=== PATIENT | female | born 1960 | race Caucasian/White ===

== ENCOUNTER 2017-10-24 16:21 | Emergency (ER) | payer OTHER, SELFPAY ==
[2017-10-24 16:35] VITALS: BP 136/74; PULSE 64; RESP 20; TEMP 36.8; O2SAT 98; BMI 40.3
--- NOTE | 2017-10-24 16:42 | HMH.EDUTC ---
[facility] [place] Disposition Clinical Impression: Low back ache Qualifiers: Chronicity: unspecified Back pain laterality: midline Sciatica presence: without sciatica Qualified Code(s): M54.5 - Low back pain Disposition: Home, Self-Care Condition on Discharge: Good Additional Instructions: Follow up with family doctor if symptoms persist Go to ER if any bowel or bladder issues or trouble having bowel movement Go to ER if worsening of pain or any life threatening complaints REturn if needed Take medication as prescribed Heating pad as adivsed in clinic today Prescriptions: Cyclobenzaprine HCl [Flexeril 10mg tablet] 5 mg PO TID #15 tab Etodolac [Etodolac 200mg Cap] 200 mg PO Q6H PRN #20 cap PRN Reason: Moderate Pain Referrals: Terrell Ayala MD [Primary Care Provider] - Time of Disposition: 17:14 Medical Decision Making - Medical Records Medical records reviewed: Yes: I reviewed the patient's medical records. Vital Signs: 10/24/17 16:35 Temperature 98.2 F Temperature Source Temporal Artery Scan Pulse Rate [Right] 64 Respiratory Rate 20 Blood Pressure [Right Arm] 136/74 Blood Pressure Mean [Right Arm] 94 Blood Pressure Source [Right Arm] Automatic Cuff Blood Pressure Position [Right Arm] Sitting 02 Sat by Pulse Oximetry 98 Oxygen Delivery Method Room Air - Lab Data Lab Results 10/24/17 16:37: Influenza Type A Ag Negative, Influenza Type B Ag Negative 10/24/17 16:42: Urine Color Dark yellow, Urine Appearance Clear, Urine pH 5.5, Ur Specific [place] 1.025, Urine Protein Trace, Urine Glucose (UA) Negative, Urine Ketones Trace, Urine Blood Negative, Urine Nitrate Negative, Urine Bilirubin 1+ A, Urine Urobilinogen 0.2, Ur Leukocyte Esterase Negative - Timmy Inquiry Pt receiving controlled substance: No Timmy was queried for this patient: No - Reevaluation(s) Time: 17:03 Reevaluation #1: Recommended xray for lower back and patient refusing at this time state that she does not feel she needs a xray that it just feels like spasms States that if pain continues she will come back and get an xray if warranted. States that pain is better now and only hurts certain ways she moved [facility] [place] HPI - General Stated complaint: Feeling bad, back & leg pain Mode of Arrival: Ambulatory Source of Information: Patient Limitations: No Limitations Description of Symptoms (Recalled from Triage Doc. by RN): LOW BACK PAIN, LEGS ACHE HEENT Symptoms (Recalled from RN notes): Yes Resp Symptoms (Recalled from RN notes): No Skin Symptoms (Recalled from RN notes): No MS Symptoms (Recalled from RN notes): No Functional Status (Recalled from RN notes): N - History of Present Illness Provider Complaint: Patient state that she began having pain in her lower back earlier today States that she don't remember doing anything to hurt it. States that it is an achy like feeling in her back and legs States that she also feels achy all over. States that pain feels katerine like a muscle spasm. - Related Data Home Medications Medication Instructions Recorded Confirmed Aspirin 81 mg PO DAILY 10/24/17 10/24/17 Lisinopril [Lisinopril 10mg Tab] 10 mg PO DAILY 10/24/17 10/24/17 hydroCHLOROthiazide [HCTZ 25mg 25 mg PO DAILY 10/24/17 10/24/17 tab] Previous Rx's Medication Instructions Recorded Cyclobenzaprine HCl [Flexeril 10mg 5 mg PO TID #15 tab 10/24/17 tablet] Etodolac [Etodolac 200mg Cap] 200 mg PO Q6H PRN #20 cap 10/24/17 Allergies Allergy/AdvReac Type Severity Reaction Status Date / Time codeine [CODEINE] Allergy Mild Verified 10/24/17 16:44 - Worker's Comp Is this a Worker's Comp case?: No [facility] History I have reviewed the patient's past medical history: Yes - *Social History Alcohol Intake: never - Psychiatric History Expresses thoughts of harming self/others: None Suicide Plan Description: No Plan ROS Obtained: Yes All systems reviewed & no additional complaints - Musculoskeletal
--- NOTE | 2017-10-24 16:45 | ED_ITS ---
[facility] Disposition Clinical Impression: Low back ache Qualifiers: Chronicity: unspecified Back pain laterality: midline Sciatica presence: without sciatica Qualified Code(s): M54.5 - Low back pain Disposition: Home, Self-Care Condition on Discharge: Good Additional Instructions: Follow up with family doctor if symptoms persist Go to ER if any bowel or bladder issues or trouble having bowel movement Go to ER if worsening of pain or any life threatening complaints REturn if needed Take medication as prescribed Heating pad as adivsed in clinic today Prescriptions: Cyclobenzaprine HCl [Flexeril 10mg tablet] 5 mg PO TID #15 tab Etodolac [Etodolac 200mg Cap] 200 mg PO Q6H PRN #20 cap PRN Reason: Moderate Pain Referrals: Terrell Ayala MD [Primary Care Provider] - Time of Disposition: 17:14 Medical Decision Making - Medical Records Medical records reviewed: Yes: I reviewed the patient's medical records. Vital Signs: 10/24/17 16:35 Temperature 98.2 F Temperature Source Temporal Artery Scan Pulse Rate [Right] 64 Respiratory Rate 20 Blood Pressure [Right Arm] 136/74 Blood Pressure Mean [Right Arm] 94 Blood Pressure Source [Right Arm] Automatic Cuff Blood Pressure Position [Right Arm] Sitting 02 Sat by Pulse Oximetry 98 Oxygen Delivery Method Room Air - Lab Data Lab Results 10/24/17 16:37: Influenza Type A Ag Negative, Influenza Type B Ag Negative 10/24/17 16:42: Urine Color Dark yellow, Urine Appearance Clear, Urine pH 5.5, Ur Specific [place] 1.025, Urine Protein Trace, Urine Glucose (UA) Negative, Urine Ketones Trace, Urine Blood Negative, Urine Nitrate Negative, Urine Bilirubin 1+ A, Urine Urobilinogen 0.2, Ur Leukocyte Esterase Negative - Timmy Inquiry Pt receiving controlled substance: No Timmy was queried for this patient: No - Reevaluation(s) Time: 17:03 Reevaluation #1: Recommended xray for lower back and patient refusing at this time state that she does not feel she needs a xray that it just feels like spasms States that if pain continues she will come back and get an xray if warranted. States that pain is better now and only hurts certain ways she moved [facility] HPI - General Stated complaint: Feeling bad, back & leg pain Mode of Arrival: Ambulatory Source of Information: Patient Limitations: No Limitations Description of Symptoms (Recalled from Triage Doc. by RN): LOW BACK PAIN, LEGS ACHE HEENT Symptoms (Recalled from RN notes): Yes Resp Symptoms (Recalled from RN notes): No Skin Symptoms (Recalled from RN notes): No MS Symptoms (Recalled from RN notes): No Functional Status (Recalled from RN notes): N - History of Present Illness Provider Complaint: Patient state that she began having pain in her lower back earlier today States that she don't remember doing anything to hurt it. States that it is an achy like feeling in her back and legs States that she also feels achy all over. States that pain feels katerine like a muscle spasm. - Related Data Home Medications Medication Instructions Recorded Confirmed Aspirin 81 mg PO DAILY 10/24/17 10/24/17 Lisinopril [Lisinopril 10mg Tab] 10 mg PO DAILY 10/24/17 10/24/17 hydroCHLOROthiazide [HCTZ 25mg 25 mg PO DAILY 10/24/17 10/24/17 tab] Previous Rx's Medication Instructions Recorded Cyclobenzaprine HCl [Flexeril 10mg 5 mg PO TID #15 tab 10/24/17 tablet
[2017-10-24 16:49] LABS: Apearance,Urine Clear (Clear); Color,Urine Dark Yellow (Yellow)
[2017-10-24 16:50] LABS: Bilirubin,Urine 1+ (Negative); Blood, Urine Negative (Negative); Glucose,Urine (UA) Negative (Negative); Ketones,Urine TRACE (Negative); PH,Urine 5.5 (5.0-8.5); Protein,Urine Trace (Negative); Specific Gravity, Urine 1.025 (1.005-1.030)
[2017-10-24 16:51] LABS: UTC Leukocyte Esterase,Urine Negative (Negative); UTC Nitrate,Urine Negative (Negative); Urobilinogen,Urine 0.2 EU/dl (0.2)
[2017-10-24 16:51] LABS: UTC Influenza A Antigen Negative (Negative); UTC Influenza B Antigen Negative (Negative)
[2017-10-24 17:21] VITALS: BP 132/87; PULSE 88; RESP 18; TEMP 36.8
== END 2017-10-24 17:22 | disposition home or self-care (01) ==
PROVIDERS: Emergency Provider Nurse Practitioner; PCP Family Medicine
DX: M54.5 Low back pain (principal); R69 Illness, unspecified
CPT/HCPCS: 81003; 87804; 99202

== ENCOUNTER 2017-11-13 18:29 | Emergency (ER) | payer OTHER, SELFPAY ==
[2017-11-13 18:41] VITALS: BP 152/91; PULSE 88; RESP 18; TEMP 36.7; O2SAT 100; BMI 37.1
--- NOTE | 2017-11-13 18:46 | HMH.EDUTC ---
[facility] [place] Clinical Impression: URI (upper respiratory infection) Qualifiers: URI type: unspecified URI Qualified Code(s): J06.9 - Acute upper respiratory infection, unspecified Disposition: Home, Self-Care Condition on Discharge: Good Instructions: Sore Throat, DI for Nasal Congestion Additional Instructions: * Monitor Temp. Tylenol and/or Ibuprofen as needed. ER if fever is no less than 101 despite alternating Tylenol and Ibuprofen * Encourage fluids, water, Gatorade, powerade, pedialyte if infant/toddler/or child * Warm salt water gargles for throat irritation *Warm fluids *Sore throat lozenges *Sleep elevated *humidifier or vaporizer Lots of rest Increase fluids, water, Gatorade, powerade *Your throat swab was sent to lab for culture. Those results area typically sent to your primary care physician. Be sure to follow up in 2-3 days if no improvement so they can review those results and treat if necessary If you dont have primary care I recommend you get one, but in the mean time you will have to return to a walk in clinic Follow up IMMEDIATELY for new or worsening of symptoms OR no noticeable improvement over the next 48-72 hours. 911 immediately for any life threatening symptoms such as chest pain or difficulty breathing Referrals: Terrell Ayala MD [Primary Care Provider] - Time of Disposition: 18:59 Medical Decision Making - Medical Records Medical records reviewed: Yes: I reviewed the patient's medical records. Vital Signs: 11/13/17 18:41 Temperature 98.1 F Temperature Source Temporal Artery Scan Pulse Rate [Right] 88 Respiratory Rate 18 Blood Pressure [Right Arm] 152/91 Blood Pressure Mean [Right Arm] 111 02 Sat by Pulse Oximetry 100 Oxygen Delivery Method Room Air - Lab Data Lab results reviewed: Yes: I reviewed the patient's lab results. Lab Results 11/13/17 18:51: Strep Scn Rapid Clinic Negative Orders (Tests/Meds): ED MEDICATIONS Discontinued Medications Generic Name Dose Route Start Last Admin Trade Name Freq PRN Reason Stop Dose Admin Ceftriaxone Sodium 1 gm 11/13/17 18:52 11/13/17 18:59 Rocephin 1gm Vial IM 11/13/17 18:53 1 gm ONCE ONE Administration Lidocaine HCl 0 ml 11/13/17 18:52 11/13/17 18:59 Lidocaine 1% 10ml Mdv IM 11/13/17 18:53 2 ml ONCE ONE Administration Methylprednisolone Sodium Succinate 125 mg 11/13/17 18:52 11/13/17 18:59 Solu-Medrol 125mg/2ml Vial IM 11/13/17 18:53 125 mg ONCE ONE Administration ORDERS Category Date Time Status Strep Screen Confirmation Stat Micro 11/13/17 18:51 Received - Timmy Inquiry Pt receiving controlled substance: No Timmy was queried for this patient: No - Reevaluation(s) Time: 19:00 Reevaluation #1: Patient was given Rocephin injection, no signs of reaction patient ready for dc home [facility] [place]PI - General Stated complaint: sore throat Mode of Arrival: Ambulatory Source of Information: Patient Limitations: No Limitations Description of Symptoms (Recalled from Triage Doc. by RN): SORE THROAT HEENT Symptoms (Recalled from RN notes): Yes Resp Symptoms (Recalled from RN notes): No Skin Symptoms (Recalled from RN notes): No MS Symptoms (Recalled from RN notes): No Functional Status (Recalled from RN notes): N - History of Present Illness Provider Complaint: Patient state that she has been having sore throat on and off now for 2 weeks States that for the last 2 days it has continued to get worse State that her mother recently had surgery and she was worried that she may have strep throat so she wanted to come and get checked out. State that she has been having sinus drainage also - Related Data Home Medications Medication Instructions Recorded Confirmed Aspirin 81 mg PO DAILY 10/24/17 10/24/17 Lisinopril [Lisinopril 10mg Tab] 10 mg PO DAILY 10/24/17 10/24/17 hydroCHLOROthiazide [HCTZ 25mg 25 mg PO DAILY 10/24/17 10/24/17 tab] Previous Rx
--- NOTE | 2017-11-13 18:49 | ED_ITS ---
[facility] [place] Disposition Clinical Impression: URI (upper respiratory infection) Qualifiers: URI type: unspecified URI Qualified Code(s): J06.9 - Acute upper respiratory infection, unspecified Disposition: Home, Self-Care Condition on Discharge: Good Instructions: Sore Throat, DI for Nasal Congestion Additional Instructions: * Monitor Temp. Tylenol and/or Ibuprofen as needed. ER if fever is no less than 101 despite alternating Tylenol and Ibuprofen * Encourage fluids, water, Gatorade, powerade, pedialyte if infant/toddler/or child * Warm salt water gargles for throat irritation *Warm fluids *Sore throat lozenges *Sleep elevated *humidifier or vaporizer Lots of rest Increase fluids, water, Gatorade, powerade *Your throat swab was sent to lab for culture. Those results area typically sent to your primary care physician. Be sure to follow up in 2-3 days if no improvement so they can review those results and treat if necessary If you don? t have primary care I recommend you get one, but in the mean time you will have to return to a walk in clinic Follow up IMMEDIATELY for new or worsening of symptoms OR no noticeable improvement over the next 48-72 hours. 911 immediately for any life threatening symptoms such as chest pain or difficulty breathing Referrals: Terrell Ayala MD [Primary Care Provider] - Time of Disposition: 18:59 Medical Decision Making - Medical Records Medical records reviewed: Yes: I reviewed the patient's medical records. Vital Signs: 11/13/17 18:41 Temperature 98.1 F Temperature Source Temporal Artery Scan Pulse Rate [Right] 88 Respiratory Rate 18 Blood Pressure [Right Arm] 152/91 Blood Pressure Mean [Right Arm] 111 02 Sat by Pulse Oximetry 100 Oxygen Delivery Method Room Air - Lab Data Lab results reviewed: Yes: I reviewed the patient's lab results. Lab Results 11/13/17 18:51: Strep Scn Rapid Clinic Negative Orders (Tests/Meds): ED MEDICATIONS Discontinued Medications Generic Name Dose Route Start Last Admin Trade Name Freq PRN Reason Stop Dose Admin Ceftriaxone Sodium 1 gm 11/13/17 18:52 11/13/17 18:59 Rocephin 1gm Vial IM 11/13/17 18:53 1 gm ONCE ONE Administration Lidocaine HCl 0 ml 11/13/17 18:52 03/06/18 18:59 Lidocaine 1% 10ml Mdv IM 11/13/17 18:53 2 ml ONCE ONE Administration Methylprednisolone Sodium Succinate 125 mg 11/13/17 18:52 11/13/17 18:59 Solu-Medrol 125mg/2ml Vial IM 11/13/17 18:53 125 mg ONCE ONE Administration ORDERS Category Date Time Status Strep Screen Confirmation Stat Micro 11/13/17 18:51 Received - Timmy Inquiry Pt receiving controlled substance: No Timmy was queried for this patient: No - Reevaluation(s) Time: 19:00 Reevaluation #1: Patient was given Rocephin injection, no signs of reaction patient ready for dc home [facility] [place] HPI - General Stated complaint: sore throat Mode of Arrival: Ambulatory Source of Information: Patient Limitations: No Limitations Description of Symptoms (Recalled from Triage Doc. by RN): SORE THROAT HEENT Symptoms (Recalled from RN notes): Yes Resp Symptoms (Recalled from RN notes): No Skin Symptoms (Recalled from RN notes): No MS Symptoms (Recalled from RN notes): No Functional Status (Recalled from RN notes): N - History of Pr
[2017-11-13 18:56] LABS: UTC Strep Screen (Rapid) Negative (Negative)
[2017-11-13 19:00] VITALS: BP 152/91; PULSE 88; RESP 18; TEMP 36.7
== END 2017-11-13 19:06 | disposition home or self-care (01) ==
PROVIDERS: Emergency Provider Nurse Practitioner; PCP Family Medicine
DX: J06.9 Acute upper respiratory infection, unspecified (principal); I10 Essential (primary) hypertension; Z79.82 Long term (current) use of aspirin; Z88.6 Allergy status to analgesic agent
CPT/HCPCS: 87880; 96372; 99202

== ENCOUNTER 2017-11-21 09:51 | Emergency (ER) | payer OTHER, SELFPAY ==
[2017-11-21 10:02] VITALS: BP 111/68; PULSE 66; RESP 18; TEMP 36.7; O2SAT 96; BMI 37.1
--- NOTE | 2017-11-21 10:08 | HMH.EDUTC ---
[facility] [place] Clinical Impression: URI (upper respiratory infection) Qualifiers: URI type: unspecified URI Qualified Code(s): J06.9 - Acute upper respiratory infection, unspecified Disposition: Home, Self-Care Condition on Discharge: Good Instructions: DI for Cough -- Adult, Sore Throat, DI for Nasal Congestion Additional Instructions: * Monitor Temp. Tylenol and/or Ibuprofen as needed. ER if fever is no less than 101 despite alternating Tylenol and Ibuprofen * Encourage fluids, water, Gatorade, powerade, pedialyte if infant/toddler/or child * Warm salt water gargles for throat irritation *Warm fluids *Sore throat lozenges *Sleep elevated *humidifier or vaporizer Lots of rest Increase fluids, water, Gatorade, powerade *Flonase 2 sprays each nostril daily but may take 2-3 days to notice improvement with it Follow up IMMEDIATELY for new or worsening of symptoms OR no noticeable improvement over the next 48-72 hours. 911 immediately for any life threatening symptoms such as chest pain or difficulty breathing Prescriptions: Azithromycin [Z-Victor M 250mg Tab] 250 mg PO UD DOSE PK #6 tab Fluticasone Propionate [Flonase 50mcg nasal spray 16gm] 2 spr NS DAILY #1 bottle predniSONE [Prednisone 20mg Tab] 20 mg PO BID #10 tab Referrals: Terrell Ayala MD [Primary Care Provider] - Time of Disposition: 10:12 Medical Decision Making - Medical Records Medical records reviewed: Yes: I reviewed the patient's medical records. - Timmy Inquiry Pt receiving controlled substance: No Timmy was queried for this patient: No Vital Signs: 11/21/17 10:02 Temperature 98.1 F Temperature Source Temporal Artery Scan Pulse Rate [Right] 66 Respiratory Rate 18 Blood Pressure [Right Arm] 111/68 Blood Pressure Mean [Right Arm] 82 Blood Pressure Source [Right Arm] Automatic Cuff Blood Pressure Position [Right Arm] Sitting 02 Sat by Pulse Oximetry 96 Oxygen Delivery Method Room Air [facility] [place] HPI - General Stated complaint: sore throat swollen Mode of Arrival: Ambulatory Source of Information: Patient Limitations: No Limitations Description of Symptoms (Recalled from Triage Doc. by RN): sore throat x2 weeks HEENT Symptoms (Recalled from RN notes): Yes Resp Symptoms (Recalled from RN notes): No Skin Symptoms (Recalled from RN notes): No MS Symptoms (Recalled from RN notes): No Functional Status (Recalled from RN notes): N - History of Present Illness Provider Complaint: Patient states that she has been having sore throat, sinus drainage and cough States that she was seen a treated about 2 weeks ago and it got better then it returned and appears worse than it was State that she is having drainage in the back of her throat from sinuses that is worse at night State that it makes her cough. - Related Data Home Medications Medication Instructions Recorded Confirmed Aspirin 81 mg PO DAILY 10/24/17 11/21/17 Lisinopril [Lisinopril 10mg Tab] 10 mg PO DAILY 10/24/17 11/21/17 hydroCHLOROthiazide [HCTZ 25mg 25 mg PO DAILY 10/24/17 11/21/17 tab] Cyclobenzaprine HCl [Flexeril 10mg 5 mg PO TID 11/21/17 11/21/17 tablet] Previous Rx's Medication Instructions Recorded Etodolac [Etodolac 200mg Cap] 200 mg PO Q6H PRN #20 cap 10/24/17 Azithromycin [Z-Victor M 250mg Tab] 250 mg PO UD DOSE PK #6 tab 11/21/17 Fluticasone Propionate [Flonase 2 spr NS DAILY #1 bottle 11/21/17 50mcg nasal spray 16gm] predniSONE [Prednisone 20mg 20 mg PO BID #10 tab 11/21/17 Tab] Allergies Allergy/AdvReac Type Severity Reaction Status Date / Time codeine [CODEINE] Allergy Mild Verified 10/24/17 16:44 - Worker's Comp Is this a Worker's Comp case?: No [facility] History I have reviewed the patient's past medical history: Yes Medical History: Reports:: Hypertension - Social History Alcohol Intake: never - Psychiatric History Expresses thoughts of harming self/others: None Suicide Plan Description: No Plan JONAH Obtai
--- NOTE | 2017-11-21 10:11 | ED_ITS ---
[facility] [place] Disposition Clinical Impression: URI (upper respiratory infection) Qualifiers: URI type: unspecified URI Qualified Code(s): J06.9 - Acute upper respiratory infection, unspecified Disposition: Home, Self-Care Condition on Discharge: Good Instructions: DI for Cough -- Adult, Sore Throat, DI for Nasal Congestion Additional Instructions: * Monitor Temp. Tylenol and/or Ibuprofen as needed. ER if fever is no less than 101 despite alternating Tylenol and Ibuprofen * Encourage fluids, water, Gatorade, powerade, pedialyte if infant/toddler/or child * Warm salt water gargles for throat irritation *Warm fluids *Sore throat lozenges *Sleep elevated *humidifier or vaporizer Lots of rest Increase fluids, water, Gatorade, powerade *Flonase 2 sprays each nostril daily but may take 2-3 days to notice improvement with it Follow up IMMEDIATELY for new or worsening of symptoms OR no noticeable improvement over the next 48-72 hours. 911 immediately for any life threatening symptoms such as chest pain or difficulty breathing Prescriptions: Azithromycin [Z-Victor M 250mg Tab] 250 mg PO UD DOSE PK #6 tab Fluticasone Propionate [Flonase 50mcg nasal spray 16gm] 2 spr NS DAILY #1 bottle predniSONE [Prednisone 20mg Tab] 20 mg PO BID #10 tab Referrals: Terrell Ayala MD [Primary Care Provider] - Time of Disposition: 10:12 Medical Decision Making - Medical Records Medical records reviewed: Yes: I reviewed the patient's medical records. - Timmy Inquiry Pt receiving controlled substance: No Timmy was queried for this patient: No Vital Signs: 11/21/17 10:02 Temperature 98.1 F Temperature Source Temporal Artery Scan Pulse Rate [Right] 66 Respiratory Rate 18 Blood Pressure [Right Arm] 111/68 Blood Pressure Mean [Right Arm] 82 Blood Pressure Source [Right Arm] Automatic Cuff Blood Pressure Position [Right Arm] Sitting 02 Sat by Pulse Oximetry 96 Oxygen Delivery Method Room Air [facility] [place] HPI - General Stated complaint: sore throat swollen Mode of Arrival: Ambulatory Source of Information: Patient Limitations: No Limitations Description of Symptoms (Recalled from Triage Doc. by RN): sore throat x2 weeks HEENT Symptoms (Recalled from RN notes): Yes Resp Symptoms (Recalled from RN notes): No Skin Symptoms (Recalled from RN notes): No MS Symptoms (Recalled from RN notes): No Functional Status (Recalled from RN notes): N - History of Present Illness Provider Complaint: Patient states that she has been having sore throat, sinus drainage and cough States that she was seen a treated about 2 weeks ago and it got better then it returned and appears worse than it was State that she is having drainage in the back of her throat from sinuses that is worse at night State that it makes her cough. - Related Data Home Medications Medication Instructions Recorded Confirmed Aspirin 81 mg PO DAILY 10/24/17 11/21/17 Lisinopril [Lisinopril 10mg Tab] 10 mg PO DAILY 10/24/17 11/21/17 hydroCHLOROthiazide [HCTZ 25mg 25 mg PO DAILY 10/24/17 11/21/17 tab] Cyclobenzaprine HCl [Flexeril 10mg 5 mg PO TID 11/21/17 11/21/17 tablet] Previous Rx's Medication Instructions Recorded Etodolac [Etodolac 200mg Cap] 200 mg PO Q6H PRN #20 cap 10/24/17 Azithromycin [Z-Victor M 250mg Tab] 250 mg PO UD DOSE PK #6 tab 11/21/17 Fluticasone Propionate [Flonase 2 spr NS
[2017-11-21 10:27] VITALS: BP 111/68; PULSE 66; RESP 18; TEMP 36.7
== END 2017-11-21 10:29 | disposition home or self-care (01) ==
PROVIDERS: Emergency Provider Nurse Practitioner; PCP Family Medicine
DX: J06.9 Acute upper respiratory infection, unspecified (principal); I10 Essential (primary) hypertension; Z79.82 Long term (current) use of aspirin
CPT/HCPCS: 99201

== ENCOUNTER → 2018-01-22 09:35 | Outpatient (CLI) | payer OTHER, SELFPAY ==
--- NOTE | 2018-01-22 09:39 | XR_ITS ---
XR ankle wt bearing LT min 3V HISTORY: ITS.REASON: ankle pain ORDERING PHYSICIAN: Luci Cnuningham DPM PATIENT AGE: 57 years COMPARISON: 07/25/2017 FINDINGS: No fracture or dislocation. No lytic or blastic change. There is normal mineralization.. The joint spaces are well-preserved. No significant degenerative/arthritic changes. No erosive changes evident. There are hypertrophic changes of the mid to dorsally as seen on the previous foot exam of 02/21/2017 IMPRESSION: Negative ankle, no acute finding Hypertrophic changes of the midfoot
--- NOTE | 2018-01-22 09:39 | XR_ITS ---
XR ankle wt bearing RT min 3V HISTORY: ITS.REASON: ankle pain ORDERING PHYSICIAN: Luci Cunningham DPM PATIENT AGE: 57 years COMPARISON: 07/25/2017 FINDINGS: No fracture or dislocation. No lytic or blastic change. There is normal mineralization.. The joint spaces are well-preserved. No significant degenerative/arthritic changes. No erosive changes evident. Faint calcification is present at the tip of the lateral malleolus and may be due to old fracture IMPRESSION: No change with no acute finding. Old avulsion fracture of the tip of the lateral malleolus
== END ==
PROVIDERS: PCP Family Medicine; Visit Provider Podiatrist
DX: M25.572 Pain in left ankle and joints of left foot (principal); M25.571 Pain in right ankle and joints of right foot
CPT/HCPCS: 73610

== ENCOUNTER → 2018-02-14 14:50 | Outpatient (CLI) | payer OTHER, SELFPAY ==
[2018-02-14 15:26] LABS: Blood Urea Nitrogen 20 mg/dL (7-18); Creatinine,Serum 0.83 mg/dL (0.55-1.02); Estimated Glomerular Filt Rate 70 ml/min (>60); GFR (African American) 85 ML/MIN (>60)
== END ==
PROVIDERS: Visit Provider Podiatrist
DX: M25.571 Pain in right ankle and joints of right foot (principal); G89.29 Other chronic pain
CPT/HCPCS: 36415; 82565; 84520

== ENCOUNTER → 2018-02-15 07:49 | Outpatient (CLI) | payer OTHER, SELFPAY ==
--- NOTE | 2018-02-15 07:50 | MR_ITS ---
MR ankle RT wo/w con Ordering Physician: Luci Cunningham DPM Patient Age: 57 years: Female HISTORY: ITS.REASON: pain, talus OCD Chronic right ankle pain. Previous avulsion fracture to the lateral malleolus. Grinding pain where fracture. Pain and swelling inferior to the lateral malleolus. Symptoms 6 months. TECHNIQUE: Multiplanar multisequence imaging pre and postcontrast . Prohance contrast 17 mL used for the postcontrast fat suppression T1 sagittal coronal and axial image set COMPARISON :Plain films right ankle 01/22/2018 FINDINGS . Ankle mortise intact with normal relationships. Cartilage appears well maintained. The dome of the talus appears intact with no osteochondral defect or notable irregularity... The medial and lateral malleolus appear intact. At the lateral ankle the anterior talofibular ligament appears slightly thickened intact but with slight willard appearance. There may been old injury reflecting such.. This structure best seen on standard T1 and STIR images. Minimal edema inflammation just inferior to the tip of the lateral malleolus. Anterior tibiofibular ligament minimal believe intact.. Corresponding posterior talofibular & tibiofibular ligaments intact. . Peroneus brevisand longus remain intact,. Note scant fluid or edema of the lateral margin of the distal calcaneus and adjacent to the peroneus longus tendon returns beneath the foot. Nonspecific but can reflect some mild inflammation here. Otherwise note minimal focal fluid collection is seen along the posterior margin the ankle overlying the posterior process of the talus . This likely reflects extension of a small joint effusion. Fluid also tracking to the posterior subtalar joint. There is also a small fluid collection of the anterior lateral aspect of the joint, along the lateral neck of the talus axial image 12... This requires correlation... Also seen on sagittal image 18 where fluid collection measures 17 mm height x 11 mm wide nonspecific is patient focally tender here. The subtalar joint appears intact with only some scant fluid at its lateral aspect, angle ofgissane region.. Sagittal slice 18 Other joints appear fairly well-maintained as well with tarsals appearing satisfactory and no remarkable arthritic features. Postcontrast images show no prominent findings. There may be some very subtle enhancement about the tip of the lateral malleolus site of old sprain or impossible avulsion tip lateral malleolus. .. IMPRESSION The ankle mortise and dome of talus appear satisfactory and intact. No osteochondral defect. Cartilage & joint space maintained Only very subtle edema and and perhaps very subtle enhancement about tip lateral malleolus may reflect site of old injury The anterior talofibular ligament appears mildly thickened and slightly grainy in appearance which may reflect old injury/sprain . minor observations discussed above, require correlation: ... Small fluid collection is seen at the posterior margin the joint about the posterior process the talus. ... Also focal fluid collection along the lateral neck of the talus....Scant fluid lateral subtalar joint
== END ==
PROVIDERS: PCP Family Medicine; Visit Provider Podiatrist
DX: M89.8X7 Other specified disorders of bone, ankle and foot (principal)
CPT/HCPCS: 73723; A9576

== ENCOUNTER → 2018-04-12 11:18 | Outpatient (CLI) | payer OTHER, SELFPAY ==
[2018-04-18 06:55] LABS: Antinuclear Antibodies, IFA Negative (.)
== END ==
PROVIDERS: Visit Provider Pediatrics
DX: L56.4 Polymorphous light eruption (principal)
CPT/HCPCS: 36415; 86038

== ENCOUNTER → 2019-05-29 12:08 | Outpatient (CLI) | payer OTHER, SELFPAY ==
[2019-05-29 13:48] LABS: Hemoglobin A1C 6.1 % (0.0-7.0)
[2019-05-29 14:32] LABS: Alanine Aminotransferase 27 U/L (12-78); Albumin Level 3.9 gm/dL (3.4-5.0); Alkaline Phosphatase 71 U/L (46-116); Anion Gap 12.5 mEq/L (5-15); Aspartate Amino Transferase 18 U/L (15-37); Bilirubin,Total 0.3 mg/dL (0.2-1.0); Blood Urea Nitrogen 25 mg/dL (7-18); Calcium 9.4 mg/dL (8.5-10.1); Carbon Dioxide 30 mmol/L (21.0-32.0); Chloride 96 mmol/L (98-107); Creatinine,Serum 1.08 mg/dL (0.55-1.02); Estimated Glomerular Filt Rate 52 ml/min (>60); GFR (African American) 62 ML/MIN (>60); Globulin 3.9 gm/dl (1.3-3.2); Glucose 104 mg/dL (74-106); Potassium 4.5 mmoL/L (3.5-5.1); Sodium 134 mmol/L (136-145); Thyroid Stimulating Hormone 1.53 uIU/ml (0.358-3.740); Total Protein,Serum 7.8 gm/dL (6.4-8.2)
[2019-05-29 15:22] LABS: Basophils # 0.1 K/mm3 (0-0.2); Eosinophils # 0.1 K/mm3 (0.0-0.4); Eosinophils % 1.6 % (0.1-12.0); Hematocrit 40.8 % (37.0-47.0); Hemoglobin 13.1 g/dL (12.2-16.2); Lymphocytes # 2.4 K/mm3 (0.7-4.5); Lymphocytes % 35.3 % (10-50); Mean Corpuscular HGB Conc 32.1 g/dL (31.8-35.4); Mean Corpuscular Hemoglobin 27.9 pg (27.0-31.2); Mean Corpuscular Volume 87.1 fl (81-99); Mean Platelet Volume 7.6 fl (7.4-10.4); Monocytes # 0.4 K/mm3 (0.1-1.0); Monocytes % 5.5 % (1.7-9.3); Neutrophils # 3.9 K/mm3 (1.8-7.8); Neutrophils % 56.6 % (37.0-80.0); Platelet Count 356 K/mm3 (142-424); Red Blood Count 4.68 M/mm3 (4.20-5.40); Red Cell Distribution Width 13.3 % (11.5-17.5); White Blood Count 6.9 K/mm3 (4.8-10.8)
== END ==
PROVIDERS: Visit Provider Nurse Practitioner Family
DX: R19.7 Diarrhea, unspecified (principal); R19.4 Change in bowel habit; R14.0 Abdominal distension (gaseous); R12 Heartburn
CPT/HCPCS: 36415; 80053; 83036; 84443; 85025

== ENCOUNTER → 2019-06-04 12:05 | Outpatient (CLI) | payer OTHER, SELFPAY ==
[2019-06-04 12:10] LABS: Adenovirus F 40/41, stool Not Detected (NotDetected); Astrovirus Not Detected (NotDetected); Campylobacter Not Detected (NotDetected); Cryptosporidium Not Detected (NotDetected); Cyclospora Cayetanesis Not Detected (NotDetected); Entamoeba histolytica Not Detected (NotDetected); Enteroaggregative E coli Not Detected (NotDetected); Enteropathogenic E coli Not Detected (NotDetected); Enterotoxigenic E coli Not Detected (NotDetected); Giardia lamblia Not Detected (NotDetected); Norovirus Not Detected (NotDetected); Plesimonas Shigalloides, PCR Not Detected (NotDetected); Rotavirus A Not Detected (NotDetected); Salmonella, PCR Not Detected (NotDetected); Sapovirus Not Detected (NotDetected); Shiga-like toxin E coli Not Detected (NotDetected); Shigella Enterovasive E coli Not Detected (NotDetected); Vibrio Cholerae Not Detected (NotDetected); Vibrio, PCR Not Detected (NotDetected); Yersinia Entercolitica, PCR Not Detected (NotDetected)
[2019-06-04 16:01] LABS: Clostridium Difficile A/B, PCR Detected (NotDetected)
== END ==
PROVIDERS: Visit Provider Nurse Practitioner Family
DX: R14.0 Abdominal distension (gaseous) (principal); R19.4 Change in bowel habit; R12 Heartburn; R19.7 Diarrhea, unspecified; A04.72 Enterocolitis due to Clostridium difficile, not specified as recurrent
CPT/HCPCS: 87507

== ENCOUNTER → 2019-07-12 12:26 | Outpatient (CLI) | payer OTHER, SELFPAY | PROVIDERS: Visit Provider Nurse Practitioner Family | DX: R19.4 Change in bowel habit (principal); R19.7 Diarrhea, unspecified ==

== ENCOUNTER → 2019-07-18 12:15 | Outpatient (CLI) | payer OTHER, SELFPAY | PROVIDERS: Visit Provider Nurse Practitioner Family | DX: R19.7 Diarrhea, unspecified (principal); R19.4 Change in bowel habit | CPT/HCPCS: 87493 ==

== ENCOUNTER → 2019-07-21 14:18 | Outpatient (CLI) | payer SELFPAY ==
--- NOTE | 2019-07-21 14:20 | CT_ITS ---
PROCEDURE: CT HEART W CALCIUM SCORE CLINICAL HISTORY: suspected cad COMPARISON: No exams were available for comparison TECHNIQUE: Axial images obtained with sagittal and coronal reformats. All CT scans at the facility use one or more dose reduction, viz: automated exposure control, ma/kV adjustment per patient size (including targeted exams where dose is matched to indication, i.e. head), or iterative reconstruction technique. FINDINGS: The coronary artery calcium score is 2 indicating minimal plaque burden and low cardiovascular disease risk. Incidental findings include small hiatal hernia. IMPRESSION: Minimal plaque burden with low cardiovascular disease risk Dictated by: Walt Shaw MD 07/21/2019 15:01 Electronically signed by Walt Shaw MD in [place] 07/21/2019 15:01
== END ==
PROVIDERS: PCP Family Medicine; Visit Provider Internal Medicine Cardiovascular Disease
DX: Z13.6 Encounter for screening for cardiovascular disorders (principal)
CPT/HCPCS: 75571

== ENCOUNTER → 2019-07-25 11:07 | Outpatient (CLI) | payer OTHER, SELFPAY ==
--- NOTE | 2019-07-25 11:10 | MM_ITS ---
PROCEDURE: MM DIG SCREENING MAMM BI W/CAD CLINICAL INDICATION: SCREENING There is no personal or family history of breast cancer. There has been a previous cyst aspiration right breast and previous biopsy left breast both for benign findings. COMPARISON: DMSB DIG MAMM-SCREEN GRACIELA from 05/05/2015 DMSB DIG MAMM-SCREEN GRACIELA W/CAD from 04/05/2017 DMDXUAVL DIG MAMM-DX UNI A/VWS-LT W/CAD from 04/16/2017 TECHNIQUE: Standard CC and MLO images were obtained. R2 CAD reviewed. FINDINGS: Scattered fibroglandular densities are seen throughout both breasts. There are 2 biopsy clips right breast. There are few benign-appearing microcalcifications in each breast. There is a stable tiny nodular benign-appearing density outer quadrant right breast. There is no suspicious lesion and no suspicious microcalcifications. IMPRESSION: Fibrofatty parenchyma with no suspicious lesions seen BI-RAD Category: 2 Benign Finding(s) FOLLOW-UP: 1YR 1 Year Follow-up (A letter has been sent to the patient regarding results of the study.) Dictated by: Dr. Fantasma Sepulveda MD 07/28/2019 10:[address] Fantasma Sepulveda MD in [place] 07/28/2019 10:08
== END ==
PROVIDERS: PCP Family Medicine; Visit Provider Family Medicine
DX: Z12.31 Encounter for screening mammogram for malignant neoplasm of breast (principal)
CPT/HCPCS: 77067

== ENCOUNTER → 2019-09-18 08:22 | Outpatient (CLI) | payer OTHER, SELFPAY ==
--- NOTE | 2019-09-18 08:24 | XR_ITS ---
PROCEDURE: XR ANKLE WT BEARING RT MIN 3V CLINICAL INDICATION: foot pain COMPARISON: ANKL3 ANKLE-LT-3 VIEWS from 07/25/2017 ANKR3 ANKLE-RT-3 VIEWS from 07/25/2017 ANKWBR3 XR ankle wt bearing RT min 3V from 01/22/2018 FINDINGS: There are minimal osteoarthritic changes of the ankle joint with suggestion of an old small avulsion at the tip of the distal fibula. IMPRESSION: Chronic changes, no acute finding Dictated by: Walt Shaw MD 09/18/2019 14:39 Electronically signed by Walt Shaw MD in [facility] 09/18/2019 14:39
--- NOTE | 2019-09-18 08:24 | XR_ITS ---
PROCEDURE: XR FOOT WT BEARING RT 3V CLINICAL INDICATION: foot pain COMPARISON: FTL3 FOOT-LT-3 VIEWS from 03/23/2016 FTR3 FOOT-RT-3 VIEWS from 03/23/2016 FTL3 FOOT-LT-3 VIEWS from 02/21/2017 FTR3 FOOT-RT-3 VIEWS from 02/21/2017 FINDINGS: No fracture or dislocation. No lytic or blastic change. There is normal mineralization. There are osteoarthritic changes at the metatarsal tarsal joint space and at the talonavicular joint and navicular cuneiform joint as well as the calcaneocuboid joint. There is good alignment. Other findings:None. IMPRESSION: Mild osteoarthritic changes. Overall no significant change from 02/21/2017 Dictated by: Walt Shaw MD 09/18/2019 14:40 Electronically signed by Walt Shaw MD in [facility] 09/18/2019 14:40
--- NOTE | 2019-09-18 08:24 | XR_ITS ---
PROCEDURE: XR ANKLE WT BEARING LT MIN 3V CLINICAL INDICATION: foot pain COMPARISON: ANKL3 ANKLE-LT-3 VIEWS from 07/25/2017 ANKR3 ANKLE-RT-3 VIEWS from 07/25/2017 ANKWBR3 XR ankle wt bearing RT min 3V from 01/22/2018 FINDINGS: No fracture or dislocation. There is a small calcaneal spur. Nonspecific calcification noted involving the anterior distal leg soft tissues IMPRESSION: Small calcaneal spur otherwise negative left ankle Dictated by: Walt Shaw MD 09/18/2019 14:38 Electronically signed by Walt Shaw MD in [place] 09/18/2019 14:38
--- NOTE | 2019-09-18 08:24 | XR_ITS ---
PROCEDURE: XR FOOT WT BEARING LT 3V CLINICAL INDICATION: foot pain COMPARISON: FTL3 FOOT-LT-3 VIEWS from 03/23/2016 FTR3 FOOT-RT-3 VIEWS from 03/23/2016 FTL3 FOOT-LT-3 VIEWS from 02/21/2017 FTR3 FOOT-RT-3 VIEWS from 02/21/2017 FINDINGS: No fracture or dislocation. Mild osteoarthritic change at the 1st metatarsophalangeal joint. Osteoarthritis also noted at the tarsal metatarsal junction worse at the 2nd and 3rd MTT joint. There is pes planus with osteoarthritis of the navicular cuneiform joint with minimal superior translation of the cuneiforms. IMPRESSION: Osteoarthritis with pes planus Dictated by: Walt Shaw MD 09/18/2019 14:42 Electronically signed by Walt Shaw MD in [place] 09/18/2019 14:42
== END ==
PROVIDERS: PCP Family Medicine; Visit Provider Podiatrist
DX: M79.672 Pain in left foot (principal); M79.671 Pain in right foot; M25.572 Pain in left ankle and joints of left foot; M25.571 Pain in right ankle and joints of right foot
CPT/HCPCS: 73610; 73630

== ENCOUNTER 2019-12-23 19:15 | Emergency (ER) | payer OTHER, SELFPAY ==
[2019-12-23 19:30] VITALS: BP 159/72; PULSE 66; RESP 16; TEMP 36.6; O2SAT 99; BMI 37.1
--- NOTE | 2019-12-23 19:37 | CT_ITS ---
PROCEDURE: CT ABDOMEN PELVIS W CON CLINICAL INDICATION: abdominal pain Abdominal pain with severe nausea and vomiting COMPARISON: No exams were available for comparison TECHNIQUE: IV Contrast: 75ML OPTIRAY 350 Oral Contrast none Axial images obtained with sagittal and coronal reformats. All CT scans at the facility use one or more dose reduction, viz: automated exposure control, ma/kV adjustment per patient size (including targeted exams where dose is matched to indication, i.e. head), or iterative reconstruction technique. FINDINGS: LOWER THORAX: Atelectatic changes are present in the lung bases. There is mild cardiomegaly ABDOMEN & PELVIS: The liver, gallbladder, spleen, adrenal glands, pancreas, and kidneys have an unremarkable appearance. No evidence of appendicitis or diverticulitis.. There are scattered colonic diverticula. There are mildly distended fluid-filled small bowel loops. There are decompressed loops in the mid to distal ileum. The small bowel loops measure up to 2.7 cm. No significant amount air is evident in the small bowel. No pelvic mass or abnormal fluid collection. There is a small umbilical hernia which contains fat. There are degenerative changes in the lumbar spine IMPRESSION: There are mildly prominent fluid-filled small bowel loops in the mid and lower abdominal region with decompressed loops distally. The findings could be related to enteritis or mild ileus. Cannot exclude the possibility of partial small bowel obstruction. Follow-up is suggested. Dictated by: Walt Shaw MD 12/24/2019 06:29 Electronically signed by Walt Shaw MD in [place] 12/24/2019 06:29
[2019-12-23 19:41] LABS: Microscopic, Urine URINE MICROSCOPIC (MICROSCOPIC)
[2019-12-23 19:44] LABS: Basophils % 0.4 % (0.1-2.0); Eosinophils # 0.2 K/mm3 (0.0-0.4); Eosinophils % 1.4 % (0.1-12.0); Hematocrit 42.8 % (37.0-47.0); Hemoglobin 13.6 g/dL (12.2-16.2); Lymphocytes # 2.6 K/mm3 (0.7-4.5); Lymphocytes % 21.1 % (10-50); Mean Corpuscular HGB Conc 31.8 g/dL (31.8-35.4); Mean Corpuscular Hemoglobin 27.6 pg (27.0-31.2); Mean Corpuscular Volume 86.9 fl (81-99); Mean Platelet Volume 7.4 fl (7.4-10.4); Monocytes # 0.5 K/mm3 (0.1-1.0); Monocytes % 4.2 % (1.7-9.3); Neutrophils # 8.9 K/mm3 (1.8-7.8); Neutrophils % 72.9 % (37.0-80.0); Platelet Count 330 K/mm3 (142-424); Red Blood Count 4.92 M/mm3 (4.20-5.40); Red Cell Distribution Width 13.8 % (11.5-17.5); White Blood Count 12.2 K/mm3 (4.8-10.8)
[2019-12-23 19:47] LABS: Appearance,Urine CLEAR (Clear); Bilirubin,Urine Negative (Negative); Blood, Urine Negative (Negative); Color,Urine YELLOW (Yellow); Glucose,Urine (UA) Negative (Negative); Ketones,Urine Negative (Negative); Leukocyte Esterase,Urine Negative (Negative); Nitrate,Urine Negative (Negative); PH,Urine 6.5 (5.0-8.5); Protein,Urine Negative (Negative); Specific Gravity, Urine 1.025 (1.005-1.030); Urobilinogen,Urine 0.2 EU/dl (0.2)
[2019-12-23 19:51] LABS: Chloride 96 mmol/L (98-107); Sodium 136 mmol/L (136-145)
[2019-12-23 19:52] LABS: Potassium 4.1 mmoL/L (3.5-5.1)
[2019-12-23 19:53] LABS: Amylase 59 U/L (30-110)
[2019-12-23 19:54] LABS: Alanine Aminotransferase 27 U/L (12-78); Alkaline Phosphatase 67 U/L (38-126); Anion Gap 16.1 mEq/L (5-15); Aspartate Amino Transferase 26 U/L (14-36); Bilirubin,Total 0.3 mg/dl (0.2-1.3); Blood Urea Nitrogen 27 mg/dl (7-17); Carbon Dioxide 28 mmol/L (22.0-30.0); Creatinine Clearance Estimated 88 mL/min (50-200); Estimated Glomerular Filt Rate 50 ml/min (>60); GFR (African American) 61 ML/MIN (>60); Lipase 81 U/L (23-300)
[2019-12-23 19:55] LABS: Albumin Level 4.7 g/dl (3.5-5.0); Albumin/Globulin Ratio 1.5 (1.1-1.8); Calcium 9.8 mg/dl (8.4-10.2); Globulin 3.2 g/dL (1.3-3.2); Glucose 138 mg/dl (74-100); Total Protein,Serum 7.9 g/dl (6.3-8.2)
[2019-12-23 20:04] LABS: Bacteria,Urine Trace /lpf; Squamous Epithelial Cell,Urine Occasional #/hpf (0-5); WBC,Urine Occasional #/hpf (0-3)
[2019-12-23 20:17] VITALS: BP 150/68; PULSE 64; RESP 16; O2SAT 99
--- NOTE | 2019-12-23 20:41 | HMH.EDNVD ---
ED Disposition Clinical Impression: Abdominal pain Qualifiers: Abdominal location: right upper quadrant Qualified Code(s): R10.11 - Right upper quadrant pain Disposition: Home, Self-Care Condition on Discharge: Good Instructions: DI for Nausea -- Adult Additional Instructions: fluids and see pcp for more testing Referrals: Terrell Ayala MD [Primary Care Provider] - - Critical Care Critical Care Time: No Attestation: On 12/23/19, the high probability of a clinically significant, sudden or life threatening deterioration of the following system(s) required my full and direct attention, intervention and personal management. The time I documented below is in addition to time spent performing reported procedures but includes the following listed in this critical care notation. Medical Decision Making - Medical Records Medical records reviewed: Yes: I reviewed the patient's medical records. - Timmy Inquiry Pt receiving controlled substance: No Vital Signs: 12/23/19 19:30 Temperature 97.8 F Temperature Source Oral Pulse Rate [Right Brachial] 66 Respiratory Rate 16 Blood Pressure [Right Arm] 159/72 H Blood Pressure Mean [Right Arm] 101 Blood Pressure Source [Right Arm] Automatic Cuff Blood Pressure Position [Right Arm] Sitting 02 Sat by Pulse Oximetry 99 Oxygen Delivery Method Room Air - Lab Data Lab results reviewed: Yes: I reviewed the patient's lab results. Lab Results 12/23/19 19:25: Urine Color Yellow, Urine Appearance Clear, Urine pH 6.5, Ur Specific Olla 1.025, Urine Protein Negative, Urine Glucose (UA) Negative, Urine Ketones Negative, Urine Blood Negative, Urine Nitrate Negative, Urine Bilirubin Negative, Urine Urobilinogen 0.2, Ur Leukocyte Esterase Negative, Urine WBC Occasional, Ur Squamous Epith Cells Occasional, Urine Bacteria Trace 12/23/19 19:35: Amylase 59, Lipase 81 12/23/19 19:35: WBC 12.2 H, RBC 4.92, Hgb 13.6, Hct 42.8, MCV 86.9, MCH 27.6, MCHC 31.8, RDW 13.8, Plt Count 330, MPV 7.4, Neut % (Auto) 72.9, Lymph % (Auto) 21.1, Jackson % (Auto) 4.2, Eos % (Auto) 1.4, Baso % (Auto) 0.4, Neut # (Auto) 8.9 H, Lymph # (Auto) 2.6, Jackson # (Auto) 0.5, Eos # (Auto) 0.2, Baso # (Auto) 0.0 12/23/19 19:35: Sodium 136, Potassium 4.1, Chloride 96 L, Carbon Dioxide 28, Anion Gap 16.1 H, BUN 27 H, Creatinine 1.10 H, Estimated Creat Clear 88, Estimated GFR 50 L, Est GFR ( Amer) 61, Glucose 138 H, Calcium 9.8, Total Bilirubin 0.3, AST 26, ALT 27, Alkaline Phosphatase 67, Total Protein 7.9, Albumin 4.7, Globulin 3.2, Albumin/Globulin Ratio 1.5 Result diagrams: 12/23/19 19:35 12/23/19 19:35 Orders (Tests/Meds): ED MEDICATIONS Generic Name Dose Route Start Last Admin Trade Name Freq PRN Reason Stop Dose Admin Sodium Chloride 1,000 mls @ 999 mls/hr 12/23/19 19:45 12/23/19 19:41 Sod Chlor 0.9% 1000ml Bag IV 12/23/19 20:45 999 mls/hr .Q1H1M RAJ Administration Sodium Chloride 8 ml 12/23/19 20:21 Sodium Chloride 0.9% 10ml Vial IV 01/22/20 20:20 NEEDED PRN dilute pepcid Discontinued Medications Generic Name Dose Route Start Last Admin Trade Name Freq PRN Reason Stop Dose Admin Famotidine 20 mg 12/23/19 20:21 12/23/19 20:22 Pepcid 20mg/2ml Vial IV 12/23/19 20:22 20 mg ONCE ONE Administration Iohexol 75 ml 12/23/19 21:11 12/23/19 21:12 Rad-Omnipaque 350 100ml Bottle IV 12/23/19 21:12 75 ml ONCE ONE Administration Metoclopramide HCl 10 mg 12/23/19 20:21 12/23/19 20:22 Reglan 10mg/2ml Vial IVP 12/23/19 20:22 10 mg ONCE ONE Administration Ondansetron HCl 4 mg 12/23/19 19:35 12/23/19 19:41 Zofran 4mg/2ml Vial IV 12/23/19 19:36 4 mg ONCE ONE Administration Promethazine HCl 12.5 mg 12/23/19 20:20 12/23/19 20:22 Phenergan 25mg/Ml 1ml Vial IV 12/23/19 20:21 12.5 mg ONCE ONE Administration Sodium Chloride 25 ml 12/23/19 20:20 12/23/19 20:21 Sod Chlor 0.9% 25ml Bag IV 12/23/19 20:21 25 ml ONCE ON
--- NOTE | 2019-12-23 21:20 | US_ITS ---
PROCEDURE: US GALLBLADDER CLINICAL INDICATION: abdominal pain Abdominal pain and vomiting COMPARISON: No exams were available for comparison FINDINGS: Pancreas: Unremarkable/Not well seen Liver: Unremarkable. There is appropriate direction of blood flow within a non dilated portal vein. Right kidney: Unremarkable appearing. No hydronephrosis. Gallbladder: No stones are evident. There is no gallbladder wall thickening. Common duct is normal in diameter. IMPRESSION: Negative gallbladder ultrasound. No stones evident. Dictated by: Walt Shaw MD 12/24/2019 07:48 Electronically signed by Walt Shaw MD in [place] 12/24/2019 07:48
--- NOTE | 2019-12-23 21:20 | PC.NURSE ---
with patients permission, pt's sister was contacted for patient update.
[2019-12-23 21:30] VITALS: BP 150/68; PULSE 60; RESP 16; O2SAT 98
--- NOTE | 2019-12-23 21:50 | PC.NURSE ---
U/s at the bedside for gallbladder u/s
--- NOTE | 2019-12-23 22:35 | PC.NURSE ---
with patients permission, pt's sister was contacted to come pick up attendant patient
[2019-12-23 23:13] VITALS: BP 148/60; PULSE 62; RESP 16; TEMP 36.6; O2SAT 99
== END 2019-12-23 23:16 | disposition home or self-care (01) ==
PROVIDERS: Emergency Medicine; Emergency Provider Emergency Medicine; PCP Family Medicine
DX: R10.11 Right upper quadrant pain (principal); E11.65 Type 2 diabetes mellitus with hyperglycemia; Z79.84 Long term (current) use of oral hypoglycemic drugs; I10 Essential (primary) hypertension; F33.1 Major depressive disorder, recurrent, moderate; Z88.6 Allergy status to analgesic agent; Z79.899 Other long term (current) drug therapy
CPT/HCPCS: 74177; 76705; 80053; 81001; 82150; 83690; 85025; 96365; 96375; 99283; 99284; J2405; Q9967

== ENCOUNTER → 2020-01-21 13:00 | Outpatient (CLI) | payer OTHER, SELFPAY ==
[2020-01-22 14:16] LABS: Covid-19 Nasal PCR Sendout Lex NOT DETECTED
== END ==
PROVIDERS: Visit Provider Internal Medicine Gastroenterology
DX: Z03.818 Encounter for observation for suspected exposure to other biological agents ruled out (principal)
CPT/HCPCS: U0004

== ENCOUNTER → 2020-04-28 17:31 | Outpatient (CLI) | payer OTHER, SELFPAY | PROVIDERS: PCP Nurse Practitioner Family; Visit Provider Nurse Practitioner Family | DX: Z03.818 Encounter for observation for suspected exposure to other biological agents ruled out (principal) | CPT/HCPCS: U0003 ==

== ENCOUNTER → 2020-07-08 17:28 | Outpatient (CLI) | payer OTHER, SELFPAY | PROVIDERS: PCP Family Medicine; Visit Provider Family Medicine | DX: Z03.818 Encounter for observation for suspected exposure to other biological agents ruled out (principal) | CPT/HCPCS: U0003 ==

== ENCOUNTER → 2021-01-11 12:04 | Outpatient (CLI) | payer OTHER, SELFPAY ==
[2021-01-11 12:26] LABS: Basophils % 0.6 % (0.1-2.0); Eosinophils # 0.2 K/mm3 (0.0-0.4); Eosinophils % 3.1 % (0.1-12.0); Hematocrit 39.4 % (37.0-47.0); Hemoglobin 13.1 g/dL (12.2-16.2); Lymphocytes # 2.2 K/mm3 (0.7-4.5); Lymphocytes % 33.3 % (10-50); Mean Corpuscular HGB Conc 33.3 g/dL (31.8-35.4); Mean Corpuscular Hemoglobin 28.4 pg (27.0-31.2); Mean Corpuscular Volume 85.1 fl (81-99); Mean Platelet Volume 7.7 fl (7.4-10.4); Monocytes # 0.5 K/mm3 (0.1-1.0); Monocytes % 7.2 % (1.7-9.3); Neutrophils # 3.7 K/mm3 (1.8-7.8); Neutrophils % 55.8 % (37.0-80.0); Platelet Count 334 K/mm3 (142-424); Red Blood Count 4.63 M/mm3 (4.20-5.40); Red Cell Distribution Width 13.8 % (11.5-17.5); White Blood Count 6.7 K/mm3 (4.8-10.8)
--- NOTE | 2021-01-11 12:30 | ECG_ITS ---
APPROVED REPORT Exam: Resting ECG HR:54 bpm ECG Measurements Heart Rate 54 AXES ME 188 P 46 QRSd 84 QRS 79 QT 420 T 49 QTc 398 Conclusion Sinus bradycardia Otherwise normal ECG Electronically signed by : Santiago Marquez, 01/12/2021 16:58:57
[2021-01-11 12:59] LABS: Coronavirus 19 IgG Antibody Positive (Negative); Coronavirus 19 IgM Antibody Negative (Negative)
== END ==
PROVIDERS: Visit Provider Otolaryngology
DX: Z01.818 Encounter for other preprocedural examination (principal); Z20.822 Contact with and (suspected) exposure to COVID-19; L98.9 Disorder of the skin and subcutaneous tissue, unspecified
CPT/HCPCS: 36415; 85025; 86328; 93005

== ENCOUNTER 2021-01-13 07:06 | Day surgery (SDC) | payer OTHER, SELFPAY ==
[2021-01-13 07:19] VITALS: BP 133/76; PULSE 69; RESP 16; TEMP 36.9; O2SAT 93; BMI 40.3
[2021-01-13 08:17] VITALS: BP 147/62; PULSE 68; RESP 16; TEMP 36.5; O2SAT 95
--- NOTE | 2021-01-13 08:20 | P.OP_ITS ---
Date of procedure: 01/13/21 Pre-op Diagnosis:: 1. 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 Neoplasm right cheek 1.8 cm inferior Post-op Diagnosis:: same Procedure performed:: 1. Excision of neoplasm right cheek superior 2.5 cm with tissue rearrangement geometric plastic repair 2. Excision of neoplasm right cheek inferior 1.8 cm with simple repair Surgeon:: Alexandre Castellanos MD [employer]IAN:: Other (Bhupinder Roberson) Anesthesia: MAC Estimated blood loss (mL): 5 Operative findings:: same Operative note:: With the patient under MAC anesthesia the right side of the face was prepped and draped the eyes were protected with Steri-Strips the perilesional areas were infiltrated with a total of 5 cc of 2% lidocaine containing epinephrine.. The right superior cheek lesion was marked out it measured 2.5 cm, the dillon out was incised and the lesion was excised and submitted. Anterior and posterior incisions were made bleeding was stopped with bipolar cautery. Flaps were elevated and a tissue rearrangement geometric plastic repair was done with interrupted 5-0 nylon sutures. A Dermabond dressing was applied. The inferior right cheek lesion measured 1.8 cm. The dillon out was incised and the lesion was excised and submitted. Bleeding was stopped with bipolar cautery. A simple repair was done with interrupted 5-0 nylon sutures. A Dermabond dressing was applied and the dot dressings were applied. Patient was sent to recovery in good general condition. Condition: stable Disposition: PACU Complications:: none
[2021-01-13 08:27] VITALS: BP 154/69; PULSE 64; RESP 18; O2SAT 91
[2021-01-13 08:37] VITALS: BP 144/86; PULSE 64; RESP 16; O2SAT 92
[2021-01-13 08:47] VITALS: BP 151/80; PULSE 67; RESP 18; O2SAT 93
[2021-01-13 09:10] VITALS: BP 153/71; PULSE 65; RESP 18; TEMP 36.5; O2SAT 95
--- NOTE | 2021-01-13 13:19 | P.PN_ITS ---
[facility] Anesthesia Checklist - Patient Identification Patient Identification: Arm Band - Structural Data Admitted From: Home Planned Operative Procedure/s: Excision right cheek lesions x 2 Consent for Planned Operative Procedure(s) Verified: Yes Verified Documents: Surgical Consent, History and Physical - NPO Status Verified Time NPO: 00:00 - Additional verifications Anesthesia Reactions: No Hx Blood Transfusions: No Blood Transfusion Reaction: No - Airway Assessment C-Spine Mobility Assessed: Yes TMJ Mobility Assessed: Yes Dentition: Good Dentition - Neurological Assessment Level of Consciousness: Awake, Alert - Anesthesia Plan Anesthesia Risk discussed: Yes Anesthesia Plan: Verified ASA Class: II Anesthesia Type: MAC [facility] History Medical History: Reports:: Cancer (SKIN CANCER), Depression, Hypertension Denies:: Diabetes Mellitus Type 1, Diabetes Mellitus Type 2, Internal Pacemaker, MRSA, Seizures *Have you ever received a pneumonia vaccine?: No *Have you received a flu vaccine this season?: Yes Other Medical History: Reports: Arthritis. Denies: Blood Transfusion Reaction Anesthesia experience/problems:: None Laterality Cases: Left: Lumpectomy Other Surgeries: Yes: No Previous Surgery. No: Pacemaker Amputation: No Fractures: Yes (Nose,4 fingers) - *Social History Last grade of school completed: Advanced degree Smoking Status: Never smoker Alcohol Intake: current Alcohol Intake Frequency:: 0-2 drinks per day Substance Use Type: denies use *Occupational Status:: employed Housing: house Household Members: none *Travel in the last 8 weeks: None - Psychiatric History Pschychiatric History:: Reports:: Depression Family Hx:: Cancer, Hyperlipidemia, Hypertension, Stroke
[2021-01-13 13:23] LABS: POC Glucose,Bedside 102 (70-110)
== END 2021-01-13 09:10 | disposition home or self-care (01) ==
LOC: OR 07:07
PROVIDERS: PCP Family Medicine; Visit Provider Otolaryngology
PROC: (CPT 14040; principal; 2021-01-13 07:30)
DX: C44.329 Squamous cell carcinoma of skin of other parts of face (principal); R23.8 Other skin changes; F32.9 Major depressive disorder, single episode, unspecified; I10 Essential (primary) hypertension; M19.90 Unspecified osteoarthritis, unspecified site; Z87.39 Personal history of other diseases of the musculoskeletal system and connective tissue; Z80.9 Family history of malignant neoplasm, unspecified; Z82.49 Family history of ischemic heart disease and other diseases of the circulatory system; Z83.438 Family history of other disorder of lipoprotein metabolism and other lipidemia; Z82.3 Family history of stroke; Z79.82 Long term (current) use of aspirin; Z79.899 Other long term (current) drug therapy
CPT/HCPCS: 14040; 11442; 82962; 96374; 96375

== ENCOUNTER → 2021-02-16 16:50 | Outpatient (CLI) | payer OTHER, SELFPAY ==
--- NOTE | 2021-02-16 16:52 | MM_ITS ---
PROCEDURE INFORMATION: Exam: MG Screening 3D Mammography Exam date and time: 02/16/2021 4:52 PM Age: 60 years old Clinical indication: screening mammogram TECHNIQUE: Imaging protocol: Screening tomosynthesis and 2D mammography including computer-aided detection (CAD) when performed. COMPARISON: 1. MG MM DIG SCREENING MAMM BI W/CAD 07/25/2019 11:15 AM 2. MG DMDXUAVL DIG MAMM-DX UNI A/VWS-LT W/CAD 04/16/2017 2:08 PM 3. MG DMSB DIG MAMM-SCREEN GRACIELA W/CAD 04/05/2017 8:28 AM 4. MG DMSB DIG MAMM-SCREEN GRACIELA 05/05/2015 2:02 PM FINDINGS: MAMMOGRAPHY: Breast composition: There are scattered areas of fibroglandular density. Mass: None. Architectural distortion: There are several right-sided metallic biopsy clips. Calcifications: No new or suspicious calcifications are present Asymmetric density: No new or suspicious asymmetric density is present Skin thickening: None. Axillary adenopathy: None. IMPRESSION: No mammographic evidence of malignancy. Recommend annual screening mammography unless otherwise clinically indicated. ASSESSMENT: BI-RADS category 2: Benign
== END ==
PROVIDERS: PCP Family Medicine; Visit Provider Family Medicine
DX: Z12.31 Encounter for screening mammogram for malignant neoplasm of breast (principal)
CPT/HCPCS: 77063; 77067

== ENCOUNTER 2021-08-07 12:24 | Emergency (ER) | payer OTHER, SELFPAY ==
[2021-08-07 12:55] VITALS: BP 113/69; PULSE 69; RESP 19; TEMP 37.1; O2SAT 96; BMI 38.7
[2021-08-07 13:15] LABS: UTC Influenza A Antigen Negative (Negative)
[2021-08-07 13:16] LABS: UTC Influenza B Antigen Negative (Negative)
--- NOTE | 2021-08-07 13:22 | HMH.EDUTC ---
[facility] [place] Clinical Impression: Sinusitis Qualifiers: Sinusitis location: unspecified location Chronicity: unspecified Qualified Code(s): J32.9 - Chronic sinusitis, unspecified Disposition: Home, Self-Care Condition on Discharge: Good Instructions: Sinusitis, DI for Sinusitis, Amoxicillin and Clavulanic Acid Additional Instructions: *Monitor Temp, Over the counter Motrin or Tylenol as directed/as needed Tylenol every 4 hours and Motrin every 6 hours (as long as your family doctor has told you that you can take it) for fever or pain. and straight to ER if unable to lower temp less than 101.0 after medication given *Warm salt water gargles may help to soothe the throat *Throat Lozenges *Warm fluids like tea with honey may help to soothe the throat *Sleep elevated *Humidifier/Vaporizer *Flonase 2 sprays in each nostril daily but be aware that it may take 2-3 days before you notice improvement Take medication as prescribed Follow up IMMEDIATELY for new or worsening symptoms or no Noticeable improvement over the next 48-72 hours. 911 for difficulty breathing or swallowing Prescriptions: Amoxicillin/Potassium Clav [Augmentin 875-125 Tablet] 1 tab PO Q12H 7 Days #14 tab Transmission Status[id number] methylPREDNISolone [Medrol 4mg tab] 4 mg PO DIRECTED #21 tab Transmission Status: Pending to [id number] Referrals: Terrell Ayala MD [Primary Care Provider] - As needed Time of Disposition: 13:37 Medical Decision Making - Timmy Inquiry Pt receiving controlled substance: No Timmy was queried for this patient: No Vital Signs: 08/07/21 12:55 Temperature 98.7 F Temperature Source Oral Pulse Rate [Left Brachial] 69 Respiratory Rate 19 Blood Pressure [Left Arm] 113/69 Blood Pressure Mean [Left Arm] 83 Blood Pressure Source [Left Arm] Automatic Cuff Blood Pressure Position [Left Arm] Sitting 02 Sat by Pulse Oximetry 96 Oxygen Delivery Method Room Air - Lab Data Lab results reviewed: Yes: I reviewed the patient's lab results. Lab Results 08/07/21 13:00: Influenza Type A Ag Negative, Influenza Type B Ag Negative Medical Decision Narrative: Patient states that she has taken Augmentin and Medrol in the past without complications or reactions [facility] [place] - General Stated complaint: right ear ache, stiff neck, body aches Time Seen by Provider: 08/07/21 13:22 Mode of Arrival: Ambulatory Source of Information: Patient Limitations: No Limitations Description of Symptoms (Recalled from Triage Doc. by RN): PATIENT C/O RIGHT EAR ACHE, NASAL CONGESTION, AND BODY ACHES X 2 WEEKS. REPORTS SHE DID HAVE SOME NAUSEA AND VOMITING YESTERDAY. SHE TOOK AN AT HOME COVID TEST TODAY AND IT WAS NEGATIVE HEENT Symptoms (Recalled from RN notes): Yes Resp Symptoms (Recalled from RN notes): Yes Skin Symptoms (Recalled from RN notes): No MS Symptoms (Recalled from RN notes): No Functional Status (Recalled from RN notes): WNL - History of Present Illness Provider Complaint: Patient states that she has not felt well for about 2 weeks States that she has been having sinus pain and pressure along with pain in her right ear, sore scratchy throat, body aches, headache and chills States that she took an at home COVID test and it was negative States that she had vomiting and diarrhea on Sunday but not had any since States that she came in to get it checked - Related Data Home Medications Medication Instructions Recorded Confirmed Aspirin 81 mg PO DAILY 10/24/17 08/07/21 Nebivolol HCl [Bystolic] 5 mg PO DAILY 08/07/21 08/07/21 Sertraline HCl [Zoloft 50mg tablet] 50 mg PO DAILY 08/07/21 08/07/21 hydroCHLOROthiazide [HCTZ 25mg 25 mg PO DAILY 08/07/21 08/07/21 tab] lisinopriL [Lisinopril] 10 mg PO DAILY 08/07/21 08/07/21 Previous Rx's Medication Instructions Recorded Amoxicillin/Potassium Clav 1 tab PO Q12H 7 Days #14 tab 08/07/21 [Augmentin 875-125 Tablet] methylPRED
[2021-08-07 13:40] VITALS: BP 113/69; PULSE 69; RESP 19; TEMP 37.1; O2SAT 96
== END 2021-08-07 13:46 | disposition home or self-care (01) ==
PROVIDERS: Emergency Provider Nurse Practitioner; PCP Family Medicine
DX: J32.9 Chronic sinusitis, unspecified (principal); F33.1 Major depressive disorder, recurrent, moderate; I10 Essential (primary) hypertension; E11.9 Type 2 diabetes mellitus without complications; Z88.5 Allergy status to narcotic agent
CPT/HCPCS: 87804; 99202; G0463

== ENCOUNTER 2022-01-09 14:10 | Emergency (ER) | payer OTHER, SELFPAY ==
[2022-01-09 15:59] VITALS: BP 137/49; PULSE 65; RESP 18; TEMP 36.9; O2SAT 96; BMI 40.3
[2022-01-09 16:05] LABS: UTC Influenza A Antigen Negative (Negative); UTC Influenza B Antigen Negative (Negative)
--- NOTE | 2022-01-09 16:28 | HMH.EDUTC ---
[facility] [place] Disposition Clinical Impression: Viral syndrome Pharyngitis Qualifiers: Pharyngitis/tonsillitis etiology: unspecified etiology Qualified Code(s): J02.9 - Acute pharyngitis, unspecified Disposition: Home, Self-Care Condition on Discharge: Good Instructions: Influenza, DI for Influenza -- Adult Additional Instructions: Drink plenty of fluids. Take tylenol or ibuprofen for pain or fever. Take the medications as directed. Follow up with your regular doctor. GO TO THE ER FOR ANY WORSENING SYMPTOMS Prescriptions: Ondansetron [Zofran 4mg ODT] 4 mg PO Q8HP PRN #12 tab PRN Reason: Nausea Transmission Status: Received by [facility] Benzonatate [Benzonatate 100mg cap] 100 mg PO TIDP PRN #30 cap PRN Reason: Cough Transmission Status: Received by [facility] Oseltamivir Phosphate [Tamiflu 75mg Capsule] 75 mg PO BID #10 cap Transmission Status: Received by [facility] Referrals: Kely Booth PA [Primary Care Provider] - Forms: Work/School Release Time of Disposition: 17:19 Medical Decision Making - Medical Records Medical records reviewed: No: I reviewed the patient's medical records. - Timmy Inquiry Pt receiving controlled substance: No Vital Signs: 01/09/22 15:59 01/09/22 17:31 Temperature 98.4 F 98.4 F Temperature Source Oral Pulse Rate 65 Pulse Rate [Left] 65 Respiratory Rate 18 18 Blood Pressure 137/49 L Blood Pressure [Right Arm] 137/49 L Blood Pressure Mean [Right Arm] 78 02 Sat by Pulse Oximetry 96 - Lab Data Lab results reviewed: Yes: I reviewed the patient's lab results. Lab Results 01/09/22 15:46: Influenza Type A Ag Negative, Influenza Type B Ag Negative Orders (Tests/Meds): ED MEDICATIONS Discontinued Medications Generic Name Dose Route Start Last Admin Trade Name Freq PRN Reason Stop Dose Admin Methylprednisolone Sodium Succinate 125 mg 01/09/22 17:13 01/09/22 17:19 Methylprednisolone Sod Succ 125mg Vial IM 01/09/22 17:14 125 mg ONCE ONE Administration [facility] [place] HPI - General Stated complaint: flu exposure Time Seen by Provider: 01/09/22 16:28 Mode of Arrival: Ambulatory Source of Information: Patient Limitations: No Limitations Description of Symptoms (Recalled from Triage Doc. by RN): flu like symptoms - sore throat, ear ache,chills,body ache. started yesterday HEENT Symptoms (Recalled from RN notes): Yes Resp Symptoms (Recalled from RN notes): Yes Skin Symptoms (Recalled from RN notes): No MS Symptoms (Recalled from RN notes): No Functional Status (Recalled from RN notes): wnl - History of Present Illness Provider Complaint: She states that she has been exposed to influenza about 2 to 3 days ago. Today she started having body aches, chills, a scratchy sore throat. - Related Data Home Medications Medication Instructions Recorded Confirmed Aspirin 81 mg PO DAILY 10/24/17 08/07/21 Previous Rx's Medication Instructions Recorded Amoxicillin/Potassium Clav 1 tab PO Q12H 7 Days #14 tab 08/07/21 [Augmentin 875-125 Tablet] methylPREDNISolone [Medrol 4mg 4 mg PO DIRECTED #21 tab 08/07/21 tab] nebivolol 5 mg tablet 5 mg PO DAILY #90 tab 09/22/21 hydrochlorothiazide 25 mg tablet See Rx Instructions .ROUTE 01/02/22 .COMPLEX #90 tablet lisinopril 10 mg tablet See Rx Instructions .ROUTE 01/02/22 .COMPLEX #90 tablet sertraline 50 mg tablet See Rx Instructions .ROUTE 01/02/22 .COMPLEX #90 tab Benzonatate [Benzonatate 100mg 100 mg PO TIDP PRN #30 cap 01/09/22 cap] Ondansetron [Zofran 4mg ODT] 4 mg PO Q8HP PRN #12 tab 01/09/22 Oseltamivir Phosphate [Tamiflu 75 mg PO BID #10 cap 01/09/22 75mg Capsule] Allergies Allergy/AdvReac Type Severity Reaction Status Date / Time codeine [CODEINE] Allergy Mild Verified 01/09/22 16:04 - Worker's Comp Is this a Worker's Comp case?: No [facility] History - Hepatitis A Screen Attestation state
[2022-01-09 17:31] VITALS: BP 137/49; PULSE 65; RESP 18; TEMP 36.9
== END 2022-01-09 17:31 | disposition home or self-care (01) ==
PROVIDERS: Emergency Provider Nurse Practitioner Family; PCP Physician Assistant
DX: J02.9 Acute pharyngitis, unspecified (principal); B34.9 Viral infection, unspecified; E11.9 Type 2 diabetes mellitus without complications; I10 Essential (primary) hypertension; Z88.5 Allergy status to narcotic agent
CPT/HCPCS: 87804; 96372; 99213; G0463

== ENCOUNTER 2022-05-06 10:37 | Emergency (ER) | payer OTHER, SELFPAY ==
[2022-05-06 11:18] VITALS: BP 168/66; PULSE 68; RESP 16; TEMP 37.1; O2SAT 97; BMI 40.3
--- NOTE | 2022-05-06 12:00 | EXP.UTC ---
Discharge Plan Disposition Patient Disposition: Home, Self-Care Condition: Good Chief Complaint: Abdominal Pain Prescriptions Prescriptions: New omeprazole 40 mg capsule,delayed release(DR/EC) 40 mg PO DAILY Qty: 90 3RF promethazine 25 mg tablet 25 mg PO TID PRN (Reason: nausea and vomiting) Qty: 30 1RF No Action nebivolol 5 mg tablet 5 mg PO DAILY Qty: 90 3RF lisinopril 10 mg tablet See Rx Instructions .ROUTE .COMPLEX Qty: 90 4RF Dose Instruction: TAKE ONE TABLET BY MOUTH EVERY DAY Rx Instructions: TAKE ONE TABLET BY MOUTH EVERY DAY hydrochlorothiazide 25 mg tablet See Rx Instructions .ROUTE .COMPLEX Qty: 90 4RF Dose Instruction: TAKE ONE TABLET BY MOUTH EVERY DAY FOR FLUID Rx Instructions: TAKE ONE TABLET BY MOUTH EVERY DAY FOR FLUID sertraline 50 mg tablet See Rx Instructions .ROUTE .COMPLEX Qty: 90 4RF Dose Instruction: TAKE ONE TABLET BY MOUTH EVERY DAY FOR ANXIETY/DEPRESSION Rx Instructions: TAKE ONE TABLET BY MOUTH EVERY DAY FOR ANXIETY/DEPRESSION aspirin 81 MG tablet,chewable 81 mg PO DAILY methylprednisolone 4 MG tablet 4 mg PO DIRECTED Qty: 21 0RF Rx Instructions: Take as directed on package instructions amoxicillin-pot clavulanate 1 EACH tablet 1 tab PO Q12H 7 Days Qty: 14 0RF oseltamivir 75 MG capsule 75 mg PO BID Qty: 10 0RF ondansetron 4 MG tablet,disintegrating 4 mg PO Q8HP PRN (Reason: Nausea) Qty: 12 0RF benzonatate 100 MG capsule 100 mg PO TIDP PRN (Reason: Cough) Qty: 30 0RF Referrals Follow up/Referrals: Ede Phillips MD [Primary Care Provider] - See instructions Activity Restrictions/Add. Instructions Additional Instructions/Restrictions: We will try to get RUQ US Sunday morning Clinical Impressions Clinical Impression: Epigastric abdominal pain, Vomiting Discharge ED Provider: Kely Booth [facility] General Chief complaint: Abdominal Pain Stated complaint: gallbladder pain Mode of Arrival: Ambulatory Source of Information: Patient Limitations: No Limitations Time Seen by Provider: 05/06/22 11:55 Description of Symptoms (Recalled from Triage Doc. by RN): patient comes in with coplaints of heartburn, gas in her upper abdomen. patient thought it may be her gallbladder. pt states these episodes have been going on for a while, but have recently become more frequent. HEENT Symptoms (Recalled from RN notes): No Resp Symptoms (Recalled from RN notes): No Skin Symptoms (Recalled from RN notes): No MS Symptoms (Recalled from RN notes): No Functional Status (Recalled from RN notes): n/a History of Present Illness Provider Complaint: Patient presents with right upper quadrant pain, epigastric pain, heartburn, vomiting. Has had off and on for a year or two. Has had 5 or 6 episodes where she gets RUQ pain and vomits profusely. It does not seem to matter what she eats or if she doesn't eat. No fever. No diarrhea. Takes Tums almost daily Onset (ago): year(s) (2) Location: abdomen Radiation: flank (right) Severity: moderate Quality: stabbing and sharp Consistency: intermittent Relieving factors: none Exacerbating factors: none Associated symptoms: denies other symptoms Treatments prior to arrival: other (TUMS) Related Data Home Medications Medication Instructions Recorded Confirmed aspirin 81 mg chewable tablet 81 mg PO DAILY Heart disease 10/24/17 08/07/21 Previous Rx's Medication Instructions Recorded amoxicillin 875 mg-potassium 1 tab PO Q12H 7 days #14 tabs 08/07/21 clavulanate 125 mg tablet methylprednisolone 4 mg tablet 4 mg PO DIRECTED #21 tabs 08/07/21 nebivolol 5 mg tablet 5 mg PO DAILY Hypertension #90 tabs 09/22/21 hydrochlorothiazide 25 mg tablet See Rx Instructions .Route 01/02/22 .COMPLEX #90 tabs lisinopril 10 mg tablet See Rx Instructions .Route 01/02/22 .COMPLEX #90 tabs sertraline 50 mg tablet See Rx Instructions .Route
[2022-05-06 12:06] LABS: Basophils # 0.1 K/mm3 (0-0.2); Basophils % 1.7 % (0.1-2.0); Eosinophils # 0.1 K/mm3 (0.0-0.4); Eosinophils % 2.3 % (0.1-12.0); Hematocrit 42.4 % (37.0-47.0); Hemoglobin 13.6 g/dL (12.2-16.2); Lymphocytes # 1.8 K/mm3 (0.7-4.5); Lymphocytes % 27.6 % (10-50); Mean Corpuscular Hemoglobin 28.2 pg (27.0-31.2); Mean Corpuscular Volume 88.3 fl (81-99); Monocytes # 0.4 K/mm3 (0.1-1.0); Monocytes % 6.9 % (1.7-9.3); Neutrophils # 3.9 K/mm3 (1.8-7.8); Neutrophils % 61.6 % (37.0-80.0); Platelet Count 330 K/mm3 (142-424); Red Blood Count 4.81 M/mm3 (4.20-5.40); Red Cell Distribution Width 13.5 % (11.5-17.5); White Blood Count 6.4 K/mm3 (4.8-10.8)
[2022-05-06 12:17] LABS: Alanine Aminotransferase 24 U/L (12-78); Albumin Level 4.1 g/dl (3.5-5.0); Albumin/Globulin Ratio 1.3 (1.1-1.8); Alkaline Phosphatase 91 U/L (38-126); Amylase 65 U/L (30-110); Anion Gap 8.3 mEq/L (5-15); Aspartate Amino Transferase 28 U/L (14-36); Bilirubin,Total 0.2 mg/dl (0.2-1.3); Blood Urea Nitrogen 12 mg/dl (7-17); Calcium 9.5 mg/dl (8.4-10.2); Carbon Dioxide 32 mmol/L (22.0-30.0); Chloride 102 mmol/L (98-107); Creatinine Clearance Estimated 102 mL/min (50-200); Estimated Glomerular Filt Rate 84 ml/min (>60); GFR (African American) 102 ML/MIN (>60); Globulin 3.2 g/dL (1.3-3.2); Glucose 122 mg/dl (74-100); Lipase 62 U/L (23-300); Potassium 4.3 mmoL/L (3.5-5.1); Sodium 138 mmol/L (136-145); Total Protein,Serum 7.3 g/dl (6.3-8.2)
[2022-05-06 12:37] VITALS: BP 168/66; PULSE 68; RESP 16; TEMP 37.1
== END 2022-05-06 12:39 | disposition home or self-care (01) ==
PROVIDERS: Emergency Provider Physician Assistant; PCP Emergency Medicine
DX: R10.13 Epigastric pain (principal); R11.10 Vomiting, unspecified; Z79.899 Other long term (current) drug therapy; Z88.6 Allergy status to analgesic agent
CPT/HCPCS: 36415; 80053; 82150; 83690; 85025; 99212; G0463

== ENCOUNTER → 2022-05-22 09:35 | Outpatient (CLI) | payer OTHER, SELFPAY ==
--- NOTE | 2022-05-22 09:40 | US_ITS ---
FINAL REPORT CLINICAL HISTORY: RUQ pain COMPARISON: December 23, 2019 FINDINGS: Sonographic images of the right upper quadrant were obtained. The pancreas is partially obscured.The liver has an unremarkable appearance.There is sludge within the gallbladder without evidence of gallstones.There is no evidence of biliary ductal dilatation.The common duct measures 3 mm. Limited images of the right kidney are unremarkable. IMPRESSION: Sludge within the gallbladder. Otherwise unremarkable right upper quadrant ultrasound. Reviewed, Interpreted and Dictated by Kye Ochoa III, MD Transcribed by Vanessa Wiggins Authenticated and [facility]
== END ==
PROVIDERS: PCP Physician Assistant; Visit Provider Physician Assistant
DX: R10.11 Right upper quadrant pain (principal); R11.2 Nausea with vomiting, unspecified
CPT/HCPCS: 76705

== ENCOUNTER → 2023-02-07 23:12 | Outpatient (CLI) | payer OTHER, SELFPAY ==
[2023-02-07 13:36] LABS: Basophils % 0.6 % (0.1-2.0); Eosinophils # 0.1 K/mm3 (0.0-0.4); Eosinophils % 1.7 % (0.1-12.0); Hematocrit 41.5 % (37.0-47.0); Hemoglobin 13.5 g/dL (12.2-16.2); Lymphocytes # 2.1 K/mm3 (0.7-4.5); Lymphocytes % 32.6 % (10-50); Mean Corpuscular HGB Conc 32.6 g/dL (31.8-35.4); Mean Corpuscular Hemoglobin 28.2 pg (27.0-31.2); Mean Corpuscular Volume 86.4 fl (81-99); Mean Platelet Volume 7.8 fl (7.4-10.4); Monocytes # 0.5 K/mm3 (0.1-1.0); Monocytes % 6.8 % (1.7-9.3); Neutrophils # 3.8 K/mm3 (1.8-7.8); Neutrophils % 58.3 % (37.0-80.0); Platelet Count 344 K/mm3 (142-424); Red Cell Distribution Width 13.1 % (11.5-17.5); White Blood Count 6.5 K/mm3 (4.8-10.8)
[2023-02-07 14:12] LABS: Alanine Aminotransferase 28 U/L (12-78); Albumin Level 4.3 g/dl (3.5-5.0); Albumin/Globulin Ratio 1.7 (1.1-1.8); Alkaline Phosphatase 82 U/L (38-126); Anion Gap 14.5 mEq/L (5-15); Aspartate Amino Transferase 33 U/L (14-36); Bilirubin,Total 0.6 mg/dl (0.2-1.3); Blood Urea Nitrogen 13 mg/dl (7-17); Calcium 9.3 mg/dl (8.4-10.2); Carbon Dioxide 28 mmol/L (22.0-30.0); Chloride 94 mmol/L (98-107); Chol/HDL Ratio 2.7 (1-3.5); Cholesterol 168 mg/dl (140-200); Estimated Glomerular Filt Rate 84 ml/min (>60); GFR (African American) 102 ML/MIN (>60); Globulin 2.6 g/dL (1.3-3.2); Glucose 98 mg/dl (74-100); HDL Cholesterol 63 mg/dl (40-60); Potassium 4.5 mmoL/L (3.5-5.1); Sodium 132 mmol/L (136-145); Total Protein,Serum 6.9 g/dl (6.3-8.2); Triglycerides 127 mg/dl (30-150); VLDL Cholesterol 25 mg/dL (0-40)
[2023-02-07 14:23] LABS: Direct LDL Cholesterol 72.87 mg/dL (100-129)
[2023-02-07 14:31] LABS: 25-OH Vitamin D, Total 13.4 ng/mL (30-100)
[2023-02-07 14:43] LABS: Thyroid Stimulating Hormone 1.14 uIU/mL (0.465-4.68)
== END ==
PROVIDERS: PCP Physician Assistant; Visit Provider Physician Assistant
DX: I10 Essential (primary) hypertension (principal); E55.9 Vitamin D deficiency, unspecified; E88.81 Metabolic syndrome and other insulin resistance; E66.9 Obesity, unspecified; Z68.41 Body mass index [BMI] 40.0-44.9, adult
CPT/HCPCS: 80053; 80061; 82306; 84443; 85025

== ENCOUNTER → 2023-02-13 17:02 | Outpatient (CLI) | payer OTHER, SELFPAY ==
--- NOTE | 2023-02-13 17:04 | MM_ITS ---
PROCEDURE INFORMATION: Exam: MG Bilateral Screening 3D Mammography Exam date and time: 02/13/2023 4:54 PM Age: 62 years old Clinical indication: Screening. No family history of breast cancer. TECHNIQUE: Imaging protocol: Bilateral Screening tomosynthesis and 2D mammography including computer-aided detection (CAD) when performed. COMPARISON: 1. MG MM DIG SCREENING MAMM BI W/CAD 02/16/2021 4:52 PM 2. MG MM DIG SCREENING MAMM BI W/CAD 07/25/2019 11:15 AM 3. MG DMDXUAVL DIG MAMM-DX UNI A/VWS-LT W/CAD 04/16/2017 2:08 PM 4. MG DMSB DIG MAMM-SCREEN GRACIELA W/CAD 04/05/2017 8:28 AM FINDINGS: MAMMOGRAPHY: Breast composition: There are scattered areas of fibroglandular density. Mass: None. Architectural distortion: None. Calcifications: No suspicious calcifications. Asymmetric density: None. Skin thickening: None. Axillary adenopathy: None. Other: Right biopsy clips. IMPRESSION: No mammographic evidence of malignancy. Annual screening is recommended unless otherwise clinically indicated. ASSESSMENT: BI-RADS Category 2: Benign
== END ==
PROVIDERS: PCP Physician Assistant; Visit Provider Physician Assistant
DX: Z12.31 Encounter for screening mammogram for malignant neoplasm of breast (principal)
CPT/HCPCS: 77063; 77067

== ENCOUNTER 2023-03-30 10:40 | Emergency (ER) | payer OTHER, SELFPAY ==
[2023-03-30 10:45] VITALS: BP 163/81; PULSE 64; RESP 18; TEMP 36.7; O2SAT 98; BMI 42.3
--- NOTE | 2023-03-30 10:59 | EXP.UTC ---
Discharge Plan Disposition Patient Disposition: Home, Self-Care Condition: Good Prescriptions Prescriptions: New amoxicillin-pot clavulanate 875-125 mg Tablet 1 tab PO Q12H Qty: 14 0RF guaifenesin [Mucinex] 600 mg tablet extended release 12hr 1,200 mg PO BID PRN (Reason: cough) Qty: 20 0RF benzonatate 100 mg capsule 100 mg PO TID PRN (Reason: cough) Qty: 30 0RF methylprednisolone [Medrol (Victor M)] 4 mg tablets,dose pack See Rx Instructions .Route .COMPLEX 6 Days Qty: 21 0RF Rx Instructions: taper pack; No Action Ozempic 0.25 mg or 0.5 mg (2 mg/3 mL) pen injector 0.25 mg SQ Ozempic 0.25 mg or 0.5 mg (2 mg/3 mL) pen injector 0.5 mg SQ WEEKLY Qty: 3 2RF nebivolol 5 mg tablet See Rx Instructions .ROUTE .COMPLEX Qty: 90 3RF Dose Instruction: TAKE ONE TABLET BY MOUTH EVERY DAY Rx Instructions: TAKE ONE TABLET BY MOUTH EVERY DAY hydrochlorothiazide 25 mg tablet See Rx Instructions .ROUTE .COMPLEX Qty: 90 4RF Dose Instruction: TAKE ONE TABLET BY MOUTH EVERY DAY FOR FLUID Rx Instructions: TAKE ONE TABLET BY MOUTH EVERY DAY FOR FLUID lisinopril 10 mg tablet See Rx Instructions .ROUTE .COMPLEX Qty: 90 4RF Dose Instruction: TAKE ONE TABLET BY MOUTH EVERY DAY Rx Instructions: TAKE ONE TABLET BY MOUTH EVERY DAY sertraline 50 mg tablet See Rx Instructions .ROUTE .COMPLEX Qty: 90 4RF Dose Instruction: TAKE ONE TABLET BY MOUTH EVERY DAY FOR anxiety/depression Rx Instructions: TAKE ONE TABLET BY MOUTH EVERY DAY FOR anxiety/depression cholecalciferol (vitamin D3) 50 mcg (2,000 unit) capsule 50 mcg PO DAILY Qty: 90 3RF ergocalciferol (vitamin D2) 1,250 mcg (50,000 unit) capsule 1,250 mcg PO WEEKLY Qty: 14 3RF methylprednisolone [Medrol (Victor M)] 4 mg tablets,dose pack 4 mg PO PER PKG DIR 6 Days Qty: 21 0RF aspirin 81 MG tablet,chewable 81 mg PO DAILY omeprazole 40 mg capsule,delayed release(DR/EC) 40 mg PO DAILY Qty: 90 3RF Referrals Follow up/Referrals: Ede Phillips MD [Primary Care Provider] - See instructions Activity Restrictions/Add. Instructions Additional Instructions/Restrictions: *Monitor Temp, Over the counter Motrin or Tylenol as directed/as needed Tylenol every 4 hours and Motrin every 6 hours (as long as your family doctor has told you that you can take it) for fever or pain. and straight to ER if unable to lower temp less than 101.0 after medication given *Warm salt water gargles may help to soothe the throat *Throat Lozenges? *Warm fluids like tea with honey may help to soothe the throat? *Sleep elevated *Humidifier/Vaporizer Take medication as prescribed Follow up IMMEDIATELY for new or worsening symptoms or no Noticeable improvement over the next 48-72 hours. 911 for difficulty breathing or swallowing Clinical Impressions Clinical Impression: Sinusitis Qualifiers: Sinusitis location: unspecified location Chronicity: unspecified Qualified Code(s): J32.9 - Chronic sinusitis, unspecified Instructions Patient Instructions: DI for Sinusitis, Sinusitis Discharge ED Provider: Ketty Holman [facility] [place] HPI General Stated complaint: Head congestion cough Mode of Arrival: Ambulatory Source of Information: Patient Limitations: No Limitations Time Seen by Provider: 03/30/23 10:59 Description of Symptoms (Recalled from Triage Doc. by RN): PATIENT C/O PRODUCTIVE COUGH, CONGESTION, AND BODY ACHES X 3 DAYS HEENT Symptoms (Recalled from RN notes): Yes Resp Symptoms (Recalled from RN notes): Yes Skin Symptoms (Recalled from RN notes): No MS Symptoms (Recalled from RN notes): No Functional Status (Recalled from RN notes): WNL History of Present Illness Provider Complaint: Patient states that she has been having sinus pain and pressure for over a week States that it is draining in the back of her throat and making her cough States that a
[2023-03-30 11:05] VITALS: BP 163/81; PULSE 64; RESP 18; TEMP 36.7; O2SAT 98
== END 2023-03-30 11:08 | disposition home or self-care (01) ==
PROVIDERS: Emergency Provider Nurse Practitioner; PCP Emergency Medicine
DX: J32.9 Chronic sinusitis, unspecified (principal); R05.9 Cough, unspecified; M19.071 Primary osteoarthritis, right ankle and foot; M19.072 Primary osteoarthritis, left ankle and foot
CPT/HCPCS: 99212; 99214; G0463

== ENCOUNTER → 2023-08-07 12:35 | Outpatient (CLI) | payer MEDICARE, OTHER, SELFPAY ==
[2023-08-07 12:25] LABS: Basophils % 0.6 % (0.1-2.0); Eosinophils # 0.1 K/mm3 (0.0-0.4); Eosinophils % 1.6 % (0.1-12.0); Hematocrit 43.7 % (37.0-47.0); Hemoglobin 14.2 g/dL (12.2-16.2); Lymphocytes # 2.2 K/mm3 (0.7-4.5); Lymphocytes % 36.5 % (10-50); Mean Corpuscular HGB Conc 32.4 g/dL (31.8-35.4); Mean Corpuscular Hemoglobin 29.1 pg (27.0-31.2); Mean Corpuscular Volume 89.7 fl (81-99); Mean Platelet Volume 8.2 fl (7.4-10.4); Monocytes # 0.4 K/mm3 (0.1-1.0); Monocytes % 6.6 % (1.7-9.3); Neutrophils # 3.3 K/mm3 (1.8-7.8); Neutrophils % 54.6 % (37.0-80.0); Platelet Count 313 K/mm3 (142-424); Red Blood Count 4.87 M/mm3 (4.20-5.40); Red Cell Distribution Width 13.9 % (11.5-17.5)
[2023-08-07 12:38] LABS: Alanine Aminotransferase 25 U/L (12-78); Albumin Level 4.2 g/dl (3.5-5.0); Albumin/Globulin Ratio 1.4 (1.1-1.8); Alkaline Phosphatase 73 U/L (38-126); Anion Gap 9.4 mEq/L (5-15); Aspartate Amino Transferase 30 U/L (14-36); Bilirubin,Total 0.4 mg/dl (0.2-1.3); Blood Urea Nitrogen 13 mg/dl (7-17); Calcium 9.1 mg/dl (8.4-10.2); Carbon Dioxide 32 mmol/L (22.0-30.0); Chloride 97 mmol/L (98-107); Cholesterol 192 mg/dl (140-200); Estimated Glomerular Filt Rate 84 ml/min (>60); GFR (African American) 102 ML/MIN (>60); Globulin 3.1 g/dL (1.3-3.2); Glucose 101 mg/dl (74-100); HDL Cholesterol 63 mg/dl (40-60); Potassium 4.4 mmoL/L (3.5-5.1); Sodium 134 mmol/L (136-145); Total Protein,Serum 7.3 g/dl (6.3-8.2); Triglycerides 136 mg/dl (30-150); VLDL Cholesterol 27 mg/dL (0-40)
[2023-08-07 12:58] LABS: Direct LDL Cholesterol 90.28 mg/dL (100-129)
[2023-08-07 13:51] LABS: Hemoglobin A1C 5.6 % (4.0-6.0)
[2023-08-07 14:17] LABS: 25-OH Vitamin D, Total 24.2 ng/mL (30-100)
[2023-08-07 14:30] LABS: Thyroid Stimulating Hormone 1.52 uIU/mL (0.465-4.68)
[2023-08-07 14:49] LABS: Vitamin B12 766 pg/mL (239-931)
== END ==
LOC: LAB.DROPOF 12:36
PROVIDERS: PCP Physician Assistant; Visit Provider Physician Assistant
DX: I10 Essential (primary) hypertension; E88.818 Other insulin resistance; F32.9 Major depressive disorder, single episode, unspecified; J32.9 Chronic sinusitis, unspecified; E55.9 Vitamin D deficiency, unspecified; Z79.899 Other long term (current) drug therapy
CPT/HCPCS: 80053; 80061; 82306; 82607; 83036; 84443; 85025

== ENCOUNTER 2023-12-11 07:29 | Outpatient (CLI) | payer SELFPAY ==
--- NOTE | 2023-12-11 07:30 | CT_ITS ---
APPROVED REPORT Emergency Room Physician Assistant: CLINICAL INDICATION Risk stratification TECHNIQUE Image Acquisition: A 128 slice MDCT scanner ([employer] View) was used for data acquisition. A noncontrast coronary calcium scan was performed. A CT attenuation threshold of 130 Hounsfield units (HU) was used for the detection of calcium in contiguous voxels of 1 sq mm in area to be counted as individual lesions. A tube voltage of 120 KVp was used. The patient received no medications prior to the coronary calcium CT. Image Reconstruction Transaxial images were reconstructed at 0.67 mm slide thickness. Data was reviewed interactively on an advanced workstation capable of 2 and 3-dimensional displays in all conventional reconstruction formats, including multiplanar reformations, maximum intensity projections, curved multiplanar reformations, and volume rendered reconstructions. When applicable, selected routine images describing the relevant coronary anatomy and pathology were saved and sent to PACS. Complications None Technical Quality Overall image quality was good. Total DLP (Dose-Length Product) is 161.9 mGy-cm. The reported value represents the total of one or more individual components during the CT acquisition of this date and at this time, and as such, the same value may appear in more than one CT report depending on the interpreting/reporting physicians. COMPARISON None FINDINGS CT Coronary Calcium Scoring LMA (Left Main Artery) = 0 LAD (Left Anterior Descending) = 0 LCX (Left Coronary Circumflex) = 0 RCA (Right Coronary Artery) = 0 Total Calcium Score = 0 using the AJ-130 method. There is mild calcification incidentally noted in the aortic valve and the ascending aorta. IMPRESSION -Coronary artery calcification is absent -Total Calcium Score (Agatston Score) = 0 using the AJ-130 method. -Mild calcification incidentally noted in the aortic valve and the ascending aorta. The interpretation of the calcium heart score is based on the following continuum*: 0 = no calcified plaque detected (risk of coronary artery disease is very low ??? less than 5%) 1-10 = calcium detected in extremely minimal levels (risk of coronary diseases is still low ??? less than 10%) 11-100 = mild levels of plaque detected with certainty (mild or minimal narrowing of heart arteries is likely) 101-400 = definite,at least moderate levels of plaque detected (relatively high risk of a heart attack within 3-5 years) >401-999 = extensive levels of plaque detected (high risk of heart attack, high levels of vascular disease are present, high likelihood of at least one significant coronary narrowing) *The calcium heart score quantifies the burden of coronary calcification/plaque in the coronary arteries. The calcium heart score does not evaluate the presence or the burden of non-calcified (i.e. soft) plaque. The coronary and cardiac findings of this Coronary Calcium CT were reviewed, reported, and signed by Juanjose Banks MD (Web Site Designer). Conclusion Electronically signed by : Socorro Banks MD 12/11/2023 10:46:54
== END 2023-12-11 23:59 ==
LOC: RAD 07:30
PROVIDERS: PCP Physician Assistant; Visit Provider Physician Assistant
DX: I10 Essential (primary) hypertension (principal)
CPT/HCPCS: 75571

== ENCOUNTER 2024-05-14 18:50 | Outpatient (CLI) | payer OTHER, SELFPAY ==
[2024-05-14 19:06] LABS: Basophils # 0.1 K/mm3 (0-0.2); Eosinophils # 0.2 K/mm3 (0.0-0.4); Eosinophils % 3.5 % (0.1-12.0); Hematocrit 44.2 % (37.0-47.0); Hemoglobin 14.2 g/dL (12.2-16.2); Lymphocytes # 2.4 K/mm3 (0.7-4.5); Lymphocytes % 33.8 % (10-50); Mean Corpuscular HGB Conc 32.1 g/dL (31.8-35.4); Mean Corpuscular Hemoglobin 28.9 pg (27.0-31.2); Mean Platelet Volume 8.8 fl (7.4-10.4); Monocytes # 0.4 K/mm3 (0.1-1.0); Monocytes % 5.8 % (1.7-9.3); Neutrophils # 3.9 K/mm3 (1.8-7.8); Neutrophils % 55.9 % (37.0-80.0); Platelet Count 342 K/mm3 (142-424); Red Blood Count 4.91 M/mm3 (4.20-5.40); Red Cell Distribution Width 13.9 % (11.5-17.5)
[2024-05-14 19:30] LABS: Alanine Aminotransferase 24 U/L (12-78); Albumin Level 4.1 g/dl (3.5-5.0); Albumin/Globulin Ratio 1.3 (1.1-1.8); Alkaline Phosphatase 61 U/L (38-126); Anion Gap 10.1 mEq/L (5-15); Aspartate Amino Transferase 29 U/L (14-36); Bilirubin,Total 0.5 mg/dl (0.2-1.3); Blood Urea Nitrogen 20 mg/dl (7-17); Calcium 9.8 mg/dl (8.4-10.2); Carbon Dioxide 30 mmol/L (22.0-30.0); Chloride 101 mmol/L (98-107); Cholesterol 211 mg/dl (140-200); Estimated Glomerular Filt Rate 72 ml/min (>60); GFR (African American) 87 ML/MIN (>60); Globulin 3.2 g/dL (1.3-3.2); Glucose 92 mg/dl (74-100); HDL Cholesterol 70 mg/dl (40-60); Potassium 4.1 mmoL/L (3.5-5.1); Sodium 137 mmol/L (136-145); Total Protein,Serum 7.3 g/dl (6.3-8.2); Triglycerides 113 mg/dl (30-150); VLDL Cholesterol 23 mg/dL (0-40)
[2024-05-14 19:41] LABS: Direct LDL Cholesterol 98.65 mg/dL (100-129)
[2024-05-14 19:46] LABS: 25-OH Vitamin D, Total 27.5 ng/mL (30-100)
== END 2024-05-14 23:59 | disposition home or self-care (01) ==
LOC: LAB.DROPOF 18:51
PROVIDERS: PCP Nurse Practitioner Family; Visit Provider Nurse Practitioner Family
DX: I10 Essential (primary) hypertension (principal); E66.09 Other obesity due to excess calories; Z68.37 Body mass index [BMI] 37.0-37.9, adult
CPT/HCPCS: 80050; 80053; 80061; 82306; 84443; 85025

== ENCOUNTER 2024-05-21 09:16 | Outpatient (CLI) | payer OTHER, SELFPAY ==
--- NOTE | 2024-05-21 09:22 | XR_ITS ---
FINAL REPORT TECHNIQUE: Bone densitometry calculations of the lumbar spine and left hip were obtained. CLINICAL HISTORY: Postmenopausal female COMPARISON: None FINDINGS: Using L1-4, the bone mineral density of the spine is 1.186 g/cm2, corresponding to T-score of 1.3. Using the left hip, the bone mineral density of the left femoral neck is 0.923 g/cm2, corresponding to a T-score of -0.2. NOTE: T-score: Standard deviation compared with peak bone mass of young adult mean. *Following the recommendations of the International Society of Bone densitometry, classification of hip BMD is based on the lower of two T-scores; total hip or femoral neck. IMPRESSION: Normal bone mineral density of the lumbar spine and hip. Reviewed, Interpreted and Dictated by Kye Ochoa III, MD Transcribed by Donna Fox Authenticated and [facility]
== END 2024-05-21 23:59 | disposition home or self-care (01) ==
LOC: RAD 09:18
PROVIDERS: PCP Nurse Practitioner Family; Visit Provider Nurse Practitioner Family
DX: M81.0 Age-related osteoporosis without current pathological fracture (principal)
CPT/HCPCS: 77080

== ENCOUNTER 2024-07-15 17:16 | Emergency (ER) | payer OTHER, SELFPAY ==
[2024-07-15 17:30] VITALS: BP 140/71; PULSE 75; RESP 19; TEMP 36.7; O2SAT 98; BMI 44.2
--- NOTE | 2024-07-15 17:54 | ED_ITS ---
Discharge Plan Disposition Patient Disposition: Home, Self-Care Condition: Good Prescriptions Prescriptions: New amoxicillin-pot clavulanate 875-125 mg Tablet 1 tab PO Q12H Qty: 20 0RF clotrimazole [Antifungal (clotrimazole)] 1 % cream 1 applic topical BID Qty: 30 0RF Rx Instructions: apply to rash as directed prednisone 20 mg tablet 20 mg PO BID 5 Days Qty: 10 0RF benzonatate 100 mg capsule 100 mg PO TID PRN (Reason: cough) Qty: 30 0RF No Action vitamin B complex Tablet 1 tab PO DAILY omeprazole 40 mg capsule,delayed release(DR/EC) See Rx Instructions .ROUTE .COMPLEX Qty: 90 3RF Dose Instruction: TAKE ONE CAPSULE BY MOUTH EVERY DAY Rx Instructions: TAKE ONE CAPSULE BY MOUTH EVERY DAY aspirin 81 MG tablet,chewable 81 mg PO DAILY lisinopril 10 mg tablet 10 mg PO DAILY Rx Instructions: TAKE ONE TABLET BY MOUTH EVERY DAY hydrochlorothiazide 25 mg tablet 25 mg PO DAILY Rx Instructions: TAKE ONE TABLET BY MOUTH EVERY DAY FOR FLUID sertraline 50 mg tablet 50 mg PO DAILY Rx Instructions: TAKE ONE TABLET BY MOUTH EVERY DAY FOR anxiety/depression nebivolol 5 mg tablet 5 mg PO DAILY Rx Instructions: TAKE ONE TABLET BY MOUTH EVERY DAY Referrals Follow up/Referrals: Raúl George APRN [Primary Care Provider] - See instructions Activity Restrictions/Add. Instructions Additional Instructions/Restrictions: * Start antibiotic today. Be sure to complete entire prescription even if feeling better * Monitor temp. Tylenol every 4 hours as needed and / or ibuprofen every 6 hours as needed ( As long as your primary care physician has told you that it ok to take both. For fever/aches/pains ER if no less than 101 despite Tylenol or Motrin * Humidifier/vaporizer or hot steamy shower * Mucinex during the day for your cough and cough suppressant only at night. Be sure to drink lots of water. Insurance may not cover a prescriptions for mucinex. Might be cheaper to get 400mg tablets and take 2 tablet in the morning, mid-day and evening with lots of water. Tessalon Perles will not cause drowsiness but use at bedtime to help stop cough so that you may get some rest. *Start steroid today. Helps with inflammation therefore, cough and wheezing. Follow directions on the package. Reviewed side effects. Patient reports taking them before. Follow up with Dermatology if no improvement on rash Follow up IMMEDIATELY for new or worsening of symptoms OR no noticeable improvement over the next 48-72 hours. 911 immediately for any life threatening symptoms such as chest pain or difficulty breathing Clinical Impressions Clinical Impression: Sinusitis, Bronchitis Instructions Patient Instructions: DI for Sinusitis, Clotrimazole Topical Print Language Print Language: Prydeinig Discharge ED Provider: Ketty Holman [facility] General Stated complaint: cough,rash around neck Mode of Arrival: Ambulatory Source of Information: Patient Limitations: No Limitations Time Seen by Provider: 07/15/24 17:54 Description of Symptoms (Recalled from Triage Doc. by RN): PATIENT C/O COUGH AND CONGESTION X 1 WEEK, AND A RASH THAT STARTED SEVERAL MONTHS AGO HEENT Symptoms (Recalled from RN notes): Yes Resp Symptoms (Recalled from RN notes): Yes Skin Symptoms (Recalled from RN notes): Yes MS Symptoms (Recalled from RN notes): No Functional Status (Recalled from RN notes): WNL History of Present Illness Provider Complaint: Patient states that she has been having rash around her neck that is dry like and at time feels itchy and prickly States also for the last week she has been having sinus pain and pressure and cough so today when she wasnt any better she came in to get checked Related Data Home Medications ?Medication ?Instructions ?Recorded ?Confirmed aspirin 81 mg chewable tablet 81 mg PO DAILY Heart disease 10/24/17 07/15/24 vitamin B complex 1 tab PO DAILY 08/07/23 07/15/24 hydrochlorothiazide 25 mg tablet 25 mg PO DAILY 07/15/24 07/15/24 lisinopril 10 mg tablet 10 mg PO DAILY 07/15/24 07/15/24 nebivolol 5 mg tablet 5 mg PO DAILY 07/15/24 07/15/24 sertraline 50 mg tablet 50 mg PO DAILY 07/15/24 07/15/24 Previous Rx's ?Medication ?Instructions ?Recorded omeprazole 40 mg capsule,delayed See Rx Instructions .Route 05/08/24 release .COMPLEX #90 caps amoxicillin 875 mg-potassium 1 tab PO Q12H #20 tabs 07/15/24 clavulanate 125 mg tablet benzonatate 100 mg capsule 100 mg PO TID PRN cough #30 caps 07/15/24 clotrimazole 1 % topical cream 1 applic topical BID #30 grams 07/15/24 (Antifungal (clotrimazole)) prednisone 20 mg tablet 20 mg PO BID 5 days #10 tabs 07/15/24 Allergies Allergy/AdvReac Type Severity Reaction Status Date / Time codeine [CODEINE] Allergy Mild Verified 05/14/24 08:42 Worker's Comp Is this a Worker's Comp case?: No [facility] Disclaimer: The information contained in this section may have been updated after the patient was seen, as this information can be updated by other users. Medical History Tinnitus of both ears Tinnitus Calcaneal spur of both feet History of fracture of right ankle Acquired pes planus of both feet Primary osteoarthritis of both feet Foot pain Surgical History H/O breast biopsy Social History Smoking Status: Never smoker second hand exposure: No alcohol intake: current alcohol intake frequency: 0-2 drinks per day substance use type: denies use current occupational status: other Travel in the last 8 weeks: None household members: none housing: house current occupation: [employer] current occupational exposures/hazards: No caffeine: Yes ROS Obtained: Yes All systems reviewed & no additional complaints except as documented and Yes Systems reviewed as appropriate & no additional complaints except as documented Constitutional Constitutional: Reports system reviewed and no additional complaints, except as documented and Reports as per HPI ENT Ears, Nose, Mouth, and Throat: Reports system reviewed and no additional complaints, except as documented, Reports as per HPI, Reports sinus pain and Reports sinus pressure Cardiovascular Cardiovascular: Reports system reviewed and no additional complaints, except as documented and Reports as per HPI Respiratory Respiratory: Reports system reviewed and no additional complaints, except as documented, Reports as per HPI, Reports chest congestion and Reports cough Gastrointestinal Gastrointestingal: Reports system reviewed and no additional complaints, except as documented and as per HPI Genitourinary Female Genitourinary: Reports system reviewed and no additional complaints, except as documented and Reports as per HPI Integumentary/Breasts Skin/Breast: Reports system reviewed and no additional complaints, except as documented, Reports as per HPI, Reports pruritus and Reports rash Physical Exam General General appearance: alert and in no apparent distress ENT ENT exam: Present mucous membranes moist Expanded ENT Exam Nose exam: Present sinus tenderness Throat exam: Present other (PND noted) Respiratory Respiratory exam: Present normal lung sounds bilaterally; Absent respiratory distress or wheezes Cardiovascular Cardiovascular exam: Present regular rate, normal rhythm and normal heart sounds Abdominal Exam Abdominal exam: Present soft and normal bowel sounds; Absent distention or tenderness Neurological Exam Neurological exam: Present alert, oriented X3 and normal gait Skin Skin exam: Present rash (red dry rash with dry borders noted rough to the touch) Medical Decision Making Medical Records Screening: Per USPSTF and CDC recommendations, given the prevalence of disease in our region, it is our hospital?s policy to screen for HIV and viral Hepatitis for all patients aged 18 and over and those with ongoing risk factors. Timmy Inquiry Pt receiving controlled substance: No Timmy was queried for this patient: No Vital Signs: 07/15/24 17:30 Temperature 98.0 F Temperature Source Oral Pulse Rate [Left Brachial] 75 Respiratory Rate 19 Blood Pressure [Left Arm] 140/71 Blood Pressure Mean [Left Arm] 94 Blood Pressure Source [Left Arm] Automatic Cuff Blood Pressure Position [Left Arm] Sitting 02 Sat by Pulse Oximetry 98 Oxygen Delivery Method Room Air Medical Decision Narrative: Patient states that she has taken Prednisone in the past with yher current medications
[2024-07-15 18:16] VITALS: BP 140/79; PULSE 90; RESP 19; TEMP 36.8; O2SAT 99
== END 2024-07-15 18:16 | disposition home or self-care (01) ==
PROVIDERS: Emergency Provider Nurse Practitioner; PCP Nurse Practitioner Family
DX: J01.80 Other acute sinusitis (principal); J20.9 Acute bronchitis, unspecified
CPT/HCPCS: 99212; G0381

== ENCOUNTER 2024-09-05 11:35 | Emergency (ER) | payer OTHER, SELFPAY ==
[2024-09-05] VITALS (9 sets, daily range): BP systolic 134–213; BP diastolic 65–91; PULSE 60–74; RESP 14–18; TEMP 36.3–36.6; O2SAT 94–97; BMI 40.3
--- NOTE | 2024-09-05 11:36 | ECG_ITS ---
APPROVED REPORT Exam: Resting ECG HR:63 bpm ECG Measurements Heart Rate 63 AXES WI 188 P 36 QRSd 84 QRS 24 QT 378 T 24 QTc 386 Conclusion Sinus rhythm Electronically signed by : COBY DIAZ, 09/06/2024 15:17:06
--- NOTE | 2024-09-05 12:20 | CT_ITS ---
FINAL REPORT TECHNIQUE: Axial CT images were performed through the head. Coronal reformatted images were submitted. This study was performed with techniques to keep radiation doses as low as reasonably achievable (ALARA). Individualized dose reduction techniques using automated exposure control or adjustment of mA and/or kV according to the patient's size were employed. CLINICAL HISTORY: R sided complete numbness x few days FINDINGS: The ventricles are normal in size. There is no evidence of hemorrhage. There is no mass or edema identified. There is no abnormal extra-axial fluid seen. The sinuses are well aerated. IMPRESSION: No acute intracranial process. Reviewed, Interpreted and Dictated by Horace Jose MD Transcribed by Aleyda Herrera Authenticated and [facility][1]
--- NOTE | 2024-09-05 12:20 | CT_ITS ---
FINAL REPORT TECHNIQUE: NASCET technique utilized for stenosis evaluation. This study was performed with techniques to keep radiation doses as low as reasonably achievable, (ALARA). Individualized dose reduction techniques using automated exposure control or adjustment of mA and/or kV according to the patient's size were employed. CLINICAL HISTORY: R sided complete numbness FINDINGS: RIGHT CAROTID: There is moderate plaque at the carotid bifurcation without significant stenosis. LEFT CAROTID: There is moderate plaque at the carotid bifurcation without significant stenosis. VERTEBRALS: The vertebrals are patent. The left vertebral artery is dominant. No significant stenosis is present. IMPRESSION: No significant arterial abnormality. Reviewed, Interpreted and Dictated by Horace Jose MD Transcribed by Aleyda Herrera Authenticated and . [facility]
--- NOTE | 2024-09-05 12:20 | CT_ITS ---
FINAL REPORT TECHNIQUE: thin section axial CT with and without IV contrast supplemented with multiplanar 3-D reconstruction of the head. This study was performed with techniques to keep radiation doses as low as reasonably achievable, (ALARA)individualized dose reduction techniques using automated exposure control or adjustment of mA and/or kV according to the patient's size were employed. CLINICAL HISTORY: R sided complete numbness FINDINGS: The cranial circulation is unremarkable. There is no significant stenosis, aneurysm or occlusion. IMPRESSION: No evidence of aneurysm or major branch occlusion. Reviewed, Interpreted and Dictated by Horace Jose MD Transcribed by Aleyda Herrera Authenticated and [facility]
--- NOTE | 2024-09-05 12:21 | XR_ITS ---
FINAL REPORT CLINICAL HISTORY: R sided complete numbness COMPARISON: None FINDINGS: A single view of the chest was obtained with the patient in lordotic positioning. The heart is mildly enlarged. The mediastinum is normal. There is no focal infiltrate or edema. There are no pleural effusions. There is no pneumothorax. There is no osseous abnormality. IMPRESSION: No acute cardiopulmonary process. Mild cardiomegaly. Reviewed, Interpreted and Dictated by Horace Jose MD Transcribed by Yen Montes Authenticated and [facility]
[2024-09-05] MEDS: ASPIRIN 81MG CHEWABLE TABLET 324 MG PO (12:23)
[2024-09-05 12:31] LABS: Albumin Level 4.2 g/dl (3.5-5.0); Chloride 100 mmol/L (98-107); Sodium 134 mmol/L (136-145)
[2024-09-05 12:33] LABS: Alanine Aminotransferase 23 U/L (12-78); Alkaline Phosphatase 70 U/L (38-126); Aspartate Amino Transferase 33 U/L (14-36); Bilirubin,Total 0.6 mg/dl (0.2-1.3); Blood Urea Nitrogen 18 mg/dl (7-17); Carbon Dioxide 29 mmol/L (22.0-30.0); Creatinine Clearance Estimated 99 mL/min (50-200); Estimated Glomerular Filt Rate 84 ml/min (>60); GFR (African American) 101 ML/MIN (>60)
[2024-09-05 12:34] LABS: Albumin/Globulin Ratio 1.4 (1.1-1.8); Calcium 9.4 mg/dl (8.4-10.2); Chol/HDL Ratio 2.8 (1-3.5); Cholesterol 188 mg/dl (140-200); Globulin 2.9 g/dL (1.3-3.2); Glucose 111 mg/dl (74-100); HDL Cholesterol 68 mg/dl (40-60); Magnesium 1.9 mg/dl (1.6-2.3); Total Protein,Serum 7.1 g/dl (6.3-8.2); Triglycerides 131 mg/dl (30-150); VLDL Cholesterol 26 mg/dL (0-40)
[2024-09-05 12:38] LABS: Basophils # 0.1 K/mm3 (0-0.2); Basophils % 0.9 % (0.1-2.0); Eosinophils # 0.2 K/mm3 (0.0-0.4); Hematocrit 41.7 % (37.0-47.0); Hemoglobin 13.6 g/dL (12.2-16.2); Lymphocytes # 2.6 K/mm3 (0.7-4.5); Lymphocytes % 34.5 % (10-50); Mean Corpuscular HGB Conc 32.6 g/dL (31.8-35.4); Mean Corpuscular Hemoglobin 28.5 pg (27.0-31.2); Mean Corpuscular Volume 87.2 fl (81-99); Mean Platelet Volume 9.7 fl (7.4-10.4); Monocytes # 0.7 K/mm3 (0.1-1.0); Monocytes % 9.4 % (1.7-9.3); Neutrophils # 3.9 K/mm3 (1.8-7.8); Neutrophils % 52.8 % (37.0-80.0); Platelet Count 316 K/mm3 (142-424); Red Blood Count 4.78 M/mm3 (4.20-5.40); Red Cell Distribution Width 13.6 % (11.5-17.5); White Blood Count 7.5 K/mm3 (4.8-10.8)
[2024-09-05 12:45] LABS: Direct LDL Cholesterol 82.02 mg/dL (100-129)
[2024-09-05 12:48] LABS: Activated Partial Thrombo Time 31.8 seconds (22.8-30.6)
[2024-09-05 12:49] LABS: NT Pro Brain Natriuretic Pep. 190 pg/mL (0-125)
[2024-09-05 12:52] LABS: Troponin I < 0.01 ng/ml (0.00-0.034)
[2024-09-05 12:55] LABS: T4 (Thyroxine) 7.3 ug/dl (5.53-11.0)
--- NOTE | 2024-09-05 12:55 | ED_ITS ---
Discharge Plan Disposition Patient Disposition: Home, Self-Care Condition: Good Prescriptions Prescriptions: New clopidogrel [Plavix] 75 mg tablet 75 mg PO DAILY 90 Days Qty: 90 1RF No Action vitamin B complex Tablet 1 tab PO DAILY aspirin 81 MG tablet,chewable 81 mg PO DAILY lisinopril 10 mg tablet 10 mg PO DAILY Rx Instructions: TAKE ONE TABLET BY MOUTH EVERY DAY hydrochlorothiazide 25 mg tablet 25 mg PO DAILY Rx Instructions: TAKE ONE TABLET BY MOUTH EVERY DAY FOR FLUID sertraline 50 mg tablet 50 mg PO DAILY Rx Instructions: TAKE ONE TABLET BY MOUTH EVERY DAY FOR anxiety/depression Referrals Follow up/Referrals: Santiago Marquez MD [Primary Care Provider] - See instructions Activity Restrictions/Add. Instructions Additional Instructions/Restrictions: You were evaluated in the emergency department today. Please follow-up very closely outpatient with neurology as well as with your primary care provider. We have given you a Plavix load here in the emergency department. Please draft roller picker your prescription of Plavix and start tomorrow. Continue taking your aspirin daily as well for dual antiplatelet therapy. Return to an emergency department right away for new or worsening symptoms. Otherwise, neurology at [facility] (Dr. Dr. Temple) recommended close outpatient follow-up for MRI with and without contrast. Clinical Impressions Clinical Impression: Transient neurological symptoms, Abnormal MRI of head Stand Alone Forms Stand Alone Forms: Work/School Release Instructions Patient Instructions: DI for Transient Ischemic Attack Print Language Print Language: Spanish Discharge ED Provider: Jaclyn Holloway General Adult HPI <Tico Rowan MD - Last Filed: 09/05/24 16:24> General Chief complaint: Neuro Symptoms/Deficit Stated complaint: numbness,tingiling Time Seen by Provider: 09/05/24 11:39 Mode of Arrival: Ambulatory Source of Information: Patient Limitations: No Limitations Description of Symptoms (Recalled from ER Triage Doc. by RN): pt presents to the er for numbness and tingling to the R arm and leg, states this started occurring on maria isabel alec and has occurred 3-4 times each day since, denies weakness or confusion, states she gets a warm feeling on the R side of her body then numnbess an tingling occurs for 1-2 minutes then goes away, hx of dad having a stroke, takes aspirin daily, NIH scale 0. last episode occurred at 11am today History of Present Illness HPI narrative: Please note that above description of symptoms, in this electronic medical record under categorization of recalled from ER triage doctor by RN are reflective of an initial nursing assessment, however, is not reflective of my full history and physical exam that was personally taken and clarified. Consequentially, this preceding description of symptoms, which may include the patient's categorized chief complaint in the EMR, do not reflect my personal clinical impression, and the ultimate description of history of present illness and patient stated complaints should be deferred to this section of the note. Unless stated otherwise or congruent with this section of the note, additional signs, symptoms, or incongruence should be interpreted as inaccurate with my clinical impression. Related Data Home Medications ?Medication ?Instructions ?Recorded ?Confirmed aspirin 81 mg chewable tablet 81 mg PO DAILY Heart disease 10/24/17 09/05/24 vitamin B complex 1 tab PO DAILY 08/07/23 09/05/24 hydrochlorothiazide 25 mg tablet 25 mg PO DAILY 07/15/24 09/05/24 lisinopril 10 mg tablet 10 mg PO DAILY 07/15/24 09/05/24 sertraline 50 mg tablet 50 mg PO DAILY 07/15/24 09/05/24 Previous Rx's ?Medication ?Instructions ?Recorded clopidogrel 75 mg tablet (Plavix) 75 mg PO DAILY 90 days #90 tabs 09/05/24 Allergies Allergy/AdvReac Type Severity Reaction Status Date / Time codeine (CODEINE) Allergy Mild Other Verified 09/05/24 11:51 [facility] <Tico Rowan MD - Last Filed: 09/05/24 16:24> [facility] Disclaimer: The information contained in this section may have been updated after the patient was seen, as this information can be updated by other users. Medical History Tinnitus of both ears Tinnitus Calcaneal spur of both feet History of fracture of right ankle Acquired pes planus of both feet Primary osteoarthritis of both feet Foot pain Surgical History H/O breast biopsy Social History Smoking Status: Never smoker second hand exposure: No alcohol intake: current alcohol intake frequency: 0-2 drinks per day substance use type: denies use current occupational status: other Travel in the last 8 weeks: None household members: none housing: house current occupation: [employer] current occupational exposures/hazards: No caffeine: Yes Have you lived/traveled outside US in past 30 days?: No Contact w/someone who lives/traveled outside US past 30 days?: No Exposure to someone with infectious disease in past 14 days?: No Do you have a fever (greater than 100.4 F or 38 C)?: No Have you tested positive for COVID-19: No Exposed to someone with COVID-19 in past 14 days?: No Do you have a sore throat?: No Do you have a cough?: No Do you have any weakness?: No Do you have any diarrhea?: No Are you experiencing any unusual bleeding?: No Do you have any muscle aches/pain?: No Do you have any abdominal pain?: No Are you experiencing loss of taste or smell?: No Other Medical History Have you received the Flu Vaccine for this season: Yes Have you received the Pneumonia Vaccine: No <Tico Rowan MD - Last Filed: 09/05/24 16:24> ROS Obtained: Yes All systems reviewed & no additional complaints except as documented Physical Exam <Tico Rowan MD - Last Filed: 09/05/24 16:24> General General appearance: alert Head Head exam: atraumatic and normocephalic Eye Eye exam: Present normal appearance, PERRL and EOMI Neck Neck exam: Present normal inspection, full ROM and trachea midline Respiratory Respiratory exam: Absent respiratory distress, wheezes, stridor, accessory muscle use or prolonged expiratory phase Cardiovascular Cardiovascular exam: Present other (Pulses equal symmetric in upper and lower extremities) Abdominal Exam Abdominal exam: Present soft; Absent distention, tenderness or pulsatile mass Extremities Exam Extremities exam: Absent edema Neurological Exam Neurological exam: Present alert, oriented X3, CN II-XII intact and normal gait; Absent motor sensory deficit Skin Skin exam: Present warm and dry; Absent diaphoresis or erythema Medical Decision Making <Tico Rowan MD - Last Filed: 09/05/24 16:24> Medical Records Medical records reviewed: Yes I reviewed the patient's medical records. Screening: Per USPSTF and CDC recommendations, given the prevalence of disease in our region, it is our hospital?s policy to screen for HIV and viral Hepatitis for all patients aged 18 and over and those with ongoing risk factors. Timmy Inquiry Pt receiving controlled substance: No Timmy was queried for this patient: No Vital Signs: 09/05/24 11:36 09/05/24 12:31 09/05/24 13:40 Temperature 97.4 F L Temperature Source Oral Pulse Rate 61 64 Pulse Rate [Right Radial] 74 Respiratory Rate 18 14 18 Blood Pressure 210/87 H 134/91 H Blood Pressure [Right Arm] 213/88 H Blood Pressure Mean 128 110 Blood Pressure Mean [Right Arm] 129 Blood Pressure Source Blood Pressure Source [Right Arm] Automatic Cuff Blood Pressure Position Blood Pressure Position [Right Arm] Sitting 02 Sat by Pulse Oximetry 96 96 95 Oxygen Delivery Method Room Air 09/05/24 14:00 09/05/24 14:31 09/05/24 16:22 Temperature Temperature Source Pulse Rate 70 65 66 Pulse Rate [Right Radial] Respiratory Rate 16 14 18 Blood Pressure 155/67 H 165/68 H 148/70 H Blood Pressure [Right Arm] Blood Pressure Mean 96 92 96 Blood Pressure Mean [Right Arm] Blood Pressure Source Blood Pressure Source [Right Arm] Blood Pressure Position Blood Pressure Position [Right Arm] 02 Sat by Pulse Oximetry 94 L 95 97 Oxygen Delivery Method 09/05/24 16:31 09/05/24 17:01 09/05/24 17:35 Temperature 97.9 F 97.9 F Temperature Source Oral Oral Pulse Rate 60 67 73 Pulse Rate [Right Radial] Respiratory Rate 17 18 18 Blood Pressure 165/80 H 163/75 H 152/65 H Blood Pressure [Right Arm] Blood Pressure Mean 91 104 Blood Pressure Mean [Right Arm] Blood Pressure Source Automatic Cuff Blood Pressure Source [Right Arm] Blood Pressure Position Sitting Blood Pressure Position [Right Arm] 02 Sat by Pulse Oximetry 94 L 95 Oxygen Delivery Method Room Air Room Air Lab Data Lab Results 09/05/24 11:40: WBC 7.5, RBC 4.78, Hgb 13.6, Hct 41.7, MCV 87.2, MCH 28.5, MCHC 32.6, RDW 13.6, Plt Count 316, MPV 9.7, Neut % (Auto) 52.8, Lymph % (Auto) 34.5, [place] % (Auto) 9.4 H, Eos % (Auto) 2.0, Baso % (Auto) 0.9, Neut # (Auto) 3.9, Lymph # (Auto) 2.6, [place] # (Auto) 0.7, Eos # (Auto) 0.2, Baso # (Auto) 0.1, APTT 31.8 H, Sodium 134 L, Potassium 4.0, Chloride 100, Carbon Dioxide 29, Anion Gap 9.0, BUN 18 H, Creatinine 0.70, Estimated Creat Clear 99, Estimated GFR 84, Est GFR ( Amer) 101, Glucose 111 H, Hemoglobin A1c 5.5, Calcium 9.4, Magnesium 1.9, Total Bilirubin 0.6, AST 33, ALT 23, Alkaline Phosphatase 70, Troponin I < 0.01, NT-Pro-B Natriuret Pep 190 H, Total Protein 7.1, Albumin 4.2, Globulin 2.9, Albumin/Globulin Ratio 1.4, Triglycerides 131, Cholesterol 188, L DL Cholesterol Direct 82.02 L, VLDL Cholesterol 26, HDL Cholesterol 68 H, Cholesterol/HDL Ratio 2.8, TSH 1.23, Thyroxine (T4) 7.3, HIV Ag/Ab Combo Qual Negative 09/05/24 16:35: Troponin I < 0.01 09/05/24 11:40 09/05/24 11:40 Orders (Tests/Meds): ED MEDICATIONS Discontinued Medications Generic Name Dose Route Start Last Admin Trade Name Bryce PRN Reason Stop Dose Admin Aspirin 324 mg 09/05/24 12:20 09/05/24 12:23 Aspirin 81mg Chewable Tablet PO 09/05/24 12:21 324 mg ONCE ONE Administration Clopidogrel Bisulfate 300 mg 09/05/24 17:24 09/05/24 17:33 Clopidogrel 300mg Tablet PO 09/05/24 17:25 300 mg ONCE ONE Administration Iopamidol 80 ml 09/05/24 13:12 09/05/24 13:13 Iopamidol-370 (76%);100ml Bottle IV 09/05/24 13:13 80 ml ONCE ONE Administration Irbesartan 150 mg 09/05/24 16:21 09/05/24 16:33 Irbesartan 150mg Tab PO 09/05/24 16:22 150 mg ONCE ONE Administration Sodium Chloride 10 ml 09/05/24 13:12 09/05/24 13:13 Sodium Chloride 0.9% 10ml Syr (Rad Only) IV 09/05/24 13:13 10 ml ONCE ONE Administration Sodium Chloride 50 ml 09/05/24 13:12 09/05/24 13:13 0.9 % Sodium Chloride 50 Ml Vial IV 09/05/24 13:13 50 ml ONCE ONE Administration ORDERS Category Date Time Status CT angio head Stat Cat Scan 09/05/24 12:[address] angio neck Stat Cat Scan 09/05/24 12:[address] head/brain wo con Stat Cat Scan 09/05/24 12:20 Completed XR chest portable Stat Exams 09/05/24 12:21 Completed Complete Blood Count Auto Diff Stat Lab 09/05/24 11:40 Completed Comprehensive Metabolic Panel Stat Lab 09/05/24 11:40 Completed HIV Combo Stat Lab 09/05/24 11:40 Completed Hemoglobin A1C Stat Lab 09/05/24 11:40 Completed Hep C Ab with Reflex to RNA Stat Lab 09/05/24 11:40 Received Lipid Panel Stat Lab 09/05/24 11:40 Completed Magnesium Stat Lab 09/05/24 11:40 Completed NT Pro Brain Natriuretic Pep. Stat Lab 09/05/24 11:40 Completed PTT [Activated Partial Thrombo Time] Stat Lab 09/05/24 11:40 Completed T4 (Thyroxine) Stat Lab 09/05/24 11:40 Completed TSH [Thyroid Stimulating Hormone] Stat Lab 09/05/24 11:40 Completed Troponin I Q3H Lab 09/05/24 16:35 Completed Troponin I Stat Lab 09/05/24 11:40 Completed Medical Decision Narrative: 64-year-old female presenting with right-sided numbness. Patient states that a couple days prior to this she had a first episode of numbness on the right side. She states that you could cut my body in half left and right and the entire right side was numb including my face. Denies vision changes, speech deficits, aphasia, weakness, or any other concerns. She has had 3 since episodes. Last 1 happened today about 30 minutes prior to this visit while she was working. No chest pain, shortness of breath, or any other symptoms associated with this episode either. Has never had anything like this in the past, but came in for further evaluation. It should be noted that she has a history of hypertension, but is currently controlling this. Likely associated with current clinical picture. History was obtained via conversation with patient. On arrival, patient hemodynamically stable, alert, oriented x4, appropriate, GCS 15, moving all extremities spontaneously, pupils equal and reactive to light. Full physical exam performed and significant for NIHSS 0. Currently at baseline, cardiac exam without murmurs gallops or rubs. Lungs are clear. Patient overall clinically well-appearing. She is hypertensive, nontachycardic. Differential includes hemorrhagic stroke, embolic stroke, TIA, metabolic abnormality, endocrinologic abnormality, hypertensive emergency, lung others. Patient placed on continuous cardiac monitoring and continuous pulse ox with initial blood pressure 213/88, heart rate 74, saturation 96% on room air. Independent interpretation of EKG shows sinus rhythm [address] or T wave changes concern for acute ischemia. MO 188, QRS 84, QTc 386. Normal axis. Patient was given irbesartan for symptomatic management and correction of underlying abnormalities. Workup independently interpreted and significant for no acute hematologic abnormalities. Cardiovascular risk factors negative. On independent interpretation of imaging, no acute intracranial hemorrhage, no vascular abnormality of the head or neck on CTA. See radiology read for full review of final results. On reevaluation, patient still resting at baseline, had a brief episode that recurred, but self abated as usual. Patient states that she is unhappy with her lisinopril, has not had any med changes in a long time, would like to know if she could change from this. Irbesartan ordered. MRI ordered. This was performed. On independent interpretation, no evidence of intracranial abnormality acutely, but prior to final read, care handed off to oncoming physician. I also had a conversation with patient regarding starting on statin and echocardiogram here in the emergency department. Patient states that she must follow-up with her family doctor regarding the statin and outpatient echo, I feel both of these are appropriate. Calendering Machine Operator disclaimer Much of this encounter note is an electronic rim turning machine operator spoken language to printed text. Electronic rim turning machine operator of the spoken language may permit errors. Although I have reviewed the note, some errors may still exist. <Jaclyn Holloway, DO - Last Filed: 09/05/24 23:21> Vital Signs: 09/05/24 11:36 09/05/24 12:31 09/05/24 13:40 Temperature 97.4 F L Temperature Source Oral Pulse Rate 61 64 Pulse Rate [Right Radial] 74 Respiratory Rate 18 14 18 Blood Pressure 210/87 H 134/91 H Blood Pressure [Right Arm] 213/88 H Blood Pressure Mean 128 110 Blood Pressure Mean [Right Arm] 129 Blood Pressure Source Blood Pressure Source [Right Arm] Automatic Cuff Blood Pressure Position Blood Pressure Position [Right Arm] Sitting 02 Sat by Pulse Oximetry 96 96 95 Oxygen Delivery Method Room Air 09/05/24 14:00 09/05/24 14:31 09/05/24 16:22 Temperature Temperature Source Pulse Rate 70 65 66 Pulse Rate [Right Radial] Respiratory Rate 16 14 18 Blood Pressure 155/67 H 165/68 H 148/70 H Blood Pressure [Right Arm] Blood Pressure Mean 96 92 96 Blood Pressure Mean [Right Arm] Blood Pressure Source Blood Pressure Source [Right Arm] Blood Pressure Position Blood Pressure Position [Right Arm] 02 Sat by Pulse Oximetry 94 L 95 97 Oxygen Delivery Method 09/05/24 16:31 09/05/24 17:01 09/05/24 17:35 Temperature 97.9 F 97.9 F Temperature Source Oral Oral Pulse Rate 60 67 73 Pulse Rate [Right Radial] Respiratory Rate 17 18 18 Blood Pressure 165/80 H 163/75 H 152/65 H Blood Pressure [Right Arm] Blood Pressure Mean 91 104 Blood Pressure Mean [Right Arm] Blood Pressure Source Automatic Cuff Blood Pressure Source [Right Arm] Blood Pressure Position Sitting Blood Pressure Position [Right Arm] 02 Sat by Pulse Oximetry 94 L 95 Oxygen Delivery Method Room Air Room Air Lab Data Lab Results 09/05/24 11:40: WBC 7.5, RBC 4.78, Hgb 13.6, Hct 41.7, MCV 87.2, MCH 28.5, MCHC 32.6, RDW 13.6, Plt Count 316, MPV 9.7, Neut % (Auto) 52.8, Lymph % (Auto) 34.5, [place] % (Auto) 9.4 H, Eos % (Auto) 2.0, Baso % (Auto) 0.9, Neut # (Auto) 3.9, Lymph # (Auto) 2.6, [place] # (Auto) 0.7, Eos # (Auto) 0.2, Baso # (Auto) 0.1, APTT 31.8 H, Sodium 134 L, Potassium 4.0, Chloride 100, Carbon Dioxide 29, Anion Gap 9.0, BUN 18 H, Creatinine 0.70, Estimated Creat Clear 99, Estimated GFR 84, Est GFR ( Amer) 101, Glucose 111 H, Hemoglobin A1c 5.5, Calcium 9.4, Magnesium 1.9, Total Bilirubin 0.6, AST 33, ALT 23, Alkaline Phosphatase 70, Troponin I < 0.01, NT-Pro-B Natriuret Pep 190 H, Total Protein 7.1, Albumin 4.2, Globulin 2.9, Albumin/Globulin Ratio 1.4, Triglycerides 131, Cholesterol 188, L DL Cholesterol Direct 82.02 L, VLDL Cholesterol 26, HDL Cholesterol 68 H, Cholesterol/HDL Ratio 2.8, TSH 1.23, Thyroxine (T4) 7.3, HIV Ag/Ab Combo Qual Negative 09/05/24 16:35: Troponin I < 0.01 Orders (Tests/Meds): ED MEDICATIONS Discontinued Medications Generic Name Dose Route Start Last Admin Trade Name Freq PRN Reason Stop Dose Admin Aspirin 324 mg 09/05/24 12:20 09/05/24 12:23 Aspirin 81mg Chewable Tablet PO 09/05/24 12:21 324 mg ONCE ONE Administration Clopidogrel Bisulfate 300 mg 09/05/24 17:24 09/05/24 17:33 Clopidogrel 300mg Tablet PO 09/05/24 17:25 300 mg ONCE ONE Administration Iopamidol 80 ml 09/05/24 13:12 09/05/24 13:13 Iopamidol-370 (76%);100ml Bottle IV 09/05/24 13:13 80 ml ONCE ONE Administration Irbesartan 150 mg 09/05/24 16:21 09/05/24 16:33 Irbesartan 150mg Tab PO 09/05/24 16:22 150 mg ONCE ONE Administration Sodium Chloride 10 ml 09/05/24 13:12 09/05/24 13:13 Sodium Chloride 0.9% 10ml Syr (Rad Only) IV 09/05/24 13:13 10 ml ONCE ONE Administration Sodium Chloride 50 ml 09/05/24 13:12 09/05/24 13:13 0.9 % Sodium Chloride 50 Ml Vial IV 09/05/24 13:13 50 ml ONCE ONE Administration ORDERS Category Date Time Status CT angio head Stat Cat Scan 09/05/24 12:[address] angio neck Stat Cat Scan 09/05/24 12:[address] head/brain wo con Stat Cat Scan 09/05/24 12:20 Completed XR chest portable Stat Exams 09/05/24 12:21 Completed Complete Blood Count Auto Diff Stat Lab 09/05/24 11:40 Completed Comprehensive Metabolic Panel Stat Lab 09/05/24 11:40 Completed HIV Combo Stat Lab 09/05/24 11:40 Completed Hemoglobin A1C Stat Lab 09/05/24 11:40 Completed Hep C Ab with Reflex to RNA Stat Lab 09/05/24 11:40 Received Lipid Panel Stat Lab 09/05/24 11:40 Completed Magnesium Stat Lab 09/05/24 11:40 Completed NT Pro Brain Natriuretic Pep. Stat Lab 09/05/24 11:40 Completed PTT [Activated Partial Thrombo Time] Stat Lab 09/05/24 11:40 Completed T4 (Thyroxine) Stat Lab 09/05/24 11:40 Completed TSH [Thyroid Stimulating Hormone] Stat Lab 09/05/24 11:40 Completed Troponin I Q3H Lab 09/05/24 16:35 Completed Troponin I Stat Lab 09/05/24 11:40 Completed Medical Decision Narrative: 64-year-old female presenting with right-sided numbness. Patient states that a couple days prior to this she had a first episode of numbness on the right side. She states that you could cut my body in half left and right and the entire right side was numb including my face. Denies vision changes, speech deficits, aphasia, weakness, or any other concerns. She has had 3 since episodes. Last 1 happened today about 30 minutes prior to this visit while she was working. No chest pain, shortness of breath, or any other symptoms associated with this episode either. Has never had anything like this in the past, but came in for further evaluation. It should be noted that she has a history of hypertension, but is currently controlling this. Likely associated with current clinical picture. History was obtained via conversation with patient. On arrival, patient hemodynamically stable, alert, oriented x4, appropriate, GCS 15, moving all extremities spontaneously, pupils equal and reactive to light. Full physical exam performed and significant for NIHSS 0. Currently at baseline, cardiac exam without murmurs gallops or rubs. Lungs are clear. Patient overall clinically well-appearing. She is hypertensive, nontachycardic. Differential includes hemorrhagic stroke, embolic stroke, TIA, metabolic abnormality, endocrinologic abnormality, hypertensive emergency, lung others. Patient placed on continuous cardiac monitoring and continuous pulse ox with initial blood pressure 213/88, heart rate 74, saturation 96% on room air. Independent interpretation of EKG shows sinus rhythm [address] or T wave changes concern for acute ischemia. MO 188, QRS 84, QTc 386. Normal axis. Patient was given irbesartan for symptomatic management and correction of underlying abnormalities. Workup independently interpreted and significant for no acute hematologic abnormalities. Cardiovascular risk factors negative. On independent interpretation of imaging, no acute intracranial hemorrhage, no vascular abnormality of the head or neck on CTA. See radiology read for full review of final results. On reevaluation, patient still resting at baseline, had a brief episode that recurred, but self abated as usual. Patient states that she is unhappy with her lisinopril, has not had any med changes in a long time, would like to know if she could change from this. Irbesartan ordered. MRI ordered. This was performed. On independent interpretation, no evidence of intracranial abnormality acutely, but prior to final read, care handed off to oncoming physician. I also had a conversation with patient regarding starting on statin and echocardiogram here in the emergency department. Patient states that she must follow-up with her family doctor regarding the statin and outpatient echo, I feel both of these are appropriate. Calendering Machine Operator disclaimer Much of this encounter note is an electronic rim turning machine operator spoken language to printed text. Electronic rim turning machine operator of the spoken language may permit errors. Although I have reviewed the note, some errors may still exist. DO Jewel: I assumed care of the patient at 1500. MRI concerning for abnormal left insular cortex and temporal cortex signal bilaterally. I discussed findings with the patient and she is agreeable for neurology consultation from [facility], [place]. I called and spoke with Dr. Temple with neurology at [facility] who recommended transfer to [facility] for MRI with and without contrast and further neurologic evaluation. Patient was agreeable to this, but then [facility] transfer center notified us that the patient will be placed on a wait list of 14-16 people. Given this, neurology they are stated that if she did not want to wait here at our hospital for an extended period of time, he felt that she could go home with a Plavix load and starting Plavix at home. He recommended close outpatient follow-up and stated they would help arrange this. He stated that should she develop any new or worsening symptoms, she should go directly to [facility] ED. I presented patient with options including waiting for transfer to [facility] while in observation here, trying to be transferred to another facility, or proceeding with load with Plavix and outpatient follow-up with neurology. She prefers outpatient follow-up with neurology and will return to the emergency department right away if her symptoms recur. Strict return precautions were given and she was discharged with prescription for Plavix after all questions were answered. She is completely neurologically intact and asymptomatic at time of discharge. Critical Care <Tico Rowan MD - Last Filed: 09/05/24 16:24> Critical Care Time Critical Care Time: Yes (neuro) Attestation: On 09/05/24, the high probability of a clinically significant, sudden or life threatening deterioration of the following system(s) required my full and direct attention, intervention and personal management. The time I documented below is in addition to time spent performing reported procedures but includes the following listed in this critical care notation. Total Time Total Critical Care Time: 45
[2024-09-05 13:09] LABS: Thyroid Stimulating Hormone 1.23 uIU/mL (0.465-4.68)
[2024-09-05] MEDS: IOPAMIDOL-370 (76%);100ML BOTTLE 80 ML IV (13:13)
[2024-09-05] MEDS: SODIUM CHLORIDE 0.9% 10ML SYR (RAD ONLY) 10 ML IV (13:13)
[2024-09-05] MEDS: 0.9 % SODIUM CHLORIDE 50 ML VIAL IV (13:13)
[2024-09-05 13:14] LABS: Hemoglobin A1C 5.5 % (4.0-6.0)
--- NOTE | 2024-09-05 13:15 | PC.NURSE ---
FATUMA WITH CARE MANAGEMENT APPROVES MRI.
--- NOTE | 2024-09-05 13:35 | MR_ITS ---
FINAL REPORT CLINICAL HISTORY: Right side numbnessx few days COMPARISON: None FINDINGS: Multi planar MR imaging was obtained through the brain without contrast. There is asymmetric abnormal signal most evident in the left insular cortex best seen on the axial images 16 and 17 of series 5. There may be cortical thinning. There may be subtle abnormal signal in the mesial temporal cortex bilaterally well seen on image 14 of series 5. The brain is otherwise homogeneous. On diffusion-weighted images there is no evidence of restricted diffusion. There is no evidence of hemorrhage. The visualized paranasal sinuses demonstrate normal signal voids. IMPRESSION: Abnormal signal left insular cortex and subtle abnormal signal in the mesial temporal cortex bilaterally. 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 Correlation with any known underlying malignancy recommended. Reviewed, Interpreted and Dictated by Horace Jose MD Transcribed by Kathleen Cortez Authenticated and [facility]
[2024-09-05 14:08] LABS: HIV Combo NEGATIVE (Negative)
--- NOTE | 2024-09-05 15:29 | PC.NURSE ---
lab called asking for 2 hour troponin, pt not in room at this time for lab drawer.
--- NOTE | 2024-09-05 15:58 | PC.NURSE ---
RETURNED FROM MRI
--- NOTE | 2024-09-05 16:03 | PC.NURSE ---
DR DIAZ AT BEDSIDE
[2024-09-05] MEDS: IRBESARTAN 150MG TAB 150 MG PO (16:33)
--- NOTE | 2024-09-05 17:08 | PC.NURSE ---
DR CARTER SPEAKING WITH [facility]
--- NOTE | 2024-09-05 17:08 | PC.NURSE ---
Called [facility] for a consult with Dr. Holloway.
--- NOTE | 2024-09-05 17:15 | PC.NURSE ---
DR CARTER SPEAKING WITH NEUROLOGY AT [facility]
--- NOTE | 2024-09-05 17:29 | PC.NURSE ---
Called Ignacio Graham and asked that the patient be changed to an Outpatient at the request of Dr. Holloway.
[2024-09-05] MEDS: CLOPIDOGREL 300MG TABLET 300 MG PO (17:33)
[2024-09-05 17:52] LABS: Troponin I < 0.01 ng/ml (0.00-0.034)
[2024-09-06 08:10] LABS: HCV Ab Non Reactive (Non Reactive)
== END 2024-09-05 17:42 | disposition home or self-care (01) ==
PROVIDERS: Emergency Medicine; Emergency Provider Emergency Medicine; PCP Internal Medicine Adolescent Medicine
DX: R93.0 Abnormal findings on diagnostic imaging of skull and head, not elsewhere classified (principal); R29.818 Other symptoms and signs involving the nervous system; R20.2 Paresthesia of skin
CPT/HCPCS: 70450; 70496; 70498; 70551; 71045; 80050; 80053; 80061; 83036; 83735; 83880; 84436; 84443; 84484; 85025; 85730; 86803; 87389; 93005; 99291; Q9967

== ENCOUNTER 2024-09-09 07:49 | Outpatient (CLI) | payer OTHER, SELFPAY ==
--- NOTE | 2024-09-09 07:55 | MR_ITS ---
FINAL REPORT TECHNIQUE: Multiplanar and multisequence imaging of the brain was obtained before and after contrast administration. CLINICAL HISTORY: Abnormal MRI of head 24 ml prohance COMPARISON: 09/05/2024 FINDINGS: The gyri and sulci are within normal limits for age. There is abnormal signal in the medial left temporal lobe and insular cortex. The current examination does not demonstrate right insular cortex involvement. No hydrocephalus. The cerebellum and brainstem have an unremarkable appearance. There are no areas of restricted diffusion on diffusion weighted images to suggest acute infarct. Soft tissues are without acute abnormality. There is subtle enhancement postcontrast administration involving the posterior aspect of the left insular cortex. This may be secondary to a viral encephalitis, autoimmune encephalitis, or limbic inflammatory change. IMPRESSION: Abnormal signal and enhancement in the medial left temporal lobe and insular cortex as described. This may be secondary to a viral encephalitis, autoimmune encephalitis, or limbic inflammatory change. 6-month follow-up MRI with and without contrast is suggested. No abnormal signal is identified in the right insular cortex on the current exam. Reviewed, Interpreted and Dictated by Arlene Blackburn MD Transcribed by Donna Fox Authenticated and [facility]
[2024-09-09] MEDS: GADOTERIDOL INJ 20ML SYRINGE 20 ML IV (08:35)
[2024-09-09] MEDS: GADOTERIDOL INJ 10ML SYRINGE 4 ML IV (08:35)
[2024-09-09] MEDS: SODIUM CHLORIDE 0.9% 10ML SYR (RAD ONLY) 10 ML IV (08:35)
[2024-09-09 10:56] LABS: Magnesium 1.8 mg/dl (1.6-2.3)
[2024-09-11 15:08] LABS: Antinuclear Antibodies (ANA) Negative (Negative)
== END 2024-09-09 23:59 | disposition home or self-care (01) ==
PROVIDERS: PCP Nurse Practitioner Family; Visit Provider Nurse Practitioner Family
DX: R93.0 Abnormal findings on diagnostic imaging of skull and head, not elsewhere classified (principal); R20.0 Anesthesia of skin; R20.2 Paresthesia of skin; R29.818 Other symptoms and signs involving the nervous system; I10 Essential (primary) hypertension
CPT/HCPCS: 36415; 70553; 83735; 86038; A9576

== ENCOUNTER 2024-11-06 11:04 | Outpatient (CLI) | payer OTHER, SELFPAY | END 2024-11-06 23:59 | disposition home or self-care (01) | LOC: RT 11:06 | PROVIDERS: PCP Nurse Practitioner Family; Visit Provider Physician Assistant Medical | DX: G45.9 Transient cerebral ischemic attack, unspecified (principal); I63.9 Cerebral infarction, unspecified | CPT/HCPCS: 93270; 93272 ==

== ENCOUNTER 2024-11-20 14:52 | Outpatient (CLI) | payer OTHER, SELFPAY ==
--- NOTE | 2024-11-20 14:52 | MM_ITS ---
PROCEDURE INFORMATION: Exam: MG Bilateral Diagnostic Breast Tomosynthesis Exam date and time: 11/20/2024 2:58 PM Age: 64 years old Clinical indication: Bilateral breast skin lesions TECHNIQUE: Imaging protocol: Bilateral Diagnostic tomosynthesis and 2D mammography including computer-aided detection (CAD) when performed. Unilateral or bilateral exam. COMPARISON: 1. MG MM DIG SCREENING MAMM BI W/CAD 02/13/2023 4:54 PM 2. MG MM DIG SCREENING MAMM BI W/CAD 02/16/2021 4:52 PM FINDINGS: MAMMOGRAPHY: Breast composition: There are scattered areas of fibroglandular density. Breast mammogram findings: There is no stellate mass, architectural distortion or suspicious microcalcifications in either breast to suggest malignancy. No skin thickening or axillary adenopathy. IMPRESSION: No mammographic evidence of malignancy. Annual bilateral mammographic screening is recommended unless otherwise clinically indicated. Dermatologic consultation is recommended for reported skin lesions on both breasts ASSESSMENT: BI-RADS Category 1: Negative.
== END 2024-11-20 23:59 | disposition home or self-care (01) ==
LOC: RAD 14:52
PROVIDERS: PCP Nurse Practitioner Family; Visit Provider Nurse Practitioner Family
DX: N64.9 Disorder of breast, unspecified (principal); L98.9 Disorder of the skin and subcutaneous tissue, unspecified
CPT/HCPCS: 77062; 77066; G0279

== ENCOUNTER 2025-03-11 12:01 | Outpatient (CLI) | payer OTHER, SELFPAY ==
--- OUTSIDE RECORDS SUMMARY | 2025-01-21 08:40 | XMS_ITS | Encounter Summary ---
Author Organization [facility] Address [address] [place] [address] Care Team Providers Care Research Spec Name Role Phone Caroline Shultz APRN Primary Care Provider [phone]- [phone] Reason for Visit * Consultation (Routine) - Closed Specialty Diagnoses / Procedures Referred By Contac t Referred To Contact Neurology Diagnoses Sensory deficit, right Acute ischemic left middle cerebral artery (MCA) stroke (CMS/HCC) Adam Pandey MD [address] [address] Phone: tel: fax: Referral ID Status Reason Start Date Expiration Date V isits Requested Visits Authorized [id number] Closed Specialty Services Required 09/25/2024 03/27/2026 1 1 Encounter Details Date Type Department Care Team (Late st Contact Info) Description 01/21/2025 8:40 AM EDT Office Visit [place] [facility] [address] [place] [address] Bridget Lion PA [id number] [place] [address] Acute ischemic left middle cerebral [...] any time in the past 12 m [facility], were you homeless or living in a alf (including now)? No 09/23/2024 Utilities Answer Date [...] Lion PA - 01/21/2025 8:40 AM EDT [facility] Subjective Herminia Murrell is [...] the interim. She completed cardiac monitoring with [facility], no atrial fibrillation captured in 30 days. She has an upcoming appointment with cardiology at [facility]. The patient has had no recent sudden [...] ischemic left middle cerebral artery (MCA) stroke ([facility]) Discharge Ambulatory referral to Neurology 2. Sensory [...] keppra. She will continue to follow with [facility] Cardiology. Patient to continue to follow regularly [...] 1 (one) time each day. fish oil ([place]-3) 500 MG capsule Take 2,400 mg by [...] Care Team (Late st Contact Info) Description 03/17/2025 1:00 PM EDT Appointment [facility] [address] [id number] [place] [id number] Miguel Perez MD [address] [facility] [id number] [place] [phone] 03/23/2025 1:45 PM EDT Clinical Support [facility] [address] [facility]nd [place] [address] 03/23/2025 2:00 PM EDT Office Visit [facility] [address] [facility], [address]nd [place] [address] Chente Sebastian MD [address] [facility] [address] [facility] [address] [place] [id number] documented as of this encounter Visit Diagnoses Diagnosis Acute ischemic left middle cerebral artery (MCA) stroke ([facility])- Primary Sensory deficit, right documented in this encounter Additional Health Concerns Assessment Noted Time PHQ-9 Depression Total Score: 6 10/08/19 2:13 PM EST A fall risk assessment has been complete d for the patient 01/21/2025 8:52 AM EDT A Body Mass Index follow-up plan has been documented for the patient 01/21/2025 9:19 AM EDT documented as of this encounter Care Teams Research Spec Relationship Specialty Start Date End Date Caroline Shultz APRN [facility] [place] [address] PCP - General 09/22/24 documented as of this encounter
--- OUTSIDE RECORDS SUMMARY | 2025-02-16 10:00 | XMS_ITS | Encounter Summary ---
Author Organization Healthcare Address [address] [place] [address] Care Team Providers Care Accreditation Manager Name Role Phone Caroline Shultz APRN Primary Care Provider [phone]- [phone] Encounter Details Date Type Department Care Team (Late st Contact Info) Description 02/16/2025 10:00 AM EDT Office Visit [place] [facility] [address], [address] [place] [address] Bridget Lion, PA [address] [place] [address] Aphasia (Primary Dx); Acute ischemic [...] any time in the past 12 m [facility], were you homeless or living in a intermediate (including now)? No 09/23/2024 Utilities Answer Date [...] Lion PA - 02/16/2025 10:00 AM EDT [facility] Neurology Stroke Clinic Subjective Herminia Murrell [...] anotherstroke. Her cardiology follow up is in [place] later this week. The patient has had [...] 1 (one) time each day. fish oil ([place]-3) 500 MG capsule Take 2,400 mg by [...] PM EDT Appointment [facility] Rad[facility] [address] [id number] [place] [address] Miguel Perez MD [id number] [place] [id number] 03/23/2025 1:45 PM EDT Clinical Support [facility] [address] [facility]nd [place] [address] 03/23/2025 2:00 PM EDT Office Visit [facility] [address] [facility] [place] [address] Chente Sebastian MD [address] [facility] Liyah Conde [facility] [address] [place] [address] documented as of this encounter Visit Diagnoses [...] documented as of this encounter Care Teams Accreditation Manager Relationship Specialty Start Date End Date Caroline Shultz APRN [address] [place] [address] PCP - General 09/22/24 documented as of this encounter
--- OUTSIDE RECORDS SUMMARY | 2025-02-16 15:08 | XMS_ITS | Encounter Summary ---
Author Organization [facility] Address [address] [place] [address] Care Team Providers Care Lead Recreation Assistant Name Role Phone Carrington Caroline Adrian MURPHY Primary Care Provider [phone] Reason for Referral * Consultation (Routine) - Authorized Specialty Diagnoses / Procedures Referred By Génesis salgado Referred To Contact Diagnoses Hyponatremia Hypertension, unspecified type Anaya Felton APRN [address] [address] Phone: tel: fax: Referral ID Status Reason Start Date Expiration Date Visits Requested Visits Authorized [id number] Authorized Specialty Services Required 02/26/2025 08/28/2026 1 1 * Consultation (Routine) - Authorized Specialty Diagnoses / Procedures Referred By Génesis salagdo Referred To Contact Physical Therapy Diagnoses Brain mass Sensory deficit, right Anaay Felton APRN [address] [address] Phone: tel: fax: Referral ID Status Reason Start Date Expiration Date Visits Requested Visits Authorized [id number] Authorized Consult and Treat 02/27/2025 08/29/2026 1 1 * Consultation (Routine) - Closed Specialty Diagnoses / Procedures Referred By Contact Referred To Contact Medical Oncology / Hematology and Oncology Diagnoses Brain mass Anaya Felton APRN [address] [address] Phone: tel:[phone] fax:[phone] [facility] [address] [place] [address] Phone: tel: fax: Referral ID Status Reason Start Date Expiration Date V isits Requested Visits Authorized [id number] Closed Specialty Services Required 02/26/2025 08/28/2026 1 1 * Consultation (Routine) - Authorized Specialty Diagnoses / Procedures Referred By Génesis salgado Referred To Contact Neurology Diagnoses Brain mass Focal seizure (CMS/HCC) Facial droop Expressive aphasia Acute right-sided weakness Anaya Felton ANALYSIS ENGINEER [address] [address] Phone: tel: fax: [facility] [address] [place] [address] Phone: tel: fax: Referral ID Status Reason Start Date Expiration Date Visits Requested Visits Authorized [id number] Authorized Specialty Services Required 02/26/2025 08/28/2026 1 1 * Consultation (Routine) - Closed Specialty Diagnoses / Procedures Referred By Génesis salgado Referred To Contact Radiation Oncology Diagnoses Brain mass Anaya Felton APRN [address] [address] Phone: tel: fax: [facility] [address] [place] [address] [id number] [place] [address] Phone: tel: fax: Referral ID Status Reason Start Date Expiration Date V isits Requested Visits Authorized [id number] Closed Specialty Services Required 02/25/2025 08/27/2026 1 1 Reason for Visit * Reason Comments difficulty speaking * Auth/Cert (Routine) Specialty Diagnoses / Procedures Referred By Génesis salgado Referred To Contact Diagnoses Brain tumor (benign) (CMS/HCC) Brain mass Ned Menendez MD [address] [address] Phone: tel: fax: [facility]patient [address] [place] [address] Phone: tel: Referral ID Status Reason Start Date Expiration Date Visits Re quested Visits Authorized [id number] 1 1 Encounter Details Date Type Department Care Team (Latest Contact Info) Description 02/16/2025 3:08 PM EDT - 02/27/2025 2:24 PM EDT Hospital Encounter [facility] [address] [place] [address] Maximus Ambrocio, DO [address] [place] [address] Ned Menendez MD [address] [address] Sanchez Zaldivar MD [address] [address] Brain mass (Primary Dx); Hyponatremia; [...] any time in the past 12 m [facility], were you homeless or living in a chcf (including now)? No 09/23/2024 Humiliation, Afraid, Rape, [...] any time in the past 12 m [facility], were you homeless or living in a chcf (including now)? No 02/19/2025 Utilities Answer Date [...] 2 days. 18 tablet 02/27/2025 fish oil (Oglesby-3) 500 MG capsule Take 2,400 mg by [...] discharge patient today. Foreign Marshall DO PGY-2 [facility] - Internal Medicine Epic Chat preferred; Pager [phone] Cosigned by Ede Ruiz MD at 03/07/2025 [...] ordered and to be delviered bedside from [facility]. Pt d/c to home address. No other CM needs identified. Guy Virk LCSW * Samuel Rodriguez - Sherin Bynum RN - 02/27/2025 9:46 AM EDT Images from the original note were not included. 49189 Depression: Tips to Help Yourself As your [...] when you can. Go to a movie, [employer], mandaeism service, or social event. Talk openly with [...] problems. Last Reviewed Date: 2023 00:00:00 ?? 3752-8199 The [employer]. All rights reserved. This information is not intended as a substitute for professional medical care. Always follow your healthcare professional's instructions. * Samuel Rodriguez - Sherin Bynum RN - 02/27/2025 9:45 AM EDT Images from the original note were not included. 83434 What is a Focal Seizure (Partial Seizure)? [...] Last Reviewed Date: 2023 00:00:00 ?? [employer]. All rights reserved. This information is not intended as a substitute for professional medical care. Always follow your healthcare professional's instructions. * Sherin Wolfe RN - 02/27/2025 9:45 AM EDT Images from the original note were not included. 06991 What Is Aphasia? Aphasia is a loss [...] Last Reviewed Date: 2024 00:00:00 ?? [employer]. All rights reserved. This information is not intended as a substitute for professional medical care. Always follow your healthcare professional's instructions. * Sherin Wolfe RN - 02/27/2025 9:45 AM EDT Images from the original note were not included. 89989 Aphasia: Improving Communication Aphasia is a condition [...] don?t. Last Reviewed Date: 2024 00:00:00 ?? 4120-0620 [employer]. All rights reserved. This information is not intended as a substitute for professional medical care. Always follow your healthcare professional's instructions. * Samuel Rodriguez - Sherin Bynum RN - 02/27/2025 9:45 AM EDT Images from the original note were not included. [id number] Brain Tumor Your body makes new cells [...] holidays. Last Reviewed Date: 2024 00:00:00 ?? [id number] [employer]. All rights reserved. This information is not [...] and Address: Caroline Shultz APRN [address] [facility], [place] [address] Referring provider name and address: No referring provider defined for this encounter. Chief Concern, Brief History of Present Illness, and Hospital Course Wali Murrell is a 64 y.o. female with history of HTN, T2DM, depression, GERD, and reported focal seizure who presented to the [facility] emergency department on 02/16/2025 with expressive [...] 81 mg daily when appropriate, follow-up with [facility] Neurology Clinic in 8-12 weeks. Patient provided [...] oil 500 MG capsule Commonly known as: Oglesby-3 Take 2,400 mg by mouth daily. levETIRAcetam [...] Your Medications These medications were sent to [facility] - [place], [place] - [address] [place] [id number] acetaminophen 500 MG tablet cyclobenzaprine 5 MG [...] 03/10/2025 10:00 AM Sheba Fisher APRN [facility] 03[facility]16/2025 9:30 AM Sanchez Zaldivar MD [facility] Test Results Pending At Discharge Pending Labs [...] would like to follow here at the [facility]. - final treatment planning pending final pathology [...] would like to follow here at the [facility]. - final treatment planning pending final pathology [...] would like to follow here at the [facility]. - final treatment planning pending final pathology [...] would like to follow here at the [facility]. - final treatment planning pending final pathology [...] Normotensive - Sodium Goals: Normonatremia - recommend PT/OT/PSYCHIATRIC SECURITY NURSE evaluation - No indication to obtain echo with most recently obtained on 09/2024 - follow-up w/[facility] Neurology Clinic in 8-12 weeks following discharge [...] Normotensive - Sodium Goals: Normonatremia - recommend PT/OT/PSYCHIATRIC SECURITY NURSE evaluation - No indication to obtain echo with most recently obtained on 09/2024 - follow-up w/[facility] Neu[facility] in 8-12 weeks following discharge [...] Normotensive - Sodium Goals: Normonatremia - recommend PT/OT/PSYCHIATRIC SECURITY NURSE evaluation - No indication to obtain echo [...] mg 20 mg Oral BID Anaya Felton ANALYSIS ENGINEER 20 mg at 02/26/25 0947 nebivolol (Bystolic) tablet 5 mg 5 mg Oral Daily Ranjana Yu MD 5 mg at 02/26/25917 NIFEdipine XL (Procardia XL) 24 hr tablet 30 mg 30 mg Oral Daily Anaya Felton ANALYSIS ENGINEER 30 mg at 02/26/25 0947 ondansetron ODT [...] would like to follow here at the [facility]. - final treatment planning pending final pathology [...] Normotensive - Sodium Goals: Normonatremia - recommend PT/OT/PSYCHIATRIC SECURITY NURSE evaluation - No indication to obtain echo with most recently obtained on 09/2024 - follow-up w/[facility] Neu[facility] in 8-12 weeks following discharge [...] any questions or concerns. Anaya Felton, CARIDAD, ANALYSIS ENGINEER Advanced Practice Provider Department of Neurosurgery [facility] * Progress Notes - Jules Wagner, [...] file Social Connections: Unknown (06/18/2023) Received from [facility] Family and Community Support Help with Day-to-Day [...] or ankle clonus Coordination: no ataxia with [id number]-[id number] and jlqx-zt-[id number] testing Gait/Station: Not observed Cortical: No Extinction [...] Normotensive - Sodium Goals: Normonatremia - recommend PT/OT/PSYCHIATRIC SECURITY NURSE evaluation - No indication to obtain echo with most recently obtained on 09/2024 - follow-up /[facility] in 8-12 weeks following discharge [...] Past Medical History: Diagnosis Date Brain bleed ([facility]) 09/02/2024 Small, went to ER Headache Hypertension [...] list: Left insular brain mass, 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 Review of Systems Review of Systems All other systems reviewed and are negative. --Oncology History-- [Associated problem not found] Oncology History No history exists. Past Medical, Surgical, Family, and Social History: Reviewed by me; any relevant updates made in [employer]. Social History Lives in [facility], [place] Allergies Reviewed by me; any relevant updates made in [employer]. Medications Current Medications[1] Physical Exam Vitals: 02/25/25 [...] Labs, Imaging, and Microbiology Reviewed personally in [facility]. Notable as discussed in Assessment and Plan. Pathology: Pending or [1] Current Facility-Administered Medications: acetaminophen (Tylenol) tablet 1,000 mg, 1,000 mg, Oral, q6h [facility], John Bhat MD, 1,000 mg at 02/25/25 1211 acetaminophen (Tylenol) tablet 650 mg, 650 mg, Oral, q6h PRN, Nipper, Anaya M, ANALYSIS ENGINEER bisacodyl (Dulcolax) suppository 10 mg, 10 mg, Rectal, Daily PRN, Nipper, Anaya M, ANALYSIS ENGINEER cyclobenzaprine (Flexeril) tablet 5 mg, 5 mg, Oral, TID, John Bhat MD, 5 mg at 02/25/25 1506 cyclobenzaprine (Flexeril) tablet 5 mg, 5 mg, Oral, TID PRN, Nipper, Anaya M, ANALYSIS ENGINEER dexamethasone (Decadron) injection 4 mg, 4 mg, Intravenous, q6h, Nipper, Anaya M, ANALYSIS ENGINEER, 4 mg at 02/25/25 1211 heparin (porcine) injection 7,500 Units, 7,500 Units, Subcutaneous, q8h, Nipper, Anaya M, ANALYSIS ENGINEER, 7,500 Units at 02/25/25 1506 hydrALAZINE (Apresoline) [...] 1,000 mg, 1,000 mg, Oral, BID, Anaya Felton, ANALYSIS ENGINEER, 1,000 mg at 02/25/25837 lisinopril tablet 20 mg, 20 mg, Oral, BID, Anaya Felton ANALYSIS ENGINEER, 20 mg at 02/25/25837 nebivolol (Bystolic) tablet 5 mg, 5 mg, Oral, Daily, Ranjana Yu MD, 5 mg at 02/25/25838 NIFEdipine XL (Procardia XL) 24 hr tablet 30 mg, 30 mg, Oral, Daily, Anaya Felton, ANALYSIS ENGINEER, 30 mg at 02/25/25838 ondansetron ODT (Zofran-ODT) disintegrating tablet 4 mg, 4 mg, Oral, q6h PRN OR ondansetron (Zofran) injection 4 mg, 4 mg, Intravenous, q6h PRN, Katharine Oreilly MD pantoprazole (Protonix) EC tablet 40 mg, 40 mg, Oral, Daily, Hakan Jainus A, 40 mg at polyethylene glycol (Miralax) packet 17 g, 17 g, Oral, BID, Anaya Felton, ANALYSIS ENGINEER, 17 g at senna-docusate (Maggy-Colace) 8.6-50 MG per tablet 2 tablet, 2 tablet, Oral, BID, Anaya Felton, ANALYSIS ENGINEER, 2 tablet at 02/25/25837 sertraline (Zoloft) tablet [...] tumor resection - consult radiation oncology and [facility] oncology - IV dex 4mg q6hrs - [...] and recovery * Progress Notes - Anaya Feltno APRN - 02/25/2025 12:25 PM EDT Neurosurgery [...] mg 4 mg Intravenous q6h Anaya Felton ANALYSIS ENGINEER 4 mg at 211 heparin (porcine) injection [...] mg 20 mg Oral BID Anaya Felton ANALYSIS ENGINEER 20 mg at 02/25/25 0838 nebivolol (Bystolic) [...] any questions or concerns. Anaya Felton, CARIDAD, ANALYSIS ENGINEER Advanced Practice Provider Department of Neurosurgery [facility] * Progress Notes - Jose Elias [...] trend Risk: - Foreign Marshall DO PGY-2 [facility] - Internal Medicine Epic Chat preferred; Pager [phone] Cosigned by Ede Ruiz MD at 03/04/2025 [...] 02/25/2025 10:08 AM EDT Pastoral Care Note Balance And Hairspring Assembler consulted with care team, and provided emotional and spiritual support the patient and mistyaughters, they asked city planner to pray for them. Referral From: Nurse Pastoral Care Provided For: Patient, Child(stefania) Patient Profile: Consult Reasons: Emotional support, Prayer, Non-urgent referral Spiritual Assessment: Support Systems/ Spiritual Resources: Prayer, Nettie Spiritual Needs: Emotional support, Prayer, Spiritual support Interventions: Interventions Provided: Emotional support, Spiritual support, Prayer, Consulted with care team, Introduced Patient/Family to [employer] Hairspring Assembl[employer] Services, Affirm acceptance and gratitude Pastoral Care Outcomes: Patient Outcomes: Expresses acceptance, Is knowledgeable about Geographic Analyst Services, Appreciative ofChaplain Support, Gratitude Cosigned by Niki Crow at 02/25/2025 11:27 AM EDT Associated attestation - Niki Crow - 02/25/2025 11:27 AM EDT This is to attest city planner ad operations intern chart note has been reviewed and okayed. 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 Use of Brainlab neuronavigation Use of ultrasonic Sonopet aspirator Microsurgical technique Modifier 22: Posterior insular tumor - location and vascularity added significant time and complexity to the operation Attending Surgeon(s): * Sanchez Zaldivar - Primary Farmer Cash Grain(s): * John Bhat MD - Resident - [...] procedure, the patient was taken out of [place] head pins, awakened, extubated, and moved to [...] 650 mg 650 mg Oral q6h PRN [facility], [facility], ANALYSIS ENGINEER bisacodyl (Dulcolax) suppository 10 mg 10 mg Rectal Daily PRN [facility], [facility], ANALYSIS ENGINEER dexamethasone (Decadron) injection 4 mg 4 mg Intravenous q6h [facility], ANALYSIS ENGINEER 4 mg at 612 [Held by provider] heparin (porcine) injection 7,500 Units 7,500 Units Subcutaneous q8h [facility], [facility], ANALYSIS ENGINEER 7,500 Units at 02/23/25 1611 hydrALAZINE (Apresoline) [...] tablet 1,000 mg 1,000 mg Oral BID [facility] Anaya M, ANALYSIS ENGINEER 1,000 mg at 840 lisinopril tablet 20 mg 20 mg Oral BID [facility], ANALYSIS ENGINEER 20 mg at 02/24/25 0840 nebivolol (Bystolic) tablet 5 mg 5 mg Oral Daily Ranjana Yu MD 5 mg at 02/24/25 0840 NIFEdipine XL (Procardia XL) 24 hr tablet 30 mg 30 mg Oral Daily [facility] Anaya M, ANALYSIS ENGINEER 30 mg at 02/24/25 0840 ondansetron ODT [...] any questions or concerns. Anaya Felton, CARIDAD, ANALYSIS ENGINEER Advanced Practice Provider Department of Neurosurgery [facility] * Progress Notes - Guy Virk - 02/23/2025 9:49 AM EDT SW met with NS Team to discuss pt POC. Per team, pt to OR tomorrow. No CM needs identified at this time, SW remains available to follow/assist. Guy Virk LCSW * Consults - Ember iWnchester RD - 02/23/2025 9:44 AM EDT Adult Nutrition Evaluation Note Wali Murrell 64 y.o. female CSN: [id number] Room/Bed 125/125A Nutrition evaluation type: assessment Reason for evaluation: [facility] Hospital course: 64 yo F presenting with [...] (97.4 ??F) Oxygen Therapy: None (Room air) Tracy Coma Scale Score: 15 [place]onte Scale Score: [...] Weight Evaluation: Extreme Obesity (BMI > 40) [place] Body Weight (kg): 59.1 Percent [place] Body Weight: 199 Adjusted Body Weight (kg): 73.75 Estimated Needs: Metabolic Cart Study Results: Current Nutrition Intake: Diet Supplements: None Diet Order: Adult Diet Diet Texture: Regular Adult Fluid Restriction / 24 hr: 1000 ml fluid Percent Meals Eaten (%): 75-100% Diet Experience and Nutrition History: Diet Education Provided: Will monitor Pertinent home medications: Baptism needs: Nutrition Focused Physical Exam: Physical exam [...] up perdepartment acuity. Acuity Level: [address] [1] Past Medical History: Diagnosis Date Brain bleed (CMS/HCC) 09/02/2024 Small, went to ER Headache Hypertension [2] No past surgical history on file. [3] Current Facility-Administered Medications: acetaminophen (Tylenol) tablet 650 mg, 650 mg, Oral, q6h PRN, Nipper, Anaya M, ANALYSIS ENGINEER bisacodyl (Dulcolax) suppository 10 mg, 10 mg, Rectal, Daily PRN, Nipper, Anaya M, ANALYSIS ENGINEER dexamethasone (Decadron) injection 4 mg, 4 mg, Intravenous, q6h, Nipper, Anaya M, ANALYSIS ENGINEER, 4 mg at 02/23/25 0514 heparin (porcine) injection 7,500 Units, 7,500 Units, Subcutaneous, q8h, Anaya Felton, ANALYSIS ENGINEER, 7,500 Units at 02/23/25 0032 hydrALAZINE (Apresoline) [...] mg, 1,000 mg, Oral, BID, Anaya Felton ANALYSIS ENGINEER, 1,000 mg at 02/23/25 08 lisinopril tablet 20 mg, 20 mg, Oral, BID, Anaya Felton ANALYSIS ENGINEER, 20 mg at 02/23/25 08 nebivolol (Bystolic) [...] g, 17 g, Oral, BID, Anaya Felton ANALYSIS ENGINEER, 17 g at senna-docusate (Maggy-Colace) 8.6-50 MG [...] & fluid restriction: 1000 mL; NPO at MD. Code status: Full Code Thank you for [...] mg 1,000 mg Oral BID Anaya Felton ANALYSIS ENGINEER 1,000 mg at lisinopril tablet 20 mg 20 mg Oral BID Anaya Felton, ANALYSIS ENGINEER 20 mg at 02/22/252055 nebivolol (Bystolic) tablet [...] g 17 g Oral BID Anaya Felton, ANALYSIS ENGINEER 17 g at 02/22/25 09 senna-docusate (Maggy-Colace) [...] any questions or concerns. Anaya Felton DNP, ANALYSIS ENGINEER Advanced Practice Provider Department of Neurosurgery [facility] * Significant Event - Dov Mccurdy [...] 1,000 mg 1,000 mg Oral BID [facility] ANALYSIS ENGINE[facility] 1,000 mg at 900 lisinopril tablet 20 mg 20 mg Oral BID Ko Feltonah Ever, ANALYSIS ENGINEER 20 mg at 02/22/25 0901 nebivolol (Bystolic) [...] g 17 g Oral BID Anaya Felton, ANALYSIS ENGINEER 17 g at 02/22/25 0900 senna-docusate (Maggy-Colace) 8.6-50 MG per tablet 2 tablet 2 tablet Oral BID Anaya Felton , ANALYSIS ENGINEER 2 tablet at 02/21/252054 sertraline (Zoloft) tablet [...] MD Resident Physician, PGY-2 Department of Neurosurgery [facility] Cosigned by Israel Guillen MD at [...] mg 4 mg Intravenous q6h NipAnaya aguilar ANALYSIS ENGINEER 4 mg at 147 glucose (Glutose) 40 [...] mg 20 mg Oral BID Anaya Felton ANALYSIS ENGINEER 20 mg at 02/20/252108 nebivolol (Bystolic) tablet 5 mg 5 mg Oral Daily Ranjana Yu MD 5 mg at 02/20/25 0818 ondansetron ODT (Zofran-ODT) disintegrating tablet 4 mg 4 mg Oral q6h PRN Katharine Orielly MD Or ondansetron (Zofran) injection 4 mg [...] MD Resident Physician, PGY-2 Department of Neurosurgery [facility] Cosigned by Israel Guillen MD at [...] mg 4 mg Intravenous q6h NipAnaya aguilar, ANALYSIS ENGINEER 4 mg at 816 glucose (Glutose) 40 [...] mg 20 mg Oral BID Anaya Felton ANALYSIS ENGINEER 20 mg at 02/20/25815 nebivolol (Bystolic) tablet 5 mg 5 mg Oral Daily Ranjana Yu MD 5 mg at 02/20/25817 ondansetron ODT (Zofran-ODT) disintegrating tablet 4 mg 4 mg Oral q6h PRN Katharine Oreilly MD Or ondansetron (Zofran) injection 4 mg 4 mg Intravenous q6h PRN Kathraine Oreilly MD pantoprazole (Protonix) EC tablet 40 mg 40 mg Oral Daily Hakan Jainus A 40 mg at 02/20/25815 polyethylene glycol (Miralax) packet 17 g 17 g Oral BID Anaya Felton ANALYSIS ENGINEER 17 g at 02/19/252039 senna-docusate (Maggy-Colace) 8.6-50 [...] any questions or concerns. Anaya Nipper, DNP, ANALYSIS ENGINEER Advanced Practice Provider Department of Neurosurgery [facility] * Progress Notes - Saige Alvarez [...] Center 03/02/2025 9:00 AM Bridget Lion PA [facility] Electronically Signed by: Saige Alvarez - 02/20/2025 - 7:46 AM Cosigned by Anaya Hdez MD at 02/20/2025 6:10 PM EDT Associated attestation - Anaya Hdez MD - 02/20/2025 6:10 PM EDT I saw and evaluated the patient with the medical/MUSIC PRODUCER/PA student. I discussed the case with the medical/MUSIC PRODUCER/PA student and agree with the findings and [...] Note Wali Murrell 64 y.o. female CSN: [id number] Admission: 02/16/2025 3:08 PM Primary Problem: Brain tumor (benign) (CMS/HCC) Wheel Alignment Technician reviewed chart and spoke with patient and daughter at bedside to complete this InitialCase Management Assessment. PCP: Caroline Shultz APRN Emergency Contact: No emergency contact information on file. Insurance: Primary Visit Coverage Payer Plan Sponsor Code Group Number Group Name MEDICARE MEDICARE PART A ONLY Primary Visit Coverage Subscriber Subscriber ID Subscriber Name Subscriber SSN Subscriber Address [id number] WALI MURRELL [id number] [place] [address] Secondary Visit Coverage Payer Plan Sponsor Code Group Number Group Name [facility] [id number] Secondary Visit Coverage Subscriber Subscriber ID Subscriber Name Subscriber SSN Subscriber Address [id number] WALI MURRELL [id number] [place] [address] Patient information: Primary Caregiver: Self Support System: Immediate family Daily Living Activities: Functional Status: Independent Living Arrangements: Alone Type of Residence: Private residence [address] [place] [address] Current DME: Equipment Currently Used at Home: [...] Dialysis Services: None Living Will/Advance Directive/Power of Light Adjuster /Guardian: Have you reviewed your Advance Directive and is it valid for this stay?: Yes Advance Directive: Patient would not like information Information Provided on Healthcare Directives: Yes Pre-existing DNR/DNI Order: No Patient Requests Assistance: Yes, referral made to catalytic case operator Additional Comments: Provided introduction and information on [...] Intramuscular q15 min PRN Nipper, Anaya M, ANALYSIS ENGINEER heparin (porcine) injection 7,500 Units 7,500 Units [...] APRN Advanced Practice Provider Department of Neurosurgery [facility] * Assessment & Plan Note - [...] any questions or concerns. Anaya Felton DNP, ANALYSIS ENGINEER Advanced Practice Provider Department of Neurosurgery [facility] * Care Plan - Sharmila Biggs [...] Please call with any questions or concerns. [phone] Ranjana Yu MD Resident Physician, PGY-2 Department of Neurosurgery [facility] Cosigned by Ned Menendez MD at [...] Resident Physician, PGY-2 Department of neurosurgery Pager: [phone] [1] Current Facility-Administered Medications Medication Dose Route [...] 1 (one) time each day. fish oil (Oglesby-3) 500 MG capsule Take 2,400 mg by [...] Jackie Marin MD Director of Pediatric Neurosurgery Circuit Recorder of Neurosurgery Circuit Recorder of Pediatrics * ED Provider Notes - [...] normal. Affect is tearful. Behavior: Behavior normal. Tracy Coma Scale Score: 15 ED Course & [...] Past Medical History: Diagnosis Date Brain bleed ([facility]) 09/02/2024 Small, went to ER Headache Hypertension [...] PM EDT Appointment P[facility] Radiation [address] [id number] [place] [address] Miguel Perez MD [address] [facility] [id number] [place] [address] 03/23/2025 1:45 PM EDT Clinical Support Pav [facility] Head, Neck & Respiratory [address] [facility]nd [place] [address] 03/23/2025 2:00 PM EDT Office Visit Pav [facility] Head, Neck & Respiratory [address] [facility] [place] [address] Chente Sebastian MD [address] [facility] Liyah Conde [facility] [address] [place] [address] Scheduled Referrals Name Type Priority Associated Diagnoses [...] 650 mg Oral q6h PRN Anaya Felton, ANALYSIS ENGINEER bacitracin (1g packet) ointment 1 packet 1 packet Topical BID Anaya Felton APRN 1 packet at 02/27/25 0839 bisacodyl (Dulcolax) suppository 10 mg 10 mg Rectal Daily PRN Anaya Felton, ANALYSIS ENGINEER cyclobenzaprine (Flexeril) tablet 5 mg 5 mg [...] tablet 4 mg 4 mg Oral BID Hakan Jainus A Followed by [START ON 03/05/2025] dexamethasone [...] Anaya Felton APRN 30 mg at 02/27/25 0839 ondansetron ODT (Zofran-ODT) disintegrating tablet 4 [...] Daily Markmeltito Michael A 50 mg at 02/27/25 0839 sodium chloride 0.9 % flush 10 mL 10 mL Intravenous q12h Katharine Oreilly MD 10 mL at 02/26/252036 And sodium chloride 0.9 % flush 10 mL 10 mL Intravenous PRN Katharine Oreilly MD Anaya Felton APRN NEUROLOGY ORDERABLES Final R esult * (ABNORMAL) Basic metabolic panel (02/27/2025 8:59 AM EDT) [facility] Glucose, Plasma 95 74 - 99 mg/dL 02/27/2025 9:40 AM EDT [facility] BUN, Plasma 21 8 - 23 mg/dL 02/27/2025 9:40 AM EDT [facility] Creatinine, Plasma 0.64 0.60 - 1.10 mg/dL 02/27/2025 9:40 AM EDT [facility] BUN/Creatinine Ratio 33 02/27/2025 9:40 AM EDT [facility] Sodium, Plasma 132(L) 136 - 145 mmol/L 02/27/2025 9:40 AM EDT [facility] Potassium, Plasma 4.2 3.6 - 4.9 mmol/L 02/27/2025 9:40 AM EDT [facility] Chloride, Plasma 97 97 - 107 mmol/L 02/27/2025 9:40 AM EDT [facility] CO2, Plasma 23 22 - 29 mmol/L 02/27/2025 9:40 AM EDT [facility] Anion Gap 12 6 - 16 mmol/L 02/27/2025 9:40 AM EDT [facility] Total Calcium, Plasma 9.2 8.9 - 10.2 mg/dL 02/27/2025 9:40 AM EDT [facility] eGFRcr 97.6 mL/min/1.7 3m*2 02/27/2025 9:40 AM EDT [facility] Comment:Reported eGFRcr in m L/min/1.73m2 is based the CKD-EPI 2020 equation that does not use a race coefficient. Blood Venous blood specimen / Unknown Venipuncture / Unknown 02/27/2025 8:59 AM EDT 02/27/2025 9:08 AM EDT us Ede Ruiz MD LAB BLOOD ORDERABLES Final R esult [facility] [address] [place] [address] * Troponin T, High Sensitivity, 2 Hour, Plasma (02/26/2025 11:08 AM EDT) Troponin T, High Sensitivity, 2 Hour 8 <14 ng/L 02/26/2025 11:43 AM EDT [facility] Blood Venous blood specimen / Unknown Venipuncture / Unknown 02/26/2025 11:08 AM EDT 02/26/2025 11:15 AM EDT Result [facility] Ned Menendez MD LAB BLOOD ORDERABLES Final Res ult Performing Organization Address [facility] Co de Phone Number [facility] [address] [place] [address] * ECG Adult (02/26/2025 9:51 AM EDT) EKG DIAGNOSIS CLASS Normal MUSE ECG Ventricular Rate 73 BPM MUSE ECG Atrial Rate 73 BPM MUSE ECG UT Interval 176 ms MUSE ECG QRSD Interval 80 ms MUSE ECG QT Interval 380 ms MUSE ECG QTC Interval 418 ms MUSE ECG P [place] 9 degrees MUSE ECG R [place] 0 degrees MUSE ECG T Wave [place] 27 degrees MUSE ECG Diagnosis Normal sinus rhythm MUSE ECG Diagnosis MUSE ECG Diagnosis MUSE ECG Diagnosis Confirmed by Tasneem Ludwig ([id number]) on 02/27/2025 10:30:15 AM MUSE ECG 02/26/2025 9:51 AM EDT 02/27/2025 10:30 AM EDT Ned Menendez MD ECG ORDERABLES Final Result Performing Organization Address [facility] Co de Phone Number MUSE ECG * Troponin T, High Sensitivity, 0 Hour Plasma, Reflex to 2 Hour (02/26/2025 8:26 AM EDT) Troponin T, High Sensitivity, 0 Hour 11 <14 ng/L 02/26/2025 9:08 AM EDT [facility] Blood Venous blood specimen / Unknown Venipuncture / Unknown 02/26/2025 8:26 AM EDT 02/26/2025 8:38 AM EDT Result [facility] Ned Menendez MD LAB BLOOD ORDERABLES Final Res ult Performing Organization Address City/[facility] Co de Phone Number [facility] [address] [place] [address] * Protime-INR (02/26/2025 8:26 AM EDT) Prothrombin Time 13.4 12.0 - 14.3 sec LAB COAGULATION METHOD 02/26/2025 9:01 AM EDT [facility] INR 1.0 0.9 - 1.1 LAB COAGULATION METHOD 02/26/2025 9:01 AM EDT [facility] Blood Venous blood specimen / Unknown Venipuncture / Unknown 02/26/2025 8:26 AM EDT 02/26/2025 8:38 AM EDT Narrative [facility] - 02/26/2025 9:01 AM EDT OPTIMAL INR RANGES FOR PATIENT ON ORAL ANTICOAGULANT THERAPY Prevention of venous thromboembolism INR 2.0 to 3.0 In patients with heart disease: Atrial fibrillation INR 2.0 to 3.0 Valvular heart disease INR 2.0 to 3.0 Tissue heart valves INR 2.0 to 3.0 Mechanical prosthetic valves INR 2.5 to 3.5 Prevention of recurrent NE INR 2.5 to 3.5 Ned Menendez MD LAB BLOOD ORDERABLES Final Res ult Performing Organization Address City/[facility]/ZIP Co de Phone Number [facility] [address] [place] [address] * APTT (02/26/2025 8:26 AM EDT) aPTT 28 25 - 35 sec LAB COAGULATION METHOD 02/26/2025 9:01 AM EDT [facility] Blood Venous blood specimen / Unknown Venipuncture / Unknown 02/26/2025 8:26 AM EDT 02/26/2025 8:38 AM EDT Ned Menendez MD LAB BLOOD ORDERABLES Final Res ult [facility] [address] [place] [address] * (ABNORMAL) CBC and differential (02/26/2025 8:26 AM EDT) WBC Count 14.93(H) 3.70 - 10.30 10*3/uL LAB HEMATOLOGY METHOD 02/26/2025 8:45 AM EDT [facility] RBC Count 4.36 3.90 - 5.20 10*6/uL LAB HEMATOLOGY METHOD 02/26/2025 8:45 AM EDT [facility] HGB 12.3 11.2 - 15.7 g/dL LAB HEMATOLOGY METHOD 02/26/2025 8:45 AM EDT [facility] HCT 36.1 34.0 - 45.0 % LAB HEMATOLOGY METHOD 02/26/2025 8:45 AM EDT [facility] Platelet Count 349 155 - 369 10*3/uL LAB HEMATOLOGY METHOD 02/26/2025 8:45 AM EDT [facility] MCV 83 79 - 98 fL LAB HEMATOLOGY METHOD 02/26/2025 8:45 AM EDT [facility] MCH 28.2 26.0 - 32.0 pg LAB HEMATOLOGY METHOD 02/26/2025 8:45 AM EDT [facility] MCHC 34.1 30.7 - 35.5 g/dL LAB HEMATOLOGY METHOD 02/26/2025 8:45 AM EDT [facility] RDW 13.1 11.5 - 14.5 % LAB HEMATOLOGY METHOD 02/26/2025 8:45 AM EDT [facility] MPV 9.2 8.8 - 12.5 fL LAB HEMATOLOGY METHOD 02/26/2025 8:45 AM EDT [facility] nRBC 0.0 <=0.0 per 100 WBCs LAB HEMATOLOGY METHOD 02/26/2025 8:45 AM EDT [facility] Differential Type Automated LAB HEMATOLOGY METHOD 02/26/2025 8:45 AM EDT [facility] Neutrophils % 80 % LAB HEMATOLOGY METHOD 02/26/2025 8:45 AM EDT [facility] Lymphocytes % 9 % LAB HEMATOLOGY METHOD 02/26/2025 8:45 AM EDT [facility] Monocytes % 10 % LAB HEMATOLOGY METHOD 02/26/2025 8:45 AM EDT [facility] Eosinophils % 0 % LAB HEMATOLOGY METHOD 02/26/2025 8:45 AM EDT [facility] Basophils % 0 % LAB HEMATOLOGY METHOD 02/26/2025 8:45 AM EDT [facility] Immature Granulocytes % 1 % LAB HEMATOLOGY METHOD 02/26/2025 8:45 AM EDT [facility] Neutrophils Absolute 11.91(H) 1.60 - 6.10 10*3/uL LAB HEMATOLOGY METHOD 02/26/2025 8:45 AM EDT [facility] Lymphocytes Absolute 1.41 1.20 - 3.90 10*3/uL LAB HEMATOLOGY METHOD 02/26/2025 8:45 AM EDT [facility] Monocytes Absolute 1.43(H) 0.30 - 0.90 10*3/uL LAB HEMATOLOGY METHOD 02/26/2025 8:45 AM EDT [facility] Eosinophils Absolute 0.00 0.00 - 0.50 10*3/uL LAB HEMATOLOGY METHOD 02/26/2025 8:45 AM EDT [facility] Basophils Absolute 0.02 0.00 - 0.10 10*3/uL LAB HEMATOLOGY METHOD 02/26/2025 8:45 AM EDT [facility] Immature Granulocytes Absolute 0.16(H) 0.00 - 0.06 10*3/uL LAB HEMATOLOGY METHOD 02/26/2025 8:45 AM EDT [facility] Blood Venous blood specimen / Unknown Venipuncture / Unknown 02/26/2025 8:26 AM EDT 02/26/2025 8:38 AM EDT Narrative [facility] - 02/26/2025 8:45 AM EDT Therapeutic decision making should be based on absolute values, rather than percentages. us Ned Menendez MD LAB BLOOD ORDERABLES Final Res ult [facility] [address] [place] [address] * (ABNORMAL) Basic metabolic panel (02/26/2025 8:26 AM EDT) Glucose, Plasma 128(H) 74 - 99 mg/dL 02/26/2025 9:08 AM EDT [facility] BUN, Plasma 16 8 - 23 mg/dL 02/26/2025 9:08 AM EDT [facility] Creatinine, Plasma 0.61 0.60 - 1.10 mg/dL 02/26/2025 9:08 AM EDT [facility] BUN/Creatinine Ratio 26 02/26/2025 9:08 AM EDT [facility] Sodium, Plasma 128(L) 136 - 145 mmol/L 02/26/2025 9:08 AM EDT [facility] Potassium, Plasma 4.5 3.6 - 4.9 mmol/L 02/26/2025 9:08 AM EDT [facility] Chloride, Plasma 94(L) 97 - 107 mmol/L 02/26/2025 9:08 AM EDT [facility] CO2, Plasma 22 22 - 29 mmol/L 02/26/2025 9:08 AM EDT [facility] Anion Gap 12 6 - 16 mmol/L 02/26/2025 9:08 AM EDT [facility] Total Calcium, Plasma 9.1 8.9 - 10.2 mg/dL 02/26/2025 9:08 AM EDT [facility] eGFRcr 98.7 mL/min/1.7 3m*2 02/26/2025 9:08 AM EDT [facility] Comment:Reported eGFRcr in m L/min/1.73m2 is based the CKD-EPI 2020 equation that does not use a race coefficient. Blood Venous blood specimen / Unknown Venipuncture / Unknown 02/26/2025 8:26 AM EDT 02/26/2025 8:38 AM EDT us Ned Menendez MD LAB BLOOD ORDERABLES Final Res ult [facility] [address] [place] [address] * (ABNORMAL) POCT glucose meter (02/26/2025 8:18 AM EDT) POCT Glucose 143(H) 74 - 99 mg/dL 02/26/2025 8:21 AM EDT [facility] Comment:Accuracy of a glucos e result [...] Comment 02/26/2025 8:21 AM EDT [facility] Life Sciences Instructor ID Sherin Bynum 02/26/2025 8:21 AM EDT HEALTH[facility]ARE LAB Device ID [id number] 02/26/2025 8:21 AM EDT [facility]ALTH[facility]ARE LAB Specimen Type POC Capillary 02/26/2025 8:21 AM EDT [facility] Blood Capillary blood specimen / Unknown 02/26/2025 8:18 AM EDT 02/26/2025 8:21 AM EDT Ned Menendez MD LAB POINT OF CARE TE ST DOCKED DEVICE UNSOLICITED RESULTS Final Result [facility] [address] [place] [address] * CT Angio Neck (02/26/2025 8:10 AM [...] Total DLP (Dose-Length Product): 953.08 mGy.cm (accession [id number]), 953.08 mGy.cm (accession [id number]). Please note: The reported value represents the [...] no aneurysm of either internal carotid artery. [place] and Major Peripheral Branches: There [...] Total DLP (Dose-Length Product): 953.08 mGy.cm (accession [id number]),953.08 mGy.cm (accession [id number]). Please note: The reported valuerepresents the total [...] segment and mild stenoses in the left [id number]. There is no definite evidence of a [...] no aneurysm of either internal carotid artery. [place] and Major Peripheral Branches: There [...] systems. Redemonstration of moderate stenoses in right [id number]. Redemonstration of mild irregularity/undulating contour of the cervicalinternal carotid arteries which could be due to fibromuscular dysplasia,although component of atherosclerosis/tortuosity cannot be excluded. Head CTA: No definite significant intracranial arterial stenosis or aneurysm ispresent. CRITICAL RESULT: No. COMMUNICATION: Per this written report. Drafted by Jeremias Yanez MD on 02/26/2025 8:35 AM Final report signed by Jeremias Yanez MD on 02/26/2025 8:59 AM us Anaya Felton ANALYSIS ENGINEER IMG CT PROCEDURES Final Resu lt * CT Angio Head (02/26/2025 8:10 AM EDT) Anatomical Region Laterality Modality [place] Computed Tomogr aphy Impressions 02/26/2025 [...] Total DLP (Dose-Length Product): 953.08 mGy.cm (accession [id number]), 953.08 mGy.cm (accession [id number]). Please note: The reported value represents the [...] no aneurysm of either internal carotid artery. [place] and Major Peripheral Branches: There [...] Total DLP (Dose-Length Product): 953.08 mGy.cm (accession [id number]),953.08 mGy.cm (accession [id number]). Please note: The reported valuerepresents the total [...] segment and mild stenoses in the left [id number]. There is no definite evidence of a [...] no aneurysm of either internal carotid artery. [place] and Major Peripheral Branches: There [...] systems. Redemonstration of moderate stenoses in right [id number]. Redemonstration of mild irregularity/undulating contour of the [...] MD on 02/26/2025 8:59 AM Anaya Felton ANALYSIS ENGINEER IMG CT PROCEDURES Final Resu lt * [...] Jeremias Yanez MD on 02/26/2025 8:34 AM Ned Menendez MD IMG CT PROCEDURES Final Result * Phosphorus, Plasma (02/26/2025 4:23 AM EDT) Phosphorus, Plasma 3.5 2.5 - 4.5 mg/dL 02/26/2025 4:57 AM EDT [facility] Blood Venous blood specimen / Unknown Venipuncture / Unknown 02/26/2025 4:23 AM EDT 02/26/2025 4:29 AM EDT Anaya M Jose Francisco ANALYSIS ENGINEER LAB BLOOD ORDERABLES Final R esult Performing Organization Address City/[facility]/ZIP Co de Phone Number [facility] [address] [place] [address] * Magnesium, Plasma (02/26/2025 4:23 AM EDT) Pathologist [facility] Magnesium, Plasma 2.0 1.9 - 2.4 mg/dL 02/26/2025 4:57 AM EDT [facility] Blood Venous blood specimen / Unknown Venipuncture / Unknown 02/26/2025 4:23 AM EDT 02/26/2025 4:29 AM EDT Anaya M Jose Francisco [facility] BLOOD ORDERABLES Final R esult Performing Organization Address City/[facility]/ZIP Co de Phone Number [facility] [address] [place] [address] * (ABNORMAL) Basic Metabolic Panel, Plasma (02/26/2025 4:23 AM EDT) Glucose, Plasma 133(H) 74 - 99 mg/dL 02/26/2025 4:57 AM EDT [facility] BUN, Plasma 17 8 - 23 mg/dL 02/26/2025 4:57 AM EDT [facility] Creatinine, Plasma 0.64 0.60 - 1.10 mg/dL 02/26/2025 4:57 AM EDT [facility] BUN/Creatinine Ratio 27 02/26/2025 4:57 AM EDT [facility] Sodium, Plasma 129(L) 136 - 145 mmol/L 02/26/2025 4:57 AM EDT [facility] Potassium, Plasma 4.5 3.6 - 4.9 mmol/L 02/26/2025 4:57 AM EDT [facility] Chloride, Plasma 97 97 - 107 mmol/L 02/26/2025 4:57 AM EDT [facility] CO2, Plasma 24 22 - 29 mmol/L 02/26/2025 4:57 AM EDT [facility] Anion Gap 8 6 - 16 mmol/L 02/26/2025 4:57 AM EDT [facility] Total Calcium, Plasma 9.2 8.9 - 10.2 mg/dL 02/26/2025 4:57 AM EDT [facility] eGFRcr 97.6 mL/min/1.7 3m*2 02/26/2025 4:57 AM EDT [facility] Comment:Reported eGFRcr in m L/min/1.73m2 is based the CKD-EPI 2020 equation that does not use a race coefficient. Blood Venous blood specimen / Unknown Venipuncture / Unknown 02/26/2025 4:23 AM EDT 02/26/2025 4:29 AM EDT us Anaya Felton ANALYSIS ENGINEER LAB BLOOD ORDERABLES Final R esult [facility] [address] [place] [address] * (ABNORMAL) CBC W/O Differential (02/26/2025 4:23 AM EDT) WBC Count 15.84(H) 3.70 - 10.30 10*3/uL LAB HEMATOLOGY METHOD 02/26/2025 4:44 AM EDT [facility] RBC Count 4.27 3.90 - 5.20 10*6/uL LAB HEMATOLOGY METHOD 02/26/2025 4:44 AM EDT [facility] HGB 12.1 11.2 - 15.7 g/dL LAB HEMATOLOGY METHOD 02/26/2025 4:44 AM EDT [facility] HCT 35.8 34.0 - 45.0 % LAB HEMATOLOGY METHOD 02/26/2025 4:44 AM EDT [facility] Platelet Count 332 155 - 369 10*3/uL LAB HEMATOLOGY METHOD 02/26/2025 4:44 AM EDT [facility] MCV 84 79 - 98 fL LAB HEMATOLOGY METHOD 02/26/2025 4:44 AM EDT [facility] MCH 28.3 26.0 - 32.0 pg LAB HEMATOLOGY METHOD 02/26/2025 4:44 AM EDT [facility] MCHC 33.8 30.7 - 35.5 g/dL LAB HEMATOLOGY METHOD 02/26/2025 4:44 AM EDT [facility] RDW 13.2 11.5 - 14.5 % LAB HEMATOLOGY METHOD 02/26/2025 4:44 AM EDT [facility] MPV 9.1 8.8 - 12.5 fL LAB HEMATOLOGY METHOD 02/26/2025 4:44 AM EDT [facility] nRBC 0.0 <=0.0 per 100 WBCs LAB HEMATOLOGY METHOD 02/26/2025 4:44 AM EDT [facility] Blood Venous blood specimen / Unknown Venipuncture / Unknown 02/26/2025 4:23 AM EDT 02/26/2025 4:29 AM EDT us Anaya Felton ANALYSIS ENGINEER LAB BLOOD ORDERABLES Final R esult [facility] [address] [place] [address] * (ABNORMAL) Basic metabolic panel (02/25/2025 12:14 PM EDT) Glucose, Plasma 137(H) 74 - 99 mg/dL 02/25/2025 12:50 PM EDT [facility] BUN, Plasma 21 8 - 23 mg/dL 02/25/2025 12:50 PM EDT [facility] Creatinine, Plasma 0.62 0.60 - 1.10 mg/dL 02/25/2025 12:50 PM EDT [facility] BUN/Creatinine Ratio 34 02/25/2025 12:50 PM EDT [facility] Sodium, Plasma 129(L) 136 - 145 mmol/L 02/25/2025 12:50 PM EDT [facility] Potassium, Plasma 4.5 3.6 - 4.9 mmol/L 02/25/2025 12:50 PM EDT [facility] Chloride, Plasma 97 97 - 107 mmol/L 02/25/2025 12:50 PM EDT [facility] CO2, Plasma 22 22 - 29 mmol/L 02/25/2025 12:50 PM EDT [facility] Anion Gap 10 6 - 16 mmol/L 02/25/2025 12:50 PM EDT [facility] Total Calcium, Plasma 9.3 8.9 - 10.2 mg/dL 02/25/2025 12:50 PM EDT [facility] eGFRcr 98.4 mL/min/1.7 3m*2 02/25/2025 12:50 PM EDT [facility] Comment:Reported eGFRcr in m L/min/1.73m2 is based the CKD-EPI 2020 equation that does not use a race coefficient. 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 Postoperative fromcraniectomy for [...] for testing. Comment 02/25/2025 12:10 AM EDT [facility]ALTH[facility]ARE LAB Life Sciences Instructor ID Edwige Valdez 02/26/20 12:10 AM EDT [facility]ALTH[facility]ARE LAB Device ID [id number] 02/25/2025 12:10 AM EDT [facility]ALTH[facility]ARE LAB Specimen Type POC Capillary 02/25/2025 12:10 AM EDT [facility] Blood Capillary blood specimen / Unknown 02/25/2025 12:08 AM EDT 02/25/2025 12:10 AM EDT Ned Menendez MD LAB POINT OF CARE TE ST DOCKED DEVICE UNSOLICITED RESULTS Final Result [facility] [address] [place] [address] * FISH, Paraffin 1p/19Q (02/24/2025 9:04 PM EDT) Pathologist [facility] Specimen Adequacy Adequate 03/11/2025 1:32 PM EDT [facility] Clinical Indication 03/11/2025 1:32 PM EDT [facility] Comment: Pre-op diagnosis: Brain mass [G93.89] Interpretation Tissue type: Brain Pathology Case #: [id number] Block A3 FISH studies are NEGATIVE for [...] potential prognostic factors which confer unfavorable outcomes (Holt H et al. J Neuroncol 2014;120(1):131.). Polysomy exceeding 30% has been shown to correlate with reduced progression-free survival compared to co-deleted oligodendrogliomas without polysomy (Aleksandra CL Neurosurg Focus 2005;19(5):E2;Demetris villalta C et al. Brain Pathol 2008;18:360-9; Krishna CE et al. JNEN 2003;62(1):1118.). 03/11/2025 1:32 PM EDT [facility] ISCN nuc yesenia(MEGF6,TP73)x1~4, (ABL2,ANGPTL1)x1~4[6 0]/(MAN2B1,ZNF44)x1~ 5,(CRX,GLTSCR1)x1~5[ 60] Methodology: Fluorescence in situ hybridization (FISH) was performed on a paraffin-embedded 4~5 m cut unstained tissue slide using 4 Vysis/Ztoryot fluorescent labeled probes which hybridize to the [...] At least 60 cells were analyzed, and customer relations representative images were captured and stored using [employer] software ([employer] Cutoff ratios are <0.75 for both probe pairs, with relative deletion seen in at least 20% of tumor cells. Results are reported as the ratio of total 1p to 1q signals and 19q to 19p signals. A ratio between 0.75 and 1.2 is considered normal and <0.75 is considered deletion for 1p or 19q. 03/11/2025 1:32 PM EDT [facility] REFERENCES Adrienne JAMISON et al. Clin Oncol 2015;17(8):445. Van den Bent MJ et al., Neuro-Oncology 2017;19(5):614. 03/11/2025 1:32 PM EDT [facility] Disclaimer This test was developed and its performance characteristics determined by the [facility]. It has not been cleared [...] specimen and probe. 03/11/2025 1:32 PM EDT [facility] Pathologist Signature Reviewed by: Paulo Peraza 03/11/2025 1:32 PM EDT [facility] Tissue 02/24/2025 9:04 PM EDT 03/05/2025 10:58 AM EDT Sanchez Zaldivar MD LAB CYTOGENETICS ORDERABLES Fi nal Result [facility] [address] [place] [address] * Surgical Pathology Exam (02/24/2025 9:04 PM EDT) Case Report Surgical Pathology Case: [id number] Authorizing Provider: Sanchez Zaldivar MD Collected: 02/24/20252103 Ordering Location: [facility] A OPERATING ROOM Received: 02/25/2025 0824 Pathologist: Kayla Costello MD Specimens: A) - Brain, brain tumor sonopet contents B) - Other (specify site), tumor in saline 03/02/2025 3:45 PM EDT [facility] Final Diagnosis A; B Brain, Sonopet contents amd resection: - Oligodendroglioma NOS, 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 appearance is most consistent with primary brain neoplasm such as glioblastoma or other high-grade glioma. 03/02/2025 3:45 PM EDT [facility] Microscopic Description IHC: A2-2 IDH-1 negatve (wild type) A3-5 ATRX positive (wild type) All controls show appropriate reactivity. All immunohistochemistr y, in situ hybridization, and histochemical tests were developed by and are performed at the [facility], [address] [place] [address]. All tests reported here, except those addressing [...] likelihood of false negativity on decalcified specimens. 03/02/2025 3:45 PM EDT [facility] Gross Description A. BRAIN TUMOR SONOPET CONTENTS Received fresh and placed in formalin labeled brain tumor Sonopet contents are multiple pieces of pink-garcia soft tissue measuring 4.0 x 3.0 x 0.4 cm in aggregate. Entirely submitted in cassettes A1-A3. Cold Time: 11h 20m Rosibel Joya. TUMOR IN SALINE Received fresh and placed in formalin labeled tumor are multiple pieces of pink-garcia soft tissue measuring 2.4 x 2.2 x 0.4 cm in aggregate. Entirely submitted in cassette A1. Cold Time: 9h 02m Rosibel Stevens 03/02/2025 3:45 PM EDT [facility] Note: A resident was involved in the service. I attest I examined the relevant preparations for the specimens and confirmed the diagnosis or interpretation. 03/02/2025 3:45 PM EDT [facility] Tissue Brain structure / Unknown 02/24/2025 9:04 PM EDT 02/25/2025 8:24 AM EDT Comment:Pre-op diagnosis: Brain mass [G93.89] Tissue specimen (specimen) Topography unknown / Unknown 02/24/2025 11:22 PM EDT 02/25/2025 8:24 AM EDT Comment:Pre-op diagnosis: Brain mass [G93.89] us Sanchez Zaldivar MD LAB PATHOLOGY ORDERABLES Final Result [facility] [address] [place] [address] * (ABNORMAL) Blood gas, arterial (02/24/2025 7:23 PM EDT) pH, Arterial 7.39 7.31 - 7.42 LAB HEMATOLOGY METHOD 02/24/2025 7:34 PM EDT [facility] pCO2, Arterial 33(L) 35 - 48 mmHg LAB HEMATOLOGY METHOD 02/24/2025 7:34 PM EDT [facility] pO2, Arterial 119 >80 mmHg LAB HEMATOLOGY METHOD 02/24/2025 7:34 PM EDT [facility] SO2, Measured, Arterial 100(H) 94 - 98 % LAB HEMATOLOGY METHOD 02/24/2025 7:34 PM EDT [facility] Base Excess, Arterial -4.3(L) -2.0 - 3.0 mmol/L LAB HEMATOLOGY METHOD 02/24/2025 7:34 PM EDT [facility] Bicarbonate, Calculated, Arterial 20(L) 22 - 26 mmol/L LAB HEMATOLOGY METHOD 02/24/2025 7:34 PM EDT [facility] Hematocrit, Whole Blood 37.4 34.0 - 45.0 % LAB HEMATOLOGY METHOD 02/24/2025 7:34 PM EDT [facility] Sodium, Whole Blood 129(L) 136 - 145 mmol/L LAB HEMATOLOGY METHOD 02/24/2025 7:34 PM EDT [facility] Potassium, Whole Blood 3.6 3.6 - 4.9 mmol/L LAB HEMATOLOGY METHOD 02/24/2025 7:34 PM EDT [facility] Chloride, Whole Blood 99 97 - 107 mmol/L LAB HEMATOLOGY METHOD 02/24/2025 7:34 PM EDT [facility] Glucose, Whole Blood 126(H) 74 - 99 mg/dL LAB HEMATOLOGY METHOD 02/24/2025 7:34 PM EDT [facility] Ionized Calcium, Whole Blood 4.6 4.6 - 5.1 mg/dL LAB HEMATOLOGY METHOD 02/24/2025 7:34 PM EDT [facility] Lactate, Arterial, Whole Blood 1.4 0.5 - 1.6 mmol/L LAB HEMATOLOGY METHOD 02/24/2025 7:34 PM EDT [facility] Blood Arterial blood specimen / Unknown Arterial Line / Unknown 02/24/2025 7:23 PM EDT 02/24/2025 7:33 PM EDT Alessandro Medina DO LAB BLOOD ORDERABLES Final Res ult [facility] [address] [place] [address] * (ABNORMAL) Basic metabolic panel (02/24/2025 6:42 AM EDT) Glucose, Plasma 126(H) 74 - 99 mg/dL 02/24/2025 7:17 AM EDT [facility] BUN, Plasma 26(H) 8 - 23 mg/dL 02/24/2025 7:17 AM EDT [facility] Creatinine, Plasma 0.63 0.60 - 1.10 mg/dL 02/24/2025 7:17 AM EDT [facility] BUN/Creatinine Ratio 41 02/24/2025 7:17 AM EDT [facility] Sodium, Plasma 131(L) 136 - 145 mmol/L 02/24/2025 7:17 AM EDT [facility] Potassium, Plasma 4.7 3.6 - 4.9 mmol/L 02/24/2025 7:17 AM EDT [facility] Chloride, Plasma 98 97 - 107 mmol/L 02/24/2025 7:17 AM EDT [facility] CO2, Plasma 23 22 - 29 mmol/L 02/24/2025 7:17 AM EDT [facility] Anion Gap 10 6 - 16 mmol/L 02/24/2025 7:17 AM EDT [facility] Total Calcium, Plasma 9.4 8.9 - 10.2 mg/dL 02/24/2025 7:17 AM EDT [facility] eGFRcr 98.0 mL/min/1.7 3m*2 02/24/2025 7:17 AM EDT [facility] Comment:Reported eGFRcr in m L/min/1.73m2 is based the CKD-EPI 2020 equation that does not use a race coefficient. Blood Venous blood specimen / Unknown Venipuncture / Unknown 02/24/2025 6:42 AM EDT 02/24/2025 6:49 AM EDT us Anaya Felton ANALYSIS ENGINEER LAB BLOOD ORDERABLES Final R esult [facility] [address] [place] [address] * (ABNORMAL) Basic metabolic panel (02/24/2025 4:13 AM EDT) Glucose, Plasma 128(H) 74 - 99 mg/dL 02/24/2025 4:51 AM EDT [facility] BUN, Plasma 26(H) 8 - 23 mg/dL 02/24/2025 4:51 AM EDT [facility] Creatinine, Plasma 0.63 0.60 - 1.10 mg/dL 02/24/2025 4:51 AM EDT [facility] BUN/Creatinine Ratio 41 02/24/2025 4:51 AM EDT [facility] Sodium, Plasma 127(L) 136 - 145 mmol/L 02/24/2025 4:51 AM EDT [facility] Potassium, Plasma 4.7 3.6 - 4.9 mmol/L 02/24/2025 4:51 AM EDT [facility] Chloride, Plasma 97 97 - 107 mmol/L 02/24/2025 4:51 AM EDT [facility] CO2, Plasma 21(L) 22 - 29 mmol/L 02/24/2025 4:51 AM EDT [facility] Anion Gap 9 6 - 16 mmol/L 02/24/2025 4:51 AM EDT [facility] Total Calcium, Plasma 9.7 8.9 - 10.2 mg/dL 02/24/2025 4:51 AM EDT [facility] eGFRcr 98.0 mL/min/1.7 3m*2 02/24/2025 4:51 AM EDT [facility] Comment:Reported eGFRcr in m L/min/1.73m2 is based the CKD-EPI 2020 equation that does not use a race coefficient. Blood Venous blood specimen / Unknown Venipuncture / Unknown 02/24/2025 4:13 AM EDT 02/24/2025 4:20 AM EDT us Ned Menendez MD LAB BLOOD ORDERABLES Final Res ult [facility] [address] [place] [address] * (ABNORMAL) CBC and Differential (02/23/2025 5:11 PM EDT) WBC Count 11.24(H) 3.70 - 10.30 10*3/uL LAB HEMATOLOGY METHOD 02/23/2025 5:30 PM EDT [facility] RBC Count 4.59 3.90 - 5.20 10*6/uL LAB HEMATOLOGY METHOD 02/23/2025 5:30 PM EDT [facility] HGB 12.8 11.2 - 15.7 g/dL LAB HEMATOLOGY METHOD 02/23/2025 5:30 PM EDT [facility] HCT 38.5 34.0 - 45.0 % LAB HEMATOLOGY METHOD 02/23/2025 5:30 PM EDT [facility] Platelet Count 400(H) 155 - 369 10*3/uL LAB HEMATOLOGY METHOD 02/23/2025 5:30 PM EDT [facility] MCV 84 79 - 98 fL LAB HEMATOLOGY METHOD 02/23/2025 5:30 PM EDT [facility] MCH 27.9 26.0 - 32.0 pg LAB HEMATOLOGY METHOD 02/23/2025 5:30 PM EDT [facility] MCHC 33.2 30.7 - 35.5 g/dL LAB HEMATOLOGY METHOD 02/23/2025 5:30 PM EDT [facility] RDW 13.2 11.5 - 14.5 % LAB HEMATOLOGY METHOD 02/23/2025 5:30 PM EDT [facility] MPV 9.0 8.8 - 12.5 fL LAB HEMATOLOGY METHOD 02/23/2025 5:30 PM EDT [facility] nRBC 0.0 <=0.0 per 100 WBCs LAB HEMATOLOGY METHOD 02/23/2025 5:30 PM EDT [facility] Differential Type Automated LAB HEMATOLOGY METHOD 02/23/2025 5:30 PM EDT [facility] Neutrophils % 77 % LAB HEMATOLOGY METHOD 02/23/2025 5:30 PM EDT [facility] Lymphocytes % 15 % LAB HEMATOLOGY METHOD 02/23/2025 5:30 PM EDT [facility] Monocytes % 7 % LAB HEMATOLOGY METHOD 02/23/2025 5:30 PM EDT [facility] Eosinophils % 0 % LAB HEMATOLOGY METHOD 02/23/2025 5:30 PM EDT [facility] Basophils % 0 % LAB HEMATOLOGY METHOD 02/23/2025 5:30 PM EDT [facility] Immature Granulocytes % 1 % LAB HEMATOLOGY METHOD 02/23/2025 5:30 PM EDT [facility] Neutrophils Absolute 8.58(H) 1.60 - 6.10 10*3/uL LAB HEMATOLOGY METHOD 02/23/2025 5:30 PM EDT [facility] Lymphocytes Absolute 1.73 1.20 - 3.90 10*3/uL LAB HEMATOLOGY METHOD 02/23/2025 5:30 PM EDT [facility] Monocytes Absolute 0.74 0.30 - 0.90 10*3/uL LAB HEMATOLOGY METHOD 02/23/2025 5:30 PM EDT [facility] Eosinophils Absolute 0.04 0.00 - 0.50 10*3/uL LAB HEMATOLOGY METHOD 02/23/2025 5:30 PM EDT [facility] Basophils Absolute 0.02 0.00 - 0.10 10*3/uL LAB HEMATOLOGY METHOD 02/23/2025 5:30 PM EDT [facility] Immature Granulocytes Absolute 0.13(H) 0.00 - 0.06 10*3/uL LAB HEMATOLOGY METHOD 02/23/2025 5:30 PM EDT [facility] Blood Venous blood specimen / Unknown Venipuncture / Unknown 02/23/2025 5:11 PM EDT 02/23/2025 5:24 PM EDT Narrative [facility] - 02/23/2025 5:30 PM EDT Therapeutic decision making should be based on absolute values, rather than percentages. us Ned Menendez MD LAB BLOOD ORDERABLES Final Res ult [facility] [address] [place] [address] * (ABNORMAL) Comprehensive Metabolic Panel, Plasma (02/23/2025 5:11 PM EDT) Glucose, Plasma 119(H) 74 - 99 mg/dL 02/23/2025 5:54 PM EDT [facility] BUN, Plasma 20 8 - 23 mg/dL 02/23/2025 5:54 PM EDT [facility] Creatinine, Plasma 0.73 0.60 - 1.10 mg/dL 02/23/2025 5:54 PM EDT [facility] BUN/Creatinine Ratio 27 02/23/2025 5:54 PM EDT [facility] Sodium, Plasma 130(L) 136 - 145 mmol/L 02/23/2025 5:54 PM EDT [facility] Potassium, Plasma 4.4 3.6 - 4.9 mmol/L 02/23/2025 5:54 PM EDT [facility] Chloride, Plasma 96(L) 97 - 107 mmol/L 02/23/2025 5:54 PM EDT [facility] CO2, Plasma 22 22 - 29 mmol/L 02/23/2025 5:54 PM EDT [facility] Anion Gap 12 6 - 16 mmol/L 02/23/2025 5:54 PM EDT [facility] Total Calcium, Plasma 9.6 8.9 - 10.2 mg/dL 02/23/2025 5:54 PM EDT [facility] Total Protein 6.8 6.3 - 7.9 g/dL 02/23/2025 5:54 PM EDT [facility] Albumin, Plasma 4.1 3.5 - 5.2 g/dL 02/23/2025 5:54 PM EDT [facility] AST, Plasma 23 10 - 35 U/L 02/23/2025 5:54 PM EDT [facility] Comment:Hemolyzed, result ma y be falsely increased. ALT, Plasma 25 10 - 35 U/L 02/23/2025 5:54 PM EDT [facility] Alkaline Phosphatase, Plasma 52 46 - 142 U/L 02/23/2025 5:54 PM EDT [facility] Total Bilirubin, Plasma 0.3 0.2 - 1.1 mg/dL 02/23/2025 5:54 PM EDT [facility] eGFRcr 90.8 mL/min/1.7 3m*2 02/23/2025 5:54 PM EDT [facility] Comment:Reported eGFRcr in m L/min/1.73m2 is based the CKD-EPI 2020 equation that does not use a race coefficient. Blood Venous blood specimen / Unknown Venipuncture / Unknown 02/23/2025 5:11 PM EDT 02/23/2025 5:24 PM EDT us Ned Menendez MD LAB BLOOD ORDERABLES Final Res ult [facility] [address] [place] [address] * (ABNORMAL) APTT (02/23/2025 5:11 PM EDT) aPTT 24(L) 25 - 35 sec LAB COAGULATION METHOD 02/23/2025 5:42 PM EDT [facility] Blood Venous blood specimen / Unknown Venipuncture / Unknown 02/23/2025 5:11 PM EDT 02/23/2025 5:24 PM EDT us Ned Menendez MD LAB BLOOD ORDERABLES Final Res ult [facility] [address] [place] [address] * Prothrombin Time/INR (02/23/2025 5:11 PM EDT) Prothrombin Time 13.1 12.0 - 14.3 sec LAB COAGULATION METHOD 02/23/2025 5:42 PM EDT [facility] INR 1.0 0.9 - 1.1 LAB COAGULATION METHOD 02/23/2025 5:42 PM EDT [facility] Blood Venous blood specimen / Unknown Venipuncture / Unknown 02/23/2025 5:11 PM EDT 02/23/2025 5:24 PM EDT Narrative [facility] - 02/23/2025 5:42 PM EDT OPTIMAL INR RANGES FOR PATIENT ON ORAL ANTICOAGULANT THERAPY Prevention of venous thromboembolism INR 2.0 to 3.0 In patients with heart disease: Atrial fibrillation INR 2.0 to 3.0 Valvular heart disease INR 2.0 to 3.0 Tissue heart valves INR 2.0 to 3.0 Mechanical prosthetic valves INR 2.5 to 3.5 Prevention of recurrent NE INR 2.5 to 3.5 Result [facility] Ned Menendez MD LAB BLOOD ORDERABLES Final Res ult Performing Organization Address City/[facility] Co de Phone Number [facility] [address] [place] [address] * Type and Screen (02/23/2025 5:11 PM EDT) ABO/Rh A Positive 02/23/2025 4:20 PM EDT [facility] Antibody Screen Negative 02/23/2025 4:20 PM EDT [facility] Specimen Expiration 02/26/2025 23:59 02/23/2025 4:20 PM EDT BLOOD BANK Blood Venous blood specimen / Unknown Venipuncture / Unknown 02/23/2025 5:11 PM EDT 02/23/2025 5:24 PM EDT Ned Menendez MD LAB BLOOD BANK TEST ORDERABLES Final Result Performing Organization Address City/[facility] Co de Phone Number BLOOD BANK [address] [place] [address], * (ABNORMAL) POCT glucose meter (02/23/2025 12:01 PM EDT) [facility] POCT Glucose 115(H) 74 - 99 mg/dL [...] for testing. Comment 02/23/2025 12:09 PM EDT [facility] Life Sciences Instructor ID Mehreen Kumari 02/24/20 12:09 PM EDT HEALTHCARE LAB Device ID [id number] 02/23/2025 12:09 PM EDT HEALTH[facility]ARE LAB Specimen Type POC Capillary 02/23/2025 12:09 PM EDT [facility] Blood Capillary blood specimen / Unknown 02/23/2025 12:01 PM EDT 02/23/2025 12:09 PM EDT Ned Menendez MD LAB POINT OF CARE TE ST DOCKED DEVICE UNSOLICITED RESULTS Final Result Performing Organization Address [facility] de Phone Number [facility] [address] [place] [address] * (ABNORMAL) POCT glucose meter (02/23/2025 8:20 AM EDT) [facility] POCT Glucose 142(H) 74 - 99 mg/dL 02/23/2025 11:54 AM EDT [facility] Comment:Accuracy of [...] for testing. Comment 02/23/2025 11:54 AM EDT [facility] Life Sciences Instructor ID Mehreen Kumari 02/24/20 11:54 AM EDT HEALTHCARE LAB Device ID [id number] 02/23/2025 11:54 AM EDT [facility] Specimen Type POC Capillary 02/23/2025 11:54 AM EDT [facility] Blood Capillary blood specimen / Unknown 02/23/2025 8:20 AM EDT 02/23/2025 11:54 AM EDT Ned Menendez MD LAB POINT OF CARE TE ST DOCKED DEVICE UNSOLICITED RESULTS Final Result Performing Organization Address City/[facility]/ZIP Co de Phone Number [facility] [address] [place] [address] * (ABNORMAL) Sodium (02/23/2025 12:40 AM EDT) [facility] Sodium, Plasma 134(L) 136 - 145 mmol/L 02/23/2025 1:32 AM EDT [facility] Blood Venous blood specimen / Unknown Venipuncture / Unknown 02/23/2025 12:40 AM EDT 02/23/2025 1:10 AM EDT Anaya Felton APRN LAB BLOOD ORDERABLES Final R esult Performing Organization Address City/[facility]/ZIP Co de Phone Number [facility] [address] [place] [address] * (ABNORMAL) POCT glucose meter (02/22/2025 7:51 PM EDT) [facility] POCT Glucose 118(H) 74 - 99 mg/dL [...] for testing. Comment 02/22/2025 8:17 PM EDT [facility] Life Sciences Instructor ID Matt Calle 02/22/2025 8:17 PM EDT HEALTHCARE LAB Device ID [id number] 02/22/2025 8:17 PM EDT [facility] Specimen Type POC Capillary 02/22/2025 8:17 PM EDT [facility] Blood Capillary blood specimen / Unknown 02/22/2025 7:51 PM EDT 02/22/2025 8:17 PM EDT Ned Menendez MD LAB POINT OF CARE TE ST DOCKED DEVICE UNSOLICITED RESULTS Final Result Performing Organization Address City/[facility] Co de Phone Number [facility] [address] [place] [address] * (ABNORMAL) POCT Glucose - Before Meals and Bedtime (02/22/2025 7:45 PM EDT) POCT Glucose 128(A) 74 - 99 mg/dL [facility] Blood Venous blood specimen / Unknown 02/22/2025 7:45 PM EDT Anaya Curtis Jose Francisco GOODWINN POINT OF CARE TEST ENTER/FABIO T ORDERABLES Final Result Performing Organization Address City/[facility] de Phone Number HEALTHCARE LAB [address] [place] [address] * MR Head w IV Contrast (02/22/2025 [...] Tanmay Alex MD on 02/23/2025 12:08 AM Ned Menendez MD IM MRI PROCEDURES Final Resul t * (ABNORMAL) POCT glucose meter (02/22/2025 3:40 PM EDT) POCT Glucose 129(H) 74 - 99 mg/dL 02/22/2025 3:44 PM EDT [facility] Comment:Accuracy of a glucos e result [...] for testing. Comment 02/22/2025 3:44 PM EDT [facility] Life Sciences Instructor ID Edmar Елена 3:44 PM EDT [facility] Device ID [id number] 02/22/2025 3:44 PM EDT [facility] Specimen Type POC Capillary 02/22/2025 3:44 PM EDT [facility] Blood Capillary blood specimen / Unknown 02/22/2025 3:40 PM EDT 02/22/2025 3:44 PM EDT Ned Menendez MD LAB POINT OF CARE TE ST DOCKED DEVICE UNSOLICITED RESULTS Final Result [facility] [address] [place] [address] * (ABNORMAL) CBC W/O Differential (02/22/2025 12:45 PM EDT) WBC Count 12.31(H) 3.70 - 10.30 10*3/uL LAB HEMATOLOGY METHOD 02/22/2025 1:04 PM EDT [facility] RBC Count 4.86 3.90 - 5.20 10*6/uL LAB HEMATOLOGY METHOD 02/22/2025 1:04 PM EDT [facility] HGB 13.5 11.2 - 15.7 g/dL LAB HEMATOLOGY METHOD 02/22/2025 1:04 PM EDT [facility] HCT 40.9 34.0 - 45.0 % LAB HEMATOLOGY METHOD 02/22/2025 1:04 PM EDT [facility] Platelet Count 429(H) 155 - 369 10*3/uL LAB HEMATOLOGY METHOD 02/22/2025 1:04 PM EDT [facility] MCV 84 79 - 98 fL LAB HEMATOLOGY METHOD 02/22/2025 1:04 PM EDT [facility] MCH 27.8 26.0 - 32.0 pg LAB HEMATOLOGY METHOD 02/22/2025 1:04 PM EDT [facility] MCHC 33.0 30.7 - 35.5 g/dL LAB HEMATOLOGY METHOD 02/22/2025 1:04 PM EDT [facility] RDW 12.9 11.5 - 14.5 % LAB HEMATOLOGY METHOD 02/22/2025 1:04 PM EDT [facility] MPV 9.1 8.8 - 12.5 fL LAB HEMATOLOGY METHOD 02/22/2025 1:04 PM EDT [facility] nRBC 0.0 <=0.0 per 100 WBCs LAB HEMATOLOGY METHOD 02/22/2025 1:04 PM EDT [facility] Blood Venous blood specimen / Unknown Venipuncture / Unknown 02/22/2025 12:45 PM EDT 02/22/2025 12:56 PM EDT us Ned Menendez MD LAB BLOOD ORDERABLES Final Res ult [facility] [address] [place] [address] * (ABNORMAL) Basic Metabolic Panel, Plasma (02/22/2025 12:45 PM EDT) Glucose, Plasma 133(H) 74 - 99 mg/dL 02/22/2025 1:26 PM EDT [facility] BUN, Plasma 22 8 - 23 mg/dL 02/22/2025 1:26 PM EDT [facility] Creatinine, Plasma 0.67 0.60 - 1.10 mg/dL 02/22/2025 1:26 PM EDT [facility] BUN/Creatinine Ratio 33 02/22/2025 1:26 PM EDT [facility] Sodium, Plasma 130(L) 136 - 145 mmol/L 02/22/2025 1:26 PM EDT [facility] Potassium, Plasma 4.5 3.6 - 4.9 mmol/L 02/22/2025 1:26 PM EDT [facility] Chloride, Plasma 97 97 - 107 mmol/L 02/22/2025 1:26 PM EDT [facility] CO2, Plasma 21(L) 22 - 29 mmol/L 02/22/2025 1:26 PM EDT [facility] Anion Gap 12 6 - 16 mmol/L 02/22/2025 1:26 PM EDT [facility] Total Calcium, Plasma 9.7 8.9 - 10.2 mg/dL 02/22/2025 1:26 PM EDT [facility] eGFRcr 96.5 mL/min/1.7 3m*2 02/22/2025 1:26 PM EDT [facility] Comment:Reported eGFRcr in m L/min/1.73m2 is based the CKD-EPI 2020 equation that does not use a race coefficient. Blood Venous blood specimen / Unknown Venipuncture / Unknown 02/22/2025 12:45 PM EDT 02/22/2025 12:56 PM EDT us Ned Menendez MD LAB BLOOD ORDERABLES Final Res ult Performing Organization Address [facility] Co de Phone Number [facility] [address] [place] [address] * Magnesium, Plasma (02/22/2025 12:45 PM EDT) Magnesium, Plasma 2.0 1.9 - 2.4 mg/dL 02/22/2025 1:26 PM EDT [facility] Blood Venous blood specimen / Unknown Venipuncture / Unknown 02/22/2025 12:45 PM EDT 02/22/2025 12:56 PM EDT us Ned Menendez MD LAB BLOOD ORDERABLES Final Res ult Performing Organization Address [facility] [place] [address] * Phosphorus, Plasma (02/22/2025 12:45 PM EDT) Phosphorus, Plasma 3.5 2.5 - 4.5 mg/dL 02/22/2025 1:26 PM EDT [facility] Blood Venous blood specimen / Unknown Venipuncture / Unknown 02/22/2025 12:45 PM EDT 02/22/2025 12:56 PM EDT us Ned Menendez MD LAB BLOOD ORDERABLES Final Res ult Performing Organization Address City/[facility] Co de Phone Number [facility] [address] [place] [address] * Prothrombin Time/INR (02/22/2025 12:45 PM EDT) Prothrombin Time 12.9 12.0 - 14.3 sec LAB COAGULATION METHOD 02/22/2025 1:21 PM EDT [facility] INR 1.0 0.9 - 1.1 LAB COAGULATION METHOD 02/22/2025 1:21 PM EDT [facility] Blood Venous blood specimen / Unknown Venipuncture / Unknown 02/22/2025 12:45 PM EDT 02/22/2025 12:56 PM EDT Narrative [facility] - 02/22/2025 1:21 PM EDT OPTIMAL INR RANGES FOR PATIENT ON ORAL ANTICOAGULANT THERAPY Prevention of venous thromboembolism INR 2.0 to 3.0 In patients with heart disease: Atrial fibrillation INR 2.0 to 3.0 Valvular heart disease INR 2.0 to 3.0 Tissue heart valves INR 2.0 to 3.0 Mechanical prosthetic valves INR 2.5 to 3.5 Prevention of recurrent NE INR 2.5 to 3.5 us Ned Menendez MD LAB BLOOD ORDERABLES Final Res ult Performing Organization Address [facility]/ZIP Co de Phone Number [facility] [address] [place] [address] * APTT (02/22/2025 12:45 PM EDT) aPTT 29 25 - 35 sec LAB COAGULATION METHOD 02/22/2025 1:21 PM EDT [facility] Blood Venous blood specimen / Unknown Venipuncture / Unknown 02/22/2025 12:45 PM EDT 02/22/2025 12:56 PM EDT us Ned Menendez MD LAB BLOOD ORDERABLES Final Res ult [facility] [address] [place] [address] * (ABNORMAL) Sodium (02/22/2025 12:45 PM EDT) Sodium, Plasma 130(L) 136 - 145 mmol/L 02/22/2025 1:26 PM EDT [facility] Blood Venous blood specimen / Unknown Venipuncture / Unknown 02/22/2025 12:45 PM EDT 02/22/2025 12:56 PM EDT us Anaya Curtis Jose Francisco ANALYSIS ENGINEER LAB BLOOD ORDERABLES Final R esult Performing Organization Address City/[facility]/ZIP Co de Phone Number [facility] [address] [place] [address] * (ABNORMAL) POCT glucose meter (02/22/2025 11:57 AM EDT) POCT Glucose 114(H) 74 - 99 mg/dL [...] for testing. Comment 02/22/2025 12:02 PM EDT [facility] [employer] Instructor ID Елена Hyatt 12:02 PM EDT [facility] Device ID [id number] 02/22/2025 12:02 PM EDT [facility] Specimen Type POC Capillary 02/22/2025 12:02 PM EDT [facility] Blood Capillary blood specimen / Unknown 02/22/2025 11:57 AM EDT 02/22/2025 12:02 PM EDT Ned Menendez MD LAB POINT OF CARE TE ST DOCKED DEVICE UNSOLICITED RESULTS Final Result Performing Organization Address City/[facility] Co de Phone Number [facility] [address] [place], [place] [id number] * (ABNORMAL) POCT glucose meter (02/22/2025 8:07 AM EDT) POCT Glucose 139(H) 74 - 99 mg/dL 02/22/2025 11:57 AM EDT [facility] Comment:Accuracy of [...] for testing. Comment 02/22/2025 11:57 AM EDT [facility] Life Sciences Instructor ID Елена Hyatt 11:57 AM EDT [facility] Device ID [id number] 02/22/2025 11:57 AM EDT [facility] Specimen Type POC Capillary 02/22/2025 11:57 AM EDT [facility] Blood Capillary blood specimen / Unknown 02/22/2025 8:07 AM EDT 02/22/2025 11:57 AM EDT Ned Menendez MD LAB POINT OF CARE TE ST DOCKED DEVICE UNSOLICITED RESULTS Final Result Performing Organization Address City/[facility]/ZIP Co de Phone Number [facility] [address] [place] [address] * (ABNORMAL) Sodium (02/22/2025 3:57 AM EDT) Sodium, Plasma 132(L) 136 - 145 mmol/L 02/22/2025 5:45 AM EDT [facility] Blood Venous blood specimen / Unknown Venipuncture / Unknown 02/22/2025 3:57 AM EDT 02/22/2025 4:28 AM EDT Anaya Felton APRN LAB BLOOD ORDERABLES Final R esult Performing Organization Address City/[facility]/ZIP Co de Phone Number [facility] [address] [place] [address] * (ABNORMAL) POCT glucose meter (02/21/2025 7:32 PM EDT) POCT Glucose 155(H) 74 - 99 mg/dL 02/21/2025 7:35 PM EDT [facility] Comment:Accuracy of a [...] Comment 02/21/2025 7:35 PM EDT [facility] Life Sciences Instructor ID Jorje Rivas 7:35 PM EDT [facility] Device ID [id number] 02/21/2025 7:35 PM EDT [facility] Specimen Type POC Capillary 02/21/2025 7:35 PM EDT [facility] Blood Capillary blood specimen / Unknown 02/21/2025 7:32 PM EDT 02/21/2025 7:35 PM EDT Ned Menendez MD LAB POINT OF CARE TE ST DOCKED DEVICE UNSOLICITED RESULTS Final Result Performing Organization Address City/[facility]/ZIP Co de Phone Number [facility] [address] [place] [address] * (ABNORMAL) POCT glucose meter (02/21/2025 4:01 PM EDT) [facility] POCT Glucose 131(H) 74 - 99 mg/dL [...] Comment 02/21/2025 5:25 PM EDT [facility] Life Sciences Instructor ID Елена Hyatt 5:25 PM EDT [facility] Device ID [id number] 02/21/2025 5:25 PM EDT [facility] Specimen Type POC Capillary 02/21/2025 5:25 PM EDT [facility] Blood Capillary blood specimen / Unknown 02/21/2025 4:01 PM EDT 02/21/2025 5:25 PM EDT Ned Menendez MD LAB POINT OF CARE TE ST DOCKED DEVICE UNSOLICITED RESULTS Final Result Performing Organization Address City/[facility]/ZIP Co de Phone Number [facility] [address] [place] [address] * (ABNORMAL) Sodium (02/21/2025 4:01 PM EDT) [facility] Sodium, Plasma 131(L) 136 - 145 mmol/L 02/21/2025 4:31 PM EDT [facility] Blood Venous blood specimen / Unknown Venipuncture / Unknown 02/21/2025 4:01 PM EDT 02/21/2025 4:09 PM EDT Anaya Curtis Jose Francisco GOODWINN LAB BLOOD ORDERABLES Final R esult [facility] [address] [place] [address] * (ABNORMAL) POCT glucose meter (02/21/2025 12:08 PM EDT) [facility] POCT Glucose 152(H) 74 - 99 mg/dL 02/21/2025 12:43 PM EDT [facility] Comment:Accuracy of a [...] Comment 02/21/2025 12:43 PM EDT [facility] Life Sciences Instructor ID Елена Hyatt 12:43 PM EDT [facility] Device ID [id number] 02/21/2025 12:43 PM EDT [facility] Specimen Type POC Capillary 02/21/2025 12:43 PM EDT [facility] Blood Capillary blood specimen / Unknown 02/21/2025 12:08 PM EDT 02/21/2025 12:43 PM EDT Ned Menendez MD LAB POINT OF CARE TE ST DOCKED DEVICE UNSOLICITED RESULTS Final Result Performing Organization Address City/[facility]/ZIP Co de Phone Number [facility] [address] [place] [address] * (ABNORMAL) POCT glucose meter (02/21/2025 8:29 AM EDT) [facility] POCT Glucose 129(H) 74 - 99 mg/dL [...] Comment 02/21/2025 8:43 AM EDT [facility] Life Sciences Instructor ID Елена Hyatt 8:43 AM EDT [facility] Device ID [id number] 02/21/2025 8:43 AM EDT [facility] Specimen Type POC Capillary 02/21/2025 8:43 AM EDT [facility] Blood Capillary blood specimen / Unknown 02/21/2025 8:29 AM EDT 02/21/2025 8:43 AM EDT Ned Menendez MD LAB POINT OF CARE TE ST DOCKED DEVICE UNSOLICITED RESULTS Final Result Performing Organization Address City/[facility]/ZIP Co de Phone Number [facility] [address] [place] [address] * (ABNORMAL) Sodium (02/21/2025 4:31 AM EDT) [facility] Sodium, Plasma 132(L) 136 - 145 mmol/L 02/21/2025 6:28 AM EDT [facility] Blood Venous blood specimen / Unknown Venipuncture / Unknown 02/21/2025 4:31 AM EDT 02/21/2025 6:04 AM EDT us Anaya Felton APRN LAB BLOOD ORDERABLES Final R esult [facility] [address] [place] [address] * (ABNORMAL) POCT glucose meter (02/20/2025 7:45 PM EDT) [facility] POCT Glucose 128(H) 74 - 99 mg/dL 02/20/2025 7:46 PM EDT [facility] Comment:Accuracy of a glucos e [...] Comment 02/20/2025 7:46 PM EDT [facility] Life Sciences Instructor ID Jorje Rivas 7:46 PM EDT [facility] Device ID [id number] 02/20/2025 7:46 PM EDT [facility] Specimen Type POC Capillary 02/20/2025 7:46 PM EDT [facility] Blood Capillary blood specimen / Unknown 02/20/2025 7:45 PM EDT 02/20/2025 7:46 PM EDT us Ned Menendez MD LAB POINT OF CARE TE ST DOCKED DEVICE UNSOLICITED RESULTS Final Result Performing Organization Address City/State[facility] Co de Phone Number [facility] [address] [place] [address] * (ABNORMAL) POCT glucose meter (02/20/2025 3:36 PM EDT) POCT Glucose 132(H) 74 - 99 mg/dL 02/20/2025 3:37 PM EDT [facility] Comment:Accuracy of a [...] Comment 02/20/2025 3:37 PM EDT [facility] Life Sciences Instructor ID Edwige Vasquez 025 3:37 PM EDT [facility] Device ID [id number] 02/20/2025 3:37 PM EDT [facility] Specimen Type POC Capillary 02/20/2025 3:37 PM EDT [facility] Blood Capillary blood specimen / Unknown 02/20/2025 3:36 PM EDT 02/20/2025 3:37 PM EDT us Ned Menendez MD LAB POINT OF CARE TE ST DOCKED DEVICE UNSOLICITED RESULTS Final Result Performing Organization Address City/[facility]/ZIP Co de Phone Number [facility] [address] [place] [address] * (ABNORMAL) Sodium (02/20/2025 3:09 PM EDT) [facility] Sodium, Plasma 132(L) 136 - 145 mmol/L 02/20/2025 3:44 PM EDT [facility] Blood Venous blood specimen / Unknown Venipuncture / Unknown 02/20/2025 3:09 PM EDT 02/20/2025 3:21 PM EDT Anaya Felton APRN LAB BLOOD ORDERABLES Final R esult Performing Organization Address [facility] Co de Phone Number [facility] [address] [place] [address] * (ABNORMAL) POCT glucose meter (02/20/2025 11:45 AM EDT) [facility] POCT Glucose 152(H) 74 - 99 mg/dL 02/20/2025 11:46 AM EDT [facility] Comment:Accuracy of a glucos e [...] Comment 02/20/2025 11:46 AM EDT [facility]ALTH[facility] Life Sciences Instructor ID Edwige Vasquez 025 11:46 AM EDT [facility] Device ID [id number] 02/20/2025 11:46 AM EDT [facility] Specimen Type POC Capillary 02/20/2025 11:46 AM EDT [facility] Blood Capillary blood specimen / Unknown 02/20/2025 11:45 AM EDT 02/20/2025 11:46 AM EDT Ned Menendez MD LAB POINT OF CARE TE ST DOCKED DEVICE UNSOLICITED RESULTS Final Result Performing Organization Address City/[facility]/ZIP Co de Phone Number [facility] [address] [place] [address] * (ABNORMAL) POCT glucose meter (02/20/2025 7:45 AM EDT) [facility] POCT Glucose 140(H) 74 - 99 mg/dL 02/20/2025 7:48 AM EDT [facility] Comment:Accuracy of a glucos e [...] Comment 02/20/2025 7:48 AM EDT [facility] Life Sciences Instructor ID Edwige Vasquez 025 7:48 AM EDT [facility]ALTH[facility] LAB Device ID [id number] 02/20/2025 7:48 AM EDT [facility] Specimen Type POC Capillary 02/20/2025 7:48 AM EDT [facility] Blood Capillary blood specimen / Unknown 02/20/2025 7:45 AM EDT 02/20/2025 7:48 AM EDT us Ned Menendez MD LAB POINT OF CARE TE ST DOCKED DEVICE UNSOLICITED RESULTS Final Result Performing Organization Address [facility] Co de Phone Number [facility] [address] [place] [address] * Lavender Top (02/20/2025 4:27 AM EDT) [facility] Extra Hold for add-ons 02/20/2025 8:02 AM EDT [facility] Comment:Auto resulted. Blood Venous blood specimen / Unknown 02/20/2025 4:27 AM EDT 02/20/2025 5:06 AM EDT us Ned Menendez MD LAB BLOOD ORDERABLES Final Res ult Performing Organization Address [facility]/ZIP Co de Phone Number [facility] [address] [place] [address] * (ABNORMAL) Sodium (02/20/2025 4:27 AM EDT) [facility] Sodium, Plasma 132(L) 136 - 145 mmol/L 02/20/2025 5:24 AM EDT [facility] Blood Venous blood specimen / Unknown Venipuncture / Unknown 02/20/2025 4:27 AM EDT 02/20/2025 5:03 AM EDT Anaya Curtis Jose Francisco GOODWINN LAB BLOOD ORDERABLES Final R esult [facility] [address] [place] [address] * (ABNORMAL) POCT glucose meter (02/19/2025 7:59 PM EDT) [facility] POCT Glucose 132(H) 74 - 99 mg/dL 02/19/2025 8:02 PM EDT [facility]ALTH[facility] Comment:Accuracy of a [...] Comment 02/19/2025 8:02 PM EDT [facility] Life Sciences Instructor ID Dm Reaves 8:02 PM EDT [facility] Device ID [id number] 02/19/2025 8:02 PM EDT [facility] Specimen Type POC Capillary 02/19/2025 8:02 PM EDT [facility] Blood Capillary blood specimen / Unknown 02/19/2025 7:59 PM EDT 02/19/2025 8:02 PM EDT Ned Menendez MD LAB POINT OF CARE TE ST DOCKED DEVICE UNSOLICITED RESULTS Final Result [facility] [address] [place] [address] * (ABNORMAL) Hemoglobin A1c (02/19/2025 4:17 PM EDT) [facility] Hemoglobin A1c 5.7(H) <5.7 % 02/19/2025 5:20 PM EDT [facility] Blood Venous blood specimen / Unknown Venipuncture / Unknown 02/19/2025 4:17 PM EDT 02/19/2025 4:49 PM EDT Narrative [facility] - 02/19/2025 5:20 PM EDT HA1C Interpretive Data: Diagnosis of Diabetes: Diabetic > or = 6.5% Pre-diabetic 5.7 to 6.4% Non-diabetic < or = 5.6% Glycemic Targets for Type I and Type II Diabetics: Non- Adults <7.0% Adults <6.0% Children and Adolescents <7.5% Source: [place] [employer]. Standards of medical care in diabetes,2017. Diabetes Care.2017:40 (suppl 1):S1-S135. Anaya Felton ANALYSIS ENGINEER LAB BLOOD ORDERABLES Final R esult Performing Organization Address City/[facility]/ZIP Co de Phone Number [facility] [address] [place] [address] * (ABNORMAL) Sodium (02/19/2025 4:17 PM EDT) Sodium, Plasma 129(L) 136 - 145 mmol/L 02/19/2025 5:06 PM EDT [facility] Blood Venous blood specimen / Unknown Venipuncture / Unknown 02/19/2025 4:17 PM EDT 02/19/2025 4:44 PM EDT Anaya M Jose Francisco ANALYSIS ENGINEER LAB BLOOD ORDERABLES Final R esult [facility] [address] [place] [address] * (ABNORMAL) POCT glucose meter (02/19/2025 3:42 PM EDT) POCT Glucose 143(H) 74 - 99 mg/dL 02/19/2025 3:45 PM EDT [facility] Comment:Accuracy of a glucos e [...] Comment 02/19/2025 3:45 PM EDT [facility] Life Sciences Instructor ID Елена Hyatt 3:45 PM EDT [facility] Device ID [id number] 02/19/2025 3:45 PM EDT [facility] Specimen Type POC Capillary 02/19/2025 3:45 PM EDT [facility] Blood Capillary blood specimen / Unknown 02/19/2025 3:42 PM EDT 02/19/2025 3:45 PM EDT us Ned Menendez MD LAB POINT OF CARE TE ST DOCKED DEVICE UNSOLICITED RESULTS Final Result Performing Organization Address City/[facility]/ZIP Co de Phone Number [facility] [address] [place] [address] * (ABNORMAL) POCT glucose meter (02/19/2025 12:00 PM EDT) POCT Glucose 147(H) 74 - 99 mg/dL [...] Comment 02/19/2025 12:10 PM EDT [facility] Life Sciences Instructor ID Елена Hyatt 12:10 PM EDT [facility] Device ID [id number] 02/19/2025 12:10 PM EDT [facility] Specimen Type POC Capillary 02/19/2025 12:10 PM EDT [facility] Blood Capillary blood specimen / Unknown 02/19/2025 12:00 PM EDT 02/19/2025 12:10 PM EDT us Ned Menendez MD LAB POINT OF CARE TE ST DOCKED DEVICE UNSOLICITED RESULTS Final Result [facility] [address] [place] [address] * Creatinine, urine, random (02/19/2025 11:50 AM EDT) Creatinine, Urine 77 mg/dL 02/19/2025 12:53 PM EDT [facility] Urine Urine specimen obtained by clean catch procedure / Unknown Non-blood Collection / Unknown 02/19/2025 11:50 AM EDT 02/19/2025 12:09 PM EDT us Anaya Hdez MD LAB URINE ORDERABLES Final Resul t Performing Organization Address [facility] de Phone Number [facility] [address] [place] [address] * Osmolality, urine (02/19/2025 11:50 AM EDT) Osmolality, Urine 441 50 - 1,200 mOsm/kg 02/19/2025 12:55 PM EDT [facility] Urine Urine specimen obtained by clean catch procedure / Unknown Non-blood Collection / Unknown 02/19/2025 11:50 AM EDT 02/19/2025 12:09 PM EDT us Anaya Hdez MD LAB URINE ORDERABLES Final Resul t Performing Organization Address [facility] de Phone Number [facility] [address] [place] [address] * Sodium, urine, random (02/19/2025 11:50 AM EDT) Sodium, Urine 57 mmol/L 02/19/2025 12:53 PM EDT [facility] Urine Urine specimen obtained by clean catch procedure / Unknown Non-blood Collection / Unknown 02/19/2025 11:50 AM EDT 02/19/2025 12:09 PM EDT us Anaya Hdez MD LAB URINE ORDERABLES Final Resul t Performing Organization Address [facility] de Phone Number [facility] [address] [place] [address] * ECG Adult (02/19/2025 11:42 AM EDT) EKG DIAGNOSIS CLASS Borderline Normal MUSE ECG Ventricular Rate 66 BPM MUSE ECG Atrial Rate 66 BPM MUSE ECG UT Interval 194 ms MUSE ECG QRSD Interval 88 ms MUSE ECG QT Interval 404 ms MUSE ECG QTC Interval 423 ms MUSE ECG P [place] 51 degrees MUSE ECG R [place] 23 degrees MUSE ECG T Wave [place] 26 degrees MUSE ECG Diagnosis Sinus rhythm with occasional premature ventricular complexes MUSE ECG Diagnosis MUSE ECG Diagnosis MUSE ECG Diagnosis Confirmed by Tasneem Ludwig ([id number]) on 02/20/2025 11:51:00 AM MUSE ECG 02/19/2025 11:4 2 AM EDT 02/20/2025 11:51 AM EDT Anaya Hdez MD ECG ORDERABLES Final Result Performing Organization Address City/[facility]/ZIP Co de Phone Number MUSE ECG * (ABNORMAL) Osmolality (02/19/2025 4:03 AM EDT) Osmolality, Serum 275(L) 280 - 301 mOsm/Kg 02/19/2025 11:41 AM EDT [facility] Blood Venous blood specimen / Unknown Venipuncture / Unknown 02/19/2025 4:03 AM EDT 02/19/2025 4:23 AM EDT Anaya Hdez MD LAB BLOOD ORDERABLES Final Resul t [facility] [address] [place] [address] * (ABNORMAL) Sodium (02/19/2025 4:03 AM EDT) Sodium, Plasma 129(L) 136 - 145 mmol/L 02/19/2025 4:51 AM EDT [facility] Blood Venous blood specimen / Unknown Venipuncture / Unknown 02/19/2025 4:03 AM EDT 02/19/2025 4:23 AM EDT Anaya Felton ANALYSIS ENGINEER LAB BLOOD ORDERABLES Final R esult [facility] [address] [place] [address] * Phosphorus, Plasma (02/19/2025 4:03 AM EDT) Phosphorus, Plasma 3.2 2.5 - 4.5 mg/dL 02/19/2025 4:51 AM EDT [facility] Blood Venous blood specimen / Unknown Venipuncture / Unknown 02/19/2025 4:03 AM EDT 02/19/2025 4:23 AM EDT Anaya Felton ANALYSIS ENGINEER LAB BLOOD ORDERABLES Final R esult [facility] [address] [place] [address] * Magnesium, Plasma (02/19/2025 4:03 AM EDT) Magnesium, Plasma 2.0 1.9 - 2.4 mg/dL 02/19/2025 4:51 AM EDT [facility] Blood Venous blood specimen / Unknown Venipuncture / Unknown 02/19/2025 4:03 AM EDT 02/19/2025 4:23 AM EDT Anaya Felton ANALYSIS ENGINEER LAB BLOOD ORDERABLES Final R [facility] [address] [place] [address] * (ABNORMAL) Basic Metabolic Panel, Plasma (02/19/2025 4:03 AM EDT) Glucose, Plasma 153(H) 74 - 99 mg/dL 02/19/2025 4:51 AM EDT [facility] BUN, Plasma 14 8 - 23 mg/dL 02/19/2025 4:51 AM EDT [facility] Creatinine, Plasma 0.56(L) 0.60 - 1.10 mg/dL 02/19/2025 4:51 AM EDT [facility] BUN/Creatinine Ratio 25 02/19/2025 4:51 AM EDT [facility] Sodium, Plasma 129(L) 136 - 145 mmol/L 02/19/2025 4:51 AM EDT [facility] Potassium, Plasma 4.1 3.6 - 4.9 mmol/L 02/19/2025 4:51 AM EDT [facility] Chloride, Plasma 96(L) 97 - 107 mmol/L 02/19/2025 4:51 AM EDT [facility] CO2, Plasma 22 22 - 29 mmol/L 02/19/2025 4:51 AM EDT [facility] Anion Gap 11 6 - 16 mmol/L 02/19/2025 4:51 AM EDT [facility] Total Calcium, Plasma 9.6 8.9 - 10.2 mg/dL 02/19/2025 4:51 AM EDT [facility] eGFRcr 100.8 mL/min/1.7 3m*2 02/19/2025 4:51 AM EDT [facility] Comment:Reported eGFRcr in m L/min/1.73m2 is based the CKD-EPI 2020 equation that does not use a race coefficient. Blood Venous blood specimen / Unknown Venipuncture / Unknown 02/19/2025 4:03 AM EDT 02/19/2025 4:23 AM EDT Anaya Felton ANALYSIS ENGINEER LAB BLOOD ORDERABLES Final R esult [facility] [address] [place] [address] * (ABNORMAL) Sodium (02/18/2025 3:27 PM EDT) Sodium, Plasma 128(L) 136 - 145 mmol/L 02/18/2025 4:35 PM EDT [facility] Blood Venous blood specimen / Unknown Venipuncture / Unknown 02/18/2025 3:27 PM EDT 02/18/2025 4:00 PM EDT Anaya Felton ANALYSIS ENGINEER LAB BLOOD ORDERABLES Final R esult [facility] [address] [place] [id number] * MR Brain Neurofunctional Test w Physician [...] margins. 3. Components of the corticospinal tract ([employer]) have immediate proximity to the medial tumor margin. CRITICAL RESULT: No. COMMUNICATION: Per this written report. Drafted by Aurelio Brown MD on 02/18/2025 1:16 PM Final report signed by Aurelio Brown MD on 02/18/2025 6:45 PM Narrative 02/18/2025 6:45 PM EDT CLINICAL INDICATION: Presurgical planning, fMRI speech and motor. 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 TECHNIQUE: Anatomical MRI: 1 mm isotropic 3-D T1W MPRAGE was performed through the whole brain at 3 Annie magnet strength both before and after administration [...] margins. DTI Motor: The left corticospinal tract ([employer]) is displaced medially. The [employer] has proximity to the medial tumor margin at the level of ordaz radiata and the posterior limb of the internal capsule. The relatively more posterior portion of the [employer]ACH has immediate proximity, while the more anterior portion of the [employer] has close proximity with 3 mm ziwrae-[id number] distance. DTI Language: The left superior longitudinal [...] completion language DTI fiber tracking: blue = [employer] red = SLF Images were created in [facility] and then exported to PACS as burned in images. Saved Plan of fibertracking results will be found on the [facility] artillery or naval gunfire observer under the name fMRI_DTI Final. Procedure Note Aurelio Brown MD - 02/18/2025 CLINICAL INDICATION: Presurgical planning, fMRI speech and motor. 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 TECHNIQUE: Anatomical MRI: 1 mm isotropic [...] margins. DTI Motor: The left corticospinal tract ([employer]) is displaced medially. TheCST has proximity to the medial tumor margin at the level of coronaradiata and the posterior limb of the internal capsule. The relativelymore posterior portion of the [employer]ACH has immediate proximity, while the moreanterior portion of the [employer]ACH has close proximity with 3 mm iasnwy-jk-nfaolyejbbmnp. DTI Language: The left superior longitudinal fasciculus [...] completion language DTI fiber tracking: blue = [employer] red = SLF Images were created in [facility] and then exported to PACS as burned in images. Saved Plan of fibertracking results will be found on the [facility] serverunder the name fMRI_DTI Final. IMPRESSION: 1. Enhancing tumor involving the left posterior insula, retrolenticularregion, and temporal stem. 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 2. Left hemisphere dominance for language. No critical language corticalactivation areas in proximity to tumor margins. Components of the superiorlongitudinal fasciculus (SLF) have immediate proximity along the superiorand posterior tumor margins. 3. Components of the corticospinal tract ([employer]) have immediate proximity tothe medial tumor margin. CRITICAL RESULT: No. COMMUNICATION: Per this written report. Drafted by Aurelio Brown MD on 02/18/2025 1:16 PM Final report signed by Aurelio Brown MD on 02/18/2025 6:45 PM Ned Menendez MD [facility] MRI PROCEDURES Final Resul t * (ABNORMAL) Comprehensive Metabolic Panel, Plasma (02/18/2025 8:54 AM EDT) Glucose, Plasma 106(H) 74 - 99 mg/dL 02/18/2025 9:38 AM EDT [facility] BUN, Plasma 11 8 - 23 mg/dL 02/18/2025 9:38 AM EDT [facility] Creatinine, Plasma 0.54(L) 0.60 - 1.10 mg/dL 02/18/2025 9:38 AM EDT [facility] BUN/Creatinine Ratio 20 02/18/2025 9:38 AM EDT [facility] Sodium, Plasma 132(L) 136 - 145 mmol/L 02/18/2025 9:38 AM EDT [facility] Potassium, Plasma 3.9 3.6 - 4.9 mmol/L 02/18/2025 9:38 AM EDT [facility] Chloride, Plasma 96(L) 97 - 107 mmol/L 02/18/2025 9:38 AM EDT [facility] CO2, Plasma 24 22 - 29 mmol/L 02/18/2025 9:38 AM EDT [facility] Anion Gap 12 6 - 16 mmol/L 02/18/2025 9:38 AM EDT [facility] Total Calcium, Plasma 8.9 8.9 - 10.2 mg/dL 02/18/2025 9:38 AM EDT [facility] Total Protein 6.8 6.3 - 7.9 g/dL 02/18/2025 9:38 AM EDT [facility] Albumin, Plasma 4.0 3.5 - 5.2 g/dL 02/18/2025 9:38 AM EDT [facility] AST, Plasma 27 10 - 35 U/L 02/18/2025 9:38 AM EDT [facility] Comment:Hemolyzed, result ma y be falsely increased. ALT, Plasma 19 10 - 35 U/L 02/18/2025 9:38 AM EDT [facility] Alkaline Phosphatase, Plasma 63 46 - 142 U/L 02/18/2025 9:38 AM EDT [facility] Total Bilirubin, Plasma 0.4 0.2 - 1.1 mg/dL 02/18/2025 9:38 AM EDT [facility] eGFRcr 101.7 mL/min/1.7 3m*2 02/18/2025 9:38 AM EDT [facility] Comment:Reported eGFRcr in m L/min/1.73m2 is based the CKD-EPI 2020 equation that does not use a race coefficient. Blood Venous blood specimen / Unknown Venipuncture / Unknown 02/18/2025 8:54 AM EDT 02/18/2025 9:07 AM EDT Anaya Blackjeff ANALYSIS ENGINEER LAB BLOOD ORDERABLES Final R esult Performing Organization Address City/[facility]/ZIP Co de Phone Number [facility] [address] [place] [address] * Phosphorus, Plasma (02/18/2025 8:54 AM EDT) Phosphorus, Plasma 3.3 2.5 - 4.5 mg/dL 02/18/2025 9:38 AM EDT [facility] Blood Venous blood specimen / Unknown Venipuncture / Unknown 02/18/2025 8:54 AM EDT 02/18/2025 9:07 AM EDT Anaya [employer] ANALYSIS ENGINEER LAB BLOOD ORDERABLES Final R esult Performing Organization Address [facility] Co de Phone Number [facility] [address] [place] [address] * (ABNORMAL) Magnesium, Plasma (02/18/2025 8:54 AM EDT) Magnesium, Plasma 1.8(L) 1.9 - 2.4 mg/dL 02/18/2025 9:38 AM EDT [facility] Blood Venous blood specimen / Unknown Venipuncture / Unknown 02/18/2025 8:54 AM EDT 02/18/2025 9:07 AM EDT Anaya Blackjeff ANALYSIS ENGINEER LAB BLOOD ORDERABLES Final R esult Performing Organization Address City/[facility]/ZIP Co de Phone Number [facility] [address] [place] [address] * CBC W/O Differential (02/16/2025 9:51 PM EDT) WBC Count 10.03 3.70 - 10.30 10*3/uL LAB HEMATOLOGY METHOD 02/16/2025 10:10 PM EDT [facility] RBC Count 4.58 3.90 - 5.20 10*6/uL LAB HEMATOLOGY METHOD 02/16/2025 10:10 PM EDT [facility] HGB 13.0 11.2 - 15.7 g/dL LAB HEMATOLOGY METHOD 02/16/2025 10:10 PM EDT [facility] HCT 37.4 34.0 - 45.0 % LAB HEMATOLOGY METHOD 02/16/2025 10:10 PM EDT [facility] Platelet Count 365 155 - 369 10*3/uL LAB HEMATOLOGY METHOD 02/16/2025 10:10 PM EDT [facility] MCV 82 79 - 98 fL LAB HEMATOLOGY METHOD 02/16/2025 10:10 PM EDT [facility] MCH 28.4 26.0 - 32.0 pg LAB HEMATOLOGY METHOD 02/16/2025 10:10 PM EDT [facility] MCHC 34.8 30.7 - 35.5 g/dL LAB HEMATOLOGY METHOD 02/16/2025 10:10 PM EDT [facility] RDW 12.6 11.5 - 14.5 % LAB HEMATOLOGY METHOD 02/16/2025 10:10 PM EDT [facility] MPV 9.0 8.8 - 12.5 fL LAB HEMATOLOGY METHOD 02/16/2025 10:10 PM EDT [facility] nRBC 0.0 <=0.0 per 100 WBCs LAB HEMATOLOGY METHOD 02/16/2025 10:10 PM EDT [facility] Blood Venous blood specimen / Unknown Venipuncture / Unknown 02/16/2025 9:51 PM EDT 02/16/2025 10:08 PM EDT Ned Menendez MD LAB BLOOD ORDERABLES Final Res ult [facility] [address] [place] [address] * (ABNORMAL) Basic Metabolic Panel, Plasma (02/16/2025 9:51 PM EDT) Glucose, Plasma 135(H) 74 - 99 mg/dL 02/16/2025 10:31 PM EDT [facility] BUN, Plasma 9 8 - 23 mg/dL 02/16/2025 10:31 PM EDT [facility] Creatinine, Plasma 0.52(L) 0.60 - 1.10 mg/dL 02/16/2025 10:31 PM EDT [facility] BUN/Creatinine Ratio 17 02/16/2025 10:31 PM EDT [facility] Sodium, Plasma 125(L) 136 - 145 mmol/L 02/16/2025 10:31 PM EDT [facility] Potassium, Plasma 4.0 3.6 - 4.9 mmol/L 02/16/2025 10:31 PM EDT [facility] Chloride, Plasma 91(L) 97 - 107 mmol/L 02/16/2025 10:31 PM EDT [facility] CO2, Plasma 22 22 - 29 mmol/L 02/16/2025 10:31 PM EDT [facility] Anion Gap 12 6 - 16 mmol/L 02/16/2025 10:31 PM EDT [facility] Total Calcium, Plasma 9.7 8.9 - 10.2 mg/dL 02/16/2025 10:31 PM EDT [facility] eGFRcr 102.6 mL/min/1.7 3m*2 02/16/2025 10:31 PM EDT [facility] Comment:Reported eGFRcr in m L/min/1.73m2 is based the CKD-EPI 2020 equation that does not use a race coefficient. Blood Venous blood specimen / Unknown Venipuncture / Unknown 02/16/2025 9:51 PM EDT 02/16/2025 10:08 PM EDT Ned Menendez MD LAB BLOOD ORDERABLES Final Res ult [facility] [address] [place] [address] * (ABNORMAL) Magnesium, Plasma (02/16/2025 9:51 PM EDT) Magnesium, Plasma 1.7(L) 1.9 - 2.4 mg/dL 02/16/2025 10:31 PM EDT [facility] Blood Venous blood specimen / Unknown Venipuncture / Unknown 02/16/2025 9:51 PM EDT 02/16/2025 10:08 PM EDT us Ned Menendez MD LAB BLOOD [place]AB[place] [address] * (ABNORMAL) Phosphorus, Plasma (02/16/2025 9:51 PM EDT) Phosphorus, Plasma 2.3(L) 2.5 - 4.5 mg/dL 02/16/2025 10:31 PM EDT [facility] Blood Venous blood specimen / Unknown Venipuncture / Unknown 02/16/2025 9:51 PM EDT 02/16/2025 10:08 PM EDT Ned Menendez MD LAB BLOOD ORDERABLES Final Res ult Performing Organization Address [facility]/[place] [address] * Prothrombin Time/INR (02/16/2025 9:51 PM EDT) Prothrombin Time 13.3 12.0 - 14.3 sec 02/16/2025 10:28 PM EDT [facility] INR 1.0 0.9 - 1.1 02/16/2025 10:28 PM EDT [facility] Blood Venous blood specimen / Unknown Venipuncture / Unknown 02/16/2025 9:51 PM EDT 02/16/2025 10:08 PM EDT Narrative [facility] - 02/16/2025 10:28 PM EDT OPTIMAL INR RANGES FOR PATIENT ON ORAL ANTICOAGULANT THERAPY Prevention of venous thromboembolism INR 2.0 to 3.0 In patients with heart disease: Atrial fibrillation INR 2.0 to 3.0 Valvular heart disease INR 2.0 to 3.0 Tissue heart valves INR 2.0 to 3.0 Mechanical prosthetic valves INR 2.5 to 3.5 Prevention of recurrent NE INR 2.5 to 3.5 us Ned Menendez MD LAB BLOOD ORDERABLES Final Res ult Performing Organization Address City/[facility]/[place] [address] * APTT (02/16/2025 9:51 PM EDT) aPTT 25 25 - 35 sec 02/16/2025 10:28 PM EDT [facility] Blood Venous blood specimen / Unknown Venipuncture / Unknown 02/16/2025 9:51 PM EDT 02/16/2025 10:08 PM EDT Ned Menendez MD LAB BLOOD ORDERABLES Final Res ult Performing Organization Address [facility] [place] [address] * Anti Xa Level Unfractionated Heparin (02/16/2025 9:51 PM EDT) Anti Xa Level Unfractionated Heparin <0.11 <1.00 IU/mL 02/16/2025 10:30 PM EDT [facility] Blood Venous blood specimen / Unknown Venipuncture / Unknown 02/16/2025 9:51 PM EDT 02/16/2025 10:08 PM EDT Narrative [facility] - 02/16/2025 10:30 PM EDT Therapeutic Range: UFH Full Dose and ACS/NE protocols*: 0.30 - 0.70 IU/mL UFH Low Dose protocol*: 0.25 - 0.50 IU/mL UFH prophylaxis: Not established Maximus Ambrocio DO LAB BLOOD ORDERABLES Final Res ult Performing Organization Address [facility] [place] [address] * MR Head w and wo IV [...] 02/16/2025 11:25 PM us Maximus Ambrocio DO IM MRI PROCEDURES Final Resul t * CT [...] 02/16/2025 8:43 PM Final report signed by oJhny Win MD on 02/16/2025 9:12 PM Narrative [...] Total DLP (Dose-Length Product): 1500.35 mGy.cm (accession [id number]), 1500.35 mGy.cm (accession [id number]). Please note: The reported value represents the [...] Total DLP (Dose-Length Product): 1500.35 mGy.cm (accession [id number]),1500.35 mGy.cm (accession [id number]). Please note: The reported valuerepresents the total [...] Total DLP (Dose-Length Product): 1500.35 mGy.cm (accession [id number]), 1500.35 mGy.cm (accession [id number]). Please note: The reported value represents the [...] Total DLP (Dose-Length Product): 1500.35 mGy.cm (accession [id number]),1500.35 mGy.cm (accession [id number]). Please note: The reported valuerepresents the total [...] - 418 PRU 02/16/2025 7:43 PM EDT [facility] Blood Venous blood specimen / Unknown Venipuncture / Unknown 02/16/2025 7:25 PM EDT 02/16/2025 7:31 PM EDT Narrative [facility] - 02/16/2025 7:43 PM EDT [id number] [...] to the clinician. Testing performed in the [facility] for Special Coagulation. us Maximus Ambrocio DO LAB BLOOD ORDERABLES Final Res ult [facility] [address] [place] [address] * (ABNORMAL) CBC and Differential (02/16/2025 6:10 PM EDT) WBC Count 10.56(H) 3.70 - 10.30 10*3/uL LAB HEMATOLOGY METHOD 02/16/2025 6:18 PM EDT [facility] RBC Count 4.68 3.90 - 5.20 10*6/uL LAB HEMATOLOGY METHOD 02/16/2025 6:18 PM EDT [facility] HGB 13.2 11.2 - 15.7 g/dL LAB HEMATOLOGY METHOD 02/16/2025 6:18 PM EDT [facility] HCT 39.0 34.0 - 45.0 % LAB HEMATOLOGY METHOD 02/16/2025 6:18 PM EDT [facility] Platelet Count 348 155 - 369 10*3/uL LAB HEMATOLOGY METHOD 02/16/2025 6:18 PM EDT [facility] MCV 83 79 - 98 fL LAB HEMATOLOGY METHOD 02/16/2025 6:18 PM EDT [facility] MCH 28.2 26.0 - 32.0 pg LAB HEMATOLOGY METHOD 02/16/2025 6:18 PM EDT [facility] MCHC 33.8 30.7 - 35.5 g/dL LAB HEMATOLOGY METHOD 02/16/2025 6:18 PM EDT [facility] RDW 12.6 11.5 - 14.5 % LAB HEMATOLOGY METHOD 02/16/2025 6:18 PM EDT [facility] MPV 8.9 8.8 - 12.5 fL LAB HEMATOLOGY METHOD 02/16/2025 6:18 PM EDT [facility] nRBC 0.0 <=0.0 per 100 WBCs LAB HEMATOLOGY METHOD 02/16/2025 6:18 PM EDT [facility] Differential Type Automated LAB HEMATOLOGY METHOD 02/16/2025 6:18 PM EDT [facility] Neutrophils % 69 % LAB HEMATOLOGY METHOD 02/16/2025 6:18 PM EDT [facility] Lymphocytes % 23 % LAB HEMATOLOGY METHOD 02/16/2025 6:18 PM EDT [facility] Monocytes % 7 % LAB HEMATOLOGY METHOD 02/16/2025 6:18 PM EDT [facility] Eosinophils % 0 % LAB HEMATOLOGY METHOD 02/16/2025 6:18 PM EDT [facility] Basophils % 1 % LAB HEMATOLOGY METHOD 02/16/2025 6:18 PM EDT [facility] Immature Granulocytes % 0 % LAB HEMATOLOGY METHOD 02/16/2025 6:18 PM EDT [facility] Neutrophils Absolute 7.33(H) 1.60 - 6.10 10*3/uL LAB HEMATOLOGY METHOD 02/16/2025 6:18 PM EDT [facility] Lymphocytes Absolute 2.38 1.20 - 3.90 10*3/uL LAB HEMATOLOGY METHOD 02/16/2025 6:18 PM EDT [facility] Monocytes Absolute 0.73 0.30 - 0.90 10*3/uL LAB HEMATOLOGY METHOD 02/16/2025 6:18 PM EDT [facility] Eosinophils Absolute 0.03 0.00 - 0.50 10*3/uL LAB HEMATOLOGY METHOD 02/16/2025 6:18 PM EDT [facility] Basophils Absolute 0.05 0.00 - 0.10 10*3/uL LAB HEMATOLOGY METHOD 02/16/2025 6:18 PM EDT [facility] Immature Granulocytes Absolute 0.04 0.00 - 0.06 10*3/uL LAB HEMATOLOGY METHOD 02/16/2025 6:18 PM EDT [facility] Blood Venous blood specimen / Unknown Venipuncture / Unknown 02/16/2025 6:10 PM EDT 02/16/2025 6:14 PM EDT Narrative [facility] - 02/16/2025 6:18 PM EDT Therapeutic decision making should be based on absolute values, rather than percentages. us Maximus Ambrocio DO LAB BLOOD ORDERABLES Final Res ult [facility] [address] [place] [address] * (ABNORMAL) Comprehensive Metabolic Panel, Plasma (02/16/2025 6:10 PM EDT) Glucose, Plasma 102(H) 74 - 99 mg/dL 02/16/2025 6:35 PM EDT [facility] BUN, Plasma 11 8 - 23 mg/dL 02/16/2025 6:35 PM EDT [facility] Creatinine, Plasma 0.57(L) 0.60 - 1.10 mg/dL 02/16/2025 6:35 PM EDT [facility] BUN/Creatinine Ratio 19 02/16/2025 6:35 PM EDT [facility] Sodium, Plasma 126(L) 136 - 145 mmol/L 02/16/2025 6:35 PM EDT [facility] Potassium, Plasma 4.2 3.6 - 4.9 mmol/L 02/16/2025 6:35 PM EDT [facility] Comment:Hemolyzed, result ma y be falsely increased. Chloride, Plasma 91(L) 97 - 107 mmol/L 02/16/2025 6:35 PM EDT [facility] CO2, Plasma 22 22 - 29 mmol/L 02/16/2025 6:35 PM EDT [facility] Anion Gap 13 6 - 16 mmol/L 02/16/2025 6:35 PM EDT [facility] Total Calcium, Plasma 9.7 8.9 - 10.2 mg/dL 02/16/2025 6:35 PM EDT [facility] Total Protein 7.7 6.3 - 7.9 g/dL 02/16/2025 6:35 PM EDT [facility] Albumin, Plasma 4.6 3.5 - 5.2 g/dL 02/16/2025 6:35 PM EDT [facility] AST, Plasma 30 10 - 35 U/L 02/16/2025 6:35 PM EDT [facility] Comment:Hemolyzed, result ma y be falsely increased. ALT, Plasma 22 10 - 35 U/L 02/16/2025 6:35 PM EDT [facility] Alkaline Phosphatase, Plasma 70 46 - 142 U/L 02/16/2025 6:35 PM EDT [facility] Total Bilirubin, Plasma 0.3 0.2 - 1.1 mg/dL 02/16/2025 6:35 PM EDT [facility] eGFRcr 100.4 mL/min/1.7 3m*2 02/16/2025 6:35 PM EDT [facility] Comment:Reported eGFRcr in m L/min/1.73m2 is based the CKD-EPI 2020 equation that does not use a race coefficient. Blood Venous blood specimen / Unknown Venipuncture / Unknown 02/16/2025 6:10 PM EDT 02/16/2025 6:14 PM EDT us Maximus Ambrocio DO LAB BLOOD ORDERABLES Final Res ult [facility] [address] [place] [address] * (ABNORMAL) APTT (02/16/2025 6:10 PM EDT) aPTT 23(L) 25 - 35 sec 02/16/2025 6:32 PM EDT [facility] Blood Venous blood specimen / Unknown Venipuncture / Unknown 02/16/2025 6:10 PM EDT 02/16/2025 6:14 PM EDT Maximus T Cristóbal DO LAB BLOOD ORDERABLES Final Res ult Performing Organization Address [facility] Co de Phone Number [facility] [address] [place] [address] * Prothrombin Time/INR (02/16/2025 6:10 PM EDT) Prothrombin Time 12.7 12.0 - 14.3 sec 02/16/2025 6:32 PM EDT [facility] INR 1.0 0.9 - 1.1 02/16/2025 6:32 PM EDT [facility] Blood Venous blood specimen / Unknown Venipuncture / Unknown 02/16/2025 6:10 PM EDT 02/16/2025 6:14 PM EDT Narrative [facility] - 02/16/2025 6:32 PM EDT OPTIMAL INR RANGES FOR PATIENT ON ORAL ANTICOAGULANT THERAPY Prevention of venous thromboembolism INR 2.0 to 3.0 In patients with heart disease: Atrial fibrillation INR 2.0 to 3.0 Valvular heart disease INR 2.0 to 3.0 Tissue heart valves INR 2.0 to 3.0 Mechanical prosthetic valves INR 2.5 to 3.5 Prevention of recurrent NE INR 2.5 to 3.5 Maximus Cristóbal DO LAB BLOOD ORDERABLES Final Res ult Performing Organization Address [facility] Co de Phone Number [facility] [address] [place] [address] * Type and Screen (02/16/2025 6:10 PM EDT) ABO/Rh A Positive 02/16/2025 5:59 PM EDT BLOOD BANK Antibody Screen Negative 02/16/2025 5:59 PM EDT BLOOD BANK Specimen Expiration 02/19/2025 23:59 02/16/2025 5:59 PM EDT BLOOD BANK Blood Venous blood specimen / Unknown Venipuncture / Unknown 02/16/2025 6:10 PM EDT 02/16/2025 6:13 PM EDT us Maixmus Ambrocio DO LAB BLOOD BANK TEST ORDERABLES Final Result BLOOD [place] [address], [place] * CT Head w and wo IV [...] 5:54 PM by Tanmay Alex MD via [employer]. Drafted by Tanmay Alex MD [...] TOTAL DLP (Dose-Length Product): 743.50 mGy.cm (accession [id number]), 743.50 mGy.cm (accession [id number]), 743.50 mGy.cm (accession [id number]). Please note: The reported value represents the [...] No aneurysm of either internal carotid artery. [place] and Major Peripheral Branches: There [...] TOTAL DLP (Dose-Length Product): 743.50 mGy.cm (accession [id number]),743.50 mGy.cm (accession [id number]), 743.50 mGy.cm (accession [id number]).Please note: The reported value represents the total [...] arteries: Multifocal moderate stenosis at the proximal [id number] of the right vertebral artery. Mild stenosis [...] No aneurysm of either internal carotid artery. [place] and Major Peripheral Branches: There [...] 02/16/2025 5:54 PMby Tanmay Alex MD via [employer]. Drafted by Tanmay Alex MD [...] 5:54 PM by Tanmay Alex MD via [employer]. Drafted by Tanmay Alex MD [...] TOTAL DLP (Dose-Length Product): 743.50 mGy.cm (accession [id number]), 743.50 mGy.cm (accession [id number]), 743.50 mGy.cm (accession [id number]). Please note: The reported value represents the [...] No aneurysm of either internal carotid artery. [place] and Major Peripheral Branches: There [...] TOTAL DLP (Dose-Length Product): 743.50 mGy.cm (accession [id number]),743.50 mGy.cm (accession [id number]), 743.50 mGy.cm (accession [id number]).Please note: The reported value represents the total [...] arteries: Multifocal moderate stenosis at the proximal [id number] of the right vertebral artery. Mild stenosis [...] No aneurysm of either internal carotid artery. [place] and Major Peripheral Branches: There [...] 02/16/2025 5:54 PMby Tanmay Alex MD via [employer]. Drafted by Tanmay Alex MD on 02/16/2025 5:51 PM Final report signed by Tanmay Alex MD on 02/16/2025 6:18 PM us Kami Amin DO IMG CT PROCEDURES Final Resul t * CT Angio Head (02/16/2025 3:41 PM EDT) Anatomical Region Laterality Modality [place] Computed Tomogr aphy Impressions 02/16/2025 [...] 5:54 PM by Tanmay Alex MD via [employer]. Drafted by Tanmay Alex MD [...] TOTAL DLP (Dose-Length Product): 743.50 mGy.cm (accession [id number]), 743.50 mGy.cm (accession [id number]), 743.50 mGy.cm (accession [id number]). Please note: The reported value represents the [...] No aneurysm of either internal carotid artery. [place] and Major Peripheral Branches: There [...] TOTAL DLP (Dose-Length Product): 743.50 mGy.cm (accession [id number]),743.50 mGy.cm (accession [id number]), 743.50 mGy.cm (accession [id number]).Please note: The reported value represents the total [...] arteries: Multifocal moderate stenosis at the proximal [id number] of the right vertebral artery. Mild stenosis [...] No aneurysm of either internal carotid artery. [place] and Major Peripheral Branches: There [...] 02/16/2025 5:54 PMby Tanmay Alex MD via [employer]. Drafted by Tanmay Alex MD on 02/16/2025 5:51 PM Final report signed by Tanmay Alex MD on 02/16/2025 6:18 PM Kami Amin DO IMG CT PROCEDURES Final Resul t * CBC (02/16/2025 3:07 PM EDT) WBC Count 8.72 3.70 - 10.30 10*3/uL LAB HEMATOLOGY METHOD 02/16/2025 3:14 PM EDT [facility] RBC Count 4.57 3.90 - 5.20 10*6/uL LAB HEMATOLOGY METHOD 02/16/2025 3:14 PM EDT [facility] HGB 13.0 11.2 - 15.7 g/dL LAB HEMATOLOGY METHOD 02/16/2025 3:14 PM EDT [facility] HCT 37.9 34.0 - 45.0 % LAB HEMATOLOGY METHOD 02/16/2025 3:14 PM EDT [facility] Platelet Count 363 155 - 369 10*3/uL LAB HEMATOLOGY METHOD 02/16/2025 3:14 PM EDT [facility] MCV 83 79 - 98 fL LAB HEMATOLOGY METHOD 02/16/2025 3:14 PM EDT [facility] MCH 28.4 26.0 - 32.0 pg LAB HEMATOLOGY METHOD 02/16/2025 3:14 PM EDT [facility] MCHC 34.3 30.7 - 35.5 g/dL LAB HEMATOLOGY METHOD 02/16/2025 3:14 PM EDT [facility] RDW 12.6 11.5 - 14.5 % LAB HEMATOLOGY METHOD 02/16/2025 3:14 PM EDT [facility] MPV 8.8 8.8 - 12.5 fL LAB HEMATOLOGY METHOD 02/16/2025 3:14 PM EDT [facility] nRBC 0.0 <=0.0 per 100 WBCs LAB HEMATOLOGY METHOD 02/16/2025 3:14 PM EDT [facility] Blood Venous blood specimen / Unknown Venipuncture / Unknown 02/16/2025 3:07 PM EDT 02/16/2025 3:11 PM EDT us Kami Amin DO LAB BLOOD ORDERABLES Final Re sult [facility] [address] [place] [address] * (ABNORMAL) CMP (02/16/2025 3:07 PM EDT) Glucose, Plasma 119(H) 74 - 99 mg/dL 02/16/2025 3:48 PM EDT [facility] BUN, Plasma 12 8 - 23 mg/dL 02/16/2025 3:48 PM EDT [facility] Creatinine, Plasma 0.57(L) 0.60 - 1.10 mg/dL 02/16/2025 3:48 PM EDT [facility] BUN/Creatinine Ratio 21 02/16/2025 3:48 PM EDT [facility] Sodium, Plasma 132(L) 136 - 145 mmol/L 02/16/2025 3:48 PM EDT [facility] Potassium, Plasma 4.3 3.6 - 4.9 mmol/L 02/16/2025 3:48 PM EDT [facility] Chloride, Plasma 90(L) 97 - 107 mmol/L 02/16/2025 3:48 PM EDT [facility] CO2, Plasma 22 22 - 29 mmol/L 02/16/2025 3:48 PM EDT [facility] Anion Gap 20(H) 6 - 16 mmol/L 02/16/2025 3:48 PM EDT [facility] Total Calcium, Plasma 9.7 8.9 - 10.2 mg/dL 02/16/2025 3:48 PM EDT [facility] Total Protein 7.7 6.3 - 7.9 g/dL 02/16/2025 3:48 PM EDT [facility] Albumin, Plasma 4.6 3.5 - 5.2 g/dL 02/16/2025 3:48 PM EDT [facility] AST, Plasma 22 10 - 35 U/L 02/16/2025 3:48 PM EDT [facility] Comment:Hemolyzed, result ma y be falsely increased. ALT, Plasma 21 10 - 35 U/L 02/16/2025 3:48 PM EDT [facility] Alkaline Phosphatase, Plasma 70 46 - 142 U/L 02/16/2025 3:48 PM EDT [facility] Total Bilirubin, Plasma 0.3 0.2 - 1.1 mg/dL 02/16/2025 3:48 PM EDT [facility] eGFRcr 100.4 mL/min/1.7 3m*2 02/16/2025 3:48 PM EDT [facility] Comment:Reported eGFRcr in m L/min/1.73m2 is based the CKD-EPI 2020 equation that does not use a race coefficient. Blood Venous blood specimen / Unknown Venipuncture / Unknown 02/16/2025 3:07 PM EDT 02/16/2025 3:11 PM EDT us Kami Amin DO LAB BLOOD ORDERABLES Final Re sult [facility] [address] [place] [address] * (ABNORMAL) POCT glucose meter (02/16/2025 2:42 PM EDT) Pathologist [facility] POCT Glucose 145(H) 74 - 99 mg/dL [...] Comment 02/16/2025 2:43 PM EDT [facility] Life Sciences Instructor ID Naomi Moy 02/16/2025 2:43 PM EDT [facility] Device ID [id number] 02/16/2025 2:43 PM EDT [facility] Specimen Type POC Capillary 02/16/2025 2:43 PM EDT [facility] Blood Capillary blood specimen / Unknown 02/16/2025 2:42 PM EDT 02/16/2025 2:43 PM EDT us Generic Provider Poct LAB POINT OF CARE TEST DOCKED DEVICE UNSOLICITED RESULTS Final Result Performing Organization Address City/State/[facility] Co de Phone Number [facility] [address] [place] [address] documented in this encounter Visit Diagnoses Diagnosis [...] on Sun02/16/25 at 2017, Until Sun02/16/25 at 205, Routine, Imaging Protocol Orders Given 02/16/2025 8:51 [...] Once in imaging, 1 dose, Starting on Sharron 02/26/25 at 0811, Until Sharron 02/26/25 at 0811, Routine, Imaging Protocol Orders Given [...] II-Outpatient)/On Unit(Inpatient) 0606 (Given - Provider: Gian Taylor RN)1211 (Given - Provider: Sherin Bynum RN)1751 [...] Routine 1125 (Given - Provider: Sherin Bynum RN)2037 (Given [...] Auto Held - Provider: Automatic Transfer Provider)0335 (MAR Unhold - Provider: Milla Peck RN)0606 (Given - Provider: Gian Taylor, SKY)1211 (Given [...] Sherin Bynum RN)2037 (Given - Provider: Kathleen Linn, SKY) 0839 (Given - Provider: Sherin Bynum RN)1355 [...] Bynum RN) 0042 (Given - Provider: Gian Taylor RN)0948 (Given - Provider: Sherin Bynum, SKY)1646 (Given - Provider: Sherin Bynum RN)2349 (Given - Provider: Kathleen Linn RN) 0839 [...] RN)221 (Given - Provider: Gian Taylor, SKY) levETIRAcetam (Keppra) tablet 1,500 mg 1,500 mg, Oral, 2 times daily, First dose (after last modification) on Sun02/26/25 at 0900, Until Discontinued, Routine 0948 (Given - Provider: Sherin Bynum RN)2036 (Given - Provider: Kathleen Linn RN) 0839 (Given - Provider: Sherin Bynum RN) lisinopril tablet 20 mg 20 mg, Oral, 2 times daily, First dose on Sun02/19/25 at 0900, Until Discontinued 0504 (MAR Unhold - Provider: Automatic Transfer Provider)0838 (Given - Provider: Sherin Bynum RN)221 (Given - Provider: Gian Taylor, SKY) 0947 (Given - Provider: Sherin Bynum RN)2036 (Given - Provider: Kathleen Linn RN) 0839 (Given - Provider: Sherin Bynum RN) nebivolol (Bystolic) tablet 5 mg 5 mg, Oral, Daily, First dose on Sun02/19/25 at 0900, Until Discontinued, Routine 0504 ([facility] Unhold - Provider: Automatic Transfer Provider)0839 (Given - Provider: Sherin Bynum RN) 0918 (Given - Provider: Sherin Bynum RN) 0839 (Given - Provider: Sherin Bynum RN) NIFEdipine XL (Procardia XL) 24 hr tablet 30 mg 30 mg, Oral, Daily, First dose on Sun02/23/25 at 1345, Until Discontinued, Routine 0504 ([facility] Unhold - [...] (MAR Unhold - Provider: Automatic Transfer Provider)0921 (Not Given - Provider: Sherin Bynum RN - Reason: Patient/family refused)221 (Given - Provider: Gian Taylor RN) 1018 (Not Given - Provider: Sherin Bynum RN - Reason: Hold for condition: must add comment - Comment: try stool softener first)2036 (Given - Provider: Kathleen Linn RN) 0839 (Given - Provider: Sherin Bynum RN) senna-docusate (Maggy-Colace) 8.6-50 MG per tablet 2 [...] Sherin Bynum RN)2222 (Given - Provider: Gian Taylor RN) 1019 (Canceled Entry - Provider: Sherin Bynum RN)2037 (Given - Provider: Kathleen Linn RN) 0910 [...] at 1624, Routine, mild pain, headaches 0504 ([facility] Unhold - Provider: Automatic Transfer Provider) bisacodyl (Dulcolax) suppository 10 mg 10 mg, Rectal, Daily PRN, Starting on Sun02/20/25 at 1045, Until Sun02/27/25 at 1624, Routine, constipation 0504 ([facility] Unhold - Provider: Automatic Transfer Provider) cyclobenzaprine (Flexeril) tablet 5 mg 5 mg, Oral, 3 times daily PRN, Starting on Sun02/25/25 at 1226, Until Sun02/27/25 at 1624, Routine, muscle spasms 1325 (Given - Provider: Sherin Bynum, SKY) fentaNYL (Sublimaze) injection 25 mcg (COMPLETED) 25 [...] high blood pressure, SBP > 140 0504 ([facility] Unhold - Provider: Automatic Transfer Provider) [...] high blood pressure, SBP > 140 0504 ([facility] Unhold - Provider: Automatic Transfer Provider) labetalol (Normodyne,Trandate) injection 10 mg(Linked Group 4) 10 mg, Intravenous, Every 1 hour PRN, Starting on Sun02/16/25 at 2136, Until Sun02/27/25 at 1624, Routine, high blood pressure, SBP > 140 0504 ([facility] Unhold - Provider: Automatic Transfer Provider) labetalol (Normodyne,Trandate) injection 20 mg(Linked Group 4) 20 mg, Intravenous, Every 1 hour PRN, Starting on Sun02/16/25 at 2136, Until Sun02/27/25 at 1624, Routine, high blood pressure, SBP > 140 0504 ([facility] Unhold - Provider: Automatic Transfer Provider) ondansetron (Zofran) injection 4 mg(Linked Group 5) 4 mg, Intravenous, Every 6 hours PRN, Starting on Sun02/16/25 at 2136, Until Sun02/27/25 at 1624, Routine, nausea, vomiting 0504 ([facility] Unhold - Provider: Automatic Transfer Provider) ondansetron ODT (Zofran-ODT) disintegrating tablet 4 mg(Linked Group 5) 4 mg, Oral, Every 6 hours PRN, Starting on Sun02/16/25 at 2136, Until Sun02/27/25 at 1624, Routine, nausea, vomiting 0504 ([facility] Unhold - Provider: Automatic Transfer Provider) sodium chloride 0.9 % flush 10 mL(Linked Group 2) 10 mL, Intravenous, As needed, Starting on Sun02/16/25 at 2136, Until Sun02/27/25 at 1624, Routine, line care 0504 ([facility] Unhold - Provider: Automatic Transfer Provider) [...] documented as of this encounter Care Teams Lead Recreation Assistant Relationship Specialty Start Date End Date Caroline Shultz APRN [address] [place] [address] PCP - General 09/22/24 documented as of this encounter
--- OUTSIDE RECORDS SUMMARY | 2025-02-24 17:34 | XMS_ITS | Encounter Summary ---
Author Organization [facility] [place] Address [address] [place] [address] Care Team Providers Care Puttying And Calking Supervisor Name Role Phone Caroline Shultz APRN Primary Care Provider [phone] Reason for Visit * Auth/Cert (Routine) Specialty Diagnoses / Procedures Referred By Contac t Referred To Contact Diagnoses Brain tumor (benign) (CMS/HCC) Brain mass Ned Menendez MD [address] [place] [address] Phone: tel: fax: [facility] Inpatient [address] [place] [address] Phone: tel: Referral ID Status Reason Start Date Expiration Date Visits Re quested Visits Authorized [id number] 1 1 Encounter Details Date Type Department Care Team (Late st Contact Info) Description 02/24/2025 5:34 PM EDT Anesthesia Event [facility] OPERATING ROOM [address] [place] [id number] Alessandro Medina DO [address] [place] [id number] Paulette Mata PA [address] [place] [address] Anesthesia Record Procedure Summary Procedure [...] any time in the past 12 m [facility], were you homeless or living in a long term (including now)? No 09/23/2024 Humiliation, Afraid, Rape, [...] any time in the past 12 m [facility], were you homeless or living in a long term (including now)? No 02/19/2025 Utilities Answer Date Recorded In the past 12 months has th e [employer], gas, oil, or water company threatened to [...] Behavior (Lifetime) No 5 4:16 PM EDT iLsa James RN documented as of this encounter [...] portions of the procedure(s) and immediately available [facility] the entire duration. See resident note [...] Normal Ventricular Rate 66 Atrial Rate 66 OR Interval 194 QRSD Interval 88 QT Interval 404 QTC Interval 423 P [place] 51 R [place] 23 T Wave [place] 26 Diagnosis Sinus rhythm with occasional premature [...] is no recent study available for direct [id number]-eh-[id number] comparison. CT chest/abd/pelvis Impression 1. No acute findings in the chest, abdomen and pelvis. 2. No evidence of metastatic disease or underlying neoplasm in the chest, abdomen and pelvis. PFTs Pulmonary Functions Testing Results: No results found for: FAZ8RAW , [id number] , [id number] , FVCPRED Body mass index is 40.92 [...] fibrillation, CHF, hyperlipidemia, murmur, pacemaker or past MA. hypertension:Does not have chest pain. Respiratory: no [...] PM EDT Appointment [facility] [id number] [place] [address] Miguel Perez MD [address] [place] [address] 03/23/2025 1:45 PM EDT Clinical Support [facility] [address] [place] [address] 03/23/2025 2:00 PM EDT Office Visit [facility] [address] [place] [address] Chente Sebastian MD [address] Liyah Conde [facility] [address] [place] [address] documented as of this encounter Procedures Procedure Name Priority Date/Time Associated Diagnosis Comments PB ANESTHESIA NON-TIMED PROCEDURE PLACEHOLDER Routine 02/24/2025 6:09 PM EDT ANESTHESIA PERIPHERAL IV PLACEMENT Routine 02/24/2025 6:09 PM EDT PB ANESTHESIA PLACEHOLDER Routine 02/24/2025 5:38 PM EDT OR AN ELECTIVE ENDOTRACHEAL AIRWAY Routine 02/24/2025 5:38 [...] MD ANESTHESIA ORDERABLES F inal Result * OR AN ELECTIVE ENDOTRACHEAL AIRWAY, PB ANESTHESIA PLACEHOLDER [...] Sun02/24/25 at 1754, Until Sun02/25/25 at 001, Routine Rate/Dose Change 02/24/2025 11:48 PM EDT [...] documented as of this encounter Care Teams Puttying And Calking Supervisor Relationship Specialty Start Date End Date Caroline Shultz APRN [address] [place] [address] PCP - General 09/22/24 documented as of this encounter
--- OUTSIDE RECORDS SUMMARY | 2025-02-24 17:55 | XMS_ITS | Encounter Summary ---
Author Organization Healthcare Address [address] [place] [address] Care Team Providers Care Attache Name Role Phone Caroline Shultz APRN Primary Care Provider [phone] Reason for Visit * Reason Comments difficulty speaking * Auth/Cert (Routine) Specialty Diagnoses / Procedures Referred By Contac t Referred To Contact Diagnoses Brain tumor (benign) (CMS/HCC) Brain mass Ned Menendez MD [address] [address] Phone: tel: fax: PAV A Inpatient [address] [place] [address] Phone: tel: Referral ID Status Reason Start Date Expiration Date Visits Re quested Visits Authorized [id number] 1 1 Encounter Details Date Type Department Care Team (Late st Contact Info) Description 02/24/2025 5:55 PM EDT - 02/24/2025 10:45 PM EDT Surgery P[facility] A OPERATING ROOM [address] [place] [address] Sanchez Zaldivar MD [address] [address] LEFT CRANIOTOMY, FOR INTRACRANIAL NEOPLASM [...] time in the past 12 m [facility], were you homeless or living in a [...] time in the past 12 m [facility], were you homeless or living in a [...] Indicated 02/24/2025 4:16 PM EDT Lisa James, SKY * Question Answer Date of Assessment Author [...] 2 days. 18 tablet 02/27/2025 fish oil ([place]-3) 500 MG capsule Take 2,400 mg by [...] discharge patient today. Foreign Marshall DO PGY-2 [facility] - Internal Medicine Epic Chat preferred; Pager [phone] Cosigned by Ede Ruiz MD at 03/07/2025 [...] ordered and to be delviered bedside from [facility]. Pt d/c to home address. No other CM needs identified. Guy Virk LCSW * Samuel Rodriguez - Sherin Bynum RN - 02/27/2025 9:46 AM EDT Images from the original note were not included. 65122 Depression: Tips to Help Yourself As your [...] you can. Go to a movie, ballgame, lutheran service, or social event. Talk openly with [...] problems. Last Reviewed Date: 2023 00:00:00 ?? 9366-2800 [employer]. All rights reserved. This information is not intended as a substitute for professional medical care. Always follow your healthcare professional's instructions. * Samuel Rodriguez - Sherin Bynum RN - 02/27/2025 9:45 AM EDT Images from the original note were not included. 67059 What is a Focal Seizure (Partial Seizure)? [...] lives. Last Reviewed Date: 2023 00:00:00 ?? 4868-9266 [employer]. All rights reserved. This information is not intended as a substitute for professional medical care. Always follow your healthcare professional's instructions. * Pedrodiana Jennifer - Sherin Bynum RN - 02/27/2025 9:45 AM EDT Images from the original note were not included. 08128 What Is Aphasia? Aphasia is a loss [...] must. Last Reviewed Date: 2024 00:00:00 ?? [id number] [employer]. All rights reserved. This information is not intended as a substitute for professional medical care. Always follow your healthcare professional's instructions. * Samuel Rodriguez - Sherin Bynum RN - 02/27/2025 9:45 AM EDT Images from the original note were not included. [address]70[address] Aphasia: Improving Communication Aphasia is a condition [...] don?t. Last Reviewed Date: 2024 00:00:00 ?? 6002-9244 [employer]. All rights reserved. This information is not intended as a substitute for professional medical care. Always follow your healthcare professional's instructions. * Samuel FaithCINTHYA - Sherin Bynum RN - 02/27/2025 9:45 AM EDT Images from the original note were not included. [id number] Brain Tumor Your body makes new cells [...] holidays. Last Reviewed Date: 2024 00:00:00 ?? 9976-5127 [employer]. All rights reserved. This information is not [...] MD PCP name and Address: Caroline Shultz, GEODESY TEACHER [address] [facility] / [place] [address] Referring provider name and address: No referring provider defined for this encounter. Chief Concern, Brief History of Present Illness, and Hospital Course Wali Murrell is a 64 y.o. female with history of HTN, T2DM, depression, GERD, and reported focal seizure who presented to the [facility] emergency department on 02/16/2025 with expressive aphasia [...] 81 mg daily when appropriate, follow-up with [facility] Neu[facility] in 8-12 weeks. Patient provided [...] oil 500 MG capsule Commonly known as: [place]-3 Take 2,400 mg by mouth daily. levETIRAcetam [...] Your Medications These medications were sent to [facility] [place], [place] - [address] [facility] [address] acetaminophen 500 MG tablet cyclobenzaprine 5 MG [...] 03/10/2025 10:00 AM Sheba Fisher APRN [facility] 03/16/2025 9:30 AM Sanchez Zaldivar MD [facility] Test Results Pending At Discharge Pending Labs [...] would like to follow here at the [facility]. - final treatment planning pending final [...] would like to follow here at the [facility]. - final treatment planning pending final [...] would like to follow here at the [facility]. - final treatment planning pending final [...] Normotensive - Sodium Goals: Normonatremia - recommend PT/OT/STEAM TUNNEL FEEDER evaluation - No indication to obtain echo with most recently obtained on 09/2024 - follow-up w/[facility] Neurology [facility] in 8-12 weeks following discharge [...] Normotensive - Sodium Goals: Normonatremia - recommend PT/OT/STEAM TUNNEL FEEDER evaluation - No indication to obtain echo with most recently obtained on 09/2024 - follow-up w/[facility] Neu[facility] in 8-12 weeks following discharge [...] Normotensive - Sodium Goals: Normonatremia - recommend PT/OT/STEAM TUNNEL FEEDER evaluation - No indication to obtain echo with most recently obtained on 09/2024 - follow-up w/[facility] Neu[facility] in 8-12 weeks following discharge [...] tablet 1,000 mg 1,000 mg Oral q6h [facility] John Bhat MD 1,000 mg at02/26/25 1118 [...] mg 20 mg Oral BID Anaya Felton GEODESY TEACHER 20 mg at 02/26/25 0947 nebivolol (Bystolic) tablet 5 mg 5 mg Oral Daily Ranjana Yu MD 5 mg at 02/26/25 0918 NIFEdipine XL (Procardia XL) 24 hr tablet 30 mg 30 mg Oral Daily Anaya Felton GEODESY TEACHER 30 mg at 02/26/25 0947 ondansetron ODT [...] would like to follow here at the [facility]. - final treatment planning pending final [...] Normotensive - Sodium Goals: Normonatremia - recommend PT/OT/STEAM TUNNEL FEEDER evaluation - No indication to obtain echo [...] any questions or concerns. Anaya Felton, CARIDAD, GEODESY TEACHER Advanced Practice Provider Department of Neurosurgery [facility] * Progress Notes - Jules Wagner, PharmD [...] Connections: Unknown (06/18/2023) Received from [facility] Family and Community Support Help with [...] or ankle clonus Coordination: no ataxia with [id number] and [id number] testing Gait/Station: Not observed Cortical: No Extinction [...] Normotensive - Sodium Goals: Normonatremia - recommend PT/OT/STEAM TUNNEL FEEDER evaluation - No indication to obtain echo with most recently obtained on 09/2024 - follow-up w/[facility] Neu[facility] in 8-12 weeks following discharge [...] list: Left insular brain mass, 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 Review of Systems Review of Systems All other systems reviewed and are negative. --Oncology History-- [Associated problem not found] Oncology History No history exists. Past Medical, Surgical, Family, and Social History: Reviewed by me; any relevant updates made in [facility]. Social History Lives in [facility] Allergies Reviewed by me; any relevant updates made in [facility]. Medications Current Medications[1] Physical Exam Vitals: [...] Labs, Imaging, and Microbiology Reviewed personally in [facility]. Notable as discussed in Assessment and Plan. Pathology: Pending or [1] Current Facility-Administered Medications: acetaminophen (Tylenol) tablet 1,000 mg, 1,000 mg, Oral, q6h [facility], John Bhat MD, 1,000 mg at 02/25/25 1211 acetaminophen (Tylenol) tablet 650 mg, 650 mg, Oral, q6h PRN, NipAnaya aguilar M, GEODESY TEACHER bisacodyl (Dulcolax) suppository 10 mg, 10 mg, Rectal, Daily PRN, NipAnaya aguilar, GEODESY TEACHER cyclobenzaprine (Flexeril) tablet 5 mg, 5 mg, Oral, TID, John Bhat MD, 5 mg at 02/25/25 1506 cyclobenzaprine (Flexeril) tablet 5 mg, 5 mg, Oral, TID PRN, Nipper, Anaya M, GEODESY TEACHER dexamethasone (Decadron) injection 4 mg, 4 mg, Intravenous, q6h, [facility], GEODESY TEACHER, 4 mg at 02/25/25 1211 heparin (porcine) injection 7,500 Units, 7,500 Units, Subcutaneous, q8h, [facility], GEODESY TEACHER, 7,500 Units at 02/25/25 1506 hydrALAZINE (Apresoline) [...] tablet 1,000 mg, 1,000 mg, Oral, BID, [facility], GEODESY TEACHER, 1,000 mg at 02/25/25 0838 lisinopril tablet 20 mg, 20 mg, Oral, BID, [facility], GEODESY TEACHER, 20 mg at 02/25/25 0838 nebivolol (Bystolic) tablet 5 mg, 5 mg, Oral, Daily, Ranjana Yu MD, 5 mg at 02/25/25 0839 NIFEdipine XL (Procardia XL) 24 hr tablet 30 mg, 30 mg, Oral, Daily, [facility], GEODESY TEACHER, 30 mg at 02/25/25 0839 ondansetron ODT (Zofran-ODT) disintegrating tablet 4 mg, 4 mg, Oral, q6h PRN OR ondansetron (Zofran) injection 4 mg, 4 mg, Intravenous, q6h PRN, Katharine Oreilly MD pantoprazole (Protonix) EC tablet 40 mg, 40 mg, Oral, Daily, Michael Jain, 40 mg at 839 polyethylene glycol (Miralax) packet 17 g, 17 g, Oral, BID, Nipper, Anaya M, GEODESY TEACHER, 17 g at 900 senna-docusate (Maggy-Colace) 8.6-50 MG per tablet 2 tablet, 2 tablet, Oral, BID, Nipper, Anaya M, GEODESY TEACHER, 2 tablet at 02/25/25 0838 sertraline (Zoloft) [...] 10 mg Rectal Daily PRN NipAnaya aguilar, GEODESY TEACHER cyclobenzaprine (Flexeril) tablet 5 mg 5 mg Oral TID John Bhat MD 5 mg at 02/25/25 0839 cyclobenzaprine (Flexeril) tablet 5 mg 5 mg Oral TID PRN NipAnaya aguilar, JEFFREY dexamethasone (Decadron) injection 4 mg 4 mg Intravenous q6h NipAnaya aguilar, GEODESY TEACHER 4 mg at 211 heparin (porcine) injection 7,500 Units 7,500 Units Subcutaneous q8h Nipjeff, Anaya Curtis, GEODESY TEACHER 7,500 Units at 02/25/25 0839 hydrALAZINE (Apresoline) [...] any questions or concerns. Anaya Felton DNP, GEODESY TEACHER Advanced Practice Provider Department of Neurosurgery [facility] * Progress Notes - Jose Elias Marshall, [...] sodium trend Risk: - Foreign Marshall, PGY-2 [facility] - Internal Medicine Epic Chat preferred; Pager [phone] Cosigned by Ede Ruiz MD at 03/04/2025 [...] Outcome: Ongoing, Progressing 02/25/2025 1045 by Sherin Bnyum RN Outcome: Ongoing, Progressing 02/25/2025 1036 by [...] 02/25/2025 10:08 AM EDT Pastoral Care Note Base Filler consulted with care team, and provided emotional and spiritual support the patient and trghters, they asked media senior recruiter to pray for them. Referral From: Nurse Pastoral Care Provided For: Patient, Child(stefania) Patient Profile: Consult Reasons: Emotional support, Prayer, Non-urgent referral Spiritual Assessment: Support Systems/ Spiritual Resources: Prayer, Nettie Spiritual Needs: Emotional support, Prayer, Spiritual support Interventions: Interventions Provided: Emotional support, Spiritual support, Prayer, Consulted with care team, Introduced Patient/Family to Base Filler Services, Affirm acceptance and gratitude Pastoral Care Outcomes: Patient Outcomes: Expresses acceptance, Is knowledgeable about Generation Technician Services, Appreciative ofChaplain Support, Gratitude Cosigned by Niki Crow at 02/25/2025 11:27 AM EDT Associated attestation - Niki Crow - 02/25/2025 11:27 AM EDT This is to attest media senior recruiter product management internship chart note has been reviewed and okayed. [...] Attending Surgeon(s): * Sanchez Zaldivar - Primary Set Up Mechanic Coil Winding Machines(s): * John Bhat MD - Resident - [...] procedure, the patient was taken out of [place] head pins, awakened, extubated, and moved to [...] care and recovery * Progress Notes - Ccua Campoverde MD - 02/24/2025 10:36 AM EDT [...] 650 mg Oral q6h PRN Anaya Felton, GEODESY TEACHER bisacodyl (Dulcolax) suppository 10 mg 10 mg Rectal Daily PRN NipAnaya aguilar, GEODESY TEACHER dexamethasone (Decadron) injection 4 mg 4 mg Intravenous q6h Nipper, Anaya Curtis, GEODESY TEACHER 4 mg at [Held by provider] heparin (porcine) injection 7,500 Units 7,500 Units Subcutaneous q8h Nipjeff, Anaya Curtis, GEODESY TEACHER 7,500 Units at 02/23/25 1611 hydrALAZINE (Apresoline) [...] mg 1,000 mg Oral BID NipAnaya aguilar, GEODESY TEACHER 1,000 mg at 840 lisinopril tablet 20 mg 20 mg Oral BID NipAnaya aguilar, GEODESY TEACHER 20 mg at 02/24/25 0840 nebivolol (Bystolic) [...] any questions or concerns. Anaya Felton DNP, GEODESY TEACHER Advanced Practice Provider Department of Neurosurgery [facility] * Progress Notes - Guy Virk - 02/23/2025 9:49 AM EDT SW met with NS Team to discuss pt POC. Per team, pt to OR tomorrow. No CM needs identified at this time, SW remains available to follow/assist. Guy Virk LCSW * Consults - Ember Winchester RD - 02/23/2025 9:44 AM EDT Adult Nutrition Evaluation Note Wali Murrell 64 y.o. female CSN: [id number] Room/Bed 125/125A Nutrition evaluation type: assessment Reason for evaluation: [facility] Hospital course: 64 yo F presenting [...] (97.4 ??F) Oxygen Therapy: None (Room air) [place] Coma Scale Score: 15 [place] Scale Score: [...] Weight Evaluation: Extreme Obesity (BMI > 40) [place] Body Weight (kg): 59.1 Percent [place] Body Weight: 199 Adjusted Body Weight (kg): 73.75 Estimated Needs: Metabolic Cart Study Results: Current Nutrition Intake: Diet Supplements: None Diet Order: Adult Diet Diet Texture: Regular Adult Fluid Restriction / 24 hr: 1000 ml fluid Percent Meals Eaten (%): 75-100% Diet Experience and Nutrition History: Diet Education Provided: Will monitor Pertinent home medications: Yarsanism needs: Nutrition Focused Physical Exam: Physical exam [...] mg, Oral, q6h PRN, Nipper, Anaya M, GEODESY TEACHER bisacodyl (Dulcolax) suppository 10 mg, 10 mg, Rectal, Daily PRN, Nipper, Anaya M, GEODESY TEACHER dexamethasone (Decadron) injection 4 mg, 4 mg, Intravenous, q6h, Nipper, Anaya M, GEODESY TEACHER, 4 mg at 02/23/25 0514 heparin (porcine) injection 7,500 Units, 7,500 Units, Subcutaneous, q8h, Nipper, Anaya M, GEODESY TEACHER, 7,500 Units at 02/23/25 0032 hydrALAZINE (Apresoline) [...] tablet 1,000 mg, 1,000 mg, Oral, BID, [facility], Anaya M, GEODESY TEACHER, 1,000 mg at 02/23/25 0833 lisinopril tablet 20 mg, 20 mg, Oral, BID, [facility], Anaya M, GEODESY TEACHER, 20 mg at 02/23/25 0833 nebivolol (Bystolic) [...] g, 17 g, Oral, BID, Anaya Felton, GEODESY TEACHER, 17 g at 900 senna-docusate (Maggy-Colace) 8.6-50 MG per tablet 2 tablet, 2 tablet, Oral, BID, Anaya Felton, GEODESY TEACHER, 2 tablet at 02/21/252054 sertraline (Zoloft) tablet [...] & fluid restriction: 1000 mL; NPO at [place]. Code status: Full Code Thank you for [...] any questions or concerns. Anaya Felton DNP, GEODESY TEACHER Advanced Practice Provider Department of Neurosurgery [facility] * Significant Event - Dov Mccurdy MD [...] VSS * Assessment & Plan Note - Kathraine Oreilly MD - 02/22/2025 11:46 AM EDT [...] 0-3 Units Subcutaneous Twice at night Anaya Felotn APRN labetalol (Normodyne,Trandate) injection 10 mg 10 [...] MD Resident Physician, PGY-2 Department of Neurosurgery [facility] Cosigned by Israel Guillen MD at 02/23/2025 [...] inpatient * Assessment & Plan Note - Ranjaan Yu MD - 02/21/2025 7:59 AM EDT [...] mg 4 mg Intravenous q6h Anaya Felton GEODESY TEACHER 4 mg at 147 glucose (Glutose) 40 [...] MD Resident Physician, PGY-2 Department of Neurosurgery [facility] Cosigned by Israel Guillen MD at 02/23/2025 [...] mg 4 mg Intravenous q6h NipAnaya aguilar GEODESY TEACHER 4 mg at glucose (Glutose) 40 % [...] mg 20 mg Oral BID Anaya Felton GEODESY TEACHER 20 mg at 02/20/25815 nebivolol (Bystolic) tablet [...] g 17 g Oral BID Anaya Felton GEODESY TEACHER 17 g at 02/19/252039 senna-docusate (Maggy-Colace) 8.6-50 MG per tablet 2 tablet 2 tablet Oral BID Anaya Felton GEODESY TEACHER 2 tablet at 02/19/252039 sertraline (Zoloft) tablet [...] any questions or concerns. Anaya Felton DNP, GEODESY TEACHER Advanced Practice Provider Department of Neurosurgery [facility] * Progress Notes - Saige Alvarez - [...] and evaluated the patient with the medical/MUSIC INTERN/PA student. I discussed the case with the medical/MUSIC INTERN/PA student and agree with the findings and [...] Note Wali Godfreyaac 64 y.o. female CSN: [id number] Admission: 02/16/2025 3:08 PM Primary Problem: Brain tumor (benign) (CMS/HCC) Electric Shovel Operator reviewed chart and spoke with patient and daughter at bedside to complete this InitialCase Management Assessment. PCP: Caroline Shultz APRN Emergency Contact: No emergency contact information on file. Insurance: Primary Visit Coverage Payer Plan Sponsor Code Group Number Group Name MEDICARE MEDICARE PART A ONLY Primary Visit Coverage Subscriber Subscriber ID Subscriber Name Subscriber N Subscriber Address [id number] WALI MURRELL [id number] [place] [address] Secondary Visit Coverage Payer Plan Sponsor Code Group Number Group Name [facility] [id number] Secondary Visit Coverage Subscriber Subscriber ID Subscriber Name Subscriber SSN Subscriber Address [id number] WALI MURRELL [id number] [place] [address] Patient information: Primary Caregiver: Self Support System: Immediate family Daily Living Activities: Functional Status: Independent Living Arrangements: Alone Type of Residence: Private residence [address] [place], [place] [id number] Current DME: Equipment Currently Used at Home: [...] Dialysis Services: None Living Will/Advance Directive/Power of Java Swing Developer /Guardian: Have you reviewed your Advance Directive and is it valid for this stay?: Yes Advance Directive: Patient would not like information Information Provided on Healthcare Directives: Yes Pre-existing DNR/DNI Order: No Patient Requests Assistance: Yes, referral made to case mgr Additional Comments: Provided introduction and information on [...] Nabeel Beckett RN * Consults - Anaya Hdze MD - 02/19/2025 10:53 AM EDTAssociated Order(s): [...] mg 4 mg Intravenous q6h Anaya Felton GEODESY TEACHER 4 mg at heparin (porcine) injection 7,500 Units 7,500 Units Subcutaneous q8h Anaya Felton GEODESY TEACHER 7,500 Units at 02/19/25 0813 hydrALAZINE (Apresoline) [...] g 12.5-25 g Intravenous q15 min PRN BannerAnaya APRN Or glucagon (human recombinant) injection 1 mg 1 mg Intramuscular q15 min PRN Anaya Felton APRN heparin (porcine) injection 7,500 Units 7,500 Units Subcutaneous q8h Banner[facility]ah JEFFREY Curtis 7,500 Units at 02/19/25 08 [...] tablet 20 mg 20 mg Oral BID BannerAnaya APRN 20 mg at 02/19/25811 nebivolol (Bystolic) [...] any questions or concerns. Anaya Felton DNP, GEODESY TEACHER Advanced Practice Provider Department of Neurosurgery [facility] * Assessment & Plan Note - Anaya [...] BID Anaya Felton APRN 1,000 mg at [id number] magnesium oxide (Mag-Ox) tablet 400 mg 400 [...] JEFFREY Advanced Practice Provider Department of Neurosurgery [facility] * Care Plan - Sharmila Biggs RN [...] Please call with any questions or concerns. [phone] Ranjana Yu MD Resident Physician, PGY-2 Department of Neurosurgery [facility] Cosigned by Ned Menendez MD at 02/18/2025 10:45 AM EDT Associated attestation - Ned Menendez MD - 02/18/2025 10:45 AM EDT I saw and evaluated the patient with the resident/fellow. I discussed the case with the resident/fellow and agree with the findings and plan as documented. * Consults - Michael aJin - 02/16/2025 6:32 PM EDTAssociated Order(s): IP [...] Resident Physician, PGY-2 Department of neurosurgery Pager: [phone] [1] Current Facility-Administered Medications Medication Dose Route [...] 1 (one) time each day. fish oil ([place]-3) 500 MG capsule Take 2,400 mg by [...] Jackie Marin MD Director of Pediatric Neurosurgery Sales Support Technician of Neurosurgery Sales Support Technician of Pediatrics * ED Provider Notes - [...] normal. Affect is tearful. Behavior: Behavior normal. [place] Coma Scale Score: 15 ED Course & [...] PM EDT Appointment [facility] Radiation [address] [facility] [place] [address] Miguel Perez MD [address] [place] [id number] 03/23/2025 1:45 PM EDT Clinical Support [facility] [address] [place] [address] 03/23/2025 2:00 PM EDT Office Visit Pav [facility] [address] [facility] [place] [address] Chente Sebastian MD [address] [facility] [address] [place] [address] Scheduled Referrals Name Type Priority Associated Diagnoses [...] was not included. Electroencephalogram Report Patient: Wali Murerll : 1960 SEX: female Referring Provider: Anaya [...] 650 mg Oral q6h PRN Anaya Felton M, GEODESY TEACHER bacitracin (1g packet) ointment 1 packet 1 packet Topical BID Anaya Felton, GEODESY TEACHER 1 packet at 02/27/25 0839 bisacodyl (Dulcolax) suppository 10 mg 10 mg Rectal Daily PRN NipAnaya aguilar M, GEODESY TEACHER cyclobenzaprine (Flexeril) tablet 5 mg 5 mg Oral TID John Bhat MD 5 mg at 02/27/25 0839 cyclobenzaprine (Flexeril) tablet 5 mg 5 mg Oral TID PRN Anaya Felton, GEODESY TEACHER 5 mg at 02/26/25 1325 dexamethasone (Decadron) tablet 4 mg 4 mg Oral 4x daily Hakan Jainus A 4 mg at 02/27/25 0839 Followed [...] injection 7,500 Units 7,500 Units Subcutaneous q8h NipAnaya aguilar, GEODESY TEACHER 7,500 Units at 02/27/25 0839 hydrALAZINE (Apresoline) [...] mL Intravenous PRN Katharine Oreilly MD us Anaay Felton GEODESY TEACHER NEUROLOGY ORDERABLES Final R esult * (ABNORMAL) Basic metabolic panel (02/27/2025 8:59 AM EDT) Glucose, Plasma 95 74 - 99 mg/dL 02/27/2025 9:40 AM EDT [facility] BUN, Plasma 21 8 - 23 mg/dL 02/27/2025 9:40 AM EDT [facility] Creatinine, Plasma 0.64 0.60 - 1.10 mg/dL 02/27/2025 9:40 AM EDT [facility] BUN/Creatinine Ratio 33 02/27/2025 9:40 AM EDT [facility] Sodium, Plasma 132(L) 136 - 145 mmol/L 02/27/2025 9:40 AM EDT [facility] Potassium, Plasma 4.2 3.6 - 4.9 mmol/L 02/27/2025 9:40 AM EDT [facility] Chloride, Plasma 97 97 - 107 mmol/L 02/27/2025 9:40 AM EDT [facility] CO2, Plasma 23 22 - 29 mmol/L 02/27/2025 9:40 AM EDT [facility] Anion Gap 12 6 - 16 mmol/L 02/27/2025 9:40 AM EDT [facility] Total Calcium, Plasma 9.2 8.9 - 10.2 mg/dL 02/27/2025 9:40 AM EDT [facility] eGFRcr 97.6 mL/min/1.7 3m*2 02/27/2025 9:40 AM EDT [facility] Comment:Reported eGFRcr in m L/min/1.73m2 is based the CKD-EPI 2020 equation that does not use a race coefficient. Blood Venous blood specimen / Unknown Venipuncture / Unknown 02/27/2025 8:59 AM EDT 02/27/2025 9:08 AM EDT Ede Ruiz MD LAB BLOOD ORDERABLES Final R esult Performing Organization Address City/[facility]/ZIP Co de Phone Number [facility] [address] [place] [address] * Troponin T, High Sensitivity, 2 Hour, Plasma (02/26/2025 11:08 AM EDT) Troponin T, High Sensitivity, 2 Hour 8 <14 ng/L 02/26/2025 11:43 AM EDT [facility] Blood Venous blood specimen / Unknown Venipuncture / Unknown 02/26/2025 11:08 AM EDT 02/26/2025 11:15 AM EDT Ned Menendez MD LAB BLOOD ORDERABLES Final Res ult Performing Organization Address [facility] Co de Phone Number [facility] [address] [place] [address] * ECG Adult (02/26/2025 9:51 AM EDT) EKG DIAGNOSIS CLASS Normal MUSE ECG Ventricular Rate 73 BPM MUSE ECG Atrial Rate 73 BPM MUSE ECG MO Interval 176 ms MUSE ECG QRSD Interval 80 ms MUSE ECG QT Interval 380 ms MUSE ECG QTC Interval 418 ms MUSE ECG P [place] 9 degrees MUSE ECG R [place] 0 degrees MUSE ECG T Wave [place] 27 degrees MUSE ECG Diagnosis Normal sinus rhythm MUSE ECG Diagnosis MUSE ECG Diagnosis MUSE ECG Diagnosis Confirmed by Tasneem Ludwig ([id number]) on 02/27/2025 10:30:15 AM MUSE ECG 02/26/2025 9:51 AM EDT 02/27/2025 10:30 AM EDT Ned Menendez MD ECG ORDERABLES Final Result Performing Organization Address [facility] Co de Phone Number MUSE ECG * Troponin T, High Sensitivity, 0 Hour Plasma, Reflex to 2 Hour (02/26/2025 8:26 AM EDT) Troponin T, High Sensitivity, 0 Hour 11 <14 ng/L 02/26/2025 9:08 AM EDT [facility] Blood Venous blood specimen / Unknown Venipuncture / Unknown 02/26/2025 8:26 AM EDT 02/26/2025 8:38 AM EDT Result [facility] Ned Menendez MD LAB BLOOD ORDERABLES Final Res ult Performing Organization Address City/[facility]/ZIP Co de Phone Number [facility] [address] [place] [address] * Protime-INR (02/26/2025 8:26 AM EDT) Prothrombin Time 13.4 12.0 - 14.3 sec LAB COAGULATION METHOD 02/26/2025 9:01 AM EDT [facility] INR 1.0 0.9 - 1.1 LAB COAGULATION METHOD 02/26/2025 9:01 AM EDT [facility] Blood Venous blood specimen / Unknown Venipuncture / Unknown 02/26/2025 8:26 AM EDT 02/26/2025 8:38 AM EDT Narrative [facility] - 02/26/2025 9:01 AM EDT OPTIMAL INR RANGES FOR PATIENT ON ORAL ANTICOAGULANT THERAPY Prevention of venous thromboembolism INR 2.0 to 3.0 In patients with heart disease: Atrial fibrillation INR 2.0 to 3.0 Valvular heart disease INR 2.0 to 3.0 Tissue heart valves INR 2.0 to 3.0 Mechanical prosthetic valves INR 2.5 to 3.5 Prevention of recurrent MN INR 2.5 to 3.5 Ned Menendez MD LAB BLOOD ORDERABLES Final Res ult [facility] [address] [place] [address] * APTT (02/26/2025 8:26 AM EDT) aPTT 28 25 - 35 sec LAB COAGULATION METHOD 02/26/2025 9:01 AM EDT [facility] Blood Venous blood specimen / Unknown Venipuncture / Unknown 02/26/2025 8:26 AM EDT 02/26/2025 8:38 AM EDT us Ned Menendez MD LAB BLOOD ORDERABLES Final Res ult [facility] [address] [place] [address] * (ABNORMAL) CBC and differential (02/26/2025 8:26 AM EDT) WBC Count 14.93(H) 3.70 - 10.30 10*3/uL LAB HEMATOLOGY METHOD 02/26/2025 8:45 AM EDT [facility] RBC Count 4.36 3.90 - 5.20 10*6/uL LAB HEMATOLOGY METHOD 02/26/2025 8:45 AM EDT [facility] HGB 12.3 11.2 - 15.7 g/dL LAB HEMATOLOGY METHOD 02/26/2025 8:45 AM EDT [facility] HCT 36.1 34.0 - 45.0 % LAB HEMATOLOGY METHOD 02/26/2025 8:45 AM EDT [facility] Platelet Count 349 155 - 369 10*3/uL LAB HEMATOLOGY METHOD 02/26/2025 8:45 AM EDT [facility] MCV 83 79 - 98 fL LAB HEMATOLOGY METHOD 02/26/2025 8:45 AM EDT [facility] MCH 28.2 26.0 - 32.0 pg LAB HEMATOLOGY METHOD 02/26/2025 8:45 AM EDT [facility] MCHC 34.1 30.7 - 35.5 g/dL LAB HEMATOLOGY METHOD 02/26/2025 8:45 AM EDT [facility] RDW 13.1 11.5 - 14.5 % LAB HEMATOLOGY METHOD 02/26/2025 8:45 AM EDT [facility] MPV 9.2 8.8 - 12.5 fL LAB HEMATOLOGY METHOD 02/26/2025 8:45 AM EDT [facility] nRBC 0.0 <=0.0 per 100 WBCs LAB HEMATOLOGY METHOD 02/26/2025 8:45 AM EDT [facility] Differential Type Automated LAB HEMATOLOGY METHOD 02/26/2025 8:45 AM EDT [facility] Neutrophils % 80 % LAB HEMATOLOGY METHOD 02/26/2025 8:45 AM EDT [facility] Lymphocytes % 9 % LAB HEMATOLOGY METHOD 02/26/2025 8:45 AM EDT [facility] Monocytes % 10 % LAB HEMATOLOGY METHOD 02/26/2025 8:45 AM EDT [facility] Eosinophils % 0 % LAB HEMATOLOGY METHOD 02/26/2025 8:45 AM EDT [facility] Basophils % 0 % LAB HEMATOLOGY METHOD 02/26/2025 8:45 AM EDT [facility] Immature Granulocytes % 1 % LAB HEMATOLOGY METHOD 02/26/2025 8:45 AM EDT [facility] Neutrophils Absolute 11.91(H) 1.60 - 6.10 10*3/uL LAB HEMATOLOGY METHOD 02/26/2025 8:45 AM EDT [facility] Lymphocytes Absolute 1.41 1.20 - 3.90 10*3/uL LAB HEMATOLOGY METHOD 02/26/2025 8:45 AM EDT [facility] Monocytes Absolute 1.43(H) 0.30 - 0.90 10*3/uL LAB HEMATOLOGY METHOD 02/26/2025 8:45 AM EDT [facility] Eosinophils Absolute 0.00 0.00 - 0.50 10*3/uL LAB HEMATOLOGY METHOD 02/26/2025 8:45 AM EDT [facility] Basophils Absolute 0.02 0.00 - 0.10 10*3/uL LAB HEMATOLOGY METHOD 02/26/2025 8:45 AM EDT [facility] Immature Granulocytes Absolute 0.16(H) 0.00 - 0.06 10*3/uL LAB HEMATOLOGY METHOD 02/26/2025 8:45 AM EDT [facility] Blood Venous blood specimen / Unknown Venipuncture / Unknown 02/26/2025 8:26 AM EDT 02/26/2025 8:38 AM EDT [facility] - 02/26/2025 8:45 AM EDT Therapeutic decision making should be based on absolute values, rather than percentages. us Ned Menendez MD LAB BLOOD ORDERABLES Final Res ult [facility] [address] [place] [address] * (ABNORMAL) Basic metabolic panel (02/26/2025 8:26 AM EDT) Glucose, Plasma 128(H) 74 - 99 mg/dL 02/26/2025 9:08 AM EDT [facility] BUN, Plasma 16 8 - 23 mg/dL 02/26/2025 9:08 AM EDT [facility] Creatinine, Plasma 0.61 0.60 - 1.10 mg/dL 02/26/2025 9:08 AM EDT [facility] BUN/Creatinine Ratio 02/26/2025 9:08 AM EDT [facility] Sodium, Plasma 128(L) 136 - 145 mmol/L 02/26/2025 9:08 AM EDT [facility] Potassium, Plasma 4.5 3.6 - 4.9 mmol/L 02/26/2025 9:08 AM EDT [facility] Chloride, Plasma 94(L) 97 - 107 mmol/L 02/26/2025 9:08 AM EDT [facility] CO2, Plasma 22 22 - 29 mmol/L 02/26/2025 9:08 AM EDT [facility] Anion Gap 12 6 - 16 mmol/L 02/26/2025 9:08 AM EDT [facility] Total Calcium, Plasma 9.1 8.9 - 10.2 mg/dL 02/26/2025 9:08 AM EDT [facility] eGFRcr 98.7 mL/min/1.7 3m*2 02/26/2025 9:08 AM EDT [facility] Comment:Reported eGFRcr in m L/min/1.73m2 is based the CKD-EPI 2020 equation that does not use a race coefficient. Blood Venous blood specimen / Unknown Venipuncture / Unknown 02/26/2025 8:26 AM EDT 02/26/2025 8:38 AM EDT us Ned Menendez MD LAB BLOOD ORDERABLES Final Res ult [facility] [address] [place] [address] * (ABNORMAL) POCT glucose meter (02/26/2025 8:18 [...] Comment 02/26/2025 8:21 AM EDT [facility] Special Events Driver ID Sherin Bynum 02/26/2025 8:21 AM EDT [facility] Device ID [id number] 02/26/2025 8:21 AM EDT [facility] Specimen Type POC Capillary 02/26/2025 8:21 AM EDT [facility] Blood Capillary blood specimen / Unknown 02/26/2025 8:18 AM EDT 02/26/2025 8:21 AM EDT Ned Menendez MD LAB POINT OF CARE TE ST DOCKED DEVICE UNSOLICITED RESULTS Final Result Performing Organization Address City/State/[facility] Co de Phone Number [facility] [address] [place] [address] * CT Angio Neck (02/26/2025 8:10 AM [...] 02/26/2025 8:35 AM Final report signed by Jreemias Yanez MD on 02/26/2025 8:59 AM Narrative [...] Total DLP (Dose-Length Product): 953.08 mGy.cm (accession [id number]), 953.08 mGy.cm (accession [id number]). Please note: The reported value represents the [...] no aneurysm of either internal carotid artery. [place] and Major Peripheral Branches: There [...] Total DLP (Dose-Length Product): 953.08 mGy.cm (accession [id number]),953.08 mGy.cm (accession [id number]). Please note: The reported valuerepresents the total [...] segment and mild stenoses in the left [id number]. There is no definite evidence of a [...] no aneurysm of either internal carotid artery. [place] and Major Peripheral Branches: There [...] systems. Redemonstration of moderate stenoses in right [id number]. Redemonstration of mild irregularity/undulating contour of the [...] MD on 02/26/2025 8:59 AM Anaya Felton [employer]OD[employer] TE[employer] IMG CT PROCEDURES Final Resu lt * CT Angio Head (02/26/2025 8:10 AM EDT) Anatomical Region Laterality Modality [place] Computed Tomogr aphy Impressions 02/26/2025 [...] Total DLP (Dose-Length Product): 953.08 mGy.cm (accession [id number]), 953.08 mGy.cm (accession [id number]). Please note: The reported value represents the [...] no aneurysm of either internal carotid artery. [place] and Major Peripheral Branches: There [...] Total DLP (Dose-Length Product): 953.08 mGy.cm (accession [id number]),953.08 mGy.cm (accession [id number]). Please note: The reported valuerepresents the total [...] segment and mild stenoses in the left [id number]. There is no definite evidence of a [...] no aneurysm of either internal carotid artery. [place] and Major Peripheral Branches: There [...] systems. Redemonstration of moderate stenoses in right [id number]. Redemonstration of mild irregularity/undulating contour of the [...] on 02/26/2025 8:59 AM us Anaya Felton [employer] IMG CT PROCEDURES Final Resu lt * [...] - 4.5 mg/dL 02/26/2025 4:57 AM EDT [facility] Blood Venous blood specimen / Unknown Venipuncture / Unknown 02/26/2025 4:23 AM EDT 02/26/2025 4:29 AM EDT Anayanatalie Felton [employer] LAB BLOOD ORDERABLES Final R esult Performing Organization Address City/[facility]/ZIP [place] [address] * Magnesium, Plasma (02/26/2025 4:23 AM EDT) Magnesium, Plasma 2.0 1.9 - 2.4 mg/dL 02/26/2025 4:57 AM EDT [facility] Blood Venous blood specimen / Unknown Venipuncture / Unknown 02/26/2025 4:23 AM EDT 02/26/2025 4:29 AM EDT Anaya Ever Felton [employer] LAB BLOOD ORDERABLES Final R esult Performing Organization Address City/[facility]/ZIP Co de Phone Number [facility] [address] [place] [address] * (ABNORMAL) Basic Metabolic Panel, Plasma (02/26/2025 4:23 AM EDT) Glucose, Plasma 133(H) 74 - 99 mg/dL 02/26/2025 4:57 AM EDT [facility] BUN, Plasma 17 8 - 23 mg/dL 02/26/2025 4:57 AM EDT [facility] Creatinine, Plasma 0.64 0.60 - 1.10 mg/dL 02/26/2025 4:57 AM EDT [facility] BUN/Creatinine Ratio 27 02/26/2025 4:57 AM EDT [facility] Sodium, Plasma 129(L) 136 - 145 mmol/L 02/26/2025 4:57 AM EDT [facility] Potassium, Plasma 4.5 3.6 - 4.9 mmol/L 02/26/2025 4:57 AM EDT [facility] Chloride, Plasma 97 97 - 107 mmol/L 02/26/2025 4:57 AM EDT [facility] CO2, Plasma 24 22 - 29 mmol/L 02/26/2025 4:57 AM EDT [facility] Anion Gap 8 6 - 16 mmol/L 02/26/2025 4:57 AM EDT [facility] Total Calcium, Plasma 9.2 8.9 - 10.2 mg/dL 02/26/2025 4:57 AM EDT [facility] eGFRcr 97.6 mL/min/1.7 3m*2 02/26/2025 4:57 AM EDT [facility] Comment:Reported eGFRcr in m L/min/1.73m2 is based the CKD-EPI 2020 equation that does not use a race coefficient. Blood Venous blood specimen / Unknown Venipuncture / Unknown 02/26/2025 4:23 AM EDT 02/26/2025 4:29 AM EDT us Anaya Felton [employer] LAB BLOOD ORDERABLES Final R esult [facility] [address] [place] [address] * (ABNORMAL) CBC W/O Differential (02/26/2025 4:23 AM EDT) WBC Count 15.84(H) 3.70 - 10.30 10*3/uL LAB HEMATOLOGY METHOD 02/26/2025 4:44 AM EDT [facility] RBC Count 4.27 3.90 - 5.20 10*6/uL LAB HEMATOLOGY METHOD 02/26/2025 4:44 AM EDT [facility] HGB 12.1 11.2 - 15.7 g/dL LAB HEMATOLOGY METHOD 02/26/2025 4:44 AM EDT [facility] HCT 35.8 34.0 - 45.0 % LAB HEMATOLOGY METHOD 02/26/2025 4:44 AM EDT [facility] Platelet Count 332 155 - 369 10*3/uL LAB HEMATOLOGY METHOD 02/26/2025 4:44 AM EDT [facility] MCV 84 79 - 98 fL LAB HEMATOLOGY METHOD 02/26/2025 4:44 AM EDT [facility] MCH 28.3 26.0 - 32.0 pg LAB HEMATOLOGY METHOD 02/26/2025 4:44 AM EDT [facility] MCHC 33.8 30.7 - 35.5 g/dL LAB HEMATOLOGY METHOD 02/26/2025 4:44 AM EDT [facility] RDW 13.2 11.5 - 14.5 % LAB HEMATOLOGY METHOD 02/26/2025 4:44 AM EDT [facility] MPV 9.1 8.8 - 12.5 fL LAB HEMATOLOGY METHOD 02/26/2025 4:44 AM EDT [facility] nRBC 0.0 <=0.0 per 100 WBCs LAB HEMATOLOGY METHOD 02/26/2025 4:44 AM EDT [facility] Blood Venous blood specimen / Unknown Venipuncture / Unknown 02/26/2025 4:23 AM EDT 02/26/2025 4:29 AM EDT us Anaya Felton [employer] LAB BLOOD ORDERABLES Final R esult [facility] [address] [place] [address] * (ABNORMAL) Basic metabolic panel (02/25/2025 12:14 PM EDT) [facility] Glucose, Plasma 137(H) 74 - 99 mg/dL 02/25/2025 12:50 PM EDT [facility] BUN, Plasma 21 8 - 23 mg/dL 02/25/2025 12:50 PM EDT [facility] Creatinine, Plasma 0.62 0.60 - 1.10 mg/dL 02/25/2025 12:50 PM EDT [facility] BUN/Creatinine Ratio 34 02/25/2025 12:50 PM EDT [facility] Sodium, Plasma 129(L) 136 - 145 mmol/L 02/25/2025 12:50 PM EDT [facility] Potassium, Plasma 4.5 3.6 - 4.9 mmol/L 02/25/2025 12:50 PM EDT [facility] Chloride, Plasma 97 97 - 107 mmol/L 02/25/2025 12:50 PM EDT [facility] CO2, Plasma 22 22 - 29 mmol/L 02/25/2025 12:50 PM EDT [facility] Anion Gap 10 6 - 16 mmol/L 02/25/2025 12:50 PM EDT [facility] Total Calcium, Plasma 9.3 8.9 - 10.2 mg/dL 02/25/2025 12:50 PM EDT [facility] eGFRcr 98.4 mL/min/1.7 3m*2 02/25/2025 12:50 PM EDT [facility] Comment:Reported eGFRcr in m L/min/1.73m2 is based the CKD-EPI 2020 equation that does not use a race coefficient. Blood Venous blood specimen / Unknown Venipuncture / Unknown 02/25/2025 12:14 PM EDT 02/25/2025 12:19 PM EDT us Ede Ruiz MD LAB BLOOD ORDERABLES Final R esult [facility] [address] [place] [address] * MR Head w and wo IV [...] Narrative 02/25/2025 10:08 AM EDT CLINICAL INDICATION: Brain/INTEGRITY DIRECTOR neoplasm, assess treatment response. Postoperative from craniectomy [...] Marcus Elias MD - 02/25/2025 CLINICAL INDICATION: Brain/INTEGRITY DIRECTOR neoplasm, assess treatment response. Postoperative fromcraniectomy for [...] - 99 mg/dL 02/25/2025 12:10 AM EDT [facility] Comment:Accuracy of a glucos e result [...] for testing. Comment 02/25/2025 12:10 AM EDT [facility] Special Events Driver ID Edwige Valdez 02/26/20 25 12:10 AM EDT [facility] Device ID [id number] 02/25/2025 12:10 AM EDT [facility] Specimen Type POC Capillary 02/25/2025 12:10 AM EDT [facility] Blood Capillary blood specimen / Unknown 02/25/2025 12:08 AM EDT 02/25/2025 12:10 AM EDT Ned Menendez MD LAB POINT OF CARE TE ST DOCKED DEVICE UNSOLICITED RESULTS Final Result [facility] [address] [place] [address] * FISH, Paraffin 1p/19Q (02/24/2025 9:04 PM EDT) Specimen Adequacy Adequate 03/11/2025 1:32 PM EDT [facility] Clinical Indication 03/11/2025 1:32 PM EDT [facility] Comment: Pre-op diagnosis: Brain mass [G93.89] Interpretation Tissue type: Brain Pathology Case #: [id number] Block A3 FISH studies are NEGATIVE for [...] without polysomy (Aleksandra CL Neurosurg Focus 2005;19(5):E2;Demetris ni C et al. Brain Pathol 2008;18:360-9; Krishna ANDRES et al. JNEN 2003;62(1):1118.). 03/11/2025 1:32 PM EDT [facility] ISCN nuc yesenia(MEGF6,TP73)x1~4, (ABL2,ANGPTL1)x1~4[6 0]/(MAN2B1,ZNF44)x1~ [...] At least 60 cells were analyzed, and loan servicing representative images were captured and stored using eyesFinder software (Grid2020.). Cutoff ratios are <0.75 for both probe pairs, with relative deletion seen in at least 20% of tumor cells. Results are reported as the ratio of total 1p to 1q signals and 19q to 19p signals. A ratio between 0.75 and 1.2 is considered normal and <0.75 is considered deletion for 1p or 19q. 03/11/2025 1:32 PM EDT [facility] REFERENCES Adrienne JAMISON et al. Clin Oncol 2015;17(8):445. Van den Sana MJ et al., Neuro-Oncology 2017;19(5):614. 03/11/2025 1:32 PM EDT [facility] Disclaimer This test was developed and its performance characteristics determined by the [facility]. It has not been [...] specimen and probe. 03/11/2025 1:32 PM EDT [facility] Pathologist Signature Reviewed by: Paulo Peraza 03/11/2025 1:32 PM EDT [facility] Tissue 02/24/2025 9:04 PM EDT 03/05/2025 10:58 AM EDT us Sanchez Zaldivar MD LAB CYTOGENETICS ORDERABLES [place] [address] * Surgical Pathology Exam (02/24/2025 9:04 PM EDT) Case Report Surgical Pathology Case: [id number] Authorizing Provider: Sanchez Zaldivar MD Collected: 02/24/20252103 Ordering Location: [facility] A OPERATING ROOM Received: 02/25/2025 0889 Pathologist: Kayla Costello MD Specimens: A) - Brain, brain tumor sonopet contents B) - Other (specify site), tumor in saline 03/02/2025 3:45 PM EDT [facility] Final Diagnosis A; B Brain, Sonopet contents amd resection: - Oligodendroglioma NOS, 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 appearance is most consistent with primary brain neoplasm such as glioblastoma or other high-grade glioma. 03/02/2025 3:45 PM EDT [facility] Microscopic Description IHC: A2-2 IDH-1 negatve (wild type) A3-5 ATRX positive (wild type) All controls show appropriate reactivity. All immunohistochemistr y, in situ hybridization, and histochemical tests were developed by and are performed at the [facility], [address] [place] [address]. All tests reported here, except those addressing [...] on decalcified specimens. 03/02/2025 3:45 PM EDT [facility] Gross Description A. BRAIN TUMOR SONOPET CONTENTS Received fresh and placed in formalin labeled brain tumor Sonopet contents are multiple pieces of pink-garcia soft tissue measuring 4.0 x 3.0 x 0.4 cm in aggregate. Entirely submitted in cassettes A1-A3. Cold Time: 11h 20m Rosibel T Stevens B. TUMOR IN SALINE Received fresh and placed in formalin labeled tumor are multiple pieces of pink-garcia soft tissue measuring 2.4 x 2.2 x 0.4 cm in aggregate. Entirely submitted in cassette A1. Cold Time: 9h 02m Rosibel Stevens 03/02/2025 3:45 PM EDT [facility] Note: A resident was involved in the service. I attest I examined the relevant preparations for the specimens and confirmed the diagnosis or interpretation. 03/02/2025 3:45 PM EDT [facility] Tissue Brain structure / Unknown 02/24/2025 9:04 PM EDT 02/25/2025 8:24 AM EDT Comment:Pre-op diagnosis: Brain mass [G93.89] Tissue specimen (specimen) Topography unknown / Unknown 02/24/2025 11:22 PM EDT 02/25/2025 8:24 AM EDT Comment:Pre-op diagnosis: Brain mass [G93.89] Sanchez Zaldivar MD LAB PATHOLOGY ORDERABLES Final Result [facility] [address] [place] [address] * (ABNORMAL) Blood gas, arterial (02/24/2025 7:23 PM EDT) pH, Arterial 7.39 7.31 - 7.42 LAB HEMATOLOGY METHOD 02/24/2025 7:34 PM EDT [facility] pCO2, Arterial 33(L) 35 - 48 mmHg LAB HEMATOLOGY METHOD 02/24/2025 7:34 PM EDT [facility] pO2, Arterial 119 >80 mmHg LAB HEMATOLOGY METHOD 02/24/2025 7:34 PM EDT [facility] SO2, Measured, Arterial 100(H) 94 - 98 % LAB HEMATOLOGY METHOD 02/24/2025 7:34 PM EDT [facility] Base Excess, Arterial -4.3(L) -2.0 - 3.0 mmol/L LAB HEMATOLOGY METHOD 02/24/2025 7:34 PM EDT [facility] Bicarbonate, Calculated, Arterial 20(L) 22 - 26 mmol/L LAB HEMATOLOGY METHOD 02/24/2025 7:34 PM EDT [facility] Hematocrit, Whole Blood 37.4 34.0 - 45.0 % LAB HEMATOLOGY METHOD 02/24/2025 7:34 PM EDT [facility] Sodium, Whole Blood 129(L) 136 - 145 mmol/L LAB HEMATOLOGY METHOD 02/24/2025 7:34 PM EDT [facility] Potassium, Whole Blood 3.6 3.6 - 4.9 mmol/L LAB HEMATOLOGY METHOD 02/24/2025 7:34 PM EDT [facility] Chloride, Whole Blood 99 97 - 107 mmol/L LAB HEMATOLOGY METHOD 02/24/2025 7:34 PM EDT [facility] Glucose, Whole Blood 126(H) 74 - 99 mg/dL LAB HEMATOLOGY METHOD 02/24/2025 7:34 PM EDT [facility] Ionized Calcium, Whole Blood 4.6 4.6 - 5.1 mg/dL LAB HEMATOLOGY METHOD 02/24/2025 7:34 PM EDT [facility] Lactate, Arterial, Whole Blood 1.4 0.5 - 1.6 mmol/L LAB HEMATOLOGY METHOD 02/24/2025 7:34 PM EDT [facility] Blood Arterial blood specimen / Unknown Arterial Line / Unknown 02/24/2025 7:23 PM EDT 02/24/2025 7:33 PM EDT us Alessandro Medina DO LAB BLOOD ORDERABLES Final Res ult [facility] [address] [place] [address] * (ABNORMAL) Basic metabolic panel (02/24/2025 6:42 AM EDT) Glucose, Plasma 126(H) 74 - 99 mg/dL 02/24/2025 7:17 AM EDT [facility] BUN, Plasma 26(H) 8 - 23 mg/dL 02/24/2025 7:17 AM EDT [facility] Creatinine, Plasma 0.63 0.60 - 1.10 mg/dL 02/24/2025 7:17 AM EDT [facility] BUN/Creatinine Ratio 41 02/24/2025 7:17 AM EDT [facility] Sodium, Plasma 131(L) 136 - 145 mmol/L 02/24/2025 7:17 AM EDT [facility] Potassium, Plasma 4.7 3.6 - 4.9 mmol/L 02/24/2025 7:17 AM EDT [facility] Chloride, Plasma 98 97 - 107 mmol/L 02/24/2025 7:17 AM EDT [facility] CO2, Plasma 23 22 - 29 mmol/L 02/24/2025 7:17 AM EDT [facility] Anion Gap 10 6 - 16 mmol/L 02/24/2025 7:17 AM EDT [facility] Total Calcium, Plasma 9.4 8.9 - 10.2 mg/dL 02/24/2025 7:17 AM EDT [facility] eGFRcr 98.0 mL/min/1.7 3m*2 02/24/2025 7:17 AM EDT [facility] Comment:Reported eGFRcr in m L/min/1.73m2 is based the CKD-EPI 2020 equation that does not use a race coefficient. Blood Venous blood specimen / Unknown Venipuncture / Unknown 02/24/2025 6:42 AM EDT 02/24/2025 6:49 AM EDT [facility] [employer] [facility] BLOOD ORDERABLES Final R esult [facility] [address] [place] [address] * (ABNORMAL) Basic metabolic panel (02/24/2025 4:13 AM EDT) Glucose, Plasma 128(H) 74 - 99 mg/dL 02/24/2025 4:51 AM EDT [facility] BUN, Plasma 26(H) 8 - 23 mg/dL 02/24/2025 4:51 AM EDT [facility] Creatinine, Plasma 0.63 0.60 - 1.10 mg/dL 02/24/2025 4:51 AM EDT [facility] BUN/Creatinine Ratio 41 02/24/2025 4:51 AM EDT [facility] Sodium, Plasma 127(L) 136 - 145 mmol/L 02/24/2025 4:51 AM EDT [facility] Potassium, Plasma 4.7 3.6 - 4.9 mmol/L 02/24/2025 4:51 AM EDT [facility] Chloride, Plasma 97 97 - 107 mmol/L 02/24/2025 4:51 AM EDT [facility] CO2, Plasma 21(L) 22 - 29 mmol/L 02/24/2025 4:51 AM EDT [facility] Anion Gap 9 6 - 16 mmol/L 02/24/2025 4:51 AM EDT [facility] Total Calcium, Plasma 9.7 8.9 - 10.2 mg/dL 02/24/2025 4:51 AM EDT [facility] eGFRcr 98.0 mL/min/1.7 3m*2 02/24/2025 4:51 AM EDT [facility] Comment:Reported eGFRcr in m L/min/1.73m2 is based the CKD-EPI 2020 equation that does not use a race coefficient. Blood Venous blood specimen / Unknown Venipuncture / Unknown 02/24/2025 4:13 AM EDT 02/24/2025 4:20 AM EDT Ned Menendez MD LAB BLOOD ORDERABLES Final Res ult [facility] [address] [place] [address] * (ABNORMAL) CBC and Differential (02/23/2025 5:11 PM EDT) WBC Count 11.24(H) 3.70 - 10.30 10*3/uL LAB HEMATOLOGY METHOD 02/23/2025 5:30 PM EDT [facility] RBC Count 4.59 3.90 - 5.20 10*6/uL LAB HEMATOLOGY METHOD 02/23/2025 5:30 PM EDT [facility] HGB 12.8 11.2 - 15.7 g/dL LAB HEMATOLOGY METHOD 02/23/2025 5:30 PM EDT [facility] HCT 38.5 34.0 - 45.0 % LAB HEMATOLOGY METHOD 02/23/2025 5:30 PM EDT [facility] Platelet Count 400(H) 155 - 369 10*3/uL LAB HEMATOLOGY METHOD 02/23/2025 5:30 PM EDT [facility] MCV 84 79 - 98 fL LAB HEMATOLOGY METHOD 02/23/2025 5:30 PM EDT [facility] MCH 27.9 26.0 - 32.0 pg LAB HEMATOLOGY METHOD 02/23/2025 5:30 PM EDT [facility] MCHC 33.2 30.7 - 35.5 g/dL LAB HEMATOLOGY METHOD 02/23/2025 5:30 PM EDT [facility] RDW 13.2 11.5 - 14.5 % LAB HEMATOLOGY METHOD 02/23/2025 5:30 PM EDT [facility] MPV 9.0 8.8 - 12.5 fL LAB HEMATOLOGY METHOD 02/23/2025 5:30 PM EDT [facility] nRBC 0.0 <=0.0 per 100 WBCs LAB HEMATOLOGY METHOD 02/23/2025 5:30 PM EDT [facility] Differential Type Automated LAB HEMATOLOGY METHOD 02/23/2025 5:30 PM EDT [facility] Neutrophils % 77 % LAB HEMATOLOGY METHOD 02/23/2025 5:30 PM EDT [facility] Lymphocytes % 15 % LAB HEMATOLOGY METHOD 02/23/2025 5:30 PM EDT [facility] Monocytes % 7 % LAB HEMATOLOGY METHOD 02/23/2025 5:30 PM EDT [facility] Eosinophils % 0 % LAB HEMATOLOGY METHOD 02/23/2025 5:30 PM EDT [facility] Basophils % 0 % LAB HEMATOLOGY METHOD 02/23/2025 5:30 PM EDT [facility] Immature Granulocytes % 1 % LAB HEMATOLOGY METHOD 02/23/2025 5:30 PM EDT [facility] Neutrophils Absolute 8.58(H) 1.60 - 6.10 10*3/uL LAB HEMATOLOGY METHOD 02/23/2025 5:30 PM EDT [facility] Lymphocytes Absolute 1.73 1.20 - 3.90 10*3/uL LAB HEMATOLOGY METHOD 02/23/2025 5:30 PM EDT [facility] Monocytes Absolute 0.74 0.30 - 0.90 10*3/uL LAB HEMATOLOGY METHOD 02/23/2025 5:30 PM EDT [facility] Eosinophils Absolute 0.04 0.00 - 0.50 10*3/uL LAB HEMATOLOGY METHOD 02/23/2025 5:30 PM EDT [facility] Basophils Absolute 0.02 0.00 - 0.10 10*3/uL LAB HEMATOLOGY METHOD 02/23/2025 5:30 PM EDT [facility] Immature Granulocytes Absolute 0.13(H) 0.00 - 0.06 10*3/uL LAB HEMATOLOGY METHOD 02/23/2025 5:30 PM EDT [facility] Blood Venous blood specimen / Unknown Venipuncture / Unknown 02/23/2025 5:11 PM EDT 02/23/2025 5:24 PM EDT Narrative [facility] - 02/23/2025 5:30 PM EDT Therapeutic decision making should be based on absolute values, rather than percentages. Ned Menendez MD LAB BLOOD ORDERABLES Final Res ult [facility] [address] [place] [address] * (ABNORMAL) Comprehensive Metabolic Panel, Plasma (02/23/2025 5:11 PM EDT) Glucose, Plasma 119(H) 74 - 99 mg/dL 02/23/2025 5:54 PM EDT [facility] BUN, Plasma 20 8 - 23 mg/dL 02/23/2025 5:54 PM EDT [facility] Creatinine, Plasma 0.73 0.60 - 1.10 mg/dL 02/23/2025 5:54 PM EDT [facility] BUN/Creatinine Ratio 27 02/23/2025 5:54 PM EDT [facility] Sodium, Plasma 130(L) 136 - 145 mmol/L 02/23/2025 5:54 PM EDT [facility] Potassium, Plasma 4.4 3.6 - 4.9 mmol/L 02/23/2025 5:54 PM EDT [facility] Chloride, Plasma 96(L) 97 - 107 mmol/L 02/23/2025 5:54 PM EDT [facility] CO2, Plasma 22 22 - 29 mmol/L 02/23/2025 5:54 PM EDT [facility] Anion Gap 12 6 - 16 mmol/L 02/23/2025 5:54 PM EDT [facility] Total Calcium, Plasma 9.6 8.9 - 10.2 mg/dL 02/23/2025 5:54 PM EDT [facility] Total Protein 6.8 6.3 - 7.9 g/dL 02/23/2025 5:54 PM EDT [facility] Albumin, Plasma 4.1 3.5 - 5.2 g/dL 02/23/2025 5:54 PM EDT [facility] AST, Plasma 23 10 - 35 U/L 02/23/2025 5:54 PM EDT [facility] Comment:Hemolyzed, result ma y be falsely increased. ALT, Plasma 25 10 - 35 U/L 02/23/2025 5:54 PM EDT [facility] Alkaline Phosphatase, Plasma 52 46 - 142 U/L 02/23/2025 5:54 PM EDT [facility] Total Bilirubin, Plasma 0.3 0.2 - 1.1 mg/dL 02/23/2025 5:54 PM EDT [facility] eGFRcr 90.8 mL/min/1.7 3m*2 02/23/2025 5:54 PM EDT [facility] Comment:Reported eGFRcr in m L/min/1.73m2 is based the CKD-EPI 2020 equation that does not use a race coefficient. Blood Venous blood specimen / Unknown Venipuncture / Unknown 02/23/2025 5:11 PM EDT 02/23/2025 5:24 PM EDT us Ned Menendez MD LAB BLOOD ORDERABLES Final Res ult [facility] [address] [place] [address] * (ABNORMAL) APTT (02/23/2025 5:11 PM EDT) aPTT 24(L) 25 - 35 sec LAB COAGULATION METHOD 02/23/2025 5:42 PM EDT [facility] Blood Venous blood specimen / Unknown Venipuncture / Unknown 02/23/2025 5:11 PM EDT 02/23/2025 5:24 PM EDT us Ned Menendez MD LAB BLOOD ORDERABLES Final Res ult [facility] [address] [place] [address] * Prothrombin Time/INR (02/23/2025 5:11 PM EDT) Prothrombin Time 13.1 12.0 - 14.3 sec LAB COAGULATION METHOD 02/23/2025 5:42 PM EDT [facility] INR 1.0 0.9 - 1.1 LAB COAGULATION METHOD 02/23/2025 5:42 PM EDT [facility] Blood Venous blood specimen / Unknown Venipuncture / Unknown 02/23/2025 5:11 PM EDT 02/23/2025 5:24 PM EDT Narrative [facility] - 02/23/2025 5:42 PM EDT OPTIMAL INR RANGES FOR PATIENT ON ORAL ANTICOAGULANT THERAPY Prevention of venous thromboembolism INR 2.0 to 3.0 In patients with heart disease: Atrial fibrillation INR 2.0 to 3.0 Valvular heart disease INR 2.0 to 3.0 Tissue heart valves INR 2.0 to 3.0 Mechanical prosthetic valves INR 2.5 to 3.5 Prevention of recurrent MN INR 2.5 to 3.5 us Ned Menendez MD LAB BLOOD ORDERABLES Final Res ult [facility] [address] [place] [address] * Type and Screen (02/23/2025 5:11 PM EDT) ABO/Rh A Positive 02/23/2025 4:20 PM EDT BLOOD BANK Antibody Screen Negative 02/23/2025 4:20 PM EDT BLOOD BANK Specimen Expiration 02/26/2025 23:59 02/23/2025 4:20 PM EDT BLOOD BANK Blood Venous blood specimen / Unknown Venipuncture / Unknown 02/23/2025 5:11 PM EDT 02/23/2025 5:24 PM EDT us Ned Menendez MD LAB BLOOD BANK TEST ORDERABLES Final Result Performing Organization Address City/[facility] Co de Phone Number BLOOD BANK [address] * (ABNORMAL) POCT glucose meter (02/23/2025 12:01 PM EDT) POCT Glucose 115(H) 74 - 99 mg/dL [...] 02/23/2025 12:09 PM EDT [facility] Special Events Driver ID Mehreen Kumari 02/24/20 12:09 PM EDT [facility] Device ID [id number] 02/23/2025 12:09 PM EDT [facility] Specimen Type POC Capillary 02/23/2025 12:09 PM EDT [facility] Blood Capillary blood specimen / Unknown 02/23/2025 12:01 PM EDT 02/23/2025 12:09 PM EDT us Ned Menendez MD LAB POINT OF CARE TE ST DOCKED DEVICE UNSOLICITED RESULTS Final Result Performing Organization Address City/[facility]/ZIP Co de Phone Number [facility] [address] [place] [address] * (ABNORMAL) POCT glucose meter (02/23/2025 8:20 [...] Comment 02/23/2025 11:54 AM EDT [facility] Special Events Driver ID Mehreen Kumari 02/24/20 11:54 AM EDT [facility]ALTH[facility]ARE [facility] Device ID [id number] 02/23/2025 11:54 AM EDT [facility] Specimen Type POC Capillary 02/23/2025 11:54 AM EDT [facility] Blood Capillary blood specimen / Unknown 02/23/2025 8:20 AM EDT 02/23/2025 11:54 AM EDT Ned Menendez MD LAB POINT OF CARE TE ST DOCKED DEVICE UNSOLICITED RESULTS Final Result Performing Organization Address City/[facility]/ZIP Co de Phone Number HEALTHCARE LAB [address] [place] [address] * (ABNORMAL) Sodium (02/23/2025 12:40 AM EDT) [facility] Sodium, Plasma 134(L) 136 - 145 mmol/L 02/23/2025 1:32 AM EDT [facility] Blood Venous blood specimen / Unknown Venipuncture / Unknown 02/23/2025 12:40 AM EDT 02/23/2025 1:10 AM EDT Anaya Felton APRN LAB BLOOD ORDERABLES Final R esult [facility] [address] [place] [address] * (ABNORMAL) POCT glucose meter (02/22/2025 7:51 PM EDT) [facility] POCT Glucose 118(H) 74 - 99 mg/dL [...] 02/22/2025 8:17 PM EDT [facility] Special Events Driver ID Matt Calle 02/22/2025 8:17 PM EDT HEALTHCARE LAB Device ID [id number] 02/22/2025 8:17 PM EDT [facility]ARE [facility] Specimen Type POC Capillary 02/22/2025 8:17 PM EDT [facility] Blood Capillary blood specimen / Unknown 02/22/2025 7:51 PM EDT 02/22/2025 8:17 PM EDT Ned Menendez MD LAB POINT OF CARE TE ST DOCKED DEVICE UNSOLICITED RESULTS Final Result Performing Organization Address City/[facility] Co de Phone Number [facility] [address] [place] [address] * (ABNORMAL) POCT Glucose - Before Meals and Bedtime (02/22/2025 7:45 PM EDT) [facility] POCT Glucose 128(A) 74 - 99 mg/dL [facility] Blood Venous blood specimen / Unknown 02/22/2025 7:45 PM EDT Anaya Felton [employer]OD[employer] TEACHER POINT OF CARE TEST ENTER/FABIO T ORDERABLES Final Result Performing Organization Address [facility] Co de Phone Number [facility]ARE [facility] [address] [place] [address] * MR Head w IV Contrast (02/22/2025 [...] Comment 02/22/2025 3:44 PM EDT [facility] Special Events Driver ID Елена Hyatt 3:44 PM EDT [facility] Device ID [id number] 02/22/2025 3:44 PM EDT [facility] Specimen Type POC Capillary 02/22/2025 3:44 PM EDT [facility] Blood Capillary blood specimen / Unknown 02/22/2025 3:40 PM EDT 02/22/2025 3:44 PM EDT Ned Menendez MD LAB POINT OF CARE TE ST DOCKED DEVICE UNSOLICITED RESULTS Final Result [facility] [address] [place] [address] * (ABNORMAL) CBC W/O Differential (02/22/2025 12:45 PM EDT) WBC Count 12.31(H) 3.70 - 10.30 10*3/uL LAB HEMATOLOGY METHOD 02/22/2025 1:04 PM EDT [facility] RBC Count 4.86 3.90 - 5.20 10*6/uL LAB HEMATOLOGY METHOD 02/22/2025 1:04 PM EDT [facility] HGB 13.5 11.2 - 15.7 g/dL LAB HEMATOLOGY METHOD 02/22/2025 1:04 PM EDT [facility] HCT 40.9 34.0 - 45.0 % LAB HEMATOLOGY METHOD 02/22/2025 1:04 PM EDT [facility] Platelet Count 429(H) 155 - 369 10*3/uL LAB HEMATOLOGY METHOD 02/22/2025 1:04 PM EDT [facility] MCV 84 79 - 98 fL LAB HEMATOLOGY METHOD 02/22/2025 1:04 PM EDT [facility] MCH 27.8 26.0 - 32.0 pg LAB HEMATOLOGY METHOD 02/22/2025 1:04 PM EDT [facility] MCHC 33.0 30.7 - 35.5 g/dL LAB HEMATOLOGY METHOD 02/22/2025 1:04 PM EDT [facility] RDW 12.9 11.5 - 14.5 % LAB HEMATOLOGY METHOD 02/22/2025 1:04 PM EDT [facility] MPV 9.1 8.8 - 12.5 fL LAB HEMATOLOGY METHOD 02/22/2025 1:04 PM EDT [facility] nRBC 0.0 <=0.0 per 100 WBCs LAB HEMATOLOGY METHOD 02/22/2025 1:04 PM EDT [facility] Blood Venous blood specimen / Unknown Venipuncture / Unknown 02/22/2025 12:45 PM EDT 02/22/2025 12:56 PM EDT Ned Menendez MD LAB BLOOD ORDERABLES Final Res ult [facility] [address] [place] [address] * (ABNORMAL) Basic Metabolic Panel, Plasma (02/22/2025 12:45 PM EDT) Glucose, Plasma 133(H) 74 - 99 mg/dL 02/22/2025 1:26 PM EDT [facility] BUN, Plasma 22 8 - 23 mg/dL 02/22/2025 1:26 PM EDT [facility] Creatinine, Plasma 0.67 0.60 - 1.10 mg/dL 02/22/2025 1:26 PM EDT [facility] BUN/Creatinine Ratio 33 02/22/2025 1:26 PM EDT [facility] Sodium, Plasma 130(L) 136 - 145 mmol/L 02/22/2025 1:26 PM EDT [facility] Potassium, Plasma 4.5 3.6 - 4.9 mmol/L 02/22/2025 1:26 PM EDT [facility] Chloride, Plasma 97 97 - 107 mmol/L 02/22/2025 1:26 PM EDT [facility] CO2, Plasma 21(L) 22 - 29 mmol/L 02/22/2025 1:26 PM EDT [facility] Anion Gap 12 6 - 16 mmol/L 02/22/2025 1:26 PM EDT [facility] Total Calcium, Plasma 9.7 8.9 - 10.2 mg/dL 02/22/2025 1:26 PM EDT [facility] eGFRcr 96.5 mL/min/1.7 3m*2 02/22/2025 1:26 PM EDT [facility] Comment:Reported eGFRcr in m L/min/1.73m2 is based the CKD-EPI 2020 equation that does not use a race coefficient. Blood Venous blood specimen / Unknown Venipuncture / Unknown 02/22/2025 12:45 PM EDT 02/22/2025 12:56 PM EDT us Ned Menendez MD LAB BLOOD ORDERABLES Final Res ult [facility] [address] [place] [address] * Magnesium, Plasma (02/22/2025 12:45 PM EDT) Magnesium, Plasma 2.0 1.9 - 2.4 mg/dL 02/22/2025 1:26 PM EDT [facility] Blood Venous blood specimen / Unknown Venipuncture / Unknown 02/22/2025 12:45 PM EDT 02/22/2025 12:56 PM EDT us Ned Menendez MD LAB BLOOD ORDERABLES Final Res ult [facility] [address] [place] [address] * Phosphorus, Plasma (02/22/2025 12:45 PM EDT) Phosphorus, Plasma 3.5 2.5 - 4.5 mg/dL 02/22/2025 1:26 PM EDT [facility] Blood Venous blood specimen / Unknown Venipuncture / Unknown 02/22/2025 12:45 PM EDT 02/22/2025 12:56 PM EDT Result Chase Menendez MD LAB BLOOD ORDERABLES Final Res ult Performing Organization Address [facility]/ZIP Co de Phone Number [facility] [address] [place] [address] * Prothrombin Time/INR (02/22/2025 12:45 PM EDT) Prothrombin Time 12.9 12.0 - 14.3 sec LAB COAGULATION METHOD 02/22/2025 1:21 PM EDT [facility] INR 1.0 0.9 - 1.1 LAB COAGULATION METHOD 02/22/2025 1:21 PM EDT [facility] Blood Venous blood specimen / Unknown Venipuncture / Unknown 02/22/2025 12:45 PM EDT 02/22/2025 12:56 PM EDT Narrative [facility] - 02/22/2025 1:21 PM EDT OPTIMAL INR RANGES FOR PATIENT ON ORAL ANTICOAGULANT THERAPY Prevention of venous thromboembolism INR 2.0 to 3.0 In patients with heart disease: Atrial fibrillation INR 2.0 to 3.0 Valvular heart disease INR 2.0 to 3.0 Tissue heart valves INR 2.0 to 3.0 Mechanical prosthetic valves INR 2.5 to 3.5 Prevention of recurrent MN INR 2.5 to 3.5 Result Chase Menendez MD LAB BLOOD ORDERABLES Final Res ult Performing Organization Address City/[facility]/ZIP Co de Phone Number [facility] [address] [place] [address] * APTT (02/22/2025 12:45 PM EDT) aPTT 29 25 - 35 sec LAB COAGULATION METHOD 02/22/2025 1:21 PM EDT [facility] Blood Venous blood specimen / Unknown Venipuncture / Unknown 02/22/2025 12:45 PM EDT 02/22/2025 12:56 PM EDT us Ned Menendez MD LAB BLOOD ORDERABLES Final Res ult Performing Organization Address City/[facility]/ZIP Co de Phone Number [facility] [address] [place] [address] * (ABNORMAL) Sodium (02/22/2025 12:45 PM EDT) [facility] Sodium, Plasma 130(L) 136 - 145 mmol/L 02/22/2025 1:26 PM EDT [facility] Blood Venous blood specimen / Unknown Venipuncture / Unknown 02/22/2025 12:45 PM EDT 02/22/2025 12:56 PM EDT Anaya Felton APRN LAB BLOOD ORDERABLES Final R esult Performing Organization Address [facility] Co de Phone Number [facility] [address] [place] [address] * (ABNORMAL) POCT glucose meter (02/22/2025 11:57 AM EDT) [facility] POCT Glucose 114(H) 74 - 99 mg/dL [...] 02/22/2025 12:02 PM EDT [facility] Special Events Driver ID Елена Hyatt 12:02 PM EDT [facility]ALTH[facility]ARE [facility] Device ID [id number] 02/22/2025 12:02 PM EDT [facility]ALTH[facility]ARE [facility] Specimen Type POC Capillary 02/22/2025 12:02 PM EDT [facility] Blood Capillary blood specimen / Unknown 02/22/2025 11:57 AM EDT 02/22/2025 12:02 PM EDT us Ned Menendez MD LAB POINT OF CARE TE ST DOCKED DEVICE UNSOLICITED RESULTS Final Result Performing Organization Address City/[facility]/ZIP Co de Phone Number [facility] [address] [place] [address] * (ABNORMAL) POCT glucose meter (02/22/2025 8:07 AM EDT) Pathologist [facility] POCT Glucose 139(H) 74 - 99 mg/dL [...] Comment 02/22/2025 11:57 AM EDT [facility]ALTH[facility]ARE [facility] Special Events Driver ID Елена Hyatt 11:57 AM EDT [facility] Device ID [id number] 02/22/2025 11:57 AM EDT [facility] Specimen Type POC Capillary 02/22/2025 11:57 AM EDT [facility] Blood Capillary blood specimen / Unknown 02/22/2025 8:07 AM EDT 02/22/2025 11:57 AM EDT us Ned Menendez MD LAB POINT OF CARE TE ST DOCKED DEVICE UNSOLICITED RESULTS Final Result Performing Organization Address City/[facility]/ZIP Co de Phone Number [facility] [address] [place] [address] * (ABNORMAL) Sodium (02/22/2025 3:57 AM EDT) [facility] Sodium, Plasma 132(L) 136 - 145 mmol/L 02/22/2025 5:45 AM EDT [facility] Blood Venous blood specimen / Unknown Venipuncture / Unknown 02/22/2025 3:57 AM EDT 02/22/2025 4:28 AM EDT us Anaya Felton APRN LAB BLOOD ORDERABLES Final R esult [facility] [address] [place] [address] * (ABNORMAL) POCT glucose meter (02/21/2025 7:32 PM EDT) [facility] POCT Glucose 155(H) 74 - 99 mg/dL [...] Comment 02/21/2025 7:35 PM EDT [facility]ALTH[facility]ARE [facility] Special Events Driver ID Jorje Rivas 7:35 PM EDT HEALTH[facility]ARE LAB Device ID [id number] 02/21/2025 7:35 PM EDT [facility]ARE [facility] Specimen Type POC Capillary 02/21/2025 7:35 PM EDT [facility] Blood Capillary blood specimen / Unknown 02/21/2025 7:32 PM EDT 02/21/2025 7:35 PM EDT Ned Menendez MD LAB POINT OF CARE TE ST DOCKED DEVICE UNSOLICITED RESULTS Final Result Performing Organization Address City/State/[facility] Co de Phone Number [facility]ALTH[facility]ARE [facility] [address] [place] [address] * (ABNORMAL) POCT glucose meter (02/21/2025 4:01 PM EDT) [facility] POCT Glucose 131(H) 74 - 99 mg/dL [...] for testing. Comment 02/21/2025 5:25 PM EDT [facility] Special Events Driver ID Елена Hyatt 5:25 PM EDT [facility] Device ID [id number] 02/21/2025 5:25 PM EDT [facility]ALTH[facility]ARE [facility] Specimen Type POC Capillary 02/21/2025 5:25 PM EDT [facility] Blood Capillary blood specimen / Unknown 02/21/2025 4:01 PM EDT 02/21/2025 5:25 PM EDT Ned Menendez MD LAB POINT OF CARE TE ST DOCKED DEVICE UNSOLICITED RESULTS Final Result Performing Organization Address City/[facility]/ZIP Co de Phone Number [facility] [address] [place] [address] * (ABNORMAL) Sodium (02/21/2025 4:01 PM EDT) [facility] Sodium, Plasma 131(L) 136 - 145 mmol/L 02/21/2025 4:31 PM EDT [facility] Blood Venous blood specimen / Unknown Venipuncture / Unknown 02/21/2025 4:01 PM EDT 02/21/2025 4:09 PM EDT Anaya Felton APRN LAB BLOOD ORDERABLES Final R esult Performing Organization Address City/[facility] Co de Phone Number [facility] [address] [place] [address] * (ABNORMAL) POCT glucose meter (02/21/2025 12:08 PM EDT) [facility] POCT Glucose 152(H) 74 - 99 mg/dL [...] for testing. Comment 02/21/2025 12:43 PM EDT [facility] Special Events Driver ID Елена Hyatt 12:43 PM EDT HEALTHCARE LAB Device ID [id number] 02/21/2025 12:43 PM EDT [facility]ARE [facility] Specimen Type POC Capillary 02/21/2025 12:43 PM EDT [facility] Blood Capillary blood specimen / Unknown 02/21/2025 12:08 PM EDT 02/21/2025 12:43 PM EDT us Ned Menendez MD LAB POINT OF CARE TE ST DOCKED DEVICE UNSOLICITED RESULTS Final Result Performing Organization Address [facility] de Phone Number [facility]ARE [facility] [address] [place] [address] * (ABNORMAL) POCT glucose meter (02/21/2025 8:29 AM EDT) POCT Glucose 129(H) 74 - 99 mg/dL 02/21/2025 8:43 AM EDT [facility] Comment:Accuracy of a glucos e [...] for testing. Comment 02/21/2025 8:43 AM EDT [facility] Special Events Driver ID Елена Hyatt 8:43 AM EDT [facility] Device ID [id number] 02/21/2025 8:43 AM EDT [facility] Specimen Type POC Capillary 02/21/2025 8:43 AM EDT [facility] Blood Capillary blood specimen / Unknown 02/21/2025 8:29 AM EDT 02/21/2025 8:43 AM EDT us Ned Menendez MD LAB POINT OF CARE TE ST DOCKED DEVICE UNSOLICITED RESULTS Final Result Performing Organization Address City/[facility] Co de Phone Number [facility]ARE [facility] [address] [place] [address] * (ABNORMAL) Sodium (02/21/2025 4:31 AM EDT) Pathologist [facility] Sodium, Plasma 132(L) 136 - 145 mmol/L 02/21/2025 6:28 AM EDT [facility] Blood Venous blood specimen / Unknown Venipuncture / Unknown 02/21/2025 4:31 AM EDT 02/21/2025 6:04 AM EDT us Anaya Ever Felton [employer] LAB BLOOD ORDERABLES Final R esult [facility] [address] [place] [address] * (ABNORMAL) POCT glucose meter (02/20/2025 7:45 PM EDT) POCT Glucose 128(H) 74 - 99 mg/dL [...] for testing. Comment 02/20/2025 7:46 PM EDT [facility] Special Events Driver ID Jorje Rivas 7:46 PM EDT [facility] Device ID [id number] 02/20/2025 7:46 PM EDT [facility] Specimen Type POC Capillary 02/20/2025 7:46 PM EDT [facility] Blood Capillary blood specimen / Unknown 02/20/2025 7:45 PM EDT 02/20/2025 7:46 PM EDT us Ned Menendez MD LAB POINT OF CARE TE ST DOCKED DEVICE UNSOLICITED RESULTS Final Result Performing Organization Address City/[facility]/ZIP Co de Phone Number [facility] [address] [place] [address] * (ABNORMAL) POCT glucose meter (02/20/2025 3:36 PM EDT) POCT Glucose 132(H) 74 - 99 mg/dL 02/20/2025 3:37 PM EDT [facility] Comment:Accuracy of [...] Comment 02/20/2025 3:37 PM EDT [facility] Special Events Driver ID Edwige Vasquez 025 3:37 PM EDT [facility] Device ID [id number] 02/20/2025 3:37 PM EDT [facility] Specimen Type POC Capillary 02/20/2025 3:37 PM EDT [facility] Blood Capillary blood specimen / Unknown 02/20/2025 3:36 PM EDT 02/20/2025 3:37 PM EDT Ned Menendez MD LAB POINT OF CARE TE ST DOCKED DEVICE UNSOLICITED RESULTS Final Result Performing Organization Address City/[facility]/ZIP Co de Phone Number [facility] [address] [place] [address] * (ABNORMAL) Sodium (02/20/2025 3:09 PM EDT) [facility] Sodium, Plasma 132(L) 136 - 145 mmol/L 02/20/2025 3:44 PM EDT [facility] Blood Venous blood specimen / Unknown Venipuncture / Unknown 02/20/2025 3:09 PM EDT 02/20/2025 3:21 PM EDT Anaya Felton APRN LAB BLOOD ORDERABLES Final R esult Performing Organization Address City/[facility]/ZIP Co de Phone Number [facility] [address] [place] [address] * (ABNORMAL) POCT glucose meter (02/20/2025 11:45 AM EDT) [facility] POCT Glucose 152(H) 74 - 99 mg/dL [...] for testing. Comment 02/20/2025 11:46 AM EDT [facility] Special Events Driver ID Edwige Vasquez 06/13/2 025 11:46 AM EDT [facility] Device ID [id number] 02/20/2025 11:46 AM EDT [facility]ALTHCARE LAB Specimen Type POC Capillary 02/20/2025 11:46 AM EDT [facility]ALTH[facility] LAB Blood Capillary blood specimen / Unknown 02/20/2025 11:45 AM EDT 02/20/2025 11:46 AM EDT Ned Menendez MD LAB POINT OF CARE TE ST DOCKED DEVICE UNSOLICITED RESULTS Final Result Performing Organization Address City/[facility] Co de Phone Number [facility] [address] [place] [address] * (ABNORMAL) POCT glucose meter (02/20/2025 7:45 AM EDT) [facility] POCT Glucose 140(H) 74 - 99 mg/dL [...] Comment 02/20/2025 7:48 AM EDT [facility]ALTHCARE LAB Special Events Driver ID Edwige Vasquez 025 7:48 AM EDT HEALTHCARE LAB Device ID [id number] 02/20/2025 7:48 AM EDT HEALTHCARE LAB Specimen Type POC Capillary 02/20/2025 7:48 AM EDT [facility]ALTH[facility] LAB Blood Capillary blood specimen / Unknown 02/20/2025 7:45 AM EDT 02/20/2025 7:48 AM EDT us Ned Menendez MD LAB POINT OF CARE TE ST DOCKED DEVICE UNSOLICITED RESULTS Final Result Performing Organization Address City/[facility] Co de Phone Number HEALTHCARE LAB [address] [place] [address] * Lavender Top (02/20/2025 4:27 AM EDT) [facility] Extra Hold for add-ons 02/20/2025 8:02 AM EDT [facility] Comment:Auto resulted. Blood Venous blood specimen / Unknown 02/20/2025 4:27 AM EDT 02/20/2025 5:06 AM EDT us Ned Menendez MD LAB BLOOD ORDERABLES Final Res ult Performing Organization Address [facility]/ZIP Co de Phone Number [facility] [address] [place] [address] * (ABNORMAL) Sodium (02/20/2025 4:27 AM EDT) Pathologist [facility] Sodium, Plasma 132(L) 136 - 145 mmol/L 02/20/2025 5:24 AM EDT [facility] Blood Venous blood specimen / Unknown Venipuncture / Unknown 02/20/2025 4:27 AM EDT 02/20/2025 5:03 AM EDT us Anaya Felton APRN LAB BLOOD ORDERABLES Final R esult Performing Organization Address City/[facility]/ZIP Co de Phone Number [facility] [address] [place] [address] * (ABNORMAL) POCT glucose meter (02/19/2025 7:59 PM EDT) [facility] POCT Glucose 132(H) 74 - 99 mg/dL 02/19/2025 8:02 PM EDT [facility] Comment:Accuracy of [...] for testing. Comment 02/19/2025 8:02 PM EDT [facility] Special Events Driver ID Dm Reaves 8:02 PM EDT [facility] Device ID [id number] 02/19/2025 8:02 PM EDT HEALTHCARE LAB Specimen Type POC Capillary 02/19/2025 8:02 PM EDT HEALTHCARE LAB Blood Capillary blood specimen / Unknown 02/19/2025 7:59 PM EDT 02/19/2025 8:02 PM EDT Ned Menendez MD LAB POINT OF CARE TE ST DOCKED DEVICE UNSOLICITED RESULTS Final Result Performing Organization Address City/[facility]/ZIP Co de Phone Number [facility] [address] [place] [address] * (ABNORMAL) Hemoglobin A1c (02/19/2025 4:17 PM EDT) Hemoglobin A1c 5.7(H) <5.7 % 02/19/2025 5:20 PM EDT [facility] Blood Venous blood specimen / Unknown Venipuncture / Unknown 02/19/2025 4:17 PM EDT 02/19/2025 4:49 PM EDT Narrative [facility] - 02/19/2025 5:20 PM EDT HA1C Interpretive Data: Diagnosis of Diabetes: Diabetic > or = 6.5% Pre-diabetic 5.7 to 6.4% Non-diabetic < or = 5.6% Glycemic Targets for Type I and Type II Diabetics: Non- Adults <7.0% Adults <6.0% Children and Adolescents <7.5% Source: [place] [employer]. Standards of medical care in diabetes,2017. Diabetes Care.2017:40 (suppl 1):S1-S135. Result [facility] Anaya Felton APRN LAB BLOOD ORDERABLES Final R esult Performing Organization Address City/[facility]/ZIP Co de Phone Number [facility] [address] [place] [address] * (ABNORMAL) Sodium (02/19/2025 4:17 PM EDT) Sodium, Plasma 129(L) 136 - 145 mmol/L 02/19/2025 5:06 PM EDT [facility] Blood Venous blood specimen / Unknown Venipuncture / Unknown 02/19/2025 4:17 PM EDT 02/19/2025 4:44 PM EDT Result [facility] Anaya Felton GEODESY TEACHER LAB BLOOD ORDERABLES Final R esult Performing Organization Address City/[facility]/ZIP Co de Phone Number [facility] [address] [place] [address] * (ABNORMAL) POCT glucose meter (02/19/2025 3:42 PM EDT) [facility] POCT Glucose 143(H) 74 - 99 mg/dL [...] Comment 02/19/2025 3:45 PM EDT HEALTHCARE LAB Special Events Driver ID Елена Hyatt 3:45 PM EDT HEALTHCARE LAB Device ID [id number] 02/19/2025 3:45 PM EDT [facility] Specimen Type POC Capillary 02/19/2025 3:45 PM EDT [facility] Blood Capillary blood specimen / Unknown 02/19/2025 3:42 PM EDT 02/19/2025 3:45 PM EDT Ned Menendez MD LAB POINT OF CARE TE ST DOCKED DEVICE UNSOLICITED RESULTS Final Result Performing Organization Address [facility] de Phone Number HEALTHCARE LAB [address] [place] [address] * (ABNORMAL) POCT glucose meter (02/19/2025 12:00 PM EDT) [facility] POCT Glucose 147(H) 74 - 99 mg/dL 02/19/2025 12:10 PM EDT [facility] Comment:Accuracy of [...] Comment 02/19/2025 12:10 PM EDT HEALTHCARE LAB Special Events Driver ID Елена Hyatt 12:10 PM EDT HEALTHCARE LAB Device ID [id number] 02/19/2025 12:10 PM EDT HEALTHCARE LAB Specimen Type POC Capillary 02/19/2025 12:10 PM EDT [facility]ALTH[facility]ARE LAB Blood Capillary blood specimen / Unknown 02/19/2025 12:00 PM EDT 02/19/2025 12:10 PM EDT Ned Menendez MD LAB POINT OF CARE TE ST DOCKED DEVICE UNSOLICITED RESULTS Final Result [facility] [address] [place] [address] * Creatinine, urine, random (02/19/2025 11:50 AM EDT) Creatinine, Urine 77 mg/dL 02/19/2025 12:53 PM EDT [facility] Urine Urine specimen obtained by clean catch procedure / Unknown Non-blood Collection / Unknown 02/19/2025 11:50 AM EDT 02/19/2025 12:09 PM EDT us Anaya Hdez MD LAB URINE ORDERABLES Final Resul t Performing Organization Address City/[facility]/ZIP [place] [address] * Osmolality, urine (02/19/2025 11:50 AM EDT) Osmolality, Urine 441 50 - 1,200 mOsm/kg 02/19/2025 12:55 PM EDT [facility] Urine Urine specimen obtained by clean catch procedure / Unknown Non-blood Collection / Unknown 02/19/2025 11:50 AM EDT 02/19/2025 12:09 PM EDT us Anaya Hdez MD LAB URINE ORDERABLES Final Resul t Performing Organization Address City/[facility]/ZIP Co de Phone Number [facility] [address] [place] [address] * Sodium, urine, random (02/19/2025 11:50 AM EDT) Sodium, Urine 57 mmol/L 02/19/2025 12:53 PM EDT [facility] Urine Urine specimen obtained by clean catch procedure / Unknown Non-blood Collection / Unknown 02/19/2025 11:50 AM EDT 02/19/2025 12:09 PM EDT Anaya Hdez MD LAB URINE ORDERABLES Final Resul t Performing Organization Address City/[facility]/ZIP Co de Phone Number [facility] [address] [place] [address] * ECG Adult (02/19/2025 11:42 AM EDT) EKG DIAGNOSIS CLASS Borderline Normal MUSE ECG Ventricular Rate 66 BPM MUSE ECG Atrial Rate 66 BPM MUSE ECG MO Interval 194 ms MUSE ECG QRSD Interval 88 ms MUSE ECG QT Interval 404 ms MUSE ECG QTC Interval 423 ms MUSE ECG P [place] 51 degrees MUSE ECG R [place] 23 degrees MUSE ECG T Wave [place] 26 degrees MUSE ECG Diagnosis Sinus rhythm with occasional premature ventricular complexes MUSE ECG Diagnosis MUSE ECG Diagnosis MUSE ECG Diagnosis Confirmed by Tasneem Ludwig ([id number]) on 02/20/2025 11:51:00 AM MUSE ECG 02/19/2025 11:4 2 AM EDT 02/20/2025 11:51 AM EDT us Anaya Hdez MD ECG ORDERABLES Final Result Performing Organization Address [facility] Co de Phone Number MUSE ECG * (ABNORMAL) Osmolality (02/19/2025 4:03 AM EDT) Osmolality, Serum 275(L) 280 - 301 mOsm/Kg 02/19/2025 11:41 AM EDT [facility] Blood Venous blood specimen / Unknown Venipuncture / Unknown 02/19/2025 4:03 AM EDT 02/19/2025 4:23 AM EDT Anaya Hdez MD LAB BLOOD ORDERABLES Final Resul t Performing Organization Address City/State/[facility] Co de Phone Number [facility] [address] [place] [address] * (ABNORMAL) Sodium (02/19/2025 4:03 AM EDT) Sodium, Plasma 129(L) 136 - 145 mmol/L 02/19/2025 4:51 AM EDT [facility] Blood Venous blood specimen / Unknown Venipuncture / Unknown 02/19/2025 4:03 AM EDT 02/19/2025 4:23 AM EDT Anaya Blackper GEODESY TEACHER LAB BLOOD ORDERABLES Final R esult Performing Organization Address City/[facility]/ZIP Co de Phone Number [facility] [address] [place] [address] * Phosphorus, Plasma (02/19/2025 4:03 AM EDT) Phosphorus, Plasma 3.2 2.5 - 4.5 mg/dL 02/19/2025 4:51 AM EDT [facility] Blood Venous blood specimen / Unknown Venipuncture / Unknown 02/19/2025 4:03 AM EDT 02/19/2025 4:23 AM EDT Anaya Curtis Jose Francisco GEODESY TEACHER LAB BLOOD ORDERABLES Final R esult [facility] [address] [place] [address] * Magnesium, Plasma (02/19/2025 4:03 AM EDT) Magnesium, Plasma 2.0 1.9 - 2.4 mg/dL 02/19/2025 4:51 AM EDT [facility] Blood Venous blood specimen / Unknown Venipuncture / Unknown 02/19/2025 4:03 AM EDT 02/19/2025 4:23 AM EDT Anaya Blackper GEODESY TEACHER LAB BLOOD ORDERABLES Final R esult [facility] [address] [place] [id number] * (ABNORMAL) Basic Metabolic Panel, Plasma (02/19/2025 4:03 AM EDT) Glucose, Plasma 153(H) 74 - 99 mg/dL 02/19/2025 4:51 AM EDT [facility] BUN, Plasma 14 8 - 23 mg/dL 02/19/2025 4:51 AM EDT [facility] Creatinine, Plasma 0.56(L) 0.60 - 1.10 mg/dL 02/19/2025 4:51 AM EDT [facility] BUN/Creatinine Ratio 25 02/19/2025 4:51 AM EDT [facility] Sodium, Plasma 129(L) 136 - 145 mmol/L 02/19/2025 4:51 AM EDT [facility] Potassium, Plasma 4.1 3.6 - 4.9 mmol/L 02/19/2025 4:51 AM EDT [facility] Chloride, Plasma 96(L) 97 - 107 mmol/L 02/19/2025 4:51 AM EDT [facility] CO2, Plasma 22 22 - 29 mmol/L 02/19/2025 4:51 AM EDT [facility] Anion Gap 11 6 - 16 mmol/L 02/19/2025 4:51 AM EDT [facility] Total Calcium, Plasma 9.6 8.9 - 10.2 mg/dL 02/19/2025 4:51 AM EDT [facility] eGFRcr 100.8 mL/min/1.7 3m*2 02/19/2025 4:51 AM EDT [facility] Comment:Reported eGFRcr in m L/min/1.73m2 is based the CKD-EPI 2020 equation that does not use a race coefficient. Blood Venous blood specimen / Unknown Venipuncture / Unknown 02/19/2025 4:03 AM EDT 02/19/2025 4:23 AM EDT us Anaya Felton GEODESY TEACHER LAB BLOOD ORDERABLES Final R esult [facility] [address] [place] [address] * (ABNORMAL) Sodium (02/18/2025 3:27 PM EDT) Sodium, Plasma 128(L) 136 - 145 mmol/L 02/18/2025 4:35 PM EDT [facility] Blood Venous blood specimen / Unknown Venipuncture / Unknown 02/18/2025 3:27 PM EDT 02/18/2025 4:00 PM EDT us Anaya Felton GEODESY TEACHER LAB BLOOD ORDERABLES Final R esult [facility] [address] [place] [address] * MR Brain Neurofunctional Test w Physician [...] margins. 3. Components of the corticospinal tract (GRIT BLASTER) have immediate proximity to the medial tumor margin. CRITICAL RESULT: No. COMMUNICATION: Per this written report. 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 TECHNIQUE: Anatomical MRI: 1 mm isotropic [...] margins. DTI Motor: The left corticospinal tract (GRIT BLASTER) is displaced medially. The GRIT BLASTER has proximity to the medial tumor margin at the level of ordaz radiata and the posterior limb of the internal capsule. The relatively more posterior portion of the GRIT BLASTER has immediate proximity, while the more anterior portion of the GRIT BLASTER has close proximity with 3 mm [id number] distance. DTI Language: The left superior longitudinal [...] completion language DTI fiber tracking: blue = GRIT BLASTER red = SLF Images were created in [facility] and then exported to PACS as burned in images. Saved Plan of fibertracking results will be found on the [facility] corporate counselor under the name fMRI_DTI Final. Procedure Note Aurelio Brown MD - 02/18/2025 CLINICAL INDICATION: Presurgical planning, fMRI speech and motor. INTEGRITY DIRECTOR neoplasm. TECHNIQUE: Anatomical MRI: 1 mm isotropic [...] margins. DTI Motor: The left corticospinal tract (GRIT BLASTER) is displaced medially. TheCST has proximity to the medial tumor margin at the level of coronaradiata and the posterior limb of the internal capsule. The relativelymore posterior portion of the GRIT BLASTER has immediate proximity, while the moreanterior portion of the GRIT BLASTER has close proximity with 3 mm [id number]. DTI Language: The left superior longitudinal fasciculus [...] completion language DTI fiber tracking: blue = GRIT BLASTER red = SLF Images were created in [...] margins. 3. Components of the corticospinal tract (GRIT BLASTER) have immediate proximity tothe medial tumor margin. CRITICAL RESULT: No. COMMUNICATION: Per this written report. Drafted by Aurelio Brown MD on 02/18/2025 1:16 PM Final report signed by Aurelio Brown MD on 02/18/2025 6:45 PM Ned Menendez MD [facility] MRI PROCEDURES Final Resul t * (ABNORMAL) Comprehensive Metabolic Panel, Plasma (02/18/2025 8:54 AM EDT) Glucose, Plasma 106(H) 74 - 99 mg/dL 02/18/2025 9:38 AM EDT [facility] BUN, Plasma 11 8 - 23 mg/dL 02/18/2025 9:38 AM EDT [facility] Creatinine, Plasma 0.54(L) 0.60 - 1.10 mg/dL 02/18/2025 9:38 AM EDT [facility] BUN/Creatinine Ratio 20 02/18/2025 9:38 AM EDT [facility] Sodium, Plasma 132(L) 136 - 145 mmol/L 02/18/2025 9:38 AM EDT [facility] Potassium, Plasma 3.9 3.6 - 4.9 mmol/L 02/18/2025 9:38 AM EDT [facility] Chloride, Plasma 96(L) 97 - 107 mmol/L 02/18/2025 9:38 AM EDT [facility] CO2, Plasma 24 22 - 29 mmol/L 02/18/2025 9:38 AM EDT [facility] Anion Gap 12 6 - 16 mmol/L 02/18/2025 9:38 AM EDT [facility] Total Calcium, Plasma 8.9 8.9 - 10.2 mg/dL 02/18/2025 9:38 AM EDT [facility] Total Protein 6.8 6.3 - 7.9 g/dL 02/18/2025 9:38 AM EDT [facility] Albumin, Plasma 4.0 3.5 - 5.2 g/dL 02/18/2025 9:38 AM EDT [facility] AST, Plasma 27 10 - 35 U/L 02/18/2025 9:38 AM EDT [facility] Comment:Hemolyzed, result ma y be falsely increased. ALT, Plasma 19 10 - 35 U/L 02/18/2025 9:38 AM EDT [facility] Alkaline Phosphatase, Plasma 63 46 - 142 U/L 02/18/2025 9:38 AM EDT [facility] Total Bilirubin, Plasma 0.4 0.2 - 1.1 mg/dL 02/18/2025 9:38 AM EDT [facility] eGFRcr 101.7 mL/min/1.7 3m*2 02/18/2025 9:38 AM EDT [facility] Comment:Reported eGFRcr in m L/min/1.73m2 is based the CKD-EPI 2020 equation that does not use a race coefficient. Blood Venous blood specimen / Unknown Venipuncture / Unknown 02/18/2025 8:54 AM EDT 02/18/2025 9:07 AM EDT Anaya Blackjeff GEODESY TEACHER LAB BLOOD ORDERABLES Final R esult Performing Organization Address City/[facility]/ZIP Co de Phone Number [facility] [address] [place] [address] * Phosphorus, Plasma (02/18/2025 8:54 AM EDT) Phosphorus, Plasma 3.3 2.5 - 4.5 mg/dL 02/18/2025 9:38 AM EDT [facility] Blood Venous blood specimen / Unknown Venipuncture / Unknown 02/18/2025 8:54 AM EDT 02/18/2025 9:07 AM EDT Result [facility] Anaya Blackjeff GEODESY TEACHER LAB BLOOD ORDERABLES Final R esult Performing Organization Address City/[facility]/ZIP Co de Phone Number [facility] [address] [place] [address] * (ABNORMAL) Magnesium, Plasma (02/18/2025 8:54 AM EDT) Magnesium, Plasma 1.8(L) 1.9 - 2.4 mg/dL 02/18/2025 9:38 AM EDT [facility] Blood Venous blood specimen / Unknown Venipuncture / Unknown 02/18/2025 8:54 AM EDT 02/18/2025 9:07 AM EDT Anaya Blackper GEODESY TEACHER LAB BLOOD ORDERABLES Final R esult [facility] [address] [place] [address] * CBC W/O Differential (02/16/2025 9:51 PM EDT) WBC Count 10.03 3.70 - 10.30 10*3/uL LAB HEMATOLOGY METHOD 02/16/2025 10:10 PM EDT [facility] RBC Count 4.58 3.90 - 5.20 10*6/uL LAB HEMATOLOGY METHOD 02/16/2025 10:10 PM EDT [facility] HGB 13.0 11.2 - 15.7 g/dL LAB HEMATOLOGY METHOD 02/16/2025 10:10 PM EDT [facility] HCT 37.4 34.0 - 45.0 % LAB HEMATOLOGY METHOD 02/16/2025 10:10 PM EDT [facility] Platelet Count 365 155 - 369 10*3/uL LAB HEMATOLOGY METHOD 02/16/2025 10:10 PM EDT [facility] MCV 82 79 - 98 fL LAB HEMATOLOGY METHOD 02/16/2025 10:10 PM EDT [facility] MCH 28.4 26.0 - 32.0 pg LAB HEMATOLOGY METHOD 02/16/2025 10:10 PM EDT [facility] MCHC 34.8 30.7 - 35.5 g/dL LAB HEMATOLOGY METHOD 02/16/2025 10:10 PM EDT [facility] RDW 12.6 11.5 - 14.5 % LAB HEMATOLOGY METHOD 02/16/2025 10:10 PM EDT [facility] MPV 9.0 8.8 - 12.5 fL LAB HEMATOLOGY METHOD 02/16/2025 10:10 PM EDT [facility] nRBC 0.0 <=0.0 per 100 WBCs LAB HEMATOLOGY METHOD 02/16/2025 10:10 PM EDT [facility] Blood Venous blood specimen / Unknown Venipuncture / Unknown 02/16/2025 9:51 PM EDT 02/16/2025 10:08 PM EDT us Ned Menendez MD LAB BLOOD ORDERABLES Final Res ult [facility] [address] [place] [address] * (ABNORMAL) Basic Metabolic Panel, Plasma (02/16/2025 9:51 PM EDT) Glucose, Plasma 135(H) 74 - 99 mg/dL 02/16/2025 10:31 PM EDT [facility] BUN, Plasma 9 8 - 23 mg/dL 02/16/2025 10:31 PM EDT [facility] Creatinine, Plasma 0.52(L) 0.60 - 1.10 mg/dL 02/16/2025 10:31 PM EDT [facility] BUN/Creatinine Ratio 17 02/16/2025 10:31 PM EDT [facility] Sodium, Plasma 125(L) 136 - 145 mmol/L 02/16/2025 10:31 PM EDT [facility] Potassium, Plasma 4.0 3.6 - 4.9 mmol/L 02/16/2025 10:31 PM EDT [facility] Chloride, Plasma 91(L) 97 - 107 mmol/L 02/16/2025 10:31 PM EDT [facility] CO2, Plasma 22 22 - 29 mmol/L 02/16/2025 10:31 PM EDT [facility] Anion Gap 12 6 - 16 mmol/L 02/16/2025 10:31 PM EDT [facility] Total Calcium, Plasma 9.7 8.9 - 10.2 mg/dL 02/16/2025 10:31 PM EDT [facility] eGFRcr 102.6 mL/min/1.7 3m*2 02/16/2025 10:31 PM EDT [facility] Comment:Reported eGFRcr in m L/min/1.73m2 is based the CKD-EPI 2020 equation that does not use a race coefficient. Blood Venous blood specimen / Unknown Venipuncture / Unknown 02/16/2025 9:51 PM EDT 02/16/2025 10:08 PM EDT us Ned Menendez MD LAB BLOOD ORDERABLES Final Res ult [facility] [address] [place] [address] * (ABNORMAL) Magnesium, Plasma (02/16/2025 9:51 PM EDT) Magnesium, Plasma 1.7(L) 1.9 - 2.4 mg/dL 02/16/2025 10:31 PM EDT [facility] Blood Venous blood specimen / Unknown Venipuncture / Unknown 02/16/2025 9:51 PM EDT 02/16/2025 10:08 PM EDT us Ned Menendez MD LAB BLOOD ORDERABLES Final Res ult [facility] [address] [place] [address] * (ABNORMAL) Phosphorus, Plasma (02/16/2025 9:51 PM EDT) Phosphorus, Plasma 2.3(L) 2.5 - 4.5 mg/dL 02/16/2025 10:31 PM EDT [facility] Blood Venous blood specimen / Unknown Venipuncture / Unknown 02/16/2025 9:51 PM EDT 02/16/2025 10:08 PM EDT us Ned Menendez MD LAB BLOOD ORDERABLES Final Res ult [facility] [address] [place] [address] * Prothrombin Time/INR (02/16/2025 9:51 PM EDT) Prothrombin Time 13.3 12.0 - 14.3 sec 02/16/2025 10:28 PM EDT [facility] INR 1.0 0.9 - 1.1 02/16/2025 10:28 PM EDT [facility] Blood Venous blood specimen / Unknown Venipuncture / Unknown 02/16/2025 9:51 PM EDT 02/16/2025 10:08 PM EDT Narrative [facility] - 02/16/2025 10:28 PM EDT OPTIMAL INR RANGES FOR PATIENT ON ORAL ANTICOAGULANT THERAPY Prevention of venous thromboembolism INR 2.0 to 3.0 In patients with heart disease: Atrial fibrillation INR 2.0 to 3.0 Valvular heart disease INR 2.0 to 3.0 Tissue heart valves INR 2.0 to 3.0 Mechanical prosthetic valves INR 2.5 to 3.5 Prevention of recurrent [place] INR 2.5 to 3.5 Ned Menendez MD LAB BLOOD ORDERABLES Final Res ult Performing Organization Address City/[facility]/ZIP Co [place] [address] * APTT (02/16/2025 9:51 PM EDT) aPTT 25 25 - 35 sec 02/16/2025 10:28 PM EDT [facility] Blood Venous blood specimen / Unknown Venipuncture / Unknown 02/16/2025 9:51 PM EDT 02/16/2025 10:08 PM EDT Ned Menendez MD LAB BLOOD ORDERABLES Final Res ult Performing Organization Address [facility] Co [place] [address] * Anti Xa Level Unfractionated Heparin (02/16/2025 9:51 PM EDT) Anti Xa Level Unfractionated Heparin <0.11 <1.00 IU/mL 02/16/2025 10:30 PM EDT [facility] Blood Venous blood specimen / Unknown Venipuncture / Unknown 02/16/2025 9:51 PM EDT 02/16/2025 10:08 PM EDT Narrative [facility] - 02/16/2025 10:30 PM EDT Therapeutic Range: UFH Full Dose and ACS/MN protocols*: 0.30 - 0.70 IU/mL UFH Low Dose protocol*: 0.25 - 0.50 IU/mL UFH prophylaxis: Not established Maximus Ambrocio DO LAB BLOOD ORDERABLES Final Res ult Performing Organization Address City/[facility]/ZIP Co de Phone Number [facility] [address] [place] [address] * MR Head w and wo IV [...] Total DLP (Dose-Length Product): 1500.35 mGy.cm (accession [id number]), 1500.35 mGy.cm (accession [id number]). Please note: The reported value represents the [...] Total DLP (Dose-Length Product): 1500.35 mGy.cm (accession [id number]),1500.35 mGy.cm (accession [id number]). Please note: The reported valuerepresents the total [...] Total DLP (Dose-Length Product): 1500.35 mGy.cm (accession [id number]), 1500.35 mGy.cm (accession [id number]). Please note: The reported value represents the [...] Total DLP (Dose-Length Product): 1500.35 mGy.cm (accession [id number]),1500.35 mGy.cm (accession [id number]). Please note: The reported valuerepresents the total [...] - 418 PRU 02/16/2025 7:43 PM EDT [facility] Blood Venous blood specimen / Unknown Venipuncture / Unknown 02/16/2025 7:25 PM EDT 02/16/2025 7:31 PM EDT Narrative [facility] - 02/16/2025 7:43 PM EDT [...] to the clinician. Testing performed in the [facility] for Special Coagulation. us Maximus Ambrocio DO LAB BLOOD ORDERABLES Final Res ult [facility] [address] [place] [address] * (ABNORMAL) CBC and Differential (02/16/2025 6:10 PM EDT) WBC Count 10.56(H) 3.70 - 10.30 10*3/uL LAB HEMATOLOGY METHOD 02/16/2025 6:18 PM EDT [facility] RBC Count 4.68 3.90 - 5.20 10*6/uL LAB HEMATOLOGY METHOD 02/16/2025 6:18 PM EDT [facility] HGB 13.2 11.2 - 15.7 g/dL LAB HEMATOLOGY METHOD 02/16/2025 6:18 PM EDT [facility] HCT 39.0 34.0 - 45.0 % LAB HEMATOLOGY METHOD 02/16/2025 6:18 PM EDT [facility] Platelet Count 348 155 - 369 10*3/uL LAB HEMATOLOGY METHOD 02/16/2025 6:18 PM EDT [facility] MCV 83 79 - 98 fL LAB HEMATOLOGY METHOD 02/16/2025 6:18 PM EDT [facility] MCH 28.2 26.0 - 32.0 pg LAB HEMATOLOGY METHOD 02/16/2025 6:18 PM EDT [facility] MCHC 33.8 30.7 - 35.5 g/dL LAB HEMATOLOGY METHOD 02/16/2025 6:18 PM EDT [facility] RDW 12.6 11.5 - 14.5 % LAB HEMATOLOGY METHOD 02/16/2025 6:18 PM EDT [facility] MPV 8.9 8.8 - 12.5 fL LAB HEMATOLOGY METHOD 02/16/2025 6:18 PM EDT [facility] nRBC 0.0 <=0.0 per 100 WBCs LAB HEMATOLOGY METHOD 02/16/2025 6:18 PM EDT [facility] Differential Type Automated LAB HEMATOLOGY METHOD 02/16/2025 6:18 PM EDT [facility] Neutrophils % 69 % LAB HEMATOLOGY METHOD 02/16/2025 6:18 PM EDT [facility] Lymphocytes % 23 % LAB HEMATOLOGY METHOD 02/16/2025 6:18 PM EDT [facility] Monocytes % 7 % LAB HEMATOLOGY METHOD 02/16/2025 6:18 PM EDT [facility] Eosinophils % 0 % LAB HEMATOLOGY METHOD 02/16/2025 6:18 PM EDT [facility] Basophils % 1 % LAB HEMATOLOGY METHOD 02/16/2025 6:18 PM EDT [facility] Immature Granulocytes % 0 % LAB HEMATOLOGY METHOD 02/16/2025 6:18 PM EDT [facility] Neutrophils Absolute 7.33(H) 1.60 - 6.10 10*3/uL LAB HEMATOLOGY METHOD 02/16/2025 6:18 PM EDT [facility] Lymphocytes Absolute 2.38 1.20 - 3.90 10*3/uL LAB HEMATOLOGY METHOD 02/16/2025 6:18 PM EDT [facility] Monocytes Absolute 0.73 0.30 - 0.90 10*3/uL LAB HEMATOLOGY METHOD 02/16/2025 6:18 PM EDT [facility] Eosinophils Absolute 0.03 0.00 - 0.50 10*3/uL LAB HEMATOLOGY METHOD 02/16/2025 6:18 PM EDT [facility] Basophils Absolute 0.05 0.00 - 0.10 10*3/uL LAB HEMATOLOGY METHOD 02/16/2025 6:18 PM EDT [facility] Immature Granulocytes Absolute 0.04 0.00 - 0.06 10*3/uL LAB HEMATOLOGY METHOD 02/16/2025 6:18 PM EDT [facility] Blood Venous blood specimen / Unknown Venipuncture / Unknown 02/16/2025 6:10 PM EDT 02/16/2025 6:14 PM EDT Narrative [facility] - 02/16/2025 6:18 PM EDT Therapeutic decision making should be based on absolute values, rather than percentages. us Maximus Ambrocio DO LAB BLOOD ORDERABLES Final Res ult [facility] [address] [place] [address] * (ABNORMAL) Comprehensive Metabolic Panel, Plasma (02/16/2025 6:10 PM EDT) Glucose, Plasma 102(H) 74 - 99 mg/dL 02/16/2025 6:35 PM EDT [facility] BUN, Plasma 11 8 - 23 mg/dL 02/16/2025 6:35 PM EDT [facility] Creatinine, Plasma 0.57(L) 0.60 - 1.10 mg/dL 02/16/2025 6:35 PM EDT [facility] BUN/Creatinine Ratio 19 02/16/2025 6:35 PM EDT [facility] Sodium, Plasma 126(L) 136 - 145 mmol/L 02/16/2025 6:35 PM EDT [facility] Potassium, Plasma 4.2 3.6 - 4.9 mmol/L 02/16/2025 6:35 PM EDT [facility] Comment:Hemolyzed, result ma y be falsely increased. Chloride, Plasma 91(L) 97 - 107 mmol/L 02/16/2025 6:35 PM EDT [facility] CO2, Plasma 22 22 - 29 mmol/L 02/16/2025 6:35 PM EDT [facility] Anion Gap 13 6 - 16 mmol/L 02/16/2025 6:35 PM EDT [facility] Total Calcium, Plasma 9.7 8.9 - 10.2 mg/dL 02/16/2025 6:35 PM EDT [facility] Total Protein 7.7 6.3 - 7.9 g/dL 02/16/2025 6:35 PM EDT [facility] Albumin, Plasma 4.6 3.5 - 5.2 g/dL 02/16/2025 6:35 PM EDT [facility] AST, Plasma 30 10 - 35 U/L 02/16/2025 6:35 PM EDT [facility] Comment:Hemolyzed, result ma y be falsely increased. ALT, Plasma 22 10 - 35 U/L 02/16/2025 6:35 PM EDT [facility] Alkaline Phosphatase, Plasma 70 46 - 142 U/L 02/16/2025 6:35 PM EDT [facility] Total Bilirubin, Plasma 0.3 0.2 - 1.1 mg/dL 02/16/2025 6:35 PM EDT [facility] eGFRcr 100.4 mL/min/1.7 3m*2 02/16/2025 6:35 PM EDT [facility] Comment:Reported eGFRcr in m L/min/1.73m2 is based the CKD-EPI 2020 equation that does not use a race coefficient. Blood Venous blood specimen / Unknown Venipuncture / Unknown 02/16/2025 6:10 PM EDT 02/16/2025 6:14 PM EDT us MaximusDigital Bloomer [employer] LAB BLOOD ORDERABLES Final Res ult Performing Organization Address City/[facility]/ZIP Co de Phone Number [facility] [address] [place] [address] * (ABNORMAL) APTT (02/16/2025 6:10 PM EDT) aPTT 23(L) 25 - 35 sec 02/16/2025 6:32 PM EDT [facility] Blood Venous blood specimen / Unknown Venipuncture / Unknown 02/16/2025 6:10 PM EDT 02/16/2025 6:14 PM EDT [employer] LAB BLOOD ORDERABLES Final Res ult Performing Organization Address [facility] Co de Phone Number [facility] [address] [place] [address] * Prothrombin Time/INR (02/16/2025 6:10 PM EDT) Prothrombin Time 12.7 12.0 - 14.3 sec 02/16/2025 6:32 PM EDT [facility] INR 1.0 0.9 - 1.1 02/16/2025 6:32 PM EDT [facility] Blood Venous blood specimen / Unknown Venipuncture / Unknown 02/16/2025 6:10 PM EDT 02/16/2025 6:14 PM EDT Narrative [facility] - 02/16/2025 6:32 PM EDT OPTIMAL INR RANGES FOR PATIENT ON ORAL ANTICOAGULANT THERAPY Prevention of venous thromboembolism INR 2.0 to 3.0 In patients with heart disease: Atrial fibrillation INR 2.0 to 3.0 Valvular heart disease INR 2.0 to 3.0 Tissue heart valves INR 2.0 to 3.0 Mechanical prosthetic valves INR 2.5 to 3.5 Prevention of recurrent MN INR 2.5 to 3.5 Emergent [employer] LAB BLOOD ORDERABLES Final Res ult [facility] [address] [place] [address] * Type and Screen (02/16/2025 6:10 PM EDT) ABO/Rh A Positive 02/16/2025 5:59 PM EDT BLOOD BANK Antibody Screen Negative 02/16/2025 5:59 PM EDT BLOOD BANK Specimen Expiration 02/19/2025 23:59 02/16/2025 5:59 PM EDT BLOOD BANK Blood Venous blood specimen / Unknown Venipuncture / Unknown 02/16/2025 6:10 PM EDT 02/16/2025 6:13 PM EDT us Maximus Ambrocio DO LAB BLOOD BANK TEST ORDERABLES Final Result Performing Organization Address [facility] Co de Phone Number BLOOD BANK [address] [place] [address], [place] * CT Head w and wo [...] 5:54 PM by Tanmay Alex MD via [employer] Secure Chat. Drafted by Tanmay Alex MD [...] TOTAL DLP (Dose-Length Product): 743.50 mGy.cm (accession [id number]), 743.50 mGy.cm (accession [id number]), 743.50 mGy.cm (accession [id number]). Please note: The reported value represents the [...] No aneurysm of either internal carotid artery. [place] and Major Peripheral Branches: There [...] TOTAL DLP (Dose-Length Product): 743.50 mGy.cm (accession [id number]),743.50 mGy.cm (accession [id number]), 743.50 mGy.cm (accession [id number]).Please note: The reported value represents the total [...] arteries: Multifocal moderate stenosis at the proximal [id number] of the right vertebral artery. Mild stenosis [...] No aneurysm of either internal carotid artery. [place] and Major Peripheral Branches: There [...] 02/16/2025 5:54 PMby Tanmay Alex MD via [employer] Chat. Drafted by Tanmay Alex MD on [...] 5:54 PM by Tanmay Alex MD via [employer] Chat. Drafted by Tanmay Alex MD on [...] TOTAL DLP (Dose-Length Product): 743.50 mGy.cm (accession [id number]), 743.50 mGy.cm (accession [id number]), 743.50 mGy.cm (accession [id number]). Please note: The reported value represents the [...] No aneurysm of either internal carotid artery. [place] and Major Peripheral Branches: There [...] TOTAL DLP (Dose-Length Product): 743.50 mGy.cm (accession [id number]),743.50 mGy.cm (accession [id number]), 743.50 mGy.cm (accession [id number]).Please note: The reported value represents the total [...] arteries: Multifocal moderate stenosis at the proximal [id number] of the right vertebral artery. Mild stenosis [...] No aneurysm of either internal carotid artery. [place] and Major Peripheral Branches: There [...] 02/16/2025 5:54 PMby Tanmay Alex MD via [employer] Secure Chat. Drafted by Tanmay Alex MD on 02/16/2025 5:51 PM Final report signed by Tanmay Alex MD on 02/16/2025 6:18 PM us Kami Amin DO IMG CT PROCEDURES Final Resul t * CT Angio Head (02/16/2025 3:41 PM EDT) Anatomical Region Laterality Modality [place] Computed Tomogr aphy Impressions 02/16/2025 [...] 5:54 PM by Tanmay Alex MD via [employer] Secure Chat. Drafted by Tanmay Alex MD [...] TOTAL DLP (Dose-Length Product): 743.50 mGy.cm (accession [id number]), 743.50 mGy.cm (accession [id number]), 743.50 mGy.cm (accession [id number]). Please note: The reported value represents the [...] No aneurysm of either internal carotid artery. [place] and Major Peripheral Branches: There [...] TOTAL DLP (Dose-Length Product): 743.50 mGy.cm (accession [id number]),743.50 mGy.cm (accession [id number]), 743.50 mGy.cm (accession [id number]).Please note: The reported value represents the total [...] arteries: Multifocal moderate stenosis at the proximal [id number] of the right vertebral artery. Mild stenosis [...] No aneurysm of either internal carotid artery. [place] and Major Peripheral Branches: There [...] 02/16/2025 5:54 PMby Tanmay Alex MD via [employer] Secure Chat. Drafted by Tanmay Alex MD on 02/16/2025 5:51 PM Final report signed by Tanmay Alex MD on 02/16/2025 6:18 PM us Kami Amin DO IMG CT PROCEDURES Final Resul t * CBC (02/16/2025 3:07 PM EDT) WBC Count 8.72 3.70 - 10.30 10*3/uL LAB HEMATOLOGY METHOD 02/16/2025 3:14 PM EDT [facility] RBC Count 4.57 3.90 - 5.20 10*6/uL LAB HEMATOLOGY METHOD 02/16/2025 3:14 PM EDT [facility] HGB 13.0 11.2 - 15.7 g/dL LAB HEMATOLOGY METHOD 02/16/2025 3:14 PM EDT [facility] HCT 37.9 34.0 - 45.0 % LAB HEMATOLOGY METHOD 02/16/2025 3:14 PM EDT [facility] Platelet Count 363 155 - 369 10*3/uL LAB HEMATOLOGY METHOD 02/16/2025 3:14 PM EDT [facility] MCV 83 79 - 98 fL LAB HEMATOLOGY METHOD 02/16/2025 3:14 PM EDT [facility] MCH 28.4 26.0 - 32.0 pg LAB HEMATOLOGY METHOD 02/16/2025 3:14 PM EDT [facility] MCHC 34.3 30.7 - 35.5 g/dL LAB HEMATOLOGY METHOD 02/16/2025 3:14 PM EDT [facility] RDW 12.6 11.5 - 14.5 % LAB HEMATOLOGY METHOD 02/16/2025 3:14 PM EDT [facility] MPV 8.8 8.8 - 12.5 fL LAB HEMATOLOGY METHOD 02/16/2025 3:14 PM EDT [facility] nRBC 0.0 <=0.0 per 100 WBCs LAB HEMATOLOGY METHOD 02/16/2025 3:14 PM EDT [facility] Blood Venous blood specimen / Unknown Venipuncture / Unknown 02/16/2025 3:07 PM EDT 02/16/2025 3:11 PM EDT us Kami Amin DO LAB BLOOD ORDERABLES Final Re sult [facility] [address] [place] [address] * (ABNORMAL) CMP (02/16/2025 3:07 PM EDT) Glucose, Plasma 119(H) 74 - 99 mg/dL 02/16/2025 3:48 PM EDT [facility] BUN, Plasma 12 8 - 23 mg/dL 02/16/2025 3:48 PM EDT [facility] Creatinine, Plasma 0.57(L) 0.60 - 1.10 mg/dL 02/16/2025 3:48 PM EDT [facility] BUN/Creatinine Ratio 21 02/16/2025 3:48 PM EDT [facility] Sodium, Plasma 132(L) 136 - 145 mmol/L 02/16/2025 3:48 PM EDT [facility] Potassium, Plasma 4.3 3.6 - 4.9 mmol/L 02/16/2025 3:48 PM EDT [facility] Chloride, Plasma 90(L) 97 - 107 mmol/L 02/16/2025 3:48 PM EDT [facility] CO2, Plasma 22 22 - 29 mmol/L 02/16/2025 3:48 PM EDT [facility] Anion Gap 20(H) 6 - 16 mmol/L 02/16/2025 3:48 PM EDT [facility] Total Calcium, Plasma 9.7 8.9 - 10.2 mg/dL 02/16/2025 3:48 PM EDT [facility] Total Protein 7.7 6.3 - 7.9 g/dL 02/16/2025 3:48 PM EDT [facility] Albumin, Plasma 4.6 3.5 - 5.2 g/dL 02/16/2025 3:48 PM EDT [facility] AST, Plasma 22 10 - 35 U/L 02/16/2025 3:48 PM EDT [facility] Comment:Hemolyzed, result ma y be falsely increased. ALT, Plasma 21 10 - 35 U/L 02/16/2025 3:48 PM EDT [facility] Alkaline Phosphatase, Plasma 70 46 - 142 U/L 02/16/2025 3:48 PM EDT [facility] Total Bilirubin, Plasma 0.3 0.2 - 1.1 mg/dL 02/16/2025 3:48 PM EDT [facility] eGFRcr 100.4 mL/min/1.7 3m*2 02/16/2025 3:48 PM EDT [facility] Comment:Reported eGFRcr in m L/min/1.73m2 is based the CKD-EPI 2020 equation that does not use a race coefficient. Blood Venous blood specimen / Unknown Venipuncture / Unknown 02/16/2025 3:07 PM EDT 02/16/2025 3:11 PM EDT us Kami Amin DO LAB BLOOD ORDERABLES Final Re sult [facility] [address] [place] [address] * (ABNORMAL) POCT glucose meter (02/16/2025 2:42 [...] Comment 02/16/2025 2:43 PM EDT [facility] Special Events Driver ID Farzaneh Naomi 02/16/2025 2:43 PM EDT [facility] Device ID [id number] 02/16/2025 2:43 PM EDT [facility] Specimen Type POC Capillary 02/16/2025 2:43 PM EDT [facility] Blood Capillary blood specimen / Unknown 02/16/2025 2:42 PM EDT 02/16/2025 2:43 PM EDT us Generic Provider Poct LAB POINT OF CARE TEST DOCKED DEVICE UNSOLICITED RESULTS Final Result [facility] [address] [place] [address] documented in this encounter Visit Diagnoses Diagnosis [...] 1,500 mg lidocaine-EPINEPHrine (PF) (Xylocaine W/EPI) 1 %-1:[id number] injection As needed, Starting on Sun02/24/25 at [...] Unit(Inpatient) 0606 (Given - Provider: Gian Taylor, SKY)1211 (Given [...] Routine 0000 (Dose Auto Held - Provider: Madhuridarlyn Mooney MD)0708 (Unheld by provider - Provider: [...] RN)2218 (Given - Provider: Gian Taylor RN) levETIRAcetam [...] Sun02/18/25 at 0900, Until Discontinued, Routine 0504 ([facility] Unhold - Provider: Automatic Transfer Provider)0921 (Not Given - Provider: Sherin Bynum RN - Reason: Patient/family refused)2218 (Given - Provider: Gian Taylor RN) 1019 (Not Given - Provider: Sherin Bynum RN [...] RN)2218 (Given - Provider: Gian Taylor, SKY) 0947 (Given - Provider: Sherin Bynum RN)203 (Not Given - Provider: Kathleen Linn RN [...] 1019 (Canceled Entry - Provider: Sherin Bynum RN)203 [...] lock IV (CANCELED) Once, On Sun02/16/25 at 2136, For 1 occurrence And sodium chloride 0.9 [...] Intravenous, Every 6 hours PRN, Starting on 02/16/25 at 2136, Until Sun02/27/25 [...] documented as of this encounter Care Teams Attache Relationship Specialty Start Date End Date Caroline Shultz APRN [facility] [place] [address] PCP - General 09/22/24 documented as of this encounter
--- OUTSIDE RECORDS SUMMARY | 2025-03-09 13:42 | XMS_ITS | Encounter Summary ---
Author Organization [facility] Address [address] [place] [address] Care Team Providers Care Auditor Name Role Phone Caroline Shultz APRN Primary Care Provider +1- [phone] Reason for Referral * Radiation Therapy (Routine) - Pending Review Specialty Diagnoses / Procedures Referred By Contac t Referred To Contact Radiation Oncology Diagnoses Oligodendroglioma (CMS/HCC) Procedures Rad Onc Intent to Treat Miguel Perez MD [address] [address] Phone: tel: fax: [facility] [address] [place] [phone] Phone: tel: fax: Referral ID Status Reason Start Date Expiration Date Visits Requested Visits Authorized [id number] Pending Review Perform Procedure 03/09/2025 09/08/2026 1 1 * Consultation (Routine) - Closed Specialty Diagnoses / Procedures Referred By Contac t Referred To Contact Radiation Oncology Diagnoses Brain mass Anaya Felton APRN [address] [address] Phone: tel: fax: [facility] [address] [place] [phone] Phone: tel: fax: Referral ID Status Reason Start Date Expiration Date V isits Requested Visits Authorized [id number] Closed Specialty Services Required 02/25/2025 08/27/2026 1 1 Reason for Visit * Reason Comments Consult * Consultation (Routine) - Closed Specialty Diagnoses / Procedures Referred By Contac t Referred To Contact Radiation Oncology Diagnoses Brain mass Anaya Felton APRN [address] [address] Phone: tel: fax: [facility] [address] [address] Phone: tel: fax: Referral ID Status Reason Start Date Expiration Date V isits Requested Visits Authorized [id number] Closed Specialty Services Required 02/25/2025 08/27/2026 1 1 Encounter Details Date Type Department Care Team (Latest Contact Info) Description 03/09/2025 1:42 PM EDT Hospital Encounter [facility] [address] [address] Miguel Perez MD [address] [address] Oligodendroglioma (CMS/HCC) (Primary Dx) Social History Tobacco Use Types Packs/Day Years Used Date Smoking Tobacco: Never Smokeless Tobacco: Never Tobacco Cessation:Counseling Given: Not Answered Alcohol Use Standard Drinks/Week Comments Never 0 [...] any time in the past 12 m onths, were you homeless or living in a nursing home (including now)? No 09/23/2024 Humiliation, Afraid, Rape, [...] any time in the past [address] [facility], were you homeless or living in a nursing home (including now)? No 02/19/2025 Utilities Answer Date [...] Sign Reading Time Taken Comments Blood Pressure 125/80 03/09/2025 3:14 PM EDT Pulse 63 03/09/2025 3:14 PM EDT Temperature - - Respiratory Rate 16 03/09/2025 3:14 PM EDT Oxygen Saturation 98% 03/09/2025 3:14 PM EDT Inhaled Oxygen Concentration - - Weight 113 kg (248 lb 14.4 oz) 03/09/2025 3:14 P M EDT Height - - Body Mass Index 40.17 02/16/2025 2:45 PM EDT documented in this encounter Miscellaneous Notes * Progress Notes - Kemal Panda MD - 03/09/2025 2:20 PM EDT Images from the original note were not included. Disclaimer to patients: The Century Cares Act makes medical notes like these available to patients in the interest of transparency. However, please be advised that this is still a medical document. It is intended as ynkv-kb-vuxa communication. Many sections may include medical language or jargon, abbreviations, and additional verbiage that are unfamiliar or confusing. In some ways it may come across as blunt, direct, or may be summarized in order to clearly and concisely communicate the most crucial information to emergency medical service manager. Medical documents are intended to carry relevant information, facts as evident, and the personal clinical opinion of the physician. 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 right handed female with history of HTN, T2DM, depression, GERD with history of expressive aphasia and was found to have a newly discovered left temporal insular mass. Patient proceeded to the operating room on 02/24/25 and underwent left temporal craniotomy for tumor resection. Patient was started on dexamethasone taper and 2 weeks of Keppra for seizure prophylaxis. Surgical pathology is pending at the time of discharge. Patient presents to clinic today in regards to adjuvant radiotherapy. Patient vocalizes that she was incorrectly diagnosed with a stroke earlier this year and such delayed work up and care of her brain tumors. Patient reports history of new onset right sided weakness, word finding difficulties and memory fog. Patient is recovering well from surgery and reports improvement in word finding and ability to complete ADLs. Radiation History: History of prior radiation: No History of auto-immune disease: No History of connective tissue disorder: No Pacemaker: No Able to lay flat:Yes Transportation available: Yes PAST MEDICAL HISTORY: Past Medical History[1] PAST SURGICAL HISTORY: Surgical History[2] MEDICATIONS: Current Medications[3] ALLERGIES: Allergies[4] SOCIAL HISTORY: Social History[5] FAMILY HISTORY: Family History[6] KPS: 70 ROS: Review of Systems Constitutional: Positive for fatigue. Negative for diaphoresis and fever. Respiratory: Negative for shortness of breath. Cardiovascular: Negative for chest pain and palpitations. Gastrointestinal: Negative for abdominal pain, nausea and vomiting. Genitourinary: Negative for bladder incontinence. Musculoskeletal: Negative for back pain and neck pain. Neurological: Negative for dizziness, headaches and light-headedness. Psychiatric/Behavioral: Negative for confusion. PHYSICAL EXAM: Vital Signs: Visit Vitals BP 125/80 Pulse 63 Resp 16 Wt 113 kg (248 lb 14.4 oz) SpO2 98% BMI 40.17 kg/m?? OB Status Postmenopausal Smoking Status Never BSA 2.29 m?? Physical Exam Constitutional: Appearance: She is normal weight. Comments: Patient is ambulating with wheelchair HENT: Head: Comments: Right sided post-operative scar healing Cardiovascular: Rate and Rhythm: Normal rate. Pulmonary: Effort: Pulmonary effort is normal. Abdominal: General: Abdomen is flat. Palpations: Abdomen is soft. Skin: General: Skin is warm and dry. Neurological: Mental Status: She is alert. Coordination: Coordination normal. Gait: Gait normal. Comments: Word difficulty is apparent with speech Psychiatric: Mood and Affect: Mood normal. Behavior: Behavior normal. 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 appearance is mostconsistent with primary brain neoplasm such as glioblastoma or other high-grade glioma. Microscopic Description IHC: [id number] (wild type) A3-5 ATRX positive (wild type) All controls show appropriate reactivity. All immunohistochemistry, in situ hybridization, and histochemical tests were developed by and are performed at the [facility], [address] [place] [address]. All tests reported here, except those addressing [...] likelihood of false negativity on decalcified specimens. Gross Description A. BRAIN TUMOR SONOPET CONTENTS Received fresh and placed in formalin labeled brain tumor Sonopet contents?? are multiple pieces of pink-garcia soft tissue [...] cassette A1. Cold Time: 9h 02m Rosibel Stevnes IMAGING: Heterogeneously enhancing mass again noted in the left posterior insula and extending to the posterior aspect of left temporal lobe and left temporal stem. The mass measures 4.9 x 2.9 cm in the axialplane (image 14 series 15) and 4.1 cm in the craniocaudal dimension (image 17 series 16). There is central nonenhancement noted within the mass and some corresponding susceptibility artifact compatible with internal hemorrhage. The solid components of the mass demonstrate restricted diffusion consistent with hypercellularity. The mass is hypointense on T1-weighted imaging and slightly hyperintense on T2-weighted imaging. There is mass effect with mild effacement of the left lateral ventricle and about 2 mm rightward midline shift. The basal cisterns are preserved. No evidence of hydrocephalus. Mild T2 hyperintensity adjacent to the mass which may be related to edema and/or infiltrating nonenhancing tumor. Assessment and Plan: Herminia Murrell is a 64 y.o. female with brain mass s/p craniotomy and resection. Post-operative MRI demonstrates residual tumor around the operative bed. 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 Patient is 64 yo with subtotal resection from surgery with pending results from the [facility] which may demonstrate a distinct mutation. One exam patient continues to demonstrate word finding difficulty and gaetano are still in place with removal expected on March 16. We planto offer patient adjuvant chemoradiation especially in the setting of no targetable mutations per [facility]. Patient will be scheduled for CT simulation scheduled for March 17 after clearance from neurosurgery. Herminia Murrell has a life threatening diagnosis which warrants urgent treatment The benefits, risks, and possible side effects of external beam radiation therapy were discussed with patient who voiced understanding, all questions were answered, and consent will be obtained. We discussed the rationale for including radiation as part of the treatment approach. No guarantees as to the outcome of the treatments discussed were made. I reviewed the practicalities of radiation and the typical radiation treatment course. Based on these anticipated targets, we reviewed the typical radiation course, including potential early and late side toxicities. No guarantees about the likelypresence or absence of any treatment toxicity were made. I spent approximately 80 minutes in consultation, of which 45 were spent counseling the patient. Thank you for allowing us to participate in the care of this very pleasant patient. Please do not hesitate to contact me should any questions arise. Thank you for allowing us to participate in the care of Herminia Murrell. The patient has been counseled on tobacco cessation: Not Applicable Future Appointments Date Time Provider Department Center 03/16/2025 9:30 AM Sanchez Zaldivar [facility] 03/17/2025 1:00 PM Miguel Perez MD [facility] 03/23/2025 1:45 PM [facility] RN [facility] 03/23/2025 2:00 PM Chente Sebastian MD [facility] Orders Placed This Encounter Procedures Ambulatory referral to Radiation Oncology Kemal Panda MD, PGY-2 Resident Physician, Radiation Oncology [facility] Pager: [phone] [1] Past Medical History: Diagnosis Date Brain bleed (CMS/HCC) 09/02/2024 Small, went to ER Headache Hypertension [2] Past Surgical History: Procedure Laterality Date BREAST LUMPECTOMY Bilateral 2002 CRANIOTOMY Left 02/24/2025 [3] Current Outpatient Medications: lisinopril 40 MG tablet, Take 0.5 tablets by mouth 2 times a day., Disp: , Rfl: nebivolol (Bystolic) 5 MG tablet, Take 1 tablet by mouth daily., Disp: , Rfl: NIFEdipine CC (Adalat CC) 30 MG 24 hr tablet, Take 1 tablet by mouth daily. Do not crush, chew, or split., Disp: 30 tablet, Rfl: 1 omeprazole (PriLOSEC) [address] capsule, Take 1 capsule by mouth every morning. Do not crush or chew., Disp: , Rfl: sertraline (Zoloft) 50 MG tablet, Take 1 tablet by mouth daily., Disp: , Rfl: acetaminophen (Tylenol) 500 MG tablet, Take 2 tablets by mouth every 6 hours., Disp: 100 tablet, Rfl: 0 [Paused] aspirin 81 MG EC tablet, Take 1 tablet by mouth every morning., Disp: , Rfl: coenzyme Q-10 200 MG tablet, Take 2 tablets by mouth daily., Disp: , Rfl: cyclobenzaprine (Flexeril) 5 MG tablet, Take 1 tablet by mouth 3 times a day as needed for muscle spasms., Disp: 30 tablet, Rfl: 0 dexamethasone (Decadron) 4 MG tablet, Take 1 tablet by mouth 4 times a day for 1 day, THEN 1 tablet3 times a day for 2 days, THEN 1 tablet 2 times a day for 3 days, THEN 0.5 tablets 2 times a day for 2 days., Disp: 18 tablet, Rfl: 0 fish oil ([place]-3) 500 MG capsule, Take 2,400 mg by mouth daily. (Patient not taking: Reported on 03/09/2025), Disp: , Rfl: levETIRAcetam (Keppra) 500 MG tablet, Take 3 tablets by mouth 2 times a day., Disp: 180 tablet, Rfl: 11 Magnesium Bisglycinate (MAG GLYCINATE PO), Take 800 mg by mouth every night., Disp: , Rfl: Probiotic Product (PROBIOTIC PO), Take 1 capsule by mouth 1 (one) time each day. Provitalize's synergistic probiotic-herb blend, Disp: , Rfl: rosuvastatin (Crestor) 10 MG tablet, Take 1 tablet by mouth daily for 14 days., Disp: 14 tablet, Rfl: 0 selenium 200 MCG tablet, Take 1 tablet by mouth daily., Disp: , Rfl: UNABLE TO FIND, Med Name: Cod liver oil, 1000mg once daily, Disp: , Rfl: UNABLE TO FIND, Med Name: Cyruta Plus, twice a day, Disp: , Rfl: [4] Allergies Allergen Reactions Codeine Nausea [5] Social History Tobacco Use Smoking status: Never Smokeless tobacco: Never Substance Use Topics Alcohol use: Never Comment: No alcohol at all Drug use: Never [6] No family history on file. Cosigned by Miguel Perez MD at 03/12/2025 11:44 AM EDT Associated attestation - Miguel Perez MD - 03/12/2025 11:44 AM EDT I saw and evaluated the patient with the resident/fellow. I discussed the case with the resident/fellow and agree with the findings and plan as documented. documented in this encounter Plan of Treatment Upcoming Encounters Date Type Department Care Team (Late st Contact Info) Description 03/17/2025 1:00 PM EDT Appointment [facility] [address] [place] [address] Miguel Perez MD [address] [place] [address] 03/23/2025 1:45 PM EDT Clinical Support [facility] 800 [facility], [address] [place] [phone] 03/23/2025 2:00 PM EDT Office Visit [facility] 800 [facility], [address] [place] [phone] Chente Sebastian MD 800 [facility] [address] [place] [address] Scheduled Orders Name Type Priority Associated Diagnoses Orde r Schedule Rad Onc Intent to Treat Radiation Oncology Routine Oligodendroglioma (CMS/HCC) Expected: 03/09/2025, Expires: 09/10/2026 Scheduled Referrals Name Type Priority Associated Diagnoses Order Schedule Ambulatory referral to Radiation Oncology Outpatient Referral Routine Once for 1 Occurrences starting 03/09/2025 until 03/09/2025 documented as of this encounter Visit Diagnoses Diagnosis Oligodendroglioma (CMS/HCC)- Primary Malignant neoplasm of brain, unspecified site documented in this encounter Additional Health Concerns Assessment Noted Time PHQ-9 Depression Total Score: 6 10/08/19 2:13 PM EST A fall risk assessment has been complete d for the patient 03/09/2025 3:55 PM EDT A Body Mass Index follow-up plan has been documented for the patient 02/27/2025 10:32 AM EDT documented as of this encounter Care Teams Auditor Relationship Specialty Start Date End Date Caroline Shultz APRN [address] [place] [address] PCP - General 09/22/24 documented as of this encounter
--- OUTSIDE RECORDS SUMMARY | 2025-03-09 15:20 | XMS_ITS | Encounter Summary ---
Author Organization [facility] Address [address] [place] [address] Care Team Providers Care Hydrogen Power Plant Manager Name Role Phone Caroline Shultz APRN Primary Care Provider +1- [phone] Reason for Visit * Reason Comments New Patient * Consultation (Routine) - Closed Specialty Diagnoses / Procedures Referred By Contact Referred To Contact Medical Oncology / Hematology and Oncology Diagnoses Brain mass Anaya Felton APRN [address] [facility] [address] [place] [address] Phone: tel:[phone] fax:[phone] [facility] [address] [place] [address] Phone: tel: fax: Referral ID Status Reason Start Date Expiration Date V isits Requested Visits Authorized [id number] Closed Specialty Services Required 02/26/2025 08/28/2026 1 1 Encounter Details Date Type Department Care Team ([facility] Contact Info) Description 03/09/2025 3:20 PM EDT Office Visit Pav CC Head, Neck & Respiratory [address] [facility], 2nd [place] [address] Chente Sebastian MD [address] [facility] [address] [place] [address] Social History Tobacco Use Types Packs/Day Years [...] any time in the past 12 m [facility], were you homeless or living in a residential (including now)? No 09/23/2024 Humiliation, Afraid, Rape, [...] any time in the past 12 m [facility], were you homeless or living in a residential (including now)? No 02/19/2025 Utilities Answer Date Recorded In the past 12 months has e electric, gas, oil, or water company [...] Sign Reading Time Taken Comments Blood Pressure 104/68 03/09/2025 3:55 PM EDT Pulse 60 03/09/2025 3:55 PM EDT Temperature 36.6 C (97.8 F) 03/09/2025 3:55 PM EDT Respiratory Rate 16 03/09/2025 3:55 PM EDT Oxygen Saturation 98% 03/09/2025 3:55 PM EDT Inhaled Oxygen Concentration - - Weight 112 kg (246 lb 14.6 oz) 03/09/2025 3:55 P M EDT Height 167.6 cm (5' 6 ) 03/09/2025 3:55 PM EDT Body Mass Index 39.85 03/09/2025 3:55 PM EDT documented in this encounter Plan of Treatment Upcoming Encounters Date Type Department Care Team ([facility] st Contact Info) Description 03/17/2025 1:00 PM EDT Appointment PAV CC Radiation [address] [facility]. [id number] [place] [address] Miguel Perez MD [address] [facility] [address] [place] [address] 03/23/2025 1:45 PM EDT Clinical Support Pav CC Head, Neck & Respiratory [address] [facility], 2nd [place] [address] 03/23/2025 2:00 PM EDT Office Visit Pav CC Head, Neck & Respiratory [address] [facility], 2nd [place] [address] Chente Sebastian MD [address] [facility] [address] [place] [address] documented as of this encounter Visit Diagnoses Not on filedocumented in this encounter Additional Health Concerns Assessment Noted Time PHQ-9 Depression Total Score: 6 10/08/19 2:13 PM EST A fall risk assessment has been complete d for the patient 03/09/2025 3:55 PM EDT A Body Mass Index follow-up plan has been documented for the patient 02/27/2025 10:32 AM EDT documented as of this encounter Care Teams Hydrogen Power Plant Manager Relationship Specialty Start Date End Date Caroline Shultz APRN [address] [place] [address] PCP - General 09/22/24 documented as of this encounter
[2025-03-11 15:30] LABS: Anion Gap 11.4 mEq/L (5-15); Blood Urea Nitrogen 21 mg/dl (7-17); Calcium 9.6 mg/dl (8.4-10.2); Carbon Dioxide 27 mmol/L (22.0-30.0); Chloride 97 mmol/L (98-107); Creatinine,Serum 0.60 mg/dl (0.52-1.04); Estimated Glomerular Filt Rate 100 ml/min (>60); GFR (African American) 121 ML/MIN (>60); Glucose 106 mg/dl (74-100); Potassium 4.4 mmoL/L (3.5-5.1); Sodium 131 mmol/L (136-145)
--- OUTSIDE RECORDS SUMMARY | 2025-03-16 09:30 | XMS_ITS | Encounter Summary ---
Author Organization Healthcare Address [address] [place] [address] Care Team Providers Care Mail Room Clerk Name Role Phone Caroline Shultz APRN Primary Care Provider +1- [phone] Encounter Details Date Type Department Care Team (Late st Contact Info) Description 03/16/2025 9:30 AM EDT Office Visit [place] [facility] [address], 1st [place] [address] Sanchez Zaldivar MD [address] [place] [address] Arrived Social History Tobacco Use Types Packs/Day Years [...] any time in the past 12 m [facility], were you homeless or living in a custodial (including now)? No 09/23/2024 Humiliation, Afraid, Rape, [...] any time in the past 12 m [facility], were you homeless or living in a custodial (including now)? No 02/19/2025 Utilities Answer Date [...] 9:46 AM EDT documented in this encounter Plan of Treatment Upcoming Encounters Date Type Department Care Team (Late st Contact Info) Description 03/17/2025 1:00 PM EDT Appointment PAV CC Radiation [address] [facility]. [id number] [place] [address] Miguel Perez MD [address] [facility] [address] [place] [address] 03/23/2025 1:45 PM EDT Clinical Support Pav CC Head, Neck & Respiratory [address] [facility], 2nd [place] [address] 03/23/2025 2:00 PM EDT Office Visit Pav CC Head, Neck & Respiratory [address] [facility], [address]nd [place] [address] Chente Sebastian MD [address] [facility] [address] [place] [address] documented as of this encounter Visit Diagnoses [...] documented as of this encounter Care Teams Mail Room Clerk Relationship Specialty Start Date End Date Caroline Suhltz APRN [address] [place] [address] (work) PCP - General 09/22/24 documented as of this encounter
--- OUTSIDE RECORDS SUMMARY | 2025-03-16 12:04 | XMS_ITS | Encounter Summary ---
Author Organization Healthcare Address [address] [place] [address] Care Team Providers Care Balloon Artist Name Role Phone Carrington Caroline Campbell APRN Primary Care Provider +1- [phone] Encounter Details Date Type Department Care Team (Latest Contact Info) Description 02/25/2025 Travel Social History Tobacco Use Types Packs/Day Years [...] any time in the past 12 m [facility], were you homeless or living in a retirement (including now)? No 09/23/2024 Humiliation, Afraid, Rape, [...] any time in the past 12 m [facility], were you homeless or living in a retirement (including now)? No 02/19/2025 Utilities Answer Date [...] on file documented as of this encounter Plan of Treatment Upcoming Encounters Date Type Department Care Team (Late st Contact Info) Description 03/17/2025 1:00 PM EDT Appointment PAV CC Radiation [id number] [place] [address] Miguel Perez MD [address] [place] [address] 03/23/2025 1:45 PM EDT Clinical Support Pav CC Head, Neck & Respiratory 800 [facility], 2nd [place] [address] 03/23/2025 2:00 PM EDT Office Visit Pav CC Head, Neck & Respiratory [address] [facility], 2nd [place] [address] Chente Sebastian MD [address] [facility] [address] [place] [address] documented as of this encounter Visit Diagnoses [...] documented as of this encounter Care Teams Balloon Artist Relationship Specialty Start Date End Date Caroline Shultz APRN [address] [place] [address] PCP - General 09/22/24 documented as of this encounter
--- OUTSIDE RECORDS SUMMARY | 2025-03-16 12:04 | XMS_ITS | Encounter Summary ---
Author Organization Healthcare Address [address] [place] [address] Care Team Providers Care Print Journalist Name Role Phone Carrington Caroline Campbell APRN Primary Care Provider +1- [phone] Encounter Details Date Type Department Care Team (Latest Contact Info) Description 02/26/2025 Travel Social History Tobacco Use Types Packs/Day [...] any time in the past 12 m [facility], were you homeless or living in a senior living (including now)? No 09/23/2024 Humiliation, Afraid, Rape, [...] any time in the past 12 m [facility], were you homeless or living in a senior living (including now)? No 02/19/2025 Utilities Answer Date [...] Appointment PAV CC Radiation [id number] [place] [address] Miguel Perez MD [address] [place] [address] 03/23/2025 1:45 PM EDT Clinical Support Pav CC Head, Neck & Respiratory [address] [facility], 2nd [place] [address] 03/23/2025 2:00 PM EDT Office Visit Pav CC Head, Neck & Respiratory [address] [facility], [address]nd [place] [address] Chente Sebastian MD [address] [facility] [address] [place] [address] documented as of this encounter Visit Diagnoses [...] documented as of this encounter Care Teams Print Journalist Relationship Specialty Start Date End Date Caroline Shultz APRN [address] [place] [address] PCP - General 09/22/24 documented as of this encounter
--- OUTSIDE RECORDS SUMMARY | 2025-03-16 12:04 | XMS_ITS | Encounter Summary ---
Author Organization Healthcare Address [address] [place] [address] Care Team Providers Care Glass Cutter Name Role Phone Carrington Caroline Campbell APRN Primary Care Provider +1- [phone] Encounter Details Date Type Department Care Team (Latest Contact Info) Description 03/16/2025 Travel Social History Tobacco Use Types Packs/Day [...] were you homeless or living in a skilled nursing (including now)? No 09/23/2024 Humiliation, Afraid, Rape, [...] were you homeless or living in a skilled nursing (including now)? No 02/19/2025 Utilities Answer Date [...] Appointment PAV CC Radiation [id number] [place] [address] Miguel Perez MD [address] [place] [address] 03/23/2025 1:45 PM EDT Clinical Support Pav CC Head, Neck & Respiratory [address] [facility], 2nd [place] [address] 03/23/2025 2:00 PM EDT Office Visit Pav CC Head, Neck & Respiratory [address] [facility], 2nd [place] [address] Chente Sebastian MD [address] [facility] [address] [place] [address] documented as of this encounter Visit Diagnoses [...] documented as of this encounter Care Teams Glass Cutter Relationship Specialty Start Date End Date Caroline Shultz APRN [address] [place] [address] PCP - General 09/22/24 documented as of this encounter
--- OUTSIDE RECORDS SUMMARY | 2025-03-16 12:04 | XMS_ITS | Encounter Summary ---
Author Organization Healthcare Address [address] [place] [address] Care Team Providers Care Pickling Drum Operator Name Role Phone Carrington Caroline Campbell APRN Primary Care Provider +1- [phone] Encounter Details Date Type Department Care Team (Latest Contact Info) Description 03/12/2025 Travel Social History Tobacco Use Types Packs/Day [...] time in the past 12 m [facility], were you homeless or living in a care home (including now)? No 09/23/2024 Humiliation, Afraid, [...] time in the past 12 m [facility], were you homeless or living in a care home (including now)? No 02/19/2025 Utilities Answer [...] Appointment [facility] [id number] [place] [address] Miguel Perez MD [address] [place] [phone] 03/23/2025 1:45 PM EDT Clinical Support [facility] [address] [facility], 2nd [place] [address] 03/23/2025 2:00 PM EDT Office Visit [facility] [address] [facility], 2nd [place] [address] Chente Sebastian MD [address] [facility] [address] [place] [address] documented as of this encounter Visit Diagnoses [...] documented as of this encounter Care Teams Pickling Drum Operator Relationship Specialty Start Date End Date Caroline Shultz APRN [address] [place] [address] PCP - General 09/22/24 documented as of this encounter
--- OUTSIDE RECORDS SUMMARY | 2025-03-16 12:05 | XMS_ITS | Encounter Summary ---
Author Organization Healthcare Address [address] [place] [address] Care Team Providers Care Chief Operator Hydroformer Name Role Phone Carrington Caroline Campbell APRN Primary Care Provider +1- [phone] Encounter Details Date Type Department Care Team (Latest Contact Info) Description 02/27/2025 Travel Social History Tobacco Use Types Packs/Day [...] Appointment [facility] [id number] [place] [address] Miguel Perez MD [address] [place] [address] 03/23/2025 1:45 PM EDT Clinical Support [facility] [address] [facility], [address]nd [place] [address] 03/23/2025 2:00 PM EDT Office Visit [facility] [address] [facility], [address]nd [place] [address] Chente Sebastian MD [address] [facility] [address] [place] [address] documented as of this encounter Visit Diagnoses [...] documented as of this encounter Care Teams Chief Operator Hydroformer Relationship Specialty Start Date End Date Caroline Shultz APRN [address] [place] [address] PCP - General 09/22/24 documented as of this encounter
--- OUTSIDE RECORDS SUMMARY | 2025-03-16 12:06 | XMS_ITS ---
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 Facial droop 02/26/2025 Assessment & Plan (02/26/2025 11:15 AM EDT): - Keppra started outpatient by Neurology but [...] Normotensive - Sodium Goals: Normonatremia - recommend PT/OT/MARINE SUPERINTENDENT evaluation - No indication to obtain echo with most recently obtained on 09/2024 - follow-up w/[facility] in 8-12 weeks following discharge Focal seizure 02/26/2025 Assessment & Plan (02/26/2025 11:15 AM EDT): - Keppra started outpatient by Neurology but [...] Normotensive - Sodium Goals: Normonatremia - recommend PT/OT/MARINE SUPERINTENDENT evaluation - No indication to obtain echo with most recently obtained on 09/2024 - follow-up w/[facility] in 8-12 weeks following discharge Acute right-sided weakness 02/26/2025 Assessment & Plan (02/26/2025 11:15 AM EDT): - Keppra started outpatient by Neurology but [...] Normotensive - Sodium Goals: Normonatremia - recommend PT/OT/MARINE SUPERINTENDENT evaluation - No indication to obtain echo with most recently obtained on 09/2024 - follow-up w/[facility] Neurology Clinic in 8-12 weeks following discharge Hyperglycemia 02/19/2025 Assessment & Plan (02/26/2025 7:32 AM EDT): - likely steroid related - A1c 5.7 - Insulin SQ sliding scale - Continue to monitor - consider Diabetic diet as needed Assessment & Plan (02/25/2025 7:19 AM EDT): - likely steroid related - A1c 5.7 - Insulin SQ sliding scale - Continue to monitor - consider Diabetic diet as needed Assessment & Plan (02/24/2025 6:14 AM EDT): - likely steroid related - A1c pending - Insulin SQ sliding scale - Continue to monitor - consider Diabetic diet as needed Assessment & Plan (02/23/2025 7:10 AM EDT): - likely steroid related - A1c pending - Insulin SQ sliding scale - Continue to monitor - consider Diabetic diet as needed Assessment & Plan (02/22/2025 11:46 AM EDT): - likely steroid related - A1c pending - Insulin SQ sliding scale - Continue to monitor - consider Diabetic diet as needed Assessment & Plan (02/21/2025 7:59 AM EDT): - likely steroid related - A1c pending - Insulin SQ sliding scale - Continue to monitor - consider Diabetic diet as needed Assessment & Plan (02/20/2025 7:38 AM EDT): - likely steroid related - A1c pending - Insulin SQ sliding scale - Continue to monitor - consider Diabetic diet as needed Assessment & Plan (02/19/2025 12:52 PM EDT): - likely steroid related - A1c pending - Insulin SQ sliding scale - Continue to monitor - consider Diabetic diet as needed Obesity, Class III, BMI 40-49.9 (morbid obesity) 02/18/2025 Assessment & Plan (02/26/2025 11:34 AM EDT): - Body mass index is 40.46 kg/m . - Complicates all aspects of care and recovery Assessment & Plan (02/25/2025 12:29 PM EDT): - Body mass index is 40.21 kg/m . - Complicates all aspects of care and recovery Assessment & Plan (02/24/2025 11:08 AM EDT): - Body mass index is 40.92 kg/m . - Complicates all aspects of care and recovery Assessment & Plan (02/23/2025 7:32 AM EDT): - Body mass index is 41.88 kg/m . - Complicates all aspects of care and recovery Assessment & Plan (02/22/2025 11:46 AM EDT): - Body mass index is 41.38 kg/m . - Complicates all aspects of care and recovery Assessment & Plan (02/21/2025 7:59 AM EDT): - Body mass index is 42.02 kg/m . - Complicates all aspects of care and recovery Assessment & Plan (02/20/2025 11:48 AM EDT): - Body mass index is 42.02 kg/m . - Complicates all aspects of care and recovery Assessment & Plan (02/19/2025 12:55 PM EDT): - Body mass index is 41.97 kg/m . - Complicates all aspects of care and recovery Assessment & Plan (02/18/2025 12:56 PM EDT): - Body mass index is 41.97 kg/m . - Complicates all aspects of care and recovery Expressive aphasia 02/18/2025 Assessment & Plan (02/26/2025 11:32 AM EDT): - MRI head w/w/o - 02/24/25 s/p [...] would like to follow here at the [facility]. - final treatment planning pending final [...] in the hallway 3 times a day Assessment & Plan (02/25/2025 12:29 PM EDT): - MRI head w/w/o - 02/24/25 s/p [...] in the hallway 3 times a day Assessment & Plan (02/24/2025 6:14 AM EDT): - MRI head w/w/o - IV dex [...] for tumor resection - npo at midnight Assessment & Plan (02/23/2025 7:10 AM EDT): - MRI head w/w/o - IV dex [...] for tumor resection - npo at midnight Assessment & Plan (02/22/2025 11:46 AM EDT): - MRI head w/w/o - IV dex [...] tumor resection 02/23 - npo at midnight Assessment & Plan (02/21/2025 7:59 AM EDT): - MRI head w/w/o - IV dex [...] able - plan for operative intervention 02/23 Assessment & Plan (02/20/2025 7:38 AM EDT): - MRI head w/w/o - IV dex [...] able - plan for operative intervention 02/23 Assessment & Plan (02/19/2025 7:57 AM EDT): - MRI head w/w/o - IV dex [...] able - plan for operative intervention 02/23 Assessment & Plan (02/18/2025 12:13 PM EDT): - MRI head w/w/o - IV dex [...] intervention 02/23 History of CVA (cerebrovascular accident) 2024 Assessment & Plan (02/26/2025 7:32 AM EDT): - holding ASA and plavix for surgical intervention - continue statin Assessment & Plan (02/25/2025 7:10 AM EDT): - holding ASA and plavix for surgical intervention - continue statin Assessment & Plan (02/24/2025 6:14 AM EDT): - holding ASA and plavix for surgical intervention - continue statin Assessment & Plan (02/23/2025 7:10 AM EDT): - holding ASA and plavix for surgical intervention - continue statin Assessment & Plan (02/22/2025 11:46 AM EDT): - holding ASA and plavix for surgical intervention - continue statin Assessment & Plan (02/21/2025 7:59 AM EDT): - holding ASA and plavix for surgical intervention - continue statin Assessment & Plan (02/20/2025 7:38 AM EDT): - holding ASA and plavix for surgical intervention - continue statin Assessment & Plan (02/19/2025 7:57 AM EDT): - holding ASA and plavix for surgical intervention - continue statin Assessment & Plan (02/18/2025 8:27 AM EDT): - holding ASA and plavix for surgical intervention - continue statin GERD (gastroesophageal reflux disease) Assessment & Plan (02/26/2025 7:32 AM EDT): - takes omeprazole at home - pantoprazole while inpatient Assessment & Plan (02/25/2025 7:10 AM EDT): - takes omeprazole at home - pantoprazole while inpatient Assessment & Plan (02/24/2025 6:14 AM EDT): - takes omeprazole at home - pantoprazole while inpatient Assessment & Plan (02/23/2025 7:10 AM EDT): - takes omeprazole at home - pantoprazole while inpatient Assessment & Plan (02/22/2025 11:46 AM EDT): - takes omeprazole at home - pantoprazole while inpatient Assessment & Plan (02/21/2025 7:59 AM EDT): - takes omeprazole at home - pantoprazole while inpatient Assessment & Plan (02/20/2025 7:38 AM EDT): - takes omeprazole at home - pantoprazole while inpatient Assessment & Plan (02/19/2025 7:57 AM EDT): - takes omeprazole at home - pantoprazole while inpatient Assessment & Plan (02/18/2025 6:53 AM EDT): - takes omeprazole at home - pantoprazole while inpatient Depression 02/18/2025 Assessment & Plan (02/26/2025 7:32 AM EDT): - resume sertraline Assessment & Plan (02/25/2025 7:10 AM EDT): - resume sertraline Assessment & Plan (02/24/2025 6:14 AM EDT): - resume sertraline Assessment & Plan (02/23/2025 7:10 AM EDT): - resume sertraline Assessment & Plan (02/22/2025 11:46 AM EDT): - resume sertraline Assessment & Plan (02/21/2025 7:59 AM EDT): - resume sertraline Assessment & Plan (02/20/2025 7:38 AM EDT): - resume sertraline Assessment & Plan (02/19/2025 7:57 AM EDT): - resume sertraline Assessment & Plan (02/18/2025 6:53 AM EDT): - resume sertraline Hyponatremia 02/18/2025 Assessment & Plan (02/26/2025 11:15 AM EDT): - Na 132 on admission. As low as 125 - holding hydrochlorothiazide - continue to monitor - continue fluid restriction - will recommend follow up with PCP - Hospital Medicine consulted, recommendations from 02/25 - Since September 2024 sodium has ranged [...] complicates the interpretation of urine studies. Given that we have been holding this, and Na has remained largely stable despite an attempt at a fluid restriction. 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 As low as 125 - holding hydrochlorothiazide - continue to monitor - started fluid restriction - Hospital Medicine consulted, recommendations from 02/25 - Since September 2024 sodium has ranged [...] complicates the interpretation of urine studies. Given that we have been holding this, and Na has remained largely stable despite an attempt at a fluid restriction. 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 As low as 125 - holding hydrochlorothiazide - continue to monitor - started fluid restriction - Hospital Medicine consulted, recommendations from 02/22 - Since midSeptember 2024 sodium has ranged from 127-134 - [...] pending OR to avoid further sodium wasting. Assessment & Plan (02/23/2025 7:12 AM EDT): - Na 132 on admission. As low as 125 - holding hydrochlorothiazide - continue to monitor - started fluid restriction - Hospital Medicine consulted, recommendations from 02/22 - Since September 2024 sodium has ranged [...] pending OR to avoid further sodium wasting. Assessment & Plan (02/22/2025 11:46 AM EDT): - Na 132 on admission. As low [...] less likely to need correction before OR Assessment & Plan (02/21/2025 7:59 AM EDT): - Na 132 on admission. As low [...] less likely to need correction before OR Assessment & Plan (02/20/2025 7:38 AM EDT): - Na 132 on admission. As low [...] less likely to need correction before OR Assessment & Plan (02/19/2025 12:52 PM EDT): - Na 132 on admission. As low as 125 - holding hydrochlorothiazide - continue to monitor - started fluid restriction - Hospital Medicine consulted, recommendations appreciated Assessment & Plan (02/18/2025 12:13 PM EDT): - Na 132 on admission. As low as 125 - continue to monitor - started fluid restriction Electrolyte disturbance 02/18/2025 Assessment & Plan (02/26/2025 7:32 AM EDT): - Hypophosphatemia - Hypomagnesemia - will replace per sliding scale protocol - continue to monitor - follow up labs Assessment & Plan (02/25/2025 7:10 AM EDT): - Hypophosphatemia - Hypomagnesemia - will replace per sliding scale protocol - continue to monitor - follow up labs Assessment & Plan (02/24/2025 6:14 AM EDT): - Hypophosphatemia - Hypomagnesemia - will replace per sliding scale protocol - continue to monitor - follow up labs Assessment & Plan (02/23/2025 7:10 AM EDT): - Hypophosphatemia - Hypomagnesemia - will replace per sliding scale protocol - continue to monitor - follow up labs Assessment & Plan (02/22/2025 11:46 AM EDT): - Hypophosphatemia - Hypomagnesemia - will replace per sliding scale protocol - continue to monitor - follow up labs Assessment & Plan (02/21/2025 7:59 AM EDT): - Hypophosphatemia - Hypomagnesemia - will replace per sliding scale protocol - continue to monitor - follow up labs Assessment & Plan (02/20/2025 7:38 AM EDT): - Hypophosphatemia - Hypomagnesemia - will replace per sliding scale protocol - continue to monitor - follow up labs Assessment & Plan (02/19/2025 7:57 AM EDT): - Hypophosphatemia - Hypomagnesemia - will replace per sliding scale protocol - continue to monitor - follow up labs Assessment & Plan (02/18/2025 8:27 AM EDT): - Hypophosphatemia - Hypomagnesemia - will replace per sliding scale protocol - continue to monitor - follow up labs Brain tumor (benign) 02/16/2025 Assessment & Plan (02/26/2025 11:32 AM EDT): - MRI head w/w/o - 02/24/25 s/p [...] would like to follow here at the [facility]. - final treatment planning pending final [...] in the hallway 3 times a day Assessment & Plan (02/25/2025 12:29 PM EDT): - MRI head w/w/o - 02/24/25 s/p [...] in the hallway 3 times a day Assessment & Plan (02/24/2025 6:14 AM EDT): - MRI head w/w/o - IV dex [...] for tumor resection - npo at midnight Assessment & Plan (02/23/2025 7:10 AM EDT): - MRI head w/w/o - IV dex [...] for tumor resection - npo at midnight Assessment & Plan (02/22/2025 11:46 AM EDT): - MRI head w/w/o - IV dex [...] tumor resection 02/23 - npo at midnight Assessment & Plan (02/21/2025 7:59 AM EDT): - MRI head w/w/o - IV dex [...] able - plan for operative intervention 02/23 Assessment & Plan (02/20/2025 7:38 AM EDT): - MRI head w/w/o - IV dex [...] able - plan for operative intervention 02/23 Assessment & Plan (02/19/2025 7:57 AM EDT): - MRI head w/w/o - IV dex [...] able - plan for operative intervention 02/23 Assessment & Plan (02/18/2025 12:13 PM EDT): - MRI head w/w/o - IV dex [...] able - plan for operative intervention 02/23 Brain mass 02/16/2025 Assessment & Plan (02/26/2025 11:32 AM EDT): - MRI head w/w/o - 02/24/25 s/p [...] would like to follow here at the [facility]. - final treatment planning pending final [...] in the hallway 3 times a day Assessment & Plan (02/25/2025 12:29 PM EDT): - MRI head w/w/o - 02/24/25 s/p [...] in the hallway 3 times a day Assessment & Plan (02/24/2025 6:14 AM EDT): - MRI head w/w/o - IV dex [...] for tumor resection - npo at midnight Assessment & Plan (02/23/2025 7:10 AM EDT): - MRI head w/w/o - IV dex [...] for tumor resection - npo at midnight Assessment & Plan (02/22/2025 11:46 AM EDT): - MRI head w/w/o - IV dex [...] tumor resection 02/23 - npo at midnight Assessment & Plan (02/21/2025 7:59 AM EDT): - MRI head w/w/o - IV dex 4mg q6hrs - PPI while on steroids - Keppra started outpatient by Neurology but discontinued due to significant drowsiness and no changes in RLE symptoms - functional MRI for speech and motor function - fiducial MRI Ward - C/A/P CT scans negative for metastatic work-up - Hold all anticoagulation and antiplatelet medication - daily bowel regimen - Incentive spirometer q1h while awake - resume home medications as able - Avoid sedating medications as able - plan for operative intervention 02/23 Assessment & Plan (02/20/2025 7:38 AM EDT): - MRI head w/w/o - IV dex [...] able - plan for operative intervention 02/23 Assessment & Plan (02/19/2025 7:57 AM EDT): - MRI head w/w/o - IV dex [...] able - plan for operative intervention 02/23 Assessment & Plan (02/18/2025 12:13 PM EDT): - MRI head w/w/o - IV dex [...] able - plan for operative intervention 02/23 Sensory deficit, right 09/22/2024 Assessment & Plan (02/26/2025 11:32 AM EDT): - MRI head w/w/o - 02/24/25 s/p [...] would like to follow here at the [facility]. - final treatment planning pending final [...] in the hallway 3 times a day Assessment & Plan (02/25/2025 12:29 PM EDT): - MRI head w/w/o - 02/24/25 s/p [...] in the hallway 3 times a day Assessment & Plan (02/24/2025 6:14 AM EDT): - MRI head w/w/o - IV dex [...] for tumor resection - npo at midnight Assessment & Plan (02/23/2025 7:10 AM EDT): - MRI head w/w/o - IV dex [...] for tumor resection - npo at midnight Assessment & Plan (02/22/2025 11:46 AM EDT): - MRI head w/w/o - IV dex [...] resection Sunday, 02/23 - npo at midnight Assessment & Plan (02/21/2025 7:59 AM EDT): - MRI head w/w/o - IV dex [...] able - plan for operative intervention 02/23 Assessment & Plan (02/20/2025 7:38 AM EDT): - MRI head w/w/o - IV dex [...] able - plan for operative intervention 02/23 Assessment & Plan (02/19/2025 7:57 AM EDT): - MRI head w/w/o - IV dex [...] able - plan for operative intervention 02/23 Assessment & Plan (02/18/2025 12:13 PM EDT): - MRI head w/w/o - IV dex [...] - plan for operative intervention Sunday, 02/23 Hypertension Assessment & Plan (02/26/2025 7:32 AM EDT): - resume home medications as appropriate - [...] BP s/p craniotomy - Continue Nifedipine 30 Assessment & Plan (02/25/2025 12:29 PM EDT): - resume home medications as appropriate - [...] BP s/p craniotomy - Continue Nifedipine 30 Assessment & Plan (02/24/2025 11:08 AM EDT): - resume home medications as appropriate - [...] hydrochlorothiazide. Continue nebivolol on day of OR. Assessment & Plan (02/23/2025 7:12 AM EDT): - resume home medications as appropriate - [...] hydrochlorothiazide. Continue nebivolol on day of OR. Assessment & Plan (02/22/2025 11:46 AM EDT): - resume home medications as appropriate - SPB < 140 - prn labetalol and hydralazine - continue to monitor Assessment & Plan (02/21/2025 7:59 AM EDT): - resume home medications as appropriate - SPB < 140 - prn labetalol and hydralazine - continue to monitor Assessment & Plan (02/20/2025 7:38 AM EDT): - resume home medications as appropriate - SPB < 140 - prn labetalol and hydralazine - continue to monitor Assessment & Plan (02/19/2025 7:57 AM EDT): - resume home medications as appropriate - SPB < 140 - prn labetalol and hydralazine - continue to monitor Assessment & Plan (02/18/2025 8:27 AM EDT): - resume home medications as appropriate - SPB < 140 - prn labetalol and hydralazine - continue to monitor Current Treatment and Therapy Plans No current plan information found. Past Treatment and Therapy Plans No past plan information found. Lifetime Dose Tracking * Chemical Lifetime Dose Automatic Entry Manual Entr y Fluoro Time 1.1 minutes 1.1 minutes 0 minutes Air Kerma 98 mGy 98 mGy 0 mGy Air Kerma Area Product 545.22 Gym 545.22 Gym 0 Gym
--- OUTSIDE RECORDS SUMMARY | 2025-03-16 12:06 | XMS_ITS | Encounter Summary ---
Author Organization Healthcare Address [address] [place] [address] Care Team Providers Care Certified Recreational Therapist Name Role Phone Carrington Caroline Campbell APRN Primary Care Provider +1- [phone] Encounter Details Date Type Department Care Team (Latest Contact Info) Description 02/22/2025 Travel Social History Tobacco Use Types Packs/Day [...] in the past 12 m [facility], were you homeless or living in [...] in the past 12 m [facility], were you homeless or living in [...] Appointment [facility] [id number] [place] [address] Miguel Perez MD [address] [place] [id number] 03/23/2025 1:45 PM EDT Clinical Support [facility] [address] [facility], [address]nd [place] [address] 03/23/2025 2:00 PM EDT Office Visit [facility] [address] [facility], [address]nd [place] [address] Chente Sebastian MD [address] [facility] [address] [place] [address] documented as of this encounter Visit Diagnoses [...] documented as of this encounter Care Teams Certified Recreational Therapist Relationship Specialty Start Date End Date Caroline Shultz APRN [address] [place] [address] PCP - General 09/22/24 documented as of this encounter
--- OUTSIDE RECORDS SUMMARY | 2025-03-16 12:06 | XMS_ITS | Encounter Summary ---
Author Organization Healthcare Address [address] [place] [address] Care Team Providers Care Shoe Stamper Name Role Phone Caroline Shultz APRN Primary Care Provider +1- [phone] Encounter Details Date Type Department Care Team (Late st Contact Info) Description 01/27/2025 Orders Only [facility] [address] [place] [address] Bridget Lion, PA [address] [place] [address] Social History Tobacco Use Types Packs/Day Years [...] any time in the past 12 m [facility], were you homeless or living in a longterm (including now)? No 09/23/2024 Utilities Answer Date [...] Upcoming Encounters Date Type Department Care Team ([facility] Contact Info) Description 03/17/2025 1:00 PM EDT Appointment [facility] Radiation [address] [id number] [place] [address] Miguel Perez MD [address] [facility] [address] [place] [address] 03/23/2025 1:45 PM EDT Clinical Support [facility] [address] [facility]nd [place] [address] 03/23/2025 2:00 PM EDT Office Visit Pav [facility] [address] [facility], [address]nd [place] [address] Chente Sebastian MD [address] [facility] [address] [place] [address] documented as of this encounter Visit Diagnoses [...] documented as of this encounter Care Teams Shoe Stamper Relationship Specialty Start Date End Date Caroline Shultz APRN [address] [place] [address] PCP - General 09/22/24 documented as of this encounter
--- OUTSIDE RECORDS SUMMARY | 2025-03-16 12:06 | XMS_ITS | Clinical Summary ---
Author Organization [facility] Address [address] [place] [address] Care Team Providers Care Aeronautical Design Engineer Name Role Phone Caroline Shultz APRN Primary Care Provider [phone] Allergies Active Allergy Reactions Criticality Noted Date Comments Codeine Nausea 09/23/2024 Medications lisinopril 40 MG tablet Take 0.5 tablets by mouth 2 times a day. Active nebivolol (Bystolic) 5 MG tablet Take 1 tablet by mouth daily. Active omeprazole (PriLOSEC) [address] capsule Take 1 capsule by mouth every morning. Do not crush or chew. Active sertraline (Zoloft) 50 MG tablet Take 1 tablet by mouth daily. Active Magnesium Bisglycinate (MAG GLYCINATE PO) Take 800 mg by mouth every night. Active Probiotic Product (PROBIOTIC PO) Take 1 capsule by mouth 1 (one) time each day. Provitalize's synergistic probiotic-herb blend Active aspirin 81 MG EC tablet Take 1 tablet by mouth every morning. Active fish oil (Newton-3) 500 MG capsule Take 2,400 mg by mouth daily. Active coenzyme Q-10 200 MG tablet Take 2 tablets by mouth daily. Active selenium 200 MCG tablet Take 1 tablet by mouth daily. Active UNABLE TO FIND Med Name: Cod liver oil, 1000mg once daily Active UNABLE TO FIND Med Name: Cyruta Plus, twice a day Active rosuvastatin (Crestor) 10 MG tabletIndicatio ns:Acute ischemic left middle cerebral artery (MCA) stroke (CMS/HCC) Take 1 tablet by mouth daily for 14 days. 14 tablet 02/17/20 25 Active levETIRAcetam (Keppra) 500 MG tablet Take 3 tablets by mouth 2 times a day. 180 tablet 11 02/28/20 25 2025 Active cyclobenzaprine (Flexeril) 5 MG tablet Take 1 tablet by mouth 3 times a day as needed for muscle spasms. 30 tablet 02/28/20 25 Active acetaminophen (Tylenol) 500 MG tablet Take 2 tablets by mouth every 6 hours. 100 tablet 02/28/20 25 Active NIFEdipine CC (Adalat CC) 30 MG 24 hr tablet Take 1 tablet by mouth daily. Do not crush, chew, or split. 30 tablet 1 02/28/20 25 2024 Active dexamethasone (Decadron) 4 MG tablet Take 1 tablet by mouth 4 times a day for 1 day, THEN 1 tablet 3 times a day for 2 days, THEN 1 tablet 2 times a day for 3 days, THEN 0.5 tablets 2 times a day for 2 days. 18 tablet 02/28/20 25 Active UNABLE TO FIND Take 1 each by mouth 1 (one) time each day. Med Name: Jihan Cullen 1000mg 2024 Discontinued(E ntered in Error) hydroCHLOROthia zide (HYDRODiuril) 25 MG tablet Take 1 tablet by mouth 2 times a day. 2024 Discontinued(S top Taking at Discharge) fluticasone (Flonase) 50 MCG/ACT nasal spray Administer 1 spray into each nostril 1 (one) time each day if needed for rhinitis. Shake gently. Before first use, prime pump. After use, clean tip and replace cap. 2024 Discontinued(E ntered in Error) levETIRAcetam (Keppra) 500 MG tablet Take 3 tablets (1,500 mg) by mouth 2 (two) times a day. 180 tablet 09/25/19 25 2024 Discontinued atorvastatin (Lipitor) 40 MG tablet Take 1 tablet (40 mg) by mouth every night. 30 tablet 09/25/19 25 2024 Discontinued b complex vitamins capsule Take 1 capsule by mouth 1 (one) time each day. 2024 Discontinued(E ntered in Error) ascorbic acid (vitamin C) 1000 MG tablet Take 1 tablet (1,000 mg) by mouth 1 (one) time each day. 2024 Discontinued(E ntered in Error) clopidogrel (Plavix) 75 MG tablet Take 1 tablet by mouth every morning. 90 tablet 01/28/20 25 2024 Discontinued(S top Taking at Discharge) atorvastatin (Lipitor) 40 MG tablet Take 1 tablet by mouth daily. 2024 Discontinued(E ntered in Error) atorvastatin (Lipitor) 40 MG tablet Take 1 tablet by mouth daily. 2024 Discontinued(E ntered in Error) NIFEdipine XL (Adalat CC) 30 MG 24 hr tablet Take 1 tablet by mouth daily. Do not crush, chew, or split. 30 tablet 1 02/28/20 25 2024 Discontinued NIFEdipine CC (Adalat CC) 30 MG 24 hr tablet Take 1 tablet by mouth daily. Do not crush, chew, or split. 30 tablet 1 02/28/20 25 2024 Discontinued Active Problems Problem Noted Date Diagnosed Date [...] Normotensive - Sodium Goals: Normonatremia - recommend PT/OT/LEGAL SUPPORT SPECIALIST evaluation - No indication to obtain echo [...] Normotensive - Sodium Goals: Normonatremia - recommend PT/OT/LEGAL SUPPORT SPECIALIST evaluation - No indication to obtain echo [...] Normotensive - Sodium Goals: Normonatremia - recommend PT/OT/LEGAL SUPPORT SPECIALIST evaluation - No indication to obtain echo [...] would like to follow here at the [facility]. - final treatment planning pending final [...] would like to follow here at the [facility]. - final treatment planning pending final [...] would like to follow here at the [facility]. - final treatment planning pending final [...] - plan for operative intervention Sunday, 02/23 Sensory deficit, right 09/22/2024 Assessment & [...] would like to follow here at the [facility]. - final treatment planning pending final [...] labetalol and hydralazine - continue to monitor Encounters Date Type Department Care Team Description 03/16/2025 9:30 AM EDT Office Visit [place] [facility] [address] [place] [address] Sanchez Zaldivar MD Arrived 03/16/2025 Travel 03/12/2025 Travel 03/09/2025 3:20 PM EDT Office Visit [facility] [address] [place] [address] Chente Sebastian MD 03/09/2025 1:42 PM EDT Hospital Encounter [facility] [address] [facility] [place] [address] Miguel Perez MD Oligodendroglioma (CMS/HCC) (Primary Dx) 03/09/2025 Travel 03/07/2025 Travel 03/05/2025 Telephone [facility] [address] [place] [address] Sheba Fisher R, TREE FRUIT AND NUT FARMING SUPERVISOR 03/03/2025 Telephone [facility] [address] [facility] [place] [address] Chente Sebastian MD 03/03/2025 Orders Only [facility] [address] [facility] [place] [address] Chente Sebastian MD Glioma of brain (CMS/HCC) (Primary Dx) 03/02/2025 Telephone [place] [facility] [address], [address] [place] [id number] Sanchez Zaldivar MD 02/27/2025 Travel 02/26/2025 Travel 02/25/2025 Travel 02/24/2025 5:55 PM EDT - 02/24/2025 10:45 PM EDT Surgery [facility] A OPERATING ROOM [address] [place] [address] Sanchez Zaldivar MD LEFT CRANIOTOMY, FOR INTRACRANIAL NEOPLASM EXCISION 02/24/2025 5:34 PM EDT Anesthesia Event [facility] OPERATING RO[facility] [address] [place] [id number] Alessandro Medina DO Rock, Holly R, PA 02/22/2025 Travel 02/18/2025 Travel 02/16/2025 3:08 PM EDT - 02/27/2025 2:24 PM EDT Hospital Encounter [facility] A Inpatient [address] [place] [address] Maximus Ambrocio, Ned Wong MD Mirza, Farhan A, MD Brain mass (Primary Dx); Hyponatremia; Hypertension, unspecified type; Focal seizure (CMS/HCC); Facial droop; Expressive aphasia; Acute right-sided weakness; Sensory deficit, right Discharge Disposition: Home or Self Care 02/16/2025 10:00 AM EDT Office Visit [facility] [address] [place] [address] Bridget Lion PA Aphasia (Primary Dx); Acute ischemic left middle cerebral artery (MCA) stroke (CMS/HCC) 02/16/2025 Travel 02/15/2025 Travel 01/27/2025 Orders Only [facility] [address] [place] [address] Bridget Lion PA 01/21/2025 8:40 AM EDT Office Visit [facility] [address], [address] [place] [address] Bridget Lion PA Acute ischemic left middle cerebral artery (MCA) stroke (CMS/HCC) (Primary Dx); Sensory deficit, right 01/21/2025 Travel 01/14/2025 Travel 12/16/2024 Telephone [facility] [address] [place] [address] Hien Francisco MD from Last 3 Months Immunizations Immunization Administration Dates Next Due MMR 10/19/1995 Tdap 05/31/2019 Zoster, Recombinant 06/05/2018 Social History Tobacco Use Types Packs/Day Years [...] any time in the past 12 [facility], were you homeless or living in [...] any time in the past 12 m [facility], were you homeless or living in [...] on file Sexual Orientation Not on file Last Filed Vital Signs Vital Sign Reading Time Taken Comments Blood Pressure 106/71 03/16/2025 9:46 AM EDT Pulse 82 03/16/2025 9:46 AM EDT Temperature 36.6 C (97.8 F) 03/09/2025 3:55 PM EDT Respiratory Rate 16 03/09/2025 3:55 PM EDT Oxygen Saturation 92% 03/16/2025 9:46 AM EDT Inhaled Oxygen Concentration - - Weight 114 kg (251 lb 12.3 oz) 03/16/2025 9:46 A M EDT Height 167.6 cm (5' 6 ) 03/16/2025 9:46 AM EDT Body Mass Index 40.64 03/16/2025 9:46 AM EDT Plan of Treatment Upcoming Encounters Date Type Department Care Team (Late st Contact Info) Description 03/17/2025 1:00 PM EDT Appointment [facility] [address] [facility] [place] [address] Miguel Perez MD [address] [facility] [address] [place] [address] 03/23/2025 1:45 PM EDT Clinical Support [facility] [address] [place] [address] 03/23/2025 2:00 PM EDT Office Visit [facility] [address] [facility] [place] [address] Chente Sebastian MD [address] [facility] [address] [place] [address] Health Maintenance Due Date Last Done Comments [facility]-Bone Density Scan 1960 [facility]-/Child/Adol SDOH Screenings 1960 Diabetes: Dental Exam 1968 [facility]-Pneumococcal Vaccine: 50+ Years (1 of 2 - PCV) 1977 CT Colonography 2003 Colonoscopy 2003 FIT-DNA 2003 FIT 2003 FOBT 2003 Sigmoidoscopy 2003 [facility]-Colorectal Cancer Screening 2003 [facility]-Breast Cancer Screening 2008 [facility]-RSV Vaccine: 60+ Years or (1 - Risk 60-74 years 1-dose series) 2018 [facility]-Zoster Vaccines (2 of 2) 07/31/2018 06/05/2018 [id number] Vaccine (4 - season) 2024 07/14/2021, 10/08/2020, 09/08/2020 [facility]-Influenza Vaccine (#1) 2025 [facility]-Diabetes: Hemoglobin A1C 08/19/2025 02/19/2025, 09/25/2024 [facility]- SDOH Screenings 08/21/2025 [facility]-Adult SDOH Screenings 08/21/2025 02/19/2025 [facility]-Depression Screening 10/08/2025 10/08/2024, 09/11 [facility]-DTaP,Tdap,and Td Vaccines (2 - Td or Tdap) 05/31/2029 05/31/2019 [facility]-Hepatitis C Screening Completed 09/22/2024 [facility]-Obesity Intervention Completed 025, 02/16/2025, 01/21/2025, Additional history exists HPV Vaccines Aged Out No longer eligi ble based on patient's age to complete this topic [facility]-HIB Vaccines Aged Out No longer e ligible based on patient's age to complete this topic [facility]-Hepatitis A Vaccines Aged Out No longer eligible based on patient's age to complete this topic [facility]-IPV Vaccines Aged Out No longer e ligible based on patient's age to complete this topic [facility]-Rotavirus Vaccines Aged Out No lo nger eligible based on patient's age to complete this topic Medical Devices Implanted Type Area Coil Maker Device Identifier Shelf Expiration Date Model / Serial / Lot Graft Dura Repair 2x2 Synthecel - [id number] Implanted:Qty: 1 on 02/24/2025 by Sanchez Zaldivar MD at [facility]-[id number] 09/09/2026 [id number] / / [id number] Cover, Neuro Maryann Lp 17mm - [id number] Implanted:Qty: 3 on 02/24/2025 by Sanchez Zaldivar MD at [id number] / / Plate, 2 Hole Low Profile - [id number] Implanted:Qty: 1 on 02/24/2025 by Sanchez Zaldivar MD at [facility]-[id number] / / Screw Ti Matrixneuro Selfdrill 4mm - [id number] Implanted:Qty: 15 on 02/24/2025 by Sanchez Zaldivar MD at [id number] / / Procedures Procedure Name Priority Date/Time Associated Diagnosis [...] 2 HOUR STAT 02/26/2025 8:26 AM EDT PROTHROMBIN TIME(PT) / INR STAT 02/26/2025 8:26 AM EDT APTT STAT 02/26/2025 8:26 AM EDT CBC WITH [...] WO IV CONTRAST STAT 7:59 AM EDT PHOSPHORUS, PLASMA Routine 02/26/2025 4: 23 AM EDT MAGNESIUM, PLASMA Routine 02/26/2025 4:2 3 AM EDT BASIC METABOLIC PANEL, PLASMA Routine 02/26/2025 4:23 AM EDT CBC W/O DIFFERENTIAL Routine 02/26/2025 4:23 AM EDT BASIC METABOLIC PANEL, PLASMA Routine 02/25/2025 12:14 PM EDT MR HEAD W AND WO IV CONTRAST Routine 02/25/2025 4:40 AM EDT POCT GLUCOSE METER UNSOLICITED RESULTS Routine 02/25/2025 12:08 AM EDT SURGICAL PATHOLOGY EXAM Routine 02/24/2025 9:04 PM EDT Brain mass CARIS MT TUMOR SEEK HYBRID + IHCS AND OTHER TESTS BY TUMOR TYPE Routine 02/24/2025 9:04 PM EDT Glioma of brain (CMS/HCC) FISH, PARAFFIN 1P/19Q Pending Discharge 02/24/2025 9:04 PM EDT Brain mass BLOOD GAS PANEL, ARTERIAL STAT 02/24/2025 7:23 PM EDT PB ANESTHESIA NON-TIMED PROCEDURE PLACEHOLDER Routine 02/24/2025 6:09 PM EDT ANESTHESIA PERIPHERAL IV PLACEMENT Routine 02/24/2025 6:09 PM EDT PB ANESTHESIA PLACEHOLDER Routine 02/24/2025 5:38 PM EDT CA AN ELECTIVE ENDOTRACHEAL AIRWAY Routine 02/24/2025 5:38 PM EDT CRANIOTOMY, FOR INTRACRANIAL NEOPLASM EXCISION 02/24/2025 5:19 PM EDT Brain mass BASIC METABOLIC PANEL, PLASMA STAT 02/24/2025 6:42 AM EDT BASIC METABOLIC PANEL, PLASMA Routine 02/24/2025 4:13 AM EDT CBC WITH AUTO DIFFERENTIAL Routine 02/23/2025 5:11 PM EDT COMPREHENSIVE METABOLIC PANEL, PLASMA Routine 02/23/2025 5:11 PM EDT APTT Routine 02/23/2025 5:11 PM EDT PROTHROMBIN TIME(PT) / INR Routine 02/23/2025 5:11 PM EDT TYPE AND SCREEN Routine 02/23/2025 5:11 PM EDT POCT GLUCOSE [...] UNSOLICITED RESULTS Routine 02/22/2025 3:40 PM EDT CBC W/O DIFFERENTIAL Routine 02/22/2025 12:45 PM EDT BASIC METABOLIC PANEL, PLASMA STAT 02/22/2025 12:45 PM EDT MAGNESIUM, PLASMA Routine 02/22/2025 12:45 PM EDT PHOSPHORUS, PLASMA Routine 02/22/2025 12:45 PM EDT PROTHROMBIN TIME(PT) / INR Routine 02/22/2025 12:45 PM EDT APTT Routine 02/22/2025 12:45 PM EDT SODIUM, PLASMA Timed 02/22/2025 12:45 PM EDT POCT GLUCOSE METER [...] UNSOLICITED RESULTS Routine 02/19/2025 7:59 PM EDT HEMOGLOBIN A1C Routine 02/19/2025 4:17 PM EDT SODIUM, PLASMA Timed 02/19/2025 4:17 PM EDT POCT GLUCOSE METER UNSOLICITED RESULTS Routine 02/19/2025 3:42 PM EDT POCT GLUCOSE METER UNSOLICITED RESULTS Routine 02/19/2025 12:00 PM EDT CREATININE, RANDOM URINE Routine 02/19/2025 11:50 AM EDT OSMOLALITY, URINE Routine 02/19/2025 11:50 AM EDT SODIUM, URINE, RANDOM Routine 02/19/2025 11:50 AM EDT ECG ADULT Routine 02/19/2025 11:42 AM EDT OSMOLALITY, SERUM Add-On 02/19/2025 4:0 3 AM EDT PHOSPHORUS, PLASMA Routine 02/19/2025 4: 03 AM EDT MAGNESIUM, PLASMA Routine 02/19/2025 4:0 3 AM EDT BASIC METABOLIC PANEL, PLASMA Routine 02/19/2025 4:03 AM EDT SODIUM, PLASMA Timed 02/19/2025 4:03 AM EDT SODIUM, PLASMA Timed 02/18/2025 3:27 PM EDT MR BRAIN NEUROFUNCTIONAL TEST W PHYSICIAN ADMINISTRATION Routine 02/18/2025 12:29 PM EDT COMPREHENSIVE METABOLIC PANEL, PLASMA STAT 02/18/2025 8:54 AM EDT PHOSPHORUS, PLASMA STAT 02/18/2025 8: 54 AM EDT MAGNESIUM, PLASMA STAT 02/18/2025 8:5 4 AM EDT CBC W/O DIFFERENTIAL Routine 02/16/2025 9:51 PM EDT BASIC METABOLIC PANEL, PLASMA Routine 02/16/2025 9:51 PM EDT MAGNESIUM, PLASMA Routine 02/16/2025 9:5 1 PM EDT PHOSPHORUS, PLASMA Routine 02/16/2025 9: 51 PM EDT PROTHROMBIN TIME(PT) / INR Routine 02/16/2025 9:51 PM EDT APTT Routine 02/16/2025 9:51 PM EDT ANTI XA LEVEL UNFRACTIONATED HEPARIN Routine 02/16/2025 9:51 PM EDT MR HEAD W AND WO IV CONTRAST Routine 02/16/2025 9:[address] ABDOMEN PELVIS W IV CONTRAST STAT 02/16/2025 7:[address] CHEST W IV CONTRAST STAT 7:49 PM EDT PLATELET P2Y12 RECEPTOR BLOCKADE, VERIFY NOW PRU Routine 02/16/2025 7:25 PM EDT CBC WITH AUTO DIFFERENTIAL Routine 02/16/2025 6:10 PM EDT COMPREHENSIVE METABOLIC PANEL, PLASMA Routine 02/16/2025 6:10 PM EDT APTT Routine 02/16/2025 6:10 PM EDT PROTHROMBIN TIME(PT) / INR Routine 02/16/2025 6:10 PM EDT TYPE AND SCREEN Routine 02/16/2025 6:[address] HEAD W AND WO IV CONTRAST STAT 02/16/2025 3:[address] ANGIO NECK STAT 02/16/2025 3:[address] ANGIO HEAD STAT 02/16/2025 3:41 PM EDT CBC W/O DIFFERENTIAL STAT 02/16/2025 3:07 PM EDT COMPREHENSIVE METABOLIC PANEL, PLASMA STAT 02/16/2025 3:07 PM EDT POCT GLUCOSE METER UNSOLICITED RESULTS Routine 02/16/2025 2:42 PM EDT HEPATITIS C ANTIBODY - ED W/REFLEX TO HCV QUANT PCR STAT 09/22/2024 10:51 AM EST from Last 3 Months or Most Recently Relevant to Health Maintenance Results * EEG (02/27/2025 9:21 AM EDT) Anatomical Region Laterality Modality EEG Narrative 02/27/2025 12:11 PM EDT Table formatting from the original result was not included. Electroencephalogram Report Patient: Herminia Murrell : 1960 SEX: female Referring Provider: [...] tablet 1,000 mg 1,000 mg Oral q6h [facility] John Bhat MD 1,000 mg at 02/27/25 [...] daily Michael Jain A 4 mg at 02/27/25 0839 Followed [...] mg 1,500 mg Oral BID Anaya Felton T[employer] FR[employer]UT FARMING SUPERVISOR 1,500 mg at 02/27/25 0839 lisinopril tablet 20 mg 20 mg Oral BID Anaya Felton [employer] FARMING SUPERVISOR 20 mg at 02/27/25 0839 nebivolol (Bystolic) tablet 5 mg 5 mg Oral Daily Ranjana Yu MD 5 mg at 02/27/25 0839 NIFEdipine XL (Procardia XL) 24 hr tablet 30 mg 30 mg Oral Daily Anaya Felton [employer] FARM[employer] SUPERVISOR 30 mg at 02/27/25 0839 ondansetron ODT [...] PRN Katharine Oreilly MD us Anaya Felton APRN NEUROLOGY ORDERABLES Final R esult * (ABNORMAL) Basic metabolic panel (02/27/2025 8:59 AM EDT) Only the most recent of9 resultswithin the time period is included. Glucose, Plasma 95 74 - 99 mg/dL 02/27/2025 9:40 AM EDT [facility] BUN, Plasma 21 8 - 23 mg/dL 02/27/2025 9:40 AM EDT [facility] Creatinine, Plasma 0.64 0.60 - 1.10 mg/dL 02/27/2025 9:40 AM EDT [facility] BUN/Creatinine Ratio 33 02/27/2025 9:40 AM EDT [facility] Sodium, Plasma 132(L) 136 - 145 mmol/L 02/27/2025 9:40 AM EDT [facility] Potassium, Plasma 4.2 3.6 - 4.9 mmol/L 02/27/2025 9:40 AM EDT [facility] Chloride, Plasma 97 97 - 107 mmol/L 02/27/2025 9:40 AM EDT [facility] CO2, Plasma 23 22 - 29 mmol/L 02/27/2025 9:40 AM EDT [facility] Anion Gap 12 6 - 16 mmol/L 02/27/2025 9:40 AM EDT [facility] Total Calcium, Plasma 9.2 8.9 - 10.2 mg/dL 02/27/2025 9:40 AM EDT [facility] eGFRcr 97.6 mL/min/1.7 3m*2 02/27/2025 9:40 AM EDT [facility] Comment:Reported eGFRcr in m L/min/1.73m2 is based the CKD-EPI 2020 equation that does not use a race coefficient. Blood Venous blood specimen / Unknown Venipuncture / Unknown 02/27/2025 8:59 AM EDT 02/27/2025 9:08 AM EDT us Ede Ruiz MD LAB BLOOD ORDERABLES Final R esult Performing Organization Address [facility]/ZIP Co de Phone Number [facility] [address] [place] [address] * Troponin T, High Sensitivity, 2 Hour, Plasma (02/26/2025 11:08 AM EDT) Troponin T, High Sensitivity, 2 Hour 8 <14 ng/L 02/26/2025 11:43 AM EDT [facility] Blood Venous blood specimen / Unknown Venipuncture / Unknown 02/26/2025 11:08 AM EDT 02/26/2025 11:15 AM EDT us Ned Menendez MD LAB BLOOD ORDERABLES Final Res ult Performing Organization Address [facility]/[place] Co de Phone Number [facility] [address] [place] [address] * ECG Adult (02/26/2025 9:51 AM EDT) Only the most recent of2 resultswithin the time period is included. EKG DIAGNOSIS CLASS Normal MUSE ECG Ventricular Rate 73 BPM MUSE ECG Atrial Rate 73 BPM MUSE ECG CA Interval 176 ms MUSE ECG QRSD Interval 80 ms MUSE ECG QT Interval 380 ms MUSE ECG QTC Interval 418 ms MUSE ECG P Duncan 9 degrees MUSE ECG R Duncan 0 degrees MUSE ECG T Wave Duncan 27 degrees MUSE ECG Diagnosis Normal sinus rhythm MUSE ECG Diagnosis MUSE ECG Diagnosis MUSE ECG Diagnosis Confirmed by Tasneem Ludwig ([id number]) on 02/27/2025 10:30:15 AM MUSE ECG 02/26/2025 9:51 AM EDT 02/27/2025 10:30 AM EDT us Ned Menendez MD ECG ORDERABLES Final Result Performing Organization Address [facility] de Phone Number MUSE ECG * Troponin T, High Sensitivity, 0 Hour Plasma, Reflex to 2 Hour (02/26/2025 8:26 AM EDT) Troponin T, High Sensitivity, 0 Hour 11 <14 ng/L 02/26/2025 9:08 AM EDT [facility] Blood Venous blood specimen / Unknown Venipuncture / Unknown 02/26/2025 8:26 AM EDT 02/26/2025 8:38 AM EDT us Ned Menendez MD LAB BLOOD ORDERABLES Final Res ult Performing Organization Address [facility] de Phone Number [facility] [address] [place] [address] * APTT (02/26/2025 8:26 AM EDT) Only the most recent of5 resultswithin the time period is included. aPTT 28 25 - 35 sec LAB COAGULATION METHOD 02/26/2025 9:01 AM EDT [facility] Blood Venous blood specimen / Unknown Venipuncture / Unknown 02/26/2025 8:26 AM EDT 02/26/2025 8:38 AM EDT [facility] Ned Menendez MD LAB BLOOD ORDERABLES Final Res ult Performing Organization Address [facility] de Phone Number [facility] [address] [place] [address] * Protime-INR (02/26/2025 8:26 AM EDT) Only the most recent of5 resultswithin the time period is included. Prothrombin Time 13.4 12.0 - 14.3 sec LAB COAGULATION METHOD 02/26/2025 9:01 AM EDT [facility] INR 1.0 0.9 - 1.1 LAB COAGULATION METHOD 02/26/2025 9:01 AM EDT [facility] Blood Venous blood specimen / Unknown Venipuncture / Unknown 02/26/2025 8:26 AM EDT 02/26/2025 8:38 AM EDT Narrative [facility] - 02/26/2025 9:01 AM EDT OPTIMAL [...] MD LAB BLOOD ORDERABLES Final Res ult [facility] [address] [place] [address] * (ABNORMAL) CBC and differential (02/26/2025 8:26 AM EDT) Only the most recent of3 resultswithin the time period is included. WBC Count 14.93(H) 3.70 - 10.30 10*3/uL LAB HEMATOLOGY METHOD 02/26/2025 8:45 AM EDT [facility] RBC Count 4.36 3.90 - 5.20 10*6/uL LAB HEMATOLOGY METHOD 02/26/2025 8:45 AM EDT [facility] HGB 12.3 11.2 - 15.7 g/dL LAB HEMATOLOGY METHOD 02/26/2025 8:45 AM EDT [facility] HCT 36.1 34.0 - 45.0 % LAB HEMATOLOGY METHOD 02/26/2025 8:45 AM EDT [facility] Platelet Count 349 155 - 369 10*3/uL LAB HEMATOLOGY METHOD 02/26/2025 8:45 AM EDT [facility] MCV 83 79 - 98 fL LAB HEMATOLOGY METHOD 02/26/2025 8:45 AM EDT [facility] MCH 28.2 26.0 - 32.0 pg LAB HEMATOLOGY METHOD 02/26/2025 8:45 AM EDT [facility] MCHC 34.1 30.7 - 35.5 g/dL LAB HEMATOLOGY METHOD 02/26/2025 8:45 AM EDT [facility] RDW 13.1 11.5 - 14.5 % LAB HEMATOLOGY METHOD 02/26/2025 8:45 AM EDT [facility] MPV 9.2 8.8 - 12.5 fL LAB HEMATOLOGY METHOD 02/26/2025 8:45 AM EDT [facility] nRBC 0.0 <=0.0 per 100 WBCs LAB HEMATOLOGY METHOD 02/26/2025 8:45 AM EDT [facility] Differential Type Automated LAB HEMATOLOGY METHOD 02/26/2025 8:45 AM EDT [facility] Neutrophils % 80 % LAB HEMATOLOGY METHOD 02/26/2025 8:45 AM EDT [facility] Lymphocytes % 9 % LAB HEMATOLOGY METHOD 02/26/2025 8:45 AM EDT [facility] Monocytes % 10 % LAB HEMATOLOGY METHOD 02/26/2025 8:45 AM EDT [facility] Eosinophils % 0 % LAB HEMATOLOGY METHOD 02/26/2025 8:45 AM EDT [facility] Basophils % 0 % LAB HEMATOLOGY METHOD 02/26/2025 8:45 AM EDT [facility] Immature Granulocytes % 1 % LAB HEMATOLOGY METHOD 02/26/2025 8:45 AM EDT [facility] Neutrophils Absolute 11.91(H) 1.60 - 6.10 10*3/uL LAB HEMATOLOGY METHOD 02/26/2025 8:45 AM EDT [facility] Lymphocytes Absolute 1.41 1.20 - 3.90 10*3/uL LAB HEMATOLOGY METHOD 02/26/2025 8:45 AM EDT [facility] Monocytes Absolute 1.43(H) 0.30 - 0.90 10*3/uL LAB HEMATOLOGY METHOD 02/26/2025 8:45 AM EDT [facility] Eosinophils Absolute 0.00 0.00 - 0.50 10*3/uL LAB HEMATOLOGY METHOD 02/26/2025 8:45 AM EDT [facility] Basophils Absolute 0.02 0.00 - 0.10 10*3/uL LAB HEMATOLOGY METHOD 02/26/2025 8:45 AM EDT [facility] Immature Granulocytes Absolute 0.16(H) 0.00 - 0.06 10*3/uL LAB HEMATOLOGY METHOD 02/26/2025 8:45 AM EDT [facility] Blood Venous blood specimen / Unknown Venipuncture / Unknown 02/26/2025 8:26 AM EDT 02/26/2025 8:38 AM EDT Narrative [facility] - 02/26/2025 8:45 AM EDT Therapeutic decision making should be based on absolute values, rather than percentages. Ned Menendez MD LAB BLOOD ORDERABLES Final Res ult Performing Organization Address City/[facility]/ZIP Co de Phone Number [facility] [address] [place] [address] * (ABNORMAL) POCT glucose meter (02/26/2025 8:18 AM EDT) Only the most recent of20 resultswithin the time period is included. POCT Glucose 143(H) 74 - 99 mg/dL 02/26/2025 8:21 AM EDT [facility] Comment:Accuracy of a glucos e result [...] Comment 02/26/2025 8:21 AM EDT [facility] Quality Assurance Lead ID Sherin Bynum 02/26/2025 8:21 AM EDT [facility] Device ID [id number] 02/26/2025 8:21 AM EDT [facility] Specimen Type POC Capillary 02/26/2025 8:21 AM EDT [facility] Blood Capillary blood specimen / Unknown 02/26/2025 8:18 AM EDT 02/26/2025 8:21 AM EDT Ned Menendez MD LAB POINT OF CARE TE ST DOCKED DEVICE UNSOLICITED RESULTS Final Result Performing Organization Address City/[facility]/ZIP Co de Phone Number [facility] [address] [place] [address] * CT Angio Neck (02/26/2025 8:10 AM EDT) Only the most recent of2 resultswithin the time period is included. Anatomical Region Laterality Modality Carotid Artery Computed [...] Total DLP (Dose-Length Product): 953.08 mGy.cm (accession [id number]), 953.08 mGy.cm (accession [id number]). Please note: The reported value represents the [...] no aneurysm of either internal carotid artery. [place] of [place] and Major Peripheral Branches: There [...] Total DLP (Dose-Length Product): 953.08 mGy.cm (accession [id number]),953.08 mGy.cm (accession [id number]). Please note: The reported valuerepresents the total [...] segment and mild stenoses in the left [id number]. There is no definite evidence of a [...] no aneurysm of either internal carotid artery. [place] of [place] and Major Peripheral Branches: There [...] systems. Redemonstration of moderate stenoses in right [id number]. Redemonstration of mild irregularity/undulating contour of the [...] on 02/26/2025 8:59 AM us Anaya Felton [employer] SUPERVISOR IMG CT PROCEDURES Final Resu lt * CT Angio Head (02/26/2025 8:10 AM EDT) Only the most recent of2 resultswithin the time period is included. Anatomical Region Laterality Modality [place] of [place] Computed Tomogr aphy Impressions 02/26/2025 [...] Total DLP (Dose-Length Product): 953.08 mGy.cm (accession [id number]), 953.08 mGy.cm (accession [id number]). Please note: The reported value represents the [...] no aneurysm of either internal carotid artery. [place]ena of [place] and Major Peripheral Branches: There [...] Total DLP (Dose-Length Product): 953.08 mGy.cm (accession [id number]),953.08 mGy.cm (accession [id number]). Please note: The reported valuerepresents the total [...] segment and mild stenoses in the left [id number]. There is no definite evidence of a [...] no aneurysm of either internal carotid artery. [place]ena of [place] and Major Peripheral Branches: There [...] systems. Redemonstration of moderate stenoses in right [id number]. Redemonstration of mild irregularity/undulating contour of the [...] MD on 02/26/2025 8:59 AM Anaya Felton [employer] SUPERVISOR IMG CT PROCEDURES Final Resu lt * [...] on 02/26/2025 8:34 AM Ned Menendez MD IM CT PROCEDURES Final Result * (ABNORMAL) CBC W/O Differential (02/26/2025 4:23 AM EDT) Only the most recent of4 resultswithin the time period is included. WBC Count 15.84(H) 3.70 - 10.30 10*3/uL LAB HEMATOLOGY METHOD 02/26/2025 4:44 AM EDT [facility] RBC Count 4.27 3.90 - 5.20 10*6/uL LAB HEMATOLOGY METHOD 02/26/2025 4:44 AM EDT [facility] HGB 12.1 11.2 - 15.7 g/dL LAB HEMATOLOGY METHOD 02/26/2025 4:44 AM EDT [facility] HCT 35.8 34.0 - 45.0 % LAB HEMATOLOGY METHOD 02/26/2025 4:44 AM EDT [facility] Platelet Count 332 155 - 369 10*3/uL LAB HEMATOLOGY METHOD 02/26/2025 4:44 AM EDT [facility] MCV 84 79 - 98 fL LAB HEMATOLOGY METHOD 02/26/2025 4:44 AM EDT [facility] MCH 28.3 26.0 - 32.0 pg LAB HEMATOLOGY METHOD 02/26/2025 4:44 AM EDT [facility] MCHC 33.8 30.7 - 35.5 g/dL LAB HEMATOLOGY METHOD 02/26/2025 4:44 AM EDT [facility] RDW 13.2 11.5 - 14.5 % LAB HEMATOLOGY METHOD 02/26/2025 4:44 AM EDT [facility] MPV 9.1 8.8 - 12.5 fL LAB HEMATOLOGY METHOD 02/26/2025 4:44 AM EDT [facility] nRBC 0.0 <=0.0 per 100 WBCs LAB HEMATOLOGY METHOD 02/26/2025 4:44 AM EDT [facility] Blood Venous blood specimen / Unknown Venipuncture / Unknown 02/26/2025 4:23 AM EDT 02/26/2025 4:29 AM EDT Anaya Felton APRN LAB BLOOD ORDERABLES Final R esult [facility] [address] [place] [address] * Phosphorus, Plasma (02/26/2025 4:23 AM EDT) Only the most recent of5 resultswithin the time period is included. Phosphorus, Plasma 3.5 2.5 - 4.5 mg/dL 02/26/2025 4:57 AM EDT [facility] Blood Venous blood specimen / Unknown Venipuncture / Unknown 02/26/2025 4:23 AM EDT 02/26/2025 4:29 AM EDT us Anaya Felton [employer] SUPERVISOR LAB BLOOD ORDERABLES Final R esult Performing Organization Address City/[facility]/ZIP Co de Phone Number [facility] [address] [place] [address] * Magnesium, Plasma (02/26/2025 4:23 AM EDT) Only the most recent of5 resultswithin the time period is included. Magnesium, Plasma 2.0 1.9 - 2.4 mg/dL 02/26/2025 4:57 AM EDT [facility] Blood Venous blood specimen / Unknown Venipuncture / Unknown 02/26/2025 4:23 AM EDT 02/26/2025 4:29 AM EDT [facility] BLOOD ORDERABLES Final R esult Performing Organization Address [facility]/RUST Co de Phone Number [facility] [address] [place] [address] * MR Head w and wo IV Contrast (02/25/2025 4:40 AM EDT) Only the most recent of2 resultswithin the time period is included. Anatomical Region Laterality Modality Head Magnetic Resonan [...] Narrative 02/25/2025 10:08 AM EDT CLINICAL INDICATION: Brain/MASS SPECTROMETRY SPECIALIST neoplasm, assess treatment response. Postoperative from craniectomy [...] Marcus Elias MD - 02/25/2025 CLINICAL INDICATION: Brain/MASS SPECTROMETRY SPECIALIST neoplasm, assess treatment response. Postoperative fromcraniectomy for [...] MRI PROCEDURES Final Resul t * (ABNORMAL) Caris [place] Cancer Seek Hybrid??? + IHCs and Other Tests by Tumor Type (02/24/2025 9:04 PM EDT) ARTHUR Genomic Loss of Heterozygosity - [place] Low 3% 03/13/2025 1:58 PM EDT [facility] SILVERIO Microsatellite Instability - [place] Stable 03/13/2025 1:58 PM EDT [facility] SILVERIO Tumor Mutational [place] - [place] Low 3 per Mb 03/13/2025 1:58 PM EDT [facility] ARTHURIS Her2/Davian Negative 03/13/2025 1:58 PM EDT [facility] SILVERIO HLA-A - [place] A*01:01,A*02: 01 03/13/2025 1:58 PM EDT [facility] SILVERIO HLA-B - [place] B*07:02,B*57: 01 03/13/2025 1:58 PM EDT [facility] SILVERIO HLA-C - [place] C*06:02,C*07: 02 03/13/2025 1:58 PM EDT [facility] SILVERIO MGMT-Me - Pyro SEQ Methylated 03/13/2025 1:58 PM EDT [facility] Tissue Non-blood Collection / Unknown 02/24/2025 9:04 PM EDT 03/03/2025 12:59 PM EDT Narrative This result has genomic variants that were not included in this document. us Chente Sebastian MD LAB MOL DX NO SOURCE Final Res ult [facility] [address] [place] [id number], * FISH, Paraffin 1p/19Q (02/24/2025 9:04 PM EDT) Pathologist [facility] Specimen Adequacy Adequate 03/11/2025 1:32 PM EDT [facility] Clinical Indication 03/11/2025 1:32 PM EDT [facility] Comment: Pre-op diagnosis: Brain mass [G93.89] Interpretation Tissue type: Brain Pathology Case #: [id number] Block A3 FISH studies are NEGATIVE for [...] al. JNEN 2003;62(1):1118.). 03/11/2025 1:[address] [facility] n[facility] yesenia(MEGF6,TP73)x1~4, (ABL2,ANGPTL1)x1~4[6 0]/(MAN2B1,ZNF44)x1~ 5,(CRX,GLTSCR1)x1~5[ 60] Methodology: [...] representative images were captured and stored using [employer] software ([employer] Cutoff ratios are <0.75 for both probe pairs, with relative deletion seen in at least 20% of tumor cells. Results are reported as the ratio of total 1p to 1q signals and 19q to 19p signals. A ratio between 0.75 and 1.2 is considered normal and <0.75 is considered deletion for 1p or 19q. 03/11/2025 1:32 PM EDT [facility] REFERENCES Adrienne JAMISON et al. Clin Oncol 2015;17(8):445. Van den Bent TIMOTEO et al., Neuro-Oncology 2017;19(5):614. 03/11/2025 1:32 PM EDT [facility] Disclaimer This test was developed and its performance characteristics determined by the [facility]. It has not been [...] specimen and probe. 03/11/2025 1:32 PM EDT [facility] Pathologist Signature Reviewed by: Paulo Peraza 03/11/2025 1:32 PM EDT [facility] Tissue 02/24/2025 9:04 PM EDT 03/05/2025 10:58 AM EDT us Sanchez Zaldivar MD LAB CYTOGENETICS ORDERABLES Fi nal Result [facility] [address] [place] [address] * Surgical Pathology Exam (02/24/2025 9:04 PM EDT) Case Report Surgical Pathology Case: [id number] Authorizing Provider: Sanchez Zaldivar MD Collected: 02/24/20259 Ordering Location: [facility] A OPERATING ROOM Received: 02/25/2025 0824 Pathologist: Kayla Costello MD Specimens: A) - Brain, brain tumor sonopet contents B) - Other (specify site), tumor in saline 03/02/2025 3:45 PM EDT [facility] Final Diagnosis A; B Brain, Sonopet contents amd resection: - Oligodendroglioma NOS, 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 appearance is most consistent with primary brain neoplasm such as glioblastoma or other high-grade glioma. 03/02/2025 3:45 PM EDT [facility] Microscopic Description IHC: A2-2 IDH-1 negatve (wild type) A3-5 ATRX positive (wild type) All controls show appropriate reactivity. All immunohistochemistr y, in situ hybridization, and histochemical tests were developed by and are performed at the [facility], [address] [place] [address]. All tests reported here, except those addressing [...] on decalcified specimens. 03/02/2025 3:45 PM EDT [facility] Gross Description A. BRAIN TUMOR SONOPET [...] cassette A1. Cold Time: 9h 02m Rosibel T Stevens 03/02/2025 3:45 PM EDT [facility] Note: A resident was involved in the service. I attest I examined the relevant preparations for the specimens and confirmed the diagnosis or interpretation. 03/02/2025 3:45 PM EDT [facility] Tissue Brain structure / Unknown 02/24/2025 9:04 PM EDT 02/25/2025 8:24 AM EDT Comment:Pre-op diagnosis: Brain mass [G93.89] Tissue specimen (specimen) Topography unknown / Unknown 02/24/2025 11:22 PM EDT 02/25/2025 8:24 AM EDT Comment:Pre-op diagnosis: Brain mass [G93.89] us Sanchez Zaldivar MD LAB PATHOLOGY ORDERABLES Final Result [facility] [address] [place] [address] * (ABNORMAL) Blood gas, arterial (02/24/2025 7:23 PM EDT) pH, Arterial 7.39 7.31 - 7.42 LAB HEMATOLOGY METHOD 02/24/2025 7:34 PM EDT [facility] pCO2, Arterial 33(L) 35 - 48 mmHg LAB HEMATOLOGY METHOD 02/24/2025 7:34 PM EDT [facility] pO2, Arterial 119 >80 mmHg LAB HEMATOLOGY METHOD 02/24/2025 7:34 PM EDT [facility] SO2, Measured, Arterial 100(H) 94 - 98 % LAB HEMATOLOGY METHOD 02/24/2025 7:34 PM EDT [facility] Base Excess, Arterial -4.3(L) -2.0 - 3.0 mmol/L LAB HEMATOLOGY METHOD 02/24/2025 7:34 PM EDT [facility] Bicarbonate, Calculated, Arterial 20(L) 22 - 26 mmol/L LAB HEMATOLOGY METHOD 02/24/2025 7:34 PM EDT [facility] Hematocrit, Whole Blood 37.4 34.0 - 45.0 % LAB HEMATOLOGY METHOD 02/24/2025 7:34 PM EDT [facility] Sodium, Whole Blood 129(L) 136 - 145 mmol/L LAB HEMATOLOGY METHOD 02/24/2025 7:34 PM EDT [facility] Potassium, Whole Blood 3.6 3.6 - 4.9 mmol/L LAB HEMATOLOGY METHOD 02/24/2025 7:34 PM EDT [facility] Chloride, Whole Blood 99 97 - 107 mmol/L LAB HEMATOLOGY METHOD 02/24/2025 7:34 PM EDT [facility] Glucose, Whole Blood 126(H) 74 - 99 mg/dL LAB HEMATOLOGY METHOD 02/24/2025 7:34 PM EDT [facility] Ionized Calcium, Whole Blood 4.6 4.6 - 5.1 mg/dL LAB HEMATOLOGY METHOD 02/24/2025 7:34 PM EDT [facility] Lactate, Arterial, Whole Blood 1.4 0.5 - 1.6 mmol/L LAB HEMATOLOGY METHOD 02/24/2025 7:34 PM EDT [facility] Blood Arterial blood specimen / Unknown Arterial Line / Unknown 02/24/2025 7:23 PM EDT 02/24/2025 7:33 PM EDT us Alessandro Cordovakrovskidelmis DO LAB BLOOD ORDERABLES Final Res ult [facility] [address] [place] [address] * PB ANESTHESIA NON-TIMED PROCEDURE PLACEHOLDER (02/24/2025 6:09 PM EDT) Narrative Jose Luis Weems MD - 02/24/2025 6:09 PM EDT Jose [...] * Peripheral IV (02/24/2025 6:09 PM EDT) Narrative Jose Luis Weems MD - 02/24/2025 6:09 PM EDT Jose Luis Weems MD 02/24/2025 7:06 PM Peripheral IV Inserted by: Jose Luis Weems MD Placement Needle size: 20 G Location: antecubital Site prep: alcohol Technique: anatomical landmarks Attempts: 1 Jose Luis Weems MD ANESTHESIA ORDERABLES F inal Result * CA AN ELECTIVE ENDOTRACHEAL AIRWAY, PB ANESTHESIA PLACEHOLDER [...] MD ANESTHESIA ORDERABLES F inal Result * Type and Screen (02/23/2025 5:11 PM EDT) Only the most recent of2 resultswithin the time period is included. ABO/Rh A Positive 02/23/2025 4:20 PM EDT [facility] Antibody Screen Negative 02/23/2025 4:20 PM EDT [facility]LO[facility]ANK Specimen Expiration 02/26/2025 23:59 02/23/2025 4:20 PM EDT BLOOD [facility]ANK Blood Venous blood specimen / Unknown Venipuncture / Unknown 02/23/2025 5:11 PM EDT 02/23/2025 5:24 PM EDT us Ned Menendez MD LAB BLOOD BANK TEST ORDERABLES Final Result BLOOD BANK [address] [place] [address], * (ABNORMAL) Comprehensive Metabolic Panel, Plasma (02/23/2025 5:11 PM EDT) Only the most recent of4 resultswithin the time period is included. Glucose, Plasma 119(H) 74 - 99 mg/dL 02/23/2025 5:54 PM EDT [facility] BUN, Plasma 20 8 - 23 mg/dL 02/23/2025 5:54 PM EDT [facility] Creatinine, Plasma 0.73 0.60 - 1.10 mg/dL 02/23/2025 5:54 PM EDT [facility] BUN/Creatinine Ratio 27 02/23/2025 5:54 PM EDT [facility] Sodium, Plasma 130(L) 136 - 145 mmol/L 02/23/2025 5:54 PM EDT [facility] Potassium, Plasma 4.4 3.6 - 4.9 mmol/L 02/23/2025 5:54 PM EDT [facility] Chloride, Plasma 96(L) 97 - 107 mmol/L 02/23/2025 5:54 PM EDT [facility] CO2, Plasma 22 22 - 29 mmol/L 02/23/2025 5:54 PM EDT [facility] Anion Gap 12 6 - 16 mmol/L 02/23/2025 5:54 PM EDT [facility] Total Calcium, Plasma 9.6 8.9 - 10.2 mg/dL 02/23/2025 5:54 PM EDT [facility] Total Protein 6.8 6.3 - 7.9 g/dL 02/23/2025 5:54 PM EDT [facility] Albumin, Plasma 4.1 3.5 - 5.2 g/dL 02/23/2025 5:54 PM EDT [facility] AST, Plasma 23 10 - 35 U/L 02/23/2025 5:54 PM EDT [facility] Comment:Hemolyzed, result ma y be falsely increased. ALT, Plasma 25 10 - 35 U/L 02/23/2025 5:54 PM EDT [facility] Alkaline Phosphatase, Plasma 52 46 - 142 U/L 02/23/2025 5:54 PM EDT [facility] Total Bilirubin, Plasma 0.3 0.2 - 1.1 mg/dL 02/23/2025 5:54 PM EDT [facility] eGFRcr 90.8 mL/min/1.7 3m*2 02/23/2025 5:54 PM EDT [facility] Comment:Reported eGFRcr in m L/min/1.73m2 is based the CKD-EPI 2020 equation that does not use a race coefficient. Blood Venous blood specimen / Unknown Venipuncture / Unknown 02/23/2025 5:11 PM EDT 02/23/2025 5:24 PM EDT us Ned Menendez MD LAB BLOOD ORDERABLES Final Res ult [facility] [address] [place] [address] * (ABNORMAL) Sodium (02/23/2025 12:40 AM EDT) Only the most recent of10 resultswithin the time period is included. Sodium, Plasma 134(L) 136 - 145 mmol/L 02/23/2025 1:32 AM EDT [facility] Blood Venous blood specimen / Unknown Venipuncture / Unknown 02/23/2025 12:40 AM EDT 02/23/2025 1:10 AM EDT us Anaya M Nipper [employer] SUPERVISOR LAB BLOOD ORDERABLES Final R esult Performing Organization Address City/[facility]/ZIP Co de Phone Number [facility] [address] [place] [address] * (ABNORMAL) POCT Glucose - Before Meals and Bedtime (02/22/2025 7:45 PM EDT) POCT Glucose 128(A) 74 - 99 mg/dL [facility] Blood Venous blood specimen / Unknown 02/22/2025 7:45 PM EDT us Anaya Curtis Jose Francisco [employer] SUPERVISOR POINT OF CARE TEST ENTER/FABIO T ORDERABLES Final Result Performing Organization Address [facility]/RUST Co de Phone Number [facility] [address] [place] [address] * MR Head w IV Contrast (02/22/2025 [...] IMG MRI PROCEDURES Final Resul t * Lavender Top (02/20/2025 4:27 AM EDT) Extra Hold for add-ons 02/20/2025 8:02 AM EDT [facility] Comment:Auto resulted. Blood Venous blood specimen / Unknown 02/20/2025 4:27 AM EDT 02/20/2025 5:06 AM EDT Ned Menendez MD LAB BLOOD ORDERABLES Final Res ult [facility] [address] [place] [address] * (ABNORMAL) Hemoglobin A1c (02/19/2025 4:17 PM EDT) Hemoglobin A1c 5.7(H) <5.7 % 02/19/2025 5:20 PM EDT [facility] Blood Venous blood specimen / Unknown Venipuncture / Unknown 02/19/2025 4:17 PM EDT 02/19/2025 4:49 PM EDT Narrative [facility] - 02/19/2025 5:20 PM EDT HA1C Interpretive Data: Diagnosis of Diabetes: Diabetic > or = 6.5% Pre-diabetic 5.7 to 6.4% Non-diabetic < or = 5.6% Glycemic Targets for Type I and Type II Diabetics: Non- Adults <7.0% Adults <6.0% Children and Adolescents <7.5% Source: [place] [employer]. Standards of medical care in diabetes,2017. Diabetes Care.2017:40 (suppl 1):S1-S135. Anaya Felton APRN LAB BLOOD ORDERABLES Final R esult Performing Organization Address City/[facility]/ZIP Co de Phone Number [facility] [address] [place] [address] * Sodium, urine, random (02/19/2025 11:50 AM EDT) Sodium, Urine 57 mmol/L 02/19/2025 12:53 PM EDT [facility] Urine Urine specimen obtained by clean catch procedure / Unknown Non-blood Collection / Unknown 02/19/2025 11:50 AM EDT 02/19/2025 12:09 PM EDT Anaya Hdez MD LAB URINE ORDERABLES Final Resul t Performing Organization Address [facility] Co de Phone Number [facility] [address] [place] [address] * Osmolality, urine (02/19/2025 11:50 AM EDT) Osmolality, Urine 441 50 - 1,200 mOsm/kg 02/19/2025 12:55 PM EDT [facility] Urine Urine specimen obtained by clean catch procedure / Unknown Non-blood Collection / Unknown 02/19/2025 11:50 AM EDT 02/19/2025 12:09 PM EDT us Anaya Hdez MD LAB URINE ORDERABLES Final Resul t Performing Organization Address [facility]/ZIP Co de Phone Number [facility] [address] [place] [address] * Creatinine, urine, random (02/19/2025 11:50 AM EDT) Creatinine, Urine 77 mg/dL 02/19/2025 12:53 PM EDT [facility] Urine Urine specimen obtained by clean catch procedure / Unknown Non-blood Collection / Unknown 02/19/2025 11:50 AM EDT 02/19/2025 12:09 PM EDT us Anaya Hdez MD LAB URINE ORDERABLES Final Resul t [facility] [address] [place] [address] * (ABNORMAL) Osmolality (02/19/2025 4:03 AM EDT) Osmolality, Serum 275(L) 280 - 301 mOsm/Kg 02/19/2025 11:41 AM EDT [facility] Blood Venous blood specimen / Unknown Venipuncture / Unknown 02/19/2025 4:03 AM EDT 02/19/2025 4:23 AM EDT us Anaya Hdez MD LAB BLOOD ORDERABLES Final Resul t Performing Organization Address [facility]/[place] [address] * MR Brain Neurofunctional Test w Physician [...] margins. 3. Components of the corticospinal tract ([employer]) have immediate proximity to the medial tumor margin. CRITICAL RESULT: No. COMMUNICATION: Per this written report. Drafted by Aurelio Brown MD on 02/18/2025 1:16 PM Final report signed by Aurelio Brown MD on 02/18/2025 6:45 PM Narrative 02/18/2025 6:45 PM EDT CLINICAL INDICATION: Presurgical planning, fMRI speech and motor. MASS SPECTROMETRY SPECIALIST neoplasm. TECHNIQUE: Anatomical MRI: 1 mm isotropic [...] margins. DTI Motor: The left corticospinal tract ([employer]ELOP[employer]) is displaced medially. The [employer]OP[employer] has proximity to the medial tumor margin at the level of ordaz radiata and the posterior limb of the internal capsule. The relatively more posterior portion of the [employer]ELOP[employer] has immediate proximity, while the more anterior portion of the [employer]ELOP[employer] has close proximity with 3 mm [id number] distance. DTI Language: The left superior longitudinal [...] completion language DTI fiber tracking: blue = [employer]EL[employer] red = SLF Images were created in [facility] and then exported to PACS as burned in images. Saved Plan of fibertracking results will be found on the [facility] cafeteria food server under the name fMRI_DTI Final. Procedure Note Aurelio Brown MD - 02/18/2025 CLINICAL INDICATION: Presurgical planning, fMRI speech and motor. MASS SPECTROMETRY SPECIALIST neoplasm. TECHNIQUE: Anatomical MRI: 1 mm isotropic [...] margins. DTI Motor: The left corticospinal tract ([employer]) is displaced medially. TheCST has proximity to the medial tumor margin at the level of coronaradiata and the posterior limb of the internal capsule. The relativelymore posterior portion of the [employer] has immediate proximity, while the moreanterior portion of the [employer] has close proximity with 3 mm [id number]. DTI Language: The left superior longitudinal fasciculus [...] completion language DTI fiber tracking: blue = [employer] red = SLF Images were created in [...] margins. 3. Components of the corticospinal tract ([employer]) have immediate proximity tothe medial tumor margin. CRITICAL RESULT: No. COMMUNICATION: Per this written report. Drafted by Aurelio Brown MD on 02/18/2025 1:16 PM Final report signed by Aurelio Brown MD on 02/18/2025 6:45 PM Ned Menendez MD IMG MRI PROCEDURES Final Resul t * Anti Xa Level Unfractionated Heparin (02/16/2025 9:51 PM EDT) Anti Xa Level Unfractionated Heparin <0.11 <1.00 IU/mL 02/16/2025 10:30 PM EDT [facility] Blood Venous blood specimen / Unknown Venipuncture / Unknown 02/16/2025 9:51 PM EDT 02/16/2025 10:08 PM EDT Narrative [facility] - 02/16/2025 10:30 PM EDT Therapeutic Range: UFH Full Dose and ACS/MT protocols*: 0.30 - 0.70 IU/mL UFH Low Dose protocol*: 0.25 - 0.50 IU/mL UFH prophylaxis: Not established us Maximus Ambrocio DO LAB BLOOD ORDERABLES Final Res ult [facility] [address] [place] [address] * CT Abdomen Pelvis w IV Contrast [...] Total DLP (Dose-Length Product): 1500.35 mGy.cm (accession [id number]), 1500.35 mGy.cm (accession [id number]). Please note: The reported value represents the [...] Total DLP (Dose-Length Product): 1500.35 mGy.cm (accession [id number]),1500.35 mGy.cm (accession [id number]). Please note: The reported valuerepresents the total [...] Total DLP (Dose-Length Product): 1500.35 mGy.cm (accession [id number]), 1500.35 mGy.cm (accession [id number]). Please note: The reported value represents the [...] Total DLP (Dose-Length Product): 1500.35 mGy.cm (accession [id number]),1500.35 mGy.cm (accession [id number]). Please note: The reported valuerepresents the total [...] - 418 PRU 02/16/2025 7:43 PM EDT [facility] Blood Venous blood specimen / Unknown Venipuncture / Unknown 02/16/2025 7:25 PM EDT 02/16/2025 7:31 PM EDT Narrative [facility] - 02/16/2025 7:43 PM EDT [id number] [...] to the clinician. Testing performed in the [facility] Special Coagulation. us Maximus Ambrocio DO LAB BLOOD ORDERABLES Final Res ult [facility] [address] [place] [address] * CT Head w and wo IV [...] 5:54 PM by Tanmay Alex MD via [employer] Secure Chat. Drafted by Tanmay Alex MD [...] TOTAL DLP (Dose-Length Product): 743.50 mGy.cm (accession [id number]), 743.50 mGy.cm (accession [id number]), 743.50 mGy.cm (accession [id number]). Please note: The reported value represents the [...] No aneurysm of either internal carotid artery. [place] of [place] and Major Peripheral Branches: There [...] TOTAL DLP (Dose-Length Product): 743.50 mGy.cm (accession [id number]),743.50 mGy.cm (accession [id number]), 743.50 mGy.cm (accession [id number]).Please note: The reported value represents the total [...] arteries: Multifocal moderate stenosis at the proximal S1vpadpvf of the right vertebral artery. Mild stenosis [...] No aneurysm of either internal carotid artery. [place] of [place] and Major Peripheral Branches: There [...] 02/16/2025 5:54 PMby Tanmay Alex MD via [employer] Secure Chat. Drafted by Tanmay Alex MD on 02/16/2025 5:51 PM Final report signed by Tanmay Alex MD on 02/16/2025 6:18 PM us Maximus Ambrocio DO IMG CT PROCEDURES Final Result * Hepatitis C Antibody - ED (09/22/2024 10:51 AM EST) Hepatitis C Antibody Negative Negative 09/22/2024 11:45 AM EST [facility] Blood Venous blood specimen / Unknown Venipuncture / Unknown 09/22/2024 10:51 AM EST 09/22/2024 11:04 AM EST us Kami Amin DO LAB BLOOD ORDERABLES Final Re sult [facility] [address] [place] [address] from Last 3 Months or Most Recently Relevant to Health Maintenance Insurance MEDICARE Advance Directives * Full Code (Latest Code Status on File) Date Activated Date Inactivated Comments 02/25/2025 12:12 AM 02/27/2025 4:29 PM Question Answer Comments I have reviewed the capacity from the link above and, if needed, have updated to appropriate status: Yes * Full Code Date Activated Date Inactivated Comments 02/16/2025 9:36 PM 02/25/2025 12:12 AM Question Answer Comments I have reviewed the capacity from the link above and, if needed, have updated to appropriate status: Yes * Full Code Date Activated Date Inactivated Comments 09/22/2024 10:54 PM 09/25/2024 6:27 PM Question Answer Comments Patient has decision-making capacity? Yes Care Teams Aeronautical Design Engineer Relationship Specialty Start Date End Date Caroline Shultz, JEFFREY [address] [place] [address] PCP - General 09/22/24
--- OUTSIDE RECORDS SUMMARY | 2025-03-16 12:06 | XMS_ITS | Encounter Summary ---
Author Organization Healthcare Address [address] [place] [address] Care Team Providers Care Gusset Folder Name Role Phone Carrington Caroline Campbell APRN Primary Care Provider +1- [phone] Encounter Details Date Type Department Care Team (Latest Contact Info) Description 02/16/2025 Travel Social History Tobacco Use Types Packs/Day [...] any time in the past 12 m [facility], were you homeless or living in [...] Date of Assessment Author No Risk Indicated 02/16/2025 7:28 PM EDT Tamica Garcia RN * Question Answer Date of Assessment Author 1. Wish to be (Past 1 Month) No 025 7:28 PM EDT Tamica Garcia RN 2. Non-Specific Active Suici tristian Thoughts (Past 1 Month) No 02/16/2025 7:28 PM EDT Conrado Garcia RN 6. Suicidal Behavior (Lifetime) No 7:28 PM EDT Tamica Garcia RN documented as of this encounter Plan of Treatment Upcoming Encounters Date Type Department Care Team (Late st Contact Info) Description 03/17/2025 1:00 PM EDT Appointment [facility] CC Radiation [address] [facility]. [id number] [place] [address] Miguel Perez MD [address] [facility] [address] [place] [address] 03/23/2025 1:45 PM EDT Clinical Support Pav [facility] Head[facility] Ne[facility] Respiratory [address] [facility], [address]nd [place] [address] 03/23/2025 2:00 PM EDT Office Visit Pav [facility] Respiratory [address] [facility], [address]nd [place] [address] Chente Sebastian MD [address] [facility] [address] Conde [facility] [address] [place] [address] documented as of this encounter Visit Diagnoses [...] documented as of this encounter Care Teams Gusset Folder Relationship Specialty Start Date End Date Caroline Shultz APRN [address] [place] [address] PCP - General 09/22/24 documented as of this encounter
--- OUTSIDE RECORDS SUMMARY | 2025-03-16 12:06 | XMS_ITS | Encounter Summary ---
Author Organization Healthcare Address [address] [place] [address] Care Team Providers Care Airplane Dispatcher Name Role Phone Carrington Caroline Campbell APRN Primary Care Provider +1- [phone] Encounter Details Date Type Department Care Team (Latest Contact Info) Description 02/15/2025 Travel Social History Tobacco Use Types Packs/Day [...] the past 12 m [facility], were you homeless or living in [...] Upcoming Encounters Date Type Department Care Team ([facility] st Contact Info) Description 03/17/2025 1:00 PM EDT Appointment P[facility] CC Radiation [address] [facility]. [id number] [place] [address] Miguel Perez MD [address] [facility] [address] [place] [address] 03/23/2025 1:45 PM EDT Clinical Support Pav [facility] Head[facility] Neck & Respiratory [address] [facility], 2nd [place] [address] 03/23/2025 2:00 PM EDT Office Visit Pav [facility] Head[facility] Neck [facility] Respiratory [address] [facility], [address]nd [place] [address] Chente Sebastian MD [address] [facility] Li[address] Conde [facility] [address] [place] [address] documented as of this encounter Visit Diagnoses [...] documented as of this encounter Care Teams Airplane Dispatcher Relationship Specialty Start Date End Date Caroline Shultz APRN [address] [place] [address] PCP - General 09/22/24 documented as of this encounter
--- OUTSIDE RECORDS SUMMARY | 2025-03-16 12:06 | XMS_ITS | Encounter Summary ---
Author Organization Healthcare Address [address] [place] [address] Care Team Providers Care Registered Nurse First Assistant Name Role Phone Carrington Caroline Campbell APRN Primary Care Provider +1- [phone] Encounter Details Date Type Department Care Team (Latest Contact Info) Description 02/18/2025 Travel Social History Tobacco Use Types Packs/Day [...] any time in the past 12 m [facility], were you homeless or living in a [place] (including now)? No 09/23/2024 Humiliation, Afraid, Rape, [...] any time in the past 12 m [facility], were you homeless or living in a [place] (including now)? No 02/19/2025 Utilities Answer Date [...] Appointment [facility] Radiation [id number] [place] [address] Miguel Perez MD [address] [place] [address] 03/23/2025 1:45 PM EDT Clinical Support Pav [facility] Head[facility] Neck & Respiratory [address] [facility], [address]nd [place] [address] 03/23/2025 2:00 PM EDT Office Visit Pav [facility] Head[facility] Neck & Respiratory [address] [facility], [address]nd [place] [address] Chente Sebastian MD [address] [facility] [address] [place] [address] documented as of this encounter Visit Diagnoses [...] documented as of this encounter Care Teams Registered Nurse First Assistant Relationship Specialty Start Date End Date Caroline Shultz APRN [address] [place] [address] PCP - General 09/22/24 documented as of this encounter
--- OUTSIDE RECORDS SUMMARY | 2025-03-16 12:06 | XMS_ITS | Encounter Summary ---
Author Organization Healthcare Address [address] [place] [address] Care Team Providers Care Assistant To The President Name Role Phone Caroline Shultz APRN Primary Care Provider +1- [phone] Encounter Details Date Type Department Care Team ([facility] Contact Info) Description 03/03/2025 Telephone Pav [facility] Head, Neck & Respiratory [address] [facility], [address]nd [place] [address] Chente Sebastian MD 800 [facility] [address] [place] [address] Social History Tobacco Use Types Packs/Day Years [...] any time in the past 12 m [facility], were you homeless or living in a usp (including now)? No 09/23/2024 Humiliation, Afraid, Rape, [...] any time in the past 12 m [facility], were you homeless or living in a usp (including now)? No 02/19/2025 Utilities Answer Date [...] on file documented as of this encounter Miscellaneous Notes * Telephone Encounter - Erna Redding - 03/03/2025 10:46 AM EDT 03/03- Attempted to call pt with upcoming appt with Dr. Sebastian for 03/12 @ 3:20pm, no answer, left VMand mailed out appt reminder with appt details. documented in this encounter Plan of Treatment Upcoming Encounters Date Type Department Care Team (Late st Contact Info) Description 03/17/2025 1:00 PM EDT Appointment [facility] Radiation [id number] [place] [address] Miguel Perez MD [address] [place] [address] 03/23/2025 1:45 PM EDT Clinical Support Pav CC Head, Neck & Respiratory [address] [facility], [address]nd [place] [address] 03/23/2025 2:00 PM EDT Office Visit Pav [facility] Head[facility] Neck & Respiratory [address] [facility], [address]nd [place] [address] Chente Sebastian MD [address] [place] [address] documented as of this encounter [...] documented as of this encounter Care Teams Assistant To The President Relationship Specialty Start Date End Date Caroline Shultz APRN [address] [place] [address] PCP - General 09/22/24 documented as of this encounter
--- OUTSIDE RECORDS SUMMARY | 2025-03-16 12:06 | XMS_ITS | Encounter Summary ---
Author Organization Healthcare Address [address] [place] [address] Care Team Providers Care Language Asst Name Role Phone Carrington Caroline Campbell APRN Primary Care Provider +1- [phone] Encounter Details Date Type Department Care Team (Latest Contact Info) Description 01/21/2025 Travel Social History Tobacco Use Types Packs/Day [...] any time in the past 12 m [facility], were you homeless or living in a retirement (including now)? No 09/23/2024 Utilities Answer Date [...] Upcoming Encounters Date Type Department Care Team ([facility] st Contact Info) Description 03/17/2025 1:00 PM EDT Appointment PAV CC Radiation [address] [facility]. [id number] [place] [address] Miguel Perez MD [address] [facility] [address] [place] [address] 03/23/2025 1:45 PM EDT Clinical Support Pav CC Head, Neck & Respiratory [address] [facility], [address]nd [place] [address] 03/23/2025 2:00 PM EDT Office Visit Pav CC Head, Neck & Respiratory [address] [facility], [address]nd [place] [address] Chente Sebastian MD [address] [facility] Liy[address] Conde [facility] [address] [place] [address] documented as of this encounter Visit Diagnoses [...] documented as of this encounter Care Teams Language Asst Relationship Specialty Start Date End Date Caroline Shultz APRN [address] [place] [address] PCP - General 09/22/24 documented as of this encounter
--- OUTSIDE RECORDS SUMMARY | 2025-03-16 12:06 | XMS_ITS | Encounter Summary ---
Author Organization [facility] Address [address] [place] [address] Care Team Providers Care Quill Collector Name Role Phone Caroline Shultz APRN Primary Care Provider +1- [phone] Reason for Referral * Home Health (Routine) - Authorized Specialty Diagnoses / Procedures Referred By Contac t Referred To Contact Home Health Services / Neurosurgery Diagnoses Benign neoplasm of brain, unspecified brain region (CMS/HCC) Sanchez Zaldivar MD [address] [address] Phone: tel: fax: Referral ID Status Reason Start Date Expiration Date Visits Requested Visits Authorized [id number] Authorized Specialty Services Required 03/02/2025 09/01/2026 [id number] Encounter Details Date Type Department Care Team (Late st Contact Info) Description 03/02/2025 Telephone [facility] [address], [address] [place] [address] Sanchez Zaldivar MD [id number] [place] [address] Social History Tobacco Use Types [...] any time in the past 12 m [facility], were you homeless or living in [...] any time in the past 12 m [facility], were you homeless or living in [...] encounter Miscellaneous Notes * Telephone Encounter - Dulce Maria Erickson APRN, DNP - 03/02/2025 4:25 PM EDT Hi, I have dropped home health PT/OT order, they live in [place]. Can you reach out to [facility] in [place] and see if they will provide service to the patient?Their number is [phone]. I called but got the answering service and she didn't know the answer. * Telephone Encounter - Suki Pal - 03/02/2025 2:27 PM EDT Patient Phone Message Reason for Call: Patient daughter calling requesting PT order be sent to [facility] and also asking about a possible referral to Home Health somewhere local pt has a lot of weakness on right side pt is dragging leg and very unsteady/ major fall risk please call to discuss options for that as well as speech issues and possible ST order to [facility] as well. Best contact number and optimal time of day to reach caller: [phone] Note: Please do not reply to this message. Follow-up communication and further actions as a result of this message need to be communicated with the patient directly, if the patient is not active onMyChart. If the patient is active on MyChart, they will receive notification of the communication/outcome via [employer]. documented in this encounter Plan of Treatment Upcoming Encounters Date Type Department Care Team (Late st Contact Info) Description 03/17/2025 1:00 PM EDT Appointment [facility] CC Radiation [id number] [place] [address] Miguel Perez MD [address] [place] [address] 03/23/2025 1:45 PM EDT Clinical Support Pav CC Head, Neck & Respiratory [address] [facility], [address]nd [place] [address] 03/23/2025 2:00 PM EDT Office Visit Pav CC Head, Neck & Respiratory [address] [facility], [address]nd [place] [address] Chente Sebastian MD [address] [place] [address] Scheduled Referrals Name Type Priority Associated Diagnoses Order Schedule Ambulatory referral to NON [facility] Outpatient Referral Routine Benign neoplasm of brain, unspecified brain region (CMS/HCC) 1 Occurrences starting 03/02/2025 until 09/03/2026 documented as of this encounter Visit Diagnoses Diagnosis Benign neoplasm of brain, unspecified brain region (CMS/HCC)- Primary documented in this encounter Additional Health Concerns Assessment Noted Time PHQ-9 Depression Total Score: 6 10/08/19 2:13 PM EST A fall risk assessment has been complete d for the patient 02/16/2025 9:53 AM EDT A Body Mass Index follow-up plan has been documented for the patient 02/27/2025 10:32 AM EDT documented as of this encounter Care Teams Quill Collector Relationship Specialty Start Date End Date Caroline Shultz APRN [address] [place] [address] PCP - General 09/22/24 documented as of this encounter
--- OUTSIDE RECORDS SUMMARY | 2025-03-16 12:06 | XMS_ITS | Encounter Summary ---
Author Organization Healthcare Address [address] [place] [address] Care Team Providers Care Chauffeur Motorbus Name Role Phone Carrington Caroline Adrian MURPHY Primary Care Provider +1- [phone] Encounter Details Date Type Department Care Team ([facility] st Contact Info) Description 03/03/2025 Orders Only Pav CC Head, Neck & Respiratory [address] [facility], [address]nd [place] [address] Chente Sebastian MD 800 [facility] [address] [place] [address] Glioma of brain (CMS/HCC) (Primary Dx) Social History Tobacco Use [...] any time in the past 12 m [facility], were you homeless or living in a fdc (including now)? No 09/23/2024 Humiliation, Afraid, Rape, [...] any time in the past 12 m [facility], were you homeless or living in a fdc (including now)? No 02/19/2025 Utilities Answer Date [...] Progress Notes - Chente Sebastian MD - 03/03/2025 10:22 AM EDT luis alfredo documented in this encounter Plan of Treatment Upcoming Encounters Date Type Department Care Team (Late st Contact Info) Description 03/17/2025 1:00 PM EDT Appointment P[facility] CC Radiation [id number] [place] [address] Miguel Perez MD [address] [place] [address] 03/23/2025 1:45 PM EDT Clinical Support Pav CC Head, Neck & Respiratory [address] [facility], [address]nd [place] [address] 03/23/2025 2:00 PM EDT Office Visit Pav CC Head, Neck & Respiratory [address] [facility], [address]nd [place] [address] Chente Sebastian MD [address] [facility] [address] [place] [address] documented as of this encounter Procedures Procedure Name Priority Date/Time Associated Diagnosis Comments LUIS ALFREDO GAMBOA TUMOR SEEK HYBRID + IHCS AND OTHER TESTS BY TUMOR TYPE Routine 02/24/2025 9:04 PM EDT Glioma of brain (CMS/HCC) documented in this encounter Results * (ABNORMAL) Luis Alfredo GAMBOA Cancer Seek Hybrid??? + IHCs and Other Tests by Tumor Type (02/24/2025 9:04 PM EDT) LUIS ALFREDO Genomic Loss of Heterozygosity - [place] Low 3% 03/13/2025 1:58 PM EDT CARIS [employer] CARIS Microsatellite Instability - [place] Stable 03/13/2025 1:58 PM EDT CARIS [employer] CARIS Tumor Mutational [place] - [place] Low 3 per Mb 03/13/2025 1:58 PM EDT [facility] CARIS Her2/Davian Negative 03/13/2025 1:58 PM EDT [facility] CARIS HLA-A - [place] A*01:01,A*02: 01 03/13/2025 1:58 PM EDT [facility] LUIS ALFREDO HLA-B - [place] B*07:02,B*57: 01 03/13/2025 1:58 PM EDT [facility] LUIS ALFREDO HLA-C - [place] C*06:02,C*07: 02 03/13/2025 1:58 PM EDT [facility] LUIS ALFREDO MGMT-Me - Pyro SEQ Methylated 03/13/2025 1:58 PM EDT [facility] Tissue Non-blood Collection / Unknown 02/24/2025 9:04 PM EDT 03/03/2025 12:59 PM EDT Narrative This result has genomic variants that were not included in this document. us Chente Sebastian MD LAB MOL DX NO SOURCE Final Res ult [facility] [address] [place] [address], documented in this encounter Visit Diagnoses Diagnosis Glioma of brain (CMS/HCC)- Primary Malignant neoplasm of brain, unspecified [...] documented as of this encounter Care Teams Chauffeur Motorbus Relationship Specialty Start Date End Date Caroline Shultz APRN [address] [place] [address] PCP - General 09/22/24 documented as of this encounter
--- OUTSIDE RECORDS SUMMARY | 2025-03-16 12:06 | XMS_ITS | Encounter Summary ---
Author Organization Healthcare Address [address] [place] [address] Care Team Providers Care Anaesthesiologist Name Role Phone Carrington Caroline Campbell APRN Primary Care Provider +1- [phone] Encounter Details Date Type Department Care Team (Latest Contact Info) Description 03/09/2025 Travel Social History Tobacco Use Types Packs/Day [...] time in the past 12 m [facility], were you homeless or living in a group home (including now)? No 09/23/2024 Humiliation, Afraid, [...] time in the past 12 m [facility], were you homeless or living in a group home (including now)? No 02/19/2025 Utilities Answer [...] Appointment PAV CC Radiation [id number] [place] [address] Miguel Perez MD [address] [place] [address] 03/23/2025 1:45 PM EDT Clinical Support Pav CC Head, Neck & Respiratory [address] [facility], [address]nd [place] [address] 03/23/2025 2:00 PM EDT Office Visit Pav CC Head, Neck & Respiratory [address] [facility], [address]nd [place] [address] Chente Sebastian MD [address] [facility] [address] [place] [address] documented as of this encounter Visit Diagnoses [...] documented as of this encounter Care Teams Anaesthesiologist Relationship Specialty Start Date End Date Caroline Shultz APRN [address] [place] [address] PCP - General 09/22/24 documented as of this encounter
--- OUTSIDE RECORDS SUMMARY | 2025-03-16 12:07 | XMS_ITS | Encounter Summary ---
Author Organization Healthcare Address [address] [place] [address] Care Team Providers Care Water Pump Assembler Name Role Phone Carrington Caroline Campbell APRN Primary Care Provider +1- [phone] Encounter Details Date Type Department Care Team (Latest Contact Info) Description 03/07/2025 Travel Social History Tobacco Use Types Packs/Day [...] any time in the past 12 m [facility], were you homeless or living in a longterm (including now)? No 09/23/2024 Humiliation, Afraid, Rape, [...] any time in the past 12 m [facility], were you homeless or living in a longterm (including now)? No 02/19/2025 Utilities Answer Date [...] Appointment [facility] Radiation [id number] [place] [address] Miguel Perez MD [id number] [place] [address] 03/23/2025 1:45 PM EDT Clinical Support Pav [facility] Respiratory 800 [facility], 2nd [place] [address] 03/23/2025 2:00 PM EDT Office Visit Pav [facility] Head[facility] Respiratory 800 [facility], 2nd [place] [address] Chente Sebastian MD 800 [facility] [address] [place] [address] documented as of this encounter Visit Diagnoses [...] documented as of this encounter Care Teams Water Pump Assembler Relationship Specialty Start Date End Date Caroline Shultz APRN [address] [place] [address] PCP - General 09/22/24 documented as of this encounter
--- OUTSIDE RECORDS SUMMARY | 2025-03-16 12:07 | XMS_ITS | Encounter Summary ---
Author Organization Healthcare Address [address] [place] [address] Care Team Providers Care Project Manager Interior Design Name Role Phone Caroline Shultz APRN Primary Care Provider +1- [phone] Encounter Details Date Type Department Care Team ([facility] st Contact Info) Description 03/05/2025 Telephone [facility] [address] [place] [address] Sheba Fisher APRN 800 [facility] [address] [place] [address] Social History Tobacco Use Types Packs/Day Years [...] any time in the past 12 m [facility], were you homeless or living in a assisted (including now)? No 09/23/2024 Humiliation, Afraid, Rape, [...] any time in the past 12 m [facility], were you homeless or living in a assisted (including now)? No 02/19/2025 Utilities Answer Date Recorded In the past 12 months has th e [employer], gas, oil, or water [employer] threatened to shut off services in your home? No 02/19/2025 Comments No Sex and Gender Information Value Date Recorded Sex Assigned at Female 09/22/2024 11:47 AM EST Legal Sex Female 8:04 PM EDT Gender Identity Not on file Sexual Orientation Not on file documented as of this encounter Miscellaneous Notes * Telephone Encounter - Sheba Fisher APRN - 03/05/2025 4:28 PM EDT Called patient and her daughter, Sarahi to advise her that the appt with me in canceled due to path results available and she is scheduled to see Dr. Steiner on 03/[address] Sebastian on 03/12. She agreed and verbalized understanding of the cancellation and the scheduled appts. I offered to answer questions or concerns about path report and they had no questions at this time. I encouraged her to call if she had any questions or concerns. documented in this encounter Plan of Treatment Upcoming Encounters Date Type Department Care Team (Late st Contact Info) Description 03/17/2025 1:00 PM EDT Appointment [facility] Radiation 800 [facility]. [id number] [place] [address] Miguel Perez MD 800 [facility] [address] [place] [address] 03/23/2025 1:45 PM EDT Clinical Support [facility] Head[facility] Neck [facility] Respiratory 800 [facility], 2nd [place] [address] 03/23/2025 2:00 PM EDT Office Visit Pav [facility] Head[facility] Neck & Respiratory 800 [facility], 2nd [place] [address] Chente Sebastian MD 800 [facility] [address] [place] [address] documented as of this encounter Visit Diagnoses [...] documented as of this encounter Care Teams Project Manager Interior Design Relationship Specialty Start Date End Date Caroline Shultz APRN [address] [place] [address] PCP - General 09/22/24 documented as of this encounter
== END 2025-03-11 23:59 | disposition home or self-care (01) ==
LOC: LAB.DROPOF 03-16 12:02
PROVIDERS: PCP Internal Medicine; Visit Provider Internal Medicine
DX: E87.1 Hypo-osmolality and hyponatremia (principal)
CPT/HCPCS: 80048

== ENCOUNTER 2025-03-19 11:28 | Emergency (ER) | payer OTHER, MEDICARE, SELFPAY ==
--- OUTSIDE RECORDS SUMMARY | 2025-01-21 08:40 | XMS_ITS | Encounter Summary ---
Author Organization [facility] Address [address] [place] [address] Care Team Providers Care Television Production Assistant Name Role Phone Caroline Shultz APRN Primary Care Provider [phone]- [phone] Reason for Visit * Consultation (Routine) - Closed Specialty Diagnoses / Procedures Referred By Contac t Referred To Contact Neurology Diagnoses Sensory deficit, right Acute ischemic left middle cerebral artery (MCA) stroke (CMS/HCC) Adam Pandey MD [address] [address] Phone: tel: fax: Referral ID Status Reason Start Date Expiration Date V isits Requested Visits Authorized [id number] Closed Specialty Services Required 09/25/2024 03/27/2026 1 1 Encounter Details Date Type Department Care Team (Late st Contact Info) Description 01/21/2025 8:40 AM EDT Office Visit [place] [facility] [address] [place] [address] Bridget Lion PA [id number] [place] [address] Acute ischemic left middle cerebral artery (MCA) stroke (CMS/HCC) (Primary Dx); Sensory deficit, right Social History Tobacco Use Types Packs/Day Years Used Date Smoking Tobacco: Never Smokeless Tobacco: Never Alcohol Use Standard Drinks/Week Comments Never 0 (1 standard drink = 0.6 oz pur e alcohol) No alcohol at all Humiliation, Afraid, Rape, and Kick questionnair e Answer Date Recorded Within the last year, have y ou been afraid of your partner or ex-partner? No 09/23/2024 Within the last year, have y ou been humiliated or emotionally abused in other ways by your partner or ex-partner? No Within the last year, have y ou been kicked, hit, slapped, or otherwise physically hurt by your partner or ex-partner? No 09/23/2024 Within the last year, have y ou been raped or forced to have any kind of sexual activity by your partner or ex-partner? No 09/23/2024 PHQ-2 Answer Date Recorded Patient Health Questionnaire-2 Score 0 10/08/2024 Hunger Vital Sign Answer Date Recorded Within the past 12 months, y ou worried that your food would run out before you got the money to buy more. Never true 09/23/19 25 Within the past 12 months, t he food you bought just didn't last and you didn't have money to get more. Never true 09/23/2024 PRAPARE - Transportation Answer Date Re corded In the past 12 months, has l ack of transportation kept you from medical appointments or from getting medications? No 09/10 In the past 12 months, has l ack of transportation kept you from meetings, work, or from getting things needed for daily living? No 09/23/2024 PHQ-9 Answer Date Recorded Patient Health Questionnaire-9 Score 6 10/08/2024 Housing Stability Vital Sign Answer Trip e Recorded In the last 12 months, was t here a time when you were not able to pay the mortgage or rent on time? No 09/23/2024 In the past 12 months, how m any times have you moved where you were living? 1 09/23/2024 At any time in the past 12 m [facility], were you homeless or living in a chcf (including now)? No 09/23/2024 Utilities Answer Date Recorded In the past 12 months has th e electric, gas, oil, or water company threatened to shut off services in your home? No 09/23/2024 Comments No Sex and Gender Information Value Date Recorded Sex Assigned at Female 09/22/2024 11:47 AM EST Legal Sex Female 8:04 PM EDT Gender Identity Not on file Sexual Orientation Not on file documented as of this encounter Last Filed Vital Signs Vital Sign Reading Time Taken Comments Blood Pressure 118/80 01/21/2025 8:52 AM EDT Pulse 57 01/21/2025 8:52 AM EDT Temperature - - Respiratory Rate - - Oxygen Saturation 95% 01/21/2025 8:52 AM EDT Inhaled Oxygen Concentration - - Weight 120 kg (265 lb 6.9 oz) 01/21/2025 8:52 AM EDT Height 167.6 cm (5' 5.98 ) 01/21/2025 8:52 AM ED T Body Mass Index 42.86 01/21/2025 8:52 AM EDT documented in this encounter Miscellaneous Notes * Progress Notes - Bridget Lion PA - 01/21/2025 8:40 AM EDT [facility] Subjective Herminia Murrell is a 64 year-old female with a history of hypertension who was hospitalized with the neurology service from 09/22-09/25/2024 after presenting with episodic right-sided sensory deficitsand was found to have a focus of mild restricted diffusion and enhancement in the left posterior insula indicating some edema, nonspecific finding consistent with possible subacute ischemia. She was also started on keppra 1500mg BID for concern for focal seizure. Patient continued her home aspirin and started atorvastatin 40mg nightly for secondary prevention of stroke. In the interim, the patient reached out to ask if she could further decrease her keppra, and we tapered the dose down to 500mg twice daily. She has since discontinued the keppra altogether. She presents to the clinic today for follow up. She has been doing well in the interim since the last clinic visit. She reports that the burning sensation in her right lower extremity has been improving and is occurring far less frequently. No seizure activity. Blood pressure has been well managed in the interim. She completed cardiac monitoring with [facility], no atrial fibrillation captured in 30 days. She has an upcoming appointment with cardiology at [facility]. The patient has had no recent sudden onset weakness, speech difficulty, vision loss, or sensory changes concerning for new stroke since the last clinic visit. The patient denied any recent injuries, illnesses, hospitalizations, or medication changes. The patient has had no issues with secondary stroke prophylaxis medications: aspirin 81 mg daily and atorvastatin 40 mg daily. Medications Ordered Prior to Encounter[1] Objective Vitals: 01/21/25 0852 BP: 118/80 Pulse: 57 SpO2: 95% Physical Exam Constitutional: Patient in no acute distress. Patient appears stated age. Eyes: Anicteric sclera. No appreciable conjunctival injection. Psychiatric: Appropriate mood and affect. Patient is cooperative. Patient appears to have insight. Neurological Examination: Mental Status: Alert and oriented to person, time, and place. Normal speech and language without dysarthria. Concentration and attention full. Cranial Nerves: No appreciable deficit in cranial nerves II-XII. Motor: Normal tone and bulk throughout. Left upper extremity 5/5. Right upper extremity 5/5. Left lower extremity 5/5. Right lower extremity 5/5. Sensory: Sensation intact and symmetric to light touch in all four extremities. Reflexes: Reflexes 2+ and symmetric throughout. Coordination: No appreciable limb ataxia. Gait: No appreciable gait abnormality. Assessment/Plan: Diagnosis Plan 1. Acute ischemic left middle cerebral artery (MCA) stroke ([facility]) Discharge Ambulatory referral to Neurology 2. Sensory deficit, right Discharge Ambulatory referral to Neurology Herminia Murrell is a 64 year-old female with a history of hypertension who was hospitalized with the neurology service from 09/22-09/25/2024 after presenting with episodic right-sided sensory deficitsand was found to have a focus of mild restricted diffusion and enhancement in the left posterior insula indicating some edema, nonspecific finding consistent with possible subacute ischemia. She was also started on keppra 1500mg BID for concern for focal seizure. Patient continued her home aspirin and started atorvastatin 40mg nightly for secondary prevention of stroke. Her sensory symptoms did not improve with keppra and the dose was tapered and discontinued. Her symptoms have been decreasing in frequency despite stopping the keppra. She will continue to follow with [facility] Cardiology. Patient to continue to follow regularly with primary care for optimization of comorbid conditions. Stroke signs and symptoms reviewed indetail and patient to call 911/seek emergent medical attention if these develop. Follow up in 1 year. - Continue secondary prevention of stroke with aspirin and statin - Recommend BP control with goal < 130/80 - Recommend lipid management with goal LDL <70 and TG <150 - Recommend glycemic control with goal of euglycemia - Stroke signs and symptoms reviewed and to call 911 if these develop Counseling Documentation: The patient was counseled regarding diagnostic results, prognosis, risks and benefit of treatment options, risk factor reductions, instructions for management, patient and family education, impressions, and importance of compliance with treatment. Education provided was verbal counseling. I spent 30 minutes on the day of the encounter providing care including reviewing prior records, personally visualizing available neuroimaging, reviewing prior labs/studies, obtaining history from the patient/family, discussing the management plan with the patient/family, counseling the patient/family, entering orders, and documentation of the encounter. [1] Current Outpatient Medications on File Prior to Visit Medication Sig Dispense Refill ascorbic acid (vitamin C) 1000 MG tablet Take 1 tablet (1,000 mg) by mouth 1 (one) time each day. aspirin 81 MG EC tablet Take 1 tablet (81 mg) by mouth 1 (one) time each day in the morning. atorvastatin (Lipitor) 40 MG tablet Take 1 tablet (40 mg) by mouth every night. 30 tablet 11 b complex vitamins capsule Take 1 capsule by mouth 1 (one) time each day. coenzyme Q-10 200 MG tablet Take 2 tablets (400 mg) by mouth 1 (one) time each day. fish oil ([place]-3) 500 MG capsule Take 2,400 mg by mouth 2 (two) times a day. hydroCHLOROthiazide (HYDRODiuril) 25 MG tablet Take 1 tablet (25 mg) by mouth 2 (two) times a day. lisinopril 40 MG tablet Take 0.5 tablets (20 mg) by mouth 2 (two) times a day. Magnesium Bisglycinate (MAG GLYCINATE PO) Take 800 mg by mouth every night. nebivolol (Bystolic) 5 MG tablet Take 1 tablet (5 mg) by mouth 1 (one) time each day. omeprazole (PriLOSEC) [address] capsule Take 1 capsule (40 mg) by mouth 1 (one) time each day in themorning. Do not crush or chew. Probiotic Product (PROBIOTIC PO) Take 1 capsule by mouth 1 (one) time each day. Provitalize's synergistic probiotic-herb blend selenium 200 MCG tablet Take 1 tablet (200 mcg) by mouth 1 (one) time each day. sertraline (Zoloft) 50 MG tablet Take 1 tablet (50 mg) by mouth 1 (one) time each day. UNABLE TO FIND Med Name: Cod liver oil, 1000mg twice a day UNABLE TO FIND Med Name: Cyruta Plus, twice a day fluticasone (Flonase) 50 MCG/ACT nasal spray Administer 1 spray into each nostril 1 (one) time eachday if needed for rhinitis. Shake gently. Before first use, prime pump. After use, clean tip and replace cap. (Patient not taking: Reported on 09/26/2024) levETIRAcetam (Keppra) 500 MG tablet Take 3 tablets (1,500 mg) by mouth 2 (two) times a day. (Patient not taking: Reported on 01/21/2025) 180 tablet 11 UNABLE TO FIND Take 1 each by mouth 1 (one) time each day. Med Name: Jihan Cullen 1000mg (Patient not taking: Reported on 09/26/2024) [DISCONTINUED] clopidogrel (Plavix) 75 MG tablet Take 1 tablet (75 mg) by mouth 1 (one) time each day in the morning. (Patient not taking: Reported on 01/21/2025) No current facility-administered medications on file prior to visit. documented in this encounter Plan of Treatment Upcoming Encounters Date Type Department Care Team (Late st Contact Info) Description 03/23/2025 1:45 PM EDT Clinical Support [facility] [address] [facility]nd [place] [address] 03/23/2025 2:00 PM EDT Office Visit [facility] [address] [place] [address] Chente Sebastian MD [address] [place] [phone] 07/06/2025 9:30 AM EDT Office Visit [place] [facility] [address], [address] [place] [address] Sanchez Zaldivar MD [address] [place] [address] documented as of this encounter Visit Diagnoses Diagnosis Acute ischemic left middle cerebral artery (MCA) stroke (CMS/HCC)- Primary Sensory deficit, right documented in this encounter Additional Health Concerns Assessment Noted Time PHQ-9 Depression Total Score: 6 10/08/19 25 2:13 PM EST A fall risk assessment has been complete d for the patient 01/21/2025 8:52 AM EDT A Body Mass Index follow-up plan has been documented for the patient 01/21/2025 9:19 AM EDT documented as of this encounter Care Teams Television Production Assistant Relationship Specialty Start Date End Date Caroline Shultz APRN [address] [place] [address] PCP - General 09/22/24 documented as of this encounter
--- OUTSIDE RECORDS SUMMARY | 2025-02-16 10:00 | XMS_ITS | Encounter Summary ---
Author Organization Healthcare Address [address] [place] [address] Care Team Providers Care Flagsetter Name Role Phone Caroline Shultz APRN Primary Care Provider [phone]- [phone] Encounter Details Date Type Department Care Team (Late st Contact Info) Description 02/16/2025 10:00 AM EDT Office Visit [place] [facility] [address], [address] [place] [address] Bridget Lion, PA [address] [place] [address] Aphasia (Primary Dx); Acute ischemic left middle cerebral artery (MCA) stroke (CMS/HCC) Social History Tobacco Use Types Packs/Day Years [...] any time in the past 12 m [facility], were you homeless or living in a care home (including now)? No 09/23/2024 Utilities Answer Date [...] Sign Reading Time Taken Comments Blood Pressure 148/88 02/16/2025 9:53 AM EDT Pulse 60 02/16/2025 9:53 AM EDT Temperature - - Respiratory Rate - - Oxygen Saturation 97% 02/16/2025 9:53 AM EDT Inhaled Oxygen Concentration - - Weight 118 kg (260 lb 9.3 oz) 02/16/2025 9:53 AM EDT Height 167.6 cm (5' 6 ) 02/16/2025 9:53 AM EDT Body Mass Index 42.06 02/16/2025 9:53 AM EDT documented in this encounter Miscellaneous Notes * Progress Notes - Bridget Lion PA - 02/16/2025 10:00 AM EDT [facility] Stroke [facility] Subjective Herminia Murrell is [...] keppra 1500mg BID for concern for focal seizure (burning sensation of the right lower extremity). Patient continued her home aspirin and started atorvastatin 40mg nightly for secondaryprevention of stroke. She has since discontinued her keppra due to no changes in her RLE symptoms with the keppra and because it was causing her significant drowsiness. She has since reported improvement in her symptoms despite not taking any antiseizure medication. She presents to the clinic today to discuss recent concerning symptoms. 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 The following day she went to order at a restaurant and could not find the word 'chicken.' This is only occurring with specific words, she will move onto other words with no issue but statesthat since this started she has had some intermittent specific word finding difficulties. This morning she had trouble programing her GPS to get here despite having been able to do so in the past. She is tearful at time of exam recounting her story. She is incredibly anxious about having anotherstroke. Her cardiology follow up is in [place] later this week. The patient has had no recent sudden onset weakness, speech difficulty, vision loss, or sensory changes concerning for new stroke since the last clinic visit. The patient denied any recent injuries, illnesses, hospitalizations, or medication changes. The patient has had no issues with secondary stroke prophylaxis medications: aspirin 81 mg daily and clopidogrel 75 mg daily. She was having leg weakness and pain with the atorvastatin so she stoppedit about one week ago. Medications Ordered Prior to Encounter[1] Objective Vitals: 02/16/25 0953 BP: (!) 148/88 Pulse: 60 SpO2: 97% Physical Exam Constitutional: Patient in no acute [...] appreciable gait abnormality. Assessment/Plan: Diagnosis Plan 1. Aphasia CT Angio Head CT Angio Neck CT Head wo IV Contrast MR Head wo IV Contrast 2. Acute ischemic left middle cerebral artery (MCA) stroke (CMS/HCC) rosuvastatin (Crestor) 10 MG tablet Herminia Murrell is a 64 year-old female [...] in frequency despite stopping the keppra. She has had a few episodes of word finding difficulties which may be aphasia. They are causing her great distress. She is not symptomatic at the time of the exam however today we will obtain a stat CT head and CTA head/neck for further investigation. I will also order an MRI head without contrast for ongoing evaluation. Due to her intolerance of atorvastatin, will try crestor which will be sent to her pharmacy today. Patient to continue to follow regularly with primary care for optimization of comorbid conditions. Stroke signs and symptoms reviewed in detail and patient to call 911/seek emergent medical attentionif these develop. Follow up in 2 weeks. - Continue secondary prevention of stroke with aspirin, statin, and plavix - Recommend BP control with goal < [...] instructions for management, patient and family education, medication changes, impressions, and importance of compliance with treatment. Education provided was verbal co unseling. I spent 30 minutes on the day [...] (one) time each day in the morning. b complex vitamins capsule Take 1 capsule by mouth 1 (one) time each day. clopidogrel (Plavix) 75 MG tablet Take 1 tablet by mouth every morning. 90 tablet 0 coenzyme Q-10 200 MG tablet Take 2 tablets (400 mg) by mouth 1 (one) time each day. fish oil ([place]-3) 500 MG capsule Take 2,400 mg by [...] 1 (one) time each day. Med Name: Lion's Subhash 1000mg (Patient not taking: Reported on 09/26/2024) [DISCONTINUED] atorvastatin (Lipitor) 40 MG tablet Take 1 tablet (40 mg) by mouth every night. 30 tablet 11 No current facility-administered medications on file prior to visit. documented in this encounter Plan of Treatment Upcoming Encounters Date Type Department Care Team (Late st Contact Info) Description 03/23/2025 1:45 PM EDT Clinical Support [facility] [address] [facility] [facility] [place] [address] 03/23/2025 2:00 PM EDT Office Visit [facility] [address] [facility] [facility] [place] [address] Chente Sebastian MD [address] [facility] [address] [place] [address] 07/06/2025 9:30 AM EDT Office Visit [place] [facility] [address] [place] [address] Sanchez Zaldivar MD [address] [place] [address] documented as of this encounter Visit Diagnoses Diagnosis Aphasia- Primary Acute ischemic left middle cerebral artery (MCA) stroke (CMS/HCC) documented in this encounter Additional Health Concerns Assessment Noted Time PHQ-9 Depression Total Score: 6 10/08/19 25 2:13 PM EST A fall risk assessment has been complete d for the patient 02/16/2025 9:53 AM EDT A Body Mass Index follow-up plan has been documented for the patient 02/27/2025 10:32 AM EDT documented as of this encounter Care Teams Flagsetter Relationship Specialty Start Date End Date Caroline Shultz APRN [address] [place] [address] PCP - General 09/22/24 documented as of this encounter
--- OUTSIDE RECORDS SUMMARY | 2025-02-16 15:08 | XMS_ITS | Encounter Summary ---
Author Organization [facility] Address [address] [place] [address] Care Team Providers Care Waiter/Waitress Dining Car Name Role Phone Carrington Caroline Adrian MURPHY Primary Care Provider [phone] Reason for Referral * Consultation (Routine) - Authorized Specialty Diagnoses / Procedures Referred By Génesis salgado Referred To Contact Diagnoses Hyponatremia Hypertension, unspecified type Anaya Felton APRN [address] [address] Phone: tel: fax: Referral ID Status Reason Start Date Expiration Date Visits Requested Visits Authorized [id number] Authorized Specialty Services Required 02/26/2025 08/28/2026 1 1 * Consultation (Routine) - Authorized Specialty Diagnoses / Procedures Referred By Génesis salgado Referred To Contact Physical Therapy Diagnoses Brain mass Sensory deficit, right Anaya Felton APRN [address] [address] Phone: tel: fax: Referral ID Status Reason Start Date Expiration Date Visits Requested Visits Authorized [id number] Authorized Consult and Treat 02/27/2025 08/29/2026 1 1 * Consultation (Routine) - Closed Specialty Diagnoses / Procedures Referred By Contact Referred To Contact Medical Oncology / Hematology and Oncology Diagnoses Brain mass Anaya Felton APRN [address] [address] Phone: tel:[phone] fax:[phone] [facility] [address] [place] [address] Phone: tel: fax: Referral ID Status Reason Start Date Expiration Date V isits Requested Visits Authorized [id number] Closed Specialty Services Required 02/26/2025 08/28/2026 1 1 * Consultation (Routine) - Authorized Specialty Diagnoses / Procedures Referred By Génesis salgado Referred To Contact Neurology Diagnoses Brain mass Focal seizure (CMS/HCC) Facial droop Expressive aphasia Acute right-sided weakness Anaya Felton AUTOCUTTER [address] [address] Phone: tel: fax: [facility] [address] [place] [address] Phone: tel: fax: Referral ID Status Reason Start Date Expiration Date Visits Requested Visits Authorized [id number] Authorized Specialty Services Required 02/26/2025 08/28/2026 1 1 * Consultation (Routine) - Closed Specialty Diagnoses / Procedures Referred By Génesis salgado Referred To Contact Radiation Oncology Diagnoses Brain mass Anaya Felton APRN [address] [address] Phone: tel: fax: [facility] [address] [place] [address] [id number] [place] [address] Phone: tel: fax: Referral ID Status Reason Start Date Expiration Date V isits Requested Visits Authorized [id number] Closed Specialty Services Required 02/25/2025 08/27/2026 1 1 Reason for Visit * Reason Comments difficulty speaking * Auth/Cert (Routine) Specialty Diagnoses / Procedures Referred By Génesis salgado Referred To Contact Diagnoses Brain tumor (benign) (CMS/HCC) Brain mass Ned Menendez MD [address] [address] Phone: tel: fax: [facility] [address] [place] [address] Phone: tel: Referral ID Status Reason Start Date Expiration Date Visits Re quested Visits Authorized [id number] 1 1 Encounter Details Date Type Department Care Team (Latest Contact Info) Description 02/16/2025 3:08 PM EDT - 02/27/2025 2:24 PM EDT Hospital Encounter [facility] [address] [place] [address] Maximus Ambrocio, DO [address] [place] [address] Ned Menendez MD [address] [address] Sanchez Zaldivar MD [address] [address] Brain mass (Primary Dx); Hyponatremia; Hypertension, unspecified type; Focal seizure (CMS/HCC); Facial droop; Expressive aphasia; Acute right-sided weakness; Sensory deficit, right Discharge Disposition: Home or Self Care Social History Tobacco Use Types Packs/Day Years Used Date Smoking Tobacco: Never Smokeless Tobacco: Never Alcohol Use Standard Drinks/Week Comments Never 0 (1 standard drink = 0.6 oz pur e alcohol) No alcohol at all PHQ-2 Answer Date Recorded Patient Health Questionnaire-2 Score 0 10/08/2024 PHQ-9 Answer Date Recorded Patient Health Questionnaire-9 [...] any time in the past 12 m [facility], were you homeless or living in a fci (including now)? No 09/23/2024 Humiliation, Afraid, Rape, and Kick questionnair e Answer Date Recorded Within the last year, have y ou been afraid of your partner or ex-partner? No 02/19/2025 Within the last year, have y ou been humiliated or emotionally abused in other ways by your partner or ex-partner? No Within the last year, have y ou been kicked, hit, slapped, or otherwise physically hurt by your partner or ex-partner? No 02/19/2025 Within the last year, have y ou been raped or forced to have any kind of sexual activity by your partner or ex-partner? No 02/19/2025 Hunger Vital Sign Answer Date Recorded Within the past 12 months, y ou worried that your food would run out before you got the money to buy more. Never true 02/20/20 25 Within the past 12 months, t he food you bought just didn't last and you didn't have money to get more. Never true 02/19/2025 PRAPARE - Transportation Answer Date Re corded In the past 12 months, has l ack of transportation kept you from medical appointments or from getting medications? No 02/08 In the past 12 months, has l ack of transportation kept you from meetings, work, or from getting things needed for daily living? No 02/19/2025 Housing Stability Vital Sign Answer Trip e Recorded In the last 12 months, was t here a time when you were not able to pay the mortgage or rent on time? No 02/19/2025 In the past 12 months, how m any times have you moved where you were living? 1 02/19/2025 At any time in the past 12 m [facility], were you homeless or living in a fci (including now)? No 02/19/2025 Utilities Answer Date Recorded In the past 12 months has th e electric, gas, oil, or water company threatened to shut off services in your home? No 02/19/2025 Comments No Sex and Gender Information Value Date Recorded Sex Assigned at Female 09/22/2024 11:47 AM EST Legal Sex Female 8:04 PM EDT Gender Identity Not on file Sexual Orientation Not on file documented as of this encounter Last Filed Vital Signs Vital Sign Reading Time Taken Comments Blood Pressure 135/84 02/27/2025 11:22 AM EDT Pulse 59 02/27/2025 11:22 AM EDT Temperature 36.6 C (97.9 F) 02/27/2025 11:22 AM EDT Respiratory Rate 15 02/27/2025 4:00 AM EDT Oxygen Saturation 96% 02/27/2025 11:22 AM EDT Inhaled Oxygen Concentration - - Weight 114 kg (250 lb 7.1 oz) 02/27/2025 5:59 AM EDT Height 167.6 cm (5' 6 ) 02/16/2025 2:45 PM EDT Body Mass Index 40.42 02/16/2025 2:45 PM EDT documented in this encounter Functional Status * Calculated C-SSRS Risk Score (Lifetime/Recent) Answer Date of Assessment Author No Risk Indicated 02/24/2025 4:16 PM EDT Lisa James RN * Question Answer Date of Assessment Author 1. Wish to be (Past 1 Month) No 025 4:16 PM EDT Lisa James RN 2. Non-Specific Active Suici tristian Thoughts (Past 1 Month) No 02/24/2025 4:16 PM EDT Jennifer James RN 6. Suicidal Behavior (Lifetime) No 4:16 PM EDT Lisa James RN documented as of this encounter Medications at Time of Discharge acetaminophen (Tylenol) 500 MG tablet Take 2 tablets by mouth every 6 hours. 100 tablet 02/27/2025 aspirin 81 MG EC tablet Take 1 tablet by mouth every morning. coenzyme Q-10 200 MG tablet Take 2 tablets by mouth daily. cyclobenzaprine (Flexeril) 5 MG tablet Take 1 tablet by mouth 3 times a day as needed for muscle spasms. 30 tablet 02/27/2025 dexamethasone (Decadron) 4 MG tablet Take 1 tablet by mouth 4 times a day for 1 day, THEN 1 tablet 3 times a day for 2 days, THEN 1 tablet 2 times a day for 3 days, THEN 0.5 tablets 2 times a day for 2 days. 18 tablet 02/27/2025 fish oil ([place]-3) 500 MG capsule Take 2,400 mg by mouth daily. levETIRAcetam (Keppra) 500 MG tablet Take 3 tablets by mouth 2 times a day. 180 tablet 11 02/27/2025 6 lisinopril 40 MG tablet Take 0.5 tablets by mouth 2 times a day. Magnesium Bisglycinate (MAG GLYCINATE PO) Take 800 mg by mouth every night. nebivolol (Bystolic) 5 MG tablet Take 1 tablet by mouth daily. NIFEdipine CC (Adalat CC) 30 MG 24 hr tablet Take 1 tablet by mouth daily. Do not crush, chew, or split. 30 tablet 1 02/27/2025 5 omeprazole (PriLOSEC) [address] capsule Take 1 capsule by mouth every morning. Do not crush or chew. Probiotic Product (PROBIOTIC PO) Take 1 capsule by mouth 1 (one) time each day. Provitalize's synergistic probiotic-herb blend rosuvastatin (Crestor) 10 MG tabletIndications: Acute ischemic left middle cerebral artery (MCA) stroke (CMS/HCC) Take 1 tablet by mouth daily for 14 days. 14 tablet 02/16/2025 selenium 200 MCG tablet Take 1 tablet by mouth daily. sertraline (Zoloft) 50 MG tablet Take 1 tablet by mouth daily. UNABLE TO FIND Med Name: Cod liver oil, 1000mg once daily UNABLE TO FIND Med Name: Cyruta Plus, twice a day documented as of this encounter Miscellaneous Notes * Progress Notes - Jose Elias Marshall DO - 02/27/2025 11:10 AM EDT Images from the original note were not included. GME Consult Progress Note Hospital Day: 02/27/25 Subjective: NAEO. Patient seated upright in bedside chair in no acute distress. Hyponatremia is stable. Currently denies any acute complaints. ROS: Constitutional: denies fevers, chills CV: denies chest pain, palpitations Resp: denies cough, SOA GI: denies nausea, vomiting Objective: Vitals: Temp: [36.3 ??C (97.4 ??F)-36.8 ??C (98.2 ??F)] 36.8 ??C (98.2 ??F) Heart Rate: [55-68] 56 Resp: [15-16] 15 BP: (111-148)/(68-79) 143/79 Physical Exam: General: appears stated age, no apparent distress HEENT: anicteric sclera, no conjunctival drainage CV: normal rate with regular rhythm, no appreciable MRG, no LE edema Resp: no appreciable wheezes/crackles, nonlabored breathing on RA GI: soft, no TTP, nondistended Neuro: awake and alert, anomic aphasia Psych: appropriate mood with congruent affect, cooperative during exam Labs and Imaging: WBC ?? Hgb ?? PLT ?? HCT ?? PTT ?? INR ?? antiXa ?? Na 132 (L) Cl 97 BUN 21 Gluc 95 K 4.2 Co2 23 Creat 0.64 Assessment and Plan: Wali Murrell is a 64 y.o. female presenting with PMH HTN who presented with word finding difficulty and newly discovered left insular brain mass. consulted for hyponatremia. 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 Most recent Na 131. - Currently at her baseline and given that has been present for at least 6 months, less likely to need correction before OR. - Continue to hold diuretics - Etiology at this point unclear and possibly mutlifactorial given SSRI usage, brain mass, and hydrochlorothiazide use. Hydrochlorothiazide complicates the interpretation of urine studies. Given thatwe have been holding this, and Na has remained largely stable despite an attempt at a fluid restriction. If this represents SIADH 2/2 brain mass, we could see improvement s/p resection HTN - Home BP meds include lisinopril, nebivolol, and hydrochlorothiazide; lisinopril and nebivolol restarted on 02/19 per primary team. - Received 1x PRN hydralazine yesterday for BP of 146/81; no additional doses since per chart review. - Continue to hold hydrochlorothiazide to avoid worsening hyponatremia. - Will continue to monitor BP s/p craniotomy - Continue Nifedipine 30 #Brain mass with associated cerebral edema with brain compression - Keppra started during this admission; patient tolerating well - Holding anti-platelet agents pending OR - Management per NSGY #Type 2 DM - Continue POCT BG monitoring - On steroids but glucose currently well controlled. #Depression: continue home Zoloft 50 mg daily #GERD: continue home PPI #Hx of CVA: Continue holding ASA, Plavix pending OR today. Continue home statin. Recommendations: - On discharge, would recommend 2L fluid restriction. This is markedly less restrictive than the usual treatment for SIADH, however, given patient relative stability of hyponatremia despite no fluid restriction on admission, hyponatremia was not severe, nor worsening. If the etiology is SIADH 2/2 in tracranial mass, we would expect to see some improvement s/p resection. Given these factors, we feel that the detriment to qaulity of life outweighs the benefits associated with an 800mL fluid restriction. We are also holding hydrochlorothiazide which should further improve her hyponatremia. - Hold hydrochlorothiazide at discharge and replace with nifedipine - Patient will need follow-up with repeat labs in 1-2 weeks with PCP to ensure stability of hyponatremia. DVT Ppx: SQH Diet: CARB2 Code status: Full Code Thank you for allowing us to participate in the care of this patient. Please Secure Chat or page with any questions or concerns. GME will sign off. MEDICAL DECISION MAKING: Data: - Reviewed the following notes: NSGY to discharge today - Reviewed labs which are significant for: stable hyponatremia (improved), stable renal function. - BMP ordered today to assess for sodium trend Risk: - Decision made to discharge patient today. Foreign Marshall DO PGY-2 [facility] - Internal Medicine Epic Chat preferred; Pager [phone] Cosigned by Ede Ruiz MD at 03/07/2025 2:40 PM EDT Associated attestation - Ede Ruiz MD - 03/07/2025 2:40 PM EDT I saw and evaluated the patient. I discussed the case with the resident/fellow and agree with the findings and plan as documented. Agree with resident note as above. Obtained shower chair for patient in anticipation of imminent discharge. * Progress Notes - Guy Virk - 02/27/2025 9:56 AM EDT SW met with NS Team to discuss pt POC. Per team, pt is medically ready for d/c. RW ordered and to be delviered bedside from [facility]. Pt d/c to home address. No other CM needs identified. Guy Virk LCSW * Samuel Rodriguez - Sherin Bynum RN - 02/27/2025 9:46 AM EDT Images from the original note were not included. [id number] Depression: Tips to Help Yourself As your healthcare providers help treat your depression, you can also help yourself. Keep in mind that your illness affects you emotionally, physically, mentally, and socially. So full recovery will take time. Take care of your body and your soul. And be patient with yourself as you get better. Self-care ? Educate yourself. Read about treatment and medicine options. If you have the energy, go to local conferences or support groups. Keep a list of useful websites and helpful books and use them as needed. This illness is not your fault. Don?t blame yourself for your depression. ? Manage early symptoms. If you notice symptoms returning, have triggers, or find other things thatmay lead to a depressive episode, get help as soon as possible. Ask trusted friends and family to watch your behavior. They can let you know if they see anything of concern. ? Work with your provider. Find a provider you can trust. Talk honestly with that person. Share information on your treatment for depression and your reaction to medicines. You may need to try different medicines before finding the right one. ? Be prepared for a crisis. Know what to do if you have a crisis. Keep the phone number of a crisishotline handy, or save it in your cellphone. Know where your community's urgent care centers and the closest emergency department are. ? Hold off on big decisions. Depression can cloud your judgment. So wait until you feel better before making major life decisions. These include changing jobs, moving, making a big purchase, or getting or . ? Be patient. Recovering from depression is a process. Don?t be discouraged if it takes some time to feel better. ? Keep it simple. Depression saps your energy and focus. So you won?t be able to do all the things you used to do. Set small goals and do what you can. ? Be with others. Don?t isolate yourself--you?ll only feel worse. Try to be with other people. And take part in fun activities when you can. Go to a movie, [employer], evangelical service, or social event. Talk openly with people you can trust. And accept help when it?s offered. Take care of your body People with depression often lose the desire to take care of themselves. That only makes their problems worse. During treatment and after, make a point to: ? Exercise. It?s a great way to take care of your body. And studies have shown that exercise helps fight depression. Aim for 30 minutes of moderate activity a day. Walking in small blocks of time (5 to10 minutes) is a good way to start. But anything that gets you moving (gardening, house cleaning) counts. ? Not use drugs or alcohol. These may ease the pain in the short term. But they?ll only make your problems worse in the long run. ? Get relief from stress. Ask your healthcare provider for relaxation exercises and methods to helpease stress. Consider things like meditation, yoga, progressive muscle relaxation, or erin chi. ? Eat right. A balanced and healthy diet helps keep your body healthy. ? Get enough sleep. Aim for 8 hours per night. Too much or too little sleep can cause other physical and emotional problems. Last Reviewed Date: 2023 00:00:00 ?? 1396-5939 [employer]. All rights reserved. This information is not intended as a substitute for professional medical care. Always follow your healthcare professional's instructions. * Samuel Rodriguez - Sherin Bynum RN - 02/27/2025 9:45 AM EDT Images from the original note were not included. [id number] What is a Focal Seizure (Partial Seizure)? Have you or someone else noticed part of your body moving or shaking involuntarily? Do you have short periods when you feel confused, have memory loss, or appear to act unusual? Are you sometimes unaware of your actions, or do you even pass out for a few moments? If so, you may be experiencing focal seizures. These occur when you have a condition called epilepsy. Focal seizures (formally called partial seizures) can be scary and frustrating. But they can usually be controlled. How the brain works Your brain uses short bursts of electricity as signals. These signals allow areas of the brain to communicate with each other. These signals also travel from the brain to the rest of your body. When part of the brain ?overloads? Sometimes the signals become excessive. When this happens in one area of the brain, it's called a focal seizure. The excessive signals cause part of the body to work abnormally. Then you may twitch, feel confused, or pass out for a moment. Focal seizures can present in many ways. ? Focal onset aware seizures (previously simple partial seizures) often have only a few minor symptoms, such as hand twitching, visual changes, smelling an unusual odor, or feeling a sense of d??j??-vu. There is no loss of consciousness. ? Focal impaired awareness seizures (previously complex partial seizures) are often linked with more abnormal behavior. They may also affect your mental functioning to some degree. You may have a lowered level of consciousness, mental confusion, or loss of memory. Focal seizures can be controlled Seizures can be caused by irritation or damage to the brain from injury, scar formation, tumors, stroke, or infection. Usually the cause is unknown. But most partial seizures can be successfully treated. With treatment, most people with seizures lead normal, fulfilling lives. Last Reviewed Date: 2023 00:00:00 ?? [employer]. All rights reserved. This information is not intended as a substitute for professional medical care. Always follow your healthcare professional's instructions. * Sherin Wolfe RN - 02/27/2025 9:45 AM EDT Images from the original note were not included. 85091 What Is Aphasia? Aphasia is a loss of language skills that includes understanding or producing language. Aphasia often happens after a stroke. But it can also happen from brain injury, tumors, or other problems with the nervous system. People with aphasia may not be able to express their thoughts (expressive aphasia). Or they may not be able to understand others (receptive aphasia). A speech therapist may help a person with aphasia regain his or her language skills. Signs of aphasia Signs of aphasia vary with each person. A person with aphasia may show some or all of the signs below. A person with aphasia may not be able to: ? Understand words when others speak. ? Speak in complete sentences. ? Read or write. ? Understand that numbers have meaning. A person with aphasia may: ? Speak using only nouns and verbs. ? Mix up the order of words in a sentence. ? Use the wrong words or made-up words. ? Have trouble working with numbers, such as balancing a checkbook. Practical tips for aphasia A person with aphasia may still think and understand, even if responding is hard. Try to: ? Ask questions that can be answered with a yes or a no. ? Speak slowly and clearly in simple sentences. Use simple words, but don?t ?talk down? to the person. ? Give the person time to understand and to respond. Try not to speak for the person unless you must. Last Reviewed Date: 2024 00:00:00 ?? [employer]. All rights reserved. This information is not intended as a substitute for professional medical care. Always follow your healthcare professional's instructions. * Sherin Wolfe RN - 02/27/2025 9:45 AM EDT Images from the original note were not included. 93401 Aphasia: Improving Communication Aphasia is a condition that affects a person's ability to communicate. It often happens when a partof the brain that processes language is damaged. This is usually from a stroke or brain damage. A speech therapist (also called a speech- language pathologist) is trained in speech and language rehabilitation. They will work closely with the person and their family to help the person improve communication. Take time to read to your loved one or talk about your day. Speech and language therapy During rehabilitation (rehab), the therapist may: ? Use objects and flash cards to help improve naming skills. ? Use other ways of communicating. These may include writing, using their hands (gesturing), or other visual aids when needed. ? Ask the person to follow commands and answer questions about stories or articles. ? Help the person find ways to work around lost language skills. For instance, the person may need to use a thumbs-up or eye blinks in place of yes or no. ? Help the person with conversational skills. These include turn-taking during a discussion and expressing thoughts. This may be done during group therapy. You can help If your loved one has aphasia, these tips may make communicating easier: ? Speak slowly and clearly. Keep your voice at a normal level. Use common words, but don?t ?talk down? to the person. ? Speak in simple sentences. Stick to one idea and one action. ? Give the person time to understand and to respond. Resist the urge to finish their sentences. ? Don't ignore the person. Keep them informed and involved. Involve them in family or group discussions as much as possible. ? Don't pretend to understand if you don?t. Last Reviewed Date: 2024 00:00:00 ?? [id number] [employer]. All rights reserved. This information is not intended as a substitute for professional medical care. Always follow your healthcare professional's instructions. * Samuel Rodriguez - Sherin Bynum RN - 02/27/2025 9:45 AM EDT Images from the original note were not included. [id number] Brain Tumor Your body makes new cells to replace old or damaged ones all the time. A tumor starts when cells change (mutate) and start to grow out of control. The changed (abnormal) cells often grow to form a lump or mass called a tumor. Tumors can be cancer (malignant) or not cancer (benign). You have been seen by your health care provider for a possible brain tumor. But more testing and follow-up may be needed to diagnose the type of tumor and to plan the best treatment. ? A benign tumor will stay where it first started and tends to grow slowly. ? A malignant tumor can grow into nearby tissues and tends to grow faster. Most cancers can spread (metastasize) to other parts of the body. Cancers that start in the brain rarely do this. But they can spread to other parts of the brain. Types of brain tumors A primary brain tumor is one that starts in cells that make up the brain. It may be benign or malignant. At this time, scientists don?t know what causes primary brain tumors. A metastatic brain tumor comes from cancer that starts somewhere else in the body and spreads to the brain. This is the most common kind of brain tumor. Either type of tumor can damage the brain by spreading through it, or by pressing on and squeezing the brain inside the skull. Because of this, any type of brain tumor can be dangerous, because it can grow large enough to affect different parts of the brain. These are the most common primary brain tumors: ? Glioma. This type of tumor is most often cancer (malignant). It tends to grow fast. ? Meningioma. This type of tumor is usually benign. But it can cause problems. This depends on how big it is and where it is in the brain. There are many other types of brain tumors that are less common. How are brain tumors diagnosed? Most brain tumors cause headaches, vision changes, seizures, and balance problems. Behavior and memory may change. Nausea and vomiting may occur. These problems lead a person to seek medical care. If a brain tumor is suspected, the first test done is often imaging with an MRI of the brain. If anMRI can't be done, a CT scan might be done. These tests give a clear picture of the brain and nearby tissue. A contrast medium is usually given before the test to create more detailed pictures. A small piece (sample) of tumor tissue (biopsy) is often needed. The sample is taken during surgery. The sample is tested to find out what kind of brain tumor it is and how fast it's growing. How are brain tumors treated? There are a lot of different ways to treat brain tumors. You will talk with your treatment team to decide on the best treatment plan for you. Your options depend on things like the kind of tumor you have, where the tumor is, how fast it's growing, problems it's causing, and your preferences. Most brain tumors need to be treated right away. Surgery is done to treat most primary brain tumors. Sometimes radiation therapy or chemotherapy will be done after surgery. Other treatments may be used. These depend on the kind of tumor. A brain tumor may cause other problems such as nausea, headaches, seizures, or brain swelling. These problems are also treated. Home care You can do your normal activities as you feel up to it. But if you've had a seizure or fainted, youshould not drive, take baths alone, or swim until your health care provider says it?s safe. Take any seizure medicine as directed to help prevent another episode. If you have headaches or nausea, use the medicines you are given. Follow-up care It's important to follow up with your health care provider or a specialist as directed. If you're having seizures, don't drive or operate dangerous equipment until you're cleared by your provider. When to get medical advice Call your health care provider right away if you have: ? New seizures or seizures that keep happening. ? Repeated vomiting. ? A change in how alert you are or it?s hard to wake you up. ? New changes to your vision, speech, or hearing. ? Weakness on one side of your body or loss of coordination and balance. ? Severe headache. ? Confusion. ? Trouble thinking, speaking, or getting your words out. Ask your health care provider who you should call and what number you should use if you have problems at home. Be sure you know how to get help anytime, including after office hours and on weekends and holidays. Last Reviewed Date: 2024 00:00:00 ?? 0437-7600 [employer]. All rights reserved. This information is not intended as a substitute for professional medical care. Always follow your healthcare professional's instructions. * Significant Event - Anaya Felton APRN - 02/27/2025 9:26 AM EDT DME being ordered discharge home - Rolling walker: The patient will require a rolling walker for ADLs at home upon discharge. The patient trailed and cannot safely walk without a walker * Discharge Summary - Anaya Felton APRN - 02/27/2025 6:32 AM EDT Images from the original note were not included. Hospitalization Admit Date/Time: 02/16/2025 3:08 PM Admitting Attending: Ned Menendez Discharge Date: 02/27/25 Discharge Attending Physician: Sanchez Zaldivar MD PCP name and Address: Caroline Shultz APRN [address] [facility] [id number] Referring provider name and address: No referring provider defined for this encounter. Chief Concern, Brief History of Present Illness, and Hospital Course Wali Murrell is a 64 y.o. 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 The procedure was tolerated well without any intraoperative or postoperative complications. The patient was subsequently taken to the PACU for stabilization and extubation. Following extubation the patient was transferred to a neurosurgical floor unit for monitoring and continuation of care. Patient was started on dexamethasone taper and 2 weeks of Keppra for seizure prophylaxis. Surgical pathology is pending at the time of discharge. Referral placed for patient to follow up with radiation oncology and medial oncology outpatient in 2 weeks. Patient was stroke alerted on 02/26/25 for new onset right sided weakness that resolved shortly after. Neurology was consulted and felt symptoms were likely seizure related. CTH without acute hemorrhage.. CTA Head/neck without large vessel occlusion. Recommended continuing Keppra 1500 mg BID, Continue secondary stroke ppx with Atorvastatin 80 mg nightly and ASA 81 mg daily when appropriate, follow-up with [facility] in 8-12 weeks. Patient provided with printed outpatient physical therapy prescription and rolling walker for discharge. Her course was complicated by hyponatremia and hypertension. Patient was placed on fluid restriction with improvement. Hyponatremia likely chronic, since mid- September 2024. Hydrochlorothiazide was stopped and started nifedipine. Recommend follow up with PCP within 1 week of discharge. The patient was seen by the neurosurgery team and it was felt the patient had reached maximal benefit from hospitalization and deemed the patient ready for discharge. On the day of discharge the patient's pain is well controlled with PO pain medicine pain, walking, voiding, having bowel movements, tolerating oral intake. The patient was discharged in stable condition and will follow up with Dr. Zaldivar On 03/16/25. Surgeries and Procedures Procedures performed in this encounter Procedures Case Request Operating Room: LEFT CRANIOTOMY, FOR INTRACRANIAL NEOPLASM EXCISION LEFT CRANIOTOMY, FOR INTRACRANIAL NEOPLASM EXCISION (N/A) Medication List PAUSE taking these medications aspirin 81 MG EC tablet Wait to take this until: March 10, 2025 Take 1 tablet by mouth every morning. .. acetaminophen 500 MG tablet Commonly known as: Tylenol Take 2 tablets by mouth every 6 hours. coenzyme Q-10 200 MG tablet Take 2 tablets by mouth daily. cyclobenzaprine 5 MG tablet Commonly known as: Flexeril Take 1 tablet by mouth 3 times a day as needed for muscle spasms. dexamethasone 4 MG tablet Commonly known as: Decadron Take 1 tablet by mouth 4 times a day for 1 day, THEN 1 tablet 3 times a day for 2 days, THEN 1 tablet 2 times a day for 3 days, THEN 0.5 tablets 2 times a day for 2 days. Start taking on: February 27, 2025 fish oil 500 MG capsule Commonly known as: [place]-3 Take 2,400 mg by mouth daily. levETIRAcetam 500 MG tablet Commonly known as: Keppra Take 3 tablets by mouth 2 times a day. lisinopril 40 MG tablet Take 0.5 tablets by mouth 2 times a day. MAG GLYCINATE PO Take 800 mg by mouth every night. nebivolol 5 MG tablet Commonly known as: Bystolic Take 1 tablet by mouth daily. NIFEdipine CC 30 MG 24 hr tablet Commonly known as: Adalat CC Take 1 tablet by mouth daily. Do not crush, chew, or split. omeprazole [address] capsule Commonly known as: PriLOSEC Take 1 capsule by mouth every morning. Do not crush or chew. PROBIOTIC PO Take 1 capsule by mouth 1 (one) time each day. Provitalize's synergistic probiotic-herb blend rosuvastatin 10 MG tablet Commonly known as: Crestor Take 1 tablet by mouth daily for 14 days. selenium 200 MCG tablet Take 1 tablet by mouth daily. sertraline 50 MG tablet Commonly known as: Zoloft Take 1 tablet by mouth daily. * UNABLE TO FIND Med Name: Cod liver oil, 1000mg once daily * UNABLE TO FIND Med Name: Cyruta Plus, twice a day * This list has 2 medication(s) that are the same as other medications prescribed for you. Read thedirections carefully, and ask your doctor or other care provider to review them with you. Where to Get Your Medications These medications were sent to [facility] - [place], [place] - [address] [place] [id number] acetaminophen 500 MG tablet cyclobenzaprine 5 MG tablet dexamethasone 4 MG tablet levETIRAcetam 500 MG tablet NIFEdipine CC 30 MG 24 hr tablet Discharge Diagnosis Medical Problems Active and Resolved Hospital Problems Hospital Sensory deficit, right * (Principal) Brain tumor (benign) (CMS/HCC) Brain mass Obesity, Class III, BMI 40-49.9 (morbid obesity) Expressive aphasia Hypertension History of CVA (cerebrovascular accident) GERD (gastroesophageal reflux disease) Depression Hyponatremia Electrolyte disturbance Hyperglycemia Facial droop Focal seizure (CMS/HCC) Acute right-sided weakness Post Discharge Instructions Diet: Resume regular at home diet with 2L fluid restriction Lifting: No lifting more than 5 lbs until cleared by neurosurgery Activity: Move around as you are able Please continue seizure precautions: 1) Avoid sleep deprivation or other known seizure risk factors including alcohol 2) Avoid open bodies of water or open flames 3) Avoid situations where loss of consciousness may predispose to injury 4) Avoid swimming alone 5) Do not ride a bike or climb ladders without supervision. 6) Do not operate heavy machinery or equipment unless supervised and approved to do so. 7) Do not drive for at least 90 days after the date of the last seizure/spell or until cleared by your doctor Wound or Incision Care: Please do not take out your gaetano. They will be taken out during your clinic visit. Apply bacitracin to incision twice a day for 2 days following surgery Please do not apply any creams, lotions, gels, ointments or salves on your incision. Reason to call: if the incision feels warm or hot to the touch, is red or dark pink, is tight or swollen and looks shiny, becomes more tender or sore to the touch, incision smells bad and incision isdraining pus, bleeding or coming open. Bathing: You may shower 48 hours after surgery. Allow the water to wash over the incision. Do not let the shower jet hit the incision directly. Do not soak your incision. Do not scrub or rub your incision. Allow the soapy water to trickle down over your wound. Baby shampoo is recommended. Wash and then pat dry with a towel, do not rub. Keep the incision nice and clean. Take showers, not baths Please do not use a hot tub or swimming pool until cleared by NS. Instructed patient to call if: Temperature is above 101.5. Pain is not relieved by medications. You are throwing up or have diarrhea for more than 24 hours. Medication Instructions: Take Medication exactly as instructed. Do not take any medications that have not been ordered for you. This means do not take other people's medication, illegal drugs or substances, or even more medication than how it has been prescribed for you. Please take the stool softener prescribed as long as you are taking pain medication/narcotics. Please do not take more than 4,000 mg (4 gram) tylenol in 24 hours. Please continue Dexamethasone taper upon discharge. Please take your home omeprazole while using dexamethasone. Regimen as follows: -Dexamethasone 4mg tablet. Take 4 times a day. Stop after 1 days -Dexamethasone 4mg tablet. Take 3 times a day. Stop after 2 days -Dexamethasone 4mg tablet. Take 2 times a day. Stop after 3 days -Dexamethasone 2mg tablet. Take 2 times a day. Stop after 2 days Please do not take any NSAIDs for 2 weeks following surgery. This includes diclofenac, celebrex, meloxicam, ibuprofen, and naproxen. Please do not take aspirin for 2 weeks following surgery. Please stop Plavix. Defer to Neurology for need of resumption at your clinic follow up in 8-12 weeks. Antiepileptic medication (Keppra) should be taken as prescribed. The most common cause of seizures in patients with epilepsy is not taking the antiepileptic medication prescribed to prevent them Follow up with PCP for hyponatremia and hypertension in 1-2 weeks with repeat labs Outpatient Follow-Up Future Appointments Date Time Provider Department Center 03/10/2025 10:00 AM [facility]/16/[facility]25 9:30 AM Sanchez Zaldivar MD [facility] Test Results Pending At Discharge Pending Labs Order Current Status Surgical Pathology Exam In process Pertinent Physical Exam At Time of Discharge GEN: well developed, no acute distress. Obese habitus HEENT: normocephalic, atraumatic, no scleral icterus, oropharynx clear PULM: airways patent, non-labored breathing, normal effort. CV: normal rate and regular rhythm ABD: soft, non-tender, non-distended MSK: no joint swelling, normal range of motion SKIN: warm and dry, capillary refill <2 seconds PSYCHE: Unable to assess due to aphasia Neuro Exam GCS (EMV): 464 Awake, alert Oriented to self. Able to say her name Unable to assess orientation due to aphasia Right facial droop resolving Follows commands appropriately PERRL, EOMI KRAUSE symmetrically, no drift Strength 5/5 throughout Incision clean, dry, intact with gaetano in place. Swelling and ecchymosis noted Discharge Disposition/Condition Disposition: Home Condition: Stable (s/sx potential problems absent or manageable) I spent >30 minutes of patient care and instruction time in preparation for this discharge. Cosigned by Sanchez Zaldivar MD at 02/27/2025 1:15 PM EDT Associated attestation - Sanchez Zaldivar MD - 02/27/2025 1:15 PM EDT I saw and evaluated the patient with the resident/fellow. I discussed the case with the resident/fellow and agree with the findings and plan as documented. * Care Plan - Sherin Bynum RN - 02/26/2025 3:32 PM EDT Problem: Adult Inpatient Plan of Care Goal: Plan of Care Review Outcome: Ongoing, Progressing Flowsheets (Taken 02/26/2025 1531) Progress: improving Plan of Care Reviewed With: patient child Goal: Patient-Specific Goal (Individualized) Outcome: Ongoing, Progressing Goal: Absence of Hospital-Acquired Illness or Injury Outcome: Ongoing, Progressing Goal: Optimal Comfort and Wellbeing Outcome: Ongoing, Progressing Goal: Readiness for Transition of Care Outcome: Ongoing, Progressing Problem: Functional Deficit Goal: Improved Balance and Postural Control Outcome: Ongoing, Progressing Goal: Optimal Cognitive Function Outcome: Ongoing, Progressing Goal: Optimal Coordination Outcome: Ongoing, Progressing Goal: Improved Muscle Strength Outcome: Ongoing, Progressing Goal: Improved Muscle Tone Outcome: Ongoing, Progressing Goal: Optimal Range of Motion Outcome: Ongoing, Progressing Goal: Compensation for Sensory Deficit Outcome: Ongoing, Progressing Problem: Communication Impairment Goal: Effective Communication Skills Outcome: Ongoing, Progressing Problem: Infection Goal: Absence of Infection Signs and Symptoms Outcome: Ongoing, Progressing * Assessment & Plan Note - Anaya Felton APRN - 02/26/2025 11:34 AM EDT Associated Problem(s): Obesity, Class III, BMI 40-49.9 (morbid obesity) - Body mass index is 40.46 kg/m??. - Complicates all aspects of care and recovery * Assessment & Plan Note - Anaya Felton APRN - 02/26/2025 11:32 AM EDT Associated Problem(s): Brain tumor (benign) (CMS/HCC) - MRI head w/w/o - 02/24/25 s/p Left temporal craniotomy for tumor resection - f/u pathology - radiation oncology - will require 2 weeks of healing before radiation can be planned and delivered. We communicated toNeurosurgery that she may be seen as an ambulatory referral and formal consult once pathology has resulted and she has received surgical clearance. - consult medial oncology - We explained that we will ultimately need final pathology to give her a more detailed treatment plan but that it will likely consist of a combination of systemic and radiation therapy along with close surgical follow up. They would like to follow here at the [facility]. - final treatment planning pending final pathology - ambulatory referral to Radiation Oncology - follow up arranged with Medical Oncology 03/10/2025 - dexamethasone taper - PPI while on steroids - C/A/P CT scans negative for metastatic work-up - Hold all anticoagulation and antiplatelet medication - daily bowel regimen - Incentive spirometer q1h while awake - resume home medications as able - Avoid sedating medications as able - Nursing to assist patient out of bed to the chair 4 times a day. Up to the chair at each meal time (whether patient eats or not) and in the evening. - Ambulate in the hallway 3 times a day * Assessment & Plan Note - Anaya Felton APRN - 02/26/2025 11:32 AM EDT Associated Problem(s): Brain mass - MRI head w/w/o - 02/24/25 s/p Left temporal craniotomy for tumor resection - f/u pathology - radiation oncology - will require 2 weeks of healing before radiation can be planned and delivered. We communicated toNeurosurgery that she may be seen as an ambulatory referral and formal consult once pathology has resulted and she has received surgical clearance. - consult medial oncology - We explained that we will ultimately need final pathology to give her a more detailed treatment plan but that it will likely consist of a combination of systemic and radiation therapy along with close surgical follow up. They would like to follow here at the [facility]. - final treatment planning pending final pathology - ambulatory referral to Radiation Oncology - follow up arranged with Medical Oncology 03/10/2025 - dexamethasone taper - PPI while on steroids - C/A/P CT scans negative for metastatic work-up - Hold all anticoagulation and antiplatelet medication - daily bowel regimen - Incentive spirometer q1h while awake - resume home medications as able - Avoid sedating medications as able - Nursing to assist patient out of bed to the chair 4 times a day. Up to the chair at each meal time (whether patient eats or not) and in the evening. - Ambulate in the hallway 3 times a day * Assessment & Plan Note - Anaya Felton APRN - 02/26/2025 11:32 AM EDT Associated Problem(s): Sensory deficit, right - MRI head w/w/o - 02/24/25 s/p Left temporal craniotomy for tumor resection - f/u pathology - radiation oncology - will require 2 weeks of healing before radiation can be planned and delivered. We communicated toNeurosurgery that she may be seen as an ambulatory referral and formal consult once pathology has resulted and she has received surgical clearance. - consult medial oncology - We explained that we will ultimately need final pathology to give her a more detailed treatment plan but that it will likely consist of a combination of systemic and radiation therapy along with close surgical follow up. They would like to follow here at the [facility]. - final treatment planning pending final pathology - ambulatory referral to Radiation Oncology - follow up arranged with Medical Oncology 03/10/2025 - dexamethasone taper - PPI while on steroids - C/A/P CT scans negative for metastatic work-up - Hold all anticoagulation and antiplatelet medication - daily bowel regimen - Incentive spirometer q1h while awake - resume home medications as able - Avoid sedating medications as able - Nursing to assist patient out of bed to the chair 4 times a day. Up to the chair at each meal time (whether patient eats or not) and in the evening. - Ambulate in the hallway 3 times a day * Assessment & Plan Note - Anaya Felton APRN - 02/26/2025 11:32 AM EDT Associated Problem(s): Expressive aphasia - MRI head w/w/o - 02/24/25 s/p Left temporal craniotomy for tumor resection - f/u pathology - radiation oncology - will require 2 weeks of healing before radiation can be planned and delivered. We communicated toNeurosurgery that she may be seen as an ambulatory referral and formal consult once pathology has resulted and she has received surgical clearance. - consult medial oncology - We explained that we will ultimately need final pathology to give her a more detailed treatment plan but that it will likely consist of a combination of systemic and radiation therapy along with close surgical follow up. They would like to follow here at the [facility]. - final treatment planning pending final pathology - ambulatory referral to Radiation Oncology - follow up arranged with Medical Oncology 03/10/2025 - dexamethasone taper - PPI while on steroids - C/A/P CT scans negative for metastatic work-up - Hold all anticoagulation and antiplatelet medication - daily bowel regimen - Incentive spirometer q1h while awake - resume home medications as able - Avoid sedating medications as able - Nursing to assist patient out of bed to the chair 4 times a day. Up to the chair at each meal time (whether patient eats or not) and in the evening. - Ambulate in the hallway 3 times a day * Assessment & Plan Note - Anaya Felton APRN - 02/26/2025 11:15 AM EDT Associated Problem(s): Hyponatremia - Na 132 on admission. 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 Most recent Na 131. - Currently at her baseline and given that has been present for at least 6 months, less likely to need correction before OR. - Continue to hold diuretics - Etiology at this point unclear and possibly mutlifactorial given SSRI usage, brain mass, and hydrochlorothiazide use. Hydrochlorothiazide complicates the interpretation of urine studies. Given thatwe have been holding this, and Na has remained largely stable despite an attempt at a fluid restriction. If this represents SIADH 2/2 brain mass, we could see improvement s/p resection * Assessment & Plan Note - Anaya Felton APRN - 02/26/2025 11:15 AM EDT Associated Problem(s): Acute right-sided weakness - Keppra started outpatient by Neurology but discontinued due to significant drowsiness and no changes in RLE symptoms - 02/26 stroke alerted for worsening aphasia, right facial droop, and right upper and right lower extremity weakness. - later weakness/drift had resolved however right facial droop and worsening aphasia were still present. - CTH without acute hemorrhage - CTA Head/neck without large vessel occlusion. - Episode was likely a seizure. - EEG was ordered - Keppra increased 1500 mg BID - Neurology consulted - Routine EEG to assess for subclinical focal seizure - Continue Keppra 1 g BID; no evidence of clinical seizure at this time & consider titrating based on rEEG result - Continue secondary stroke ppx with Atorvastatin 80 mg nightly and ASA 81 mg daily when deemed appropriate by primary team for possible fibromuscular dysplasia & concern for perioperative stroke - Blood pressure goals: Normotensive - Sodium Goals: Normonatremia - recommend PT/OT/PRESIDENT ERGONOMIC CONSULTING evaluation - No indication to obtain echo with most recently obtained on 09/2024 - follow-up w/[facility] in 8-12 weeks following discharge * Assessment & Plan Note - Anaya Felton APRN - 02/26/2025 11:15 AM EDT Associated Problem(s): Facial droop - Keppra started outpatient by Neurology but discontinued due to significant drowsiness and no changes in RLE symptoms - 02/26 stroke alerted for worsening aphasia, right facial droop, and right upper and right lower extremity weakness. - later weakness/drift had resolved however right facial droop and worsening aphasia were still present. - CTH without acute hemorrhage - CTA Head/neck without large vessel occlusion. - Episode was likely a seizure. - EEG was ordered - Keppra increased 1500 mg BID - Neurology consulted - Routine EEG to assess for subclinical focal seizure - Continue Keppra 1 g BID; no evidence of clinical seizure at this time & consider titrating based on rEEG result - Continue secondary stroke ppx with Atorvastatin 80 mg nightly and ASA 81 mg daily when deemed appropriate by primary team for possible fibromuscular dysplasia & concern for perioperative stroke - Blood pressure goals: Normotensive - Sodium Goals: Normonatremia - recommend PT/OT/PRESIDENT ERGONOMIC CONSULTING evaluation - No indication to obtain echo with most recently obtained on 09/2024 - follow-up w/[facility] in 8-12 weeks following discharge * Assessment & Plan Note - Anaya Felton APRN - 02/26/2025 11:15 AM EDT Associated Problem(s): Focal seizure (CMS/HCC) - Keppra started outpatient by Neurology but discontinued due to significant drowsiness and no changes in RLE symptoms - 02/26 stroke alerted for worsening aphasia, right facial droop, and right upper and right lower extremity weakness. - later weakness/drift had resolved however right facial droop and worsening aphasia were still present. - CTH without acute hemorrhage - CTA Head/neck without large vessel occlusion. - Episode was likely a seizure. - EEG was ordered - Keppra increased 1500 mg BID - Neurology consulted - Routine EEG to assess for subclinical focal seizure - Continue Keppra 1 g BID; no evidence of clinical seizure at this time & consider titrating based on rEEG result - Continue secondary stroke ppx with Atorvastatin 80 mg nightly and ASA 81 mg daily when deemed appropriate by primary team for possible fibromuscular dysplasia & concern for perioperative stroke - Blood pressure goals: Normotensive - Sodium Goals: Normonatremia - recommend PT/OT/PRESIDENT ERGONOMIC CONSULTING evaluation - No indication to obtain echo with most recently obtained on 09/2024 - follow-up w/[facility] in 8-12 weeks following discharge * Progress Notes - Anaya Felton APRN - 02/26/2025 11:06 AM EDT Images from the original note were not included. Neurosurgery Progress Note Today's Date: 02/26/2025 Hospital course: Wali Murrell is a 64 y.o. female with pmhx of HTN, previous stroke on ASA/Plavix presenting with word finding difficulty and newly discovered left insular mass. Now, s/p Left temporal craniotomy for tumor resection on 02/24/25 Subjective Last 24 hours: Patient was stroke alerted this morning for worsening aphasia, right facial droop, and right upper and right lower extremity weakness. Upon assessment, weakness/drift had resolved however right facial droop and worsening aphasia were still present. CTH without acute hemorrhage.. CTA Head/neck without large vessel occlusion. Episode was likely a seizure. EEG was ordered. Maintenance Keppra dose increased 1500 mg BID. Continues to have hyponatremia. Blood pressure better managed with nifedipine. Recommend follow up with PCP Review of Systems HENT: Negative for trouble swallowing. Eyes: Negative for visual disturbance. Respiratory: Negative for shortness of breath. Cardiovascular: Negative for chest pain. Gastrointestinal: Negative for constipation and nausea. Genitourinary: Negative for difficulty urinating. Neurological: Positive for speech difficulty. Negative for dizziness, weakness, numbness and headaches. Objective Medications Current Facility-Administered Medications Medication Dose Route Frequency Provider Last Rate Last Admin acetaminophen (Tylenol) tablet 1,000 mg 1,000 mg Oral q6h RAJ John Bhat MD 1,000 mg at02/26/25 1118 acetaminophen (Tylenol) tablet 650 mg 650 mg Oral q6h PRN Anaya Felton APRN bacitracin (1g packet) ointment 1 packet 1 packet Topical BID Anaya Felton APRN 1 packet at 02/26/25 1125 bisacodyl (Dulcolax) suppository 10 mg 10 mg Rectal Daily PRN Anaya Felton APRN cyclobenzaprine (Flexeril) tablet 5 mg 5 mg Oral TID John Bhat MD 5 mg at 02/26/25 0947 cyclobenzaprine (Flexeril) tablet 5 mg 5 mg Oral TID PRN Anaya Felton APRN dexamethasone (Decadron) tablet 4 mg 4 mg Oral 4x daily Michael Jain 4 mg at 02/26/25 1118 Followed by [START ON 02/28/2025] dexamethasone (Decadron) tablet 4 mg 4 mg Oral TID Michael Jain Followed by [START ON 03/02/2025] dexamethasone (Decadron) tablet 4 mg 4 mg Oral BID Michael Jain Followed by [START ON 03/05/2025] dexamethasone (Decadron) tablet 2 mg 2 mg Oral BID Michael Jain heparin (porcine) injection 7,500 Units 7,500 Units Subcutaneous q8h Anaya Felton APRN 7,500 Units at 02/26/25 0948 hydrALAZINE (Apresoline) injection 10 mg 10 mg Intravenous q1h PRN Katharine Oreilly MD 10 mg at 02/22/25 2141 Or hydrALAZINE (Apresoline) injection 20 mg 20 mg Intravenous q1h PRN Katharine Oreilly MD 20 mg at 02/23/25 0514 labetalol (Normodyne,Trandate) injection 10 mg 10 mg Intravenous q1h PRN Katharine Oreilly MD Or labetalol (Normodyne,Trandate) injection 20 mg 20 mg Intravenous q1h PRN Katharine Oreilly MD levETIRAcetam (Keppra) tablet 1,500 mg 1,500 mg Oral BID Anaya Felton APRN 1,500 mg at 8 lisinopril tablet 20 mg 20 mg Oral BID Anaya Felton AUTOCUTTER 20 mg at 02/26/25 0947 nebivolol (Bystolic) tablet 5 mg 5 mg Oral Daily Ranjana Yu MD 5 mg at 02/26/25917 NIFEdipine XL (Procardia XL) 24 hr tablet 30 mg 30 mg Oral Daily Anaya Felton AUTOCUTTER 30 mg at 02/26/25 0947 ondansetron ODT (Zofran-ODT) disintegrating tablet 4 mg 4 mg Oral q6h PRN Katharine Oreilly MD Or ondansetron (Zofran) injection 4 mg 4 mg Intravenous q6h PRN Katharine Oreilly MD pantoprazole (Protonix) EC tablet 40 mg 40 mg Oral Daily Hakan Jainus A 40 mg at 02/26/25 0947 polyethylene glycol (Miralax) packet 17 g 17 g Oral BID Anaya Felton APRN 17 g at 02/25/25 2218 senna-docusate (Maggy-Colace) 8.6-50 MG per tablet 2 tablet 2 tablet Oral BID Anaya Felton APRN 2 tablet at 02/26/25 0947 sertraline (Zoloft) tablet 50 mg 50 mg Oral Daily Susy Michael A 50 mg at 02/26/25 0948 sodium chloride 0.9 % flush 10 mL 10 mL Intravenous q12h Katharine Oreilly MD 10 mL at 02/25/25 2222 And sodium chloride 0.9 % flush 10 mL 10 mL Intravenous PRN Katharine Oreilly MD Last Recorded Vitals Visit Vitals BP 111/74 Pulse 68 Temp 36.4 ??C (97.6 ??F) Resp 16 Ht 1.676 m (5' 6 ) Wt 114 kg (250 lb 10.6 oz) SpO2 92% BMI 40.46 kg/m?? OB Status Postmenopausal Smoking Status Never BSA 2.3 m?? Labs Labs in last 18 hours CBC WBC 14.93 (H) Hb 12.3 Plt 349 Hct 36.1 BMP Na 128 (L) Cl 94 (L) BUN 16 Glu 128 (H) K 4.5 Co2 22 Cr 0.61 Outputs No intake or output data in the 24 hours ending 02/26/25 1134 Output by Drain (mL) 02/24/25 0700 - 02/24/25 1859 02/24/25 1900 - 02/25/25 0659 02/25/25 0700 - 02/25/25 1859 02/25/25 1900 - 02/26/25 0659 02/26/25 0700 - 02/26/25 1134 Patient has no LDAs of requested type attached. Physical Exam GEN: well developed, no acute distress. Obese habitus HEENT: normocephalic, atraumatic, no scleral icterus, oropharynx clear PULM: airways patent, non-labored breathing, normal effort. CV: normal rate and regular rhythm ABD: soft, non-tender, non-distended MSK: no joint swelling, normal range of motion SKIN: warm and dry, capillary refill <2 seconds PSYCHE: Unable to assess due to aphasia Neuro Exam GCS (EMV): 464 Awake, alert Unable to assess orientation due to aphasia Worsening aphasia Right facial droop Follows commands appropriately PERRL, EOMI KRAUSE symmetrically, no drift Incision clean, dry, intact with gaetano in place. Swelling and ecchymosis noted Imaging 02/22/25 MR HEAD W AND WO IV CONTRAST IMPRESSION: Stable heterogeneously enhancing mass in the left posterior insula and adjacent temporal lobe. 02/17/25 MR HEAD W AND WO IV CONTRAST IMPRESSION: Heterogeneously enhancing mass in the left insula and temporal lobe. The appearance is most consistent with primary brain neoplasm such as glioblastoma or other high-grade glioma. Metastasis is felt to be less likely. 02/16/25 CT Chest/Abdomen/Pelvis w IV contrast IMPRESSION: 1. No acute findings in the chest, abdomen and pelvis. 2. No evidence of metastatic disease or underlying neoplasm in the chest, abdomen and pelvis. 02/16/[address]: IMPRESSION: Mass noted in the left insula and posterior temporal region. This is most concerning for primary brain neoplasm and can be further evaluated with MRI. 02/16/25 Neck CTA: IMPRESSION: 1.Possible fibromuscular dysplasia in the cervical internal carotid arteries bilaterally. 2.Moderate stenosis of the cervical right vertebral artery. 02/16/25 Head CTA: IMPRESSION: No hemodynamically significant intracranial arterial stenosis or aneurysm is present. Imaging was reviewed on am rounds with team and agree with above Assessment and Plan Wali Murrell is a 64 y.o. female with pmhx of HTN, previous stroke on ASA/Plavix presenting with word finding difficulty and newly discovered left insular mass. Now, s/p Left temporal craniotomy fortumor resection on 02/24/25 Length of stay: 10 d Attending: Ned Menendez MD Assessment & Plan Brain tumor (benign) (CMS/HCC) Brain mass Sensory deficit, right Expressive aphasia - MRI head w/w/o - 02/24/25 s/p Left temporal craniotomy for tumor resection - f/u pathology - radiation oncology - will require 2 weeks of healing before radiation can be planned and delivered. We communicated toNeurosurgery that she may be seen as an ambulatory referral and formal consult once pathology has resulted and she has received surgical clearance. - consult medial oncology - We explained that we will ultimately need final pathology to give her a more detailed treatment plan but that it will likely consist of a combination of systemic and radiation therapy along with close surgical follow up. They would like to follow here at the [facility]. - final treatment planning pending final pathology - ambulatory referral to Radiation Oncology - follow up arranged with Medical Oncology 03/10/2025 - dexamethasone taper - PPI while on steroids - C/A/P CT scans negative for metastatic work-up - Hold all anticoagulation and antiplatelet medication - daily bowel regimen - Incentive spirometer q1h while awake - resume home medications as able - Avoid sedating medications as able - Nursing to assist patient out of bed to the chair 4 times a day. Up to the chair at each meal time (whether patient eats or not) and in the evening. - Ambulate in the hallway 3 times a day Acute right-sided weakness Facial droop Focal seizure (CMS/HCC) - Keppra started outpatient by Neurology but discontinued due to significant drowsiness and no changes in RLE symptoms - 02/26 stroke alerted for worsening aphasia, right facial droop, and right upper and right lower extremity weakness. - later weakness/drift had resolved however right facial droop and worsening aphasia were still present. - CTH without acute hemorrhage - CTA Head/neck without large vessel occlusion. - Episode was likely a seizure. - EEG was ordered - Keppra increased 1500 mg BID - Neurology consulted - Routine EEG to assess for subclinical focal seizure - Continue Keppra 1 g BID; no evidence of clinical seizure at this time & consider titrating based on rEEG result - Continue secondary stroke ppx with Atorvastatin 80 mg nightly and ASA 81 mg daily when deemed appropriate by primary team for possible fibromuscular dysplasia & concern for perioperative stroke - Blood pressure goals: Normotensive - Sodium Goals: Normonatremia - recommend PT/OT/PRESIDENT ERGONOMIC CONSULTING evaluation - No indication to obtain echo with most recently obtained on 09/2024 - follow-up w/[facility] in 8-12 weeks following discharge Hyponatremia - Na 132 on admission. 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 Most recent Na 131. - Currently at her baseline and given that has been present for at least 6 months, less likely to need correction before OR. - Continue to hold diuretics - Etiology at this point unclear and possibly mutlifactorial given SSRI usage, brain mass, and hydrochlorothiazide use. Hydrochlorothiazide complicates the interpretation of urine studies. Given thatwe have been holding this, and Na has remained largely stable despite an attempt at a fluid restriction. If this represents SIADH 2/2 brain mass, we could see improvement s/p resection Hypertension - resume home medications as appropriate - 02/23 started nifedipine - will need to follow up with PCP for blood pressure management - continue holding hydrochlorothiazide - SPB < 140 - prn labetalol and hydralazine - continue to monitor - Hospital Medicine recommendations from 02/25 - Continue to hold hydrochlorothiazide to avoid worsening hyponatremia. - Will continue to monitor BP s/p craniotomy - Continue Nifedipine 30 History of CVA (cerebrovascular accident) - holding ASA and plavix for surgical intervention - continue statin GERD (gastroesophageal reflux disease) - takes omeprazole at home - pantoprazole while inpatient Depression - resume sertraline Electrolyte disturbance - Hypophosphatemia - Hypomagnesemia - will replace per sliding scale protocol - continue to monitor - follow up labs Hyperglycemia - likely steroid related - A1c 5.7 - Insulin SQ sliding scale - Continue to monitor - consider Diabetic diet as needed Obesity, Class III, BMI 40-49.9 (morbid obesity) - Body mass index is 40.46 kg/m??. - Complicates all aspects of care and recovery F: saline lock IV / PO intake E: Monitor and replace prn N: Regular diet + 1L fluid restriction PPX: SCDs, SQH Medically Ready for Discharge:Anticipated Today Thank you for allowing us to participate in the care of this patient. Please call with any questions or concerns. Anaya Felton, CARIDAD, AUTOCUTTER Advanced Practice Provider Department of Neurosurgery [facility] * Progress Notes - Jules Wagner, PharmD - 02/26/2025 9:06 AM EDT Pharmacy Stroke Evaluation Note Wali Murrell is a 64 y.o. female with pmhx of HTN, previous stroke on ASA/Plavix presenting with word finding difficulty and newly discovered left insular mass. Now, s/p Left temporal craniotomy fortumor resection on 02/24/25. Alerted as an inpatient stroke alert for new onset aphasia/facial droop. LKN: 02/26 @ 0000 PMH: Past Medical History: Diagnosis Date Brain bleed (CMS/HCC) 09/02/2024 Small, went to ER Headache Hypertension Time of arrival to the ED: 02/16/2025 3:08 PM Pertinent Vitals, Labs, and Medications Baseline CT: Rules out hemorrhage or non-stroke cause of deficit Blood Pressure: BP Readings from Last 1 Encounters: 02/26/25 139/81 Laboratory Values: INR Date Value Ref Range Status 02/26/2025 1.0 0.9 - 1.1 Final Anti Xa Level Unfractionated Heparin Date Value Ref Range Status 02/16/2025 <0.11 <1.00 IU/mL Final Platelet Count Date Value Ref Range Status 02/26/2025 349 155 - 369 10*3/uL Final POCT Glucose Date Value Ref Range Status 02/26/2025 143 (H) 74 - 99 mg/dL Final Comment: Accuracy of a glucose result obtained from a capillary whole blood specimen relies upon adequate, non-compromised capillary blood flow. If the capillary glucose result is not consistent with the patient's clinical signs and symptoms, glucose testing should be repeated with either an arterial or venous sample on the glucometer or sent to the main labortory for testing. NIHSS: 5 NIHSS obtained prior to CT scan?: Yes Time of call to neurology attending for Thrombolytics eligibility: Date: N/A Time: N/A Time of neurology attending approval for Thrombolytics administration: Date: N/A Time: N/A Medications Prior to Arrival: Anticoagulants: SQH prophlyaxis (7500 units TID d/t BMI) Antiplatelets: Patient is not prescribed oral antiplatelet agents. Evaluation for the Use of Thrombolytics: Patient was evaluated for thrombolytics and determined: Patient is not a candidate for thrombolytics. Contraindications: Outside the 3-4.5 hour window and tumor resection on 02/24 Jules Wagner PharmD PGY1 Acute Care Resident Available on secure chat * Consults - Luis Fernando Silva MD - 02/26/2025 8:14 AM EDTAssociated Order(s): Consult to Neurology Images from the original note were not included. Neurology stroke alert note Consult to Neurology Consult performed by: Luis Fernando Silva MD Consult ordered by: Ned Menendez MD Reason for consult: stroke alert Chief Complaint: patient presented as a stroke alert History of present illness: Wali Murrell is a 64 year old female with pmhx significant for HTN, T2DM, depression, GERD, and reported focal seizure who initially presented on 02/16/2025 with expressive aphasia and was found to have a newly discovered left temporal insular mass status post resection on 02/24/2025. On 02/26/2025, the patient was noted to have worsening aphasia, right facial droop, and right upper and right lower extremity weakness prompting an inpatient stroke alert. The patient was seen immediately upon arrival. LKN is 0000 on 02/26. NIHSS on evaluation is 5. Upon chart review: The patient initially presented to the Neurology Service from 09/22 to 09/25/2024 after presenting with a positive right-sided sensory deficits found have a focus of mild restricted diffusion enhancement of the left posterior insula indicating some edema, nonspecific finding consistent with possible subacute ischemia. She was subsequently started on Keppra 1500 mg twice daily for concern for focal seizure. She was started on secondary stroke prophylaxis including aspirin and atorvastatin. Her sensory symptoms did not improve with the Keppra in the dose was tapered and discontinued. The patient then re-presented to the emergency department on 02/16/2025 with episodic ex pressive aphasia for 3 days was admitted to the inpatient service for further evaluation. The patient was ultimately admitted to the medicine team was found to have a left insular mass. Metastatic workup including CT chest abdomen pelvis were negative for metastatic workup. The patient was subsequently started on Keppra inpatient for seizure prophylaxis. The patient is now status post resection on 02/24/2025. Surgical pathology pending at this time. Neuroimaging obtained including CT head demonstrated postsurgical changes from left craniotomy withsurgical cavity in the left posterior sylvian region/in his with major. CTA head and neck demonstrated no large vessel occlusion and mild irregularity and ablated contour of the cervical and acquiredas good could be due to possible fibromuscular dysplasia. Moderate stenosis of the right V2 segment. - Use of prior antiplatelet/anticoagulant agents: No - Candidate for intravenous thrombolysis (tNK) No If no tNK, why not: recent neurosurgical intervention (02/24/2025) & outside the window - LVO No - Candidate for thrombectomy No - If not, why not no eLVO ROS: ROS unable to be obtained d/t pt aphasia PMed/SurgHx: Past Medical History[1] Surgical History[2] Outpatient Medications: Current Outpatient Medications Medication Instructions aspirin 81 mg, Every morning clopidogrel (PLAVIX) 75 mg, Oral, Every morning coenzyme Q-10 400 mg, Daily fish oil (OMEGA-3) 2,400 mg, Daily hydroCHLOROthiazide (HYDRODIURIL) 25 mg, 2 times daily levETIRAcetam (KEPPRA) 1,500 mg, Oral, 2 times daily lisinopril 20 mg, 2 times daily Magnesium Bisglycinate (MAG GLYCINATE PO) 800 mg, Nightly nebivolol (BYSTOLIC) 5 mg, Daily omeprazole (PRILOSEC) 40 mg, Every morning Probiotic Product (PROBIOTIC PO) 1 capsule, Daily rosuvastatin (CRESTOR) 10 mg, Oral, Daily selenium 200 mcg, Daily sertraline (ZOLOFT) 50 mg, Daily UNABLE TO FIND Med Name: Cod liver oil, 1000mg once daily UNABLE TO FIND Med Name: Cyruta Plus, twice a day Allergies: Allergies[3] Family Hx: Family History[4] Social Hx: Social History Socioeconomic History Marital status: Single Spouse name: Not on file Number of children: Not on file Years of education: Not on file Highest education level: Not on file Occupational History Not on file Tobacco Use Smoking status: Never Smokeless tobacco: Never Substance and Sexual Activity Alcohol use: Never Comment: No alcohol at all Drug use: Never Sexual activity: Not Currently Partners: Male control/protection: Post-menopausal Comment: Not sexually active for greater than 30 years Other Topics Concern Not on file Social History Narrative Not on file Social Drivers of Health Financial Resource Strain: Not on file Food Insecurity: No Food Insecurity (02/19/2025) Hunger Vital Sign Worried About Running Out of Food in the Last Year: Never true Ran Out of Food in the Last Year: Never true Transportation Needs: No Transportation Needs (02/19/2025) PRAPARE - Transportation Lack of Transportation (Medical): No Lack of Transportation (Non-Medical): No Physical Activity: Not on file Stress: Not on file Social Connections: Unknown (06/18/2023) Received from [facility] Family and Community Support Help with Day-to-Day Activities: Not on file Lonely or Isolated: Not on file Intimate Partner Violence: Not At Risk (02/19/2025) Humiliation, Afraid, Rape, and Kick questionnaire Fear of Current or Ex-Partner: No Emotionally Abused: No Physically Abused: No Sexually Abused: No Housing Stability: Low Risk (02/19/2025) Housing Stability Vital Sign Unable to Pay for Housing in the Last Year: No Number of Times Moved in the Last Year: 1 Homeless in the Last Year: No Current Outpatient Medications Medication Instructions aspirin 81 mg, Every morning clopidogrel (PLAVIX) 75 mg, Oral, Every morning coenzyme Q-10 400 mg, Daily fish oil (OMEGA-3) 2,400 mg, Daily hydroCHLOROthiazide (HYDRODIURIL) 25 mg, 2 times daily levETIRAcetam (KEPPRA) 1,500 mg, Oral, 2 times daily lisinopril 20 mg, 2 times daily Magnesium Bisglycinate (MAG GLYCINATE PO) 800 mg, Nightly nebivolol (BYSTOLIC) 5 mg, Daily omeprazole (PRILOSEC) 40 mg, Every morning Probiotic Product (PROBIOTIC PO) 1 capsule, Daily rosuvastatin (CRESTOR) 10 mg, Oral, Daily selenium 200 mcg, Daily sertraline (ZOLOFT) 50 mg, Daily UNABLE TO FIND Med Name: Cod liver oil, 1000mg once daily UNABLE TO FIND Med Name: Cyruta Plus, twice a day Vital Signs: Vitals: 02/26/25 0418 BP: (!) 145/76 Pulse: 72 Resp: Temp: 37.1 ??C (98.7 ??F) SpO2: 91% Physical Examination: Constitutional: Appears stated age in no acute distress Ears, Nose, Mouth, Throat: Mucous membranes appear moist. Eyes: Anicteric sclera. No appreciable conjunctival injection. Cardiovascular:. No appreciable edema. Respiratory: Symmetric chest expansion. Non-labored breathing. Gastrointestinal: No abdominal distention. No abdominal tenderness Genitourinary: No appreciable bladder distention. Musculoskeletal: No appreciable joint swelling. Psychiatric: Appropriate mood and affect. NEURO: Mental Status: Alert, oriented to name, but not place or time, interactive, able to mimic commands Speech: Wernicke's Aphasia CN 2-12: II - PERRLA III, IV, - EOMI V - Facial sensation intact VII - Right Facial asymmetry VIII - Auditory acuity grossly intact IX, X - Palate elevation symmetric, uvula midline XI - SCM and Trapezius strength intact XII - Tongue protrudes midline Motor: RUE: 4/5 LUE: 5/5 RLE: 5/5 LLE: 5/5 Sensory: intact light touch and pinprick throughout Reflexes: 2+ throughout; no hoffmans or ankle clonus Coordination: no ataxia with uqyqhn-rb-tyzx and ngnm-nl-ibtz testing Gait/Station: Not observed Cortical: No Extinction Labs: Labs in last 18 hours CBC WBC 15.84 (H) Hb 12.1 Plt 332 Hct 35.8 ANC ?? INR ??, PTT ??, Anti-Xa ?? BMP Na 129 (L) Cl 97 BUN 17 Glu 133 (H) K 4.5 Co2 24 Cr 0.64 Ca 9.2 iCa ?? Mg 2.0, Phos 3.5 Lactate ?? LFT AST ?? AlkPhos ?? T Prot ?? ALK ?? Bili ?? Alb ?? D.Bili ?? Laboratory data: Labs personally reviewed and interpreted, significant for: Leukocytosis, hyponatremia Imaging/Studies: Independently viewed and interpreted imaging and reviewed imaging reports, significant findings recorded below: CT Head: Redemonstrated prior left insular and posterior temporal mass status post resection with moderate amount of extra-axial fluid, blood, and air with compression of the left hemisphere and slight subfalcine herniation. CTA H/N: Possible fibromuscular dysplasia of the cervical internal carotid arteries bilaterally. Moderate stenosis of the cervical right vertebral artery. No large vessel occlusion. MRI w/wo 02/16: Heterogeneous enhancing mass in the left insular and temporal lobe consistent with a primary brain neoplasm such as glioblastoma or other high- grade glioma. MRI w/wo 02/25: post-operative left craniotomy and tumor resection. Moderate amount of blood & air w/ compression of left frontal lobe & mild subfalcine herniation Viz Utilized: Yes ICH Score if applicable: Score/NA: Not Applicable Pre-morbid mRS: 1 No significant disability despite symptoms; able to carry out all usual duties and activities Assessment/Plan: Wali Murrell is a 64 year old female with pmhx significant for HTN, Previous stroke on DAPT who initially presented on 02/16/2025 with expressive aphasia and was found to have a newly discovered left temporal insular mass status post resection on 02/24/2025. On 02/26/2025, the patient was noted to have worsening aphasia, right facial droop, and right upper and right lower extremity weakness prompting an inpatient stroke alert. LKN is 0000 on 02/26. NIHSS on evaluation is 5. #Left Temporal Insular & Temporal Mass (POA) s/p resection 02/24 c/b cerebral edema, brain compression & pneumocephalus #Wernicke's Aphasia (POA) #Right Facial paresis (POA) #Mild Right Upper Extremity Paresis (POA) #Focal Seizure (POA) #Moderate Stenosis of V2 segment of Right Vertebral Artery (POA) #Possible Fibromuscular Dysplasia of b/l Carotid Arteries (POA) - Mechanism: most likely explanation for patients current clinical picture is from the known primary brain malignancy w/ post-op evolutionary mass effect, edema, and blood products. Its possible patient experienced maggy-operative stroke given vasculature structures surrounding the area. Its also possible patient is experiencing focal seizures given structural abnormalities, electrolyte disturbances, edema, and compression. - LKN: 0000 on 02/26 - Risk Factors: age, HTN, HLD, T2DM - NIHSS Score: 5 Neuroimaging: - CT Head: postsurgical left craniotomy w/ tumor resection within left presylvian fissure & insular region. - CTA Head and neck: Possible fibromuscular dysplasia of the cervical internal carotid arteries bilaterally. Moderate stenosis of the cervical right vertebral artery. No large vessel occlusion. - MRI w/wo 02/16: Heterogeneous enhancing mass in the left insular and temporal lobe consistent with a primary brain neoplasm such as glioblastoma or other high-grade glioma. - MRI w/wo 02/25: Interval operative changes left craniotomy and tumor resection. Moderate amount ofextra-axial fluid blood air with compression of the left hemisphere and increase in some falcine herniation so shift of midline structures. - tNK: not given due to recent neurosurgical intervention and outside the window - Thrombectomy: not performed due to no LVO -Echo 09/24/2024: LVEF 55-60%, moderate increase size of LA, no PFO - CT head and CTA were reviewed using Nayeli and discussed with attending Recommendations: - Routine EEG to assess for subclinical focal seizure - Continue Keppra 1 g BID; no evidence of clinical seizure at this time & consider titrating based on rEEG result - Continue secondary stroke ppx with Atorvastatin 80 mg nightly and ASA 81 mg daily when deemed appropriate by primary team for possible fibromuscular dysplasia & concern for perioperative stroke - Blood pressure goals: Normotensive - Sodium Goals: Normonatremia - recommend PT/OT/PRESIDENT ERGONOMIC CONSULTING evaluation - No indication to obtain echo with most recently obtained on 09/2024 - follow-up /[facility] in 8-12 weeks following discharge #Chronic Asymptomatic Hyponatremia (POA) -Na ranging 127-134; today 129 -etiology concerning for SIADH iso brain mass or possible medication induced Plan: -continue to monitor #Leukocytosis (POA) WBC 10--> 14.93 on 02/26 -afebrile, HDS, on RA -no overt signs of infectious process -etiology most likely reactive / recent surgical intervention Plan: -monitor ----- Chronic Medical Conditions managed during admission (POA): ----- #HTN #T2DM #Depression #GERD Rest per Primary Team Case discussed with attending physician Dr Gunderson. Please see attending follow up for additional details/changes. Luis Fernando Silva MD Neurology, PGY-2 NIH Stroke Scale Interval: At time of consult Date: 02/26/2025 Person Administering Scale: Luis Fernando Silva MD Administer stroke scale items in the order listed. Record performance in each category after each subscale exam. Do not go back and change scores. Follow directions provided for each exam technique. Scores should reflect what the patient does, not what the clinician thinks the patient can do. The clinician should record answers while administering the exam and work quickly. Except where indicated, the patient should not be coached (i.e., repeated requests to patient to make a special effort). 1a Level of consciousness: 0=alert; keenly responsive 1b. LOC questions: 2=Performs neither task correctly 1c. LOC commands: 0=Performs both tasks correctly 2. Best Gaze: 0=normal 3. Visual: 0=No visual loss 4. Facial Palsy: 1=Minor paralysis (flattened nasolabial fold, asymmetric on smiling) 5a. Motor left arm: 0=No drift, limb holds 90 (or 45) degrees for full 10 seconds 5b. Motor right arm: 0=No drift, limb holds 90 (or 45) degrees for full 10 seconds 6a. motor left le=No drift, limb holds 90 (or 45) degrees for full 10 seconds 6b Motor right le=No drift, limb holds 90 (or 45) degrees for full 10 seconds 7. Limb Ataxia: 0=Absent 8. Sensory: 0=Normal; no sensory loss 9. Best Language: 2=Severe Aphasia; fragmentary expression, unintelligible response 10. Dysarthria: 0=Normal 11. Extinction and Inattention: 0=No abnormality Total: 5 [1] Past Medical History: Diagnosis Date Brain bleed ([facility]) 09/02/2024 Small, went to ER Headache Hypertension [2] History reviewed. No pertinent surgical history. [3] Allergies Allergen Reactions Codeine Nausea [4] History reviewed. No pertinent family history. Cosigned by Kassandra Gunderson MD at 02/26/2025 6:05 PM EDT Associated attestation - Kassandra Gunderson MD - 02/26/2025 6:05 PM EDT I saw and evaluated the patient with the resident/fellow. I discussed the case with the resident/fellow and agree with the findings and plan as documented. No evidence of acute ischemic stroke causing her clinical worsening. Recommend routine EEG for evaluate for the possibility of localized cortical irritation, for which Keppra may not be adequate treatment. Suspect worsening is simply from postoperative edema/shift and would expect improvement in the days and weeks ahead. * Assessment & Plan Note - Anaya Felton APRN - 02/26/2025 7:32 AM EDT Associated Problem(s): History of CVA (cerebrovascular accident) - holding ASA and plavix for surgical intervention - continue statin * Assessment & Plan Note - Anaya Felton APRN - 02/26/2025 7:32 AM EDT Associated Problem(s): Hypertension - resume home medications as appropriate - 02/23 started nifedipine - will need to follow up with PCP for blood pressure management - continue holding hydrochlorothiazide - SPB < 140 - prn labetalol and hydralazine - continue to monitor - Hospital Medicine recommendations from 02/25 - Continue to hold hydrochlorothiazide to avoid worsening hyponatremia. - Will continue to monitor BP s/p craniotomy - Continue Nifedipine 30 * Assessment & Plan Note - Anaya Felton APRN - 02/26/2025 7:32 AM EDT Associated Problem(s): GERD (gastroesophageal reflux disease) - takes omeprazole at home - pantoprazole while inpatient * Assessment & Plan Note - Anaya Felton APRN - 02/26/2025 7:32 AM EDT Associated Problem(s): Depression - resume sertraline * Assessment & Plan Note - Anaya Felton APRN - 02/26/2025 7:32 AM EDT Associated Problem(s): Electrolyte disturbance - Hypophosphatemia - Hypomagnesemia - will replace per sliding scale protocol - continue to monitor - follow up labs * Assessment & Plan Note - Anaya Felton APRN - 02/26/2025 7:32 AM EDT Associated Problem(s): Hyperglycemia - likely steroid related - A1c 5.7 - Insulin SQ sliding scale - Continue to monitor - consider Diabetic diet as needed * Care Plan - Gian Taylor RN - 02/26/2025 1:33 AM EDT Problem: Adult Inpatient Plan of Care Goal: Plan of Care Review 02/26/2025 0132 by Gian Taylor RN Flowsheets (Taken 02/26/2025 0132) Progress: improving Plan of Care Reviewed With: patient child 02/26/2025 0131 by Gian Taylor RN Outcome: Ongoing, Progressing Flowsheets (Taken 02/25/2025 1045 by Sherin Bynum RN) Progress: improving Plan of Care Reviewed With: patient child * Consults - Darrell Abreu MD - 02/25/2025 5:31 PM EDTAssociated Order(s): Inpatient consult to Oncology Inpatient consult to Oncology Consult performed by: Darrell Abreu MD Consult ordered by: Anaya Felton APRN Medical Oncology Consult Note Date: 02/25/25 Reason for Consult: brain tumor Assessment/Plan Problem list: Left insular brain mass, suspect primary [employer] malignancy Expressive aphasia Wali Murrell is 64 y.o. who presented with new word-finding difficulties found to have a large left tonsillar mass now status post subtotal resection. Oncology is consulted for further recommendations and expedite follow up. Summary of recommendations: - final treatment planning pending final pathology - ambulatory referral to Radiation Oncology - follow up arranged with Medical Oncology 03/10/2025 Oncology will continue to follow. Recommendations were communicated to the primary service. Please call with additional questions or concerns. History of Present Illness Ms. Wali Murrell is a 64-year-old female with a history of hypertension and prior stroke who presented with new word-finding difficulties and was discovered to have a left insular mass. She is status post left temporal craniotomy on 02/24/2025. At the time of our interview this afternoon she was feeling well and recovering well from surgery. Her surgical site looked good and she denies pain or drainage. She has no significant motor or sensory deficits to speak of at present, ongoing modest word-finding difficulties. Family is present at bedside. We explained that we will ultimately need final pathology to give her a more detailed treatment plan but that it will likely consist of a combination of systemic and radiation therapy along with close surgical follow up. They would like to follow here at the [facility]. Review of Systems Review of Systems All other systems reviewed and are negative. --Oncology History-- [Associated problem not found] Oncology History No history exists. Past Medical, Surgical, Family, and Social History: Reviewed by me; any relevant updates made in [facility]. Social History Lives in [facility] Allergies Reviewed by me; any relevant updates made in [employer]. Medications Current Medications[1] Physical Exam Vitals: 02/25/25 1613 BP: 123/78 Pulse: 63 Resp: Temp: 36.7 ??C (98.1 ??F) SpO2: 95% Performance Status 1: Restricted in physically strenuous activity but ambulatory and able to do light work Gen: NAD. Comfortable. Well-appearing HEENT: Sclera non-icteric. No pharyngeal erythema. No oral lesions. Lymph: No cervical lymphadenopathy. CV: RRR. No murmur. Warm and well-perfused. There is no peripheral edema. Pulm: Lungs CTAB. Normal work of breathing on room air Abd: Soft, non-tender, non-distended, no HSM. Musc: No joint swelling or erythema. No contractures or joint deformities. Skin: No petechiae or bruising. Neuro: Alert and appropriately conversant. There are no gross neurologic deficits. Psych: Mood and affect appropriate for setting Labs, Imaging, and Microbiology Reviewed personally in [facility]. Notable as discussed in Assessment and Plan. Pathology: Pending or [1] Current Facility-Administered Medications: acetaminophen (Tylenol) tablet 1,000 mg, 1,000 mg, Oral, q6h [facility], John Bhat MD, 1,000 mg at 02/25/25 1211 acetaminophen (Tylenol) tablet 650 mg, 650 mg, Oral, q6h PRN, Nipper, Anaya M, AUTOCUTTER bisacodyl (Dulcolax) suppository 10 mg, 10 mg, Rectal, Daily PRN, Nipper, Anaya M, AUTOCUTTER cyclobenzaprine (Flexeril) tablet 5 mg, 5 mg, Oral, TID, John Bhat MD, 5 mg at 02/25/25 1506 cyclobenzaprine (Flexeril) tablet 5 mg, 5 mg, Oral, TID PRN, Nipper, Anaya M, AUTOCUTTER dexamethasone (Decadron) injection 4 mg, 4 mg, Intravenous, q6h, Nipper, Anaya M, AUTOCUTTER, 4 mg at 02/25/25 1211 heparin (porcine) injection 7,500 Units, 7,500 Units, Subcutaneous, q8h, Nipper, Anaya M, AUTOCUTTER, 7,500 Units at 02/25/25 1506 hydrALAZINE (Apresoline) injection 10 mg, 10 mg, Intravenous, q1h PRN, 10 mg at 02/22/25 2141 OR hydrALAZINE (Apresoline) injection 20 mg, 20 mg, Intravenous, q1h PRN, Katharine Oreilly MD, 20 mg at 02/23/2514 labetalol (Normodyne,Trandate) injection 10 mg, 10 mg, Intravenous, q1h PRN OR labetalol (Normodyne,Trandate) injection 20 mg, 20 mg, Intravenous, q1h PRN, Katharine Oreilly MD levETIRAcetam (Keppra) tablet 1,000 mg, 1,000 mg, Oral, BID, Anaya Fleton, AUTOCUTTER, 1,000 mg at 02/25/25837 lisinopril tablet 20 mg, 20 mg, Oral, BID, Anaya Felton AUTOCUTTER, 20 mg at 02/25/25837 nebivolol (Bystolic) tablet 5 mg, 5 mg, Oral, Daily, Ranjana Yu MD, 5 mg at 02/25/25838 NIFEdipine XL (Procardia XL) 24 hr tablet 30 mg, 30 mg, Oral, Daily, Anaya Felton, AUTOCUTTER, 30 mg at 02/25/25838 ondansetron ODT (Zofran-ODT) disintegrating tablet 4 mg, 4 mg, Oral, q6h PRN OR ondansetron (Zofran) injection 4 mg, 4 mg, Intravenous, q6h PRN, Katharine Oreilly MD pantoprazole (Protonix) EC tablet 40 mg, 40 mg, Oral, Daily, Hakan Jainus A, 40 mg at polyethylene glycol (Miralax) packet 17 g, 17 g, Oral, BID, Anaya Felton, AUTOCUTTER, 17 g at senna-docusate (Maggy-Colace) 8.6-50 MG per tablet 2 tablet, 2 tablet, Oral, BID, Anaya Felton, AUTOCUTTER, 2 tablet at 02/25/25837 sertraline (Zoloft) tablet 50 mg, 50 mg, Oral, Daily, Susy Michael A, 50 mg at 02/25/25838 Insert peripheral IV, , , Once AND Saline lock IV, , , Once AND sodium chloride 0.9 % flush10 mL, 10 mL, Intravenous, q12h, 10 mL at 02/23/252011 AND sodium chloride 0.9 % flush 10 mL, 10 mL, Intravenous, Afia ELLISON Catherine M, MD Cosigned by Danish Renee MD at 02/25/2025 6:21 PM EDT Associated attestation - Danish Renee MD - 02/25/2025 6:21 PM EDT I saw and evaluated the patient with the resident/fellow. I discussed the case with the resident/fellow and agree with the findings and plan as documented. * Significant Event - Jose Elias Robb MD - 02/25/2025 3:05 PM EDT RADIATION MEDICINE SIGNIFICANT EVENT NOTE Radiation Medicine was contacted regarding radiotherapy recommendations for Ms. Murrell, a 64 y/o woman with an intracranial mass of unknown etiology s/p LEFT temporal craniotomy for tumor resection. Pathology is pending and will be required to make recommendations regarding timing, dose, or durationof radiotherapy, as well as potential need for concurrent chemotherapy. Ms Murrell will also require 2 weeks of healing before radiation can be planned and delivered. We communicated to Neurosurgery that she may be seen as an ambulatory referral and formal consult once pathology has resulted and she has received surgical clearance. * Assessment & Plan Note - Anaya Felton APRN - 02/25/2025 12:29 PM EDT Associated Problem(s): Brain tumor (benign) (CMS/HCC) - MRI head w/w/o - 02/24/25 s/p Left temporal craniotomy for tumor resection - consult radiation oncology and medial oncology - IV dex 4mg q6hrs - PPI while on steroids - Keppra started outpatient by Neurology but discontinued due to significant drowsiness and no changes in RLE symptoms - C/A/P CT scans negative for metastatic work-up - Hold all anticoagulation and antiplatelet medication - daily bowel regimen - Incentive spirometer q1h while awake - resume home medications as able - Avoid sedating medications as able - Nursing to assist patient out of bed to the chair 4 times a day. Up to the chair at each meal time (whether patient eats or not) and in the evening. - Ambulate in the hallway 3 times a day * Assessment & Plan Note - Anaya Felton APRN - 02/25/2025 12:29 PM EDT Associated Problem(s): Brain mass - MRI head w/w/o - 02/24/25 s/p Left temporal craniotomy for tumor resection - consult radiation oncology and [facility] oncology - IV dex 4mg q6hrs - PPI while on steroids - Keppra started outpatient by Neurology but discontinued due to significant drowsiness and no changes in RLE symptoms - C/A/P CT scans negative for metastatic work-up - Hold all anticoagulation and antiplatelet medication - daily bowel regimen - Incentive spirometer q1h while awake - resume home medications as able - Avoid sedating medications as able - Nursing to assist patient out of bed to the chair 4 times a day. Up to the chair at each meal time (whether patient eats or not) and in the evening. - Ambulate in the hallway 3 times a day * Assessment & Plan Note - Anaya Felton APRN - 02/25/2025 12:29 PM EDT Associated Problem(s): Sensory deficit, right - MRI head w/w/o - 02/24/25 s/p Left temporal craniotomy for tumor resection - consult radiation oncology and medial oncology - IV dex 4mg q6hrs - PPI while on steroids - Keppra started outpatient by Neurology but discontinued due to significant drowsiness and no changes in RLE symptoms - C/A/P CT scans negative for metastatic work-up - Hold all anticoagulation and antiplatelet medication - daily bowel regimen - Incentive spirometer q1h while awake - resume home medications as able - Avoid sedating medications as able - Nursing to assist patient out of bed to the chair 4 times a day. Up to the chair at each meal time (whether patient eats or not) and in the evening. - Ambulate in the hallway 3 times a day * Assessment & Plan Note - Anaya Felton APRN - 02/25/2025 12:29 PM EDT Associated Problem(s): Expressive aphasia - MRI head w/w/o - 02/24/25 s/p Left temporal craniotomy for tumor resection - consult radiation oncology and medial oncology - IV dex 4mg q6hrs - PPI while on steroids - Keppra started outpatient by Neurology but discontinued due to significant drowsiness and no changes in RLE symptoms - C/A/P CT scans negative for metastatic work-up - Hold all anticoagulation and antiplatelet medication - daily bowel regimen - Incentive spirometer q1h while awake - resume home medications as able - Avoid sedating medications as able - Nursing to assist patient out of bed to the chair 4 times a day. Up to the chair at each meal time (whether patient eats or not) and in the evening. - Ambulate in the hallway 3 times a day * Assessment & Plan Note - Anaya Felton APRN - 02/25/2025 12:29 PM EDT Associated Problem(s): Hypertension - resume home medications as appropriate - 02/23 started nifedipine - will need to follow up with PCP for blood pressure management - continue holding hydrochlorothiazide - SPB < 140 - prn labetalol and hydralazine - continue to monitor - Hospital Medicine recommendations from 02/25 - Continue to hold hydrochlorothiazide to avoid worsening hyponatremia. - Will continue to monitor BP s/p craniotomy - Continue Nifedipine 30 * Assessment & Plan Note - Anaya Felton APRN - 02/25/2025 12:29 PM EDT Associated Problem(s): Hyponatremia - Na 132 on admission. As low as 125 - holding hydrochlorothiazide - continue to monitor - started fluid restriction - Hospital Medicine consulted, recommendations from 02/25 - Since mid-September 2024 sodium has ranged from 127-134 - Hypotonic hyponatremia based on serum osms, urine Na/Osm/Cr - Potentially SIADH from brain mass or Zoloft usage - Sodium improved with fluid restrictions; will continue. Most recent Na 131. - Currently at her baseline and given that has been present for at least 6 months, less likely to need correction before OR. - Continue to hold diuretics - Etiology at this point unclear and possibly mutlifactorial given SSRI usage, brain mass, and hydrochlorothiazide use. Hydrochlorothiazide complicates the interpretation of urine studies. Given thatwe have been holding this, and Na has remained largely stable despite an attempt at a fluid restriction. If this represents SIADH 2/2 brain mass, we could see improvement s/p resection * Assessment & Plan Note - Anaya Felton APRN - 02/25/2025 12:29 PM EDT Associated Problem(s): Obesity, Class III, BMI 40-49.9 (morbid obesity) - Body mass index is 40.21 kg/m??. - Complicates all aspects of care and recovery * Progress Notes - Anaya Felton APRN - 02/25/2025 12:25 PM EDT Neurosurgery Progress Note Today's Date: 02/25/2025 Hospital course: Wali Murrell is a 64 y.o. female with pmhx of HTN, previous stroke on ASA/Plavix presenting with word finding difficulty and newly discovered left insular mass. Now, s/p Left temporal craniotomy for tumor resection on 02/24/25 Subjective Last 24 hours: No acute events overnight. Patient feels her surgery went well. Speech is slightly worse today. Complaining of left facial swelling and pain with chewing. Flexeril added. She states she has ambulated, voided, had breakfast. Daughters are present at bedside. Patient does not feel she is ready to discharge home at this time. Radiation oncology and medial oncology consulted for assistance with outpatient follow up to begin adjuvant therapy. Review of Systems HENT: Negative for trouble swallowing. Eyes: Negative for visual disturbance. Respiratory: Negative for shortness of breath. Cardiovascular: Negative for chest pain. Gastrointestinal: Negative for constipation and nausea. Genitourinary: Negative for difficulty urinating. Neurological: Positive for speech difficulty. Negative for dizziness, weakness, numbness and headaches. Objective Medications Current Facility-Administered Medications Medication Dose Route Frequency Provider Last Rate Last Admin acetaminophen (Tylenol) tablet 1,000 mg 1,000 mg Oral q6h John Strong MD 1,000 mg at02/25/25 1211 acetaminophen (Tylenol) tablet 650 mg 650 mg Oral q6h PRN Anaya Felton APRN bisacodyl (Dulcolax) suppository 10 mg 10 mg Rectal Daily PRN Anaya Felton APRN cyclobenzaprine (Flexeril) tablet 5 mg 5 mg Oral TID John Bhat MD 5 mg at 02/25/25 0839 cyclobenzaprine (Flexeril) tablet 5 mg 5 mg Oral TID PRN Anaya Felton APRN dexamethasone (Decadron) injection 4 mg 4 mg Intravenous q6h Anaya Felton AUTOCUTTER 4 mg at 211 heparin (porcine) injection 7,500 Units 7,500 Units Subcutaneous q8h Anaya Felton APRN 7,500 Units at 02/25/25 0839 hydrALAZINE (Apresoline) injection 10 mg 10 mg Intravenous q1h PRN Katharine Oreilly MD 10 mg at 02/22/25 2141 Or hydrALAZINE (Apresoline) injection 20 mg 20 mg Intravenous q1h PRN Katharine Oreilly MD 20 mg at 02/23/25 0514 labetalol (Normodyne,Trandate) injection 10 mg 10 mg Intravenous q1h PRN Katharine Oreilly MD Or labetalol (Normodyne,Trandate) injection 20 mg 20 mg Intravenous q1h PRN Katharine Oreilly MD levETIRAcetam (Keppra) tablet 1,000 mg 1,000 mg Oral BID Anaya Felton APRN 1,000 mg at 838 lisinopril tablet 20 mg 20 mg Oral BID Anaya Felton AUTOCUTTER 20 mg at 02/25/25 0838 nebivolol (Bystolic) tablet 5 mg 5 mg Oral Daily Ranjana Yu MD 5 mg at 02/25/25 0839 NIFEdipine XL (Procardia XL) 24 hr tablet 30 mg 30 mg Oral Daily Anaya Felton APRN 30 mg at 02/25/25 0839 ondansetron ODT (Zofran-ODT) disintegrating tablet 4 mg 4 mg Oral q6h PRN Katharine Oreilly MD Or ondansetron (Zofran) injection 4 mg 4 mg Intravenous q6h PRN Katharine Oreilly MD pantoprazole (Protonix) EC tablet 40 mg 40 mg Oral Daily Rommeltito Michael A 40 mg at 02/25/25 0839 polyethylene glycol (Miralax) packet 17 g 17 g Oral BID Anaya Felton APRN 17 g at 02/22/25 0900 senna-docusate (Maggy-Colace) 8.6-50 MG per tablet 2 tablet 2 tablet Oral BID Anaya Felton APRN 2 tablet at 02/25/25 0838 sertraline (Zoloft) tablet 50 mg 50 mg Oral Daily Markmeltito Michael A 50 mg at 02/25/25 0839 sodium chloride 0.9 % flush 10 mL 10 mL Intravenous q12h Katharine Oreilly MD 10 mL at 02/23/252011 And sodium chloride 0.9 % flush 10 mL 10 mL Intravenous PRN Katharine Oreilly MD Last Recorded Vitals Visit Vitals BP 124/72 Pulse 64 Temp 36.6 ??C (97.8 ??F) Resp 16 Ht 1.676 m (5' 6 ) Wt 113 kg (249 lb 1.9 oz) SpO2 94% BMI 40.21 kg/m?? OB Status Postmenopausal Smoking Status Never BSA 2.29 m?? Labs Labs in last 18 hours CBC WBC ?? Hb ?? Plt ?? Hct ?? BMP Na ?? Cl ?? BUN ?? Glu ?? K ?? Co2 ?? Cr ?? Outputs Intake/Output Summary (Last 24 hours) at 02/25/2025 1228 Last data filed at 02/25/2025 0400 Gross per 24 hour Intake 1347.5 ml Output 860 ml Net 487.5 ml Output by Drain (mL) 02/23/25 0700 - 02/23/25 1859 02/23/25 1900 - 02/24/25 0659 02/24/25 0700 - 02/24/25 1859 02/24/25 1900 - 02/25/25 0659 02/25/25 0700 - 02/25/25 1228 Patient has no LDAs of requested type attached. Physical Exam GEN: well developed, no acute distress. Obese habitus HEENT: normocephalic, atraumatic, no scleral icterus, oropharynx clear PULM: airways patent, non-labored breathing, normal effort. CV: normal rate and regular rhythm ABD: soft, non-tender, non-distended MSK: no joint swelling, normal range of motion SKIN: warm and dry, capillary refill <2 seconds PSYCHE: normal mood and affect Neuro Exam GCS (EMV): 465 Awake, alert, oriented Speech: clear, intact. Word finding difficulties Follows commands appropriately PERRL, EOMI KRAUSE symmetrically, no drift Imaging 02/22/25 MR HEAD W AND WO IV CONTRAST IMPRESSION: Stable heterogeneously enhancing mass in the left posterior insula and adjacent temporal lobe. 02/17/25 MR HEAD W AND WO IV CONTRAST IMPRESSION: Heterogeneously enhancing mass in the left insula and temporal lobe. The appearance is most consistent with primary brain neoplasm such as glioblastoma or other high-grade glioma. Metastasis is felt to be less likely. 02/16/25 CT Chest/Abdomen/Pelvis w IV contrast IMPRESSION: 1. No acute findings in the chest, abdomen and pelvis. 2. No evidence of metastatic disease or underlying neoplasm in the chest, abdomen and pelvis. 02/16/[address]: IMPRESSION: Mass noted in the left insula and posterior temporal region. This is most concerning for primary brain neoplasm and can be further evaluated with MRI. 02/16/25 Neck CTA: IMPRESSION: 1.Possible fibromuscular dysplasia in the cervical internal carotid arteries bilaterally. 2.Moderate stenosis of the cervical right vertebral artery. 02/16/25 Head CTA: IMPRESSION: No hemodynamically significant intracranial arterial stenosis or aneurysm is present. Imaging was reviewed on am rounds with team and agree with above Assessment and Plan Wali Murrell is a 64 y.o. female with pmhx of HTN, previous stroke on ASA/Plavix presenting with word finding difficulty and newly discovered left insular mass. Now, s/p Left temporal craniotomy fortumor resection on 02/24/25 Length of stay: 9 d Attending: Ned Menendez MD Assessment & Plan Brain tumor (benign) (CMS/HCC) Brain mass Sensory deficit, right Expressive aphasia - MRI head w/w/o - 02/24/25 s/p Left temporal craniotomy for tumor resection - consult radiation oncology and medial oncology - IV dex 4mg q6hrs - PPI while on steroids - Keppra started outpatient by Neurology but discontinued due to significant drowsiness and no changes in RLE symptoms - C/A/P CT scans negative for metastatic work-up - Hold all anticoagulation and antiplatelet medication - daily bowel regimen - Incentive spirometer q1h while awake - resume home medications as able - Avoid sedating medications as able - Nursing to assist patient out of bed to the chair 4 times a day. Up to the chair at each meal time (whether patient eats or not) and in the evening. - Ambulate in the hallway 3 times a day History of CVA (cerebrovascular accident) - holding ASA and plavix for surgical intervention - continue statin Hypertension - resume home medications as appropriate - 02/23 started nifedipine - will need to follow up with PCP for blood pressure management - continue holding hydrochlorothiazide - SPB < 140 - prn labetalol and hydralazine - continue to monitor - Hospital Medicine recommendations from 02/25 - Continue to hold hydrochlorothiazide to avoid worsening hyponatremia. - Will continue to monitor BP s/p craniotomy - Continue Nifedipine 30 GERD (gastroesophageal reflux disease) - takes omeprazole at home - pantoprazole while inpatient Depression - resume sertraline Hyponatremia - Na 132 on admission. As low as 125 - holding hydrochlorothiazide - continue to monitor - started fluid restriction - Hospital Medicine consulted, recommendations from 02/25 - Since mid-September 2024 sodium has ranged from 127-134 - Hypotonic hyponatremia based on serum osms, urine Na/Osm/Cr - Potentially SIADH from brain mass or Zoloft usage - Sodium improved with fluid restrictions; will continue. Most recent Na 131. - Currently at her baseline and given that has been present for at least 6 months, less likely to need correction before OR. - Continue to hold diuretics - Etiology at this point unclear and possibly mutlifactorial given SSRI usage, brain mass, and hydrochlorothiazide use. Hydrochlorothiazide complicates the interpretation of urine studies. Given thatwe have been holding this, and Na has remained largely stable despite an attempt at a fluid restriction. If this represents SIADH 2/2 brain mass, we could see improvement s/p resection Electrolyte disturbance - Hypophosphatemia - Hypomagnesemia - will replace per sliding scale protocol - continue to monitor - follow up labs Hyperglycemia - likely steroid related - A1c 5.7 - Insulin SQ sliding scale - Continue to monitor - consider Diabetic diet as needed Obesity, Class III, BMI 40-49.9 (morbid obesity) - Body mass index is 40.21 kg/m??. - Complicates all aspects of care and recovery F: saline lock IV / PO intake E: Monitor and replace prn N: Regular diet + 1L fluid restriction PPX: SCDs, SQH Medically Ready for Discharge:Anticipated Today Thank you for allowing us to participate in the care of this patient. Please call with any questions or concerns. Anaya Felton, CARIDAD, AUTOCUTTER Advanced Practice Provider Department of Neurosurgery [facility] * Progress Notes - Jose Elias Marshall DO - 02/25/2025 11:17 AM EDT Images from the original note were not included. GME Consult Progress Note Hospital Day: 9 02/25/25 Subjective: NAEO. Patient s/p tumor resection yesterday. Seen seated upright in bed in no acute distress. Denies any acute complaints at this time. Hyponatremia stable, but BMP not collected this morning. ROS: Constitutional: denies fevers, chills CV: denies chest pain, palpitations Resp: denies cough, SOA GI: denies nausea, vomiting Objective: Vitals: Temp: [36.3 ??C (97.4 ??F)-36.8 ??C (98.2 ??F)] 36.6 ??C (97.9 ??F) Heart Rate: [63-91] 68 Resp: [12-21] 16 BP: (91-174)/(47-124) 117/69 Arterial Line BP: (137-167)/(55-68) 139/55 Physical Exam: General: appears stated age, no apparent distress HEENT: anicteric sclera, no conjunctival drainage CV: normal rate with regular rhythm, no appreciable MRG, no LE edema Resp: no appreciable wheezes/crackles, nonlabored breathing on RA GI: soft, no TTP, nondistended Neuro: awake and alert, anomic aphasia Psych: appropriate mood with congruent affect, cooperative during exam Labs and Imaging: WBC ?? Hgb ?? PLT ?? HCT ?? PTT ?? INR ?? antiXa ?? Na ?? Cl ?? BUN ?? Gluc ?? K ?? Co2 ?? Creat ?? MR Head w and wo IV Contrast Result Date: 02/25/2025 Impression: 1. There are the interval operative changes from the left craniotomy and tumor resection. There is a moderate amount of extra-axial fluid, blood and air with compression of the left hemisphere and an increase in the subfalcine herniation and shift of midline structures towards the rightsince the preoperative study. This can be followed. 2. There are areas which likely represent residual tumor around the operative bed, greatest along the inferior aspect, with additional areas of peripheral enhancement around much of the operative bed, varying in thickness. 3. There is again what is concerning for nonenhancing tumor in the left lentiform nucleus and left thalamus although some ofthis could be due to edema. 4. Apparent enhancement within the right internal auditory canal can befollowed. CRITICAL RESULT: No. COMMUNICATION: Per this written report. Drafted by Marcus Elias MD on 02/25/2025 9:38 AM Final report signed by Marcus Elias MD on 02/25/2025 10:08 AM Assessment and Plan: Wali Murrell is a 64 y.o. female presenting with PMH HTN who presented with word finding difficulty and newly discovered left insular brain mass. consulted for hyponatremia. 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 Most recent Na 131. - Currently at her baseline and given that has been present for at least 6 months, less likely to need correction before OR. - Continue to hold diuretics - Etiology at this point unclear and possibly mutlifactorial given SSRI usage, brain mass, and hydrochlorothiazide use. Hydrochlorothiazide complicates the interpretation of urine studies. Given thatwe have been holding this, and Na has remained largely stable despite an attempt at a fluid restriction. If this represents SIADH 2/2 brain mass, we could see improvement s/p resection HTN - Home BP meds include lisinopril, nebivolol, and hydrochlorothiazide; lisinopril and nebivolol restarted on 02/19 per primary team. - Received 1x PRN hydralazine yesterday for BP of 146/81; no additional doses since per chart review. - Continue to hold hydrochlorothiazide to avoid worsening hyponatremia. - Will continue to monitor BP s/p craniotomy - Continue Nifedipine 30 #Brain mass with associated cerebral edema with brain compression - Keppra started during this admission; patient tolerating well - Holding anti-platelet agents pending OR - Management per NSGY #Type 2 DM - Continue POCT BG monitoring - On steroids but glucose currently well controlled. #Depression: continue home Zoloft 50 mg daily #GERD: continue home PPI #Hx of CVA: Continue holding ASA, Plavix pending OR today. Continue home statin. Recommendations: - Continue ongoing fluid restriction given patient's Na baseline for the last six months and continued improvement in sodium levels. - Continue to hold hydrochlorothiazide to avoid worsening hyponatremia - Plan to hold hydrochlorothiazide at discharge and replace with nifedipine - Daily BMP - Resume antiplatelet at discretion of primary DVT Ppx: SQH Diet: CARB2 Code status: Full Code Thank you for allowing us to participate in the care of this patient. Please Secure Chat or page with any questions or concerns. GME will continue to follow. MEDICAL DECISION MAKING: Data: - Reviewed the following notes: NSGY op note with reports of uncomplicated tumor resection - Reviewed labs which are significant for: stable hyponatremia (improved), mild leukocytosis, stable renal function. - BMP ordered to assess for sodium trend Risk: - Foreign Marshall DO PGY-2 [facility] - Internal Medicine Epic Chat preferred; Pager [phone] Cosigned by Ede Ruiz MD at 03/04/2025 5:39 PM EDT Associated attestation - Ede Ruiz MD - 03/04/2025 5:39 PM EDT I saw and evaluated the patient. I discussed the case with the resident/fellow and agree with the findings and plan as documented. * Care Plan - Sherin Bynum RN - 02/25/2025 10:46 AM EDT Problem: Adult Inpatient Plan of Care Goal: Plan of Care Review 02/25/2025 1045 by Sherin Bynum RN Outcome: Ongoing, Progressing 02/25/2025 1045 by Sherin Bynum RN Outcome: Ongoing, Progressing Flowsheets (Taken 02/25/2025 1045) Progress: improving Plan of Care Reviewed With: patient child 02/25/2025 1036 by Sherin Bynum RN Outcome: Ongoing, Not Progressing Flowsheets (Taken 02/25/2025 1036) Progress: improving Plan of Care Reviewed With: patient child Goal: Patient-Specific Goal (Individualized) 02/25/2025 1045 by Sherin Bynum RN Outcome: Ongoing, Progressing 02/25/2025 1045 by Sherin Bynum RN Outcome: Ongoing, Progressing 02/25/2025 1036 by Sherin Bynum RN Outcome: Ongoing, Not Progressing Goal: Absence of Hospital-Acquired Illness or Injury 02/25/2025 1045 by Sherin Bynum RN Outcome: Ongoing, Progressing 02/25/2025 1045 by Sherin Bynum RN Outcome: Ongoing, Progressing 02/25/2025 1036 by Sherin Bynum RN Outcome: Ongoing, Not Progressing Goal: Optimal Comfort and Wellbeing 02/25/2025 1045 by Sherin Bynum RN Outcome: Ongoing, Progressing 02/25/2025 1045 by Sherin Bynum RN Outcome: Ongoing, Progressing 02/25/2025 1036 by Sherin Bynum RN Outcome: Ongoing, Not Progressing Goal: Readiness for Transition of Care 02/25/2025 1045 by Sherin Bynum RN Outcome: Ongoing, Progressing 02/25/2025 1045 by Sherin Bynum RN Outcome: Ongoing, Progressing 02/25/2025 1036 by Sherin Bynum RN Outcome: Ongoing, Not Progressing Problem: Functional Deficit Goal: Improved Balance and Postural Control 02/25/2025 1045 by Sherin Bynum RN Outcome: Ongoing, Progressing 02/25/2025 1045 by Sherin Bynum, RN Outcome: Ongoing, Progressing 02/25/2025 1036 by Sherin Bynum, RN Outcome: Ongoing, Not Progressing Goal: Optimal Cognitive Function 02/25/2025 1045 by Sherin Bynum, RN Outcome: Ongoing, Progressing 02/25/2025 1045 by Sherin Bynum, RN Outcome: Ongoing, Progressing 02/25/2025 1036 by Sherin Bynum, RN Outcome: Ongoing, Not Progressing Goal: Optimal Coordination 02/25/2025 1045 by Sherin Bynum, RN Outcome: Ongoing, Progressing 02/25/2025 1045 by Sherin Bynum, RN Outcome: Ongoing, Progressing 02/25/2025 1036 by Sherin Bynum, RN Outcome: Ongoing, Not Progressing Goal: Improved Muscle Strength 02/25/2025 1045 by Sherin Bynum, RN Outcome: Ongoing, Progressing 02/25/2025 1045 by Sherin Bynum, RN Outcome: Ongoing, Progressing 02/25/2025 1036 by Sherin Bynum, RN Outcome: Ongoing, Not Progressing Goal: Improved Muscle Tone 02/25/2025 1045 by Sherin Bynum, RN Outcome: Ongoing, Progressing 02/25/2025 1045 by Sherin Bynum, RN Outcome: Ongoing, Progressing 02/25/2025 1036 by Sherin Bynum, RN Outcome: Ongoing, Not Progressing Goal: Optimal Range of Motion 02/25/2025 1045 by Sherin Bynum, RN Outcome: Ongoing, Progressing 02/25/2025 1045 by Sherin Bynum, RN Outcome: Ongoing, Progressing 02/25/2025 1036 by Sherin Bynum, RN Outcome: Ongoing, Not Progressing Goal: Compensation for Sensory Deficit 02/25/2025 1045 by Sherin Bynum, RN Outcome: Ongoing, Progressing 02/25/2025 1045 by Sherin Bynum, RN Outcome: Ongoing, Progressing 02/25/2025 1036 by Sherin Bynum, RN Outcome: Ongoing, Not Progressing Problem: Communication Impairment Goal: Effective Communication Skills 02/25/2025 1045 by Sherin Bynum RN Outcome: Ongoing, Progressing 02/25/2025 1045 by Sherin Bynum RN Outcome: Ongoing, Progressing 02/25/2025 1036 by Sherin Bynum RN Outcome: Ongoing, Not Progressing Problem: Infection Goal: Absence of Infection Signs and Symptoms 02/25/2025 1045 by Sherin Bynum RN Outcome: Ongoing, Progressing 02/25/2025 1045 by Sherin Bynum RN Outcome: Ongoing, Progressing 02/25/2025 1036 by Sherin Bynum RN Outcome: Ongoing, Not Progressing * Consults - Miguel Piña - 02/25/2025 10:08 AM EDT Pastoral Care Note [employer] Capture Power Plant Operator consulted with care team, and provided emotional and spiritual support the patient and mistyaughters, they asked mechanical spreader operator to pray for them. Referral From: Nurse Pastoral Care Provided For: Patient, Child(stefania) Patient Profile: Consult Reasons: Emotional support, Prayer, Non-urgent referral Spiritual Assessment: Support Systems/ Spiritual Resources: Prayer, Nettie Spiritual Needs: Emotional support, Prayer, Spiritual support Interventions: Interventions Provided: Emotional support, Spiritual support, Prayer, Consulted with care team, Introduced Patient/Family to [employer] Power [employer] Operator Services, Affirm acceptance and gratitude Pastoral Care Outcomes: Patient Outcomes: Expresses acceptance, Is knowledgeable about Director Of Sustainability Programs Services, Appreciative ofChaplain Support, Gratitude Cosigned by Niki Crow at 02/25/2025 11:27 AM EDT Associated attestation - Niki Crow - 02/25/2025 11:27 AM EDT This is to attest mechanical spreader operator staff internist office based only chart note has been reviewed and okayed. * Assessment & Plan Note - Anaya Felton APRN - 02/25/2025 7:19 AM EDT Associated Problem(s): Hyperglycemia - likely steroid related - A1c 5.7 - Insulin SQ sliding scale - Continue to monitor - consider Diabetic diet as needed * Assessment & Plan Note - Anaya Felton APRN - 02/25/2025 7:10 AM EDT Associated Problem(s): History of CVA (cerebrovascular accident) - holding ASA and plavix for surgical intervention - continue statin * Assessment & Plan Note - Anaya Felton APRN - 02/25/2025 7:10 AM EDT Associated Problem(s): GERD (gastroesophageal reflux disease) - takes omeprazole at home - pantoprazole while inpatient * Assessment & Plan Note - Anaya Felton APRN - 02/25/2025 7:10 AM EDT Associated Problem(s): Depression - resume sertraline * Assessment & Plan Note - Anaya Felton APRN - 02/25/2025 7:10 AM EDT Associated Problem(s): Electrolyte disturbance - Hypophosphatemia - Hypomagnesemia - will replace per sliding scale protocol - continue to monitor - follow up labs * Anesthesia PACU Signout - Maurice Irvin, BRISEIDA, DNP - 02/25/2025 5:17 AM EDT Patient: Wali Murrell Anesthesia Type: general Vitals Value Taken Time BP 128/70 02/25/25 04:00 Temp 36.6 ??C (97.9 ??F) 02/25/25 04:00 Pulse 75 02/25/25 04:00 Resp 15 02/25/25 04:00 SpO2 94 % 02/25/25 04:05 Vitals shown include unfiled device data. 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 Date: 02/24/25 Location: [facility] OR Name: Wali Murrell, : 1960, Diagnoses: Pre-op Diagnosis Brain mass Post-op Diagnosis Brain mass Procedure(s): Left frontotemporal craniotomy for 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 (Active) Site Assessment Clean;Skin intact 02/25/25 0010 CAUTI: Collection Container Standard drainage bag 02/25/25 0010 CAUTI: Securement Method Securing device (Describe) 02/25/259 CAUTI: Specimen Collection Port Covered with Alcohol Cap Yes 02/25/259 CAUTI: Urinary Catheter Necessity Yes, meets criteria 02/25/259 CAUTI: Urinary Catheter Necessity Reasons Q1-2 hourly urine output of critically ill patient 02/25/259 Output (mL) 75 mL 02/25/259 Specimen: Brain mass sent for pathology Findings: Left insular firm, rubbery, willard mass with surrounding edema and mass effect Indications: Wali Murrell is an 64 y.o. female who is having surgery for a newly discovered Brain mass. She has a history of HTN, previous stroke, and antiplatelet use, held since admission. She presented to ED with word-finding difficulty 02/16/25. Patient reports since 02/06 she has had intermittent fluctuating word-finding difficulty with episodes lasting anywhere from several seconds upwards of 5 minutes. She presented to ED after symptoms failed to improve. Upon presentation CT imaging was obtained which showed a 5 cm mass of the left posterior insula. Mri confirmed findings. Blood thinners were held and after discussion and further preoperative imaging for surgical planning patient elected to proceed with resection for both diagnosis and treatment of the mass. Narrative: After patient was identified in pre-op holding area, she was brought to the OR and handed over to Anesthesiology. Once intubated she was positioned supine with shoulder bump under her left shoulder and Colvin head pin use to affix her head to the head of the bed. All bony prominences were padded and both eyes were taped shut. The Brainlab registration was completed and a question-dillon incision was mapped out over the left temporal scalp. Hair was shaved and skin cleansed with alcohol and Hibiclens. Lidocaine with epinephrine was injected along the proposed incision. Sterile prep and drape was performed in the usual standard fashion. Timeout was called and confirmed as well as confirmationof correct patient, correct procedure, and correct side and that perioperative antibiotics had beengiven. The incision was opened sharply with a 15 blade and carried down through the subcutaneous tissue and temporalis muscle down to the skull with Bovie electrocautery. Retractors were placed for better exposure. Brainlab was again used to confirm the location of the tumor. Three bhavya holes were made and then a craniotomy flap was elevated. The underlying dura was opened in a curvilinear fashion and dural flaps tacked up with 4-0 nurolon. Using microsurgical technique, the sylvian fissure was openedand dissected with combination of 11 blade scalpel and micro scissors for the arachnoid, bipolar, irrigation, and gentle suction. Hemostasis was maintained meticulously with thrombin soaked gel foam,surgicel, and bipolar electrocautery. During dissection opening the sylvian fissure we encountered several branches of the MCA, and during dissection these were noted to undergo vasospasm; she was administered papaverine directly on a soaked gel foam applied to the vessels, and in combination with warm irrigation this visibly resolved the spasm. The anterior insula was exposed along with MCA branches, and the posterior insular region was noted to be clearly infiltrated with tumor. The posteriorinsula was entered and tumor debulked, Brainlab was repeatedly used to confirm direction until encountering markedly pathologic tissue (willard, firm, rubbery, shiny mass containing necrotic material and thrombosed veins) confirmed on navigation to represent the targeted mass. Edges of the tumor were identified and sonopet, bipolar, and suction were used to remove as much ofthe tumor as safely able, taking care to avoid the medial border as this abutted the corticospinal tract and the superior border which was in proximity to the superior longitudinal fasciculus. Extentof the resection was confirmed with navigation. Copious irrigation was performed. Hemostasis was obt ained using Surgicel lining the cavity. Dural leaflets were approximated with 4- 0 nurolon stitches.A piece of Synthecel was cut to size and placed over the dural leaflets. Gelfoam was applied along the edges. The bone flap was then replaced and secured with titanium screws and the edges were covered with Tisseel. Hemostasis was obtained. Vancomycin powder was applied. The galea and subcutaneous tissue was approximated using 2-0 Vicryl suture followed by gaetano for the skin and bacitracin. Allcounts were correct at the end of the case. There were no marked complications during the case. was present and scrubbed for the entire case. At the end of the procedure, the patient was taken out of [place] head pins, awakened, extubated, and moved to her hospital bed and taken back to PACU in no acute distress. There were NO signs of surgical site infection (SSI) present at the time of surgery (PATOS). Complications: None; patient tolerated the procedure well. Submitted by: John Bhat MD - 02/25/2025 * Assessment & Plan Note - Anaya Felton APRN - 02/24/2025 11:08 AM EDT Associated Problem(s): Hypertension - resume home medications as appropriate - 02/23 started nifedipine - will need to follow up with PCP for blood pressure management - continue holding hydrochlorothiazide - SPB < 140 - prn labetalol and hydralazine - continue to monitor - Hospital Medicine recommendations from 02/22 - Continue to hold hydrochlorothiazide to avoid worsening hyponatremia - If SBP persistently >150s and patient requiring frequent doses of PRN hydralazine and PRN labetalol consider starting nifedipine 30mg daily as adjunct for high BP. - On day of OR would hold lisinopril and hydrochlorothiazide. Continue nebivolol on day of OR. * Assessment & Plan Note - Anaya Felton APRN - 02/24/2025 11:08 AM EDT Associated Problem(s): Obesity, Class III, BMI 40-49.9 (morbid obesity) - Body mass index is 40.92 kg/m??. - Complicates all aspects of care and recovery * Progress Notes - Cuca Campoverde MD - 02/24/2025 10:36 AM EDT GME Consult Progress Note Hospital Day: 8 02/24/25 Subjective: NAEO. Scheduled to go to OR today. She states she is nervous but ready. She had no additional concerns or complaints. Daughter at bedside. ROS: Constitutional: denies fevers, chills CV: denies chest pain, palpitations Resp: denies cough, SOA GI: denies nausea, vomiting Objective: Vitals: Temp: [36.3 ??C (97.4 ??F)-36.7 ??C (98.1 ??F)] 36.7 ??C (98.1 ??F) Heart Rate: [58-71] 62 Resp: [16-18] 16 BP: (122-152)/(73-81) 147/79 Physical Exam: General: appears stated age, no apparent distress HEENT: anicteric sclera, no conjunctival drainage CV: normal rate with regular rhythm, no appreciable MRG, no LE edema Resp: no appreciable wheezes/crackles, nonlabored breathing on RA GI: soft, no TTP, nondistended Neuro: awake and alert, anomic aphasia Psych: appropriate mood with congruent affect, cooperative during exam Labs and Imaging: WBC 11.24 (H) Hgb 12.8 PLT 400 (H) HCT 38.5 PTT 24 (L) INR 1.0 antiXa ?? Na 131 (L) Cl 98 BUN 26 (H) Gluc 126 (H) K 4.7 Co2 23 Creat 0.63 Assessment and Plan: Wali Murrell is a 64 y.o. female presenting with PMH HTN who presented with word finding difficulty and newly discovered left insular brain mass. consulted for hyponatremia. 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 Most recent Na 131. - Currently at her baseline and given that has been present for at least 6 months, less likely to need correction before OR. - Continue to hold diuretics; patient with plans to go to OR today per NSGY. Perioperative Risk Stratification - RCRI: 1 (h/o CVA in Sep 2024) - METS: METS >4 - EKG personally reviewed: NSR with PVCs, QTc 423 - Active cardiac condition such as chest pain, accelerating chest pain, dyspnea on exertion, new oruncontrolled arrhythmia are: Not Present - Date of last dose of antiplatelet/anticoagulation: Last dose of aspirin prior to admission on 02/17 - Decompensated organ condition (including acute CHF, acute COPD, acute decompensated cirrhosis) are: Not Present - Patient has NICOLE/home oxygen requirement: None - Echo is: Not required RECOMMENDTIONS: - Medical Optimization: Patient is medically optimized and can proceed to OR HTN - Home BP meds include lisinopril, nebivolol, and hydrochlorothiazide; lisinopril and nebivolol restarted on 02/19 per primary team. - Received 1x PRN hydralazine yesterday for BP of 146/81; no additional doses since per chart review. - Continue to hold hydrochlorothiazide to avoid worsening hyponatremia. - Will continue to monitor BP s/p craniotomy today. - Scheduled for OR today: would hold lisinopril. Continue nebivolol. Brain mass with associated cerebral edema with brain compression - Keppra started during this admission; patient tolerating well - Holding anti-platelet agents pending OR - Management per NSGY Type 2 DM - Continue POCT BG monitoring - On steroids but glucose currently well controlled. Continue SSI. Depression: continue home Zoloft 50 mg daily GERD: continue home PPI Hx of CVA: Continue holding ASA, Plavix pending OR today. Continue home statin. Recommendations: - Continue ongoing fluid restriction given patient's Na baseline for the last six months and continued improvement in sodium levels. - Continue to hold hydrochlorothiazide to avoid worsening hyponatremia - Continue holding ASA, Plavix pending OR today. DVT Ppx: holding for OR Diet: NPO Code status: Full Code Thank you for allowing us to participate in the care of this patient. Please Secure Chat or page with any questions or concerns. GME will continue to follow. MEDICAL DECISION MAKING: Data: - Reviewed the following notes: Anaesthesilogy reporting plans to proceed to OR today for L craniotomy for tumor resection. - Reviewed labs which are significant for: stable hyponatremia (improved), mild leukocytosis, stable renal function. Risk: - High risk decision for OR today Cuca Campoverde MD Internal Medicine, PGY-2 Cosigned by Ede Ruiz MD at 03/04/2025 5:23 PM EDT Associated attestation - Ede Ruiz MD - 03/04/2025 5:23 PM EDT I saw and evaluated the patient. I discussed the case with the resident/fellow and agree with the findings and plan as documented. * Care Plan - Jayna Goldstein RN - 02/24/2025 8:54 AM EDT Problem: Adult Inpatient Plan of Care Goal: Plan of Care Review Outcome: Ongoing, Progressing Goal: Patient-Specific Goal (Individualized) Outcome: Ongoing, Progressing Goal: Absence of Hospital-Acquired Illness or Injury Outcome: Ongoing, Progressing Goal: Optimal Comfort and Wellbeing Outcome: Ongoing, Progressing Goal: Readiness for Transition of Care Outcome: Ongoing, Progressing Problem: Functional Deficit Goal: Improved Balance and Postural Control Outcome: Ongoing, Progressing Goal: Optimal Cognitive Function Outcome: Ongoing, Progressing Goal: Optimal Coordination Outcome: Ongoing, Progressing Goal: Improved Muscle Strength Outcome: Ongoing, Progressing Goal: Improved Muscle Tone Outcome: Ongoing, Progressing Goal: Optimal Range of Motion Outcome: Ongoing, Progressing Goal: Compensation for Sensory Deficit Outcome: Ongoing, Progressing Problem: Communication Impairment Goal: Effective Communication Skills Outcome: Ongoing, Progressing * Assessment & Plan Note - Anaya Felton APRN - 02/24/2025 6:14 AM EDT Associated Problem(s): Brain tumor (benign) (CMS/HCC) - MRI head w/w/o - IV dex 4mg q6hrs - PPI while on steroids - Keppra started outpatient by Neurology but discontinued due to significant drowsiness and no changes in RLE symptoms - functional MRI for speech and motor function completed - fiducial MRI today - C/A/P CT scans negative for metastatic work-up - Hold all anticoagulation and antiplatelet medication - daily bowel regimen - Incentive spirometer q1h while awake - resume home medications as able - Avoid sedating medications as able - to OR today for L craniotomy for tumor resection - npo at midnight * Assessment & Plan Note - Anaya Felton APRN - 02/24/2025 6:14 AM EDT Associated Problem(s): Brain mass - MRI head w/w/o - IV dex 4mg q6hrs - PPI while on steroids - Keppra started outpatient by Neurology but discontinued due to significant drowsiness and no changes in RLE symptoms - functional MRI for speech and motor function completed - fiducial MRI today - C/A/P CT scans negative for metastatic work-up - Hold all anticoagulation and antiplatelet medication - daily bowel regimen - Incentive spirometer q1h while awake - resume home medications as able - Avoid sedating medications as able - to OR today for L craniotomy for tumor resection - npo at midnight * Assessment & Plan Note - Anaya Felton APRN - 02/24/2025 6:14 AM EDT Associated Problem(s): Sensory deficit, right - MRI head w/w/o - IV dex 4mg q6hrs - PPI while on steroids - Keppra started outpatient by Neurology but discontinued due to significant drowsiness and no changes in RLE symptoms - functional MRI for speech and motor function completed - fiducial MRI today - C/A/P CT scans negative for metastatic work-up - Hold all anticoagulation and antiplatelet medication - daily bowel regimen - Incentive spirometer q1h while awake - resume home medications as able - Avoid sedating medications as able - to OR today for L craniotomy for tumor resection - npo at midnight * Assessment & Plan Note - Anaya Felton APRN - 02/24/2025 6:14 AM EDT Associated Problem(s): Expressive aphasia - MRI head w/w/o - IV dex 4mg q6hrs - PPI while on steroids - Keppra started outpatient by Neurology but discontinued due to significant drowsiness and no changes in RLE symptoms - functional MRI for speech and motor function completed - fiducial MRI today - C/A/P CT scans negative for metastatic work-up - Hold all anticoagulation and antiplatelet medication - daily bowel regimen - Incentive spirometer q1h while awake - resume home medications as able - Avoid sedating medications as able - to OR today for L craniotomy for tumor resection - npo at midnight * Assessment & Plan Note - Anaya Felton APRN - 02/24/2025 6:14 AM EDT Associated Problem(s): History of CVA (cerebrovascular accident) - holding ASA and plavix for surgical intervention - continue statin * Assessment & Plan Note - Anaya Felton APRN - 02/24/2025 6:14 AM EDT Associated Problem(s): GERD (gastroesophageal reflux disease) - takes omeprazole at home - pantoprazole while inpatient * Assessment & Plan Note - Anaya Felton APRN - 02/24/2025 6:14 AM EDT Associated Problem(s): Depression - resume sertraline * Assessment & Plan Note - Anaya Felton APRN - 02/24/2025 6:14 AM EDT Associated Problem(s): Hyponatremia - Na 132 on admission. As low as 125 - holding hydrochlorothiazide - continue to monitor - started fluid restriction - Hospital Medicine consulted, recommendations from 02/22 - Since mid-September 2024 sodium has ranged from 127-134 - Hypotonic hyponatremia based on serum osms, urine Na/Osm/Cr - Potentially SIADH from brain mass or Zoloft usage - Sodium improved with fluid restrictions; will continue. Most recent Na 132. - Currently at her baseline and given that has been present for at least 6 months, less likely to need correction before OR - Would continue to hold diuretics while pending OR to avoid further sodium wasting. * Assessment & Plan Note - Anaya Felton APRN - 02/24/2025 6:14 AM EDT Associated Problem(s): Electrolyte disturbance - Hypophosphatemia - Hypomagnesemia - will replace per sliding scale protocol - continue to monitor - follow up labs * Assessment & Plan Note - Anaya Felton APRN - 02/24/2025 6:14 AM EDT Associated Problem(s): Hyperglycemia - likely steroid related - A1c pending - Insulin SQ sliding scale - Continue to monitor - consider Diabetic diet as needed * Progress Notes - Anaya Felton APRN - 02/24/2025 6:13 AM EDT Neurosurgery Progress Note Today's Date: 02/24/2025 Hospital course: Wali Murrell is a 64 y.o. female with pmhx of HTN, previous stroke on ASA/Plavix presenting with word finding difficulty and newly discovered left insular mass. Subjective Last 24 hours: To OR today due to scheduling for L crani for tumor resection. Review of Systems HENT: Negative for trouble swallowing. Eyes: Negative for visual disturbance. Respiratory: Negative for shortness of breath. Cardiovascular: Negative for chest pain. Gastrointestinal: Negative for constipation and nausea. Genitourinary: Negative for difficulty urinating. Neurological: Positive for speech difficulty. Negative for dizziness, weakness, numbness and headaches. Objective Medications Current Facility-Administered Medications Medication Dose Route Frequency Provider Last Rate Last Admin acetaminophen (Tylenol) tablet 650 mg 650 mg Oral q6h PRN [facility], [facility], AUTOCUTTER bisacodyl (Dulcolax) suppository 10 mg 10 mg Rectal Daily PRN [facility], [facility], AUTOCUTTER dexamethasone (Decadron) injection 4 mg 4 mg [facility]venous [facility] [place] 4 mg at 612 [Held by provider] heparin (porcine) injection 7,500 Units 7,500 Units Subcutaneous q8h [facility], [facility], AUTOCUTTER 7,500 Units at 02/23/25 1611 hydrALAZINE (Apresoline) injection 10 mg 10 mg Intravenous q1h PRN Katharine Oreilly MD 10 mg at 02/22/25 2141 Or hydrALAZINE (Apresoline) injection 20 mg 20 mg Intravenous q1h PRN Katharine Oreilly MD 20 mg at 02/23/25 0514 labetalol (Normodyne,Trandate) injection 10 mg 10 mg Intravenous q1h PRN Katharine Oreilly MD Or labetalol (Normodyne,Trandate) injection 20 mg 20 mg Intravenous q1h PRN Katharine Oreilly MD levETIRAcetam (Keppra) tablet 1,000 mg 1,000 mg Oral BID [facility] Anaya M, AUTOCUTTER 1,000 mg at 840 lisinopril tablet 20 mg 20 mg Oral BID [facility], AUTOCUTTER 20 mg at 02/24/25 0840 nebivolol (Bystolic) tablet 5 mg 5 mg Oral Daily Ranjana Yu MD 5 mg at 02/24/25 0840 NIFEdipine XL (Procardia XL) 24 hr tablet 30 mg 30 mg Oral Daily [facility] Anaya M, AUTOCUTTER 30 mg at 02/24/25 0840 ondansetron ODT (Zofran-ODT) disintegrating tablet 4 mg 4 mg Oral q6h PRN Katharine Oreilly MD Or ondansetron (Zofran) injection 4 mg 4 mg Intravenous q6h PRN Katharine Oreilly MD pantoprazole (Protonix) EC tablet 40 mg 40 mg Oral Daily Rommelman, Michael A 40 mg at 02/24/25 0840 polyethylene glycol (Miralax) packet 17 g 17 g Oral BID Anaya Felton APRN 17 g at 02/22/25 0900 senna-docusate (Maggy-Colace) 8.6-50 MG per tablet 2 tablet 2 tablet Oral BID Anaya Felton APRN 2 tablet at 02/24/25 0840 sertraline (Zoloft) tablet 50 mg 50 mg Oral Daily Rommeltito Michael A 50 mg at 02/24/25 0840 sodium chloride 0.9 % flush 10 mL 10 mL Intravenous q12h Katharine Oreilly MD 10 mL at 02/23/252011 And sodium chloride 0.9 % flush 10 mL 10 mL Intravenous PRN Katharine Oreilly MD Last Recorded Vitals Visit Vitals BP (!) 147/79 (BP Location: Right arm, Patient Position: Lying) Pulse 62 Temp 36.7 ??C (98.1 ??F) (Oral) Resp 16 Ht 1.676 m (5' 6 ) Wt 115 kg (253 lb 8.5 oz) SpO2 94% BMI 40.92 kg/m?? OB Status Postmenopausal Smoking Status Never BSA 2.31 m?? Labs Labs in last 18 hours CBC WBC 11.24 (H) Hb 12.8 Plt 400 (H) Hct 38.5 BMP Na 131 (L) Cl 98 BUN 26 (H) Glu 126 (H) K 4.7 Co2 23 Cr 0.63 Outputs Intake/Output Summary (Last 24 hours) at 02/24/2025 1107 Last data filed at 02/23/20251999 Gross per 24 hour Intake 640 ml Output -- Net 640 ml Output by Drain (mL) 02/22/25 07 - 02/22/25185802/22/25 190 - 02/23/2559 02/23/25 07 - 02/23/25 18502/23/25 190 - 02/24/25 0659 02/24/25 07 - 02/24/25 1107 Patient has no LDAs of requested type attached. Physical Exam GEN: well developed, no acute distress. Obese habitus HEENT: normocephalic, atraumatic, no scleral icterus, oropharynx clear PULM: airways patent, non-labored breathing, normal effort. CV: normal rate and regular rhythm ABD: soft, non-tender, non-distended MSK: no joint swelling, normal range of motion SKIN: warm and dry, capillary refill <2 seconds PSYCHE: normal mood and affect Neuro Exam GCS (EMV): 465 Awake, alert, oriented Speech: clear, intact. Word finding difficulties Follows commands appropriately PERRL, EOMI KRAUSE symmetrically, no drift Imaging 02/17/25 MR HEAD W AND WO IV CONTRAST IMPRESSION: Heterogeneously enhancing mass in the left insula and temporal lobe. The appearance is most consistent with primary brain neoplasm such as glioblastoma or other high-grade glioma. Metastasis is felt to be less likely. 02/16/25 CT Chest/Abdomen/Pelvis w IV contrast IMPRESSION: 1. No acute findings in the chest, abdomen and pelvis. 2. No evidence of metastatic disease or underlying neoplasm in the chest, abdomen and pelvis. 02/16/[address]: IMPRESSION: Mass noted in the left insula and posterior temporal region. This is most concerning for primary brain neoplasm and can be further evaluated with MRI. 02/16/25 Neck CTA: IMPRESSION: 1.Possible fibromuscular dysplasia in the cervical internal carotid arteries bilaterally. 2.Moderate stenosis of the cervical right vertebral artery. 02/16/25 Head CTA: IMPRESSION: No hemodynamically significant intracranial arterial stenosis or aneurysm is present. Imaging was reviewed on am rounds with team and agree with above Assessment and Plan Wali Murrell is a 64 y.o. female with pmhx of HTN, previous stroke on ASA/Plavix presenting with word finding difficulty and newly discovered left insular mass. Length of stay: 8 d Attending: Ned Menendez MD Assessment & Plan Brain tumor (benign) (CMS/HCC) Brain mass Sensory deficit, right Expressive aphasia - MRI head w/w/o - IV dex 4mg q6hrs - PPI while on steroids - Keppra started outpatient by Neurology but discontinued due to significant drowsiness and no changes in RLE symptoms - functional MRI for speech and motor function completed - fiducial MRI today - C/A/P CT scans negative for metastatic work-up - Hold all anticoagulation and antiplatelet medication - daily bowel regimen - Incentive spirometer q1h while awake - resume home medications as able - Avoid sedating medications as able - to OR today for L craniotomy for tumor resection - npo at midnight History of CVA (cerebrovascular accident) - holding ASA and plavix for surgical intervention - continue statin Hypertension - resume home medications as appropriate - 02/23 started nifedipine - will need to follow up with PCP for blood pressure management - continue holding hydrochlorothiazide - SPB < 140 - prn labetalol and hydralazine - continue to monitor - Hospital Medicine recommendations from 02/22 - Continue to hold hydrochlorothiazide to avoid worsening hyponatremia - If SBP persistently >150s and patient requiring frequent doses of PRN hydralazine and PRN labetalol consider starting nifedipine 30mg daily as adjunct for high BP. - On day of OR would hold lisinopril and hydrochlorothiazide. Continue nebivolol on day of OR. GERD (gastroesophageal reflux disease) - takes omeprazole at home - pantoprazole while inpatient Depression - resume sertraline Hyponatremia - Na 132 on admission. As low as 125 - holding hydrochlorothiazide - continue to monitor - started fluid restriction - Hospital Medicine consulted, recommendations from 02/22 - Since mid-September 2024 sodium has ranged from 127-134 - Hypotonic hyponatremia based on serum osms, urine Na/Osm/Cr - Potentially SIADH from brain mass or Zoloft usage - Sodium improved with fluid restrictions; will continue. Most recent Na 132. - Currently at her baseline and given that has been present for at least 6 months, less likely to need correction before OR - Would continue to hold diuretics while pending OR to avoid further sodium wasting. Electrolyte disturbance - Hypophosphatemia - Hypomagnesemia - will replace per sliding scale protocol - continue to monitor - follow up labs Hyperglycemia - likely steroid related - A1c pending - Insulin SQ sliding scale - Continue to monitor - consider Diabetic diet as needed Obesity, Class III, BMI 40-49.9 (morbid obesity) - Body mass index is 40.92 kg/m??. - Complicates all aspects of care and recovery F: saline lock IV E: Monitor and replace prn N: NPO PPX: SCDs, SQH (on hold for OR) Medically Ready for Discharge:Anticipated Tomorrow Thank you for allowing us to participate in the care of this patient. Please call with any questions or concerns. Anaya Felton, CARIDAD, AUTOCUTTER Advanced Practice Provider Department of Neurosurgery [facility] * Progress Notes - Guy Virk - 02/23/2025 9:49 AM EDT SW met with NS Team to discuss pt POC. Per team, pt to OR tomorrow. No CM needs identified at this time, SW remains available to follow/assist. Guy Virk LCSW * Consults - Ember Winchester RD - 02/23/2025 9:44 AM EDT Adult Nutrition Evaluation Note Wali Murrell 64 y.o. female CSN: [id number] Room/Bed 125/125A Nutrition evaluation type: assessment Reason for evaluation: [facility] Hospital course: 64 yo F presenting with word finding difficulty and newly discovered left insular mass. Pending OR for L crani for tumor resection. Past medical/ surgical history: Past Medical History[1] Surgical History[2] Social history: Additional comments: 02/23: Fluid restriction for ongoing hyponatremia. Visited pt and family in room. Pt reports a good appetite overall. She is drinking Equate protein shakes and electrolyte replacements brought in by family. She denied any difficulty chewing or swallowing. Vitals and Basic Assessment: BP: (!) 153/80 Temp: 36.3 ??C (97.4 ??F) Oxygen Therapy: None (Room air) Fazal Coma Scale Score: 15 Devonte Scale Score: 21 Most Recent BM Date: 02/22/25 GI Symptoms: None Edema: Generalized Allergies: NKFA Medications: Current Medications[3] Labs: Lab Results Component Value Date GLUCOSE 133 (H) 02/22/2025 CALCIUM 9.7 02/22/2025 NA 134 (L) 02/23/2025 K 4.5 02/22/2025 CO2 21 (L) 02/22/2025 CL 97 02/22/2025 BUN 22 02/22/2025 CREATININE 0.67 02/22/2025 PHOS 3.5 02/22/2025 MG 2.0 02/22/2025 HGBA1C 5.7 (H) 02/19/2025 Anthropometrics: Height: 167.6 cm (5' 6 ) Weight: 118 kg (259 lb 7.7 oz) BMI (Calculated): 41.9 Weight Evaluation: Extreme Obesity (BMI > 40) Parker Body Weight (kg): 59.1 Percent Parker Body Weight: 199 Adjusted Body Weight (kg): 73.75 Estimated Needs: Metabolic Cart Study Results: Current Nutrition Intake: Diet Supplements: None Diet Order: Adult Diet Diet Texture: Regular Adult Fluid Restriction / 24 hr: 1000 ml fluid Percent Meals Eaten (%): 75-100% Diet Experience and Nutrition History: Diet Education Provided: Will monitor Pertinent home medications: Judaism needs: Nutrition Focused Physical Exam: Physical exam performed on (date): 02/23 Temples (muscles): None Clavicle (muscle): None Shoulder (muscle): None Thigh (muscle): None Calf (muscle): None Orbital (fat): None Triceps (fat): None Assessment of Malnutrition: Malnutrition Identified: No Nutrition Problem: Increased nutrient needs kcal, protein related to high metabolic demand for healing as evidenced byplan for OR. Status of Nutrition Diagnosis: New Nutrition Interventions and Recommendations: - Regular diet - Fluid restriction per team (currently 1000 mL/day) - Monitor for steroid induced hyperglycemia - Nutritional supplements from home Nutrition Monitoring and Goals: - Tolerate PO intake >75% - Will monitor weight, skin integrity, PO intake/enteral infusion, labs, I&O, and follow up perdepartment acuity. Acuity Level: [address] [1] Past Medical History: Diagnosis Date Brain bleed (CMS/HCC) 09/02/2024 Small, went to ER Headache Hypertension [2] No past surgical history on file. [3] Current Facility-Administered Medications: acetaminophen (Tylenol) tablet 650 mg, 650 mg, Oral, q6h PRN, Nipper, Anaya M, AUTOCUTTER bisacodyl (Dulcolax) suppository 10 mg, 10 mg, Rectal, Daily PRN, Nipper, Anaya M, AUTOCUTTER dexamethasone (Decadron) injection 4 mg, 4 mg, Intravenous, q6h, Nipper, Anaya M, AUTOCUTTER, 4 mg at 02/23/25 0514 heparin (porcine) injection 7,500 Units, 7,500 Units, Subcutaneous, q8h, Anaya Felton, AUTOCUTTER, 7,500 Units at 02/23/25 0032 hydrALAZINE (Apresoline) injection 10 mg, 10 mg, Intravenous, q1h PRN, 10 mg at 02/22/252140 OR hydrALAZINE (Apresoline) injection 20 mg, 20 mg, Intravenous, q1h PRN, Katharine Oreilly MD, 20 mg at 02/23/25 0514 labetalol (Normodyne,Trandate) injection 10 mg, 10 mg, Intravenous, q1h PRN OR labetalol (Normodyne,Trandate) injection 20 mg, 20 mg, Intravenous, q1h PRN, Katharine Oreilly MD levETIRAcetam (Keppra) tablet 1,000 mg, 1,000 mg, Oral, BID, Anaya Felton AUTOCUTTER, 1,000 mg at 02/23/25 08 lisinopril tablet 20 mg, 20 mg, Oral, BID, Anaya Felton AUTOCUTTER, 20 mg at 02/23/25 08 nebivolol (Bystolic) tablet 5 mg, 5 mg, Oral, Daily, Ranjana Yu MD, 5 mg at 02/23/25 08 ondansetron ODT (Zofran-ODT) disintegrating tablet 4 mg, 4 mg, Oral, q6h PRN OR ondansetron (Zofran) injection 4 mg, 4 mg, Intravenous, q6h PRN, Katharine Oreilly MD pantoprazole (Protonix) EC tablet 40 mg, 40 mg, Oral, Daily, Michael Jain, 40 mg at polyethylene glycol (Miralax) packet 17 g, 17 g, Oral, BID, Anaya Felton AUTOCUTTER, 17 g at senna-docusate (Maggy-Colace) 8.6-50 MG per tablet 2 tablet, 2 tablet, Oral, BID, Anaya Felton APRN, 2 tablet at 02/21/252054 sertraline (Zoloft) tablet 50 mg, 50 mg, Oral, Daily, Michael Jain A, 50 mg at 02/23/25 0833 Insert peripheral IV, , , Once AND Saline lock IV, , , Once AND sodium chloride 0.9 % flush10 mL, 10 mL, Intravenous, q12h, 10 mL at 02/22/25 0903 AND sodium chloride 0.9 % flush 10 mL, 10 mL, Intravenous, PRN, Katharine Oreilly MD * Progress Notes - Cuca Campoverde MD - 02/23/2025 8:36 AM EDT GME Consult Progress Note Hospital Day: 7 02/23/25 Subjective: ON given 1x hydralazine otherwise no acute events. Patient anxious but has a positive attitude for upcoming procedure. States she is ready to get the mass removed. Procedure re-scheduled to 02/24. No additional acute concerns or complaints. ROS: Constitutional: denies fevers, chills CV: denies chest pain, palpitations Resp: denies cough, SOA GI: denies nausea, vomiting Objective: Vitals: Temp: [36.3 ??C (97.4 ??F)-36.8 ??C (98.2 ??F)] 36.3 ??C (97.4 ??F) Heart Rate: [65-77] 70 Resp: [14-16] 15 BP: (121-168)/(59-86) 153/80 Physical Exam: General: appears stated age, no apparent distress HEENT: anicteric sclera, no conjunctival drainage CV: normal rate with regular rhythm, no appreciable MRG, no LE edema Resp: no appreciable wheezes/crackles, nonlabored breathing on RA GI: soft, no TTP, nondistended Neuro: awake and alert, anomic aphasia Psych: appropriate mood with congruent affect, cooperative during exam Labs and Imaging: WBC ?? Hgb ?? PLT ?? HCT ?? PTT ?? INR ?? antiXa ?? Na 134 (L) Cl ?? BUN ?? Gluc ?? K ?? Co2 ?? Creat ?? MR Head w IV Contrast Result Date: 02/23/2025 Impression: Stable heterogeneously enhancing mass in the left posterior insula and adjacent temporal lobe. Note: The study was performed for stereotactic localization. CRITICAL RESULT: No. COMMUNICATION: Per this written report. Drafted by Tanmay Alex MD on 02/22/2025 11:59 PM Final report signed by Tanmay Alex MD on 02/23/2025 12:08 AM Assessment and Plan: Wali Murrell is a 64 y.o. female presenting with PMH HTN who presented with word finding difficulty and newly discovered left insular brain mass. consulted for hyponatremia. 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 Most recent Na 134. - Currently at her baseline and given that has been present for at least 6 months, less likely to need correction before OR - Would continue to hold diuretics; patient with plans to go to OR on 02/24. Perioperative Risk Stratification - RCRI: 1 (h/o CVA in Sep 2024) - METS: METS >4 - EKG personally reviewed: NSR with PVCs, QTc 423 - Active cardiac condition such as chest pain, accelerating chest pain, dyspnea on exertion, new oruncontrolled arrhythmia are: Not Present - Date of last dose of antiplatelet/anticoagulation: Last dose of aspirin prior to admission on 02/17 - Decompensated organ condition (including acute CHF, acute COPD, acute decompensated cirrhosis) are: Not Present - Patient has NICOLE/home oxygen requirement: None - Echo is: Not required RECOMMENDTIONS: - Medical Optimization: Patient is medically optimized and can proceed to OR HTN - Home BP meds include lisinopril, nebivolol, and hydrochlorothiazide; lisinopril and nebivolol restarted on 02/19 per primary team - Received 1x PRN hydralazine overnight for BP of 146/81. - Continue to hold hydrochlorothiazide to avoid worsening hyponatremia - If SBP persistently >150s and patient requiring frequent doses of PRN hydralazine and PRN labetalol consider starting nifedipine 30mg daily as adjunct for high BP. - On day of OR would hold lisinopril. Continue nebivolol on day of OR. Brain mass with associated cerebral edema with brain compression - Keppra started during this admission; patient tolerating well - Holding anti-platelet agents pending OR - Management per NSGY Type 2 DM - Continue POCT BG monitoring - On steroids but glucose currently well controlled. Continue SSI. Depression: continue home Zoloft 50 mg daily GERD: continue home PPI Hx of CVA: Continue holding ASA, Plavix pending OR on 02/23. Continue home statin. Recommendations: - Continue ongoing fluid restriction given patient's Na baseline for the last six months and continued improvement in sodium levels. - Continue to hold hydrochlorothiazide to avoid worsening hyponatremia - Recommend continued BP monitoring and consider nifedipine 30mg daily as adjunct for high BP if requiring multiple correction doses of IV hydralazine to avoid reflex hypertension. - Continue holding ASA, Plavix pending OR today. Fluids: PO DVT Ppx: SQH Diet: Regular diet & fluid restriction: 1000 mL; NPO at DC. Code status: Full Code Thank you for allowing us to participate in the care of this patient. Please Secure Chat or page with any questions or concerns. GME will continue to follow. MEDICAL DECISION MAKING: Data: - Reviewed the following notes: NSGY reporting plans to proceed to OR on 02/24 for L craniotomy for tumor resection. - Reviewed labs which are significant for: stable hyponatremia (improved), mild leukocytosis, stable renal function. Cuca Campoverde MD Internal Medicine, PGY-2 Cosigned by Anaya Hdez MD at 02/23/2025 11:33 AM EDT Associated attestation - Anaya Hdez MD - 02/23/2025 11:33 AM EDT I saw and evaluated the patient. I discussed the case with the resident/fellow and agree with the findings and plan as documented. OR changed to tomorrow. BP a little elevated overnight and got IV hydralazine. Sodium is improved today. Continue to hold hydrochlorothiazide and fluid restrict. We will see tomorrow before OR. Anaya Hdez MD * Assessment & Plan Note - Anaya Felton APRN - 02/23/2025 7:32 AM EDT Associated Problem(s): Obesity, Class III, BMI 40-49.9 (morbid obesity) - Body mass index is 41.88 kg/m??. - Complicates all aspects of care and recovery * Assessment & Plan Note - Anaya Felton APRN - 02/23/2025 7:12 AM EDT Associated Problem(s): Hypertension - resume home medications as appropriate - SPB < 140 - prn labetalol and hydralazine - continue to monitor - Hospital Medicine recommendations from 02/22 - Continue to hold hydrochlorothiazide to avoid worsening hyponatremia - If SBP persistently >150s and patient requiring frequent doses of PRN hydralazine and PRN labetalol consider starting nifedipine 30mg daily as adjunct for high BP. - On day of OR would hold lisinopril and hydrochlorothiazide. Continue nebivolol on day of OR. * Assessment & Plan Note - Anaya Felton APRN - 02/23/2025 7:12 AM EDT Associated Problem(s): Hyponatremia - Na 132 on admission. As low as 125 - holding hydrochlorothiazide - continue to monitor - started fluid restriction - Hospital Medicine consulted, recommendations from 02/22 - Since mid-September 2024 sodium has ranged from 127-134 - Hypotonic hyponatremia based on serum osms, urine Na/Osm/Cr - Potentially SIADH from brain mass or Zoloft usage - Sodium improved with fluid restrictions; will continue. Most recent Na 132. - Currently at her baseline and given that has been present for at least 6 months, less likely to need correction before OR - Would continue to hold diuretics while pending OR to avoid further sodium wasting. * Assessment & Plan Note - Anaya Felton APRN - 02/23/2025 7:10 AM EDT Associated Problem(s): Brain tumor (benign) (CMS/HCC) - MRI head w/w/o - IV dex 4mg q6hrs - PPI while on steroids - Keppra started outpatient by Neurology but discontinued due to significant drowsiness and no changes in RLE symptoms - functional MRI for speech and motor function completed - fiducial MRI today - C/A/P CT scans negative for metastatic work-up - Hold all anticoagulation and antiplatelet medication - daily bowel regimen - Incentive spirometer q1h while awake - resume home medications as able - Avoid sedating medications as able - to OR today for L craniotomy for tumor resection - npo at midnight * Assessment & Plan Note - Anaya Felton APRN - 02/23/2025 7:10 AM EDT Associated Problem(s): Brain mass - MRI head w/w/o - IV dex 4mg q6hrs - PPI while on steroids - Keppra started outpatient by Neurology but discontinued due to significant drowsiness and no changes in RLE symptoms - functional MRI for speech and motor function completed - fiducial MRI today - C/A/P CT scans negative for metastatic work-up - Hold all anticoagulation and antiplatelet medication - daily bowel regimen - Incentive spirometer q1h while awake - resume home medications as able - Avoid sedating medications as able - to OR today for L craniotomy for tumor resection - npo at midnight * Assessment & Plan Note - Anaya Felton APRN - 02/23/2025 7:10 AM EDT Associated Problem(s): Sensory deficit, right - MRI head w/w/o - IV dex 4mg q6hrs - PPI while on steroids - Keppra started outpatient by Neurology but discontinued due to significant drowsiness and no changes in RLE symptoms - functional MRI for speech and motor function completed - fiducial MRI today - C/A/P CT scans negative for metastatic work-up - Hold all anticoagulation and antiplatelet medication - daily bowel regimen - Incentive spirometer q1h while awake - resume home medications as able - Avoid sedating medications as able - to OR today for L craniotomy for tumor resection - npo at midnight * Assessment & Plan Note - Anaya Felton APRN - 02/23/2025 7:10 AM EDT Associated Problem(s): Expressive aphasia - MRI head w/w/o - IV dex 4mg q6hrs - PPI while on steroids - Keppra started outpatient by Neurology but discontinued due to significant drowsiness and no changes in RLE symptoms - functional MRI for speech and motor function completed - fiducial MRI today - C/A/P CT scans negative for metastatic work-up - Hold all anticoagulation and antiplatelet medication - daily bowel regimen - Incentive spirometer q1h while awake - resume home medications as able - Avoid sedating medications as able - to OR today for L craniotomy for tumor resection - npo at midnight * Assessment & Plan Note - Anaya Felton APRN - 02/23/2025 7:10 AM EDT Associated Problem(s): History of CVA (cerebrovascular accident) - holding ASA and plavix for surgical intervention - continue statin * Assessment & Plan Note - Anaya Felton APRN - 02/23/2025 7:10 AM EDT Associated Problem(s): GERD (gastroesophageal reflux disease) - takes omeprazole at home - pantoprazole while inpatient * Assessment & Plan Note - Anaya Felton APRN - 02/23/2025 7:10 AM EDT Associated Problem(s): Depression - resume sertraline * Assessment & Plan Note - Anaya Felton APRN - 02/23/2025 7:10 AM EDT Associated Problem(s): Electrolyte disturbance - Hypophosphatemia - Hypomagnesemia - will replace per sliding scale protocol - continue to monitor - follow up labs * Assessment & Plan Note - Anaya Felton APRN - 02/23/2025 7:10 AM EDT Associated Problem(s): Hyperglycemia - likely steroid related - A1c pending - Insulin SQ sliding scale - Continue to monitor - consider Diabetic diet as needed * Progress Notes - Anaya Felton APRN - 02/23/2025 7:08 AM EDT Neurosurgery Progress Note Today's Date: 02/23/2025 Hospital course: Wali Murrell is a 64 y.o. female with pmhx of HTN, previous stroke on ASA/Plavix presenting with word finding difficulty and newly discovered left insular mass. Subjective Last 24 hours: To OR today for L crani for tumor resection. Review of Systems HENT: Negative for trouble swallowing. Eyes: Negative for visual disturbance. Respiratory: Negative for shortness of breath. Cardiovascular: Negative for chest pain. Gastrointestinal: Negative for constipation and nausea. Genitourinary: Negative for difficulty urinating. Neurological: Positive for speech difficulty. Negative for dizziness, weakness, numbness and headaches. Objective Medications Current Facility-Administered Medications Medication Dose Route Frequency Provider Last Rate Last Admin acetaminophen (Tylenol) tablet 650 mg 650 mg Oral q6h PRN Anaya Felton APRN bisacodyl (Dulcolax) suppository 10 mg 10 mg Rectal Daily PRN Anaya Felton APRN dexamethasone (Decadron) injection 4 mg 4 mg Intravenous q6h NipAnaya aguilar APRN 4 mg at glucose (Glutose) 40 % oral gel 15-30 grams of glucose 15-30 grams of glucose Sublingual q15 min PRN Anaya Felton APRN Or dextrose 50 % solution 12.5-25 g 12.5-25 g Intravenous q15 min PRN Anaya Felton APRN Or glucagon (human recombinant) injection 1 mg 1 mg Intramuscular q15 min PRN Anaya Felton APRN [Held by provider] heparin (porcine) injection 7,500 Units 7,500 Units Subcutaneous q8h Anaya Felton APRN 7,500 Units at 02/23/25 0032 hydrALAZINE (Apresoline) injection 10 mg 10 mg Intravenous q1h PRN Katharine Oreilly MD 10 mg at 02/22/25 2141 Or hydrALAZINE (Apresoline) injection 20 mg 20 mg Intravenous q1h PRN Katharine Oreilly MD 20 mg at 02/23/25 0514 insulin lispro (Admelog) 100 units/mL injection - Correction - Standard Dose 0-5 Units SubcutaneousTID with meals Anaya Felton APRN insulin lispro (Admelog) injection - Correction - Nighttime Dose 0-3 Units Subcutaneous Twice at night Anaya Felton APRN labetalol (Normodyne,Trandate) injection 10 mg 10 mg Intravenous q1h PRKatharine Dowell MD Or labetalol (Normodyne,Trandate) injection 20 mg 20 mg Intravenous q1h PRN Katharine Oreilly MD levETIRAcetam (Keppra) tablet 1,000 mg 1,000 mg Oral BID Anaya Felton AUTOCUTTER 1,000 mg at lisinopril tablet 20 mg 20 mg Oral BID Anaya Felton, AUTOCUTTER 20 mg at 02/22/252055 nebivolol (Bystolic) tablet 5 mg 5 mg Oral Daily Ranjana Yu MD 5 mg at 02/22/25899 ondansetron ODT (Zofran-ODT) disintegrating tablet 4 mg 4 mg Oral q6h PRN Katharine Oreilly MD Or ondansetron (Zofran) injection 4 mg 4 mg Intravenous q6h PRN Katharine Oreilly MD pantoprazole (Protonix) EC tablet 40 mg 40 mg Oral Daily Rommeltito Michael A 40 mg at 02/22/25899 polyethylene glycol (Miralax) packet 17 g 17 g Oral BID Anaya Felton, AUTOCUTTER 17 g at 02/22/25 09 senna-docusate (Maggy-Colace) 8.6-50 MG per tablet 2 tablet 2 tablet Oral BID Anaya Felton, APRN2 tablet at 02/21/252054 sertraline (Zoloft) tablet 50 mg 50 mg Oral Daily Markmeltito Michael A 50 mg at 02/22/25 09 sodium chloride 0.9 % flush 10 mL 10 mL Intravenous q12h Katharine Oreilly MD 10 mL at 02/22/25 09 And sodium chloride 0.9 % flush 10 mL 10 mL Intravenous PRN Katharine Oreilly MD Last Recorded Vitals Visit Vitals BP (!) 145/77 (BP Location: Right arm, Patient Position: Lying) Pulse 71 Temp 36.6 ??C (97.9 ??F) (Oral) Resp 16 Ht 1.676 m (5' 6 ) Wt 118 kg (259 lb 7.7 oz) SpO2 96% BMI 41.88 kg/m?? OB Status Postmenopausal Smoking Status Never BSA 2.34 m?? Labs Labs in last 18 hours CBC WBC ?? Hb ?? Plt ?? Hct ?? BMP Na 134 (L) Cl ?? BUN ?? Glu ?? K ?? Co2 ?? Cr ?? Outputs Intake/Output Summary (Last 24 hours) at 02/23/2025 0732 Last data filed at 02/22/20251999 Gross per 24 hour Intake 1730 ml Output 2400 ml Net -670 ml Output by Drain (mL) 02/21/25 0700 - 02/21/25 1859 02/21/25 1900 - 02/22/25 0659 02/22/25 07 - 02/22/25 1859 02/22/25 1900 - 02/23/25 0659 02/23/25 0700 - 02/23/25 0732 Patient has no LDAs of requested type attached. Physical Exam GEN: well developed, no acute distress. Obese habitus HEENT: normocephalic, atraumatic, no scleral icterus, oropharynx clear PULM: airways patent, non-labored breathing, normal effort. CV: normal rate and regular rhythm ABD: soft, non-tender, non-distended MSK: no joint swelling, normal range of motion SKIN: warm and dry, capillary refill <2 seconds PSYCHE: normal mood and affect Neuro Exam GCS (EMV): 465 Awake, alert, oriented Speech: clear, intact. Word finding difficulties Follows commands appropriately PERRL, EOMI KRAUSE symmetrically, no drift Imaging 02/17/25 MR HEAD W AND WO IV CONTRAST IMPRESSION: Heterogeneously enhancing mass in the left insula and temporal lobe. The appearance is most consistent with primary brain neoplasm such as glioblastoma or other high-grade glioma. Metastasis is felt to be less likely. 02/16/25 CT Chest/Abdomen/Pelvis w IV contrast IMPRESSION: 1. No acute findings in the chest, abdomen and pelvis. 2. No evidence of metastatic disease or underlying neoplasm in the chest, abdomen and pelvis. 02/16/[address]: IMPRESSION: Mass noted in the left insula and posterior temporal region. This is most concerning for primary brain neoplasm and can be further evaluated with MRI. 02/16/25 Neck CTA: IMPRESSION: 1.Possible fibromuscular dysplasia in the cervical internal carotid arteries bilaterally. 2.Moderate stenosis of the cervical right vertebral artery. 02/16/25 Head CTA: IMPRESSION: No hemodynamically significant intracranial arterial stenosis or aneurysm is present. Imaging was reviewed on am rounds with team and agree with above Assessment and Plan Wali Murrell is a 64 y.o. female with pmhx of HTN, previous stroke on ASA/Plavix presenting with word finding difficulty and newly discovered left insular mass. Length of stay: 7 d Attending: Ned Menendez MD Assessment & Plan Brain tumor (benign) (CMS/HCC) Brain mass Sensory deficit, right Expressive aphasia - MRI head w/w/o - IV dex 4mg q6hrs - PPI while on steroids - Keppra started outpatient by Neurology but discontinued due to significant drowsiness and no changes in RLE symptoms - functional MRI for speech and motor function completed - fiducial MRI today - C/A/P CT scans negative for metastatic work-up - Hold all anticoagulation and antiplatelet medication - daily bowel regimen - Incentive spirometer q1h while awake - resume home medications as able - Avoid sedating medications as able - to OR today for L craniotomy for tumor resection - npo at midnight History of CVA (cerebrovascular accident) - holding ASA and plavix for surgical intervention - continue statin Hypertension - resume home medications as appropriate - SPB < 140 - prn labetalol and hydralazine - continue to monitor - Hospital Medicine recommendations from 02/22 - Continue to hold hydrochlorothiazide to avoid worsening hyponatremia - If SBP persistently >150s and patient requiring frequent doses of PRN hydralazine and PRN labetalol consider starting nifedipine 30mg daily as adjunct for high BP. - On day of OR would hold lisinopril and hydrochlorothiazide. Continue nebivolol on day of OR. GERD (gastroesophageal reflux disease) - takes omeprazole at home - pantoprazole while inpatient Depression - resume sertraline Hyponatremia - Na 132 on admission. As low as 125 - holding hydrochlorothiazide - continue to monitor - started fluid restriction - Hospital Medicine consulted, recommendations from 02/22 - Since mid-September 2024 sodium has ranged from 127-134 - Hypotonic hyponatremia based on serum osms, urine Na/Osm/Cr - Potentially SIADH from brain mass or Zoloft usage - Sodium improved with fluid restrictions; will continue. Most recent Na 132. - Currently at her baseline and given that has been present for at least 6 months, less likely to need correction before OR - Would continue to hold diuretics while pending OR to avoid further sodium wasting. Electrolyte disturbance - Hypophosphatemia - Hypomagnesemia - will replace per sliding scale protocol - continue to monitor - follow up labs Hyperglycemia - likely steroid related - A1c pending - Insulin SQ sliding scale - Continue to monitor - consider Diabetic diet as needed Obesity, Class III, BMI 40-49.9 (morbid obesity) - Body mass index is 41.88 kg/m??. - Complicates all aspects of care and recovery F: saline lock IV E: Monitor and replace prn N: NPO PPX: SCDs, SQH (on hold for OR) Medically Ready for Discharge:Anticipated Tomorrow Thank you for allowing us to participate in the care of this patient. Please call with any questions or concerns. Anaya Felton DNP, AUTOCUTTER Advanced Practice Provider Department of Neurosurgery [facility] * Significant Event - Dov Mccurdy MD - 02/23/2025 6:30 AM EDT To OR today Dov Mccurdy MD * Care Plan - Kathleen Carlin RN - 02/23/2025 6:23 AM EDT Pt is in positive upbeat mood preparing for surgery. Pt reports that she is less anxious and more optimistic and looking forward to getting this mass removed. VSS * Assessment & Plan Note - Katharine Oreilly MD - 02/22/2025 11:46 AM EDT Associated Problem(s): Brain tumor (benign) (CMS/HCC) - MRI head w/w/o - IV dex 4mg q6hrs - PPI while on steroids - Keppra started outpatient by Neurology but discontinued due to significant drowsiness and no changes in RLE symptoms - functional MRI for speech and motor function completed - fiducial MRI today - C/A/P CT scans negative for metastatic work-up - Hold all anticoagulation and antiplatelet medication - daily bowel regimen - Incentive spirometer q1h while awake - resume home medications as able - Avoid sedating medications as able - L craniotomy for tumor resection 02/23 - npo at midnight * Assessment & Plan Note - Katharine Oreilly MD - 02/22/2025 11:46 AM EDT Associated Problem(s): Brain mass - MRI head w/w/o - IV dex 4mg q6hrs - PPI while on steroids - Keppra started outpatient by Neurology but discontinued due to significant drowsiness and no changes in RLE symptoms - functional MRI for speech and motor function completed - fiducial MRI today - C/A/P CT scans negative for metastatic work-up - Hold all anticoagulation and antiplatelet medication - daily bowel regimen - Incentive spirometer q1h while awake - resume home medications as able - Avoid sedating medications as able - L craniotomy for tumor resection 02/23 - npo at midnight * Assessment & Plan Note - Katharine Oreilly MD - 02/22/2025 11:46 AM EDT Associated Problem(s): Sensory deficit, right - MRI head w/w/o - IV dex 4mg q6hrs - PPI while on steroids - Keppra started outpatient by Neurology but discontinued due to significant drowsiness and no changes in RLE symptoms - functional MRI for speech and motor function completed - fiducial MRI today - C/A/P CT scans negative for metastatic work-up - Hold all anticoagulation and antiplatelet medication - daily bowel regimen - Incentive spirometer q1h while awake - resume home medications as able - Avoid sedating medications as able - L craniotomy for tumor resection 02/23 - npo at midnight * Assessment & Plan Note - Katharine Oreilly MD - 02/22/2025 11:46 AM EDT Associated Problem(s): Expressive aphasia - MRI head w/w/o - IV dex 4mg q6hrs - PPI while on steroids - Keppra started outpatient by Neurology but discontinued due to significant drowsiness and no changes in RLE symptoms - functional MRI for speech and motor function completed - fiducial MRI today - C/A/P CT scans negative for metastatic work-up - Hold all anticoagulation and antiplatelet medication - daily bowel regimen - Incentive spirometer q1h while awake - resume home medications as able - Avoid sedating medications as able - L craniotomy for tumor resection Sunday, 02/23 - npo at midnight * Assessment & Plan Note - Katharine Oreilly MD - 02/22/2025 11:46 AM EDT Associated Problem(s): History of CVA (cerebrovascular accident) - holding ASA and plavix for surgical intervention - continue statin * Assessment & Plan Note - Katharine Oreilly MD - 02/22/2025 11:46 AM EDT Associated Problem(s): Hypertension - resume home medications as appropriate - SPB < 140 - prn labetalol and hydralazine - continue to monitor * Assessment & Plan Note - Katharine Oreilly MD - 02/22/2025 11:46 AM EDT Associated Problem(s): GERD (gastroesophageal reflux disease) - takes omeprazole at home - pantoprazole while inpatient * Assessment & Plan Note - Katharine Oreilly MD - 02/22/2025 11:46 AM EDT Associated Problem(s): Depression - resume sertraline * Assessment & Plan Note - Katharine Oreilly MD - 02/22/2025 11:46 AM EDT Associated Problem(s): Hyponatremia - Na 132 on admission. 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 - I ordered serum osms, Urine Na/Osm/creatinine - Agree with ongoing fluid restriction by primary team as is likely SIADH - Currently at her baseline and given that has been present for at least 6 months, less likely to need correction before OR * Assessment & Plan Note - Katharine Oreilly MD - 02/22/2025 11:46 AM EDT Associated Problem(s): Electrolyte disturbance - Hypophosphatemia - Hypomagnesemia - will replace per sliding scale protocol - continue to monitor - follow up labs * Assessment & Plan Note - Katharine Oreilly MD - 02/22/2025 11:46 AM EDT Associated Problem(s): Hyperglycemia - likely steroid related - A1c pending - Insulin SQ sliding scale - Continue to monitor - consider Diabetic diet as needed * Assessment & Plan Note - Katharine Oreilly MD - 02/22/2025 11:46 AM EDT Associated Problem(s): Obesity, Class III, BMI 40-49.9 (morbid obesity) - Body mass index is 41.38 kg/m??. - Complicates all aspects of care and recovery * Progress Notes - Katharine Oreilly MD - 02/22/2025 11:45 AM EDT Neurosurgery Progress Note Today's Date: 02/22/2025 Hospital course: Wali Murrell is a 64 y.o. female with pmhx of HTN, previous stroke on ASA/Plavix presenting with word finding difficulty and newly discovered left insular mass. Subjective Last 24 hours: Will obtain Fiducial MRI today and dillon/consent for L crani for tumor tomorrow. Review of Systems HENT: Negative for trouble swallowing. Eyes: Negative for visual disturbance. Respiratory: Negative for shortness of breath. Cardiovascular: Negative for chest pain. Gastrointestinal: Negative for constipation and nausea. Genitourinary: Negative for difficulty urinating. Neurological: Positive for speech difficulty. Negative for dizziness, weakness, numbness and headaches. Objective Medications Current Facility-Administered Medications Medication Dose Route Frequency Provider Last Rate Last Admin acetaminophen (Tylenol) tablet 650 mg 650 mg Oral q6h PRN Anaya Felton APRN bisacodyl (Dulcolax) suppository 10 mg 10 mg Rectal Daily PRN Anaya Felton APRN dexamethasone (Decadron) injection 4 mg 4 mg Intravenous q6h Anaya Felton APRN 4 mg at 655 glucose (Glutose) 40 % oral gel 15-30 grams of glucose 15-30 grams of glucose Sublingual q15 min PRN Anaya Felton APRN Or dextrose 50 % solution 12.5-25 g 12.5-25 g Intravenous q15 min PRN Anaya Felton APRN Or glucagon (human recombinant) injection 1 mg 1 mg Intramuscular q15 min PRN Anaya Felton APRN heparin (porcine) injection 7,500 Units 7,500 Units Subcutaneous q8h Anaya Felton APRN 7,500 Units at 02/22/25 0654 hydrALAZINE (Apresoline) injection 10 mg 10 mg Intravenous q1h PRN Katharine Oreilly MD 10 mg at 02/18/252117 Or hydrALAZINE (Apresoline) injection 20 mg 20 mg Intravenous q1h PRN Katharine Oreilly MD 20 mg at 02/22/25 0400 insulin lispro (Admelog) 100 units/mL injection - Correction - Standard Dose 0-5 Units SubcutaneousTID with meals Anaya Felton APRN insulin lispro (Admelog) injection - Correction - Nighttime Dose 0-3 Units Subcutaneous Twice at night Anaya Felton APRN labetalol (Normodyne,Trandate) injection 10 mg 10 mg Intravenous q1h PRN Katharine Oreilly MD Or labetalol (Normodyne,Trandate) injection 20 mg 20 mg Intravenous q1h PRN Katharine Oreilly MD levETIRAcetam (Keppra) tablet 1,000 mg 1,000 mg [facility],000 mg at 900 lisinopril tablet 20 mg 20 mg Oral BID Ko Feltonah Ever, AUTOCUTTER 20 mg at 02/22/25 0901 nebivolol (Bystolic) tablet 5 mg 5 mg Oral Daily Ranjana Yu MD 5 mg at 02/22/25 0900 ondansetron ODT (Zofran-ODT) disintegrating tablet 4 mg 4 mg Oral q6h PRN Katharine Oreilly MD Or ondansetron (Zofran) injection 4 mg 4 mg Intravenous q6h PRN Katharine Oreilly MD pantoprazole (Protonix) EC tablet 40 mg 40 mg Oral Daily Susy Michael A 40 mg at 02/22/25 0900 polyethylene glycol (Miralax) packet 17 g 17 g Oral BID Anaya Felton, AUTOCUTTER 17 g at 02/22/25 0900 senna-docusate (Maggy-Colace) 8.6-50 MG per tablet 2 tablet 2 tablet Oral BID Anaya Felton , AUTOCUTTER 2 tablet at 02/21/252054 sertraline (Zoloft) tablet 50 mg 50 mg Oral Daily Markmelman, Michael A 50 mg at 02/22/25 0901 sodium chloride 0.9 % flush 10 mL 10 mL Intravenous q12h Katharine Oreilly MD 10 mL at 02/22/25 0903 And sodium chloride 0.9 % flush 10 mL 10 mL Intravenous PRN Katharine Oreilly MD Last Recorded Vitals Visit Vitals BP 131/75 Pulse 78 Temp 36.8 ??C (98.2 ??F) (Oral) Resp 16 Ht 1.676 m (5' 6 ) Wt 116 kg (256 lb 6.3 oz) SpO2 97% BMI 41.38 kg/m?? OB Status Postmenopausal Smoking Status Never BSA 2.32 m?? Labs Labs in last 18 hours CBC WBC ?? Hb ?? Plt ?? Hct ?? BMP Na 132 (L) Cl ?? BUN ?? Glu ?? K ?? Co2 ?? Cr ?? Outputs Intake/Output Summary (Last 24 hours) at 02/22/2025 1145 Last data filed at 02/22/2025 1037 Gross per 24 hour Intake 1700 ml Output 700 ml Net 1000 ml Output by Drain (mL) 02/20/25 0700 - 02/20/25 1859 02/20/25 1900 - 02/21/25 0659 02/21/25 0700 - 02/21/25 1859 02/21/25 1900 - 02/22/25 0659 02/22/25 0700 - 02/22/25 1145 Patient has no LDAs of requested type attached. Physical Exam GEN: well developed, no acute distress. Obese habitus HEENT: normocephalic, atraumatic, no scleral icterus, oropharynx clear PULM: airways patent, non-labored breathing, normal effort. CV: normal rate and regular rhythm ABD: soft, non-tender, non-distended MSK: no joint swelling, normal range of motion SKIN: warm and dry, capillary refill <2 seconds PSYCHE: normal mood and affect Neuro Exam GCS (EMV): 465 Awake, alert, oriented Speech: clear, intact. Word finding difficulties Follows commands appropriately PERRL, EOMI KRAUSE symmetrically, no drift Imaging 02/17/25 MR HEAD W AND WO IV CONTRAST IMPRESSION: Heterogeneously enhancing mass in the left insula and temporal lobe. The appearance is most consistent with primary brain neoplasm such as glioblastoma or other high-grade glioma. Metastasis is felt to be less likely. 02/16/25 CT Chest/Abdomen/Pelvis w IV contrast IMPRESSION: 1. No acute findings in the chest, abdomen and pelvis. 2. No evidence of metastatic disease or underlying neoplasm in the chest, abdomen and pelvis. 02/16/[address]: IMPRESSION: Mass noted in the left insula and posterior temporal region. This is most concerning for primary brain neoplasm and can be further evaluated with MRI. 02/16/25 Neck CTA: IMPRESSION: 1.Possible fibromuscular dysplasia in the cervical internal carotid arteries bilaterally. 2.Moderate stenosis of the cervical right vertebral artery. 02/16/25 Head CTA: IMPRESSION: No hemodynamically significant intracranial arterial stenosis or aneurysm is present. Imaging was reviewed on am rounds with team and agree with above Assessment and Plan Wali Murrell is a 64 y.o. female with pmhx of HTN, previous stroke on ASA/Plavix presenting with word finding difficulty and newly discovered left insular mass. Length of stay: 6 d Attending: Ned Menendez MD Assessment & Plan Brain tumor (benign) (CMS/HCC) Brain mass Sensory deficit, right Expressive aphasia - MRI head w/w/o - IV dex 4mg q6hrs - PPI while on steroids - Keppra started outpatient by Neurology but discontinued due to significant drowsiness and no changes in RLE symptoms - functional MRI for speech and motor function completed - fiducial MRI today - C/A/P CT scans negative for metastatic work-up - Hold all anticoagulation and antiplatelet medication - daily bowel regimen - Incentive spirometer q1h while awake - resume home medications as able - Avoid sedating medications as able - L craniotomy for tumor resection Sunday, 02/23 - npo at midnight History of CVA (cerebrovascular accident) - holding ASA and plavix for surgical intervention - continue statin Hypertension - resume home medications as appropriate - SPB < 140 - prn labetalol and hydralazine - continue to monitor GERD (gastroesophageal reflux disease) - takes omeprazole at home - pantoprazole while inpatient Depression - resume sertraline Hyponatremia - Na 132 on admission. 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 - I ordered serum osms, Urine Na/Osm/creatinine - Agree with ongoing fluid restriction by primary team as is likely SIADH - Currently at her baseline and given that has been present for at least 6 months, less likely to need correction before OR Electrolyte disturbance - Hypophosphatemia - Hypomagnesemia - will replace per sliding scale protocol - continue to monitor - follow up labs Hyperglycemia - likely steroid related - A1c pending - Insulin SQ sliding scale - Continue to monitor - consider Diabetic diet as needed Obesity, Class III, BMI 40-49.9 (morbid obesity) - Body mass index is 41.38 kg/m??. - Complicates all aspects of care and recovery F: saline lock IV / PO intake E: Monitor and replace prn N: Regular diet + 1L fluid restriction PPX: SCDs, SQH Medically Ready for Discharge:Anticipated in 5+ Days Thank you for allowing us to participate in the care of this patient. Please call with any questions or concerns. Katharine Oreilly MD Resident Physician, PGY-2 Department of Neurosurgery [facility] Cosigned by Israel Guillen MD at 02/23/2025 4:39 PM EDT Associated attestation - Israel Guillen MD - 02/23/2025 4:39 PM EDT Signature only. * Progress Notes - Cuca Campoverde MD - 02/22/2025 11:12 AM EDT GME Consult Progress Note Hospital Day: 6 02/22/25 Subjective: ON given 1x hydralazine otherwise no acute events. Doing well this morning, she had not acute concerns or complaints. Tolerating PO intake. Family at bedside. ROS: Constitutional: denies fevers, chills CV: denies chest pain, palpitations Resp: denies cough, SOA GI: denies nausea, vomiting Objective: Vitals: Temp: [36.4 ??C (97.5 ??F)-36.8 ??C (98.2 ??F)] 36.8 ??C (98.2 ??F) Heart Rate: [59-78] 78 Resp: [16] 16 BP: (125-157)/(63-88) 131/75 Physical Exam: General: appears stated age, no apparent distress HEENT: anicteric sclera, no conjunctival drainage CV: normal rate with regular rhythm, no appreciable MRG, no LE edema Resp: no appreciable wheezes/crackles, nonlabored breathing on RA GI: soft, no TTP, nondistended Neuro: awake and alert, anomic aphasia Psych: appropriate mood with congruent affect, cooperative during exam Labs and Imaging: CBC BMP WBC ?? Hb ?? Plt ?? Na 132 (L) Cl ?? BUN ?? Glu ?? Hct ?? K ?? Co2 ?? Cr ?? Assessment and Plan: Wali Murrell is a 64 y.o. female presenting with PMH HTN who presented with word finding difficulty and newly discovered left insular brain mass. HM consulted for hyponatremia. 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 Most recent Na 132. - Currently at her baseline and given that has been present for at least 6 months, less likely to need correction before OR - Would continue to hold diuretics while pending OR to avoid further sodium wasting. Perioperative Risk Stratification - RCRI: 1 (h/o CVA in Sep 2024) - METS: METS >4 - EKG personally reviewed: NSR with PVCs, QTc 423 - Active cardiac condition such as chest pain, accelerating chest pain, dyspnea on exertion, new oruncontrolled arrhythmia are: Not Present - Date of last dose of antiplatelet/anticoagulation: Last dose of aspirin prior to admission on 02/17 - Decompensated organ condition (including acute CHF, acute COPD, acute decompensated cirrhosis) are: Not Present - Patient has NICOLE/home oxygen requirement: None - Echo is: Not required RECOMMENDTIONS: - Medical Optimization: Patient is medically optimized and can proceed to OR HTN - Home BP meds include lisinopril, nebivolol, and hydrochlorothiazide; lisinopril and nebivolol restarted on 02/19 per primary team - Received 1x PRN hydralazine overnight for BP of 146/81. - Continue to hold hydrochlorothiazide to avoid worsening hyponatremia - If SBP persistently >150s and patient requiring frequent doses of PRN hydralazine and PRN labetalol consider starting nifedipine 30mg daily as adjunct for high BP. - On day of OR would hold lisinopril and hydrochlorothiazide. Continue nebivolol on day of OR. Brain mass with associated cerebral edema with brain compression - Keppra started during this admission; patient tolerating well - Holding anti-platelet agents pending OR - Management per NSGY Type 2 DM - Continue POCT BG monitoring - On steroids but glucose currently well controlled. Continue SSI. Depression: continue home Zoloft 50 mg daily GERD: continue home PPI Hx of CVA: Continue holding ASA, Plavix pending OR on 02/23. Continue home statin. Recommendations: - Continue ongoing fluid restriction given patient's Na baseline for the last six months and improvement seen on today's chemistries - Continue to hold hydrochlorothiazide to avoid worsening hyponatremia - Recommend BP monitoring today and consider nifedipine 30mg daily as adjunct for high BP if requiring multiple correction doses of IV hydralazine to avoid reflex hypertension. - Continue holding ASA, Plavix pending OR on 02/23 Fluids: PO DVT Ppx: SQH and SCDs Diet: Regular diet, fluid restriction: 1000 mL Code status: Full Code Thank you for allowing us to participate in the care of this patient. Please Secure Chat or page with any questions or concerns. GME will continue to follow. Cuca Campoverde MD Internal Medicine, PGY-2 Cosigned by Anaya Hdez MD at 02/22/2025 12:24 PM EDT Associated attestation - Anaya Hdez MD - 02/22/2025 12:24 PM EDT I saw and evaluated the patient. I discussed the case with the resident/fellow and agree with the findings and plan as documented. Sodium remains stable. IV hydralazine x1. No concerns this morning. Anxious about surgery tomorrow,but ready. Anaya Hdez MD * Progress Notes - Cuca Campoverde MD - 02/21/2025 12:30 PM EDT GME Consult Progress Note Hospital Day: 02/21/25 Subjective: NAEO. Doing well today/in good spirits. Family at bedside. She had not acute concerns or complaints. Tolerating PO intake. ROS: Constitutional: denies fevers, chills CV: denies chest pain, palpitations Resp: denies cough, SOA GI: denies nausea, vomiting Objective: Vitals: Temp: [36.3 ??C (97.4 ??F)-36.8 ??C (98.3 ??F)] 36.5 ??C (97.7 ??F) Heart Rate: [64-81] 64 Resp: [16-183] 16 BP: (123-164)/(60-115) 125/63 Physical Exam: General: appears stated age, no apparent distress HEENT: anicteric sclera, no conjunctival drainage CV: normal rate with regular rhythm, no appreciable MRG, no LE edema Resp: no appreciable wheezes/crackles, nonlabored breathing on RA GI: soft, no TTP, nondistended Neuro: awake and alert, anomic aphasia Psych: appropriate mood with congruent affect, cooperative during exam Labs and Imaging: CBC BMP WBC ?? Hb ?? Plt ?? Na 132 (L) Cl ?? BUN ?? Glu ?? Hct ?? K ?? Co2 ?? Cr ?? Assessment and Plan: Wali Murrell is a 64 y.o. female presenting with PMH HTN who presented with word finding difficulty and newly discovered left insular brain mass. consulted for hyponatremia. 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 - Currently at her baseline and given that has been present for at least 6 months, less likely to need correction before OR - Would continue to hold diuretics while pending OR to avoid further sodium wasting. Perioperative Risk Stratification - RCRI: 1 (h/o CVA in Sep 2024) - METS: METS >4 - EKG personally reviewed: NSR with PVCs, QTc 423 - Active cardiac condition such as chest pain, accelerating chest pain, dyspnea on exertion, new oruncontrolled arrhythmia are: Not Present - Date of last dose of antiplatelet/anticoagulation: Last dose of aspirin prior to admission on 02/17 - Decompensated organ condition (including acute CHF, acute COPD, acute decompensated cirrhosis) are: Not Present - Patient has NICOLE/home oxygen requirement: None - Echo is: Not required RECOMMENDTIONS: - Medical Optimization: Patient is medically optimized and can proceed to OR HTN - Home BP meds include lisinopril, nebivolol, and hydrochlorothiazide; lisinopril and nebivolol restarted on 02/19 per primary team - Received 1x PRN hydralazine overnight fro BP of 164/115. - Continue to hold hydrochlorothiazide to avoid worsening hyponatremia - If SBP persistently >150s and patient requiring frequent doses of PRN hydralazine and PRN labetalol consider starting nifedipine 30mg daily as adjunct for high BP. - On day of OR would hold lisinopril and hydrochlorothiazide. Continue nebivolol on day of OR. Brain mass with associated cerebral edema with brain compression - Keppra started during this admission; patient tolerating well - Holding anti-platelet agents pending OR - Management per NSGY Type 2 DM - Continue POCT BG monitoring - On steroids but glucose currently well controlled. Continue SSI. Depression: continue home Zoloft 50 mg daily GERD: continue home PPI Hx of CVA: Continue holding ASA, Plavix pending OR on 02/23. Continue home statin. Recommendations: - Continue ongoing fluid restriction given patient's Na baseline for the last six months and improvement seen on today's chemistries - Continue to hold hydrochlorothiazide to avoid worsening hyponatremia - Recommend BP monitoring today and consider nifedipine 30mg daily as adjunct for high BP if requiring multiple correction doses of IV hydralazine to avoid reflex hypertension. - Continue holding ASA, Plavix pending OR on 02/23 Fluids: PO DVT Ppx: SQH and SCDs Diet: Regular diet, fluid restriction: 1000 mL Code status: Full Code Thank you for allowing us to participate in the care of this patient. Please Secure Chat or page with any questions or concerns. GME will continue to follow. Cuca Campoverde MD Internal Medicine, PGY-2 Cosigned by Anaya Hdez MD at 02/21/2025 1:33 PM EDT Associated attestation - Anaya Hdez MD - 02/21/2025 1:33 PM EDT I saw and evaluated the patient. I discussed the case with the resident/fellow and agree with the findings and plan as documented. Doing well today. Sodium stable. Still has word finding difficulties but no other symptoms from hyponatremia. Given IV hydralazine x 1, but overall BP has been controlled. Anaya Hdez MD * Assessment & Plan Note - Ranjana Yu MD - 02/21/2025 7:59 AM EDT Associated Problem(s): Brain tumor (benign) (CMS/HCC) - MRI head w/w/o - IV dex 4mg q6hrs - PPI while on steroids - Keppra started outpatient by Neurology but discontinued due to significant drowsiness and no changes in RLE symptoms - functional MRI for speech and motor function - fiducial MRI Sunday - C/A/P CT scans negative for metastatic work-up - Hold all anticoagulation and antiplatelet medication - daily bowel regimen - Incentive spirometer q1h while awake - resume home medications as able - Avoid sedating medications as able - plan for operative intervention 02/23 * Assessment & Plan Note - Ranjana Yu MD - 02/21/2025 7:59 AM EDT Associated Problem(s): Brain mass - MRI head w/w/o - IV dex 4mg q6hrs - PPI while on steroids - Keppra started outpatient by Neurology but discontinued due to significant drowsiness and no changes in RLE symptoms - functional MRI for speech and motor function - fiducial MRI Sunday - C/A/P CT scans negative for metastatic work-up - Hold all anticoagulation and antiplatelet medication - daily bowel regimen - Incentive spirometer q1h while awake - resume home medications as able - Avoid sedating medications as able - plan for operative intervention 02/23 * Assessment & Plan Note - Ranjana Yu MD - 02/21/2025 7:59 AM EDT Associated Problem(s): Sensory deficit, right - MRI head w/w/o - IV dex 4mg q6hrs - PPI while on steroids - Keppra started outpatient by Neurology but discontinued due to significant drowsiness and no changes in RLE symptoms - functional MRI for speech and motor function - fiducial MRI Sunday - C/A/P CT scans negative for metastatic work-up - Hold all anticoagulation and antiplatelet medication - daily bowel regimen - Incentive spirometer q1h while awake - resume home medications as able - Avoid sedating medications as able - plan for operative intervention 02/23 * Assessment & Plan Note - Ranjana Yu MD - 02/21/2025 7:59 AM EDT Associated Problem(s): Expressive aphasia - MRI head w/w/o - IV dex 4mg q6hrs - PPI while on steroids - Keppra started outpatient by Neurology but discontinued due to significant drowsiness and no changes in RLE symptoms - functional MRI for speech and motor function - fiducial MRI Sunday - C/A/P CT scans negative for metastatic work-up - Hold all anticoagulation and antiplatelet medication - daily bowel regimen - Incentive spirometer q1h while awake - resume home medications as able - Avoid sedating medications as able - plan for operative intervention 02/23 * Assessment & Plan Note - Ranjana Yu MD - 02/21/2025 7:59 AM EDT Associated Problem(s): History of CVA (cerebrovascular accident) - holding ASA and plavix for surgical intervention - continue statin * Assessment & Plan Note - Ranjana Yu MD - 02/21/2025 7:59 AM EDT Associated Problem(s): Hypertension - resume home medications as appropriate - SPB < 140 - prn labetalol and hydralazine - continue to monitor * Assessment & Plan Note - Ranjana Yu MD - 02/21/2025 7:59 AM EDT Associated Problem(s): GERD (gastroesophageal reflux disease) - takes omeprazole at home - pantoprazole while inpatient * Assessment & Plan Note - Ranjana Yu MD - 02/21/2025 7:59 AM EDT Associated Problem(s): Depression - resume sertraline * Assessment & Plan Note - Ranjana Yu MD - 02/21/2025 7:59 AM EDT Associated Problem(s): Hyponatremia - Na 132 on admission. 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 - I ordered serum osms, Urine Na/Osm/creatinine - Agree with ongoing fluid restriction by primary team as is likely SIADH - Currently at her baseline and given that has been present for at least 6 months, less likely to need correction before OR * Assessment & Plan Note - Ranjana Yu MD - 02/21/2025 7:59 AM EDT Associated Problem(s): Electrolyte disturbance - Hypophosphatemia - Hypomagnesemia - will replace per sliding scale protocol - continue to monitor - follow up labs * Assessment & Plan Note - Ranjana Yu MD - 02/21/2025 7:59 AM EDT Associated Problem(s): Hyperglycemia - likely steroid related - A1c pending - Insulin SQ sliding scale - Continue to monitor - consider Diabetic diet as needed * Assessment & Plan Note - Ranjana Yu MD - 02/21/2025 7:59 AM EDT Associated Problem(s): Obesity, Class III, BMI 40-49.9 (morbid obesity) - Body mass index is 42.02 kg/m??. - Complicates all aspects of care and recovery * Progress Notes - Ranjana Yu MD - 02/21/2025 7:58 AM EDT Neurosurgery Progress Note Today's Date: 02/21/2025 Hospital course: Wali Murrell is a 64 y.o. female with pmhx of HTN, previous stroke on ASA/Plavix presenting with word finding difficulty and newly discovered left insular mass. Subjective Last 24 hours: NAEO, sodium improving, plan for OR next week Review of Systems HENT: Negative for trouble swallowing. Eyes: Negative for visual disturbance. Respiratory: Negative for shortness of breath. Cardiovascular: Negative for chest pain. Gastrointestinal: Negative for constipation and nausea. Genitourinary: Negative for difficulty urinating. Neurological: Positive for speech difficulty. Negative for dizziness, weakness, numbness and headaches. Objective Medications Current Facility-Administered Medications Medication Dose Route Frequency Provider Last Rate Last Admin acetaminophen (Tylenol) tablet 650 mg 650 mg Oral q6h PRN Anaya Felton APRN bisacodyl (Dulcolax) suppository 10 mg 10 mg Rectal Daily PRN Anaya Felton APRN dexamethasone (Decadron) injection 4 mg 4 mg Intravenous q6h NipAnaya aguilar AUTOCUTTER 4 mg at 147 glucose (Glutose) 40 % oral gel 15-30 grams of glucose 15-30 grams of glucose Sublingual q15 min PRN Anaya Felton APRN Or dextrose 50 % solution 12.5-25 g 12.5-25 g Intravenous q15 min PRN Anaya Felton APRN Or glucagon (human recombinant) injection 1 mg 1 mg Intramuscular q15 min PRN Anaya Felton APRN heparin (porcine) injection 7,500 Units 7,500 Units Subcutaneous q8h Anaya Felton APRN 7,500 Units at 02/20/25 2338 hydrALAZINE (Apresoline) injection 10 mg 10 mg Intravenous q1h PRN Katharine Oreilly MD 10 mg at 02/18/25 2118 Or hydrALAZINE (Apresoline) injection 20 mg 20 mg Intravenous q1h PRN Katharine Oreilly MD 20 mg at 02/21/25 0425 insulin lispro (Admelog) 100 units/mL injection - Correction - Standard Dose 0-5 Units SubcutaneousTID with meals Anaya Felton APRN insulin lispro (Admelog) injection - Correction - Nighttime Dose 0-3 Units Subcutaneous Twice at night Anaya Felton APRN labetalol (Normodyne,Trandate) injection 10 mg 10 mg Intravenous q1h PRKatharine Dowell MD Or labetalol (Normodyne,Trandate) injection 20 mg 20 mg Intravenous q1h PRN Katharine Oreilly MD levETIRAcetam (Keppra) tablet 1,000 mg 1,000 mg Oral BID Anaya Felton APRN 1,000 mg at lisinopril tablet 20 mg 20 mg Oral BID Anaya Felton AUTOCUTTER 20 mg at 02/20/252108 nebivolol (Bystolic) tablet 5 mg 5 mg Oral Daily Ranjana Yu MD 5 mg at 02/20/25 0818 ondansetron ODT (Zofran-ODT) disintegrating tablet 4 mg 4 mg Oral q6h PRN Katharine Oreilly MD Or ondansetron (Zofran) injection 4 mg 4 mg Intravenous q6h PRN Katharine Oreilly MD pantoprazole (Protonix) EC tablet 40 mg 40 mg Oral Daily Rommeltito Michael A 40 mg at 02/20/25 08 polyethylene glycol (Miralax) packet 17 g 17 g Oral BID Anaya Felton APRN 17 g at 02/20/252108 senna-docusate (Maggy-Colace) 8.6-50 MG per tablet 2 tablet 2 tablet Oral BID Anaya Felton APRN 2 tablet at 02/20/252108 sertraline (Zoloft) tablet 50 mg 50 mg Oral Daily Rommeltito Michael A 50 mg at 02/20/25 0816 sodium chloride 0.9 % flush 10 mL 10 mL Intravenous q12h Katharine Oreilly MD 10 mL at 02/20/252110 And sodium chloride 0.9 % flush 10 mL 10 mL Intravenous PRN Katharine Oreilly MD Last Recorded Vitals Visit Vitals BP 132/64 (BP Location: Left arm, Patient Position: Lying) Pulse 70 Temp 36.7 ??C (98 ??F) (Oral) Resp (!) 183 Ht 1.676 m (5' 6 ) Wt 118 kg (260 lb 5.8 oz) SpO2 96% BMI 42.02 kg/m?? OB Status Postmenopausal Smoking Status Never BSA 2.34 m?? Labs Labs in last 18 hours CBC WBC ?? Hb ?? Plt ?? Hct ?? BMP Na 132 (L) Cl ?? BUN ?? Glu ?? K ?? Co2 ?? Cr ?? Outputs Intake/Output Summary (Last 24 hours) at 02/21/2025757 Last data filed at 02/20/2025 2100 Gross per 24 hour Intake 1151 ml Output 525 ml Net 626 ml Output by Drain (mL) 02/19/25 0700 - 02/19/25 1859 02/19/25 1900 - 02/20/25 0659 02/20/25 07 - 02/20/25 1859 02/20/25 1900 - 02/21/25 0659 02/21/25 0700 - 02/21/25 0758 Patient has no LDAs of requested type attached. Physical Exam GEN: well developed, no acute distress. Obese habitus HEENT: normocephalic, atraumatic, no scleral icterus, oropharynx clear PULM: airways patent, non-labored breathing, normal effort. CV: normal rate and regular rhythm ABD: soft, non-tender, non-distended MSK: no joint swelling, normal range of motion SKIN: warm and dry, capillary refill <2 seconds PSYCHE: normal mood and affect Neuro Exam GCS (EMV): 465 Awake, alert, oriented Speech: clear, intact. Word finding difficulties Follows commands appropriately PERRL, EOMI KRAUSE symmetrically, no drift Imaging 02/17/25 MR HEAD W AND WO IV CONTRAST IMPRESSION: Heterogeneously enhancing mass in the left insula and temporal lobe. The appearance is most consistent with primary brain neoplasm such as glioblastoma or other high-grade glioma. Metastasis is felt to be less likely. 02/16/25 CT Chest/Abdomen/Pelvis w IV contrast IMPRESSION: 1. No acute findings in the chest, abdomen and pelvis. 2. No evidence of metastatic disease or underlying neoplasm in the chest, abdomen and pelvis. 02/16/[address]: IMPRESSION: Mass noted in the left insula and posterior temporal region. This is most concerning for primary brain neoplasm and can be further evaluated with MRI. 02/16/25 Neck CTA: IMPRESSION: 1.Possible fibromuscular dysplasia in the cervical internal carotid arteries bilaterally. 2.Moderate stenosis of the cervical right vertebral artery. 02/16/25 Head CTA: IMPRESSION: No hemodynamically significant intracranial arterial stenosis or aneurysm is present. Imaging was reviewed on am rounds with team and agree with above Assessment and Plan Wali Murrell is a 64 y.o. female with pmhx of HTN, previous stroke on ASA/Plavix presenting with word finding difficulty and newly discovered left insular mass. Length of stay: 5 d Attending: Ned Menendez MD Assessment & Plan Brain tumor (benign) (CMS/HCC) Brain mass Sensory deficit, right Expressive aphasia - MRI head w/w/o - IV dex 4mg q6hrs - PPI while on steroids - Keppra started outpatient by Neurology but discontinued due to significant drowsiness and no changes in RLE symptoms - functional MRI for speech and motor function - fiducial MRI Sunday - C/A/P CT scans negative for metastatic work-up - Hold all anticoagulation and antiplatelet medication - daily bowel regimen - Incentive spirometer q1h while awake - resume home medications as able - Avoid sedating medications as able - plan for operative intervention Sunday, 02/23 History of CVA (cerebrovascular accident) - holding ASA and plavix for surgical intervention - continue statin Hypertension - resume home medications as appropriate - SPB < 140 - prn labetalol and hydralazine - continue to monitor GERD (gastroesophageal reflux disease) - takes omeprazole at home - pantoprazole while inpatient Depression - resume sertraline Hyponatremia - Na 132 on admission. 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 - I ordered serum osms, Urine Na/Osm/creatinine - Agree with ongoing fluid restriction by primary team as is likely SIADH - Currently at her baseline and given that has been present for at least 6 months, less likely to need correction before OR Electrolyte disturbance - Hypophosphatemia - Hypomagnesemia - will replace per sliding scale protocol - continue to monitor - follow up labs Hyperglycemia - likely steroid related - A1c pending - Insulin SQ sliding scale - Continue to monitor - consider Diabetic diet as needed Obesity, Class III, BMI 40-49.9 (morbid obesity) - Body mass index is 42.02 kg/m??. - Complicates all aspects of care and recovery F: saline lock IV / PO intake E: Monitor and replace prn N: Regular diet + 1L fluid restriction PPX: SCDs, SQH Medically Ready for Discharge:Anticipated in 5+ Days Thank you for allowing us to participate in the care of this patient. Please call with any questions or concerns. Ranjana Yu MD Resident Physician, PGY-2 Department of Neurosurgery [facility] Cosigned by Israel Guillen MD at 02/23/2025 4:39 PM EDT Associated attestation - Israel Guillen MD - 02/23/2025 4:39 PM EDT Signature only. * Care Plan - Jayna Goldstein RN - 02/20/2025 12:08 PM EDT Problem: Adult Inpatient Plan of Care Goal: Plan of Care Review 02/20/20251206 by Jayna Goldstein RN Outcome: Ongoing, Progressing 02/20/20251206 by Jayna Goldstein RN Outcome: Ongoing, Progressing Goal: Patient-Specific Goal (Individualized) 02/20/20251206 by Jayna Goldstein RN Outcome: Ongoing, Progressing 02/20/20251206 by Jayna Goldstein RN Outcome: Ongoing, Progressing Goal: Absence of Hospital-Acquired Illness or Injury 02/20/20251206 by Jayna Goldstein RN Outcome: Ongoing, Progressing 02/20/20251206 by Jayna Goldstein RN Outcome: Ongoing, Progressing Goal: Optimal Comfort and Wellbeing 02/20/20251206 by Jayna Goldstein RN Outcome: Ongoing, Progressing 02/20/20251206 by Jayna Goldstein RN Outcome: Ongoing, Progressing Goal: Readiness for Transition of Care 02/20/20251206 by Jayna Goldstein RN Outcome: Ongoing, Progressing 02/20/20251206 by Jayna Goldstein RN Outcome: Ongoing, Progressing Problem: Functional Deficit Goal: Improved Balance and Postural Control Outcome: Ongoing, Progressing Goal: Optimal Cognitive Function Outcome: Ongoing, Progressing Goal: Optimal Coordination Outcome: Ongoing, Progressing Goal: Improved Muscle Strength Outcome: Ongoing, Progressing Goal: Improved Muscle Tone Outcome: Ongoing, Progressing Goal: Optimal Range of Motion Outcome: Ongoing, Progressing Goal: Compensation for Sensory Deficit Outcome: Ongoing, Progressing Problem: Communication Impairment Goal: Effective Communication Skills Outcome: Ongoing, Progressing * Assessment & Plan Note - Anaya Felton APRN - 02/20/2025 11:48 AM EDT Associated Problem(s): Obesity, Class III, BMI 40-49.9 (morbid obesity) - Body mass index is 42.02 kg/m??. - Complicates all aspects of care and recovery * Progress Notes - Anaya Felton APRN - 02/20/2025 10:37 AM EDT Neurosurgery Progress Note Today's Date: 02/20/2025 Hospital course: Wali Murrell is a 64 y.o. female with pmhx of HTN, previous stroke on ASA/Plavix presenting with word finding difficulty and newly discovered left insular mass. Subjective Last 24 hours: Blood pressure improved with resumption of lisinopril. She continues to have intermittent aphasia/word finding issues. Explained she had a pressure sensation in her head this morning resolved with morning mediations. Says it was not a headache. Sodium level slightly improving. Continue fluid restriction. Holding home hydrochlorothiazide. OR Sunday for resection Review of Systems HENT: Negative for trouble swallowing. Eyes: Negative for visual disturbance. Respiratory: Negative for shortness of breath. Cardiovascular: Negative for chest pain. Gastrointestinal: Negative for constipation and nausea. Genitourinary: Negative for difficulty urinating. Neurological: Positive for speech difficulty. Negative for dizziness, weakness, numbness and headaches. Objective Medications Current Facility-Administered Medications Medication Dose Route Frequency Provider Last Rate Last Admin acetaminophen (Tylenol) tablet 650 mg 650 mg Oral q6h PRN Anaya Felton APRN bisacodyl (Dulcolax) suppository 10 mg 10 mg Rectal Daily PRN Anaya Felton APRN dexamethasone (Decadron) injection 4 mg 4 mg Intravenous q6h NipAnaya aguilar, AUTOCUTTER 4 mg at 816 glucose (Glutose) 40 % oral gel 15-30 grams of glucose 15-30 grams of glucose Sublingual q15 min PRN Anaya Felton APRN Or dextrose 50 % solution 12.5-25 g 12.5-25 g Intravenous q15 min PRN Anaya Felton APRN Or glucagon (human recombinant) injection 1 mg 1 mg Intramuscular q15 min PRN Anaya Felton APRN heparin (porcine) injection 7,500 Units 7,500 Units Subcutaneous q8h Anaya Felton APRN 7,500 Units at 02/20/25 0631 hydrALAZINE (Apresoline) injection 10 mg 10 mg Intravenous q1h PRN Katharine Oreilly MD 10 mg at 02/18/25 2118 Or hydrALAZINE (Apresoline) injection 20 mg 20 mg Intravenous q1h PRN Katharine Oreilly MD 20 mg at 02/19/25 2336 insulin lispro (Admelog) 100 units/mL injection - Correction - Standard Dose 0-5 Units SubcutaneousTID with meals Anaya Felton APRN insulin lispro (Admelog) injection - Correction - Nighttime Dose 0-3 Units Subcutaneous Twice at night Anaya Felton APRN labetalol (Normodyne,Trandate) injection 10 mg 10 mg Intravenous q1h PRN Katharine Oreilly MD Or labetalol (Normodyne,Trandate) injection 20 mg 20 mg Intravenous q1h PRN Katharine Oreilly MD levETIRAcetam (Keppra) tablet 1,000 mg 1,000 mg Oral BID Anaya Felton APRN 1,000 mg at lisinopril tablet 20 mg 20 mg Oral BID Anaya Felton AUTOCUTTER 20 mg at 02/20/25815 nebivolol (Bystolic) tablet 5 mg 5 mg Oral Daily Ranjana Yu MD 5 mg at 02/20/25817 ondansetron ODT (Zofran-ODT) disintegrating tablet 4 mg 4 mg Oral q6h PRN Katharine Oreilly MD Or ondansetron (Zofran) injection 4 mg 4 mg Intravenous q6h PRN Katharine Oreilly MD pantoprazole (Protonix) EC tablet 40 mg 40 mg Oral Daily Hakan Jainus A 40 mg at 02/20/25815 polyethylene glycol (Miralax) packet 17 g 17 g Oral BID Anaya Felton AUTOCUTTER 17 g at 02/19/252039 senna-docusate (Maggy-Colace) 8.6-50 MG per tablet 2 tablet 2 tablet Oral BID Anaya Felton APRN 2 tablet at 02/19/252039 sertraline (Zoloft) tablet 50 mg 50 mg Oral Daily Hakan Jainus A 50 mg at 02/20/25815 sodium chloride 0.9 % flush 10 mL 10 mL Intravenous q12h Katharine Oreilly MD 10 mL at 02/19/252042 And sodium chloride 0.9 % flush 10 mL 10 mL Intravenous PRN Katharine Oreilly MD Last Recorded Vitals Visit Vitals BP 101/65 Pulse 70 Temp 36.3 ??C (97.4 ??F) Resp 18 Ht 1.676 m (5' 6 ) Wt 118 kg (260 lb 5.8 oz) SpO2 94% BMI 42.02 kg/m?? OB Status Postmenopausal Smoking Status Never BSA 2.34 m?? Labs Labs in last 18 hours CBC WBC ?? Hb ?? Plt ?? Hct ?? BMP Na 132 (L) Cl ?? BUN ?? Glu ?? K ?? Co2 ?? Cr ?? Outputs Intake/Output Summary (Last 24 hours) at 02/20/2025 1148 Last data filed at 02/20/2025 1100 Gross per 24 hour Intake 500 ml Output 300 ml Net 200 ml Output by Drain (mL) 02/18/25 0700 - 02/18/25 1859 02/18/25 1900 - 02/19/25 0659 02/19/25 0700 - 02/19/25 1859 02/19/25 1900 - 02/20/25 0659 02/20/25 0700 - 02/20/25 1148 Patient has no LDAs of requested type attached. Physical Exam GEN: well developed, no acute distress. Obese habitus HEENT: normocephalic, atraumatic, no scleral icterus, oropharynx clear PULM: airways patent, non-labored breathing, normal effort. CV: normal rate and regular rhythm ABD: soft, non-tender, non-distended MSK: no joint swelling, normal range of motion SKIN: warm and dry, capillary refill <2 seconds PSYCHE: normal mood and affect Neuro Exam GCS (EMV): 465 Awake, alert, oriented Speech: clear, intact. Word finding difficulties Follows commands appropriately PERRL, EOMI KRAUSE symmetrically, no drift Imaging 02/17/25 MR HEAD W AND WO IV CONTRAST IMPRESSION: Heterogeneously enhancing mass in the left insula and temporal lobe. The appearance is most consistent with primary brain neoplasm such as glioblastoma or other high-grade glioma. Metastasis is felt to be less likely. 02/16/25 CT Chest/Abdomen/Pelvis w IV contrast IMPRESSION: 1. No acute findings in the chest, abdomen and pelvis. 2. No evidence of metastatic disease or underlying neoplasm in the chest, abdomen and pelvis. 02/16/[address]: IMPRESSION: Mass noted in the left insula and posterior temporal region. This is most concerning for primary brain neoplasm and can be further evaluated with MRI. 02/16/25 Neck CTA: IMPRESSION: 1.Possible fibromuscular dysplasia in the cervical internal carotid arteries bilaterally. 2.Moderate stenosis of the cervical right vertebral artery. 02/16/25 Head CTA: IMPRESSION: No hemodynamically significant intracranial arterial stenosis or aneurysm is present. Imaging was reviewed on am rounds with team and agree with above Assessment and Plan Wali Murrell is a 64 y.o. female with pmhx of HTN, previous stroke on ASA/Plavix presenting with word finding difficulty and newly discovered left insular mass. Length of stay: 4 d Attending: Ned Menendez MD Assessment & Plan Brain tumor (benign) (CMS/HCC) Brain mass Sensory deficit, right Expressive aphasia - MRI head w/w/o - IV dex 4mg q6hrs - PPI while on steroids - Keppra started outpatient by Neurology but discontinued due to significant drowsiness and no changes in RLE symptoms - functional MRI for speech and motor function - fiducial MRI - C/A/P CT scans negative for metastatic work-up - Hold all anticoagulation and antiplatelet medication - daily bowel regimen - Incentive spirometer q1h while awake - resume home medications as able - Avoid sedating medications as able - plan for operative intervention Sunday, 02/23 History of CVA (cerebrovascular accident) - holding ASA and plavix for surgical intervention - continue statin Hypertension - resume home medications as appropriate - SPB < 140 - prn labetalol and hydralazine - continue to monitor GERD (gastroesophageal reflux disease) - takes omeprazole at home - pantoprazole while inpatient Depression - resume sertraline Hyponatremia - Na 132 on admission. 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 - I ordered serum osms, Urine Na/Osm/creatinine - Agree with ongoing fluid restriction by primary team as is likely SIADH - Currently at her baseline and given that has been present for at least 6 months, less likely to need correction before OR Electrolyte disturbance - Hypophosphatemia - Hypomagnesemia - will replace per sliding scale protocol - continue to monitor - follow up labs Hyperglycemia - likely steroid related - A1c pending - Insulin SQ sliding scale - Continue to monitor - consider Diabetic diet as needed Obesity, Class III, BMI 40-49.9 (morbid obesity) - Body mass index is 42.02 kg/m??. - Complicates all aspects of care and recovery F: saline lock IV / PO intake E: Monitor and replace prn N: Regular diet + 1L fluid restriction PPX: SCDs, SQH Medically Ready for Discharge:Anticipated in 5+ Days Thank you for allowing us to participate in the care of this patient. Please call with any questions or concerns. Anaya Nipper, DNP, AUTOCUTTER Advanced Practice Provider Department of Neurosurgery [facility] * Progress Notes - Saige Alvarez - 02/20/2025 7:46 AM EDT Images from the original note were not included. Hospital Medicine Progress Note Subjective Length of stay: 4 days Brief Patient Summary: Ms. Wali Murrell is a pleasant 64 yr old female with PMHx including HTN and possible CVA (Sep 2024) who presented with word finding difficulty and was subsequently diagnosed with a newly discovered insular brain mass. Brief labs/vitals/imaging in last ~24 hours Vitals over last 24 hours have been reviewed. BP range of (109-168)/(68-89) overnight with one doseof 20 mg hydralazine 6/ evening. Subjective Ms. Murrell was evaluated this morning and was lying comfortable in bed upon examination. Her daughter, Sarahi, was also at bedside. Patient reports that she slept well and believes this is likely due to the Keppra. She is tolerating PO intake well and is maintaining fluid restriction per primary team. She had two bowel movements yesterday evening. She denies headache, vision changes, N/V, dizziness, chest pain, or SOB. She does note a feeling of fullness of the R frontal and parietal parts of the head. She struggles with some word finding during the exam that becomes more frequent as the conversation continues. Review of Systems Review of Systems Respiratory: Negative for shortness of breath. Cardiovascular: Negative for chest pain. Gastrointestinal: Negative for nausea and rectal pain. Neurological: Positive for speech difficulty. Negative for dizziness, weakness and headaches. Word finding difficulty Objective Objective Last Recorded Vitals Blood pressure 125/71, pulse 74, temperature 36.7 ??C (98 ??F), resp. rate 18, height 1.676 m (5' 6 ), weight 118 kg (260 lb 5.8 oz), SpO2 94%. Physical Exam Constitutional: General: She is not in acute distress. Appearance: She is obese. She is not ill-appearing. HENT: Head: Normocephalic and atraumatic. Eyes: Extraocular Movements: Extraocular movements intact. Conjunctiva/sclera: Conjunctivae normal. Cardiovascular: Rate and Rhythm: Normal rate and regular rhythm. Pulses: Normal pulses. Heart sounds: Normal heart sounds. No murmur heard. Pulmonary: Effort: Pulmonary effort is normal. Breath sounds: Normal breath sounds. Abdominal: Palpations: Abdomen is soft. Tenderness: There is no abdominal tenderness. Neurological: Mental Status: She is alert and oriented to person, place, and time. Comments: Anomic aphasia that becomes more frequent as exam progressed Psychiatric: Mood and Affect: Mood normal. Thought Content: Thought content normal. Relevant Results Labs in last 18 hours CBC WBC ?? Hb ?? Plt ?? Hct ?? ANC ?? INR ??, PTT ??, Anti-Xa ?? BMP Na 132 (L) Cl ?? BUN ?? Glu ?? K ?? Co2 ?? Cr ?? Ca ?? iCa ?? Mg ??, Phos ?? Lactate ?? LFT AST ?? AlkPhos ?? T Prot ?? ALK ?? Bili ?? Alb ?? D.Bili ?? IMAGING (past 24h): None Assessment & Plan Wali Murrell is a 64 y.o. female presenting with PMH HTN who presented with word finding difficulty and newly discovered left insular brain mass. Chronic Hyponatremia - Since mid-September 2024 sodium has ranged from 127-134 - Hypotonic hyponatremia based on serum osms, urine Na/Osm/Cr - Potentially SIADH from brain mass or Zoloft usage - Continue ongoing fluid restriction by primary team as sodium seems to be improving - Currently at her baseline and given that has been present for at least 6 months, less likely to need correction before OR - Would continue to hold diuretics while pending OR to avoid further sodium wasting Perioperative Risk Stratification - RCRI: 1 (h/o CVA in Sep 2024) - METS: METS >4 - EKG personally reviewed: NSR with PVCs, QTc 423 - Active cardiac condition such as chest pain, accelerating chest pain, dyspnea on exertion, new oruncontrolled arrhythmia are: Not Present - Date of last dose of antiplatelet/anticoagulation: Last dose of aspirin prior to admission on 02/17 - Decompensated organ condition (including acute CHF, acute COPD, acute decompensated cirrhosis) are: Not Present - Patient has NICOLE/home oxygen requirement: None - Echo is: Not required RECOMMENDTIONS: - Medical Optimization: Patient is medically optimized and can proceed to OR HTN - Home BP meds include lisinopril, nebivolol, and hydrochlorothiazide; lisinopril and nebivolol restarted on 02/19 per primary team - 24 hour BP range (109-168)/(68-89) - One use of PRN hydralazine overnight - Continue to hold hydrochlorothiazide to avoid worsening hyponatremia - Recommend BP monitoring today and consider nifedipine 30mg daily as adjunct for high BP requiringfrequent dosing of IV hydralazine - On day of OR would hold lisinopril and hydrochlorothiazide. Continue nebivolol on day of OR Brain mass with associated cerebral edema with brain compression - Keppra started during this admission; patient tolerating well - Holding anti-platelet agents pending OR Type 2 DM - Continue POCT BG monitoring - SSI Depression - Resume Zoloft 50 mg daily GERD - Resume Protonix 40 mg daily Recommendations: - Continue ongoing fluid restriction given patient's Na baseline for the last six months and improvement seen on today's chemistries - Continue to hold hydrochlorothiazide to avoid worsening hyponatremia - Recommend BP monitoring today and consider nifedipine 30mg daily as adjunct for high BP if requiring multiple correction doses of IV hydralazine to avoid reflex hypertension - Continue holding ASA, Plavix pending OR on 02/23 Fluids: PO DVT Ppx: SQH and SCDs Diet: Regular diet, fluid restriction: 1000 mL Code status: Full Code Future Appointments Date Time Provider Department Center 03/02/2025 9:00 AM Bridget Lion PA [facility] Electronically Signed by: Saige Alvarez - 02/20/2025 - 7:46 AM Cosigned by Anaya Hdez MD at 02/20/2025 6:10 PM EDT Associated attestation - Anaya Hdez MD - 02/20/2025 6:10 PM EDT I saw and evaluated the patient with the medical/APPLICATION CONSULTANT/PA student. I discussed the case with the medical/APPLICATION CONSULTANT/PA student and agree with the findings and plan as documented. I personally performed the Examand Medical Decision Making. Doing well today. Sodium improved with fluid restrictions. Will continue to follow. Anaya Hdez MD * Assessment & Plan Note - Anaya Felton APRN - 02/20/2025 7:38 AM EDT Associated Problem(s): Brain tumor (benign) (CMS/HCC) - MRI head w/w/o - IV dex 4mg q6hrs - PPI while on steroids - Keppra started outpatient by Neurology but discontinued due to significant drowsiness and no changes in RLE symptoms - functional MRI for speech and motor function - fiducial MRI - C/A/P CT scans negative for metastatic work-up - Hold all anticoagulation and antiplatelet medication - daily bowel regimen - Incentive spirometer q1h while awake - resume home medications as able - Avoid sedating medications as able - plan for operative intervention 02/23 * Assessment & Plan Note - Anaya Felton APRN - 02/20/2025 7:38 AM EDT Associated Problem(s): Brain mass - MRI head w/w/o - IV dex 4mg q6hrs - PPI while on steroids - Keppra started outpatient by Neurology but discontinued due to significant drowsiness and no changes in RLE symptoms - functional MRI for speech and motor function - fiducial MRI - C/A/P CT scans negative for metastatic work-up - Hold all anticoagulation and antiplatelet medication - daily bowel regimen - Incentive spirometer q1h while awake - resume home medications as able - Avoid sedating medications as able - plan for operative intervention 02/23 * Assessment & Plan Note - Anaya Felton APRN - 02/20/2025 7:38 AM EDT Associated Problem(s): Sensory deficit, right - MRI head w/w/o - IV dex 4mg q6hrs - PPI while on steroids - Keppra started outpatient by Neurology but discontinued due to significant drowsiness and no changes in RLE symptoms - functional MRI for speech and motor function - fiducial MRI - C/A/P CT scans negative for metastatic work-up - Hold all anticoagulation and antiplatelet medication - daily bowel regimen - Incentive spirometer q1h while awake - resume home medications as able - Avoid sedating medications as able - plan for operative intervention 02/23 * Assessment & Plan Note - Anaya Felton APRN - 02/20/2025 7:38 AM EDT Associated Problem(s): Expressive aphasia - MRI head w/w/o - IV dex 4mg q6hrs - PPI while on steroids - Keppra started outpatient by Neurology but discontinued due to significant drowsiness and no changes in RLE symptoms - functional MRI for speech and motor function - fiducial MRI - C/A/P CT scans negative for metastatic work-up - Hold all anticoagulation and antiplatelet medication - daily bowel regimen - Incentive spirometer q1h while awake - resume home medications as able - Avoid sedating medications as able - plan for operative intervention 02/23 * Assessment & Plan Note - Anaya Felton APRN - 02/20/2025 7:38 AM EDT Associated Problem(s): History of CVA (cerebrovascular accident) - holding ASA and plavix for surgical intervention - continue statin * Assessment & Plan Note - Anaya Felton APRN - 02/20/2025 7:38 AM EDT Associated Problem(s): Hypertension - resume home medications as appropriate - SPB < 140 - prn labetalol and hydralazine - continue to monitor * Assessment & Plan Note - Anaya Felton APRN - 02/20/2025 7:38 AM EDT Associated Problem(s): GERD (gastroesophageal reflux disease) - takes omeprazole at home - pantoprazole while inpatient * Assessment & Plan Note - Anaya Felton APRN - 02/20/2025 7:38 AM EDT Associated Problem(s): Depression - resume sertraline * Assessment & Plan Note - Anaya Felton APRN - 02/20/2025 7:38 AM EDT Associated Problem(s): Hyponatremia - Na 132 on admission. 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 - I ordered serum osms, Urine Na/Osm/creatinine - Agree with ongoing fluid restriction by primary team as is likely SIADH - Currently at her baseline and given that has been present for at least 6 months, less likely to need correction before OR * Assessment & Plan Note - Anaya Felton APRN - 02/20/2025 7:38 AM EDT Associated Problem(s): Electrolyte disturbance - Hypophosphatemia - Hypomagnesemia - will replace per sliding scale protocol - continue to monitor - follow up labs * Assessment & Plan Note - Anaya Felton APRN - 02/20/2025 7:38 AM EDT Associated Problem(s): Hyperglycemia - likely steroid related - A1c pending - Insulin SQ sliding scale - Continue to monitor - consider Diabetic diet as needed * Care Plan - Gian Taylor RN - 02/20/2025 5:03 AM EDT Problem: Adult Inpatient Plan of Care Goal: Plan of Care Review Outcome: Ongoing, Progressing Flowsheets (Taken 02/20/2025 0503) Progress: improving Plan of Care Reviewed With: patient child * Assessment & Plan Note - Anaya Felton APRN - 02/19/2025 12:55 PM EDT Associated Problem(s): Obesity, Class III, BMI 40-49.9 (morbid obesity) - Body mass index is 41.97 kg/m??. - Complicates all aspects of care and recovery * Assessment & Plan Note - Anaya Felton APRN - 02/19/2025 12:52 PM EDT Associated Problem(s): Hyponatremia - Na 132 on admission. As low as 125 - holding hydrochlorothiazide - continue to monitor - started fluid restriction - Hospital Medicine consulted, recommendations appreciated * Assessment & Plan Note - Anaya Felton APRN - 02/19/2025 12:52 PM EDT Associated Problem(s): Hyperglycemia - likely steroid related - A1c pending - Insulin SQ sliding scale - Continue to monitor - consider Diabetic diet as needed * Progress Notes - Nabeel Beckett RN - 02/19/2025 11:28 AM EDT Case Management Adult Initial Progress Note Wali Murrell 64 y.o. female CSN: [id number] Admission: 02/16/2025 3:08 PM Primary Problem: Brain tumor (benign) (CMS/HCC) Senior Software Architect reviewed chart and spoke with patient and daughter at bedside to complete this InitialCase Management Assessment. PCP: Caroline Shultz APRN Emergency Contact: No emergency contact information on file. Insurance: Primary Visit Coverage Payer Plan Sponsor Code Group Number Group Name MEDICARE MEDICARE PART A ONLY Primary Visit Coverage Subscriber Subscriber ID Subscriber Name Subscriber SSN Subscriber Address [id number] WALI MURRELL [id number] [place] [address] Secondary Visit Coverage Payer Plan Sponsor Code Group Number Group Name [facility] [id number] Secondary Visit Coverage Subscriber Subscriber ID Subscriber Name Subscriber SSN Subscriber Address [id number] WALI MURRELL [id number] [place] [address] Patient information: Primary Caregiver: Self Support System: Immediate family Daily Living Activities: Functional Status: Independent Living Arrangements: Alone Type of Residence: Private residence [address] [place] [address] Current DME: Equipment Currently Used at Home: none Income Information: Income Source: Employed Income/Expense Information: Income meets expenses Current Resources Utilized: None Housing Circumstances-Z Codes: Housing Circumstances (select all that apply): None Applicable Patient Referred to: Anticipated Discharge Date: TBD Patient's Discharge Goal: Home Assistance Available at Discharge: Daughter Discharge Transport: Daughter Follow Up Transport: Daughter Home Health / Home Infusion / Outpatient Dialysis Services: None Living Will/Advance Directive/Power of Physician/Internist /Guardian: Have you reviewed your Advance Directive and is it valid for this stay?: Yes Advance Directive: Patient would not like information Information Provided on Healthcare Directives: Yes Pre-existing DNR/DNI Order: No Patient Requests Assistance: Yes, referral made to skilled nursing case manager Additional Comments: Provided introduction and information on CM role. Confirmed demographics in medical record are accurate. Pt previously independent with ADLs and no DME, home O2, dialysis, HH or rehab reported. No current recs. Pt's daughter can transport at time of dc. No CM needs expressed at this time. Will continue to follow and coordinate dc plan as necessary. CMwill make appropriate referrals if needed and continue to offer support to patient/family Nabeel Beckett RN * Consults - Anaya Hdez MD - 02/19/2025 10:53 AM EDTAssociated Order(s): Inpatient consult to Hospitalist Helio Inpatient consult to Michelle Cadet Consult performed by: Anaya Hdez MD Consult ordered by: Anaya Felton APRN Reason for consult: Hyponatremia, perioperative optimization Reason For Consult Hyponatremia, perioperative optimization Requesting Service: Neurosurgery Requested Date/Time: 02/19/2025 History Of Present Illness Wali Murrell is a 64 y.o. female presenting with PMH HTN who presented with word finding difficulty and newly discovered left insular brain mass. Today she is feeling well but still having word finding difficulties, Additional history obtained from her daughter (Sarahi) at bedside who noted that Keppra makes her feel poorly and understood why she needed to take it but is not looking forward to it. She otherwise feels well. She has controlled HTN and takes 3 BP meds at home. She has been on ASA since her stroke, but she feels that it might not have been a stroke but rather the effects of the tumor but that is unclear. She takes Zoloft and omeprazole. Currently she is asymptomatic other than her word finding difficulty. She denies any active cardiac conditions or confusion. Medical/Surgical/Social/Family History PMH: - HTN - Anxiety/Depression - GERD - Newly diagnosed brain mass - H/o CVA PSH: 3 prior breast surgeries Social History: - Denies smoking or illicits. Occasional glass of wine Family history: - Mother with HTN - Father with HTN and CVA Allergies Codeine -- causes nausea Medications Current Medications[1] Home Meds: - ASA - Plavix - Bystolic - Lisinopril - hydrochlorothiazide - Zoloft - Omeprazole Review of Systems Review of Systems Constitutional: Negative for chills and fever. Respiratory: Negative for cough, chest tightness and shortness of breath. Cardiovascular: Negative for chest pain and leg swelling. Gastrointestinal: Negative for abdominal distention, abdominal pain, constipation, diarrhea, nauseaand vomiting. Genitourinary: Negative for difficulty urinating and dysuria. Neurological: Positive for light-headedness (Occasional when lying to sitting). Negative for numbness and headaches. Physical Exam Physical Exam Constitutional: General: She is not in acute distress. Appearance: Normal appearance. She is not ill-appearing or toxic-appearing. HENT: Mouth/Throat: Mouth: Mucous membranes are moist. Eyes: General: No scleral icterus. Cardiovascular: Rate and Rhythm: Normal rate and regular rhythm. Pulses: Normal pulses. Heart sounds: Normal heart sounds. No murmur heard. Pulmonary: Effort: No respiratory distress. Breath sounds: Normal breath sounds. No wheezing. Abdominal: General: Abdomen is flat. There is no distension. Palpations: Abdomen is soft. Tenderness: There is no abdominal tenderness. There is no guarding. Musculoskeletal: General: Normal range of motion. Skin: General: Skin is warm and dry. Capillary Refill: Capillary refill takes less than 2 seconds. Neurological: General: No focal deficit present. Mental Status: She is alert and oriented to person, place, and time. Comments: Word finding difficulties during interview Psychiatric: Mood and Affect: Mood normal. Behavior: Behavior normal. Labs in last 18 hours BMP Na 129 (L); 129 (L) Cl 96 (L) BUN 14 Glu 153 (H) K 4.1 Co2 22 Cr 0.56 (L) Ca 9.6 iCa ?? Mg 2.0, Phos 3.2 Labs reviewed significant for stable hyponatremia (since September 2024 has been 127-134) I personally reviewed prior records and are summarized below: - Saw neurology on 02/16 for follow up after CVA. Noted that patient had stopped her Keppra due to side effects. However, given new word finding difficulties, she was sent to the ED. - Admitted from 09/22 to 09/25 for right sided sensory deficits with mild restricted diffusion thought to be a subacute ischemia. LP done and started on ASA, plavix, statin, keppra - Echo from 09/24/2024 showed LVEF 55-60% with normal diastolic function, LA enlarged Last Recorded Vitals Blood pressure (!) 168/89, pulse 75, temperature 36.4 ??C (97.5 ??F), resp. rate 16, height 1.676 m(5' 6 ), weight 118 kg (260 lb), SpO2 96%. Assessment and Plan: Wali Murrell is a 64 y.o. female presenting with PMH HTN who presented with word finding difficulty and newly discovered left insular brain mass. 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 - I ordered serum osms, Urine Na/Osm/creatinine - Agree with ongoing fluid restriction by primary team as is likely SIADH - Currently at her baseline and given that has been present for at least 6 months, less likely to need correction before OR Perioperative Risk Stratification - RCRI: 1 (h/o CVA) - METS: METS >4 - EKG personally reviewed: NSR with PVCs, QTc 423 - Active cardiac condition such as chest pain, accelerating chest pain, dyspnea on exertion, new oruncontrolled arrhythmia are: Not Present - Date of last dose of antiplatelet/anticoagulation: Last dose of aspirin prior to admission on 02/17 - Decompensated organ condition (including acute CHF, acute COPD, acute decompensated cirrhosis) are: Not Present - Patient has NICOLE/home oxygen requirement: None - Echo is: Not required RECOMMENDTIONS: - Medical Optimization: Patient is medically optimized and can proceed to OR HTN - BP controlled at home on 3 BP meds - Lisinopril and Bystolic restarted today, and agree with that plan - Would rather use PO meds than correct with IV - NS holding hydrochlorothiazide. If needed, can restart this as well - BP elevated yesterday without home meds. Agree with restarting prior to OR - However, on day of OR would hold lisinopril and hydrochlorothiazide. Continue Bystolic on day of OR Brain mass with associated cerebral edema with brain compression - Per my discussion with primary team today, plan for OR on Sunday, 02/23 (Billing: discussion with other provide and high risk decision to take to OR) - Started keppra inpatient - Holding anti-platelet agents pending OR - Presence of cerebral edema and brain compression represent a severe threat to bodily function (Billing: high complexity for problems) Chronic Medical Conditions: - Anxiety/depression - Continue Zoloft - GERD - Continue omeprazole Will follow up work up for hyponatremia sent today. No further perioperative risk assessment/optimization needed at this time. Medicine will continue to follow. Anaya Hdez MD [1] Current Facility-Administered Medications Medication Dose Route Frequency Provider Last Rate Last Admin dexamethasone (Decadron) injection 4 mg 4 mg Intravenous q6h Anaya Felton APRN 4 mg at heparin (porcine) injection 7,500 Units 7,500 Units Subcutaneous q8h Anaya Felton APRN 7,500 Units at 02/19/25812 hydrALAZINE (Apresoline) injection 10 mg 10 mg Intravenous q1h PRN Katharine Oreilly MD 10 mg at 02/18/252117 Or hydrALAZINE (Apresoline) injection 20 mg 20 mg Intravenous q1h PRN Katharine Oreilly MD 20 mg at 02/18/252219 labetalol (Normodyne,Trandate) injection 10 mg 10 mg Intravenous q1h PRN Katharine Oreilly MD Or labetalol (Normodyne,Trandate) injection 20 mg 20 mg Intravenous q1h PRN Katharine Oreilly MD levETIRAcetam (Keppra) tablet 1,000 mg 1,000 mg Oral BID Anaya Felton APRN 1,000 mg at lisinopril tablet 20 mg 20 mg Oral BID Anaya Felton APRN 20 mg at 02/19/25811 nebivolol (Bystolic) tablet 5 mg 5 mg Oral Daily Ranjana Yu MD 5 mg at 02/19/25811 ondansetron ODT (Zofran-ODT) disintegrating tablet 4 mg 4 mg Oral q6h PRN Katharine Oreilly MD Or ondansetron (Zofran) injection 4 mg 4 mg Intravenous q6h PRN Katharine Oreilly MD pantoprazole (Protonix) EC tablet 40 mg 40 mg Oral Daily Rommeltito, Michael A 40 mg at 02/19/25811 polyethylene glycol (Miralax) packet 17 g 17 g Oral BID Anaya Felton APRN senna-docusate (Maggy-Colace) 8.6-50 MG per tablet 2 tablet 2 tablet Oral BID Anaya Felton APRN 2 tablet at 02/19/25811 sertraline (Zoloft) tablet 50 mg 50 mg Oral Daily Rommeltito Michael A 50 mg at 02/19/25811 sodium chloride 0.9 % flush 10 mL 10 mL Intravenous q12h Katharine Oreilly MD 10 mL at 02/18/252021 And sodium chloride 0.9 % flush 10 mL 10 mL Intravenous PRN Katharine Oreilly MD * Query Clarification Note - Anaya Felton APRN - 02/19/2025 9:10 AM EDT Please consider a diagnosis that correlates with findings below: Please consider a diagnosis that correlates with findings below: [x]Cerebral edema with brain compression []Cerebral edema []Brain compression []Other explanation, please specify []Clinically unable to determine This documentation will become part of the patient's medical record. * Assessment & Plan Note - Anaya Felton APRN - 02/19/2025 7:57 AM EDT Associated Problem(s): Sensory deficit, right - MRI head w/w/o - IV dex 4mg q6hrs - PPI while on steroids - Keppra started outpatient by Neurology but discontinued due to significant drowsiness and no changes in RLE symptoms - functional MRI for speech and motor function - fiducial MRI - C/A/P CT scans negative for metastatic work-up - Hold all anticoagulation and antiplatelet medication - daily bowel regimen - Incentive spirometer q1h while awake - resume home medications as able - Avoid sedating medications as able - plan for operative intervention 02/23 * Assessment & Plan Note - Anaya Felton APRN - 02/19/2025 7:57 AM EDT Associated Problem(s): Expressive aphasia - MRI head w/w/o - IV dex 4mg q6hrs - PPI while on steroids - Keppra started outpatient by Neurology but discontinued due to significant drowsiness and no changes in RLE symptoms - functional MRI for speech and motor function - fiducial MRI - C/A/P CT scans negative for metastatic work-up - Hold all anticoagulation and antiplatelet medication - daily bowel regimen - Incentive spirometer q1h while awake - resume home medications as able - Avoid sedating medications as able - plan for operative intervention 02/23 * Assessment & Plan Note - Anaya Felton APRN - 02/19/2025 7:57 AM EDT Associated Problem(s): History of CVA (cerebrovascular accident) - holding ASA and plavix for surgical intervention - continue statin * Assessment & Plan Note - Anaya Felton APRN - 02/19/2025 7:57 AM EDT Associated Problem(s): Hypertension - resume home medications as appropriate - SPB < 140 - prn labetalol and hydralazine - continue to monitor * Assessment & Plan Note - Anaya Felton APRN - 02/19/2025 7:57 AM EDT Associated Problem(s): GERD (gastroesophageal reflux disease) - takes omeprazole at home - pantoprazole while inpatient * Assessment & Plan Note - Anaya Felton APRN - 02/19/2025 7:57 AM EDT Associated Problem(s): Depression - resume sertraline * Assessment & Plan Note - Anaya Felton APRN - 02/19/2025 7:57 AM EDT Associated Problem(s): Electrolyte disturbance - Hypophosphatemia - Hypomagnesemia - will replace per sliding scale protocol - continue to monitor - follow up labs * Assessment & Plan Note - Anaya Felton APRN - 02/19/2025 7:57 AM EDT Associated Problem(s): Brain tumor (benign) (CMS/HCC) - MRI head w/w/o - IV dex 4mg q6hrs - PPI while on steroids - Keppra started outpatient by Neurology but discontinued due to significant drowsiness and no changes in RLE symptoms - functional MRI for speech and motor function - fiducial MRI - C/A/P CT scans negative for metastatic work-up - Hold all anticoagulation and antiplatelet medication - daily bowel regimen - Incentive spirometer q1h while awake - resume home medications as able - Avoid sedating medications as able - plan for operative intervention Sunday, 02/23 * Assessment & Plan Note - Anaya Felton APRN - 02/19/2025 7:57 AM EDT Associated Problem(s): Brain mass - MRI head w/w/o - IV dex 4mg q6hrs - PPI while on steroids - Keppra started outpatient by Neurology but discontinued due to significant drowsiness and no changes in RLE symptoms - functional MRI for speech and motor function - fiducial MRI - C/A/P CT scans negative for metastatic work-up - Hold all anticoagulation and antiplatelet medication - daily bowel regimen - Incentive spirometer q1h while awake - resume home medications as able - Avoid sedating medications as able - plan for operative intervention 02/23 * Progress Notes - Anaya Felton APRN - 02/19/2025 7:56 AM EDT Neurosurgery Progress Note Today's Date: 02/19/2025 Hospital course: Wali Murrell is a 64 y.o. female with pmhx of HTN, previous stroke on ASA/Plavix presenting with word finding difficulty and newly discovered left insular mass. Subjective Last 24 hours: No acute events overnight. Patient noted to have hyponatremia not improved with fluid restriction. Holding hydrochlorothiazide. Hospital medicine consulted for recommendations. Takes Zoloft. Urine studies pending. Discussed hyperglycemia is likely related to steroid use. A1c pending. Sliding scale insulin added. Daughter is present at bedside. All questions answered Review of Systems HENT: Negative for trouble swallowing. Eyes: Negative for visual disturbance. Respiratory: Negative for shortness of breath. Cardiovascular: Negative for chest pain. Gastrointestinal: Negative for constipation and nausea. Genitourinary: Negative for difficulty urinating. Neurological: Positive for speech difficulty. Negative for dizziness, weakness, numbness and headaches. Psychiatric/Behavioral: The patient is nervous/anxious. Objective Medications Current Facility-Administered Medications Medication Dose Route Frequency Provider Last Rate Last Admin dexamethasone (Decadron) injection 4 mg 4 mg Intravenous q6h Anaya Felton APRN 4 mg at 812 glucose (Glutose) 40 % oral gel 15-30 grams of glucose 15-30 grams of glucose Sublingual q15 min PRN Anaya Felton APRN Or dextrose 50 % solution 12.5-25 g 12.5-25 g Intravenous q15 min PRN Anaya Felton APRN Or glucagon (human recombinant) injection 1 mg 1 mg Intramuscular q15 min PRN Nipper, Anaya M, AUTOCUTTER heparin (porcine) injection 7,500 Units 7,500 Units Subcutaneous q8h Anaya Felton APRN 7,500 Units at 02/19/25 0813 hydrALAZINE (Apresoline) injection 10 mg 10 mg Intravenous q1h PRN Katharine Oreilly MD 10 mg at 02/18/25 2118 Or hydrALAZINE (Apresoline) injection 20 mg 20 mg Intravenous q1h PRN Katharine Oreilly MD 20 mg at 02/18/25 2220 insulin lispro (Admelog) 100 units/mL injection - Correction - Standard Dose 0-5 Units SubcutaneousTID with meals Anaya Felton APRN insulin lispro (Admelog) injection - Correction - Nighttime Dose 0-3 Units Subcutaneous Twice at night Anaya Felton APRN labetalol (Normodyne,Trandate) injection 10 mg 10 mg Intravenous q1h PRN Katharine Oreilly MD Or labetalol (Normodyne,Trandate) injection 20 mg 20 mg Intravenous q1h PRN Katharine Oreilly MD levETIRAcetam (Keppra) tablet 1,000 mg 1,000 mg Oral BID Anaya Felton APRN 1,000 mg at 812 lisinopril tablet 20 mg 20 mg Oral BID Anaya Felton APRN 20 mg at 02/19/25 08 nebivolol (Bystolic) tablet 5 mg 5 mg Oral Daily Ranjana Yu MD 5 mg at 02/19/25 08 ondansetron ODT (Zofran-ODT) disintegrating tablet 4 mg 4 mg Oral q6h PRN Katharine Oreilly MD Or ondansetron (Zofran) injection 4 mg 4 mg Intravenous q6h PRN Katharine Oreilly MD pantoprazole (Protonix) EC tablet 40 mg 40 mg Oral Daily Michael Jain A 40 mg at 02/19/25 08 polyethylene glycol (Miralax) packet 17 g 17 g Oral BID Anaya Felton APRN senna-docusate (Maggy-Colace) 8.6-50 MG per tablet 2 tablet 2 tablet Oral BID Anaya FeltonJEFFREY 2 tablet at 02/19/25 08 sertraline (Zoloft) tablet 50 mg 50 mg Oral Daily MarkestherMichael francis Sowmya 50 mg at 02/19/25 0812 sodium chloride 0.9 % flush 10 mL 10 mL Intravenous q12h Katharine Oreilly MD 10 mL at 02/18/252021 And sodium chloride 0.9 % flush 10 mL 10 mL Intravenous PRN Katharine Oreilly MD Last Recorded Vitals Visit Vitals BP 132/76 Pulse 65 Temp 36.3 ??C (97.4 ??F) Resp 18 Ht 1.676 m (5' 6 ) Wt 118 kg (260 lb) SpO2 96% BMI 41.97 kg/m?? OB Status Postmenopausal Smoking Status Never BSA 2.34 m?? Labs Labs in last 18 hours CBC WBC ?? Hb ?? Plt ?? Hct ?? BMP Na 129 (L); 129 (L) Cl 96 (L) BUN 14 Glu 153 (H) K 4.1 Co2 22 Cr 0.56 (L) Outputs Intake/Output Summary (Last 24 hours) at 02/19/2025 1253 Last data filed at 02/19/2025 0800 Gross per 24 hour Intake 100 ml Output -- Net 100 ml Output by Drain (mL) 02/17/25 0700 - 02/17/25 1859 02/17/25 1900 - 02/18/25 0659 02/18/25 07 - 02/18/25 1859 02/18/25 1900 - 02/19/25 0659 02/19/25 0700 - 02/19/25 1253 Patient has no LDAs of requested type attached. Physical Exam GEN: well developed, no acute distress. Obese habitus HEENT: normocephalic, atraumatic, no scleral icterus, oropharynx clear PULM: airways patent, non-labored breathing, normal effort. CV: normal rate and regular rhythm ABD: soft, non-tender, non-distended MSK: no joint swelling, normal range of motion SKIN: warm and dry, capillary refill <2 seconds PSYCHE: normal mood and affect Neuro Exam GCS (EMV): 465 Awake, alert, oriented Speech: clear, intact. Word finding difficulties Follows commands appropriately PERRL, EOMI KRAUSE symmetrically, no drift Imaging 02/17/25 MR HEAD W AND WO IV CONTRAST IMPRESSION: Heterogeneously enhancing mass in the left insula and temporal lobe. The appearance is most consistent with primary brain neoplasm such as glioblastoma or other high-grade glioma. Metastasis is felt to be less likely. 02/16/25 CT Chest/Abdomen/Pelvis w IV contrast IMPRESSION: 1. No acute findings in the chest, abdomen and pelvis. 2. No evidence of metastatic disease or underlying neoplasm in the chest, abdomen and pelvis. 02/16/[address]: IMPRESSION: Mass noted in the left insula and posterior temporal region. This is most concerning for primary brain neoplasm and can be further evaluated with MRI. 02/16/25 Neck CTA: IMPRESSION: 1.Possible fibromuscular dysplasia in the cervical internal carotid arteries bilaterally. 2.Moderate stenosis of the cervical right vertebral artery. 02/16/25 Head CTA: IMPRESSION: No hemodynamically significant intracranial arterial stenosis or aneurysm is present. Imaging was reviewed on am rounds with team and agree with above Assessment and Plan Wali Murrell is a 64 y.o. female with pmhx of HTN, previous stroke on ASA/Plavix presenting with word finding difficulty and newly discovered left insular mass. Length of stay: 3 d Attending: Ned Menendez MD Assessment & Plan Brain tumor (benign) (CMS/HCC) Brain mass Sensory deficit, right Expressive aphasia - MRI head w/w/o - IV dex 4mg q6hrs - PPI while on steroids - Keppra started outpatient by Neurology but discontinued due to significant drowsiness and no changes in RLE symptoms - functional MRI for speech and motor function - fiducial MRI - C/A/P CT scans negative for metastatic work-up - Hold all anticoagulation and antiplatelet medication - daily bowel regimen - Incentive spirometer q1h while awake - resume home medications as able - Avoid sedating medications as able - plan for operative intervention Sunday, 02/23 History of CVA (cerebrovascular accident) - holding ASA and plavix for surgical intervention - continue statin Hypertension - resume home medications as appropriate - SPB < 140 - prn labetalol and hydralazine - continue to monitor GERD (gastroesophageal reflux disease) - takes omeprazole at home - pantoprazole while inpatient Depression - resume sertraline Hyponatremia - Na 132 on admission. As low as 125 - holding hydrochlorothiazide - continue to monitor - started fluid restriction - Hospital Medicine consulted, recommendations appreciated Electrolyte disturbance - Hypophosphatemia - Hypomagnesemia - will replace per sliding scale protocol - continue to monitor - follow up labs Hyperglycemia - likely steroid related - A1c pending - Insulin SQ sliding scale - Continue to monitor - consider Diabetic diet as needed Obesity, Class III, BMI 40-49.9 (morbid obesity) - Body mass index is 41.97 kg/m??. - Complicates all aspects of care and recovery F: saline lock IV / PO intake E: Monitor and replace prn N: Regular diet + 1L fluid restriction PPX: SCDs, SQH Medically Ready for Discharge:Anticipated in 5+ Days Thank you for allowing us to participate in the care of this patient. Please call with any questions or concerns. Anaya Felton DNP, APRN Advanced Practice Provider Department of Neurosurgery [facility] * Assessment & Plan Note - Anaya Felton APRN - 02/18/2025 12:56 PM EDT Associated Problem(s): Obesity, Class III, BMI 40-49.9 (morbid obesity) - Body mass index is 41.97 kg/m??. - Complicates all aspects of care and recovery * Assessment & Plan Note - Anaya Felton APRN - 02/18/2025 12:13 PM EDT Associated Problem(s): Brain tumor (benign) (CMS/HCC) - MRI head w/w/o - IV dex 4mg q6hrs - PPI while on steroids - Keppra started outpatient by Neurology but discontinued due to significant drowsiness and no changes in RLE symptoms - functional MRI for speech and motor function - fiducial MRI pending - C/A/P CT scans negative for metastatic work-up - Hold all anticoagulation and antiplatelet medication - daily bowel regimen - Incentive spirometer q1h while awake - resume home medications as able - Avoid sedating medications as able - plan for operative intervention 02/23 * Assessment & Plan Note - Anaya Felton APRN - 02/18/2025 12:13 PM EDT Associated Problem(s): Brain mass - MRI head w/w/o - IV dex 4mg q6hrs - PPI while on steroids - Keppra started outpatient by Neurology but discontinued due to significant drowsiness and no changes in RLE symptoms - functional MRI for speech and motor function - fiducial MRI pending - C/A/P CT scans negative for metastatic work-up - Hold all anticoagulation and antiplatelet medication - daily bowel regimen - Incentive spirometer q1h while awake - resume home medications as able - Avoid sedating medications as able - plan for operative intervention 02/23 * Assessment & Plan Note - Anaya Felton APRN - 02/18/2025 12:13 PM EDT Associated Problem(s): Sensory deficit, right - MRI head w/w/o - IV dex 4mg q6hrs - PPI while on steroids - Keppra started outpatient by Neurology but discontinued due to significant drowsiness and no changes in RLE symptoms - functional MRI for speech and motor function - fiducial MRI pending - C/A/P CT scans negative for metastatic work-up - Hold all anticoagulation and antiplatelet medication - daily bowel regimen - Incentive spirometer q1h while awake - resume home medications as able - Avoid sedating medications as able - plan for operative intervention 02/23 * Assessment & Plan Note - Anaya Felton APRN - 02/18/2025 12:13 PM EDT Associated Problem(s): Expressive aphasia - MRI head w/w/o - IV dex 4mg q6hrs - PPI while on steroids - Keppra started outpatient by Neurology but discontinued due to significant drowsiness and no changes in RLE symptoms - functional MRI for speech and motor function - fiducial MRI pending - C/A/P CT scans negative for metastatic work-up - Hold all anticoagulation and antiplatelet medication - daily bowel regimen - Incentive spirometer q1h while awake - resume home medications as able - Avoid sedating medications as able - plan for operative intervention 02/23 * Assessment & Plan Note - Anaya Felton APRN - 02/18/2025 12:13 PM EDT Associated Problem(s): Hyponatremia - Na 132 on admission. As low as 125 - continue to monitor - started fluid restriction * Progress Notes - Anaya Felton APRN - 02/18/2025 10:41 AM EDT Neurosurgery Progress Note Today's Date: 02/18/2025 Hospital course: Wali Murrell is a 64 y.o. female with pmhx of HTN, previous stroke on ASA/Plavix presenting with word finding difficulty and newly discovered left insular mass. Subjective Last 24 hours: No acute events overnight. Obtaining functional and fiducial MRI today. Fluid restriction started for hyponatremia. Tentative plan for OR Friday 02/23 Review of Systems Objective Medications Current Facility-Administered Medications Medication Dose Route Frequency Provider Last Rate Last Admin dexamethasone (Decadron) injection 4 mg 4 mg Intravenous q6h Anaya Felton APRN 4 mg at heparin (porcine) injection 7,500 Units 7,500 Units Subcutaneous q8h Anaya Felton APRN 7,500 Units at 02/18/25 0842 hydrALAZINE (Apresoline) injection 10 mg 10 mg Intravenous q1h PRN Katharine Oreilly MD Or hydrALAZINE (Apresoline) injection 20 mg 20 mg Intravenous q1h PRN Katharine Oreilly MD labetalol (Normodyne,Trandate) injection 10 mg 10 mg Intravenous q1h PRN Katharine Oreilly MD Or labetalol (Normodyne,Trandate) injection 20 mg 20 mg Intravenous q1h PRN Katharine Oreilly MD levETIRAcetam (Keppra) tablet 1,000 mg 1,000 mg Oral BID Anaya Felton APRN 1,000 mg at magnesium oxide (Mag-Ox) tablet 400 mg 400 mg Oral Once Anaya Felton APRN ondansetron ODT (Zofran-ODT) disintegrating tablet 4 mg 4 mg Oral q6h PRN Katharine Oreilly MD Or ondansetron (Zofran) injection 4 mg 4 mg Intravenous q6h PRN Katharine Oreilly MD pantoprazole (Protonix) EC tablet 40 mg 40 mg Oral Daily Rommelman, Michael A 40 mg at 02/18/25 0842 polyethylene glycol (Miralax) packet 17 g 17 g Oral BID Anaya Felton APRN senna-docusate (Maggy-Colace) 8.6-50 MG per tablet 2 tablet 2 tablet Oral BID Anaya Felton APRN sertraline (Zoloft) tablet 50 mg 50 mg Oral Daily Rommeltito Michael A 50 mg at 02/18/25 0842 sodium chloride 0.9 % flush 10 mL 10 mL Intravenous q12h Katharine Oreilly MD 10 mL at 02/18/25 0842 And sodium chloride 0.9 % flush 10 mL 10 mL Intravenous PRN Katharine Oreilly MD Last Recorded Vitals Visit Vitals BP 118/73 (BP Location: Right arm, Patient Position: Lying) Pulse 69 Temp 36.7 ??C (98 ??F) (Oral) Resp 18 Ht 1.676 m (5' 6 ) Wt 118 kg (260 lb) SpO2 97% BMI 41.97 kg/m?? OB Status Postmenopausal Smoking Status Never BSA 2.34 m?? Labs Labs in last 18 hours CBC WBC ?? Hb ?? Plt ?? Hct ?? BMP Na 132 (L) Cl 96 (L) BUN 11 Glu 106 (H) K 3.9 Co2 24 Cr 0.54 (L) Outputs No intake or output data in the 24 hours ending 02/18/25 1256 Output by Drain (mL) 02/16/25 07 - 02/16/25 1859 02/16/25 1900 - 02/17/25 0659 02/17/25 0700 - 02/17/25 1859 02/17/25 1900 - 02/18/25 0659 02/18/25 0700 - 02/18/25 1256 Patient has no LDAs of requested type attached. Physical Exam GEN: well developed, no acute distress. Obese habitus HEENT: normocephalic, atraumatic, no scleral icterus, oropharynx clear PULM: airways patent, non-labored breathing, normal effort. CV: normal rate and regular rhythm ABD: soft, non-tender, non-distended MSK: no joint swelling, normal range of motion SKIN: warm and dry, capillary refill <2 seconds PSYCHE: normal mood and affect Neuro Exam GCS (EMV): 465 Awake, alert, oriented Speech: clear, intact Follows commands appropriately PERRL, EOMI KRAUSE symmetrically, no drift Imaging 02/17/25 MR HEAD W AND WO IV CONTRAST IMPRESSION: Heterogeneously enhancing mass in the left insula and temporal lobe. The appearance is most consistent with primary brain neoplasm such as glioblastoma or other high-grade glioma. Metastasis is felt to be less likely. 02/16/25 CT Chest/Abdomen/Pelvis w IV contrast IMPRESSION: 1. No acute findings in the chest, abdomen and pelvis. 2. No evidence of metastatic disease or underlying neoplasm in the chest, abdomen and pelvis. 02/16/[address]: IMPRESSION: Mass noted in the left insula and posterior temporal region. This is most concerning for primary brain neoplasm and can be further evaluated with MRI. 02/16/25 Neck CTA: IMPRESSION: 1.Possible fibromuscular dysplasia in the cervical internal carotid arteries bilaterally. 2.Moderate stenosis of the cervical right vertebral artery. 02/16/25 Head CTA: IMPRESSION: No hemodynamically significant intracranial arterial stenosis or aneurysm is present. Imaging was reviewed on am rounds with team and agree with above Assessment and Plan Wali Murrell is a 64 y.o. female with pmhx of HTN, previous stroke on ASA/Plavix presenting with word finding difficulty and newly discovered left insular mass. Length of stay: 2 d Attending: Ned Menendez MD Assessment & Plan Brain tumor (benign) (CMS/HCC) Brain mass Sensory deficit, right Expressive aphasia - MRI head w/w/o - IV dex 4mg q6hrs - PPI while on steroids - Keppra started outpatient by Neurology but discontinued due to significant drowsiness and no changes in RLE symptoms - functional MRI for speech and motor function - fiducial MRI pending - C/A/P CT scans negative for metastatic work-up - Hold all anticoagulation and antiplatelet medication - daily bowel regimen - Incentive spirometer q1h while awake - resume home medications as able - Avoid sedating medications as able - plan for operative intervention Sunday, 02/23 History of CVA (cerebrovascular accident) - holding ASA and plavix for surgical intervention - continue statin Hypertension - resume home medications as appropriate - SPB < 140 - prn labetalol and hydralazine - continue to monitor GERD (gastroesophageal reflux disease) - takes omeprazole at home - pantoprazole while inpatient Depression - resume sertraline Hyponatremia - Na 132 on admission. As low as 125 - continue to monitor - started fluid restriction Electrolyte disturbance - Hypophosphatemia - Hypomagnesemia - will replace per sliding scale protocol - continue to monitor - follow up labs Obesity, Class III, BMI 40-49.9 (morbid obesity) - Body mass index is 41.97 kg/m??. - Complicates all aspects of care and recovery F: saline lock IV / PO intake E: Monitor and replace prn N: Regular diet + 1L fluid restriction PPX: SCDs, SQH Medically Ready for Discharge:Anticipated in 5+ Days Thank you for allowing us to participate in the care of this patient. Please call with any questions or concerns. Anaya Felton DNP, AUTOCUTTER Advanced Practice Provider Department of Neurosurgery [facility] * Care Plan - Sharmila Biggs RN - 02/18/2025 9:44 AM EDT Problem: Adult Inpatient Plan of Care Goal: Plan of Care Review Outcome: Ongoing, Progressing Flowsheets (Taken 02/18/2025 0943) Progress: improving Plan of Care Reviewed With: patient Problem: Adult Inpatient Plan of Care Goal: Patient-Specific Goal (Individualized) Outcome: Ongoing, Progressing Flowsheets (Taken 02/18/2025 0943) Patient/Family-Specific Goals (Include Timeframe): Pt will remain free from falls this shift Individualized Care Needs: Safety Anxieties, Fears or Concerns: None stated Problem: Adult Inpatient Plan of Care Goal: Absence of Hospital-Acquired Illness or Injury Outcome: Ongoing, Progressing Problem: Adult Inpatient Plan of Care Goal: Optimal Comfort and Wellbeing Outcome: Ongoing, Progressing Problem: Adult Inpatient Plan of Care Goal: Readiness for Transition of Care Outcome: Ongoing, Progressing * Assessment & Plan Note - Anaya Felton APRN - 02/18/2025 8:27 AM EDT Associated Problem(s): Hypertension - resume home medications as appropriate - SPB < 140 - prn labetalol and hydralazine - continue to monitor * Assessment & Plan Note - Anaya Felton APRN - 02/18/2025 8:27 AM EDT Associated Problem(s): History of CVA (cerebrovascular accident) - holding ASA and plavix for surgical intervention - continue statin * Assessment & Plan Note - Anaya Felton APRN - 02/18/2025 8:27 AM EDT Associated Problem(s): Electrolyte disturbance - Hypophosphatemia - Hypomagnesemia - will replace per sliding scale protocol - continue to monitor - follow up labs * Assessment & Plan Note - Anaya Felton APRN - 02/18/2025 6:53 AM EDT Associated Problem(s): GERD (gastroesophageal reflux disease) - takes omeprazole at home - pantoprazole while inpatient * Assessment & Plan Note - Anaya Felton APRN - 02/18/2025 6:53 AM EDT Associated Problem(s): Depression - resume sertraline * Progress Notes - Isai Plaza MD - 02/17/2025 9:36 AM EDT Neurosurgery Consult Follow-up Note History, exam, and imaging review with attending and discussed on rounds this morning. Wali Murrell is a 64 y.o. female with pmhx of HTN, previous stroke on ASA/Plavix presenting with word finding difficulty and newly discovered left insular mass. CT CAP neg. Exam: GCS (EMV): 465 Awake, alert, oriented Follows commands appropriately Speech clear PERRL, EOMI KRAUSE symmetrically, no drift - plan for OR next Sunday, ok for diet today - Follow up functional MRI for speech and motor function - Rest of care per primary team - Neurosurgery will continue to follow - Thank you for allowing us to participate in the care of this patient. Please call with any questions or concerns. [phone] Ranjana Yu MD Resident Physician, PGY-2 Department of Neurosurgery [facility] Cosigned by Ned Menendez MD at 02/18/2025 10:45 AM EDT Associated attestation - Ned Menendez MD - 02/18/2025 10:45 AM EDT I saw and evaluated the patient with the resident/fellow. I discussed the case with the resident/fellow and agree with the findings and plan as documented. * Consults - Michael Jain - 02/16/2025 6:32 PM EDTAssociated Order(s): IP CONSULT TO NEUROSURGERY Reason For Consult: New brain mass Requesting Service: EM Requested Date/Time: 02/16/2025 6:32 PM History Of Present Illness: Wali Murrell is a 64 y.o. female with hx of HTN, previous stroke, presenting to ED with word-finding difficulty. Patient reports since 02/06 she has had intermittent fluctuating word-finding difficulty with episodes lasting anywhere from several seconds upwards of 5 minutes. She presented to ED after symptoms failed to improve. Upon presentation CT imaging was obtained which showed a 5 cm mass of the left posterior insula. Of noteShe was recently hospitalized with the neurology service from 09/22- 09/25/2024 for episodicright-sided warmth CT and MRI imaging revealed a focus of mild restricted diffusion and enhancement in the left posterior insula consistent with possible subacute ischemia. She was started on keppra 1500mg BID as well as ASA/Plavix - last taken this morning. Past Medical, Surgical, and Social History noncontributory except as mentioned in HPI Medications: Current Medications[1] Allergies: Codeine Physical Exam GEN: well developed, no acute distress HEENT: normocephalic, atraumatic, no scleral icterus, PULM: normal work of breathing ABD: soft, non-tender, non-distended SKIN: warm and dry, capillary refill <2 seconds PSYCHE: normal mood and affect Neuro Exam GCS (EMV): 465 Awake, alert, oriented Follows commands appropriately Speech clear PERRL, EOMI KRAUSE symmetrically, no drift Labs I personally reviewed the following pertinent labs Results from last 7 days Lab Units 02/16/25 18102/16/25 1507 WBC 10*3/uL 10.56* 8.72 HEMOGLOBIN g/dL 13.2 13.0 HEMATOCRIT % 39.0 37.9 PLATELETS 10*3/uL 348 363 Results from last 7 days Lab Units 02/16/25 181 APTT sec 23* INR 1.0 Results from last 7 days Lab Units 02/16/25 1507 SODIUM mmol/L 132* POTASSIUM mmol/L 4.3 CHLORIDE mmol/L 90* CO2 mmol/L 22 BUN mg/dL 12 CREATININE mg/dL 0.57* EGFR mL/min/1.73m*2 100.4 GLUCOSE mg/dL 119* CALCIUM mg/dL 9.7 Imaging I personally reviewed CTH which showed interval development of left insular mass Assessment and Plan Wali Murrell is a 64 y.o. female with pmhx of HTN, previous stroke on ASA/Plavix presenting with word finding difficulty and newly discovered left insular mass. Assessment/Plan Active Problems: There are no active Hospital Problems. - Obtain Fiducial MRI head w/w/o - Please make NPO at midnight - Obtain coag studies (PTT, INR, type & screen, platelets) - Dex 10 mg IV once - Dex 4 mg IV q6hrs - GI ppx while on steroids (H2 salazar or PPI) - Keppra load 20mg/kg, then Keppra 750mg BID maintenance 12 hrs after load - Recomend CT chest/abd/pelvis to evaluate for primary cancer - Recommend evaluation by medicine for further metastatic workup - Recommend consult to medical oncology and radiation medicine - Hold all anticoagulation and antiplatelet medication - Will discuss the role for further neurosurgical intervention - Rest of care per primary team Michael Jain MD Resident Physician, PGY-2 Department of neurosurgery Pager: [phone] [1] Current Facility-Administered Medications Medication Dose Route Frequency Provider Last Rate Last Admin dexamethasone (Decadron) injection 10 mg 10 mg Intravenous Once Jewel Mora MD levETIRAcetam (Keppra) injection 2,000 mg 2,000 mg Intravenous Once Jewel Mora MD Current Outpatient Medications Medication Sig Dispense Refill ascorbic acid (vitamin [...] 1 (one) time each day. fish oil ([place]-3) 500 MG capsule Take 2,400 mg by mouth 2 (two) times a day. fluticasone (Flonase) 50 MCG/ACT nasal spray Administer 1 spray into each nostril 1 (one) time eachday if needed for rhinitis. Shake gently. Before first use, prime pump. After use, clean tip and replace cap. (Patient not taking: Reported on 09/26/2024) hydroCHLOROthiazide (HYDRODiuril) 25 MG tablet Take 1 tablet (25 mg) by mouth 2 (two) times a day. levETIRAcetam (Keppra) 500 MG tablet Take 3 tablets (1,500 mg) by mouth 2 (two) times a day. (Patient not taking: Reported on 01/21/2025) 180 tablet 11 lisinopril 40 MG tablet Take 0.5 tablets [...] time each day. Provitalize's synergistic probiotic-herb blend rosuvastatin (Crestor) 10 MG tablet Take 1 tablet by mouth daily for 14 days. 14 tablet 0 selenium 200 MCG tablet Take 1 tablet (200 mcg) by mouth 1 (one) time each day. sertraline (Zoloft) 50 MG tablet Take 1 tablet (50 mg) by mouth 1 (one) time each day. UNABLE TO FIND Take 1 each by mouth 1 (one) time each day. Med Name: Lion's Subhash 1000mg (Patient not taking: Reported on 09/26/2024) UNABLE TO FIND Med Name: Cod liver oil, 1000mg twice a day UNABLE TO FIND Med Name: Cyruta Plus, twice a day Cosigned by Jackie Marin MD at 02/17/2025 9:09 AM EDT Associated attestation - Jackie Marin MD - 02/17/2025 9:09 AM EDT Images from the original note were not included. I discussed the case with the resident/fellow and agree with the findings and plan as documented. Ms. Murrell's care will transition to my adult neurosurgical oncology partner this morning. Jackie Marin MD Director of Pediatric Neurosurgery [facility] * ED Provider Notes - Jewel Mora MD - 02/16/2025 2:38 PM EDT - HPI Chief Complaint Patient presents with difficulty speaking PIT NOTE Wali Murrell is a 64 y.o. female who presents to the ED with difficulty speaking. Pt reports episodic expressive aphasia for x3 days. Pt states she lost the ability to say specific words such as chicken or tea. Pt states she had hoped the aphasia would improve, but states her issue has not improved. Pt reports stating she feels like she is crying for no reason. Pt states she has had L elbow pain that has been strong enough to wake her up at night. Pt endorses h/o stroke, describing her symptoms as warmth to R side. Pt denies SOA or CP. Patient History Past Medical History[1] Surgical History[2] Family History[3] Social History[4] Allergies: Allergies[5] Physical Exam ED Triage Vitals [02/16/25 1445] Temp Heart Rate Resp BP 36.3 ??C (97.4 ??F) 72 18 (!) 159/89 SpO2 Temp Source Heart Rate Source Patient Position 98 % Oral -- -- BP Location FiO2 (%) -- -- Physical Exam Vitals and nursing note reviewed. Constitutional: General: She is not in acute distress. Appearance: Normal appearance. HENT: Head: Normocephalic and atraumatic. Nose: No rhinorrhea. Mouth/Throat: Mouth: Mucous membranes are moist. Pharynx: Oropharynx is clear. Eyes: General: Right eye: No discharge. Left eye: No discharge. Conjunctiva/sclera: Conjunctivae normal. Pupils: Pupils are equal, round, and reactive to light. Pulmonary: Effort: Pulmonary effort is normal. No respiratory distress. Breath sounds: No stridor. Musculoskeletal: General: Normal range of motion. Cervical back: No rigidity. Skin: General: Skin is warm and dry. Neurological: Mental Status: She is alert and oriented to person, place, and time. Cranial Nerves: Cranial nerves 2-12 are intact. Sensory: Sensation is intact. Motor: Motor function is intact. Psychiatric: Mood and Affect: Mood normal. Affect is tearful. Behavior: Behavior normal. Stanton Coma Scale Score: 15 ED Course & MDM - Assessment: 64 y.o. female presents to ED with complaint of word-finding difficulty. It should be noted that the chronic conditions includes prior stroke, which currently is at goal therapy. This complicates theclinical picture because it Comorbidities: may be exacerbating symptoms Differential Diagnosis: stroke, bleed, mass, seizure In order to fully explore the differential diagnosis the following treatments and tests were ordered: All Other Orders Ordered Status Ordering Provider 02/16/25 1442 POCT glucose meter PROCEDURE ONCE Final result POCT, GENERIC PROVIDER Social Determinates of Health Risks (including Economic Stability, Education and level of understanding, Healthcare access and quality and concerning social factors): None identified on this visit Ct with concern for brain mass Remainder of cts negative for primary I had an interactive discussion with nsgy who agreed to evaluate the patient at bedside and ultimately to admit the pt to their service Keppra and dex given Ultimately, this patient was Was admitted (Admission) The encounter diagnosis was Brain mass.. Patient believed to require admission for the listed diagnoses. The Neurosurgery service was consulted for admission and was agreeable to admit toAcute Floor (Med/Surg). Date/Time: 02/16/2025/2:50 PM Entered by Quinton Ambrocio acting as scribe for Dr. Kami Amin. Attending Attestation: The documentation was recorded by Quinton Ambrocio, acting as scribe in my presence at the time of the encounter and accurately reflects the service I personally performed. ED Prescriptions None - [1] Past Medical History: Diagnosis Date Brain bleed ([facility]) 09/02/2024 Small, went to ER Headache Hypertension [2] No past surgical history on file. [3] No family history on file. [4] Tobacco Use Smoking status: Never Smokeless tobacco: Never Substance Use Topics Alcohol use: Never Comment: No alcohol at all Drug use: Never [5] Allergies Allergen Reactions Codeine Nausea Jewel Mora MD Resident 02/17/25 1530 Cosigned by Maximus Ambrocio DO at 02/20/2025 7:31 AM EDT Associated attestation - Maximus Ambrocio DO - 02/20/2025 7:31 AM EDT I saw and evaluated the patient with the resident/fellow. I discussed the case with the resident/fellow and agree with the findings and plan as documented. * ED Triage Notes - Mya Moncada RN - 02/16/2025 2:38 PM EDT Reprots intermittent expressive aphasia that started at 0800. DAMIR RUSS notified and wants to evaluate piror to making stroke alert. documented in this encounter Plan of Treatment Upcoming Encounters Date Type Department Care Team (Late st Contact Info) Description 03/23/2025 1:45 PM EDT Clinical Support Pav [facility] [address] [facility] [place] [address] 03/23/2025 2:00 PM EDT Office Visit Pav [facility] [address] [facility] [place] [address] Chente Sebastian MD [address] [facility] [address] [place] [address] 07/06/2025 9:30 AM EDT Office Visit [place] [facility] [address], [address] [place] [address] Sanchez Zaldivar MD [address] [facility] [address] [place] [address] Scheduled Referrals Name Type Priority Associated Diagnoses Order Schedule Ambulatory referral to Radiation Oncology Outpatient Referral Routine Brain mass Expected: 03/11/2025, Expires: 08/29/2026 Ambulatory referral to Neurology Outpatient Referral Routine Brain mass Focal seizure (CMS/HCC) Facial droop Expressive aphasia Acute right-sided weakness Expected: 05/29/2025, Expires: 08/30/2026 Ambulatory referral to Hematology Oncology/Medical Oncology Outpatient Referral Routine Brain mass Expected: 03/12/2025, Expires: 08/30/2026 Discharge Ambulatory referral to Physical Therapy Outpatient Referral Routine Brain mass Sensory deficit, right 1 Occurrences starting 02/27/2025 until 08/31/2026 Discharge Ambulatory referral - Establish Care with PCP Outpatient Referral Routine Hyponatremia Hypertension, unspecified type Expected: 03/06/2025 (Approximate), Expires: 08/30/2026 documented as of this encounter Procedures Procedure Name Priority Date/Time Associated Diagnosis Comments HC EEG,W/AWAKE & DROWSY RECORD - EEG AWAKE OR DROWSY PORTABLE Routine 02/27/2025 9:21 AM EDT BASIC METABOLIC PANEL, PLASMA Pending Discharge 02/27/2025 8:59 AM EDT TROPONIN T, HIGH SENSITIVITY, 2 HOUR, PLASMA Timed 02/26/2025 11:08 AM EDT ECG ADULT STAT 02/26/2025 9:51 AM EDT TROPONIN T, HIGH SENSITIVITY, 0 HOUR, PLASMA, REFLEX TO 2 HOUR STAT 02/26/2025 8:26 AM EDT APTT STAT 02/26/2025 8:26 AM EDT PROTHROMBIN TIME(PT) / INR STAT 02/26/2025 8:26 AM EDT CBC WITH AUTO DIFFERENTIAL STAT 02/26/2025 8:26 AM EDT BASIC METABOLIC PANEL, PLASMA STAT 02/26/2025 8:26 AM EDT POCT GLUCOSE METER UNSOLICITED RESULTS Routine 02/26/2025 8:18 AM EDT OXYGEN THERAPY Routine 02/26/2025 8:16 AM EDT OXYGEN THERAPY Routine 02/26/2025 8:16 AM EDT OXYGEN THERAPY Routine 02/26/2025 8:[address] ANGIO NECK STAT 02/26/2025 8:[address] ANGIO HEAD STAT 02/26/2025 8:[address] HEAD WO IV CONTRAST STAT 7:59 AM EDT CBC W/O DIFFERENTIAL Routine 02/26/2025 4:23 AM EDT PHOSPHORUS, PLASMA Routine 02/26/2025 4: 23 AM EDT MAGNESIUM, PLASMA Routine 02/26/2025 4:2 3 AM EDT BASIC METABOLIC PANEL, PLASMA Routine 02/26/2025 4:23 AM EDT BASIC METABOLIC PANEL, PLASMA Routine 02/25/2025 12:14 PM EDT MR HEAD W AND WO IV CONTRAST Routine 02/25/2025 4:40 AM EDT POCT GLUCOSE METER UNSOLICITED RESULTS Routine 02/25/2025 12:08 AM EDT FISH, PARAFFIN 1P/19Q Pending Discharge 02/24/2025 9:04 PM EDT Brain mass SURGICAL PATHOLOGY EXAM Routine 02/24/2025 9:04 PM EDT Brain mass BLOOD GAS PANEL, ARTERIAL STAT 02/24/2025 7:23 PM EDT CRANIOTOMY, FOR INTRACRANIAL NEOPLASM EXCISION 02/24/2025 5:19 PM EDT Brain mass BASIC METABOLIC PANEL, PLASMA STAT 02/24/2025 6:42 AM EDT BASIC METABOLIC PANEL, PLASMA Routine 02/24/2025 4:13 AM EDT APTT Routine 02/23/2025 5:11 PM EDT PROTHROMBIN TIME(PT) / INR Routine 02/23/2025 5:11 PM EDT CBC WITH AUTO DIFFERENTIAL Routine 02/23/2025 5:11 PM EDT TYPE AND SCREEN Routine 02/23/2025 5:11 PM EDT COMPREHENSIVE METABOLIC PANEL, PLASMA Routine 02/23/2025 5:11 PM EDT POCT GLUCOSE METER UNSOLICITED RESULTS Routine 02/23/2025 12:01 PM EDT POCT GLUCOSE METER UNSOLICITED RESULTS Routine 02/23/2025 8:20 AM EDT SODIUM, PLASMA Timed 02/23/2025 12:40 AM EDT POCT GLUCOSE METER UNSOLICITED RESULTS Routine 02/22/2025 7:51 PM EDT POCT GLUCOSE Routine 02/22/2025 7:45 PM EDT MR HEAD W IV CONTRAST Routine 02/22/2025 5:53 PM EDT POCT GLUCOSE METER UNSOLICITED RESULTS Routine 02/22/2025 3:40 PM EDT APTT Routine 02/22/2025 12:45 PM EDT PROTHROMBIN TIME(PT) / INR Routine 02/22/2025 12:45 PM EDT CBC W/O DIFFERENTIAL Routine 02/22/2025 12:45 PM EDT SODIUM, PLASMA Timed 02/22/2025 12:45 PM EDT PHOSPHORUS, PLASMA Routine 02/22/2025 12:45 PM EDT MAGNESIUM, PLASMA Routine 02/22/2025 12:45 PM EDT BASIC METABOLIC PANEL, PLASMA STAT 02/22/2025 12:45 PM EDT POCT GLUCOSE METER UNSOLICITED RESULTS Routine 02/22/2025 11:57 AM EDT POCT GLUCOSE METER UNSOLICITED RESULTS Routine 02/22/2025 8:07 AM EDT SODIUM, PLASMA Timed 02/22/2025 3:57 AM EDT POCT GLUCOSE METER UNSOLICITED RESULTS Routine 02/21/2025 7:32 PM EDT POCT GLUCOSE METER UNSOLICITED RESULTS Routine 02/21/2025 4:01 PM EDT SODIUM, PLASMA Timed 02/21/2025 4:01 PM EDT POCT GLUCOSE METER UNSOLICITED RESULTS Routine 02/21/2025 12:08 PM EDT POCT GLUCOSE METER UNSOLICITED RESULTS Routine 02/21/2025 8:29 AM EDT SODIUM, PLASMA Timed 02/21/2025 4:31 AM EDT POCT GLUCOSE METER UNSOLICITED RESULTS Routine 02/20/2025 7:45 PM EDT POCT GLUCOSE METER UNSOLICITED RESULTS Routine 02/20/2025 3:36 PM EDT SODIUM, PLASMA Timed 02/20/2025 3:09 PM EDT POCT GLUCOSE METER UNSOLICITED RESULTS Routine 02/20/2025 11:45 AM EDT POCT GLUCOSE METER UNSOLICITED RESULTS Routine 02/20/2025 7:45 AM EDT EXTRA TUBE LAVENDER TOP Routine 02/20/2025 4:27 AM EDT EXTRA TUBES Routine 02/20/2025 4:27 AM EDT SODIUM, PLASMA Timed 02/20/2025 4:27 AM EDT POCT GLUCOSE METER UNSOLICITED RESULTS Routine 02/19/2025 7:59 PM EDT SODIUM, PLASMA Timed 02/19/2025 4:17 PM EDT HEMOGLOBIN A1C Routine 02/19/2025 4:17 PM EDT POCT GLUCOSE METER UNSOLICITED RESULTS Routine 02/19/2025 3:42 PM EDT POCT GLUCOSE METER UNSOLICITED RESULTS Routine 02/19/2025 12:00 PM EDT SODIUM, URINE, RANDOM Routine 02/19/2025 11:50 AM EDT OSMOLALITY, URINE Routine 02/19/2025 11:50 AM EDT CREATININE, RANDOM URINE Routine 02/19/2025 11:50 AM EDT ECG ADULT Routine 02/19/2025 11:42 AM EDT SODIUM, PLASMA Timed 02/19/2025 4:03 AM EDT PHOSPHORUS, PLASMA Routine 02/19/2025 4: 03 AM EDT OSMOLALITY, SERUM Add-On 02/19/2025 4:0 3 AM EDT MAGNESIUM, PLASMA Routine 02/19/2025 4:0 3 AM EDT BASIC METABOLIC PANEL, PLASMA Routine 02/19/2025 4:03 AM EDT SODIUM, PLASMA Timed 02/18/2025 3:27 PM EDT MR BRAIN NEUROFUNCTIONAL TEST W PHYSICIAN ADMINISTRATION Routine 02/18/2025 12:29 PM EDT PHOSPHORUS, PLASMA STAT 02/18/2025 8: 54 AM EDT MAGNESIUM, PLASMA STAT 02/18/2025 8:5 4 AM EDT COMPREHENSIVE METABOLIC PANEL, PLASMA STAT 02/18/2025 8:54 AM EDT APTT Routine 02/16/2025 9:51 PM EDT PROTHROMBIN TIME(PT) / INR Routine 02/16/2025 9:51 PM EDT ANTI XA LEVEL UNFRACTIONATED HEPARIN Routine 02/16/2025 9:51 PM EDT CBC W/O DIFFERENTIAL Routine 02/16/2025 9:51 PM EDT PHOSPHORUS, PLASMA Routine 02/16/2025 9: 51 PM EDT MAGNESIUM, PLASMA Routine 02/16/2025 9:5 1 PM EDT BASIC METABOLIC PANEL, PLASMA Routine 02/16/2025 9:51 PM EDT MR HEAD W AND WO IV CONTRAST Routine 02/16/2025 9:[address] ABDOMEN PELVIS W IV CONTRAST STAT 02/16/2025 7:[address] CHEST W IV CONTRAST STAT 7:49 PM EDT PLATELET P2Y12 RECEPTOR BLOCKADE, VERIFY NOW PRU Routine 02/16/2025 7:25 PM EDT APTT Routine 02/16/2025 6:10 PM EDT PROTHROMBIN TIME(PT) / INR Routine 02/16/2025 6:10 PM EDT CBC WITH AUTO DIFFERENTIAL Routine 02/16/2025 6:10 PM EDT TYPE AND SCREEN Routine 02/16/2025 6:10 PM EDT COMPREHENSIVE METABOLIC PANEL, PLASMA Routine 02/16/2025 6:[address] ANGIO NECK STAT 02/16/2025 3:[address] HEAD W AND WO IV CONTRAST STAT 02/16/2025 3:[address] ANGIO HEAD STAT 02/16/2025 3:41 PM EDT CBC W/O DIFFERENTIAL STAT 02/16/2025 3:07 PM EDT COMPREHENSIVE METABOLIC PANEL, PLASMA STAT 02/16/2025 3:07 PM EDT POCT GLUCOSE METER UNSOLICITED RESULTS Routine 02/16/2025 2:42 PM EDT documented in this encounter Results * EEG (02/27/2025 9:21 AM EDT) Anatomical Region Laterality Modality EEG Narrative 02/27/2025 12:11 PM EDT Table formatting from the original result was not included. Electroencephalogram Report Patient: Wali Murrell : 1960 SEX: female Referring Provider: Anaya Felton APRN EEG Reading Physician: Geremias Ferreira MD Study Type: IP-Routine Begin Date: 02/27/2025 Begin Time: 8:56 AM End Date: 02/27/2025 End Time: 9:21 AM Total EEG Recording Time: 25 minutes Medications: Current Medications[1] Reason for EE64 year old female with concern for seizures. Video EEG requested to evaluate for epileptiform abnormalities. ? Technical Summary: This EEG was performed with a 21 channel EEG machine with electrodes placed according to the international 10-20 system of placement. A dedicated channel was used for EKG. Video recording during the study was also performed. Longitudinal and coronal bipolar montages and ear reference montages were used with usual gain and filter settings. Record Quality: The record is of good technical quality for purposes of interpretation. Background: During the maximal awake state, a posterior dominant rhythm of 8-9 Hz was seen. It was well regulated, well sustained, symmetric, and reactive to eye opening. Anterior background predominantly consisted of polymorphic medium amplitude activity in the alpha-theta range. Interictal: No interictal epileptiform discharges. There is nearly continuous polymorphic delta slowing of the left frontotemporal head region (F7-T7 maximal) Ictal/Events: No clinical or electrographic ictal events were seen. No clinical events were seen. Hyperventilation: Not performed. Photic Stimulation: Not performed. Sleep: Not recorded. Impression: This EEG is abnormal due to the following: Focal left frontotemporal slowing, suggestive of a structural/functional lesion in this region. Diffuse background slowing, suggestive of a mild nonspecific encephalopathy. There were no clinical/electrographic seizures or interictal epileptiform discharges. Geremias Ferreira MD [1] No current facility-administered medications for this visit. Current Outpatient Medications Medication Sig Dispense Refill acetaminophen (Tylenol) 500 MG tablet Take 2 tablets by mouth every 6 hours. 100 tablet 0 cyclobenzaprine (Flexeril) 5 MG tablet Take 1 tablet by mouth 3 times a day as needed for muscle spasms. 30 tablet 0 dexamethasone (Decadron) 4 MG tablet Take 1 tablet by mouth 4 times a day for 1 day, THEN 1 tablet 3 times a day for 2 days, THEN 1 tablet 2 times a day for 3 days, THEN 0.5 tablets 2 times a day for 2 days. 18 tablet 0 levETIRAcetam (Keppra) 500 MG tablet Take 3 tablets by mouth 2 times a day. 180 tablet 11 NIFEdipine CC (Adalat CC) 30 MG 24 hr tablet Take 1 tablet by mouth daily. Do not crush, chew, or split. 30 tablet 1 Facility-Administered Medications Ordered in Other Visits Medication Dose Route Frequency Provider Last Rate Last Admin acetaminophen (Tylenol) tablet 1,000 mg 1,000 mg Oral q6h RAJ John Bhat MD 1,000 mg at 02/27/25 0558 acetaminophen (Tylenol) tablet 650 mg 650 mg Oral q6h PRN Anaya Felton, AUTOCUTTER bacitracin (1g packet) ointment 1 packet 1 packet Topical BID Anaya Felton APRN 1 packet at 02/27/25 0839 bisacodyl (Dulcolax) suppository 10 mg 10 mg Rectal Daily PRN Anaya Felton, AUTOCUTTER cyclobenzaprine (Flexeril) tablet 5 mg 5 mg Oral TID John Bhat MD 5 mg at 02/27/25 0839 cyclobenzaprine (Flexeril) tablet 5 mg 5 mg Oral TID PRN Anaya Felton APRN 5 mg at 02/26/25 1325 dexamethasone (Decadron) tablet 4 mg 4 mg Oral 4x daily Susy Michael A 4 mg at 02/27/25 0839 Followed by [START ON 02/28/2025] dexamethasone (Decadron) tablet 4 mg 4 mg Oral TID Susy Michael A Followed by [START ON 03/02/2025] dexamethasone (Decadron) tablet 4 mg 4 mg Oral BID Susy Michael A Followed by [START ON 03/05/2025] dexamethasone (Decadron) tablet 2 mg 2 mg Oral BID Susy Michael A heparin (porcine) injection 7,500 Units 7,500 Units Subcutaneous q8h Anaya Felton APRN 7,500 Units at 02/27/25 0839 hydrALAZINE (Apresoline) injection 10 mg 10 mg Intravenous q1h PRN Katharine Oreilly MD 10 mg at 02/22/25 2141 Or hydrALAZINE (Apresoline) injection 20 mg 20 mg Intravenous q1h PRN Katharine Oreilly MD 20 mg at 02/23/25 0514 labetalol (Normodyne,Trandate) injection 10 mg 10 mg Intravenous q1h PRN Katharine Oreilly MD Or labetalol (Normodyne,Trandate) injection 20 mg 20 mg Intravenous q1h PRN Katharine Oreilly MD levETIRAcetam (Keppra) tablet 1,500 mg 1,500 mg Oral BID Anaya Felton APRN 1,500 mg at 02/27/25 0839 lisinopril tablet 20 mg 20 mg Oral BID Anaya Felton APRN 20 mg at 02/27/25 0839 nebivolol (Bystolic) tablet 5 mg 5 mg Oral Daily Ranjana Yu MD 5 mg at 02/27/25 0839 NIFEdipine XL (Procardia XL) 24 hr tablet 30 mg 30 mg Oral Daily Anaya Felton APRN 30 mg at 02/27/25 08 ondansetron ODT (Zofran-ODT) disintegrating tablet 4 mg 4 mg Oral q6h PRN Katharine Oreilly MD Or ondansetron (Zofran) injection 4 mg 4 mg Intravenous q6h PRN Katharine Oreilly MD pantoprazole (Protonix) EC tablet 40 mg 40 mg Oral Daily Susy Michael A 40 mg at 02/27/25 0839 polyethylene glycol (Miralax) packet 17 g 17 g Oral BID Anaya Felton APRN 17 g at 02/27/25 0839 senna-docusate (Maggy-Colace) 8.6-50 MG per tablet 2 tablet 2 tablet Oral BID Anaya Felton APRN 2 tablet at 02/27/25 0839 sertraline (Zoloft) tablet 50 mg 50 mg Oral Daily Susy Michael A 50 mg at 02/27/25 0839 sodium chloride 0.9 % flush 10 mL 10 mL Intravenous q12h Katharine Oreilly MD 10 mL at 02/26/252036 And sodium chloride 0.9 % flush 10 mL 10 mL Intravenous PRN Katharine Oreilly MD Anaya Felton APRN NEUROLOGY ORDERABLES Final R esult * (ABNORMAL) Basic metabolic panel (02/27/2025 8:59 AM EDT) [facility] Glucose, Plasma 95 74 - 99 mg/dL 02/27/2025 9:40 AM EDT [facility] BUN, Plasma 21 8 - 23 mg/dL 02/27/2025 9:40 AM EDT [facility] Creatinine, Plasma 0.64 0.60 - 1.10 mg/dL 02/27/2025 9:40 AM EDT [facility] BUN/Creatinine Ratio 33 02/27/2025 9:40 AM EDT [facility] Sodium, Plasma 132(L) 136 - 145 mmol/L 02/27/2025 9:40 AM EDT [facility] Potassium, Plasma 4.2 3.6 - 4.9 mmol/L 02/27/2025 9:40 AM EDT [facility] Chloride, Plasma 97 97 - 107 mmol/L 02/27/2025 9:40 AM EDT [facility] CO2, Plasma 23 22 - 29 mmol/L 02/27/2025 9:40 AM EDT [facility] Anion Gap 12 6 - 16 mmol/L 02/27/2025 9:40 AM EDT [facility] Total Calcium, Plasma 9.2 8.9 - 10.2 mg/dL 02/27/2025 9:40 AM EDT [facility] eGFRcr 97.6 mL/min/1.7 3m*2 02/27/2025 9:40 AM EDT [facility] Comment:Reported eGFRcr in m L/min/1.73m2 is based the CKD-EPI 2020 equation that does not use a race coefficient. Blood Venous blood specimen / Unknown Venipuncture / Unknown 02/27/2025 8:59 AM EDT 02/27/2025 9:08 AM EDT us Ede Ruiz MD LAB BLOOD ORDERABLES Final R esult [facility] [address] [place] [address] * Troponin T, High Sensitivity, 2 Hour, Plasma (02/26/2025 11:08 AM EDT) Pathologist [facility] Troponin T, High Sensitivity, 2 Hour 8 <14 ng/L 02/26/2025 11:43 AM EDT [facility] Blood Venous blood specimen / Unknown Venipuncture / Unknown 02/26/2025 11:08 AM EDT 02/26/2025 11:15 AM EDT Result [facility] Ned Menendez MD LAB BLOOD ORDERABLES Final Res ult Performing Organization Address [facility] Co de Phone Number [facility] [address] [place] [address] * ECG Adult (02/26/2025 9:51 AM EDT) EKG DIAGNOSIS CLASS Normal MUSE ECG Ventricular Rate 73 BPM MUSE ECG Atrial Rate 73 BPM MUSE ECG NC Interval 176 ms MUSE ECG QRSD Interval 80 ms MUSE ECG QT Interval 380 ms MUSE ECG QTC Interval 418 ms MUSE ECG P [place] 9 degrees MUSE ECG R [place] 0 degrees MUSE ECG T Wave [place] 27 degrees MUSE ECG Diagnosis Normal sinus rhythm MUSE ECG Diagnosis MUSE ECG Diagnosis MUSE ECG Diagnosis Confirmed by Tasneem Ludwig ([id number]) on 02/27/2025 10:30:15 AM MUSE ECG 02/26/2025 9:51 AM EDT 02/27/2025 10:30 AM EDT Ned Menendez MD ECG ORDERABLES Final Result Performing Organization Address [facility] de Phone Number MUSE ECG * Troponin T, High Sensitivity, 0 Hour Plasma, Reflex to 2 Hour (02/26/2025 8:26 AM EDT) Troponin T, High Sensitivity, 0 Hour 11 <14 ng/L 02/26/2025 9:08 AM EDT [facility] Blood Venous blood specimen / Unknown Venipuncture / Unknown 02/26/2025 8:26 AM EDT 02/26/2025 8:38 AM EDT Ned Menendez MD LAB BLOOD ORDERABLES Final Res ult Performing Organization Address City/[facility] Co de Phone Number [facility] [address] [place] [address] * Protime-INR (02/26/2025 8:26 AM EDT) Prothrombin Time 13.4 12.0 - 14.3 sec LAB COAGULATION METHOD 02/26/2025 9:01 AM EDT [facility] INR 1.0 0.9 - 1.1 LAB COAGULATION METHOD 02/26/2025 9:01 AM EDT [facility] Blood Venous blood specimen / Unknown Venipuncture / Unknown 02/26/2025 8:26 AM EDT 02/26/2025 8:38 AM EDT Narrative [facility] - 02/26/2025 9:01 AM EDT OPTIMAL INR RANGES FOR PATIENT ON ORAL ANTICOAGULANT THERAPY Prevention of venous thromboembolism INR 2.0 to 3.0 In patients with heart disease: Atrial fibrillation INR 2.0 to 3.0 Valvular heart disease INR 2.0 to 3.0 Tissue heart valves INR 2.0 to 3.0 Mechanical prosthetic valves INR 2.5 to 3.5 Prevention of recurrent ME INR 2.5 to 3.5 us Ned Menendez MD LAB BLOOD ORDERABLES Final Res ult [facility] [address] [place] [address] * APTT (02/26/2025 8:26 AM EDT) aPTT 28 25 - 35 sec LAB COAGULATION METHOD 02/26/2025 9:01 AM EDT [facility] Blood Venous blood specimen / Unknown Venipuncture / Unknown 02/26/2025 8:26 AM EDT 02/26/2025 8:38 AM EDT Ned Menendez MD LAB BLOOD ORDERABLES Final Res ult [facility] [address] [place] [address] * (ABNORMAL) CBC and differential (02/26/2025 8:26 AM EDT) WBC Count 14.93(H) 3.70 - 10.30 10*3/uL LAB HEMATOLOGY METHOD 02/26/2025 8:45 AM EDT [facility] RBC Count 4.36 3.90 - 5.20 10*6/uL LAB HEMATOLOGY METHOD 02/26/2025 8:45 AM EDT [facility] HGB 12.3 11.2 - 15.7 g/dL LAB HEMATOLOGY METHOD 02/26/2025 8:45 AM EDT [facility] HCT 36.1 34.0 - 45.0 % LAB HEMATOLOGY METHOD 02/26/2025 8:45 AM EDT [facility] Platelet Count 349 155 - 369 10*3/uL LAB HEMATOLOGY METHOD 02/26/2025 8:45 AM EDT [facility] MCV 83 79 - 98 fL LAB HEMATOLOGY METHOD 02/26/2025 8:45 AM EDT [facility] MCH 28.2 26.0 - 32.0 pg LAB HEMATOLOGY METHOD 02/26/2025 8:45 AM EDT [facility] MCHC 34.1 30.7 - 35.5 g/dL LAB HEMATOLOGY METHOD 02/26/2025 8:45 AM EDT [facility] RDW 13.1 11.5 - 14.5 % LAB HEMATOLOGY METHOD 02/26/2025 8:45 AM EDT [facility] MPV 9.2 8.8 - 12.5 fL LAB HEMATOLOGY METHOD 02/26/2025 8:45 AM EDT [facility] nRBC 0.0 <=0.0 per 100 WBCs LAB HEMATOLOGY METHOD 02/26/2025 8:45 AM EDT [facility] Differential Type Automated LAB HEMATOLOGY METHOD 02/26/2025 8:45 AM EDT [facility] Neutrophils % 80 % LAB HEMATOLOGY METHOD 02/26/2025 8:45 AM EDT [facility] Lymphocytes % 9 % LAB HEMATOLOGY METHOD 02/26/2025 8:45 AM EDT [facility] Monocytes % 10 % LAB HEMATOLOGY METHOD 02/26/2025 8:45 AM EDT [facility] Eosinophils % 0 % LAB HEMATOLOGY METHOD 02/26/2025 8:45 AM EDT [facility] Basophils % 0 % LAB HEMATOLOGY METHOD 02/26/2025 8:45 AM EDT [facility] Immature Granulocytes % 1 % LAB HEMATOLOGY METHOD 02/26/2025 8:45 AM EDT [facility] Neutrophils Absolute 11.91(H) 1.60 - 6.10 10*3/uL LAB HEMATOLOGY METHOD 02/26/2025 8:45 AM EDT [facility] Lymphocytes Absolute 1.41 1.20 - 3.90 10*3/uL LAB HEMATOLOGY METHOD 02/26/2025 8:45 AM EDT [facility] Monocytes Absolute 1.43(H) 0.30 - 0.90 10*3/uL LAB HEMATOLOGY METHOD 02/26/2025 8:45 AM EDT [facility] Eosinophils Absolute 0.00 0.00 - 0.50 10*3/uL LAB HEMATOLOGY METHOD 02/26/2025 8:45 AM EDT [facility] Basophils Absolute 0.02 0.00 - 0.10 10*3/uL LAB HEMATOLOGY METHOD 02/26/2025 8:45 AM EDT [facility] Immature Granulocytes Absolute 0.16(H) 0.00 - 0.06 10*3/uL LAB HEMATOLOGY METHOD 02/26/2025 8:45 AM EDT [facility] Blood Venous blood specimen / Unknown Venipuncture / Unknown 02/26/2025 8:26 AM EDT 02/26/2025 8:38 AM EDT Narrative [facility] - 02/26/2025 8:45 AM EDT Therapeutic decision making should be based on absolute values, rather than percentages. us Ned Menendez MD LAB BLOOD ORDERABLES Final Res ult [facility] [address] [place] [address] * (ABNORMAL) Basic metabolic panel (02/26/2025 8:26 AM EDT) Glucose, Plasma 128(H) 74 - 99 mg/dL 02/26/2025 9:08 AM EDT [facility] BUN, Plasma 16 8 - 23 mg/dL 02/26/2025 9:08 AM EDT [facility] Creatinine, Plasma 0.61 0.60 - 1.10 mg/dL 02/26/2025 9:08 AM EDT [facility] BUN/Creatinine Ratio 26 02/26/2025 9:08 AM EDT [facility] Sodium, Plasma 128(L) 136 - 145 mmol/L 02/26/2025 9:08 AM EDT [facility] Potassium, Plasma 4.5 3.6 - 4.9 mmol/L 02/26/2025 9:08 AM EDT [facility] Chloride, Plasma 94(L) 97 - 107 mmol/L 02/26/2025 9:08 AM EDT [facility] CO2, Plasma 22 22 - 29 mmol/L 02/26/2025 9:08 AM EDT [facility] Anion Gap 12 6 - 16 mmol/L 02/26/2025 9:08 AM EDT [facility] Total Calcium, Plasma 9.1 8.9 - 10.2 mg/dL 02/26/2025 9:08 AM EDT [facility] eGFRcr 98.7 mL/min/1.7 3m*2 02/26/2025 9:08 AM EDT [facility] Comment:Reported eGFRcr in m L/min/1.73m2 is based the CKD-EPI 2020 equation that does not use a race coefficient. Blood Venous blood specimen / Unknown Venipuncture / Unknown 02/26/2025 8:26 AM EDT 02/26/2025 8:38 AM EDT us Ned Menendez MD LAB BLOOD ORDERABLES Final Res ult [facility] [address] [place] [address] * (ABNORMAL) POCT glucose meter (02/26/2025 8:18 AM EDT) POCT Glucose 143(H) 74 - 99 mg/dL 02/26/2025 8:21 AM EDT [facility] Comment:Accuracy of a glucos e result obtained from a capillary whole blood specimen relies upon adequate, non-compromised capillary blood flow. If the capillary glucose result is not consistent with the patient's clinical signs and symptoms, glucose testing should be repeated with either an arterial or venous sample on the glucometer or sent to the main labortory for testing. Comment 02/26/2025 8:21 AM EDT [facility] [employer] ID Sherin Bynum 02/26/2025 8:21 AM EDT [facility] Device ID [id number] 02/26/2025 8:21 AM EDT [facility] Specimen Type POC Capillary 02/26/2025 8:21 AM EDT [facility] Blood Capillary blood specimen / Unknown 02/26/2025 8:18 AM EDT 02/26/2025 8:21 AM EDT Ned Menendez MD LAB POINT OF CARE TE ST DOCKED DEVICE UNSOLICITED RESULTS Final Result Performing Organization Address City/State/[facility] Co de Phone Number [facility] [address] [place] [id number] * CT Angio Neck (02/26/2025 8:10 AM EDT) Anatomical Region Laterality Modality Carotid Artery Computed Tomogra phy Impressions 02/26/2025 8:59 AM EDT Neck CTA: No definite high-grade stenosis is present within the cervical carotid and vertebral systems. Redemonstration of moderate stenoses in right V2 segment. Redemonstration of mild irregularity/undulating contour of the cervical internal carotid arteries which could be due to fibromuscular dysplasia, although component of atherosclerosis/tortuosity cannot be excluded. Head CTA: No definite significant intracranial arterial stenosis or aneurysm is present. CRITICAL RESULT: No. COMMUNICATION: Per this written report. Drafted by Jeremias Yanez MD on 02/26/2025 8:35 AM Final report signed by Jeremias Yanez MD on 02/26/2025 8:59 AM Narrative 02/26/2025 8:59 AM EDT CLINICAL INDICATION: Neuro deficit, acute, stroke suspected TECHNIQUE: Head CTA: Axial images were obtained through the head during contrast bolus injection and multiplanar MIP images were created. Neck CTA: Axial images were obtained through the neck during bolus contrast injection and multiplanar reformatted and MIP images were created. 60 mL of Omnipaque 350 were administered intravenously. Total DLP (Dose-Length Product): 953.08 mGy.cm (accession [id number]), 953.08 mGy.cm (accession [id number]). Please note: The reported value represents the total of one or more individual components during the CT acquisition on this date and at this time, and as such, the same value may appear in more than one CT report depending on the interpreting/reporting physicians. COMPARISON: CTA head and neck, 02/16/2025 FINDINGS: Neck CTA: Diagnostic Quality: Degraded due to artifacts from dense venous contrast and dental amalgam/hardware. Aorta and Great Vessel Origins: The aortic arch has a normal branching pattern. There is no definite significant stenosis of the origins of the great arteries of the neck. Right Cervical Carotid System: The right common carotid artery and its origin are patent. There is mild atherosclerotic plaque at the carotid bifurcation. There is a 0% stenosis at the bifurcation by NASCET criteria. The right internal carotid artery demonstrates a tortuous and retropharyngeal course. Redemonstration of mild irregularity/undulating contour of the cervical internal carotid artery which could be due to fibromuscular dysplasia, although component of atherosclerosis/tortuosity cannot be excluded. There is no definite evidence of dissection or pseudoaneurysm of the right common and internal carotid arteries. Left Cervical Carotid System: The left common carotid artery and its origin are patent. There is mild atherosclerotic plaque at the carotid bifurcation. There is a 0% stenosis at the bifurcation by NASCET criteria. The left internal carotid artery demonstrates a retropharyngeal course. Redemonstration of mild irregularity/undulating contour of the cervical internal carotid artery which could be due to fibromuscular dysplasia, although component of atherosclerosis/tortuosity cannot be excluded. There is no definite evidence of dissection or pseudoaneurysm of the left common and internal carotid arteries. Vertebral arteries: The origins appear patent. Redemonstration of moderate stenosis in the proximal right P2 segment and mild stenoses in the left P2 segment. There is no definite evidence of a dissection, pseudoaneurysm, or high-grade stenosis of the vertebral arteries. Other Findings: Multilevel degenerative changes in the cervical spine. Similar wedge deformity of C4 vertebral body. Bilateral tonsilloliths. Head CTA: Diagnostic Quality: Adequate Vertebrobasilar System: No significant stenosis in the intradural vertebral arteries and in the basilar artery. There is no aneurysm. Carotid Arteries: Right ICA: No significant atherosclerotic plaque or stenosis. Left ICA: No significant atherosclerotic plaque or stenosis. Other Findings: There is no aneurysm of either internal carotid artery. [place] and Major Peripheral Branches: There is no significant stenosis or occlusion. Apparent irregularity at the origin of small inferior branch from the left M1 segment is favored to be due to artifactual considering the presence of artifacts noted in the sagittal images (series 10, image 224). appearing origin of right posterior cerebral artery. Prominent left posterior communicating artery also noted. There is no aneurysm. Other Findings: Postsurgical changes from left craniotomy with surgical cavity in the left posterior sylvian region. Please see separate report for concurrent CT head for additional information. Procedure Note Jeremias Yanez MD - 02/26/2025 CLINICAL INDICATION: Neuro deficit, acute, stroke suspected TECHNIQUE: Head CTA: Axial images were obtained through the head during contrastbolus injection and multiplanar MIP images were created. Neck CTA: Axial images were obtained through the neck during boluscontrast injection and multiplanar reformatted and MIP images werecreated. 60 mL of Omnipaque 350 were administered intravenously. Total DLP (Dose-Length Product): 953.08 mGy.cm (accession [id number]),953.08 mGy.cm (accession [id number]). Please note: The reported valuerepresents the total of one or more individual components during the CTacquisition on this date and at this time, and as such, the same value mayappear in more than one CT report depending on the interpreting/reportingphysicians. COMPARISON: CTA head and neck, 02/16/2025 FINDINGS: Neck CTA: Diagnostic Quality: Degraded due to artifacts from dense venous contrastand dental amalgam/hardware. Aorta and Great Vessel Origins: The aortic arch has a normal branchingpattern. There is no definite significant stenosis of the origins of thegreat arteries of the neck. Right Cervical Carotid System: The right common carotid artery and itsorigin are patent. There is mild atherosclerotic plaque at the carotidbifurcation. There is a 0% stenosis at the bifurcation by NASCET criteria.The right internal carotid artery demonstrates a tortuous andretropharyngeal course. Redemonstration of mild irregularity/undulatingcontour of the cervical internal carotid artery which could be due tofibromuscular dysplasia, although component of atherosclerosis/tortuositycannot be excluded. There is no definite evidence of dissection orpseudoaneurysm of the right common and internal carotid arteries. Left Cervical Carotid System: The left common carotid artery and itsorigin are patent. There is mild atherosclerotic plaque at the carotidbifurcation. There is a 0% stenosis at the bifurcation by NASCET criteria.The left internal carotid artery demonstrates a retropharyngeal course.Redemonstration of mild irregularity/undulating contour of the cervicalinternal carotid artery which could be due to fibromuscular dysplasia,although component of atherosclerosis/tortuosity cannot be excluded. Thereis no definite evidence of dissection or pseudoaneurysm of the left commonand internal carotid arteries. Vertebral arteries: The origins appear patent. Redemonstration of moderatestenosis in the proximal right P2 segment and mild stenoses in the left [id number]. There is no definite evidence of a dissection, pseudoaneurysm, orhigh-grade stenosis of the vertebral arteries. Other Findings: Multilevel degenerative changes in the cervical spine.Similar wedge deformity of C4 vertebral body. Bilateral tonsilloliths. Head CTA: Diagnostic Quality: Adequate Vertebrobasilar System: No significant stenosis in the intraduralvertebral arteries and in the basilar artery. There is no aneurysm. Carotid Arteries: Right ICA: No significant atherosclerotic plaque or stenosis. Left ICA: No significant atherosclerotic plaque or stenosis. Other Findings: There is no aneurysm of either internal carotid artery. [place] and Major Peripheral Branches: There is no significantstenosis or occlusion. Apparent irregularity at the origin of smallinferior branch from the left M1 segment is favored to be due toartifactual considering the presence of artifacts noted in the sagittalimages (series 10, image 224). appearing origin of right posteriorcerebral artery. Prominent left posterior communicating artery also noted.There is no aneurysm. Other Findings: Postsurgical changes from left craniotomy with surgicalcavity in the left posterior sylvian region. Please see separate reportfor concurrent CT head for additional information. IMPRESSION: Neck CTA: No definite high-grade stenosis is present within the cervical carotid andvertebral systems. Redemonstration of moderate stenoses in right [id number]. Redemonstration of mild irregularity/undulating contour of the cervicalinternal carotid arteries which could be due to fibromuscular dysplasia,although component of atherosclerosis/tortuosity cannot be excluded. Head CTA: No definite significant intracranial arterial stenosis or aneurysm ispresent. CRITICAL RESULT: No. COMMUNICATION: Per this written report. Drafted by Jeremias Yanez MD on 02/26/2025 8:35 AM Final report signed by Jeremias Yanez MD on 02/26/2025 8:59 AM Anaya Felton [employer] IM[employer] CT PROCEDURES Final Resu lt * CT Angio Head (02/26/2025 8:10 AM EDT) Anatomical Region Laterality Modality [place] Computed Tomogr aphy Impressions 02/26/2025 8:59 AM EDT Neck CTA: No definite high-grade stenosis is present within the cervical carotid and vertebral systems. Redemonstration of moderate stenoses in right V2 segment. Redemonstration of mild irregularity/undulating contour of the cervical internal carotid arteries which could be due to fibromuscular dysplasia, although component of atherosclerosis/tortuosity cannot be excluded. Head CTA: No definite significant intracranial arterial stenosis or aneurysm is present. CRITICAL RESULT: No. COMMUNICATION: Per this written report. Drafted by Jeremias Yanez MD on 02/26/2025 8:35 AM Final report signed by Jeremias Yanez MD on 02/26/2025 8:59 AM Narrative 02/26/2025 8:59 AM EDT CLINICAL INDICATION: Neuro deficit, acute, stroke suspected TECHNIQUE: Head CTA: Axial images were obtained through the head during contrast bolus injection and multiplanar MIP images were created. Neck CTA: Axial images were obtained through the neck during bolus contrast injection and multiplanar reformatted and MIP images were created. 60 mL of Omnipaque 350 were administered intravenously. Total DLP (Dose-Length Product): 953.08 mGy.cm (accession [id number]), 953.08 mGy.cm (accession [id number]). Please note: The reported value represents the total of one or more individual components during the CT acquisition on this date and at this time, and as such, the same value may appear in more than one CT report depending on the interpreting/reporting physicians. COMPARISON: CTA head and neck, 02/16/2025 FINDINGS: Neck CTA: Diagnostic Quality: Degraded due to artifacts from dense venous contrast and dental amalgam/hardware. Aorta and Great Vessel Origins: The aortic arch has a normal branching pattern. There is no definite significant stenosis of the origins of the great arteries of the neck. Right Cervical Carotid System: The right common carotid artery and its origin are patent. There is mild atherosclerotic plaque at the carotid bifurcation. There is a 0% stenosis at the bifurcation by NASCET criteria. The right internal carotid artery demonstrates a tortuous and retropharyngeal course. Redemonstration of mild irregularity/undulating contour of the cervical internal carotid artery which could be due to fibromuscular dysplasia, although component of atherosclerosis/tortuosity cannot be excluded. There is no definite evidence of dissection or pseudoaneurysm of the right common and internal carotid arteries. Left Cervical Carotid System: The left common carotid artery and its origin are patent. There is mild atherosclerotic plaque at the carotid bifurcation. There is a 0% stenosis at the bifurcation by NASCET criteria. The left internal carotid artery demonstrates a retropharyngeal course. Redemonstration of mild irregularity/undulating contour of the cervical internal carotid artery which could be due to fibromuscular dysplasia, although component of atherosclerosis/tortuosity cannot be excluded. There is no definite evidence of dissection or pseudoaneurysm of the left common and internal carotid arteries. Vertebral arteries: The origins appear patent. Redemonstration of moderate stenosis in the proximal right P2 segment and mild stenoses in the left P2 segment. There is no definite evidence of a dissection, pseudoaneurysm, or high-grade stenosis of the vertebral arteries. Other Findings: Multilevel degenerative changes in the cervical spine. Similar wedge deformity of C4 vertebral body. Bilateral tonsilloliths. Head CTA: Diagnostic Quality: Adequate Vertebrobasilar System: No significant stenosis in the intradural vertebral arteries and in the basilar artery. There is no aneurysm. Carotid Arteries: Right ICA: No significant atherosclerotic plaque or stenosis. Left ICA: No significant atherosclerotic plaque or stenosis. Other Findings: There is no aneurysm of either internal carotid artery. [place] and Major Peripheral Branches: There is no significant stenosis or occlusion. Apparent irregularity at the origin of small inferior branch from the left M1 segment is favored to be due to artifactual considering the presence of artifacts noted in the sagittal images (series 10, image 224). appearing origin of right posterior cerebral artery. Prominent left posterior communicating artery also noted. There is no aneurysm. Other Findings: Postsurgical changes from left craniotomy with surgical cavity in the left posterior sylvian region. Please see separate report for concurrent CT head for additional information. Procedure Note Jeremias Yanez MD - 02/26/2025 CLINICAL INDICATION: Neuro deficit, acute, stroke suspected TECHNIQUE: Head CTA: Axial images were obtained through the head during contrastbolus injection and multiplanar MIP images were created. Neck CTA: Axial images were obtained through the neck during boluscontrast injection and multiplanar reformatted and MIP images werecreated. 60 mL of Omnipaque 350 were administered intravenously. Total DLP (Dose-Length Product): 953.08 mGy.cm (accession [id number]),953.08 mGy.cm (accession [id number]). Please note: The reported valuerepresents the total of one or more individual components during the CTacquisition on this date and at this time, and as such, the same value mayappear in more than one CT report depending on the interpreting/reportingphysicians. COMPARISON: CTA head and neck, 02/16/2025 FINDINGS: Neck CTA: Diagnostic Quality: Degraded due to artifacts from dense venous contrastand dental amalgam/hardware. Aorta and Great Vessel Origins: The aortic arch has a normal branchingpattern. There is no definite significant stenosis of the origins of thegreat arteries of the neck. Right Cervical Carotid System: The right common carotid artery and itsorigin are patent. There is mild atherosclerotic plaque at the carotidbifurcation. There is a 0% stenosis at the bifurcation by NASCET criteria.The right internal carotid artery demonstrates a tortuous andretropharyngeal course. Redemonstration of mild irregularity/undulatingcontour of the cervical internal carotid artery which could be due tofibromuscular dysplasia, although component of atherosclerosis/tortuositycannot be excluded. There is no definite evidence of dissection orpseudoaneurysm of the right common and internal carotid arteries. Left Cervical Carotid System: The left common carotid artery and itsorigin are patent. There is mild atherosclerotic plaque at the carotidbifurcation. There is a 0% stenosis at the bifurcation by NASCET criteria.The left internal carotid artery demonstrates a retropharyngeal course.Redemonstration of mild irregularity/undulating contour of the cervicalinternal carotid artery which could be due to fibromuscular dysplasia,although component of atherosclerosis/tortuosity cannot be excluded. Thereis no definite evidence of dissection or pseudoaneurysm of the left commonand internal carotid arteries. Vertebral arteries: The origins appear patent. Redemonstration of moderatestenosis in the proximal right P2 segment and mild stenoses in the left [id number]. There is no definite evidence of a dissection, pseudoaneurysm, orhigh-grade stenosis of the vertebral arteries. Other Findings: Multilevel degenerative changes in the cervical spine.Similar wedge deformity of C4 vertebral body. Bilateral tonsilloliths. Head CTA: Diagnostic Quality: Adequate Vertebrobasilar System: No significant stenosis in the intraduralvertebral arteries and in the basilar artery. There is no aneurysm. Carotid Arteries: Right ICA: No significant atherosclerotic plaque or stenosis. Left ICA: No significant atherosclerotic plaque or stenosis. Other Findings: There is no aneurysm of either internal carotid artery. [place] and Major Peripheral Branches: There is no significantstenosis or occlusion. Apparent irregularity at the origin of smallinferior branch from the left M1 segment is favored to be due toartifactual considering the presence of artifacts noted in the sagittalimages (series 10, image 224). appearing origin of right posteriorcerebral artery. Prominent left posterior communicating artery also noted.There is no aneurysm. Other Findings: Postsurgical changes from left craniotomy with surgicalcavity in the left posterior sylvian region. Please see separate reportfor concurrent CT head for additional information. IMPRESSION: Neck CTA: No definite high-grade stenosis is present within the cervical carotid andvertebral systems. Redemonstration of moderate stenoses in right [id number]. Redemonstration of mild irregularity/undulating contour of the cervicalinternal carotid arteries which could be due to fibromuscular dysplasia,although component of atherosclerosis/tortuosity cannot be excluded. Head CTA: No definite significant intracranial arterial stenosis or aneurysm ispresent. CRITICAL RESULT: No. COMMUNICATION: Per this written report. Drafted by Jeremias Yanez MD on 02/26/2025 8:35 AM Final report signed by Jeremias Yanez MD on 02/26/2025 8:59 AM Anaya Felton [employer] IM[employer] CT PROCEDURES Final Resu lt * CT Head wo IV Contrast (02/26/2025 7:59 AM EDT) Anatomical Region Laterality Modality Head Computed Tomogra phy Impressions 02/26/2025 8:34 AM EDT Postsurgical changes from left craniotomy with surgical cavity in the left posterior sylvian region. Apparent mildly decreased pneumocephalus in left anterior frontal region. Left posterior sylvian surgical cavity with associated findings as mentioned above. However evaluation of the surgical bed is suboptimal on this CT; if necessary follow-up imaging with MRI study may be considered for further assessment. Areas of hypodensity adjacent to surgical cavity in left temporal, frontal and insular/perisylvian regions may represent postsurgical change/edema although possibility of superimposed ischemic foci cannot be excluded. However no definite acute large territorial infarction noted. No large intracranial hematoma noted. Mass effect with slightly decreased rightward midline shift of about 2.5 mm. CRITICAL RESULT: No. COMMUNICATION: Per this written report. Drafted by Jeremias Yanez MD on 02/26/2025 8:17 AM Final report signed by Jeremias Yanez MD on 02/26/2025 8:34 AM Narrative 02/26/2025 8:34 AM EDT CLINICAL INDICATION: new right sided pronator drift TECHNIQUE: Spiral axial CT images of the head were obtained without contrast administration. Total DLP (Dose-Length Product): 769.46 mGy.cm. Please note: The reported value represents the total of one or more individual components during the CT acquisition on this date and at this time, and as such, the same value may appear in more than one CT report depending on the interpreting/reporting physicians. COMPARISON: MRI head 02/25/2025 CT head 02/16/2025 FINDINGS: Diagnostic Quality: Adequate. Redemonstration of postsurgical changes from left craniotomy. Redemonstration of left convexity extra-axial collection containing fluid, blood, surgical material and pneumocephalus. Suggestion of mildly decreased pneumocephalus in the left anterior frontal region, now about 14 mm in thickness, previously about 17 mm. Additional scattered small foci of pneumocephalus noted. There is again surgical cavity in the left posterior sylvian region which appears to contain predominantly surgical material although with probably small amount of pneumocephalus as well as small amount of likely blood products. Redemonstration of mass effect with effacement of left cortical sulci than partial effacement of the left lateral ventricle. Appearance interval decreased rightward midline shift of about 2.5 mm as on image 16 of series 2, previously about 4 mm. No hydrocephalus. Apparent mild hyperdensity adjacent to the inferior aspect of the surgical cavity have appearance somewhat similar to the preoperative CT and hence raising concern for small amount of residual lesion although this is suboptimally evaluated in this CT (series 2, images 12-15). Areas of hypodensity adjacent to the surgical cavity in the left temporal, frontal and insular/perisylvian regions may represent postsurgical change/edema although possibility of superimposed ischemic foci cannot be excluded. However no definite acute large territorial infarction is noted. No large intracranial hematoma noted. Soft Tissues: Postsurgical changes from left craniotomy. Left scalp soft tissue swelling and emphysema. Cutaneous gaetano. Skull: Left craniotomy changes Sinuses and Mastoids: The visualized portions of the paranasal sinuses are clear. The mastoid air cells are clear. Procedure Note Jeremias Yanez MD - 02/26/2025 CLINICAL INDICATION: new right sided pronator drift TECHNIQUE: Spiral axial CT images of the head were obtained without contrastadministration. Total DLP (Dose-Length Product): 769.46 mGy.cm. Please note: The reportedvalue represents the total of one or more individual components during theCT acquisition on this date and at this time, and as such, the same valuemay appear in more than one CT report depending on theinterpreting/reporting physicians. COMPARISON: MRI head 02/25/2025 CT head 02/16/2025 FINDINGS: Diagnostic Quality: Adequate. Redemonstration of postsurgical changes from left craniotomy.Redemonstration of left convexity extra-axial collection containing fluid,blood, surgical material and pneumocephalus. Suggestion of mildlydecreased pneumocephalus in the left anterior frontal region, now about 14mm in thickness, previously about 17 mm. Additional scattered small fociof pneumocephalus noted. There is again surgical cavity in the left posterior sylvian region whichappears to contain predominantly surgical material although with probablysmall amount of pneumocephalus as well as small amount of likely bloodproducts. Redemonstration of mass effect with effacement of left cortical sulci thanpartial effacement of the left lateral ventricle. Appearance intervaldecreased rightward midline shift of about 2.5 mm as on image 16 of series2, previously about 4 mm. No hydrocephalus. Apparent mild hyperdensityadjacent to the inferior aspect of the surgical cavity have appearancesomewhat similar to the preoperative CT and hence raising concern forsmall amount of residual lesion although this is suboptimally evaluated inthis CT (series 2, images 12-15). Areas of hypodensity adjacent to the surgical cavity in the left temporal,frontal and insular/perisylvian regions may represent postsurgicalchange/edema although possibility of superimposed ischemic foci cannot beexcluded. However no definite acute large territorial infarction is noted.No large intracranial hematoma noted. Soft Tissues: Postsurgical changes from left craniotomy. Left scalp softtissue swelling and emphysema. Cutaneous gaetano. Skull: Left craniotomy changes Sinuses and Mastoids: The visualized portions of the paranasal sinuses areclear. The mastoid air cells are clear. IMPRESSION: Postsurgical changes from left craniotomy with surgical cavity in the leftposterior sylvian region. Apparent mildly decreased pneumocephalus in leftanterior frontal region. Left posterior sylvian surgical cavity with associated findings asmentioned above. However evaluation of the surgical bed is suboptimal onthis CT; if necessary follow-up imaging with MRI study may be consideredfor further assessment. Areas of hypodensity adjacent to surgical cavity in left temporal, frontaland insular/perisylvian regions may represent postsurgical change/edemaalthough possibility of superimposed ischemic foci cannot be excluded.However no definite acute large territorial infarction noted. No largeintracranial hematoma noted. Mass effect with slightly decreased rightward midline shift of about 2.5mm. CRITICAL RESULT: No. COMMUNICATION: Per this written report. Drafted by Jeremias Yanez MD on 02/26/2025 8:17 AM Final report signed by Jeremias Yanez MD on 02/26/2025 8:34 AM us Ned Menendez MD IMG CT PROCEDURES Final Result * Phosphorus, Plasma (02/26/2025 4:23 AM EDT) Phosphorus, Plasma 3.5 2.5 - 4.5 mg/dL 02/26/2025 4:57 AM EDT [facility] Blood Venous blood specimen / Unknown Venipuncture / Unknown 02/26/2025 4:23 AM EDT 02/26/2025 4:29 AM EDT Anaya M Jose Francisco AUTOCUT[employer] LAB BLOOD ORDERABLES Final R esult Performing Organization Address [facility]/ZIP Co de Phone Number [facility] [address] [place] [address] * Magnesium, Plasma (02/26/2025 4:23 AM EDT) Magnesium, Plasma 2.0 1.9 - 2.4 mg/dL 02/26/2025 4:57 AM EDT [facility] Blood Venous blood specimen / Unknown Venipuncture / Unknown 02/26/2025 4:23 AM EDT 02/26/2025 4:29 AM EDT [facility] [employer] LAB BLOOD ORDERABLES Final R esult Performing Organization Address City/[facility]/ZIP Co de Phone Number [facility] [address] [place] [address] * (ABNORMAL) Basic Metabolic Panel, Plasma (02/26/2025 4:23 AM EDT) Glucose, Plasma 133(H) 74 - 99 mg/dL 02/26/2025 4:57 AM EDT [facility] BUN, Plasma 17 8 - 23 mg/dL 02/26/2025 4:57 AM EDT [facility] Creatinine, Plasma 0.64 0.60 - 1.10 mg/dL 02/26/2025 4:57 AM EDT [facility] BUN/Creatinine Ratio 27 02/26/2025 4:57 AM EDT [facility] Sodium, Plasma 129(L) 136 - 145 mmol/L 02/26/2025 4:57 AM EDT [facility] Potassium, Plasma 4.5 3.6 - 4.9 mmol/L 02/26/2025 4:57 AM EDT [facility] Chloride, Plasma 97 97 - 107 mmol/L 02/26/2025 4:57 AM EDT [facility] CO2, Plasma 24 22 - 29 mmol/L 02/26/2025 4:57 AM EDT [facility] Anion Gap 8 6 - 16 mmol/L 02/26/2025 4:57 AM EDT [facility] Total Calcium, Plasma 9.2 8.9 - 10.2 mg/dL 02/26/2025 4:57 AM EDT [facility] eGFRcr 97.6 mL/min/1.7 3m*2 02/26/2025 4:57 AM EDT [facility] Comment:Reported eGFRcr in m L/min/1.73m2 is based the CKD-EPI 2020 equation that does not use a race coefficient. Blood Venous blood specimen / Unknown Venipuncture / Unknown 02/26/2025 4:23 AM EDT 02/26/2025 4:29 AM EDT us Anaya Felton APRN LAB BLOOD ORDERABLES Final R esult [facility] [address] [place] [address] * (ABNORMAL) CBC W/O Differential (02/26/2025 4:23 AM EDT) WBC Count 15.84(H) 3.70 - 10.30 10*3/uL LAB HEMATOLOGY METHOD 02/26/2025 4:44 AM EDT [facility] RBC Count 4.27 3.90 - 5.20 10*6/uL LAB HEMATOLOGY METHOD 02/26/2025 4:44 AM EDT [facility] HGB 12.1 11.2 - 15.7 g/dL LAB HEMATOLOGY METHOD 02/26/2025 4:44 AM EDT [facility] HCT 35.8 34.0 - 45.0 % LAB HEMATOLOGY METHOD 02/26/2025 4:44 AM EDT [facility] Platelet Count 332 155 - 369 10*3/uL LAB HEMATOLOGY METHOD 02/26/2025 4:44 AM EDT [facility] MCV 84 79 - 98 fL LAB HEMATOLOGY METHOD 02/26/2025 4:44 AM EDT [facility] MCH 28.3 26.0 - 32.0 pg LAB HEMATOLOGY METHOD 02/26/2025 4:44 AM EDT [facility] MCHC 33.8 30.7 - 35.5 g/dL LAB HEMATOLOGY METHOD 02/26/2025 4:44 AM EDT [facility] RDW 13.2 11.5 - 14.5 % LAB HEMATOLOGY METHOD 02/26/2025 4:44 AM EDT [facility] MPV 9.1 8.8 - 12.5 fL LAB HEMATOLOGY METHOD 02/26/2025 4:44 AM EDT [facility] nRBC 0.0 <=0.0 per 100 WBCs LAB HEMATOLOGY METHOD 02/26/2025 4:44 AM EDT [facility] Blood Venous blood specimen / Unknown Venipuncture / Unknown 02/26/2025 4:23 AM EDT 02/26/2025 4:29 AM EDT us Anaya Felton AUTOCUTTER LAB BLOOD ORDERABLES Final R esult [facility] [address] [place] [address] * (ABNORMAL) Basic metabolic panel (02/25/2025 12:14 PM EDT) Glucose, Plasma 137(H) 74 - 99 mg/dL 02/25/2025 12:50 PM EDT [facility] BUN, Plasma 21 8 - 23 mg/dL 02/25/2025 12:50 PM EDT [facility] Creatinine, Plasma 0.62 0.60 - 1.10 mg/dL 02/25/2025 12:50 PM EDT [facility] BUN/Creatinine Ratio 34 02/25/2025 12:50 PM EDT [facility] Sodium, Plasma 129(L) 136 - 145 mmol/L 02/25/2025 12:50 PM EDT [facility] Potassium, Plasma 4.5 3.6 - 4.9 mmol/L 02/25/2025 12:50 PM EDT [facility] Chloride, Plasma 97 97 - 107 mmol/L 02/25/2025 12:50 PM EDT [facility] CO2, Plasma 22 22 - 29 mmol/L 02/25/2025 12:50 PM EDT [facility] Anion Gap 10 6 - 16 mmol/L 02/25/2025 12:50 PM EDT [facility] Total Calcium, Plasma 9.3 8.9 - 10.2 mg/dL 02/25/2025 12:50 PM EDT [facility] eGFRcr 98.4 mL/min/1.7 3m*2 02/25/2025 12:50 PM EDT [facility] Comment:Reported eGFRcr in m L/min/1.73m2 is based the CKD-EPI 2020 equation that does not use a race coefficient. Blood Venous blood specimen / Unknown Venipuncture / Unknown 02/25/2025 12:14 PM EDT 02/25/2025 12:19 PM EDT us Ede Ruiz MD LAB BLOOD ORDERABLES Final R esult [facility] [address] [place] [address] * MR Head w and wo IV Contrast (02/25/2025 4:40 AM EDT) Anatomical Region Laterality Modality Head Magnetic Resonan ce Impressions 02/25/2025 10:08 AM EDT 1. There are the interval operative changes from the left craniotomy and tumor resection. There is a moderate amount of extra-axial fluid, blood and air with compression of the left hemisphere and an increase in the subfalcine herniation and shift of midline structures towards the right since the preoperative study. This can be followed. 2. There are areas which likely represent residual tumor around the operative bed, greatest along the inferior aspect, with additional areas of peripheral enhancement around much of the operative bed, varying in thickness. 3. There is again what is concerning for nonenhancing tumor in the left lentiform nucleus and left thalamus although some of this could be due to edema. 4. Apparent enhancement within the right internal auditory canal can be followed. CRITICAL RESULT: No. COMMUNICATION: Per this written report. Drafted by Marcus Elias MD on 02/25/2025 9:38 AM Final report signed by Marcus Elias MD on 02/25/2025 10:08 AM Narrative 02/25/2025 10:08 AM EDT CLINICAL INDICATION: Brain/[employer] neoplasm, assess treatment response. Postoperative from craniectomy for tumor resection. TECHNIQUE: Multiplanar multiecho sequences were performed through the brain utilizing T1 and T2 weighting, as well as either axial susceptibility weighted or gradient echo sequences, and axial diffusion weighted images. A coronal post-contrast 1mm thick T1-weighted 3D MP RAGE sequence was performed and multiplanar reformatted images were created. Imaging was performed with and without contrast administration: 11.5 mL of Gadavist. COMPARISON: Localization study from February 22 and diagnostic brain MR from February 16, 2025. Additional older studies. FINDINGS: Diagnostic Quality: Mildly motion degraded. The brain volume is normal for the patient's reported age of 64 years. There've been interval operative changes from the left craniotomy. There is a moderate amount of extra-axial fluid, blood and air, with their thickest nondependently in the left frontal region measuring up to 1.7 cm in maximum thickness. There is compression of the left hemisphere, with the sulci smaller than on the prior study, and the left lateral ventricle remains smaller than the right, being moderately compressed, mildly worsened. Subfalcine herniation and displacement of midline structures towards the right is now approximately 4 mm, slightly increased. The blood component is greatest extra-axially in the left temporal and sylvian regions. A small amount of material with T1 shortening around the peripheral aspect of the left sylvian region is likely related to blood. Hyperintensity on the FLAIR images within the left convexity sulci is probably due to the compression of the brain and vessels. There is the operative bed in the region of the previously seen left posterior sylvian mass. There is air, blood and packing material present within the operative cavity. There has been resection of much of the enhancing component which was previously seen. However there is thin enhancement remaining around much of the operative bed, with enhancement somewhat thicker along the inferior aspect, with it being fairly faint on the thin section postcontrast images, and somewhat more evident on the sagittal postcontrast images such as on images 19 and 20 series 15. There are also somewhat nodular areas of enhancement around the periphery of the operative bed, with one of the thicker area superiorly and medially on image 76 series 1018. These areas are concerning for residual enhancing tumor. Superficial enhancement over the left hemisphere is presumably postoperative. On the FLAIR and T2-weighted images, there is mildly to moderately hyperintense tissue around the operative bed, corresponding to these areas, again greatest inferiorly (image 11 series 6 and 9), with signal intensity similar to the original tumor. There is also again a hyperintensity extending into the left lentiform nucleus, greatest along its posterior lateral aspect and superiorly on images 13 and 14 series 6, mildly more evident than on prior study, as well as into the left thalamus such as on images 13 and 14 series 6 and 9. These are concerning for areas of nonenhancing tumor. There is again some restricted diffusion related to the areas around the operative bed which may be related to a combination of tumor and operative changes. There is greater susceptibility artifact within the left sylvian region and operative bed as well as extra-axially, related to the combination of blood and air. Enhancement within the superior aspect of the right internal auditory canal on the thin section postcontrast images is more evident than on prior, and may be related to vessels although could be enhancement of the facial nerve. Vascular Flow Voids: Normal. Paranasal Sinuses and Mastoid Air Cells: Minimal ethmoid sinus mucosal thickening. Orbits: The optic nerve sheaths are mildly dilated, which are probably related to the operative changes and increased intracranial pressure. Extracranial Findings: There are the scalp operative changes with air, fluid and edema and artifact from skin gaetano. Craniocervical Junction and Skull Base: No tonsillar ectopia or mass is present. There are degenerative changes of the spine with the spinal cord possibly mildly compressed at the C3-4 level. Procedure Note Marcus Elias MD - 02/25/2025 CLINICAL INDICATION: Brain/[employer] neoplasm, assess treatment response. Postoperative fromcraniectomy for tumor resection. TECHNIQUE: Multiplanar multiecho sequences were performed through the brain utilizingT1 and T2 weighting, as well as either axial susceptibility weighted orgradient echo sequences, and axial diffusion weighted images. A coronalpost-contrast 1mm thick T1- weighted 3D MP RAGE sequence was performed andmultiplanar reformatted images were created. Imaging was performed withand without contrast administration: 11.5 mL of Gadavist. COMPARISON: Localization study from February 22 and diagnostic brain MR from February 16, 2025.Additional older studies. FINDINGS: Diagnostic Quality: Mildly motion degraded. The brain volume is normal for the patient's reported age of 64 years. There've been interval operative changes from the left craniotomy. Thereis a moderate amount of extra-axial fluid, blood and air, with theirthickest nondependently in the left frontal region measuring up to 1.7 cmin maximum thickness. There is compression of the left hemisphere, withthe sulci smaller than on the prior study, and the left lateral ventricleremains smaller than the right, being moderately compressed, mildlyworsened. Subfalcine herniation and displacement of midline structurestowards the right is now approximately 4 mm, slightly increased. The bloodcomponent is greatest extra-axially in the left temporal and sylvianregions. A small amount of material with T1 shortening around theperipheral aspect of the left sylvian region is likely related to blood.Hyperintensity on the FLAIR images within the left convexity sulci isprobably due to the compression of the brain and vessels. There is the operative bed in the region of the previously seen leftposterior sylvian mass. There is air, blood and packing material presentwithin the operative cavity. There has been resection of much of theenhancing component which was previously seen. However there is thinenhancement remaining around much of the operative bed, with enhancementsomewhat thicker along the inferior aspect, with it being fairly faint onthe thin section postcontrast images, and somewhat more evident on thesagittal postcontrast images such as on images 19 and 20 series 15. Thereare also somewhat nodular areas of enhancement around the periphery of theoperative bed, with one of the thicker area superiorly and medially onimage 76 series 1018. These areas are concerning for residual enhancingtumor. Superficial enhancement over the left hemisphere is presumablypostoperative. On the FLAIR and T2-weighted images, there is mildly to moderatelyhyperintense tissue around the operative bed, corresponding to theseareas, again greatest inferiorly (image 11 series 6 and 9), with signalintensity similar to the original tumor. There is also again ahyperintensity extending into the left lentiform nucleus, greatest alongits posterior lateral aspect and superiorly on images 13 and 14 series 6,mildly more evident than on prior study, as well as into the left thalamussuch as on images 13 and 14 series 6 and 9. These are concerning for areasof nonenhancing tumor. There is again some restricted diffusion related tothe areas around the operative bed which may be related to a combinationof tumor and operative changes. There is greater susceptibility artifact within the left sylvian regionand operative bed as well as extra-axially, related to the combination ofblood and air. Enhancement within the superior aspect of the right internal auditorycanal on the thin section postcontrast images is more evident than onprior, and may be related to vessels although could be enhancement of thefacial nerve. Vascular Flow Voids: Normal. Paranasal Sinuses and Mastoid Air Cells: Minimal ethmoid sinus mucosalthickening. Orbits: The optic nerve sheaths are mildly dilated, which are probablyrelated to the operative changes and increased intracranial pressure. Extracranial Findings: There are the scalp operative changes with air,fluid and edema and artifact from skin gaetano. Craniocervical Junction and Skull Base: No tonsillar ectopia or mass ispresent. There are degenerative changes of the spine with the spinal cordpossibly mildly compressed at the C3-4 level. IMPRESSION: 1. There are the interval operative changes from the left craniotomy andtumor resection. There is a moderate amount of extra-axial fluid, bloodand air with compression of the left hemisphere and an increase in thesubfalcine herniation and shift of midline structures towards the rightsince the preoperative study. This can be followed. 2. There are areas which likely represent residual tumor around theoperative bed, greatest along the inferior aspect, with additional areasof peripheral enhancement around much of the operative bed, varying inthickness. 3. There is again what is concerning for nonenhancing tumor in the leftlentiform nucleus and left thalamus although some of this could be due toedema. 4. Apparent enhancement within the right internal auditory canal can befollowed. CRITICAL RESULT: No. COMMUNICATION: Per this written report. Drafted by Marcus Elias MD on 02/25/2025 9:38 AM Final report signed by Marcus Elias MD on 02/25/2025 10:08 AM us Sanchez Zaldivar MD IMG MRI PROCEDURES Final Resul t * (ABNORMAL) POCT glucose meter (02/25/2025 12:08 AM EDT) POCT Glucose 143(H) 74 - 99 mg/dL 02/25/2025 12:10 AM EDT [facility] Comment:Accuracy of a glucos e result obtained from a capillary whole blood specimen relies upon adequate, non-compromised capillary blood flow. If the capillary glucose result is not consistent with the patient's clinical signs and symptoms, glucose testing should be repeated with either an arterial or venous sample on the glucometer or sent to the main labortory for testing. Comment 02/25/2025 12:[address] [facility] [employer] ID Edwige Valdez 02/26/20 12:10 AM EDT [employer] [facility] Device ID [id number] 02/25/2025 12:[address] [facility] Specimen Type POC Capillary 02/25/2025 12:[address] [facility] Blood Capillary blood specimen / Unknown 02/25/2025 12:08 AM EDT 02/25/2025 12:10 AM EDT Ned Menendez MD LAB POINT OF CARE TE ST DOCKED DEVICE UNSOLICITED RESULTS Final Result [facility] [address] [place] [address] * FISH, Paraffin 1p/19Q (02/24/2025 9:04 PM EDT) Specimen Adequacy Adequate 03/11/2025 1:32 PM EDT [facility] Clinical Indication 03/11/2025 1:32 PM EDT [facility] Comment: Pre-op diagnosis: Brain mass [G93.89] Interpretation Tissue type: Brain Pathology Case #: [id number] Block A3 FISH studies are NEGATIVE for 1p36/19q13 deletion(s). Chromosome 1p: Chromosome 19q: Deletion is NOT detected. Deletion is NOT detected. The ratio of 1p36/1q25 = 0.98 The ratio of 19q13/19p13 = 1.06 % nuclei showing loss of 1p = 10.0% % nuclei showing loss of 19q = 15.0% Chromosome 1 polysomy rate = 21.7% Chromosome 19 polysomy rate = 55.0% Polysomy: polysomy is more common in high- than low-grade gliomas, but data on its prognostic relevance independent of WHO grade are conflicting. Some studies show chromosomes 1/19 polysomy may be potential prognostic factors which confer unfavorable outcomes (Jonathon H et al. J Neuroncol 2014;120(1):131.). Polysomy exceeding 30% has been shown to correlate with reduced progression-free survival compared to co-deleted oligodendrogliomas without polysomy (Aleksandra CL Neurosurg Focus 2005;19(5):E2;Demetris villalta C et al. Brain Pathol 2008;18:360-9; Krishna ANDRES et al. JNEN 2003;62(1):1118.). 03/11/2025 1:32 PM EDT [facility] nuc yesenia(MEGF6,TP73)x1~4, (ABL2,ANGPTL1)x1~4[6 0]/(MAN2B1,ZNF44)x1~ 5,(CRX,GLTSCR1)x1~5[ 60] Methodology: Fluorescence in situ hybridization (FISH) was performed on a paraffin-embedded 4~5 m cut unstained tissue slide using 4 Vysis/Abbot fluorescent labeled probes which hybridize to the following chromosomal regions: MEGF6/TP73(1p36), ABL2/ANGPTL1(1q25), MAN2B1/ZNF44(19p13), and CRX/GLTSCR1(19q13). Unless otherwise indicated only invasive tumor marked by qualified Medical Pathologist is analyzed independently using a manual scoring system by at least two qualified technologists. Control specimens were processed simultaneously with each batch of 1p36/19q13 specimens using the same method and results were as expected. At least 60 cells were analyzed, and claims representative images were captured and stored using [employer] software ([employer].). Cutoff ratios are <0.75 for both probe pairs, with relative deletion seen in at least 20% of tumor cells. Results are reported as the ratio of total 1p to 1q signals and 19q to 19p signals. A ratio between 0.75 and 1.2 is considered normal and <0.75 is considered deletion for 1p or 19q. 03/11/2025 1:32 PM EDT [facility] REFERENCES Adrienne JAMISON et al. Clin Oncol 2015;17(8):445. Van den Bent MJ et al., Neuro-Oncology 2017;19(5):614. 03/11/2025 1:32 PM EDT [facility] Disclaimer This test was developed and its performance characteristics determined by the [facility]. It has not been cleared or approved by the US Food and Drug Administration. The FDA does not require this test to go through premarket FDA review. This test is used for clinical purposes. It should not be regarded as investigational or for research. This laboratory is certified under the Clinical Laboratory Improvement Amendments (CLIA) as qualified to perform high complexity clinical laboratory testing. This assay has not been validated on decalcified tissues. Results should be interpreted with caution given the likelihood of false negativity on decalcified specimens. Molecular diagnostics test results may sometimes conflict with the histological interpretation. In such cases, the results should be integrated with the entire clinical and radiologic profile. False positive and false negative results may occur due to the nature of the specimen and probe. 03/11/2025 1:32 PM EDT [facility] Pathologist Signature Reviewed by: Paulo Peraza 03/11/2025 1:32 PM EDT [facility] Tissue 02/24/2025 9:04 PM EDT 03/05/2025 10:58 AM EDT Sanchez Zaldivar MD LAB CYTOGENETICS ORDERABLES Fi nal Result [facility] [address] [place] [address] * Surgical Pathology Exam (02/24/2025 9:04 PM EDT) Case Report Surgical Pathology Case: [id number] Authorizing Provider: Sanchez Zaldivar MD Collected: 02/24/20252103 Ordering Location: [facility] A OPERATING ROOM Received: 02/25/2025 0899 Pathologist: Kayla Costello MD Specimens: A) - Brain, brain tumor sonopet contents B) - Other (specify site), tumor in saline 03/19/2025 9:52 AM EDT [facility] Correction History Reason for amendment: molecular testing (FISH and Caris) allowed for further subclassification. Drs. Zaldivar and Romulo were notified of the changes to the final report via secure communication by Elena Larios MD on 03/19/2025 . 03/19/2025 9:52 AM EDT [facility] Comment:These results have b een appended to a previously final verified report. 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 - HISTOLOGIC DIAGNOSIS: GLIOBLASTOMA - DISTRIBUTION DISTRICT SUPERVISOR WHO HISTOLOGIC GRADE: 4 - MOLECULAR INFORMATION: - IDH wildtype (IHC, Caris), ATRX intact (IHC) - Positive for: EGFR amplification and mutation, TERT promoter mutation, +7/-10, CDKN2A/B loss - MGMT promoter methylation: positive 03/19/2025 9:52 AM EDT [facility] Amendment electronically signed by Elena Larios MD on 03/19/2025 at 0952 EDT at 1545 EDT Comment:Corrected result: Pr eviously reported as [Previous value contains rich text formatting which cannot be displayed here] (see Result History) on 03/02/2025 at 1545 EDT. Clinical Information Brain mass [G93.89] Imaging: heterogeneously enhancing mass in the left insula and temporal lobe ... appearance is most consistent with primary brain neoplasm such as glioblastoma or other high-grade glioma. 03/19/2025 9:52 AM EDT [facility] Microscopic Description IHC: A2-2 IDH-1 negatve (wild type) A3-5 ATRX positive (wild type) All controls show appropriate reactivity. All immunohistochemist ry, in situ hybridization, and histochemical tests were developed by and are performed at the [facility], [address] [place] [address]. All tests reported here, except those addressing HER2 (breast) and PD-L1 expression as predictive markers, have not been cleared by or approved by the US Food and Drug Administration (FDA). The FDA has determined that such clearance or approval is not necessary. The laboratory is regulated under CLIA as qualified to perform high-complexity testing. The tests are used for clinical purposes. They should not be regarded as investigational or for research. This assay has not been validated on decalcified tissues. Results should be interpreted with caution given the likelihood of false negativity on decalcified specimens. 03/19/2025 9:52 AM EDT [facility] Gross Description A. BRAIN TUMOR SONOPET CONTENTS Received fresh and placed in formalin labeled brain tumor Sonopet contents are multiple pieces of pink-garcia soft tissue measuring 4.0 x 3.0 x 0.4 cm in aggregate. Entirely submitted in cassettes A1-A3. Cold Time: 11h 20m Rosibel Stevens B. TUMOR IN SALINE Received fresh and placed in formalin labeled tumor are multiple pieces of pink-garcia soft tissue measuring 2.4 x 2.2 x 0.4 cm in aggregate. Entirely submitted in cassette A1. Cold Time: 9h 02m Rosibel Stevens 03/19/2025 9:52 AM EDT [facility] Note: A resident was involved in the service. I attest I examined the relevant preparations for the specimens and confirmed the diagnosis or interpretation. 03/19/2025 9:52 AM EDT [facility] Tissue Brain structure / Unknown 02/24/2025 9:04 PM EDT 02/25/2025 8:24 AM EDT Comment:Pre-op diagnosis: Brain mass [G93.89] Tissue specimen (specimen) Topography unknown / Unknown 02/24/2025 11:22 PM EDT 02/25/2025 8:24 AM EDT Comment:Pre-op diagnosis: Brain mass [G93.89] us Sanchez Zaldivar MD LAB PATHOLOGY ORDERABLES Edite d Result - Final [facility] [address] [place] [address] * (ABNORMAL) Blood gas, arterial (02/24/2025 7:23 PM EDT) pH, Arterial 7.39 7.31 - 7.42 LAB HEMATOLOGY METHOD 02/24/2025 7:34 PM EDT [facility] pCO2, Arterial 33(L) 35 - 48 mmHg LAB HEMATOLOGY METHOD 02/24/2025 7:34 PM EDT [facility] pO2, Arterial 119 >80 mmHg LAB HEMATOLOGY METHOD 02/24/2025 7:34 PM EDT [facility] SO2, Measured, Arterial 100(H) 94 - 98 % LAB HEMATOLOGY METHOD 02/24/2025 7:34 PM EDT [facility] Base Excess, Arterial -4.3(L) -2.0 - 3.0 mmol/L LAB HEMATOLOGY METHOD 02/24/2025 7:34 PM EDT [facility] Bicarbonate, Calculated, Arterial 20(L) 22 - 26 mmol/L LAB HEMATOLOGY METHOD 02/24/2025 7:34 PM EDT [facility] Hematocrit, Whole Blood 37.4 34.0 - 45.0 % LAB HEMATOLOGY METHOD 02/24/2025 7:34 PM EDT [facility] Sodium, Whole Blood 129(L) 136 - 145 mmol/L LAB HEMATOLOGY METHOD 02/24/2025 7:34 PM EDT [facility] Potassium, Whole Blood 3.6 3.6 - 4.9 mmol/L LAB HEMATOLOGY METHOD 02/24/2025 7:34 PM EDT [facility] Chloride, Whole Blood 99 97 - 107 mmol/L LAB HEMATOLOGY METHOD 02/24/2025 7:34 PM EDT [facility] Glucose, Whole Blood 126(H) 74 - 99 mg/dL LAB HEMATOLOGY METHOD 02/24/2025 7:34 PM EDT [facility] Ionized Calcium, Whole Blood 4.6 4.6 - 5.1 mg/dL LAB HEMATOLOGY METHOD 02/24/2025 7:34 PM EDT [facility] Lactate, Arterial, Whole Blood 1.4 0.5 - 1.6 mmol/L LAB HEMATOLOGY METHOD 02/24/2025 7:34 PM EDT [facility] Blood Arterial blood specimen / Unknown Arterial Line / Unknown 02/24/2025 7:23 PM EDT 02/24/2025 7:33 PM EDT Alessandro Medina DO LAB BLOOD ORDERABLES Final Res ult [facility] [address] [place] [address] * (ABNORMAL) Basic metabolic panel (02/24/2025 6:42 AM EDT) Glucose, Plasma 126(H) 74 - 99 mg/dL 02/24/2025 7:17 AM EDT [facility] BUN, Plasma 26(H) 8 - 23 mg/dL 02/24/2025 7:17 AM EDT [facility] Creatinine, Plasma 0.63 0.60 - 1.10 mg/dL 02/24/2025 7:17 AM EDT [facility] BUN/Creatinine Ratio 41 02/24/2025 7:17 AM EDT [facility] Sodium, Plasma 131(L) 136 - 145 mmol/L 02/24/2025 7:17 AM EDT [facility] Potassium, Plasma 4.7 3.6 - 4.9 mmol/L 02/24/2025 7:17 AM EDT [facility] Chloride, Plasma 98 97 - 107 mmol/L 02/24/2025 7:17 AM EDT [facility] CO2, Plasma 23 22 - 29 mmol/L 02/24/2025 7:17 AM EDT [facility] Anion Gap 10 6 - 16 mmol/L 02/24/2025 7:17 AM EDT [facility] Total Calcium, Plasma 9.4 8.9 - 10.2 mg/dL 02/24/2025 7:17 AM EDT [facility] eGFRcr 98.0 mL/min/1.7 3m*2 02/24/2025 7:17 AM EDT [facility] Comment:Reported eGFRcr in m L/min/1.73m2 is based the CKD-EPI 2020 equation that does not use a race coefficient. Blood Venous blood specimen / Unknown Venipuncture / Unknown 02/24/2025 6:42 AM EDT 02/24/2025 6:49 AM EDT us Anaya Felton APRN LAB BLOOD ORDERABLES Final R esult [facility] [address] [place] [address] * (ABNORMAL) Basic metabolic panel (02/24/2025 4:13 AM EDT) Glucose, Plasma 128(H) 74 - 99 mg/dL 02/24/2025 4:51 AM EDT [facility] BUN, Plasma 26(H) 8 - 23 mg/dL 02/24/2025 4:51 AM EDT [facility] Creatinine, Plasma 0.63 0.60 - 1.10 mg/dL 02/24/2025 4:51 AM EDT [facility] BUN/Creatinine Ratio 41 02/24/2025 4:51 AM EDT [facility] Sodium, Plasma 127(L) 136 - 145 mmol/L 02/24/2025 4:51 AM EDT [facility] Potassium, Plasma 4.7 3.6 - 4.9 mmol/L 02/24/2025 4:51 AM EDT [facility] Chloride, Plasma 97 97 - 107 mmol/L 02/24/2025 4:51 AM EDT [facility] CO2, Plasma 21(L) 22 - 29 mmol/L 02/24/2025 4:51 AM EDT [facility] Anion Gap 9 6 - 16 mmol/L 02/24/2025 4:51 AM EDT [facility] Total Calcium, Plasma 9.7 8.9 - 10.2 mg/dL 02/24/2025 4:51 AM EDT [facility] eGFRcr 98.0 mL/min/1.7 3m*2 02/24/2025 4:51 AM EDT [facility] Comment:Reported eGFRcr in m L/min/1.73m2 is based the CKD-EPI 2020 equation that does not use a race coefficient. Blood Venous blood specimen / Unknown Venipuncture / Unknown 02/24/2025 4:13 AM EDT 02/24/2025 4:20 AM EDT us Ned Menendez MD LAB BLOOD ORDERABLES Final Res ult [facility] [address] [place] [address] * (ABNORMAL) CBC and Differential (02/23/2025 5:11 PM EDT) [facility] Signature WBC Count 11.24(H) 3.70 - 10.30 10*3/uL LAB HEMATOLOGY METHOD 02/23/2025 5:30 PM EDT [facility] RBC Count 4.59 3.90 - 5.20 10*6/uL LAB HEMATOLOGY METHOD 02/23/2025 5:30 PM EDT [facility] HGB 12.8 11.2 - 15.7 g/dL LAB HEMATOLOGY METHOD 02/23/2025 5:30 PM EDT [facility] HCT 38.5 34.0 - 45.0 % LAB HEMATOLOGY METHOD 02/23/2025 5:30 PM EDT [facility] Platelet Count 400(H) 155 - 369 10*3/uL LAB HEMATOLOGY METHOD 02/23/2025 5:30 PM EDT [facility] MCV 84 79 - 98 fL LAB HEMATOLOGY METHOD 02/23/2025 5:30 PM EDT [facility] MCH 27.9 26.0 - 32.0 pg LAB HEMATOLOGY METHOD 02/23/2025 5:30 PM EDT [facility] MCHC 33.2 30.7 - 35.5 g/dL LAB HEMATOLOGY METHOD 02/23/2025 5:30 PM EDT [facility] RDW 13.2 11.5 - 14.5 % LAB HEMATOLOGY METHOD 02/23/2025 5:30 PM EDT [facility] MPV 9.0 8.8 - 12.5 fL LAB HEMATOLOGY METHOD 02/23/2025 5:30 PM EDT [facility] nRBC 0.0 <=0.0 per 100 WBCs LAB HEMATOLOGY METHOD 02/23/2025 5:30 PM EDT [facility] Differential Type Automated LAB HEMATOLOGY METHOD 02/23/2025 5:30 PM EDT [facility] Neutrophils % 77 % LAB HEMATOLOGY METHOD 02/23/2025 5:30 PM EDT [facility] Lymphocytes % 15 % LAB HEMATOLOGY METHOD 02/23/2025 5:30 PM EDT [facility] Monocytes % 7 % LAB HEMATOLOGY METHOD 02/23/2025 5:30 PM EDT [facility] Eosinophils % 0 % LAB HEMATOLOGY METHOD 02/23/2025 5:30 PM EDT [facility] Basophils % 0 % LAB HEMATOLOGY METHOD 02/23/2025 5:30 PM EDT [facility] Immature Granulocytes % 1 % LAB HEMATOLOGY METHOD 02/23/2025 5:30 PM EDT [facility] Neutrophils Absolute 8.58(H) 1.60 - 6.10 10*3/uL LAB HEMATOLOGY METHOD 02/23/2025 5:30 PM EDT [facility] Lymphocytes Absolute 1.73 1.20 - 3.90 10*3/uL LAB HEMATOLOGY METHOD 02/23/2025 5:30 PM EDT [facility] Monocytes Absolute 0.74 0.30 - 0.90 10*3/uL LAB HEMATOLOGY METHOD 02/23/2025 5:30 PM EDT [facility] Eosinophils Absolute 0.04 0.00 - 0.50 10*3/uL LAB HEMATOLOGY METHOD 02/23/2025 5:30 PM EDT [facility] Basophils Absolute 0.02 0.00 - 0.10 10*3/uL LAB HEMATOLOGY METHOD 02/23/2025 5:30 PM EDT [facility] Immature Granulocytes Absolute 0.13(H) 0.00 - 0.06 10*3/uL LAB HEMATOLOGY METHOD 02/23/2025 5:30 PM EDT [facility] Blood Venous blood specimen / Unknown Venipuncture / Unknown 02/23/2025 5:11 PM EDT 02/23/2025 5:24 PM EDT Narrative [facility] - 02/23/2025 5:30 PM EDT Therapeutic decision making should be based on absolute values, rather than percentages. us Ned Menendez MD LAB BLOOD ORDERABLES Final Res ult [facility] [address] [place] [address] * (ABNORMAL) Comprehensive Metabolic Panel, Plasma (02/23/2025 5:11 PM EDT) Glucose, Plasma 119(H) 74 - 99 mg/dL 02/23/2025 5:54 PM EDT [facility] BUN, Plasma 20 8 - 23 mg/dL 02/23/2025 5:54 PM EDT [facility] Creatinine, Plasma 0.73 0.60 - 1.10 mg/dL 02/23/2025 5:54 PM EDT [facility] BUN/Creatinine Ratio 27 02/23/2025 5:54 PM EDT [facility] Sodium, Plasma 130(L) 136 - 145 mmol/L 02/23/2025 5:54 PM EDT [facility] Potassium, Plasma 4.4 3.6 - 4.9 mmol/L 02/23/2025 5:54 PM EDT [facility] Chloride, Plasma 96(L) 97 - 107 mmol/L 02/23/2025 5:54 PM EDT [facility] CO2, Plasma 22 22 - 29 mmol/L 02/23/2025 5:54 PM EDT [facility] Anion Gap 12 6 - 16 mmol/L 02/23/2025 5:54 PM EDT [facility] Total Calcium, Plasma 9.6 8.9 - 10.2 mg/dL 02/23/2025 5:54 PM EDT [facility] Total Protein 6.8 6.3 - 7.9 g/dL 02/23/2025 5:54 PM EDT [facility] Albumin, Plasma 4.1 3.5 - 5.2 g/dL 02/23/2025 5:54 PM EDT [facility] AST, Plasma 23 10 - 35 U/L 02/23/2025 5:54 PM EDT [facility] Comment:Hemolyzed, result ma y be falsely increased. ALT, Plasma 25 10 - 35 U/L 02/23/2025 5:54 PM EDT [facility] Alkaline Phosphatase, Plasma 52 46 - 142 U/L 02/23/2025 5:54 PM EDT [facility] Total Bilirubin, Plasma 0.3 0.2 - 1.1 mg/dL 02/23/2025 5:54 PM EDT [facility] eGFRcr 90.8 mL/min/1.7 3m*2 02/23/2025 5:54 PM EDT [facility] Comment:Reported eGFRcr in m L/min/1.73m2 is based the CKD-EPI 2020 equation that does not use a race coefficient. Blood Venous blood specimen / Unknown Venipuncture / Unknown 02/23/2025 5:11 PM EDT 02/23/2025 5:24 PM EDT us Ned Menendez MD LAB BLOOD ORDERABLES Final Res ult Performing Organization Address City/[facility]/ZIP Co de Phone Number [facility] [address] [place] [address] * (ABNORMAL) APTT (02/23/2025 5:11 PM EDT) aPTT 24(L) 25 - 35 sec LAB COAGULATION METHOD 02/23/2025 5:42 PM EDT [facility] Blood Venous blood specimen / Unknown Venipuncture / Unknown 02/23/2025 5:11 PM EDT 02/23/2025 5:24 PM EDT us Ned Menendez MD LAB BLOOD ORDERABLES Final Res ult Performing Organization Address City/[facility] Co de Phone Number [facility] [address] [place] [address] * Prothrombin Time/INR (02/23/2025 5:11 PM EDT) Prothrombin Time 13.1 12.0 - 14.3 sec LAB COAGULATION METHOD 02/23/2025 5:42 PM EDT [facility] INR 1.0 0.9 - 1.1 LAB COAGULATION METHOD 02/23/2025 5:42 PM EDT [facility] Blood Venous blood specimen / Unknown Venipuncture / Unknown 02/23/2025 5:11 PM EDT 02/23/2025 5:24 PM EDT Narrative [facility] - 02/23/2025 5:42 PM EDT OPTIMAL INR RANGES FOR PATIENT ON ORAL ANTICOAGULANT THERAPY Prevention of venous thromboembolism INR 2.0 to 3.0 In patients with heart disease: Atrial fibrillation INR 2.0 to 3.0 Valvular heart disease INR 2.0 to 3.0 Tissue heart valves INR 2.0 to 3.0 Mechanical prosthetic valves INR 2.5 to 3.5 Prevention of recurrent ME INR 2.5 to 3.5 us Ned Menendez MD LAB BLOOD ORDERABLES Final Res ult Performing Organization Address City/[facility]/ZIP Co de Phone Number [facility] [address] [place] [address] * Type and Screen (02/23/2025 5:11 PM EDT) [facility] ABO/Rh A Positive 02/23/2025 4:20 PM EDT BLOOD BANK Antibody Screen Negative 02/23/2025 4:20 PM EDT BLOOD BANK Specimen Expiration 02/26/2025 23:59 02/23/2025 4:20 PM EDT [facility] Blood Venous blood specimen / Unknown Venipuncture / Unknown 02/23/2025 5:11 PM EDT 02/23/2025 5:24 PM EDT Ned Menendez MD LAB BLOOD BANK TEST ORDERABLES Final Result Performing Organization Address [facility] de Phone Number BLOOD BANK [address] [place] [address] * (ABNORMAL) POCT glucose meter (02/23/2025 12:01 PM EDT) [facility] POCT Glucose 115(H) 74 - 99 mg/dL 02/23/2025 12:09 PM EDT [facility] Comment:Accuracy of a glucos e result obtained from a capillary whole blood specimen relies upon adequate, non-compromised capillary blood flow. If the capillary glucose result is not consistent with the patient's clinical signs and symptoms, glucose testing should be repeated with either an arterial or venous sample on the glucometer or sent to the main labortory for testing. Comment 02/23/2025 12:09 PM EDT [facility] [employer] Operator ID Mehreen Kumari 02/24/20 25 12:09 PM EDT [facility] Device ID [id number] 02/23/2025 12:09 PM EDT [facility] Specimen Type POC Capillary 02/23/2025 12:09 PM EDT [facility] Blood Capillary blood specimen / Unknown 02/23/2025 12:01 PM EDT 02/23/2025 12:09 PM EDT us Ned Menendez MD LAB POINT OF CARE TE ST DOCKED DEVICE UNSOLICITED RESULTS Final Result Performing Organization Address [facility] de Phone Number [facility] [address] [place] [address] * (ABNORMAL) POCT glucose meter (02/23/2025 8:20 AM EDT) POCT Glucose 142(H) 74 - 99 mg/dL 02/23/2025 11:54 AM EDT [facility] Comment:Accuracy of a glucos e result obtained from a capillary whole blood specimen relies upon adequate, non-compromised capillary blood flow. If the capillary glucose result is not consistent with the patient's clinical signs and symptoms, glucose testing should be repeated with either an arterial or venous sample on the glucometer or sent to the main labortory for testing. Comment 02/23/2025 11:[address] [facility] [employer] Operator ID Mehreen Kumari 02/24/20 11:54 AM EDT [facility]ALTH[facility]ARE LAB Device ID [id number] 02/23/2025 11:[address] [facility] Specimen Type POC Capillary 02/23/2025 11:[address] [facility] Blood Capillary blood specimen / Unknown 02/23/2025 8:20 AM EDT 02/23/2025 11:54 AM EDT us Ned Menendez MD LAB POINT OF CARE TE ST DOCKED DEVICE UNSOLICITED RESULTS Final Result Performing Organization Address City/[facility] Co de Phone Number [facility] [address] [place] [address] * (ABNORMAL) Sodium (02/23/2025 12:40 AM EDT) Pathologist [facility] Sodium, Plasma 134(L) 136 - 145 mmol/L 02/23/2025 1:32 AM EDT [facility] Blood Venous blood specimen / Unknown Venipuncture / Unknown 02/23/2025 12:40 AM EDT 02/23/2025 1:10 AM EDT us Anaya Felton AUTOCUTTER LAB BLOOD ORDERABLES Final R esult [facility] [address] [place] [address] * (ABNORMAL) POCT glucose meter (02/22/2025 7:51 PM EDT) POCT Glucose 118(H) 74 - 99 mg/dL 02/22/2025 8:17 PM EDT [facility] Comment:Accuracy of a glucos e result obtained from a capillary whole blood specimen relies upon adequate, non-compromised capillary blood flow. If the capillary glucose result is not consistent with the patient's clinical signs and symptoms, glucose testing should be repeated with either an arterial or venous sample on the glucometer or sent to the main labortory for testing. Comment 02/22/2025 8:17 PM EDT [facility] [employer] Operator ID Matt Calle 02/22/2025 8:17 PM EDT [facility] Device ID [id number] 02/22/2025 8:17 PM EDT [facility] Specimen Type POC Capillary 02/22/2025 8:17 PM EDT [facility] Blood Capillary blood specimen / Unknown 02/22/2025 7:51 PM EDT 02/22/2025 8:17 PM EDT Ned Menendez MD LAB POINT OF CARE TE ST DOCKED DEVICE UNSOLICITED RESULTS Final Result Performing Organization Address City/[facility] Co de Phone Number [facility] [address] [place] [address] * (ABNORMAL) POCT Glucose - Before Meals and Bedtime (02/22/2025 7:45 PM EDT) POCT Glucose 128(A) 74 - 99 mg/dL [facility] Blood Venous blood specimen / Unknown 02/22/2025 7:45 PM EDT Anaya Felton AUTOCUTTER POINT OF CARE TEST ENTER/FABIO T ORDERABLES Final Result Performing Organization Address City/[facility] Co de Phone Number [facility] [address] [place] [id number] * MR Head w IV Contrast (02/22/2025 5:53 PM EDT) Anatomical Region Laterality Modality Head Magnetic Resonan ce Impressions 02/23/2025 12:08 AM EDT Stable heterogeneously enhancing mass in the left posterior insula and adjacent temporal lobe. Note: The study was performed for stereotactic localization. CRITICAL RESULT: No. COMMUNICATION: Per this written report. Drafted by Tanmay Alex MD on 02/22/2025 11:59 PM Final report signed by Tanmay Alex MD on 02/23/2025 12:08 AM Narrative 02/23/2025 12:08 AM EDT CLINICAL INDICATION: pre-op for 02/23 TECHNIQUE: Postcontrast coronal 1mm thick T1-weighted MP RAGE images were obtained and axial reformatted images were created. 11.6 mL of Gadavist were administered intravenously. COMPARISON: MRI head February 18, 2025 and February 16, 2025 FINDINGS: Stable heterogeneously enhancing mass in the left posterior insula and adjacent temporal lobe. There is stable mass effect with partial left lateral ventricular effacement and partial effacement of the third ventricle and about 2 mm rightward midline shift. No additional intracranial enhancing lesions are identified. No evidence of hydrocephalus. Exam is mildly degraded by motion artifact. Procedure Note Tanmay Alex MD - 02/23/2025 CLINICAL INDICATION: pre-op for 02/23 TECHNIQUE: Postcontrast coronal 1mm thick T1-weighted MP RAGE images were obtainedand axial reformatted images were created. 11.6 mL of Gadavist wereadministered intravenously. COMPARISON: MRI head February 18, 2025 and February 16, 2025 FINDINGS: Stable heterogeneously enhancing mass in the left posterior insula andadjacent temporal lobe. There is stable mass effect with partial leftlateral ventricular effacement and partial effacement of the thirdventricle and about 2 mm rightward midline shift. No additionalintracranial enhancing lesions are identified. No evidence ofhydrocephalus. Exam is mildly degraded by motion artifact. IMPRESSION: Stable heterogeneously enhancing mass in the left posterior insula andadjacent temporal lobe. Note: The study was performed for stereotactic localization. CRITICAL RESULT: No. COMMUNICATION: Per this written report. Drafted by Tanmay Alex MD on 02/22/2025 11:59 PM Final report signed by Tnamay Alex MD on 02/23/2025 12:08 AM Ned Menendez MD IMG MRI PROCEDURES Final Resul t * (ABNORMAL) POCT glucose meter (02/22/2025 3:40 PM EDT) POCT Glucose 129(H) 74 - 99 mg/dL 02/22/2025 3:44 PM EDT [facility] Comment:Accuracy of a glucos e result obtained from a capillary whole blood specimen relies upon adequate, non-compromised capillary blood flow. If the capillary glucose result is not consistent with the patient's clinical signs and symptoms, glucose testing should be repeated with either an arterial or venous sample on the glucometer or sent to the main labortory for testing. Comment 02/22/2025 3:44 PM EDT [facility] [employer] Operator ID Елена Hyatt 3:44 PM EDT [facility] Device ID [id number] 02/22/2025 3:44 PM EDT [facility] Specimen Type POC Capillary 02/22/2025 3:44 PM EDT [facility] Blood Capillary blood specimen / Unknown 02/22/2025 3:40 PM EDT 02/22/2025 3:44 PM EDT us Ned Menendez MD LAB POINT OF CARE TE ST DOCKED DEVICE UNSOLICITED RESULTS Final Result Performing Organization Address City/State/[facility] Co de Phone Number [facility] [address] [place] [id number] * (ABNORMAL) CBC W/O Differential (02/22/2025 12:45 PM EDT) WBC Count 12.31(H) 3.70 - 10.30 10*3/uL LAB HEMATOLOGY METHOD 02/22/2025 1:04 PM EDT [facility] RBC Count 4.86 3.90 - 5.20 10*6/uL LAB HEMATOLOGY METHOD 02/22/2025 1:04 PM EDT [facility] HGB 13.5 11.2 - 15.7 g/dL LAB HEMATOLOGY METHOD 02/22/2025 1:04 PM EDT [facility] HCT 40.9 34.0 - 45.0 % LAB HEMATOLOGY METHOD 02/22/2025 1:04 PM EDT [facility] Platelet Count 429(H) 155 - 369 10*3/uL LAB HEMATOLOGY METHOD 02/22/2025 1:04 PM EDT [facility] MCV 84 79 - 98 fL LAB HEMATOLOGY METHOD 02/22/2025 1:04 PM EDT [facility] MCH 27.8 26.0 - 32.0 pg LAB HEMATOLOGY METHOD 02/22/2025 1:04 PM EDT [facility] MCHC 33.0 30.7 - 35.5 g/dL LAB HEMATOLOGY METHOD 02/22/2025 1:04 PM EDT [facility] RDW 12.9 11.5 - 14.5 % LAB HEMATOLOGY METHOD 02/22/2025 1:04 PM EDT [facility] MPV 9.1 8.8 - 12.5 fL LAB HEMATOLOGY METHOD 02/22/2025 1:04 PM EDT [facility] nRBC 0.0 <=0.0 per 100 WBCs LAB HEMATOLOGY METHOD 02/22/2025 1:04 PM EDT [facility] Blood Venous blood specimen / Unknown Venipuncture / Unknown 02/22/2025 12:45 PM EDT 02/22/2025 12:56 PM EDT us Ned Menendez MD LAB BLOOD ORDERABLES Final Res ult [facility] [address] [place] [address] * (ABNORMAL) Basic Metabolic Panel, Plasma (02/22/2025 12:45 PM EDT) Glucose, Plasma 133(H) 74 - 99 mg/dL 02/22/2025 1:26 PM EDT [facility] BUN, Plasma 22 8 - 23 mg/dL 02/22/2025 1:26 PM EDT [facility] Creatinine, Plasma 0.67 0.60 - 1.10 mg/dL 02/22/2025 1:26 PM EDT [facility] BUN/Creatinine Ratio 33 02/22/2025 1:26 PM EDT [facility] Sodium, Plasma 130(L) 136 - 145 mmol/L 02/22/2025 1:26 PM EDT [facility] Potassium, Plasma 4.5 3.6 - 4.9 mmol/L 02/22/2025 1:26 PM EDT [facility] Chloride, Plasma 97 97 - 107 mmol/L 02/22/2025 1:26 PM EDT [facility] CO2, Plasma 21(L) 22 - 29 mmol/L 02/22/2025 1:26 PM EDT [facility] Anion Gap 12 6 - 16 mmol/L 02/22/2025 1:26 PM EDT [facility] Total Calcium, Plasma 9.7 8.9 - 10.2 mg/dL 02/22/2025 1:26 PM EDT [facility] eGFRcr 96.5 mL/min/1.7 3m*2 02/22/2025 1:26 PM EDT [facility] Comment:Reported eGFRcr in m L/min/1.73m2 is based the CKD-EPI 2020 equation that does not use a race coefficient. Blood Venous blood specimen / Unknown Venipuncture / Unknown 02/22/2025 12:45 PM EDT 02/22/2025 12:56 PM EDT us Ned Menendez MD LAB BLOOD ORDERABLES Final Res ult [facility] [address] [place] [address] * Magnesium, Plasma (02/22/2025 12:45 PM EDT) Magnesium, Plasma 2.0 1.9 - 2.4 mg/dL 02/22/2025 1:26 PM EDT [facility] Blood Venous blood specimen / Unknown Venipuncture / Unknown 02/22/2025 12:45 PM EDT 02/22/2025 12:56 PM EDT us Ned Menendez MD LAB BLOOD ORDERABLES Final Res ult Performing Organization Address [facility]/ZIP Co de Phone Number [facility] [address] [place] [address] * Phosphorus, Plasma (02/22/2025 12:45 PM EDT) Phosphorus, Plasma 3.5 2.5 - 4.5 mg/dL 02/22/2025 1:26 PM EDT [facility] Blood Venous blood specimen / Unknown Venipuncture / Unknown 02/22/2025 12:45 PM EDT 02/22/2025 12:56 PM EDT Ned Menendez MD LAB BLOOD ORDERABLES Final Res ult Performing Organization Address [facility] Co de Phone Number [facility] [address] [place] [address] * Prothrombin Time/INR (02/22/2025 12:45 PM EDT) Prothrombin Time 12.9 12.0 - 14.3 sec LAB COAGULATION METHOD 02/22/2025 1:21 PM EDT [facility] INR 1.0 0.9 - 1.1 LAB COAGULATION METHOD 02/22/2025 1:21 PM EDT [facility] Blood Venous blood specimen / Unknown Venipuncture / Unknown 02/22/2025 12:45 PM EDT 02/22/2025 12:56 PM EDT Narrative [facility] - 02/22/2025 1:21 PM EDT OPTIMAL INR RANGES FOR PATIENT ON ORAL ANTICOAGULANT THERAPY Prevention of venous thromboembolism INR 2.0 to 3.0 In patients with heart disease: Atrial fibrillation INR 2.0 to 3.0 Valvular heart disease INR 2.0 to 3.0 Tissue heart valves INR 2.0 to 3.0 Mechanical prosthetic valves INR 2.5 to 3.5 Prevention of recurrent ME INR 2.5 to 3.5 us Ned Menendez MD LAB BLOOD ORDERABLES Final Res ult Performing Organization Address City/[facility]/ZIP Co de Phone Number [facility] [address] [place] [address] * APTT (02/22/2025 12:45 PM EDT) [facility] aPTT 29 25 - 35 sec LAB COAGULATION METHOD 02/22/2025 1:21 PM EDT [facility] Blood Venous blood specimen / Unknown Venipuncture / Unknown 02/22/2025 12:45 PM EDT 02/22/2025 12:56 PM EDT Ned Menendez MD LAB BLOOD ORDERABLES Final Res ult Performing Organization Address [facility] Co de Phone Number [facility] [address] [place] [address] * (ABNORMAL) Sodium (02/22/2025 12:45 PM EDT) [facility] Sodium, Plasma 130(L) 136 - 145 mmol/L 02/22/2025 1:26 PM EDT [facility] Blood Venous blood specimen / Unknown Venipuncture / Unknown 02/22/2025 12:45 PM EDT 02/22/2025 12:56 PM EDT Anaya Felton APRN LAB BLOOD ORDERABLES Final R esult Performing Organization Address [facility] [place] [address] * (ABNORMAL) POCT glucose meter (02/22/2025 11:57 AM EDT) [facility] POCT Glucose 114(H) 74 - 99 mg/dL 02/22/2025 12:02 PM EDT [facility] Comment:Accuracy of a glucos e result obtained from a capillary whole blood specimen relies upon adequate, non-compromised capillary blood flow. If the capillary glucose result is not consistent with the patient's clinical signs and symptoms, glucose testing should be repeated with either an arterial or venous sample on the glucometer or sent to the main labortory for testing. Comment 02/22/2025 12:02 PM EDT [facility] [employer] Operator ID Aron Hyattmitchell 12:02 PM EDT [facility] Device ID [id number] 02/22/2025 12:02 PM EDT [facility] Specimen Type POC Capillary 02/22/2025 12:[address] [facility] Blood Capillary blood specimen / Unknown 02/22/2025 11:57 AM EDT 02/22/2025 12:02 PM EDT Ned Menendez MD LAB POINT OF CARE TE ST DOCKED DEVICE UNSOLICITED RESULTS Final Result Performing Organization Address City/[facility]/ZIP Co de Phone Number [facility] [address] [place] [address] * (ABNORMAL) POCT glucose meter (02/22/2025 8:07 AM EDT) POCT Glucose 139(H) 74 - 99 mg/dL 02/22/2025 11:57 AM EDT [facility] Comment:Accuracy of a glucos e result obtained from a capillary whole blood specimen relies upon adequate, non-compromised capillary blood flow. If the capillary glucose result is not consistent with the patient's clinical signs and symptoms, glucose testing should be repeated with either an arterial or venous sample on the glucometer or sent to the main labortory for testing. Comment 02/22/2025 11:[address] [facility] [employer] Operator ID Елена Hyatt 11:57 AM EDT [facility] Device ID [id number] 02/22/2025 11:[address] [facility] Specimen Type POC Capillary 02/22/2025 11:[address] [facility] Blood Capillary blood specimen / Unknown 02/22/2025 8:07 AM EDT 02/22/2025 11:57 AM EDT Ned Menendez MD LAB POINT OF CARE TE ST DOCKED DEVICE UNSOLICITED RESULTS Final Result [facility] [address] [place] [address] * (ABNORMAL) Sodium (02/22/2025 3:57 AM EDT) Sodium, Plasma 132(L) 136 - 145 mmol/L 02/22/2025 5:45 AM EDT [facility] Blood Venous blood specimen / Unknown Venipuncture / Unknown 02/22/2025 3:57 AM EDT 02/22/2025 4:28 AM EDT Anaya Curtis Jose Francisco GOODWINN LAB BLOOD ORDERABLES Final R esult [facility] [address] [place] [address] * (ABNORMAL) POCT glucose meter (02/21/2025 7:32 PM EDT) [facility] POCT Glucose 155(H) 74 - 99 mg/dL 02/21/2025 7:35 PM EDT [facility] Comment:Accuracy of a glucos e result obtained from a capillary whole blood specimen relies upon adequate, non-compromised capillary blood flow. If the capillary glucose result is not consistent with the patient's clinical signs and symptoms, glucose testing should be repeated with either an arterial or venous sample on the glucometer or sent to the main labortory for testing. Comment 02/21/2025 7:35 PM EDT [facility] [employer] Machine Operator ID Jorje Rivas 7:35 PM EDT [facility] Device ID [id number] 02/21/2025 7:[address] [facility] Specimen Type POC Capillary 02/21/2025 7:[address] [facility] Blood Capillary blood specimen / Unknown 02/21/2025 7:32 PM EDT 02/21/2025 7:35 PM EDT Ned Menendez MD LAB POINT OF CARE TE ST DOCKED DEVICE UNSOLICITED RESULTS Final Result Performing Organization Address City/[facility]/ZIP Co de Phone Number [facility] [address] [place] [address] * (ABNORMAL) POCT glucose meter (02/21/2025 4:01 PM EDT) [facility] POCT Glucose 131(H) 74 - 99 mg/dL 02/21/2025 5:25 PM EDT [facility] Comment:Accuracy of a glucos e result obtained from a capillary whole blood specimen relies upon adequate, non-compromised capillary blood flow. If the capillary glucose result is not consistent with the patient's clinical signs and symptoms, glucose testing should be repeated with either an arterial or venous sample on the glucometer or sent to the main labortory for testing. Comment 02/21/2025 5:25 PM EDT [facility] [employer] Machine Operator ID Елена Hyatt 5:25 PM EDT [facility] Device ID [id number] 02/21/2025 5:[address] [facility] Specimen Type POC Capillary 02/21/2025 5:[address] [facility] Blood Capillary blood specimen / Unknown 02/21/2025 4:01 PM EDT 02/21/2025 5:25 PM EDT Ned Menendez MD LAB POINT OF CARE TE ST DOCKED DEVICE UNSOLICITED RESULTS Final Result Performing Organization Address City/[facility]/ZIP Co de Phone Number [facility] [address] [place] [address] * (ABNORMAL) Sodium (02/21/2025 4:01 PM EDT) Pathologist [facility] Sodium, Plasma 131(L) 136 - 145 mmol/L 02/21/2025 4:31 PM EDT [facility] Blood Venous blood specimen / Unknown Venipuncture / Unknown 02/21/2025 4:01 PM EDT 02/21/2025 4:09 PM EDT Anaya Felton APRN LAB BLOOD ORDERABLES Final R esult Performing Organization Address City/[facility]/ZIP Co de Phone Number [facility] [address] [place] [address] * (ABNORMAL) POCT glucose meter (02/21/2025 12:08 PM EDT) POCT Glucose 152(H) 74 - 99 mg/dL 02/21/2025 12:[address] [facility] Comment:Accuracy of a glucos e result obtained from a capillary whole blood specimen relies upon adequate, non-compromised capillary blood flow. If the capillary glucose result is not consistent with the patient's clinical signs and symptoms, glucose testing should be repeated with either an arterial or venous sample on the glucometer or sent to the main labortory for testing. Comment 02/21/2025 12:43 PM EDT [facility] [employer] Machine Operator ID Елена Hyatt 12:43 PM EDT [facility] Device ID [id number] 02/21/2025 12:43 PM EDT [facility] Specimen Type POC Capillary 02/21/2025 12:43 PM EDT [facility] Blood Capillary blood specimen / Unknown 02/21/2025 12:08 PM EDT 02/21/2025 12:43 PM EDT Ned Menendez MD LAB POINT OF CARE TE ST DOCKED DEVICE UNSOLICITED RESULTS Final Result Performing Organization Address City/[facility] Co de Phone Number [facility] [address] [place] [address] * (ABNORMAL) POCT glucose meter (02/21/2025 8:29 AM EDT) [facility] POCT Glucose 129(H) 74 - 99 mg/dL 02/21/2025 8:43 AM EDT [facility] Comment:Accuracy of a glucos e result obtained from a capillary whole blood specimen relies upon adequate, non-compromised capillary blood flow. If the capillary glucose result is not consistent with the patient's clinical signs and symptoms, glucose testing should be repeated with either an arterial or venous sample on the glucometer or sent to the main labortory for testing. Comment 02/21/2025 8:43 AM EDT [facility] [employer] Machine Operator ID Елена Hyatt 8:43 AM EDT [facility] Device ID [id number] 02/21/2025 8:43 AM EDT [facility] Specimen Type POC Capillary 02/21/2025 8:43 AM EDT [facility] Blood Capillary blood specimen / Unknown 02/21/2025 8:29 AM EDT 02/21/2025 8:43 AM EDT us Ned Menendez MD LAB POINT OF CARE TE ST DOCKED DEVICE UNSOLICITED RESULTS Final Result Performing Organization Address City/[facility]/ZIP Co de Phone Number [facility] [address] [place] [address] * (ABNORMAL) Sodium (02/21/2025 4:31 AM EDT) [facility] Sodium, Plasma 132(L) 136 - 145 mmol/L 02/21/2025 6:28 AM EDT [facility] Blood Venous blood specimen / Unknown Venipuncture / Unknown 02/21/2025 4:31 AM EDT 02/21/2025 6:04 AM EDT Anaya Felton APRN LAB BLOOD ORDERABLES Final R esult [facility] [address] [place] [address] * (ABNORMAL) POCT glucose meter (02/20/2025 7:45 PM EDT) [facility] POCT Glucose 128(H) 74 - 99 mg/dL 02/20/2025 7:46 PM EDT [facility] Comment:Accuracy of a glucos e result obtained from a capillary whole blood specimen relies upon adequate, non-compromised capillary blood flow. If the capillary glucose result is not consistent with the patient's clinical signs and symptoms, glucose testing should be repeated with either an arterial or venous sample on the glucometer or sent to the main labortory for testing. Comment 02/20/2025 7:46 PM EDT [facility] [employer] Machine Operator ID Jorje Rivas 7:46 PM EDT [facility] Device ID [id number] 02/20/2025 7:[address] [facility] Specimen Type POC Capillary 02/20/2025 7:[address] [facility] Blood Capillary blood specimen / Unknown 02/20/2025 7:45 PM EDT 02/20/2025 7:46 PM EDT Ned Menendez MD LAB POINT OF CARE TE ST DOCKED DEVICE UNSOLICITED RESULTS Final Result Performing Organization Address City/[facility]/ZIP Co de Phone Number [facility] [address] [place] [address] * (ABNORMAL) POCT glucose meter (02/20/2025 3:36 PM EDT) [facility] POCT Glucose 132(H) 74 - 99 mg/dL 02/20/2025 3:[address] [facility] Comment:Accuracy of a glucos e result obtained from a capillary whole blood specimen relies upon adequate, non-compromised capillary blood flow. If the capillary glucose result is not consistent with the patient's clinical signs and symptoms, glucose testing should be repeated with either an arterial or venous sample on the glucometer or sent to the main labortory for testing. Comment 02/20/2025 3:37 PM EDT [facility] [employer] Machine Operator ID Edwige Vasquez 025 3:[address] [facility] Device ID [id number] 02/20/2025 3:[address] [facility] Specimen Type POC Capillary 02/20/2025 3:[address] [facility] Blood Capillary blood specimen / Unknown 02/20/2025 3:36 PM EDT 02/20/2025 3:37 PM EDT Ned Menendez MD LAB POINT OF CARE TE ST DOCKED DEVICE UNSOLICITED RESULTS Final Result Performing Organization Address City/[facility] Co de Phone Number [facility] [address] [place] [address] * (ABNORMAL) Sodium (02/20/2025 3:09 PM EDT) [facility] Sodium, Plasma 132(L) 136 - 145 mmol/L 02/20/2025 3:44 PM EDT [facility] Blood Venous blood specimen / Unknown Venipuncture / Unknown 02/20/2025 3:09 PM EDT 02/20/2025 3:21 PM EDT Anaya Felton APRN LAB BLOOD ORDERABLES Final R esult [facility] [address] [place] [address] * (ABNORMAL) POCT glucose meter (02/20/2025 11:45 AM EDT) [facility] POCT Glucose 152(H) 74 - 99 mg/dL 02/20/2025 11:46 AM EDT [facility] Comment:Accuracy of a glucos e result obtained from a capillary whole blood specimen relies upon adequate, non-compromised capillary blood flow. If the capillary glucose result is not consistent with the patient's clinical signs and symptoms, glucose testing should be repeated with either an arterial or venous sample on the glucometer or sent to the main labortory for testing. Comment 02/20/2025 11:46 AM EDT [facility] [employer] Machine Operator ID Edwige Vasquez 025 11:46 AM EDT [facility] Device ID [id number] 02/20/2025 11:46 AM EDT [facility] Specimen Type POC Capillary 02/20/2025 11:46 AM EDT [facility] Blood Capillary blood specimen / Unknown 02/20/2025 11:45 AM EDT 02/20/2025 11:46 AM EDT Ned Menendez MD LAB POINT OF CARE TE ST DOCKED DEVICE UNSOLICITED RESULTS Final Result [facility] [address] [place] [address] * (ABNORMAL) POCT glucose meter (02/20/2025 7:45 AM EDT) [facility] POCT Glucose 140(H) 74 - 99 mg/dL 02/20/2025 7:48 AM EDT [facility] Comment:Accuracy of a glucos e result obtained from a capillary whole blood specimen relies upon adequate, non-compromised capillary blood flow. If the capillary glucose result is not consistent with the patient's clinical signs and symptoms, glucose testing should be repeated with either an arterial or venous sample on the glucometer or sent to the main labortory for testing. Comment 02/20/2025 7:48 AM EDT [facility] [employer] Operator ID Edwige Vasquez 025 7:48 AM EDT [facility] Device ID [id number] 02/20/2025 7:48 AM EDT [facility] Specimen Type POC Capillary 02/20/2025 7:48 AM EDT [facility] Blood Capillary blood specimen / Unknown 02/20/2025 7:45 AM EDT 02/20/2025 7:48 AM EDT Ned Menendez MD LAB POINT OF CARE TE ST DOCKED DEVICE UNSOLICITED RESULTS Final Result Performing Organization Address City/[facility] Co de Phone Number [facility] [address] [place] [address] * Lavender Top (02/20/2025 4:27 AM EDT) [facility] Extra Hold for add-ons 02/20/2025 8:02 AM EDT [facility] Comment:Auto resulted. Blood Venous blood specimen / Unknown 02/20/2025 4:27 AM EDT 02/20/2025 5:06 AM EDT Ned Menendez MD LAB BLOOD ORDERABLES Final Res ult Performing Organization Address [facility] Co de Phone Number [facility] [address] [place] [address] * (ABNORMAL) Sodium (02/20/2025 4:27 AM EDT) [facility] Sodium, Plasma 132(L) 136 - 145 mmol/L 02/20/2025 5:24 AM EDT [facility] Blood Venous blood specimen / Unknown Venipuncture / Unknown 02/20/2025 4:27 AM EDT 02/20/2025 5:03 AM EDT Anaya Felton APRN LAB BLOOD ORDERABLES Final R esult Performing Organization Address [facility] Co de Phone Number [facility] [address] [place] [address] * (ABNORMAL) POCT glucose meter (02/19/2025 7:59 PM EDT) [facility] POCT Glucose 132(H) 74 - 99 mg/dL 02/19/2025 8:[address] [facility] Comment:Accuracy of a glucos e result obtained from a capillary whole blood specimen relies upon adequate, non-compromised capillary blood flow. If the capillary glucose result is not consistent with the patient's clinical signs and symptoms, glucose testing should be repeated with either an arterial or venous sample on the glucometer or sent to the main labortory for testing. Comment 02/19/2025 8:02 PM EDT [facility] [employer] Machine Operator ID Dm Reaves 8:02 PM EDT [facility] Device ID [id number] 02/19/2025 8:02 PM EDT [facility] Specimen Type POC Capillary 02/19/2025 8:02 PM EDT [facility] Blood Capillary blood specimen / Unknown 02/19/2025 7:59 PM EDT 02/19/2025 8:02 PM EDT Ned Menendez MD LAB POINT OF CARE TE ST DOCKED DEVICE UNSOLICITED RESULTS Final Result Performing Organization Address [facility] de Phone Number [facility] [address] [place] [address] * (ABNORMAL) Hemoglobin A1c (02/19/2025 4:17 PM EDT) Hemoglobin A1c 5.7(H) <5.7 % 02/19/2025 5:20 PM EDT [facility] Blood Venous blood specimen / Unknown Venipuncture / Unknown 02/19/2025 4:17 PM EDT 02/19/2025 4:49 PM EDT Narrative [facility] - 02/19/2025 5:20 PM EDT HA1C Interpretive Data: Diagnosis of Diabetes: Diabetic > or = 6.5% Pre-diabetic 5.7 to 6.4% Non-diabetic < or = 5.6% Glycemic Targets for Type I and Type II Diabetics: Non- Adults <7.0% Adults <6.0% Children and Adolescents <7.5% Source: [place] [employer]. Standards of medical care in diabetes,2017. Diabetes Care.2017:40 (suppl 1):S1-S135. Anaya Felton APRN LAB BLOOD ORDERABLES Final R esult Performing Organization Address City/[facility]/ZIP Co de Phone Number [facility] [address] [place] [address] * (ABNORMAL) Sodium (02/19/2025 4:17 PM EDT) Sodium, Plasma 129(L) 136 - 145 mmol/L 02/19/2025 5:06 PM EDT [facility] Blood Venous blood specimen / Unknown Venipuncture / Unknown 02/19/2025 4:17 PM EDT 02/19/2025 4:44 PM EDT Anaya Curtis Jose Francisco GOODWINN LAB BLOOD ORDERABLES Final R esult [facility] [address] [place] [address] * (ABNORMAL) POCT glucose meter (02/19/2025 3:42 PM EDT) [facility] POCT Glucose 143(H) 74 - 99 mg/dL 02/19/2025 3:45 PM EDT [facility] Comment:Accuracy of a glucos e result obtained from a capillary whole blood specimen relies upon adequate, non-compromised capillary blood flow. If the capillary glucose result is not consistent with the patient's clinical signs and symptoms, glucose testing should be repeated with either an arterial or venous sample on the glucometer or sent to the main labortory for testing. Comment 02/19/2025 3:45 PM EDT [facility] Deburring And Tooling Machine Operator ID Елена Hyatt 3:45 PM EDT [facility] Device ID [id number] 02/19/2025 3:45 PM EDT [facility] Specimen Type POC Capillary 02/19/2025 3:[address] [facility] Blood Capillary blood specimen / Unknown 02/19/2025 3:42 PM EDT 02/19/2025 3:45 PM EDT Ned Menendez MD LAB POINT OF CARE TE ST DOCKED DEVICE UNSOLICITED RESULTS Final Result Performing Organization Address City/[facility]/ZIP Co de Phone Number [facility]ALTHCARE [facility] [address] [place] [address] * (ABNORMAL) POCT glucose meter (02/19/2025 12:00 PM EDT) [facility] POCT Glucose 147(H) 74 - 99 mg/dL 02/19/2025 12:10 PM EDT [facility] Comment:Accuracy of a glucos e result obtained from a capillary whole blood specimen relies upon adequate, non-compromised capillary blood flow. If the capillary glucose result is not consistent with the patient's clinical signs and symptoms, glucose testing should be repeated with either an arterial or venous sample on the glucometer or sent to the main labortory for testing. Comment 02/19/2025 12:10 PM EDT [facility] De[employer]ring [employer] Tooling Machine Operator ID Елена Hyatt 12:10 PM EDT [facility] Device ID [id number] 02/19/2025 12:10 PM EDT [facility] Specimen Type POC Capillary 02/19/2025 12:[address] [facility] Blood Capillary blood specimen / Unknown 02/19/2025 12:00 PM EDT 02/19/2025 12:10 PM EDT us Ned Menendez MD LAB POINT OF CARE TE ST DOCKED DEVICE UNSOLICITED RESULTS Final Result Performing Organization Address City/[facility]/ZIP Co de Phone Number [facility] [address] [place] [address] * Creatinine, urine, random (02/19/2025 11:50 AM EDT) Creatinine, Urine 77 mg/dL 02/19/2025 12:53 PM EDT [facility] Urine Urine specimen obtained by clean catch procedure / Unknown Non-blood Collection / Unknown 02/19/2025 11:50 AM EDT 02/19/2025 12:09 PM EDT us Anaya Hdez MD LAB URINE ORDERABLES Final Resul t [facility] [address] [place] [address] * Osmolality, urine (02/19/2025 11:50 AM EDT) Osmolality, Urine 441 50 - 1,200 mOsm/kg 02/19/2025 12:55 PM EDT [facility] Urine Urine specimen obtained by clean catch procedure / Unknown Non-blood Collection / Unknown 02/19/2025 11:50 AM EDT 02/19/2025 12:09 PM EDT us Anaya Hdez MD LAB URINE ORDERABLES Final Resul t Performing Organization Address City/[facility] Co de Phone Number [facility] [address] [place] [address] * Sodium, urine, random (02/19/2025 11:50 AM EDT) Sodium, Urine 57 mmol/L 02/19/2025 12:53 PM EDT [facility] Urine Urine specimen obtained by clean catch procedure / Unknown Non-blood Collection / Unknown 02/19/2025 11:50 AM EDT 02/19/2025 12:09 PM EDT us Anaya Hdez MD LAB URINE ORDERABLES Final Resul t Performing Organization Address [facility] Co de Phone Number [facility] [address] [place] [address] * ECG Adult (02/19/2025 11:42 AM EDT) EKG DIAGNOSIS CLASS Borderline Normal MUSE ECG Ventricular Rate 66 BPM MUSE ECG Atrial Rate 66 BPM MUSE ECG NC Interval 194 ms MUSE ECG QRSD Interval 88 ms MUSE ECG QT Interval 404 ms MUSE ECG QTC Interval 423 ms MUSE ECG P Montgomery 51 degrees MUSE ECG R Montgomery 23 degrees MUSE ECG T Wave [place] 26 degrees MUSE ECG Diagnosis Sinus rhythm with occasional premature ventricular complexes MUSE ECG Diagnosis MUSE ECG Diagnosis MUSE ECG Diagnosis Confirmed by Tasneem Ludwig ([id number]) on 02/20/2025 11:51:00 AM MUSE ECG 02/19/2025 11:4 2 AM EDT 02/20/2025 11:51 AM EDT us Anaya Hdez MD ECG ORDERABLES Final Result Performing Organization Address [facility] Co de Phone Number MUSE ECG * (ABNORMAL) Osmolality (02/19/2025 4:03 AM EDT) Osmolality, Serum 275(L) 280 - 301 mOsm/Kg 02/19/2025 11:41 AM EDT [facility] Blood Venous blood specimen / Unknown Venipuncture / Unknown 02/19/2025 4:03 AM EDT 02/19/2025 4:23 AM EDT Anaya Hdez MD LAB BLOOD ORDERABLES Final Resul t Performing Organization Address City/[facility]/[place] [address] * (ABNORMAL) Sodium (02/19/2025 4:03 AM EDT) Sodium, Plasma 129(L) 136 - 145 mmol/L 02/19/2025 4:51 AM EDT [facility] Blood Venous blood specimen / Unknown Venipuncture / Unknown 02/19/2025 4:03 AM EDT 02/19/2025 4:23 AM EDT Anaya Felton APRN LAB BLOOD ORDERABLES Final R esult Performing Organization Address [facility] [place] [address] * Phosphorus, Plasma (02/19/2025 4:03 AM EDT) Phosphorus, Plasma 3.2 2.5 - 4.5 mg/dL 02/19/2025 4:51 AM EDT [facility] Blood Venous blood specimen / Unknown Venipuncture / Unknown 02/19/2025 4:03 AM EDT 02/19/2025 4:23 AM EDT Anaya Felton AUTOCUTTER LAB BLOOD ORDERABLES Final R esult Performing Organization Address City/[facility] [place] [address] * Magnesium, Plasma (02/19/2025 4:03 AM EDT) Magnesium, Plasma 2.0 1.9 - 2.4 mg/dL 02/19/2025 4:51 AM EDT [facility] Blood Venous blood specimen / Unknown Venipuncture / Unknown 02/19/2025 4:03 AM EDT 02/19/2025 4:23 AM EDT us Anaya Curtis Jose Francisco AUTOCUTTER LAB BLOOD ORDERABLES Final R esult [facility] [address] [place] [address] * (ABNORMAL) Basic Metabolic Panel, Plasma (02/19/2025 4:03 AM EDT) Glucose, Plasma 153(H) 74 - 99 mg/dL 02/19/2025 4:51 AM EDT [facility] BUN, Plasma 14 8 - 23 mg/dL 02/19/2025 4:51 AM EDT [facility] Creatinine, Plasma 0.56(L) 0.60 - 1.10 mg/dL 02/19/2025 4:51 AM EDT [facility] BUN/Creatinine Ratio 25 02/19/2025 4:51 AM EDT [facility] Sodium, Plasma 129(L) 136 - 145 mmol/L 02/19/2025 4:51 AM EDT [facility] Potassium, Plasma 4.1 3.6 - 4.9 mmol/L 02/19/2025 4:51 AM EDT [facility] Chloride, Plasma 96(L) 97 - 107 mmol/L 02/19/2025 4:51 AM EDT [facility] CO2, Plasma 22 22 - 29 mmol/L 02/19/2025 4:51 AM EDT [facility] Anion Gap 11 6 - 16 mmol/L 02/19/2025 4:51 AM EDT [facility] Total Calcium, Plasma 9.6 8.9 - 10.2 mg/dL 02/19/2025 4:51 AM EDT [facility] eGFRcr 100.8 mL/min/1.7 3m*2 02/19/2025 4:51 AM EDT [facility] Comment:Reported eGFRcr in m L/min/1.73m2 is based the CKD-EPI 2020 equation that does not use a race coefficient. Blood Venous blood specimen / Unknown Venipuncture / Unknown 02/19/2025 4:03 AM EDT 02/19/2025 4:23 AM EDT Anaya Felton AUTOCUTTER LAB BLOOD ORDERABLES Final R esult Performing Organization Address [facility] Co de Phone Number [facility] [address] [place] [address] * (ABNORMAL) Sodium (02/18/2025 3:27 PM EDT) Sodium, Plasma 128(L) 136 - 145 mmol/L 02/18/2025 4:35 PM EDT [facility] Blood Venous blood specimen / Unknown Venipuncture / Unknown 02/18/2025 3:27 PM EDT 02/18/2025 4:00 PM EDT Anaya Felton AUTOCUTTER LAB BLOOD ORDERABLES Final R esult Performing Organization Address [facility] de Phone Number [facility] [address] [place] [address] * MR Brain Neurofunctional Test w Physician Administration (02/18/2025 12:29 PM EDT) Anatomical Region Laterality Modality Head Magnetic Resonan ce Impressions 02/18/2025 6:45 PM EDT 1. Enhancing tumor involving the left posterior insula, retrolenticular region, and temporal stem. 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 2. Left hemisphere dominance for language. No critical language cortical activation areas in proximity to tumor margins. Components of the superior longitudinal fasciculus (SLF) have immediate proximity along the superior and posterior tumor margins. 3. Components of the corticospinal tract (ENTRY LEVEL SALES REPRESENTATIVE) have immediate proximity to the medial tumor margin. CRITICAL RESULT: No. COMMUNICATION: Per this written report. Drafted by Aurelio Brown MD on 02/18/2025 1:16 PM Final report signed by Aurelio Brown MD on 02/18/2025 6:45 PM Narrative 02/18/2025 6:45 PM EDT CLINICAL INDICATION: Presurgical planning, fMRI speech and motor. 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 TECHNIQUE: Anatomical MRI: 1 mm isotropic 3-D T1W MPRAGE was performed through the whole brain at 3 Nanie magnet strength both before and after administration of 11.8 mL Gadavist contrast. Functional MRI (fMRI): 3.5 mm thick images were obtained at 3 Annie using an echoplanar technique that emphasizes BOLD signal. An alternating-task block design was used that defines activation as a voxelwise BOLD signal difference between the active and reference task states above an appropriate user-defined statistical threshold. Images are adjusted for anatomical distortion, motion, and response waveform before calculation of the activation maps with [facility] post-processing software. Physician (and technologist) evaluated the patient for pertinent history and functional status in order to select the appropriate task paradigms. Patient was subsequently trained prior to image acquisition. Duration of assessment and training was approximately 30 minutes. Diffusion tensor imaging (DTI): 2 mm isotropic diffusion tensor imaging (DTI) was also obtained at 3 Annie with whole brain coverage using RESOLVE technique with 12 directions. The diffusion tensor was calculated, and images were corrected for anatomic distortion and motion. Postprocessing was performed with [facility] modeling of fiber tracking with user-defined volumes of interest and thresholds. COMPARISON: Brain MRI performed one day ago FINDINGS: Anatomical Imaging: Heterogeneously enhancing mass is again noted involving the left posterior insula, retrolenticular region, and temporal stem. It measures 5 x 4 x 3.5 cm. No other abnormal intracranial enhancement is appreciated. fMRI Motor: Not performed since to proximity to tumor margins. fMRI Language: The antonym and sentence completion tasks provides superior image quality. The noun-verb task is compromised by motion but remains concordant with the other tasks. Antonym generation, verb generation (i.e. noun-verb fluency), and sentence completion tasks demonstrate left hemispheric lateralization of language areas, including in the inferior frontal gyrus in expected Broca's area, temporoparietal junction in expected Wernicke's area, middle frontal gyrus in expected region of working memory, posteromedial portion of the frontal lobe in expected pre-SMA, and posterior temporal region. No cortical language activation areas of critical significance are located with proximity to tumor margins. DTI Motor: The left corticospinal tract (ENTRY LEVEL SALES REPRESENTATIVE) is displaced medially. The ENTRY LEVEL SALES REPRESENTATIVE has proximity to the medial tumor margin at the level of ordaz radiata and the posterior limb of the internal capsule. The relatively more posterior portion of the ENTRY LEVEL SALES REPRESENTATIVE has immediate proximity, while the more anterior portion of the ENTRY LEVEL SALES REPRESENTATIVE has close proximity with 3 mm [id number] distance. DTI Language: The left superior longitudinal fasciculus (SLF) is not significantly displaced. The horizontal portion of the SLF (i.e., SLF body) have immediate proximity along the superior tumor margin. Components of the vertical portion of the SLF (i.e., arcuate fasciculus) have immediate proximity along the posterior tumor margins. Color assignments in post-processed image sets in Brain[facility]: fMRI activation maps: blue = antonym generation language yellow = sentence completion language DTI fiber tracking: blue = ENTRY LEVEL SALES REPRESENTATIVE red = SLF Images were created in [facility] and then exported to PACS as burned in images. Saved Plan of fibertracking results will be found on the [facility] server service assistant under the name fMRI_DTI Final. Procedure Note Aurelio Brown MD - 02/18/2025 CLINICAL INDICATION: Presurgical planning, fMRI speech and motor. 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 TECHNIQUE: Anatomical MRI: 1 mm isotropic 3-D T1W MPRAGE was performed through the whole brain at 3Tesla magnet strength both before and after administration of 11.8 mLGadavist contrast. Functional MRI (fMRI): 3.5 mm thick images were obtained at 3 Annie using an echoplanar techniquethat emphasizes BOLD signal. An alternating-task block design was usedthat defines activation as a voxelwise BOLD signal difference between theactive and reference task states above an appropriate user-definedstatistical threshold. Images are adjusted for anatomical distortion,motion, and response waveform before calculation of the activation mapswith [facility] post-processing software. Physician (and technologist)evaluated the patient for pertinent history and functional status in orderto select the appropriate task paradigms. Patient was subsequently trainedprior to image acquisition. Duration of assessment and training wasapproximately 30 minutes. Diffusion tensor imaging (DTI): 2 mm isotropic diffusion tensor imaging (DTI) was also obtained at 3 Teslawith whole brain coverage using RESOLVE technique with 12 directions. Thediffusion tensor was calculated, and images were corrected for anatomicdistortion and motion. Postprocessing was performed with BrainLab modelingof fiber tracking with user-defined volumes of interest and thresholds. COMPARISON: Brain MRI performed one day ago FINDINGS: Anatomical Imaging: Heterogeneously enhancing mass is again noted involving the left posteriorinsula, retrolenticular region, and temporal stem. It measures 5 x 4 x 3.5cm. No other abnormal intracranial enhancement is appreciated. fMRI Motor: Not performed since to proximity to tumor margins. fMRI Language: The antonym and sentence completion tasks provides superior image quality.The noun-verb task is compromised by motion but remains concordant withthe other tasks. Antonym generation, verb generation (i.e. noun-verbfluency), and sentence completion tasks demonstrate left hemisphericlateralization of language areas, including in the inferior frontal gyrusin expected Broca's area, temporoparietal junction in expected Wernicke'sarea, middle frontal gyrus in expected region of working memory,posteromedial portion of the frontal lobe in expected pre-SMA, andposterior temporal region. No cortical language activation areas ofcritical significance are located with proximity to tumor margins. DTI Motor: The left corticospinal tract (ENTRY LEVEL SALES REPRESENTATIVE) is displaced medially. TheCST has proximity to the medial tumor margin at the level of coronaradiata and the posterior limb of the internal capsule. The relativelymore posterior portion of the ENTRY LEVEL SALES REPRESENTATIVE has immediate proximity, while the moreanterior portion of the ENTRY LEVEL SALES REPRESENTATIVE has close proximity with 3 mm [id number]. DTI Language: The left superior longitudinal fasciculus (SLF) is notsignificantly displaced. The horizontal portion of the SLF (i.e., SLFbody) have immediate proximity along the superior tumor margin. Componentsof the vertical portion of the SLF (i.e., arcuate fasciculus) haveimmediate proximity along the posterior tumor margins. Color assignments in post-processed image sets in [facility]: fMRI activation maps: blue = antonym generation language yellow = sentence completion language DTI fiber tracking: blue = ENTRY LEVEL SALES REPRESENTATIVE red = SLF Images were created in [facility] and then exported to PACS as burned in images. Saved Plan of fibertracking results will be found on the [facility] serverunder the name fMRI_DTI Final. IMPRESSION: 1. Enhancing tumor involving the left posterior insula, retrolenticularregion, and temporal stem. 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 2. Left hemisphere dominance for language. No critical language corticalactivation areas in proximity to tumor margins. Components of the superiorlongitudinal fasciculus (SLF) have immediate proximity along the superiorand posterior tumor margins. 3. Components of the corticospinal tract (ENTRY LEVEL SALES REPRESENTATIVE) have immediate proximity tothe medial tumor margin. CRITICAL RESULT: No. COMMUNICATION: Per this written report. Drafted by Aurelio Brown MD on 02/18/2025 1:16 PM Final report signed by Aurelio Brown MD on 02/18/2025 6:45 PM Ned Menendez MD [facility] [place] PROCEDURES Final Resul t * (ABNORMAL) Comprehensive Metabolic Panel, Plasma (02/18/2025 8:54 AM EDT) Glucose, Plasma 106(H) 74 - 99 mg/dL 02/18/2025 9:38 AM EDT [facility] BUN, Plasma 11 8 - 23 mg/dL 02/18/2025 9:38 AM EDT [facility] Creatinine, Plasma 0.54(L) 0.60 - 1.10 mg/dL 02/18/2025 9:38 AM EDT [facility] BUN/Creatinine Ratio 20 02/18/2025 9:38 AM EDT [facility] Sodium, Plasma 132(L) 136 - 145 mmol/L 02/18/2025 9:38 AM EDT [facility] Potassium, Plasma 3.9 3.6 - 4.9 mmol/L 02/18/2025 9:38 AM EDT [facility] Chloride, Plasma 96(L) 97 - 107 mmol/L 02/18/2025 9:38 AM EDT [facility] CO2, Plasma 24 22 - 29 mmol/L 02/18/2025 9:38 AM EDT [facility] Anion Gap 12 6 - 16 mmol/L 02/18/2025 9:38 AM EDT [facility] Total Calcium, Plasma 8.9 8.9 - 10.2 mg/dL 02/18/2025 9:38 AM EDT [facility] Total Protein 6.8 6.3 - 7.9 g/dL 02/18/2025 9:38 AM EDT [facility] Albumin, Plasma 4.0 3.5 - 5.2 g/dL 02/18/2025 9:38 AM EDT [facility] AST, Plasma 27 10 - 35 U/L 02/18/2025 9:38 AM EDT [facility] Comment:Hemolyzed, result ma y be falsely increased. ALT, Plasma 19 10 - 35 U/L 02/18/2025 9:38 AM EDT [facility] Alkaline Phosphatase, Plasma 63 46 - 142 U/L 02/18/2025 9:38 AM EDT [facility] Total Bilirubin, Plasma 0.4 0.2 - 1.1 mg/dL 02/18/2025 9:38 AM EDT [facility] eGFRcr 101.7 mL/min/1.7 3m*2 02/18/2025 9:38 AM EDT [facility] Comment:Reported eGFRcr in m L/min/1.73m2 is based the CKD-EPI 2020 equation that does not use a race coefficient. Blood Venous blood specimen / Unknown Venipuncture / Unknown 02/18/2025 8:54 AM EDT 02/18/2025 9:07 AM EDT [facility] LAB BLOOD ORDERABLES Final R esult Performing Organization Address City/[facility]/ZIP Co de Phone Number [facility] [address] [place] [address] * Phosphorus, Plasma (02/18/2025 8:54 AM EDT) Phosphorus, Plasma 3.3 2.5 - 4.5 mg/dL 02/18/2025 9:38 AM EDT [facility] Blood Venous blood specimen / Unknown Venipuncture / Unknown 02/18/2025 8:54 AM EDT 02/18/2025 9:07 AM EDT Anaya Ever [facility] AUTOCUTTER LAB BLOOD ORDERABLES Final R esult [facility] [address] [place] [address] * (ABNORMAL) Magnesium, Plasma (02/18/2025 8:54 AM EDT) Magnesium, Plasma 1.8(L) 1.9 - 2.4 mg/dL 02/18/2025 9:38 AM EDT [facility] Blood Venous blood specimen / Unknown Venipuncture / Unknown 02/18/2025 8:54 AM EDT 02/18/2025 9:07 AM EDT us Anaya Felton AUTOCUTTER LAB BLOOD ORDERABLES Final R esult [facility] [address] [place] [address] * CBC W/O Differential (02/16/2025 9:51 PM EDT) WBC Count 10.03 3.70 - 10.30 10*3/uL LAB HEMATOLOGY METHOD 02/16/2025 10:10 PM EDT [facility] RBC Count 4.58 3.90 - 5.20 10*6/uL LAB HEMATOLOGY METHOD 02/16/2025 10:10 PM EDT [facility] HGB 13.0 11.2 - 15.7 g/dL LAB HEMATOLOGY METHOD 02/16/2025 10:10 PM EDT [facility] HCT 37.4 34.0 - 45.0 % LAB HEMATOLOGY METHOD 02/16/2025 10:10 PM EDT [facility] Platelet Count 365 155 - 369 10*3/uL LAB HEMATOLOGY METHOD 02/16/2025 10:10 PM EDT [facility] MCV 82 79 - 98 fL LAB HEMATOLOGY METHOD 02/16/2025 10:10 PM EDT [facility] MCH 28.4 26.0 - 32.0 pg LAB HEMATOLOGY METHOD 02/16/2025 10:10 PM EDT [facility] MCHC 34.8 30.7 - 35.5 g/dL LAB HEMATOLOGY METHOD 02/16/2025 10:10 PM EDT [facility] RDW 12.6 11.5 - 14.5 % LAB HEMATOLOGY METHOD 02/16/2025 10:10 PM EDT [facility] MPV 9.0 8.8 - 12.5 fL LAB HEMATOLOGY METHOD 02/16/2025 10:10 PM EDT [facility] nRBC 0.0 <=0.0 per 100 WBCs LAB HEMATOLOGY METHOD 02/16/2025 10:10 PM EDT [facility] Blood Venous blood specimen / Unknown Venipuncture / Unknown 02/16/2025 9:51 PM EDT 02/16/2025 10:08 PM EDT us Ned Menendez MD LAB BLOOD ORDERABLES Final Res ult [facility] [address] [place] [address] * (ABNORMAL) Basic Metabolic Panel, Plasma (02/16/2025 9:51 PM EDT) Glucose, Plasma 135(H) 74 - 99 mg/dL 02/16/2025 10:31 PM EDT [facility] BUN, Plasma 9 8 - 23 mg/dL 02/16/2025 10:31 PM EDT [facility] Creatinine, Plasma 0.52(L) 0.60 - 1.10 mg/dL 02/16/2025 10:31 PM EDT [facility] BUN/Creatinine Ratio 17 02/16/2025 10:31 PM EDT [facility] Sodium, Plasma 125(L) 136 - 145 mmol/L 02/16/2025 10:31 PM EDT [facility] Potassium, Plasma 4.0 3.6 - 4.9 mmol/L 02/16/2025 10:31 PM EDT [facility] Chloride, Plasma 91(L) 97 - 107 mmol/L 02/16/2025 10:31 PM EDT [facility] CO2, Plasma 22 22 - 29 mmol/L 02/16/2025 10:31 PM EDT [facility] Anion Gap 12 6 - 16 mmol/L 02/16/2025 10:31 PM EDT [facility] Total Calcium, Plasma 9.7 8.9 - 10.2 mg/dL 02/16/2025 10:31 PM EDT [facility] eGFRcr 102.6 mL/min/1.7 3m*2 02/16/2025 10:31 PM EDT [facility] Comment:Reported eGFRcr in m L/min/1.73m2 is based the CKD-EPI 2020 equation that does not use a race coefficient. Blood Venous blood specimen / Unknown Venipuncture / Unknown 02/16/2025 9:51 PM EDT 02/16/2025 10:08 PM EDT us Ned Menendez MD LAB BLOOD ORDERABLES Final Res ult Performing Organization Address City/[facility]/[place] [address] * (ABNORMAL) Magnesium, Plasma (02/16/2025 9:51 PM EDT) Magnesium, Plasma 1.7(L) 1.9 - 2.4 mg/dL 02/16/2025 10:31 PM EDT [facility] Blood Venous blood specimen / Unknown Venipuncture / Unknown 02/16/2025 9:51 PM EDT 02/16/2025 10:08 PM EDT us Ned Menendez MD LAB BLOOD ORDERABLES Final Res ult Performing Organization Address [facility] [place] [address] * (ABNORMAL) Phosphorus, Plasma (02/16/2025 9:51 PM EDT) Phosphorus, Plasma 2.3(L) 2.5 - 4.5 mg/dL 02/16/2025 10:31 PM EDT [facility] Blood Venous blood specimen / Unknown Venipuncture / Unknown 02/16/2025 9:51 PM EDT 02/16/2025 10:08 PM EDT us Ned Menendez MD LAB BLOOD ORDERABLES Final Res ult Performing Organization Address City/[facility] [place] [address] * Prothrombin Time/INR (02/16/2025 9:51 PM EDT) Prothrombin Time 13.3 12.0 - 14.3 sec 02/16/2025 10:28 PM EDT [facility] INR 1.0 0.9 - 1.1 02/16/2025 10:28 PM EDT [facility] Blood Venous blood specimen / Unknown Venipuncture / Unknown 02/16/2025 9:51 PM EDT 02/16/2025 10:08 PM EDT Narrative [facility] - 02/16/2025 10:28 PM EDT OPTIMAL INR RANGES FOR PATIENT ON ORAL ANTICOAGULANT THERAPY Prevention of venous thromboembolism INR 2.0 to 3.0 In patients with heart disease: Atrial fibrillation INR 2.0 to 3.0 Valvular heart disease INR 2.0 to 3.0 Tissue heart valves INR 2.0 to 3.0 Mechanical prosthetic valves INR 2.5 to 3.5 Prevention of recurrent ME INR 2.5 to 3.5 us Ned Menendez MD LAB BLOOD ORDERABLES Final Res ult Performing Organization Address City/[facility]/ZIP Co de Phone Number [facility] [address] [place] [address] * APTT (02/16/2025 9:51 PM EDT) aPTT 25 25 - 35 sec 02/16/2025 10:28 PM EDT [facility] Blood Venous blood specimen / Unknown Venipuncture / Unknown 02/16/2025 9:51 PM EDT 02/16/2025 10:08 PM EDT us Ned Menendez MD LAB BLOOD ORDERABLES Final Res ult [facility] [address] [place] [address] * Anti Xa Level Unfractionated Heparin (02/16/2025 9:51 PM EDT) Anti Xa Level Unfractionated Heparin <0.11 <1.00 IU/mL 02/16/2025 10:30 PM EDT [facility] Blood Venous blood specimen / Unknown Venipuncture / Unknown 02/16/2025 9:51 PM EDT 02/16/2025 10:08 PM EDT Narrative [facility] - 02/16/2025 10:30 PM EDT Therapeutic Range: UFH Full Dose and ACS/ME protocols*: 0.30 - 0.70 IU/mL UFH Low Dose protocol*: 0.25 - 0.50 IU/mL UFH prophylaxis: Not established us Maximus Ambrocio DO LAB BLOOD ORDERABLES Final Res ult [facility] [address] [place] [address] * MR Head w and wo IV Contrast (02/16/2025 9:07 PM EDT) Anatomical Region Laterality Modality Head Magnetic Resonan ce Impressions 02/16/2025 11:25 PM EDT Heterogeneously enhancing mass in the left insula and temporal lobe. The appearance is most consistent with primary brain neoplasm such as glioblastoma or other high-grade glioma. Metastasis is felt to be less likely. CRITICAL RESULT: No. COMMUNICATION: Per this written report. Drafted by Tanmay Alex MD on 02/16/2025 11:09 PM Final report signed by Tanmay Alex MD on 02/16/2025 11:25 PM Narrative 02/16/2025 11:25 PM EDT CLINICAL INDICATION: new mass on ct TECHNIQUE: Multiplanar multiecho sequences were performed through the brain utilizing T1 and T2 weighting, as well as either axial susceptibility weighted or gradient echo sequences, and axial diffusion weighted images. A coronal post-contrast 1mm thick T1-weighted 3D MP RAGE sequence was performed and multiplanar reformatted images were created. Imaging was performed with and without contrast administration: 11.8 mL of Gadavist. COMPARISON: Head CT February 16, 2025 Brain MRI September 23, 2024 FINDINGS: Diagnostic Quality: Adequate. Heterogeneously enhancing mass again noted in the left posterior insula and extending to the posterior aspect of left temporal lobe and left temporal stem. The mass measures 4.9 x 2.9 cm in the axial plane (image 14 series 15) and 4.1 cm in the craniocaudal dimension (image 17 series 16). There is central nonenhancement noted within the mass and some corresponding susceptibility artifact compatible with internal hemorrhage. The solid components of the mass demonstrate restricted diffusion consistent with hypercellularity. The mass is hypointense on T1- weighted imaging and slightly hyperintense on T2-weighted imaging. There is mass effect with mild effacement of the left lateral ventricle and about 2 mm rightward midline shift. The basal cisterns are preserved. No evidence of hydrocephalus. Mild T2 hyperintensity adjacent to the mass which may be related to edema and/or infiltrating nonenhancing tumor. Vascular Flow Voids: Normal. Paranasal Sinuses and Mastoid Air Cells: Grossly clear. Orbits: No definite masses within the limitations of the study. Extracranial Findings: None. Craniocervical Junction and Skull Base: No tonsillar ectopia or mass is present. Procedure Note Tanmay Alex MD - 02/16/2025 CLINICAL INDICATION: new mass on ct TECHNIQUE: Multiplanar multiecho sequences were performed through the brain utilizingT1 and T2 weighting, as well as either axial susceptibility weighted orgradient echo sequences, and axial diffusion weighted images. A coronalpost-contrast 1mm thick T1- weighted 3D MP RAGE sequence was performed andmultiplanar reformatted images were created. Imaging was performed withand without contrast administration: 11.8 mL of Gadavist. COMPARISON: Head CT February 16, 2025 Brain MRI September 23, 2024 FINDINGS: Diagnostic Quality: Adequate. Heterogeneously enhancing mass again noted in the left posterior insulaand extending to the posterior aspect of left temporal lobe and lefttemporal stem. The mass measures 4.9 x 2.9 cm in the axial plane (image 14series 15) and 4.1 cm in the craniocaudal dimension (image 17 series 16).There is central nonenhancement noted within the mass and somecorresponding susceptibility artifact compatible with internal hemorrhage.The solid components of the mass demonstrate restricted diffusionconsistent with hypercellularity. The mass is hypointense on T1-weightedimaging and slightly hyperintense on T2-weighted imaging. There is masseffect with mild effacement of the left lateral ventricle and about 2 mmrightward midline shift. The basal cisterns are preserved. No evidence ofhydrocephalus. Mild T2 hyperintensity adjacent to the mass which may be related to edemaand/or infiltrating nonenhancing tumor. Vascular Flow Voids: Normal. Paranasal Sinuses and Mastoid Air Cells: Grossly clear. Orbits: No definite masses within the limitations of the study. Extracranial Findings: None. Craniocervical Junction and Skull Base: No tonsillar ectopia or mass ispresent. IMPRESSION: Heterogeneously enhancing mass in the left insula and temporal lobe. Theappearance is most consistent with primary brain neoplasm such asglioblastoma or other high- grade glioma. Metastasis is felt to be lesslikely. CRITICAL RESULT: No. COMMUNICATION: Per this written report. Drafted by Tanmay Alex MD on 02/16/2025 11:09 PM Final report signed by Tanmay Alex MD on 02/16/2025 11:25 PM us Maximus Ambrocio DO IMG MRI PROCEDURES Final Resul t * CT Abdomen Pelvis w IV Contrast (02/16/2025 7:49 PM EDT) Anatomical Region Laterality Modality Abdomen, Pelvis Computed Tomogra phy Impressions 02/16/2025 9:12 PM EDT 1. No acute findings in the chest, abdomen and pelvis. 2. No evidence of metastatic disease or underlying neoplasm in the chest, abdomen and pelvis. CRITICAL RESULT: No. COMMUNICATION: Per this written report. Preliminary report signed by Xiang Goff MD on 02/16/2025 8:48 PM By electronically signing this report, I, the attending physician, attest that I have personally reviewed the images/data for the above examination(s) and agree with the final edited report. Drafted by Xiang Goff MD on 02/16/2025 8:43 PM Final report signed by Johny Win MD on 02/16/2025 9:12 PM Narrative 02/16/2025 9:12 PM EDT CLINICAL INDICATION: Non-small cell lung cancer (NSCLC), metastatic, assess treatment response TECHNIQUE: Imaging of the chest abdomen and pelvis was performed, from thoracic inlet through pubic symphysis, using spiral technique, following administration of IV contrast, Omnipaque 300, 100 mL according to the [address] Chest and CT Abdomen/Pelvis protocol. Delayed (excretory phase) images were performed through the kidneys. Reformatted images in the coronal, sagittal, and oblique planes were generated from the axial data set to facilitate diagnostic accuracy. Total DLP (Dose-Length Product): 1500.35 mGy.cm (accession [id number]), 1500.35 mGy.cm (accession [id number]). Please note: The reported value represents the total of one or more individual components during the CT acquisition on this date and at this time, and as such, the same value may appear in more than one CT report depending on the interpreting/reporting physicians. COMPARISON: None. FINDINGS: Chest: Aorta/Vessels: The thoracic aorta is unremarkable. No large central filling defect within the pulmonary arteries to suggest pulmonary embolism. Pleural/Pericardial Space: No pneumothorax. No pleural effusions. No pericardial effusion. Lymph Nodes: No lymphadenopathy within the chest. Multistation calcified mediastinal nodes. Lungs: Except for minimal dependent atelectasis, the lungs are clear. Mediastinum: Otherwise unremarkable. Chest Wall: No chest wall hematoma or contusion. Bones: No acute fracture within the chest. Abdomen: Liver/Gallbladder/Biliary System: The liver demonstrates homogeneous enhancement. Normal Gallbladder. No intra- or extra-hepatic biliary ductal dilatation. Spleen: The spleen enhances homogeneously. Pancreas: The pancreas enhances homogeneously. Adrenals: The adrenals are morphologically unremarkable. Kidneys: The kidneys demonstrate symmetric nephrogram and excretion. No renal or ureteral calculi. No hydronephrosis. Bowel/Mesentery: The small bowel loops are not dilated. The large bowel loops are not dilated. Mild descending colon and sigmoid diverticulosis without evidence of diverticulitis. The appendix is visualized and normal. Vessels/Lymph Nodes: The abdominal aorta is unremarkable. No lymphadenopathy within the abdomen or pelvis. Fluid Survey: No free fluid in the abdomen. No free fluid in the pelvis. Pelvis: The pelvic viscera are unremarkable. Body Wall: Small fat-containing periumbilical hernia. Bones: No acute fracture within the abdomen or pelvis. Multilevel degenerative changes of the lumbar spine. Grade 1 anterolisthesis of L4 and L5 and retrolisthesis of L5 on S1. Procedure Note Johny Win MD - 02/16/2025 CLINICAL INDICATION: Non-small cell lung cancer (NSCLC), metastatic, assess treatmentresponse TECHNIQUE: Imaging of the chest abdomen and pelvis was performed, from thoracic inletthrough pubic symphysis, using spiral technique, following administrationof IV contrast, Omnipaque 300, [address] mL [address] Chest and CTAbdomen/Pelvis protocol. Delayed (excretory phase) images were performedthrough the kidneys. Reformatted images in the coronal, sagittal, andoblique planes were generated from the axial data set to facilitatediagnostic accuracy. Total DLP (Dose-Length Product): 1500.35 mGy.cm (accession [id number]),1500.35 mGy.cm (accession [id number]). Please note: The reported valuerepresents the total of one or more individual components during the CTacquisition on this date and at this time, and as such, the same value mayappear in more than one CT report depending on the interpreting/reportingphysicians. COMPARISON: None. FINDINGS: Chest: Aorta/Vessels: The thoracic aorta is unremarkable. No large centralfilling defect within the pulmonary arteries to suggest pulmonaryembolism. Pleural/Pericardial Space: No pneumothorax. No pleural effusions. Nopericardial effusion. Lymph Nodes: No lymphadenopathy within the chest. Multistation calcifiedmediastinal nodes. Lungs: Except for minimal dependent atelectasis, the lungs are clear. Mediastinum: Otherwise unremarkable. Chest Wall: No chest wall hematoma or contusion. Bones: No acute fracture within the chest. Abdomen: Liver/Gallbladder/Biliary System: The liver demonstrates homogeneousenhancement. Normal Gallbladder. No intra- or extra-hepatic biliary ductaldilatation. Spleen: The spleen enhances homogeneously. Pancreas: The pancreas enhances homogeneously. Adrenals: The adrenals are morphologically unremarkable. Kidneys: The kidneys demonstrate symmetric nephrogram and excretion. Norenal or ureteral calculi. No hydronephrosis. Bowel/Mesentery: The small bowel loops are not dilated. The large bowelloops are not dilated. Mild descending colon and sigmoid diverticulosiswithout evidence of diverticulitis. The appendix is visualized andnormal. Vessels/Lymph Nodes: The abdominal aorta is unremarkable. Nolymphadenopathy within the abdomen or pelvis. Fluid Survey: No free fluid in the abdomen. No free fluid in the pelvis. Pelvis: The pelvic viscera are unremarkable. Body Wall: Small fat-containing periumbilical hernia. Bones: No acute fracture within the abdomen or pelvis. Multileveldegenerative changes of the lumbar spine. Grade 1 anterolisthesis of L4and L5 and retrolisthesis of L5 on S1. IMPRESSION: 1. No acute findings in the chest, abdomen and pelvis. 2. No evidence of metastatic disease or underlying neoplasm in the chest,abdomen and pelvis. CRITICAL RESULT: No. COMMUNICATION: Per this written report. Preliminary report signed by Xiang Goff MD on 02/16/2025 8:48 PM By electronically signing this report, I, the attending physician, attestthat I have personally reviewed the images/data for the aboveexamination(s) and agree with the final edited report. Drafted by Xiang Goff MD on 02/16/2025 8:43 PM Final report signed by Johny Win MD on 02/16/2025 9:12 PM us Maximus Ambrocio DO IMG CT PROCEDURES Final Result * CT Chest w IV Contrast (02/16/2025 7:49 PM EDT) Anatomical Region Laterality Modality Chest Computed Tomogra phy Impressions 02/16/2025 9:12 PM EDT 1. No acute findings in the chest, abdomen and pelvis. 2. No evidence of metastatic disease or underlying neoplasm in the chest, abdomen and pelvis. CRITICAL RESULT: No. COMMUNICATION: Per this written report. Preliminary report signed by Xiang Goff MD on 02/16/2025 8:48 PM By electronically signing this report, I, the attending physician, attest that I have personally reviewed the images/data for the above examination(s) and agree with the final edited report. Drafted by Xiang Goff MD on 02/16/2025 8:43 PM Final report signed by Johny Win MD on 02/16/2025 9:12 PM Narrative 02/16/2025 9:12 PM EDT CLINICAL INDICATION: Non-small cell lung cancer (NSCLC), metastatic, assess treatment response TECHNIQUE: Imaging of the chest abdomen and pelvis was performed, from thoracic inlet through pubic symphysis, using spiral technique, following administration of IV contrast, Omnipaque 300, 100 mL [address] to the CT Chest and CT Abdomen/Pelvis protocol. Delayed (excretory phase) images were performed through the kidneys. Reformatted images in the coronal, sagittal, and oblique planes were generated from the axial data set to facilitate diagnostic accuracy. Total DLP (Dose-Length Product): 1500.35 mGy.cm (accession [id number]), 1500.35 mGy.cm (accession [id number]). Please note: The reported value represents the total of one or more individual components during the CT acquisition on this date and at this time, and as such, the same value may appear in more than one CT report depending on the interpreting/reporting physicians. COMPARISON: None. FINDINGS: Chest: Aorta/Vessels: The thoracic aorta is unremarkable. No large central filling defect within the pulmonary arteries to suggest pulmonary embolism. Pleural/Pericardial Space: No pneumothorax. No pleural effusions. No pericardial effusion. Lymph Nodes: No lymphadenopathy within the chest. Multistation calcified mediastinal nodes. Lungs: Except for minimal dependent atelectasis, the lungs are clear. Mediastinum: Otherwise unremarkable. Chest Wall: No chest wall hematoma or contusion. Bones: No acute fracture within the chest. Abdomen: Liver/Gallbladder/Biliary System: The liver demonstrates homogeneous enhancement. Normal Gallbladder. No intra- or extra-hepatic biliary ductal dilatation. Spleen: The spleen enhances homogeneously. Pancreas: The pancreas enhances homogeneously. Adrenals: The adrenals are morphologically unremarkable. Kidneys: The kidneys demonstrate symmetric nephrogram and excretion. No renal or ureteral calculi. No hydronephrosis. Bowel/Mesentery: The small bowel loops are not dilated. The large bowel loops are not dilated. Mild descending colon and sigmoid diverticulosis without evidence of diverticulitis. The appendix is visualized and normal. Vessels/Lymph Nodes: The abdominal aorta is unremarkable. No lymphadenopathy within the abdomen or pelvis. Fluid Survey: No free fluid in the abdomen. No free fluid in the pelvis. Pelvis: The pelvic viscera are unremarkable. Body Wall: Small fat-containing periumbilical hernia. Bones: No acute fracture within the abdomen or pelvis. Multilevel degenerative changes of the lumbar spine. Grade 1 anterolisthesis of L4 and L5 and retrolisthesis of L5 on S1. Procedure Note Johny Win MD - 02/16/2025 CLINICAL INDICATION: Non-small cell lung cancer (NSCLC), metastatic, assess treatmentresponse TECHNIQUE: Imaging of the chest abdomen and pelvis was performed, from thoracic inletthrough pubic symphysis, using spiral technique, following administrationof IV contrast, Omnipaque 300, [address] Chest and CTAbdomen/Pelvis protocol. Delayed (excretory phase) images were performedthrough the kidneys. Reformatted images in the coronal, sagittal, andoblique planes were generated from the axial data set to facilitatediagnostic accuracy. Total DLP (Dose-Length Product): 1500.35 mGy.cm (accession [id number]),1500.35 mGy.cm (accession [id number]). Please note: The reported valuerepresents the total of one or more individual components during the CTacquisition on this date and at this time, and as such, the same value mayappear in more than one CT report depending on the interpreting/reportingphysicians. COMPARISON: None. FINDINGS: Chest: Aorta/Vessels: The thoracic aorta is unremarkable. No large centralfilling defect within the pulmonary arteries to suggest pulmonaryembolism. Pleural/Pericardial Space: No pneumothorax. No pleural effusions. Nopericardial effusion. Lymph Nodes: No lymphadenopathy within the chest. Multistation calcifiedmediastinal nodes. Lungs: Except for minimal dependent atelectasis, the lungs are clear. Mediastinum: Otherwise unremarkable. Chest Wall: No chest wall hematoma or contusion. Bones: No acute fracture within the chest. Abdomen: Liver/Gallbladder/Biliary System: The liver demonstrates homogeneousenhancement. Normal Gallbladder. No intra- or extra-hepatic biliary ductaldilatation. Spleen: The spleen enhances homogeneously. Pancreas: The pancreas enhances homogeneously. Adrenals: The adrenals are morphologically unremarkable. Kidneys: The kidneys demonstrate symmetric nephrogram and excretion. Norenal or ureteral calculi. No hydronephrosis. Bowel/Mesentery: The small bowel loops are not dilated. The large bowelloops are not dilated. Mild descending colon and sigmoid diverticulosiswithout evidence of diverticulitis. The appendix is visualized andnormal. Vessels/Lymph Nodes: The abdominal aorta is unremarkable. Nolymphadenopathy within the abdomen or pelvis. Fluid Survey: No free fluid in the abdomen. No free fluid in the pelvis. Pelvis: The pelvic viscera are unremarkable. Body Wall: Small fat-containing periumbilical hernia. Bones: No acute fracture within the abdomen or pelvis. Multileveldegenerative changes of the lumbar spine. Grade 1 anterolisthesis of L4and L5 and retrolisthesis of L5 on S1. IMPRESSION: 1. No acute findings in the chest, abdomen and pelvis. 2. No evidence of metastatic disease or underlying neoplasm in the chest,abdomen and pelvis. CRITICAL RESULT: No. COMMUNICATION: Per this written report. Preliminary report signed by Xiang Goff MD on 02/16/2025 8:48 PM By electronically signing this report, I, the attending physician, abeat I have personally reviewed the images/data for the aboveexamination(s) and agree with the final edited report. Drafted by Xiang Goff MD on 02/16/2025 8:43 PM Final report signed by Johny Win MD on 02/16/2025 9:12 PM us Maximus Ambrocio DO IMG CT PROCEDURES Final Result * P2Y12 Platelet Receptor Blockade, Verify Now PRU (02/16/2025 7:25 PM EDT) P2Y12 PRU 201 194 - 418 PRU 02/16/2025 7:43 PM EDT [facility] Blood Venous blood specimen / Unknown Venipuncture / Unknown 02/16/2025 7:25 PM EDT 02/16/2025 7:31 PM EDT Narrative [facility] - 02/16/2025 7:43 PM EDT P2Y12 Result Interpretation: P2Y12 values < 194 PRU (low end of reference range) are specific evidence of a P2Y12 inhibitor effect. Test results are in P2Y12 reaction units (PRU). This measures the extent of platelet aggregation in the presence of P2Y12 inhibitor drugs such as clopidogrel (Plavix), prasugrel (Effient), ticagrelor (Brilinta), and ticlopidine (Ticlid). Patients who have been treated with Glycoprotein IIb/IIIa inhibitors should not be tested until platelet function has recovered. This time period is approximately 14 days after discontinuation of abciximab (ReoPro) and up to 48 hours after discontinuation of eptifibatide (Integrilin) and tirofiban (Aggrastat). Result may not be valid for platelet counts < 120 k/uL. The P2Y12 test results should be interpreted in conjunction with other clinical and laboratory data available to the clinician. Testing performed in the [facility]. us Maximus Ambrocio DO LAB BLOOD ORDERABLES Final Res ult [facility] [address] [place] [address] * (ABNORMAL) CBC and Differential (02/16/2025 6:10 PM EDT) WBC Count 10.56(H) 3.70 - 10.30 10*3/uL LAB HEMATOLOGY METHOD 02/16/2025 6:18 PM EDT [facility] RBC Count 4.68 3.90 - 5.20 10*6/uL LAB HEMATOLOGY METHOD 02/16/2025 6:18 PM EDT [facility] HGB 13.2 11.2 - 15.7 g/dL LAB HEMATOLOGY METHOD 02/16/2025 6:18 PM EDT [facility] HCT 39.0 34.0 - 45.0 % LAB HEMATOLOGY METHOD 02/16/2025 6:18 PM EDT [facility] Platelet Count 348 155 - 369 10*3/uL LAB HEMATOLOGY METHOD 02/16/2025 6:18 PM EDT [facility] MCV 83 79 - 98 fL LAB HEMATOLOGY METHOD 02/16/2025 6:18 PM EDT [facility] MCH 28.2 26.0 - 32.0 pg LAB HEMATOLOGY METHOD 02/16/2025 6:18 PM EDT [facility] MCHC 33.8 30.7 - 35.5 g/dL LAB HEMATOLOGY METHOD 02/16/2025 6:18 PM EDT [facility] RDW 12.6 11.5 - 14.5 % LAB HEMATOLOGY METHOD 02/16/2025 6:18 PM EDT [facility] MPV 8.9 8.8 - 12.5 fL LAB HEMATOLOGY METHOD 02/16/2025 6:18 PM EDT [facility] nRBC 0.0 <=0.0 per 100 WBCs LAB HEMATOLOGY METHOD 02/16/2025 6:18 PM EDT [facility] Differential Type Automated LAB HEMATOLOGY METHOD 02/16/2025 6:18 PM EDT [facility] Neutrophils % 69 % LAB HEMATOLOGY METHOD 02/16/2025 6:18 PM EDT [facility] Lymphocytes % 23 % LAB HEMATOLOGY METHOD 02/16/2025 6:18 PM EDT [facility] Monocytes % 7 % LAB HEMATOLOGY METHOD 02/16/2025 6:18 PM EDT [facility] Eosinophils % 0 % LAB HEMATOLOGY METHOD 02/16/2025 6:18 PM EDT [facility] Basophils % 1 % LAB HEMATOLOGY METHOD 02/16/2025 6:18 PM EDT [facility] Immature Granulocytes % 0 % LAB HEMATOLOGY METHOD 02/16/2025 6:18 PM EDT [facility] Neutrophils Absolute 7.33(H) 1.60 - 6.10 10*3/uL LAB HEMATOLOGY METHOD 02/16/2025 6:18 PM EDT [facility] Lymphocytes Absolute 2.38 1.20 - 3.90 10*3/uL LAB HEMATOLOGY METHOD 02/16/2025 6:18 PM EDT [facility] Monocytes Absolute 0.73 0.30 - 0.90 10*3/uL LAB HEMATOLOGY METHOD 02/16/2025 6:18 PM EDT [facility] Eosinophils Absolute 0.03 0.00 - 0.50 10*3/uL LAB HEMATOLOGY METHOD 02/16/2025 6:18 PM EDT [facility] Basophils Absolute 0.05 0.00 - 0.10 10*3/uL LAB HEMATOLOGY METHOD 02/16/2025 6:18 PM EDT [facility] Immature Granulocytes Absolute 0.04 0.00 - 0.06 10*3/uL LAB HEMATOLOGY METHOD 02/16/2025 6:18 PM EDT [facility] Blood Venous blood specimen / Unknown Venipuncture / Unknown 02/16/2025 6:10 PM EDT 02/16/2025 6:14 PM EDT [facility] - 02/16/2025 6:18 PM EDT Therapeutic decision making should be based on absolute values, rather than percentages. us Maximus Ambrocio DO LAB BLOOD ORDERABLES Final Res ult [facility] [address] [place] [address] * (ABNORMAL) Comprehensive Metabolic Panel, Plasma (02/16/2025 6:10 PM EDT) Pathologist [facility] Glucose, Plasma 102(H) 74 - 99 mg/dL 02/16/2025 6:35 PM EDT [facility] BUN, Plasma 11 8 - 23 mg/dL 02/16/2025 6:35 PM EDT [facility] Creatinine, Plasma 0.57(L) 0.60 - 1.10 mg/dL 02/16/2025 6:35 PM EDT [facility] BUN/Creatinine Ratio 19 02/16/2025 6:35 PM EDT [facility] Sodium, Plasma 126(L) 136 - 145 mmol/L 02/16/2025 6:35 PM EDT [facility] Potassium, Plasma 4.2 3.6 - 4.9 mmol/L 02/16/2025 6:35 PM EDT [facility] Comment:Hemolyzed, result ma y be falsely increased. Chloride, Plasma 91(L) 97 - 107 mmol/L 02/16/2025 6:35 PM EDT [facility] CO2, Plasma 22 22 - 29 mmol/L 02/16/2025 6:35 PM EDT [facility] Anion Gap 13 6 - 16 mmol/L 02/16/2025 6:35 PM EDT [facility] Total Calcium, Plasma 9.7 8.9 - 10.2 mg/dL 02/16/2025 6:35 PM EDT [facility] Total Protein 7.7 6.3 - 7.9 g/dL 02/16/2025 6:35 PM EDT [facility] Albumin, Plasma 4.6 3.5 - 5.2 g/dL 02/16/2025 6:35 PM EDT [facility] AST, Plasma 30 10 - 35 U/L 02/16/2025 6:35 PM EDT [facility] Comment:Hemolyzed, result ma y be falsely increased. ALT, Plasma 22 10 - 35 U/L 02/16/2025 6:35 PM EDT [facility] Alkaline Phosphatase, Plasma 70 46 - 142 U/L 02/16/2025 6:35 PM EDT [facility] Total Bilirubin, Plasma 0.3 0.2 - 1.1 mg/dL 02/16/2025 6:35 PM EDT [facility] eGFRcr 100.4 mL/min/1.7 3m*2 02/16/2025 6:35 PM EDT [facility] Comment:Reported eGFRcr in m L/min/1.73m2 is based the CKD-EPI 2020 equation that does not use a race coefficient. Blood Venous blood specimen / Unknown Venipuncture / Unknown 02/16/2025 6:10 PM EDT 02/16/2025 6:14 PM EDT Ele.me DO LAB BLOOD ORDERABLES Final Res ult Performing Organization Address City/[facility]/ZIP Co de Phone Number [facility] [address] [place] [address] * (ABNORMAL) APTT (02/16/2025 6:10 PM EDT) aPTT 23(L) 25 - 35 sec 02/16/2025 6:32 PM EDT [facility] Blood Venous blood specimen / Unknown Venipuncture / Unknown 02/16/2025 6:10 PM EDT 02/16/2025 6:14 PM EDT bewarketer DO LAB BLOOD ORDERABLES Final Res ult Performing Organization Address City/[facility]/ZIP Co de Phone Number [facility] [address] [place] [address] * Prothrombin Time/INR (02/16/2025 6:10 PM EDT) Prothrombin Time 12.7 12.0 - 14.3 sec 02/16/2025 6:32 PM EDT [facility] INR 1.0 0.9 - 1.1 02/16/2025 6:32 PM EDT [facility] Blood Venous blood specimen / Unknown Venipuncture / Unknown 02/16/2025 6:10 PM EDT 02/16/2025 6:14 PM EDT Narrative [facility] - 02/16/2025 6:32 PM EDT OPTIMAL INR RANGES FOR PATIENT ON ORAL ANTICOAGULANT THERAPY Prevention of venous thromboembolism INR 2.0 to 3.0 In patients with heart disease: Atrial fibrillation INR 2.0 to 3.0 Valvular heart disease INR 2.0 to 3.0 Tissue heart valves INR 2.0 to 3.0 Mechanical prosthetic valves INR 2.5 to 3.5 Prevention of recurrent ME INR 2.5 to 3.5 [facility]LES Final Res ult Performing Organization Address City/[facility]/ZIP Co de Phone Number [facility] [address] [place] [address] * Type and Screen (02/16/2025 6:10 PM EDT) ABO/Rh A Positive 02/16/2025 5:59 PM EDT [facility] Antibody Screen Negative 02/16/2025 5:59 PM EDT [facility] Specimen Expiration 02/19/2025 23:59 02/16/2025 5:59 PM EDT [facility] Blood Venous blood specimen / Unknown Venipuncture / Unknown 02/16/2025 6:10 PM EDT 02/16/2025 6:13 PM EDT [facility] TEST ORDERABLES Final Result Performing Organization Address [facility] de Phone Number BLOOD BANK [address] [place] [address], * CT Head w and wo IV Contrast (02/16/2025 3:41 PM EDT) Anatomical Region Laterality Modality Head Computed Tomogra phy Impressions 02/16/2025 6:[address]: Mass noted in the left insula and posterior temporal region. This is most concerning for primary brain neoplasm and can be further evaluated with MRI. Neck CTA: 1. Possible fibromuscular dysplasia in the cervical internal carotid arteries bilaterally. 2. Moderate stenosis of the cervical right vertebral artery. Head CTA: No hemodynamically significant intracranial arterial stenosis or aneurysm is present. CRITICAL RESULT: No. COMMUNICATION: These findings were discussed with Jewel Mora MD at 02/16/2025 5:54 PM by Tanmay Alex MD via [employer]. Drafted by Tanmay Alex MD on 02/16/2025 5:51 PM Final report signed by Tanmay Alex MD on 02/16/2025 6:18 PM Narrative 02/16/2025 6:18 PM EDT CLINICAL INDICATION: Transient ischemic attack (TIA) TECHNIQUE: Head CT: Spiral axial CT images of the head were obtained with and without contrast administration. Head CTA: Axial images were obtained through the head during contrast bolus injection and multiplanar MIP images were created. Neck CTA: Axial images were obtained through the neck during bolus contrast injection and multiplanar reformatted and MIP images were created. 60 mL of Omnipaque 350 were administered intravenously. TOTAL DLP (Dose-Length Product): 743.50 mGy.cm (accession [id number]), 743.50 mGy.cm (accession [id number]), 743.50 mGy.cm (accession [id number]). Please note: The reported value represents the total of one or more individual components during the CT acquisition on this date and at this time, and as such, the same value may appear in more than one CT report depending on the interpreting/reporting physicians. COMPARISON: MRI head September 23, 2024 CTA head/neck September 25, 2024 FINDINGS: HEAD CT: Study Quality: Adequate. Enhancing predominantly solid mass with central low-attenuation in the left posterior insula and adjacent posterior temporal region measuring about 5 x 3 cm (image 19 series 12). The solid components of the mass are slightly higher in attenuation than willard matter suggesting hypercellularity. This is in the location of signal abnormality seen on prior MRI and is most concerning for primary brain neoplasm. There is mass effect with partial effacement of left lateral ventricle and 2 mm rightward midline shift. The basal cisterns are preserved. No evidence of hydrocephalus or acute intracranial hemorrhage. Soft Tissues: No significant soft tissue swelling is present. Skull: There are no calvarial destructive lesions or fractures. Sinuses and Mastoids: The visualized portions of the paranasal sinuses are clear. The mastoid air cells are clear. Neck CTA: Diagnostic Quality: There is artifact within the neck and superior mediastinum, in part due to dense venous contrast bolus. Aorta and Great Vessel Origins: Conventional branching pattern. No significant stenosis of the origins of the great arteries. Right Cervical Carotid System: Mild calcified atherosclerotic plaque at the common carotid bifurcation. 0% stenosis at the carotid bulb by NASCET criteria. Mild undulating irregularity of the internal carotid artery in the mid cervical segment which may be related to fibromuscular dysplasia or atherosclerosis. Retropharyngeal course of the proximal cervical ICA. Left Cervical Carotid System: Mild calcified atherosclerotic plaque at the common carotid bifurcation. 0% stenosis at the carotid bulb by NASCET criteria. Mild undulating irregularity of the internal carotid artery in the distal cervical segment which may be related to fibromuscular dysplasia or atherosclerosis. Retropharyngeal course of distal common and proximal internal carotid artery. Vertebral arteries: Multifocal moderate stenosis at the proximal V2 segment of the right vertebral artery. Mild stenosis at the P2 segment of the left vertebral artery. Other Findings: Multilevel degenerative changes in the cervical spine. Head CTA: Diagnostic Quality: Adequate Vertebrobasilar System: The intradural vertebral arteries are patent without significant stenosis. The basilar artery and its major branches are within normal limits. There is no aneurysm. Carotid Arteries: Atherosclerosis: No significant atherosclerosis. Right ICA: No significant stenosis. Left ICA: No significant stenosis. Other Findings: No aneurysm of either internal carotid artery. [place] and Major Peripheral Branches: There is no significant stenosis or occlusion. There is no aneurysm. Other Findings: None. Procedure Note Tanmay Alex MD - 02/16/2025 CLINICAL INDICATION: Transient ischemic attack (TIA) TECHNIQUE: Head CT: Spiral axial CT images of the head were obtained with and withoutcontrast administration. Head CTA: Axial images were obtained through the head during contrastbolus injection and multiplanar MIP images were created. Neck CTA: Axial images were obtained through the neck during boluscontrast injection and multiplanar reformatted and MIP images werecreated. 60 mL of Omnipaque 350 were administered intravenously. TOTAL DLP (Dose-Length Product): 743.50 mGy.cm (accession [id number]),743.50 mGy.cm (accession [id number]), 743.50 mGy.cm (accession [id number]).Please note: The reported value represents the total of one or moreindividual components during the CT acquisition on this date and at thistime, and as such, the same value may appear in more than one CT reportdepending on the interpreting/reporting physicians. COMPARISON: MRI head September 23, 2024 CTA head/neck September 25, 2024 FINDINGS: HEAD CT: Study Quality: Adequate. Enhancing predominantly solid mass with central low-attenuation in theleft posterior insula and adjacent posterior temporal region measuringabout 5 x 3 cm (image 19 series 12). The solid components of the mass areslightly higher in attenuation than willard matter suggestinghypercellularity. This is in the location of signal abnormality seen onprior MRI and is most concerning for primary brain neoplasm. There is masseffect with partial effacement of left lateral ventricle and 2 mmrightward midline shift. The basal cisterns are preserved. No evidence of hydrocephalus or acute intracranial hemorrhage. Soft Tissues: No significant soft tissue swelling is present. Skull: There are no calvarial destructive lesions or fractures. Sinuses and Mastoids: The visualized portions of the paranasal sinuses areclear. The mastoid air cells are clear. Neck CTA: Diagnostic Quality: There is artifact within the neck and superiormediastinum, in part due to dense venous contrast bolus. Aorta and Great Vessel Origins: Conventional branching pattern. Nosignificant stenosis of the origins of the great arteries. Right Cervical Carotid System: Mild calcified atherosclerotic plaque atthe common carotid bifurcation. 0% stenosis at the carotid bulb by NASCETcriteria. Mild undulating irregularity of the internal carotid artery inthe mid cervical segment which may be related to fibromuscular dysplasiaor atherosclerosis. Retropharyngeal course of the proximal cervical ICA. Left Cervical Carotid System: Mild calcified atherosclerotic plaque at thecommon carotid bifurcation. 0% stenosis at the carotid bulb by NASCETcriteria. Mild undulating irregularity of the internal carotid artery inthe distal cervical segment which may be related to fibromusculardysplasia or atherosclerosis. Retropharyngeal course of distal common andproximal internal carotid artery. Vertebral arteries: Multifocal moderate stenosis at the proximal [id number] of the right vertebral artery. Mild stenosis at the P2 segment ofthe left vertebral artery. Other Findings: Multilevel degenerative changes in the cervical spine. Head CTA: Diagnostic Quality: Adequate Vertebrobasilar System: The intradural vertebral arteries are patentwithout significant stenosis. The basilar artery and its major branchesare within normal limits. There is no aneurysm. Carotid Arteries: Atherosclerosis: No significant atherosclerosis. Right ICA: No significant stenosis. Left ICA: No significant stenosis. Other Findings: No aneurysm of either internal carotid artery. [place] and Major Peripheral Branches: There is no significantstenosis or occlusion. There is no aneurysm. Other Findings: None. IMPRESSION: Head CT: Mass noted in the left insula and posterior temporal region. This is mostconcerning for primary brain neoplasm and can be further evaluated withMRI. Neck CTA: 1.Possible fibromuscular dysplasia in the cervical internal carotidarteries bilaterally. 2.Moderate stenosis of the cervical right vertebral artery. Head CTA: No hemodynamically significant intracranial arterial stenosis or aneurysmis present. CRITICAL RESULT: No. COMMUNICATION: These findings were discussed with Jewel Mora MD at 02/16/2025 5:54 PMby Tanmay Alex MD via [employer]. Drafted by Tanmay Alex MD on 02/16/2025 5:51 PM Final report signed by Tanmay Alex MD on 02/16/2025 6:18 PM us Maximus Ambrocio DO IMG CT PROCEDURES Final Result * CT Angio Neck (02/16/2025 3:41 PM EDT) Anatomical Region Laterality Modality Carotid Artery Computed Tomogra phy Impressions 02/16/2025 6:[address]: Mass noted in the left insula and posterior temporal region. This is most concerning for primary brain neoplasm and can be further evaluated with MRI. Neck CTA: 1. Possible fibromuscular dysplasia in the cervical internal carotid arteries bilaterally. 2. Moderate stenosis of the cervical right vertebral artery. Head CTA: No hemodynamically significant intracranial arterial stenosis or aneurysm is present. CRITICAL RESULT: No. COMMUNICATION: These findings were discussed with Jewel Mora MD at 02/16/2025 5:54 PM by Tanmay Alex MD via [employer]. Drafted by Tanmay Alex MD on 02/16/2025 5:51 PM Final report signed by Tanmay Alex MD on 02/16/2025 6:18 PM Narrative 02/16/2025 6:18 PM EDT CLINICAL INDICATION: Transient ischemic attack (TIA) TECHNIQUE: Head CT: Spiral axial CT images of the head were obtained with and without contrast administration. Head CTA: Axial images were obtained through the head during contrast bolus injection and multiplanar MIP images were created. Neck CTA: Axial images were obtained through the neck during bolus contrast injection and multiplanar reformatted and MIP images were created. 60 mL of Omnipaque 350 were administered intravenously. TOTAL DLP (Dose-Length Product): 743.50 mGy.cm (accession [id number]), 743.50 mGy.cm (accession [id number]), 743.50 mGy.cm (accession [id number]). Please note: The reported value represents the total of one or more individual components during the CT acquisition on this date and at this time, and as such, the same value may appear in more than one CT report depending on the interpreting/reporting physicians. COMPARISON: MRI head September 23, 2024 CTA head/neck September 25, 2024 FINDINGS: HEAD CT: Study Quality: Adequate. Enhancing predominantly solid mass with central low-attenuation in the left posterior insula and adjacent posterior temporal region measuring about 5 x 3 cm (image 19 series 12). The solid components of the mass are slightly higher in attenuation than willard matter suggesting hypercellularity. This is in the location of signal abnormality seen on prior MRI and is most concerning for primary brain neoplasm. There is mass effect with partial effacement of left lateral ventricle and 2 mm rightward midline shift. The basal cisterns are preserved. No evidence of hydrocephalus or acute intracranial hemorrhage. Soft Tissues: No significant soft tissue swelling is present. Skull: There are no calvarial destructive lesions or fractures. Sinuses and Mastoids: The visualized portions of the paranasal sinuses are clear. The mastoid air cells are clear. Neck CTA: Diagnostic Quality: There is artifact within the neck and superior mediastinum, in part due to dense venous contrast bolus. Aorta and Great Vessel Origins: Conventional branching pattern. No significant stenosis of the origins of the great arteries. Right Cervical Carotid System: Mild calcified atherosclerotic plaque at the common carotid bifurcation. 0% stenosis at the carotid bulb by NASCET criteria. Mild undulating irregularity of the internal carotid artery in the mid cervical segment which may be related to fibromuscular dysplasia or atherosclerosis. Retropharyngeal course of the proximal cervical ICA. Left Cervical Carotid System: Mild calcified atherosclerotic plaque at the common carotid bifurcation. 0% stenosis at the carotid bulb by NASCET criteria. Mild undulating irregularity of the internal carotid artery in the distal cervical segment which may be related to fibromuscular dysplasia or atherosclerosis. Retropharyngeal course of distal common and proximal internal carotid artery. Vertebral arteries: Multifocal moderate stenosis at the proximal V2 segment of the right vertebral artery. Mild stenosis at the P2 segment of the left vertebral artery. Other Findings: Multilevel degenerative changes in the cervical spine. Head CTA: Diagnostic Quality: Adequate Vertebrobasilar System: The intradural vertebral arteries are patent without significant stenosis. The basilar artery and its major branches are within normal limits. There is no aneurysm. Carotid Arteries: Atherosclerosis: No significant atherosclerosis. Right ICA: No significant stenosis. Left ICA: No significant stenosis. Other Findings: No aneurysm of either internal carotid artery. [place] and Major Peripheral Branches: There is no significant stenosis or occlusion. There is no aneurysm. Other Findings: None. Procedure Note Tanmay Alex MD - 02/16/2025 CLINICAL INDICATION: Transient ischemic attack (TIA) TECHNIQUE: Head CT: Spiral axial CT images of the head were obtained with and withoutcontrast administration. Head CTA: Axial images were obtained through the head during contrastbolus injection and multiplanar MIP images were created. Neck CTA: Axial images were obtained through the neck during boluscontrast injection and multiplanar reformatted and MIP images werecreated. 60 mL of Omnipaque 350 were administered intravenously. TOTAL DLP (Dose-Length Product): 743.50 mGy.cm (accession [id number]),743.50 mGy.cm (accession [id number]), 743.50 mGy.cm (accession [id number]).Please note: The reported value represents the total of one or moreindividual components during the CT acquisition on this date and at thistime, and as such, the same value may appear in more than one CT reportdepending on the interpreting/reporting physicians. COMPARISON: MRI head September 23, 2024 CTA head/neck September 25, 2024 FINDINGS: HEAD CT: Study Quality: Adequate. Enhancing predominantly solid mass with central low-attenuation in theleft posterior insula and adjacent posterior temporal region measuringabout 5 x 3 cm (image 19 series 12). The solid components of the mass areslightly higher in attenuation than willard matter suggestinghypercellularity. This is in the location of signal abnormality seen onprior MRI and is most concerning for primary brain neoplasm. There is masseffect with partial effacement of left lateral ventricle and 2 mmrightward midline shift. The basal cisterns are preserved. No evidence of hydrocephalus or acute intracranial hemorrhage. Soft Tissues: No significant soft tissue swelling is present. Skull: There are no calvarial destructive lesions or fractures. Sinuses and Mastoids: The visualized portions of the paranasal sinuses areclear. The mastoid air cells are clear. Neck CTA: Diagnostic Quality: There is artifact within the neck and superiormediastinum, in part due to dense venous contrast bolus. Aorta and Great Vessel Origins: Conventional branching pattern. Nosignificant stenosis of the origins of the great arteries. Right Cervical Carotid System: Mild calcified atherosclerotic plaque atthe common carotid bifurcation. 0% stenosis at the carotid bulb by NASCETcriteria. Mild undulating irregularity of the internal carotid artery inthe mid cervical segment which may be related to fibromuscular dysplasiaor atherosclerosis. Retropharyngeal course of the proximal cervical ICA. Left Cervical Carotid System: Mild calcified atherosclerotic plaque at thecommon carotid bifurcation. 0% stenosis at the carotid bulb by NASCETcriteria. Mild undulating irregularity of the internal carotid artery inthe distal cervical segment which may be related to fibromusculardysplasia or atherosclerosis. Retropharyngeal course of distal common andproximal internal carotid artery. Vertebral arteries: Multifocal moderate stenosis at the proximal [id number] of the right vertebral artery. Mild stenosis at the P2 segment ofthe left vertebral artery. Other Findings: Multilevel degenerative changes in the cervical spine. Head CTA: Diagnostic Quality: Adequate Vertebrobasilar System: The intradural vertebral arteries are patentwithout significant stenosis. The basilar artery and its major branchesare within normal limits. There is no aneurysm. Carotid Arteries: Atherosclerosis: No significant atherosclerosis. Right ICA: No significant stenosis. Left ICA: No significant stenosis. Other Findings: No aneurysm of either internal carotid artery. [place] and Major Peripheral Branches: There is no significantstenosis or occlusion. There is no aneurysm. Other Findings: None. IMPRESSION: Head CT: Mass noted in the left insula and posterior temporal region. This is mostconcerning for primary brain neoplasm and can be further evaluated withMRI. Neck CTA: 1.Possible fibromuscular dysplasia in the cervical internal carotidarteries bilaterally. 2.Moderate stenosis of the cervical right vertebral artery. Head CTA: No hemodynamically significant intracranial arterial stenosis or aneurysmis present. CRITICAL RESULT: No. COMMUNICATION: These findings were discussed with Jewel Mora MD at 02/16/2025 5:54 PMby Tanmay Alex MD via WebNotes. Drafted by Tanmay Alex MD on 02/16/2025 5:51 PM Final report signed by Tanmay Alex MD on 02/16/2025 6:18 PM us Kami Amin DO IMG CT PROCEDURES Final Resul t * CT Angio Head (02/16/2025 3:41 PM EDT) Anatomical Region Laterality Modality [place] Computed Tomogr aphy Impressions 02/16/2025 6:[address]: Mass noted in the left insula and posterior temporal region. This is most concerning for primary brain neoplasm and can be further evaluated with MRI. Neck CTA: 1. Possible fibromuscular dysplasia in the cervical internal carotid arteries bilaterally. 2. Moderate stenosis of the cervical right vertebral artery. Head CTA: No hemodynamically significant intracranial arterial stenosis or aneurysm is present. CRITICAL RESULT: No. COMMUNICATION: These findings were discussed with Jewel Moar MD at 02/16/2025 5:54 PM by Tanmay Alex MD via WebNotes. Drafted by Tanmay Alex MD on 02/16/2025 5:51 PM Final report signed by Tanmay Alex MD on 02/16/2025 6:18 PM Narrative 02/16/2025 6:18 PM EDT CLINICAL INDICATION: Transient ischemic attack (TIA) TECHNIQUE: Head CT: Spiral axial CT images of the head were obtained with and without contrast administration. Head CTA: Axial images were obtained through the head during contrast bolus injection and multiplanar MIP images were created. Neck CTA: Axial images were obtained through the neck during bolus contrast injection and multiplanar reformatted and MIP images were created. 60 mL of Omnipaque 350 were administered intravenously. TOTAL DLP (Dose-Length Product): 743.50 mGy.cm (accession [id number]), 743.50 mGy.cm (accession [id number]), 743.50 mGy.cm (accession [id number]). Please note: The reported value represents the total of one or more individual components during the CT acquisition on this date and at this time, and as such, the same value may appear in more than one CT report depending on the interpreting/reporting physicians. COMPARISON: MRI head September 23, 2024 CTA head/neck September 25, 2024 FINDINGS: HEAD CT: Study Quality: Adequate. Enhancing predominantly solid mass with central low-attenuation in the left posterior insula and adjacent posterior temporal region measuring about 5 x 3 cm (image 19 series 12). The solid components of the mass are slightly higher in attenuation than willard matter suggesting hypercellularity. This is in the location of signal abnormality seen on prior MRI and is most concerning for primary brain neoplasm. There is mass effect with partial effacement of left lateral ventricle and 2 mm rightward midline shift. The basal cisterns are preserved. No evidence of hydrocephalus or acute intracranial hemorrhage. Soft Tissues: No significant soft tissue swelling is present. Skull: There are no calvarial destructive lesions or fractures. Sinuses and Mastoids: The visualized portions of the paranasal sinuses are clear. The mastoid air cells are clear. Neck CTA: Diagnostic Quality: There is artifact within the neck and superior mediastinum, in part due to dense venous contrast bolus. Aorta and Great Vessel Origins: Conventional branching pattern. No significant stenosis of the origins of the great arteries. Right Cervical Carotid System: Mild calcified atherosclerotic plaque at the common carotid bifurcation. 0% stenosis at the carotid bulb by NASCET criteria. Mild undulating irregularity of the internal carotid artery in the mid cervical segment which may be related to fibromuscular dysplasia or atherosclerosis. Retropharyngeal course of the proximal cervical ICA. Left Cervical Carotid System: Mild calcified atherosclerotic plaque at the common carotid bifurcation. 0% stenosis at the carotid bulb by NASCET criteria. Mild undulating irregularity of the internal carotid artery in the distal cervical segment which may be related to fibromuscular dysplasia or atherosclerosis. Retropharyngeal course of distal common and proximal internal carotid artery. Vertebral arteries: Multifocal moderate stenosis at the proximal V2 segment of the right vertebral artery. Mild stenosis at the P2 segment of the left vertebral artery. Other Findings: Multilevel degenerative changes in the cervical spine. Head CTA: Diagnostic Quality: Adequate Vertebrobasilar System: The intradural vertebral arteries are patent without significant stenosis. The basilar artery and its major branches are within normal limits. There is no aneurysm. Carotid Arteries: Atherosclerosis: No significant atherosclerosis. Right ICA: No significant stenosis. Left ICA: No significant stenosis. Other Findings: No aneurysm of either internal carotid artery. [place] and Major Peripheral Branches: There is no significant stenosis or occlusion. There is no aneurysm. Other Findings: None. Procedure Note Tanmay Alex MD - 02/16/2025 CLINICAL INDICATION: Transient ischemic attack (TIA) TECHNIQUE: Head CT: Spiral axial CT images of the head were obtained with and withoutcontrast administration. Head CTA: Axial images were obtained through the head during contrastbolus injection and multiplanar MIP images were created. Neck CTA: Axial images were obtained through the neck during boluscontrast injection and multiplanar reformatted and MIP images werecreated. 60 mL of Omnipaque 350 were administered intravenously. TOTAL DLP (Dose-Length Product): 743.50 mGy.cm (accession [id number]),743.50 mGy.cm (accession [id number]), 743.50 mGy.cm (accession [id number]).Please note: The reported value represents the total of one or moreindividual components during the CT acquisition on this date and at thistime, and as such, the same value may appear in more than one CT reportdepending on the interpreting/reporting physicians. COMPARISON: MRI head September 23, 2024 CTA head/neck September 25, 2024 FINDINGS: HEAD CT: Study Quality: Adequate. Enhancing predominantly solid mass with central low-attenuation in theleft posterior insula and adjacent posterior temporal region measuringabout 5 x 3 cm (image 19 series 12). The solid components of the mass areslightly higher in attenuation than willard matter suggestinghypercellularity. This is in the location of signal abnormality seen onprior MRI and is most concerning for primary brain neoplasm. There is masseffect with partial effacement of left lateral ventricle and 2 mmrightward midline shift. The basal cisterns are preserved. No evidence of hydrocephalus or acute intracranial hemorrhage. Soft Tissues: No significant soft tissue swelling is present. Skull: There are no calvarial destructive lesions or fractures. Sinuses and Mastoids: The visualized portions of the paranasal sinuses areclear. The mastoid air cells are clear. Neck CTA: Diagnostic Quality: There is artifact within the neck and superiormediastinum, in part due to dense venous contrast bolus. Aorta and Great Vessel Origins: Conventional branching pattern. Nosignificant stenosis of the origins of the great arteries. Right Cervical Carotid System: Mild calcified atherosclerotic plaque atthe common carotid bifurcation. 0% stenosis at the carotid bulb by NASCETcriteria. Mild undulating irregularity of the internal carotid artery inthe mid cervical segment which may be related to fibromuscular dysplasiaor atherosclerosis. Retropharyngeal course of the proximal cervical ICA. Left Cervical Carotid System: Mild calcified atherosclerotic plaque at thecommon carotid bifurcation. 0% stenosis at the carotid bulb by NASCETcriteria. Mild undulating irregularity of the internal carotid artery inthe distal cervical segment which may be related to fibromusculardysplasia or atherosclerosis. Retropharyngeal course of distal common andproximal internal carotid artery. Vertebral arteries: Multifocal moderate stenosis at the proximal F1tlbogmb of the right vertebral artery. Mild stenosis at the P2 segment ofthe left vertebral artery. Other Findings: Multilevel degenerative changes in the cervical spine. Head CTA: Diagnostic Quality: Adequate Vertebrobasilar System: The intradural vertebral arteries are patentwithout significant stenosis. The basilar artery and its major branchesare within normal limits. There is no aneurysm. Carotid Arteries: Atherosclerosis: No significant atherosclerosis. Right ICA: No significant stenosis. Left ICA: No significant stenosis. Other Findings: No aneurysm of either internal carotid artery. [place] and Major Peripheral Branches: There is no significantstenosis or occlusion. There is no aneurysm. Other Findings: None. IMPRESSION: Head CT: Mass noted in the left insula and posterior temporal region. This is mostconcerning for primary brain neoplasm and can be further evaluated withMRI. Neck CTA: 1.Possible fibromuscular dysplasia in the cervical internal carotidarteries bilaterally. 2.Moderate stenosis of the cervical right vertebral artery. Head CTA: No hemodynamically significant intracranial arterial stenosis or aneurysmis present. CRITICAL RESULT: No. COMMUNICATION: These findings were discussed with Jewel Mora MD at 02/16/2025 5:54 PMby Tanmay Alex MD via [employer]. Drafted by Tanmay Alex MD on 02/16/2025 5:51 PM Final report signed by Tanmay Alex MD on 02/16/2025 6:18 PM Kami Adrian Amin DO IMG CT PROCEDURES Final Resul t * CBC (02/16/2025 3:07 PM EDT) WBC Count 8.72 3.70 - 10.30 10*3/uL LAB HEMATOLOGY METHOD 02/16/2025 3:14 PM EDT [facility] RBC Count 4.57 3.90 - 5.20 10*6/uL LAB HEMATOLOGY METHOD 02/16/2025 3:14 PM EDT [facility] HGB 13.0 11.2 - 15.7 g/dL LAB HEMATOLOGY METHOD 02/16/2025 3:14 PM EDT [facility] HCT 37.9 34.0 - 45.0 % LAB HEMATOLOGY METHOD 02/16/2025 3:14 PM EDT [facility] Platelet Count 363 155 - 369 10*3/uL LAB HEMATOLOGY METHOD 02/16/2025 3:14 PM EDT [facility] MCV 83 79 - 98 fL LAB HEMATOLOGY METHOD 02/16/2025 3:14 PM EDT [facility] MCH 28.4 26.0 - 32.0 pg LAB HEMATOLOGY METHOD 02/16/2025 3:14 PM EDT [facility] MCHC 34.3 30.7 - 35.5 g/dL LAB HEMATOLOGY METHOD 02/16/2025 3:14 PM EDT [facility] RDW 12.6 11.5 - 14.5 % LAB HEMATOLOGY METHOD 02/16/2025 3:14 PM EDT [facility] MPV 8.8 8.8 - 12.5 fL LAB HEMATOLOGY METHOD 02/16/2025 3:14 PM EDT [facility] nRBC 0.0 <=0.0 per 100 WBCs LAB HEMATOLOGY METHOD 02/16/2025 3:14 PM EDT [facility] Blood Venous blood specimen / Unknown Venipuncture / Unknown 02/16/2025 3:07 PM EDT 02/16/2025 3:11 PM EDT us Kami Amin DO LAB BLOOD ORDERABLES Final Re sult [facility] [address] [place] [address] * (ABNORMAL) CMP (02/16/2025 3:07 PM EDT) Glucose, Plasma 119(H) 74 - 99 mg/dL 02/16/2025 3:48 PM EDT [facility] BUN, Plasma 12 8 - 23 mg/dL 02/16/2025 3:48 PM EDT [facility] Creatinine, Plasma 0.57(L) 0.60 - 1.10 mg/dL 02/16/2025 3:48 PM EDT [facility] BUN/Creatinine Ratio 21 02/16/2025 3:48 PM EDT [facility] Sodium, Plasma 132(L) 136 - 145 mmol/L 02/16/2025 3:48 PM EDT [facility] Potassium, Plasma 4.3 3.6 - 4.9 mmol/L 02/16/2025 3:48 PM EDT [facility] Chloride, Plasma 90(L) 97 - 107 mmol/L 02/16/2025 3:48 PM EDT [facility] CO2, Plasma 22 22 - 29 mmol/L 02/16/2025 3:48 PM EDT [facility] Anion Gap 20(H) 6 - 16 mmol/L 02/16/2025 3:48 PM EDT [facility] Total Calcium, Plasma 9.7 8.9 - 10.2 mg/dL 02/16/2025 3:48 PM EDT [facility] Total Protein 7.7 6.3 - 7.9 g/dL 02/16/2025 3:48 PM EDT [facility] Albumin, Plasma 4.6 3.5 - 5.2 g/dL 02/16/2025 3:48 PM EDT [facility] AST, Plasma 22 10 - 35 U/L 02/16/2025 3:48 PM EDT [facility] Comment:Hemolyzed, result ma y be falsely increased. ALT, Plasma 21 10 - 35 U/L 02/16/2025 3:48 PM EDT [facility] Alkaline Phosphatase, Plasma 70 46 - 142 U/L 02/16/2025 3:48 PM EDT [facility] Total Bilirubin, Plasma 0.3 0.2 - 1.1 mg/dL 02/16/2025 3:48 PM EDT [facility] eGFRcr 100.4 mL/min/1.7 3m*2 02/16/2025 3:48 PM EDT [facility] Comment:Reported eGFRcr in m L/min/1.73m2 is based the CKD-EPI 2020 equation that does not use a race coefficient. Blood Venous blood specimen / Unknown Venipuncture / Unknown 02/16/2025 3:07 PM EDT 02/16/2025 3:11 PM EDT Kami Amin DO LAB BLOOD ORDERABLES Final Re sult Performing Organization Address City/[facility]/ZIP Co de Phone Number [facility] [address] [place] [address] * (ABNORMAL) POCT glucose meter (02/16/2025 2:42 PM EDT) [facility] POCT Glucose 145(H) 74 - 99 mg/dL 02/16/2025 2:43 PM EDT [facility] Comment:Accuracy of a glucos e result obtained from a capillary whole blood specimen relies upon adequate, non-compromised capillary blood flow. If the capillary glucose result is not consistent with the patient's clinical signs and symptoms, glucose testing should be repeated with either an arterial or venous sample on the glucometer or sent to the main labortory for testing. Comment 02/16/2025 2:43 PM EDT [facility] [employer] ID Naomi Moy 02/16/2025 2:43 PM EDT [facility] Device ID [id number] 02/16/2025 2:43 PM EDT [facility] Specimen Type POC Capillary 02/16/2025 2:[address] [facility] Blood Capillary blood specimen / Unknown 02/16/2025 2:42 PM EDT 02/16/2025 2:43 PM EDT Generic Provider Poct LAB POINT OF CARE TEST DOCKED DEVICE UNSOLICITED RESULTS Final Result Performing Organization Address City/[facility]/ZIP Co de Phone Number 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 Brain mass Unspecified condition of brain Hyponatremia Hyposmolality and/or hyponatremia Hypertension, unspecified type Focal seizure (CMS/HCC) Other convulsions Facial droop Facial weakness Expressive aphasia Acute right-sided weakness Unspecified hemiplegia affecting unspecified side Sensory deficit, right Brain mass Unspecified condition of brain Obesity, Class III, BMI 40-49.9 (morbid obesity) Expressive aphasia Sensory deficit, right Hypertension Unspecified essential hypertension History of CVA (cerebrovascular accident) Transient ischemic attack (TIA), and cerebral infarction without residual deficits GERD (gastroesophageal reflux disease) Esophageal reflux Depression Depressive disorder, not elsewhere classified Hyponatremia Hyposmolality and/or hyponatremia Electrolyte disturbance Electrolyte and fluid disorders not elsewhere classified Hyperglycemia Other abnormal glucose Facial droop Facial weakness Focal seizure (CMS/HCC) Other convulsions Acute right-sided weakness Unspecified hemiplegia affecting unspecified side documented in this encounter Admitting Diagnoses Diagnosis Brain tumor (benign) (CMS/HCC) Benign neoplasm of brain Brain mass Unspecified condition of brain documented in this encounter Administered Medications Inactive Administered Medications - up to 3 most recent administrations Medication Order MAR Action Action Date Dose Rate Site acetaminophen (Tylenol) tablet 1,000 mg 1,000 mg, Oral, Once as needed, 1 dose, Starting on Sun02/24/25 at 2302, Until Sun02/25/25 at 0136, Routine, Recovery (Phase I only), pain score of >1 out of 10 Given 02/25/2025 1:36 AM EDT 1,000 mg acetaminophen (Tylenol) tablet 1,000 mg 1,000 mg, Oral, Every 6 hours scheduled, First dose on Sun02/25/25 at 0600, Until Discontinued, Routine, Recovery(Phase II-Outpatient)/On Unit(Inpatient) Given 02/27/2025 11:59 AM EDT 1,000 mg Given 02/27/2025 5:58 AM EDT 1,000 mg Given 02/26/2025 11:49 PM EDT 1,000 mg acetaminophen (Tylenol) tablet 650 mg 650 mg, Oral, Every 6 hours PRN, Starting on Sun02/20/25 at 1032, Until Sun02/27/25 at 1624, Routine, mild pain, headaches bacitracin (1g packet) ointment 1 packet 1 packet, Topical, 2 times daily, 4 doses, First dose on Sun02/26/25 at 1115, Last dose on Sun02/27/25 at 2100, Routine Given 02/27/2025 8:39 AM EDT 1 packe t Given 02/26/2025 8:37 PM EDT 1 packet Given 02/26/2025 11:25 AM EDT 1 packet bisacodyl (Dulcolax) suppository 10 mg 10 mg, Rectal, Daily PRN, Starting on Sun02/20/25 at 1045, Until Sun02/27/25 at 1624, Routine, constipation cyclobenzaprine (Flexeril) tablet 5 mg 5 mg, Oral, 3 times daily, First dose on Sun02/25/25 at 0900, Until Discontinued, Routine, Recovery(Phase II-Outpatient)/On Unit(Inpatient) Given 02/27/2025 8:39 AM EDT 5 mg Given 02/26/2025 8:37 PM EDT 5 mg Given 02/26/2025 4:46 PM EDT 5 mg cyclobenzaprine (Flexeril) tablet 5 mg 5 mg, Oral, 3 times daily PRN, Starting on Sun02/25/25 at 1226, Until Sun02/27/25 at 1624, Routine, muscle spasms Given 02/26/2025 1:25 PM EDT 5 mg dexamethasone (Decadron) injection 10 mg 10 mg, Intravenous, Once, 1 dose, On Sun02/16/25 at 1815, STAT Given 02/16/2025 6:37 PM EDT 10 mg dexamethasone (Decadron) injection 4 mg 4 mg, Intravenous, Every 6 hours, First dose on Sun02/18/25 at 0730, Until Discontinued, Routine Given 02/26/2025 6:07 AM EDT 4 mg Given 02/26/2025 12:42 AM EDT 4 mg Given 02/25/2025 5:51 PM EDT 4 mg dexamethasone (Decadron) tablet 2 mg 2 mg, Oral, 2 times daily, 4 doses, First dose on Sun03/05/25 at 0900, Last dose on Sun03/06/25 at 2100, Routine dexamethasone (Decadron) tablet 4 mg 4 mg, Oral, 4 times daily, 7 doses, First dose on Sun02/26/25 at 1200, Last dose on Sun02/27/25 at 2200, Routine Given 02/27/2025 1:55 PM EDT 4 mg Given 02/27/2025 8:39 AM EDT 4 mg Given 02/26/2025 8:37 PM EDT 4 mg dexamethasone (Decadron) tablet 4 mg 4 mg, Oral, 3 times daily, 6 doses, First dose on Sun02/28/25 at 0900, Last dose on Sun03/01/25 at 2100, Routine dexamethasone (Decadron) tablet 4 mg 4 mg, Oral, 2 times daily, 6 doses, First dose on Sun03/02/25 at 0900, Last dose on Sun03/04/25 at 2100, Routine fentaNYL (Sublimaze) injection 25 mcg 25 mcg, Intravenous, Every 5 min PRN, 2 doses, Starting on Sun02/25/25 at 0014, Until Sun02/25/25 at 0200, Routine, Recovery (Phase I only), pain score of 3-4 out of 10 Given 02/25/2025 2:00 AM EDT 25 mcg Given 02/25/2025 1:36 AM EDT 25 mcg gadobutrol (Gadavist) injection 11.5 mL 11.5 mL (0.1 mL/kg 115 kg), Intravenous, Once in imaging, 1 dose, Starting on Sun02/25/25 at 0420, Until Sun02/25/25 at 0432, Routine, Imaging Protocol Orders Given 02/25/2025 4:32 AM EDT 11.5 mL gadobutrol (Gadavist) injection 11.6 mL 11.6 mL (0.1 mL/kg 116 kg), Intravenous, Once in imaging, 1 dose, Starting on Sun02/22/25 at 1731, Until Sun02/22/25 at 1741, Routine, Imaging Protocol Orders Given 02/22/2025 5:41 PM EDT 11.6 mL gadobutrol (Gadavist) injection 11.8 mL 11.8 mL (0.1 mL/kg 118 kg), Intravenous, Once in imaging, 1 dose, Starting on Sun02/16/25 at 2017, Until Sun02/16/25 at 2050, Routine, Imaging Protocol Orders Given 02/16/2025 8:51 PM EDT 11.8 mL gadobutrol (Gadavist) injection 11.8 mL 11.8 mL (0.1 mL/kg 118 kg), Intravenous, Once in imaging, 1 dose, Starting on Sun02/18/25 at 1156, Until Sun02/18/25 at 1227, Routine, Imaging Protocol Orders Given 02/18/2025 12:27 PM EDT 11.8 mL Left Forearm heparin (porcine) injection 7,500 Units 7,500 Units, Subcutaneous, Every 8 hours, First dose on Sun02/18/25 at 0730, Until Discontinued, Routine Given 02/27/2025 8:39 AM EDT 7,500 Units Right Lower Abdomen Given 02/26/2025 11:49 PM EDT 7,500 Units Left Lower Abdomen Given 02/26/2025 4:46 PM EDT 7,500 Units L eft Lower Abdomen hydrALAZINE (Apresoline) injection 10 mg 10 mg, Intravenous, Every 1 hour PRN, Starting on Sun02/16/25 at 2136, Until Sun02/27/25 at 1624, Routine, high blood pressure, SBP > 140 Given 02/22/2025 9:4 1 PM EDT 10 mg Given 02/22/2025 12:05 PM EDT 10 mg Given 02/18/2025 9:18 PM EDT 10 mg hydrALAZINE (Apresoline) injection 10 mg 10 mg, Intravenous, Every 30 min PRN, 2 doses, Starting on Sun02/25/25 at 0014, Until Sun02/25/25 at 0504, Routine, Recovery (Phase I only), high blood pressure, SBP>160 Given 02/25/2025 12:23 AM EDT 10 mg hydrALAZINE (Apresoline) injection 20 mg 20 mg, Intravenous, Every 1 hour PRN, Starting on Sun02/16/25 at 2136, Until Sun02/27/25 at 1624, Routine, high blood pressure, SBP > 140 Given 02/23/2025 5:14 AM EDT 20 mg Given 02/22/2025 8:57 PM EDT 20 mg Given 02/22/2025 4:33 PM EDT 20 mg iohexol (OMNIPaque) 300 MG/ML injection 100 mL 100 mL, Intravenous, Once in imaging, 1 dose, Starting on Sun02/16/25 at 1935, Until Sun02/16/25 at 1937, Routine, Imaging Protocol Orders Given 02/16/2025 7:37 PM EDT 100 mL iohexol (OMNIPaque) 350 MG/ML injection 100 mL 100 mL, Intravenous, Once in imaging, 1 dose, Starting on Sun02/26/25 at 0811, Until Sun02/26/25 at 0811, Routine, Imaging Protocol Orders Given 02/26/2025 8:11 AM EDT 60 mL iohexol (OMNIPaque) 350 MG/ML injection 60 mL 60 mL, Intravenous, Once in imaging, 1 dose, Starting on Sun02/16/25 at 1513, Until Sun02/16/25 at 1531, Routine, Imaging Protocol Orders Given 02/16/2025 3:31 PM EDT 60 mL labetalol (Normodyne,Trandate) injection 10 mg 10 mg, Intravenous, Every 1 hour PRN, Starting on Sun02/16/25 at 2136, Until Sun02/27/25 at 1624, Routine, high blood pressure, SBP > 140 labetalol (Normodyne,Trandate) injection 20 mg 20 mg, Intravenous, Every 1 hour PRN, Starting on Sun02/16/25 at 2136, Until Sun02/27/25 at 1624, Routine, high blood pressure, SBP > 140 levETIRAcetam (Keppra) injection 2,000 mg 2,000 mg, Intravenous, Once, 1 dose, On Sun02/16/25 at 1815, STAT Given 02/16/2025 6:38 PM EDT 2,000 mg levETIRAcetam (Keppra) tablet 1,000 mg 1,000 mg, Oral, 2 times daily, First dose on Sun02/18/25 at 0900, Until Discontinued, Routine Given 02/25/2025 10:18 PM EDT 1,000 mg Given 02/25/2025 8:38 AM EDT 1,000 mg Given 02/24/2025 8:40 AM EDT 1,000 mg levETIRAcetam (Keppra) tablet 1,500 mg 1,500 mg, Oral, 2 times daily, First dose (after last modification) on Sun02/26/25 at 0900, Until Discontinued, Routine Given 02/27/2025 8:39 AM EDT 1,500 mg Given 02/26/2025 8:37 PM EDT 1,500 mg Given 02/26/2025 9:48 AM EDT 1,500 mg lisinopril tablet 20 mg 20 mg, Oral, 2 times daily, First dose on Sun02/19/25 at 0900, Until Discontinued Given 02/27/2025 8:39 AM EDT 20 mg Given 02/26/2025 8:37 PM EDT 20 mg Given 02/26/2025 9:47 AM EDT 20 mg magnesium oxide (Mag-Ox) tablet 400 mg 400 mg, Oral, Once, 1 dose, On Sun02/18/25 at 1115, Routine Given 02/18/2025 1:07 PM EDT 400 mg nebivolol (Bystolic) tablet 5 mg 5 mg, Oral, Daily, First dose on Sun02/19/25 at 0900, Until Discontinued, Routine Given 02/27/2025 8:39 AM EDT 5 mg Given 02/26/2025 9:18 AM EDT 5 mg Given 02/25/2025 8:39 AM EDT 5 mg NIFEdipine XL (Procardia XL) 24 hr tablet 30 mg 30 mg, Oral, Daily, First dose on Sun02/23/25 at 1345, Until Discontinued, Routine Given 02/27/2025 8:39 AM EDT 30 mg Given 02/26/2025 9:47 AM EDT 30 mg Given 02/25/2025 8:39 AM EDT 30 mg ondansetron (Zofran) injection 4 mg 4 mg, Intravenous, Every 6 hours PRN, Starting on Sun02/16/25 at 2136, Until Sun02/27/25 at 1624, Routine, nausea, vomiting ondansetron ODT (Zofran-ODT) disintegrating tablet 4 mg 4 mg, Oral, Every 6 hours PRN, Starting on Sun02/16/25 at 2136, Until Sun02/27/25 at 1624, Routine, nausea, vomiting pantoprazole (Protonix) EC tablet 40 mg 40 mg, Oral, Daily, First dose on Sun02/17/25 at 1615, Until Discontinued, Routine Given 02/27/2025 8:39 AM EDT 40 mg Given 02/26/2025 9:47 AM EDT 40 mg Given 02/25/2025 8:39 AM EDT 40 mg polyethylene glycol (Miralax) packet 17 g 17 g, Oral, 2 times daily, First dose on Sun02/18/25 at 0900, Until Discontinued, Routine Given 02/27/2025 8:39 AM EDT 17 g Given 02/26/2025 8:37 PM EDT 17 g Given 02/25/2025 10:18 PM EDT 17 g Povidone-Iodine 5 % swab solution 1 Application Nasal, Once, 1 dose, On Sun02/24/25 at 1700, Routine Given 02/24/2025 4:21 PM EDT 1 Application senna-docusate (Maggy-Colace) 8.6-50 MG per tablet 1 tablet 1 tablet, Oral, 2 times daily, First dose on Sun02/16/25 at 2140, Until Discontinued, Routine Given 02/16/2025 10:33 PM EDT 1 tablet senna-docusate (Maggy-Colace) 8.6-50 MG per tablet 2 tablet 2 tablet, Oral, 2 times daily, First dose on Sun02/18/25 at 0900, Until Discontinued, Routine Given 02/27/2025 8:39 AM EDT 2 tablets Given 02/26/2025 9:47 AM EDT 2 tablets Given 02/25/2025 10:18 PM EDT 2 tablets sertraline (Zoloft) tablet 50 mg 50 mg, Oral, Daily, First dose on Sun02/17/25 at 1615, Until Discontinued, Routine Given 02/27/2025 8:39 AM EDT 50 mg Given 02/26/2025 9:48 AM EDT 50 mg Given 02/25/2025 8:39 AM EDT 50 mg sodium chloride 0.9 % flush 10 mL 10 mL, Intravenous, Every 12 hours, First dose on Sun02/16/25 at 2140, Until Discontinued, Routine Given 02/26/2025 8:37 PM EDT 10 mL Given 02/25/2025 10:22 PM EDT 10 mL Given 02/23/2025 8:12 PM EDT 10 mL sodium chloride 0.9 % flush 10 mL 10 mL, Intravenous, As needed, Starting on Sun02/16/25 at 2136, Until Sun02/27/25 at 1624, Routine, line care documented in this encounter Active and Recently Administered Medications Times are shown in EDT. Scheduled Medication Order 02/25/2025 02/26/2025 02/27/2025 acetaminophen (Tylenol) tablet 1,000 mg 1,000 mg, Oral, Every 6 hours scheduled, First dose on Sun02/25/25 at 0600, Until Discontinued, Routine, Recovery(Phase II-Outpatient)/On Unit(Inpatient) 0606 (Given - Provider: Gian Taylor, RN)1211 (Given - Provider: Sherin Bynum RN)1751 (Given - Provider: Sherin Bynum RN) 0041 (Given - Provider: Gian Taylor RN)0606 (Given - Provider: Gian Taylor RN)1118 (Given - Provider: Sherin Bynum RN)1704 (Given - Provider: Sherin Bynum RN)2349 (Given - Provider: Kathleen Linn RN) 0558 (Given - Provider: Kathleen Linn RN)1159 (Given - Provider: Sherin Bynum RN) bacitracin (1g packet) ointment 1 packet 1 packet, Topical, 2 times daily, 4 doses, First dose on Sun02/26/25 at 1115, Last dose on Sun02/27/25 at 2100, Routine 1125 (Given - Provider: Sherin Bynum RN)2036 (Given - Provider: Kathleen Linn RN) 0839 (Given - Provider: Sherin Bynum RN) cyclobenzaprine (Flexeril) tablet 5 mg 5 mg, Oral, 3 times daily, First dose on Sun02/25/25 at 0900, Until Discontinued, Routine, Recovery(Phase II-Outpatient)/On Unit(Inpatient) 0839 (Given - Provider: Sherin Bynum RN)1506 (Given - Provider: Sherin Bynum RN)2217 (Given - Provider: Gian Taylor RN) 0947 (Given - Provider: Sherin Bynum RN)1646 (Given - Provider: Sherin Bynum RN)2037 (Given - Provider: Kathleen Linn RN) 0839 (Given - Provider: Sherin Bynum RN)1600 (Canceled Entry - Provider: Automatic Discharge Provider - Comment: Automatically canceled at discontinue of medication order) dexamethasone (Decadron) injection 4 mg (CANCELED) 4 mg, Intravenous, Every 6 hours, First dose on Sun02/18/25 at 0730, Until Discontinued, Routine 0000 (Dose Auto Held - Provider: Automatic Transfer Provider)0335 (NOV Unhold - Provider: Milla Peck, SKY)0606 (Given - Provider: Gian Taylor, SKY)1211 (Given - Provider: Sherin Bynum RN)1751 (Given - Provider: Sherin Bynum RN) 0042 (Given - Provider: Gian Taylor, SKY)0607 (Given - Provider: Gian Taylor, SKY) dexamethasone (Decadron) tablet 2 mg(Linked Group 1) 2 mg, Oral, 2 times daily, 4 doses, First dose on Sharron 03/05/25 at 0900, Last dose on Sun03/06/25 at 2100, Routine dexamethasone (Decadron) tablet 4 mg(Linked Group 1) 4 mg, Oral, 4 times daily, 7 doses, First dose on Sharron 02/26/25 at 1200, Last dose on Sun02/27/25 at 2200, Routine 1118 (Given - Provider: Sherin Bynum RN)1704 (Given - Provider: Sherin Bynum RN)2037 (Given - Provider: Kathleen Linn RN) 0839 (Given - Provider: Sherin Bynum RN)1355 (Given - Provider: Sherin Bynum RN) dexamethasone (Decadron) tablet 4 mg(Linked Group 1) 4 mg, Oral, 3 times daily, 6 doses, First dose on 02/28/25 at 0900, Last dose on 03/01/25 at 2100, Routine dexamethasone (Decadron) tablet 4 mg(Linked Group 1) 4 mg, Oral, 2 times daily, 6 doses, First dose on Sun03/02/25 at 0900, Last dose on Sun03/04/25 at 2100, Routine gadobutrol (Gadavist) injection 11.5 mL (COMPLETED) 11.5 mL (0.1 mL/kg 115 kg), Intravenous, Once in imaging, 1 dose, Starting on Sun02/25/25 at 0420, Until Sun02/25/25 at 0432, Routine, Imaging Protocol Orders 0432 (Given - Provider: Marco Moncada) heparin (porcine) injection 7,500 Units 7,500 Units, Subcutaneous, Every 8 hours, First dose on Sun02/18/25 at 0730, Until Discontinued, Routine 0000 (Dose Auto Held - Provider: Madhuri Mooney MD)0708 (Unheld by provider - Provider: Anaya Felton APRN)0839 (Given - Provider: Sherin Bynum RN)1506 (Given - Provider: Sherin Bynum RN) 0042 (Given - Provider: Gian Taylor, SKY)0948 (Given - Provider: Sherin Bynum RN)1646 (Given - Provider: Sherin Bynum RN)2349 (Given - Provider: Kathleen Linn, SKY) 0839 (Given - Provider: Sherin Bynum RN)1600 (Canceled Entry - Provider: Automatic Discharge Provider - Comment: Automatically canceled at discontinue of medication order) iohexol (OMNIPaque) 350 MG/ML injection 100 mL (COMPLETED) 100 mL, Intravenous, Once in imaging, 1 dose, Starting on Sun02/26/25 at 0811, Until Sun02/26/25 at 0811, Routine, Imaging Protocol Orders 0811 (Given - Provider: Mare Thomas) levETIRAcetam (Keppra) tablet 1,000 mg (CANCELED) 1,000 mg, Oral, 2 times daily, First dose on Sun02/18/25 at 0900, Until Discontinued, Routine 0504 (MAR Unhold - Provider: Automatic Transfer Provider)0838 (Given - Provider: Sherin Bynum RN)2218 (Given - Provider: Gian Taylor, SKY) levETIRAcetam (Keppra) tablet 1,500 mg 1,500 mg, Oral, 2 times daily, First dose (after last modification) on Sun02/26/25 at 0900, Until Discontinued, Routine 0948 (Given - Provider: Sherin Bynum RN)2037 (Given - Provider: Kathleen Linn RN) 0839 (Given - Provider: Sherin Bynum RN) lisinopril tablet 20 mg 20 mg, Oral, 2 times daily, First dose on Sun02/19/25 at 0900, Until Discontinued 0504 ([facility] Unhold - Provider: Automatic Transfer Provider)0838 (Given - Provider: Sherin Bynum RN)221 (Given - Provider: Gian Taylor, SKY) 0947 (Given - Provider: Sherin Bynum RN)2036 (Given - Provider: Kathleen Linn RN) 0839 (Given - Provider: Sherin Bynum RN) nebivolol (Bystolic) tablet 5 mg 5 mg, Oral, Daily, First dose on Sun02/19/25 at 0900, Until Discontinued, Routine 0504 ([facility] Unhold - Provider: Automatic Transfer Provider)0839 (Given - Provider: Sherin Bynum RN) 0918 (Given - Provider: Sherin Bynum RN) 0839 (Given - Provider: Sherin Bynum RN) NIFEdipine XL (Procardia XL) 24 hr tablet 30 mg 30 mg, Oral, Daily, First dose on Sun02/23/25 at 1345, Until Discontinued, Routine 0504 ([facility] Unhold - Provider: Automatic Transfer Provider)0839 (Given - Provider: Sherin Bynum RN) 0947 (Given - Provider: Sherin Bynum RN) 0839 (Given - Provider: Sherin Bynum RN) pantoprazole (Protonix) EC tablet 40 mg 40 mg, Oral, Daily, First dose on Sun02/17/25 at 1615, Until Discontinued, Routine 0504 ([facility] Unhold - Provider: Automatic Transfer Provider)0839 (Given - Provider: Sherin Bynum RN) 0947 (Given - Provider: Sherin Bynum RN) 0839 (Given - Provider: Sherin Bynum RN) polyethylene glycol (Miralax) packet 17 g 17 g, Oral, 2 times daily, First dose on Sun02/18/25 at 0900, Until Discontinued, Routine 0504 ([facility] Unhold - Provider: Automatic Transfer Provider)0921 (Not Given - Provider: Sherin Bynum RN - Reason: Patient/family refused)2217 (Given - Provider: Gian Taylor, SKY) 101 (Not Given - Provider: Sherin Bynum RN - Reason: Hold for condition: must add comment - Comment: try stool softener first)2036 (Given - Provider: Kathleen Linn RN) 0839 (Given - Provider: Sherin Bynum, SKY) senna-docusate (Maggy-Colace) 8.6-50 MG per tablet 2 tablet 2 tablet, Oral, 2 times daily, First dose on Sun02/18/25 at 0900, Until Discontinued, Routine 0504 ([facility] Unhold - Provider: Automatic Transfer Provider)0838 (Given - Provider: Sherin Bynum RN)2218 (Given - Provider: Gian Taylor RN) 0947 (Given - Provider: Sherin Bynum RN)2036 (Not Given - Provider: Kathleen Linn RN - Reason: Patient/family refused) 0839 (Given - Provider: Sherin Bynum RN) sertraline (Zoloft) tablet 50 mg 50 mg, Oral, Daily, First dose on Sun02/17/25 at 1615, Until Discontinued, Routine 0504 ([facility] Unhold - Provider: Automatic Transfer Provider)0839 (Given - Provider: Sherin Bynum RN) 0948 (Given - Provider: Sherin Bynum RN) 0839 (Given - Provider: Sherin Bynum RN) sodium chloride 0.9 % flush 10 mL(Linked Group 2) 10 mL, Intravenous, Every 12 hours, First dose on Sun02/16/25 at 2140, Until Discontinued, Routine 0504 ([facility] Unhold - Provider: Automatic Transfer Provider)0921 (Canceled Entry - Provider: Sherin Bynum RN)2222 (Given - Provider: Gian Taylor, SKY) 1019 (Canceled Entry - Provider: Sherin Bynum RN)2036 (Given - Provider: Kathleen Linn RN) 0910 (Canceled Entry - Provider: Sherin Bynum RN) PRN Medication Order 02/25/2025 02/26/2025 02/27/2025 acetaminophen (Tylenol) tablet 1,000 mg (COMPLETED) 1,000 mg, Oral, Once as needed, 1 dose, Starting on Sun02/24/25 at 2302, Until Sun02/25/25 at 0136, Routine, Recovery (Phase I only), pain score of >1 out of 10 0136 (Given - Provider: Milla Peck RN) acetaminophen (Tylenol) tablet 650 mg 650 mg, Oral, Every 6 hours PRN, Starting on Sun02/20/25 at 1032, Until Sun02/27/25 at 1624, Routine, mild pain, headaches 0504 ([facility] Unhold - Provider: Automatic Transfer Provider) bisacodyl (Dulcolax) suppository 10 mg 10 mg, Rectal, Daily PRN, Starting on Sun02/20/25 at 1045, Until Sun02/27/25 at 1624, Routine, constipation 0504 ([facility] Unhold - Provider: Automatic Transfer Provider) cyclobenzaprine (Flexeril) tablet 5 mg 5 mg, Oral, 3 times daily PRN, Starting on Sun02/25/25 at 1226, Until Sun02/27/25 at 1624, Routine, muscle spasms 1325 (Given - Provider: Sherin Bynum RN) fentaNYL (Sublimaze) injection 25 mcg (COMPLETED) 25 mcg, Intravenous, Every 5 min PRN, 2 doses, Starting on Sun02/25/25 at 0014, Until Sun02/25/25 at 0200, Routine, Recovery (Phase I only), pain score of 3-4 out of 10 0136 (Given - Provider: Milla Peck RN)0200 (Given - Provider: Milla Peck RN) hydrALAZINE (Apresoline) injection 10 mg(Linked Group 3) 10 mg, Intravenous, Every 1 hour PRN, Starting on Sun02/16/25 at 2136, Until Sun02/27/25 at 1624, Routine, high blood pressure, SBP > 140 0504 ([facility] Unhold - Provider: Automatic Transfer Provider) hydrALAZINE (Apresoline) injection 10 mg (CANCELED) 10 mg, Intravenous, Every 30 min PRN, 2 doses, Starting on Sun02/25/25 at 0014, Until Sun02/25/25 at 0504, Routine, Recovery (Phase I only), high blood pressure, SBP>160 0023 (Given - Provider: Milla Peck RN) hydrALAZINE (Apresoline) injection 20 mg(Linked Group 3) 20 mg, Intravenous, Every 1 hour PRN, Starting on Sun02/16/25 at 2136, Until Sun02/27/25 at 1624, Routine, high blood pressure, SBP > 140 0504 ([facility] Unhold - Provider: Automatic Transfer Provider) labetalol (Normodyne,Trandate) injection 10 mg(Linked Group 4) 10 mg, Intravenous, Every 1 hour PRN, Starting on Sun02/16/25 at 2136, Until Sun02/27/25 at 1624, Routine, high blood pressure, SBP > 140 0504 ([facility] Unhold - Provider: Automatic Transfer Provider) labetalol (Normodyne,Trandate) injection 20 mg(Linked Group 4) 20 mg, Intravenous, Every 1 hour PRN, Starting on Sun02/16/25 at 2136, Until Sun02/27/25 at 1624, Routine, high blood pressure, SBP > 140 0504 ([facility] Unhold - Provider: Automatic Transfer Provider) ondansetron (Zofran) injection 4 mg(Linked Group 5) 4 mg, Intravenous, Every 6 hours PRN, Starting on Sun02/16/25 at 2136, Until Sun02/27/25 at 1624, Routine, nausea, vomiting 0504 ([facility] Unhold - Provider: Automatic Transfer Provider) ondansetron ODT (Zofran-ODT) disintegrating tablet 4 mg(Linked Group 5) 4 mg, Oral, Every 6 hours PRN, Starting on Sun02/16/25 at 2136, Until Sun02/27/25 at 1624, Routine, nausea, vomiting 0504 ([facility] Unhold - Provider: Automatic Transfer Provider) sodium chloride 0.9 % flush 10 mL(Linked Group 2) 10 mL, Intravenous, As needed, Starting on Sun02/16/25 at 2136, Until Sun02/27/25 at 1624, Routine, line care 0504 ([facility] Unhold - Provider: Automatic Transfer Provider) Linked Groups Order Group 1: dexamethasone (Decadron) tablet 4 mgJump to med 4 mg, Oral, 4 times daily, 7 doses, First dose on Sharron 02/26/25 at 1200, Last dose on Sun02/27/25 at 2200, Routine Followed by dexamethasone (Decadron) tablet 4 mgJump to med 4 mg, Oral, 3 times daily, 6 doses, First dose on 02/28/25 at 0900, Last dose on Sun03/01/25 at 2100, Routine Followed by dexamethasone (Decadron) tablet 4 mgJump to med 4 mg, Oral, 2 times daily, 6 doses, First dose on Sun03/02/25 at 0900, Last dose on Sun03/04/25 at 2100, Routine Followed by dexamethasone (Decadron) tablet 2 mgJump to med 2 mg, Oral, 2 times daily, 4 doses, First dose on Sun03/05/25 at 0900, Last dose on Sun03/06/25 at 2100, Routine Group 2: Insert peripheral IV (CANCELED) Once, On Sun02/16/25 at 2136, For 1 occurrence And Saline lock IV (CANCELED) Once, On Sun02/16/25 at 213, For 1 occurrence And sodium chloride 0.9 % flush 10 mLJump to med 10 mL, Intravenous, Every 12 hours, First dose on Sun02/16/25 at 2140, Until Discontinued, Routine And sodium chloride 0.9 % flush 10 mLJump to med 10 mL, Intravenous, As needed, Starting on Sun02/16/25 at 2136, Until Sun02/27/25 at 1624, Routine, line care Group 3: hydrALAZINE (Apresoline) injection 10 mgJump to med 10 mg, Intravenous, Every 1 hour PRN, Starting on Sun02/16/25 at 2136, Until Sun02/27/25 at 1624, Routine, high blood pressure, SBP > 140 Or hydrALAZINE (Apresoline) injection 20 mgJump to med 20 mg, Intravenous, Every 1 hour PRN, Starting on Sun02/16/25 at 2136, Until Sun02/27/25 at 1624, Routine, high blood pressure, SBP > 140 Group 4: labetalol (Normodyne,Trandate) injection 10 mgJump to med 10 mg, Intravenous, Every 1 hour PRN, Starting on Sun02/16/25 at 2136, Until Sun02/27/25 at 1624, Routine, high blood pressure, SBP > 140 Or labetalol (Normodyne,Trandate) injection 20 mgJump to med 20 mg, Intravenous, Every 1 hour PRN, Starting on Sun02/16/25 at 2136, Until Sun02/27/25 at 1624, Routine, high blood pressure, SBP > 140 Group 5: ondansetron ODT (Zofran-ODT) disintegrating tablet 4 mgJump to med 4 mg, Oral, Every 6 hours PRN, Starting on Sun02/16/25 at 2136, Until Sun02/27/25 at 1624, Routine, nausea, vomiting Or ondansetron (Zofran) injection 4 mgJump to med 4 mg, Intravenous, Every 6 hours PRN, Starting on Sun02/16/25 at 2136, Until Sun02/27/25 at 1624, Routine, nausea, vomiting documented in this encounter Additional Health Concerns Assessment Noted Time PHQ-9 Depression Total Score: 6 10/08/19 2:13 PM EST A fall risk assessment has been complete d for the patient 02/16/2025 9:53 AM EDT A Body Mass Index follow-up plan has been documented for the patient 02/27/2025 10:32 AM EDT documented as of this encounter Care Teams 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
--- OUTSIDE RECORDS SUMMARY | 2025-02-24 17:34 | XMS_ITS | Encounter Summary ---
Author Organization [facility] Address [address] [place] [address] Care Team Providers Care Sales Store Checker Name Role Phone Caroline Shultz APRN Primary Care Provider [phone]- [phone] Reason for Visit * Auth/Cert (Routine) Specialty Diagnoses / Procedures Referred By Contac t Referred To Contact Diagnoses Brain tumor (benign) (CMS/HCC) Brain mass Ned Menendez MD [address] [facility] [address] [place] [address] Phone: tel: fax: [facility] Inpatient [address] [place] [address] Phone: tel: Referral ID Status Reason Start Date Expiration Date Visits Re quested Visits Authorized [id number] 1 1 Encounter Details Date Type Department Care Team (Late st Contact Info) Description 02/24/2025 5:34 PM EDT Anesthesia Event [facility] O[facility] ROOM [address] [place] [id number] Alessandro Medina DO [address] [place] [id number] Paulette Mata PA [address] [facility] [address] [place] [address] Anesthesia Record Procedure Summary Procedure Name Responsible Anesthesiologist Anesthesia Start Time Anesthesia Stop Time LEFT CRANIOTOMY, FOR INTRACRANIAL NEOPLASM EXCISION Alessandro Medina DO 02/24/25 1734 02/25/25 0011 Events Date Time Event Comment 02/24/2025 1645 1734 In Room 1734 An Start The patient was reevaluated immediately before sedation and remains eligible for anesthesia plan. 1734 An Start Data 1736 An Induction The patient was reevaluated immediately before moderate or deep sedation use and before anesthesia induction. 1738 An Intubation 1750 Anesthesia Ready 1831 Proc Start 2356 Proc Fin 02/25/2025 0001 An Extubation 0001 an stop data 0003 Out of Room 0011 Handoff to Receiving I compl eted my handoff to the receiving clinician during which we: 1. Identified the patient 2. Identified the responsible provider 3. Reviewed the pertinent medical history 4. Discussed the surgical course 5. Reviewed intra-op anesthesia management and issues during anesthesia 6. Set expectations for post-procedure period 7. Allowed opportunity for questions and acknowledgement of understanding. 0011 An Stop Meds Name Total remifentanil 2 MG 3.61 mg fentaNYL (Sublimaze) injection 50 mcg/mL 100 mcg propofol 10 mg/mL 4,692 mg dexamethasone (Decadron) injection 4 mg/ mL 8 mg ceFAZolin 1 g 4 g phenylephrine (Irineo-Synephrine) prefilled syringe 1 mg/10 mL 1,100 mcg rocuronium (ZeMuron) injection 10 mg/mL 255 mg lidocaine PF (Xylocaine-MPF) 2% 40 mg propofol (Diprivan) injection 10 mg/mL 2 20 mg ePHEDrine injection prefilled syringe 5 mg/mL 25 mg ondansetron (Zofran) injection 2 mg/mL 4 mg sugammadex (Bridion) injection 100 mg/mL 200 mg mannitol infusion 20% 57.5 g phenylephrine in 0.9% NaCl infusion 100 mcg/mL 2.53 mg sodium chloride 0.9 % infusion 1,000 mL sodium chloride 0.9 % infusion 0 mL * Agents Name O2 N2O Air Sevoflurane Isoflurane Desflurane Inspired Desflurane Inspired Isoflurane Inspired Sevoflurane N2O Inspired N2O * Blood No blood administrations on file. Lines, Drains, and Airways Type Details Placement Removal Wound 02/24/25; 1903; N; Y es; Surgical; Open Surg; Head; Left 02/24/251903 by Vivi Blank Peripheral IV Placement Date: 06/04; Catheter Size: 20 G; Orientation: Anterior, Left; Location: Wrist; Site Prep: Chlorhexidine ; Local Anesth: None; Technique: Anatomical landmarks; Insertion Attempts: 1; Patient Tolerance: Tolerated well; Removal Date: 02/25/25 02/16/25 0000 by Gumaro Galvan Jr. 02/25/25 0000 by Gian Taylor RN ETT Placement Date: 02/08 04/03; Placement Time: 1738 (created via procedure documentation); Mask Ventilation: 2; Technique: Direct laryngoscopy; Type: ETT - single; Single Lumen Tube Size: 7 mm; Cuffed: Yes; Laryngoscope: Riana; Blade Size: 3; Location: Oral; Grade View: Grade I; Insertion Attempts: 1; Placement Verification: Auscultation, Capnometry; Airway Comments: Atraumatic. No change to dentition. ; Placed by: Resident ; Removal Date: 02/25/25; Removal Time: 202402/24/25 173 by Steven Almeida MD 02/25/25 0001 by Jorge Aguillon MD Urethral Catheter Placement Date: 02/08 04/03; Placement Time: 174; Inserted by: Mu Blank RN; Type: Non-latex, Temperature probe, Single lumen; Size: 16 Fr.; Balloon Size: 10 mL; Urine Returned: Yes; Removal Date: 02/25/25; Removal Time: 040; Removal Reason: Per order 02/24/25 1749 by Vivi Blank L 02/25/25 0403 by Milla Peck RN Peripheral IV Placement Date: 02/08 04/03; Placement Time: 180 (created via procedure documentation); Catheter Size: 20 G; Orientation: Right; Location: Antecubital; Technique: Anatomical landmarks; Inserted by: Jose Luis Weems MD; Insertion Attempts: 1; Removal Date: 02/28/25; Removal Time: 1424 02/24/25 180 by Steven Almeida MD 02/28/25 142 by Discharge Provider, Automatic Arterial Line Placement Date: 02/08 04/03; Placement Time: 180 (created via procedure documentation); Size: 20 G; Orientation: Left; Location: Radial; Inserted by: Resident; Securement: Taped; Patient Tolerance: Tolerated well; Removal Date: 02/25/25; Removal Time: 402; Removal Reason: Per order 02/24/25 180 by Steven Almeida MD 02/25/25402 by Milla Peck RN documented in this encounter Social History Tobacco Use Types Packs/Day Years [...] any time in the past 12 m [facility], were you homeless or living in a mcc (including now)? No 09/23/2024 Humiliation, Afraid, Rape, [...] money to buy more. Never true 02/20/20 Within the past 12 months, t he [...] any time in the past 12 m [facility], were you homeless or living in a mcc (including now)? No 02/19/2025 Utilities Answer Date Recorded In the past 12 months has th e [employer], gas, oil, or water company threatened to shut off services in your home? No 02/19/2025 Comments No Sex and Gender Information Value Date Recorded Sex Assigned at Female 09/22/2024 11:47 AM EST Legal Sex Female 8:04 PM EDT Gender Identity Not on file Sexual Orientation Not on file documented as of this encounter Functional Status * Calculated C-SSRS [...] James RN 6. Suicidal Behavior (Lifetime) No 5 4:16 PM EDT Lisa James RN documented as of this encounter Miscellaneous Notes * Anesthesia Postprocedure Evaluation - Jorge Aguillon MD - 02/25/2025 12:11 AM EDT Patient: Herminia Murrell Anesthesia Type: general Vitals Value Taken Time BP 153/79 02/25/25 00:05 Temp 36.5C 02/25/25 00:11 Pulse 91 02/25/25 00:10 Resp 13 02/25/25 00:10 SpO2 96 % 02/25/25 00:10 Vitals shown include unfiled device data. Anesthesia Post Evaluation Patient location during evaluation: PACU Patient participation: complete - patient participated Level of consciousness: awake Pain management: adequate (pain score 0-3) Airway patency: natural airway Cardiovascular status: acceptable and hemodynamically stable Respiratory status: acceptable and blow-by oxygen Hydration status: acceptable Nausea/Vomiting: No No notable events documented. Cosigned by Alessandro Medina DO at 02/25/2025 1:45 AM EDT Associated attestation - Alessandro Medina DO - 02/25/2025 1:45 AM EDT I agree with the findings and care plan documented in the postprocedure evaluation note. * Anesthesia Procedure Notes - Steven Almeida MD - 02/24/2025 6:09 PM EDT Associated Order(s): Arterial Line Arterial Line: An arterial line was placed. Procedure performed using ultrasound guidance in the OR for the following indication(s): continuousblood pressure monitoring and blood sampling needed. A 20 gauge (size), 1 and 3/4 inch (length), Arrow (type) catheter was placed into the Left radial artery and secured by tape. Seldinger technique used Events: patient tolerated procedure well with no complications. Staffing Performed: Resident Anesthesiologist: Jose Luis Weems MD Resident: Steven Almeida MD Cosigned by Jose Luis Weems MD at 02/24/2025 7:06 PM EDT Associated attestation - Jose Luis Weems MD - 02/24/2025 7:06 PM EDT I was present during all critical and rosado portions of the procedure(s) and immediately available tofurnish services the entire duration. See resident note for details. * Anesthesia Procedure Notes - Steven Almeida MD - 02/24/2025 6:09 PM EDT Associated Order(s): Peripheral IV Peripheral IV Inserted by: Jose Luis Weems MD Placement Needle size: 20 G Location: antecubital Site prep: alcohol Technique: anatomical landmarks Attempts: 1 Cosigned by Jose Luis Weems MD at 02/24/2025 7:06 PM EDT Associated attestation - Jose Luis Weems MD - 02/24/2025 7:06 PM EDT I was present during all critical and rosado portions of the procedure(s) and immediately available tofurnish services the entire duration. See resident note for details. * Anesthesia Procedure Notes - Steven Almeida MD - 02/24/2025 6:08 PM EDT Associated Order(s): Airway Airway Date/Time: 02/24/2025 5:38 PM Reason: elective Airway not difficult General Information and Staff Patient location during procedure: OR Anesthesiologist: Jose Luis Weems MD Resident: Steven Almeida MD Performed: Resident Patient Condition Indications for airway management: anesthesia Patient position: sniffing Final Airway Details Final airway type: endotracheal airway Successful airway: ETT Cuffed: yes Successful intubation technique: direct laryngoscopy Adjuncts used in placement: intubating stylet Endotracheal tube insertion site: oral Blade: Riana Blade size: #3 ETT size (mm): 7.0 Cormack-Lehane Classification: grade I - full view of glottis Placement verified by: chest auscultation and capnometry Measured from: teeth ETT to teeth (cm): 21 Additional Comments Atraumatic. No change to dentition. Cosigned by Jose Luis Weems MD at 02/24/2025 7:06 PM EDT Associated attestation - Jose Luis Weems MD - 02/24/2025 7:06 PM EDT I was present during all critical and rosado portions of the procedure(s) and immediately available [facility] services the entire duration. See resident note for details. * Anesthesia Preprocedure Evaluation - Steven Almeida MD - 02/24/2025 9:40 AM EDT Patient: Herminia Murrell Procedure Information Date/Time: 02/23/25 1600 Procedure: LEFT CRANIOTOMY, FOR INTRACRANIAL NEOPLASM EXCISION Location: [facility] OR / [facility] OR Surgeons: Ned Menendez MD HPI Herminia Murrell is a 64 y.o. female with PMHx of HTN, depression, GERD, CVA (per pt suspected but symptoms were attributed to brain mass) who presented with word finding difficulty and newly discoveredleft insular brain mass. was consulted for hyponatremia. Sodium improved with fluid restrictions, most recent Na 131. Now for left craniotomy for intracranial neoplasm excision NPO STATUS: since MN Activity Level/METS >4 Relevant Problems Cardio (+) Hypertension GI (+) GERD (gastroesophageal reflux disease) Nervous (+) Brain tumor (benign) (CMS/HCC) (+) Expressive aphasia Digestive (+) Obesity, Class III, BMI 40-49.9 (morbid obesity) Other (+) History of CVA (cerebrovascular accident) SOCIAL HX Tobacco Use History[1] Social History Substance and Sexual Activity Alcohol Use Never Comment: No alcohol at all Social History Substance and Sexual Activity Drug Use Never SURGICAL HX Surgical History[2] ALLERGIES Allergies[3] MEDICATIONS Scheduled Current Scheduled Medications[4] LABS Labs in last 18 hours CBC WBC 11.24 (H) Hb 12.8 Plt 400 (H) Hct 38.5 ANC 8.58 (H) INR 1.0, PTT 24 (L), Anti-Xa ?? BMP Na 131 (L) Cl 98 BUN 26 (H) Glu 126 (H) K 4.7 Co2 23 Cr 0.63 Ca 9.4 iCa ?? Mg ??, Phos ?? Lactate ?? LFT AST 23 AlkPhos 52 T Prot 6.8 ALK 25 Bili 0.3 Alb ?? D.Bili ?? EKG, ECHO, Cath, Imaging, PFTs EKG Encounter Date: 02/16/25 ECG Adult Result Value EKG DIAGNOSIS CLASS Borderline Normal Ventricular Rate 66 Atrial Rate 66 WA Interval 194 QRSD Interval 88 QT Interval 404 QTC Interval 423 P [place] 51 R [place] 23 T Wave [place] 26 Diagnosis Sinus rhythm with occasional premature ventricular complexes Diagnosis Diagnosis Diagnosis Confirmed by Tasneem Ludwig ([id number]) on 02/20/2025 11:51:00 AM *Note: Due to a large number of results and/or encounters for the requested time period, some results have not been displayed. A complete set of results can be found in Results Review. ECHO Echo, Adult Transthoracic Complete Result Date: 09/25/2024 Left Ventricle: Based on the linear dimension and/or 2D volumes, the left ventricle is normal in size. There is normal left ventricular myocardial thickness and mass. The left ventricular systolic function is normal. The LVEF is visually estimated at 55 - 60%. The diastolic function is normal. The left ventricular wall motion is normal. Right Ventricle: The right ventricle is normal in size. The right ventricular systolic function is normal. Left Atrium: The left atrial size is moderately increased with an indexed volume of 42-48 mL/m2. There is no atrial septal defect. All cardiac valves were reasonably well interrogated with 2D imaging and/or Doppler assessment and no significant valve regurgitation or stenosis is seen. There is no recent study available for direct hisz-sd-bjcv comparison. CT chest/abd/pelvis Impression 1. No acute findings in the chest, abdomen and pelvis. 2. No evidence of metastatic disease or underlying neoplasm in the chest, abdomen and pelvis. PFTs Pulmonary Functions Testing Results: No results found for: LYZ1VZU , AYV5NCUH , CZG5GIM , FVCPRED Body mass index is 40.92 kg/m??. Vitals: 02/24/25 0819 BP: (!) 147/79 Pulse: 62 Resp: 16 Temp: 36.7 ??C (98.1 ??F) SpO2: 94% ROS Anesthesia: Date of last anesthetic: >5 yr No issues with prior GA history of previous anesthesia. Does not have a history of anesthetic complications, obstructive sleep apnea and PONV. Cardiovascular: Does not have atrial fibrillation, CHF, hyperlipidemia, murmur, pacemaker or past AR. hypertension:Does not have chest pain. Respiratory: no asthma: no COPD: HEENT: Does not have loose teeth. Neurological: no seizures: a cerebrovascular accident (stroke was suspected but per pt symptoms were due to tumor). Neuro additional comments: Depression brain mass Musculoskeletal: Does not have cervical spine limited mobility. Gastrointestinal: GERD: well controlled.Does not have cirrhosis. obese. Genitourinary: Does not have chronic renal disease. Hematological/Lymphatic: History of no DVT. History of no pulmonary embolism. no history of chemotherapy no history of radiation Endocrine/Metabolic: does not have diabetes mellitus. Does not have thyroid disorder. electrolyte abnormalities. Physical Exam Airway Mallampati: I Mouth opening: normal TM distance: >3 FB Cardiovascular Rhythm: regular Rate: normal Dental Pulmonary Breath sounds clear to auscultation Neurological Oriented: normal to time, normal to place and normal to person Skin Skin: warm and dry Musculoskeletal Extremities Anesthesia Plan ASA 3 Plan was reviewed with: resident and attending Anesthesia technique(s) discussed with the patient/family: general Anesthesia plan agreed upon was: general Anesthetic plan and risks discussed with patient. Additional Equipment Requests [1] Social History Tobacco Use Smoking Status Never Smokeless Tobacco Never [2] No past surgical history on file. [3] Allergies Allergen Reactions Codeine Nausea [4] dexamethasone, 4 mg, Intravenous, q6h [Held by provider] heparin (porcine), 7,500 Units, Subcutaneous, q8h levETIRAcetam, 1,000 mg, Oral, BID lisinopril, 20 mg, Oral, BID nebivolol, 5 mg, Oral, Daily NIFEdipine XL, 30 mg, Oral, Daily pantoprazole, 40 mg, Oral, Daily polyethylene glycol, 17 g, Oral, BID senna-docusate, 2 tablet, Oral, BID sertraline, 50 mg, Oral, Daily Insert peripheral IV, , , Once AND Saline lock IV, , , Once AND sodium chloride, 10 mL, Intravenous, q12h AND sodium chloride, 10 mL, Intravenous, PRN Cosigned by Jose Luis Weems MD at 02/24/2025 4:53 PM EDT Associated attestation - Jose Luis Weems MD - 02/24/2025 4:53 PM EDT I agree with the findings and care plan documented in the preprocedure evaluation note. documented in this encounter Plan of Treatment Upcoming Encounters Date Type Department Care Team (Late st Contact Info) Description 03/23/2025 1:45 PM EDT Clinical Support [facility] [address] [facility] [place] [address] 03/23/2025 2:00 PM EDT Office Visit [facility] [address] [place] [address] Chente Sebastian MD [address] [facility] [address] [place] [address] 07/06/2025 9:30 AM EDT Office Visit [facility] [address], [address] [place] [address] Sanchez Zaldivar MD [address] [facility] [address] [place] [address] documented as of this encounter Procedures Procedure Name Priority Date/Time Associated Diagnosis Comments PB ANESTHESIA NON-TIMED PROCEDURE PLACEHOLDER Routine 02/24/2025 6:09 PM EDT ANESTHESIA PERIPHERAL IV PLACEMENT Routine 02/24/2025 6:09 PM EDT PB ANESTHESIA PLACEHOLDER Routine 02/24/2025 5:38 PM EDT WA AN ELECTIVE ENDOTRACHEAL AIRWAY Routine 02/24/2025 5:38 PM EDT documented in this encounter Results * PB ANESTHESIA NON-TIMED PROCEDURE PLACEHOLDER (02/24/2025 6:09 PM EDT) Jose Luis Lovell MD - 02/24/2025 6:09 PM EDT Jose Luis Weems MD 02/24/2025 7:06 PM Arterial Line: An arterial line was placed. Procedure performed using ultrasound guidance in the OR for the following indication(s): continuous blood pressure monitoring and blood sampling needed. A 20 gauge (size), 1 and 3/4 inch (length), Arrow (type) catheter was placed into the Left radial artery and secured by tape. Seldinger technique used Events: patient tolerated procedure well with no complications. Staffing Performed: Resident Anesthesiologist: Jose Luis Weems MD Resident: Steven Almeida MD us Jose Luis Weems MD ANESTHESIA ORDERABLES F inal Result * Peripheral IV (02/24/2025 6:09 PM EDT) Jose Luis Lovell MD - 02/24/2025 6:09 PM EDT Jose Luis Weems MD 02/24/2025 7:06 PM Peripheral IV Inserted by: Jose Luis Weems MD Placement Needle size: 20 G Location: antecubital Site prep: alcohol Technique: anatomical landmarks Attempts: 1 us Jose Luis Weems MD ANESTHESIA ORDERABLES F inal Result * WA AN ELECTIVE ENDOTRACHEAL AIRWAY, PB ANESTHESIA PLACEHOLDER (02/24/2025 5:38 PM EDT) Jose Luis Lovell MD - 02/24/2025 5:38 PM EDT Jose Luis Weems MD 02/24/2025 7:06 PM Airway Date/Time: 02/24/2025 5:38 PM Reason: elective Airway not difficult General Information and Staff Patient location during procedure: OR Anesthesiologist: Jose Luis Weems MD Resident: Steven Almeida MD Performed: Resident Patient Condition Indications for airway management: anesthesia Patient position: sniffing Final Airway Details Final airway type: endotracheal airway Successful airway: ETT Cuffed: yes Successful intubation technique: direct laryngoscopy Adjuncts used in placement: intubating stylet Endotracheal tube insertion site: oral Blade: Riana Blade size: #3 ETT size (mm): 7.0 Cormack-Lehane Classification: grade I - full view of glottis Placement verified by: chest auscultation and capnometry Measured from: teeth ETT to teeth (cm): 21 Additional Comments Atraumatic. No change to dentition. Jose Luis Weems MD ANESTHESIA ORDERABLES F inal Result documented in this encounter Visit Diagnoses Not on filedocumented in this encounter Administered Medications Inactive Administered Medications - up to 3 most recent administrations Medication Order MAR Action Action Date Dose Rate Site ceFAZolin (Ancef) injection Intravenous, As needed, Starting on Sun02/24/25 at 1812, Until Sun02/25/25 at 001, Routine, Anesthesia Intraprocedure Given 02/24/2025 10:12 PM EDT 2 g Given 02/24/2025 6:12 PM EDT 2 g dexamethasone (Decadron) injection Intravenous, As needed, Starting on Sun02/24/25 at 1808, Until Sun02/25/25 at 0011, Routine, Anesthesia Intraprocedure Given 02/24/2025 6:08 PM EDT 8 mg ePHEDrine Sulfate (Akovaz) injection Intravenous, As needed, Starting on Sun02/24/25 at 1837, Until Sun02/25/25 at 001, Routine, Anesthesia Intraprocedure Given 02/24/2025 11:36 PM EDT 10 mg Given 02/24/2025 11:14 PM EDT 5 mg Given 02/24/2025 6:37 PM EDT 10 mg fentaNYL (Sublimaze) injection Intravenous, As needed, Starting on Sun02/24/25 at 1736, Until Sun02/25/25 at 0011, Routine, Anesthesia Intraprocedure Given 02/24/2025 5:36 PM EDT 100 mcg lidocaine PF (Xylocaine) 2 % injection Intravenous, As needed, Starting on Sun02/24/25 at 1736, Until Sun02/25/25 at 0011, Routine, Anesthesia Intraprocedure Given 02/24/2025 5:36 PM EDT 40 mg mannitol 20 % infusion Intravenous, As needed, Starting on Sun02/24/25 at 1811, Until Sun02/25/25 at 0011, Administer over 15 Minutes, Routine Given 02/24/2025 6:11 PM EDT 57.5 g ondansetron (Zofran) injection Intravenous, As needed, Starting on Sun02/24/25 at 2337, Until Sun02/25/25 at 001, Routine, Anesthesia Intraprocedure Given 02/24/2025 11:37 PM EDT 4 mg phenylephrine 25 mg in NS 250 mL (0.1 mg/mL) infusion (compounding pharmacy premix) Intravenous, Continuous PRN, Starting on Sun02/24/25 at 1834, Until Sun02/25/25 at 0011, Routine, Anesthesia Intraprocedure Restarted 02/24/2025 11:27 PM EDT 0.1 mcg/kg/min 6.9 mL/hr Restarted 02/24/2025 9:40 PM EDT 0.1 mcg/kg/min 6.9 mL/hr Rate/Dose Change 02/24/2025 7:15 PM EDT 0.1 mcg/kg/min 6.9 mL/hr phenylephrine in NS (Irineo-Synephrine) 100 mcg/mL prefilled syringe Intravenous, As needed, Starting on Sun02/24/25 at 1801, Until Sun02/25/25 at 001, Routine, Anesthesia Intraprocedure Given 02/24/2025 11:32 PM EDT 100 mcg Given 02/24/2025 11:28 PM EDT 100 mcg Given 02/24/2025 11:22 PM EDT 100 mcg propofol (Diprivan) infusion 10 mg/mL Intravenous, Continuous PRN, Starting on Sun02/24/25 at 1754, Until Sun02/25/25 at 0011, Routine Rate/Dose Change 02/24/2025 10:52 PM EDT 100 mcg/kg/min 60 mL/hr Rate/Dose Change 02/24/2025 10:16 PM EDT 125 mcg/kg/min 75 mL/hr Rate/Dose Change 02/24/2025 8:53 PM EDT 140 mcg/kg/min 84 mL/hr propofol (Diprivan) injection Intravenous, As needed, Starting on Sun02/24/25 at 1736, Until Sun02/25/25 at 0011, Routine, Anesthesia Intraprocedure Given 02/24/2025 6:45 PM EDT 20 mg Given 02/24/2025 5:55 PM EDT 50 mg Given 02/24/2025 5:36 PM EDT 150 mg remifentanil (Ultiva) injection Intravenous, Continuous PRN, Starting on Sun02/24/25 at 1754, Until Sun02/25/25 at 001, Routine, Anesthesia Intraprocedure Rate/Dose Change 02/24/2025 11:23 PM EDT 0.05 mcg/kg/min 0.3 mL/hr Given 02/24/2025 6:45 PM EDT 50 mcg Rate/Dose Change 02/24/2025 6:44 PM EDT 0.1 mcg/kg/min 0.6 mL/hr rocuronium (ZeMuron) injection Intravenous, As needed, Starting on Sun02/24/25 at 1736, Until Sun02/25/25 at 001, Routine, Anesthesia Intraprocedure Given 02/24/2025 11:10 PM EDT 5 mg Given 02/24/2025 10:50 PM EDT 20 mg Given 02/24/2025 10:14 PM EDT 20 mg sodium chloride 0.9 % infusion Intravenous, Continuous PRN, Starting on Sun02/24/25 at 1754, Until Sun02/25/25 at 0011, Routine Rate/Dose Change 02/24/2025 11:48 PM EDT 200 mL/hr Rate/Dose Change 02/24/2025 7:15 PM EDT 50 mL/h r New Bag 02/24/2025 5:45 PM EDT 100 mL/hr sodium chloride 0.9 % infusion Intravenous, Continuous PRN, Starting on Sun02/24/25 at 1735, Until Sun02/25/25 at 0011, Routine New Bag 02/24/2025 9:03 PM EDT New Bag 02/24/2025 5:35 PM EDT sugammadex (Bridion) 100 MG/ML injection Intravenous, As needed, Starting on Sun02/24/25 at 2356, Until Sun02/25/25 at 0011, Routine, Anesthesia Intraprocedure Given 02/24/2025 11:56 PM EDT 200 mg documented in this encounter Additional Health Concerns Assessment Noted Time PHQ-9 Depression Total Score: 6 10/08/19 2:13 PM EST A fall risk assessment has been complete d for the patient 02/16/2025 9:53 AM EDT A Body Mass Index follow-up plan has been documented for the patient 02/27/2025 10:32 AM EDT documented as of this encounter Care Teams Sales Store Checker Relationship Specialty Start Date End Date Caroline Shultz APRN [address] [place] [address] PCP - General 09/22/24 documented as of this encounter
--- OUTSIDE RECORDS SUMMARY | 2025-02-24 17:55 | XMS_ITS | Encounter Summary ---
Author Organization Healthcare Address [address] [place] [address] Care Team Providers Care Beam Press Operator Name Role Phone Caroline Shultz APRN Primary Care Provider [phone] Reason for Visit * Reason Comments difficulty speaking * Auth/Cert (Routine) Specialty Diagnoses / Procedures Referred By Contac t Referred To Contact Diagnoses Brain tumor (benign) (CMS/HCC) Brain mass Ned Menendez MD [address] [address] Phone: tel: fax: [facility] Inpatient [address] [place] [address] Phone: tel: Referral ID Status Reason Start Date Expiration Date Visits Re quested Visits Authorized [id number] 1 1 Encounter Details Date Type Department Care Team (Late st Contact Info) Description 02/24/2025 5:55 PM EDT - 02/24/2025 10:45 PM EDT Surgery [facility] OPERATING ROOM [address] [place] [address] Sanchez Zaldivar MD [address] [address] LEFT CRANIOTOMY, FOR INTRACRANIAL NEOPLASM EXCISION Surgery Details Date/Time Status Location OR Service Patient Class Case Class Case Type Trauma Case? 02/24/2025 5:55 PM Posted [facility] 05 Neurosurgery Inpatient E-Electi ve Panel 1 Procedure LRB Anes Op Region Wound Class Comments LEFT CRANIOTOMY, FOR INTRACR ANIAL NEOPLASM EXCISION N/A General Surgeon Surgeon Role Service Panel Sanchez Zaldivar MD Primary Neurosurgery 1 John Bhat MD Resident - Assisting 1 documented in this encounter Social History Tobacco [...] any time in the past [address] [facility], were you homeless or living in a jail (including now)? No 09/23/2024 Humiliation, Afraid, Rape, [...] any time in the past [address] [facility], were you homeless or living in a jail (including now)? No 02/19/2025 Utilities Answer Date [...] Sign Reading Time Taken Comments Blood Pressure 160/73 02/24/2025 4:23 PM EDT Pulse 71 02/24/2025 4:23 PM EDT Temperature 36.6 C (97.9 F) 02/24/2025 4:23 PM EDT Respiratory Rate 20 02/24/2025 4:23 PM EDT Oxygen Saturation 96% 02/24/2025 4:23 PM EDT Inhaled Oxygen Concentration - - Weight 115 kg (253 lb 8.5 oz) 02/24/2025 6:00 AM EDT Height 167.6 cm (5' 6 ) 02/16/2025 2:45 PM EDT Body Mass Index 40.42 02/16/2025 2:45 PM EDT documented in this encounter Functional Status * Calculated C-SSRS Risk Score (Lifetime/Recent) Answer Date of Assessment Author No Risk Indicated 02/24/2025 4:16 PM EDT Lisa James, SYK * Question Answer Date of Assessment Author 1. Wish to be (Past 1 Month) No 025 4:16 PM EDT Lisa James, RN 2. Non-Specific Active Suici tristian Thoughts (Past 1 Month) No 02/24/2025 4:16 PM EDT Jennifer James RN 6. Suicidal Behavior (Lifetime) No 5 4:16 PM EDT Lisa James, RN documented as of this encounter Medications [...] 2 days. 18 tablet 02/27/2025 fish oil (Medanales-3) 500 MG capsule Take 2,400 mg by [...] discharge patient today. Foreign Marshall DO PGY-2 [facility] - Internal Medicine Epic Chat preferred; Pager [phone] Cosigned by Ede Ruiz MD at 03/07/2025 [...] ordered and to be delviered bedside from [facility]. Pt d/c to home address. No other CM needs identified. Guy Virk LCSW * Samuel Rodriguez - Sherin Bynum RN - 02/27/2025 9:46 AM EDT Images from the original note were not included. 88686 Depression: Tips to Help Yourself As your [...] when you can. Go to a movie, ballgame, hoahaoism service, or social event. Talk openly with [...] problems. Last Reviewed Date: 2023 00:00:00 ?? [id number] The [employer]. All rights reserved. This information is not intended as a substitute for professional medical care. Always follow your healthcare professional's instructions. * Samuel Rodriguez - Sherin Bynum RN - 02/27/2025 9:45 AM EDT Images from the original note were not included. [id number] What is a Focal Seizure (Partial Seizure)? [...] lives. Last Reviewed Date: 2023 00:00:00 ?? [id number] The [employer]. All rights reserved. This information is not intended as a substitute for professional medical care. Always follow your healthcare professional's instructions. * Pedrodiana Jennifer - Sherin Bynum RN - 02/27/2025 9:45 AM EDT Images from the original note were not included. 95656 What Is Aphasia? Aphasia is a loss [...] must. Last Reviewed Date: 2024 00:00:00 ?? [id number] The [employer]. All rights reserved. This information is not intended as a substitute for professional medical care. Always follow your healthcare professional's instructions. * Samuel Rodriguez - Sherin Bynum RN - 02/27/2025 9:45 AM EDT Images from the original note were not included. 85674 Aphasia: Improving Communication Aphasia is a condition [...] don?t. Last Reviewed Date: 2024 00:00:00 ?? [id number] The [employer]. All rights reserved. This information is not intended as a substitute for professional medical care. Always follow your healthcare professional's instructions. * Samuel FaithCINTHYA - Sherin Bynum RN - 02/27/2025 9:45 AM EDT Images from the original note were not included. [id number] Brain Tumor Your body makes new cells [...] holidays. Last Reviewed Date: 2024 00:00:00 ?? [id number] The [employer]. All rights reserved. This information is not [...] Zaldivar MD PCP name and Address: Caroline Shultz, GRANULATOR TENDER [address] [facility] / [place] [address] Referring provider name and address: No referring provider defined for this encounter. Chief Concern, Brief History of Present Illness, and Hospital Course Wali Murrell is a 64 y.o. female with history of HTN, T2DM, depression, GERD, and reported focal seizure who presented to the [facility] emergency department on 02/16/2025 with expressive [...] 81 mg daily when appropriate, follow-up with [facility] in 8-12 weeks. Patient provided [...] oil 500 MG capsule Commonly known as: Medanales-3 Take 2,400 mg by mouth daily. levETIRAcetam [...] Your Medications These medications were sent to [facility] - [place], [place] - [address] [facility] [address] acetaminophen 500 MG tablet cyclobenzaprine 5 MG [...] Center 03/10/2025 10:00 AM Sheba Fisher APRN [facility] 03/16/2025 9:30 AM Sanchez Zaldivar MD REHOBOTH [...] would like to follow here at the [facility]. - final treatment planning pending [...] would like to follow here at the [facility]. - final treatment planning pending [...] would like to follow here at the [facility]. - final treatment planning pending [...] can be planned and delivered. We communicated toNeurosurgerdelmis that she may be seen as an [...] would like to follow here at the [facility]. - final treatment planning pending final [...] Normotensive - Sodium Goals: Normonatremia - recommend PT/OT/CANOE INSPECTOR FINAL evaluation - No indication to obtain echo with most recently obtained on 09/2024 - follow-up w/[facility] in 8-12 weeks following discharge [...] Normotensive - Sodium Goals: Normonatremia - recommend PT/OT/CANOE INSPECTOR FINAL evaluation - No indication to obtain echo with most recently obtained on 09/2024 - follow-up w/[facility] in 8-12 weeks following discharge [...] Normotensive - Sodium Goals: Normonatremia - recommend PT/OT/CANOE INSPECTOR FINAL evaluation - No indication to obtain echo with most recently obtained on 09/2024 - follow-up w/[facility] in 8-12 weeks following discharge [...] tablet 1,000 mg 1,000 mg Oral q6h [facility] John Bhat MD 1,000 mg at02/26/25 1118 [...] 4 mg Oral 4x daily Michael Jain A 4 mg at 02/26/25 1118 Followed by [START ON 02/28/2025] dexamethasone (Decadron) tablet 4 mg 4 mg Oral TID Michael Jain A Followed by [START ON 03/02/2025] dexamethasone [...] BID Anaya Felton APRN 1,500 mg at 948 lisinopril tablet 20 mg 20 mg Oral BID Anaya Felton GRANULATOR TENDER 20 mg at 02/26/25 0947 nebivolol (Bystolic) tablet 5 mg 5 mg Oral Daily Ranjana Yu MD 5 mg at 02/26/25 0918 NIFEdipine XL (Procardia XL) 24 hr tablet 30 mg 30 mg Oral Daily Anaya Felton GRANULATOR TENDER 30 mg at 02/26/25 0947 ondansetron ODT (Zofran-ODT) disintegrating tablet 4 mg 4 mg Oral q6h PRN Katharine Oreilly MD Or ondansetron (Zofran) injection 4 mg 4 mg Intravenous q6h PRN Katharine Oreilly MD pantoprazole (Protonix) EC tablet 40 mg 40 mg Oral Daily Michael Jain A 40 mg at 02/26/25 0947 polyethylene glycol (Miralax) packet 17 g 17 g Oral BID Anaya Felton APRN 17 g at 02/25/25 2218 senna-docusate (Maggy-Colace) 8.6-50 MG per tablet 2 tablet 2 tablet Oral BID Anaya Felton APRN 2 tablet at 02/26/25 0947 sertraline (Zoloft) tablet 50 mg 50 mg Oral Daily Michael Jain A 50 mg at 02/26/25 0948 sodium [...] 02/26/25 1134 Output by Drain (mL) 02/24/25 07 - 02/24/25 1859 02/24/25 190 - 02/25/25 0659 02/25/25 0700 - 02/25/25 [...] would like to follow here at the [facility]. - final treatment planning pending [...] Normotensive - Sodium Goals: Normonatremia - recommend PT/OT/CANOE INSPECTOR FINAL evaluation - No indication to obtain echo [...] any questions or concerns. Anaya Felton, CARIDAD, GRANULATOR TENDER Advanced Practice Provider Department of Neurosurgery [facility] * Progress Notes - Jules Wagner, [...] the emergency department on 02/16/2025 with episodic exp ressive aphasia for 3 days was admitted to [...] file Social Connections: Unknown (06/18/2023) Received from [facility] Family and Community Support Help [...] or ankle clonus Coordination: no ataxia with [id number] and [id number] testing Gait/Station: Not observed Cortical: No Extinction [...] Normotensive - Sodium Goals: Normonatremia - recommend PT/OT/CANOE INSPECTOR FINAL evaluation - No indication to obtain echo with most recently obtained on 09/2024 - follow-up w/[facility] in 8-12 weeks following discharge #Chronic Asymptomatic Hyponatremia (POA) -Na ranging 127-134; today 129 -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 Review of Systems Review of Systems All other systems reviewed and are negative. --Oncology History-- [Associated problem not found] Oncology History No history exists. Past Medical, Surgical, Family, and Social History: Reviewed by me; any relevant updates made in [facility]. Social History Lives in [facility] Allergies Reviewed by me; any relevant updates made in [facility]. Medications Current Medications[1] Physical Exam Vitals: 02/25/25 [...] Labs, Imaging, and Microbiology Reviewed personally in [facility]. Notable as discussed in Assessment and Plan. Pathology: Pending or [1] Current Facility-Administered Medications: acetaminophen (Tylenol) tablet 1,000 mg, 1,000 mg, Oral, q6h [facility], John Bhat MD, 1,000 mg at 02/25/25 1211 acetaminophen (Tylenol) tablet 650 mg, 650 mg, Oral, q6h PRN, NipAnaya aguilar M, GRANULATOR TENDER bisacodyl (Dulcolax) suppository 10 mg, 10 mg, Rectal, Daily PRN, NipAnaya aguilar, GRANULATOR TENDER cyclobenzaprine (Flexeril) tablet 5 mg, 5 mg, Oral, TID, John Bhat MD, 5 mg at 02/25/25 1506 cyclobenzaprine (Flexeril) tablet 5 mg, 5 mg, Oral, TID PRN, Nipper, Anaya M, GRANULATOR TENDER dexamethasone (Decadron) injection 4 mg, 4 mg, Intravenous, q6h, [facility], GRANULATOR TENDER, 4 mg at 02/25/25 1211 heparin (porcine) injection 7,500 Units, 7,500 Units, Subcutaneous, q8h, [facility], GRANULATOR TENDER, 7,500 Units at 02/25/25 1506 hydrALAZINE (Apresoline) [...] tablet 1,000 mg, 1,000 mg, Oral, BID, [facility], GRANULATOR TENDER, 1,000 mg at 02/25/25 0838 lisinopril tablet 20 mg, 20 mg, Oral, BID, [facility], GRANULATOR TENDER, 20 mg at 02/25/25 0838 nebivolol (Bystolic) tablet 5 mg, 5 mg, Oral, Daily, Ranjana Yu MD, 5 mg at 02/25/25 0839 NIFEdipine XL (Procardia XL) 24 hr tablet 30 mg, 30 mg, Oral, Daily, [facility], GRANULATOR TENDER, 30 mg at 02/25/25 0839 ondansetron ODT (Zofran-ODT) disintegrating tablet 4 mg, 4 mg, Oral, q6h PRN OR ondansetron (Zofran) injection 4 mg, 4 mg, Intravenous, q6h PRN, Katharine Oreilly MD pantoprazole (Protonix) EC tablet 40 mg, 40 mg, Oral, Daily, Michael Jain, 40 mg at 839 polyethylene glycol (Miralax) packet 17 g, 17 g, Oral, BID, Nipper, Anaya M, GRANULATOR TENDER, 17 g at 900 senna-docusate (Maggy-Colace) 8.6-50 MG per tablet 2 tablet, 2 tablet, Oral, BID, Nipper, Anaya M, GRANULATOR TENDER, 2 tablet at 02/25/25 0838 sertraline (Zoloft) tablet 50 mg, 50 mg, Oral, Daily, Rommelman Michael A, 50 mg at 02/25/25 0839 Insert peripheral IV, , , Once AND Saline lock IV, , , Once AND sodium chloride 0.9 % flush10 mL, 10 mL, Intravenous, q12h, 10 mL at 02/23/252011 AND sodium chloride 0.9 % flush 10 mL, 10 mL, Intravenous, PRN, Katharine Oreilly MD Cosigned by Danish Renee MD at [...] q6h [facility] John Bhat MD 1,000 mg at02/25/25 1211 acetaminophen (Tylenol) tablet 650 mg 650 mg Oral q6h PRN Anaya Felton APRN bisacodyl (Dulcolax) suppository 10 mg 10 mg Rectal Daily PRN NipAnaya aguilar, GRANULATOR TENDER cyclobenzaprine (Flexeril) tablet 5 mg 5 mg Oral TID John Bhat MD 5 mg at 02/25/25 0839 cyclobenzaprine (Flexeril) tablet 5 mg 5 mg Oral TID PRN NipAnaya aguilar, JEFFREY dexamethasone (Decadron) injection 4 mg 4 mg Intravenous q6h NipAnaya aguilar, GRANULATOR TENDER 4 mg at 211 heparin (porcine) injection 7,500 Units 7,500 Units Subcutaneous q8h Nipjeff, Anaya Curtis, GRANULATOR TENDER 7,500 Units at 02/25/25 0839 hydrALAZINE (Apresoline) [...] tablet 1,000 mg 1,000 mg Oral BID NipAnaya aguilar APRN 1,000 mg at 838 lisinopril tablet 20 mg 20 mg Oral BID Anaya Felton APRN 20 mg at 02/25/25 0838 nebivolol (Bystolic) [...] Daily Rommeltito Michael A 50 mg at 02/25/25 0839 [...] any questions or concerns. Anaya Felton DNP, GRANULATOR TENDER Advanced Practice Provider Department of Neurosurgery [facility] * Progress Notes - Jose Elias Marshall, - 02/25/2025 11:17 AM EDT Images from [...] assess for sodium trend Risk: - Foreign Marshall, PGY-2 [facility] - Internal Medicine Epic Chat preferred; Pager [phone] Cosigned by Ede Ruiz MD at 03/04/2025 [...] Goal: Patient-Specific Goal (Individualized) 02/25/2025 1045 by hSerin Bynum RN Outcome: Ongoing, Progressing 02/25/2025 1045 [...] Bynum, RN Outcome: Ongoing, Not Progressing Goal: Readiness for Transition of Care 02/25/2025 1045 by Sherin Bynum, RN Outcome: Ongoing, Progressing 02/25/2025 1045 by Sherin Bynum, RN Outcome: Ongoing, Progressing 02/25/2025 1036 by Sherin Bynum, RN Outcome: Ongoing, Not Progressing Problem: Functional Deficit Goal: Improved Balance and Postural Control 02/25/2025 1045 by Sherin Bynum, RN Outcome: [...] Range of Motion 02/25/2025 1045 by Sherin yBnum, RN Outcome: Ongoing, Progressing 02/25/2025 1045 by Sherin Bynum RN Outcome: Ongoing, Progressing 02/25/2025 1036 by Sherin Bynum RN Outcome: Ongoing, Not Progressing Goal: Compensation for Sensory Deficit 02/25/2025 1045 by Sherin Bynum RN Outcome: Ongoing, Progressing 02/25/2025 1045 by Sherin Bynum RN Outcome: Ongoing, Progressing 02/25/2025 1036 by Sherin Bynum RN Outcome: Ongoing, Not Progressing Problem: Communication [...] 02/25/2025 10:08 AM EDT Pastoral Care Note Division Service Manager consulted with care team, and provided emotional and spiritual support the patient and trghters, they asked bioinformatics developer to pray for them. Referral From: Nurse Pastoral Care Provided For: Patient, Child(stefania) Patient Profile: Consult Reasons: Emotional support, Prayer, Non-urgent referral Spiritual Assessment: Support Systems/ Spiritual Resources: Prayer, Nettie Spiritual Needs: Emotional support, Prayer, Spiritual support Interventions: Interventions Provided: Emotional support, Spiritual support, Prayer, Consulted with care team, Introduced Patient/Family to Division Service Manager Services, Affirm acceptance and gratitude Pastoral Care Outcomes: Patient Outcomes: Expresses acceptance, Is knowledgeable about Contact Center Director Services, Appreciative ofChaplain Support, Gratitude Cosigned by Niki Crow at 02/25/2025 11:27 AM EDT Associated attestation - Niki Crow - 02/25/2025 11:27 AM EDT This is to attest bioinformatics developer internal audit senior manager chart note has been reviewed and okayed. 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 (Active) Site Assessment Clean;Skin intact 02/25/259 CAUTI: Collection Container Standard drainage bag 02/25/259 CAUTI: Securement Method Securing device (Describe) 02/25/259 CAUTI: Specimen Collection Port Covered with Alcohol Cap Yes 02/25/259 CAUTI: Urinary Catheter Necessity Yes, meets criteria 02/25/259 CAUTI: Urinary Catheter Necessity Reasons Q1-2 hourly urine output of critically ill patient 02/25/259 Output (mL) 75 mL 02/25/25 001 Specimen: Brain mass sent for pathology Findings: [...] procedure, the patient was taken out of [place] head pins, awakened, extubated, and moved to [...] 650 mg Oral q6h PRN Anaya Felton, GRANULATOR TENDER bisacodyl (Dulcolax) suppository 10 mg 10 mg Rectal Daily PRN NipAnaya aguilar, GRANULATOR TENDER dexamethasone (Decadron) injection 4 mg 4 mg Intravenous q6h Nipper, Anaya Curtis, GRANULATOR TENDER 4 mg at [Held by provider] heparin (porcine) injection 7,500 Units 7,500 Units Subcutaneous q8h Nipjeff, Anaya Curtis, GRANULATOR TENDER 7,500 Units at 02/23/25 1611 hydrALAZINE (Apresoline) [...] tablet 1,000 mg 1,000 mg Oral BID NipAnaya aguilar, GRANULATOR TENDER 1,000 mg at 840 lisinopril tablet 20 mg 20 mg Oral BID NipAnaya aguilar, GRANULATOR TENDER 20 mg at 02/24/25 0840 nebivolol (Bystolic) tablet 5 mg 5 mg Oral Daily Ranjana Yu MD 5 mg at 02/24/25 0840 NIFEdipine XL (Procardia XL) 24 hr tablet 30 mg 30 mg Oral Daily Anaya Felton APRN 30 mg at 02/24/25 0840 ondansetron ODT (Zofran-ODT) disintegrating tablet 4 mg 4 mg Oral q6h PRN Katharine Oreilly MD Or ondansetron (Zofran) injection 4 mg 4 mg Intravenous q6h PRN Katharine Oreilly MD pantoprazole (Protonix) EC tablet 40 mg 40 mg Oral Daily Susy Michael A 40 mg at 02/24/25 0840 polyethylene glycol (Miralax) packet 17 g 17 g Oral BID Anaya Felton APRN 17 g at 02/22/25 0900 senna-docusate (Maggy-Colace) 8.6-50 MG per tablet 2 tablet 2 tablet Oral BID Anaya Felton APRN 2 tablet at 02/24/25 0840 sertraline (Zoloft) tablet 50 mg 50 mg Oral Daily Susy Michael A 50 mg at 02/24/25 0840 [...] 640 ml Output by Drain (mL) 02/22/25 0700 - 02/22/25 1859 02/22/25 1900 - 02/23/25 0659 02/23/25 0700 - 02/23/25 1859 02/23/25 1900 - 02/24/25 0659 02/24/25 0700 - 02/24/25 1107 Patient has no LDAs [...] any questions or concerns. Anaya Felton DNP, GRANULATOR TENDER Advanced Practice Provider Department of Neurosurgery [facility] * Progress Notes - Guy Virk - 02/23/2025 9:49 AM EDT SW met with NS Team to discuss pt POC. Per team, pt to OR tomorrow. No CM needs identified at this time, SW remains available to follow/assist. Guy Virk LCSW * Consults - Ember Winchester RD - 02/23/2025 9:44 AM EDT Adult Nutrition Evaluation Note Wali Murrell 64 y.o. female CSN: [id number] Room/Bed 125/125A Nutrition evaluation type: assessment Reason for evaluation: [facility] Hospital course: 64 yo F [...] (97.4 ??F) Oxygen Therapy: None (Room air) [place] Coma Scale Score: 15 Devonte Scale Score: [...] Weight Evaluation: Extreme Obesity (BMI > 40) [place] Body Weight (kg): 59.1 Percent [place] Body Weight: 199 Adjusted Body Weight (kg): 73.75 Estimated Needs: Metabolic Cart Study Results: Current Nutrition Intake: Diet Supplements: None Diet Order: Adult Diet Diet Texture: Regular Adult Fluid Restriction / 24 hr: 1000 ml fluid Percent Meals Eaten (%): 75-100% Diet Experience and Nutrition History: Diet Education Provided: Will monitor Pertinent home medications: Roman Catholic needs: Nutrition Focused Physical Exam: Physical exam [...] mg, Oral, q6h PRN, Nipper, Anaya M, GRANULATOR TENDER bisacodyl (Dulcolax) suppository 10 mg, 10 mg, Rectal, Daily PRN, Nipper, Anaya M, GRANULATOR TENDER dexamethasone (Decadron) injection 4 mg, 4 mg, Intravenous, q6h, Nipper, Anaya M, GRANULATOR TENDER, 4 mg at 02/23/25 0514 heparin (porcine) injection 7,500 Units, 7,500 Units, Subcutaneous, q8h, Nipper, Anaya M, GRANULATOR TENDER, 7,500 Units at 02/23/25 0032 hydrALAZINE (Apresoline) [...] tablet 1,000 mg, 1,000 mg, Oral, BID, [facility], Anaya M, GRANULATOR TENDER, 1,000 mg at 02/23/25 0833 lisinopril tablet 20 mg, 20 mg, Oral, BID, [facility], Anaya M, GRANULATOR TENDER, 20 mg at 02/23/25 0833 nebivolol (Bystolic) tablet 5 mg, 5 mg, Oral, Daily, Ranjana Yu MD, 5 mg at 02/23/25 0833 ondansetron ODT (Zofran-ODT) disintegrating tablet 4 mg, 4 mg, Oral, q6h PRN OR ondansetron (Zofran) injection 4 mg, 4 mg, Intravenous, q6h PRN, Katharine Oreilly MD pantoprazole (Protonix) EC tablet 40 mg, 40 mg, Oral, Daily, Rommelman, Michael A, 40 mg at 833 polyethylene glycol (Miralax) packet 17 g, 17 g, Oral, BID, Anaya Felton, GRANULATOR TENDER, 17 g at 900 senna-docusate (Maggy-Colace) 8.6-50 MG per tablet 2 tablet, 2 tablet, Oral, BID, Anaya Felton, GRANULATOR TENDER, 2 tablet at 02/21/252054 sertraline (Zoloft) tablet 50 mg, 50 mg, Oral, Daily, Rommelman, Michael A, 50 mg at 02/23/25 0833 Insert [...] & fluid restriction: 1000 mL; NPO at RI. Code status: Full Code Thank you for [...] * Assessment & Plan Note - Anaya Fleton APRN - 02/23/2025 7:12 AM EDT Associated [...] q6h Anaya Felton APRN 4 mg at glucose (Glutose) 40 [...] BID Anaya Felton APRN 20 mg at 02/22/252055 nebivolol (Bystolic) tablet 5 mg 5 mg Oral Daily Ranjana Yu MD 5 mg at 02/22/25 09 ondansetron ODT (Zofran-ODT) disintegrating tablet 4 mg 4 mg Oral q6h PRN Katharine Oreilly MD Or ondansetron (Zofran) injection 4 mg 4 mg Intravenous q6h PRN Katharine Oreilly MD pantoprazole (Protonix) EC tablet 40 mg 40 mg Oral Daily Hakan Jainus A 40 mg at 02/22/25 09 polyethylene glycol (Miralax) packet 17 g 17 g Oral BID Anaya Felton APRN 17 g at 02/22/25 09 senna-docusate (Maggy-Colace) 8.6-50 MG per tablet 2 tablet 2 tablet Oral BID Anaya Felton APRN 2 tablet at 02/21/252054 sertraline (Zoloft) tablet 50 mg 50 mg Oral Daily Susy Michael A 50 mg at 02/22/25 09 [...] -670 ml Output by Drain (mL) 02/21/25 07 - 02/21/25 1859 02/21/25 190 - 02/22/25 0659 02/22/25 0700 - 02/22/25 1859 02/22/25 1900 - 02/23/25 [...] any questions or concerns. Anaya Felton DNP, GRANULATOR TENDER Advanced Practice Provider Department of Neurosurgery [facility] * Significant Event - Dov Mccurdy [...] q6h Anaya Felton APRN 4 mg at glucose (Glutose) 40 [...] 10 mg 10 mg Intravenous q1h PRN Ktaharine Oreilly MD 10 mg at 02/18/25 2118 [...] BID Anaya Felton APRN 1,000 mg at 900 lisinopril tablet 20 mg 20 mg Oral BID Anaya Felton APRN 20 mg at 02/22/25 0901 nebivolol (Bystolic) [...] Susy Michael A 40 mg at 02/22/25 09 polyethylene glycol (Miralax) packet 17 g 17 g Oral BID Anaya Felton APRN 17 g at 02/22/25 0900 senna-docusate (Maggy-Colace) 8.6-50 MG per tablet 2 tablet 2 tablet Oral BID Anaya Felton APRN 2 tablet at 02/21/252054 sertraline (Zoloft) tablet 50 mg 50 mg Oral Daily Hakan Jainus A 50 mg at 02/22/25 0901 sodium chloride 0.9 % flush 10 mL 10 mL Intravenous q12h Katharine rOeilly MD 10 mL at 02/22/25 0903 And [...] 1000 ml Output by Drain (mL) 02/20/25 07 - 02/20/25 1859 02/20/25 190 - 02/21/25 0659 02/21/25 07 - 02/21/25 1859 02/21/25 190 - 02/22/25 0659 02/22/25 07 - 02/22/25 1145 Patient has no LDAs [...] able - L craniotomy for tumor resection Vicente, 02/23 - npo at midnight History of [...] MD Resident Physician, PGY-2 Department of Neurosurgery [facility] Cosigned by Israel Guillen MD at 02/23/2025 4:39 PM EDT Associated attestation - Israel Guillen MD - 02/23/2025 4:39 PM EDT Signature only. * Progress Notes - Cuca Campoverde MD - 02/22/2025 11:12 AM EDT GME Consult Progress Note Hospital Day: 02/22/25 Subjective: ON given 1x hydralazine otherwise [...] EDT GME Consult Progress Note Hospital Day: 5 02/21/25 Subjective: NAEO. Doing well today/in good [...] and motor function - fiducial MRI Sunday C/A/P CT scans negative for metastatic work-up [...] mg 4 mg Intravenous q6h Anaya Felton GRANULATOR TENDER 4 mg at 147 glucose (Glutose) 40 [...] PRN Katharine Oreilly MD 10 mg at 02/18/258 Or hydrALAZINE (Apresoline) injection 20 mg 20 [...] BID Anaya Felton APRN 20 mg at 02/20/252108 nebivolol (Bystolic) tablet [...] Daily Susy Michael A 50 mg at 02/20/25815 sodium chloride [...] Outputs Intake/Output Summary (Last 24 hours) at 02/21/2025 0758 Last data filed at 02/20/2025 2100 Gross per 24 hour Intake 1151 ml Output 525 ml Net 626 ml Output by Drain (mL) 02/19/25 07 - 02/19/25 1859 02/19/25 1900 - 02/20/25 [...] able - plan for operative intervention 02/23 History of CVA (cerebrovascular accident) - [...] MD Resident Physician, PGY-2 Department of Neurosurgery [facility] Cosigned by Israel Guillen MD at [...] by Jayna Goldstein RN Outcome: Ongoing, Progressing 02/20/2025 1207 by Jayna Goldstein RN Outcome: Ongoing, Progressing Goal: Optimal Comfort and Wellbeing 02/20/2025 1207 by Jayna Goldstein RN Outcome: Ongoing, Progressing 02/20/2025 1207 by Jayna Goldstein RN Outcome: Ongoing, Progressing Goal: Readiness for Transition of Care 02/20/2025 1207 by Jayna Goldstein RN Outcome: Ongoing, Progressing 02/20/2025 1207 by Jayna Goldstein RN Outcome: Ongoing, Progressing [...] mg 4 mg Intravenous q6h NipAnaya aguilar GRANULATOR TENDER 4 mg at glucose (Glutose) 40 % [...] mg 20 mg Oral BID Anaya Felton GRANULATOR TENDER 20 mg at 02/20/25815 nebivolol (Bystolic) tablet 5 mg 5 mg Oral Daily Rnajana Yu MD 5 mg at 02/20/25817 ondansetron ODT (Zofran-ODT) disintegrating tablet 4 mg 4 mg Oral q6h PRN Katharine Oreilly MD Or ondansetron (Zofran) injection 4 mg 4 mg Intravenous q6h PRN Katharine Oreilly MD pantoprazole (Protonix) EC tablet 40 mg 40 mg Oral Daily Susy Michael A 40 mg at 02/20/25815 polyethylene glycol (Miralax) packet 17 g 17 g Oral BID Anaya Felton GRANULATOR TENDER 17 g at 02/19/252039 senna-docusate (Maggy-Colace) 8.6-50 MG per tablet 2 tablet 2 tablet Oral BID Anaya Felton GRANULATOR TENDER 2 tablet at 02/19/252039 sertraline (Zoloft) tablet 50 mg 50 mg Oral Daily Susy Michael A 50 mg at 02/20/2516 sodium chloride 0.9 % flush 10 mL [...] any questions or concerns. Anaya Felton DNP, GRANULATOR TENDER Advanced Practice Provider Department of Neurosurgery [facility] * Progress Notes - Saige Alvarez [...] overnight with one doseof 20 mg hydralazine 6/12 evening. Subjective Ms. Murrell was evaluated this [...] Center 03/02/2025 9:00 AM Bridget Lion PA [facility] Electronically Signed by: Saige Alvarez - 02/20/2025 - 7:46 AM Cosigned by Anaya Hdez MD at 02/20/2025 6:10 PM EDT Associated attestation - Anaya Hdez MD - 02/20/2025 6:10 PM EDT I saw and evaluated the patient with the medical/TECHNICIAN SEMICONDUCTOR DEVELOPMENT/PA student. I discussed the case with the medical/TECHNICIAN SEMICONDUCTOR DEVELOPMENT/PA student and agree with the findings and [...] Case Management Adult Initial Progress Note Wali Godfreyaac 64 y.o. female CSN: [id number] Admission: 02/16/2025 3:08 PM Primary Problem: Brain tumor (benign) (CMS/HCC) Due Diligence Coordinator reviewed chart and spoke with patient and daughter at bedside to complete this InitialCase Management Assessment. PCP: Caroline Shultz APRN Emergency Contact: No emergency contact information on file. Insurance: Primary Visit Coverage Payer Plan Sponsor Code Group Number Group Name MEDICARE MEDICARE PART A ONLY Primary Visit Coverage Subscriber Subscriber ID Subscriber Name Subscriber N Subscriber Address [id number] WALI MURRELL [id number] [place] [address] Secondary Visit Coverage Payer Plan Sponsor Code Group Number Group Name [facility] [id number] Secondary Visit Coverage Subscriber Subscriber ID Subscriber Name Subscriber SSN Subscriber Address [id number] WALI MURRELL [id number] [place] [address] Patient information: Primary Caregiver: Self Support System: Immediate family Daily Living Activities: Functional Status: Independent Living Arrangements: Alone Type of Residence: Private residence [address] [place], [place] [id number] Current DME: Equipment Currently Used at Home: [...] Dialysis Services: None Living Will/Advance Directive/Power of Multi Spindle Operator /Guardian: Have you reviewed your Advance Directive and is it valid for this stay?: Yes Advance Directive: Patient would not like information Information Provided on Healthcare Directives: Yes Pre-existing DNR/DNI Order: No Patient Requests Assistance: Yes, referral made to watch caser Additional Comments: Provided introduction and information on [...] 10:53 AM EDTAssociated Order(s): Inpatient consult to Michelle Cadet Inpatient consult to Michelle Cadet Consult performed [...] mg 4 mg Intravenous q6h Anaya Felton GRANULATOR TENDER 4 mg at heparin (porcine) injection 7,500 Units 7,500 Units Subcutaneous q8h Anaya Felton GRANULATOR TENDER 7,500 Units at 02/19/25 0813 hydrALAZINE (Apresoline) [...] Daily Rommeltito Michael A 40 mg at 02/19/25811 polyethylene glycol (Miralax) packet 17 g 17 g Oral BID Anaya Felton APRN senna-docusate (Maggy-Colace) 8.6-50 MG per tablet 2 tablet 2 tablet Oral BID Anaya Felton APRN 2 tablet at 02/19/25811 sertraline (Zoloft) tablet 50 mg 50 mg Oral Daily Hakan Jainus A 50 mg at 02/19/25811 sodium chloride [...] q6h Anaya Felton APRN 4 mg at glucose (Glutose) 40 % oral gel 15-30 grams of glucose 15-30 grams of glucose Sublingual q15 min PRN Anaya Felton APRN Or dextrose 50 % solution 12.5-25 g 12.5-25 g Intravenous q15 min [facility]N [facility] Or glucagon (human recombinant) injection 1 mg 1 mg Intramuscular q15 min PRN Anaya Felton APRN heparin (porcine) injection 7,500 Units 7,500 Units Subcutaneous q8h [facility] Curtis 7,500 Units at 02/19/25 08 hydrALAZINE (Apresoline) injection 10 mg 10 mg Intravenous q1h PRN Katharine Oreilly MD 10 mg at 02/18/258 Or hydrALAZINE (Apresoline) injection 20 mg 20 mg Intravenous q1h PRN Katharine Oreilly MD 20 mg at 02/18/25 2220 insulin lispro (Admelog) 100 units/mL injection - Correction - Standard Dose 0-5 Units SubcutaneousTID with meals Anaya Feltno APRN insulin lispro (Admelog) injection - Correction - Nighttime Dose 0-3 Units Subcutaneous Twice at night Anaya Felton APRN labetalol (Normodyne,Trandate) injection 10 mg 10 mg Intravenous q1h PRKatharine Dowell MD Or labetalol (Normodyne,Trandate) injection 20 mg 20 mg Intravenous q1h PRKatharine Dowell MD levETIRAcetam (Keppra) tablet 1,000 mg 1,000 mg Oral BID Anaya Felton APRN 1,000 mg at lisinopril tablet 20 mg 20 mg Oral BID [facility] 20 mg at 02/19/25811 nebivolol (Bystolic) tablet 5 mg 5 mg Oral Daily Ranjana Yu MD 5 mg at 06/12/25 0812 ondansetron ODT (Zofran-ODT) disintegrating tablet 4 mg 4 mg Oral q6h PRN Katharine Oreilly MD Or ondansetron (Zofran) injection 4 mg 4 mg Intravenous q6h PRN Katharine Oreilly MD pantoprazole (Protonix) EC tablet 40 mg 40 mg Oral Daily Romkeesha Michael A 40 mg at 02/19/25811 polyethylene glycol (Miralax) packet 17 g 17 g Oral BID Anaya Felton APRN senna-docusate (Maggy-Colace) 8.6-50 MG per tablet 2 tablet 2 tablet Oral BID Anaya Felton APRN 2 tablet at 02/19/25 08 sertraline (Zoloft) tablet 50 mg 50 mg Oral Daily Hakan Jainus A 50 mg at 02/19/25811 sodium chloride 0.9 % flush 10 mL 10 mL Intravenous q12h Katharine Oreilly MD 10 mL at 02/18/252021 And sodium chloride 0.9 % flush 10 mL 10 mL Intravenous PRN Katahrine Oreilly MD Last Recorded Vitals Visit Vitals [...] - 02/18/25 0659 02/18/25 0700 - 02/18/25 1859 02/18/25 1900 [...] any questions or concerns. Anaya Felton DNP, GRANULATOR TENDER Advanced Practice Provider Department of Neurosurgery [facility] * Assessment & Plan Note - [...] * Assessment & Plan Note - Anaya Fleton APRN - 02/18/2025 12:13 PM EDT Associated [...] q6h Anaya Felton APRN 4 mg at 840 heparin (porcine) injection 7,500 Units 7,500 Units [...] BID Anaya Felton APRN 1,000 mg at 820788 magnesium oxide (Mag-Ox) tablet 400 mg 400 mg Oral Once Anaya Felton APRN ondansetron ODT (Zofran-ODT) disintegrating tablet 4 mg 4 mg Oral q6h PRN Katharine Oreilly MD Or ondansetron (Zofran) injection 4 mg 4 mg Intravenous q6h PRN Katharine Oreilly MD pantoprazole (Protonix) EC tablet 40 mg 40 mg Oral Daily Susy Michael A 40 mg at 02/18/25 0842 polyethylene glycol (Miralax) packet 17 g 17 g Oral BID Anaya Felton APRN senna-docusate (Maggy-Colace) 8.6-50 MG per tablet 2 tablet 2 tablet Oral BID Anaya Felton APRN sertraline (Zoloft) tablet 50 mg 50 mg Oral Daily Hakan Jainus A 50 mg at 02/18/25 0842 sodium [...] 02/18/25 1256 Output by Drain (mL) 02/16/25 0700 - 02/16/25 1859 02/16/25 1900 - 02/17/25 [...] any questions or concerns. Anaya Felton DNP, JEFFREY Advanced Practice Provider Department of Neurosurgery [facility] * Care Plan - Sharmila Biggs RN - 02/18/2025 9:44 AM EDT Problem: Adult Inpatient Plan of Care Goal: Plan of Care Review Outcome: Ongoing, Progressing Flowsheets (Taken 02/18/2025 0943) Progress: improving Plan of Care Reviewed With: patient Problem: Adult Inpatient Plan of Care Goal: Patient-Specific Goal (Individualized) Outcome: Ongoing, Progressing Flowsheets (Taken 02/18/2025942) Patient/Family-Specific Goals (Include Timeframe): Pt will remain [...] Please call with any questions or concerns. [phone] Ranjana Yu MD Resident Physician, PGY-2 Department of Neurosurgery [facility] Cosigned by Ned Menendez MD at 02/18/2025 10:45 AM EDT Associated attestation - eNd Menendez MD - 02/18/2025 10:45 AM EDT [...] from last 7 days Lab Units 02/16/25 1810 02/16/25 1507 WBC 10*3/uL 10.56* 8.72 HEMOGLOBIN g/dL 13.2 13.0 HEMATOCRIT % 39.0 37.9 PLATELETS 10*3/uL 348 363 Results from last 7 days Lab Units 02/16/25 1810 APTT sec 23* INR 1.0 Results from [...] Resident Physician, PGY-2 Department of neurosurgery Pager: [phone] [1] Current Facility-Administered Medications Medication Dose Route [...] 1 (one) time each day. fish oil (Medanales-3) 500 MG capsule Take 2,400 mg by [...] 1 (one) time each day. Med Name: Lixiomara's Subhash 1000mg (Patient not taking: Reported on [...] Jackie Marin MD Director of Pediatric Neurosurgery Outer Diameter Grinder Tool of Neurosurgery Outer Diameter Grinder Tool of Pediatrics * ED Provider Notes - [...] normal. Affect is tearful. Behavior: Behavior normal. Prospect Coma Scale Score: 15 ED Course & [...] expressive aphasia that started at 0800. DAMIR MD notified and wants to evaluate piror to making stroke alert. documented in this encounter Plan of Treatment Upcoming Encounters Date Type Department Care Team (Late st Contact Info) Description 03/23/2025 1:45 PM EDT Clinical Support [facility] [address] [facility] [place] [id number] 03/23/2025 2:00 PM EDT Office Visit Pav [facility] [address] [facility] [place] [address] Chente Sebastian MD [address] [facility] Liyah Conde [facility] [address] [place] [address] 07/06/2025 9:30 AM EDT Office Visit [facility] [address] [place] [address] Sanchez Zaldivar MD [address] [place] [address] Scheduled Referrals Name Type Priority Associated Diagnoses [...] 10 mg Rectal Daily PRN Anaya Felton, JEFFREY cyclobenzaprine (Flexeril) tablet 5 mg 5 mg [...] tablet 4 mg 4 mg Oral BID Romkeesha Michael A Followed by [START ON 03/05/2025] [...] mg 40 mg Oral Daily Michael Jain 40 mg at 02/27/25 0839 polyethylene glycol (Miralax) packet 17 g 17 g Oral BID Anaya Felton APRN 17 g at 02/27/25 0839 senna-docusate (Maggy-Colace) 8.6-50 MG per tablet 2 tablet 2 tablet Oral BID Anaya Felton APRN 2 tablet at 02/27/25 0839 sertraline (Zoloft) tablet 50 mg 50 mg Oral Daily Michael Jain A 50 mg at 02/27/25 0839 sodium chloride 0.9 % flush 10 mL 10 mL Intravenous q12h Katharine Oreilly MD 10 mL at 02/26/252036 And sodium chloride 0.9 % flush 10 mL 10 mL Intravenous PRN Katharine Oreilly MD us Anaya Felton GRANULATOR TENDER NEUROLOGY ORDERABLES Final R esult * (ABNORMAL) Basic metabolic panel (02/27/2025 8:59 AM EDT) [facility] Glucose, Plasma 95 74 - 99 mg/dL 02/27/2025 9:40 AM EDT [facility] BUN, Plasma 21 8 - 23 mg/dL 02/27/2025 9:40 AM EDT [facility] Creatinine, Plasma 0.64 0.60 - 1.10 mg/dL 02/27/2025 9:40 AM EDT [facility] BUN/Creatinine Ratio 33 02/27/2025 9:40 AM EDT [facility] Sodium, Plasma 132(L) 136 - 145 mmol/L 02/27/2025 9:40 AM EDT [facility] Potassium, Plasma 4.2 3.6 - 4.9 mmol/L 02/27/2025 9:40 AM EDT [facility] Chloride, Plasma 97 97 - 107 mmol/L 02/27/2025 9:40 AM EDT [facility] CO2, Plasma 23 22 - 29 mmol/L 02/27/2025 9:40 AM EDT [facility] Anion Gap 12 6 - 16 mmol/L 02/27/2025 9:40 AM EDT [facility] Total Calcium, Plasma 9.2 8.9 - 10.2 mg/dL 02/27/2025 9:40 AM EDT [facility] eGFRcr 97.6 mL/min/1.7 3m*2 02/27/2025 9:40 AM EDT [facility] Comment:Reported eGFRcr in m L/min/1.73m2 is based the CKD-EPI 2020 equation that does not use a race coefficient. Blood Venous blood specimen / Unknown Venipuncture / Unknown 02/27/2025 8:59 AM EDT 02/27/2025 9:08 AM EDT Ede Ruiz MD LAB BLOOD ORDERABLES Final R esult Performing Organization Address [facility] Co de Phone Number [facility] [address] [place] [address] * Troponin T, High Sensitivity, 2 Hour, Plasma (02/26/2025 11:08 AM EDT) Troponin T, High Sensitivity, 2 Hour 8 <14 ng/L 02/26/2025 11:43 AM EDT [facility] Blood Venous blood specimen / Unknown Venipuncture / Unknown 02/26/2025 11:08 AM EDT 02/26/2025 11:15 AM EDT Ned Menendez MD LAB BLOOD ORDERABLES Final Res ult Performing Organization Address [facility] de Phone Number [facility] [address] [place] [address] * ECG Adult (02/26/2025 9:51 AM EDT) EKG DIAGNOSIS CLASS Normal MUSE ECG Ventricular Rate 73 BPM MUSE ECG Atrial Rate 73 BPM MUSE ECG HI Interval 176 ms MUSE ECG QRSD Interval 80 ms MUSE ECG QT Interval 380 ms MUSE ECG QTC Interval 418 ms MUSE ECG P [place] 9 degrees MUSE ECG R [place] 0 degrees MUSE ECG T Wave [place] 27 degrees MUSE ECG Diagnosis Normal sinus rhythm MUSE ECG Diagnosis MUSE ECG Diagnosis MUSE ECG Diagnosis Confirmed by aTsneem Ludwig ([id number]) on 02/27/2025 10:30:15 AM MUSE ECG 02/26/2025 9:51 AM EDT 02/27/2025 10:30 AM EDT Ned Menendez MD ECG ORDERABLES Final Result Performing Organization Address [facility] Co de Phone Number MUSE ECG * Troponin T, High Sensitivity, 0 Hour Plasma, Reflex to 2 Hour (02/26/2025 8:26 AM EDT) Troponin T, High Sensitivity, 0 Hour 11 <14 ng/L 02/26/2025 9:08 AM EDT [facility] Blood Venous blood specimen / Unknown Venipuncture / Unknown 02/26/2025 8:26 AM EDT 02/26/2025 8:38 AM EDT Ned Menendez MD LAB BLOOD ORDERABLES Final Res ult [facility] [address] [place] [address] * Protime-INR (02/26/2025 8:26 AM EDT) Prothrombin Time 13.4 12.0 - 14.3 sec LAB COAGULATION METHOD 02/26/2025 9:01 AM EDT [facility] INR 1.0 0.9 - 1.1 LAB COAGULATION METHOD 02/26/2025 9:01 AM EDT [facility] Blood Venous blood specimen / Unknown Venipuncture / Unknown 02/26/2025 8:26 AM EDT 02/26/2025 8:38 AM EDT Narrative [facility] - 02/26/2025 9:01 AM EDT OPTIMAL INR RANGES FOR PATIENT ON ORAL ANTICOAGULANT THERAPY Prevention of venous thromboembolism INR 2.0 to 3.0 In patients with heart disease: Atrial fibrillation INR 2.0 to 3.0 Valvular heart disease INR 2.0 to 3.0 Tissue heart valves INR 2.0 to 3.0 Mechanical prosthetic valves INR 2.5 to 3.5 Prevention of recurrent MT INR 2.5 to 3.5 us Ned Menendez MD LAB BLOOD ORDERABLES Final Res ult [facility] [address] [place] [address] * APTT (02/26/2025 8:26 AM EDT) aPTT 28 25 - 35 sec LAB COAGULATION METHOD 02/26/2025 9:01 AM EDT [facility] Blood Venous blood specimen / Unknown Venipuncture / Unknown 02/26/2025 8:26 AM EDT 02/26/2025 8:38 AM EDT us Ned Menendez MD LAB BLOOD ORDERABLES Final Res ult [facility] [address] [place] [address] * (ABNORMAL) CBC and differential (02/26/2025 8:26 AM EDT) WBC Count 14.93(H) 3.70 - 10.30 10*3/uL LAB HEMATOLOGY METHOD 02/26/2025 8:45 AM EDT [facility] RBC Count 4.36 3.90 - 5.20 10*6/uL LAB HEMATOLOGY METHOD 02/26/2025 8:45 AM EDT [facility] HGB 12.3 11.2 - 15.7 g/dL LAB HEMATOLOGY METHOD 02/26/2025 8:45 AM EDT [facility] HCT 36.1 34.0 - 45.0 % LAB HEMATOLOGY METHOD 02/26/2025 8:45 AM EDT [facility] Platelet Count 349 155 - 369 10*3/uL LAB HEMATOLOGY METHOD 02/26/2025 8:45 AM EDT [facility] MCV 83 79 - 98 fL LAB HEMATOLOGY METHOD 02/26/2025 8:45 AM EDT [facility] MCH 28.2 26.0 - 32.0 pg LAB HEMATOLOGY METHOD 02/26/2025 8:45 AM EDT [facility] MCHC 34.1 30.7 - 35.5 g/dL LAB HEMATOLOGY METHOD 02/26/2025 8:45 AM EDT [facility] RDW 13.1 11.5 - 14.5 % LAB HEMATOLOGY METHOD 02/26/2025 8:45 AM EDT [facility] MPV 9.2 8.8 - 12.5 fL LAB HEMATOLOGY METHOD 02/26/2025 8:45 AM EDT [facility] nRBC 0.0 <=0.0 per 100 WBCs LAB HEMATOLOGY METHOD 02/26/2025 8:45 AM EDT [facility] Differential Type Automated LAB HEMATOLOGY METHOD 02/26/2025 8:45 AM EDT [facility] Neutrophils % 80 % LAB HEMATOLOGY METHOD 02/26/2025 8:45 AM EDT [facility] Lymphocytes % 9 % LAB HEMATOLOGY METHOD 02/26/2025 8:45 AM EDT [facility] Monocytes % 10 % LAB HEMATOLOGY METHOD 02/26/2025 8:45 AM EDT [facility] Eosinophils % 0 % LAB HEMATOLOGY METHOD 02/26/2025 8:45 AM EDT [facility] Basophils % 0 % LAB HEMATOLOGY METHOD 02/26/2025 8:45 AM EDT [facility] Immature Granulocytes % 1 % LAB HEMATOLOGY METHOD 02/26/2025 8:45 AM EDT [facility] Neutrophils Absolute 11.91(H) 1.60 - 6.10 10*3/uL LAB HEMATOLOGY METHOD 02/26/2025 8:45 AM EDT [facility] Lymphocytes Absolute 1.41 1.20 - 3.90 10*3/uL LAB HEMATOLOGY METHOD 02/26/2025 8:45 AM EDT [facility] Monocytes Absolute 1.43(H) 0.30 - 0.90 10*3/uL LAB HEMATOLOGY METHOD 02/26/2025 8:45 AM EDT [facility] Eosinophils Absolute 0.00 0.00 - 0.50 10*3/uL LAB HEMATOLOGY METHOD 02/26/2025 8:45 AM EDT [facility] Basophils Absolute 0.02 0.00 - 0.10 10*3/uL LAB HEMATOLOGY METHOD 02/26/2025 8:45 AM EDT [facility] Immature Granulocytes Absolute 0.16(H) 0.00 - 0.06 10*3/uL LAB HEMATOLOGY METHOD 02/26/2025 8:45 AM EDT [facility] Blood Venous blood specimen / Unknown Venipuncture / Unknown 02/26/2025 8:26 AM EDT 02/26/2025 8:38 AM EDT [facility] - 02/26/2025 8:45 AM EDT Therapeutic decision making should be based on absolute values, rather than percentages. us Ned Menendez MD LAB BLOOD ORDERABLES Final Res ult [facility] [address] [place] [address] * (ABNORMAL) Basic metabolic panel (02/26/2025 8:26 AM EDT) Glucose, Plasma 128(H) 74 - 99 mg/dL 02/26/2025 9:08 AM EDT [facility] BUN, Plasma 16 8 - 23 mg/dL 02/26/2025 9:08 AM EDT [facility] Creatinine, Plasma 0.61 0.60 - 1.10 mg/dL 02/26/2025 9:08 AM EDT [facility] BUN/Creatinine Ratio 26 02/26/2025 9:08 AM EDT [facility] Sodium, Plasma 128(L) 136 - 145 mmol/L 02/26/2025 9:08 AM EDT [facility] Potassium, Plasma 4.5 3.6 - 4.9 mmol/L 02/26/2025 9:08 AM EDT [facility] Chloride, Plasma 94(L) 97 - 107 mmol/L 02/26/2025 9:08 AM EDT [facility] CO2, Plasma 22 22 - 29 mmol/L 02/26/2025 9:08 AM EDT [facility] Anion Gap 12 6 - 16 mmol/L 02/26/2025 9:08 AM EDT [facility] Total Calcium, Plasma 9.1 8.9 - 10.2 mg/dL 02/26/2025 9:08 AM EDT [facility] eGFRcr 98.7 mL/min/1.7 3m*2 02/26/2025 9:08 AM EDT [facility] Comment:Reported eGFRcr in m L/min/1.73m2 is based the CKD-EPI 2020 equation that does not use a race coefficient. Blood Venous blood specimen / Unknown Venipuncture / Unknown 02/26/2025 8:26 AM EDT 02/26/2025 8:38 AM EDT us Ned Menendez MD LAB BLOOD ORDERABLES Final Res ult [facility] [address] [place] [address] * (ABNORMAL) POCT glucose meter (02/26/2025 8:18 AM EDT) POCT Glucose 143(H) 74 - 99 mg/dL 02/26/2025 8:21 AM EDT [facility] Comment:Accuracy of [...] Comment 02/26/2025 8:21 AM EDT [facility] Survey Statistician ID Sherin Bynum 02/26/2025 8:21 AM EDT [facility] Device ID [id number] 02/26/2025 8:21 AM EDT [facility] Specimen Type POC Capillary 02/26/2025 8:21 AM EDT [facility] Blood Capillary blood specimen / Unknown 02/26/2025 8:18 AM EDT 02/26/2025 8:21 AM EDT Ned Menendez MD LAB POINT OF CARE TE ST DOCKED DEVICE UNSOLICITED RESULTS Final Result [facility] [address] [place] [address] * CT Angio Neck (02/26/2025 8:10 AM [...] Total DLP (Dose-Length Product): 953.08 mGy.cm (accession [id number]), 953.08 mGy.cm (accession [id number]). Please note: The reported value represents the [...] no aneurysm of either internal carotid artery. [place] of [place] and Major Peripheral Branches: There [...] Total DLP (Dose-Length Product): 953.08 mGy.cm (accession [id number]),953.08 mGy.cm (accession [id number]). Please note: The reported valuerepresents the total [...] segment and mild stenoses in the left [id number]. There is no definite evidence of a [...] no aneurysm of either internal carotid artery. [place] of [place] and Major Peripheral Branches: There [...] systems. Redemonstration of moderate stenoses in right [id number]. Redemonstration of mild irregularity/undulating contour of the [...] MD on 02/26/2025 8:59 AM Anaya Felton GRANULATOR TENDER IMG CT PROCEDURES Final Resu lt * CT Angio Head (02/26/2025 8:10 AM EDT) Anatomical Region Laterality Modality [place] Computed Tomogr aphy Impressions 02/26/2025 [...] Total DLP (Dose-Length Product): 953.08 mGy.cm (accession [id number]), 953.08 mGy.cm (accession [id number]). Please note: The reported value represents the [...] no aneurysm of either internal carotid artery. [place] and Major Peripheral Branches: There [...] Total DLP (Dose-Length Product): 953.08 mGy.cm (accession [id number]),953.08 mGy.cm (accession [id number]). Please note: The reported valuerepresents the total [...] segment and mild stenoses in the left [id number]. There is no definite evidence of a [...] no aneurysm of either internal carotid artery. [place] and Major Peripheral Branches: There [...] systems. Redemonstration of moderate stenoses in right [id number]. Redemonstration of mild irregularity/undulating contour of the cervicalinternal carotid arteries which could be due to fibromuscular dysplasia,although component of atherosclerosis/tortuosity cannot be excluded. Head CTA: No definite significant intracranial arterial stenosis or aneurysm ispresent. CRITICAL RESULT: No. COMMUNICATION: Per this written report. Drafted by Jeremias Yanez MD on 02/26/2025 8:35 AM Final report signed by Jeremias Yaenz MD on 02/26/2025 8:59 AM us Anaya Felton GRANULATOR TENDER IMG CT PROCEDURES Final Resu lt * [...] * Phosphorus, Plasma (02/26/2025 4:23 AM EDT) [facility] Phosphorus, Plasma 3.5 2.5 - 4.5 mg/dL 02/26/2025 4:57 AM EDT [facility] Blood Venous blood specimen / Unknown Venipuncture / Unknown 02/26/2025 4:23 AM EDT 02/26/2025 4:29 AM EDT Anaya M Jose Francisco GRANULATOR TENDER LAB BLOOD ORDERABLES Final R esult Performing Organization Address City/[facility]/ZIP Co de Phone Number [facility] [address] [place] [address] * Magnesium, Plasma (02/26/2025 4:23 AM EDT) [facility] Magnesium, Plasma 2.0 1.9 - 2.4 mg/dL 02/26/2025 4:57 AM EDT [facility] Blood Venous blood specimen / Unknown Venipuncture / Unknown 02/26/2025 4:23 AM EDT 02/26/2025 4:29 AM EDT [facility] GRANULATOR TENDER LAB BLOOD ORDERABLES Final R esult Performing Organization Address City/[facility]/ZIP Co de Phone Number [facility] [address] [place] [address] * (ABNORMAL) Basic Metabolic Panel, Plasma (02/26/2025 4:23 AM EDT) Glucose, Plasma 133(H) 74 - 99 mg/dL 02/26/2025 4:57 AM EDT [facility] BUN, Plasma 17 8 - 23 mg/dL 02/26/2025 4:57 AM EDT [facility] Creatinine, Plasma 0.64 0.60 - 1.10 mg/dL 02/26/2025 4:57 AM EDT [facility] BUN/Creatinine Ratio 27 02/26/2025 4:57 AM EDT [facility] Sodium, Plasma 129(L) 136 - 145 mmol/L 02/26/2025 4:57 AM EDT [facility] Potassium, Plasma 4.5 3.6 - 4.9 mmol/L 02/26/2025 4:57 AM EDT [facility] Chloride, Plasma 97 97 - 107 mmol/L 02/26/2025 4:57 AM EDT [facility] CO2, Plasma 24 22 - 29 mmol/L 02/26/2025 4:57 AM EDT [facility] Anion Gap 8 6 - 16 mmol/L 02/26/2025 4:57 AM EDT [facility] Total Calcium, Plasma 9.2 8.9 - 10.2 mg/dL 02/26/2025 4:57 AM EDT [facility] eGFRcr 97.6 mL/min/1.7 3m*2 02/26/2025 4:57 AM EDT [facility] Comment:Reported eGFRcr in m L/min/1.73m2 is based the CKD-EPI 2020 equation that does not use a race coefficient. Blood Venous blood specimen / Unknown Venipuncture / Unknown 02/26/2025 4:23 AM EDT 02/26/2025 4:29 AM EDT us Anaya Felton APRN LAB BLOOD ORDERABLES Final R esult [facility] [address] [place] [address] * (ABNORMAL) CBC W/O Differential (02/26/2025 4:23 AM EDT) WBC Count 15.84(H) 3.70 - 10.30 10*3/uL LAB HEMATOLOGY METHOD 02/26/2025 4:44 AM EDT [facility] RBC Count 4.27 3.90 - 5.20 10*6/uL LAB HEMATOLOGY METHOD 02/26/2025 4:44 AM EDT [facility] HGB 12.1 11.2 - 15.7 g/dL LAB HEMATOLOGY METHOD 02/26/2025 4:44 AM EDT [facility] HCT 35.8 34.0 - 45.0 % LAB HEMATOLOGY METHOD 02/26/2025 4:44 AM EDT [facility] Platelet Count 332 155 - 369 10*3/uL LAB HEMATOLOGY METHOD 02/26/2025 4:44 AM EDT [facility] MCV 84 79 - 98 fL LAB HEMATOLOGY METHOD 02/26/2025 4:44 AM EDT [facility] MCH 28.3 26.0 - 32.0 pg LAB HEMATOLOGY METHOD 02/26/2025 4:44 AM EDT [facility] MCHC 33.8 30.7 - 35.5 g/dL LAB HEMATOLOGY METHOD 02/26/2025 4:44 AM EDT [facility] RDW 13.2 11.5 - 14.5 % LAB HEMATOLOGY METHOD 02/26/2025 4:44 AM EDT [facility] MPV 9.1 8.8 - 12.5 fL LAB HEMATOLOGY METHOD 02/26/2025 4:44 AM EDT [facility] nRBC 0.0 <=0.0 per 100 WBCs LAB HEMATOLOGY METHOD 02/26/2025 4:44 AM EDT [facility] Blood Venous blood specimen / Unknown Venipuncture / Unknown 02/26/2025 4:23 AM EDT 02/26/2025 4:29 AM EDT us Anaya Felton GRANULATOR TENDER LAB BLOOD ORDERABLES Final R esult [facility] [address] [place] [address] * (ABNORMAL) Basic metabolic panel (02/25/2025 12:14 PM EDT) [facility] Glucose, Plasma 137(H) 74 - 99 mg/dL 02/25/2025 12:50 PM EDT [facility] BUN, Plasma 21 8 - 23 mg/dL 02/25/2025 12:50 PM EDT [facility] Creatinine, Plasma 0.62 0.60 - 1.10 mg/dL 02/25/2025 12:50 PM EDT [facility] BUN/Creatinine Ratio 34 02/25/2025 12:50 PM EDT [facility] Sodium, Plasma 129(L) 136 - 145 mmol/L 02/25/2025 12:50 PM EDT [facility] Potassium, Plasma 4.5 3.6 - 4.9 mmol/L 02/25/2025 12:50 PM EDT [facility] Chloride, Plasma 97 97 - 107 mmol/L 02/25/2025 12:50 PM EDT [facility] CO2, Plasma 22 22 - 29 mmol/L 02/25/2025 12:50 PM EDT [facility] Anion Gap 10 6 - 16 mmol/L 02/25/2025 12:50 PM EDT [facility] Total Calcium, Plasma 9.3 8.9 - 10.2 mg/dL 02/25/2025 12:50 PM EDT [facility] eGFRcr 98.4 mL/min/1.7 3m*2 02/25/2025 12:50 PM EDT [facility] Comment:Reported eGFRcr in m L/min/1.73m2 is based the CKD-EPI 2020 equation that does not use a race coefficient. Blood Venous blood specimen / Unknown Venipuncture / Unknown 02/25/2025 12:14 PM EDT 02/25/2025 12:19 PM EDT us Ede Ruiz MD LAB BLOOD ORDERABLES Final R esult [facility] [address] [place] [address] * MR Head w and wo IV [...] Narrative 02/25/2025 10:08 AM EDT CLINICAL INDICATION: Brain/FOLDER INSPECTOR neoplasm, assess treatment response. Postoperative from craniectomy [...] Marcus Elias MD - 02/25/2025 CLINICAL INDICATION: Brain/FOLDER INSPECTOR neoplasm, assess treatment response. Postoperative fromcraniectomy for [...] Marcus Elias MD on 02/25/2025 10:08 AM Sanchez Zaldivar MD IMG MRI PROCEDURES Final Resul t * (ABNORMAL) POCT glucose meter (02/25/2025 12:08 AM EDT) POCT Glucose 143(H) 74 - 99 mg/dL 02/25/2025 12:10 AM EDT [facility] Comment:Accuracy of a glucos e result [...] for testing. Comment 02/25/2025 12:10 AM EDT [facility] Survey Statistician ID Edwige Valdez 02/26/20 25 12:10 AM EDT [facility] Device ID [id number] 02/25/2025 12:10 AM EDT [facility] Specimen Type POC Capillary 02/25/2025 12:10 AM EDT [facility] Blood Capillary blood specimen / Unknown 02/25/2025 12:08 AM EDT 02/25/2025 12:10 AM EDT Ned Menendez MD LAB POINT OF CARE TE ST DOCKED DEVICE UNSOLICITED RESULTS Final Result [facility] [address] [place] [id number] * FISH, Paraffin 1p/19Q (02/24/2025 9:04 PM EDT) Specimen Adequacy Adequate 03/11/2025 1:32 PM EDT [facility] Clinical Indication 03/11/2025 1:32 PM EDT [facility] Comment: Pre-op diagnosis: Brain mass [G93.89] Interpretation Tissue type: Brain Pathology Case #: [id number] Block A3 FISH studies are NEGATIVE for [...] al. JNEN 2003;62(1):1118.). 03/11/2025 1:32 PM EDT [facility] ISCN nuc yesenia(MEGF6,TP73)x1~4, (ABL2,ANGPTL1)x1~4[6 0]/(MAN2B1,ZNF44)x1~ 5,(CRX,GLTSCR1)x1~5[ 60] [...] At least 60 cells were analyzed, and medical device sales representative images were captured and stored using [employer] software ([employer] Cutoff ratios are <0.75 for both probe pairs, with relative deletion seen in at least 20% of tumor cells. Results are reported as the ratio of total 1p to 1q signals and 19q to 19p signals. A ratio between 0.75 and 1.2 is considered normal and <0.75 is considered deletion for 1p or 19q. 03/11/2025 1:32 PM EDT [facility] REFERENCES Adrienne JAMISON et al. Clin Oncol 2015;17(8):445. Van den Sana MAHMOOD et al., Neuro-Oncology 2017;19(5):614. 03/11/2025 1:32 PM EDT [facility] Disclaimer This test was developed and its performance characteristics determined by the [facility] Cytogenetics [facility]. It has not been [...] specimen and probe. 03/11/2025 1:32 PM EDT [facility] Pathologist Signature Reviewed by: Paulo Peraza 03/11/2025 1:32 PM EDT [facility] Tissue 02/24/2025 9:04 PM EDT 03/05/2025 10:58 AM EDT us Sanchez Zaldivar MD LAB CYTOGENETICS ORDERABLES Fi nal Result [facility] [address] [place] [id number] * Surgical Pathology Exam (02/24/2025 9:04 PM EDT) Case Report Surgical Pathology Case: [id number] Authorizing Provider: Sanchez Zaldivar MD Collected: 02/24/20252103 Ordering Location: [facility] A OPERATING ROOM Received: 02/25/2025 08 Pathologist: Kayla Costello MD Specimens: A) - Brain, brain tumor sonopet contents B) - Other (specify site), tumor in saline 03/19/2025 9:52 AM EDT [facility] Correction History Reason for amendment: molecular testing (FISH and Caris) allowed for further subclassification. Drs. Zaldivar and Romulo were notified of the changes to the final report via secure communication by Elena Larios MD on 03/19/2025 . 03/19/2025 9:52 AM EDT [facility] Comment:These results have b een appended to a previously final verified report. 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 03/19/2025 9:52 AM EDT [facility] Microscopic Description IHC: A2-2 IDH-1 negatve (wild type) A3-5 ATRX positive (wild type) All controls show appropriate reactivity. All immunohistochemist ry, in situ hybridization, and histochemical tests were developed by and are performed at the [facility], [address] [place] [address]. All tests reported here, except those addressing [...] on decalcified specimens. 03/19/2025 9:52 AM EDT [facility] Gross Description A. BRAIN TUMOR [...] 02m Rosibel Stevens 03/19/2025 9:52 AM EDT [facility] Note: A resident was involved in the service. I attest I examined the relevant preparations for the specimens and confirmed the diagnosis or interpretation. 03/19/2025 9:52 AM EDT [facility] Tissue Brain structure / Unknown 02/24/2025 9:04 PM EDT 02/25/2025 8:24 AM EDT Comment:Pre-op diagnosis: Brain mass [G93.89] Tissue specimen (specimen) Topography unknown / Unknown 02/24/2025 11:22 PM EDT 02/25/2025 8:24 AM EDT Comment:Pre-op diagnosis: Brain mass [G93.89] us Sanchez Zaldivar MD LAB PATHOLOGY ORDERABLES Edite d Result - Final [facility] [address] [place] [address] * (ABNORMAL) Blood gas, arterial (02/24/2025 7:23 PM EDT) pH, Arterial 7.39 7.31 - 7.42 LAB HEMATOLOGY METHOD 02/24/2025 7:34 PM EDT [facility] pCO2, Arterial 33(L) 35 - 48 mmHg LAB HEMATOLOGY METHOD 02/24/2025 7:34 PM EDT [facility] pO2, Arterial 119 >80 mmHg LAB HEMATOLOGY METHOD 02/24/2025 7:34 PM EDT [facility] SO2, Measured, Arterial 100(H) 94 - 98 % LAB HEMATOLOGY METHOD 02/24/2025 7:34 PM EDT [facility] Base Excess, Arterial -4.3(L) -2.0 - 3.0 mmol/L LAB HEMATOLOGY METHOD 02/24/2025 7:34 PM EDT [facility] Bicarbonate, Calculated, Arterial 20(L) 22 - 26 mmol/L LAB HEMATOLOGY METHOD 02/24/2025 7:34 PM EDT [facility] Hematocrit, Whole Blood 37.4 34.0 - 45.0 % LAB HEMATOLOGY METHOD 02/24/2025 7:34 PM EDT [facility] Sodium, Whole Blood 129(L) 136 - 145 mmol/L LAB HEMATOLOGY METHOD 02/24/2025 7:34 PM EDT [facility] Potassium, Whole Blood 3.6 3.6 - 4.9 mmol/L LAB HEMATOLOGY METHOD 02/24/2025 7:34 PM EDT [facility] Chloride, Whole Blood 99 97 - 107 mmol/L LAB HEMATOLOGY METHOD 02/24/2025 7:34 PM EDT [facility] Glucose, Whole Blood 126(H) 74 - 99 mg/dL LAB HEMATOLOGY METHOD 02/24/2025 7:34 PM EDT [facility] Ionized Calcium, Whole Blood 4.6 4.6 - 5.1 mg/dL LAB HEMATOLOGY METHOD 02/24/2025 7:34 PM EDT [facility] Lactate, Arterial, Whole Blood 1.4 0.5 - 1.6 mmol/L LAB HEMATOLOGY METHOD 02/24/2025 7:34 PM EDT [facility] Blood Arterial blood specimen / Unknown Arterial Line / Unknown 02/24/2025 7:23 PM EDT 02/24/2025 7:33 PM EDT us Alessandro Medina DO LAB BLOOD ORDERABLES Final Res ult [facility] [address] [place] [address] * (ABNORMAL) Basic metabolic panel (02/24/2025 6:42 AM EDT) Glucose, Plasma 126(H) 74 - 99 mg/dL 02/24/2025 7:17 AM EDT [facility] BUN, Plasma 26(H) 8 - 23 mg/dL 02/24/2025 7:17 AM EDT [facility] Creatinine, Plasma 0.63 0.60 - 1.10 mg/dL 02/24/2025 7:17 AM EDT [facility] BUN/Creatinine Ratio 41 02/24/2025 7:17 AM EDT [facility] Sodium, Plasma 131(L) 136 - 145 mmol/L 02/24/2025 7:17 AM EDT [facility] Potassium, Plasma 4.7 3.6 - 4.9 mmol/L 02/24/2025 7:17 AM EDT [facility] Chloride, Plasma 98 97 - 107 mmol/L 02/24/2025 7:17 AM EDT [facility] CO2, Plasma 23 22 - 29 mmol/L 02/24/2025 7:17 AM EDT [facility] Anion Gap 10 6 - 16 mmol/L 02/24/2025 7:17 AM EDT [facility] Total Calcium, Plasma 9.4 8.9 - 10.2 mg/dL 02/24/2025 7:17 AM EDT [facility] eGFRcr 98.0 mL/min/1.7 3m*2 02/24/2025 7:17 AM EDT [facility] Comment:Reported eGFRcr in m L/min/1.73m2 is based the CKD-EPI 2020 equation that does not use a race coefficient. Blood Venous blood specimen / Unknown Venipuncture / Unknown 02/24/2025 6:42 AM EDT 02/24/2025 6:49 AM EDT Anaya Ever Felton GRANULATOR TENDER LAB BLOOD ORDERABLES Final R esult [facility] [address] [place] [address] * (ABNORMAL) Basic metabolic panel (02/24/2025 4:13 AM EDT) Glucose, Plasma 128(H) 74 - 99 mg/dL 02/24/2025 4:51 AM EDT [facility] BUN, Plasma 26(H) 8 - 23 mg/dL 02/24/2025 4:51 AM EDT [facility] Creatinine, Plasma 0.63 0.60 - 1.10 mg/dL 02/24/2025 4:51 AM EDT [facility] BUN/Creatinine Ratio 41 02/24/2025 4:51 AM EDT [facility] Sodium, Plasma 127(L) 136 - 145 mmol/L 02/24/2025 4:51 AM EDT [facility] Potassium, Plasma 4.7 3.6 - 4.9 mmol/L 02/24/2025 4:51 AM EDT [facility] Chloride, Plasma 97 97 - 107 mmol/L 02/24/2025 4:51 AM EDT [facility] CO2, Plasma 21(L) 22 - 29 mmol/L 02/24/2025 4:51 AM EDT [facility] Anion Gap 9 6 - 16 mmol/L 02/24/2025 4:51 AM EDT [facility] Total Calcium, Plasma 9.7 8.9 - 10.2 mg/dL 02/24/2025 4:51 AM EDT [facility] eGFRcr 98.0 mL/min/1.7 3m*2 02/24/2025 4:51 AM EDT [facility] Comment:Reported eGFRcr in m L/min/1.73m2 is based the CKD-EPI 2020 equation that does not use a race coefficient. Blood Venous blood specimen / Unknown Venipuncture / Unknown 02/24/2025 4:13 AM EDT 02/24/2025 4:20 AM EDT us Ned Menendez MD LAB BLOOD ORDERABLES Final Res ult [facility] [address] [place] [address] * (ABNORMAL) CBC and Differential (02/23/2025 5:11 PM EDT) WBC Count 11.24(H) 3.70 - 10.30 10*3/uL LAB HEMATOLOGY METHOD 02/23/2025 5:30 PM EDT [facility] RBC Count 4.59 3.90 - 5.20 10*6/uL LAB HEMATOLOGY METHOD 02/23/2025 5:30 PM EDT [facility] HGB 12.8 11.2 - 15.7 g/dL LAB HEMATOLOGY METHOD 02/23/2025 5:30 PM EDT [facility] HCT 38.5 34.0 - 45.0 % LAB HEMATOLOGY METHOD 02/23/2025 5:30 PM EDT [facility] Platelet Count 400(H) 155 - 369 10*3/uL LAB HEMATOLOGY METHOD 02/23/2025 5:30 PM EDT [facility] MCV 84 79 - 98 fL LAB HEMATOLOGY METHOD 02/23/2025 5:30 PM EDT [facility] MCH 27.9 26.0 - 32.0 pg LAB HEMATOLOGY METHOD 02/23/2025 5:30 PM EDT [facility] MCHC 33.2 30.7 - 35.5 g/dL LAB HEMATOLOGY METHOD 02/23/2025 5:30 PM EDT [facility] RDW 13.2 11.5 - 14.5 % LAB HEMATOLOGY METHOD 02/23/2025 5:30 PM EDT [facility] MPV 9.0 8.8 - 12.5 fL LAB HEMATOLOGY METHOD 02/23/2025 5:30 PM EDT [facility] nRBC 0.0 <=0.0 per 100 WBCs LAB HEMATOLOGY METHOD 02/23/2025 5:30 PM EDT [facility] Differential Type Automated LAB HEMATOLOGY METHOD 02/23/2025 5:30 PM EDT [facility] Neutrophils % 77 % LAB HEMATOLOGY METHOD 02/23/2025 5:30 PM EDT [facility] Lymphocytes % 15 % LAB HEMATOLOGY METHOD 02/23/2025 5:30 PM EDT [facility] Monocytes % 7 % LAB HEMATOLOGY METHOD 02/23/2025 5:30 PM EDT [facility] Eosinophils % 0 % LAB HEMATOLOGY METHOD 02/23/2025 5:30 PM EDT [facility] Basophils % 0 % LAB HEMATOLOGY METHOD 02/23/2025 5:30 PM EDT [facility] Immature Granulocytes % 1 % LAB HEMATOLOGY METHOD 02/23/2025 5:30 PM EDT [facility] Neutrophils Absolute 8.58(H) 1.60 - 6.10 10*3/uL LAB HEMATOLOGY METHOD 02/23/2025 5:30 PM EDT [facility] Lymphocytes Absolute 1.73 1.20 - 3.90 10*3/uL LAB HEMATOLOGY METHOD 02/23/2025 5:30 PM EDT [facility] Monocytes Absolute 0.74 0.30 - 0.90 10*3/uL LAB HEMATOLOGY METHOD 02/23/2025 5:30 PM EDT [facility] Eosinophils Absolute 0.04 0.00 - 0.50 10*3/uL LAB HEMATOLOGY METHOD 02/23/2025 5:30 PM EDT [facility] Basophils Absolute 0.02 0.00 - 0.10 10*3/uL LAB HEMATOLOGY METHOD 02/23/2025 5:30 PM EDT [facility] Immature Granulocytes Absolute 0.13(H) 0.00 - 0.06 10*3/uL LAB HEMATOLOGY METHOD 02/23/2025 5:30 PM EDT [facility] Blood Venous blood specimen / Unknown Venipuncture / Unknown 02/23/2025 5:11 PM EDT 02/23/2025 5:24 PM EDT Narrative [facility] - 02/23/2025 5:30 PM EDT Therapeutic decision making should be based on absolute values, rather than percentages. us Ned Menendez MD LAB BLOOD ORDERABLES Final Res ult [facility] [address] [place] [address] * (ABNORMAL) Comprehensive Metabolic Panel, Plasma (02/23/2025 5:11 PM EDT) Glucose, Plasma 119(H) 74 - 99 mg/dL 02/23/2025 5:54 PM EDT [facility] BUN, Plasma 20 8 - 23 mg/dL 02/23/2025 5:54 PM EDT [facility] Creatinine, Plasma 0.73 0.60 - 1.10 mg/dL 02/23/2025 5:54 PM EDT [facility] BUN/Creatinine Ratio 27 02/23/2025 5:54 PM EDT [facility] Sodium, Plasma 130(L) 136 - 145 mmol/L 02/23/2025 5:54 PM EDT [facility] Potassium, Plasma 4.4 3.6 - 4.9 mmol/L 02/23/2025 5:54 PM EDT [facility] Chloride, Plasma 96(L) 97 - 107 mmol/L 02/23/2025 5:54 PM EDT [facility] CO2, Plasma 22 22 - 29 mmol/L 02/23/2025 5:54 PM EDT [facility] Anion Gap 12 6 - 16 mmol/L 02/23/2025 5:54 PM EDT [facility] Total Calcium, Plasma 9.6 8.9 - 10.2 mg/dL 02/23/2025 5:54 PM EDT [facility] Total Protein 6.8 6.3 - 7.9 g/dL 02/23/2025 5:54 PM EDT [facility] Albumin, Plasma 4.1 3.5 - 5.2 g/dL 02/23/2025 5:54 PM EDT [facility] AST, Plasma 23 10 - 35 U/L 02/23/2025 5:54 PM EDT [facility] Comment:Hemolyzed, result ma y be falsely increased. ALT, Plasma 25 10 - 35 U/L 02/23/2025 5:54 PM EDT [facility] Alkaline Phosphatase, Plasma 52 46 - 142 U/L 02/23/2025 5:54 PM EDT [facility] Total Bilirubin, Plasma 0.3 0.2 - 1.1 mg/dL 02/23/2025 5:54 PM EDT [facility] eGFRcr 90.8 mL/min/1.7 3m*2 02/23/2025 5:54 PM EDT [facility] Comment:Reported eGFRcr in m L/min/1.73m2 is based the CKD-EPI 2020 equation that does not use a race coefficient. Blood Venous blood specimen / Unknown Venipuncture / Unknown 02/23/2025 5:11 PM EDT 02/23/2025 5:24 PM EDT us Ned Menendez MD LAB BLOOD ORDERABLES Final Res ult Performing Organization Address City/[facility]/ZIP Co de Phone Number [facility] [address] [place] [address] * (ABNORMAL) APTT (02/23/2025 5:11 PM EDT) aPTT 24(L) 25 - 35 sec LAB COAGULATION METHOD 02/23/2025 5:42 PM EDT [facility] Blood Venous blood specimen / Unknown Venipuncture / Unknown 02/23/2025 5:11 PM EDT 02/23/2025 5:24 PM EDT us Ned Menendez MD LAB BLOOD ORDERABLES Final Res ult [facility] [address] [place] [address] * Prothrombin Time/INR (02/23/2025 5:11 PM EDT) Prothrombin Time 13.1 12.0 - 14.3 sec LAB COAGULATION METHOD 02/23/2025 5:42 PM EDT [facility] INR 1.0 0.9 - 1.1 LAB COAGULATION METHOD 02/23/2025 5:42 PM EDT [facility] Blood Venous blood specimen / Unknown Venipuncture / Unknown 02/23/2025 5:11 PM EDT 02/23/2025 5:24 PM EDT Narrative [facility] - 02/23/2025 5:42 PM EDT OPTIMAL INR RANGES FOR PATIENT ON ORAL ANTICOAGULANT THERAPY Prevention of venous thromboembolism INR 2.0 to 3.0 In patients with heart disease: Atrial fibrillation INR 2.0 to 3.0 Valvular heart disease INR 2.0 to 3.0 Tissue heart valves INR 2.0 to 3.0 Mechanical prosthetic valves INR 2.5 to 3.5 Prevention of recurrent MT INR 2.5 to 3.5 us Ned Menendez MD LAB BLOOD ORDERABLES Final Res ult Performing Organization Address City/[facility]/ZIP Co de Phone Number [facility] [address] [place] [address] * Type and Screen (02/23/2025 5:11 PM EDT) [facility] ABO/Rh A Positive 02/23/2025 4:20 PM EDT BLOOD BANK Antibody Screen Negative 02/23/2025 4:20 PM EDT BLOOD BANK Specimen Expiration 02/26/2025 23:59 02/23/2025 4:20 PM EDT BLOOD BANK Blood Venous blood specimen / Unknown Venipuncture / Unknown 02/23/2025 5:11 PM EDT 02/23/2025 5:24 PM EDT Ned Menendez MD LAB BLOOD BANK TEST ORDERABLES Final Result Performing Organization Address [facility] Co de Phone Number BLOOD BANK [address] [place] [address], * (ABNORMAL) POCT glucose meter (02/23/2025 12:01 PM EDT) [facility] POCT Glucose 115(H) 74 - 99 mg/dL 02/23/2025 12:09 PM EDT [facility] Comment:Accuracy of a glucos e result [...] Comment 02/23/2025 12:09 PM EDT [facility]ALTH[facility] Survey Statistician ID Mehreen Kumari 02/24/20 12:09 PM EDT [facility]ALTH[facility]ARE LAB Device ID [id number] 02/23/2025 12:09 PM EDT [facility] Specimen Type POC Capillary 02/23/2025 12:09 PM EDT [facility] Blood Capillary blood specimen / Unknown 02/23/2025 12:01 PM EDT 02/23/2025 12:09 PM EDT us Ned Menendez MD LAB POINT OF CARE TE ST DOCKED DEVICE UNSOLICITED RESULTS Final Result Performing Organization Address City/State/[facility] Co de Phone Number HEALTHCARE LAB [address] [place] [address] * (ABNORMAL) POCT glucose meter (02/23/2025 8:20 AM EDT) [facility] POCT Glucose 142(H) 74 - 99 mg/dL [...] for testing. Comment 02/23/2025 11:54 AM EDT [facility]ALTHCARE LAB Survey Statistician ID eMhreen Kumari 02/24/20 11:54 AM EDT HEALTHCARE LAB Device ID [id number] 02/23/2025 11:54 AM EDT [facility] Specimen Type POC Capillary 02/23/2025 11:54 AM EDT [facility]ALTH[facility]ARE LAB Blood Capillary blood specimen / Unknown 02/23/2025 8:20 AM EDT 02/23/2025 11:54 AM EDT us Ned Menendez MD LAB POINT OF CARE TE ST DOCKED DEVICE UNSOLICITED RESULTS Final Result Performing Organization Address City/[facility] Co de Phone Number [facility] [address] [place] [address] * (ABNORMAL) Sodium (02/23/2025 12:40 AM EDT) [facility] Sodium, Plasma 134(L) 136 - 145 mmol/L 02/23/2025 1:32 AM EDT [facility] Blood Venous blood specimen / Unknown Venipuncture / Unknown 02/23/2025 12:40 AM EDT 02/23/2025 1:10 AM EDT us Anaya Felton APRN LAB BLOOD ORDERABLES Final R esult Performing Organization Address [facility] de Phone Number [facility] [address] [place] [address] * (ABNORMAL) POCT glucose meter (02/22/2025 7:51 PM EDT) [facility] POCT Glucose 118(H) 74 - 99 mg/dL 02/22/2025 8:17 PM EDT HEALTHCARE LAB Comment:Accuracy of a [...] 02/22/2025 8:17 PM EDT [facility] Survey Statistician ID Matt Calle 02/22/2025 8:17 PM EDT HEALTHCARE LAB Device ID [id number] 02/22/2025 8:17 PM EDT HEALTHCARE LAB Specimen Type POC Capillary 02/22/2025 8:17 PM EDT [facility] Blood Capillary blood specimen / Unknown 02/22/2025 7:51 PM EDT 02/22/2025 8:17 PM EDT us Ned Menendez MD LAB POINT OF CARE TE ST DOCKED DEVICE UNSOLICITED RESULTS Final Result Performing Organization Address [facility]/ZIP Co de Phone Number [facility] [address] [place] [address] * (ABNORMAL) POCT Glucose - Before Meals and Bedtime (02/22/2025 7:45 PM EDT) POCT Glucose 128(A) 74 - 99 mg/dL [facility]ALTH[facility]ARE LAB Blood Venous blood specimen / Unknown 02/22/2025 7:45 PM EDT us Anaya Curtis Waynejeff GRANULATOR TENDER POINT OF CARE TEST ENTER/FABIO T ORDERABLES Final Result [facility] [address] [place] [address] * MR Head w IV Contrast (02/22/2025 [...] Tanmay Alex MD on 02/23/2025 12:08 AM us Ned Menendez MD IMG MRI PROCEDURES Final Resul t * (ABNORMAL) POCT glucose meter (02/22/2025 3:40 PM EDT) POCT Glucose 129(H) 74 - 99 mg/dL 02/22/2025 3:44 PM EDT [facility] Comment:Accuracy of [...] for testing. Comment 02/22/2025 3:44 PM EDT [facility] Survey Statistician ID Елена Hyatt 3:44 PM EDT [facility] Device ID [id number] 02/22/2025 3:44 PM EDT [facility] Specimen Type POC Capillary 02/22/2025 3:44 PM EDT [facility] Blood Capillary blood specimen / Unknown 02/22/2025 3:40 PM EDT 02/22/2025 3:44 PM EDT us Ned Menendez MD LAB POINT OF CARE TE ST DOCKED DEVICE UNSOLICITED RESULTS Final Result [facility] [address] [place] [address] * (ABNORMAL) CBC W/O Differential (02/22/2025 12:45 PM EDT) WBC Count 12.31(H) 3.70 - 10.30 10*3/uL LAB HEMATOLOGY METHOD 02/22/2025 1:04 PM EDT [facility] RBC Count 4.86 3.90 - 5.20 10*6/uL LAB HEMATOLOGY METHOD 02/22/2025 1:04 PM EDT [facility] HGB 13.5 11.2 - 15.7 g/dL LAB HEMATOLOGY METHOD 02/22/2025 1:04 PM EDT [facility] HCT 40.9 34.0 - 45.0 % LAB HEMATOLOGY METHOD 02/22/2025 1:04 PM EDT [facility] Platelet Count 429(H) 155 - 369 10*3/uL LAB HEMATOLOGY METHOD 02/22/2025 1:04 PM EDT [facility] MCV 84 79 - 98 fL LAB HEMATOLOGY METHOD 02/22/2025 1:04 PM EDT [facility] MCH 27.8 26.0 - 32.0 pg LAB HEMATOLOGY METHOD 02/22/2025 1:04 PM EDT [facility] MCHC 33.0 30.7 - 35.5 g/dL LAB HEMATOLOGY METHOD 02/22/2025 1:04 PM EDT [facility] RDW 12.9 11.5 - 14.5 % LAB HEMATOLOGY METHOD 02/22/2025 1:04 PM EDT [facility] MPV 9.1 8.8 - 12.5 fL LAB HEMATOLOGY METHOD 02/22/2025 1:04 PM EDT [facility] nRBC 0.0 <=0.0 per 100 WBCs LAB HEMATOLOGY METHOD 02/22/2025 1:04 PM EDT [facility] Blood Venous blood specimen / Unknown Venipuncture / Unknown 02/22/2025 12:45 PM EDT 02/22/2025 12:56 PM EDT us Ned Menendez MD LAB BLOOD ORDERABLES Final Res ult [facility] [address] [place] [address] * (ABNORMAL) Basic Metabolic Panel, Plasma (02/22/2025 12:45 PM EDT) Glucose, Plasma 133(H) 74 - 99 mg/dL 02/22/2025 1:26 PM EDT [facility] BUN, Plasma 22 8 - 23 mg/dL 02/22/2025 1:26 PM EDT [facility] Creatinine, Plasma 0.67 0.60 - 1.10 mg/dL 02/22/2025 1:26 PM EDT [facility] BUN/Creatinine Ratio 33 02/22/2025 1:26 PM EDT [facility] Sodium, Plasma 130(L) 136 - 145 mmol/L 02/22/2025 1:26 PM EDT [facility] Potassium, Plasma 4.5 3.6 - 4.9 mmol/L 02/22/2025 1:26 PM EDT [facility] Chloride, Plasma 97 97 - 107 mmol/L 02/22/2025 1:26 PM EDT [facility] CO2, Plasma 21(L) 22 - 29 mmol/L 02/22/2025 1:26 PM EDT [facility] Anion Gap 12 6 - 16 mmol/L 02/22/2025 1:26 PM EDT [facility] Total Calcium, Plasma 9.7 8.9 - 10.2 mg/dL 02/22/2025 1:26 PM EDT [facility] eGFRcr 96.5 mL/min/1.7 3m*2 02/22/2025 1:26 PM EDT [facility] Comment:Reported eGFRcr in m L/min/1.73m2 is based the CKD-EPI 2020 equation that does not use a race coefficient. Blood Venous blood specimen / Unknown Venipuncture / Unknown 02/22/2025 12:45 PM EDT 02/22/2025 12:56 PM EDT us Ned Menendez MD LAB BLOOD ORDERABLES Final Res ult [facility] [address] [place] [address] * Magnesium, Plasma (02/22/2025 12:45 PM EDT) Magnesium, Plasma 2.0 1.9 - 2.4 mg/dL 02/22/2025 1:26 PM EDT [facility] Blood Venous blood specimen / Unknown Venipuncture / Unknown 02/22/2025 12:45 PM EDT 02/22/2025 12:56 PM EDT us Ned Menendez MD LAB BLOOD ORDERABLES Final Res ult [facility] [address] [place] [address] * Phosphorus, Plasma (02/22/2025 12:45 PM EDT) Phosphorus, Plasma 3.5 2.5 - 4.5 mg/dL 02/22/2025 1:26 PM EDT [facility] Blood Venous blood specimen / Unknown Venipuncture / Unknown 02/22/2025 12:45 PM EDT 02/22/2025 12:56 PM EDT us Ned Menendez MD LAB BLOOD ORDERABLES Final Res ult [facility] [address] [place] [address] * Prothrombin Time/INR (02/22/2025 12:45 PM EDT) Pathologist [facility] Prothrombin Time 12.9 12.0 - 14.3 sec LAB COAGULATION METHOD 02/22/2025 1:21 PM EDT [facility] INR 1.0 0.9 - 1.1 LAB COAGULATION METHOD 02/22/2025 1:21 PM EDT [facility] Blood Venous blood specimen / Unknown Venipuncture / Unknown 02/22/2025 12:45 PM EDT 02/22/2025 12:56 PM EDT Narrative [facility] - 02/22/2025 1:21 PM EDT OPTIMAL INR RANGES FOR PATIENT ON ORAL ANTICOAGULANT THERAPY Prevention of venous thromboembolism INR 2.0 to 3.0 In patients with heart disease: Atrial fibrillation INR 2.0 to 3.0 Valvular heart disease INR 2.0 to 3.0 Tissue heart valves INR 2.0 to 3.0 Mechanical prosthetic valves INR 2.5 to 3.5 Prevention of recurrent MT INR 2.5 to 3.5 Ned Menendez MD LAB BLOOD ORDERABLES Final Res ult Performing Organization Address [facility] Co de Phone Number [facility] [address] [place] [address] * APTT (02/22/2025 12:45 PM EDT) aPTT 29 25 - 35 sec LAB COAGULATION METHOD 02/22/2025 1:21 PM EDT [facility] Blood Venous blood specimen / Unknown Venipuncture / Unknown 02/22/2025 12:45 PM EDT 02/22/2025 12:56 PM EDT Ned Menendez MD LAB BLOOD ORDERABLES Final Res ult Performing Organization Address [facility] de Phone Number [facility] [address] [place] [address] * (ABNORMAL) Sodium (02/22/2025 12:45 PM EDT) [facility] Sodium, Plasma 130(L) 136 - 145 mmol/L 02/22/2025 1:26 PM EDT [facility] Blood Venous blood specimen / Unknown Venipuncture / Unknown 02/22/2025 12:45 PM EDT 02/22/2025 12:56 PM EDT Anaya Felton APRN LAB BLOOD ORDERABLES Final R esult Performing Organization Address [facility] Co de Phone Number [facility] [address] [place] [address] * (ABNORMAL) POCT glucose meter (02/22/2025 11:57 AM EDT) [facility] POCT Glucose 114(H) 74 - 99 mg/dL [...] 02/22/2025 12:02 PM EDT [facility] Survey Statistician ID Елена Hyatt 12:02 PM EDT [facility] Device ID [id number] 02/22/2025 12:02 PM EDT [facility] Specimen Type POC Capillary 02/22/2025 12:02 PM EDT [facility]ALTH[facility]ARE LAB Blood Capillary blood specimen / Unknown 02/22/2025 11:57 AM EDT 02/22/2025 12:02 PM EDT Ned Menendez MD LAB POINT OF CARE TE ST DOCKED DEVICE UNSOLICITED RESULTS Final Result Performing Organization Address City/State/[facility] Co de Phone Number [facility] [address] [place] [address] * (ABNORMAL) POCT glucose meter (02/22/2025 8:07 AM EDT) [facility] POCT Glucose 139(H) 74 - 99 mg/dL [...] for testing. Comment 02/22/2025 11:57 AM EDT [facility] Survey Statistician ID Елена Hyatt 11:57 AM EDT [facility] Device ID [id number] 02/22/2025 11:57 AM EDT [facility] Specimen Type POC Capillary 02/22/2025 11:57 AM EDT [facility]ALTH[facility]ARE LAB Blood Capillary blood specimen / Unknown 02/22/2025 8:07 AM EDT 02/22/2025 11:57 AM EDT Ned Menendez MD LAB POINT OF CARE TE ST DOCKED DEVICE UNSOLICITED RESULTS Final Result Performing Organization Address City/[facility]/ZIP Co de Phone Number [facility] [address] [place] [address] * (ABNORMAL) Sodium (02/22/2025 3:57 AM EDT) [facility] Sodium, Plasma 132(L) 136 - 145 mmol/L 02/22/2025 5:45 AM EDT [facility] Blood Venous blood specimen / Unknown Venipuncture / Unknown 02/22/2025 3:57 AM EDT 02/22/2025 4:28 AM EDT Result [facility] Anaya Felton APRN LAB BLOOD ORDERABLES Final R esult Performing Organization Address [facility] Phone Number [facility] [address] [place] [address] * (ABNORMAL) POCT glucose meter (02/21/2025 7:32 PM EDT) [facility] POCT Glucose 155(H) 74 - 99 mg/dL [...] for testing. Comment 02/21/2025 7:35 PM EDT [facility] Survey Statistician ID Jorje Rivas 7:35 PM EDT HEALTHCARE LAB Device ID [id number] 02/21/2025 7:35 PM EDT HEALTHCARE LAB Specimen Type POC Capillary 02/21/2025 7:35 PM EDT [facility] Blood Capillary blood specimen / Unknown 02/21/2025 7:32 PM EDT 02/21/2025 7:35 PM EDT us Ned Menendez MD LAB POINT OF CARE TE ST DOCKED DEVICE UNSOLICITED RESULTS Final Result Performing Organization Address [facility] Co de Phone Number HEALTHCARE LAB [address] [place] [address] * (ABNORMAL) POCT glucose meter (02/21/2025 4:01 PM EDT) [facility] POCT Glucose 131(H) 74 - 99 mg/dL [...] Comment 02/21/2025 5:25 PM EDT HEALTHCARE LAB Survey Statistician ID Елена Hyatt 5:25 PM EDT HEALTHCARE LAB Device ID [id number] 02/21/2025 5:25 PM EDT [facility] Specimen Type POC Capillary 02/21/2025 5:25 PM EDT [facility] Blood Capillary blood specimen / Unknown 02/21/2025 4:01 PM EDT 02/21/2025 5:25 PM EDT Ned Menendez MD LAB POINT OF CARE TE ST DOCKED DEVICE UNSOLICITED RESULTS Final Result Performing Organization Address [facility] de Phone Number HEALTHCARE LAB [address] [place] [address] * (ABNORMAL) Sodium (02/21/2025 4:01 PM EDT) [facility] Sodium, Plasma 131(L) 136 - 145 mmol/L 02/21/2025 4:31 PM EDT [facility] Blood Venous blood specimen / Unknown Venipuncture / Unknown 02/21/2025 4:01 PM EDT 02/21/2025 4:09 PM EDT Anaya Felton APRN LAB BLOOD ORDERABLES Final R esult Performing Organization Address City/[facility]/ZIP Co de Phone Number [facility] [address] [place] [address] * (ABNORMAL) POCT glucose meter (02/21/2025 12:08 PM EDT) [facility] POCT Glucose 152(H) 74 - 99 mg/dL 02/21/2025 12:43 PM EDT [facility] Comment:Accuracy of [...] Comment 02/21/2025 12:43 PM EDT HEALTHCARE LAB Survey Statistician ID RenoЕлена kennedy 12:43 PM EDT HEALTHCARE LAB Device ID [id number] 02/21/2025 12:43 PM EDT [facility] Specimen Type POC Capillary 02/21/2025 12:43 PM EDT [facility] Blood Capillary blood specimen / Unknown 02/21/2025 12:08 PM EDT 02/21/2025 12:43 PM EDT Ned Menendez MD LAB POINT OF CARE TE ST DOCKED DEVICE UNSOLICITED RESULTS Final Result [facility] [address] [place] [address] * (ABNORMAL) POCT glucose meter (02/21/2025 8:29 AM EDT) [facility] POCT Glucose 129(H) 74 - 99 mg/dL 02/21/2025 8:43 AM EDT [facility] Comment:Accuracy of [...] for testing. Comment 02/21/2025 8:43 AM EDT [facility] Survey Statistician ID RenoЕлена kennedy 8:43 AM EDT [facility] Device ID [id number] 02/21/2025 8:43 AM EDT HEALTHCARE LAB Specimen Type POC Capillary 02/21/2025 8:43 AM EDT [facility] Blood Capillary blood specimen / Unknown 02/21/2025 8:29 AM EDT 02/21/2025 8:43 AM EDT Ned Menendez MD LAB POINT OF CARE TE ST DOCKED DEVICE UNSOLICITED RESULTS Final Result Performing Organization Address City/[facility]/ZIP Co de Phone Number [facility] [address] [place] [address] * (ABNORMAL) Sodium (02/21/2025 4:31 AM EDT) Pathologist [facility] Sodium, Plasma 132(L) 136 - 145 mmol/L 02/21/2025 6:28 AM EDT [facility] Blood Venous blood specimen / Unknown Venipuncture / Unknown 02/21/2025 4:31 AM EDT 02/21/2025 6:04 AM EDT Anaya Felton GRANULATOR TENDER LAB BLOOD ORDERABLES Final R esult Performing Organization Address City/[facility] Co de Phone Number [facility] [address] [place] [address] * (ABNORMAL) POCT glucose meter (02/20/2025 7:45 PM EDT) Pathologist [facility] POCT Glucose 128(H) 74 - 99 mg/dL 02/20/2025 7:46 PM EDT [facility] Comment:Accuracy of [...] for testing. Comment 02/20/2025 7:46 PM EDT [facility] Survey Statistician ID Jorje Rivsa 7:46 PM EDT [facility] Device ID [id number] 02/20/2025 7:46 PM EDT HEALTHCARE LAB Specimen Type POC Capillary 02/20/2025 7:46 PM EDT [facility] Blood Capillary blood specimen / Unknown 02/20/2025 7:45 PM EDT 02/20/2025 7:46 PM EDT us Ned Menendez MD LAB POINT OF CARE TE ST DOCKED DEVICE UNSOLICITED RESULTS Final Result [facility]ARE [facility] [address] [place] [address] * (ABNORMAL) POCT glucose meter (02/20/2025 3:36 [...] for testing. Comment 02/20/2025 3:37 PM EDT [facility] Survey Statistician ID Edwige Vasquez 025 3:37 PM EDT HEALTHCARE LAB Device ID [id number] 02/20/2025 3:37 PM EDT [facility] Specimen Type POC Capillary 02/20/2025 3:37 PM EDT [facility] Blood Capillary blood specimen / Unknown 02/20/2025 3:36 PM EDT 02/20/2025 3:37 PM EDT us Ned Menendez MD LAB POINT OF CARE TE ST DOCKED DEVICE UNSOLICITED RESULTS Final Result [facility] [address] [place] [address] * (ABNORMAL) Sodium (02/20/2025 3:09 PM EDT) Sodium, Plasma 132(L) 136 - 145 mmol/L 02/20/2025 3:44 PM EDT [facility] Blood Venous blood specimen / Unknown Venipuncture / Unknown 02/20/2025 3:09 PM EDT 02/20/2025 3:21 PM EDT us Anaya Ever Felton GRANULATOR TENDER LAB BLOOD ORDERABLES Final R esult [facility] [address] [place] [address] * (ABNORMAL) POCT glucose meter (02/20/2025 11:45 AM EDT) POCT Glucose 152(H) 74 - 99 [...] for testing. Comment 02/20/2025 11:46 AM EDT [facility] Survey Statistician ID Edwige Vasquez 025 11:46 AM EDT [facility] Device ID [id number] 02/20/2025 11:46 AM EDT [facility] Specimen Type POC Capillary 02/20/2025 11:46 AM EDT [facility] Blood Capillary blood specimen / Unknown 02/20/2025 11:45 AM EDT 02/20/2025 11:46 AM EDT us Ned Menendez MD LAB POINT OF CARE TE ST DOCKED DEVICE UNSOLICITED RESULTS Final Result Performing Organization Address City/[facility]/ZIP Co de Phone Number [facility]ALTHCARE LAB [address] [place] [address] * (ABNORMAL) POCT glucose meter (02/20/2025 7:45 AM EDT) POCT Glucose 140(H) 74 - 99 mg/dL 02/20/2025 7:48 AM EDT [facility] Comment:Accuracy of [...] Comment 02/20/2025 7:48 AM EDT HEALTHCARE LAB Survey Statistician ID Edwige Vasquez 025 7:48 AM EDT HEALTHCARE LAB Device ID [id number] 02/20/2025 7:48 AM EDT [facility]ALTH[facility]ARE LAB Specimen Type POC Capillary 02/20/2025 7:48 AM EDT [facility] Blood Capillary blood specimen / Unknown 02/20/2025 7:45 AM EDT 02/20/2025 7:48 AM EDT us Ned Menendez MD LAB POINT OF CARE TE ST DOCKED DEVICE UNSOLICITED RESULTS Final Result Performing Organization Address [facility] Co de Phone Number HEALTHCARE LAB [address] [place] [address] * Lavender Top (02/20/2025 4:27 AM EDT) Extra Hold for add-ons 02/20/2025 8:02 AM EDT [facility] Comment:Auto resulted. Blood Venous blood specimen / Unknown 02/20/2025 4:27 AM EDT 02/20/2025 5:06 AM EDT us Ned Menendez MD LAB BLOOD ORDERABLES Final Res ult Performing Organization Address [facility] de Phone Number [facility] [address] [place] [address] * (ABNORMAL) Sodium (02/20/2025 4:27 AM EDT) Sodium, Plasma 132(L) 136 - 145 mmol/L 02/20/2025 5:24 AM EDT [facility] Blood Venous blood specimen / Unknown Venipuncture / Unknown 02/20/2025 4:27 AM EDT 02/20/2025 5:03 AM EDT us Anaya Felton APRN LAB BLOOD ORDERABLES Final R esult Performing Organization Address City/[facility] Co de Phone Number [facility] [address] [place] [address] * (ABNORMAL) POCT glucose meter (02/19/2025 7:59 PM EDT) Pathologist [facility] POCT Glucose 132(H) 74 - 99 mg/dL [...] Comment 02/19/2025 8:02 PM EDT HEALTHCARE LAB Survey Statistician ID Dm Reaves 8:02 PM EDT HEALTHCARE LAB Device ID [id number] 02/19/2025 8:02 PM EDT HEALTHCARE LAB Specimen Type POC Capillary 02/19/2025 8:02 PM EDT [facility] Blood Capillary blood specimen / Unknown 02/19/2025 7:59 PM EDT 02/19/2025 8:02 PM EDT Ned Menendez MD LAB POINT OF CARE TE ST DOCKED DEVICE UNSOLICITED RESULTS Final Result [facility] [address] [place] [address] * (ABNORMAL) Hemoglobin A1c (02/19/2025 4:17 PM EDT) [facility] Hemoglobin A1c 5.7(H) <5.7 % 02/19/2025 5:20 PM EDT [facility] Blood Venous blood specimen / Unknown Venipuncture / Unknown 02/19/2025 4:17 PM EDT 02/19/2025 4:49 PM EDT Narrative [facility] - 02/19/2025 5:20 PM EDT HA1C Interpretive Data: Diagnosis of Diabetes: Diabetic > or = 6.5% Pre-diabetic 5.7 to 6.4% Non-diabetic < or = 5.6% Glycemic Targets for Type I and Type II Diabetics: Non- Adults <7.0% Adults <6.0% Children and Adolescents <7.5% Source: [place] [employer]. Standards of medical care in diabetes,2017. Diabetes Care.2017:40 (suppl 1):S1-S135. [facility] BLOOD ORDERABLES Final R esult Performing Organization Address [facility] Co de Phone Number [facility] [address] [place] [address] * (ABNORMAL) Sodium (02/19/2025 4:17 PM EDT) [facility] Sodium, Plasma 129(L) 136 - 145 mmol/L 02/19/2025 5:06 PM EDT [facility] Blood Venous blood specimen / Unknown Venipuncture / Unknown 02/19/2025 4:17 PM EDT 02/19/2025 4:44 PM EDT [facility]LOOD ORDERABLES Final R esult Performing Organization Address [facility] de Phone Number [facility] [address] [place] [address] * (ABNORMAL) POCT glucose meter (02/19/2025 3:42 PM EDT) [facility] POCT Glucose 143(H) 74 - 99 mg/dL 02/19/2025 3:45 PM EDT [facility] Comment:Accuracy of [...] for testing. Comment 02/19/2025 3:45 PM EDT [facility] Survey Statistician ID Edmar Елена 3:45 PM EDT [facility] Device ID [id number] 02/19/2025 3:45 PM EDT [facility] Specimen Type POC Capillary 02/19/2025 3:45 PM EDT [facility] Blood Capillary blood specimen / Unknown 02/19/2025 3:42 PM EDT 02/19/2025 3:45 PM EDT us Ned Menendez MD LAB POINT OF CARE TE ST DOCKED DEVICE UNSOLICITED RESULTS Final Result Performing Organization Address [facility] de Phone Number [facility] [address] [place] [address] * (ABNORMAL) POCT glucose meter (02/19/2025 12:00 [...] for testing. Comment 02/19/2025 12:10 PM EDT [facility] Survey Statistician ID Елена Hyatt 12:10 PM EDT HEALTHCARE LAB Device ID [id number] 02/19/2025 12:10 PM EDT [facility] Specimen Type POC Capillary 02/19/2025 12:10 PM EDT [facility] Blood Capillary blood specimen / Unknown 02/19/2025 12:00 PM EDT 02/19/2025 12:10 PM EDT us Ned Menendez MD LAB POINT OF CARE TE ST DOCKED DEVICE UNSOLICITED RESULTS Final Result Performing Organization Address City/[facility] Co de Phone Number [facility] [address] [place] [address] * Creatinine, urine, random (02/19/2025 11:50 AM EDT) Creatinine, Urine 77 mg/dL 02/19/2025 12:53 PM EDT [facility] Urine Urine specimen obtained by clean catch procedure / Unknown Non-blood Collection / Unknown 02/19/2025 11:50 AM EDT 02/19/2025 12:09 PM EDT us Anaya Hdez MD LAB URINE ORDERABLES Final Resul t Performing Organization Address City/[facility] Co de Phone Number [facility] [address] [place] [address] * Osmolality, urine (02/19/2025 11:50 AM EDT) Osmolality, Urine 441 50 - 1,200 mOsm/kg 02/19/2025 12:55 PM EDT [facility] Urine Urine specimen obtained by clean catch procedure / Unknown Non-blood Collection / Unknown 02/19/2025 11:50 AM EDT 02/19/2025 12:09 PM EDT us Anaya Hdez MD LAB URINE ORDERABLES Final Resul t Performing Organization Address [facility] Co de Phone Number [facility] [address] [place] [address] * Sodium, urine, random (02/19/2025 11:50 AM EDT) Sodium, Urine 57 mmol/L 02/19/2025 12:53 PM EDT [facility] Urine Urine specimen obtained by clean catch procedure / Unknown Non-blood Collection / Unknown 02/19/2025 11:50 AM EDT 02/19/2025 12:09 PM EDT us Anaya Hdez MD LAB URINE ORDERABLES Final Resul t Performing Organization Address [facility] Co de Phone Number [facility] [address] [place] [address] * ECG Adult (02/19/2025 11:42 AM EDT) EKG DIAGNOSIS CLASS Borderline Normal MUSE ECG Ventricular Rate 66 BPM MUSE ECG Atrial Rate 66 BPM MUSE ECG HI Interval 194 ms MUSE ECG QRSD Interval 88 ms MUSE ECG QT Interval 404 ms MUSE ECG QTC Interval 423 ms MUSE ECG P [place] 51 degrees MUSE ECG R [place] 23 degrees MUSE ECG T Wave [place] 26 degrees MUSE ECG Diagnosis Sinus rhythm with occasional premature ventricular complexes MUSE ECG Diagnosis MUSE ECG Diagnosis MUSE ECG Diagnosis Confirmed by Tasneem Ludwig ([id number]) on 02/20/2025 11:51:00 AM MUSE ECG 02/19/2025 11:4 2 AM EDT 02/20/2025 11:51 AM EDT Anaya Hdez MD ECG ORDERABLES Final Result MUSE ECG * (ABNORMAL) Osmolality (02/19/2025 4:03 AM EDT) Osmolality, Serum 275(L) 280 - 301 mOsm/Kg 02/19/2025 11:41 AM EDT [facility] Blood Venous blood specimen / Unknown Venipuncture / Unknown 02/19/2025 4:03 AM EDT 02/19/2025 4:23 AM EDT Anaya Hdez MD LAB BLOOD ORDERABLES Final Resul t Performing Organization Address City/[facility]/ZIP Co de Phone Number [facility] [address] [place] [address] * (ABNORMAL) Sodium (02/19/2025 4:03 AM EDT) Sodium, Plasma 129(L) 136 - 145 mmol/L 02/19/2025 4:51 AM EDT [facility] Blood Venous blood specimen / Unknown Venipuncture / Unknown 02/19/2025 4:03 AM EDT 02/19/2025 4:23 AM EDT Anaya Felton APRN LAB BLOOD ORDERABLES Final R esult [facility] [address] [place] [address] * Phosphorus, Plasma (02/19/2025 4:03 AM EDT) Phosphorus, Plasma 3.2 2.5 - 4.5 mg/dL 02/19/2025 4:51 AM EDT [facility] Blood Venous blood specimen / Unknown Venipuncture / Unknown 02/19/2025 4:03 AM EDT 02/19/2025 4:23 AM EDT Anaya Felton GRANULATOR TENDER LAB BLOOD ORDERABLES Final R esult Performing Organization Address [facility]/ZIP Co de Phone Number [facility] [address] [place] [address] * Magnesium, Plasma (02/19/2025 4:03 AM EDT) Magnesium, Plasma 2.0 1.9 - 2.4 mg/dL 02/19/2025 4:51 AM EDT [facility] Blood Venous blood specimen / Unknown Venipuncture / Unknown 02/19/2025 4:03 AM EDT 02/19/2025 4:23 AM EDT Anaya Fleton GRANULATOR TENDER LAB BLOOD ORDERABLES Final R esult Performing Organization Address [facility] Co de Phone Number [facility] [address] [place] [address] * (ABNORMAL) Basic Metabolic Panel, Plasma (02/19/2025 4:03 AM EDT) Glucose, Plasma 153(H) 74 - 99 mg/dL 02/19/2025 4:51 AM EDT [facility] BUN, Plasma 14 8 - 23 mg/dL 02/19/2025 4:51 AM EDT [facility] Creatinine, Plasma 0.56(L) 0.60 - 1.10 mg/dL 02/19/2025 4:51 AM EDT [facility] BUN/Creatinine Ratio 25 02/19/2025 4:51 AM EDT [facility] Sodium, Plasma 129(L) 136 - 145 mmol/L 02/19/2025 4:51 AM EDT [facility] Potassium, Plasma 4.1 3.6 - 4.9 mmol/L 02/19/2025 4:51 AM EDT [facility] Chloride, Plasma 96(L) 97 - 107 mmol/L 02/19/2025 4:51 AM EDT [facility] CO2, Plasma 22 22 - 29 mmol/L 02/19/2025 4:51 AM EDT [facility] Anion Gap 11 6 - 16 mmol/L 02/19/2025 4:51 AM EDT [facility] Total Calcium, Plasma 9.6 8.9 - 10.2 mg/dL 02/19/2025 4:51 AM EDT [facility] eGFRcr 100.8 mL/min/1.7 3m*2 02/19/2025 4:51 AM EDT [facility] Comment:Reported eGFRcr in m L/min/1.73m2 is based the CKD-EPI 2020 equation that does not use a race coefficient. Blood Venous blood specimen / Unknown Venipuncture / Unknown 02/19/2025 4:03 AM EDT 02/19/2025 4:23 AM EDT Anaya Curtis Jose Francisco GRANULATOR TENDER LAB BLOOD ORDERABLES Final R esult Performing Organization Address City/[facility] Co de Phone Number [facility] [address] [place] [address] * (ABNORMAL) Sodium (02/18/2025 3:27 PM EDT) Sodium, Plasma 128(L) 136 - 145 mmol/L 02/18/2025 4:35 PM EDT [facility] Blood Venous blood specimen / Unknown Venipuncture / Unknown 02/18/2025 3:27 PM EDT 02/18/2025 4:00 PM EDT Anaya Blackjeff GRANULATOR TENDER LAB BLOOD ORDERABLES Final R esult Performing Organization Address City/[facility]/ZIP Co de Phone Number [facility] [address] [place] [address] * MR Brain Neurofunctional Test w Physician [...] margins. 3. Components of the corticospinal tract (CANVAS SHRINKER) have immediate proximity to the medial tumor margin. CRITICAL RESULT: No. COMMUNICATION: Per this written report. 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 TECHNIQUE: Anatomical MRI: 1 mm isotropic [...] margins. DTI Motor: The left corticospinal tract (CANVAS SHRINKER) is displaced medially. The CANVAS SHRINKER has proximity to the medial tumor margin at the level of ordza radiata and the posterior limb of the internal capsule. The relatively more posterior portion of the CANVAS SHRINKER has immediate proximity, while the more anterior portion of the CANVAS SHRINKER has close proximity with 3 mm [id number]-[id number] distance. DTI Language: The left superior longitudinal [...] completion language DTI fiber tracking: blue = CANVAS SHRINKER red = SLF Images were created in [facility] and then exported to PACS as burned in images. Saved Plan of fibertracking results will be found on the [facility] hot mill observer under the name fMRI_DTI Final. 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 TECHNIQUE: Anatomical MRI: 1 mm isotropic [...] margins. DTI Motor: The left corticospinal tract (CANVAS SHRINKER) is displaced medially. TheCST has proximity to the medial tumor margin at the level of coronaradiata and the posterior limb of the internal capsule. The relativelymore posterior portion of the CANVAS SHRINKER has immediate proximity, while the moreanterior portion of the CANVAS SHRINKER has close proximity with 3 mm qcryzx-gi-jattwldiztlop. DTI Language: The left superior longitudinal fasciculus [...] completion language DTI fiber tracking: blue = CANVAS SHRINKER red = SLF Images were created in [...] margins. 3. Components of the corticospinal tract (CANVAS SHRINKER) have immediate proximity tothe medial tumor margin. CRITICAL RESULT: No. COMMUNICATION: Per this written report. Drafted by Aurelio Brown MD on 02/18/2025 1:16 PM Final report signed by Aurelio Brown MD on 02/18/2025 6:45 PM Ned Menendez MD IM MRI PROCEDURES Final Resul t * (ABNORMAL) Comprehensive Metabolic Panel, Plasma (02/18/2025 8:54 AM EDT) Glucose, Plasma 106(H) 74 - 99 mg/dL 02/18/2025 9:38 AM EDT [facility] BUN, Plasma 11 8 - 23 mg/dL 02/18/2025 9:38 AM EDT [facility] Creatinine, Plasma 0.54(L) 0.60 - 1.10 mg/dL 02/18/2025 9:38 AM EDT [facility] BUN/Creatinine Ratio 20 02/18/2025 9:38 AM EDT [facility] Sodium, Plasma 132(L) 136 - 145 mmol/L 02/18/2025 9:38 AM EDT [facility] Potassium, Plasma 3.9 3.6 - 4.9 mmol/L 02/18/2025 9:38 AM EDT [facility] Chloride, Plasma 96(L) 97 - 107 mmol/L 02/18/2025 9:38 AM EDT [facility] CO2, Plasma 24 22 - 29 mmol/L 02/18/2025 9:38 AM EDT [facility] Anion Gap 12 6 - 16 mmol/L 02/18/2025 9:38 AM EDT [facility] Total Calcium, Plasma 8.9 8.9 - 10.2 mg/dL 02/18/2025 9:38 AM EDT [facility] Total Protein 6.8 6.3 - 7.9 g/dL 02/18/2025 9:38 AM EDT [facility] Albumin, Plasma 4.0 3.5 - 5.2 g/dL 02/18/2025 9:38 AM EDT [facility] AST, Plasma 27 10 - 35 U/L 02/18/2025 9:38 AM EDT [facility] Comment:Hemolyzed, result ma y be falsely increased. ALT, Plasma 19 10 - 35 U/L 02/18/2025 9:38 AM EDT [facility] Alkaline Phosphatase, Plasma 63 46 - 142 U/L 02/18/2025 9:38 AM EDT [facility] Total Bilirubin, Plasma 0.4 0.2 - 1.1 mg/dL 02/18/2025 9:38 AM EDT [facility] eGFRcr 101.7 mL/min/1.7 3m*2 02/18/2025 9:38 AM EDT [facility] Comment:Reported eGFRcr in m L/min/1.73m2 is based the CKD-EPI 2020 equation that does not use a race coefficient. Blood Venous blood specimen / Unknown Venipuncture / Unknown 02/18/2025 8:54 AM EDT 02/18/2025 9:07 AM EDT us Anaya Felton GRANULATOR TENDER LAB BLOOD ORDERABLES Final R esult [facility] [address] [place] [address] * Phosphorus, Plasma (02/18/2025 8:54 AM EDT) Phosphorus, Plasma 3.3 2.5 - 4.5 mg/dL 02/18/2025 9:38 AM EDT [facility] Blood Venous blood specimen / Unknown Venipuncture / Unknown 02/18/2025 8:54 AM EDT 02/18/2025 9:07 AM EDT Anaya Blackjeff GRANULATOR TENDER LAB BLOOD ORDERABLES Final R esult Performing Organization Address City/[facility]/ZIP Co de Phone Number [facility] [address] [place] [address] * (ABNORMAL) Magnesium, Plasma (02/18/2025 8:54 AM EDT) Pathologist [facility] Magnesium, Plasma 1.8(L) 1.9 - 2.4 mg/dL 02/18/2025 9:38 AM EDT [facility] Blood Venous blood specimen / Unknown Venipuncture / Unknown 02/18/2025 8:54 AM EDT 02/18/2025 9:07 AM EDT Anaya Curtis Jose Francisco BANNER LAB BLOOD ORDERABLES Final R esult Performing Organization Address City/[facility]/ZIP Co de Phone Number [facility] [address] [place] [address] * CBC W/O Differential (02/16/2025 9:51 PM EDT) [facility] WBC Count 10.03 3.70 - 10.30 10*3/uL LAB HEMATOLOGY METHOD 02/16/2025 10:10 PM EDT [facility] RBC Count 4.58 3.90 - 5.20 10*6/uL LAB HEMATOLOGY METHOD 02/16/2025 10:10 PM EDT [facility] HGB 13.0 11.2 - 15.7 g/dL LAB HEMATOLOGY METHOD 02/16/2025 10:10 PM EDT [facility] HCT 37.4 34.0 - 45.0 % LAB HEMATOLOGY METHOD 02/16/2025 10:10 PM EDT [facility] Platelet Count 365 155 - 369 10*3/uL LAB HEMATOLOGY METHOD 02/16/2025 10:10 PM EDT [facility] MCV 82 79 - 98 fL LAB HEMATOLOGY METHOD 02/16/2025 10:10 PM EDT [facility] MCH 28.4 26.0 - 32.0 pg LAB HEMATOLOGY METHOD 02/16/2025 10:10 PM EDT [facility] MCHC 34.8 30.7 - 35.5 g/dL LAB HEMATOLOGY METHOD 02/16/2025 10:10 PM EDT [facility] RDW 12.6 11.5 - 14.5 % LAB HEMATOLOGY METHOD 02/16/2025 10:10 PM EDT [facility] MPV 9.0 8.8 - 12.5 fL LAB HEMATOLOGY METHOD 02/16/2025 10:10 PM EDT [facility] nRBC 0.0 <=0.0 per 100 WBCs LAB HEMATOLOGY METHOD 02/16/2025 10:10 PM EDT [facility] Blood Venous blood specimen / Unknown Venipuncture / Unknown 02/16/2025 9:51 PM EDT 02/16/2025 10:08 PM EDT us Ned Menendez MD LAB BLOOD ORDERABLES Final Res ult [facility] [address] [place] [id number] * (ABNORMAL) Basic Metabolic Panel, Plasma (02/16/2025 9:51 PM EDT) Glucose, Plasma 135(H) 74 - 99 mg/dL 02/16/2025 10:31 PM EDT [facility] BUN, Plasma 9 8 - 23 mg/dL 02/16/2025 10:31 PM EDT [facility] Creatinine, Plasma 0.52(L) 0.60 - 1.10 mg/dL 02/16/2025 10:31 PM EDT [facility] BUN/Creatinine Ratio 17 02/16/2025 10:31 PM EDT [facility] Sodium, Plasma 125(L) 136 - 145 mmol/L 02/16/2025 10:31 PM EDT [facility] Potassium, Plasma 4.0 3.6 - 4.9 mmol/L 02/16/2025 10:31 PM EDT [facility] Chloride, Plasma 91(L) 97 - 107 mmol/L 02/16/2025 10:31 PM EDT [facility] CO2, Plasma 22 22 - 29 mmol/L 02/16/2025 10:31 PM EDT [facility] Anion Gap 12 6 - 16 mmol/L 02/16/2025 10:31 PM EDT [facility] Total Calcium, Plasma 9.7 8.9 - 10.2 mg/dL 02/16/2025 10:31 PM EDT [facility] eGFRcr 102.6 mL/min/1.7 3m*2 02/16/2025 10:31 PM EDT [facility] Comment:Reported eGFRcr in m L/min/1.73m2 is based the CKD-EPI 2020 equation that does not use a race coefficient. Blood Venous blood specimen / Unknown Venipuncture / Unknown 02/16/2025 9:51 PM EDT 02/16/2025 10:08 PM EDT Ned Menendez MD LAB BLOOD ORDERABLES Final Res ult Performing Organization Address City/[facility]/ZIP Co de Phone Number [facility] [address] [place] [address] * (ABNORMAL) Magnesium, Plasma (02/16/2025 9:51 PM EDT) Magnesium, Plasma 1.7(L) 1.9 - 2.4 mg/dL 02/16/2025 10:31 PM EDT [facility] Blood Venous blood specimen / Unknown Venipuncture / Unknown 02/16/2025 9:51 PM EDT 02/16/2025 10:08 PM EDT Ned Menendez MD LAB BLOOD ORDERABLES Final Res ult [facility] [address] [place] [address] * (ABNORMAL) Phosphorus, Plasma (02/16/2025 9:51 PM EDT) Phosphorus, Plasma 2.3(L) 2.5 - 4.5 mg/dL 02/16/2025 10:31 PM EDT [facility] Blood Venous blood specimen / Unknown Venipuncture / Unknown 02/16/2025 9:51 PM EDT 02/16/2025 10:08 PM EDT us Ned Menendez MD LAB BLOOD ORDERABLES Final Res ult [facility] [address] [place] [address] * Prothrombin Time/INR (02/16/2025 9:51 PM EDT) Prothrombin Time 13.3 12.0 - 14.3 sec 02/16/2025 10:28 PM EDT [facility] INR 1.0 0.9 - 1.1 02/16/2025 10:28 PM EDT [facility] Blood Venous blood specimen / Unknown Venipuncture / Unknown 02/16/2025 9:51 PM EDT 02/16/2025 10:08 PM EDT Narrative [facility] - 02/16/2025 10:28 PM EDT OPTIMAL INR RANGES FOR PATIENT ON ORAL ANTICOAGULANT THERAPY Prevention of venous thromboembolism INR 2.0 to 3.0 In patients with heart disease: Atrial fibrillation INR 2.0 to 3.0 Valvular heart disease INR 2.0 to 3.0 Tissue heart valves INR 2.0 to 3.0 Mechanical prosthetic valves INR 2.5 to 3.5 Prevention of recurrent MT INR 2.5 to 3.5 Result [facility] us Ned Menendez MD LAB BLOOD ORDERABLES Final Res ult Performing Organization Address City/[facility]/ZIP Co de Phone Number [facility] [address] [place] [address] * APTT (02/16/2025 9:51 PM EDT) aPTT 25 25 - 35 sec 02/16/2025 10:28 PM EDT [facility] Blood Venous blood specimen / Unknown Venipuncture / Unknown 02/16/2025 9:51 PM EDT 02/16/2025 10:08 PM EDT us Ned Menendez MD LAB BLOOD ORDERABLES Final Res ult Performing Organization Address City/[facility] Co de Phone Number [facility] [address] [place] [address] * Anti Xa Level Unfractionated Heparin (02/16/2025 9:51 PM EDT) Anti Xa Level Unfractionated Heparin <0.11 <1.00 IU/mL 02/16/2025 10:30 PM EDT [facility] Blood Venous blood specimen / Unknown Venipuncture / Unknown 02/16/2025 9:51 PM EDT 02/16/2025 10:08 PM EDT Narrative [facility] - 02/16/2025 10:30 PM EDT Therapeutic Range: UFH Full Dose and ACS/MT protocols*: 0.30 - 0.70 IU/mL UFH Low Dose protocol*: 0.25 - 0.50 IU/mL UFH prophylaxis: Not established [facility] BLOOD ORDERABLES Final Res ult Performing Organization Address [facility] Co de Phone Number [facility] [address] [place] [address] * MR Head w and wo IV [...] Tanmay Alex MD on 02/16/2025 11:25 PM Maximus Ambrocio DO IM MRI PROCEDURES Final [...] Total DLP (Dose-Length Product): 1500.35 mGy.cm (accession [id number]), 1500.35 mGy.cm (accession [id number]). Please note: The reported value represents the [...] Total DLP (Dose-Length Product): 1500.35 mGy.cm (accession [id number]),1500.35 mGy.cm (accession [id number]). Please note: The reported valuerepresents the total [...] Johny Win MD on 02/16/2025 9:12 PM Maximus Ambrocio DO IMG CT PROCEDURES Final [...] Total DLP (Dose-Length Product): 1500.35 mGy.cm (accession [id number]), 1500.35 mGy.cm (accession [id number]). Please note: The reported value represents the [...] Total DLP (Dose-Length Product): 1500.35 mGy.cm (accession [id number]),1500.35 mGy.cm (accession [id number]). Please note: The reported valuerepresents the total [...] signing this report, I, the attending physician, attambarthat I have personally reviewed the images/data for the aboveexamination(s) and agree with the final edited report. Drafted by Xiang Goff MD on 02/16/2025 8:43 PM Final report signed by Johny Win MD on 02/16/2025 9:12 PM Maximus Ambrocio DO IMG CT PROCEDURES Final Result * P2Y12 Platelet Receptor Blockade, Verify Now PRU (02/16/2025 7:25 PM EDT) P2Y12 PRU 201 194 - 418 PRU 02/16/2025 7:43 PM EDT [facility] Blood Venous blood specimen / Unknown Venipuncture / Unknown 02/16/2025 7:25 PM EDT 02/16/2025 7:31 PM EDT Narrative [facility] - 02/16/2025 7:43 PM EDT [...] to the clinician. Testing performed in the [facility]. us Maximus Ambrocio DO LAB BLOOD ORDERABLES Final Res ult [facility] [address] [place] [address] * (ABNORMAL) CBC and Differential (02/16/2025 6:10 PM EDT) WBC Count 10.56(H) 3.70 - 10.30 10*3/uL LAB HEMATOLOGY METHOD 02/16/2025 6:18 PM EDT [facility] RBC Count 4.68 3.90 - 5.20 10*6/uL LAB HEMATOLOGY METHOD 02/16/2025 6:18 PM EDT [facility] HGB 13.2 11.2 - 15.7 g/dL LAB HEMATOLOGY METHOD 02/16/2025 6:18 PM EDT [facility] HCT 39.0 34.0 - 45.0 % LAB HEMATOLOGY METHOD 02/16/2025 6:18 PM EDT [facility] Platelet Count 348 155 - 369 10*3/uL LAB HEMATOLOGY METHOD 02/16/2025 6:18 PM EDT [facility] MCV 83 79 - 98 fL LAB HEMATOLOGY METHOD 02/16/2025 6:18 PM EDT [facility] MCH 28.2 26.0 - 32.0 pg LAB HEMATOLOGY METHOD 02/16/2025 6:18 PM EDT [facility] MCHC 33.8 30.7 - 35.5 g/dL LAB HEMATOLOGY METHOD 02/16/2025 6:18 PM EDT [facility] RDW 12.6 11.5 - 14.5 % LAB HEMATOLOGY METHOD 02/16/2025 6:18 PM EDT [facility] MPV 8.9 8.8 - 12.5 fL LAB HEMATOLOGY METHOD 02/16/2025 6:18 PM EDT [facility] nRBC 0.0 <=0.0 per 100 WBCs LAB HEMATOLOGY METHOD 02/16/2025 6:18 PM EDT [facility] Differential Type Automated LAB HEMATOLOGY METHOD 02/16/2025 6:18 PM EDT [facility] Neutrophils % 69 % LAB HEMATOLOGY METHOD 02/16/2025 6:18 PM EDT [facility] Lymphocytes % 23 % LAB HEMATOLOGY METHOD 02/16/2025 6:18 PM EDT [facility] Monocytes % 7 % LAB HEMATOLOGY METHOD 02/16/2025 6:18 PM EDT [facility] Eosinophils % 0 % LAB HEMATOLOGY METHOD 02/16/2025 6:18 PM EDT [facility] Basophils % 1 % LAB HEMATOLOGY METHOD 02/16/2025 6:18 PM EDT [facility] Immature Granulocytes % 0 % LAB HEMATOLOGY METHOD 02/16/2025 6:18 PM EDT [facility] Neutrophils Absolute 7.33(H) 1.60 - 6.10 10*3/uL LAB HEMATOLOGY METHOD 02/16/2025 6:18 PM EDT [facility] Lymphocytes Absolute 2.38 1.20 - 3.90 10*3/uL LAB HEMATOLOGY METHOD 02/16/2025 6:18 PM EDT [facility] Monocytes Absolute 0.73 0.30 - 0.90 10*3/uL LAB HEMATOLOGY METHOD 02/16/2025 6:18 PM EDT [facility] Eosinophils Absolute 0.03 0.00 - 0.50 10*3/uL LAB HEMATOLOGY METHOD 02/16/2025 6:18 PM EDT [facility] Basophils Absolute 0.05 0.00 - 0.10 10*3/uL LAB HEMATOLOGY METHOD 02/16/2025 6:18 PM EDT [facility] Immature Granulocytes Absolute 0.04 0.00 - 0.06 10*3/uL LAB HEMATOLOGY METHOD 02/16/2025 6:18 PM EDT [facility] Blood Venous blood specimen / Unknown Venipuncture / Unknown 02/16/2025 6:10 PM EDT 02/16/2025 6:14 PM EDT Narrative [facility] - 02/16/2025 6:18 PM EDT Therapeutic decision making should be based on absolute values, rather than percentages. us Maximus Ambrocio DO LAB BLOOD ORDERABLES Final Res ult [facility] [address] [place] [address] * (ABNORMAL) Comprehensive Metabolic Panel, Plasma (02/16/2025 6:10 PM EDT) Glucose, Plasma 102(H) 74 - 99 mg/dL 02/16/2025 6:35 PM EDT [facility] BUN, Plasma 11 8 - 23 mg/dL 02/16/2025 6:35 PM EDT [facility] Creatinine, Plasma 0.57(L) 0.60 - 1.10 mg/dL 02/16/2025 6:35 PM EDT [facility] BUN/Creatinine Ratio 19 02/16/2025 6:35 PM EDT [facility] Sodium, Plasma 126(L) 136 - 145 mmol/L 02/16/2025 6:35 PM EDT [facility] Potassium, Plasma 4.2 3.6 - 4.9 mmol/L 02/16/2025 6:35 PM EDT [facility] Comment:Hemolyzed, result ma y be falsely increased. Chloride, Plasma 91(L) 97 - 107 mmol/L 02/16/2025 6:35 PM EDT [facility] CO2, Plasma 22 22 - 29 mmol/L 02/16/2025 6:35 PM EDT [facility] Anion Gap 13 6 - 16 mmol/L 02/16/2025 6:35 PM EDT [facility] Total Calcium, Plasma 9.7 8.9 - 10.2 mg/dL 02/16/2025 6:35 PM EDT [facility] Total Protein 7.7 6.3 - 7.9 g/dL 02/16/2025 6:35 PM EDT [facility] Albumin, Plasma 4.6 3.5 - 5.2 g/dL 02/16/2025 6:35 PM EDT [facility] AST, Plasma 30 10 - 35 U/L 02/16/2025 6:35 PM EDT [facility] Comment:Hemolyzed, result ma y be falsely increased. ALT, Plasma 22 10 - 35 U/L 02/16/2025 6:35 PM EDT [facility] Alkaline Phosphatase, Plasma 70 46 - 142 U/L 02/16/2025 6:35 PM EDT [facility] Total Bilirubin, Plasma 0.3 0.2 - 1.1 mg/dL 02/16/2025 6:35 PM EDT [facility] eGFRcr 100.4 mL/min/1.7 3m*2 02/16/2025 6:35 PM EDT [facility] Comment:Reported eGFRcr in m L/min/1.73m2 is based the CKD-EPI 2020 equation that does not use a race coefficient. Blood Venous blood specimen / Unknown Venipuncture / Unknown 02/16/2025 6:10 PM EDT 02/16/2025 6:14 PM EDT [employer] DO LAB BLOOD ORDERABLES Final Res ult Performing Organization Address City/[facility]/ZIP Co de Phone Number [facility] [address] [place] [address] * (ABNORMAL) APTT (02/16/2025 6:10 PM EDT) aPTT 23(L) 25 - 35 sec 02/16/2025 6:32 PM EDT [facility] Blood Venous blood specimen / Unknown Venipuncture / Unknown 02/16/2025 6:10 PM EDT 02/16/2025 6:14 PM EDT [employer] DO LAB BLOOD ORDERABLES Final Res ult [facility] [address] [place] [address] * Prothrombin Time/INR (02/16/2025 6:10 PM EDT) Prothrombin Time 12.7 12.0 - 14.3 sec 02/16/2025 6:32 PM EDT [facility] INR 1.0 0.9 - 1.1 02/16/2025 6:32 PM EDT [facility] Blood Venous blood specimen / Unknown Venipuncture / Unknown 02/16/2025 6:10 PM EDT 02/16/2025 6:14 PM EDT Narrative [facility] - 02/16/2025 6:32 PM EDT OPTIMAL INR RANGES FOR PATIENT ON ORAL ANTICOAGULANT THERAPY Prevention of venous thromboembolism INR 2.0 to 3.0 In patients with heart disease: Atrial fibrillation INR 2.0 to 3.0 Valvular heart disease INR 2.0 to 3.0 Tissue heart valves INR 2.0 to 3.0 Mechanical prosthetic valves INR 2.5 to 3.5 Prevention of recurrent MT INR 2.5 to 3.5 [employer] LAB BLOOD ORDERABLES Final Res ult [facility] [address] [place] [address] * Type and Screen (02/16/2025 6:10 PM EDT) Pathologist [facility] ABO/Rh A Positive 02/16/2025 5:59 PM EDT BLOOD BANK Antibody Screen Negative 02/16/2025 5:59 PM EDT [facility]LO[facility] Specimen Expiration 02/19/2025 23:59 02/16/2025 5:59 PM EDT [facility] Blood Venous blood specimen / Unknown Venipuncture / Unknown 02/16/2025 6:10 PM EDT 02/16/2025 6:13 PM EDT [facility] BLOOD BANK TEST ORDERABLES Final Result Performing Organization Address City/[facility]/ZIP Co de Phone Number BLOOD BANK [address] [place] [address], [place] * CT Head w and wo [...] 5:54 PM by Tanmay Alex MD via [employer] Secure Chat. Drafted by Tanmay Alex MD [...] TOTAL DLP (Dose-Length Product): 743.50 mGy.cm (accession [id number]), 743.50 mGy.cm (accession [id number]), 743.50 mGy.cm (accession [id number]). Please note: The reported value represents the [...] No aneurysm of either internal carotid artery. Mcgrath of [place] and Major Peripheral Branches: There [...] TOTAL DLP (Dose-Length Product): 743.50 mGy.cm (accession [id number]),743.50 mGy.cm (accession [id number]), 743.50 mGy.cm (accession [id number]).Please note: The reported value represents the total [...] arteries: Multifocal moderate stenosis at the proximal [id number] of the right vertebral artery. Mild stenosis [...] No aneurysm of either internal carotid artery. Mcgrath of [place] and Major Peripheral Branches: There [...] 02/16/2025 5:54 PMby Tanmay Alex MD via [employer] Secure Chat. Drafted by Tanmay Alex MD on 02/16/2025 5:51 PM Final report signed by Tanmay Alex MD on 02/16/2025 6:18 PM Maximus Ambrocio DO IMG CT PROCEDURES Final [...] 5:54 PM by Tanmay Alex MD via [employer] Secure Chat. Drafted by Tanmay Alex MD [...] TOTAL DLP (Dose-Length Product): 743.50 mGy.cm (accession [id number]), 743.50 mGy.cm (accession [id number]), 743.50 mGy.cm (accession [id number]). Please note: The reported value represents the [...] No aneurysm of either internal carotid artery. [place] of [place] and Major Peripheral Branches: There [...] TOTAL DLP (Dose-Length Product): 743.50 mGy.cm (accession [id number]),743.50 mGy.cm (accession [id number]), 743.50 mGy.cm (accession [id number]).Please note: The reported value represents the total [...] arteries: Multifocal moderate stenosis at the proximal [id number] of the right vertebral artery. Mild stenosis [...] No aneurysm of either internal carotid artery. [place] of [place] and Major Peripheral Branches: There [...] 02/16/2025 5:54 PMby Tanmay Alex MD via [email or web address]. Drafted by Tanmay Alex MD on 02/16/2025 5:51 PM Final report signed by Tanmay Alex MD on 02/16/2025 6:18 PM us Kami Amin DO IMG CT PROCEDURES Final Resul t * CT Angio Head (02/16/2025 3:41 PM EDT) Anatomical Region Laterality Modality [place] Computed Tomogr aphy Impressions 02/16/2025 [...] 5:54 PM by Tanmay Alex MD via [email or web address]. Drafted by Tanmay Alex MD on 02/16/2025 [...] TOTAL DLP (Dose-Length Product): 743.50 mGy.cm (accession [id number]), 743.50 mGy.cm (accession [id number]), 743.50 mGy.cm (accession [id number]). Please note: The reported value represents the [...] No aneurysm of either internal carotid artery. [place]ath of [place] and Major Peripheral Branches: There [...] TOTAL DLP (Dose-Length Product): 743.50 mGy.cm (accession [id number]),743.50 mGy.cm (accession [id number]), 743.50 mGy.cm (accession [id number]).Please note: The reported value represents the total [...] arteries: Multifocal moderate stenosis at the proximal [id number] of the right vertebral artery. Mild stenosis [...] No aneurysm of either internal carotid artery. [place] of [place] and Major Peripheral Branches: There [...] 02/16/2025 5:54 PMby Tanmay Alex MD via [employer] Secure Chat. Drafted by Tanmay Alex MD on 02/16/2025 5:51 PM Final report signed by Tanmay Alex MD on 02/16/2025 6:18 PM us Kami Amin DO IMG CT PROCEDURES Final Resul t * CBC (02/16/2025 3:07 PM EDT) WBC Count 8.72 3.70 - 10.30 10*3/uL LAB HEMATOLOGY METHOD 02/16/2025 3:14 PM EDT [facility] RBC Count 4.57 3.90 - 5.20 10*6/uL LAB HEMATOLOGY METHOD 02/16/2025 3:14 PM EDT [facility] HGB 13.0 11.2 - 15.7 g/dL LAB HEMATOLOGY METHOD 02/16/2025 3:14 PM EDT [facility] HCT 37.9 34.0 - 45.0 % LAB HEMATOLOGY METHOD 02/16/2025 3:14 PM EDT [facility] Platelet Count 363 155 - 369 10*3/uL LAB HEMATOLOGY METHOD 02/16/2025 3:14 PM EDT [facility] MCV 83 79 - 98 fL LAB HEMATOLOGY METHOD 02/16/2025 3:14 PM EDT [facility] MCH 28.4 26.0 - 32.0 pg LAB HEMATOLOGY METHOD 02/16/2025 3:14 PM EDT [facility] MCHC 34.3 30.7 - 35.5 g/dL LAB HEMATOLOGY METHOD 02/16/2025 3:14 PM EDT [facility] RDW 12.6 11.5 - 14.5 % LAB HEMATOLOGY METHOD 02/16/2025 3:14 PM EDT [facility] MPV 8.8 8.8 - 12.5 fL LAB HEMATOLOGY METHOD 02/16/2025 3:14 PM EDT [facility] nRBC 0.0 <=0.0 per 100 WBCs LAB HEMATOLOGY METHOD 02/16/2025 3:14 PM EDT [facility] Blood Venous blood specimen / Unknown Venipuncture / Unknown 02/16/2025 3:07 PM EDT 02/16/2025 3:11 PM EDT Kami Campbell Eloisa DO LAB BLOOD ORDERABLES Final Re sult [facility] [address] [place] [address] * (ABNORMAL) CMP (02/16/2025 3:07 PM EDT) Glucose, Plasma 119(H) 74 - 99 mg/dL 02/16/2025 3:48 PM EDT [facility] BUN, Plasma 12 8 - 23 mg/dL 02/16/2025 3:48 PM EDT [facility] Creatinine, Plasma 0.57(L) 0.60 - 1.10 mg/dL 02/16/2025 3:48 PM EDT [facility] BUN/Creatinine Ratio 21 02/16/2025 3:48 PM EDT [facility] Sodium, Plasma 132(L) 136 - 145 mmol/L 02/16/2025 3:48 PM EDT [facility] Potassium, Plasma 4.3 3.6 - 4.9 mmol/L 02/16/2025 3:48 PM EDT [facility] Chloride, Plasma 90(L) 97 - 107 mmol/L 02/16/2025 3:48 PM EDT [facility] CO2, Plasma 22 22 - 29 mmol/L 02/16/2025 3:48 PM EDT [facility] Anion Gap 20(H) 6 - 16 mmol/L 02/16/2025 3:48 PM EDT [facility] Total Calcium, Plasma 9.7 8.9 - 10.2 mg/dL 02/16/2025 3:48 PM EDT [facility] Total Protein 7.7 6.3 - 7.9 g/dL 02/16/2025 3:48 PM EDT [facility] Albumin, Plasma 4.6 3.5 - 5.2 g/dL 02/16/2025 3:48 PM EDT [facility] AST, Plasma 22 10 - 35 U/L 02/16/2025 3:48 PM EDT [facility] Comment:Hemolyzed, result ma y be falsely increased. ALT, Plasma 21 10 - 35 U/L 02/16/2025 3:48 PM EDT [facility] Alkaline Phosphatase, Plasma 70 46 - 142 U/L 02/16/2025 3:48 PM EDT [facility] Total Bilirubin, Plasma 0.3 0.2 - 1.1 mg/dL 02/16/2025 3:48 PM EDT [facility] eGFRcr 100.4 mL/min/1.7 3m*2 02/16/2025 3:48 PM EDT [facility] Comment:Reported eGFRcr in m L/min/1.73m2 is based the CKD-EPI 2020 equation that does not use a race coefficient. Blood Venous blood specimen / Unknown Venipuncture / Unknown 02/16/2025 3:07 PM EDT 02/16/2025 3:11 PM EDT us Kami Amin DO LAB BLOOD ORDERABLES Final Re sult [facility] [address] [place] [address] * (ABNORMAL) POCT glucose meter (02/16/2025 2:42 PM EDT) POCT Glucose 145(H) 74 - 99 mg/dL [...] Comment 02/16/2025 2:43 PM EDT [facility] Survey Statistician ID Naomi Moy 02/16/2025 2:43 PM EDT [facility] Device ID [id number] 02/16/2025 2:43 PM EDT [facility] Specimen Type POC Capillary 02/16/2025 2:43 PM EDT [facility] Blood Capillary blood specimen / Unknown 02/16/2025 2:42 PM EDT 02/16/2025 2:43 PM EDT us Generic Provider Poct LAB POINT OF CARE TEST DOCKED DEVICE UNSOLICITED RESULTS Final Result Performing Organization Address City/State/[facility] Co de Phone Number [facility] [address] [place] [id number] documented in this encounter Visit Diagnoses Diagnosis [...] not elsewhere classified Hyperglycemia Other abnormal glucose Brain mass Unspecified condition of brain documented in this encounter Admitting Diagnoses Diagnosis [...] Given 02/26/2025 11:25 AM EDT 1 packet bacitracin ointment As needed, Starting on Sun02/24/25 at 2324, Until Sun02/25/25 at 0003, Routine Given 02/24/2025 11:24 PM EDT 1 Application Other bisacodyl (Dulcolax) suppository 10 mg 10 mg, [...] 1:25 PM EDT 5 mg dexamethasone (Decadron) tablet 2 mg 2 [...] Last dose on Sun03/04/25 at 2100, Routine heparin (porcine) injection 7,500 Units 7,500 Units, [...] PM EDT 10 mg hydrALAZINE (Apresoline) injection 20 mg 20 mg, Intravenous, Every 1 hour PRN, Starting on Sun02/16/25 at 2136, Until Sun02/27/25 at 1624, Routine, high blood pressure, SBP > 140 Given 02/23/2025 5:1 4 AM EDT 20 mg Given 02/22/2025 8:57 PM EDT 20 mg Given 02/22/2025 4:33 PM EDT 20 mg labetalol (Normodyne,Trandate) injection 10 mg 10 mg, Intravenous, Every 1 hour PRN, Starting on Sun02/16/25 at 2136, Until Sun02/27/25 at 1624, Routine, high blood pressure, SBP > 140 labetalol (Normodyne,Trandate) injection 20 mg 20 mg, Intravenous, Every 1 hour PRN, Starting on Sun02/16/25 at 2136, Until Sun02/27/25 at 1624, Routine, high blood pressure, SBP > 140 levETIRAcetam (Keppra) tablet 1,500 mg 1,500 mg, Oral, 2 times daily, First dose (after last modification) on Sun02/26/25 at 0900, Until Discontinued, Routine Given 02/27/2025 8:39 AM EDT 1,500 mg Given 02/26/2025 8:37 PM EDT 1,500 mg Given 02/26/2025 9:48 AM EDT 1,500 mg lidocaine-EPINEPHrine (PF) (Xylocaine W/EPI) 1 %-[id number] injection As needed, Starting on Sun02/24/25 at 1825, Until Sun02/25/25 at 0003, Routine, Intraprocedure Given 02/24/2025 6:25 PM EDT 10 mL Sca lp lisinopril tablet 20 mg 20 mg, Oral, 2 times daily, First dose on Sun02/19/25 at 0900, Until Discontinued Given 02/27/2025 8:39 AM EDT 20 m g Given 02/26/2025 8:37 PM EDT 20 mg Given 02/26/2025 9:47 AM EDT 20 mg nebivolol (Bystolic) tablet 5 mg 5 [...] Given 02/25/2025 8:39 AM EDT 40 mg papaverine injection As needed, Starting on Sun02/24/25 at 2104, Until Sun02/25/25 at 0003, Routine, Intraprocedure Given 02/24/2025 9:04 PM EDT 120 mg polyethylene glycol (Miralax) packet 17 g 17 g, Oral, 2 times daily, First dose on Sun02/18/25 at 0900, Until Discontinued, Routine Given 02/27/2025 8:39 AM EDT 17 g Given 02/26/2025 8:37 PM EDT 17 g Given 02/25/2025 10:18 PM EDT 17 g senna-docusate (Maggy-Colace) 8.6-50 MG per tablet 2 [...] 10 mL, Intravenous, As needed, Starting on 02/16/25 at 2136, Until Sun02/27/25 at 1624, Routine, line care thrombin (recombinant) (Recothrom) topical solution As needed, Starting on Sun02/24/25 at 1809, Until Sun02/25/25 at 0003, Routine Given 02/24/2025 6:28 PM EDT 5,000 Units Given 02/24/2025 6:09 PM EDT 5,000 Units vancomycin (Vancocin) vial for injection As needed, Starting on Sun02/24/25 at 1809, Until Sun02/25/25 at 0003, Routine, Intraprocedure Given 02/24/2025 6:09 PM EDT 1 g documented in this encounter Active and Recently [...] RN)2349 (Given - Provider: Kathleen Linn, SKY) 0558 (Given - Provider: Kathleen Linn, RN)1159 (Given - Provider: Sherin Bynum, SKY) bacitracin (1g packet) ointment 1 packet 1 [...] Sherin Bynum RN)2217 (Given - Provider: Gian Taylor, SKY) 0947 (Given - Provider: Sherin Bynum RN)1646 [...] Milla Peck RN)0606 (Given - Provider: Gian Taylor RN)1211 (Given - Provider: Sherin Bynum RN)1751 (Given - Provider: Sherin Bynum RN) 0042 (Given - Provider: Gian Taylor, SKY)0607 (Given - Provider: Gian Taylor RN) dexamethasone (Decadron) tablet 2 mg(Linked Group 1) [...] Gian Taylor RN)0948 (Given - Provider: Sherin Bynum RN)1646 (Given [...] 02/26/25 at 0811, Routine, Imaging Protocol Orders 0811 (Given - Provider: Mare Thomas) levETIRAcetam (Keppra) tablet 1,000 mg (CANCELED) 1,000 mg, Oral, 2 times daily, First dose on Sun02/18/25 at 0900, Until Discontinued, Routine 0504 (MAR Unhold - Provider: Automatic Transfer Provider)0838 (Given - Provider: Sherin Bynum RN)2217 (Given - Provider: Gian Taylor RN) levETIRAcetam (Keppra) tablet 1,500 mg 1,500 mg, Oral, 2 times daily, First dose (after last modification) on Sun02/26/25 at 0900, Until Discontinued, Routine 0948 (Given - Provider: Sherin Bynum RN)2036 (Given - Provider: Kathleen Linn RN) 0839 (Given - Provider: Sherin Bynum RN) lisinopril tablet 20 mg 20 mg, Oral, 2 times daily, First dose on Sun02/19/25 at 0900, Until Discontinued 0504 ([facility] Unhold - Provider: Automatic Transfer Provider)0838 (Given - Provider: Sherin Bynum RN)2217 (Given - Provider: Gian Taylor RN) 0947 (Given - Provider: Sherin Bynum RN)2036 (Given - Provider: Kathleen Linn RN) 0839 (Given - Provider: Sherin Bynum RN) nebivolol (Bystolic) tablet 5 mg 5 mg, Oral, Daily, First dose on Sun02/19/25 at 0900, Until Discontinued, Routine 0504 ([facility] Unhold - Provider: Automatic Transfer Provider)0839 (Given - Provider: Sherin Bynum RN) 0918 (Given - Provider: Sherin Bynum RN) 0839 (Given - Provider: Sherin Bynum RN) NIFEdipine XL (Procardia XL) 24 hr tablet 30 mg 30 mg, Oral, Daily, First dose on Sun02/23/25 at 1345, Until Discontinued, Routine 0504 ([facility] Unhold - Provider: Automatic Transfer Provider)0839 (Given [...] refused)2217 (Given - Provider: Gian Taylor, SKY) 1018 (Not Given - Provider: Sherin Bynum RN - Reason: Hold for condition: must add comment - Comment: try stool softener first)2036 (Given - Provider: Kathleen Linn RN) 0839 (Given - Provider: Sherin Bynum RN) senna-docusate (Maggy-Colace) 8.6-50 MG per tablet 2 tablet 2 tablet, Oral, 2 times daily, First dose on Sun02/18/25 at 0900, Until Discontinued, Routine 0504 ([facility] Un[place] - Provider: Automatic Transfer Provider)0838 (Given - Provider: Sherin Bynum RN)221 (Given - Provider: Gian Taylor, SKY) 0947 (Given - Provider: Sherin Bynum RN)2036 (Not Given - Provider: Kathleen iLnn RN - Reason: Patient/family refused) 0839 (Given - Provider: Sherin Bynum RN) sertraline (Zoloft) tablet 50 mg 50 mg, Oral, Daily, First dose on Sun02/17/25 at 1615, Until Discontinued, Routine 0504 (NOV [place] - Provider: Automatic Transfer Provider)0839 (Given - Provider: Sherin Bynum RN) 0948 (Given - Provider: Sherin Bynum RN) 0839 (Given - Provider: Sherin Bynum RN) sodium chloride 0.9 % flush 10 mL(Linked Group 2) 10 mL, Intravenous, Every 12 hours, First dose on Sun02/16/25 at 2140, Until Discontinued, Routine 0504 (N[facility] [place] - Provider: Automatic Transfer Provider)0921 (Canceled Entry - Provider: Sherin Bynum RN)222 (Given - Provider: Gian Taylor, SKY) 101 (Canceled Entry - Provider: Sherin Bynum RN)203 (Given - Provider: Kathleen Linn RN) 0910 [...] at 1624, Routine, mild pain, headaches 0504 (MAR Un[place] - Provider: Automatic Transfer Provider) bisacodyl (Dulcolax) suppository 10 mg 10 mg, Rectal, Daily PRN, Starting on Sun02/20/25 at 1045, Until Sun02/27/25 at 1624, Routine, constipation 0504 (MAR [place] - Provider: Automatic Transfer Provider) cyclobenzaprine [...] high blood pressure, SBP > 140 0504 (MAR [place] - Provider: Automatic Transfer Provider) hydrALAZINE [...] high blood pressure, SBP > 140 0504 (MAR [place] - Provider: Automatic Transfer Provider) labetalol (Normodyne,Trandate) injection 10 mg(Linked Group 4) 10 mg, Intravenous, Every 1 hour PRN, Starting on Sun02/16/25 at 2136, Until Sun02/27/25 at 1624, Routine, high blood pressure, SBP > 140 0504 ([facility] [place] - Provider: Automatic Transfer Provider) labetalol (Normodyne,Trandate) injection 20 mg(Linked Group 4) 20 mg, Intravenous, Every 1 hour PRN, Starting on Sun02/16/25 at 2136, Until Sun02/27/25 at 1624, Routine, high blood pressure, SBP > 140 0504 ([facility] [place] - Provider: Automatic Transfer [...] (MAR Un[place] - Provider: Automatic Transfer Provider) sodium chloride 0.9 % flush 10 mL(Linked Group 2) 10 mL, Intravenous, As needed, Starting on Sun02/16/25 at 2136, Until Sun02/27/25 at 1624, Routine, line care 0504 ([facility] Unhold - Provider: Automatic Transfer Provider) Linked [...] documented as of this encounter Care 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
--- OUTSIDE RECORDS SUMMARY | 2025-03-09 13:42 | XMS_ITS | Encounter Summary ---
Author Organization [facility] Address [address] [place] [address] Care Team Providers Care Delineator Name Role Phone Caroline Shultz APRN Primary Care Provider +1- [phone] Reason for Referral * Radiation Therapy (Routine) - Pending Review Specialty Diagnoses / Procedures Referred By Contac t Referred To Contact Radiation Oncology Diagnoses Oligodendroglioma (CMS/HCC) Procedures Rad Onc Intent to Treat Miguel Perez MD [address] [address] Phone: tel: fax: [facility] [address] [place] [address] Phone: tel: fax: Referral ID Status Reason Start Date Expiration Date Visits Requested Visits Authorized [id number] Pending Review Perform Procedure 03/09/2025 09/08/2026 1 1 * Consultation (Routine) - Closed Specialty Diagnoses / Procedures Referred By Contac t Referred To Contact Radiation Oncology Diagnoses Brain mass Anaya Felton APRN [address] [address] Phone: tel: fax: [facility] [address] [place] [address] Phone: tel: fax: Referral ID Status Reason Start Date Expiration Date V isits Requested Visits Authorized [id number] Closed Specialty Services Required 02/25/2025 08/27/2026 1 1 Reason for Visit * Reason Comments Consult * Consultation (Routine) - Closed Specialty Diagnoses / Procedures Referred By Contac t Referred To Contact Radiation Oncology Diagnoses Brain mass Anaya Felton APRN 800 [facility] [address] [place] [address] Phone: tel: fax: [facility] 800 [facility] [place] [address] Phone: tel: fax: Referral ID Status Reason Start Date Expiration Date V isits Requested Visits Authorized [id number] Closed Specialty Services Required 02/25/2025 08/27/2026 1 1 Encounter Details Date Type Department Care Team (Latest Contact Info) Description 03/09/2025 1:42 PM EDT - 03/09/2025 11:59 PM EDT Hospital Encounter [facility] 800 [facility] [place] [address] Miguel Perez MD 800 [facility] [address] [place] [address] Oligodendroglioma (CMS/HCC) (Primary Dx) Discharge Disposition: Still a Patient Social History Tobacco Use Types Packs/Day Years [...] any time in the past 12 m [facility], were you homeless or living in a detention (including now)? No 09/23/2024 Humiliation, Afraid, Rape, [...] any time in the past 12 m [facility], were you homeless or living in a detention (including now)? No 02/19/2025 Utilities Answer Date [...] 2:45 PM EDT documented in this encounter Medications at Time of Discharge [...] needed for muscle spasms. 30 tablet 02/27/2025 fish oil ([place]-3) 500 MG capsule Take 2,400 mg by [...] a medical document. It is intended as yfun-qp-fhgy communication. Many sections may include medical language or jargon, abbreviations, and additional verbiage that are unfamiliar or confusing. In some ways it may come across as blunt, direct, or may be summarized in order to clearly and concisely communicate the most crucial information to product manager medical device. Medical documents are intended to carry relevant information, facts as evident, and the personal clinical opinion of the physician. 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 appearance is mostconsistent with primary brain neoplasm such as glioblastoma or other high-grade glioma. Microscopic Description IHC: [id number] (wild type) A3-5 ATRX positive (wild type) All controls show appropriate reactivity. All immunohistochemistry, in situ hybridization, and histochemical tests were developed by and are performed at the [facility], [address] [place] [address]. All tests reported here, except those addressing [...] A1. 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 Patient is 64 yo [...] Center 03/16/2025 9:30 AM Sanchez Zaldivar MD [facility] 03/17/2025 1:00 PM Miguel Perez MD [facility] PERI Benavides 03/23/2025 1:45 PM [facility] RN LAURIE Benavides 03/23/2025 2:00 PM Chente Sebastian MD [facility] Orders Placed This Encounter Procedures Ambulatory referral to Radiation Oncology Kemal Panda MD, PGY-2 Resident Physician, Radiation Oncology [facility] Pager: [phone] [1] Past Medical History: Diagnosis Date Brain [...] Disp: 18 tablet, Rfl: 0 fish oil ([place]-3) 500 MG capsule, Take 2,400 mg by [...] [facility] 800 [facility], [address] [place] [address] 03/23/2025 2:00 PM EDT Office Visit [facility] 800 [facility], [address] [place] [address] Chente Sebastian MD 800 [facility] [address] [place] [address] 07/06/2025 9:30 AM EDT [facility] Visit [facility] [address] [place] [address] Sanchez Zaldivar MD [address] [place] [address] Scheduled Orders Name Type Priority Associated Diagnoses [...] documented as of this encounter Care Teams Delineator Relationship Specialty Start Date End Date Caroline Shultz APRN [address] [place] [address] PCP - General 09/22/24 documented as of this encounter
--- OUTSIDE RECORDS SUMMARY | 2025-03-09 15:20 | XMS_ITS | Encounter Summary ---
Author Organization [facility] Address [address] [place] [address] Care Team Providers Care Optical Goods Drill Operator Name Role Phone Caroline Shultz APRN Primary Care Provider [phone]- [phone] Reason for Visit * Reason Comments New Patient * Consultation (Routine) - Closed Specialty Diagnoses / Procedures Referred By Contact Referred To Contact Medical Oncology / Hematology and Oncology Diagnoses Brain mass Anaya Felton APRN [address] [facility] [address] [place] [address] Phone: tel:[phone] fax:[phone] [facility] [address] [place] [address] Phone: tel: fax: Referral ID Status Reason Start Date Expiration Date V isits Requested Visits Authorized [id number] Closed Specialty Services Required 02/26/2025 08/28/2026 1 1 Encounter Details Date Type Department Care Team ([facility] Contact Info) Description 03/09/2025 3:20 PM EDT Office Visit Pav CC Head, Neck & Respiratory [address] [facility], [address]nd [place] [address] Chente Sebastian MD [address] [facility] [address] [place] [address] Glioblastoma multiforme of temporal lobe (CMS/HCC) (Primary Dx) Social History Tobacco Use [...] in the past 12 m [facility], were you homeless or living in a half-way (including now)? No 09/23/2024 Humiliation, Afraid, Rape, [...] in the past 12 m [facility], were you homeless or living in a half-way (including now)? 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 lady with history of expressive aphasia and was found to have a newly discovered left insular mass. She vocalizes that she was incorrectly diagnosed with a stroke earlier this year and delayed work up and care of her brain tumor. She then had a subtotal resection on 02/24/25 with left temporal craniotomy. 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 She has seen by radiation oncology, with plans for adjuvant chemoradiation with CT simulation March 17. At discharge she was having significant word-finding difficulty and intermittent aphasia. She states that this has significantly improved now. Today: she comes and is ready to initiate treatment. She is improved with her speech and is able toperform her ADLs. She denies having seizures, debilitating headaches, falls or vision problems. Past Medical, Surgical, Family and Social History Reviewed in this encounter by me personally Subjective Review of Systems: Rest of 14 point organ based review of system was conducted and pertinent negatives and positives are placed in the HPI. Objective Performance Status 80% Visit Vitals BP 104/68 (BP Location: Left arm, Patient Position: Sitting, BP Cuff Size: Large adult) Pulse 60 Temp 36.6 ??C (97.8 ??F) (Oral) Resp 16 EXAM Physical Exam Constitutional: Appearance: She is normal [...] and Affect: Mood normal. Behavior: Behavior normal. LABORATORIES AND STUDIES: reviewed by me personally Lab Results Component Value Date BUN 21 02/27/2025 CL 97 02/27/2025 NA 132 (L) 02/27/2025 K 4.2 02/27/2025 TP 6.8 02/23/2025 AST 23 02/23/2025 ALT 25 02/23/2025 @NEUTOPHILPCT@ Lab Results Component Value Date WBC 14.93 (H) 02/26/2025 HGB 12.3 02/26/2025 HCT 36.1 02/26/2025 MCV 83 02/26/2025 PLT 349 02/26/2025 Assessment/Plan Herminia Murrell is a 64 y.o. lady with history of expressive aphasia and was found to have a newly discovered left insular mass. She vocalizes that she was incorrectly diagnosed with a stroke earlier this year and delayed work up and care of her brain tumor. She then had a subtotal resection on 02/24/25 with left temporal craniotomy. 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 She has seen by radiation oncology, with plans for adjuvant chemoradiation with CT simulation March 17. At discharge she was having significant word-finding difficulty and intermittent aphasia. I discussed the diagnosis, prognosis, and treatment options of glioblastoma. We discussed the pathologic bases of diagnosis along with the molecular tests performed on her case. We also reviewed images prior to and following surgery. She also seen by our radiation oncology colleagues of Dr. Steiner. We discussed the standard of care of EORTC-NCIC regimen. She is a good candidate as she seems tounderstand this treatment and has a PS at 80. We also provided general info. regarding needed treatment and side effects of this therapy with radiation. Medications reviewed We also discussed the potential for depression, she is stable We provided Ms. Perez with a [employer] application and offered access to [employer] We also discussed Phys. Therapy, which she has orders for. We also recommended for her to remain engaged socially. We plan to have her come back in 3 wks. and she knows how to get hold of us if he has questions. MD CHAD LeeEY PAV CC HEAD, NECK & RESPIRATORY [address] [facility] [address] No referring provider defined for this encounter documented in this encounter Plan of Treatment Upcoming Encounters Date Type Department Care Team (Late st Contact Info) Description 03/23/2025 1:45 PM EDT Clinical Support Pav CC Head, Neck & Respiratory [address] [facility], [address]nd [place] [address] 03/23/2025 2:00 PM EDT Office Visit Pav CC Head, Neck & Respiratory [address] [facility], [address]nd [place] [address] Chente Sebastian MD [address] [facility] [address] [place] [address] 07/06/2025 9:30 AM EDT Office Visit [place] [facility] [address], [address]st [place] [address] Sanchez Zaldivar MD [address] [place] [address] documented as of this encounter Visit Diagnoses Diagnosis Glioblastoma multiforme of temporal lobe (CMS/HCC)- Primary documented in this encounter Additional Health Concerns Assessment Noted Time PHQ-9 Depression Total Score: 6 10/08/19 2:13 PM EST A fall risk assessment has been complete d for the patient 03/09/2025 3:55 PM EDT A Body Mass Index follow-up plan has been documented for the patient 02/27/2025 10:32 AM EDT documented as of this encounter Care Teams Optical Goods Drill Operator Relationship Specialty Start Date End Date Caroline Shultz APRN [address] [place] [address] PCP - General 09/22/24 documented as of this encounter
--- OUTSIDE RECORDS SUMMARY | 2025-03-16 09:30 | XMS_ITS | Encounter Summary ---
Author Organization Healthcare Address [address] [place] [address] Care Team Providers Care Supervisor [employer] Products Name Role Phone Carrington Caroline Adrian MURPHY Primary Care Provider +1- [phone] Encounter Details Date Type Department Care Team (Latest Contact Info) Description 03/16/2025 9:30 AM EDT Office Visit [place] [facility] [address], [address]st [place] [address] Sanchez Zaldivar MD [address] [place] [address] Oligodendroglioma (CMS/HCC) (Primary Dx) Social History Tobacco [...] were you homeless or living in a senior care (including now)? No 09/23/2024 Humiliation, Afraid, Rape, [...] were you homeless or living in a senior care (including now)? No 02/19/2025 Utilities Answer Date [...] Sign Reading Time Taken Comments Blood Pressure 106/71 03/16/2025 9:46 AM EDT Pulse 82 03/16/2025 9:46 AM EDT Temperature - - Respiratory Rate - - Oxygen Saturation 92% 03/16/2025 9:46 AM EDT Inhaled Oxygen Concentration - - Weight 114 kg (251 lb 12.3 oz) 03/16/2025 9:46 A M EDT Height 167.6 cm (5' 6 ) 03/16/2025 9:46 AM EDT Body Mass Index 40.64 03/16/2025 9:46 AM EDT documented in this encounter Miscellaneous Notes * Progress Notes - Ranjana Yu MD - 03/16/2025 9:30 AM EDT We had the pleasure of seeing your patient in our clinic today for continued Neurosurgical Oncologyevaluation. Chief Complaint: postop History Of Present Illness: Herminia Murrell is a 64 y.o. right handed female with history of HTN, T2DM, depression, GERD with history of expressive aphasia and was found to have a newly discovered left insular mass. Patient proceeded to the operating room on 02/24/25 and underwent left temporal craniotomy for tumor resection. Path shows oligodendroglioma (grade 3 WHO). Patient seen by radiation oncology, with plans for adjuvant chemoradiation with CT simulation March 17. At discharge she was having significant word-finding difficulty and intermittent aphasia. She states that this has significantly improved now. She remains on Keppra but denies any erasmo seizures or other neurologic symptoms. She denies any concerns relatedto her incision is well. Social History, Medications, and Allergies reviewed and noted below or in HPI Current Scheduled Medications[1] Current Continuous Medications[2] Current PRN Medications[3] Codeine Physical Exam GEN: well developed, no acute distress HEENT: normocephalic, atraumatic, no scleral icterus, oropharynx clear Neuro Exam GCS (EMV): 465 Awake, alert, oriented Follows commands appropriately CN II-XII intact Speech clear PERRL, EOMI KRAUSE symmetrically, no drift Incision well healed Imaging No new imaging Assessment and Plan Herminia Murrell is a 64 y.o. 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 She has been recovering well postoperatively with significant improvement in her word finding difficulty. Parisa removed. We will plan to see eugenie in clinic in 3mo for clinical follow up. Imaging will be through Dr. Sebastian's clinic. She will start radiation treatment with Dr. Perez and Chemotherapy with Dr. Sebastian. We mentioned treatment with Optune as a possible option, although that will be at Dr. Sebastian discretion. We discussed overall health related aspects including good dietary habits, reducing processed and sugary foods, getting Vit D levels checked and supplement if low. Ranjana Yu MD Resident Physician, PGY-2 Department of Neurosurgery [facility] -- Sanchez Zaldivar MD, FAANS Nibbler Operator Epilepsy Surgery, Neuro-Oncology & Skull Base, Pediatric Neurosurgery Director, Adult & Pediatric Epilepsy Surgery, Comprehensive Epilepsy Program Dept. of Neurological Surgery, [facility] ([facility] [place] [address] - - Email: [email or web address] [1] [2] [3] Cosigned by Sanchez Zaldivar MD at 03/16/2025 1:01 PM EDT Associated attestation - Sanchez Zaldivar MD - 03/16/2025 1:01 PM EDT I saw and evaluated the patient with the resident/fellow. I discussed the case with the resident/fellow and agree with the findings and plan as documented. documented in this encounter Plan of Treatment Upcoming Encounters Date Type Department Care Team (Late st Contact Info) Description 03/23/2025 1:45 PM EDT Clinical Support Pav CC Head, Neck & Respiratory [address] [facility], 2nd [place] [address] 03/23/2025 2:00 PM EDT Office Visit Pav CC Head, Neck & Respiratory [address] [facility], 2nd [place] [address] Chente Sebastian MD [address] [place] [address] [address] [place] [address] 07/06/2025 9:30 AM EDT Office Visit [place] [facility] [address], [address]st [place] [address] Sanchez Zaldivar MD [address] [place] [address] documented as of this encounter Visit Diagnoses Diagnosis Oligodendroglioma (CMS/HCC)- Primary Malignant neoplasm of brain, unspecified site documented in this encounter Additional Health Concerns Assessment Noted Time PHQ-9 Depression Total Score: 6 10/08/19 25 2:13 PM EST A fall risk assessment has been complete d for the patient 03/16/2025 9:50 AM EDT A Body Mass Index follow-up plan has been documented for the patient 03/16/2025 1:02 PM EDT documented as of this encounter Care Teams Supervisor [employer] Relationship Specialty Start Date End Date Caroline Shultz APRN [address] [place] [address] PCP - General 09/22/24 documented as of this encounter
--- OUTSIDE RECORDS SUMMARY | 2025-03-17 13:00 | XMS_ITS | Encounter Summary ---
Author Organization Healthcare Address [address] [place] [address] Care Team Providers Care Physical Trainer Name Role Phone Carrington Caroline Adrian MURPHY Primary Care Provider +1- [phone] Encounter Details Date Type Department Care Team (Late st Contact Info) Description 03/17/2025 1:00 PM EDT Hospital Encounter [facility] [id number] [place] [address] Miguel Perez MD [address] [place] [address] Social History Tobacco Use Types Packs/Day Years [...] [facility] Head[facility] Neck & Respiratory 800 [facility], 2nd [place] [address] 03/23/2025 2:00 PM EDT Office Visit Pav [facility] Head[facility] Neck & Respiratory 800 [facility], 2nd [place] [address] Chente Sebastian MD [address] [place] [address] 07/06/2025 9:30 AM EDT Office Visit [place] [facility] [address], 1st [place] [address] Sanchez Zaldivar MD [address] [facility] [address] [place] [address] documented as of this encounter [...] documented as of this encounter Care Teams Physical Trainer Relationship Specialty Start Date End Date Caroline Shultz APRN [address] [place] [address] PCP - General 09/22/24 documented as of this encounter
[2025-03-19] VITALS (11 sets, daily range): BP systolic 115–127; BP diastolic 46–68; PULSE 68–76; RESP 12–22; TEMP 36.7–37.2; O2SAT 91–98; BMI 41.1
--- NOTE | 2025-03-19 11:30 | PC.NURSE ---
DR GONZALEZ AT BEDSIDE
--- NOTE | 2025-03-19 11:32 | ECG_ITS ---
APPROVED REPORT Exam: Resting ECG HR:75 bpm ECG Measurements Heart Rate 75 AXES UT 185 P 50 QRSd 84 QRS 77 QT 380 T 25 QTc 410 Conclusion Sinus rhythm Normal intervals No ST elevation Electronically signed by : Kamari Helms, 03/19/2025 16:32:10
--- NOTE | 2025-03-19 11:39 | CT_ITS ---
FINAL REPORT TECHNIQUE: NASCET technique utilized for stenosis evaluation. CLINICAL HISTORY: Transient right facial droop, word finding diff stroke protocol COMPARISON: None FINDINGS: Note is made of filling defects in the left main pulmonary artery with smaller emboli in upper pulmonary artery branches. RIGHT CAROTID: No significant stenosis is seen of the cervical common or internal carotid artery. Minimal bilateral calcifications are noted in the right external carotid artery. LEFT CAROTID: No significant stenosis seen of the cervical common or internal carotid artery. Minimal bilateral calcifications are noted in the external carotid arteries bilaterally. VERTEBRALS: The vertebrals are patent. The left vertebral artery is dominant. No significant stenosis is present. IMPRESSION: Filling defects are present in the left main pulmonary artery with smaller emboli in the upper pulmonary artery branches. These results were conveyed to the emergency room physician 03/19/2025 at 12:15 PM. Minimal bilateral calcifications are noted in the external carotid arteries bilaterally without significant narrowing. Reviewed, Interpreted and Dictated by Horace Jose MD Transcribed by Donna Fox Authenticated and [facility]
--- NOTE | 2025-03-19 11:39 | CT_ITS ---
FINAL REPORT TECHNIQUE: Axial CT images were performed through the head. Coronal and sagittal reformatted images were submitted. This study was performed with techniques to keep radiation doses as low as reasonably achievable (ALARA). Individualized dose reduction techniques using automated exposure control or adjustment of mA and/or kV according to the patient's size were employed. CLINICAL HISTORY: Transient right facial droop, word finding diff r/o stroke COMPARISON: Prior MRI of the head dated 09/09/2024 FINDINGS: CT HEAD: In the interval since the prior MRI examination of August 2024 the patient has undergone a left temporal craniotomy. There is an ovoid low-attenuation focus in the left sylvian fissure, with central air attenuation measuring 1.5 x 1 cm in size, that is due to recent surgery. By history the patient had an oligodendroglioma resected several weeks ago. The ventricles are normal in size. There is no evidence of hemorrhage. There is a small subdural fluid collection under the craniotomy that measures 4 mm in depth. IMPRESSION: Interval craniotomy since the prior MRI of August 2024. Ovoid low-attenuation focus in the left sylvian fissure with central air attenuation foci measuring 1.5 x 1 cm in size, that is apparently due to recent surgery. Small subdural fluid collection under the craniotomy that measures 4 mm in depth. Reviewed, Interpreted and Dictated by Horace Jose MD Transcribed by Donna Fox Authenticated and [facility]
--- NOTE | 2025-03-19 11:39 | CT_ITS ---
FINAL REPORT TECHNIQUE: thin section axial CT with and without IV contrast supplemented with multiplanar 3-D reconstruction of the head. This study was performed with techniques to keep radiation doses as low as reasonably achievable, (ALARA)individualized dose reduction techniques using automated exposure control or adjustment of mA and/or kV according to the patient's size were employed. CLINICAL HISTORY: Transient right facial droop, word finding diff r/o stroke COMPARISON: None FINDINGS: CTA: The cranial circulation is unremarkable. There is no significant stenosis, aneurysm or occlusion. The patient has undergone recent left temporal craniotomy for resection of an oligodendroglioma. There is ill-defined enhancement of the periphery of the surgical bed, that likely represents postoperative change. Note is also made of filling defects in the left main pulmonary artery, seen best on images 1 through 6, and smaller emboli in upper pulmonary artery branches. IMPRESSION: Ill-defined enhancement at the periphery of the left temporal surgical bed, likely postoperative change. Note is also made of filling defects in the left main pulmonary artery and smaller emboli are present in upper pulmonary artery branches. These findings were conveyed to the emergency room physician 03/19/2025 at 12:15 PM. Reviewed, Interpreted and Dictated by Horace Jose MD Transcribed by Donna Fox Authenticated and . [facility]
--- NOTE | 2025-03-19 11:39 | PC.NURSE ---
RADIOLOGY NOTIFIED OF STROKE PROTOCOL FOR CT SCANS
--- NOTE | 2025-03-19 11:43 | PC.NURSE ---
PT TO CT
[2025-03-19 11:46] LABS: Hematocrit 34.0 % (37.0-47.0); Hemoglobin 11.3 g/dL (12.2-16.2); Immature Granulocytes % 0.5 %; Mean Corpuscular HGB Conc 33.2 g/dL (31.8-35.4); Mean Corpuscular Hemoglobin 28.3 pg (27.0-31.2); Mean Corpuscular Volume 85.0 fl (81-99); Nucleated Red Blood Cells % 0 %; Platelet Count 280 K/mm3 (142-424); Red Blood Count 4.00 M/mm3 (4.20-5.40); Red Cell Distribution Width-SD 40.3 fL; White Blood Count 8.0 K/mm3 (4.8-10.8)
--- OUTSIDE RECORDS SUMMARY | 2025-03-19 11:55 | XMS_ITS | Encounter Summary ---
Author Organization Healthcare Address [address] [place] [address] Care Team Providers Care Network Relay Tester Name Role Phone Carrington Caroline Campbell APRN Primary Care Provider +1- [phone] Encounter Details Date Type Department Care Team [...] any time in the past 12 m [facility], were you homeless or living in a fpc (including now)? No 09/23/2024 Humiliation, Afraid, Rape, [...] any time in the past 12 m [facility], were you homeless or living in a fpc (including now)? No 02/19/2025 Utilities Answer Date [...] CC Head, Neck & Respiratory 800 [facility], [address]nd [place] [address] 03/23/2025 2:00 PM EDT Office Visit Pav [facility] Head[facility] Neck & Respiratory 800 [facility], [address]nd [place] [address] Chente Sebastian MD 800 [facility] [address] [place] [address] 07/06/2025 9:30 AM EDT Office Visit [place] [facility] [address], 1st [place] [address] Sanchez Zaldivar MD [address] [place] [address] documented as of this encounter [...] documented as of this encounter Care Teams Network Relay Tester Relationship Specialty Start Date End Date Caroline Shultz APRN [address] [place] [address] PCP - General 09/22/24 documented as of this encounter
[2025-03-19 11:56] LABS: Activated Partial Thrombo Time 24.9 seconds (22.8-30.6)
--- OUTSIDE RECORDS SUMMARY | 2025-03-19 11:56 | XMS_ITS | Encounter Summary ---
Author Organization Healthcare Address [address] [place] [address] Care Team Providers Care Community Health Agent Name Role Phone Carrington Caroline Campbell APRN Primary Care Provider +1- [phone] Encounter Details Date Type Department Care Team [...] any time in the past 12 m [facility], were you homeless or living [...] any time in the past 12 m [facility], were you homeless or living [...] Pav CC Head, Neck & Respiratory 800 [facility], [address] [place] [address] 03/23/2025 2:00 PM EDT Office Visit Pav [facility] Head, Neck & Respiratory 800 [facility], [address] [place] [address] Chente Sebastian MD 800 [facility] [address] [place] [address] 07/06/2025 9:30 AM EDT Office Visit [place] [facility] [address], [address] [place] [address] Sanchez Zaldivar MD [address] [place] [address] documented as of this encounter [...] documented as of this encounter Care Teams Community Health Agent Relationship Specialty Start Date End Date Caroline Shultz APRN [address] [place] [address] PCP - General 09/22/24 documented as of this encounter
--- OUTSIDE RECORDS SUMMARY | 2025-03-19 11:56 | XMS_ITS | Encounter Summary ---
Author Organization Healthcare Address [address] [place] [address] Care Team Providers Care Marine Diver Name Role Phone Carrington Caroline Campbell APRN Primary Care Provider +1- [phone] Encounter Details Date Type Department Care Team [...] any time in the past 12 m [facility], were you homeless or living in a correction (including now)? No 09/23/2024 Humiliation, Afraid, Rape, [...] any time in the past 12 m [facility], were you homeless or living in a correction (including now)? No 02/19/2025 Utilities Answer Date [...] Pav CC Head, Neck & Respiratory 800 [facility], [address]nd [place] [address] 03/23/2025 2:00 PM EDT Office Visit Pav CC Head, Neck & Respiratory 800 [facility], [address] [place] [address] Chente Sebastian MD 800 [facility] [address] [place] [address] 07/06/2025 9:30 AM EDT Office Visit [place] [facility] [address], 1st [place] [address] Sanchez Zaldivar MD [address] [place] [address] documented as of this encounter [...] documented as of this encounter Care Teams Marine Diver Relationship Specialty Start Date End Date Caroline Shultz APRN [address] [place] [address] PCP - General 09/22/24 documented as of this encounter
--- OUTSIDE RECORDS SUMMARY | 2025-03-19 11:56 | XMS_ITS | Encounter Summary ---
Author Organization Healthcare Address [address] [place] [address] Care Team Providers Care Station Usher Name Role Phone Carrington Caroline Campbell APRN Primary Care Provider +1- [phone] Encounter Details Date Type Department Care Team [...] Pav CC Head, Neck & Respiratory 800 [facility], [address]nd [place] [address] 03/23/2025 2:00 PM EDT Office Visit Pav CC Head, Neck & Respiratory [address] [facility], [address]nd [place] [address] Chente Sebastian MD [address] [facility] [address] [place] [address] 07/06/2025 9:30 AM EDT Office Visit [place] [facility] [address], 1[address] [place] [address] Sanchez Zaldivar MD [address] [place] [address] documented as of this encounter [...] documented as of this encounter Care Teams Station Usher Relationship Specialty Start Date End Date Caroline Shultz APRN [address] [place] [address] PCP - General 09/22/24 documented as of this encounter
--- OUTSIDE RECORDS SUMMARY | 2025-03-19 11:56 | XMS_ITS | Encounter Summary ---
Author Organization Healthcare Address [address] [place] [address] Care Team Providers Care Athletic Scout Name Role Phone Carrington Caroline Campbell APRN Primary Care Provider +1- [phone] Encounter Details Date Type Department Care Team [...] any time in the past 12 m [facility], were you homeless or [...] any time in the past 12 m [facility], were you homeless or [...] Pav [facility] Head[facility] Neck & Respiratory 800 [facility], [address]nd [place] [address] 03/23/2025 2:00 PM EDT Office Visit Pav CC Head, Neck & Respiratory [address] [facility], [address]nd [place] [address] Chente Sebastian MD 800 [facility] [address] [place] [address] 07/06/2025 9:30 AM EDT Office Visit [place] [facility] [address], [address] [place] [address] Sanchez Zaldivar MD [address] [place] [address] documented as of this encounter [...] documented as of this encounter Care Teams Athletic Scout Relationship Specialty Start Date End Date Caroline Shultz APRN [address] [place] [address] PCP - General 09/22/24 documented as of this encounter
[2025-03-19 11:57] LABS: Alanine Aminotransferase 44 U/L (12-78); Albumin Level 4.0 g/dl (3.5-5.0); Albumin/Globulin Ratio 1.4 (1.1-1.8); Alkaline Phosphatase 184 U/L (38-126); Anion Gap 15.2 mEq/L (5-15); Aspartate Amino Transferase 31 U/L (14-36); Bilirubin,Total 0.5 mg/dl (0.2-1.3); Blood Urea Nitrogen 18 mg/dl (7-17); Calcium 9.4 mg/dl (8.4-10.2); Carbon Dioxide 27 mmol/L (22.0-30.0); Chloride 99 mmol/L (98-107); Creatinine Clearance Estimated 101 mL/min (50-200); Creatinine,Serum 0.60 mg/dl (0.52-1.04); Estimated Glomerular Filt Rate 100 ml/min (>60); GFR (African American) 121 ML/MIN (>60); Globulin 2.9 g/dL (1.3-3.2); Glucose 119 mg/dl (74-100); Potassium 4.2 mmoL/L (3.5-5.1); Sodium 137 mmol/L (136-145); Total Protein,Serum 6.9 g/dl (6.3-8.2)
--- OUTSIDE RECORDS SUMMARY | 2025-03-19 11:57 | XMS_ITS | Encounter Summary ---
Author Organization Healthcare Address [address] [place] [address] Care Team Providers Care Emerging Technologies Director Name Role Phone Carrington Caroline Adrian MURPHY Primary Care Provider +1- [phone] Encounter Details Date Type Department Care Team ([facility] st Contact Info) Description 03/03/2025 Orders Only Pav CC Head, Neck & Respiratory 800 [facility], 2nd [place] [address] Chente Sebastian MD 800 [facility] [address] [place] [address] Glioma of brain (CMS/HCC) (Primary Dx) Social [...] any time in the past 12 m [facility], were you homeless or living in a [...] any time in the past 12 m [facility], were you homeless or living in a [...] & Respiratory [address]nd [place] [address] 03/23/2025 2:00 PM EDT Office Visit Pav CC Head, Neck & Respiratory [address] 2nd [place] [address] Chente Sebastian MD [address] [facility] [address] [place] [address] 07/06/2025 9:30 AM EDT Office Visit [place] [facility] [address], 1st [place] [address] Sanchez Zaldivar MD [address] [place] [address] documented as of this encounter Procedures Procedure [...] Exome Low 3% 03/13/2025 1:58 PM EDT [facility] LUIS ALFREDO Microsatellite Instability - Exome Stable 03/13/2025 1:58 PM EDT [facility] CARIS Tumor Mutational [place] - Exome Low 3 per Mb 03/13/2025 1:58 PM EDT [facility] CARIS Her2/Davian Negative 03/13/2025 1:58 PM EDT [facility] LUIS ALFREDO HLA-A - Exome A*01:01,A*02: 01 03/13/2025 1:58 PM EDT [facility] LUIS ALFREDO HLA-B - Exome B*07:02,B*57: 01 03/13/2025 1:58 PM EDT [facility] LUIS ALFREDO HLA-C - Exome C*06:02,C*07: 02 03/13/2025 1:58 PM EDT [facility] LUIS ALFREDO MGMT-Me - Pyro SEQ Methylated 03/13/2025 1:58 PM EDT [facility] Tissue Non-blood Collection / Unknown 02/24/2025 9:04 PM EDT 03/03/2025 12:59 PM EDT Narrative This result has genomic variants that were not included in this document. us Chente Sebastian MD LAB MOL DX NO SOURCE Final Res ult [facility] [address] [address], [place] [phone] documented in this encounter Visit Diagnoses Diagnosis [...] documented as of this encounter Care Teams Emerging Technologies Director Relationship Specialty Start Date End Date Caroline Shultz APRN [address] [place] [address] PCP - General 09/22/24 documented as of this encounter
--- OUTSIDE RECORDS SUMMARY | 2025-03-19 11:57 | XMS_ITS | Encounter Summary ---
Author Organization [facility] Address [address] [place] [address] Care Team Providers Care Golf Professional Name Role Phone Caroline Shultz APRN Primary Care Provider +1- [phone] Reason for Referral * Home Health (Routine) - Authorized Specialty Diagnoses / Procedures Referred By Contac t Referred To Contact Home Health Services / Neurosurgery Diagnoses Benign neoplasm of brain, unspecified brain region (CMS/HCC) Sanchez Zaldivar MD [address] [address] Phone: tel: fax: Referral ID Status Reason Start Date Expiration Date Visits Requested Visits Authorized [id number] Authorized Specialty Services Required 03/02/2025 09/01/2026 [id number] Encounter Details Date Type Department Care Team (Late st Contact Info) Description 03/02/2025 Telephone [place] [facility] [address], [address] [place] [address] Sanchez Zaldivar MD [id number] [place] [address] Social History Tobacco Use Types [...] any time in the past 12 m [facility], were you homeless or living [...] any time in the past 12 m [facility], were you homeless or living [...] home health PT/OT order, they live in [place]. Can you reach out to [facility] in [place] and see if they will provide service to the patient?Their number is [phone]. I called but got the answering service and she didn't know the answer. * Telephone Encounter - Suki Pal - 03/02/2025 2:27 PM EDT Patient Phone Message Reason for Call: Patient daughter calling requesting PT order be sent to [facility] and also asking about a possible referral to Home Health somewhere local pt has a lot of weakness on right side pt is dragging leg and very unsteady/ major fall risk please call to discuss options for that as well as speech issues and possible ST order to [facility] as well. Best contact number and optimal time of day to reach caller: [phone] Note: Please do not reply to this message. Follow-up communication and further actions as a result of this message need to be communicated with the patient directly, if the patient is not active onMyChart. If the patient is active on MyChart, they will receive notification of the communication/outcome via [employer]. documented in this encounter Plan of Treatment Upcoming Encounters Date Type Department Care Team (Late st Contact Info) Description 03/23/2025 1:45 PM EDT Clinical Support Pav [facility] Head, Neck & Respiratory 800 [facility], 2nd [place] [address] 03/23/2025 2:00 PM EDT Office Visit Pav CC Head, Neck & Respiratory [address] [facility], 2nd [place] [address] Chente Sebastian MD [address] [facility] [address] [place] [address] 07/06/2025 9:30 AM EDT Office Visit [place] [facility] [address], [address] [place] [address] Sanchez Zaldivar MD [address] [place] [address] Scheduled Referrals Name Type Priority Associated Diagnoses Order Schedule Ambulatory referral to [facility] Health Outpatient Referral Routine Benign neoplasm of brain, [...] documented as of this encounter Care Teams Golf Professional Relationship Specialty Start Date End Date Caroline Shultz APRN [address] [place] [address] PCP - General 09/22/24 documented as of this encounter
--- OUTSIDE RECORDS SUMMARY | 2025-03-19 11:57 | XMS_ITS | Encounter Summary ---
Author Organization Healthcare Address [address] [place] [address] Care Team Providers Care Crystal Finisher Name Role Phone Carrington Caroline Campbell APRN Primary Care Provider +1- [phone] Encounter Details Date Type Department Care Team [...] any time in the past 12 m [facility], were you homeless or living in a usp (including now)? No 09/23/2024 Utilities Answer Date [...] [facility] [address] [facility], 2nd [place] [phone] 03/23/2025 2:00 PM EDT Office Visit [facility] [address] [facility], 2nd [place] [address] Chente Sebastian MD [address] [facility] [address] [place] [address] 07/06/2025 9:30 AM EDT Office Visit [place] [facility] [address], [address]st [place] [address] Sanchez Zaldivar MD [address] [place] [address] documented as of this encounter Visit Diagnoses [...] documented as of this encounter Care Teams Crystal Finisher Relationship Specialty Start Date End Date Caroline Shultz APRN [address] [place] [address] PCP - General 09/22/24 documented as of this encounter
--- OUTSIDE RECORDS SUMMARY | 2025-03-19 11:57 | XMS_ITS | Encounter Summary ---
Author Organization Healthcare Address [address] [place] [address] Care Team Providers Care Plaster Machine Operator Name Role Phone Caroline Shultz APRN Primary Care Provider +1- [phone] Encounter Details Date Type Department Care Team (Late st Contact Info) Description 01/27/2025 Orders Only [place] [facility] [address], [address] [place] [address] Bridget Lion, PA [address] [place] [address] Social History Tobacco Use Types [...] time in the past 12 m [facility], were you homeless or living in a [place] [facility] (including now)? No 09/23/2024 Utilities Answer Date [...] Upcoming Encounters Date Type Department Care Team ([facility] st Contact Info) Description 03/23/2025 1:45 PM EDT Clinical Support [facility] [address] [facility], 2nd [place] [address] 03/23/2025 2:00 PM EDT Office Visit [facility] [address] [facility], 2nd [place] [address] Chente Sebastian MD [address] [facility] Liyah Conde [facility] [address] [place] [address] 07/06/2025 9:30 AM EDT Office Visit [place] [facility] [address], [address] [place] [address] Sanchez Zaldivar MD [address] [place] [address] documented as of this encounter [...] documented as of this encounter Care Teams Plaster Machine Operator Relationship Specialty Start Date End Date Caroline Shultz APRN [address] [place] [address] PCP - General 09/22/24 documented as of this encounter
--- OUTSIDE RECORDS SUMMARY | 2025-03-19 11:57 | XMS_ITS | Encounter Summary ---
Author Organization Healthcare Address [address] [place] [address] Care Team Providers Care Spinning Mule Operator Name Role Phone Carrington Caroline Adrian MURPHY Primary Care Provider +1- [phone] Encounter Details Date Type Department Care Team ([facility] st Contact Info) Description 03/19/2025 Orders Only [facility] [address] [facility], 2nd [place] [address] Chente Sebastian MD [address] [facility] [address] [place] [address] Glioblastoma multiforme (CMS/HCC) (Primary Dx) Social History Tobacco Use [...] time in the past 12 m [facility], were you homeless or living in a alf (including now)? No 09/23/2024 Humiliation, Afraid, Rape, [...] time in the past 12 m [facility], were you homeless or living in a alf (including now)? No 02/19/2025 Utilities Answer Date [...] & Respiratory [address] , [address]nd [place] [address] 03/23/2025 2:00 PM EDT Office Visit [facility] [address] , [address]nd [place] [address] Chente Sebastian MD [address] [place] [address] 07/06/2025 9:30 AM EDT Office Visit [place] [facility] [address], [address] [place] [address] Sanchez Zaldivar MD [address] [place] [address] Scheduled Orders Name Type Priority Associated Diagnoses Orde r Schedule CBC and differential Lab Routine Glioblastoma multiforme (CMS/HCC) Expected: 03/19/2025, Expires: 03/19/2026 Comprehensive metabolic panel Lab Routine Glioblastoma multiforme (CMS/HCC) Expected: 03/19/2025, Expires: 03/19/2026 documented as of this encounter Visit Diagnoses Diagnosis Glioblastoma multiforme (CMS/HCC)- Primary Malignant neoplasm of brain, unspecified [...] documented as of this encounter Care Teams Spinning Mule Operator Relationship Specialty Start Date End Date Caroline Shultz APRN [address] [place] [address] PCP - General 09/22/24 documented as of this encounter
--- OUTSIDE RECORDS SUMMARY | 2025-03-19 11:57 | XMS_ITS | Encounter Summary ---
Author Organization Healthcare Address [address] [place] [address] Care Team Providers Care Bacon De Rinder Name Role Phone Carrington Caroline Campbell APRN Primary Care Provider +1- [phone] Encounter Details Date Type Department Care Team ([facility] st Contact Info) Description 03/19/2025 Clinical Support [facility] [address] [facility], 2nd [place] [phone] Rickie Wagner, PharmD [address] [facility] [address] [place] [address] Glioblastoma multiforme (CMS/HCC) (Primary Dx) Social History [...] any time in the past 12 m [facility], were you homeless or living in a snf (including now)? No 09/23/2024 Humiliation, Afraid, Rape, [...] any time in the past 12 m [facility], were you homeless or living in a snf (including now)? No 02/19/2025 Utilities Answer Date [...] [facility] [address] [facility], 2nd [place] [address] 03/23/2025 2:00 PM EDT Office Visit [facility] [address] [facility], 2nd [place] [address] Chente Sebastian MD [address] [place] [address] 07/06/2025 9:30 AM EDT Office Visit [place] [facility] [address], [address] [place] [address] Sanchez Zaldivar MD [address] [place] [address] documented as of this encounter [...] documented as of this encounter Care Teams Bacon De Rinder Relationship Specialty Start Date End Date Caroline Shultz APRN [address] [place] [address] PCP - General 09/22/24 documented as of this encounter
--- OUTSIDE RECORDS SUMMARY | 2025-03-19 11:57 | XMS_ITS | Encounter Summary ---
Author Organization Healthcare Address [address] [place] [address] Care Team Providers Care Slag Skimmer Name Role Phone Caroline Shultz APRN Primary Care Provider +1- [phone] Encounter Details Date Type Department Care Team ([facility] Contact Info) Description 03/03/2025 Telephone [facility] [address] [facility], [address]nd [place] [address] Chente Sebastian MD [address] [facility] [address] [place] [address] Social History Tobacco Use Types Packs/Day Years [...] time in the past 12 m [facility], were you homeless or living in [...] time in the past 12 m [facility], were you homeless or living in [...] [facility] [address] [facility], 2nd [place] [address] 03/23/2025 2:00 PM EDT Office Visit [facility] [address] [facility], [address]nd [place] [address] Chente Sebastian MD [address] [facility] [address] [place] [address] 07/06/2025 9:30 AM EDT Office Visit [place] [facility] [address], [address] [place] [address] Sanchez Zaldivar MD [address] [facility] [address] [place] [address] documented as of this encounter [...] documented as of this encounter Care Teams Slag Skimmer Relationship Specialty Start Date End Date Caroline Shultz APRN [address] [place] [address] PCP - General 09/22/24 documented as of this encounter
[2025-03-19 11:58] LABS: INR 1.01 (0.9-1.1); Prothrombin Time 11.2 seconds (10.1-12.5)
--- OUTSIDE RECORDS SUMMARY | 2025-03-19 11:58 | XMS_ITS | Encounter Summary ---
Author Organization Healthcare Address [address] [place] [address] Care Team Providers Care Harvest Worker Fruit Name Role Phone Carrington Caroline Campbell APRN Primary Care Provider +1- [phone] Encounter Details Date Type Department Care Team [...] time in the past 12 m [facility], were you homeless or living in a [...] [address] [facility], [address]nd [place] [address] 03/23/2025 2:00 PM EDT Office Visit [facility] [address] [place] [address] Chente Sebastian MD [address] [place] [address] 07/06/2025 9:30 AM EDT Office Visit [place] [facility] [address], [address] [place] [address] Sanchez Zaldivar MD [address] [place] [address] documented as of this encounter [...] documented as of this encounter Care Teams Harvest Worker Fruit Relationship Specialty Start Date End Date Caroline Shultz APRN [address] [place] [address] PCP - General 09/22/24 documented as of this encounter
--- OUTSIDE RECORDS SUMMARY | 2025-03-19 11:58 | XMS_ITS | Encounter Summary ---
Author Organization Healthcare Address [address] [place] [address] Care Team Providers Care Dry Wall Finisher Name Role Phone Carrington Caroline Campbell APRN Primary Care Provider +1- [phone] Encounter Details Date Type Department Care Team [...] any time in the past 12 m [facility], were you homeless or living in [...] any time in the past 12 m [facility], were you homeless or living in [...] [facility] [address] [facility], [address] [place] [address] 03/23/2025 2:00 PM EDT Office Visit [facility] [address] [facility], [address] [place] [address] Chente Sebastian MD [address] [facility] [address] [place] [address] 07/06/2025 9:30 AM EDT Office Visit [place] [facility] [address], [address] [place] [address] Sanchez Zaldivar MD [address] [place] [address] documented as of this encounter [...] documented as of this encounter Care Teams Dry Wall Finisher Relationship Specialty Start Date End Date Caroline Shultz APRN [address] [place] [address] PCP - General 09/22/24 documented as of this encounter
--- OUTSIDE RECORDS SUMMARY | 2025-03-19 11:58 | XMS_ITS | Encounter Summary ---
Author Organization Healthcare Address [address] [place] [address] Care Team Providers Care Senior Lead Software Engineer Name Role Phone Carrington Caroline Campbell APRN Primary Care Provider +1- [phone] Encounter Details Date Type Department Care Team (Latest Contact Info) Description 03/17/2025 Travel Social History Tobacco Use Types Packs/Day [...] any time in the past 12 m [facility], were you homeless or living in [...] any time in the past 12 m [facility], were you homeless or living in [...] [facility] [address] [facility], [address] [place] [address] 03/23/2025 2:00 PM EDT Office Visit [facility] [address] [facility], [address] [place] [address] Chente Sebastian MD [address] [facility] [address] [place] [address] 07/06/2025 9:30 AM EDT Office Visit [place] [facility] [address], [address] [place] [address] Sanchez Zaldivar MD [address] [place] [address] documented as of this encounter [...] documented as of this encounter Care Teams Senior Lead Software Engineer Relationship Specialty Start Date End Date Caroline Shultz APRN [address] [place] [address] PCP - General 09/22/24 documented as of this encounter
--- OUTSIDE RECORDS SUMMARY | 2025-03-19 11:58 | XMS_ITS | Encounter Summary ---
Author Organization Healthcare Address [address] [place] [address] Care Team Providers Care Wax Ball Knock Out Worker Name Role Phone Carrington Caroline Campbell APRN Primary Care Provider +1- [phone] Encounter Details Date Type Department Care Team [...] any time in the past 12 m [facility], were you homeless or living in a correction (including now)? No 09/23/2024 Utilities Answer Date [...] [facility] [address] [facility], [address]nd [place] [address] 03/23/2025 2:00 PM EDT Office Visit [facility] [address] [facility], [address]nd [place] [address] Chente Sebastian MD [address] [facility] [address] [place] [address] 07/06/2025 9:30 AM EDT Office Visit [place] [facility] [address], [address] [place] [address] Sanchez Zaldivar MD [address] [place] [address] documented as of this encounter Visit Diagnoses [...] documented as of this encounter Care Teams Wax Ball Knock Out Worker Relationship Specialty Start Date End Date Caroline Shultz APRN [address] [place] [address] PCP - General 09/22/24 documented as of this encounter
--- OUTSIDE RECORDS SUMMARY | 2025-03-19 11:58 | XMS_ITS | Clinical Summary ---
Author Organization [facility] Address [address] [place] [address] Care Team Providers Care Mens Locker Room Attendant Name Role Phone Caroline Shultz APRN Primary Care Provider [phone] Allergies Active Allergy Reactions Criticality Noted Date [...] by mouth every morning. Active fish oil (Sewell-3) 500 MG capsule Take 2,400 mg by [...] 2 days. 18 tablet 02/28/20 25 Active prochlorperazin e (Compazine) 10 MG tabletIndicatio ns:Glioblastoma multiforme (CMS/HCC) Take 1 tablet by mouth every 6 hours as needed for nausea or vomiting. 30 tablet 5 03/19/20 25 Active ondansetron (Zofran) 8 MG tabletIndicatio ns:Glioblastoma multiforme (CMS/HCC) Take 1 tab (8mg) by mouth daily 30 minutes prior to temozolomide, then up to every 8 hours (max: 3/day) as needed for nausea/vomitin g 90 tablet 1 03/19/20 25 Active sulfamethoxazol e-trimethoprim (Bactrim DS) 800-160 MG tabletIndicatio ns:Glioblastoma multiforme (CMS/HCC) Take 1 tablet by mouth 2 times a day on Sunday and Sunday. For prophylaxis. 24 tablet 03/21/20 25 Active temozolomide (Temodar) 20 MG chemo capsuleIndicati ons:Glioblastom a multiforme (CMS/HCC) Take 1 capsule (20 mg total) by mouth daily. Take 1 hour before radiation and on weekends 42 capsule 03/19/20 25 2024 Active temozolomide (Temodar) 140 MG chemo capsuleIndicati ons:Glioblastom a multiforme (CMS/HCC) Take 1 capsule (140 mg total) by mouth daily. Take 1 hour before radiation and on weekends 42 capsule 03/19/20 25 2024 Active hydroCHLOROthia zide (HYDRODiuril) 25 MG tablet Take 1 tablet by mouth 2 times a day. 2024 Discontinued(S top Taking at Discharge) levETIRAcetam (Keppra) 500 MG tablet Take 3 tablets (1,500 mg) by mouth 2 (two) times a day. 180 tablet 11 09/25/19 25 2024 Discontinued b complex vitamins [...] Active Problems Problem Noted Date Diagnosed Date Glioblastoma multiforme 03/09/2025 Facial droop 02/26/2025 Assessment & Plan [...] Normotensive - Sodium Goals: Normonatremia - recommend PT/OT/[facility] evaluation - No indication to obtain echo with most recently obtained on 09/2024 - follow-up w/[facility] in 8-12 weeks following [...] Normotensive - Sodium Goals: Normonatremia - recommend PT/OT/[facility] evaluation - No indication to obtain echo with most recently obtained on 09/2024 - follow-up w/[facility] in 8-12 weeks following [...] Normotensive - Sodium Goals: Normonatremia - recommend PT/OT/[facility] evaluation - No indication to obtain echo [...] would like to follow here at the [facility]. - final treatment planning [...] Sunday, 02/23 History of CVA (cerebrovascular accident) 2024 [...] would like to follow here at the [facility]. - final treatment planning [...] would like to follow here at the [facility]. - final treatment planning [...] would like to follow here at the [facility]. - final treatment planning [...] able - plan for operative intervention 02/23 Hypertension Assessment & Plan (02/26/2025 7:32 [...] Encounters Date Type Department Care Team Description 03/19/2025 Orders Only [facility] Head[facility] Neck & Respiratory [address] [facility], 2nd [place] [phone] Chente Sebastian MD Glioblastoma multiforme (CMS/HCC) (Primary Dx) 03/19/2025 Clinical Support [facility] Respiratory [address] [facility], [address]nd [place] [address] Rickie Wagner, PharmD Glioblastoma multiforme (CMS/HCC) (Primary Dx) 03/17/2025 1:00 PM EDT Hospital Encounter [facility] Radiation [address] [facility]. 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 [id number] [place] [address] Miguel Perez MD Oligodendroglioma (CMS/HCC) (Primary Dx) Discharge Disposition: Still a Patient 03/09/2025 Travel 03/07/2025 Travel 03/05/2025 Telephone [facility] [address] [place] [phone] Sheba Fisher, MANAGER [facility] 03/03/2025 Telephone [facility] Head[facility] Neck & Respiratory [address] [facility], [address]nd [place] [address] Chente Sebastian MD 03/03/2025 Orders Only [facility] Head[facility] Neck & Respiratory [address] [facility], [address] [place] [address] Chente Sebastian MD Glioma of brain (CMS/HCC) (Primary Dx) 03/02/2025 Telephone [facility] [address], [address] [place] [address] Sanchez Zaldivar MD 02/27/2025 Travel 02/26/2025 Travel 02/25/2025 Travel 02/24/2025 5:55 PM EDT - 02/24/2025 10:45 PM EDT Surgery [facility] A OPERATING ROOM [address] [place] [address] Sanchez Zaldivar MD LEFT CRANIOTOMY, FOR INTRACRANIAL NEOPLASM EXCISION 02/24/2025 5:34 PM EDT Anesthesia Event [facility] A OPERATING ROOM [address] [place] [phone] Alessandro Medina DO Rock, Holly R, PA 02/22/2025 Travel 02/18/2025 Travel 02/16/2025 3:08 PM EDT - 02/27/2025 2:24 PM EDT Hospital Encounter [facility] A Inpatient [address] [place] [phone] Maximus Ambrocio DO Pittman, Thomas, MD Mirza, Farhan A, MD Brain mass (Primary Dx); Hyponatremia; Hypertension, unspecified type; Focal seizure (CMS/HCC); Facial droop; Expressive aphasia; Acute right-sided weakness; Sensory deficit, right Discharge Disposition: Home or Self Care 02/16/2025 10:00 AM EDT Office Visit [facility] [address], [address] [place] [phone] Bridget Lion PA Aphasia (Primary Dx); Acute ischemic left middle cerebral artery (MCA) stroke (CMS/HCC) 02/16/2025 Travel 02/15/2025 Travel 01/27/2025 Orders Only [facility] [address], [address] [place] [address] Bridget Lion PA 01/21/2025 8:40 AM EDT Office Visit [place] [facility] [address], [address] [place] [address] Bridget Lion PA Acute ischemic left middle cerebral artery (MCA) stroke (CMS/HCC) (Primary Dx); Sensory deficit, right 01/21/2025 Travel 01/14/2025 Travel from Last 3 Months Immunizations Immunization Administration [...] any time in the past 12 m [facility], were you homeless or living in [...] any time in the past 12 m [facility], were you homeless or living in [...] [facility] Head[facility] Neck [facility] Respiratory [address] [facility], [address]nd [place] [address] 03/23/2025 2:00 PM EDT Office Visit [facility] Head, Neck & Respiratory [address] [facility], [address]nd [place] [address] Chente Sebastian MD [address] [place] [address] 07/06/2025 9:30 AM EDT Office Visit [place] [facility] [address], [address] [place] [address] Sanchez Zaldivar MD [address] [place] [address] Health Maintenance Due Date Last Done Comments [...] [facility]-Zoster Vaccines (2 of 2) 07/31/2018 06/05/2018 [id number] Vaccine ( - season) 2024 07/14/2021, 10/08/2020, 09/08/2020 [facility]-Influenza Vaccine (#1) 2025 [facility]-Diabetes: Hemoglobin A1C 08/19/2025 02/19/2025, 09/25/2024 [facility]- SDOH Screenings 08/21/2025 [facility]-Adult SDOH Screenings 08/21/2025 02/19/2025 [facility]-Depression Screening 10/08/2025 10/08/2024, 09/11 [facility]-DTaP,Tdap,and Td Vaccines (2 - Td or Tdap) 05/31/2029 05/31/2019 [facility]-Hepatitis C Screening Completed 09/22/2024 [facility]-Obesity Intervention Completed 025, 02/16/2025, 02/16/2025, Additional history exists HPV Vaccines Aged Out [...] this topic Medical Devices 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 [employer] [id number] 09/09/2026 [id number] / / [id number] Cover, Neuro Maryann Lp 17mm - [id number] Implanted:Qty: 3 on 02/24/2025 by Sanchez Zaldivar MD at [facility] [employer] [facility]-[id number] / / Plate, 2 Hole Low Profile - [id number] Implanted:Qty: 1 on 02/24/2025 by Sanchez Zaldivar MD at [facility] [employer] [facility]-[id number] [id number] / / Screw Ti Matrixneuro Selfdrill 4mm - [id number] Implanted:Qty: 15 on 02/24/2025 by Sanchez Zaldivar MD at [facility] [employer] [id number] / / Procedures Procedure Name [...] 02/24/2025 9:04 PM EDT Brain mass CARIS [place] TUMOR SEEK HYBRID + IHCS AND OTHER [...] ANESTHESIA PLACEHOLDER Routine 02/24/2025 5:38 PM EDT DE AN ELECTIVE ENDOTRACHEAL AIRWAY Routine 02/24/2025 5:38 [...] Daily Hakan Jainus A 40 mg at 02/27/25 0839 polyethylene [...] Intravenous PRN Katharine Oreilly MD Anaya Felton MANAGER [facility] NEUROLOGY ORDERABLES Final R esult * (ABNORMAL) Basic metabolic panel (02/27/2025 8:59 AM EDT) Only the most recent of9 resultswithin the time period is included. Glucose, Plasma 95 74 - 99 mg/dL 02/27/2025 9:40 AM EDT [facility] BUN, Plasma 21 8 - 23 mg/dL 02/27/2025 9:40 AM EDT [facility] Creatinine, Plasma 0.64 0.60 - 1.10 mg/dL 02/27/2025 9:40 AM EDT [facility] BUN/Creatinine Ratio 33 02/27/2025 9:40 AM EDT [facility] Sodium, Plasma 132(L) 136 - 145 mmol/L 02/27/2025 9:40 AM EDT [facility] Potassium, Plasma 4.2 3.6 - 4.9 mmol/L 02/27/2025 9:40 AM EDT [facility] Chloride, Plasma 97 97 - 107 mmol/L 02/27/2025 9:40 AM EDT [facility] CO2, Plasma 23 22 - 29 mmol/L 02/27/2025 9:40 AM EDT [facility] Anion Gap 12 6 - 16 mmol/L 02/27/2025 9:40 AM EDT [facility] Total Calcium, Plasma 9.2 8.9 - 10.2 mg/dL 02/27/2025 9:40 AM EDT [facility] eGFRcr 97.6 mL/min/1.7 3m*2 02/27/2025 9:40 AM EDT [facility] Comment:Reported eGFRcr in m L/min/1.73m2 is based the CKD-EPI 2020 equation that does not use a race coefficient. Blood Venous blood specimen / Unknown Venipuncture / Unknown 02/27/2025 8:59 AM EDT 02/27/2025 9:08 AM EDT us Ede Ruiz MD LAB BLOOD ORDERABLES Final R esult [facility] [address] [place] [address] * Troponin T, High Sensitivity, 2 Hour, Plasma (02/26/2025 11:08 AM EDT) Troponin T, High Sensitivity, 2 Hour 8 <14 ng/L 02/26/2025 11:43 AM EDT [facility] Blood Venous blood specimen / Unknown Venipuncture / Unknown 02/26/2025 11:08 AM EDT 02/26/2025 11:15 AM EDT Ned Menendez MD LAB BLOOD ORDERABLES Final Res ult [facility] [address] [place] [address] * ECG Adult (02/26/2025 9:51 AM EDT) Only the most recent of2 resultswithin the time period is included. EKG DIAGNOSIS CLASS Normal MUSE ECG Ventricular Rate 73 BPM MUSE ECG Atrial Rate 73 BPM MUSE ECG DE Interval 176 ms MUSE ECG QRSD Interval 80 ms MUSE ECG QT Interval 380 ms MUSE ECG QTC Interval 418 ms MUSE ECG P [place] 9 degrees MUSE ECG R [place] 0 degrees MUSE ECG T Wave [place] 27 degrees MUSE ECG Diagnosis Normal sinus rhythm MUSE ECG Diagnosis MUSE ECG Diagnosis MUSE ECG Diagnosis Confirmed by Tasneem Ludwig ([id number]) on 02/27/2025 10:30:15 AM MUSE ECG 02/26/2025 9:51 AM EDT 02/27/2025 10:30 AM EDT Ned Menendez MD ECG ORDERABLES Final Result MUSE ECG * Troponin T, High Sensitivity, 0 Hour Plasma, Reflex to 2 Hour (02/26/2025 8:26 AM EDT) Troponin T, High Sensitivity, 0 Hour 11 <14 ng/L 02/26/2025 9:08 AM EDT [facility] Blood Venous blood specimen / Unknown Venipuncture / Unknown 02/26/2025 8:26 AM EDT 02/26/2025 8:38 AM EDT Result Chase Menendez MD LAB BLOOD ORDERABLES Final Res ult Performing Organization Address City/[facility]/ZIP Co de Phone Number [facility] [address] [place] [address] * APTT (02/26/2025 8:26 AM EDT) Only the most recent of5 resultswithin the time period is included. aPTT 28 25 - 35 sec LAB COAGULATION METHOD 02/26/2025 9:01 AM EDT [facility] Blood Venous blood specimen / Unknown Venipuncture / Unknown 02/26/2025 8:26 AM EDT 02/26/2025 8:38 AM EDT us Ned Menendez MD LAB BLOOD ORDERABLES Final Res ult Performing Organization Address [facility] de Phone Number [facility] [address] [place] [address] * Protime-INR (02/26/2025 8:26 AM EDT) Only the most recent of5 resultswithin the time period is included. Prothrombin Time 13.4 12.0 - 14.3 sec LAB COAGULATION METHOD 02/26/2025 9:01 AM EDT [facility] INR 1.0 0.9 - 1.1 LAB COAGULATION METHOD 02/26/2025 9:01 AM EDT [facility] Blood Venous blood specimen / Unknown Venipuncture / Unknown 02/26/2025 8:26 AM EDT 02/26/2025 8:38 AM EDT Narrative [facility] - 02/26/2025 9:01 AM EDT OPTIMAL INR RANGES FOR PATIENT ON ORAL ANTICOAGULANT THERAPY Prevention of venous thromboembolism INR 2.0 to 3.0 In patients with heart disease: Atrial fibrillation INR 2.0 to 3.0 Valvular heart disease INR 2.0 to 3.0 Tissue heart valves INR 2.0 to 3.0 Mechanical prosthetic valves INR 2.5 to 3.5 Prevention of recurrent [place] INR 2.5 to 3.5 Result Chase Menendez MD LAB BLOOD ORDERABLES Final Res ult [facility] [address] [place] [address] * (ABNORMAL) CBC and differential (02/26/2025 8:26 AM EDT) Only the most recent of3 resultswithin the time period is included. WBC Count 14.93(H) 3.70 - 10.30 10*3/uL LAB HEMATOLOGY METHOD 02/26/2025 8:45 AM EDT [facility] RBC Count 4.36 3.90 - 5.20 10*6/uL LAB HEMATOLOGY METHOD 02/26/2025 8:45 AM EDT [facility] HGB 12.3 11.2 - 15.7 g/dL LAB HEMATOLOGY METHOD 02/26/2025 8:45 AM EDT [facility] HCT 36.1 34.0 - 45.0 % LAB HEMATOLOGY METHOD 02/26/2025 8:45 AM EDT [facility] Platelet Count 349 155 - 369 10*3/uL LAB HEMATOLOGY METHOD 02/26/2025 8:45 AM EDT [facility] MCV 83 79 - 98 fL LAB HEMATOLOGY METHOD 02/26/2025 8:45 AM EDT [facility] MCH 28.2 26.0 - 32.0 pg LAB HEMATOLOGY METHOD 02/26/2025 8:45 AM EDT [facility] MCHC 34.1 30.7 - 35.5 g/dL LAB HEMATOLOGY METHOD 02/26/2025 8:45 AM EDT [facility] RDW 13.1 11.5 - 14.5 % LAB HEMATOLOGY METHOD 02/26/2025 8:45 AM EDT [facility] MPV 9.2 8.8 - 12.5 fL LAB HEMATOLOGY METHOD 02/26/2025 8:45 AM EDT [facility] nRBC 0.0 <=0.0 per 100 WBCs LAB HEMATOLOGY METHOD 02/26/2025 8:45 AM EDT [facility] Differential Type Automated LAB HEMATOLOGY METHOD 02/26/2025 8:45 AM EDT [facility] Neutrophils % 80 % LAB HEMATOLOGY METHOD 02/26/2025 8:45 AM EDT [facility] Lymphocytes % 9 % LAB HEMATOLOGY METHOD 02/26/2025 8:45 AM EDT [facility] Monocytes % 10 % LAB HEMATOLOGY METHOD 02/26/2025 8:45 AM EDT [facility] Eosinophils % 0 % LAB HEMATOLOGY METHOD 02/26/2025 8:45 AM EDT [facility] Basophils % 0 % LAB HEMATOLOGY METHOD 02/26/2025 8:45 AM EDT [facility] Immature Granulocytes % 1 % LAB HEMATOLOGY METHOD 02/26/2025 8:45 AM EDT [facility] Neutrophils Absolute 11.91(H) 1.60 - 6.10 10*3/uL LAB HEMATOLOGY METHOD 02/26/2025 8:45 AM EDT [facility] Lymphocytes Absolute 1.41 1.20 - 3.90 10*3/uL LAB HEMATOLOGY METHOD 02/26/2025 8:45 AM EDT [facility] Monocytes Absolute 1.43(H) 0.30 - 0.90 10*3/uL LAB HEMATOLOGY METHOD 02/26/2025 8:45 AM EDT [facility] Eosinophils Absolute 0.00 0.00 - 0.50 10*3/uL LAB HEMATOLOGY METHOD 02/26/2025 8:45 AM EDT [facility] Basophils Absolute 0.02 0.00 - 0.10 10*3/uL LAB HEMATOLOGY METHOD 02/26/2025 8:45 AM EDT [facility] Immature Granulocytes Absolute 0.16(H) 0.00 - 0.06 10*3/uL LAB HEMATOLOGY METHOD 02/26/2025 8:45 AM EDT [facility] Blood Venous blood specimen / Unknown Venipuncture / Unknown 02/26/2025 8:26 AM EDT 02/26/2025 8:38 AM EDT Narrative [facility] - 02/26/2025 8:45 AM EDT Therapeutic decision making should be based on absolute values, rather than percentages. us Ned Menendez MD LAB BLOOD ORDERABLES Final Res ult [facility] [address] [place] [address] * (ABNORMAL) POCT glucose meter (02/26/2025 8:18 [...] Comment 02/26/2025 8:21 AM EDT [facility] Production Administrative Assistant ID Sherin Bynum 02/26/2025 8:21 AM EDT [facility] Device ID [id number] 02/26/2025 8:21 AM EDT [facility] Specimen Type POC Capillary 02/26/2025 8:21 AM EDT [facility] Blood Capillary blood specimen / Unknown 02/26/2025 8:18 AM EDT 02/26/2025 8:21 AM EDT Ned Menendez MD LAB POINT OF CARE TE ST DOCKED DEVICE UNSOLICITED RESULTS Final Result Performing Organization Address City/State/[facility] Co de Phone Number [facility] [address] [place] [address] * CT Angio Neck (02/26/2025 8:10 AM [...] Total DLP (Dose-Length Product): 953.08 mGy.cm (accession [id number]), 953.08 mGy.cm (accession [id number]). Please note: The reported value represents the [...] no aneurysm of either internal carotid artery. [place] and Major Peripheral Branches: There [...] Total DLP (Dose-Length Product): 953.08 mGy.cm (accession [id number]),953.08 mGy.cm (accession [id number]). Please note: The reported valuerepresents the total [...] segment and mild stenoses in the left [id number]. There is no definite evidence of a [...] no aneurysm of either internal carotid artery. [place] and Major Peripheral Branches: There [...] systems. Redemonstration of moderate stenoses in right I1rtnstgh. Redemonstration of mild irregularity/undulating contour of the [...] MD on 02/26/2025 8:59 AM Anaya Felton MANAGER [facility] IMG CT PROCEDURES Final Resu lt * CT Angio Head (02/26/2025 8:10 AM EDT) Only the most recent of2 resultswithin the time period is included. Anatomical Region Laterality Modality [place] Computed Tomogr aphy Impressions 02/26/2025 [...] Total DLP (Dose-Length Product): 953.08 mGy.cm (accession [id number]), 953.08 mGy.cm (accession [id number]). Please note: The reported value represents the [...] no aneurysm of either internal carotid artery. [place] and Major Peripheral Branches: There [...] Total DLP (Dose-Length Product): 953.08 mGy.cm (accession [id number]),953.08 mGy.cm (accession [id number]). Please note: The reported valuerepresents the total [...] segment and mild stenoses in the left [id number]. There is no definite evidence of a [...] no aneurysm of either internal carotid artery. [place] and Major Peripheral Branches: There [...] systems. Redemonstration of moderate stenoses in right [id number]. Redemonstration of mild irregularity/undulating contour of the [...] MD on 02/26/2025 8:59 AM us Anaya Curtis Jose Francisco MANAGER [facility] IMG CT PROCEDURES Final Resu lt * [...] MD IMG CT PROCEDURES Final Result * (ABNORMAL) CBC W/O Differential (02/26/2025 4:23 AM EDT) Only the most recent of4 resultswithin the time period is included. WBC Count 15.84(H) 3.70 - 10.30 10*3/uL LAB HEMATOLOGY METHOD 02/26/2025 4:44 AM EDT [facility] RBC Count 4.27 3.90 - 5.20 10*6/uL LAB HEMATOLOGY METHOD 02/26/2025 4:44 AM EDT [facility] HGB 12.1 11.2 - 15.7 g/dL LAB HEMATOLOGY METHOD 02/26/2025 4:44 AM EDT [facility] HCT 35.8 34.0 - 45.0 % LAB HEMATOLOGY METHOD 02/26/2025 4:44 AM EDT [facility] Platelet Count 332 155 - 369 10*3/uL LAB HEMATOLOGY METHOD 02/26/2025 4:44 AM EDT [facility] MCV 84 79 - 98 fL LAB HEMATOLOGY METHOD 02/26/2025 4:44 AM EDT [facility] MCH 28.3 26.0 - 32.0 pg LAB HEMATOLOGY METHOD 02/26/2025 4:44 AM EDT [facility] MCHC 33.8 30.7 - 35.5 g/dL LAB HEMATOLOGY METHOD 02/26/2025 4:44 AM EDT [facility] RDW 13.2 11.5 - 14.5 % LAB HEMATOLOGY METHOD 02/26/2025 4:44 AM EDT [facility] MPV 9.1 8.8 - 12.5 fL LAB HEMATOLOGY METHOD 02/26/2025 4:44 AM EDT [facility] nRBC 0.0 <=0.0 per 100 WBCs LAB HEMATOLOGY METHOD 02/26/2025 4:44 AM EDT [facility] Blood Venous blood specimen / Unknown Venipuncture / Unknown 02/26/2025 4:23 AM EDT 02/26/2025 4:29 AM EDT Anaya Curtis Jose Francisco MURPHY LAB BLOOD ORDERABLES Final R esult Performing Organization Address City/[facility]/ZIP Co de Phone Number [facility] [address] [place] [address] * Phosphorus, Plasma (02/26/2025 4:23 AM EDT) Only the most recent of5 resultswithin the time period is included. Phosphorus, Plasma 3.5 2.5 - 4.5 mg/dL 02/26/2025 4:[address] [facility] Blood Venous blood specimen / Unknown Venipuncture / Unknown 02/26/2025 4:23 AM EDT 02/26/2025 4:29 AM EDT Anaya Curtis Jose Francisco [facility] LAB BLOOD ORDERABLES Final R esult Performing Organization Address City/[facility]/ZIP Co de Phone Number [facility] [address] [place] [address] * Magnesium, Plasma (02/26/2025 4:23 AM EDT) Only the most recent of5 resultswithin the time period is included. Magnesium, Plasma 2.0 1.9 - 2.4 mg/dL 02/26/2025 4:57 AM EDT [facility] Blood Venous blood specimen / Unknown Venipuncture / Unknown 02/26/2025 4:23 AM EDT 02/26/2025 4:29 AM EDT Anaya Felton MANAGER [facility] LAB BLOOD ORDERABLES Final R esult [facility] [address] [place] [address] * MR Head w and wo IV [...] Narrative 02/25/2025 10:08 AM EDT CLINICAL INDICATION: Brain/METAL TRIMMER neoplasm, assess treatment response. Postoperative from craniectomy [...] Marcus Elias MD - 02/25/2025 CLINICAL INDICATION: Brain/METAL TRIMMER neoplasm, assess treatment response. Postoperative fromcraniectomy for [...] MRI PROCEDURES Final Resul t * (ABNORMAL) Luis Alfredo [place] Cancer Seek Hybrid??? + IHCs and Other Tests by Tumor Type (02/24/2025 9:04 PM EDT) Pathologist [facility] CARIS Genomic Loss of Heterozygosity - [place] Low 3% 03/13/2025 1:58 PM EDT [facility] CARIS Microsatellite Instability - [place] Stable 03/13/2025 1:58 PM EDT [facility] CARIS Tumor Mutational Modoc - [place] Low 3 per Mb 03/13/2025 1:58 PM EDT [facility] CARIS Her2/Davian Negative 03/13/2025 1:58 PM EDT [facility] CARIS HLA-A - [place] A*01:01,A*02: 01 03/13/2025 1:58 PM EDT [facility] CARIS HLA-B - [place] B*07:02,B*57: 01 03/13/2025 1:58 PM EDT [facility] CARIS HLA-C - [place] C*06:02,C*07: 02 03/13/2025 1:58 PM EDT [facility] LUIS ALFREDO MGMT-Me - Pyro SEQ Methylated 03/13/2025 1:58 PM EDT [facility] Tissue Non-blood Collection / Unknown 02/24/2025 9:04 PM EDT 03/03/2025 12:59 PM EDT Narrative This result has genomic variants that were not included in this document. us Chente Sebastian MD LAB MOL DX NO SOURCE Final Res ult [facility] [address] [address], * FISH, Paraffin 1p/19Q (02/24/2025 9:04 PM EDT) Specimen Adequacy Adequate 03/11/2025 1:32 PM EDT [facility] Clinical Indication 03/11/2025 1:32 PM EDT [facility] Comment: Pre-op diagnosis: Brain mass [G93.89] Interpretation Tissue type: Brain Pathology Case #: [id number] Block A3 FISH studies are NEGATIVE for [...] prognostic factors which confer unfavorable outcomes (Jonathon Anderson et al. J Neuroncol 2014;120(1):131.). Polysomy exceeding 30% has been shown to correlate with reduced progression-free survival compared to co-deleted oligodendrogliomas without polysomy (Aleksandra CL Neurosurg Focus 2005;19(5):E2;Demetris villalta C et al. Brain Pathol 2008;18:360-9; Krishna CE et al. JNEN 2003;62(1):1118.). 03/11/2025 1:32 PM EDT [facility] ISCN nuc yesenia(MEGF6,TP73)x1~4, (ABL2,ANGPTL1)x1~4[6 0]/(MAN2B1,ZNF44)x1~ 5,(CRX,GLTSCR1)x1~5[ 60] Methodology: Fluorescence in situ hybridization (FISH) was performed on a paraffin-embedded 4~5 m cut unstained tissue slide using 4 [employer]ot fluorescent labeled probes which hybridize to the [...] At least 60 cells were analyzed, and real estate representative images were captured and stored using VirtuOz software ([employer].). Cutoff ratios are <0.75 for both probe pairs, with relative deletion seen in at least 20% of tumor cells. Results are reported as the ratio of total 1p to 1q signals and 19q to 19p signals. A ratio between 0.75 and 1.2 is considered normal and <0.75 is considered deletion for 1p or 19q. 03/11/2025 1:[address] [facility] REFERENCES Adrienne JAMISON et al. Clin Oncol 2015;17(8):445. Van den Bent MJ et al., Neuro-Oncology 2017;19(5):614. 03/11/2025 1:[address] [facility] Disclaimer This test was developed and its performance characteristics determined by the [facility]. It has not been [...] specimen and probe. 03/11/2025 1:[address] [facility] Pathologist Signature Reviewed by: Paulo Peraza 03/11/2025 1:32 PM EDT [facility] Tissue 02/24/2025 9:04 PM EDT 03/05/2025 10:58 AM EDT us Sanchez Zaldivar MD LAB CYTOGENETICS ORDERABLES Fi nal Result [facility] [address] [place] [address] * Surgical Pathology Exam (02/24/2025 9:04 PM EDT) Case Report Surgical Pathology Case: [id number] Authorizing Provider: Sanchez Zaldivar MD Collected: 02/24/20252103 Ordering Location: [facility] Received: 02/25/2025 0824 Pathologist: Kayla Costello MD Specimens: A) - Brain, brain tumor sonopet contents B) - Other (specify site), tumor in saline 03/19/2025 9:52 AM EDT [facility] Correction History Reason for amendment: molecular testing (FISH and Caris) allowed for further subclassification. Drs. Zaldivar and Romulo were notified of the changes to the final report via secure communication by Elena Larios MD on 03/19/2025 . 03/19/2025 9:[address] [facility] Comment:These results have b een appended to a previously final verified report. 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 03/19/2025 9:52 AM EDT [facility] Microscopic Description IHC: A2-2 IDH-1 negatve (wild type) A3-5 ATRX positive (wild type) All controls show appropriate reactivity. All immunohistochemist ry, in situ hybridization, and histochemical tests were developed by and are performed at the [facility], [address] [place] [address]. All tests reported here, except those addressing [...] on decalcified specimens. 03/19/2025 9:52 AM EDT [facility] Gross Description A. BRAIN TUMOR SONOPET CONTENTS Received fresh and placed in formalin labeled brain tumor Sonopet contents are multiple pieces of pink-garcia soft tissue measuring 4.0 x 3.0 x 0.4 cm in aggregate. Entirely submitted in cassettes A1-A3. Cold Time: 11h 20m Rosibel Tyler TUMOR IN SALINE Received fresh and placed in formalin labeled tumor are multiple pieces of pink-garcia soft tissue measuring 2.4 x 2.2 x 0.4 cm in aggregate. Entirely submitted in cassette A1. Cold Time: 9h 02m Rosibel Stevens 03/19/2025 9:52 AM EDT [facility] Note: A resident was involved in the service. I attest I examined the relevant preparations for the specimens and confirmed the diagnosis or interpretation. 03/19/2025 9:52 AM EDT [facility] Tissue Brain structure / Unknown 02/24/2025 9:04 PM EDT 02/25/2025 8:24 AM EDT Comment:Pre-op diagnosis: Brain mass [G93.89] Tissue specimen (specimen) Topography unknown / Unknown 02/24/2025 11:22 PM EDT 02/25/2025 8:24 AM EDT Comment:Pre-op diagnosis: Brain mass [G93.89] Sanchez Zaldivar MD LAB PATHOLOGY ORDERABLES Edite d Result - Final [facility] [address] [place] [address] * (ABNORMAL) Blood gas, arterial (02/24/2025 7:23 PM EDT) pH, Arterial 7.39 7.31 - 7.42 LAB HEMATOLOGY METHOD 02/24/2025 7:34 PM EDT [facility] pCO2, Arterial 33(L) 35 - 48 mmHg LAB HEMATOLOGY METHOD 02/24/2025 7:34 PM EDT [facility] pO2, Arterial 119 >80 mmHg LAB HEMATOLOGY METHOD 02/24/2025 7:34 PM EDT [facility] SO2, Measured, Arterial 100(H) 94 - 98 % LAB HEMATOLOGY METHOD 02/24/2025 7:34 PM EDT [facility] Base Excess, Arterial -4.3(L) -2.0 - 3.0 mmol/L LAB HEMATOLOGY METHOD 02/24/2025 7:34 PM EDT [facility] Bicarbonate, Calculated, Arterial 20(L) 22 - 26 mmol/L LAB HEMATOLOGY METHOD 02/24/2025 7:34 PM EDT [facility] Hematocrit, Whole Blood 37.4 34.0 - 45.0 % LAB HEMATOLOGY METHOD 02/24/2025 7:34 PM EDT [facility] Sodium, Whole Blood 129(L) 136 - 145 mmol/L LAB HEMATOLOGY METHOD 02/24/2025 7:34 PM EDT [facility] Potassium, Whole Blood 3.6 3.6 - 4.9 mmol/L LAB HEMATOLOGY METHOD 02/24/2025 7:34 PM EDT [facility] Chloride, Whole Blood 99 97 - 107 mmol/L LAB HEMATOLOGY METHOD 02/24/2025 7:34 PM EDT [facility] Glucose, Whole Blood 126(H) 74 - 99 mg/dL LAB HEMATOLOGY METHOD 02/24/2025 7:34 PM EDT [facility] Ionized Calcium, Whole Blood 4.6 4.6 - 5.1 mg/dL LAB HEMATOLOGY METHOD 02/24/2025 7:34 PM EDT [facility] Lactate, Arterial, Whole Blood 1.4 0.5 - 1.6 mmol/L LAB HEMATOLOGY METHOD 02/24/2025 7:34 PM EDT [facility] Blood Arterial blood specimen / Unknown Arterial Line / Unknown 02/24/2025 7:23 PM EDT 02/24/2025 7:33 PM EDT us Alessandro Medina DO LAB BLOOD ORDERABLES Final Res ult Performing Organization Address City/State/[facility] Co de Phone Number [facility] [address] [place] [address] * PB ANESTHESIA NON-TIMED PROCEDURE PLACEHOLDER (02/24/2025 [...] Luis Weems MD Resident: Steven Almeida MD Jose Luis Weems MD ANESTHESIA ORDERABLES F [...] MD ANESTHESIA ORDERABLES F inal Result * DE AN ELECTIVE ENDOTRACHEAL AIRWAY, PB ANESTHESIA PLACEHOLDER (02/24/2025 5:38 PM EDT) Narrative Jose Luis Weems MD - 02/24/2025 5:38 PM EDT Jose [...] of2 resultswithin the time period is included. Pathologist [facility] ABO/Rh A Positive 02/23/2025 4:20 PM EDT BLOOD BANK Antibody Screen Negative 02/23/2025 4:20 PM EDT BLOOD BANK Specimen Expiration 02/26/2025 23:59 02/23/2025 4:20 PM EDT BLOOD BANK Blood Venous blood specimen / Unknown Venipuncture / Unknown 02/23/2025 5:11 PM EDT 02/23/2025 5:24 PM EDT Ned Menendez MD LAB BLOOD BANK TEST ORDERABLES Final Result BLOOD BANK [address] [place] [address], * (ABNORMAL) Comprehensive Metabolic Panel, Plasma (02/23/2025 5:11 PM EDT) Only the most recent of4 resultswithin the time period is included. Pathologist [facility] Glucose, Plasma 119(H) 74 - 99 mg/dL 02/23/2025 5:54 PM EDT [facility] BUN, Plasma 20 8 - 23 mg/dL 02/23/2025 5:54 PM EDT [facility] Creatinine, Plasma 0.73 0.60 - 1.10 mg/dL 02/23/2025 5:54 PM EDT [facility] BUN/Creatinine Ratio 27 02/23/2025 5:54 PM EDT [facility] Sodium, Plasma 130(L) 136 - 145 mmol/L 02/23/2025 5:54 PM EDT [facility] Potassium, Plasma 4.4 3.6 - 4.9 mmol/L 02/23/2025 5:54 PM EDT [facility] Chloride, Plasma 96(L) 97 - 107 mmol/L 02/23/2025 5:54 PM EDT [facility] CO2, Plasma 22 22 - 29 mmol/L 02/23/2025 5:54 PM EDT [facility] Anion Gap 12 6 - 16 mmol/L 02/23/2025 5:54 PM EDT [facility] Total Calcium, Plasma 9.6 8.9 - 10.2 mg/dL 02/23/2025 5:54 PM EDT [facility] Total Protein 6.8 6.3 - 7.9 g/dL 02/23/2025 5:54 PM EDT [facility] Albumin, Plasma 4.1 3.5 - 5.2 g/dL 02/23/2025 5:54 PM EDT [facility] AST, Plasma 23 10 - 35 U/L 02/23/2025 5:54 PM EDT [facility] Comment:Hemolyzed, result ma y be falsely increased. ALT, Plasma 25 10 - 35 U/L 02/23/2025 5:54 PM EDT [facility] Alkaline Phosphatase, Plasma 52 46 - 142 U/L 02/23/2025 5:54 PM EDT [facility] Total Bilirubin, Plasma 0.3 0.2 - 1.1 mg/dL 02/23/2025 5:54 PM EDT [facility] eGFRcr 90.8 mL/min/1.7 3m*2 02/23/2025 5:54 PM EDT [facility] Comment:Reported eGFRcr in m L/min/1.73m2 is based the CKD-EPI 2020 equation that does not use a race coefficient. Blood Venous blood specimen / Unknown Venipuncture / Unknown 02/23/2025 5:11 PM EDT 02/23/2025 5:24 PM EDT Ned Menendez MD LAB BLOOD ORDERABLES Final Res ult [facility] [address] [place] [address] * (ABNORMAL) Sodium (02/23/2025 12:40 AM EDT) Only the most recent of10 resultswithin the time period is included. Sodium, Plasma 134(L) 136 - 145 mmol/L 02/23/2025 1:32 AM EDT [facility] Blood Venous blood specimen / Unknown Venipuncture / Unknown 02/23/2025 12:40 AM EDT 02/23/2025 1:10 AM EDT us Anaya Curtis Jose Francisco MANAGER [facility] LAB BLOOD ORDERABLES Final R esult [facility] [address] [place] [address] * (ABNORMAL) POCT Glucose - Before Meals and Bedtime (02/22/2025 7:45 PM EDT) POCT Glucose 128(A) 74 - 99 mg/dL [facility] Blood Venous blood specimen / Unknown 02/22/2025 7:45 PM EDT Anaya Blackjeff MANAGER [facility] POINT OF CARE TEST ENTER/FABIO T ORDERABLES Final Result Performing Organization Address City/[facility] Co de Phone Number [facility] [address] [place] [address] * MR Head w IV Contrast (02/22/2025 [...] * Lavender Top (02/20/2025 4:27 AM EDT) Pathologist [facility] Extra Hold for add-ons 02/20/2025 8:02 AM EDT [facility] Comment:Auto resulted. Blood Venous blood specimen / Unknown 02/20/2025 4:27 AM EDT 02/20/2025 5:06 AM EDT us Ned Menendez MD LAB BLOOD ORDERABLES Final Res ult [facility] [address] [place] [address] * (ABNORMAL) Hemoglobin A1c (02/19/2025 4:17 PM EDT) Hemoglobin A1c 5.7(H) <5.7 % 02/19/2025 5:20 PM EDT [facility] Blood Venous blood specimen / Unknown Venipuncture / Unknown 02/19/2025 4:17 PM EDT 02/19/2025 4:49 PM EDT Narrative [facility] - 02/19/2025 5:20 PM EDT HA1C Interpretive Data: Diagnosis of Diabetes: Diabetic > or = 6.5% Pre-diabetic 5.7 to 6.4% Non-diabetic < or = 5.6% Glycemic Targets for Type I and Type II Diabetics: Non- Adults <7.0% Adults <6.0% Children and Adolescents <7.5% Source: [place] [employer]. Standards of medical care in diabetes,2017. Diabetes Care.2017:40 (suppl 1):S1-S135. Anaya Felton APRN LAB BLOOD ORDERABLES Final R esult Performing Organization Address [facility] Co de Phone Number [facility] [address] [place] [address] * Sodium, urine, random (02/19/2025 11:50 AM EDT) Sodium, Urine 57 mmol/L 02/19/2025 12:53 PM EDT [facility] Urine Urine specimen obtained by clean catch procedure / Unknown Non-blood Collection / Unknown 02/19/2025 11:50 AM EDT 02/19/2025 12:09 PM EDT Anaya Hdez MD LAB URINE ORDERABLES Final Resul t Performing Organization Address [facility] de Phone Number [facility] [address] [place] [address] * Osmolality, urine (02/19/2025 11:50 AM EDT) Osmolality, Urine 441 50 - 1,200 mOsm/kg 02/19/2025 12:55 PM EDT [facility] Urine Urine specimen obtained by clean catch procedure / Unknown Non-blood Collection / Unknown 02/19/2025 11:50 AM EDT 02/19/2025 12:09 PM EDT us Anaya Hdez MD LAB URINE ORDERABLES Final Resul t Performing Organization Address City/[facility] Co de Phone Number [facility] [address] [place] [address] * Creatinine, urine, random (02/19/2025 11:50 AM EDT) Creatinine, Urine 77 mg/dL 02/19/2025 12:53 PM EDT [facility] Urine Urine specimen obtained by clean catch procedure / Unknown Non-blood Collection / Unknown 02/19/2025 11:50 AM EDT 02/19/2025 12:09 PM EDT us Anaya Hdez MD LAB URINE ORDERABLES Final Resul t Performing Organization Address [facility] Co de Phone Number [facility] [address] [place] [address] * (ABNORMAL) Osmolality (02/19/2025 4:03 AM EDT) Osmolality, Serum 275(L) 280 - 301 mOsm/Kg 02/19/2025 11:41 AM EDT [facility] Blood Venous blood specimen / Unknown Venipuncture / Unknown 02/19/2025 4:03 AM EDT 02/19/2025 4:23 AM EDT us Anaya Hdez MD LAB BLOOD ORDERABLES Final Resul t Performing Organization Address [facility] Co de Phone Number [facility] [address] [place] [address] * MR Brain Neurofunctional Test w Physician [...] margins. 3. Components of the corticospinal tract (BUSINESS TECHNOLOGY ANALYST) have immediate proximity to the medial tumor margin. CRITICAL RESULT: No. COMMUNICATION: Per this written report. Drafted by Aurelio Brown MD on 02/18/2025 1:16 PM Final report signed by Aurelio Brown MD on 02/18/2025 6:45 PM Narrative 02/18/2025 6:45 PM EDT CLINICAL INDICATION: Presurgical planning, fMRI speech and motor. METAL TRIMMER neoplasm. TECHNIQUE: Anatomical MRI: 1 mm isotropic [...] margins. DTI Motor: The left corticospinal tract (BUSINESS TECHNOLOGY ANALYST) is displaced medially. The BUSINESS TECHNOLOGY ANALYST has proximity to the medial tumor margin at the level of ordaz radiata and the posterior limb of the internal capsule. The relatively more posterior portion of the BUSINESS TECHNOLOGY ANALYST has immediate proximity, while the more anterior portion of the BUSINESS TECHNOLOGY ANALYST has close proximity with 3 mm [id number] distance. DTI Language: The left superior longitudinal [...] completion language DTI fiber tracking: blue = BUSINESS TECHNOLOGY ANALYST red = SLF Images were created in [facility] and then exported to PACS as burned in images. Saved Plan of fibertracking results will be found on the [facility] time study observer under the name fMRI_DTI Final. Procedure Note Aurelio Brown MD - 02/18/2025 CLINICAL INDICATION: Presurgical planning, fMRI speech and motor. METAL TRIMMER neoplasm. TECHNIQUE: Anatomical MRI: 1 mm isotropic [...] margins. DTI Motor: The left corticospinal tract (BUSINESS TECHNOLOGY ANALYST) is displaced medially. TheCST has proximity to the medial tumor margin at the level of coronaradiata and the posterior limb of the internal capsule. The relativelymore posterior portion of the BUSINESS TECHNOLOGY ANALYST has immediate proximity, while the moreanterior portion of the BUSINESS TECHNOLOGY ANALYST has close proximity with 3 mm [id number]-wauieufrnsidd. DTI Language: The left superior longitudinal fasciculus [...] completion language DTI fiber tracking: blue = BUSINESS TECHNOLOGY ANALYST red = SLF Images were created in [...] margins. 3. Components of the corticospinal tract (BUSINESS TECHNOLOGY ANALYST) have immediate proximity tothe medial tumor margin. [...] <0.11 <1.00 IU/mL 02/16/2025 10:[address] [facility] Blood Venous blood specimen / Unknown Venipuncture / Unknown 02/16/2025 9:51 PM EDT 02/16/2025 10:[address] [facility] - 02/16/2025 10:30 PM EDT Therapeutic Range: UFH Full Dose and ACS/TN protocols*: 0.30 - 0.70 IU/mL UFH Low Dose protocol*: 0.25 - 0.50 IU/mL UFH prophylaxis: Not established Maximus Ambrocio DO LAB BLOOD ORDERABLES Final Res ult [facility] [address] [place] [address] * CT Abdomen Pelvis w IV Contrast [...] Total DLP (Dose-Length Product): 1500.35 mGy.cm (accession [id number]), 1500.35 mGy.cm (accession [id number]). Please note: The reported value represents the [...] Total DLP (Dose-Length Product): 1500.35 mGy.cm (accession [id number]),1500.35 mGy.cm (accession [id number]). Please note: The reported valuerepresents the total [...] Total DLP (Dose-Length Product): 1500.35 mGy.cm (accession [id number]), 1500.35 mGy.cm (accession [id number]). Please note: The reported value represents the [...] Total DLP (Dose-Length Product): 1500.35 mGy.cm (accession [id number]),1500.35 mGy.cm (accession [id number]). Please note: The reported valuerepresents the total [...] - 418 PRU 02/16/2025 7:43 PM EDT [facility] Blood Venous blood specimen / Unknown Venipuncture / Unknown 02/16/2025 7:25 PM EDT 02/16/2025 7:31 PM EDT Narrative [facility] - 02/16/2025 7:43 PM EDT [...] to the clinician. Testing performed in the [facility] Co[facility]. us Maixmus Ambrocio DO LAB BLOOD ORDERABLES Final Res ult [facility] [address] [place] [address] * CT Head w and wo IV [...] 5:54 PM by Tanmay Alex MD via [employer] Secure Chat. Drafted by Tanmay Alex MD [...] TOTAL DLP (Dose-Length Product): 743.50 mGy.cm (accession [id number]), 743.50 mGy.cm (accession [id number]), 743.50 mGy.cm (accession [id number]). Please note: The reported value represents the [...] No aneurysm of either internal carotid artery. [place] of [place] and Major Peripheral Branches: There [...] TOTAL DLP (Dose-Length Product): 743.50 mGy.cm (accession [id number]),743.50 mGy.cm (accession [id number]), 743.50 mGy.cm (accession [id number]).Please note: The reported value represents the total [...] arteries: Multifocal moderate stenosis at the proximal Q1ohuqeus of the right vertebral artery. Mild stenosis [...] No aneurysm of either internal carotid artery. [place] and Major Peripheral Branches: There [...] 02/16/2025 5:54 PMby Tanmay Alex MD via [employer] Secure Chat. Drafted by Tanmay Alex MD on 02/16/2025 5:51 PM Final report signed by Tanmay Alex MD on 02/16/2025 6:18 PM us Maximus Ambrocio DO IMG CT PROCEDURES Final Result * Hepatitis C Antibody - ED (09/22/2024 10:51 AM EST) Hepatitis C Antibody Negative Negative 09/22/2024 11:45 AM EST [facility] Blood Venous blood specimen / Unknown Venipuncture / Unknown 09/22/2024 10:51 AM EST 09/22/2024 11:04 AM EST Kami Amin DO LAB BLOOD ORDERABLES Final Re sult [facility] [address] [place] [address] from Last 3 Months or Most Recently Relevant to Health Maintenance [place] [place] [address] [place] [address] Advance Directives * Full Code (Latest Code [...] Patient has decision-making capacity? Yes Care Teams Mens Locker Room Attendant Relationship Specialty Start Date End Date Caroline Shultz APRN [address] [place] [address] PCP - General 09/22/24
--- OUTSIDE RECORDS SUMMARY | 2025-03-19 11:58 | XMS_ITS | Encounter Summary ---
Author Organization Healthcare Address [address] [place] [address] Care Team Providers Care Electrical And Radio Aircraft Mechanic Name Role Phone Carrington Caroline Campbell APRN Primary Care Provider +1- [phone] Encounter Details Date Type Department Care Team [...] any time in the past 12 m [facility], were you homeless or [...] any time in the past 12 m [facility], were you homeless or [...] [facility] [address] [facility] [place] [address] 03/23/2025 2:00 PM EDT Office Visit Pav [facility] [address] [facility] [place] [address] Chente Sebastian MD [address] [facility] [address] [place] [phone] 07/06/2025 9:30 AM EDT Office Visit [facility] [address], [address] [place] [address] Sanchez Zaldivar MD [address] [place] [address] documented as of this encounter [...] documented as of this encounter Care Teams Electrical And Radio Aircraft Mechanic Relationship Specialty Start Date End Date Caroline Shultz APRN [address] [place] [address] PCP - General 09/22/24 documented as of this encounter
--- OUTSIDE RECORDS SUMMARY | 2025-03-19 11:58 | XMS_ITS | Encounter Summary ---
Author Organization Healthcare Address [address] [place] [address] Care Team Providers Care Anesthesiology Crna Name Role Phone Carrington Caroline Campbell APRN Primary Care Provider +1- [phone] Encounter Details Date Type Department Care Team [...] time in the past [address] [facility], were you homeless or living in a [facility] (including now)? No 09/23/2024 Humiliation, Afraid, Rape, [...] time in the past [address] [facility], were you homeless or living in a [facility] (including now)? No 02/19/2025 Utilities Answer Date [...] & Respiratory [address] [facility] [place] [address] 03/23/2025 2:00 PM EDT Office Visit Pav [facility] [address] [facility] [place] [address] Chente Sebastian MD [address] [facility] [address] [place] [phone] 07/06/2025 9:30 AM EDT Office Visit [facility] [address] [place] [address] Sanchez Zaldivar MD [address] [place] [address] documented as of this encounter [...] documented as of this encounter Care Teams Anesthesiology Crna Relationship Specialty Start Date End Date Caroline Shultz APRN [address] [place] [address] PCP - General 09/22/24 documented as of this encounter
--- OUTSIDE RECORDS SUMMARY | 2025-03-19 11:58 | XMS_ITS | Encounter Summary ---
Author Organization Healthcare Address [address] [place] [address] Care Team Providers Care Post Doc Fellowship Name Role Phone Caroline Shultz APRN Primary Care Provider [phone]- [phone] Encounter Details Date Type Department Care Team ([facility] st Contact Info) Description 03/05/2025 Telephone [facility] Mult[facility] [address] [place] [address] Sheba Fisher APRN [address] [facility] [address] [place] [address] Social History Tobacco Use Types Packs/Day Years [...] any time in the past 12 m [facility], were you homeless or [...] any time in the past 12 m [facility], were you homeless or living in a skilled nursing (including now)? No 02/19/2025 Utilities Answer Date Recorded In the past 12 months has th e [employer], gas, oil, or water [employer] threatened to shut off services in your [...] Head, Neck & Respiratory [address] [facility], [address]nd [place] [address] 03/23/2025 2:00 PM EDT Office Visit Pav [facility] Head, Neck & Respiratory [address] [facility], [address]nd [place] [address] Chente Sebastian MD [address] [facility] [address] [place] [address] 07/06/2025 9:30 AM EDT Office Visit [place] [facility] [address], [address] [place] [address] Sanchez Zaldivar MD [address] [place] [address] documented as of this encounter Visit Diagnoses [...] documented as of this encounter Care Teams Post Doc Fellowship Relationship Specialty Start Date End Date Caroline Shultz APRN [address] [place] [address] PCP - General 09/22/24 documented as of this encounter
--- OUTSIDE RECORDS SUMMARY | 2025-03-19 11:58 | XMS_ITS | Encounter Summary ---
Author Organization Healthcare Address [address] [place] [address] Care Team Providers Care Hospice Entrance Attendant Name Role Phone Carrington Caroline Campbell APRN Primary Care Provider +1- [phone] Encounter Details Date Type Department Care Team [...] Pav CC Head, Neck & Respiratory [address] [facility], [address] [place] [address] 03/23/2025 2:00 PM EDT Office Visit Pav [facility] Head, Neck & Respiratory [address] [facility], [address] [place] [address] Chente Sebastian MD [address] [facility] [address] [place] [address] 07/06/2025 9:30 AM EDT Office Visit [place] [facility] [address], [address] [place] [address] Sanchez Zaldivar MD [address] [place] [address] documented as of this encounter [...] documented as of this encounter Care Teams Hospice Entrance Attendant Relationship Specialty Start Date End Date Caroline Shultz APRN [address] [place] [address] PCP - General 09/22/24 documented as of this encounter
--- OUTSIDE RECORDS SUMMARY | 2025-03-19 11:58 | XMS_ITS ---
Author Organization [facility] Address [address] [place] [address] Care Team Providers Care Air Brake Worker Name Role Phone Carrington Caroline Adrian MURPHY Primary Care Provider +1- [phone] Active Problems Problem Noted Date Diagnosed Date [...] Normotensive - Sodium Goals: Normonatremia - recommend PT/OT/SUPERVISOR [employer] evaluation - No indication to obtain echo [...] Normotensive - Sodium Goals: Normonatremia - recommend PT/OT/SUPERVISOR PHOS[employer] ACID evaluation - No indication to obtain echo with most recently obtained on 09/2024 - follow-up w/[facility] in 8-12 weeks following [...] Normotensive - Sodium Goals: Normonatremia - recommend PT/OT/SUPERVISOR PHOS[employer] ACID evaluation - No indication to obtain echo with most recently obtained on 09/2024 - follow-up w/[facility] in 8-12 weeks following [...] would like to follow here at the [facility]. - final treatment planning pending final [...] would like to follow here at the [facility]. - final treatment planning pending final [...] would like to follow here at the [facility]. - final treatment planning pending final [...] would like to follow here at the [facility]. - final treatment planning pending final [...] to monitor Current Treatment and Therapy Plans Temozolomide with XRT* Plan Start Date:03/18/2025 Plan Provider:Chente Sebastian MD Linked Problems Glioblastoma multiforme (CMS /HCC) Treatment Medications Current Day (Presc riptions - Planned for 03/18/2025) Next Day (Day 1, Cycle 1 - Planned for 03/19/2025) temozolomide (Temodar) temozolomide (Tem odar) chemo capsule 160 mg No medications scheduled. Past Treatment and Therapy Plans No past plan information found. Lifetime Dose Tracking * Chemical Lifetime Dose Automatic Entry Manual Entr y Fluoro Time 1.1 minutes 1.1 minutes 0 minutes Air Kerma 98 mGy 98 mGy 0 mGy Air Kerma Area Product 545.22 Gym 545.22 Gym 0 Gym
[2025-03-19] MEDS: IOPAMIDOL-370 (76%);100ML BOTTLE 80 ML IV (11:59)
[2025-03-19] MEDS: 0.9 % SODIUM CHLORIDE 50 ML VIAL 40 ML IV (11:59)
[2025-03-19] MEDS: SODIUM CHLORIDE 0.9% 10ML SYR (RAD ONLY) 10 ML IV (11:59)
[2025-03-19 12:08] LABS: Troponin I 0.03 ng/ml (0.00-0.034)
--- NOTE | 2025-03-19 12:28 | PC.NURSE ---
ED SPEAKING WITH [facility]
--- NOTE | 2025-03-19 12:36 | PC.NURSE ---
MD SPEAKING WITH PT AND FAMILY ABOUT POC
--- NOTE | 2025-03-19 12:38 | PC.NURSE ---
called RAD to power share images to [employer] at this time
--- NOTE | 2025-03-19 12:40 | PC.NURSE ---
Calling [facility] MD[facility]
--- NOTE | 2025-03-19 12:47 | PC.NURSE ---
SPEAKING WITH [facility]
--- NOTE | 2025-03-19 14:18 | PC.NURSE ---
Called again due to not getting a return call back for a possible transfer, they said they will have Dr. Escalona call back as soon as possible. Dr. Scooter bourgeois.
--- NOTE | 2025-03-19 14:33 | HMH.EDGENADL ---
Discharge Plan Disposition Patient Disposition: Xfer Short-Term Hosp Prescriptions Prescriptions: No Action valacyclovir [Valtrex] 1 gram tablet 1,000 mg PO Q8H 10 Days Qty: 30 3RF levetiracetam 500 mg tablet 1,500 mg PO BID lisinopril 20 mg tablet 40 mg PO BID nifedipine [Procardia XL] 30 mg tablet extended release 24hr 30 mg PO DAILY omeprazole 20 mg capsule,delayed release(DR/EC) 20 mg PO DAILY Qty: 30 2RF sertraline 50 mg tablet See Rx Instructions .ROUTE .COMPLEX Qty: 30 2RF Dose Instruction: TAKE ONE TABLET BY MOUTH EVERY DAY FOR anxiety/depression Rx Instructions: TAKE ONE TABLET BY MOUTH EVERY DAY FOR anxiety/depression nebivolol 5 mg tablet See Rx Instructions .ROUTE .COMPLEX Qty: 30 2RF Dose Instruction: TAKE ONE TABLET BY MOUTH EVERY DAY Rx Instructions: TAKE ONE TABLET BY MOUTH EVERY DAY aspirin 81 MG tablet,chewable 81 mg PO DAILY Referrals Follow up/Referrals: Mike Shaffer DO [Primary Care Provider, Family Practice] - See instructions Clinical Impressions Clinical Impression: Pulmonary air embolism Stand Alone Forms Stand Alone Forms: Transfer Record - ED Print Language Print Language: Norwegian Discharge ED Provider: Kamari Helms General Adult HPI General Chief complaint: Neuro Symptoms/Deficit Stated complaint: Low BP, facial drooping Time Seen by Provider: 03/19/25 11:31 Mode of Arrival: Wheelchair Source of Information: Patient Description of Symptoms (Recalled from ER Triage Doc. by RN): patient states for the past couple of days she has felt increased tiredness, was at Dr. Jensen office this am when they felt that her right side of face was drooping. [facility] reports she also had a brief episode of slurring speech while on way here that lasted 30 secs, she recently had a tumor removed on her left side of brain. 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 with Dr. Zaldivar, who is presenting to the emergency department today for evaluation of transient ischemic attack. The patient was following up with her primary care physician today and when she did she reported an episode yesterday lasting less than 60 seconds in which she had right-sided facial drooping and dysarthria. She states that today while walking into the doctor's office she had another 62nd episode of right facial drooping and dysarthria with abnormal coordination of the right upper extremity. Upon evaluation by her family practice provider they measured her blood pressure and found that it was low and transferred her here for further evaluation. The patient states that she currently feels as if she is at her baseline. Her daughter does not recognize any facial drooping and the daughter also feels that her speech is normal. She does tell me that since she had her oligodendroglioma removed that she does have intermittent difficulty with word finding. Otherwise the patient is not having any chest pain, lower extremity edema or erythema. She is not currently on any anticoagulation. She does not have a history of hyperlipidemia or diabetes. Related Data Home Medications ?Medication ?Instructions ?Recorded ?Confirmed aspirin 81 mg chewable tablet 81 mg PO DAILY Heart disease 10/24/17 03/19/25 levetiracetam 500 mg tablet 1,500 mg PO BID 10/01/24 03/19/25 lisinopril 20 mg tablet 40 mg PO BID 11/19/24 03/19/25 nifedipine 30 mg tablet,extended 30 mg PO DAILY 03/11/25 03/19/25 release 24 hr (Procardia XL) Previous Rx's ?Medication ?Instructions ?Recorded valacyclovir 1 gram tablet 1,000 mg PO Q8H 10 days #30 tabs 09/19/24 (Valtrex) sertraline 50 mg tablet See Rx Instructions .Route 01/13/25 .COMPLEX #30 tabs nebivolol 5 mg tablet See Rx Instructions .Route 01/19/25 .COMPLEX #30 tabs omeprazole 20 mg capsule,delayed 20 mg PO DAILY #30 caps 03/11/25 release Allergies Allergy/AdvReac Type Severity Reaction Status Date / Time codeine (CODEINE) Allergy Mild Other Verified 03/19/25 10:41 [facility] Disclaimer: The information contained in this section may have been updated after the patient was seen, as this information can be updated by other users. Medical History Tinnitus of both ears Tinnitus Calcaneal spur of both feet History of fracture of right ankle Acquired pes planus of both feet Primary osteoarthritis of both feet Foot pain Surgical History H/O breast biopsy Social History Smoking Status: Never smoker second hand exposure: No alcohol intake: current alcohol intake frequency: 0-2 drinks per day substance use type: denies use current occupational status: other Travel in the last 8 weeks?: None household members: none housing: house current occupation: [employer] current occupational exposures/hazards: No caffeine: Yes Have you lived/traveled outside US in past 30 days?: No Contact w/someone who lives/traveled outside US past 30 days?: No Exposure to someone with infectious disease in past 14 days?: No Do you have a fever (greater than 100.4 F or 38 C)?: No Have you tested positive for COVID-19?: No Exposed to someone with COVID-19 in past 14 days?: No Do you have a sore throat?: No Do you have a cough?: No Do you have any weakness?: No Do you have any diarrhea?: No Are you experiencing any unusual bleeding?: No Do you have any muscle aches/pain?: No Do you have any abdominal pain?: No Are you experiencing loss of taste or smell?: No Other Medical History Have you received the Flu Vaccine for this season: Yes Have you received the Pneumonia Vaccine: No ROS Obtained: Yes Systems reviewed as appropriate & no additional complaints except as documented Physical Exam General General appearance: alert and in no apparent distress Head Head exam: atraumatic and normocephalic Eye Eye exam: Present PERRL and EOMI ENT ENT exam: Present normal oropharynx and mucous membranes moist Neck Neck exam: Present full ROM and trachea midline Respiratory Respiratory exam: Present normal lung sounds bilaterally; Absent respiratory distress Cardiovascular Cardiovascular exam: Present regular rate and normal rhythm Abdominal Exam Abdominal exam: Present soft; Absent tenderness Extremities Exam Extremities exam: Present normal inspection; Absent tenderness Back Exam Back exam: Absent vertebral tenderness Neurological Exam Neurological exam: Present alert and oriented X3 Skin Skin exam: Present warm and dry Medical Decision Making Medical Records Medical records reviewed: Yes I reviewed the patient's medical records. Screening: Per USPSTF and CDC recommendations, given the prevalence of disease in our region, it is our hospital?s policy to screen for HIV and viral Hepatitis for all patients aged 18 and over and those with ongoing risk factors. Timmy Inquiry Pt receiving controlled substance: No Timmy was queried for this patient: No Vital Signs: 03/19/25 11:41 03/19/25 12:00 03/19/25 12:30 Temperature 98.2 F Temperature Source Oral Pulse Rate 73 73 Pulse Rate [Right Radial] 75 Respiratory Rate 16 20 16 Blood Pressure 127/63 122/65 Blood Pressure [Right Arm] 115/63 Blood Pressure Mean [Right Arm] 80 Blood Pressure Source [Right Arm] Automatic Cuff Blood Pressure Position Blood Pressure Position [Right Arm] Supine 02 Sat by Pulse Oximetry 93 L 97 94 L Oxygen Delivery Method Room Air 03/19/25 12:34 03/19/25 13:11 03/19/25 13:30 Temperature Temperature Source Pulse Rate 76 73 69 Pulse Rate [Right Radial] Respiratory Rate 16 22 12 Blood Pressure 126/68 116/65 116/64 Blood Pressure [Right Arm] Blood Pressure Mean [Right Arm] Blood Pressure Source [Right Arm] Blood Pressure Position Blood Pressure Position [Right Arm] 02 Sat by Pulse Oximetry 95 94 L 92 L Oxygen Delivery Method 03/19/25 13:37 03/19/25 14:00 03/19/25 14:31 Temperature Temperature Source Pulse Rate 68 73 71 Pulse Rate [Right Radial] Respiratory Rate 18 17 14 Blood Pressure 116/64 127/63 125/53 L Blood Pressure [Right Arm] Blood Pressure Mean [Right Arm] Blood Pressure Source [Right Arm] Blood Pressure Position Blood Pressure Position [Right Arm] 02 Sat by Pulse Oximetry 93 L 98 96 Oxygen Delivery Method Room Air 03/19/25 15:34 03/19/25 15:54 Temperature 98.9 F 98.1 F Temperature Source Oral Pulse Rate 71 71 Pulse Rate [Right Radial] Respiratory Rate 15 18 Blood Pressure 125/46 L 125/46 L Blood Pressure [Right Arm] Blood Pressure Mean [Right Arm] Blood Pressure Source [Right Arm] Blood Pressure Position Supine Blood Pressure Position [Right Arm] 02 Sat by Pulse Oximetry 91 L Oxygen Delivery Method Room Air Room Air Lab Data Lab Results 03/19/25 11:35: WBC 8.0, RBC 4.00 L, Hgb 11.3 L, Hct 34.0 L, MCV 85.0, MCH 28.3, MCHC 33.2, RDW 13.1, Plt Count 280, MPV 9.8, Neut % (Auto) 70.0, Lymph % (Auto) 15.0, Bandera % (Auto) 10.4 H, Eos % (Auto) 3.9, Baso % (Auto) 0.2, Neut # (Auto) 5.6, Lymph # (Auto) 1.2, Bandera # (Auto) 0.8, Eos # (Auto) 0.3, Baso # (Auto) 0.0, PT 11.2, INR 1.01, APTT 24.9, Sodium 137, Potassium 4.2, Chloride 99, Carbon Dioxide 27, Anion Gap 15.2 H, BUN 18 H, Creatinine 0.60, Estimated Creat Clear 101, Estimated GFR 100, Est GFR ( Amer) 121, Glucose 119 H, Calcium 9.4, Total Bilirubin 0.5, AST 31, ALT 44, Alkaline Phosphatase 184 H, Troponin I 0.03, Total Protein 6.9, Albumin 4.0, Globulin 2.9, Albumin/Globulin Ratio 1.4 03/19/25 14:39: Troponin I 0.03 03/19/25 11:35 03/19/25 11:35 Orders (Tests/Meds): ED MEDICATIONS Discontinued Medications Generic Name Dose Route Start Last Admin Trade Name Freq PRN Reason Stop Dose Admin Enoxaparin Sodium 120 mg 03/19/25 15:30 03/19/25 15:51 Enoxaparin 120mg/0.8ml Syringe SUBCUT 03/19/25 15:31 120 mg ONCE ONE Administration Iopamidol 80 ml 03/19/25 11:58 03/19/25 11:59 Iopamidol-370 (76%);100ml Bottle IV 03/19/25 11:59 80 ml ONCE ONE Administration Iopamidol 80 ml 03/19/25 11:58 Iopamidol-370 (76%);100ml Bottle IV 03/19/25 11:59 ONCE ONE Miscellaneous 1 each 03/19/25 11:39 Consider Pt For Statin At Discharge-Stroke NOTAPPLIC 04/18/25 11:38 NEEDED PRN Reminder for med @discharge Sodium Chloride 40 ml 03/19/25 11:58 03/19/25 11:59 0.9 % Sodium Chloride 50 Ml Vial IV 03/19/25 11:59 40 ml ONCE ONE Administration Sodium Chloride 10 ml 03/19/25 11:58 03/19/25 11:59 Sodium Chloride 0.9% 10ml Syr (Rad Only) IV 04/18/25 11:57 10 ml NEEDED PRN Administration Maintain IV Site Sodium Chloride 40 ml 03/19/25 11:58 0.9 % Sodium Chloride 50 Ml Vial IV 03/19/25 11:59 ONCE ONE Sodium Chloride 10 ml 03/19/25 11:58 Sodium Chloride 0.9% 10ml Syr (Rad Only) IV 03/19/25 11:59 ONCE ONE ORDERS Category Date Time Status CT angio head Stat Cat Scan 03/19/25 11:[address] angio neck Stat Cat Scan 03/19/25 11:[address] head/brain wo con Stat Cat Scan 03/19/25 11:39 Completed POCUS Point of Care (ER Only) Stat Exams 03/19/25 15:02 Completed Activated Partial Thrombo Time Stat Lab 03/19/25 11:35 Completed CBC w/Auto Diff [Complete Blood Count Auto Diff] Stat Lab 03/19/25 11:35 Completed CMP [Comprehensive Metabolic Panel] Stat Lab 03/19/25 11:35 Completed Prothrombin Time INR Stat Lab 03/19/25 11:35 Completed Trop I [Troponin I] Stat Lab 03/19/25 11:35 Completed Troponin I Q3H Lab 03/19/25 14:39 Completed ECG Data Tracing #1: EKG personally interpreted by me demonstrates normal sinus rhythm with a rate of 75 bpm, normal axis, no WI prolongation, narrow QRS, no QTc prolongation. No ST elevation or depression. No overt signs of ischemia or arrhythmia. Medical Decision Narrative: In summary, this is a 64-year-old female patient, with past medical history of hypertension and oligodendroglioma status post resection on February 24 at , who is presented to the emergency department today for evaluation of potential TIA. The patient had reportedly noticed episodes less than 60 seconds at a time of which she was having dysarthria and right-sided facial drooping with difficulty of coordination of the right hand. On initial evaluation of the patient they were resting comfortably in no acute distress and nontoxic in appearance. They are hemodynamically stable, saturating well room air, and are neurologically intact. On initial evaluation of the patient her NIH is 0. Cranial nerves II through XII are intact. She has no dysarthria. Her speech and language are normal. She has no extinction bilaterally. She has 5 out of 5 strength in her bilateral upper and lower extremities. She has no evidence of pronator drift. She has no difficulty with finger-nose testing. Differential diagnosis included transient ischemic attack, recurrence of her brain tumor, cerebral edema, ACS/MS, orthostatic hypotension, electrolyte derangement, acute kidney injury, among others Workup was initiated with hematologic labs as well as a CTA of the head and neck and a CT head without contrast. Labs personally interpreted by me demonstrate no actionable abnormalities. Initial troponin is 0.03 and her delta troponin is also 0.03. There is no evidence of myocardial ischemia. CTA of the head and neck was obtained and interpreted by radiology. They state that there is postoperative changes in her surgical bed of the left temporal lobe. In addition to this the scan did catch the upper part of the lungs which revealed filling defects in the left main pulmonary artery and smaller emboli in the upper pulmonary artery branches. In light of this CT read, I did perform a bedside POCUS assessment. The patient has a normal ejection fraction. Her RV to LV ratio is less than 1. She has no pericardial effusion. There is no D sign present. Her TAPSE is 23. She does not have any evidence of right heart strain based on bedside POCUS assessment. Given that this patient is less than 1 month out from significant brain surgery, I do not feel comfortable empirically anticoagulating the patient. Therefore I did have an interactive discussion with the neurosurgeon on-call at the [facility]. Dr. Escalona recommended anticoagulation for the pulmonary embolism, however he also requested that she have a CT scan in 24 hours to ensure that she does not have any interval intracranial hemorrhages. Given that this is obviously a high risk intervention I feel that she would be best suited for management of the [facility] where neurosurgery can be present intervene if she were to develop an intracranial hemorrhage in the setting of anticoagulation for her pulmonary embolism. After further discussion with the patient she also agrees with this plan. We have elected to transfer the patient to the [facility] via EMS. At the time of transfer we did treat her with 100 mg of Lovenox for therapeutic dosing to treat her pulmonary embolus. Patient was ultimately transferred in stable condition Critical Care Critical Care Time Critical Care Time: No
--- NOTE | 2025-03-19 14:39 | PC.NURSE ---
DR GONZALEZ AT BEDSIDE TO UPDATE PT AND FAMILY
[2025-03-19 15:11] LABS: Troponin I 0.03 ng/ml (0.00-0.034)
--- NOTE | 2025-03-19 15:11 | PC.NURSE ---
Report called to SKY Maynard at Ed.
--- NOTE | 2025-03-19 15:16 | PC.NURSE ---
Contacted [facility] r/t transfer to ED.
[2025-03-19] MEDS: ENOXAPARIN 120MG/0.8ML SYRINGE 120 MG SUBCUT (15:51)
== END 2025-03-19 15:55 | disposition short-term general hospital (02) ==
PROVIDERS: Emergency Provider Student in an Organized Health Care Education/Training Program; PCP Internal Medicine
DX: T79.0XXA Air embolism (traumatic), initial encounter (principal); I10 Essential (primary) hypertension; F32.A Depression, unspecified
CPT/HCPCS: 70450; 70496; 70498; 80053; 84484; 85025; 85610; 85730; 93005; 99285; J1650; Q9967

== ENCOUNTER 2025-08-22 05:05 | Observation (INO) | payer OTHER, MEDICARE, SELFPAY ==
--- OUTSIDE RECORDS SUMMARY | 2025-07-01 08:15 | XMS_ITS | Encounter Summary ---
Author Organization Healthcare Address [address] [place] [address] Care Team Providers Care Grease Rack Worker Name Role Phone System, Provider Not In MD Primary Care Provider Unavailable Miguel Perez MD Unavailable [phone] Reason for Visit * Reason Comments Labs Encounter Details Date Type Department Care Team (Latest Contact Info) Description 07/01/2025 9:15 AM EDT Clinical Support [facility] [address] [place] [address] Glioblastoma multiforme (CMS/HCC) Social History Tobacco Use [...] living in a correction (including now)? No 03/23/2025 CAGE ASSESSMENT Answer [...] drink first t carroll in the morning (EYE-DIAPER MACHINE TENDER) to steady your nerves or to get [...] Upcoming Encounters Date Type Department Care Team ([facility] st Contact Info) Description 08/31/2025 8:15 AM EST Clinical Support [facility] [address] [address] 08/31/2025 8:30 AM EST Office Visit [facility] [address] [address] Gabe Cifuentes, SPECIAL EDUCATION MATH TEACHER 800 [facility] [address] [place] [address] 08/31/2025 10:00 AM EST Appointment [facility] [address] [place] [phone] 09/21/2025 9:15 AM EST Clinical Support [facility] [address] [address] 09/21/2025 9:30 AM EST Office Visit [facility] [address] [phone] Gabe Cifuentes, SPECIAL EDUCATION MATH TEACHER 800 [facility] [address] [address] 09/21/2025 11:00 AM EST Appointment [facility] 800 [place] [address] 10/05/2025 9:00 AM EST Office Visit [facility] [address] [phone] Sanchez Zaldivar MD [address] [facility] [address] [place] [address] 10/05/2025 11:00 AM EST Consult [place] [facility] [address], 1[address] [place] [address] Shy Marquez, SPECIAL EDUCATION MATH TEACHER [address] [place] [address] documented as of this encounter [...] LAB HEMATOLOGY METHOD 07/01/2025 10:09 AM EDT [facility] RBC Count 4.86 3.90 - 5.20 10*6/uL LAB HEMATOLOGY METHOD 07/01/2025 10:09 AM EDT [facility] HGB 13.4 11.2 - 15.7 g/dL LAB HEMATOLOGY METHOD 07/01/2025 10:09 AM EDT [facility] HCT 40.1 34.0 - 45.0 % LAB HEMATOLOGY METHOD 07/01/2025 10:09 AM EDT [facility] Platelet Count 264 155 - 369 10*3/uL LAB HEMATOLOGY METHOD 07/01/2025 10:09 AM EDT [facility] MCV 83 79 - 98 fL LAB HEMATOLOGY METHOD 07/01/2025 10:09 AM EDT [facility] MCH 27.6 26.0 - 32.0 pg LAB HEMATOLOGY METHOD 07/01/2025 10:09 AM EDT [facility] MCHC 33.4 30.7 - 35.5 g/dL LAB HEMATOLOGY METHOD 07/01/2025 10:09 AM EDT [facility] RDW 14.2 11.5 - 14.5 % LAB HEMATOLOGY METHOD 07/01/2025 10:09 AM EDT [facility] MPV 10.1 8.8 - 12.5 fL LAB HEMATOLOGY METHOD 07/01/2025 10:09 AM EDT [facility] nRBC 0.0 <=0.0 per 100 WBCs LAB HEMATOLOGY METHOD 07/01/2025 10:09 AM EDT [facility] Differential Type Automated LAB HEMATOLOGY METHOD 07/01/2025 10:09 AM EDT [facility] Neutrophils % 57 % LAB HEMATOLOGY METHOD 07/01/2025 10:09 AM EDT [facility] Lymphocytes % 27 % LAB HEMATOLOGY METHOD 07/01/2025 10:09 AM EDT [facility] Monocytes % 12 % LAB HEMATOLOGY METHOD 07/01/2025 10:09 AM EDT [facility] Eosinophils % 3 % LAB HEMATOLOGY METHOD 07/01/2025 10:09 AM EDT [facility] Basophils % 1 % LAB HEMATOLOGY METHOD 07/01/2025 10:09 AM EDT [facility] Immature Granulocytes % 0 % LAB HEMATOLOGY METHOD 07/01/2025 10:09 AM EDT [facility] Neutrophils Absolute 2.67 1.60 - 6.10 10*3/uL LAB HEMATOLOGY METHOD 07/01/2025 10:09 AM EDT [facility] Lymphocytes Absolute 1.28 1.20 - 3.90 10*3/uL LAB HEMATOLOGY METHOD 07/01/2025 10:09 AM EDT [facility] Monocytes Absolute 0.57 0.30 - 0.90 10*3/uL LAB HEMATOLOGY METHOD 07/01/2025 10:09 AM EDT [facility] Eosinophils Absolute 0.14 0.00 - 0.50 10*3/uL LAB HEMATOLOGY METHOD 07/01/2025 10:09 AM EDT [facility] Basophils Absolute 0.04 0.00 - 0.10 10*3/uL LAB HEMATOLOGY METHOD 07/01/2025 10:09 AM EDT [facility] Immature Granulocytes Absolute 0.01 0.00 - 0.06 10*3/uL LAB HEMATOLOGY METHOD 07/01/2025 10:09 AM EDT [facility] Blood Venous blood specimen / Unknown Venipuncture / Unknown 07/01/2025 9:34 AM EDT 07/01/2025 9:58 AM EDT Narrative [facility] - 07/01/2025 10:09 AM EDT Therapeutic decision making should be based on absolute values, rather than percentages. us Chente Sebastian MD LAB BLOOD ORDERABLES Final Res ult [facility] [address] [place] [address] * (ABNORMAL) Comprehensive metabolic panel (07/01/2025 9:34 AM EDT) Glucose, Plasma 109(H) 74 - 99 mg/dL 07/01/2025 10:33 AM EDT [facility] BUN, Plasma 12 8 - 23 mg/dL 07/01/2025 10:33 AM EDT [facility] Creatinine, Plasma 0.56(L) 0.60 - 1.10 mg/dL 07/01/2025 10:33 AM EDT [facility] BUN/Creatinine Ratio 21 07/01/2025 10:33 AM EDT [facility] Sodium, Plasma 140 136 - 145 mmol/L 07/01/2025 10:33 AM EDT [facility] Potassium, Plasma 3.9 3.6 - 4.9 mmol/L 07/01/2025 10:33 AM EDT [facility] Chloride, Plasma 105 97 - 107 mmol/L 07/01/2025 10:33 AM EDT [facility] CO2, Plasma 24 22 - 29 mmol/L 07/01/2025 10:33 AM EDT [facility] Anion Gap 11 6 - 16 mmol/L 07/01/2025 10:33 AM EDT [facility] Total Calcium, Plasma 9.7 8.9 - 10.2 mg/dL 07/01/2025 10:33 AM EDT [facility] Total Protein 6.9 6.3 - 7.9 g/dL 07/01/2025 10:33 AM EDT [facility] Albumin, Plasma 4.2 3.5 - 5.2 g/dL 07/01/2025 10:33 AM EDT [facility] AST, Plasma 16 10 - 35 U/L 07/01/2025 10:33 AM EDT [facility] ALT, Plasma 13 10 - 35 U/L 07/01/2025 10:33 AM EDT [facility] Alkaline Phosphatase, Plasma 76 46 - 142 U/L 07/01/2025 10:33 AM EDT [facility] Total Bilirubin, Plasma 0.3 0.2 - 1.1 mg/dL 07/01/2025 10:33 AM EDT [facility] eGFRcr 100.2 mL/min/1.7 3m*2 07/01/2025 10:33 AM EDT [facility] Comment:Reported eGFRcr in m L/min/1.73m2 is based the CKD-EPI 2020 equation that does not use a race coefficient. Blood Venous blood specimen / Unknown Venipuncture / Unknown 07/01/2025 9:34 AM EDT 07/01/2025 9:55 AM EDT us Chente Sebastian MD LAB BLOOD ORDERABLES Final Res ult [facility] [address] [place] [address] * TSH (07/01/2025 9:34 AM EDT) Thyroid Stimulating Hormone, Plasma 1.69 0.40 - 4.20 uIU/mL 07/01/2025 10:33 AM EDT [facility] Blood Venous blood specimen / Unknown Venipuncture / Unknown 07/01/2025 9:34 AM EDT 07/01/2025 9:55 AM EDT us Chente Sebastian MD LAB BLOOD ORDERABLES Final Res ult [facility] [address] [place] [address] * T3, Serum (07/01/2025 9:34 AM EDT) T3, Serum 101 87 - 187 ng/dL 07/01/2025 10:33 AM EDT [facility] Blood Venous blood specimen / Unknown Venipuncture / Unknown 07/01/2025 9:34 AM EDT 07/01/2025 9:55 AM EDT us Chente Sebastian MD LAB BLOOD ORDERABLES Final Res ult Performing Organization Address [facility]/ZIP Co de Phone Number [facility] [address] [place] [address] * T4, free (07/01/2025 9:34 AM EDT) Free T4, Plasma 1.3 0.8 - 1.7 ng/dL 07/01/2025 10:33 AM EDT [facility] Blood Venous blood specimen / Unknown Venipuncture / Unknown 07/01/2025 9:34 AM EDT 07/01/2025 9:55 AM EDT us Chente Sebastian MD LAB BLOOD ORDERABLES Final Res ult Performing Organization Address City/[facility] [place] [address] documented in this encounter Visit Diagnoses Diagnosis [...] documented as of this encounter Care Teams Grease Rack Worker Relationship Specialty Start Date End Date System, Provider Not In, [address] [place] [address] PCP - General Family Medicine 03/23/25 Miguel Perez MD [address] [place], [place] [address] [address] Consulting Physician Radiation Oncology 04/09/25 documented as of this encounter
--- OUTSIDE RECORDS SUMMARY | 2025-07-01 08:40 | XMS_ITS | Encounter Summary ---
Author Organization Healthcare Address [address] [place] [address] Care Team Providers Care Fire Claims Adjuster Name Role Phone System, Provider Not In MD Primary Care Provider Unavailable Miguel Perez MD Unavailable Reason for Referral * Medications - Closed Specialty Diagnoses / Procedures [facility] Referred To Contact Diagnoses Glioblastoma multiforme (CMS/HCC) Chente Sebastian MD [address] [address] Phone: tel: fax: Referral ID Status Reason Start Date Expiration Date Visits Re quested Visits Authorized [id number] Closed 1 1 Reason for Visit * Reason Comments Follow-up * Episode Based Medications (Routine) - Authorized Specialty Diagnoses / Procedures [facility] Referred To Contact Diagnoses Glioblastoma multiforme (CMS/HCC) Procedures [id number]: Pembrolizumab or Placebo + Optune Every 21 Days / Temozolomide Every 28 Days Chente Sebastian MD [address] [address] Phone: tel: fax: Chente Sebastian MD [address] [address] Phone: tel: fax: Referral ID Status Reason Start Date Expiration Date V isits Requested Visits Authorized [id number] Authorized 05/29/2025 11/28/2026 1 1 Encounter Details Date Type Department Care Team ([facility] st Contact Info) Description 07/01/2025 9:40 AM EDT Office Visit [facility] [address]nd [place] [address] Chente Sebastian MD 800 [facility] [address] [place] [address] Glioblastoma multiforme (CMS/HCC) (Primary Dx) [...] [facility] the [facility] you [facility] or living in a intermediate (including now)? No 03/23/2025 CAGE ASSESSMENT Answer [...] drink first t carroll in the morning (EYE-TICKET DISPATCHER) to steady your nerves or to get [...] Perez MD on 04/02/2025 Study Patient: Yes [id number]: A Phase 3, Randomized, Double-Blind, Placebo-Controlled Study [...] per GBM-16. TMZ maintenance supply received from [facility] for start of Cycle 1, scheduled for 06/08/25. Labs have been reviewed and are appropriate for treatment on 06/08. 07/01/25: Patient tolerated first adjuvant TMZ maintenance cycle. Labs have been reviewed and are appropriate for next cycle. Will increase TMZ to 200 mg/m2/dose with cycle 2 forward. Updated prescription sent to [facility] today. Labs appropriate for infusion today. [...] No dose adjustments made Rx sent to: [facility] Refills due: if continued beyond 12 [...] is stable We offered access to [facility] We also discussed Phys. Therapy, which she has orders for. We also recommended for her to remain engaged socially. We plan to have her come back as per study and she knows how to get hold of us if he has questions. MD CHAD Lee [facility] 800 [facility] [address] No referring provider defined for this encounter documented in this encounter Plan of Treatment Upcoming Encounters Date Type Department Care Team (Late st Contact Info) Description 08/31/2025 8:15 AM EST Clinical Support [facility] [address] [address] 08/31/2025 8:30 AM EST Office Visit [facility] [address] [address] Gabe Cifuentes, CHIEF STRATEGY OFFICER 800 [facility] [address] [address] 08/31/2025 10:00 AM EST Appointment [facility] 800 [place] [address] 09/21/2025 9:15 AM EST Clinical Support [facility] [address] [address] 09/21/2025 9:30 AM EST Office Visit [facility] [address] [address] Gabe Cifuentes, CHIEF STRATEGY OFFICER [address] [place] [address] 09/21/2025 11:00 AM EST Appointment [facility] [address] [place] [address] 10/05/2025 9:00 AM EST Office Visit [facility] [address], 1st [place] [address] Sanchez Zaldivar MD [address] [place] [address] 10/05/2025 11:00 AM EST Consult [facility] [address], [address] [place] [address] Shy Marquez APRN [address] [place] [address] documented as of this encounter Results * (ABNORMAL) Comprehensive metabolic panel (07/22/2025 1:31 PM EST) Glucose, Plasma 109(H) 74 - 99 mg/dL 07/22/2025 2:27 PM EST [facility] BUN, Plasma 16 8 - 23 mg/dL 07/22/2025 2:27 PM EST [facility] Creatinine, Plasma 0.66 0.60 - 1.10 mg/dL 07/22/2025 2:27 PM EST [facility] BUN/Creatinine Ratio 24 07/22/2025 2:27 PM EST [facility] Sodium, Plasma 140 136 - 145 mmol/L 07/22/2025 2:27 PM EST [facility] Potassium, Plasma 3.9 3.6 - 4.9 mmol/L 07/22/2025 2:27 PM EST [facility] Chloride, Plasma 103 97 - 107 mmol/L 07/22/2025 2:27 PM EST [facility] CO2, Plasma 24 22 - 29 mmol/L 07/22/2025 2:27 PM EST [facility] Anion Gap 13 6 - 16 mmol/L 07/22/2025 2:27 PM EST [facility] Total Calcium, Plasma 9.5 8.9 - 10.2 mg/dL 07/22/2025 2:27 PM EST [facility] Total Protein 7.1 6.3 - 7.9 g/dL 07/22/2025 2:27 PM EST [facility] Albumin, Plasma 4.4 3.5 - 5.2 g/dL 07/22/2025 2:27 PM EST [facility] AST, Plasma 16 10 - 35 U/L 07/22/2025 2:27 PM EST [facility] ALT, Plasma 17 10 - 35 U/L 07/22/2025 2:27 PM EST [facility] Alkaline Phosphatase, Plasma 82 46 - 142 U/L 07/22/2025 2:27 PM EST [facility] Total Bilirubin, Plasma 0.5 0.2 - 1.1 mg/dL 07/22/2025 2:27 PM EST [facility] eGFRcr 96.3 mL/min/1.7 3m*2 07/22/2025 2:27 PM EST [facility] Comment:Reported eGFRcr in m L/min/1.73m2 is based the CKD-EPI 2020 equation that does not use a race coefficient. Blood Venous blood specimen / Unknown Venipuncture / Unknown 07/22/2025 1:31 PM EST 07/22/2025 1:56 PM EST us Chente Sebastian MD LAB BLOOD ORDERABLES Final Res ult [facility] [address] [place] [address] * (ABNORMAL) CBC and differential (07/22/2025 1:31 PM EST) WBC Count 5.79 3.70 - 10.30 10*3/uL LAB HEMATOLOGY METHOD 07/22/2025 2:05 PM EST [facility] RBC Count 4.87 3.90 - 5.20 10*6/uL LAB HEMATOLOGY METHOD 07/22/2025 2:05 PM [facility] HGB 13.2 11.2 - 15.7 g/dL LAB HEMATOLOGY METHOD 07/22/2025 2:05 PM [facility] HCT 41.4 34.0 - 45.0 % LAB HEMATOLOGY METHOD 07/22/2025 2:05 PM [facility] Platelet Count 266 155 - 369 10*3/uL LAB HEMATOLOGY METHOD 07/22/2025 2:05 PM [facility] MCV 85 79 - 98 fL LAB HEMATOLOGY METHOD 07/22/2025 2:05 PM [facility] MCH 27.1 26.0 - 32.0 pg LAB HEMATOLOGY METHOD 07/22/2025 2:05 PM [facility] MCHC 31.9 30.7 - 35.5 g/dL LAB HEMATOLOGY METHOD 07/22/2025 2:05 PM [facility] RDW 14.5 11.5 - 14.5 % LAB HEMATOLOGY METHOD 07/22/2025 2:05 PM [facility] MPV 10.2 8.8 - 12.5 fL LAB HEMATOLOGY METHOD 07/22/2025 2:05 PM [facility] nRBC 0.0 <=0.0 per 100 WBCs LAB HEMATOLOGY METHOD 07/22/2025 2:05 PM [facility] Differential Type Automated LAB HEMATOLOGY METHOD 07/22/2025 2:05 PM [facility] Neutrophils % 70 % LAB HEMATOLOGY METHOD 07/22/2025 2:05 PM [facility] Lymphocytes % 18 % LAB HEMATOLOGY METHOD 07/22/2025 2:05 PM [facility] Monocytes % 9 % LAB HEMATOLOGY METHOD 07/22/2025 2:05 PM [facility] Eosinophils % 3 % LAB HEMATOLOGY METHOD 07/22/2025 2:05 PM [facility] Basophils % 0 % LAB HEMATOLOGY METHOD 07/22/2025 2:05 PM [facility] Immature Granulocytes % 0 % LAB HEMATOLOGY METHOD 07/22/2025 2:05 PM [facility] Neutrophils Absolute 4.05 1.60 - 6.10 10*3/uL LAB HEMATOLOGY METHOD 07/22/2025 2:05 PM [facility] Lymphocytes Absolute 1.05(L) 1.20 - 3.90 10*3/uL LAB HEMATOLOGY METHOD 07/22/2025 2:05 PM EST [facility] Monocytes Absolute 0.50 0.30 - 0.90 10*3/uL LAB HEMATOLOGY METHOD 07/22/2025 2:05 PM EST [facility] Eosinophils Absolute 0.16 0.00 - 0.50 10*3/uL LAB HEMATOLOGY METHOD 07/22/2025 2:05 PM EST [facility] Basophils Absolute 0.01 0.00 - 0.10 10*3/uL LAB HEMATOLOGY METHOD 07/22/2025 2:05 PM EST [facility] Immature Granulocytes Absolute 0.02 0.00 - 0.06 10*3/uL LAB HEMATOLOGY METHOD 07/22/2025 2:05 PM EST [facility] Blood Venous blood specimen / Unknown Venipuncture / Unknown 07/22/2025 1:31 PM EST 07/22/2025 1:56 PM EST Narrative [facility] - 07/22/2025 2:05 PM EST Therapeutic decision making should be based on absolute values, rather than percentages. us Chente Sebastian MD LAB BLOOD ORDERABLES Final Res ult [facility] [address] [place] [address] documented in this encounter Visit Diagnoses Diagnosis [...] documented as of this encounter Care Teams Fire Claims Adjuster Relationship Specialty Start Date End Date System, Provider Not In, [place] [address] PCP - General Family Medicine 03/23/25 Miguel Perez MD [address] [place] [address] [id number] [place] [address] Consulting Physician Radiation Oncology 04/09/25 documented as of this encounter
--- OUTSIDE RECORDS SUMMARY | 2025-07-01 09:21 | XMS_ITS | Encounter Summary ---
Author Organization Healthcare Address [address] [place] [address] Care Team Providers Care Watch Technician Name Role Phone System, Provider Not In MD Primary Care Provider Unavailable Miguel Perez MD Unavailable [phone] Reason for Referral * Imaging (Urgent) - Closed Specialty Diagnoses / Procedures Referred By Contac t Referred To Contact Cardiology Diagnoses Pain and swelling of lower extremity, unspecified laterality Procedures VAS US Venous Duplex Lower Extremity Bilateral Chente Sebastian MD [address] [address] Phone: tel: fax: Referral ID Status Reason Start Date Expiration Date V isits Requested Visits Authorized [id number] Closed Perform Procedure 07/01/2025 12/31/2026 1 1 Reason for Visit * Imaging (Urgent) - Closed Specialty Diagnoses / Procedures Referred By Contac t Referred To Contact Cardiology Diagnoses Pain and swelling of lower extremity, unspecified laterality Procedures VAS US Venous Duplex Lower Extremity Bilateral Chente Sebastian MD [address] [address] Phone: tel: fax: Referral ID Status Reason Start Date Expiration Date V isits Requested Visits Authorized [id number] Closed Perform Procedure 07/01/2025 12/31/2026 1 1 Encounter Details Date Type Department Care Team (Latest Contact Info) Description 07/01/2025 10:21 AM EDT - 07/01/2025 10:59 AM EDT Hospital Encounter [facility] Lab [address] [facility] 5th Floor [address] [place] [address] Pain and swelling of lower extremity, unspecified [...] any time in the past 12 m [facility], were you homeless or living in a longterm (including now)? No 03/23/2025 CAGE ASSESSMENT Answer [...] drink first t carroll in the morning (EYE-GEOMATICS PROFESSOR) to steady your nerves or to get [...] tablet by mouth daily. 06/01/2025 Ascorbic Acid 27261 MG/30ML solution Infuse 87.5 g into a [...] [facility] [address] [facility], 2nd [place] [address] 08/31/2025 8:30 AM EST Office Visit [facility] [address] [facility], 2nd [place] [address] Gabe Cifuentes, DIAPHRAGM BUILDER [address] [facility] [address] [facility] [address] [place] [address] 08/31/2025 10:00 AM EST Appointment [facility] 800 [place] [phone] 09/21/2025 9:15 AM EST Clinical Support [facility] [address] [facility], 2nd [place] [address] 09/21/2025 9:30 AM EST Office Visit [facility] [address] [facility], 2nd [place] [address] Gabe Cifuentes, DIAPHRAGM BUILDER 800 [facility] [address] [place] [address] 09/21/2025 11:00 AM EST Appointment [facility] [address] [address] 10/05/2025 9:00 AM EST Office Visit [facility] [address], 1st [place] [address] Sanchez Zaldivar MD [address] [place] [address] 10/05/2025 11:00 AM EST Consult [facility] [address], [address] [place] [address] Shy Marquez, DIAPHRAGM BUILDER [address] [place] [address] documented as of this encounter Procedures Procedure [...] documented as of this encounter Care Teams Watch Technician Relationship Specialty Start Date End Date System, Provider Not In, [place] [address] PCP - General Family Medicine 03/23/25 Miguel Perez MD [id number] [place] [phone] Consulting Physician Radiation Oncology 04/09/25 documented as of this encounter
--- OUTSIDE RECORDS SUMMARY | 2025-07-01 10:00 | XMS_ITS | Encounter Summary ---
Author Organization Healthcare Address [address] [place] [address] Care Team Providers Care Sound Effects Technician Name Role Phone System, Provider Not In MD Primary Care Provider Unavailable Miguel Perez MD Unavailable [phone] Reason for Visit * Episode Based Medications (Routine) - Authorized Specialty Diagnoses / Procedures Referred By Contac t Referred To Contact Diagnoses Glioblastoma multiforme (CMS/HCC) Procedures [id number]: Pembrolizumab or Placebo + Optune Every 21 Days / Temozolomide Every 28 Days Chente Sebastian MD [address] [place] [address] [address] Conde [address] [address] Phone: tel: fax: Chente Sebastian MD 800 [facility] Liyah Conde [address] [address] Phone: tel: fax: Referral ID Status Reason Start Date Expiration Date V isits Requested Visits Authorized [id number] Authorized 05/29/2025 11/28/2026 1 1 Encounter Details Date Type Department Care Team (Latest Contact Info) Description 07/01/2025 11:00 AM EDT - 07/01/2025 11:59 PM EDT Hospital Encounter [facility] 800 [place] [address] Glioblastoma multiforme (CMS/HCC) (Primary Dx) Discharge Disposition: [...] drink first t carroll in the morning (EYE-LOAF COUNTER) to steady your nerves or to get [...] tablet by mouth daily. 06/01/2025 Ascorbic Acid 39951 MG/30ML solution Infuse 87.5 g into a [...] Upcoming Encounters Date Type Department Care Team ([facility] st Contact Info) Description 08/31/2025 8:15 AM EST Clinical Support [facility] 800 [facility] [address] 08/31/2025 8:30 AM EST Office Visit [facility] [address] [phone] Gabe Cifuentes, MATERIAL EXPEDITER 800 [facility] [address] [place] [address] 08/31/2025 10:00 AM EST Appointment [facility] 800 [place] [address] 09/21/2025 9:15 AM EST Clinical Support [facility] [address] [address] 09/21/2025 9:30 AM EST Office Visit [facility] [address] [phone] Gabe Cifuentes, MATERIAL EXPEDITER 800 [facility] [address] [place] [address] 09/21/2025 11:00 AM EST Appointment [facility] [address] [phone] 10/05/2025 9:00 AM EST Office Visit [facility] [address], [address] [place] [phone] Sanchez Zaldivar MD [address] [place] [phone] 10/05/2025 11:00 AM EST Consult [facility] [address], [address] [place] [phone] Shy Marquez APRN [address] [place] [address] documented as of this encounter Visit Diagnoses [...] documented as of this encounter Care Teams Sound Effects Technician Relationship Specialty Start Date End Date System, Provider Not In, [place] [address] PCP - General Family Medicine 03/23/25 Miguel Perez MD [address] [place] [address] [address] [place] [address] Consulting Physician Radiation Oncology 04/09/25 documented as of this encounter
--- OUTSIDE RECORDS SUMMARY | 2025-07-06 08:30 | XMS_ITS | Encounter Summary ---
Author Organization Healthcare Address [address] [place] [address] Care Team Providers Care Precision Assembly Inspector Name Role Phone System, Provider Not In MD Primary Care Provider Unavailable Miguel Perez MD Unavailable [phone] Encounter Details Date Type Department Care Team (Late st Contact Info) Description 07/06/2025 9:30 AM EDT Office Visit [place] [facility] [address], [address] [place] [address] Sanchez Zaldivar MD [address] [place] [address] Glioblastoma multiforme (CMS/HCC) (Primary Dx); Expressive aphasia; Brain mass Social History Tobacco Use Types Packs/Day Years [...] [facility] the [facility] or living in a [...] drink first t carroll in the morning (EYE-TRIMMER MACHINE) to steady your nerves or to get rid of a hangover? 0 03/20/2025 CAGE Questionnaire Score 0 025 Utilities Answer Date Recorded In the past 12 months has e [employer], gas, oil, or water [employer] threatened to shut off services in your home? No 03/23/2025 Comments No Sex and Gender Information Value Date Recorded Sex Assigned at Female 09/22/2024 11:47 AM EST Legal Sex Female 8:04 PM EDT Gender Identity Not on file Sexual Orientation Not on file documented as of this encounter Last Filed Vital Signs Vital Sign Reading Time Taken Comments Blood Pressure 134/90 07/06/2025 9:55 AM EDT Pulse - - Temperature - - Respiratory Rate - - Oxygen Saturation - - Inhaled Oxygen Concentration - - Weight 103 kg (227 lb) 07/06/2025 9:55 AM EDT Height 167.6 cm (5' 6 ) 07/06/2025 9:55 AM EDT Body Mass Index 36.64 07/06/2025 9:55 AM EDT documented in this encounter Miscellaneous Notes * Addendum Note - Sanchez Zaldivar MD - 07/06/2025 9:30 AM EDTAddended by: SANCHEZ ZALDIVAR on: 07/06/2025 06:21 PM Modules accepted: Level of Service * Progress Notes - Yessenia Goel, JFEFREY, DNP - 07/06/2025 9:30 AM EDT We had the pleasure of seeing your patient in our clinic today for continued Neurosurgical Oncologyevaluation. Chief Complaint 3 month followup Grade 3 Left insular oligodendroglioma History Of Present Illness Herminia Murrell is a 65 y.o. female with history of HTN, T2DM, depression, GERD with history of expressive aphasia and was found to have a left insular mass after presenting to [facility] with neurologic symptoms. Patient proceeded to the operating room on 02/24/25 and underwent left temporal craniotomy fortumor resection. Path shows oligodendroglioma (grade 3 WHO). Patient with ongoing care with radiation oncology undergoing adjuvant chemoradiation with CT simulation. At discharge she was having significant word-finding difficulty and intermittent aphasia, which has now fully resolved. She remains on Keppra but denies any erasmo seizures or other neurologic symptoms. States since surgery her right ear has had some numbness, but never fully resolved. No hearing loss with this. She did have a right lower extremity extensive DVT for which she is on Eliquis at this time and being monitored and treated by Dr. Sebastian. Past Medical History She has a past medical history of Brain bleed (09/02/2024), Brain tumor (02/16/25), Cancer (CMS/HCC) (02/16/2025), Headache, and Hypertension. Surgical History She has a past surgical history that includes Craniotomy (Left, 02/24/2025) and Breast lumpectomy (Bilateral, 2001). Family History Family History[1] Social History She reports that she has never smoked. She has never been exposed to tobacco smoke. She has never used smokeless tobacco. She reports that she does not drink alcohol and does not use drugs. Medications Current Medications[2] Allergies Codeine Review of Systems 14 point review of systems was performed and was negative except as noted per HPI. Physical Exam -Constitutional: Well developed, well nourished. No acute distress. Alert and oriented to person, place, and time. Appropriate memory, attention span, and insight. Normal coordination noted. -Head, Eyes, Nose, Throat: Normocephalic, atraumatic. Pupils are equally round and reactive to light. Extra-ocular movements are intact without nystagmus. Oral mucosa is pink and moist. -Musculoskeletal: Strength is 5/5 bilaterally. Gait is steady and independent without spasticity. -Extremities: There is no clubbing, cyanosis, or edema. There is no pronator drift. -Neurologic: Alert and Oriented to person, place, and time. Speech is fluent. Patient follows commands and interacts appropriately. No tremor noted. -Cranial Nerves: Cranial Nerves II through XII were tested and are intact. CN II: Visual cramer full to confrontation. PERRL. CN III, IV, : EOMI without nystagmus. No ptosis evident. CN V: Jaw clenching intact bilaterally. Facial sensation intact bilaterally. CN VII: No asymmetry in facial expression. CN VIII: Hearing is intact. CN IX and X: Uvula is midline. Soft palate elevates symmetrically. Voice is intact without hoarseness. CN XI: Shoulder shrug is intact. Trapezius and SCM muscles are intact to direct testing. CN XII: Tongue is midline without evidence of deviation, atrophy, or fasciculation. Last Recorded Vitals Visit Vitals BP (!) 134/90 Ht 1.676 m (5' 6 ) Wt 103 kg (227 lb) BMI 36.64 kg/m?? OB Status Postmenopausal Smoking Status Never BSA 2.19 m?? Labs Results from last 7 days Lab Units 07/01/25 0934 SODIUM mmol/L 140 POTASSIUM mmol/L 3.9 CHLORIDE mmol/L 105 CO2 mmol/L 24 BUN mg/dL 12 CREATININE mg/dL 0.56* EGFR mL/min/1.73m*2 100.2 GLUCOSE mg/dL 109* CALCIUM mg/dL 9.7 Results from last 7 days Lab Units 07/01/25 0934 ALKALINE PHOSPHATASE U/L 76 BILIRUBIN TOTAL mg/dL 0.3 ALT U/L 13 AST U/L 16 Results from last 7 days Lab Units 07/01/25 0934 WBC 10*3/uL 4.71 HEMOGLOBIN g/dL 13.4 HEMATOCRIT % 40.1 PLATELETS 10*3/uL 264 Imaging Redemonstration of postoperative findings from resection of a left insular mass. Mass effect in theleft cerebral hemisphere has improved over the interval with resolved midline shift. Expansile FLAIR hyperintensity along the inferior margin of the resection cavity has decreased compared to the 02/25/2025 MRI but persists with new nodular foci of enhancement. These findings could reflect any combination of residual tumor and posttreatment related changes. Enhancement along the margins of the resection cavity is increased compared to prior, which could reflect evolving postoperative and posttreatment changes. However a few sites demonstrate mild thickening and heterogeneity. Attention follow-up is advised to exclude tumor. FLAIR hyperintensity along the superior margin the resection cavity is also mildly increased over the interval. This finding could reflect evolving posttreatment change. However, attention follow-up is advised to exclude nonenhancing tumor. Persistent nonenhancing FLAIR hyperintensity in the posterior left thalamus, possibly reflecting nonenhancing tumor. It is slightly decreased in conspicuity since the prior MRI. Previously described FLAIR hyperintensity involving the left putamen is also decreased with mild residual signal abnormality. New nonenhancing small focus of FLAIR hyperintensity in the left centrum semiovale may reflect posttreatment changes. However attention on follow-up is advised. Assessment and Plan Herminia Murrell is a 65 y.o. female with Grade 3 Left insular oligodendroglioma. She underwent resection on 02/24/[address] Zaldivar and is undergoing adjunctive treatment per Dr. Sebastian. She completed radiation, and continues her chemo regimen at this time. She currently has the Optune device on. Overall she reports tolerating this well. She states she has gotten back to exercise recently, participating in water aerobics in a cancer patient exercise program local to her. The time of today's visitI reviewed her most recent ophthalmology note, her last Hematology Oncology note, and her last MRI brain from May of this year. She also states she started doing some outside work. She is on a k etogenic diet. She is doing well from a neurosurgical perspective at this time, we will plan to seeher back for clinical follow-up in 3 months. She will continue her follow-up and treatment regimen as planned per Dr. Sebatsian at this time. She will continue DVT care per Dr. Parnell recommendations. She has our contact information is free to reach out to us at any time with any concerns she may have. I saw this patient in conjunction with my attending, Dr. Zaldivar, at today's clinic appointment. Yessenia Goel APRN, DNP, CHROME WORKER-C Deparment of Neurosurgery [facility] -- Sanchez Zaldivar MD, FAANS Pharmacy Technician Infusion Epilepsy Surgery, Neuro-Oncology & Skull Base, Pediatric Neurosurgery Director, Adult & Pediatric Epilepsy Surgery, Comprehensive Epilepsy Program Dept. of Neurological Surgery, [facility] ([facility]), [address], [place] [address] - Email: [email or web address] [[email or web address]] Family History Problem Relation Name Age of Onset Stroke Father 67 [2] Current Outpatient Medications Medication Sig Dispense Refill Acetaminophen Extra Strength 500 MG tablet TAKE TWO TABLETS BY MOUTH EVERY 6 HOURS NEEDED FOR PAIN 100 tablet 1 ascorbic acid (Vitamin C) 500 MG tablet Take 1 tablet by mouth daily. Ascorbic Acid 56321 MG/30ML solution Infuse 87.5 g into a venous catheter 2 times a week. 175 mL 10 cholecalciferol (Vitamin D-3) 25 MCG (1000 UT) tablet Take 1 tablet by mouth daily. Eliquis 5 MG tablet Take 1 tablet by mouth 2 times a day. levETIRAcetam (Keppra) 500 MG tablet Take 3 tablets by mouth 2 times a day. 180 tablet 11 lisinopril (Prinivil) 20 MG tablet Take 1 tablet by mouth daily. 30 tablet 3 omeprazole (PriLOSEC) [address] capsule Take 1 capsule by mouth every morning. Do not crush or chew. ondansetron (Zofran) 8 MG tablet Take 1 tab (8mg) by mouth daily 30 minutes prior to temozolomide, then up to every 8 hours (max: 3/day) as needed for nausea/vomiting 90 tablet 1 polyethylene glycol (Miralax) 17 g packet Take 17 g by mouth daily. 30 packet 5 prochlorperazine (Compazine) 10 MG tablet Take 1 tablet by mouth every 6 hours as needed for nauseaor vomiting. 30 tablet 5 senna (Senokot) 8.6 MG tablet Take 2 tablets by mouth nightly. 30 tablet 5 sertraline (Zoloft) 25 MG tablet Take 1 tablet by mouth daily. Total dose of 75 mg daily (50 mg tablet + 25 mg tablet) sertraline (Zoloft) 50 MG tablet Take 1 tablet by mouth daily. Total dose of 75 mg daily (50 mg tablet + 25 mg tablet) temozolomide (Temodar) 140 MG chemo capsule Take 3 capsules (420 mg total) by mouth nightly. Take on Days 1-5 every 28 days 15 capsule 10 No current facility-administered medications for this visit. Cosigned by Sanchez Zaldivar MD at 07/06/2025 6:21 PM EDT Associated attestation - Sanchez Zaldivar MD - 07/06/2025 6:21 PM EDT I saw and evaluated the patient with the resident/fellow/SECTION PLOTTER OPERATOR. I discussed the case with the resident/fellow/SECTION PLOTTER OPERATOR and agree with the findings and plan as documented. documented in this encounter Plan of Treatment Upcoming Encounters Date Type Department Care Team ([facility] st Contact Info) Description 08/31/2025 8:15 AM EST Clinical Support [facility] 800 [facility], 2nd [place] [phone] 08/31/2025 8:30 AM EST Office Visit [facility] Res[facility] 800 [facility] [address] [place] [address] Gabe Cifuentes, SECTION PLOTTER OPERATOR 800 [facility] [address] [address] 08/31/2025 10:00 AM EST Appointment [facility] 800 [place] [address] 09/21/2025 9:15 AM EST Clinical Support [facility] 800 [facility] [address] [place] [address] 09/21/2025 9:30 AM EST Office Visit [facility] [address] [address] Gabe Cifuentes, SECTION PLOTTER OPERATOR [address] [address] 09/21/2025 11:00 AM EST Appointment [facility] Precision Medicine [address] [address] 10/05/2025 9:00 AM EST Office Visit [facility] [address], 1[address] [place] [address] Sanchze Zaldivar MD [address] [place] [address] 10/05/2025 11:00 AM EST Consult [facility] [address], [address] [place] [address] Syh Marquez APRN [address] [place] [address] documented as of this encounter Visit Diagnoses Diagnosis Glioblastoma multiforme (CMS/HCC)- Primary Malignant neoplasm of brain, unspecified site Expressive aphasia Brain mass Unspecified condition of brain documented in this encounter Additional Health Concerns Assessment Noted Time PHQ-9 Depression Total Score: 6 10/08/19 25 2:13 PM EST A fall risk assessment has been complete d for the patient 07/06/2025 9:58 AM EDT A Body Mass Index follow-up plan has been documented for the patient 07/06/2025 10:36 AM EDT documented as of this encounter Care Teams Precision Assembly Inspector Relationship Specialty Start Date End Date System, Provider Not In, MD [place] [address] PCP - General Family Medicine 03/23/25 Miguel Perez MD [address] [place] [address] [address] [place] [address] Consulting Physician Radiation Oncology 04/09/25 documented as of this encounter
--- OUTSIDE RECORDS SUMMARY | 2025-07-22 13:15 | XMS_ITS | Encounter Summary ---
Author Organization Healthcare Address [address] [place] [address] Care Team Providers Care Ic Design Manager Name Role Phone System, Provider Not In MD Primary Care Provider Unavailable Miguel Perez MD Unavailable [phone] Sherin Romero RN Unavailable Unavailable Reason for Visit * Reason Comments Labs Encounter Details Date Type Department Care Team (Latest Contact Info) Description 07/22/2025 1:15 PM EST Clinical Support [facility] [address] [place] [phone] Glioblastoma multiforme (CMS/HCC); Exam for clinical research [...] any time in the past 12 m [facility], were you homeless or living in a residential (including now)? No 03/23/2025 CAGE ASSESSMENT Answer [...] drink first t carroll in the morning (EYE-SHREDDING MACHINE TENDER) to steady your nerves or [...] [facility] 800 [facility] [address]nd [place] [address] 08/31/2025 8:30 AM EST Office Visit [facility] [address] [address] Gabe Cifuentes, COACH CLEANER 800 [facility] [address] [address] 08/31/2025 10:00 AM EST Appointment [facility] [address] [place] [address] 09/21/2025 9:15 AM EST Clinical Support [facility] [address] [address] 09/21/2025 9:30 AM EST Office Visit [facility] [address] [address] Gabe Cifuentes, COACH CLEANER [address] [address] 09/21/2025 11:00 AM EST Appointment [facility] [address] [place] [address] 10/05/2025 9:00 AM EST [facility] [address], [address] [place] [address] Sanchez Zaldivar MD [address] [place] [address] 10/05/2025 11:00 AM EST Consult [place] [facility] [address], [address] [place] [address] Shy Marquez, COACH CLEANER [address] [place] [address] documented as of this encounter [...] LAB COAGULATION METHOD 07/22/2025 2:15 PM EST [facility] Blood Venous blood specimen / Unknown Venipuncture / Unknown 07/22/2025 1:31 PM EST 07/22/2025 1:56 PM EST us Chente Sebastian MD LAB BLOOD ORDERABLES Final Res ult [facility] [address] [place] [address] * (ABNORMAL) Prothrombin Time/INR (07/22/2025 1:31 PM EST) Prothrombin Time 15.2(H) 12.0 - 14.3 sec LAB COAGULATION METHOD 07/22/2025 2:15 PM EST [facility] INR 1.2(H) 0.9 - 1.1 LAB COAGULATION METHOD 07/22/2025 2:15 PM EST [facility] Blood Venous blood specimen / Unknown Venipuncture / Unknown 07/22/2025 1:31 PM EST 07/22/2025 1:56 PM EST [facility] - 07/22/2025 2:15 PM EST OPTIMAL INR RANGES FOR PATIENT ON ORAL ANTICOAGULANT THERAPY Prevention of venous thromboembolism INR 2.0 to 3.0 In patients with heart disease: Atrial fibrillation INR 2.0 to 3.0 Valvular heart disease INR 2.0 to 3.0 Tissue heart valves INR 2.0 to 3.0 Mechanical prosthetic valves INR 2.5 to 3.5 Prevention of recurrent OR INR 2.5 to 3.5 us Chente Sebastian MD LAB BLOOD ORDERABLES Final Res ult [facility] [address] [place] [address] * (ABNORMAL) Comprehensive metabolic panel (07/22/2025 1:31 PM EST) Glucose, Plasma 109(H) 74 - 99 mg/dL 07/22/2025 2:27 PM EST [facility] BUN, Plasma 16 8 - 23 mg/dL 07/22/2025 2:27 PM EST [facility] Creatinine, Plasma 0.66 0.60 - 1.10 mg/dL 07/22/2025 2:27 PM EST [facility] BUN/Creatinine Ratio 24 07/22/2025 2:27 PM EST [facility] Sodium, Plasma 140 136 - 145 mmol/L 07/22/2025 2:27 PM EST [facility] Potassium, Plasma 3.9 3.6 - 4.9 mmol/L 07/22/2025 2:27 PM EST [facility] Chloride, Plasma 103 97 - 107 mmol/L 07/22/2025 2:27 PM EST [facility] CO2, Plasma 24 22 - 29 mmol/L 07/22/2025 2:27 PM EST [facility] Anion Gap 13 6 - 16 mmol/L 07/22/2025 2:27 PM EST [facility] Total Calcium, Plasma 9.5 8.9 - 10.2 mg/dL 07/22/2025 2:27 PM EST [facility] Total Protein 7.1 6.3 - 7.9 g/dL 07/22/2025 2:27 PM EST [facility] Albumin, Plasma 4.4 3.5 - 5.2 g/dL 07/22/2025 2:27 PM EST [facility] AST, Plasma 16 10 - 35 U/L 07/22/2025 2:27 PM EST [facility] ALT, Plasma 17 10 - 35 U/L 07/22/2025 2:27 PM EST [facility] Alkaline Phosphatase, Plasma 82 46 - 142 U/L 07/22/2025 2:27 PM EST [facility] Total Bilirubin, Plasma 0.5 0.2 - 1.1 mg/dL 07/22/2025 2:27 PM EST [facility] eGFRcr 96.3 mL/min/1.7 3m*2 07/22/2025 2:27 PM EST [facility] Comment:Reported eGFRcr in m L/min/1.73m2 is based the CKD-EPI 2020 equation that does not use a race coefficient. Blood Venous blood specimen / Unknown Venipuncture / Unknown 07/22/2025 1:31 PM EST 07/22/2025 1:56 PM EST us Chente Sebastian MD LAB BLOOD ORDERABLES Final Res ult [facility] [address] [place] [address] * (ABNORMAL) CBC and differential (07/22/2025 1:31 PM EST) WBC Count 5.79 3.70 - 10.30 10*3/uL LAB HEMATOLOGY METHOD 07/22/2025 2:05 PM EST [facility] RBC Count 4.87 3.90 - 5.20 10*6/uL LAB HEMATOLOGY METHOD 07/22/2025 2:05 PM EST [facility] HGB 13.2 11.2 - 15.7 g/dL LAB HEMATOLOGY METHOD 07/22/2025 2:05 PM EST [facility] HCT 41.4 34.0 - 45.0 % LAB HEMATOLOGY METHOD 07/22/2025 2:05 PM [facility] Platelet Count 266 155 - 369 10*3/uL LAB HEMATOLOGY METHOD 07/22/2025 2:05 PM [facility] MCV 85 79 - 98 fL LAB HEMATOLOGY METHOD 07/22/2025 2:05 PM [facility] MCH 27.1 26.0 - 32.0 pg LAB HEMATOLOGY METHOD 07/22/2025 2:05 PM [facility] MCHC 31.9 30.7 - 35.5 g/dL LAB HEMATOLOGY METHOD 07/22/2025 2:05 PM [facility] RDW 14.5 11.5 - 14.5 % LAB HEMATOLOGY METHOD 07/22/2025 2:05 PM [facility] MPV 10.2 8.8 - 12.5 fL LAB HEMATOLOGY METHOD 07/22/2025 2:05 PM [facility] nRBC 0.0 <=0.0 per 100 WBCs LAB HEMATOLOGY METHOD 07/22/2025 2:05 PM [facility] Differential Type Automated LAB HEMATOLOGY METHOD 07/22/2025 2:05 PM [facility] Neutrophils % 70 % LAB HEMATOLOGY METHOD 07/22/2025 2:05 PM [facility] Lymphocytes % 18 % LAB HEMATOLOGY METHOD 07/22/2025 2:05 PM [facility] Monocytes % 9 % LAB HEMATOLOGY METHOD 07/22/2025 2:05 PM [facility] Eosinophils % 3 % LAB HEMATOLOGY METHOD 07/22/2025 2:05 PM [facility] Basophils % 0 % LAB HEMATOLOGY METHOD 07/22/2025 2:05 PM [facility] Immature Granulocytes % 0 % LAB HEMATOLOGY METHOD 07/22/2025 2:05 PM [facility] Neutrophils Absolute 4.05 1.60 - 6.10 10*3/uL LAB HEMATOLOGY METHOD 07/22/2025 2:05 PM [facility] Lymphocytes Absolute 1.05(L) 1.20 - 3.90 10*3/uL LAB HEMATOLOGY METHOD 07/22/2025 2:05 PM [facility] Monocytes Absolute 0.50 0.30 - 0.90 10*3/uL LAB HEMATOLOGY METHOD 07/22/2025 2:05 PM EST [facility] Eosinophils Absolute 0.16 0.00 - 0.50 10*3/uL LAB HEMATOLOGY METHOD 07/22/2025 2:05 PM EST [facility] Basophils Absolute 0.01 0.00 - 0.10 10*3/uL LAB HEMATOLOGY METHOD 07/22/2025 2:05 PM EST [facility] Immature Granulocytes Absolute 0.02 0.00 - 0.06 10*3/uL LAB HEMATOLOGY METHOD 07/22/2025 2:05 PM EST [facility] Blood Venous blood specimen / Unknown Venipuncture / Unknown 07/22/2025 1:31 PM EST 07/22/2025 1:56 PM EST Narrative [facility] - 07/22/2025 2:05 PM EST Therapeutic decision making should be based on absolute values, rather than percentages. us Chente Sebastian MD LAB BLOOD ORDERABLES Final Res ult [address] [address] documented in this encounter Visit Diagnoses Diagnosis [...] documented as of this encounter Care Teams Ic Design Manager Relationship Specialty Start Date End Date System, Provider Not In, [address] [place] [id number] PCP - General Family Medicine 03/23/25 Miguel Perez MD [address] [place] [phone] Consulting Physician Radiation Oncology 04/09/25 Sherin Romero, RN None None Registered Nurse Medical Oncology 07/20/25 documented as of this encounter
--- OUTSIDE RECORDS SUMMARY | 2025-07-22 13:30 | XMS_ITS | Encounter Summary ---
Author Organization Healthcare Address [address] [place] [address] Care Team Providers Care Night Guard Name Role Phone System, Provider Not In MD Primary Care Provider Unavailable Miguel Perez MD Unavailable [phone] Sherin Romero RN Unavailable Unavailable Reason for Visit * Reason Comments Follow-up Encounter Details Date Type Department Care Team (Late st Contact Info) Description 07/22/2025 1:30 PM EST Office Visit [facility] [address] [place] [address] Gabe Cifuentes, VISITOR SERVICES ASSOCIATE 800 [facility] [address] [place] [address] Glioblastoma multiforme (CMS/HCC) (Primary Dx); Acute saddle [...] time in the past 12 m [facility], were you homeless or living in a [...] first t carroll in the morning (EYE-HEALTH CARE SOCIAL WORKER) to steady your nerves or to get [...] [facility] 800 [facility] [address] No referring provider defined for this encounter [...] Perez MD on 04/02/2025 Study Patient: Yes [id number]: A Phase 3, Randomized, Double-Blind, Placebo-Controlled Study [...] per GBM-16. TMZ maintenance supply received from [employer] [facility] for start of Cycle 1, scheduled for 06/08/25. Labs have been reviewed and are appropriate for treatment on 06/08. 07/01/25: Patient tolerated first adjuvant TMZ maintenance cycle. Labs have been reviewed and are appropriate for next cycle. Will increase TMZ to 200 mg/m2/dose with cycle 2 forward. Updated prescription sent to [facility] today. Labs appropriate for infusion today. [...] No dose adjustments made Rx sent to: [facility] Refills due: if continued beyond 12 [...] [facility] 800 [facility] 2nd [place] [address] 08/31/2025 8:30 AM EST Office Visit [facility] [address] [address] Gabe Cifuentes, VISITOR SERVICES ASSOCIATE [address] [address] 08/31/2025 10:00 AM EST Appointment [facility] [address] [place] [phone] 09/21/2025 9:15 AM EST Clinical Support [facility] [address] [address] 09/21/2025 9:30 AM EST Office Visit [facility] [address] [address] Gabe Cifuentes, VISITOR SERVICES ASSOCIATE [address] [address] 09/21/2025 11:00 AM EST Appointment [facility] 800 [place] [address] 10/05/2025 9:00 AM EST Office Visit [facility] [address], [address] [place] [phone] Sanchez Zaldivar MD [address] [facility] [address] [place] [address] 10/05/2025 11:00 AM EST Consult [place] [facility] [address], [address] [place] [address] JimmyShy, VISITOR SERVICES ASSOCIATE [address] [place] [address] documented as of this encounter Results * T4, free (08/10/2025 2:20 PM EST) Free T4, Plasma 1.2 0.8 - 1.7 ng/dL 08/10/2025 3:12 PM EST [facility] Blood Venous blood specimen / Unknown Venipuncture / Unknown 08/10/2025 2:20 PM EST 08/10/2025 2:35 PM EST Chente Sebastian MD LAB BLOOD ORDERABLES Final Res ult Performing Organization Address City/[facility]/ZIP Co de Phone Number [facility] [address] [place] [address] * T3, Serum (08/10/2025 2:20 PM EST) T3, Serum 105 87 - 187 ng/dL 08/10/2025 3:12 PM EST [facility] Blood Venous blood specimen / Unknown Venipuncture / Unknown 08/10/2025 2:20 PM EST 08/10/2025 2:35 PM EST Chente Sebastian MD LAB BLOOD ORDERABLES Final Res ult [facility] [address] [place] [address] * TSH (08/10/2025 2:20 PM EST) Thyroid Stimulating Hormone, Plasma 2.20 0.40 - 4.20 uIU/mL 08/10/2025 3:12 PM EST [facility] Blood Venous blood specimen / Unknown Venipuncture / Unknown 08/10/2025 2:20 PM EST 08/10/2025 2:35 PM EST us Chente Sebastian MD LAB BLOOD ORDERABLES Final Res ult [facility] [address] [place] [address] * (ABNORMAL) Comprehensive metabolic panel (08/10/2025 2:20 PM EST) Glucose, Plasma 128(H) 74 - 99 mg/dL 08/10/2025 3:12 PM EST [facility] BUN, Plasma 12 8 - 23 mg/dL 08/10/2025 3:12 PM EST [facility] Creatinine, Plasma 0.65 0.60 - 1.10 mg/dL 08/10/2025 3:12 PM EST [facility] BUN/Creatinine Ratio 18 08/10/2025 3:12 PM EST [facility] Sodium, Plasma 140 136 - 145 mmol/L 08/10/2025 3:12 PM EST [facility] Potassium, Plasma 3.5(L) 3.6 - 4.9 mmol/L 08/10/2025 3:12 PM EST [facility] Chloride, Plasma 103 97 - 107 mmol/L 08/10/2025 3:12 PM EST [facility] CO2, Plasma 27 22 - 29 mmol/L 08/10/2025 3:12 PM EST [facility] Anion Gap 10 6 - 16 mmol/L 08/10/2025 3:12 PM EST [facility] Total Calcium, Plasma 9.3 8.9 - 10.2 mg/dL 08/10/2025 3:12 PM EST [facility] Total Protein 6.8 6.3 - 7.9 g/dL 08/10/2025 3:12 PM EST [facility] Albumin, Plasma 4.0 3.5 - 5.2 g/dL 08/10/2025 3:12 PM EST [facility] AST, Plasma 14 10 - 35 U/L 08/10/2025 3:12 PM EST [facility] ALT, Plasma 15 10 - 35 U/L 08/10/2025 3:12 PM EST [facility] Alkaline Phosphatase, Plasma 68 46 - 142 U/L 08/10/2025 3:12 PM EST [facility] Total Bilirubin, Plasma 0.3 0.2 - 1.1 mg/dL 08/10/2025 3:12 PM EST [facility] eGFRcr 96.6 mL/min/1.7 3m*2 08/10/2025 3:12 PM EST [facility] Comment:Reported eGFRcr in m L/min/1.73m2 is based the CKD-EPI 2020 equation that does not use a race coefficient. Blood Venous blood specimen / Unknown Venipuncture / Unknown 08/10/2025 2:20 PM EST 08/10/2025 2:35 PM EST us Chente Sebastian MD LAB BLOOD ORDERABLES Final Res ult [facility] [address] [place] [address] * (ABNORMAL) CBC and differential (08/10/2025 2:20 PM EST) WBC Count 4.89 3.70 - 10.30 10*3/uL LAB HEMATOLOGY METHOD 08/10/2025 2:49 PM EST [facility] RBC Count 4.65 3.90 - 5.20 10*6/uL LAB HEMATOLOGY METHOD 08/10/2025 2:49 PM EST [facility] HGB 12.8 11.2 - 15.7 g/dL LAB HEMATOLOGY METHOD 08/10/2025 2:49 PM EST [facility] HCT 39.0 34.0 - 45.0 % LAB HEMATOLOGY METHOD 08/10/2025 2:49 PM EST [facility] Platelet Count 259 155 - 369 10*3/uL LAB HEMATOLOGY METHOD 08/10/2025 2:49 PM EST [facility] MCV 84 79 - 98 fL LAB HEMATOLOGY METHOD 08/10/2025 2:49 PM EST [facility] MCH 27.5 26.0 - 32.0 pg LAB HEMATOLOGY METHOD 08/10/2025 2:49 PM EST [facility] MCHC 32.8 30.7 - 35.5 g/dL LAB HEMATOLOGY METHOD 08/10/2025 2:49 PM EST [facility] RDW 14.2 11.5 - 14.5 % LAB HEMATOLOGY METHOD 08/10/2025 2:49 PM [facility] MPV 9.9 8.8 - 12.5 fL LAB HEMATOLOGY METHOD 08/10/2025 2:49 PM [facility] nRBC 0.0 <=0.0 per 100 WBCs LAB HEMATOLOGY METHOD 08/10/2025 2:49 PM [facility] Differential Type Automated LAB HEMATOLOGY METHOD 08/10/2025 2:49 PM [facility] Neutrophils % 75 % LAB HEMATOLOGY METHOD 08/10/2025 2:49 PM [facility] Lymphocytes % 14 % LAB HEMATOLOGY METHOD 08/10/2025 2:49 PM [facility] Monocytes % 9 % LAB HEMATOLOGY METHOD 08/10/2025 2:49 PM [facility] Eosinophils % 2 % LAB HEMATOLOGY METHOD 08/10/2025 2:49 PM [facility] Basophils % 0 % LAB HEMATOLOGY METHOD 08/10/2025 2:49 PM [facility] Immature Granulocytes % 0 % LAB HEMATOLOGY METHOD 08/10/2025 2:49 PM [facility] Neutrophils Absolute 3.59 1.60 - 6.10 10*3/uL LAB HEMATOLOGY METHOD 08/10/2025 2:49 PM [facility] Lymphocytes Absolute 0.69(L) 1.20 - 3.90 10*3/uL LAB HEMATOLOGY METHOD 08/10/2025 2:49 PM [facility] Monocytes Absolute 0.46 0.30 - 0.90 10*3/uL LAB HEMATOLOGY METHOD 08/10/2025 2:49 PM [facility] Eosinophils Absolute 0.11 0.00 - 0.50 10*3/uL LAB HEMATOLOGY METHOD 08/10/2025 2:49 PM [facility] Basophils Absolute 0.02 0.00 - 0.10 10*3/uL LAB HEMATOLOGY METHOD 08/10/2025 2:49 PM [facility] Immature Granulocytes Absolute 0.02 0.00 - 0.06 10*3/uL LAB HEMATOLOGY METHOD 08/10/2025 2:49 PM [facility] Blood Venous blood specimen / Unknown Venipuncture / Unknown 08/10/2025 2:20 PM EST 08/10/2025 2:39 PM EST Narrative [facility] - 08/10/2025 2:49 PM EST Therapeutic decision making should be based on absolute values, rather than percentages. us Chente Sebastian MD LAB BLOOD ORDERABLES Final Res ult [facility] [address] [place] [address] documented in this encounter Visit Diagnoses Diagnosis [...] documented as of this encounter Care Teams Night Guard Relationship Specialty Start Date End Date System, Provider Not In, [address] [place] [id number] PCP - General Family Medicine 03/23/25 Miguel Perez MD [address] [place] [address] [address] [place] [address] Consulting Physician Radiation Oncology 04/09/25 Sherin Romero, RN None None Registered Nurse Medical Oncology 07/20/25 documented as of this encounter
--- OUTSIDE RECORDS SUMMARY | 2025-07-22 14:10 | XMS_ITS | Encounter Summary ---
Author Organization Healthcare Address [address] [place] [address] Care Team Providers Care Catcher Helper Name Role Phone System, Provider Not In MD Primary Care Provider Unavailable Miguel Perez MD Unavailable [phone] Sherin Romero RN Unavailable Unavailable Reason for Visit * Episode Based Medications (Routine) - Authorized Specialty Diagnoses / Procedures Referred By Génesis t Referred To Contact Diagnoses Glioblastoma multiforme (CMS/HCC) Procedures [id number]: Pembrolizumab or Placebo + Optune Every 21 Days / Temozolomide Every 28 Days Chente Sebastian MD 800 [facility] Li[address] Conde [address] [address] Phone: tel: fax: Chente Sebastian MD 800 [facility] [address]de [address] [address] Phone: tel: fax: Referral ID Status Reason Start Date Expiration Date V isits Requested Visits Authorized [id number] Authorized 05/29/2025 11/28/2026 1 1 Encounter Details Date Type Department Care Team (Latest Contact Info) Description 07/22/2025 2:10 PM EST - 07/22/2025 11:59 PM [facility] Hospital Encounter [facility] 800 [place] [phone] Glioblastoma multiforme (CMS/HCC) (Primary Dx) Discharge Disposition: [...] time in the past 12 m [facility], were you homeless or living in a assisted (including now)? No 03/23/2025 CAGE ASSESSMENT Answer [...] drink first t carroll in the morning (EYE-SPECIAL EQUIPMENT TECHNICIAN) to steady your nerves or to get [...] Sign Reading Time Taken Comments Blood Pressure 131/82 07/22/2025 2:14 PM EST Pulse 72 07/22/2025 2:14 PM EST Temperature 36.7 C (98.1 F) 07/22/2025 2:14 PM EST Respiratory Rate 18 07/22/2025 2:14 PM EST Oxygen Saturation 95% 07/22/2025 2:14 PM EST Inhaled Oxygen Concentration - - Weight 100 kg (221 lb 1.9 oz) 07/22/2025 2:14 PM EST Height 167.6 cm (5' 6 ) 07/22/2025 2:14 PM EST Body Mass Index 35.69 07/22/2025 2:14 PM EST documented in this encounter Medications at Time of Discharge Acetaminophen Extra Strength 500 MG tablet TAKE TWO TABLETS BY MOUTH EVERY 6 HOURS NEEDED FOR PAIN 100 tablet 1 06/15/2025 ascorbic acid (Vitamin C) 500 MG tablet Take 1 tablet by mouth daily. 06/01/2025 Ascorbic Acid 92068 MG/30ML solution Infuse 87.5 g into a [...] a day. 180 tablet 11 02/27/2025 02/27/2026 lisinopril (Prinivil) 20 MG tablet Take 1 tablet by mouth daily. 30 tablet 3 07/02/2025 omeprazole (PriLOSEC) [address] capsule Take [...] [facility] [address] [address] 08/31/2025 8:30 AM EST Office Visit [facility] [address] [address] Gabe Cifuentes, DISTRICT EXTENSION SERVICE AGENT 800 [facility] [address]de [address] [place] [address] 08/31/2025 10:00 AM EST Appointment [facility] 800 [place] [address] 09/21/2025 9:15 AM EST Clinical Support [facility] [address] [address] 09/21/2025 9:30 AM EST Office Visit [facility] [address] [address] Gabe Cifuentes, DISTRICT EXTENSION SERVICE AGENT 800 [facility] [address] [place] [address] 09/21/2025 11:00 AM EST Appointment [facility] 800 [place] [address] 10/05/2025 9:00 AM EST Office Visit [facility] [address], [facility] [place] [address] Sanchez Zaldivar MD [address] [place] [address] 10/05/2025 11:00 AM EST Consult [facility] [address], [facility] [place] [address] Shy Marquez, DISTRICT EXTENSION SERVICE AGENT [address] [place] [address] documented as of this encounter [...] binding filter. Infuse through dedicated line., On Sun07/22/25 at 1500, For 1 dose, NS 100mLIndications:Glioblastoma multiforme (CMS/HCC) New Bag 07/22/2025 3:18 PM EST 200 mg 276 mL/hr documented in this encounter Additional Health Concerns Assessment Noted Time PHQ-9 Depression Total Score: 6 10/08/19 2:13 PM EST A fall risk assessment has been complete d for the patient 07/22/2025 2:14 PM EST A Body Mass Index follow-up plan has been documented for the patient 07/06/2025 10:36 AM EDT documented as of this encounter Care Teams Catcher Helper Relationship Specialty Start Date End Date System, Provider Not In, [place] [address] PCP - General Family Medicine 03/23/25 Miguel Perez MD [address] [place] [address] [address] [place] [address] Consulting Physician Radiation Oncology 04/09/25 Sherin Romero, RN None None Registered Nurse Medical Oncology 07/20/25 documented as of this encounter
--- OUTSIDE RECORDS SUMMARY | 2025-08-10 | XMS_ITS | Encounter Summary ---
Author Organization Healthcare Address [address] [place] [address] Care Team Providers Care Mail Sorter Name Role Phone System, Provider Not In MD Primary Care Provider Unavailable Miguel Perez MD Unavailable [phone] Sherin Romero RN Unavailable Unavailable Encounter Details Date Type Department Care Team (Latest Contact Info) Description 08/10/2025 - 08/10/2025 7:55 AM [facility] Hospital Encounter Image Record Center [address] [place] [address] Glioblastoma multiforme (CMS/HCC); Exam for clinical research Discharge Disposition: Home or Self Care Social [...] any time in the past 12 m [facility], were you homeless or living in [...] drink first t carroll in the morning (EYE-MANAGER PHYSICAL) to steady your nerves or to get [...] tablet by mouth daily. 06/01/2025 Ascorbic Acid 34973 MG/30ML solution Infuse 87.5 g into a [...] [facility] [address] [address] 08/31/2025 8:30 AM EST Office Visit [facility] [address] [address] Gabe Cifuentes, ACTUARIAL ASSOCIATE [address] [address] 08/31/2025 10:00 AM EST Appointment [facility] [address] [place] [address] 09/21/2025 9:15 AM EST Clinical Support [facility] [address] [address] 09/21/2025 9:30 AM EST Office Visit [facility] [address] [address] Gabe Cifuentes, ACTUARIAL ASSOCIATE [address] [address] 09/21/2025 11:00 AM EST Appointment [facility] [address] [place] [address] 10/05/2025 9:00 AM EST Office Visit [facility] [address], [address] [place] [address] Sanchez Zaldivar MD [address] [place] [address] 10/05/2025 11:00 AM EST Consult [place] [facility] [address], [address] [place] [address] KrystalShy brice, ACTUARIAL ASSOCIATE [address] [place] [address] documented as of this encounter Procedures Procedure Name Priority Date/Time Associated Diagnosis Comments RADIOLOGY RESEARCH REPORT REQUEST Routine 08/10/2025 12:00 AM EST Glioblastoma multiforme (CMS/HCC) Exam for clinical research documented in this encounter Results * Radiology Research Report Request Other; RANO 2.0 (08/10/2025 12:00 AM EST) Anatomical Region Laterality Modality Other Narrative 08/19/2025 9:17 AM EST Research read for Date: 08/10/2025 Study: MRI Head with/without contrast Original exam date: 08/10/2025 Type of specific read needed: Other Specific instructions: RANO 2.0 Is this a baseline or follow-up research? Follow-up Research Study Name: GBM-16 Name of the Cleaner Carpet And Upholstery: Dr. Chente Sebastian Correspondence email: [email or web address] Was this trial started before Sep 10, 2022? [facility] Manual release only [2] Reason for preventing immediate release: Reasonable likelihood of causing patient harm [2] COMPARISON: Date: 05/22/2025 FINDINGS: Response Assessment in Neuro-Oncology (RANO) criteria T1 Postcontrast: Yes, Rim enhancing left insular resection cavity, 38 x 25 mm on 17:95. There is new adjacent enhancement that was not present on the prior exam, measuring 14 x 15 mm (Series 17 Image 93) T2/FLAIR: Yes, larger extent of hyperintensity on the corresponding slice 9:14, measuring 64 x 27 mm. This report qualifies as a Simple research read. Chente Sebastian MD IMG RESEARCH ORDERABLES Final Result documented in this encounter Visit Diagnoses Diagnosis Glioblastoma multiforme (CMS/HCC) Malignant neoplasm of brain, unspecified site Exam for clinical research documented in this encounter Additional Health Concerns Assessment Noted Time PHQ-9 Depression Total Score: 6 10/08/19 2:13 PM EST A fall risk assessment has been complete d for the patient 08/10/2025 3:20 PM EST A Body Mass Index follow-up plan has been documented for the patient 07/06/2025 10:36 AM EDT documented as of this encounter Care Teams Mail Sorter Relationship Specialty Start Date End Date System, Provider Not In, [address] [place] [address] PCP - General Family Medicine 03/23/25 Miguel Perez MD [address] [place] [address] [address] [place] [address] Consulting Physician Radiation Oncology 04/09/25 Sherin Romero RN None None Registered Nurse Medical Oncology 07/20/25 documented as of this encounter
--- OUTSIDE RECORDS SUMMARY | 2025-08-10 07:56 | XMS_ITS | Encounter Summary ---
Author Organization Healthcare Address [address] [place] [address] Care Team Providers Care Indoor Landscaper/Gardener Name Role Phone System, Provider Not In MD Primary Care Provider Unavailable Miguel Perez MD Unavailable [phone] Sherin Romero RN Unavailable Unavailable Reason for Referral * Imaging (Routine) - Closed Specialty Diagnoses / Procedures Referred By Contac t Referred To Contact Radiology Diagnoses Brain mass Glioblastoma multiforme (CMS/HCC) Procedures MR Head w and wo IV Contrast Olivia Etienne APRN, DNP [address] [address] Phone: tel: fax: Referral ID Status Reason Start Date Expiration Date Visits Re quested Visits Authorized [id number] Closed 06/05/2025 12/05/2026 1 1 Reason for Visit * Imaging (Routine) - Closed Specialty Diagnoses / Procedures Referred By Contac t Referred To Contact Radiology Diagnoses Brain mass Glioblastoma multiforme (CMS/HCC) Procedures MR Head w and wo IV Contrast Olivia Etienne APRN, DNP [address] [address] Phone: tel: fax: Referral ID Status Reason Start Date Expiration Date Visits Re quested Visits Authorized [id number] Closed 06/05/2025 12/05/2026 1 1 Encounter Details Date Type Department Care Team (Latest Contact Info) Description 08/10/2025 7:56 AM EST - 08/10/2025 2:59 PM EST Hospital Encounter [facility] [address] [place] [address] Brain mass; Glioblastoma multiforme (CMS/HCC) Discharge Disposition: [...] any time in the past 12 m [facility], were you homeless or living [...] drink first t carroll in the morning (EYE-TURBO GENERATOR OILER) to steady your nerves or to get [...] tablet by mouth daily. 06/01/2025 Ascorbic Acid 67417 MG/30ML solution Infuse 87.5 g into a [...] [facility] 800 [facility], 2nd [place] [address] 08/31/2025 8:30 AM EST Office Visit [facility] 800 [facility], 2nd [place] [address] Gabe Cifuentes, PHYSICIAN VICE PRESIDENT [address] [facility] [address] [place] [address] 08/31/2025 10:00 AM EST Appointment [facility] Prec[facility] 800 [place] [phone] 09/21/2025 9:15 AM EST Clinical Support [facility] 800 [facility], 2nd [place] [address] 09/21/2025 9:30 AM EST Office Visit [facility] [address] [facility], [address]nd [place] [phone] Gabe Cifuentes, PHYSICIAN VICE PRESIDENT 800 [facility] Amaya [facility] [address] [place] [address] 09/21/2025 11:00 AM EST Appointment [facility] 800 [place] [address] 10/05/2025 9:00 AM EST Office Visit [facility] [address], 1st [place] [address] Sanchez Zaldivar MD [address] [place] [address] 10/05/2025 11:00 AM EST Consult [facility] [address], 1st [place] [address] Shy Marquez, PHYSICIAN VICE PRESIDENT [address] [place] [address] documented as of this encounter [...] error, please notify the sender immediately at [phone] and permanently delete the original report and destroy any copies or printouts. 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 Olivia Etienne APRN, [facility] IM MRI PROCEDURES Final Result documented in [...] documented as of this encounter Care Teams Indoor Landscaper/Gardener Relationship Specialty Start Date End Date System, Provider Not In, 800 [place] [address] PCP - General Family Medicine 03/23/25 Miguel Perez MD [address] [place] [address] [address] [place] [address] Consulting Physician Radiation Oncology 04/09/25 Sherin Romero, SKY None None Registered Nurse Medical Oncology 07/20/25 documented as of this encounter
--- OUTSIDE RECORDS SUMMARY | 2025-08-10 13:45 | XMS_ITS | Encounter Summary ---
Author Organization Healthcare Address [address] [place] [address] Care Team Providers Care Senior Painter Name Role Phone System, Provider Not In MD Primary Care Provider Unavailable Miguel Perez MD Unavailable [phone] Sherin Romero RN Unavailable Unavailable Reason for Visit * Reason Comments Labs Encounter Details Date Type Department Care Team (Latest Contact Info) Description 08/10/2025 1:45 PM EST Clinical Support [facility] [address], 2nd [place] [phone] Glioblastoma multiforme (CMS/HCC); Exam for clinical research [...] any time in the past 12 m [facility], were you homeless or living in a custodial (including now)? No 03/23/2025 CAGE ASSESSMENT Answer [...] drink first t carroll in the morning (EYE-MATERIAL HAULER) to steady your nerves or to get [...] [facility] Respiratory 800 [facility] 2nd [place] [address] 08/31/2025 8:30 AM EST Office Visit [facility] [address] [address] Gabe Cifuentes, INTERACTIVE DEVELOPER 800 [facility] [address] [address] 08/31/2025 10:00 AM EST Appointment [facility] 800 [place] [address] 09/21/2025 9:15 AM EST Clinical Support [facility] [address] [address] 09/21/2025 9:30 AM EST Office Visit [facility] [address] [address] Gabe Cifuentes, INTERACTIVE DEVELOPER [address] [address] 09/21/2025 11:00 AM EST Appointment [facility] 800 [place] [address] 10/05/2025 9:00 AM EST [facility] [address], 1st [place] [address] Sanchez Zaldivar MD [address] [place] [address] 10/05/2025 11:00 AM EST Consult [place] [facility] [address], 1[address] [place] [address] Shy Marquez, INTERACTIVE DEVELOPER [address] [place] [address] documented as of this encounter Procedures Procedure [...] LAB COAGULATION METHOD 08/10/2025 3:07 PM EST [facility] INR 1.2(H) 0.9 - 1.1 LAB COAGULATION METHOD 08/10/2025 3:07 PM EST [facility] Blood Venous blood specimen / Unknown Venipuncture / Unknown 08/10/2025 2:20 PM EST 08/10/2025 2:35 PM EST Narrative [facility] - 08/10/2025 3:07 PM EST OPTIMAL INR RANGES FOR PATIENT ON ORAL ANTICOAGULANT THERAPY Prevention of venous thromboembolism INR 2.0 to 3.0 In patients with heart disease: Atrial fibrillation INR 2.0 to 3.0 Valvular heart disease INR 2.0 to 3.0 Tissue heart valves INR 2.0 to 3.0 Mechanical prosthetic valves INR 2.5 to 3.5 Prevention of recurrent [place] INR 2.5 to 3.5 us Chente Sebastian MD LAB BLOOD ORDERABLES Final Res ult Performing Organization Address City/[facility]/ZIP Co de Phone Number [facility] 800 [place] [address] * APTT (08/10/2025 2:20 PM EST) aPTT 27 25 - 35 sec LAB COAGULATION METHOD 08/10/2025 3:07 PM EST [facility] Blood Venous blood specimen / Unknown Venipuncture / Unknown 08/10/2025 2:20 PM EST 08/10/2025 2:35 PM EST us Chente Sebastian MD LAB BLOOD ORDERABLES Final Res ult Performing Organization Address [facility] Co de Phone Number [facility] [address] [place] [address] * (ABNORMAL) CBC and differential (08/10/2025 2:20 PM EST) WBC Count 4.89 3.70 - 10.30 10*3/uL LAB HEMATOLOGY METHOD 08/10/2025 2:49 PM EST [facility] RBC Count 4.65 3.90 - 5.20 10*6/uL LAB HEMATOLOGY METHOD 08/10/2025 2:49 PM EST [facility] HGB 12.8 11.2 - 15.7 g/dL LAB HEMATOLOGY METHOD 08/10/2025 2:49 PM EST [facility] HCT 39.0 34.0 - 45.0 % LAB HEMATOLOGY METHOD 08/10/2025 2:49 PM EST [facility] Platelet Count 259 155 - 369 10*3/uL LAB HEMATOLOGY METHOD 08/10/2025 2:49 PM [facility] MCV 84 79 - 98 fL LAB HEMATOLOGY METHOD 08/10/2025 2:49 PM [facility] MCH 27.5 26.0 - 32.0 pg LAB HEMATOLOGY METHOD 08/10/2025 2:49 PM [facility] MCHC 32.8 30.7 - 35.5 g/dL LAB HEMATOLOGY METHOD 08/10/2025 2:49 PM [facility] RDW 14.2 11.5 - 14.5 % LAB HEMATOLOGY METHOD 08/10/2025 2:49 PM [facility] MPV 9.9 8.8 - 12.5 fL LAB HEMATOLOGY METHOD 08/10/2025 2:49 PM [facility] nRBC 0.0 <=0.0 per 100 WBCs LAB HEMATOLOGY METHOD 08/10/2025 2:49 PM [facility] Differential Type Automated LAB HEMATOLOGY METHOD 08/10/2025 2:49 PM [facility] Neutrophils % 75 % LAB HEMATOLOGY METHOD 08/10/2025 2:49 PM [facility] Lymphocytes % 14 % LAB HEMATOLOGY METHOD 08/10/2025 2:49 PM [facility] Monocytes % 9 % LAB HEMATOLOGY METHOD 08/10/2025 2:49 PM [facility] Eosinophils % 2 % LAB HEMATOLOGY METHOD 08/10/2025 2:49 PM [facility] Basophils % 0 % LAB HEMATOLOGY METHOD 08/10/2025 2:49 PM [facility] Immature Granulocytes % 0 % LAB HEMATOLOGY METHOD 08/10/2025 2:49 PM [facility] Neutrophils Absolute 3.59 1.60 - 6.10 10*3/uL LAB HEMATOLOGY METHOD 08/10/2025 2:49 PM [facility] Lymphocytes Absolute 0.69(L) 1.20 - 3.90 10*3/uL LAB HEMATOLOGY METHOD 08/10/2025 2:49 PM [facility] Monocytes Absolute 0.46 0.30 - 0.90 10*3/uL LAB HEMATOLOGY METHOD 08/10/2025 2:49 PM [facility] Eosinophils Absolute 0.11 0.00 - 0.50 10*3/uL LAB HEMATOLOGY METHOD 08/10/2025 2:49 PM [facility] Basophils Absolute 0.02 0.00 - 0.10 10*3/uL LAB HEMATOLOGY METHOD 08/10/2025 2:49 PM EST [facility] Immature Granulocytes Absolute 0.02 0.00 - 0.06 10*3/uL LAB HEMATOLOGY METHOD 08/10/2025 2:49 PM EST [facility] Blood Venous blood specimen / Unknown Venipuncture / Unknown 08/10/2025 2:20 PM EST 08/10/2025 2:39 PM EST Narrative [facility] - 08/10/2025 2:49 PM EST Therapeutic decision making should be based on absolute values, rather than percentages. us Chente Sebastian MD LAB BLOOD ORDERABLES Final Res ult [facility] [address] [place] [address] * (ABNORMAL) Comprehensive metabolic panel (08/10/2025 2:20 PM EST) Glucose, Plasma 128(H) 74 - 99 mg/dL 08/10/2025 3:12 PM EST [facility] BUN, Plasma 12 8 - 23 mg/dL 08/10/2025 3:12 PM EST [facility] Creatinine, Plasma 0.65 0.60 - 1.10 mg/dL 08/10/2025 3:12 PM EST [facility] BUN/Creatinine Ratio 18 08/10/2025 3:12 PM EST [facility] Sodium, Plasma 140 136 - 145 mmol/L 08/10/2025 3:12 PM EST [facility] Potassium, Plasma 3.5(L) 3.6 - 4.9 mmol/L 08/10/2025 3:12 PM EST [facility] Chloride, Plasma 103 97 - 107 mmol/L 08/10/2025 3:12 PM EST [facility] CO2, Plasma 27 22 - 29 mmol/L 08/10/2025 3:12 PM EST [facility] Anion Gap 10 6 - 16 mmol/L 08/10/2025 3:12 PM EST [facility] Total Calcium, Plasma 9.3 8.9 - 10.2 mg/dL 08/10/2025 3:12 PM EST [facility] Total Protein 6.8 6.3 - 7.9 g/dL 08/10/2025 3:12 PM EST [facility] Albumin, Plasma 4.0 3.5 - 5.2 g/dL 08/10/2025 3:12 PM EST [facility] AST, Plasma 14 10 - 35 U/L 08/10/2025 3:12 PM EST [facility] ALT, Plasma 15 10 - 35 U/L 08/10/2025 3:12 PM EST [facility] Alkaline Phosphatase, Plasma 68 46 - 142 U/L 08/10/2025 3:12 PM EST [facility] Total Bilirubin, Plasma 0.3 0.2 - 1.1 mg/dL 08/10/2025 3:12 PM EST [facility] eGFRcr 96.6 mL/min/1.7 3m*2 08/10/2025 3:12 PM EST [facility] Comment:Reported eGFRcr in m L/min/1.73m2 is based the CKD-EPI 2020 equation that does not use a race coefficient. Blood Venous blood specimen / Unknown Venipuncture / Unknown 08/10/2025 2:20 PM EST 08/10/2025 2:35 PM EST us Chente Sebastian MD LAB BLOOD ORDERABLES Final Res ult [facility] [address] [place] [address] * TSH (08/10/2025 2:20 PM EST) Thyroid Stimulating Hormone, Plasma 2.20 0.40 - 4.20 uIU/mL 08/10/2025 3:12 PM EST [facility] Blood Venous blood specimen / Unknown Venipuncture / Unknown 08/10/2025 2:20 PM EST 08/10/2025 2:35 PM EST us Chente Sebastian MD LAB BLOOD ORDERABLES Final Res ult [facility] [address] [place] [address] * T3, Serum (08/10/2025 2:20 PM EST) T3, Serum 105 87 - 187 ng/dL 08/10/2025 3:12 PM EST [facility] Blood Venous blood specimen / Unknown Venipuncture / Unknown 08/10/2025 2:20 PM EST 08/10/2025 2:35 PM EST Chente Sebastian MD LAB BLOOD ORDERABLES Final Res ult [address] [address] * T4, free (08/10/2025 2:20 PM EST) Free T4, Plasma 1.2 0.8 - 1.7 ng/dL 08/10/2025 3:12 PM EST [facility] Blood Venous blood specimen / Unknown Venipuncture / Unknown 08/10/2025 2:20 PM EST 08/10/2025 2:35 PM EST Chente Sebastian MD LAB BLOOD ORDERABLES Final Res ult [address] [address] documented in this encounter Visit Diagnoses Diagnosis [...] as of this encounter Care Teams Senior Painter Relationship Specialty Start Date End Date System, Provider Not In, [address] [place] [phone] PCP - General Family Medicine 03/23/25 Miguel Perez MD [address] [place] [phone] Consulting Physician Radiation Oncology 04/09/25 Sherin Romero, RN None None Registered Nurse Medical Oncology 07/20/25 documented as of this encounter
--- OUTSIDE RECORDS SUMMARY | 2025-08-10 14:20 | XMS_ITS | Encounter Summary ---
Author Organization [facility] Address [address] [place] [address] Care Team Providers Care Plug Grower Name Role Phone System, Provider Not In MD Primary Care Provider Unavailable Miguel Perez MD Unavailable Sherin Romero RN Unavailable Unavailable Reason for Visit * Reason Comments Follow-up Encounter Details Date Type Department Care Team (Late st Contact Info) Description 08/10/2025 2:20 PM EST Office Visit [facility] Res[facility] [address] [facility], [address]nd [place] [address] Chente Sebastian MD [address] [facility] [address] [place] [address] Glioblastoma multiforme (CMS/HCC) (Primary Dx); Research study patient Social History Tobacco Use Types Packs/Day Years [...] any time in the past 12 m [facility], were you homeless or living in a alf (including now)? No 03/23/2025 CAGE ASSESSMENT Answer [...] drink first t carroll in the morning (EYE-SOCIAL WORKER AIDE) to steady your nerves or to get [...] Sign Reading Time Taken Comments Blood Pressure 125/78 08/10/2025 2:14 PM EST Pulse 75 08/10/2025 2:14 PM EST Temperature 36.8 C (98.2 F) 08/10/2025 2:14 PM EST Respiratory Rate 16 08/10/2025 2:14 PM EST Oxygen Saturation 95% 08/10/2025 2:14 PM EST Inhaled Oxygen Concentration - - Weight 98 kg (216 lb 0.8 oz) 08/10/2025 2:14 PM EST Height 167.6 cm (5' 6 ) 08/10/2025 2:14 PM EST Body Mass Index 34.87 08/10/2025 2:14 PM EST documented in this encounter Miscellaneous Notes * Progress Notes - Darrell Abreu MD - 08/10/2025 2:20 PM EST NEURO ONCOLOGY FOLLOW-UP NOTE Patient Information Patient Name: Herminia Murrell Date of : 1960 Encounter Date: 08/10/25 Treatment Diagnosis: GBM, with EGFR amplification, TERT [...] 07/01/25 TMZ maintenance C1: 06/08-06/12/25 C2: 07/06-07/10/25 Today she is feeling well. Had a good holiday, appetite has been good. Reports some significant fatigue. No seizures or fevers. Reports ongoing loose stools 1- 4 times per day since last infusion. Balance stable. No HARPER. Past Medical, Surgical, Family and Social History Reviewed in this encounter by me personally Subjective Review of Systems: Rest of 14 point organ based review of system was conducted and pertinent negatives and positives are placed in the HPI. Objective Performance Status 80% Visit Vitals BP 125/78 (BP Location: Left arm, Patient Position: Sitting, BP Cuff Size: Adult) Pulse 75 Temp 36.8 ??C (98.2 ??F) (Oral) Resp 16 EXAM Physical Exam [...] Clinically well and will con't with study therapy. Cancer Related Fatigue - Rx methylphenidate - Encouraged exercise #Right LE DVT -Positive US 07/01/25 -continue eliquis #Diarrhea -G1, not likely IO induced -instructed to call if frequency worsens Decreased appetite. Reports improved some lately. Weight stable. Currently consuming one Ensure drink daily and trying to eat healthier, including a keto diet. Offered the option of consulting with a dietitian or using an appetite stimulant, but prefers to try improving diet first. If appetite declines, further interventions will be considered. Darrell Abreu MD Fellow, Hematology and Oncology Patient discussed in detail with attending physician Dr. Romulo [facility]AT[facility] [address] [facility] [phone] No referring provider defined for this encounter Cosigned by Chente Sebastian MD at 08/19/2025 8:12 PM EST Associated attestation - Chente Sebastian MD - 08/19/2025 8:12 PM EST I saw and evaluated the patient with the resident/fellow. I discussed the case with the resident/fellow and agree with the findings and plan as documented. * Progress Notes - Rickie Wagner, Velma - 08/10/2025 2:20 PM EST Pharmacy Hematology/Oncology Treatment Note Herminia Murrell is a 65 y.o. female with GBM (MGMT+, IDH wt) Cancer Staging Glioblastoma multiforme (CMS/HCC) Staging form: High Grade Glioma - Clinical stage from 04/02/2025: Histology: Glioblastoma multiforme, Location: Temporal lobe - Signed by Miguel Perez MD on 04/02/2025 Study Patient: Yes [id number]: A Phase 3, Randomized, Double-Blind, Placebo-Controlled Study of Optune?? (TTFields, 200 kHz) Concomitant with Maintenance Temozolomide and Pembrolizumab Versus Optune?? Concomitant with Maintenance Temozolomide and Placebo for the Treatment of Newly Diagnosed Glioblastoma (EF-41/KEYNOTE D58) Treatment Plan reviewed for GBM-16 Pembrolizumab or Placebo Every 21 Days / Temozolomide maintenance Every 28 Days [x] Follow-Up Clinical Review for Cycle 4 Pembro or Placebo [x] Follow-Up Clinical Review for Cycle 4 TMZ maintenance Interval History: Patient is s/p [...] per GBM-16. TMZ maintenance supply received from [facility] for start of Cycle 1, scheduled for 06/08/25. Labs have been reviewed and are appropriate for treatment on 06/08. 07/01/25: Patient tolerated first adjuvant TMZ maintenance cycle. Labs have been reviewed and are appropriate for next cycle. Will increase TMZ to 200 mg/m2/dose with cycle 2 forward. Updated prescription sent to [facility] today. Labs appropriate for infusion today. Today's Wt: Wt Readings from Last 1 Encounters: 08/10/25 98 kg (216 lb 0.8 oz) Dosing Wt: 103 kg Dosing Ht: 167.6 cm DosingBSA: 2.11 m2 Recent Labs: Lab Results Component Value Date WBC 4.89 08/10/2025 NEUTROABS 3.59 08/10/2025 LYMPHSABS 0.69 (L) 08/10/2025 HGB 12.8 08/10/2025 PLT 259 08/10/2025 Lab Results Component Value Date GLUCOSE 128 (H) 08/10/2025 CALCIUM 9.3 08/10/2025 NA 140 08/10/2025 K 3.5 (L) 08/10/2025 CO2 27 08/10/2025 CL 103 08/10/2025 BUN 12 08/10/2025 CREATININE 0.65 08/10/2025 Lab Results Component Value Date ALT 15 08/10/2025 AST 14 08/10/2025 ALKPHOS 68 08/10/2025 BILITOT 0.3 08/10/2025 Vitals: Visit Vitals BP 125/78 (BP Location: Left arm, Patient Position: Sitting, BP Cuff Size: Adult) Pulse 75 Temp 36.8 ??C (98.2 ??F) (Oral) Resp 16 Other Relevant Monitoring: none Treatment/Therapy Plan: Pembrolizumab 200 mg [flat dose] or Placebo IV on day 1 Every 21 Days + TTFields/Optune Device + Temozolomide 420 mg (140 mg cap x 3; ~199 mg/m2/dose) orally once nightly on days 1-5 Every 28 Days [x] No dose adjustments made Rx sent to: [facility] Refills due: if continued beyond 12 maintenance cycles Current Treatment Plan History: Concurrent TMZ+XRT (03/30-05/08/25) GBM-16 Pembro or Placebo C1: 06/08/25 C2: 07/01/25 C3: 07/22/25 C4: 08/10/25 TMZ maintenance C1: 06/08-06/12/25 C2: 07/06-07/10/25 C3: 08/03-08/07/25 C4: 08/31-09/04/25 Prior Treatment History: none Plan: Patient will return to clinic in 3 weeks with next infusion. Will follow-up at that time. Pharmacist Attestation: Rickie Wagner PharmD Clinical Oncology Pharmacist documented in this encounter Plan of Treatment Upcoming Encounters Date Type Department Care Team (Late st Contact Info) Description 08/31/2025 8:15 AM EST Clinical Support [facility] [address] [facility], [address] [place] [address] 08/31/2025 8:30 AM EST Office Visit [facility] [address] [phone] Gabe Cifuentes, MAINTENANCE JOURNEYMAN 800 [facility] [address] [place] [address] 08/31/2025 10:00 AM EST Appointment [facility] 800 [place] [address] 09/21/2025 9:15 AM EST Clinical Support [facility] [address] [facility], [address] [place] [phone] 09/21/2025 9:30 AM EST Office Visit [facility] [address] [facility], [address] [place] [phone] Gabe Cifuentes, MAINTENANCE JOURNEYMAN [address] [place] [address] 09/21/2025 11:00 AM EST Appointment [facility] [address] [place] [address] 10/05/2025 9:00 AM EST Office Visit [facility] [address], [address] [place] [address] Sanchez Zaldivar MD [address] [place] [address] 10/05/2025 11:00 AM EST Consult [facility] [address], [address] [place] [address] Shy Marquez, JEFFREY [address] [place] [address] Scheduled Orders Name Type Priority Associated Diagnoses Orde r Schedule CBC and differential Lab Routine Glioblastoma multiforme (CMS/HCC) Expected: 08/31/2025, Expires: 08/31/2026 Comprehensive metabolic panel Lab Routine Glioblastoma multiforme (CMS/HCC) Expected: 08/31/2025, Expires: 08/31/2026 Comprehensive Metabolic Panel, Plasma Lab Routine Glioblastoma multiforme (CMS/HCC) Research study patient Expected: 09/21/2025, Expires: 02/13/2027 CBC and Differential Lab Routine Glioblastoma multiforme (CMS/HCC) Research study patient Expected: 09/21/2025, Expires: 02/13/2027 APTT Lab Routine Glioblastoma multiforme (CMS/HCC) Research study patient Expected: 09/21/2025, Expires: 02/13/2027 Thyroid Stimulating Hormone, Plasma Lab Routine Glioblastoma multiforme (CMS/HCC) Research study patient Expected: 09/21/2025, Expires: 02/13/2027 T3 Lab Routine Glioblastoma multiforme (CMS/HCC) Research study patient Expected: 09/21/2025, Expires: 02/13/2027 Free T4, Plasma Lab Routine Glioblastoma multiforme (CMS/HCC) Research study patient Expected: 09/21/2025, Expires: 02/13/2027 Prothrombin Time/INR Lab Routine Glioblastoma multiforme (CMS/HCC) Research study patient Expected: 09/21/2025, Expires: 02/13/2027 documented as of this encounter Visit Diagnoses Diagnosis Glioblastoma multiforme (CMS/HCC)- Primary Malignant neoplasm of brain, unspecified site Research study patient documented in this encounter Additional Health Concerns Assessment Noted Time PHQ-9 Depression Total Score: 6 10/08/19 2:13 PM EST A fall risk assessment has been complete d for the patient 08/10/2025 3:20 PM EST A Body Mass Index follow-up plan has been documented for the patient 07/06/2025 10:36 AM EDT documented as of this encounter Care Teams Plug Grower Relationship Specialty Start Date End Date System, Provider Not In, [place] [address] PCP - General Family Medicine 03/23/25 Miguel Perez MD [address] [place] [address] [address] [place] [address] Consulting Physician Radiation Oncology 04/09/25 Sherin Romero RN None None Registered Nurse Medical Oncology 07/20/25 documented as of this encounter
--- OUTSIDE RECORDS SUMMARY | 2025-08-10 15:00 | XMS_ITS | Encounter Summary ---
Author Organization Healthcare Address [address] [place] [address] Care Team Providers Care Director Network Development Name Role Phone System, Provider Not In MD Primary Care Provider Unavailable Miguel Perez MD Unavailable [phone] Sherin Romero RN Unavailable Unavailable Reason for Visit * Episode Based Medications (Routine) - Authorized Specialty Diagnoses / Procedures Referred By Génesis t Referred To Contact Diagnoses Glioblastoma multiforme (CMS/HCC) Procedures [id number]: Pembrolizumab or Placebo + Optune Every 21 Days / Temozolomide Every 28 Days Chente Sebastian MD [address] [facility] Liyah Conde [address] [address] Phone: tel: fax: Chente Sebastian MD 800 [facility] Liayh Conde [address] [address] Phone: tel: fax: Referral ID Status Reason Start Date Expiration Date V isits Requested Visits Authorized [id number] Authorized 05/29/2025 11/28/2026 1 1 Encounter Details Date Type Department Care Team (Latest Contact Info) Description 08/10/2025 3:00 PM EST - 08/10/2025 11:59 PM EST Hospital Encounter [facility] [address] [place] [id number] Glioblastoma multiforme (CMS/HCC) (Primary Dx) Discharge Disposition: [...] any time in the past 12 m [facility], were you homeless or living in [...] drink first t carroll in the morning (EYE-KEG RAISER) to steady your nerves or to get [...] Sign Reading Time Taken Comments Blood Pressure 136/82 08/10/2025 3:21 PM EST Pulse 70 08/10/2025 3:21 PM EST Temperature 36.9 C (98.5 F) 08/10/2025 3:21 PM EST Respiratory Rate 18 08/10/2025 3:21 PM EST Oxygen Saturation 96% 08/10/2025 3:21 PM EST Inhaled Oxygen Concentration - - Weight 98.3 kg (216 lb 11.4 oz) 08/10/2025 3:21 PM EST Height 167.6 cm (5' 6 ) 08/10/2025 3:21 PM EST Body Mass Index 34.98 08/10/2025 3:21 PM EST documented in this encounter Medications at Time of Discharge Acetaminophen Extra Strength 500 MG tablet TAKE TWO TABLETS BY MOUTH EVERY 6 HOURS NEEDED FOR PAIN 100 tablet 1 06/15/2025 ascorbic acid (Vitamin C) 500 MG tablet Take 1 tablet by mouth daily. 06/01/2025 Ascorbic Acid 22420 MG/30ML solution Infuse 87.5 g into a [...] [facility] [address] [facility], [address]nd [place] [phone] 08/31/2025 8:30 AM EST Office Visit [facility] 800 [facility] [address] [place] [address] Gabe Cifuentes, POLISHING PAD MOUNTER 800 [facility] [address] [address] 08/31/2025 10:00 AM EST Appointment [facility] [address] [place] [address] 09/21/2025 9:15 AM EST Clinical Support [facility] 800 [facility] [address] [place] [address] 09/21/2025 9:30 AM EST Office Visit [facility] [address] [address] Gabe Cifuentes, POLISHING PAD MOUNTER [address] [address] 09/21/2025 11:00 AM EST Appointment [facility] [address] [address] 10/05/2025 9:00 AM EST Office Visit [facility] [address], 1st [place] [address] Sanchez Zaldivar MD [address] [place] [address] 10/05/2025 11:00 AM EST Consult [facility] [address], [address] [place] [address] Shy Marquez APRN [address] [place] [address] documented as of this encounter Visit Diagnoses Diagnosis Glioblastoma multiforme (CMS/HCC)- Primary Malignant neoplasm of brain, unspecified site documented in this encounter Administered Medications Inactive Administered Medications - up to 3 most recent administrations Medication Order MAR Action Action Date Dose Rate Site prochlorperazine (Compazine) tablet 10 mg 10 mg, Oral, Every 6 hours PRN, Starting on Sun08/10/25 at 1524, Until Sun08/11/25 at 0238, Routine, nausea, vomitingIndications:Glioblasto ma multiforme (CMS/HCC) Given 08/10/2025 3:32 PM EST 10 mg RES - pembrolizumab or placebo (Keytruda) 200 mg in sodium chloride 0.9 % 100 mL IVPB 200 mg, Intravenous, at 276 mL/hr, Administer over 30 Minutes, Once, Administer over 25-40 minutes HAZARDOUS - Handle with care Attach a separate 0.2 micron, low protein binding filter. Infuse through dedicated line., On Sun08/10/25 at 1545, For 1 dose, NS 100mLIndications:Glioblastoma multiforme (CMS/HCC) New Bag 08/10/2025 4:38 PM EST 200 mg 276 mL/hr documented in this encounter Additional Health Concerns Assessment Noted Time PHQ-9 Depression Total Score: 6 10/08/19 2:13 PM EST A fall risk assessment has been complete d for the patient 08/10/2025 3:20 PM EST A Body Mass Index follow-up plan has been documented for the patient 07/06/2025 10:36 AM EDT documented as of this encounter Care Teams Director Network Development Relationship Specialty Start Date End Date System, Provider Not In, [place] [address] PCP - General Family Medicine 03/23/25 Miguel Perez MD [address] [place] [address] [address] [place] [address] Consulting Physician Radiation Oncology 04/09/25 Sherin Romero, RN None None Registered Nurse Medical Oncology 07/20/25 documented as of this encounter
[2025-08-22] VITALS (27 sets, daily range): BP systolic 103–179; BP diastolic 58–97; PULSE 73–107; RESP 12–19; TEMP 36.8–37; O2SAT 94–100; BMI 32.3; BMI 35.9
--- NOTE | 2025-08-22 05:09 | CT_ITS ---
PROCEDURE INFORMATION: Exam: CT Abdomen And Pelvis With Contrast Exam date and time: 08/22/2025 6:36 AM Age: 65 years old Clinical indication: Nausea and vomiting; Additional info: N/v/d, reported bilios, brain CA PT, diffuse ttp TECHNIQUE: Imaging protocol: Computed tomography of the abdomen and pelvis with contrast. 3D rendering (Not supervised by radiologist): MIP and/or 3D reconstructed images were created by the technologist. Radiation optimization: All CT scans at this facility use at least one of these dose optimization techniques: automated exposure control; mA and/or kV adjustment per patient size (includes targeted exams where dose is matched to clinical indication); or iterative reconstruction. Contrast material: ISOVUE; Contrast volume: 70 ml; Contrast route: IV; COMPARISON: CT ABDOMEN PELVIS W CON 12/23/2019 8:57 PM FINDINGS: Liver: Normal. No mass. Gallbladder and biliary ducts: Normal. No calcified stones. No ductal dilation. Pancreas: Normal. No ductal dilation. Spleen: Normal. No splenomegaly. Adrenal glands: Normal. No mass. Kidneys and ureters: Normal. No hydronephrosis. Stomach and bowel: Multiple fluid-filled loops of small bowel are seen throughout the abdomen and pelvis measuring less than 2.5 cm in diameter. The distal ileum is decompressed. Some fluid is noted within the colon. Appendix: No evidence of appendicitis. Intraperitoneal space: Unremarkable. No free air. No significant fluid collection. Vasculature: Prominent parapelvic veins are present bilaterally. Lymph nodes: Unremarkable. No enlarged lymph nodes. Urinary bladder: Unremarkable as visualized. Reproductive: Unremarkable as visualized. Bones/joints: Degenerative disc disease with vacuum disc phenomena and disc space narrowing this is most prominent at L5-S1. No acute fracture. Soft tissues: Unremarkable. IMPRESSION: Fluid-filled loops of small bowel are seen throughout the abdomen and pelvis although the distal small bowel is decompressed, the fluid-filled loops all measure less than 2.5 cm and do not meet criteria for a bowel obstruction. This could represent underlying enteritis or possibly a partial small bowel obstruction, correlate with clinical signs and symptoms.
--- OUTSIDE RECORDS SUMMARY | 2025-08-22 05:13 | XMS_ITS | Encounter Summary ---
Author Organization Healthcare Address [address] [place] [address] Care Team Providers Care Screening Unit Registered Nurse Name Role Phone System, Provider Not In Primary Care Provider Unavailable Miguel Perez MD Unavailable [phone] Sherin Romero RN Unavailable Unavailable Encounter Details Date Type Department Care Team (Late st Contact Info) Description 07/21/2025 Telephone [place] [facility] [address], [address]st [place] [address] System, Provider Not In, [address] [place] [address] Social History Tobacco Use Types Packs/Day Years [...] any time in the past 12 m [facility], were you homeless or living in a senior living (including now)? No 03/23/2025 CAGE ASSESSMENT Answer [...] drink first t carroll in the morning (EYE-OPTOMETRY PROFESSOR) to steady your nerves or to [...] Upcoming Encounters Date Type Department Care Team ([facility] st Contact Info) Description 08/31/2025 8:15 AM EST Clinical Support [facility] 800 [facility], [address]nd [place] [address] 08/31/2025 8:30 AM EST Office Visit [facility] [address] [address] Gabe Cifuentes, PRE FABRICATOR 800 [facility] [address] [address] 08/31/2025 10:00 AM EST Appointment [facility] 800 [place] [address] 09/21/2025 9:15 AM EST Clinical Support [facility] [address] [address] 09/21/2025 9:30 AM EST Office Visit [facility] [address] [address] Gabe Cifuentes, PRE FABRICATOR 800 [facility] [address] [address] 09/21/2025 11:00 AM EST Appointment [facility] 800 [place] [address] 10/05/2025 9:00 AM EST Office Visit [facility] [address], 1st [place] [address] Sanchez Zaldivar MD [address] [facility] [address] [place] [address] 10/05/2025 11:00 AM EST Consult [place] [facility] [address], 1st [place] [address] Shy Marquez, PRE FABRICATOR [address] [place] [address] documented as of this encounter [...] documented as of this encounter Care Teams Screening Unit Registered Nurse Relationship Specialty Start Date End Date System, Provider Not In, [address] [place] [address] PCP - General Family Medicine 03/23/25 Miguel Perez MD [address] [place] [address] [address] [place] [address] Consulting Physician Radiation Oncology 04/09/25 Sherin Romero, SKY None None Registered Nurse Medical Oncology 07/20/25 documented as of this encounter
--- OUTSIDE RECORDS SUMMARY | 2025-08-22 05:14 | XMS_ITS | Encounter Summary ---
Author Organization Healthcare Address [address] [place] [address] Care Team Providers Care Molecular Biology Director Name Role Phone System, Provider Not In MD Primary Care Provider Unavailable Miguel Perez MD Unavailable [phone] Sherin Romero RN Unavailable Unavailable Encounter Details Date Type Department Care Team (Late st Contact Info) Description 07/14/2025 Telephone [facility] 800 [facility], 2nd [place] [address] Gabe Cifuentes, OXYGEN THERAPY TECHNICIAN 800 [facility] [address] [place] [address] Social History Tobacco Use Types Packs/Day Years [...] drink first t carroll in the morning (EYE-BULL GANG WORKER) to steady your nerves or to get rid of a hangover? 0 03/20/2025 CAGE Questionnaire Score 0 025 Utilities Answer Date Recorded In the past 12 months has th e [employer], [employer], oil, or water [employer] threatened to shut off services in your home? No 03/23/2025 Comments No Sex and Gender Information Value Date Recorded Sex Assigned at Female 09/22/2024 11:47 AM EST Legal Sex Female 8:04 PM EDT Gender Identity Not on file Sexual Orientation Not on file documented as of this encounter Miscellaneous Notes * Telephone Encounter - Sherin Romero RN - 07/15/2025 11:59 AM EST RN sent requested documents to Radha via email. * Telephone Encounter - Sherin Romero RN - 07/15/2025 7:38 AM EST RN called and left for Radha Amisha and asked if she could give me a call back. Will try againlater. * Telephone Encounter - Unique Ward - 07/14/2025 4:28 PM EST Per call to [facility], infusion center needs an email address or mandolin repair person regarding her infusions expected this week. Radha Del Rosario [phone] [email or web address] documented in this encounter Plan of Treatment Upcoming Encounters Date Type Department Care Team (Late st Contact Info) Description 08/31/2025 8:15 AM EST Clinical Support [facility] 800 [facility], 2nd [place] [address] 08/31/2025 8:30 AM EST Office Visit [facility] 800 [facility], 2nd [place] [address] Gabe Cifuentes, OXYGEN THERAPY TECHNICIAN 800 [facility] Liyah Amaya [facility] [address] [place] [address] 08/31/2025 10:00 AM EST Appointment [facility] 800 [place] [address] 09/21/2025 9:15 AM EST Clinical Support [facility] 800 [facility], 2nd [place] [address] 09/21/2025 9:30 AM EST Office Visit [facility] 800 [facility], 2nd [place] [address] Gabe Cifuentes, OXYGEN THERAPY TECHNICIAN 800 [facility] [address] [place] [address] 09/21/2025 11:00 AM EST Appointment [facility] Precision Medicine [address] [address] 10/05/2025 9:00 AM EST Office Visit [facility] [address], 1st [place] [address] Sanchez Zaldivar MD [address] [facility] [address] [place] [address] 10/05/2025 11:00 AM EST Consult [facility] [address], 1st [place] [address] Shy Marquez, OXYGEN THERAPY TECHNICIAN [address] [facility] [address] [place] [address] documented as of this encounter Visit Diagnoses [...] documented as of this encounter Care Teams Molecular Biology Director Relationship Specialty Start Date End Date System, Provider Not In, [address] [place] [address] PCP - General Family Medicine 03/23/25 Miguel Perez MD [address] [address] Consulting Physician Radiation Oncology 04/09/25 Sherin Romero, RN None None Registered Nurse Medical Oncology 07/20/25 documented as of this encounter
--- OUTSIDE RECORDS SUMMARY | 2025-08-22 05:14 | XMS_ITS | Encounter Summary ---
Author Organization Healthcare Address [address] [place] [address] Care Team Providers Care Collar Runner Name Role Phone System, Provider Not In MD Primary Care Provider Unavailable Miguel Perez MD Unavailable [phone] Reason for Referral * Imaging (Urgent) - Closed Specialty Diagnoses / Procedures Referred By Génesis salgado Referred To Contact Cardiology Diagnoses Pain and swelling of lower extremity, unspecified laterality Procedures VAS US Venous Duplex Lower Extremity Bilateral Chente Sebastian MD 800 [facility] [address] [place] [address] Phone: tel: fax: Referral ID Status Reason Start Date Expiration Date V isits Requested Visits Authorized [id number] Closed Perform Procedure 07/01/2025 12/31/2026 1 1 Encounter Details Date Type Department Care Team (Late st Contact Info) Description 07/01/2025 Orders Only [facility] 800 [facility], 2nd [place] [address] Sherin Romero, RN None None Pain and swelling of lower extremity, unspecified laterality (Primary Dx) Social History Tobacco Use Types [...] time in the past 12 m [facility], were you homeless or living in [...] drink first t carroll in the morning (EYE-DIRECTOR ELECTRONICS) to steady your nerves or to get rid of a hangover? 0 03/20/2025 CAGE Questionnaire Score 0 025 Utilities Answer Date Recorded In the past 12 months has e [employer], gas, oil, or water [employer] threatened to shut off services in your [...] CC Head, Neck & Respiratory [address] [address] 08/31/2025 8:30 AM EST Office Visit [facility] [address] [address] Gabe Cifuentes, WIRELESS RETAIL MANAGER [address] [place] [address] 08/31/2025 10:00 AM EST Appointment [facility] 800 [place] [address] 09/21/2025 9:15 AM EST Clinical Support [facility] [address] [address] 09/21/2025 9:30 AM EST Office Visit [facility] [address] [address] Gabe Cifuentes, WIRELESS RETAIL MANAGER [address] [address] 09/21/2025 11:00 AM EST Appointment P[facility] H [facility] [address] [place] [address] 10/05/2025 9:00 AM EST Office Visit [facility] [address], 1st [place] [address] Sanchez Zaldivar MD [address] [facility] [address] [place] [address] 10/05/2025 11:00 AM EST Consult [facility] [address], 1st [place] [address] Shy Marquez APRN [address] [facility] [address] [place] [address] documented as of this encounter Results * VAS US Venous [...] signing this report, I, the attending physician, attjesusat I have personally reviewed the images/data for the aboveexamination(s) and I agree with the final edited report. Drafted by Enoc Hines RVT on 07/01/2025 12:11 PM Final report signed by Adrienne Muñoz MD on 07/01/2025 3:48 PM Chente Sebastian MD CV VASCULAR PROCEDURES Final R esult documented in this encounter Visit Diagnoses Diagnosis Pain and swelling of lower extremity, unspecified laterality- Primary Pain and swelling of lower extremity, unspecified [...] documented as of this encounter Care Teams Collar Runner Relationship Specialty Start Date End Date System, Provider Not In, [place] [address] PCP - General Family Medicine 03/23/25 Miguel Perez MD [address] [place] [address] [address] [place] [address] Consulting Physician Radiation Oncology 04/09/25 documented as of this encounter
--- OUTSIDE RECORDS SUMMARY | 2025-08-22 05:14 | XMS_ITS | Encounter Summary ---
Author Organization Healthcare Address [address] [place] [address] Care Team Providers Care Technical Administrative Assistant Name Role Phone System, Provider Not In MD Primary Care Provider Unavailable Miguel Perez MD Unavailable [phone] Sherin Romero RN Unavailable Unavailable Encounter Details Date Type Department Care Team (Latest Contact Info) Description 07/22/2025 Travel Social History Tobacco Use Types Packs/Day [...] living in a [facility] (including now)? No 03/23/2025 CAGE ASSESSMENT Answer [...] drink first t carroll in the morning (EYE-MANAGEMENT LIAISON) to steady your nerves or to get [...] CC Head, Neck & Respiratory 800 [facility] 2nd [place] [address] 08/31/2025 8:30 AM EST Office Visit [facility] [address] [address] Gabe Cifuentes, INTERNAL MEDICINE NURSE PRACTITIONER 800 [facility] Liyah Conde [facility] [address] [place] [address] 08/31/2025 10:00 AM EST Appointment [facility] 800 [place] [address] 09/21/2025 9:15 AM EST Clinical Support [facility] [address] [address] 09/21/2025 9:30 AM EST Office Visit [facility] [address] [address] Gabe Cifuentes, INTERNAL MEDICINE NURSE PRACTITIONER 800 [facility] Liyah Conde [address] [place] [address] 09/21/2025 11:00 AM EST Appointment [facility] 800 [place] [address] 10/05/2025 9:00 AM EST Office Visit [facility] [address], 1st [place] [address] Sanchez Zaldivar MD [address] [place] [address] 10/05/2025 11:00 AM EST Consult [facility] [address], [address] [place] [address] Shy Marquez, JEFFREY [address] [place] [address] documented as of this encounter Visit Diagnoses [...] documented as of this encounter Care Teams Technical Administrative Assistant Relationship Specialty Start Date End Date System, Provider Not In, [address] [place] [address] PCP - General Family Medicine 03/23/25 Miguel Perez MD [address] [place] [address] [address] [place] [address] Consulting Physician Radiation Oncology 04/09/25 Sherin Romero RN None None Registered Nurse Medical Oncology 07/20/25 documented as of this encounter
--- OUTSIDE RECORDS SUMMARY | 2025-08-22 05:14 | XMS_ITS | Encounter Summary ---
Author Organization Healthcare Address [address] [place] [address] Care Team Providers Care Insulation Cutter Name Role Phone System, Provider Not In MD Primary Care Provider Unavailable Miguel Perez MD Unavailable [phone] Reason for Visit * Reason Comments Resource Navigation Encounter Details Date Type Department Care Team (Late st Contact Info) Description 07/01/2025 Social Work Psych Oncology [address] [place] [address] Luisa Villafana Social History Tobacco Use Types Packs/Day Years [...] in the past 12 m [facility], were you homeless or living in a prison (including now)? No 03/23/2025 CAGE ASSESSMENT Answer [...] drink first t carroll in the morning (EYE-PAINTER DECORATOR) to steady your nerves or to get [...] encounter Miscellaneous Notes * Progress Notes - VillafanaLuisa - 07/01/2025 3:42 PM EDT Encounter Type: In Person Visit Disease Status: Established Patient Clinic Location: [facility] Disease Type: Brain & Other Nervous System Services Provided: Gift / Gas Card Gift Card Type: [employer] Gift Card Amount: 100 Education Provided: Wigs/Headcoverings Intervention Level: 3 Units (1 unit = 15 minutes): 2 Narrative: FRONT OFFICE JAVA DEVELOPER met with pt per clinic request regarding wig resources. FRONT OFFICE JAVA DEVELOPER introduced self and nature of the visit. Pt was pleasant and engaging during the visit today. Pt disclosed that she found a wig and inquired of financial assistance. FRONT OFFICE JAVA DEVELOPER discussed with pt [employer] funds and limited assistance. FRONT OFFICE JAVA DEVELOPER additionally educated pt of psych onc wigs, [place] [employer], [employer], and [employer] wig options.Pt was understanding and was agreeable to financial assistance for the wig she has picked out. FRONT OFFICE JAVA DEVELOPER was able to provide pt with $100 Zohreh Noribachiop to assist with purchase of wig. Pt was appreciative for the assistance and denied additional questions or needs at this time. FRONT OFFICE JAVA DEVELOPER provided pt with contact in formation for follow up should additional needs arise. FRONT OFFICE JAVA DEVELOPER remains available ongoing prn. Luisa Villafana PRODUCT OPERATIONS ASSOCIATE, FRONT OFFICE JAVA DEVELOPER [phone] documented in this encounter Plan of Treatment Upcoming Encounters Date Type Department Care Team (Late st Contact Info) Description 08/31/2025 8:15 AM EST Clinical Support [facility] Res[facility] 800 [facility], 2nd [place] [address] 08/31/2025 8:30 AM EST Office Visit [facility] 800 [facility], 2nd [place] [address] Gabe Cifuentes, TORPEDO WORKER 800 [facility] Liyah Amaya [facility] [address] [place] [address] 08/31/2025 10:00 AM EST Appointment [facility] 800 [place] [address] 09/21/2025 9:15 AM EST Clinical Support [facility] 800 [facility], 2nd [place] [address] 09/21/2025 9:30 AM EST Office Visit [facility] 800 [facility], 2nd [place] [address] Gabe Cifuentes, TORPEDO WORKER 800 [facility] [address] [place] [address] 09/21/2025 11:00 AM EST Appointment [facility] [address] [place] [address] 10/05/2025 9:00 AM EST Office Visit [facility] [address], 1st [place] [address] Sanchez Zaldivar MD [address] [facility] [address] [place] [address] 10/05/2025 11:00 AM EST Consult [facility] [address], 1st [place] [address] Shy Marquez, JEFFREY [address] [place] [address] documented as of this encounter Visit Diagnoses [...] documented as of this encounter Care Teams Insulation Cutter Relationship Specialty Start Date End Date System, Provider Not In, [address] [place] [address] PCP - General Family Medicine 03/23/25 Miguel Perez MD 800 [facility] [address] [place] [address] Consulting Physician Radiation Oncology 04/09/25 documented as of this encounter
--- OUTSIDE RECORDS SUMMARY | 2025-08-22 05:14 | XMS_ITS | Encounter Summary ---
Author Organization Healthcare Address [address] [place] [address] Care Team Providers Care Assistant Secretary Name Role Phone System, Provider Not In MD Primary Care Provider Unavailable Miguel Perez MD Unavailable [phone] Sherin Romero RN Unavailable Unavailable Encounter Details Date Type Department Care Team (Late st Contact Info) Description 06/29/2025 Telephone [facility] [address] [place] [address] Pedro Jefferson, PharmD None None Social History Tobacco Use Types Packs/Day Years [...] in a skilled nursing (including now)? No 03/23/2025 CAGE ASSESSMENT Answer [...] drink first t carroll in the morning (EYE-CASING MATERIAL WEIGHER) to steady your nerves or to get [...] encounter Miscellaneous Notes * Telephone Encounter - Rickie Wagner PharmD - 07/01/2025 10:47 AM EDT Thanks! We have sent the new prescription to [facility]. documented in this encounter Plan of Treatment Upcoming Encounters Date Type Department Care Team (Late st Contact Info) Description 08/31/2025 8:15 AM EST Clinical Support [facility] 800 [facility] 2nd [place] [address] 08/31/2025 8:30 AM EST Office Visit [facility] [address] [address] Gabe Cifuentes, HEALTH COUNSELOR [address] [address] 08/31/2025 10:00 AM EST Appointment [facility] 800 [place] [address] 09/21/2025 9:15 AM EST Clinical Support [facility] [address] [address] 09/21/2025 9:30 AM EST Office Visit [facility] [address] [address] Gabe Cifuentes, HEALTH COUNSELOR [address] [address] 09/21/2025 11:00 AM EST Appointment [facility] [address] [place] [address] 10/05/2025 9:00 AM EST Office Visit [place] [facility] [address], [address]st [place] [address] Sanchez Zaldivar MD [address] [place] [address] 10/05/2025 11:00 AM EST Consult [place] [facility] [address], [address] [place] [address] Shy Marquez APRN [address] [place] [address] documented as of this encounter Visit Diagnoses Not on filedocumented in this encounter Additional Health Concerns Assessment Noted Time PHQ-9 Depression Total Score: 6 10/08/19 2:13 PM EST A fall risk assessment has been complete d for the patient 06/08/2025 10:28 AM EDT A Body Mass Index follow-up plan has been documented for the patient 06/08/2025 1:01 PM EDT documented as of this encounter Care Teams Assistant Secretary Relationship Specialty Start Date End Date System, Provider Not In, [address] [place] [address] PCP - General Family Medicine 03/23/25 Miguel Perez MD [address] [place] [address] [address] [place] [address] Consulting Physician Radiation Oncology 04/09/25 Sherin Romero, RN None None Registered Nurse Medical Oncology 07/20/25 documented as of this encounter
--- OUTSIDE RECORDS SUMMARY | 2025-08-22 05:14 | XMS_ITS | Encounter Summary ---
Author Organization Healthcare Address [address] [place] [address] Care Team Providers Care Forest Logistics Manager Name Role Phone System, Provider Not In MD Primary Care Provider Unavailable Miguel Perez MD Unavailable [phone] Encounter Details Date Type Department Care Team (Late st Contact Info) Description 07/02/2025 Orders Only [facility] 800 [facility], 2nd [place] [address] Chente Sebastian MD 800 [facility] [address] [place] [address] Social History Tobacco Use Types Packs/Day Years [...] the past 12 m [facility], were you homeless or living [...] drink first t carroll in the morning (EYE-TANK FARM OPERATOR) to steady your nerves or to get rid of a hangover? 0 03/20/2025 CAGE Questionnaire Score 0 025 Utilities Answer Date Recorded In the past 12 months has th e [employer], gas, oil, or water company threatened to shut off services in your home? No 03/23/2025 Comments No Sex and Gender Information Value Date Recorded Sex Assigned at Female 09/22/2024 11:47 AM EST Legal Sex Female 8:04 PM EDT Gender Identity Not on file Sexual Orientation Not on file documented as of this encounter Plan of Treatment Upcoming Encounters Date Type Department Care Team ([facility] st Contact Info) Description 08/31/2025 8:15 AM EST Clinical Support [facility] [address] [address] 08/31/2025 8:30 AM EST Office Visit [facility] [address] [address] Gabe Cifuentes, SHEET METAL SHOP FOREMAN 800 [facility] [address] [address] 08/31/2025 10:00 AM EST Appointment [facility] 800 [place] [address] 09/21/2025 9:15 AM EST Clinical Support [facility] [address] [address] 09/21/2025 9:30 AM EST Office Visit [facility] [address] [address] Gabe Cifuentes, SHEET METAL SHOP FOREMAN [address] [address] 09/21/2025 11:00 AM EST Appointment [facility] 800 [place] [address] 10/05/2025 9:00 AM EST Office Visit [place] [facility] [address], 1st [place] [address] Sanchez Zaldivar MD [address] [facility] [address] [place] [address] 10/05/2025 11:00 AM EST Consult [place] [facility] [address], 1st [place] [address] Jimmy Shy, SHEET METAL SHOP FOREMAN [address] [place] [address] documented as of this encounter [...] documented as of this encounter Care Teams Forest Logistics Manager Relationship Specialty Start Date End Date System, Provider Not In, [address] [place] [address] PCP - General Family Medicine 03/23/25 Miguel Perez MD [address] [place] [address] [address] [place] [address] Consulting Physician Radiation Oncology 04/09/25 documented as of this encounter
--- OUTSIDE RECORDS SUMMARY | 2025-08-22 05:14 | XMS_ITS | Encounter Summary ---
Author Organization Healthcare Address [address] [place] [address] Care Team Providers Care Offender Employment Specialist Name Role Phone System, Provider Not In MD Primary Care Provider Unavailable Miguel Perez MD Unavailable [phone] Sherin Romero RN Unavailable Unavailable Encounter Details Date Type Department Care Team (Latest Contact Info) Description 08/09/2025 Travel Social History Tobacco Use Types Packs/Day [...] time in the past 12 m [facility], were you homeless or living in [...] drink first t carroll in the morning (EYE-CONSULTING SOFTWARE ENGINEER) to steady your nerves or to [...] Neck & Respiratory 800 [facility] 2nd [place] [address] 08/31/2025 8:30 AM EST Office Visit [facility] [address] [phone] Gabe Cifuentes, LABORER BEAM HOUSE 800 [facility] Liyah Conde [facility] [address] [place] [address] 08/31/2025 10:00 AM EST Appointment [facility] 800 [place] [address] 09/21/2025 9:15 AM EST Clinical Support [facility] [address] [address] 09/21/2025 9:30 AM EST Office Visit [facility] [address] [phone] Gabe Cifuentes, LABORER BEAM HOUSE 800 [facility] Liyah Conde dg [address] [place] [address] 09/21/2025 11:00 AM EST Appointment [facility] 800 [place] [address] 10/05/2025 9:00 AM EST Office Visit [facility] [address], 1st [place] [address] Sanchez Zaldivar MD [address] [place] [address] 10/05/2025 11:00 AM EST Consult [facility] [address], 1st [place] [address] Shy Marquez, JEFFREY [address] [place] [address] documented as of this encounter Visit Diagnoses [...] documented as of this encounter Care Teams Offender Employment Specialist Relationship Specialty Start Date End Date System, Provider Not In, [address] [place] [address] PCP - General Family Medicine 03/23/25 Miguel Perez MD [address] [place] [address] [address] [place] [address] Consulting Physician Radiation Oncology 04/09/25 Sherin Romero RN None None Registered Nurse Medical Oncology 07/20/25 documented as of this encounter
--- OUTSIDE RECORDS SUMMARY | 2025-08-22 05:14 | XMS_ITS | Encounter Summary ---
Author Organization Healthcare Address [address] [place] [address] Care Team Providers Care Junior Financial Analyst Name Role Phone System, Provider Not In MD Primary Care Provider Unavailable Miguel Perez MD Unavailable [phone] Encounter Details Date Type Department Care Team (Latest Contact Info) Description 07/01/2025 Travel Social History Tobacco Use Types Packs/Day [...] any time in the past 12 m [facility], were you homeless or living [...] drink first t carroll in the morning (EYE-FITNESS LEADER) to steady your nerves or to get [...] [facility] [address] [phone] 08/31/2025 8:30 AM EST Office Visit [facility] [address] [phone] Gabe Cifuentes, PHOTOGRAPHY TEACHER 800 [facility] Liyah Conde [facility] [address] [place] [address] 08/31/2025 10:00 AM EST Appointment [facility] [address] [place] [phone] 09/21/2025 9:15 AM EST Clinical Support [facility] [address] [phone] 09/21/2025 9:30 AM EST Office Visit [facility] [address] [address] Gabe Cifuentes, PHOTOGRAPHY TEACHER 800 [facility] Amaya [facility] [address] [place] [address] 09/21/2025 11:00 AM EST Appointment [facility] 800 [place] [address] 10/05/2025 9:00 AM EST Office Visit [facility] [address], 1st [place] [address] Sanchez Zaldivar MD [address] [place] [address] 10/05/2025 11:00 AM EST Consult [facility] [address], 1st [place] [address] Shy Marquez, PHOTOGRAPHY TEACHER [address] [place] [address] documented as of this encounter [...] documented as of this encounter Care Teams Junior Financial Analyst Relationship Specialty Start Date End Date System, Provider Not In, [place] [address] PCP - General Family Medicine 03/23/25 Miguel Perez MD [address] [place] [address] [address] [place] [address] Consulting Physician Radiation Oncology 04/09/25 documented as of this encounter
--- OUTSIDE RECORDS SUMMARY | 2025-08-22 05:14 | XMS_ITS | Encounter Summary ---
Author Organization Healthcare Address [address] [place] [address] Care Team Providers Care Brush Maker Name Role Phone System, Provider Not In MD Primary Care Provider Unavailable Miguel Perez MD Unavailable [phone] Encounter Details Date Type Department Care Team (Late st Contact Info) Description 07/15/2025 Orders Only [facility] 800 [facility], 2nd [place] [address] Rickie Wagner, PharmD 800 [facility] [address] [place] [address] Social History Tobacco Use Types Packs/Day Years [...] living in a fdc (including now)? No 03/23/2025 CAGE ASSESSMENT Answer [...] drink first t carroll in the morning (EYE-ORTHODONTIC ASSISTANT) to steady your nerves or to get rid of a hangover? 0 03/20/2025 CAGE Questionnaire Score 0 025 Utilities Answer Date Recorded In the past 12 months has th e [employer], gas, oil, or water [employer] threatened to shut off services in your home? No 03/23/2025 Comments No Sex and Gender Information Value Date Recorded Sex Assigned at Female 09/22/2024 11:47 AM EST Legal Sex Female 8:04 PM EDT Gender Identity Not on file Sexual Orientation Not on file documented as of this encounter Plan of Treatment Upcoming Encounters Date Type Department Care Team ([facility] st Contact Info) Description 08/31/2025 8:15 AM EST Clinical Support [facility] 800 [facility] 2nd [place] [address] 08/31/2025 8:30 AM EST Office Visit [facility] [address] [address] Gabe Cifuentes, PET CARE ASSOCIATE 800 [facility] [address] [address] 08/31/2025 10:00 AM EST Appointment [facility] 800 [place] [address] 09/21/2025 9:15 AM EST Clinical Support [facility] [address] [address] 09/21/2025 9:30 AM EST Office Visit [facility] [address] [address] Gabe Cifuentes, PET CARE ASSOCIATE [address] [address] 09/21/2025 11:00 AM EST Appointment [facility] 800 [place] [address] 10/05/2025 9:00 AM EST Office Visit [place] [facility] [address], 1st [place] [address] Sanchez Zaldivar MD [address] [place] [address] 10/05/2025 11:00 AM EST Consult [place] [facility] [address], 1st [place] [address] Krystalyuniel Shy, PET CARE ASSOCIATE [address] [place] [address] documented as of this encounter [...] documented as of this encounter Care Teams Brush Maker Relationship Specialty Start Date End Date System, Provider Not In, [address] [place] [address] PCP - General Family Medicine 03/23/25 Miguel Perez MD [address] [place] [address] [address] [place] [address] Consulting Physician Radiation Oncology 04/09/25 documented as of this encounter
--- OUTSIDE RECORDS SUMMARY | 2025-08-22 05:14 | XMS_ITS | Encounter Summary ---
Author Organization Healthcare Address [address] [place] [address] Care Team Providers Care Personnel Administrator Name Role Phone System, Provider Not In MD Primary Care Provider Unavailable Miguel Perez MD Unavailable [phone] Encounter Details Date Type Department Care Team (Late st Contact Info) Description 07/01/2025 Orders Only [facility] [address] , 2nd [place] [address] Sherin Romero, RN None None Glioblastoma multiforme (CMS/HCC) (Primary Dx) Social History [...] drink first t carroll in the morning (EYE-OYSTERMAN) to steady your nerves or to get [...] Upcoming Encounters Date Type Department Care Team ([facility] st Contact Info) Description 08/31/2025 8:15 AM EST Clinical Support [facility] [address] [address] 08/31/2025 8:30 AM EST Office Visit [facility] [address] [address] Gabe Cifuentes, LINE COOK 800 [facility] [address] [place] [address] 08/31/2025 10:00 AM EST Appointment [facility] [address] [place] [address] 09/21/2025 9:15 AM EST Clinical Support [facility] [address] [address] 09/21/2025 9:30 AM EST Office Visit [facility] [address] [address] Gabe Cifuentes, LINE COOK 800 [facility] [address] [address] 09/21/2025 11:00 AM EST Appointment [facility] 800 [place] [address] 10/05/2025 9:00 AM EST Office Visit [place] [facility] [address], 1st [place] [address] Sanchez Zaldivar MD [address] [facility] [address] [place] [address] 10/05/2025 11:00 AM EST Consult [place] [facility] [address], 1st [place] [address] Shy Marquez, LINE COOK [address] [place] [address] documented as of this encounter [...] documented as of this encounter Care Teams Personnel Administrator Relationship Specialty Start Date End Date System, Provider Not In, [place] [address] PCP - General Family Medicine 03/23/25 Miguel Perez MD [address] [place] [address] [address] [place] [address] Consulting Physician Radiation Oncology 04/09/25 documented as of this encounter
--- OUTSIDE RECORDS SUMMARY | 2025-08-22 05:14 | XMS_ITS | Encounter Summary ---
Author Organization Healthcare Address [address] [place] [address] Care Team Providers Care Mathematics Instructor Name Role Phone System, Provider Not In Primary Care Provider Unavailable Miguel Perez MD Unavailable [phone] Sherin Romero RN Unavailable Unavailable Encounter Details Date Type Department Care Team (Late st Contact Info) Description 07/22/2025 Telephone [place] [facility] [address], 1st [place] [address] System, Provider Not In, [address] [place] [address] Social History Tobacco Use Types Packs/Day Years [...] were you homeless or living in a halfway (including now)? No 03/23/2025 CAGE ASSESSMENT Answer [...] drink first t carroll in the morning (EYE-LOSS PREVENTION RESEARCH ENGINEER) to steady your nerves or to [...] Upcoming Encounters Date Type Department Care Team ([facility] st Contact Info) Description 08/31/2025 8:15 AM EST Clinical Support [facility] 800 [facility], 2nd [place] [address] 08/31/2025 8:30 AM EST Office Visit [facility] [address] [address] Gabe Cifuentes, SOUND ENGINEERING TECHNICIAN 800 [facility] [address] [address] 08/31/2025 10:00 AM EST Appointment [facility] 800 [place] [address] 09/21/2025 9:15 AM EST Clinical Support [facility] [address] [address] 09/21/2025 9:30 AM EST Office Visit [facility] [address] [address] Gabe Cifuentes, SOUND ENGINEERING TECHNICIAN 800 [facility] [address] [address] 09/21/2025 11:00 AM EST Appointment [facility] 800 [place] [address] 10/05/2025 9:00 AM EST Office Visit [facility] [address], 1st [place] [address] Sanchez Zaldivar MD [address] [place] [address] 10/05/2025 11:00 AM EST Consult [place] [facility] [address], 1st [place] [address] Shy Marquez, SOUND ENGINEERING TECHNICIAN [address] [place] [address] documented as of this encounter [...] documented as of this encounter Care Teams Mathematics Instructor Relationship Specialty Start Date End Date System, Provider Not In, [address] [place] [address] PCP - General Family Medicine 03/23/25 Miguel Perez MD [address] [place] [address] [address] [place] [address] Consulting Physician Radiation Oncology 04/09/25 Sherin Romero, SKY None None Registered Nurse Medical Oncology 07/20/25 documented as of this encounter
--- OUTSIDE RECORDS SUMMARY | 2025-08-22 05:14 | XMS_ITS | Encounter Summary ---
Author Organization Healthcare Address [address] [place] [address] Care Team Providers Care Vegetable Grader Name Role Phone System, Provider Not In MD Primary Care Provider Unavailable Miguel Perez MD Unavailable [phone] Sherin Romero RN Unavailable Unavailable Encounter Details Date Type Department Care Team (Late st Contact Info) Description 07/21/2025 Orders Only [facility] 800 [facility], 2nd [place] [address] Chente Sebastian MD 800 [facility] [address] [place] [address] Glioblastoma multiforme (CMS/HCC) (Primary Dx); Exam for clinical research Social History Tobacco [...] drink first t carroll in the morning (EYE-USPS LETTER CARRIER) to steady your nerves or to get [...] [facility] Respiratory 800 [facility] 2nd [place] [address] 08/31/2025 8:30 AM EST Office Visit [facility] [address] [address] Gabe Cifuentes, ROLL BUCKER [address] [address] 08/31/2025 10:00 AM EST Appointment [facility] 800 [place] [address] 09/21/2025 9:15 AM EST Clinical Support [facility] [address] [address] 09/21/2025 9:30 AM EST Office Visit [facility] [address] [address] Gabe Cifuentes, ROLL BUCKER [address] [address] 09/21/2025 11:00 AM EST Appointment [facility] 800 [place] [address] 10/05/2025 9:00 AM EST Office Visit [place] [facility] [address], 1st [place] [address] Sanchez Zaldivar MD [address] [place] [address] 10/05/2025 11:00 AM EST Consult [place] [facility] [address], [address] [place] [address] Shy Marquez, ROLL BUCKER [address] [place] [address] documented as of this encounter Results * APTT (07/22/2025 1:31 PM EST) aPTT 29 25 - 35 sec LAB COAGULATION METHOD 07/22/2025 2:15 PM EST [facility] Blood Venous blood specimen / Unknown Venipuncture / Unknown 07/22/2025 1:31 PM EST 07/22/2025 1:56 PM EST Chente Sebastian MD LAB BLOOD ORDERABLES Final Res ult [facility] [address] [place] [address] * (ABNORMAL) Prothrombin Time/INR (07/22/2025 1:31 PM EST) Prothrombin Time 15.2(H) 12.0 - 14.3 sec LAB COAGULATION METHOD 07/22/2025 2:15 PM EST [facility] INR 1.2(H) 0.9 - 1.1 LAB COAGULATION METHOD 07/22/2025 2:15 PM EST [facility] Blood Venous blood specimen / Unknown Venipuncture / Unknown 07/22/2025 1:31 PM EST 07/22/2025 1:56 PM EST Narrative [facility] - 07/22/2025 2:15 PM EST [...] MD LAB BLOOD ORDERABLES Final Res ult [facility] [address] [place] [address] documented in this encounter Visit Diagnoses Diagnosis Glioblastoma multiforme (CMS/HCC)- Primary Malignant neoplasm of brain, unspecified site Exam [...] documented as of this encounter Care Teams Vegetable Grader Relationship Specialty Start Date End Date System, Provider Not In, [address] [place] [address] PCP - General Family Medicine 03/23/25 Miguel Perez MD [address] [place] [address] [address] [place] [address] Consulting Physician Radiation Oncology 04/09/25 Sherin Romero RN None None Registered Nurse Medical Oncology 07/20/25 documented as of this encounter
--- OUTSIDE RECORDS SUMMARY | 2025-08-22 05:14 | XMS_ITS | Encounter Summary ---
Author Organization Healthcare Address [address] [place] [address] Care Team Providers Care Automatic Engraver Name Role Phone System, Provider Not In MD Primary Care Provider Unavailable Miguel Perez MD Unavailable [phone] Encounter Details Date Type Department Care Team (Late st Contact Info) Description 06/30/2025 Orders Only [facility] [address] , [address] [place] [address] Ashlyn Irvin RN ```````````````````````` ```HOSP. OBSTETRICS, POST None Social History Tobacco Use Types Packs/Day [...] in the past [address] [facility], were you homeless or living [...] drink first t carroll in the morning (EYE-WAGE HAND) to steady your nerves or to get [...] Upcoming Encounters Date Type Department Care Team ([facility] st Contact Info) Description 08/31/2025 8:15 AM EST Clinical Support [facility] 800 [facility] 2nd [place] [address] 08/31/2025 8:30 AM EST Office Visit [facility] [address] [address] Gabe Cifuentes, ALGOLOGY TEACHER 800 [facility] Amaya [address] [address] 08/31/2025 10:00 AM EST Appointment [facility] 800 [place] [address] 09/21/2025 9:15 AM EST Clinical Support [facility] [address] [address] 09/21/2025 9:30 AM EST Office Visit [facility] [address] [address] Gabe Cifuentes, ALGOLOGY TEACHER 800 [facility] Li[address] [address] 09/21/2025 11:00 AM EST Appointment [facility] 800 [place] [address] 10/05/2025 9:00 AM EST Office Visit [place] [facility] [address], 1st [place] [address] Sanchez Zaldivar MD [address] [place] [address] 10/05/2025 11:00 AM EST Consult [place] [facility] [address], 1st [place] [address] Shy Marquez, ALGOLOGY TEACHER [address] [place] [address] documented as of this encounter [...] documented as of this encounter Care Teams Automatic Engraver Relationship Specialty Start Date End Date System, Provider Not In, [place] [address] PCP - General Family Medicine 03/23/25 Miguel Perez MD [address] [place] [address] [address] [place] [address] Consulting Physician Radiation Oncology 04/09/25 documented as of this encounter
--- OUTSIDE RECORDS SUMMARY | 2025-08-22 05:14 | XMS_ITS | Encounter Summary ---
Author Organization Healthcare Address [address] [place] [address] Care Team Providers Care Casino Accountant Name Role Phone System, Provider Not In MD Primary Care Provider Unavailable Miguel Perez MD Unavailable [phone] Sherin Romero RN Unavailable Unavailable Encounter Details Date Type Department Care Team (Late st Contact Info) Description 08/05/2025 Orders Only [facility] 800 [facility], 2nd [place] [address] Chente Sebastian MD 800 [facility] [address] [place] [address] Glioblastoma multiforme (CMS/HCC) (Primary Dx); Exam for [...] Have you had a drink first t craroll in the morning (EYE-LEAD MASSAGE THERAPIST) to steady your nerves or to get [...] [facility] 800 [facility] 2nd [place] [address] 08/31/2025 8:30 AM EST Office Visit [facility] [address] [address] Gabe Cifuentes, IT SECURITY ARCHITECT [address] [address] 08/31/2025 10:00 AM EST Appointment [facility] 800 [place] [address] 09/21/2025 9:15 AM EST Clinical Support [facility] [address] [address] 09/21/2025 9:30 AM EST Office Visit [facility] [address] [address] Gabe Cifuentes, IT SECURITY ARCHITECT [address] [address] 09/21/2025 11:00 AM EST Appointment [facility] 800 [place] [address] 10/05/2025 9:00 AM EST Office Visit [place] [facility] [address], 1st [place] [address] Sanchez Zaldivar MD [address] [place] [address] 10/05/2025 11:00 AM EST Consult [place] [facility] [address], [address] [place] [address] Shy Marquez, IT SECURITY ARCHITECT [address] [place] [address] documented as of this encounter Results * APTT (08/10/2025 2:20 PM EST) aPTT 27 25 - 35 sec LAB COAGULATION METHOD 08/10/2025 3:[address] [facility] Blood Venous blood specimen / Unknown Venipuncture / Unknown 08/10/2025 2:20 PM EST 08/10/2025 2:35 PM EST Chente Sebastian MD LAB BLOOD ORDERABLES Final Res ult [facility] [address] [place] [address] * (ABNORMAL) Prothrombin Time/INR (08/10/2025 2:20 PM EST) Prothrombin Time 15.6(H) 12.0 - 14.3 sec LAB COAGULATION METHOD 08/10/2025 3:[address] [facility] INR 1.2(H) 0.9 - 1.1 LAB COAGULATION METHOD 08/10/2025 3:[address] [facility] Blood Venous blood specimen / Unknown Venipuncture / Unknown 08/10/2025 2:20 PM EST 08/10/2025 2:[address] [facility] - 08/10/2025 3:07 PM EST OPTIMAL INR RANGES FOR PATIENT ON ORAL ANTICOAGULANT THERAPY Prevention of venous thromboembolism INR 2.0 to 3.0 In patients with heart disease: Atrial fibrillation INR 2.0 to 3.0 Valvular heart disease INR 2.0 to 3.0 Tissue heart valves INR 2.0 to 3.0 Mechanical prosthetic valves INR 2.5 to 3.5 Prevention of recurrent SD INR 2.5 to 3.5 us Chente Sebastian MD LAB BLOOD ORDERABLES Final Res ult [facility] [address] [place] [id number] documented in this encounter Visit Diagnoses Diagnosis [...] documented as of this encounter Care Teams Casino Accountant Relationship Specialty Start Date End Date System, Provider Not In, [address] [place] [address] PCP - General Family Medicine 03/23/25 Miguel Perez MD [address] [place] [address] [address] [place] [address] Consulting Physician Radiation Oncology 04/09/25 Sherin Romero, RN None None Registered Nurse Medical Oncology 07/20/25 documented as of this encounter
--- OUTSIDE RECORDS SUMMARY | 2025-08-22 05:14 | XMS_ITS | Encounter Summary ---
Author Organization Healthcare Address [address] [place] [address] Care Team Providers Care Industrial Hygiene Engineer Name Role Phone System, Provider Not In MD Primary Care Provider Unavailable Miguel Perez MD Unavailable [phone] Encounter Details Date Type Department Care Team (Latest Contact Info) Description 07/06/2025 Travel Social History Tobacco Use Types Packs/Day [...] any time in the past 12 m [facility], were you homeless or living in a care home (including now)? No 03/23/2025 CAGE ASSESSMENT Answer [...] drink first t carroll in the morning (EYE-PAROLE OR PROBATION OFFICER) to steady your nerves or to [...] [facility] [address] [phone] 08/31/2025 8:30 AM EST Office Visit [facility] [address] [phone] Gabe Cifuentes, EXAMINATION PROCTOR 800 [facility] Liyah Conde [facility] [address] [place] [address] 08/31/2025 10:00 AM EST Appointment [facility] [address] [place] [phone] 09/21/2025 9:15 AM EST Clinical Support [facility] [address] [phone] 09/21/2025 9:30 AM EST Office Visit [facility] [address] [phone] Gabe Cifuentes, EXAMINATION PROCTOR 800 [facility] Amaya [facility] [address] [place] [address] 09/21/2025 11:00 AM EST Appointment [facility] 800 [place] [address] 10/05/2025 9:00 AM EST Office Visit [facility] [address], 1st [place] [address] Sanchez Zaldivar MD [address] [place] [address] 10/05/2025 11:00 AM EST Consult [facility] [address], [address] [place] [address] Shy Marquez, EXAMINATION PROCTOR [address] [place] [address] documented as of this encounter [...] documented as of this encounter Care Teams Industrial Hygiene Engineer Relationship Specialty Start Date End Date System, Provider Not In, [place] [address] PCP - General Family Medicine 03/23/25 Miguel Perez MD [address] [place] [address] [address] [place] [address] Consulting Physician Radiation Oncology 04/09/25 documented as of this encounter
--- OUTSIDE RECORDS SUMMARY | 2025-08-22 05:14 | XMS_ITS | Encounter Summary ---
Author Organization Healthcare Address [address] [place] [address] Care Team Providers Care Barback Name Role Phone System, Provider Not In MD Primary Care Provider Unavailable Miguel Perez MD Unavailable [phone] Sherin Romero RN Unavailable Unavailable Encounter Details Date Type Department Care Team (Late st Contact Info) Description 07/17/2025 Orders Only [facility] 800 [facility], 2nd [place] [phone] Chente Sebastian MD 800 [facility] [address] [place] [address] Social History Tobacco Use Types Packs/Day Years [...] in the past 12 m [facility], were you homeless or living in a [...] drink first t carroll in the morning (EYE-CABINETMAKER APPRENTICE) to steady your nerves or to get rid of a hangover? 0 03/20/2025 CAGE Questionnaire Score 0 025 Utilities Answer Date Recorded In the past 12 months has th e [employer], [employer], oil, or water [employer] threatened to shut off services in your [...] [facility] [address] [address] 08/31/2025 8:30 AM EST Office Visit [facility] [address] [address] Gabe Cifuentes, RELATIONSHIP BANKER [address] [address] 08/31/2025 10:00 AM EST Appointment [facility] 800 [place] [address] 09/21/2025 9:15 AM EST Clinical Support [facility] [address] [address] 09/21/2025 9:30 AM EST Office Visit [facility] [address] [address] Gabe Cifuentes, RELATIONSHIP BANKER [address] [address] 09/21/2025 11:00 AM EST Appointment [facility] 800 [place] [address] 10/05/2025 9:00 AM EST Office Visit [place] [facility] [address], 1st [place] [address] Sanchez Zaldivar MD [address] [place] [address] 10/05/2025 11:00 AM EST Consult [place] [facility] [address], 1st [place] [address] Shy Marquez, RELATIONSHIP BANKER [address] [place] [address] documented as of this encounter [...] documented as of this encounter Care Teams Barback Relationship Specialty Start Date End Date System, Provider Not In, [address] [place] [address] PCP - General Family Medicine 03/23/25 Miguel Perez MD 800 [facility] [address] [place] [address] Consulting Physician Radiation Oncology 04/09/25 Sherin Romero, RN None None Registered Nurse Medical Oncology 07/20/25 documented as of this encounter
--- OUTSIDE RECORDS SUMMARY | 2025-08-22 05:14 | XMS_ITS | Encounter Summary ---
Author Organization Healthcare Address [address] [place] [address] Care Team Providers Care Cook Ice Cream Name Role Phone System, Provider Not In MD Primary Care Provider Unavailable Miguel Perez MD Unavailable [phone] Encounter Details Date Type Department Care Team (Latest Contact Info) Description 07/15/2025 Travel Social History Tobacco Use Types Packs/Day [...] any time in the past 12 m [facility], were you homeless or living in [...] drink first t carroll in the morning (EYE-FISHING LINE WINDING MACHINE OPERATOR) to steady your nerves or [...] CC Head, Neck & Respiratory [address] [phone] 08/31/2025 8:30 AM EST Office Visit [facility] [address] [phone] Gabe Cifuentes, CALENDER OPERATOR 800 [facility] Liyah Conde [facility] 134 [place] [address] 08/31/2025 10:00 AM EST Appointment [facility] [address] [place] [phone] 09/21/2025 9:15 AM EST Clinical Support [facility] [address] [phone] 09/21/2025 9:30 AM EST Office Visit [facility] [address] [phone] Gabe Cifuentes, CALENDER OPERATOR 800 [facility] Amaya [facility] 134 [place] [address] 09/21/2025 11:00 AM EST Appointment [facility] 800 [place] [address] 10/05/2025 9:00 AM EST Office Visit [facility] [address], 1st [place] [address] Sanchez Zaldivar MD [address] [place] [address] 10/05/2025 11:00 AM EST Consult [facility] [address], 1st [place] [address] Shy Marquez, CALENDER OPERATOR [address] [place] [address] documented as of this encounter [...] documented as of this encounter Care Teams Cook Ice Cream Relationship Specialty Start Date End Date System, Provider [place] In, [place] [address] PCP - General Family Medicine 03/23/25 Miguel Perez MD [address] [place] [address] [address] [place] [address] Consulting Physician Radiation Oncology 04/09/25 documented as of this encounter
--- OUTSIDE RECORDS SUMMARY | 2025-08-22 05:15 | XMS_ITS | Encounter Summary ---
Author Organization Healthcare Address [address] [place] [address] Care Team Providers Care Dental Assistant Teacher Name Role Phone System, Provider Not In MD Primary Care Provider Unavailable Miguel Perez MD Unavailable [phone] Sherin Romero RN Unavailable Unavailable Encounter Details Date Type Department Care Team (Latest Contact Info) Description 08/10/2025 Travel Social History Tobacco Use Types Packs/Day [...] any time in the past 12 m [facility], were you homeless or living in [...] drink first t carroll in the morning (EYE-FIRE SPRINKLER APPARATUS INSPECTOR) to steady your nerves or to get [...] CC Head, Neck & Respiratory 800 [facility] 2nd [place] [phone] 08/31/2025 8:30 AM EST Office Visit [facility] [address] [phone] Gabe Cifuentes, SALES FACILITATOR 800 [facility] Liyah Conde [facility] [address] [place] [address] 08/31/2025 10:00 AM EST Appointment [facility] 800 [place] [phone] 09/21/2025 9:15 AM EST Clinical Support [facility] [address] [phone] 09/21/2025 9:30 AM EST Office Visit [facility] [address] [phone] Gabe Cifuentes, SALES FACILITATOR 800 [facility] iLyah Conde [address] [place] [address] 09/21/2025 11:00 AM EST Appointment [facility] 800 [place] [phone] 10/05/2025 9:00 AM EST Office Visit [facility] [address], 1st [place] [address] Sanchez Zaldivar MD [address] [place] [address] 10/05/2025 11:00 AM EST Consult [facility] [address], 1[address] [place] [phone] Shy Marquez, JEFFREY [address] [place] [address] documented as of this encounter Visit Diagnoses [...] documented as of this encounter Care Teams Dental Assistant Teacher Relationship Specialty Start Date End Date System, Provider Not In, [address] [place] [address] PCP - General Family Medicine 03/23/25 Miguel Perez MD [address] [place] [address] [address] [place] [address] Consulting Physician Radiation Oncology 04/09/25 Sherin Romero RN None None Registered Nurse Medical Oncology 07/20/25 documented as of this encounter
--- OUTSIDE RECORDS SUMMARY | 2025-08-22 05:15 | XMS_ITS | Encounter Summary ---
Author Organization Healthcare Address [address] [place] [address] Care Team Providers Care Used Equipment Sales Representative Name Role Phone System, Provider Not In MD Primary Care Provider Unavailable Miguel Perez MD Unavailable [phone] Sherin Romero RN Unavailable Unavailable Encounter Details Date Type Department Care Team (Late st Contact Info) Description 08/13/2025 Orders Only [facility] 800 [facility], 2nd [place] [address] Chente Sebastian MD 800 [facility] [address] [place] [address] Social History Tobacco Use Types Packs/Day Years [...] 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 0 03/20/2025 CAGE Questionnaire Score 0 025 Utilities Answer Date Recorded In the past 12 months has th e [employer], [employer], oil, or water [employer] threatened to shut off services in your [...] [facility] [address] [address] 08/31/2025 8:30 AM EST Office Visit [facility] [address] [address] Gabe Cifuentes, SILO MAN [address] [address] 08/31/2025 10:00 AM EST Appointment [facility] 800 [place] [address] 09/21/2025 9:15 AM EST Clinical Support [facility] [address] [address] 09/21/2025 9:30 AM EST Office Visit [facility] [address] [address] Gabe Cifuentes, SILO MAN [address] [address] 09/21/2025 11:00 AM EST Appointment [facility] 800 [place] [address] 10/05/2025 9:00 AM EST Office Visit [place] [facility] [address], 1st [place] [address] Sanchez Zaldivar MD [address] [place] [address] 10/05/2025 11:00 AM EST Consult [place] [facility] [address], [address] [place] [address] Shy Marquez, SILO MAN [address] [place] [address] documented as of this encounter [...] documented as of this encounter Care Teams Used Equipment Sales Representative Relationship Specialty Start Date End Date System, Provider Not In, [address] [place] [address] PCP - General Family Medicine 03/23/25 Miguel Perez MD [address] [place] [address] [address] [place] [address] Consulting Physician Radiation Oncology 04/09/25 Sherin Romero, RN None None Registered Nurse Medical Oncology 07/20/25 documented as of this encounter
--- OUTSIDE RECORDS SUMMARY | 2025-08-22 05:15 | XMS_ITS ---
Author Organization Healthcare Address [address] 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 03/20/2025 Glioblastoma multiforme 03/09/2025 Cancer Staging:Clinical stage from 04/02/2025: Histology: Glioblastoma multiforme, Location: Temporal lobe - Signed by Miguel Perez MD on 04/02/2025 Facial droop 02/26/2025 Assessment & Plan (02/26/2025 [...] Normotensive - Sodium Goals: Normonatremia - recommend PT/OT/GAS CONTROLLER evaluation - No indication to obtain echo with most recently obtained on 09/2024 - follow-up [facility] in 8-12 weeks following discharge [...] Normotensive - Sodium Goals: Normonatremia - recommend PT/OT/GAS CONTROLLER evaluation - No indication to obtain echo with most recently obtained on 09[facility]2024 [facility] [...] Normotensive - Sodium Goals: Normonatremia - recommend PT/OT/GAS CONTROLLER evaluation - No indication to obtain echo [...] would like to follow here at the [facility]. - final treatment planning pending [...] Medicine consulted, recommendations from 02/25 - Since midSeptember 2024 sodium has ranged [...] would like to follow here at the [facility]. - final treatment planning pending [...] - plan for operative intervention Sunday, 02/23 Brain mass 02/16/2025 Assessment & Plan [...] would like to follow here at the [facility]. - final treatment planning pending [...] would like to follow here at the [facility]. - final treatment planning pending [...] to monitor Current Treatment and Therapy Plans [id number]: Pembrolizumab or Placebo + Optune Every 21 Days / Temozolomide Every 28 Days* Plan Start Date:05/28/2025 Plan Provider:Chente Sebastian MD Linked Problems Glioblastoma multiforme (CMS /HCC) Treatment Medications Current Day (Day 1 , Cycle 5 - Planned for 08/31/2025) Next Day (Day 1, Cycle 6 - Planned for 09/21/2025) RES - pembrolizumab or place sharla IVPBtemozolomide (Temodar) RES - pembrolizumab or placebo (Keytruda) 200 mg in sodium chloride 0.9 % 100 mL IVPB RES - pembrolizumab or placebo (Keytruda) 200 mg in sodium chloride 0.9 % 100 mL IVPB Past Treatment and Therapy Plans Oncology Treatment Plan Name Start Date Discontinue Date Treatment Medications Discontinue Reason Plan Provider Cycles Temozolomide with XRT 5 05/27/2025 temozolomide (Temodar) Therapy Complete Chente Sebastian MD 1 of 1 cycle started Current Radiation Episodes * Radiation Therapy: Left BrainOverview* First Treatment Date:2025 Latest Treatment Date:05/08/2025 Intent:Control Episode Provider: Intended Treatment Radiotherapy to Left Brain * Linked Problems Glioblastoma multiforme Treatment Courses* Course C1 2025 - 05/08/2025 Treatment Period Fraction Dose Fractions Total Dose Plans Planned Left Oligodendroglioma Boost [LeftOligo Bst] 04/30/2025 - 05/08/2025 200 cGy 1,400 cGy Left Oligodendroglioma 2025 - 04/29/2025 200 cGy 4,600 cGy Reference Points Delivered Left Oligo Boost 04/30/2025 - 05/08/2025 1,400 cGy Left Oligo 2025 - 04/29/2025 4,600 cGy Lifetime Dose Tracking * Chemical Lifetime Dose Automatic Entry Manual Entr y Fluoro Time 1.1 minutes 1.1 minutes 0 minutes Air Kerma 98 mGy 98 mGy 0 mGy Air Kerma Area Product 545.22 Gym 545.22 Gym 0 Gym
--- OUTSIDE RECORDS SUMMARY | 2025-08-22 05:15 | XMS_ITS | Encounter Summary ---
Author Organization Healthcare Address [address] [place] [address] Care Team Providers Care Certified Hyperbaric Technologist Name Role Phone System, Provider Not In MD Primary Care Provider Unavailable Miguel Preez MD Unavailable [phone] Encounter Details Date Type Department Care Team (Latest Contact Info) Description 06/30/2025 Travel Social History Tobacco Use Types Packs/Day [...] in a nursing home (including now)? 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-MANAGER OF [employer]ATIONS) to steady your nerves or to get [...] [facility] [address] [phone] 08/31/2025 8:30 AM EST Office Visit [facility] [address] [phone] Gabe Cifuentes, DIRECTOR OF WEB MARKETING 800 [facility] Liyah Conde [facility] [address] [place] [phone] 08/31/2025 10:00 AM EST Appointment [facility] [address] [place] [phone] 09/21/2025 9:15 AM EST Clinical Support [facility] [address] [phone] 09/21/2025 9:30 AM EST Office Visit [facility] [address] [phone] Gabe Cifuentes, DIRECTOR OF WEB MARKETING 800 [facility] Amaya [facility] [address] [place] [phone] 09/21/2025 11:00 AM EST Appointment [facility] [address] [place] [phone] 10/05/2025 9:00 AM EST Office Visit [facility] [address] [place] [address] Sanchez Zaldivar MD [address] [place] [address] 10/05/2025 11:00 AM EST Consult [facility] [address], [address] [place] [address] Shy Marquez, DIRECTOR OF WEB MARKETING [address] [place] [address] documented as of this encounter [...] as of this encounter Care Teams Certified Hyperbaric Technologist Relationship Specialty Start Date End Date System, Provider Not In, [place] [address] PCP - General Family Medicine 03/23/25 Miguel Perez MD [address] [place] [address] [id number] [place] [phone] Consulting Physician Radiation Oncology 04/09/25 documented as of this encounter
--- OUTSIDE RECORDS SUMMARY | 2025-08-22 05:15 | XMS_ITS | Clinical Summary ---
Author Organization [facility] Address [address] [place] [address] Care Team Providers Care Motor Power Connector Name Role Phone System, Provider Not In MD Primary Care Provider Unavailable Miguel Perez MD Unavailable [phone] Sherin Romero RN Unavailable Unavailable Allergies Active Allergy Reactions Criticality Noted Date Comments Codeine Nausea 09/23/2024 Medications omeprazole (PriLOSEC) [address] capsule Take 1 capsule by mouth every morning. Do not crush or chew. Active sertraline (Zoloft) 50 MG tablet Take 1 tablet by mouth daily. Total dose of 75 mg daily (50 mg tablet + 25 mg tablet) Active levETIRAcetam (Keppra) 500 MG tablet Take 3 tablets by mouth 2 times a day. 180 tablet 02/27/2025 02/28/20 26 Active prochlorperazin e (Compazine) 10 MG tabletIndicatio ns:Glioblastoma multiforme (CMS/HCC) Take 1 tablet by mouth every 6 hours as needed for nausea or vomiting. 30 tablet 5 03/20/2025 Active senna (Senokot) 8.6 MG tablet Take 2 tablets by mouth nightly. 30 tablet 5 03/21/2025 Active Eliquis 5 MG tablet Take 1 tablet by mouth 2 times a day. 04/16/2025 Active polyethylene glycol (Miralax) 17 g packet Take 17 g by mouth daily. 30 packet 5 04/27/2025 Active sertraline (Zoloft) 25 MG tablet Take 1 tablet by mouth daily. Total dose of 75 mg daily (50 mg tablet + 25 mg tablet) 04/03/2025 Active ondansetron (Zofran) 8 MG tabletIndicatio ns:Glioblastoma multiforme (CMS/HCC) Take 1 tab (8mg) by mouth daily 30 minutes prior to temozolomide, then up to every 8 hours (max: 3/day) as needed for nausea/vomiti ng 90 tablet 1 05/29/2025 Active ascorbic acid (Vitamin C) 500 MG tablet Take 1 tablet by mouth daily. 06/01/2025 Active cholecalciferol (Vitamin D-3) 25 MCG (1000 UT) tablet Take 1 tablet by mouth daily. 06/01/2025 Active Acetaminophen Extra Strength 500 MG tablet TAKE TWO TABLETS BY MOUTH EVERY 6 HOURS NEEDED FOR PAIN 100 tablet 1 06/15/2025 Active Ascorbic Acid 62980 MG/30ML solution Infuse 87.5 g into a venous catheter 2 times a week. 175 mL 10 07/02/2025 Active temozolomide (Temodar) 140 MG chemo capsuleIndicati ons:Glioblastom a multiforme (CMS/HCC) Take 3 capsules (420 mg total) by mouth nightly. Take on Days 1-5 every 28 days 15 capsule 10 07/01/2025 Active lisinopril (Prinivil) 20 MG tablet Take 1 tablet by mouth daily. 30 tablet 3 07/02/2025 Active methylphenidate (Ritalin) 20 MG tablet Take 1 tablet by mouth 2 times a day. 60 tablet 08/13/2025 09/12/19 26 Active methylphenidate (Ritalin) 20 MG tablet Take 1 tablet by mouth 2 times a day. 60 tablet 08/14/2025 09/13/19 26 Active Active Problems Problem Noted Date Diagnosed Date [...] Normotensive - Sodium Goals: Normonatremia - recommend PT/OT/WEB WORKER evaluation - No indication to obtain echo with most recently obtained on 09/2024 - follow-up w/[facility] Neurology Clinic in 8-12 weeks following [...] Normotensive - Sodium Goals: Normonatremia - recommend PT/OT/WEB WORKER evaluation - No indication to obtain echo with most recently obtained on 09/2024 - follow-up w/[facility] Neurology Clinic in 8-12 weeks following [...] Normotensive - Sodium Goals: Normonatremia - recommend PT/OT/WEB WORKER evaluation - No indication to obtain echo [...] would like to follow here at the [facility]. - final treatment planning pending final pathology [...] would like to follow here at the [facility]. - final treatment planning pending final pathology [...] would like to follow here at the [facility]. - final treatment planning pending final pathology [...] would like to follow here at the [facility]. - final treatment planning pending final pathology [...] Encounters Date Type Department Care Team Description 08/13/2025 Orders Only [facility] [address] [phone] Chente Sebastian MD 08/13/2025 Telephone [facility] [address] [phone] Chente Sebastian MD 08/12/2025 Telephone [facility] 800 [facility]. [id number] [place] [address] Miguel Perez MD 08/11/2025 Orders Only [facility] [address] [phone] Chente Sebastian MD Glioblastoma multiforme (CMS/HCC) (Primary Dx); Exam for clinical research 08/10/2025 3:00 PM EST - 08/10/2025 11:59 PM EST Hospital Encounter [facility] [address] [place] [address] Glioblastoma multiforme (CMS/HCC) (Primary Dx) Discharge Disposition: Home or Self Care 08/10/2025 2:20 PM EST Office Visit [facility] [address] [phone] Chente Sebastian MD Glioblastoma multiforme (CMS/HCC) (Primary Dx); Research study patient 08/10/2025 1:45 PM EST Clinical Support [facility] [address] [address] Glioblastoma multiforme (CMS/HCC); Exam for clinical research 08/10/2025 7:56 AM EST - 08/10/2025 2:59 PM EST Hospital Encounter [facility] [address] [place] [address] Brain mass; Glioblastoma multiforme (CMS/HCC) Discharge Disposition: Home or Self Care 08/10/2025 - 08/10/2025 7:55 AM EST Hospital Encounter [facility] [address] [place] [address] Glioblastoma multiforme (CMS/HCC); Exam for clinical research Discharge Disposition: Home or Self Care 08/10/2025 Travel 08/09/2025 Travel 08/05/2025 Orders Only [facility] 800 [facility], 2nd [place] [phone] Chente Sebastian MD Glioblastoma multiforme (CMS/HCC) (Primary Dx); Exam for clinical research 07/22/2025 2:10 PM EST - 07/22/2025 11:59 PM EST Hospital Encounter [facility] [address] [place] [address] Glioblastoma multiforme (CMS/HCC) (Primary Dx) Discharge Disposition: Home or Self Care 07/22/2025 1:30 PM EST Office Visit [facility] [address] [place] [phone] Gabe Cifuentes APRN Glioblastoma multiforme (CMS/HCC) (Primary Dx); 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) 07/22/2025 1:15 PM EST Clinical Support [facility] [address] [place] [address] Glioblastoma multiforme (CMS/HCC); Exam for clinical research 07/22/2025 Travel 07/22/2025 Telephone [facility] [address], [address] [place] [address] System, Provider Not In, 07/21/2025 Telephone [facility] [address], [address]st [place] [address] System, Provider Not In, 07/21/2025 Orders Only [facility] [address] , [address] [place] [address] Chente Sebastian MD Glioblastoma multiforme (CMS/HCC) (Primary Dx); Exam for clinical research 07/17/2025 Orders Only [facility] [address] [place] [phone] Chente Sebastian MD 07/15/2025 Travel 07/15/2025 Orders Only [facility] 800 [facility], 2nd [place] [phone] Rickie Wagner, PharmD 07/14/2025 Telephone [facility] 800 [facility], [address] [place] [address] Gabe Cifuentes, LEASE EXAMINER 07/06/2025 9:30 AM EDT Office Visit [facility] [address], [address] [place] [address] Sanchez Zaldivar MD Glioblastoma multiforme (CMS/HCC) (Primary Dx); Expressive aphasia; Brain mass 07/06/2025 Travel 07/02/2025 Orders Only [facility] [address] [place] [address] Chente Sebastian MD 07/01/2025 11:00 AM EDT - 07/01/2025 11:59 PM EDT Hospital Encounter [facility] [address] [place] [address] Glioblastoma multiforme (CMS/HCC) (Primary Dx) Discharge Disposition: Home or Self Care 07/01/2025 10:21 AM EDT - 07/01/2025 10:59 AM EDT Hospital Encounter [facility] [address] 5th Floor [address], [address] [place] [address] Pain and swelling of lower extremity, unspecified laterality Discharge Disposition: Home or Self Care 07/01/2025 9:40 AM EDT Office Visit [facility] 800 [facility], [address] [place] [address] Chente Sebastian MD Glioblastoma multiforme ([facility]) (Primary Dx) 07/01/2025 9:15 AM EDT Clinical Support [facility] 800 [facility] [address] [place] [address] Glioblastoma multiforme ([facility]) 07/01/2025 Social Work Psych Oncology [address] [place] [address] Luisa Villafana 07/01/2025 Orders Only [facility] [address] [phone] Sherin Romero, SKY Glioblastoma multiforme ([facility]) (Primary Dx) 07/01/2025 Orders Only [facility] [address] [phone] Sherin Romero, SKY Pain and swelling of lower extremity, unspecified laterality (Primary Dx) 07/01/2025 Travel 06/30/2025 Travel 06/30/2025 Orders Only [facility] [address] [phone] Ashlyn Irvin, RN 06/29/2025 Telephone [facility] [address] [place] [phone] Pedro Jefferson, PharmD 06/17/2025 Refill [facility] 800 [facility], [address] [place] [address] Chente Sebastian MD Glioblastoma multiforme ([facility]) 06/14/2025 Refill [facility] 800 [facility], [address] [place] [address] Chente Sebastian MD 06/12/2025 Telephone [facility] 800 [facility], [address] [place] [phone] Chente Sebastian MD 06/11/2025 4:20 PM EDT Ancillary Procedure [facility] [address] [place] [address] 06/11/2025 4:15 PM EDT Ancillary Procedure [facility] [address] [place] [address] 06/11/2025 4:15 PM EDT Ancillary Procedure [facility] [address] [place] [address] 06/11/2025 3:45 PM EDT Office Visit [facility] [address] [place] [address] Qamar Waller, OD Glioblastoma multiforme (CMS/HCC) (Primary Dx); Blurred vision, left eye; Age-related nuclear cataract of right eye; Combined forms of 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; Hyperopia of right eye; Hyperopia of left eye with astigmatism; Presbyopia of both eyes 06/11/2025 Travel 06/10/2025 Telephone [facility] [address] [place] [address] System, Provider Not In, MD ALEMAN Same Day Appt/Overbook Request 06/10/2025 Social Work Psych Oncology [address] [place] [address] Luisa Villafana 06/08/2025 10:23 AM EDT - 06/08/2025 11:59 PM EDT Hospital Encounter [facility] [address] [place] [address] Glioblastoma multiforme (CMS/HCC) (Primary Dx) Discharge Disposition: Home or Self Care 06/08/2025 Travel 06/06/2025 Travel 06/05/2025 9:05 AM EDT - 06/05/2025 11:59 PM EDT Hospital Encounter [facility] Rad[facility] 800 [facility] [id number] [place] [phone] Olivia Etienne, LEASE EXAMINER, DNP Brain mass (Primary Dx); Glioblastoma multiforme (CMS/HCC) Discharge Disposition: Still a Patient 06/05/2025 Clinical Support [facility] [address], [address]nd [place] [address] Rickie Wagner PharmD Glioblastoma multiforme ([facility]/HCC) (Primary Dx) 06/05/2025 Travel 06/01/2025 9:20 AM EDT Office Visit [facility] [address], [address]nd [place] [address] Chente Sebastian MD Glioblastoma multiforme ([facility]/HCC) 06/01/2025 9:00 AM EDT Clinical Support [facility] [address], [address]nd [place] [address] 06/01/2025 Travel 05/29/2025 Refill [facility] [address], [address]nd [place] [phone] Chente Sebastian MD Glioblastoma multiforme ([facility]) 05/29/2025 Orders Only [facility] [address], [address]nd [place] [address] Chente Sebastian MD Glioblastoma multiforme ([facility]) (Primary Dx); Research exam 05/29/2025 Travel 05/27/2025 Telephone [facility] [address], [address] [place] [address] Chente Sebastian MD 05/27/2025 Orders Only [facility] [address], [address]nd [place] [address] Rickie Wagner PharmD Glioblastoma multiforme ([facility]/HCC) (Primary Dx) 05/26/2025 Telephone [facility] [address], [address]nd [place] [address] Chente Sebastian MD 05/26/2025 Travel 05/26/2025 Orders Only [facility] [address], [address] [place] [address] Chente Sebastian MD Glioblastoma multiforme ([facility]) (Primary Dx); Research study patient from Last 3 Months Immunizations Immunization Administration Dates Next Due MMR 10/19/1995 Tdap 05/31/2019 Zoster, Recombinant 06/05/2018 Family History Medical History Relation Name Comments Stroke Father Relation Name Status Comments Father Social History Tobacco Use Types Packs/Day Years [...] time in the past 12 m [facility], were you homeless or living in [...] drink first t carroll in the morning (EYE-PRODUCT TRAINER) to steady your nerves or to get [...] Mass Index 34.98 08/10/2025 3:21 PM EST Plan of Treatment Upcoming Encounters Date Type Department Care Team ([facility] Contact Info) Description 08/31/2025 8:15 AM EST Clinical Support [facility] 800 [facility], 2nd [place] [address] 08/31/2025 8:30 AM EST Office Visit [facility] 800 [facility], [address] [place] [phone] Gabe Cifuentes, LEASE EXAMINER 800 [facility] Liyah Conde [facility] [address] [place] [address] 08/31/2025 10:00 AM EST Appointment [facility] [address] [place] [phone] 09/21/2025 9:15 AM EST Clinical Support [facility] [address] [facility] [address] [place] [phone] 09/21/2025 9:30 AM EST Office Visit [facility] [address] [phone] Gabe Cifuentes, LEASE EXAMINER 800 [facility] [address] [address] 09/21/2025 11:00 AM EST Appointment [facility] [address] [phone] 10/05/2025 9:00 AM EST Office Visit [facility] [address], 1st [place] [address] Sanchez Zaldivar MD [id number] [place] [address] 10/05/2025 11:00 AM EST Consult [facility] [address], [address] [place] [address] Shy Marquez APRN [address] [facility] [place] [phone] Health Maintenance Due Date Last Done Comments [facility]-Bone Density Scan 1958 [facility]-Infant/Child/Adol SDOH Screenings 1958 Diabetes: Dental Exam 1968 [facility]-Pneumococcal Vaccine: 50+ Years (1 of 2 - PCV) 1977 CT Colonography 2003 Colonoscopy 2003 FIT-DNA 2003 FIT 2003 FOBT 2003 Sigmoidoscopy 2003 [facility]-Colorectal Cancer Screening 2003 [facility]-Breast Cancer Screening 2008 [facility]-RSV Vaccine: 60+ Years or (1 - Risk 50-74 years 1-dose series) 2008 [facility]-Zoster Vaccines (2 of 2) 07/31/2018 06/05/2018 [id number] Vaccine ( - 2024- season) 2025 07/14/2021, 10/08/2020, 09/08/2020 [facility]-Influenza Vaccine (#1) 2025 [facility]-Diabetes: Hemoglobin A1C 08/19/2025 02/19/2025, 09/25/2024 [facility]- SDOH Screenings 09/20/2025 [facility]-Adult SDOH Screenings 09/20/2025 03/20/2025 [facility]-Depression Screening 10/08/2025 10/08/2024, 09/11 [facility]-DTaP,Tdap,and Td Vaccines (2 - Td or Tdap) 05/31/2029 05/31/2019 [facility]-Hepatitis C Screening Completed 09/22/2024 [facility]-Obesity Intervention Completed 025, 06/08/2025, 03/19/2025, Additional history exists HPV Vaccines (No Doses Required) Completed [facility]-HIB Vaccines Aged Out No longer e [...] this topic Medical Devices Implanted Type Area Breeder Service Technician Device Identifier Shelf Expiration Date Model / Serial / Lot Graft Dura Repair 2x2 Synthecel - [id number] Implanted:Qty: 1 on 02/24/2025 by Sanchez Zaldivar MD at [id number] 09/09/2026 [id number] / / [id number] Cover, Neuro Maryann Lp 17mm - [id number] Implanted:Qty: 3 on 02/24/2025 by Sanchez Zaldivar MD at [id number] / / Plate, 2 Hole Low Profile - [id number] Implanted:Qty: 1 on 02/24/2025 by Sanchez Zaldivar MD at [id number] / / Screw Ti Matrixneuro Selfdrill 4mm - [id number] Implanted:Qty: 15 on 02/24/2025 by Sanchez Zaldivar MD at [place] [id number] / / Procedures Procedure Name Priority Date/Time Associated Diagnosis Comments PROTHROMBIN TIME(PT) / INR Routine 08/10/2025 2:20 PM EST Glioblastoma multiforme (CMS/HCC) Exam for clinical research APTT Routine 08/10/2025 2:20 PM EST Glioblastoma multiforme (CMS/HCC) Exam for clinical research CBC WITH AUTO DIFFERENTIAL Routine 08/10/2025 2:20 PM EST Glioblastoma multiforme (CMS/HCC) COMPREHENSIVE METABOLIC PANEL, PLASMA Routine 08/10/2025 2:20 PM EST Glioblastoma multiforme (CMS/HCC) TSH Routine 08/10/2025 2:20 PM EST Glioblastoma multiforme (CMS/HCC) T3 Routine 08/10/2025 2:20 PM EST Glioblastoma multiforme (CMS/HCC) FREE T4, PLASMA Routine 08/10/2025 2:20 PM EST Glioblastoma multiforme (CMS/HCC) MR HEAD W AND WO IV CONTRAST Routine 08/10/2025 8:39 AM EST Brain mass Glioblastoma multiforme (CMS/HCC) RADIOLOGY RESEARCH REPORT REQUEST Routine 08/10/2025 12:00 AM EST Glioblastoma multiforme (CMS/HCC) Exam for clinical research APTT Routine 07/22/2025 1:31 PM EST Glioblastoma multiforme (CMS/HCC) Exam for clinical research PROTHROMBIN TIME(PT) / INR Routine 07/22/2025 1:31 PM EST Glioblastoma multiforme (CMS/HCC) Exam for clinical research COMPREHENSIVE METABOLIC PANEL, PLASMA Routine 07/22/2025 1:31 PM EST Glioblastoma multiforme (CMS/HCC) CBC WITH AUTO DIFFERENTIAL Routine 07/22/2025 1:31 PM EST Glioblastoma multiforme (CMS/HCC) VAS US VENOUS DUPLEX LOWER EXTREMITY BILATERAL STAT 07/01/2025 12:07 PM EDT Pain and swelling of lower extremity, unspecified laterality CBC WITH AUTO DIFFERENTIAL Routine 07/01/2025 9:34 AM EDT Glioblastoma multiforme (CMS/HCC) COMPREHENSIVE METABOLIC PANEL, PLASMA Routine 07/01/2025 9:34 AM EDT Glioblastoma multiforme (CMS/HCC) TSH Routine 07/01/2025 9:34 AM EDT Glioblastoma multiforme (CMS/HCC) T3 Routine 07/01/2025 9:34 AM EDT Glioblastoma multiforme (CMS/HCC) FREE T4, PLASMA Routine 07/01/2025 9:34 AM EDT Glioblastoma multiforme (CMS/HCC) RADFORD VISUAL FIELD - OU - BOTH EYES Routine 06/11/2025 4:11 PM EDT Blurred vision, left eye OCT, RETINA - OU - BOTH EYES Routine 06/11/2025 4:11 PM EDT Blurred vision, left eye OCT, OPTIC NERVE - OU - BOTH EYES Routine 06/11/2025 4:11 PM EDT Blurred vision, left eye CBC W/DIFF Routine 06/01/2025 9:54 AM EDT COMPLETE METABOLIC PROFILE (CMP) Routine 06/01/2025 9:54 AM EDT CBC WITH AUTO DIFFERENTIAL Routine 06/01/2025 9:29 AM EDT Glioblastoma multiforme (CMS/HCC) COMPREHENSIVE METABOLIC PANEL, PLASMA Routine 06/01/2025 9:29 AM EDT Glioblastoma multiforme (CMS/HCC) PROTHROMBIN TIME(PT) / INR Routine 06/01/2025 9:29 AM EDT Glioblastoma multiforme (CMS/HCC) APTT Routine 06/01/2025 9:29 AM EDT Glioblastoma multiforme (CMS/HCC) TSH Routine 06/01/2025 9:29 AM EDT Glioblastoma multiforme (CMS/HCC) T3 Routine 06/01/2025 9:29 AM EDT Glioblastoma multiforme (CMS/HCC) FREE T4, PLASMA Routine 06/01/2025 9:29 AM EDT Glioblastoma multiforme (CMS/HCC) HEMOGLOBIN A1C Routine 02/19/2025 4:17 PM EDT HEPATITIS C ANTIBODY - ED W/REFLEX TO HCV QUANT PCR STAT 09/22/2024 10:51 AM EST from Last 3 Months or Most Recently Relevant to Health Maintenance Results * T3, Serum (08/10/2025 2:20 PM EST) Only the most recent of3 resultswithin the time period is included. T3, Serum 105 87 - 187 ng/dL 08/10/2025 3:12 PM EST [facility] Blood Venous blood specimen / Unknown Venipuncture / Unknown 08/10/2025 2:20 PM EST 08/10/2025 2:35 PM EST us Chente Sebastian MD LAB BLOOD ORDERABLES Final Res ult Performing Organization Address [facility] de Phone Number [facility] [address] [place] [address] * APTT (08/10/2025 2:20 PM EST) Only the most recent of3 resultswithin the time period is included. aPTT 27 25 - 35 sec LAB COAGULATION METHOD 08/10/2025 3:07 PM EST [facility] Blood Venous blood specimen / Unknown Venipuncture / Unknown 08/10/2025 2:20 PM EST 08/10/2025 2:35 PM EST Chente Sebastian MD LAB BLOOD ORDERABLES Final Res ult Performing Organization Address [facility] Phone Number [facility] [address] [place] [address] * (ABNORMAL) Prothrombin Time/INR (08/10/2025 2:20 PM EST) Only the most recent of3 resultswithin the time period is included. Prothrombin Time 15.6(H) 12.0 - 14.3 sec LAB COAGULATION METHOD 08/10/2025 3:07 PM EST [facility] INR 1.2(H) 0.9 - 1.1 LAB COAGULATION METHOD 08/10/2025 3:07 PM EST [facility] Blood Venous blood specimen / Unknown Venipuncture / Unknown 08/10/2025 2:20 PM EST 08/10/2025 2:35 PM EST Narrative [facility] - 08/10/2025 3:07 PM EST OPTIMAL INR RANGES FOR PATIENT ON ORAL ANTICOAGULANT THERAPY Prevention of venous thromboembolism INR 2.0 to 3.0 In patients with heart disease: Atrial fibrillation INR 2.0 to 3.0 Valvular heart disease INR 2.0 to 3.0 Tissue heart valves INR 2.0 to 3.0 Mechanical prosthetic valves INR 2.5 to 3.5 Prevention of recurrent AK INR 2.5 to 3.5 us Chente Sebastian MD LAB BLOOD ORDERABLES Final Res ult [facility] [address] [place] [address] * (ABNORMAL) CBC and differential (08/10/2025 2:20 PM EST) Only the most recent of4 resultswithin the time period is included. WBC Count 4.89 3.70 - 10.30 10*3/uL LAB HEMATOLOGY METHOD 08/10/2025 2:49 PM EST [facility] RBC Count 4.65 3.90 - 5.20 10*6/uL LAB HEMATOLOGY METHOD 08/10/2025 2:49 PM EST [facility] HGB 12.8 11.2 - 15.7 g/dL LAB HEMATOLOGY METHOD 08/10/2025 2:49 PM EST [facility] HCT 39.0 34.0 - 45.0 % LAB HEMATOLOGY METHOD 08/10/2025 2:49 PM EST [facility] Platelet Count 259 155 - 369 10*3/uL LAB HEMATOLOGY METHOD 08/10/2025 2:49 PM EST [facility] MCV 84 79 - 98 fL LAB HEMATOLOGY METHOD 08/10/2025 2:49 PM EST [facility] MCH 27.5 26.0 - 32.0 pg LAB HEMATOLOGY METHOD 08/10/2025 2:49 PM EST [facility] MCHC 32.8 30.7 - 35.5 g/dL LAB HEMATOLOGY METHOD 08/10/2025 2:49 PM EST [facility] RDW 14.2 11.5 - 14.5 % LAB HEMATOLOGY METHOD 08/10/2025 2:49 PM EST [facility] MPV 9.9 8.8 - 12.5 fL LAB HEMATOLOGY METHOD 08/10/2025 2:49 PM EST [facility] nRBC 0.0 <=0.0 per 100 WBCs LAB HEMATOLOGY METHOD 08/10/2025 2:49 PM EST [facility] Differential Type Automated LAB HEMATOLOGY METHOD 08/10/2025 2:49 PM EST [facility] Neutrophils % 75 % LAB HEMATOLOGY METHOD 08/10/2025 2:49 PM EST [facility] Lymphocytes % 14 % LAB HEMATOLOGY METHOD 08/10/2025 2:49 PM EST [facility] Monocytes % 9 % LAB HEMATOLOGY METHOD 08/10/2025 2:49 PM EST [facility] Eosinophils % 2 % LAB HEMATOLOGY METHOD 08/10/2025 2:49 PM EST [facility] Basophils % 0 % LAB HEMATOLOGY METHOD 08/10/2025 2:49 PM EST [facility] Immature Granulocytes % 0 % LAB HEMATOLOGY METHOD 08/10/2025 2:49 PM EST [facility] Neutrophils Absolute 3.59 1.60 - 6.10 10*3/uL LAB HEMATOLOGY METHOD 08/10/2025 2:49 PM EST [facility] Lymphocytes Absolute 0.69(L) 1.20 - 3.90 10*3/uL LAB HEMATOLOGY METHOD 08/10/2025 2:49 PM EST [facility] [facility] Monocytes Absolute 0.46 0.30 - 0.90 10*3/uL LAB HEMATOLOGY METHOD 08/10/2025 2:49 PM EST [facility] Eosinophils Absolute 0.11 0.00 - 0.50 10*3/uL LAB HEMATOLOGY METHOD 08/10/2025 2:49 PM EST [facility] Basophils Absolute 0.02 0.00 - 0.10 10*3/uL LAB HEMATOLOGY METHOD 08/10/2025 2:49 PM EST [facility] Immature Granulocytes Absolute 0.02 0.00 - 0.06 10*3/uL LAB HEMATOLOGY METHOD 08/10/2025 2:49 PM EST [facility] Blood Venous blood specimen / Unknown Venipuncture / Unknown 08/10/2025 2:20 PM EST 08/10/2025 2:39 PM EST Narrative [facility] - 08/10/2025 2:49 PM EST Therapeutic decision making should be based on absolute values, rather than percentages. us Chente Sebastian MD LAB BLOOD ORDERABLES Final Res ult [facility] [address] [place] [address] * TSH (08/10/2025 2:20 PM EST) Only the most recent of3 resultswithin the time period is included. Thyroid Stimulating Hormone, Plasma 2.20 0.40 - 4.20 uIU/mL 08/10/2025 3:12 PM EST [facility] Blood Venous blood specimen / Unknown Venipuncture / Unknown 08/10/2025 2:20 PM EST 08/10/2025 2:35 PM EST Chente Sebastian MD LAB BLOOD ORDERABLES Final Res ult Performing Organization Address [facility] Co de Phone Number [facility] [address] [place] [address] * T4, free (08/10/2025 2:20 PM EST) Only the most recent of3 resultswithin the time period is included. Free T4, Plasma 1.2 0.8 - 1.7 ng/dL 08/10/2025 3:12 PM EST [facility] Blood Venous blood specimen / Unknown Venipuncture / Unknown 08/10/2025 2:20 PM EST 08/10/2025 2:35 PM EST Chente Sebastian MD LAB BLOOD ORDERABLES Final Res ult Performing Organization Address [facility] Co de Phone Number [facility] [address] [place] [address] * (ABNORMAL) Comprehensive metabolic panel (08/10/2025 2:20 PM EST) Only the most recent of4 resultswithin the time period is included. Glucose, Plasma 128(H) 74 - 99 mg/dL 08/10/2025 3:12 PM EST [facility] BUN, Plasma 12 8 - 23 mg/dL 08/10/2025 3:12 PM EST [facility] Creatinine, Plasma 0.65 0.60 - 1.10 mg/dL 08/10/2025 3:12 PM EST [facility] BUN/Creatinine Ratio 18 08/10/2025 3:12 PM EST [facility] Sodium, Plasma 140 136 - 145 mmol/L 08/10/2025 3:12 PM EST [facility] Potassium, Plasma 3.5(L) 3.6 - 4.9 mmol/L 08/10/2025 3:12 PM EST [facility] Chloride, Plasma 103 97 - 107 mmol/L 08/10/2025 3:12 PM EST [facility] CO2, Plasma 27 22 - 29 mmol/L 08/10/2025 3:12 PM EST [facility] Anion Gap 10 6 - 16 mmol/L 08/10/2025 3:12 PM EST [facility] Total Calcium, Plasma 9.3 8.9 - 10.2 mg/dL 08/10/2025 3:12 PM EST [facility] Total Protein 6.8 6.3 - 7.9 g/dL 08/10/2025 3:12 PM EST [facility] Albumin, Plasma 4.0 3.5 - 5.2 g/dL 08/10/2025 3:12 PM EST [facility] AST, Plasma 14 10 - 35 U/L 08/10/2025 3:12 PM EST [facility] ALT, Plasma 15 10 - 35 U/L 08/10/2025 3:12 PM EST [facility] Alkaline Phosphatase, Plasma 68 46 - 142 U/L 08/10/2025 3:12 PM EST [facility] Total Bilirubin, Plasma 0.3 0.2 - 1.1 mg/dL 08/10/2025 3:12 PM EST [facility] eGFRcr 96.6 mL/min/1.7 3m*2 08/10/2025 3:12 PM EST [facility] Comment:Reported eGFRcr in m L/min/1.73m2 is based the CKD-EPI 2020 equation that does not use a race coefficient. Blood Venous blood specimen / Unknown Venipuncture / Unknown 08/10/2025 2:20 PM EST 08/10/2025 2:35 PM EST us Chente Sebastian MD LAB BLOOD ORDERABLES Final Res ult [facility] [address] [place] [address] * MR Head w and wo IV [...] error, please notify the sender immediately at [phone] and permanently delete the original report and destroy any copies or printouts. Narrative 08/11/2025 7:33 AM EST [facility] - Phone Outpatient NAME: Herminia Murrell DATE OF EXAM: 08/10/2025 Patient No: [id number] Physician: Lowell^Olivia^Bethanie Date of : 1960 Past Medical/Surgical History (entered by technologist): Symptoms/Reason For Exam (entered by technologist): Brain/CONDUCTOR SLEEPING CAR neoplasm, assess treatment response Tech Notes (entered [...] Murrell DATE OF EXAM: 08/10/2025 Patient No: [id number] Physician: Lowell^Olivia^Bethanie Date of : 1960 Past Medical/Surgical History (entered by technologist): Symptoms/Reason For Exam (entered by technologist): Brain/CONDUCTOR SLEEPING CAR neoplasm,assess treatment response Tech Notes (entered by [...] in error, pleasenotify the sender immediately at [phone] and permanently delete theoriginal report and destroy any copies or printouts. Olivia Etienne APRN, [facility] IM MRI PROCEDURES Final Result * Radiology Research Report Request Other; RANO 2.0 (08/10/2025 12:00 AM EST) Anatomical Region Laterality Modality Other Narrative 08/19/2025 9:17 AM EST Research read for Date: 08/10/2025 Study: MRI Head with/without contrast Original exam date: 08/10/2025 Type of specific read needed: Other Specific instructions: RANO 2.0 Is this a baseline or follow-up research? Follow-up Research Study Name: GBM-16 Name of the Capsule Machine Operator: Dr. Chente Sebastian Correspondence email: [email or web address] Was this trial started before Sep 10, 2022? After [facility]: Manual release only [2] Reason for preventing [...] Sebastian MD IMG RESEARCH ORDERABLES Final Result * VAS US Venous Duplex Lower Extremity [...] 07/01/2025 12:11 PM Final report signed by Adrinene Muñoz MD on 07/01/2025 3:48 PM Narrative [...] Adrienne Muñoz MD on 07/01/2025 3:48 PM us Chente Sebastian MD CV VASCULAR PROCEDURES Final R esult * OCT, Retina - OU - Both Eyes (06/11/2025 4:11 PM EDT) Anatomical Region Laterality Modality Head Optical Coherenc e Tomography Narrative 06/15/2025 1:06 PM EDT Right Eye Quality was good. Scan locations included subfoveal. Findings include normal observations, normal foveal contour. Left Eye Quality was good. Scan locations included subfoveal. Findings include normal observations, normal foveal contour. Qamar Waller OD OPHTH TOMOGRAPHY Final Resu lt * OCT, Optic Nerve - OU - Both Eyes (06/11/2025 4:11 PM EDT) Pathologist [facility] Average RNFL Today (OS) 98 um OPHTHALMOLOGY Average RNFL Today (OD) 99 um OPHTHALMOLOGY Average RNFL Baseline (OS) 98 um OPHTHALMOLOGY Average RNFL Baseline (OD) 99 um OPHTHALMOLOGY Anatomical Region Laterality Modality Head Optical Coherenc e Tomography Narrative 06/15/2025 1:07 PM EDT Right Eye Images reviewed. To assess optic nerve function and for use in future follow-up. Reliability: good and adequate. 99 um. 99 um. Left Eye Images reviewed. To assess optic nerve function and for use in future follow-up. Reliability: good and adequate. 98 um. 98 um. Notes Right eye: Robust RNFL; no edema/elevation Left eye: Borderline RNFL thinning; no edema/elevation Qamar Waller OD OPHTH TOMOGRAPHY Final Resu lt * Radford Visual Field - OU - Both Eyes (06/11/2025 4:11 PM EDT) Anatomical Region Laterality Modality Head Visual Field Narrative 06/15/2025 1:07 PM EDT Right Eye Reliability was poor. Progression has no prior data. Foveal threshold was normal. Findings include superior paracentral defect. Left Eye Reliability was poor. Progression has no prior data. Foveal threshold was reduced. Findings include superior arcuate defect, inferior arcuate defect. Qamar Waller OD OPHTH VISUAL FIELD Final Re sult * COMPLETE METABOLIC PROFILE (CMP) (06/01/2025 9:54 AM EDT) us Historical Provider LAB BLOOD ORDERABLES Final R esult * CBC W/DIFF (06/01/2025 9:54 AM EDT) us Historical Provider LAB BLOOD ORDERABLES Final R esult * (ABNORMAL) Hemoglobin A1c (02/19/2025 4:17 PM EDT) Hemoglobin A1c 5.7(H) <5.7 % 02/19/2025 5:20 PM EDT [facility] Blood Venous blood specimen / Unknown Venipuncture / Unknown 02/19/2025 4:17 PM EDT 02/19/2025 4:49 PM EDT Narrative [facility] - 02/19/2025 5:20 PM EDT HA1C Interpretive Data: Diagnosis of Diabetes: Diabetic > or = 6.5% Pre-diabetic 5.7 to 6.4% Non-diabetic < or = 5.6% Glycemic Targets for Type I and Type II Diabetics: Non- Adults <7.0% Adults <6.0% Children and Adolescents <7.5% Source: [place] [employer]. Standards of medical care in diabetes,2017. Diabetes Care.2017:40 (suppl 1):S1-S135. us Anaya Felton LEASE EXAMINER LAB BLOOD ORDERABLES Final R esult [facility] [address] [place] [address] * Hepatitis C Antibody - ED (09/22/2024 10:51 AM EST) Hepatitis C Antibody Negative Negative 09/22/2024 11:45 AM EST [facility] Blood Venous blood specimen / Unknown Venipuncture / Unknown 09/22/2024 10:51 AM EST 09/22/2024 11:04 AM EST us Kami Amin DO LAB BLOOD ORDERABLES Final Re sult [facility] [address] [place] [address] from Last 3 Months or Most Recently Relevant to Health Maintenance Insurance [facility] [place] [address] Advance Directives * Full Code (Latest Code Status on File) Date Activated Date Inactivated Comments 03/20/2025 12:05 AM 03/21/2025 6:46 PM Question Answer Comments I have reviewed the capacity from the link above and, if needed, have updated to appropriate status: Yes * Full Code Date Activated Date Inactivated Comments 02/25/2025 12:12 [...] Patient has decision-making capacity? Yes Care Teams Motor Power Connector Relationship Specialty Start Date End Date System, Provider Not In, [address] [place] [address] PCP - General Family Medicine 03/23/25 Miguel Perez MD [address] [place] [address] [address] [place] [address] Consulting Physician Radiation Oncology 04/09/25 Sherin Romero, RN None None Registered Nurse Medical Oncology 07/20/25
--- OUTSIDE RECORDS SUMMARY | 2025-08-22 05:15 | XMS_ITS | Encounter Summary ---
Author Organization Healthcare Address [address] [place] [address] Care Team Providers Care Hospital Pharmacist Name Role Phone System, Provider Not In MD Primary Care Provider Unavailable Miguel Perez MD Unavailable [phone] Sherin Romero RN Unavailable Unavailable Encounter Details Date Type Department Care Team (Late st Contact Info) Description 08/13/2025 Telephone Pav CC Head, Neck & Respiratory [address] [facility], 2nd [place] [address] Chente Sebastian MD [address] [facility] [address] [place] [address] Social History Tobacco Use Types Packs/Day Years [...] in the past 12 m [facility], were you homeless or living [...] drink first t carroll in the morning (EYE-AERODYNAMICIST) to steady your nerves or to get rid of a hangover? 0 03/20/2025 CAGE Questionnaire Score 0 025 Utilities Answer Date Recorded In the past 12 months has th e [employer], gas, oil, or water [employer] threatened to shut off services in your home? No 03/23/2025 Comments No Sex and Gender Information Value Date Recorded Sex Assigned at Female 09/22/2024 11:47 AM EST Legal Sex Female 8:04 PM EDT Gender Identity Not on file Sexual Orientation Not on file documented as of this encounter Miscellaneous Notes * Telephone Encounter - Sherin Romero RN - 08/14/2025 2:[address] Sebastian told RN he wrote the order and sent it to their local chosen pharmacy. * Telephone Encounter - Unique Ward - 08/13/2025 10:25 AM EST Per daughter Sarahi call to [facility], pt was seen on Friday 08/10 and per conversation wit provider was expecting a medication to be called in due to fatigue and to increase energy. Medication for fatigue: ritalin they think, unsure of dosage Preferred Pharmacy: [facility] [place] [address] [facility] [address] P: [phone] F: [phone] Sarahi documented in this encounter Plan of Treatment Upcoming Encounters Date Type Department Care Team (Late st Contact Info) Description 08/31/2025 8:15 AM EST Clinical Support Pav [facility] Head, Neck & Respiratory [address] [facility], [address]nd [place] [address] 08/31/2025 8:30 AM EST Office Visit Pav [facility] Head, Neck & Respiratory [address] [facility], [address]nd [place] [address] Gabe Cifuentes APRN [address] [facility] [address] [facility] [address] [place] [address] 08/31/2025 10:00 AM EST Appointment [facility] [address] [place] [address] 09/21/2025 9:15 AM EST Clinical Support Pav CC Head, Neck & Respiratory [address] [facility], [address]nd [place] [address] 09/21/2025 9:30 AM EST Office Visit Pav [facility] Head, Neck & Respiratory [address] [facility], [address]nd [place] [address] Gabe Cifuentes, FOIL STAMP OPERATOR [address] [facility] [address] [place] [address] 09/21/2025 11:00 AM EST Appointment [facility] [address] [place] [address] 10/05/2025 9:00 AM EST Office Visit [facility] [address], [address]st [place] [address] Sanchez Zaldivar MD [address] [facility] [address] [place] [address] 10/05/2025 11:00 AM EST Consult [facility] [address], [address] [place] [address] Shy Marquez, FOIL STAMP OPERATOR [address] [facility] [address] [place] [phone] documented as of this encounter Visit Diagnoses [...] documented as of this encounter Care Teams Hospital Pharmacist Relationship Specialty Start Date End Date System, Provider Not In, [address] [place] [address] PCP - General Family Medicine 03/23/25 Miguel Perez MD [address] [place] [address] [address] [place] [address] Consulting Physician Radiation Oncology 04/09/25 Sherin Romero RN None None Registered Nurse Medical Oncology 07/20/25 documented as of this encounter
--- OUTSIDE RECORDS SUMMARY | 2025-08-22 05:15 | XMS_ITS | Clinical Summary ---
[facility] Address [address] [place] [address] Care Team Providers Care Rubbing Bed Operator Name Role Phone Caroline Shultz CHARGE WEIGHER Primary Care Provider [phone] Social History Tobacco Use Types Packs/Day Years Used Date Smoking Tobacco: Never Assessed Abuse Screen Answer Date Recorded Unsafe at Home or Work/School Not on file Feels Threatened by Someone? Not on file 05/2023 Does Anyone Keep You from Co ntacting Others or Doint Things Outside the Home? Not on file 06/18/2023 Physical Sign of Abuse Present Not on file 1 Housing Stability Answer Date Recorded Current Living Arrangements Not on file 05/2023 Potentially Unsafe Housing Conditions Not on flavio e 06/18/2023 Family and Community Support Answer Trip e Recorded Help with Day-to-Day Activities Not on file 06/18/2023 Lonely or Isolated Not on file 06/18/2023 Employment Answer Date Recorded Do you want help finding or keeping work or a thania b? Not on file 06/18/2023 Disabilities Answer Date Recorded Concentrating, Remembering, or Making Decisions Difficulty Not on file 06/18/2023 Doing Errands Independently Difficulty Not on fi le 06/18/2023 Education Answer Date Recorded Help with school or training? Not on file Preferred Language Not on file 06/18/2023 Comments Unknown Sex and Gender Information Value Date Recorded Sex Assigned at Not on file Legal Sex Female 12:32 PM EDT Gender Identity Not on file Sexual Orientation Not on file Plan of Treatment Health Maintenance Due Date Last Done Comments ANNUAL PHYSICAL 1960 DXA SCAN 1960 TDAP/TD VACCINES (1 - Tdap) 1977 MAMMOGRAM 1998 COLOGUARD 2003 COLON CANCER SCREENING 5 YEAR SIGMOIDOSCOPY 2003 COLONOSCOPY 2003 [address] CANCER SCREENING 2003 CT COLONOGRAPHY 2003 FECAL OCCULT BLOOD TEST 2003 FIT Testing (1 year) 2003 Pneumococcal Vaccine 50+ (1 of 1 - PCV) 2008 ZOSTER VACCINE (1 of 2) 2008 INFLUENZA VACCINE 04/10/2025 COVID-19 Vaccine (1 - season) 2025 HEPATITIS C SCREENING Completed 09/22/2024 [place] [address] Care Teams Rubbing Bed Operator Relationship Specialty Start Date End Date Caroline Shultz APRN [address] [facility] [address] [place] [address] PCP - General Internal Medicine 09/15/24
--- OUTSIDE RECORDS SUMMARY | 2025-08-22 05:15 | XMS_ITS | Encounter Summary ---
Author Organization Healthcare Address [address] [place] [address] Care Team Providers Care Pe Electrical Engineer Name Role Phone System, Provider Not In MD Primary Care Provider Unavailable Miguel Perez MD Unavailable [phone] Sherin Romero RN Unavailable Unavailable Encounter Details Date Type Department Care Team (Late st Contact Info) Description 08/11/2025 Orders Only Pav CC Head, Neck & Respiratory 800 [facility], [address]nd [place] [phone] Chente Sebastian MD 800 [facility] [address] [place] [address] Glioblastoma multiforme (CMS/HCC) (Primary Dx); Exam for [...] drink first t carroll in the morning (EYE-CEMENTING MACHINE OPERATOR) to steady your nerves or [...] Head, Neck & Respiratory 800 [facility] [address] [place] [address] 08/31/2025 8:30 AM EST Office Visit Pav [facility] Head, Neck & Respiratory [address] [address] Gabe Cifuentes, SPOOL CLEANER [address] [address] 08/31/2025 10:00 AM EST Appointment [facility] [address] [place] [address] 09/21/2025 9:15 AM EST Clinical Support Pav [facility] Head, Neck & Respiratory [address] [address] 09/21/2025 9:30 AM EST Office Visit [facility] Head[facility] Neck & Respiratory [address] [address] Gabe Cifuentes, SPOOL CLEANER [address] [address] 09/21/2025 11:00 AM EST Appointment [facility] [address] [place] [address] 10/05/2025 9:00 AM EST Office Visit [place] [facility] [address], [address] [place] [address] Sanchez Zaldivar MD [address] [place] [address] 10/05/2025 11:00 AM EST Consult [place] [facility] [address], [address] [place] [address] Shy Marquez, SPOOL CLEANER [address] [place] [address] documented as of this encounter Results * Radiology Research Report [...] Research Study Name: GBM-16 Name of the Aix Administrator: Dr. Chente Sebastian Correspondence email: [email or web address] Was this trial started before Sep 10, 2022? [facility] Manual release only [2] Reason for preventing [...] brain, unspecified site Exam for clinical research Glioblastoma multiforme (CMS/HCC)- Primary Malignant neoplasm of [...] documented as of this encounter Care Teams Pe Electrical Engineer Relationship Specialty Start Date End Date System, Provider Not In, [address] [place] [address] PCP - General Family Medicine 03/23/25 Miguel Perez MD [address] [place] [address] [address] [place] [address] Consulting Physician Radiation Oncology 04/09/25 Sherin Romero, RN None None Registered Nurse Medical Oncology 07/20/25 documented as of this encounter
--- OUTSIDE RECORDS SUMMARY | 2025-08-22 05:15 | XMS_ITS | Encounter Summary ---
Author Organization Healthcare Address [address] [place] [address] Care Team Providers Care Fabric Worker Name Role Phone System, Provider Not In MD Primary Care Provider Unavailable Miguel Perez MD Unavailable [phone] Encounter Details Date Type Department Care Team (Late st Contact Info) Description 06/12/2025 Telephone Pav CC Head, Neck & Respiratory 800 [facility], [address]nd [place] [address] Chente Sebastian MD 800 [facility] [address] [place] [address] Social History Tobacco Use Types [...] any time in the past 12 m [facility], were you homeless or living in [...] drink first t carroll in the morning (EYE-SYSTEM SAFETY MANAGER) to steady your nerves or to get rid of a hangover? 0 03/20/2025 CAGE Questionnaire Score 0 025 Utilities Answer Date Recorded In the past 12 months has th e [employer], gas, oil, or water company threatened to shut off services in your home? No 03/23/2025 Comments No Sex and Gender Information Value Date Recorded Sex Assigned at Female 09/22/2024 11:47 AM EST Legal Sex Female 8:04 PM EDT Gender Identity Not on file Sexual Orientation Not on file documented as of this encounter Miscellaneous Notes * Telephone Encounter - July Trujillo - 06/12/2025 2:48 PM EDT Patient Phone Message Reason for Call:Patient daughter is calling to get a letter for disability. It nee treatment plan, and how long she need to be off work. She also need a letter for supplements. She has sent some emails and noone has respond. Please give the daughter a call. Best contact number and optimal time of day to reach caller:Sarahi [phone] Note: Please do not reply to this message. Follow-up communication and further actions as a result of this message need to be communicated with the patient directly, if the patient is not active onMyChart. If the patient is active on MyChart, they will receive notification of the communication/outcome via [employer]. documented in this encounter Plan of Treatment Upcoming Encounters Date Type Department Care Team ([facility] st Contact Info) Description 08/31/2025 8:15 AM EST Clinical Support Pav CC Head, Neck & Respiratory [address] [address] 08/31/2025 8:30 AM EST Office Visit Pav CC Head, Neck & Respiratory 800 [facility], [address] [place] [address] Gabe Cifuentes APRN 800 [facility] [address] [facility] [address] [place] [address] 08/31/2025 10:00 AM EST Appointment [facility] [address] [place] [address] 09/21/2025 9:15 AM EST Clinical Support Pav CC Head, Neck & Respiratory [address] [facility], [address] [place] [address] 09/21/2025 9:30 AM EST Office Visit Pav CC Head, Neck & Respiratory [address] [facility], [address]nd [place] [address] Gabe Cifuentes, GROMMET MAN 800 [facility] [address] [place] [address] 09/21/2025 11:00 AM EST Appointment [facility] [address] [place] [address] 10/05/2025 9:00 AM EST Office Visit [facility] [address], [address] [place] [address] Sanchez Zaldivar MD [address] [facility] [address] [place] [address] 10/05/2025 11:00 AM EST Consult [facility] [address], [address] [place] [address] Shy Marquez, GROMMET MAN [address] [facility] [address] [place] [address] documented as of this encounter Visit Diagnoses [...] documented as of this encounter Care Teams Fabric Worker Relationship Specialty Start Date End Date System, Provider Not In, [address] [place] [address] PCP - General Family Medicine 03/23/25 Miguel Perez MD [address] [place] [address] [address] [place] [address] Consulting Physician Radiation Oncology 04/09/25 documented as of this encounter
--- OUTSIDE RECORDS SUMMARY | 2025-08-22 05:15 | XMS_ITS | Encounter Summary ---
Author Organization Healthcare Address [address] [place] [address] Care Team Providers Care Immigration Case Manager Name Role Phone System, Provider Not In MD Primary Care Provider Unavailable Miguel Perez MD Unavailable [phone] Sherin Romero RN Unavailable Unavailable Encounter Details Date Type Department Care Team (Late st Contact Info) Description 08/12/2025 Telephone [facility] Radiation [address] [id number] [place] [address] Miguel Perez MD [id number] [place] [address] Social History Tobacco Use Types Packs/Day Years [...] any time in the past 12 m [facility], were you homeless or living in [...] drink first t carroll in the morning (EYE-ADOBE BLOCK MAKER) to steady your nerves or to get rid of a hangover? 0 03/20/2025 CAGE Questionnaire Score 0 025 Utilities Answer Date Recorded In the past 12 months has th e [email or web address], gas, oil, or water company threatened to [...] [facility] st Contact Info) Description 08/31/2025 8:15 AM EST Clinical Support [facility] [address] [address] 08/31/2025 8:30 AM EST Office Visit [facility] [address] [address] Gabe Cifuentes, SALES DEPARTMENT MANAGER 800 [facility] [address] [address] 08/31/2025 10:00 AM EST Appointment [facility] [address] [place] [phone] 09/21/2025 9:15 AM EST Clinical Support [facility] [address] [address] 09/21/2025 9:30 AM EST Office Visit [facility] [address] [phone] Gabe Cifuentes, SALES DEPARTMENT MANAGER [address] [address] 09/21/2025 11:00 AM EST Appointment [facility] 800 [place] [address] 10/05/2025 9:00 AM EST Office Visit [place] [facility] [address] [place] [address] Sanchez Zaldivar MD [address] [place] [phone] 10/05/2025 11:00 AM EST Consult [place] [facility] [address] [place] [address] KrystalShy brice, SALES DEPARTMENT MANAGER [address] [place] [address] documented as of this encounter [...] documented as of this encounter Care Teams Immigration Case Manager Relationship Specialty Start Date End Date System, Provider Not In, [address] [place] [address] PCP - General Family Medicine 03/23/25 Miguel Perez MD [address] [place] [address] [address] [place] [address] Consulting Physician Radiation Oncology 04/09/25 Sherin Romero RN None None Registered Nurse Medical Oncology 07/20/25 documented as of this encounter
--- OUTSIDE RECORDS SUMMARY | 2025-08-22 05:15 | XMS_ITS | Encounter Summary ---
Author Organization Healthcare Address [address] [place] [address] Care Team Providers Care Sales Account Leader Name Role Phone System, Provider Not In Primary Care Provider Unavailable Miguel Perez MD Unavailable [phone] Reason for Visit * Reason Onset Date Comments [facility] Same Day Appt/Overbook Request 06/10/2025 Encounter Details Date Type Department Care Team (Late st Contact Info) Description 06/10/2025 Telephone [facility] [address] [place] [address] System, Provider Not In, [address] [place] [address] [facility] Same Day Appt/Overbook Request Social History Tobacco Use Types Packs/Day Years [...] drink first t 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 Called patient to confirm. No answer. Left voice mail explaining her appt at 3:[address] TROTTER - scheduled by Daniel. * Telephone Encounter - Norma Porter - 06/10/2025 4:06 PM EDT Triage Note 06/10/2025 4:06 PM Spoke to patient, states she only wants to talk to [place]. States she wants to be scheduled 06/11 at 3:45. * Telephone Encounter - Tea Gamez - 06/10/2025 3:47 PM EDT Status Update Call #3 3rd call regarding the status of the initial request. Best contact number: [phone] (mobile) Optimal time of day to reach caller: ANYTIME Additional comments/information from caller: Patient states she would like to confirm appointment for 06/11 @ 3:45 Note: Please do not reply to this message. Follow-up communication and further actions as a result of this message need to be communicated with the patient directly, if the patient is not active onMyChart. If the patient is active on MyChart, they will receive notification of the communication/outcome via MyChart. * Telephone Encounter - Rafy Pimentel - 06/10/2025 3:42 PM EDT Status Update Call #2 2nd call regarding the status of the initial request. Best contact number: Other: [phone] Optimal time of day to reach caller: ANYTIME Additional comments/information from caller: Pt's daughter is calling requesting a call back from triage. Note: Please do not reply to this message. Follow-up communication and further actions as a result of this message need to be communicated with the patient directly, if the patient is not active onMyChart. If the patient is active on MyChart, they will receive notification of the communication/outcome via eigitalhart. * Telephone Encounter - Daniel Hunter - 06/10/2025 3:29 PM EDT Spoke with patient about the blurred VA in the left eye and sensitivity in both eyes.. gave patientmultiple options on some general schedules for dates she can be seen. Patient states she is going to look at her calendar and call back soon to book. * Telephone Encounter - Petra Ocampo - 06/10/2025 2:18 PM EDT Same Day Appt/Overbook Request Reason for Call: Patient has vision changes, poor focus abaility, no double vision but blurry. Best contact number: [phone] (home) Optimal time of day to reach caller: ANYTIME Additional comments/information from caller: None Note: Please do not reply to this message. Follow-up communication and further actions as a result of this message need to be communicated with the patient directly, if the patient is not active onMyChart. If the patient is active on MyChart, they will receive notification of the communication/outcome via eigitalhart. documented in this encounter Plan of Treatment Upcoming Encounters Date Type Department Care Team (Late st Contact Info) Description 08/31/2025 8:15 AM EST Clinical Support [facility] [address] [phone] 08/31/2025 8:30 AM EST Office Visit [facility] [address] [phone] Gabe Cifuentes, PLANE TENDER 800 [facility] Amaay [facility] [address] [place] [address] 08/31/2025 10:00 AM EST Appointment [facility] [address] [place] [phone] 09/21/2025 9:15 AM EST Clinical Support [facility] [address] [phone] 09/21/2025 9:30 AM EST Office Visit [facility] [address] [phone] Gabe Cifuentes, PLANE TENDER 800 [facility] [address] [address] 09/21/2025 11:00 AM EST Appointment [facility] [address] [place] [address] 10/05/2025 9:00 AM EST Office Visit [facility] [address] [place] [phone] Sanchez Zaldivar MD [address] [place] [address] 10/05/2025 11:00 AM EST Consult [facility] [address] [place] [address] Shy Marquez, PLANE TENDER [address] [place] [address] documented as of this encounter Visit Diagnoses [...] as of this encounter Care Teams Sales Account Leader Relationship Specialty Start Date End Date System, Provider Not In, [place] [address] PCP - General Family Medicine 03/23/25 Miguel Perez MD [address] [place] [address] [address] [place] [address] Consulting Physician Radiation Oncology 04/09/25 documented as of this encounter
--- NOTE | 2025-08-22 05:27 | ECG_ITS ---
APPROVED REPORT Exam: Resting ECG HR:71 bpm ECG Measurements Heart Rate 71 AXES OR 198 P 66 QRSd 105 QRS 64 QT 398 T 30 QTc 420 Conclusion SINUS RHYTHM WITH OCCASIONAL SUPRAVENTRICULAR PREMATURE COMPLEXES No STEMI Electronically signed by : JUAN NORIEGA, 08/22/2025 07:19:50
--- NOTE | 2025-08-22 05:39 | ED_ITS ---
Discharge Plan Disposition Patient Disposition: Admitted Prescriptions Prescriptions: No Action levetiracetam 500 mg tablet 1,500 mg PO BID ondansetron HCl 8 mg tablet 8 mg PO Q8-12H PRN temozolomide 180 mg capsule PO Eliquis 5 mg tablet 5 mg PO DAILY Patient Comments: TAKE ONE TABLET BY MOUTH TWICE DAILY sertraline 50 mg tablet See Rx Instructions .ROUTE .COMPLEX Qty: 90 3RF Dose Instruction: TAKE ONE TABLET BY MOUTH EVERY DAY FOR anxiety/depression Rx Instructions: TAKE ONE TABLET BY MOUTH EVERY DAY FOR anxiety/depression sertraline 25 mg tablet 25 mg PO DAILY Qty: 90 3RF Rx Instructions: to be taken with the 50mg dose omeprazole 20 mg capsule,delayed release(DR/EC) See Rx Instructions .ROUTE .COMPLEX Qty: 90 3RF Dose Instruction: TAKE ONE CAPSULE BY MOUTH EVERY DAY Rx Instructions: TAKE ONE CAPSULE BY MOUTH EVERY DAY atorvastatin 40 mg tablet See Rx Instructions .ROUTE .COMPLEX Qty: 90 3RF Dose Instruction: TAKE ONE TABLET BY MOUTH EVERY DAY Rx Instructions: TAKE ONE TABLET BY MOUTH EVERY DAY Referrals Follow up/Referrals: Mike Shaffer DO [Primary Care Provider, Family Practice] - See instructions Clinical Impressions Clinical Impression: Intractable nausea, Diarrhea, GBM (glioblastoma multiforme) Instructions Patient Instructions: DI for Diarrhea and Traveler's Diarrhea in Adults, DI for Diarrhea and Traveler's Diarrhea in Children, DI for Nausea in Adults, DI for Nausea in Children Print Language Print Language: Greek Discharge ED Provider: Theresa White General Adult HPI <Thereas White MD - Last Filed: 08/22/25 07:08> General Chief complaint: Nausea/Vomiting/Diarrhea Stated complaint: Weakness Time Seen by Provider: 08/22/25 05:09 Mode of Arrival: Wheelchair Source of Information: Patient Description of Symptoms (Recalled from ER Triage Doc. by RN): Patient presents to the ED with diarrhea for a few weeks that has worsened along with vomiting that started last night. She reports abdominal pain. History of Present Illness HPI narrative: 65-year-old female actively undergoing treatment for brain cancer who has had brain surgery and receives chemo every 4 weeks (most recently 20 days ago) presents to the ER for nausea, vomiting, diarrhea, diffuse abdominal pain. Symptoms started yesterday late evening. Patient reports dark green emesis, nothing bloody or coffee grounds in nature. She reports persistent nausea. She also reports chronic diarrhea that is significantly worse b tonight ut nonbloody, nonmelanotic. Denies chest pain, difficulty breathing, dysuria, or hematuria. Denies fevers or chills. No new headache, dizziness, numbness, tingling, or focal weakness. Patient reports feeling diffusely weak. She does have medications at home for nausea to take with chemo but is not clear what it is. Related Data Home Medications ?Medication ?Instructions ?Recorded ?Confirmed levetiracetam 500 mg tablet 1,500 mg PO BID 10/01/24 0 06/05/25 apixaban 5 mg tablet (Eliquis) 5 mg PO DAILY 06/05/25 06/05/25 ondansetron HCl 8 mg tablet 8 mg PO Q8-12H PRN 5 06/05/25 temozolomide 180 mg capsule mg PO 06/05/25 06/05/25 Previous Rx's ?Medication ?Instructions ?Recorded sertraline 25 mg tablet 25 mg PO DAILY #90 tabs 11/04 sertraline 50 mg tablet See Rx Instructions .Route 0 05/12/25 .COMPLEX #90 tabs omeprazole 20 mg capsule,delayed See Rx Instructions . Route 06/04/25 release .COMPLEX #90 caps atorvastatin 40 mg tablet See Rx Instructions .Route 1 .COMPLEX #90 tabs Allergies Allergy/AdvReac Type Severity Reaction Status Date / Time codeine (CODEINE) Allergy Mild Other Verified 06/05/25 13:08 [facility] <Theresa White MD - Last Filed: 08/22/25 07:08> [facility] Disclaimer: The information contained in this section may have been updated after the patient was seen, as this information can be updated by other users. Medical History Tinnitus of both ears Tinnitus Calcaneal spur of both feet History of fracture of right ankle Acquired pes planus of both feet Primary osteoarthritis of both feet Foot pain Surgical History H/O breast biopsy Social History Smoking Status: Never smoker second hand exposure: No alcohol intake: current alcohol intake frequency: 0-2 drinks per day substance use type: denies use current occupational status: other Travel in the last 8 weeks?: None household members: none housing: house current occupation: [employer] current occupational exposures/hazards: No caffeine: Yes Do you have any weakness?: Yes Other Medical History Have you received the Flu Vaccine for this season: Yes Have you received the Pneumonia Vaccine: No <Theresa White MD - Last Filed: 08/22/25 07:08> ROS Obtained: Yes Systems reviewed as appropriate & no additional complaints except as documented Per HPI Physical Exam <Theresa White MD - Last Filed: 08/22/25 07:08> General General appearance: alert and in no apparent distress Comment: chronically ill appearing Head Head exam: atraumatic, normocephalic and other (Flesh-colored stickers with electrodes all over the scalp. According to family this is an electronic device to stop the spread of the cancer ) Eye Eye exam: Present PERRL and EOMI ENT ENT exam: Present mucous membranes moist Neck Neck exam: Present normal inspection and full ROM Chest Chest inspection: Present symmetric chest wall rise Respiratory Respiratory exam: Present normal lung sounds bilaterally; Absent respiratory distress, wheezes or stridor Cardiovascular Cardiovascular exam: Present regular rate and normal rhythm Abdominal Exam Abdominal exam: Present soft and tenderness (Diffuse but worse in the middle); Absent distention, guarding or rebound Extremities Exam Extremities exam: Present full ROM and normal capillary refill; Absent edema Neurological Exam Neurological exam: Present alert and oriented X3; Absent motor sensory deficit Psychiatric Psychiatric exam: Present normal affect and normal mood Skin Skin exam: Present warm and dry Medical Decision Making <Theresa White MD - Last Filed: 08/22/25 07:08> Medical Records Medical records reviewed: Yes I reviewed the patient's medical records. Screening: Per USPSTF and CDC recommendations, given the prevalence of disease in our region, it is our hospital?s policy to screen for HIV and viral Hepatitis for all patients aged 18 and over and those with ongoing risk factors. MR Comment: Last visit here in March patient had to be transferred out for pulmonary air embolism Timmy Inquiry Pt receiving controlled substance: No Vital Signs: 08/22/25 05:09 08/22/25 06:01 08/22/25 06:45 Temperature 98.2 F Temperature Source Axillary Pulse Rate 73 94 H Pulse Rate [Left Radial] 74 Respiratory Rate 16 Blood Pressure 147/65 H 179/97 H Blood Pressure [Left Arm] 140/71 Blood Pressure Mean Blood Pressure Mean [Left Arm] 94 Blood Pressure Source [Left Arm] Automatic Cuff Blood Pressure Position [Left Arm] Sitting 02 Sat by Pulse Oximetry 100 97 96 Oxygen Delivery Method Room Air 08/22/25 07:01 08/22/25 07:30 08/22/25 08:02 Temperature Temperature Source Pulse Rate 80 77 84 Pulse Rate [Left Radial] Respiratory Rate 18 Blood Pressure 135/61 140/94 H 134/76 Blood Pressure [Left Arm] Blood Pressure Mean 85 Blood Pressure Mean [Left Arm] Blood Pressure Source [Left Arm] Blood Pressure Position [Left Arm] 02 Sat by Pulse Oximetry 96 95 95 Oxygen Delivery Method Room Air Room Air 08/22/25 08:55 08/22/25 09:10 Temperature Temperature Source Pulse Rate 88 78 Pulse Rate [Left Radial] Respiratory Rate 16 18 Blood Pressure 126/62 144/73 H Blood Pressure [Left Arm] Blood Pressure Mean 83 79 Blood Pressure Mean [Left Arm] Blood Pressure Source [Left Arm] Blood Pressure Position [Left Arm] 02 Sat by Pulse Oximetry 96 97 Oxygen Delivery Method Lab Data Lab Results 08/22/25 05:41: WBC 10.5, RBC 4.73, Hgb 13.6, Hct 40.2, MCV 85.0, MCH 28.8, MCHC 33.8, RDW 14.4, Plt Count 280, MPV 10.0, Neut % (Auto) 81.8 H, Lymph % (Auto) 9.7 L, Mcpherson % (Auto) 7.1, Eos % (Auto) 0.9, Baso % (Auto) 0.2, Neut # (Auto) 8.6 H, Lymph # (Auto) 1.0, Mcpherson # (Auto) 0.8, Eos # (Auto) 0.1, Baso # (Auto) 0.0, PT 11.4, INR 1.03, Sodium 142, Potassium 3.7, Chloride 103, Carbon Dioxide 26, A nion Gap 16.7 H, BUN 16, Creatinine 0.80, Estimated Creat Clear 78, Estimated GFR 72, Est GFR ( Amer) 87, Glucose 169 H, Lactate 2.1, Calcium 10.1, Total Bilirubin 0.7, AST 26, ALT 20, Alkaline Phosphatase 73, Troponin I < 0.01, Total Protein 7.9, Albumin 5.0, Globulin 2.9, Albumin/Globulin Ratio 1.7, Lipase 48 08/22/25 05:41 08/22/25 05:41 Orders (Tests/Meds): ED MEDICATIONS Generic Name Dose Route Start Last Admin Trade Name Freq PRN Reason Stop Dose Admin Acetaminophen 650 mg 08/22/25 09:34 Acetaminophen 325mg Tab PO 09/21/25 09:33 Q4HP PRN Fever or Mild Pain (1-3) Lactated Ringer's 1,000 mls @ 125 mls/hr 08/22/25 09:45 Lactated Ringer's 1000 Ml Bag IV 08/22/25 17:44 .Q8H RAJ Ondansetron HCl 4 mg 08/22/25 09:34 Ondansetron 4mg/2ml Vial IV 09/21/25 09:33 Q6HP PRN Nausea Prochlorperazine Edisylate 10 mg 08/22/25 05:09 08/22/25 05:43 Prochlorperazine 10mg/2ml Vial IV 09/21/25 05:08 10 mg ONCE PRN Administration Nausea And Vomiting Promethazine HCl 25 mg 08/22/25 09:34 Promethazine Hcl 25mg/Ml 1ml Vial IV 09/21/25 09:33 Q6HP PRN Nausea And Vomiting Discontinued Medications Generic Name Dose Route Start Last Admin Trade Name Freq PRN Reason Stop Dose Admin Lactated Ringer's 1,000 mls @ 999 mls/hr 08/22/25 05:09 08/22/25 07:22 Lactated Ringer's 1000 Ml Bag IV 08/22/25 06:09 Infused .Q1H1M ONE Infusion Lactated Ringer's 1,000 mls @ 999 mls/hr 08/22/25 08:15 08/22/25 08:26 Lactated Ringer's 1000 Ml Bag IV 08/22/25 09:15 999 mls/hr .Q1H1M RAJ Administration Iopamidol 70 ml 08/22/25 06:36 08/22/25 06:37 Iopamidol-370 (76%);100ml Bottle IV 08/22/25 06:37 70 ml ONCE ONE Administration Ondansetron HCl 4 mg 08/22/25 05:09 08/22/25 05:43 Ondansetron 4mg/2ml Vial IV 08/22/25 05:10 4 mg ONCE ONE Administration Ondansetron HCl 4 mg 08/22/25 08:15 08/22/25 08:27 Ondansetron 4mg/2ml Vial IV 08/22/25 08:16 4 mg ONCE ONE Administration Promethazine HCl 25 mg 08/22/25 06:08 08/22/25 06:16 Promethazine Hcl 25mg/Ml 1ml Vial IV 08/22/25 06:09 25 mg ONCE ONE Administration Sodium Chloride 25 ml 08/22/25 06:08 08/22/25 06:17 Sodium Chloride 0.9% 25ml Bag IV 08/22/25 06:09 25 ml ONCE ONE Administration Sodium Chloride 10 ml 08/22/25 06:36 08/22/25 06:37 Sodium Chloride 0.9% 10ml Syr (Rad Only) IV 08/22/25 06:37 10 ml ONCE ONE Administration Sodium Chloride 50 ml 08/22/25 06:36 08/22/25 06:37 0.9 % Sodium Chloride 50 Ml Vial IV 08/22/25 06:37 50 ml ONCE ONE Administration Sodium Chloride 25 ml 08/22/25 09:34 Sodium Chloride 0.9% 25ml Bag IV 08/22/25 09:35 ONCE ONE ORDERS Category Date Time Status CT abdomen pelvis w con Stat Cat Scan 08/22/25 05:[address] angio chest PE protocol Stat Cat Scan 08/22/25 06:[address] head/brain wo con Stat Cat Scan 08/22/25 09:06 Completed CBC w/Auto Diff [Complete Blood Count Auto Diff] Stat Lab 08/22/25 05:41 Completed CMP [Comprehensive Metabolic Panel] Stat Lab 08/22/25 05:41 Completed Complete Blood Count Auto Diff AMLAB Lab 08/23/25 06:00 Ordered Comprehensive Metabolic Panel AMLAB Lab 08/23/25 06:00 Ordered Diarrhea 23 Panel, PCR Stat Lab 08/22/25 08:15 Ordered Lactic Acid Stat Lab 08/22/25 05:41 Completed Lipase Stat Lab 08/22/25 05:41 Completed Magnesium AMLAB Lab 08/23/25 06:00 Ordered PT INR [Prothrombin Time INR] Stat Lab 08/22/25 05:41 Completed Trop I [Troponin I] Stat Lab 08/22/25 05:41 Completed Troponin I Q3H Lab 08/22/25 11:30 Ordered Urinalysis and Microscopic Stat Lab 08/22/25 05:12 Ordered Medical Decision Narrative: In summary, this 65-year-old female with comorbidities described in the HPI presents to the emergency department today with nausea, vomiting, diarrhea, diffuse abdominal pain in the setting of active chemo and brain cancer. On initial evaluation patient is hemodynamically stable, afebrile, GCS 15, no focal neurologic deficits appreciated, benign cardiopulmonary exam, no peripheral edema, patient is chronically ill-appearing but does not appear acutely toxic, mild diffuse abdominal tenderness with no rebound or guarding, no peritonitic findings. Differential diagnosis includes but is not limited to viral syndrome, electrolyte abnormality, dehydration, bowel obstruction, metastatic neoplasm, urinary tract infection, also consider the possibility of side effect of cancer treatment however patient has not had treatment in the last 20 days so I would expect that her symptoms if they were going to be related to the cancer treatment would be more closely timed with the treatment. Additionally I did consider the possibility of atypical presentation of ACS. Based on these concerns, I ordered hematologic and serum labs, urine studies, cardiac workup, CT abdomen pelvis. ECG personally interpreted demonstrates sinus rhythm, occasional PAC, rate 71, normal axis, normal KS and QTc, no STEMI. Patient received Zofran, IV fluids initially for treatment. PRN compazine dose is available if needed to control symptoms as well Labs personally reviewed demonstrate no leukocytosis or anemia, normal platelets, PT/INR normal, CMP with elevated anion gap likely related to volume losses, lactate 2.1, troponin undetectably low less than 0.01 reassuring in the setting of nonischemic ECG and no chest pain. Lipase normal.. Imaging pending at time of physician handoff. Patient handed off to Dr. Perez in stable condition. <Lucero Perez MD - Last Filed: 08/22/25 09:39> Vital Signs: 08/22/25 05:09 08/22/25 06:01 08/22/25 06:45 Temperature 98.2 F Temperature Source Axillary Pulse Rate 73 94 H Pulse Rate [Left Radial] 74 Respiratory Rate 16 Blood Pressure 147/65 H 179/97 H Blood Pressure [Left Arm] 140/71 Blood Pressure Mean Blood Pressure Mean [Left Arm] 94 Blood Pressure Source [Left Arm] Automatic Cuff Blood Pressure Position [Left Arm] Sitting 02 Sat by Pulse Oximetry 100 97 96 Oxygen Delivery Method Room Air 08/22/25 07:01 08/22/25 07:30 08/22/25 08:02 Temperature Temperature Source Pulse Rate 80 77 84 Pulse Rate [Left Radial] Respiratory Rate 18 Blood Pressure 135/61 140/94 H 134/76 Blood Pressure [Left Arm] Blood Pressure Mean 85 Blood Pressure Mean [Left Arm] Blood Pressure Source [Left Arm] Blood Pressure Position [Left Arm] 02 Sat by Pulse Oximetry 96 95 95 Oxygen Delivery Method Room Air Room Air 08/22/25 08:55 08/22/25 09:10 Temperature Temperature Source Pulse Rate 88 78 Pulse Rate [Left Radial] Respiratory Rate 16 18 Blood Pressure 126/62 144/73 H Blood Pressure [Left Arm] Blood Pressure Mean 83 79 Blood Pressure Mean [Left Arm] Blood Pressure Source [Left Arm] Blood Pressure Position [Left Arm] 02 Sat by Pulse Oximetry 96 97 Oxygen Delivery Method Lab Data Lab results reviewed: Yes I reviewed the patient's lab results. Lab Results 08/22/25 05:41: WBC 10.5, RBC 4.73, Hgb 13.6, Hct 40.2, MCV 85.0, MCH 28.8, MCHC 33.8, RDW 14.4, Plt Count 280, MPV 10.0, Neut % (Auto) 81.8 H, Lymph % (Auto) 9.7 L, Mcpherson % (Auto) 7.1, Eos % (Auto) 0.9, Baso % (Auto) 0.2, Neut # (Auto) 8.6 H, Lymph # (Auto) 1.0, Mcpherson # (Auto) 0.8, Eos # (Auto) 0.1, Baso # (Auto) 0.0, PT 11.4, INR 1.03, Sodium 142, Potassium 3.7, Chloride 103, Carbon Dioxide 26, A nion Gap 16.7 H, BUN 16, Creatinine 0.80, Estimated Creat Clear 78, Estimated GFR 72, Est GFR ( Amer) 87, Glucose 169 H, Lactate 2.1, Calcium 10.1, Total Bilirubin 0.7, AST 26, ALT 20, Alkaline Phosphatase 73, Troponin I < 0.01, Total Protein 7.9, Albumin 5.0, Globulin 2.9, Albumin/Globulin Ratio 1.7, Lipase 48 Orders (Tests/Meds): ED MEDICATIONS Generic Name Dose Route Start Last Admin Trade Name Freq PRN Reason Stop Dose Admin Acetaminophen 650 mg 08/22/25 09:34 Acetaminophen 325mg Tab PO 09/21/25 09:33 Q4HP PRN Fever or Mild Pain (1-3) Lactated Ringer's 1,000 mls @ 125 mls/hr 08/22/25 09:45 Lactated Ringer's 1000 Ml Bag IV 08/22/25 17:44 .Q8H RAJ Ondansetron HCl 4 mg 08/22/25 09:34 Ondansetron 4mg/2ml Vial IV 09/21/25 09:33 Q6HP PRN Nausea Prochlorperazine Edisylate 10 mg 08/22/25 05:09 08/22/25 05:43 Prochlorperazine 10mg/2ml Vial IV 09/21/25 05:08 10 mg ONCE PRN Administration Nausea And Vomiting Promethazine HCl 25 mg 08/22/25 09:34 Promethazine Hcl 25mg/Ml 1ml Vial IV 09/21/25 09:33 Q6HP PRN Nausea And Vomiting Discontinued Medications Generic Name Dose Route Start Last Admin Trade Name Freq PRN Reason Stop Dose Admin Lactated Ringer's 1,000 mls @ 999 mls/hr 08/22/25 05:09 08/22/25 07:22 Lactated Ringer's 1000 Ml Bag IV 08/22/25 06:09 Infused .Q1H1M ONE Infusion Lactated Ringer's 1,000 mls @ 999 mls/hr 08/22/25 08:15 08/22/25 08:26 Lactated Ringer's 1000 Ml Bag IV 08/22/25 09:15 999 mls/hr .Q1H1M RAJ Administration Iopamidol 70 ml 08/22/25 06:36 08/22/25 06:37 Iopamidol-370 (76%);100ml Bottle IV 08/22/25 06:37 70 ml ONCE ONE Administration Ondansetron HCl 4 mg 08/22/25 05:09 08/22/25 05:43 Ondansetron 4mg/2ml Vial IV 08/22/25 05:10 4 mg ONCE ONE Administration Ondansetron HCl 4 mg 08/22/25 08:15 08/22/25 08:27 Ondansetron 4mg/2ml Vial IV 08/22/25 08:16 4 mg ONCE ONE Administration Promethazine HCl 25 mg 08/22/25 06:08 08/22/25 06:16 Promethazine Hcl 25mg/Ml 1ml Vial IV 08/22/25 06:09 25 mg ONCE ONE Administration Sodium Chloride 25 ml 08/22/25 06:08 08/22/25 06:17 Sodium Chloride 0.9% 25ml Bag IV 08/22/25 06:09 25 ml ONCE ONE Administration Sodium Chloride 10 ml 08/22/25 06:36 08/22/25 06:37 Sodium Chloride 0.9% 10ml Syr (Rad Only) IV 08/22/25 06:37 10 ml ONCE ONE Administration Sodium Chloride 50 ml 08/22/25 06:36 08/22/25 06:37 0.9 % Sodium Chloride 50 Ml Vial IV 08/22/25 06:37 50 ml ONCE ONE Administration Sodium Chloride 25 ml 08/22/25 09:34 Sodium Chloride 0.9% 25ml Bag IV 08/22/25 09:35 ONCE ONE ORDERS Category Date Time Status CT abdomen pelvis w con Stat Cat Scan 08/22/25 05:[address] angio chest PE protocol Stat Cat Scan 08/22/25 06:[address] head/brain wo con Stat Cat Scan 08/22/25 09:06 Completed CBC w/Auto Diff [Complete Blood Count Auto Diff] Stat Lab 08/22/25 05:41 Completed CMP [Comprehensive Metabolic Panel] Stat Lab 08/22/25 05:41 Completed Complete Blood Count Auto Diff AMLAB Lab 08/23/25 06:00 Ordered Comprehensive Metabolic Panel AMLAB Lab 08/23/25 06:00 Ordered Diarrhea 23 Panel, PCR Stat Lab 08/22/25 08:15 Ordered Lactic Acid Stat Lab 08/22/25 05:41 Completed Lipase Stat Lab 08/22/25 05:41 Completed Magnesium AMLAB Lab 08/23/25 06:00 Ordered PT INR [Prothrombin Time INR] Stat Lab 08/22/25 05:41 Completed Trop I [Troponin I] Stat Lab 08/22/25 05:41 Completed Troponin I Q3H Lab 08/22/25 11:30 Ordered Urinalysis and Microscopic Stat Lab 08/22/25 05:12 Ordered Medical Decision Narrative: In summary, this 65-year-old female with comorbidities described in the HPI presents to the emergency department today with nausea, vomiting, diarrhea, diffuse abdominal pain in the setting of active chemo and brain cancer. On initial evaluation patient is hemodynamically stable, afebrile, GCS 15, no focal neurologic deficits appreciated, benign cardiopulmonary exam, no peripheral edema, patient is chronically ill-appearing but does not appear acutely toxic, mild diffuse abdominal tenderness with no rebound or guarding, no peritonitic findings. Differential diagnosis includes but is not limited to viral syndrome, electrolyte abnormality, dehydration, bowel obstruction, metastatic neoplasm, urinary tract infection, also consider the possibility of side effect of cancer treatment however patient has not had treatment in the last 20 days so I would expect that her symptoms if they were going to be related to the cancer treatment would be more closely timed with the treatment. Additionally I did consider the possibility of atypical presentation of ACS. Based on these concerns, I ordered hematologic and serum labs, urine studies, cardiac workup, CT abdomen pelvis. ECG personally interpreted demonstrates sinus rhythm, occasional PAC, rate 71, normal axis, normal KS and QTc, no STEMI. Patient received Zofran, IV fluids initially for treatment. PRN compazine dose is available if needed to control symptoms as well Labs personally reviewed demonstrate no leukocytosis or anemia, normal platelets, PT/INR normal, CMP with elevated anion gap likely related to volume losses, lactate 2.1, troponin undetectably low less than 0.01 reassuring in the setting of nonischemic ECG and no chest pain. Lipase normal.. Imaging pending at time of physician handoff. Patient handed off to Dr. Perez in stable condition. Reassessment this is Dr. Perez at 936 and took over from Dr. White at [address] scans performed which I personally interpreted there is evidence of fluid through her intestines consistent with enteritis radiology stated this could be consistent with a bowel obstruction in the right clinical setting but patient does not have significant worsening abdominal pain and this is not consistent with that she is also had diarrhea for several weeks no bowel obstructions very unlikely. Given the fact that she has had diarrhea for several weeks we will send a stool PCR panel patient has not yet been able to give us a stool sample her last bowel movement was 1 AM but that will be completed inpatient. Patient had persistent nausea and vomiting despite Phenergan Compazine 2 rounds of Zofran etc. I considered giving her dexamethasone however she is unable to have that with the clinical trial that she is on a CT scan of her head was performed which I personally interpreted shows no significant or large amount of vasogenic edema. I do not have her old imaging to compare to but it does not look like the cause of her symptoms today. Patient continues to be symptomatic and she and her daughter agree that she needs to be in the hospital for IV fluids and symptomatic control. Her chemotherapy is due on Sunday and it is oral and they mental make sure that they do not interrupt that. Given the fact that this suggest the need for IV fluids and symptomatic control did not feel that she need to be transferred [facility] I discussed this with the family as well as with Dr. Carrion who agreed if for some reason she still in the hospital and still symptomatic tomorrow with Dr. Carrion will consider discussing the case with her clinical trial team at . But no change in chemotherapy or surgical need is indicated at the moment. Critical Care <Theresa White MD - Last Filed: 08/22/25 07:08> Critical Care Time Critical Care Time: No <Lucero Perez MD - Last Filed: 08/22/25 09:39> Critical Care Time Critical Care Time: Yes Attestation: On 08/22/25, the high probability of a clinically significant, sudden or life threatening deterioration of the following system(s) required my full and direct attention, intervention and personal management. The time I documented below is in addition to time spent performing reported procedures but includes the following listed in this critical care notation. Total Time Total Critical Care Time: 35
[2025-08-22] MEDS: PROCHLORPERAZINE 10MG/2ML VIAL 10 MG IV (05:43)
[2025-08-22] MEDS: ONDANSETRON 4MG/2ML VIAL 4 MG IV ×2 (05:43→08:27)
[2025-08-22] MEDS: LACTATED RINGERS 1000ML 1,000 ML 999 ML IV ×2 (05:44→08:26)
[2025-08-22 06:05] LABS: Albumin Level 5.0 g/dl (3.5-5.0)
[2025-08-22 06:06] LABS: Chloride 103 mmol/L (98-107); Potassium 3.7 mmoL/L (3.5-5.1); Sodium 142 mmol/L (136-145)
[2025-08-22 06:08] LABS: Alanine Aminotransferase 20 U/L (12-78); Aspartate Amino Transferase 26 U/L (14-36); Blood Urea Nitrogen 16 mg/dl (7-17); Creatinine Clearance Estimated 78 mL/min (50-200); Creatinine,Serum 0.80 mg/dl (0.52-1.04); Estimated Glomerular Filt Rate 72 ml/min (>60); GFR (African American) 87 ML/MIN (>60); Hematocrit 40.2 % (37.0-47.0); Hemoglobin 13.6 g/dL (12.2-16.2); Immature Granulocytes % 0.3 %; Mean Corpuscular HGB Conc 33.8 g/dL (31.8-35.4); Mean Corpuscular Hemoglobin 28.8 pg (27.0-31.2); Mean Corpuscular Volume 85.0 fl (81-99); Nucleated Red Blood Cells % 0 %; Platelet Count 280 K/mm3 (142-424); Red Blood Count 4.73 M/mm3 (4.20-5.40); Red Cell Distribution Width-SD 44.4 fL; White Blood Count 10.5 K/mm3 (4.8-10.8)
[2025-08-22 06:09] LABS: Albumin/Globulin Ratio 1.7 (1.1-1.8); Alkaline Phosphatase 73 U/L (38-126); Anion Gap 16.7 mEq/L (5-15); Bilirubin,Total 0.7 mg/dl (0.2-1.3); Calcium 10.1 mg/dl (8.4-10.2); Carbon Dioxide 26 mmol/L (22.0-30.0); Globulin 2.9 g/dL (1.3-3.2); Glucose 169 mg/dl (74-100); INR 1.03 (0.9-1.1); Lipase 48 U/L (23-300); Prothrombin Time 11.4 seconds (10.1-12.5); Total Protein,Serum 7.9 g/dl (6.3-8.2)
[2025-08-22] MEDS: PROMETHAZINE HCL 25MG/ML 1ML VIAL 25 MG IV (06:16)
[2025-08-22] MEDS: SODIUM CHLORIDE 0.9% 25ML BAG 25 ML IV (06:17)
[2025-08-22 06:24] LABS: Troponin I < 0.01 ng/ml (0.00-0.034)
--- NOTE | 2025-08-22 06:27 | CT_ITS ---
PROCEDURE INFORMATION: Exam: CTA Chest With Contrast Exam date and time: 08/22/2025 6:36 AM Age: 65 years old Clinical indication: Other: Hypoxia, brain cancer PT TECHNIQUE: Imaging protocol: Computed tomographic angiography of the chest with contrast. Exam focused on the arteries. 3D rendering (Not supervised by radiologist): MIP and/or 3D reconstructed images were created by the technologist. Radiation optimization: All CT scans at this facility use at least one of these dose optimization techniques: automated exposure control; mA and/or kV adjustment per patient size (includes targeted exams where dose is matched to clinical indication); or iterative reconstruction. Contrast material: ISOUVE 370; Contrast volume: 70 ml; Contrast route: INTRAVENOUS (IV); COMPARISON: CR XR CHEST PORTABLE 09/05/2024 12:45 PM FINDINGS: Pulmonary arteries: No evidence of pulmonary embolus. Aorta: Unremarkable. No aortic aneurysm. No aortic dissection. Lungs: Mild bibasilar atelectasis. Pleural spaces: Unremarkable. No pneumothorax. No pleural effusion. Heart: Unremarkable. No cardiomegaly. No pericardial effusion. Coronary arteries: No coronary calcium. Lymph nodes: Prominent calcified hilar and mediastinal lymph nodes consistent with prior granulomatous disease. Bones/joints: Unremarkable. No acute fracture. Soft tissues: Unremarkable. IMPRESSION: 1. No evidence of pulmonary embolus or other acute process. 2. Mild bibasilar atelectasis.
[2025-08-22] MEDS: IOPAMIDOL-370 (76%);100ML BOTTLE 70 ML IV (06:37)
[2025-08-22] MEDS: SODIUM CHLORIDE 0.9% 10ML SYR (RAD ONLY) 10 ML IV (06:37)
[2025-08-22] MEDS: 0.9 % SODIUM CHLORIDE 50 ML VIAL IV (06:37)
--- NOTE | 2025-08-22 09:06 | CT_ITS ---
PROCEDURE INFORMATION: Exam: CT Head Without Contrast Exam date and time: 08/22/2025 9:15 AM Age: 65 years old Clinical indication: Other: Gbm, persistent nv TECHNIQUE: Imaging protocol: Computed tomography of the head without contrast. Radiation optimization: All CT scans at this facility use at least one of these dose optimization techniques: automated exposure control; mA and/or kV adjustment per patient size (includes targeted exams where dose is matched to clinical indication); or iterative reconstruction. COMPARISON: CT ANGIO HEAD 03/19/2025 11:50 AM FINDINGS: Brain: There is redemonstration of heterogeneous thick-walled lesion centered in the left sylvian fissure. The cystic component measures 2.4 x 1.8 x 2.0 cm, previously 1.2 x 1.0 x 1.4 cm. Findings can be attributable to residual/recurrent lesion versus posttreatment changes. Peripheral calcifications are increased. There is mild amount of surrounding tumefactive edema. There are scattered hypodensities in the periventricular and subcortical white matter. The appearance is nonspecific, but most likely represents chronic small vessel disease in a person of this age. Cerebral ventricles: The ventricles, sulci and cisterns are normal in size and configuration. No hydrocephalus or midline structure shift Paranasal sinuses: Visualized sinuses are unremarkable. No fluid levels. Mastoid air cells: Visualized mastoid air cells are well aerated. Bones: There are old postoperative changes from left lateral craniotomy. Soft tissues: Unremarkable. IMPRESSION: There is redemonstration of residual/recurrent lesion in the left sylvian region
--- NOTE | 2025-08-22 09:07 | PC.NURSE ---
pt vomited in her bed. i changed linens and spoke with MD about continuing symptoms
--- NOTE | 2025-08-22 09:10 | PC.NURSE ---
pt to RAD
--- NOTE | 2025-08-22 09:34 | PC.NURSE ---
DR HAYNES AT BEDSIDE TO UPDATE PT AND FAMILY
--- NOTE | 2025-08-22 09:36 | PC.NURSE ---
sports equipment supervisor contacted for bed
--- NOTE | 2025-08-22 09:36 | EXP.HP ---
History of Present Illness *Admission Date: 08/22/25 *Reason for visit:: nausea and vomiting *History of present illness: Ms. Murrell is a 85-year-old female with history of glioblastoma multiforme. She is currently undergoing treatment for her brain cancer and has had history of brain surgery. Receives chemotherapy every 4 weeks. Last dose approximately 20 days ago. Is currently in a study at . She presented with chronic diarrhea over the past few months and reports nausea intermittently every other day but has gotten worse over the past 24 hours and is unable to keep anything down. Denies bloody emesis. Denies any blood in her stool. Emesis is bilious. Denies fever, just feels weak and is unable to keep anything down. No chest pain or shortness of breath. No new headache or change in vision. Workup in the ER with normal white count at 10.5, hemoglobin 13.6. Kidney function normal with BUN 16, creatinine 0.8. Mild anion gap. Sodium and potassium within normal range. Nausea and vomiting intractable with treatment in the ER including Compazine, Phenergan, Zofran. Medicine consulted for further treatment and management of her intractable nausea. Started on IV fluids. Stool panel pending On arrival to stepdown level of care, patient appears alert and oriented but fatigued. Has family at bedside. Is able to answer questions appropriately. Of note, does have some green tinted emesis on front of her down from vomiting. [facility] Disclaimer: The information contained in this section may have been updated after the patient was seen, as this information can be updated by other users. Medical History (Updated 08/22/25 @ 12:26 by Jose Elias Carrion MD) DVT (deep venous thrombosis) Tinnitus of both ears Tinnitus Calcaneal spur of both feet History of fracture of right ankle Acquired pes planus of both feet Primary osteoarthritis of both feet Foot pain Surgical History H/O breast biopsy Family History Other Family history of stroke Social History Smoking Status: Never smoker second hand exposure: No alcohol intake: current alcohol intake frequency: 0-2 drinks per day substance use type: denies use current occupational status: other Travel in the last 8 weeks?: None household members: none housing: house current occupation: [employer] current occupational exposures/hazards: No caffeine: Yes Do you have any weakness?: Yes Other Medical History Have you received the Flu Vaccine for this season: Yes Have you received the Pneumonia Vaccine: No Review of Systems Review of Systems Review of systems (narrative): 14 point review of systems performed, pertinent positives and negatives as per HPI Meds Home Medications and Allergies Home Medications ?Medication ?Instructions ?Recorded ?Confirmed ?Type levetiracetam 500 mg tablet 1,500 mg PO BID 10/01/24 08/22/25 History sertraline 25 mg tablet 25 mg PO DAILY #90 tabs 05/12/25 08/22/25 Rx apixaban 5 mg tablet (Eliquis) 5 mg PO BID 06/05/25 08/22/25 History ondansetron HCl 8 mg tablet 8 mg PO TIDP PRN Nausea And 06/05/25 08/22/25 History Vomiting temozolomide 180 mg capsule 360 mg PO DAILY 06/05/25 08/22/25 History lisinopril 20 mg tablet 20 mg PO DAILY 08/22/25 08/22/25 History omeprazole 20 mg capsule,delayed 20 mg PO HS 08/22/25 08/22/25 History release sertraline 50 mg tablet 50 mg PO DAILY 08/22/25 08/22/25 History New Prescriptions to Start Prescriptions: Allergies Allergy/AdvReac Type Severity Reaction Status Date / Time codeine (CODEINE) Allergy Mild Other Verified 06/05/25 13:08 Exam Data for Last 24 hours Vital signs and Labs for Last 24 Hours: Temp Pulse Resp BP Pulse Ox O2 Del Method 98.2 F 78 18 144/73 H 97 Room Air 08/22/25 05:09 08/22/25 09:10 08/22/25 09:10 08/22/25 09:10 08/22/25 09:10 08/22/25 07:30 Laboratory Results - last 24 hr 08/22/25 05:41: WBC 10.5, RBC 4.73, Hgb 13.6, Hct 40.2, MCV 85.0, MCH 28.8, MCHC 33.8, RDW 14.4, Plt Count 280, MPV 10.0, Neut % (Auto) 81.8 H, Lymph % (Auto) 9.7 L, [place] % (Auto) 7.1, Eos % (Auto) 0.9, Baso % (Auto) 0.2, Neut # (Auto) 8.6 H, Lymph # (Auto) 1.0, [place] # (Auto) 0.8, Eos # (Auto) 0.1, Baso # (Auto) 0.0, PT 11.4, INR 1.03, Sodium 142, Potassium 3.7, Chloride 103, Carbon Dioxide 26, Anion Gap 16.7 H, BUN 16, Creatinine 0.80, Estimated Creat Clear 78, Estimated GFR 72, Est GFR ( Amer) 87, Glucose 169 H, Lactate 2.1, Calcium 10.1, Total Bilirubin 0.7, AST 26, ALT 20, Alkaline Phosphatase 73, Troponin I < 0.01, Total Protein 7.9, Albumin 5.0, Globulin 2.9, Albumin/Globulin Ratio 1.7, Lipase 48 I & O for Last 24 hours: Intake & Output 08/19/25 08/20/25 08/21/25 08/22/25 23:59 23:59 23:59 23:59 Intake Total 1000 / 1000 Balance 1000 / 1000 Weight 90.718 kg Constitutional Constitutional: mild distress, obese, chronically ill appearing and cooperative *Routine HEENT Exam Head: Present normocephalic Eye: Present EOMI and PERRL ENT: Present mucous membranes moist Comments: Head shaved *Routine Neck Exam Neck: Present supple; Absent lymphadenopathy *Routine Respiratory Exam Respiratory: Present CTA bilaterally; Absent respiratory distress, stridor or wheezes *Routine Cardiovascular Exam Cardiovascular: Present RRR *Routine Abdominal Exam Abdominal: Present soft, normoactive bowel sounds and tenderness (Minimal, nonfocal); Absent distended or rebound *Routine Rectal Exam Rectal:: deferred *Routine Genitalia Exam Genitalia:: deferred *Routine Extremities Exam Extremities: Absent cyanosis, clubbing or edema *Routine Skin Exam Skin: Present intact and warm; Absent rash *Routine Neurological Exam Neurological: Present alert, oriented X3 and moving all extremities; Absent altered mental status Assessment and Plan *Assessment and plan (1) Intractable nausea: Status: Acute Category: Medical Code(s): R11.0 - Nausea (2) Diarrhea: Status: Acute Category: Medical Code(s): R19.7 - Diarrhea, unspecified (3) GBM (glioblastoma multiforme): Status: Acute Category: Medical Code(s): C71.9 - Malignant neoplasm of brain, unspecified (4) Hypertension: Status: Chronic Qualifiers: Hypertension type: primary hypertension Qualified Code(s): I10 - Essential (primary) hypertension Category: Medical Code(s): I10 - Essential (primary) hypertension (5) Depression: Status: Chronic Category: Medical Code(s): F32.A - Depression, unspecified (6) Obesity: Status: Chronic Qualifiers: Body mass index: BMI 37.0-37.9 Obesity classification: adult class 2 (BMI 35 - 39.9) Obesity type: due to excess calories Serious obesity comorbidity presence: without serious comorbidity Qualified Code(s): E66.09 - Other obesity due to excess calories; Z68.37 - Body mass index [BMI] 37.0-37.9, adult Category: Medical Code(s): E66.9 - Obesity, unspecified (7) DVT (deep venous thrombosis): Status: Chronic Category: Medical Code(s): I82.409 - Acute embolism and thrombosis of unspecified deep veins of unspecified lower extremity Plan 65-year-old female with history of glioblastoma, undergoing treatment with mental study at . Presents with intractable nausea and vomiting. Discussed case with ER physician, request admission for further management of her nausea and vomiting and inability to keep down nutrition/fluids. I decided to admit for further care. Will touch base with in regard to any medication restrictions that would conflict with her study participation. Otherwise treating with Zofran and Phenergan at this time, problems addressed as follows: Intractable nausea and vomiting Chronic diarrhea - Secondary to chemotherapy versus gastroenteritis versus brain cancer. - Will continue Zofran 4 mg IV every 6 hours as needed, Phenergan 25 mg IV every 6 hours as needed, and will trial olanzapine 5 mg sublingual once given her failure of previous treatments. - Would benefit from dose of dexamethasone, discussing case with prior to administering to make sure that this does not conflict with her study participation. - Full liquid diet. - Received IV fluids in the ER, continue maintenance fluids at 125 cc an hour LR - Initiate pantoprazole 40 mg IV nightly - labs reassuring with white count of 10.5, hemoglobin 13.6. Kidney function normal with BUN 16, creatinine 0.8. Potassium 3.7. Liver enzymes normal with bilirubin 0.7, AST 26, ALT 20, alk phos 73. - Repeat CBC, CMP, magnesium ordered for the morning - Diarrhea panel pending - Consider Imodium if diarrhea panel negative Glioblastoma multiforme: Undergoing treatment and experimental study at . Not due for any treatment at this time. Next dose due on Sunday. Will discuss case with patient's treatment team at History of DVT: Continue Eliquis 5 mg twice daily Hypertension: Holding less than the setting of active nausea and vomiting Depression/anxiety: Continue Zoloft 50 mg daily Obesity complicates all aspects of her care Full code Eliquis 5mg BID Full liquis diet
[2025-08-22 09:58] LABS: Reflex Lactic Add Lactic Reflex
--- NOTE | 2025-08-22 09:58 | PC.NURSE ---
report given to SKY Rivas for room 261
--- NOTE | 2025-08-22 10:45 | PC.NURSE ---
Patient arrived to ICU via stretcher with ER staff.
[2025-08-22] MEDS: LACTATED RINGERS 1000ML 1,000 ML 125 ML IV (11:06)
[2025-08-22 11:32] LABS: Lactic Acid Follow Up (RFLX 1) 1.2 mmol/L (0.7-2.1)
[2025-08-22 11:46] LABS: Troponin I < 0.01 ng/ml (0.00-0.034)
[2025-08-22] MEDS: OLANZapine 5 MG ODT TABLET SL (11:46)
--- NOTE | 2025-08-22 12:24 | [facility].PHAINT1 ---
Pharmacy Intervention Comments: MEDICATION RECONCILIATION COMPLETE USING EXTERNAL PHARMACY FILL HISTORY.
[2025-08-22] MEDS: APIXABAN 5MG TABLET 5 MG PO ×2 (12:41→20:12)
--- NOTE | 2025-08-22 17:07 | PC.NURSE ---
Patient bladder scanned at this time. Patient has 649mL in the bladder. Dr. Carrion notified. Dr. Carrion states if patient has no urine output by 1999 then we will cath and send a urine. Continuation of care plan.
[2025-08-22 17:33] LABS: Microscopic, Urine URINE MICROSCOPIC (MICROSCOPIC)
[2025-08-22 17:34] LABS: Bilirubin,Urine Negative (Negative); Color,Urine YELLOW (Yellow); Glucose,Urine (UA) Negative (Negative); Ketones,Urine TRACE (Negative); Leukocyte Esterase,Urine Negative (Negative); PH,Urine 6.0 (5.0-8.5); Protein,Urine Negative (Negative); Specific Gravity, Urine 1.020 (1.005-1.030); Urobilinogen,Urine 0.2 EU/dl (0.2)
--- NOTE | 2025-08-22 18:01 | PC.NURSE ---
Patients daughter and patient applied patients home Optune device on at this time.
[2025-08-22 18:24] LABS: Bacteria,Urine Trace /lpf; RBC,Urine Occasional #/hpf (0-3); WBC,Urine Occasional #/hpf (0-3)
[2025-08-22] MEDS: PANTOPRAZOLE 40MG VIAL 40 MG IV (20:13)
[2025-08-23] VITALS (7 sets, daily range): BP systolic 121–139; BP diastolic 58–74; PULSE 58–77; RESP 13–16; TEMP 36.4–36.7; O2SAT 92–96; BMI 36.1
[2025-08-23 07:26] LABS: Hematocrit 32.1 % (37.0-47.0); Hemoglobin 10.4 g/dL (12.2-16.2); Immature Granulocytes % 0.2 %; Mean Corpuscular HGB Conc 32.4 g/dL (31.8-35.4); Mean Corpuscular Hemoglobin 27.9 pg (27.0-31.2); Mean Corpuscular Volume 86.1 fl (81-99); Nucleated Red Blood Cells % 0 %; Platelet Count 204 K/mm3 (142-424); Red Blood Count 3.73 M/mm3 (4.20-5.40); Red Cell Distribution Width-SD 45.7 fL; White Blood Count 4.7 K/mm3 (4.8-10.8)
--- NOTE | 2025-08-23 07:30 | EXP.DC.SUM ---
General Admission date:: 08/22/25 Discharge date: 08/23/25 HPI HPI HPI: Ms. Murrell is a 85-year-old female with history of glioblastoma multiforme. She is currently undergoing treatment for her brain cancer and has had history of brain surgery. Receives chemotherapy every 4 weeks. Last dose approximately 20 days ago. Is currently in a study at . She presented with chronic diarrhea over the past few months and reports nausea intermittently every other day but has gotten worse over the past 24 hours and is unable to keep anything down. Denies bloody emesis. Denies any blood in her stool. Emesis is bilious. Denies fever, just feels weak and is unable to keep anything down. No chest pain or shortness of breath. No new headache or change in vision. Workup in the ER with normal white count at 10.5, hemoglobin 13.6. Kidney function normal with BUN 16, creatinine 0.8. Mild anion gap. Sodium and potassium within normal range. Nausea and vomiting intractable with treatment in the ER including Compazine, Phenergan, Zofran. Medicine consulted for further treatment and management of her intractable nausea. Started on IV fluids. Stool panel pending On arrival to stepdown level of care, patient appears alert and oriented but fatigued. Has family at bedside. Is able to answer questions appropriately. Of note, does have some green tinted emesis on front of her down from vomiting. Hospital Course Hospital Course Hospital Course: 65-year-old female with history of glioblastoma, undergoing treatment with mental study at . Presents with intractable nausea and vomiting. Discussed case with ER physician, request admission for further management of her nausea and vomiting and inability to keep down nutrition/fluids. I decided to admit for further care. Will touch base with in regard to any medication restrictions that would conflict with her study participation. Otherwise treating with Zofran and Phenergan at this time, problems addressed as follows: Intractable nausea and vomiting Chronic diarrhea - Secondary to chemotherapy versus gastroenteritis versus brain cancer. Received Zofran and Phenergan along with Compazine in the ER with continued nausea and vomiting. After admission, trial dose of olanzapine 5 mg sublingual. Had good response with resolution of her nausea and vomiting. Held on any steroids after discussing with due to potential impact on her status and her chemotherapy trial. Able to advance diet. Feeling better by morning. Will continue olanzapine as needed at home for severe breakthrough nausea. Labs overall stable. Patient feeling better. Diarrhea panel obtained shortly after discharge returned negative. No infectious etiology at this time for her nausea and vomiting. Okay to resume Imodium as needed for her diarrhea. Glioblastoma multiforme: Undergoing treatment and experimental study at . Not due for any treatment at this time. Next dose due on Sunday. Discussed case with on-call oncologist at , encouraged to avoid dexamethasone if at all possible for nausea. Did not require any steroids during admission. Recommended she talk to her oncology team Sunday prior to resuming her chemotherapy regimen. History of DVT: Continue Eliquis 5 mg twice daily Hypertension: Hold lisinopril on admission. Okay to resume at discharge Depression/anxiety: Continue Zoloft per home regimen. Total time spent on discharge 33 minutes in counseling, documentation, chart review, and direct care with patient. Exam Data for Last 24 hours Vital signs and Labs for Last 24 Hours: Temp Pulse Resp BP Pulse Ox O2 Del Method O2 Flow Rate 98.0 F 64 15 128/58 L 95 Nasal Cannula 2 08/23/25 04:00 08/23/25 06:00 08/23/25 06:00 08/23/25 06:00 08/23/25 06:00 08/23/25 06:31 08/23/25 06:31 Laboratory Results - last 24 hr 08/22/25 10:55: Lactate 1.2, Troponin I < 0.01 08/22/25 17:27: Urine Color Yellow, Urine Appearance Clear, Urine pH 6.0, Ur Specific [place] 1.020, Urine Protein Negative, Urine Glucose (UA) Negative, Urine Ketones Trace, Urine Blood Negative, Urine Nitrate Negative, Urine Bilirubin Negative, Urine Urobilinogen 0.2, Ur Leukocyte Esterase Negative, Urine RBC Occasional, Urine WBC Occasional, Ur Squamous Epith Cells None, Urine Bacteria Trace I & O for Last 24 hours: Intake & Output 08/20/25 08/21/25 08/22/25 08/23/25 23:59 23:59 23:59 23:59 Intake Total 3579 / 3579 Output Total 700 / 700 Balance 2879 / 2879 Weight 101 kg 101.922 kg Constitutional Constitutional: no acute distress, obese, chronically ill appearing and cooperative *Routine HEENT Exam Head: Present normocephalic Eye: Present EOMI and PERRL ENT: Present mucous membranes moist Comments: head shaved *Routine Neck Exam Neck: Present supple; Absent lymphadenopathy *Routine Respiratory Exam Respiratory: Present CTA bilaterally; Absent rhonchi, wheezes or crackles *Routine Cardiovascular Exam Cardiovascular: Present RRR *Routine Abdominal Exam Abdominal: Present soft and normoactive bowel sounds; Absent tenderness *Routine Rectal Exam Patient deferred: visual exam *Routine Exam Patient deferred: external exam *Routine Extremities Exam Extremities: Absent cyanosis, clubbing or edema *Routine Skin Exam Skin: Present intact and warm; Absent rash *Routine Neurological Exam Neurological: Present alert, oriented X3 and moving all extremities; Absent altered mental status Results Data Completed and Pending Labs on day of discharge: Labs from last 24 hours 08/22/25 08/22/25 17:27 10:55 Lactate 1.2 Troponin I < 0.01 Urine Color Yellow Urine Appearance Clear Urine pH 6.0 Ur Specific [place] 1.020 Urine Protein Negative Urine Glucose (UA) Negative Urine Ketones Trace Urine Blood Negative Urine Nitrate Negative Urine Bilirubin Negative Urine Urobilinogen 0.2 Ur Leukocyte Esterase Negative Urine RBC Occasional Urine WBC Occasional Ur Squamous Epith Cells None Urine Bacteria Trace DS: Diagnosis Discharge Diagnosis (1) Intractable nausea: Status: Acute Code(s): R11.0 - Nausea (2) Diarrhea: Status: Acute Code(s): R19.7 - Diarrhea, unspecified (3) GBM (glioblastoma multiforme): Status: Acute Code(s): C71.9 - Malignant neoplasm of brain, unspecified (4) Hypertension: Status: Chronic Code(s): I10 - Essential (primary) hypertension Qualifiers: Hypertension type: primary hypertension Qualified Code(s): I10 - Essential (primary) hypertension (5) Depression: Status: Chronic Code(s): F32.A - Depression, unspecified (6) Obesity: Status: Chronic Code(s): E66.9 - Obesity, unspecified Qualifiers: Body mass index: BMI 37.0-37.9 Obesity classification: adult class 2 (BMI 35 - 39.9) Obesity type: due to excess calories Serious obesity comorbidity presence: without serious comorbidity Qualified Code(s): E66.09 - Other obesity due to excess calories; Z68.37 - Body mass index [BMI] 37.0-37.9, adult (7) DVT (deep venous thrombosis): Status: Chronic Code(s): I82.409 - Acute embolism and thrombosis of unspecified deep veins of unspecified lower extremity Meds Home Medications and Allergies Home Medications ?Medication ?Instructions ?Recorded ?Confirmed ?Type levetiracetam 500 mg tablet 500 mg PO BID 10/01/24 08/23/25 History sertraline 25 mg tablet 25 mg PO DAILY #90 tabs 05/12/25 08/22/25 Rx apixaban 5 mg tablet (Eliquis) 5 mg PO BID 06/05/25 08/22/25 History ondansetron HCl 8 mg tablet 8 mg PO TIDP PRN Nausea And 06/05/25 08/22/25 History Vomiting temozolomide 180 mg capsule 360 mg PO DAILY 06/05/25 08/22/25 History lisinopril 20 mg tablet 20 mg PO DAILY 08/22/25 08/22/25 History omeprazole 20 mg capsule,delayed 20 mg PO HS 08/22/25 08/22/25 History release sertraline 50 mg tablet 50 mg PO DAILY 08/22/25 08/22/25 History olanzapine 5 mg disintegrating 5 mg sublingual Q8HP PRN Nausea 08/23/25 Rx tablet And Vomiting 5 days #10 tabs New Prescriptions to Start Prescriptions: Jose Elias Conti Allergies Allergy/AdvReac Type Severity Reaction Status Date / Time codeine (CODEINE) Allergy Mild Other Verified 06/05/25 13:08 Discharge Plan Disposition Patient Disposition: Home, Self-Care Condition: Fair Follow up Plan Follow up with: Mike Shaffer DO [Primary Care Provider, Family Practice] - Enter time for follow up Referral Note: Please call the office SundayAugust 24 to schedule your follow up appointment. The office is aware of your need for an appointment. Thank you! Prescriptions/Medication Reconciliation: New olanzapine 5 mg Tablet,Disintegrating 5 mg sublingual Q8HP PRN (Reason: Nausea And Vomiting) 5 Days Qty: 10 0RF Continued levetiracetam 500 mg tablet 500 mg PO BID ondansetron HCl 8 mg tablet 8 mg PO TIDP PRN (Reason: Nausea And Vomiting) temozolomide 180 mg capsule 360 mg PO DAILY Rx Instructions: 360 mg PO daily for 5 days then stopped for 23 days. Patients daughter states she is to start back on 08/24/25 Eliquis 5 mg tablet 5 mg PO BID sertraline 25 mg tablet 25 mg PO DAILY Qty: 90 3RF Rx Instructions: to be taken with the 50mg dose lisinopril 20 mg tablet 20 mg PO DAILY omeprazole 20 mg capsule,delayed release(DR/EC) 20 mg PO HS sertraline 50 mg tablet 50 mg PO DAILY Rx Instructions: TO BE TAKEN WITH 25 MG TABLET Problem Reconciliation Problems Reviewed?: Yes Patient Discharge Instructions ACTIVITY: Continue current activity DIET: continue same diet Patient Instructions: DI for Deep Vein Thrombosis, Nausea and Vomiting in Adults Print Language: Luxembourgish Providers Primary Care Provider: Mike Shaffer Admit Provider: Jose Elias Carrion Attending Provider: Jose Elias Carrion
[2025-08-23 07:51] LABS: Albumin Level 3.4 g/dl (3.5-5.0); Chloride 107 mmol/L (98-107); Sodium 136 mmol/L (136-145)
[2025-08-23 07:52] LABS: Potassium 3.5 mmoL/L (3.5-5.1)
[2025-08-23 07:54] LABS: Alanine Aminotransferase 12 U/L (12-78); Albumin/Globulin Ratio 1.4 (1.1-1.8); Alkaline Phosphatase 51 U/L (38-126); Anion Gap 3.5 mEq/L (5-15); Aspartate Amino Transferase 21 U/L (14-36); Bilirubin,Total 0.5 mg/dl (0.2-1.3); Blood Urea Nitrogen 9 mg/dl (7-17); Carbon Dioxide 29 mmol/L (22.0-30.0); Creatinine Clearance Estimated 88 mL/min (50-200); Creatinine,Serum 0.60 mg/dl (0.52-1.04); Estimated Glomerular Filt Rate 100 ml/min (>60); GFR (African American) 121 ML/MIN (>60); Globulin 2.4 g/dL (1.3-3.2); Total Protein,Serum 5.8 g/dl (6.3-8.2)
[2025-08-23 07:55] LABS: Calcium 8.8 mg/dl (8.4-10.2); Glucose 99 mg/dl (74-100); Magnesium 1.9 mg/dl (1.6-2.3)
[2025-08-23] MEDS: SERTRALINE 50MG TABLET 50 MG PO (08:14)
[2025-08-23] MEDS: APIXABAN 5MG TABLET 5 MG PO (08:14)
[2025-08-23] MEDS: OLANZapine 5 MG ODT TABLET SL (08:53)
--- NOTE | 2025-08-23 09:00 | PC.NURSE ---
IV site discontinued. IV catheter intact. Patient tolerated well. Patient taken to front exit via wheelchair accompanied by Primary RN.
--- NOTE | 2025-08-24 10:12 | SW/DCPLANNER ---
Spoke with patient on the phone. Patient stated that she is good. Patient stated that she is aware of her upcoming appointment. Patient stated that she is going to ask Clinic pharmacy to deliver her medicine to her home. Patient stated that she has no concerns or questions at this time. Archie Moseley
== END 2025-08-23 09:00 | disposition home or self-care (01) ==
LOC: ER 09:38 → ICU 09:50
PROVIDERS: Admitting Provider Internal Medicine Adolescent Medicine; Emergency Provider Emergency Medicine; PCP Internal Medicine; Visit Provider Internal Medicine Adolescent Medicine
DX: C71.9 Malignant neoplasm of brain, unspecified (principal); I82.409 Acute embolism and thrombosis of unspecified deep veins of unspecified lower extremity; G40.909 Epilepsy, unspecified, not intractable, without status epilepticus; Z88.5 Allergy status to narcotic agent; Z79.899 Other long term (current) drug therapy; Z79.01 Long term (current) use of anticoagulants; F32.A Depression, unspecified; F41.9 Anxiety disorder, unspecified; R19.7 Diarrhea, unspecified; E66.09 Other obesity due to excess calories; Z68.37 Body mass index [BMI] 37.0-37.9, adult; R09.02 Hypoxemia; I49.3 Ventricular premature depolarization
CPT/HCPCS: 36415; 51798; 70450; 71275; 74177; 80053; 81001; 83605; 83690; 83735; 84484; 85025; 85610; 93005; 96361; 96374; 96375; 96376; 99285; G0378; J0780; J2405; J2470; J2550; J7120; Q9967

== ENCOUNTER 2025-08-23 13:15 | Outpatient (CLI) | payer OTHER, MEDICARE, SELFPAY ==
--- OUTSIDE RECORDS SUMMARY | 2025-07-01 08:15 | XMS_ITS | Encounter Summary ---
Author Organization Healthcare Address [address] [place] [address] Care Team Providers Care Twenty One Dealer Name Role Phone System, Provider Not In MD Primary Care Provider Unavailable Miguel Perez MD Unavailable [phone] Reason for Visit * Reason Comments Labs Encounter Details Date Type Department Care Team (Latest Contact Info) Description 07/01/2025 9:15 AM EDT Clinical Support [facility] [address] [place] [address] Glioblastoma multiforme (CMS/HCC) Social History Tobacco Use Types Packs/Day Years Used Date Smoking Tobacco: Never Passive Smoke Exposure: Never Smokeless Tobacco: Never Alcohol Use Standard Drinks/Week Comments Never 0 (1 standard drink = 0.6 oz pur e alcohol) No alcohol at all PHQ-2 Answer Date Recorded Patient Health Questionnaire-2 Score 0 10/08/2024 PHQ-9 Answer Date Recorded Patient Health Questionnaire-9 Score 6 10/08/2024 Humiliation, Afraid, Rape, and Kick questionnair e Answer Date Recorded Within the last year, have y ou been afraid of your partner or ex-partner? No 03/20/2025 Within the last year, have y ou been humiliated or emotionally abused in other ways by your partner or ex-partner? No Within the last year, have y ou been kicked, hit, slapped, or otherwise physically hurt by your partner or ex-partner? No 03/20/2025 Within the last year, have y ou been raped or forced to have any kind of sexual activity by your partner or ex-partner? No 03/20/2025 Hunger Vital Sign Answer Date Recorded Within the past 12 months, y ou worried that your food would run out before you got the money to buy more. Never true 03/23/20 25 Within the past 12 months, t he food you bought just didn't last and you didn't have money to get more. Never true 03/23/2025 PRAPARE - Transportation Answer Date Re corded In the past 12 months, has l ack of transportation kept you from medical appointments or from getting medications? No 03/10 In the past 12 months, has l ack of transportation kept you from meetings, work, or from getting things needed for daily living? No 03/23/2025 Housing Stability Vital Sign Answer Trip e Recorded In the last 12 months, was t here a time when you were not able to pay the mortgage or rent on time? No 03/23/2025 In the past 12 months, how m any times have you moved where you were living? 1 03/23/2025 At any time in the past 12 m [facility], were you homeless or living in a usp (including now)? No 03/23/2025 CAGE ASSESSMENT Answer Date Recorded Cage unable to access Not on file 03/20/2025 Cage max number of drinks Not on file 2024 Cage Beverages a week Not on file 03/20/2025 Have you ever felt you should CUT down on your d rinking? 0 03/20/2025 Have you been ANNOYED by people criticizing your drinking? 0 03/20/2025 Have you felt GUILTY about your drinking? 0 03/20/2025 Have you had a drink first t carroll in the morning (EYE-AUTO MACHINIST) to steady your nerves or to get rid of a hangover? 0 03/20/2025 CAGE Questionnaire Score 0 025 Utilities Answer Date Recorded In the past 12 months has th e electric, gas, oil, or water company threatened to shut off services in your home? No 03/23/2025 Comments No Sex and Gender Information Value Date Recorded Sex Assigned at Female 09/22/2024 11:47 AM EST Legal Sex Female 8:04 PM EDT Gender Identity Not on file Sexual Orientation Not on file documented as of this encounter Plan of Treatment Upcoming Encounters Date Type Department Care Team ([facility] st Contact Info) Description 08/31/2025 8:15 AM EST Clinical Support [facility] [address] [address] 08/31/2025 8:30 AM EST Office Visit [facility] [address] [address] Gabe Cifuentes, BRICK WHEELER 800 [facility] [address] [place] [address] 08/31/2025 10:00 AM EST Appointment [facility] [address] [place] [phone] 09/21/2025 9:15 AM EST Clinical Support [facility] [address] [address] 09/21/2025 9:30 AM EST Office Visit [facility] [address] [phone] Gabe Cifuentes, BRICK WHEELER 800 [facility] [address] [address] 09/21/2025 11:00 AM EST Appointment [facility] 800 [place] [address] 10/05/2025 9:00 AM EST Office Visit [facility] [address] [address] Sanchez Zaldivar MD [address] [facility] [address] [place] [address] 10/05/2025 11:00 AM EST Consult [place] [facility] [address], [address]st [place] [address] Shy Marquez, BRICK WHEELER [address] [place] [address] documented as of this encounter Procedures Procedure Name Priority Date/Time Associated Diagnosis Comments T3 Routine 07/01/2025 9:34 AM EDT Glioblastoma multiforme (CMS/HCC) CBC WITH AUTO DIFFERENTIAL Routine 07/01/2025 9:34 AM EDT Glioblastoma multiforme (CMS/HCC) TSH Routine 07/01/2025 9:34 AM EDT Glioblastoma multiforme (CMS/HCC) FREE T4, PLASMA Routine 07/01/2025 9:34 AM EDT Glioblastoma multiforme (CMS/HCC) COMPREHENSIVE METABOLIC PANEL, PLASMA Routine 07/01/2025 9:34 AM EDT Glioblastoma multiforme (CMS/HCC) documented in this encounter Results * CBC and differential (07/01/2025 9:34 AM EDT) WBC Count 4.71 3.70 - 10.30 10*3/uL LAB HEMATOLOGY METHOD 07/01/2025 10:09 AM EDT [facility] RBC Count 4.86 3.90 - 5.20 10*6/uL LAB HEMATOLOGY METHOD 07/01/2025 10:09 AM EDT [facility] HGB 13.4 11.2 - 15.7 g/dL LAB HEMATOLOGY METHOD 07/01/2025 10:09 AM EDT [facility] HCT 40.1 34.0 - 45.0 % LAB HEMATOLOGY METHOD 07/01/2025 10:09 AM EDT [facility] Platelet Count 264 155 - 369 10*3/uL LAB HEMATOLOGY METHOD 07/01/2025 10:09 AM EDT [facility] MCV 83 79 - 98 fL LAB HEMATOLOGY METHOD 07/01/2025 10:09 AM EDT [facility] MCH 27.6 26.0 - 32.0 pg LAB HEMATOLOGY METHOD 07/01/2025 10:09 AM EDT [facility] MCHC 33.4 30.7 - 35.5 g/dL LAB HEMATOLOGY METHOD 07/01/2025 10:09 AM EDT [facility] RDW 14.2 11.5 - 14.5 % LAB HEMATOLOGY METHOD 07/01/2025 10:09 AM EDT [facility] MPV 10.1 8.8 - 12.5 fL LAB HEMATOLOGY METHOD 07/01/2025 10:09 AM EDT [facility] nRBC 0.0 <=0.0 per 100 WBCs LAB HEMATOLOGY METHOD 07/01/2025 10:09 AM EDT [facility] Differential Type Automated LAB HEMATOLOGY METHOD 07/01/2025 10:09 AM EDT [facility] Neutrophils % 57 % LAB HEMATOLOGY METHOD 07/01/2025 10:09 AM EDT [facility] Lymphocytes % 27 % LAB HEMATOLOGY METHOD 07/01/2025 10:09 AM EDT [facility] Monocytes % 12 % LAB HEMATOLOGY METHOD 07/01/2025 10:09 AM EDT [facility] Eosinophils % 3 % LAB HEMATOLOGY METHOD 07/01/2025 10:09 AM EDT [facility] Basophils % 1 % LAB HEMATOLOGY METHOD 07/01/2025 10:09 AM EDT [facility] Immature Granulocytes % 0 % LAB HEMATOLOGY METHOD 07/01/2025 10:09 AM EDT [facility] Neutrophils Absolute 2.67 1.60 - 6.10 10*3/uL LAB HEMATOLOGY METHOD 07/01/2025 10:09 AM EDT [facility] Lymphocytes Absolute 1.28 1.20 - 3.90 10*3/uL LAB HEMATOLOGY METHOD 07/01/2025 10:09 AM EDT [facility] Monocytes Absolute 0.57 0.30 - 0.90 10*3/uL LAB HEMATOLOGY METHOD 07/01/2025 10:09 AM EDT [facility] Eosinophils Absolute 0.14 0.00 - 0.50 10*3/uL LAB HEMATOLOGY METHOD 07/01/2025 10:09 AM EDT [facility] Basophils Absolute 0.04 0.00 - 0.10 10*3/uL LAB HEMATOLOGY METHOD 07/01/2025 10:09 AM EDT [facility] Immature Granulocytes Absolute 0.01 0.00 - 0.06 10*3/uL LAB HEMATOLOGY METHOD 07/01/2025 10:09 AM EDT [facility] Blood Venous blood specimen / Unknown Venipuncture / Unknown 07/01/2025 9:34 AM EDT 07/01/2025 9:58 AM EDT Narrative [facility] - 07/01/2025 10:09 AM EDT Therapeutic decision making should be based on absolute values, rather than percentages. us Chente Sebastian MD LAB BLOOD ORDERABLES Final Res ult [facility] [address] [place] [address] * (ABNORMAL) Comprehensive metabolic panel (07/01/2025 9:34 AM EDT) Glucose, Plasma 109(H) 74 - 99 mg/dL 07/01/2025 10:33 AM EDT [facility] BUN, Plasma 12 8 - 23 mg/dL 07/01/2025 10:33 AM EDT [facility] Creatinine, Plasma 0.56(L) 0.60 - 1.10 mg/dL 07/01/2025 10:33 AM EDT [facility] BUN/Creatinine Ratio 21 07/01/2025 10:33 AM EDT [facility] Sodium, Plasma 140 136 - 145 mmol/L 07/01/2025 10:33 AM EDT [facility] Potassium, Plasma 3.9 3.6 - 4.9 mmol/L 07/01/2025 10:33 AM EDT [facility] Chloride, Plasma 105 97 - 107 mmol/L 07/01/2025 10:33 AM EDT [facility] CO2, Plasma 24 22 - 29 mmol/L 07/01/2025 10:33 AM EDT [facility] Anion Gap 11 6 - 16 mmol/L 07/01/2025 10:33 AM EDT [facility] Total Calcium, Plasma 9.7 8.9 - 10.2 mg/dL 07/01/2025 10:33 AM EDT [facility] Total Protein 6.9 6.3 - 7.9 g/dL 07/01/2025 10:33 AM EDT [facility] Albumin, Plasma 4.2 3.5 - 5.2 g/dL 07/01/2025 10:33 AM EDT [facility] AST, Plasma 16 10 - 35 U/L 07/01/2025 10:33 AM EDT [facility] ALT, Plasma 13 10 - 35 U/L 07/01/2025 10:33 AM EDT [facility] Alkaline Phosphatase, Plasma 76 46 - 142 U/L 07/01/2025 10:33 AM EDT [facility] Total Bilirubin, Plasma 0.3 0.2 - 1.1 mg/dL 07/01/2025 10:33 AM EDT [facility] eGFRcr 100.2 mL/min/1.7 3m*2 07/01/2025 10:33 AM EDT [facility] Comment:Reported eGFRcr in m L/min/1.73m2 is based the CKD-EPI 2020 equation that does not use a race coefficient. Blood Venous blood specimen / Unknown Venipuncture / Unknown 07/01/2025 9:34 AM EDT 07/01/2025 9:55 AM EDT us Chente Sebastian MD LAB BLOOD ORDERABLES Final Res ult [facility] [address] [place] [address] * TSH (07/01/2025 9:34 AM EDT) Thyroid Stimulating Hormone, Plasma 1.69 0.40 - 4.20 uIU/mL 07/01/2025 10:33 AM EDT [facility] Blood Venous blood specimen / Unknown Venipuncture / Unknown 07/01/2025 9:34 AM EDT 07/01/2025 9:55 AM EDT us Chente Sebastian MD LAB BLOOD ORDERABLES Final Res ult [facility] [address] [place] [address] * T3, Serum (07/01/2025 9:34 AM EDT) T3, Serum 101 87 - 187 ng/dL 07/01/2025 10:33 AM EDT [facility] Blood Venous blood specimen / Unknown Venipuncture / Unknown 07/01/2025 9:34 AM EDT 07/01/2025 9:55 AM EDT us Chente Sebastian MD LAB BLOOD ORDERABLES Final Res ult Performing Organization Address [facility]/ZIP Co de Phone Number [facility] [address] [place] [address] * T4, free (07/01/2025 9:34 AM EDT) Free T4, Plasma 1.3 0.8 - 1.7 ng/dL 07/01/2025 10:33 AM EDT [facility] Blood Venous blood specimen / Unknown Venipuncture / Unknown 07/01/2025 9:34 AM EDT 07/01/2025 9:55 AM EDT us Chente Sebastian MD LAB BLOOD ORDERABLES Final Res ult Performing Organization Address City/[facility] [place] [address] documented in this encounter Visit Diagnoses Diagnosis Glioblastoma multiforme (CMS/HCC) Malignant neoplasm of brain, unspecified site documented in this encounter Additional Health Concerns Assessment Noted Time PHQ-9 Depression Total Score: 6 10/08/19 2:13 PM EST A fall risk assessment has been complete d for the patient 07/01/2025 11:19 AM EDT A Body Mass Index follow-up plan has been documented for the patient 06/08/2025 1:01 PM EDT documented as of this encounter Care Teams Twenty One Dealer Relationship Specialty Start Date End Date System, Provider Not In, [address] [place] [address] PCP - General Family Medicine 03/23/25 Miguel Perez MD [address] [place], [place] [address] [address] Consulting Physician Radiation Oncology 04/09/25 documented as of this encounter
--- OUTSIDE RECORDS SUMMARY | 2025-07-01 08:40 | XMS_ITS | Encounter Summary ---
Author Organization Healthcare Address [address] [place] [address] Care Team Providers Care Wreath Inspector Name Role Phone System, Provider Not In MD Primary Care Provider Unavailable Miguel Perez MD Unavailable [phone] Reason for Referral * Medications - Closed Specialty Diagnoses / Procedures [facility] Referred To Contact Diagnoses Glioblastoma multiforme (CMS/HCC) Chente Sebastian MD [address] [address] Phone: tel: fax: Referral ID Status Reason Start Date Expiration Date Visits Re quested Visits Authorized [id number] Closed 1 1 Reason for Visit * Reason Comments Follow-up * Episode Based Medications (Routine) - Authorized Specialty Diagnoses / Procedures [facility] Referred To Contact Diagnoses Glioblastoma multiforme (CMS/HCC) Procedures [id number]: Pembrolizumab or Placebo + Optune Every 21 Days / Temozolomide Every 28 Days Chente Sebastian MD [address] [address] Phone: tel: fax: Chente Sebastian MD [address] [address] Phone: tel: fax: Referral ID Status Reason Start Date Expiration Date V isits Requested Visits Authorized [id number] Authorized 05/29/2025 11/28/2026 1 1 Encounter Details Date Type Department Care Team ([facility] st Contact Info) Description 07/01/2025 9:40 AM EDT Office Visit Pav [facility] Head[facility] Ne[facility] Respiratory [address] [place] [address] Chente Sebastian MD 800 [facility] [address] [place] [address] Glioblastoma multiforme (CMS/HCC) (Primary Dx) Social History [...] in a long term (including now)? No 03/23/2025 CAGE ASSESSMENT Answer [...] drink first t carroll in the morning ([employer]) to steady your nerves or to get [...] Sign Reading Time Taken Comments Blood Pressure 134/73 07/01/2025 9:28 AM EDT Pulse 72 07/01/2025 9:28 AM EDT Temperature 36.3 C (97.4 F) 07/01/2025 9:28 AM EDT Respiratory Rate 16 07/01/2025 9:28 AM EDT Oxygen Saturation 96% 07/01/2025 9:28 AM EDT Inhaled Oxygen Concentration - - Weight 103 kg (227 lb 4.7 oz) 07/01/2025 9:28 AM EDT Height 167.6 cm (5' 6 ) 07/01/2025 9:28 AM EDT Body Mass Index 36.69 07/01/2025 9:28 AM EDT documented in this encounter Miscellaneous Notes * Progress Notes - Rickie Wagner, Velma - 07/01/2025 9:40 AM EDT Pharmacy Hematology/Oncology Treatment Note Herminia Murrell is a 65 y.o. female with GBM (MGMT+, IDH wt) Cancer Staging Glioblastoma multiforme (CMS/HCC) Staging form: High Grade Glioma - Clinical stage from 04/02/2025: Histology: Glioblastoma multiforme, Location: Temporal lobe - Signed by Miguel Perez MD on 04/02/2025 Study Patient: Yes [id number]: A Phase 3, Randomized, Double-Blind, Placebo-Controlled Study of Optune?? (TTFields, 200 kHz) Concomitant with Maintenance Temozolomide and Pembrolizumab Versus Optune?? Concomitant with Maintenance Temozolomide and Placebo for the Treatment of Newly Diagnosed Glioblastoma (EF-41/KEYNOTE D58) Treatment Plan reviewed for GBM-16 Pembrolizumab or Placebo Every 21 Days / Temozolomide maintenance Every 28 Days [x] Follow-Up Clinical Review for Cycle 2 Pembro or Placebo [x] Follow-Up Clinical Review for Cycle 2 TMZ maintenance Interval History: Patient is s/p resection 02/24/25. Pathology shows GBM. Will start treatment with concurrent temozolomide + XRT. Radiation start date scheduled for 03/31/25. Patient has been counseled on this regimen and will start temozolomide on the radiation start date. She [facility] for BL PE + RLE DVT, with extensive clot burden. She is currently on anticoagulationwith therapeutic enoxaparin. 04/06/25: Patient started concurrent temozolomide + radiation 03/30/25. She is tolerating therapy thus far. No nausea reported. Labs have been assessed and remain appropriate for continuation of therapy. Stable grade 1 ALT, AST elevations noted. No changes to current regimen at this time. 04/27/25: Patient continues to tolerate therapy. Labs have been reviewed and remain appropriate for continuation of therapy. 06/05/25: Patient has completed concurrent Temodar + XRT. Ready to proceed with adjuvant TMZ mainteance + pembro or placebo per GBM-16. TMZ maintenance supply received from [facility] for start of Cycle 1, scheduled for 06/08/25. Labs have been reviewed and are appropriate for treatment on 06/08. 07/01/25: Patient tolerated first adjuvant TMZ maintenance cycle. Labs have been reviewed and are appropriate for next cycle. Will increase TMZ to 200 mg/m2/dose with cycle 2 forward. Updated prescription sent to [facility] today. Labs appropriate for infusion today. Today's Wt: Wt Readings from Last 1 Encounters: 07/01/25 103 kg (227 lb 4.7 oz) Dosing Wt: 103 kg Dosing Ht: 167.6 cm DosingBSA: 2.11 m2 Recent Labs: Lab Results Component Value Date WBC 4.71 07/01/2025 NEUTROABS 2.67 07/01/2025 LYMPHSABS 1.28 07/01/2025 HGB 13.4 07/01/2025 PLT 264 07/01/2025 Lab Results Component Value Date GLUCOSE 109 (H) 07/01/2025 CALCIUM 9.7 07/01/2025 NA 140 07/01/2025 K 3.9 07/01/2025 CO2 24 07/01/2025 CL 105 07/01/2025 BUN 12 07/01/2025 CREATININE 0.56 (L) 07/01/2025 Lab Results Component Value Date ALT 13 07/01/2025 AST 16 07/01/2025 ALKPHOS 76 07/01/2025 BILITOT 0.3 07/01/2025 Vitals: Visit Vitals BP 134/73 (BP Location: Left arm, Patient Position: Sitting, BP Cuff Size: Adult) Pulse 72 Temp 36.3 ??C (97.4 ??F) (Oral) Resp 16 Other Relevant Monitoring: none Treatment/Therapy Plan: Pembrolizumab 200 mg [flat dose] or Placebo IV on day 1 Every 21 Days + TTFields/Optune Device + Temozolomide 420 mg (140 mg cap x 3; ~199 mg/m2/dose) orally once nightly on days 1-5 Every 28 Days [x] No dose adjustments made Rx sent to: [facility] Refills due: if continued beyond 12 maintenance cycles Current Treatment Plan History: GBM-16 Pembro or Placebo C1: 06/08/25 C2: 07/01/25 TMZ maintenance C1: 06/08-06/12/25 C2: 07/06-07/10/25 Prior Treatment History: Concurrent TMZ+XRT (03/30-05/08/25) Plan: Patient will return to clinic in 3 weeks with next infusion. Will follow-up at that time. 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 lady with history of expressive aphasia [...] states that this has significantly improved now. Concurrent temozolomide + radiation 03/30/25 to 05/08/25 6000 cGy delivered in 30 fractions Current Treatment Plan History: GBM-16 Pembro or Placebo C1: 06/08/25 TMZ maintenance C1: 06/08-06/12/25 Today: she comes with family and she has done well with her treatments. She is feeling well and is near her baseline. She does still have discomfort from her RLE DVT and remains on Eliquis; she also had bilat PE. She describing the sensation as brittny to having a tourniquet applied. She expresses interest in undergoing an ultrasound examination. Her left leg remains unaffected. Her appetite has diminished, with food tasting different to her, leading to a slight weight loss. She acknowledges that her clothes are not fitting as well as before. She is currently consuming one Ensure drink daily and is attempting to adhere to a ketogenic diet. She reports previous overeating and poor dietary habits, which contributed to her being overweight. She is now making efforts to improve her diet. Her sleep pattern is generally good. She does not report any feelings of claustrophobia. She is actively participating in a cancer survivor exercise program, including water aerobics, and engages in yard work. She also reports moving chairs around her house. She notes that fatigue impacts her speech and cognitive function. She is near her baseline with her speech and is able to perform her ADLs: bathing, dressing, movingaround home including sweepting and dusting her house. She reports improved sleep. She does have episodes of miscommunication, which is much less, uses funny words . She denies having seizures, debilitating headaches, falls or vision problems. Past Medical, Surgical, Family and Social History Reviewed in this encounter by me personally Subjective Review of Systems: Rest of 14 point organ based review of system was conducted and pertinent negatives and positives are placed in the HPI. Objective Performance Status 80% Visit Vitals BP 134/73 (BP Location: Left arm, Patient Position: Sitting, BP Cuff Size: Adult) Pulse 72 Temp 36.3 ??C (97.4 ??F) (Oral) Resp 16 EXAM Physical Exam Constitutional: Appearance: She is normal weight. Comments: Patient is ambulating independently HENT: Head: Comments: Right sided post-operative scar healing Cardiovascular: Rate and Rhythm: Normal rate. Pulmonary: Effort: Pulmonary effort is normal. Abdominal: General: Abdomen is flat. Palpations: Abdomen is soft. Skin: General: Skin is warm and dry. Ext: R lower ext with inc swelling Neurological: Mental Status: She is alert. Coordination: Coordination normal. Gait: Gait normal. Comments: Word difficulty is resolved; fluent speech Psychiatric: Mood and Affect: Mood normal. Behavior: Behavior normal. LABORATORIES AND STUDIES: reviewed by me personally Lab Results Component Value Date BUN 12 07/01/2025 CL 105 07/01/2025 NA 140 07/01/2025 K 3.9 07/01/2025 TP 6.9 07/01/2025 AST 16 07/01/2025 ALT 13 07/01/2025 @NEUTOPHILPCT@ Lab Results Component Value Date WBC 4.71 07/01/2025 HGB 13.4 07/01/2025 HCT 40.1 07/01/2025 MCV 83 07/01/2025 PLT 264 07/01/2025 Assessment/Plan Herminia Murrell is a 65 y.o. lady with history of expressive aphasia [...] having significant word-finding difficulty and intermittent aphasia. Concurrent temozolomide + radiation 03/30/25 to 05/08/25 6000 cGy delivered in 30 fractions Current Treatment Plan History: GBM-16 Pembro or Placebo C1: 06/08/25 C2: 07/01/25 (today) TMZ maintenance C1: 06/08-06/12/25 C2: 07/06-07/10/25 (planned) MRI Brain last on 05-22-25; images reviewed directly as well as report assessed. Findings discussed in detail, which was largely stable with treatment effects and dec flair findings Plan: Enrolled: GBM 16 (EF-41): A Phase 3, Randomized, Double-Blind, Placebo- Controlled Study of Optune?? (TTFields, 200 kHz) Concomitant with Maintenance Temozolomide and Pembrolizumab Versus Optune?? Concomitant with Maintenance Temozolomide and Placebo for the Treatment of Newly Diagnosed Glioblastoma Clinically well and will con't with study therapy No improvement in right leg pain, described as feeling like a tourniquet around the leg. An ultrasound of the right leg will be ordered to evaluate the current condition. Decreased appetite. Reports decreased appetite and some weight loss, with clothes not fitting as well. Currently consuming one Ensure drink daily and trying to eat healthier, including a keto diet. Offered the option ofconsulting with a dietitian or using an appetite stimulant, but prefers to try improving diet first. If appetite does not improve, further interventions will be considered. Sleep disturbance--stable Encouraged to continue social interactions and maintain exercise regimen, including water aerobics and yard work. Will hold on PT, but offered Medications reviewed We also discussed the potential for depression, she is stable We offered access to [facility] We also discussed Phys. Therapy, which she has orders for. We also recommended for her to remain engaged socially. We plan to have her come back as per study and she knows how to get hold of us if he has questions. MD CHAD Lee [facility]ATORY [address] [facility] [address] No referring provider defined for this encounter documented in this encounter Plan of Treatment Upcoming Encounters Date Type Department Care Team (Late st Contact Info) Description 08/31/2025 8:15 AM EST Clinical Support Pav [facility] [address] [address] 08/31/2025 8:30 AM EST Office Visit Pav [facility] [address] [address] Gabe Cifuentes, [employer] SAL[employer]IVER 800 [facility] [address] [address] 08/31/2025 10:00 AM EST Appointment [facility] [address] [place] [address] 09/21/2025 9:15 AM EST Clinical Support Pav [facility] [address] [address] 09/21/2025 9:30 AM EST Office Visit Pav [facility] [address] [address] Gabe Cifuentes, [employer] SAL[employer] DRIVER [address] [place] [address] 09/21/2025 11:00 AM EST Appointment [facility] [address] [place] [address] 10/05/2025 9:00 AM EST Office Visit [facility] [address] [place] [address] Sanchez Zaldivar MD [address] [place] [address] 10/05/2025 11:00 AM EST Consult [facility] [address] [place] [address] Shy Marquez APRN [address] [place] [address] documented as of this encounter Results * (ABNORMAL) Comprehensive metabolic panel (07/22/2025 1:31 PM EST) Glucose, Plasma 109(H) 74 - 99 mg/dL 07/22/2025 2:27 PM EST [facility] BUN, Plasma 16 8 - 23 mg/dL 07/22/2025 2:27 PM EST [facility] Creatinine, Plasma 0.66 0.60 - 1.10 mg/dL 07/22/2025 2:27 PM EST [facility] BUN/Creatinine Ratio 24 07/22/2025 2:27 PM EST [facility] Sodium, Plasma 140 136 - 145 mmol/L 07/22/2025 2:27 PM EST [facility] Potassium, Plasma 3.9 3.6 - 4.9 mmol/L 07/22/2025 2:27 PM EST [facility] Chloride, Plasma 103 97 - 107 mmol/L 07/22/2025 2:27 PM EST [facility] CO2, Plasma 24 22 - 29 mmol/L 07/22/2025 2:27 PM EST [facility] Anion Gap 13 6 - 16 mmol/L 07/22/2025 2:27 PM EST [facility] Total Calcium, Plasma 9.5 8.9 - 10.2 mg/dL 07/22/2025 2:27 PM EST [facility] Total Protein 7.1 6.3 - 7.9 g/dL 07/22/2025 2:27 PM EST [facility] Albumin, Plasma 4.4 3.5 - 5.2 g/dL 07/22/2025 2:27 PM EST [facility] AST, Plasma 16 10 - 35 U/L 07/22/2025 2:27 PM EST [facility] ALT, Plasma 17 10 - 35 U/L 07/22/2025 2:27 PM EST [facility] Alkaline Phosphatase, Plasma 82 46 - 142 U/L 07/22/2025 2:27 PM EST [facility] Total Bilirubin, Plasma 0.5 0.2 - 1.1 mg/dL 07/22/2025 2:27 PM EST [facility] eGFRcr 96.3 mL/min/1.7 3m*2 07/22/2025 2:27 PM EST [facility] Comment:Reported eGFRcr in m L/min/1.73m2 is based the CKD-EPI 2020 equation that does not use a race coefficient. Blood Venous blood specimen / Unknown Venipuncture / Unknown 07/22/2025 1:31 PM EST 07/22/2025 1:56 PM EST us Chente Sebastian MD LAB BLOOD ORDERABLES Final Res ult [facility] [address] [place] [address] * (ABNORMAL) CBC and differential (07/22/2025 1:31 PM EST) WBC Count 5.79 3.70 - 10.30 10*3/uL LAB HEMATOLOGY METHOD 07/22/2025 2:05 PM EST [facility] RBC Count 4.87 3.90 - 5.20 10*6/uL LAB HEMATOLOGY METHOD 07/22/2025 2:05 PM [facility] HGB 13.2 11.2 - 15.7 g/dL LAB HEMATOLOGY METHOD 07/22/2025 2:05 PM [facility] HCT 41.4 34.0 - 45.0 % LAB HEMATOLOGY METHOD 07/22/2025 2:05 PM [facility] Platelet Count 266 155 - 369 10*3/uL LAB HEMATOLOGY METHOD 07/22/2025 2:05 PM [facility] MCV 85 79 - 98 fL LAB HEMATOLOGY METHOD 07/22/2025 2:05 PM [facility] MCH 27.1 26.0 - 32.0 pg LAB HEMATOLOGY METHOD 07/22/2025 2:05 PM [facility] MCHC 31.9 30.7 - 35.5 g/dL LAB HEMATOLOGY METHOD 07/22/2025 2:05 PM [facility] RDW 14.5 11.5 - 14.5 % LAB HEMATOLOGY METHOD 07/22/2025 2:05 PM [facility] MPV 10.2 8.8 - 12.5 fL LAB HEMATOLOGY METHOD 07/22/2025 2:05 PM [facility] nRBC 0.0 <=0.0 per 100 WBCs LAB HEMATOLOGY METHOD 07/22/2025 2:05 PM [facility] Differential Type Automated LAB HEMATOLOGY METHOD 07/22/2025 2:05 PM [facility] Neutrophils % 70 % LAB HEMATOLOGY METHOD 07/22/2025 2:05 PM [facility] Lymphocytes % 18 % LAB HEMATOLOGY METHOD 07/22/2025 2:05 PM [facility] Monocytes % 9 % LAB HEMATOLOGY METHOD 07/22/2025 2:05 PM [facility] Eosinophils % 3 % LAB HEMATOLOGY METHOD 07/22/2025 2:05 PM [facility] Basophils % 0 % LAB HEMATOLOGY METHOD 07/22/2025 2:05 PM [facility] Immature Granulocytes % 0 % LAB HEMATOLOGY METHOD 07/22/2025 2:05 PM [facility] Neutrophils Absolute 4.05 1.60 - 6.10 10*3/uL LAB HEMATOLOGY METHOD 07/22/2025 2:05 PM [facility] Lymphocytes Absolute 1.05(L) 1.20 - 3.90 10*3/uL LAB HEMATOLOGY METHOD 07/22/2025 2:05 PM EST [facility] Monocytes Absolute 0.50 0.30 - 0.90 10*3/uL LAB HEMATOLOGY METHOD 07/22/2025 2:05 PM EST [facility] Eosinophils Absolute 0.16 0.00 - 0.50 10*3/uL LAB HEMATOLOGY METHOD 07/22/2025 2:05 PM EST [facility] Basophils Absolute 0.01 0.00 - 0.10 10*3/uL LAB HEMATOLOGY METHOD 07/22/2025 2:05 PM EST [facility] Immature Granulocytes Absolute 0.02 0.00 - 0.06 10*3/uL LAB HEMATOLOGY METHOD 07/22/2025 2:05 PM EST [facility] Blood Venous blood specimen / Unknown Venipuncture / Unknown 07/22/2025 1:31 PM EST 07/22/2025 1:56 PM EST Narrative [facility] - 07/22/2025 2:05 PM EST Therapeutic decision making should be based on absolute values, rather than percentages. us Chente Sebastian MD LAB BLOOD ORDERABLES Final Res ult [facility] [address] [place] [address] documented in this encounter Visit Diagnoses Diagnosis [...] documented as of this encounter Care Teams Wreath Inspector Relationship Specialty Start Date End Date System, Provider Not In, [place] [address] PCP - General Family Medicine 03/23/25 Miguel Perez MD [address] [place] [address] [id number] [place] [address] Consulting Physician Radiation Oncology 04/09/25 documented as of this encounter
--- OUTSIDE RECORDS SUMMARY | 2025-07-01 09:21 | XMS_ITS | Encounter Summary ---
Author Organization Healthcare Address [address] [place] [address] Care Team Providers Care Glassware Maker Name Role Phone System, Provider Not In MD Primary Care Provider Unavailable Miguel Perez MD Unavailable [phone] Reason for Referral * Imaging (Urgent) - Closed Specialty Diagnoses / Procedures Referred By Contac t Referred To Contact Cardiology Diagnoses Pain and swelling of lower extremity, unspecified laterality Procedures VAS US Venous Duplex Lower Extremity Bilateral Chente Sebastian MD [address] [address] Phone: tel: fax: Referral ID Status Reason Start Date Expiration Date V isits Requested Visits Authorized [id number] Closed Perform Procedure 07/01/2025 12/31/2026 1 1 Reason for Visit * Imaging (Urgent) - Closed Specialty Diagnoses / Procedures Referred By Contac t Referred To Contact Cardiology Diagnoses Pain and swelling of lower extremity, unspecified laterality Procedures VAS US Venous Duplex Lower Extremity Bilateral Chente Sebastian MD [address] [address] Phone: tel: fax: Referral ID Status Reason Start Date Expiration Date V isits Requested Visits Authorized [id number] Closed Perform Procedure 07/01/2025 12/31/2026 1 1 Encounter Details Date Type Department Care Team (Latest Contact Info) Description 07/01/2025 10:21 AM EDT - 07/01/2025 10:59 AM EDT Hospital Encounter [facility] [address] [place] [address] Pain and swelling of lower extremity, unspecified laterality Discharge Disposition: Home or Self Care Social [...] living in a snf (including now)? No 03/23/2025 CAGE ASSESSMENT Answer [...] drink first t carroll in the morning (EYE-EXTERMINATOR HELPER) to steady your nerves or to get [...] on file documented as of this encounter Medications at Time of Discharge Acetaminophen Extra Strength 500 MG tablet TAKE TWO TABLETS BY MOUTH EVERY 6 HOURS NEEDED FOR PAIN 100 tablet 1 06/15/2025 ascorbic acid (Vitamin C) 500 MG tablet Take 1 tablet by mouth daily. 06/01/2025 Ascorbic Acid 97900 MG/30ML solution Infuse 87.5 g into a venous catheter 2 times a week. 175 mL 10 07/02/2025 cholecalciferol (Vitamin D-3) 25 MCG (1000 UT) tablet Take 1 tablet by mouth daily. 06/01/2025 Eliquis 5 MG tablet Take 1 tablet by mouth 2 times a day. 04/16/2025 levETIRAcetam (Keppra) 500 MG tablet Take 3 tablets by mouth 2 times a day. 180 tablet 11 02/27/2025 02/27/2026 omeprazole (PriLOSEC) [address] capsule Take 1 capsule by mouth every morning. Do not crush or chew. ondansetron (Zofran) 8 MG tabletIndication s:Glioblastoma multiforme (CMS/HCC) Take 1 tab (8mg) by mouth daily 30 minutes prior to temozolomide, then up to every 8 hours (max: 3/day) as needed for nausea/vomitin g 90 tablet 1 05/29/2025 polyethylene glycol (Miralax) 17 g packet Take 17 g by mouth daily. 30 packet 5 04/27/2025 prochlorperazine (Compazine) 10 MG tabletIndication s:Glioblastoma multiforme (CMS/HCC) Take 1 tablet by mouth every 6 hours as needed for nausea or vomiting. 30 tablet 5 03/20/2025 senna (Senokot) 8.6 MG tablet Take 2 tablets by mouth nightly. 30 tablet 5 03/21/2025 sertraline (Zoloft) 25 MG tablet Take 1 tablet by mouth daily. Total dose of 75 mg daily (50 mg tablet + 25 mg tablet) 04/03/2025 sertraline (Zoloft) 50 MG tablet Take 1 tablet by mouth daily. Total dose of 75 mg daily (50 mg tablet + 25 mg tablet) temozolomide (Temodar) 140 MG chemo capsuleIndicatio ns:Glioblastoma multiforme (CMS/HCC) Take 3 capsules (420 mg total) by mouth nightly. Take on Days 1-5 every 28 days 15 capsule 10 07/01/2025 documented as of this encounter Plan of Treatment Upcoming Encounters Date Type Department Care Team (Late st Contact Info) Description 08/31/2025 8:15 AM EST Clinical Support [facility] 800 [facility], 2nd [place] [address] 08/31/2025 8:30 AM EST Office Visit [facility] 800 [facility], 2nd [place] [address] Gabe Cifuentes, SOFTWARE DEVELOPER MID LEVEL 800 [facility] [address] [facility] [address] [place] [address] 08/31/2025 10:00 AM EST Appointment [facility] 800 [place] [phone] 09/21/2025 9:15 AM EST Clinical Support [facility] 800 [facility], 2nd [place] [address] 09/21/2025 9:30 AM EST Office Visit [facility] [address] [facility], 2nd [place] [address] Gabe Cifuentes, SOFTWARE DEVELOPER MID LEVEL 800 [facility] [address] [place] [address] 09/21/2025 11:00 AM EST Appointment [facility] [address] [address] 10/05/2025 9:00 AM EST Office Visit [facility] [address], [address]st [place] [address] Sanchez Zaldivar MD [address] [place] [address] 10/05/2025 11:00 AM EST Consult [facility] [address], [address] [place] [address] Shy Marquez, SOFTWARE DEVELOPER MID LEVEL [address] [place] [address] documented as of this encounter Procedures Procedure Name Priority Date/Time Associated Diagnosis Comments VAS US VENOUS DUPLEX LOWER EXTREMITY BILATERAL STAT 07/01/2025 12:07 PM EDT Pain and swelling of lower extremity, unspecified laterality documented in this encounter Results * VAS US Venous Duplex Lower Extremity Bilateral (07/01/2025 12:07 PM EDT) Anatomical Region Laterality Modality Lower Extremities Bilateral Ultrasound Impressions 07/01/2025 3:48 PM EDT Right: Abnormal study; acute DVT is identified in the femoral, popliteal, and gastrocnemius veins. Left: Normal study; no evidence of acute DVT is identified. COMMUNICATION: Gave prelim to Dr. Sebastian's office. RB. Preliminary report signed by Enoc Hines RVT on 07/01/2025 12:19 PM By electronically signing this report, I, the attending physician, attest that I have personally reviewed the images/data for the above examination(s) and I agree with the final edited report. Drafted by Enoc Hines RVT on 07/01/2025 12:11 PM Final report signed by Adrienne Muñoz MD on 07/01/2025 3:48 PM Narrative 07/01/2025 3:48 PM EDT CLINICAL INDICATION: Acute limb swelling; Hx of RLE DVT TECHNIQUE: Non-invasive, real time duplex exam of the lower extremity venous circulation with Doppler ultrasonic waveform and spectral analysis was performed. COMPARISON: BLE venous duplex performed on 03/20/2025 FINDINGS: Right: Hypoechoic thrombus is demonstrated in the noncompressible mid to distal femoral vein, popliteal vein, and gastrocnemius veins. Color and spectral Doppler analysis demonstrate a significant reduction in flow. Venous duplex demonstrates compressible common femoral and proximal femoral veins. The venous spectral analysis demonstrates a spontaneous, phasic, augmentable and nonpulsatile flow signals at the common femoral, mid femoral and popliteal veins. The visualized portions of the posterior tibial veins are compressible, while the peroneal veins demonstrate complete color filling. Left: Venous duplex demonstrates compressible common femoral, femoral, popliteal, posterior tibial and peroneal veins. The venous spectral analysis demonstrates a spontaneous, phasic, augmentable and nonpulsatile flow signals at the common femoral, mid femoral and popliteal veins. Procedure Note Adrienne Muñoz MD - 07/01/2025 CLINICAL INDICATION: Acute limb swelling; Hx of RLE DVT TECHNIQUE: Non-invasive, real time duplex exam of the lower extremity venouscirculation with Doppler ultrasonic waveform and spectral analysis wasperformed. COMPARISON: BLE venous duplex performed on 03/20/2025 FINDINGS: Right: Hypoechoic thrombus is demonstrated in the noncompressible mid to distalfemoral vein, popliteal vein, and gastrocnemius veins. Color and spectralDoppler analysis demonstrate a significant reduction in flow. Venous duplex demonstrates compressible common femoral and proximalfemoral veins. The venous spectral analysis demonstrates a spontaneous,phasic, augmentable and nonpulsatile flow signals at the common femoral,mid femoral and popliteal veins. The visualized portions of the posterior tibial veins are compressible,while the peroneal veins demonstrate complete color filling. Left: Venous duplex demonstrates compressible common femoral, femoral,popliteal, posterior tibial and peroneal veins. The venous spectralanalysis demonstrates a spontaneous, phasic, augmentable and nonpulsatileflow signals at the common femoral, mid femoral and popliteal veins. IMPRESSION: Right: Abnormal study; acute DVT is identified in the femoral, popliteal,and gastrocnemius veins. Left: Normal study; no evidence of acute DVT is identified. COMMUNICATION: Gave prelim to Dr. Sebastian's office. RB. Preliminary report signed by Enoc Hines RVT on 07/01/2025 12:19PM By electronically signing this report, I, the attending physician, attestthat I have personally reviewed the images/data for the aboveexamination(s) and I agree with the final edited report. Drafted by Enoc Hines RVT on 07/01/2025 12:11 PM Final report signed by Adrienne Muñoz MD on 07/01/2025 3:48 PM Chente Sebastian MD CV VASCULAR PROCEDURES Final R esult documented in this encounter Visit Diagnoses Diagnosis Pain and swelling of lower extremity, unspecified laterality documented in this encounter Additional Health Concerns Assessment Noted Time PHQ-9 Depression Total Score: 6 10/08/19 2:13 PM EST A fall risk assessment has been complete d for the patient 07/01/2025 11:19 AM EDT A Body Mass Index follow-up plan has been documented for the patient 06/08/2025 1:01 PM EDT documented as of this encounter Care Teams Glassware Maker Relationship Specialty Start Date End Date System, Provider Not In, [place] [address] PCP - General Family Medicine 03/23/25 Miguel Perez MD [id number] [place] [phone] Consulting Physician Radiation Oncology 04/09/25 documented as of this encounter
--- OUTSIDE RECORDS SUMMARY | 2025-07-01 10:00 | XMS_ITS | Encounter Summary ---
Author Organization Healthcare Address [address] [place] [address] Care Team Providers Care Commercial Account Officer Name Role Phone System, Provider Not In MD Primary Care Provider Unavailable Miguel Perez MD Unavailable [phone] Reason for Visit * Episode Based Medications (Routine) - Authorized Specialty Diagnoses / Procedures Referred By Contac t Referred To Contact Diagnoses Glioblastoma multiforme (CMS/HCC) Procedures [id number]: Pembrolizumab or Placebo + Optune Every 21 Days / Temozolomide Every 28 Days Chente Sebastian MD [address] [place] [address] Liyah Conde [address] [address] Phone: tel: fax: Chente Sebastian MD 800 [facility] Liayh Conde [address] [address] Phone: tel: fax: Referral ID Status Reason Start Date Expiration Date V isits Requested Visits Authorized [id number] Authorized 05/29/2025 11/28/2026 1 1 Encounter Details Date Type Department Care Team (Latest Contact Info) Description 07/01/2025 11:00 AM EDT - 07/01/2025 11:59 PM EDT Hospital Encounter [facility] [address] [place] [address] Glioblastoma multiforme (CMS/HCC) (Primary Dx) Discharge Disposition: Home or Self Care Social History Tobacco Use Types Packs/Day Years Used Date Smoking Tobacco: Never Passive Smoke Exposure: Never Smokeless Tobacco: Never Tobacco Cessation:Counseling Given: [...] time in the past 12 m [facility], were you homeless or living in a [...] drink first t carroll in the morning (EYE-DENTAL INSURANCE BILLER) to steady your nerves or to get [...] Sign Reading Time Taken Comments Blood Pressure 149/83 07/01/2025 11:19 AM EDT Pulse 79 07/01/2025 11:19 AM EDT Temperature 36.4 C (97.6 F) 07/01/2025 11:19 AM EDT Respiratory Rate 16 07/01/2025 11:19 AM EDT Oxygen Saturation 93% 07/01/2025 11:19 AM EDT Inhaled Oxygen Concentration - - Weight 103 kg (227 lb 4.7 oz) 07/01/2025 11:19 A M EDT Height 167.6 cm (5' 6 ) 07/01/2025 11:19 AM EDT Body Mass Index 36.69 07/01/2025 11:19 AM EDT documented in this encounter Medications at Time of Discharge Acetaminophen Extra Strength 500 MG tablet TAKE TWO TABLETS BY MOUTH EVERY 6 HOURS NEEDED FOR PAIN 100 tablet 1 06/15/2025 ascorbic acid (Vitamin C) 500 MG tablet Take 1 tablet by mouth daily. 06/01/2025 Ascorbic Acid 08407 MG/30ML solution Infuse 87.5 g into a [...] Upcoming Encounters Date Type Department Care Team ([facility] st Contact Info) Description 08/31/2025 8:15 AM EST Clinical Support [facility] 800 [facility] [address] 08/31/2025 8:30 AM EST Office Visit [facility] [address] [phone] Gabe Cifuentes, FRONT DESK SPECIALIST 800 [facility] [address] [place] [address] 08/31/2025 10:00 AM EST Appointment [facility] [address] [place] [address] 09/21/2025 9:15 AM EST Clinical Support [facility] [address] [address] 09/21/2025 9:30 AM EST Office Visit [facility] [address] [phone] Gabe Cifuentes, FRONT DESK SPECIALIST 800 [facility] [address] [place] [address] 09/21/2025 11:00 AM EST Appointment [facility] Prec[facility] Medicine [address] [phone] 10/05/2025 9:00 AM EST Office Visit [facility] [address], [address] [place] [address] Sanchez Zaldivar MD [address] [place] [phone] 10/05/2025 11:00 AM EST Consult [facility] [address], [address] [place] [phone] Shy Marquez APRN [address] [place] [address] documented as of this encounter Visit Diagnoses Diagnosis Glioblastoma multiforme (CMS/HCC)- Primary Malignant neoplasm of brain, unspecified site documented in this encounter Administered Medications Inactive Administered Medications - up to 3 most recent administrations Medication Order MAR Action Action Date Dose Rate Site RES - pembrolizumab or placebo (Keytruda) 200 mg in sodium chloride 0.9 % 100 mL IVPB 200 mg, Intravenous, at 276 mL/hr, Administer over 30 Minutes, Once, Administer over 25-40 minutes HAZARDOUS - Handle with care Attach a separate 0.2 micron, low protein binding filter. Infuse through dedicated line., On Sun07/01/25 at 1145, For 1 dose, NS 100mLIndications:Glioblastoma multiforme (CMS/HCC) New Bag 07/01/2025 11:56 AM EDT 200 mg 276 mL/hr documented in this encounter Additional Health Concerns Assessment Noted Time PHQ-9 Depression Total Score: 6 10/08/19 2:13 PM EST A fall risk assessment has been complete d for the patient 07/01/2025 11:19 AM EDT A Body Mass Index follow-up plan has been documented for the patient 06/08/2025 1:01 PM EDT documented as of this encounter Care Teams Commercial Account Officer Relationship Specialty Start Date End Date System, Provider Not In, [place] [address] PCP - General Family Medicine 03/23/25 Miguel Perez MD [address] [place] [address] [address] [place] [address] Consulting Physician Radiation Oncology 04/09/25 documented as of this encounter
--- OUTSIDE RECORDS SUMMARY | 2025-07-06 08:30 | XMS_ITS | Encounter Summary ---
Author Organization Healthcare Address [address] [place] [address] Care Team Providers Care Cotton Presser Name Role Phone System, Provider Not In MD Primary Care Provider Unavailable Miguel Perez MD Unavailable [phone] Encounter Details Date Type Department Care Team (Late st Contact Info) Description 07/06/2025 9:30 AM EDT Office Visit [place] [facility] [address], [address] [place] [address] Sanchez Zaldivar MD [address] [place] [address] Glioblastoma multiforme (CMS/HCC) (Primary Dx); [...] [facility] in the [facility], were you homeless or living in a chcf (including now)? No 03/23/2025 CAGE ASSESSMENT Answer [...] drink first t carroll in the morning (EYE-WIRE STRIPPING MACHINE OPERATOR) to steady your nerves or to get rid of a hangover? 0 03/20/2025 CAGE Questionnaire Score 0 025 Utilities Answer Date Recorded In the past 12 months has e [employer], gas, oil, or water [employer] threatened to shut off services in your [...] Service * Progress Notes - Yessenia Goel, JEFFREY, DNP - 07/06/2025 9:30 AM EDT We [...] a left insular mass after presenting to [facility] with neurologic symptoms. Patient proceeded to the [...] and treatment regimen as planned per Dr. Sebastian at this time. She will continue DVT care per Dr. Parnell recommendations. She has our contact information is free to reach out to us at any time with any concerns she may have. I saw this patient in conjunction with my attending, Dr. Zaldivar, at today's clinic appointment. Yessenia Goel APRN, DNP, CASINO DUTY MANAGER-C Deparment of Neurosurgery [facility] -- Sanchez Zaldivar MD, FAANS Rod Mill Tender Epilepsy Surgery, Neuro-Oncology & Skull Base, Pediatric Neurosurgery Director, Adult & Pediatric Epilepsy Surgery, Comprehensive Epilepsy Program Dept. of Neurological Surgery, [facility] ([facility]), [address], [place] [address] - Email: [email or web address] [[email or web address]] Family History Problem Relation Name Age of Onset Stroke Father 67 [2] Current Outpatient Medications Medication Sig Dispense Refill Acetaminophen Extra Strength 500 MG tablet TAKE TWO TABLETS BY MOUTH EVERY 6 HOURS NEEDED FOR PAIN 100 tablet 1 ascorbic acid (Vitamin C) 500 MG tablet Take 1 tablet by mouth daily. Ascorbic Acid 95586 MG/30ML solution Infuse 87.5 g into a [...] saw and evaluated the patient with the resident/fellow/IMPORTER OR EXPORTER. I discussed the case with the resident/fellow/IMPORTER OR EXPORTER and agree with the findings and plan as documented. documented in this encounter Plan of Treatment Upcoming Encounters Date Type Department Care Team ([facility] st Contact Info) Description 08/31/2025 8:15 AM EST Clinical Support [facility] [address] [facility], [address]nd [place] [address] 08/31/2025 8:30 AM EST Office Visit [facility] [address] [facility] [address] [place] [address] aGbe Cifuentes, IMPORTER OR EXPORTER 800 [facility] [address] [address] 08/31/2025 10:00 AM EST Appointment [facility] [address] [place] [address] 09/21/2025 9:15 AM EST Clinical Support [facility] [address] [facility] [address] [place] [address] 09/21/2025 9:30 AM EST Office Visit [facility] [address] [address] Gabe Cifuentes, IMPORTER OR EXPORTER [address] [address] 09/21/2025 11:00 AM EST Appointment [facility] Precision Medicine [address] [address] 10/05/2025 9:00 AM EST Office Visit [facility] [address], [address] [place] [address] Sanchez Zaldivar MD [address] [place] [address] 10/05/2025 11:00 AM EST Consult [facility] [address], [address] [place] [address] Shy Marquez APRN [address] [place] [address] documented as of this encounter Visit Diagnoses [...] documented as of this encounter Care Teams Cotton Presser Relationship Specialty Start Date End Date System, Provider Not In, [place] [address] PCP - General Family Medicine 03/23/25 Miguel Perez MD [address] [place] [address] [address] [place] [address] Consulting Physician Radiation Oncology 04/09/25 documented as of this encounter
--- OUTSIDE RECORDS SUMMARY | 2025-07-22 13:15 | XMS_ITS | Encounter Summary ---
Author Organization Healthcare Address [address] [place] [address] Care Team Providers Care Guide Changer Name Role Phone System, Provider Not In MD Primary Care Provider Unavailable Miguel Perez MD Unavailable [phone] Sherin Romero RN Unavailable Unavailable Reason for Visit * Reason Comments Labs Encounter Details Date Type Department Care Team (Latest Contact Info) Description 07/22/2025 1:15 PM EST Clinical Support [facility] [address] [place] [id number] Glioblastoma multiforme (CMS/HCC); Exam for clinical research [...] any time in the past 12 m [facility], were you homeless or living in a [...] drink first t carroll in the morning (EYE-HEALTH AND NUTRITION SPECIALIST) to steady your nerves or to get [...] [facility] [address] [facility] [address] [place] [address] 08/31/2025 8:30 AM EST Office Visit [facility] [address] [address] Gabe Cifuentes, INDUCTOR TESTER 800 [facility] [address] [address] 08/31/2025 10:00 AM EST Appointment [facility] [address] [place] [address] 09/21/2025 9:15 AM EST Clinical Support [facility] [address] [address] 09/21/2025 9:30 AM EST Office Visit [facility] [address] [address] Gabe Cifuentes, INDUCTOR TESTER [address] [address] 09/21/2025 11:00 AM EST Appointment [facility] [address] [place] [address] 10/05/2025 9:00 AM EST [facility] [address] [place] [address] Sanchez Zaldivar MD [address] [place] [address] 10/05/2025 11:00 AM EST Consult [place] [facility] [address] [place] [address] Shy Marquez, INDUCTOR TESTER [address] [place] [address] documented as of this encounter [...] LAB COAGULATION METHOD 07/22/2025 2:15 PM EST [facility] Blood Venous blood specimen / Unknown Venipuncture / Unknown 07/22/2025 1:31 PM EST 07/22/2025 1:56 PM EST us Chente Sebastian MD LAB BLOOD ORDERABLES Final Res ult [facility] [address] [place] [address] * (ABNORMAL) Prothrombin Time/INR (07/22/2025 1:31 PM EST) Prothrombin Time 15.2(H) 12.0 - 14.3 sec LAB COAGULATION METHOD 07/22/2025 2:15 PM EST [facility] INR 1.2(H) 0.9 - 1.1 LAB COAGULATION METHOD 07/22/2025 2:15 PM EST [facility] Blood Venous blood specimen / Unknown Venipuncture / Unknown 07/22/2025 1:31 PM EST 07/22/2025 1:56 PM EST [facility] - 07/22/2025 2:15 PM EST OPTIMAL INR RANGES FOR PATIENT ON ORAL ANTICOAGULANT THERAPY Prevention of venous thromboembolism INR 2.0 to 3.0 In patients with heart disease: Atrial fibrillation INR 2.0 to 3.0 Valvular heart disease INR 2.0 to 3.0 Tissue heart valves INR 2.0 to 3.0 Mechanical prosthetic valves INR 2.5 to 3.[address] INR 2.5 to 3.5 us Chente Sebastian MD LAB BLOOD ORDERABLES Final Res ult [facility] [address] [place] [address] * (ABNORMAL) Comprehensive metabolic panel (07/22/2025 1:31 PM EST) Glucose, Plasma 109(H) 74 - 99 mg/dL 07/22/2025 2:27 PM EST [facility] BUN, Plasma 16 8 - 23 mg/dL 07/22/2025 2:27 PM EST [facility] Creatinine, Plasma 0.66 0.60 - 1.10 mg/dL 07/22/2025 2:27 PM EST [facility] BUN/Creatinine Ratio 24 07/22/2025 2:27 PM EST [facility] Sodium, Plasma 140 136 - 145 mmol/L 07/22/2025 2:27 PM EST [facility] Potassium, Plasma 3.9 3.6 - 4.9 mmol/L 07/22/2025 2:27 PM EST [facility] Chloride, Plasma 103 97 - 107 mmol/L 07/22/2025 2:27 PM EST [facility] CO2, Plasma 24 22 - 29 mmol/L 07/22/2025 2:27 PM EST [facility] Anion Gap 13 6 - 16 mmol/L 07/22/2025 2:27 PM EST [facility] Total Calcium, Plasma 9.5 8.9 - 10.2 mg/dL 07/22/2025 2:27 PM EST [facility] Total Protein 7.1 6.3 - 7.9 g/dL 07/22/2025 2:27 PM EST [facility] Albumin, Plasma 4.4 3.5 - 5.2 g/dL 07/22/2025 2:27 PM EST [facility] AST, Plasma 16 10 - 35 U/L 07/22/2025 2:27 PM EST [facility] ALT, Plasma 17 10 - 35 U/L 07/22/2025 2:27 PM EST [facility] Alkaline Phosphatase, Plasma 82 46 - 142 U/L 07/22/2025 2:27 PM EST [facility] Total Bilirubin, Plasma 0.5 0.2 - 1.1 mg/dL 07/22/2025 2:27 PM EST [facility] eGFRcr 96.3 mL/min/1.7 3m*2 07/22/2025 2:27 PM EST [facility] Comment:Reported eGFRcr in m L/min/1.73m2 is based the CKD-EPI 2020 equation that does not use a race coefficient. Blood Venous blood specimen / Unknown Venipuncture / Unknown 07/22/2025 1:31 PM EST 07/22/2025 1:56 PM EST us Chente Sebastian MD LAB BLOOD ORDERABLES Final Res ult [facility] [address] [place] [address] * (ABNORMAL) CBC and differential (07/22/2025 1:31 PM EST) WBC Count 5.79 3.70 - 10.30 10*3/uL LAB HEMATOLOGY METHOD 07/22/2025 2:05 PM EST [facility] RBC Count 4.87 3.90 - 5.20 10*6/uL LAB HEMATOLOGY METHOD 07/22/2025 2:05 PM EST [facility] HGB 13.2 11.2 - 15.7 g/dL LAB HEMATOLOGY METHOD 07/22/2025 2:05 PM EST [facility] HCT 41.4 34.0 - 45.0 % LAB HEMATOLOGY METHOD 07/22/2025 2:05 PM [facility] Platelet Count 266 155 - 369 10*3/uL LAB HEMATOLOGY METHOD 07/22/2025 2:05 PM [facility] MCV 85 79 - 98 fL LAB HEMATOLOGY METHOD 07/22/2025 2:05 PM [facility] MCH 27.1 26.0 - 32.0 pg LAB HEMATOLOGY METHOD 07/22/2025 2:05 PM [facility] MCHC 31.9 30.7 - 35.5 g/dL LAB HEMATOLOGY METHOD 07/22/2025 2:05 PM [facility] RDW 14.5 11.5 - 14.5 % LAB HEMATOLOGY METHOD 07/22/2025 2:05 PM [facility] MPV 10.2 8.8 - 12.5 fL LAB HEMATOLOGY METHOD 07/22/2025 2:05 PM [facility] nRBC 0.0 <=0.0 per 100 WBCs LAB HEMATOLOGY METHOD 07/22/2025 2:05 PM [facility] Differential Type Automated LAB HEMATOLOGY METHOD 07/22/2025 2:05 PM [facility] Neutrophils % 70 % LAB HEMATOLOGY METHOD 07/22/2025 2:05 PM [facility] Lymphocytes % 18 % LAB HEMATOLOGY METHOD 07/22/2025 2:05 PM [facility] Monocytes % 9 % LAB HEMATOLOGY METHOD 07/22/2025 2:05 PM [facility] Eosinophils % 3 % LAB HEMATOLOGY METHOD 07/22/2025 2:05 PM [facility] Basophils % 0 % LAB HEMATOLOGY METHOD 07/22/2025 2:05 PM [facility] Immature Granulocytes % 0 % LAB HEMATOLOGY METHOD 07/22/2025 2:05 PM [facility] Neutrophils Absolute 4.05 1.60 - 6.10 10*3/uL LAB HEMATOLOGY METHOD 07/22/2025 2:05 PM [facility] Lymphocytes Absolute 1.05(L) 1.20 - 3.90 10*3/uL LAB HEMATOLOGY METHOD 07/22/2025 2:05 PM [facility] Monocytes Absolute 0.50 0.30 - 0.90 10*3/uL LAB HEMATOLOGY METHOD 07/22/2025 2:05 PM EST [facility] Eosinophils Absolute 0.16 0.00 - 0.50 10*3/uL LAB HEMATOLOGY METHOD 07/22/2025 2:05 PM EST [facility] Basophils Absolute 0.01 0.00 - 0.10 10*3/uL LAB HEMATOLOGY METHOD 07/22/2025 2:05 PM EST [facility] Immature Granulocytes Absolute 0.02 0.00 - 0.06 10*3/uL LAB HEMATOLOGY METHOD 07/22/2025 2:05 PM EST [facility] Blood Venous blood specimen / Unknown Venipuncture / Unknown 07/22/2025 1:31 PM EST 07/22/2025 1:56 PM EST Narrative [facility] - 07/22/2025 2:05 PM EST Therapeutic decision making should be based on absolute values, rather than percentages. us Chente Sebastian MD LAB BLOOD ORDERABLES Final Res ult [address] [address] documented in this encounter Visit Diagnoses Diagnosis [...] documented as of this encounter Care Teams Guide Changer Relationship Specialty Start Date End Date System, Provider Not In, [address] [place] [id number] PCP - General Family Medicine 03/23/25 Miguel Perez MD [address] [place] [phone] Consulting Physician Radiation Oncology 04/09/25 Sherin Romero, RN None None Registered Nurse Medical Oncology 07/20/25 documented as of this encounter
--- OUTSIDE RECORDS SUMMARY | 2025-07-22 13:30 | XMS_ITS | Encounter Summary ---
Author Organization Healthcare Address [address] [place] [address] Care Team Providers Care Licensed Loan Officer Name Role Phone System, Provider Not In MD Primary Care Provider Unavailable Miguel Perez MD Unavailable [phone] Sherin Romero RN Unavailable Unavailable Reason for Visit * Reason Comments Follow-up Encounter Details Date Type Department Care Team (Late st Contact Info) Description 07/22/2025 1:30 PM EST Office Visit [facility] [address] , [address] [place] [address] Gabe Cifuentes, MANAGER TRACK 800 [facility] [address] [place] [address] Glioblastoma multiforme (CMS/HCC) (Primary Dx); Acute saddle [...] in the past 12 m [facility], were you homeless or living in a [place] [facility] facility (including now)? No 03/23/2025 CAGE ASSESSMENT Answer [...] drink first t carroll in the morning (EYE-ACQUISITION SPECIALIST) to steady your nerves or to [...] Notes * Progress Notes - Gabe Cifuentes, JEFFREY - 07/22/2025 1:30 PM EST NEURO ONCOLOGY [...] [facility] 800 [facility] [address] No referring provider defined for this encounter [...] Perez MD on 04/02/2025 Study Patient: Yes [id number]: A Phase 3, Randomized, Double-Blind, Placebo-Controlled Study [...] per GBM-16. TMZ maintenance supply received from [employer] [facility] for start of Cycle 1, scheduled for 06/08/25. Labs have been reviewed and are appropriate for treatment on 06/08. 07/01/25: Patient tolerated first adjuvant TMZ maintenance cycle. Labs have been reviewed and are appropriate for next cycle. Will increase TMZ to 200 mg/m2/dose with cycle 2 forward. Updated prescription sent to [facility] today. Labs appropriate for infusion [...] No dose adjustments made Rx sent to: [facility] Refills due: if continued beyond [...] [facility] 800 [facility] [address] [place] [address] 08/31/2025 8:30 AM EST Office Visit [facility] [address] [address] Gabe Cifuentes, MANAGER TRACK [address] [address] 08/31/2025 10:00 AM EST Appointment [facility] [address] [place] [address] 09/21/2025 9:15 AM EST Clinical Support [facility] [address] [address] 09/21/2025 9:30 AM EST Office Visit [facility] [address] [address] Gabe Cifuentes, MANAGER TRACK [address] [address] 09/21/2025 11:00 AM EST Appointment [facility] 800 [place] [address] 10/05/2025 9:00 AM EST Office Visit [facility] [address], [address] [place] [phone] Sanchez Zaldivar MD [address] [facility] [address] [place] [address] 10/05/2025 11:00 AM EST Consult [place] [facility] [address], [address] [place] [address] JimmyShy, MANAGER TRACK [address] [place] [address] documented as of this encounter Results * T4, free (08/10/2025 2:20 PM EST) Free T4, Plasma 1.2 0.8 - 1.7 ng/dL 08/10/2025 3:12 PM EST [facility] Blood Venous blood specimen / Unknown Venipuncture / Unknown 08/10/2025 2:20 PM EST 08/10/2025 2:35 PM EST Chente Sebastian MD LAB BLOOD ORDERABLES Final Res ult Performing Organization Address City/[facility]/ZIP Co de Phone Number [facility] [address] [place] [address] * T3, Serum (08/10/2025 2:20 PM EST) T3, Serum 105 87 - 187 ng/dL 08/10/2025 3:12 PM EST [facility] Blood Venous blood specimen / Unknown Venipuncture / Unknown 08/10/2025 2:20 PM EST 08/10/2025 2:35 PM EST Chente Sebastian MD LAB BLOOD ORDERABLES Final Res ult [facility] [address] [place] [address] * TSH (08/10/2025 2:20 PM EST) Thyroid Stimulating Hormone, Plasma 2.20 0.40 - 4.20 uIU/mL 08/10/2025 3:12 PM EST [facility] Blood Venous blood specimen / Unknown Venipuncture / Unknown 08/10/2025 2:20 PM EST 08/10/2025 2:35 PM EST us Chente Sebastian MD LAB BLOOD ORDERABLES Final Res ult [facility] [address] [place] [address] * (ABNORMAL) Comprehensive metabolic panel (08/10/2025 2:20 PM EST) Glucose, Plasma 128(H) 74 - 99 mg/dL 08/10/2025 3:12 PM EST [facility] BUN, Plasma 12 8 - 23 mg/dL 08/10/2025 3:12 PM EST [facility] Creatinine, Plasma 0.65 0.60 - 1.10 mg/dL 08/10/2025 3:12 PM EST [facility] BUN/Creatinine Ratio 18 08/10/2025 3:12 PM EST [facility] Sodium, Plasma 140 136 - 145 mmol/L 08/10/2025 3:12 PM EST [facility] Potassium, Plasma 3.5(L) 3.6 - 4.9 mmol/L 08/10/2025 3:12 PM EST [facility] Chloride, Plasma 103 97 - 107 mmol/L 08/10/2025 3:12 PM EST [facility] CO2, Plasma 27 22 - 29 mmol/L 08/10/2025 3:12 PM EST [facility] Anion Gap 10 6 - 16 mmol/L 08/10/2025 3:12 PM EST [facility] Total Calcium, Plasma 9.3 8.9 - 10.2 mg/dL 08/10/2025 3:12 PM EST [facility] Total Protein 6.8 6.3 - 7.9 g/dL 08/10/2025 3:12 PM EST [facility] Albumin, Plasma 4.0 3.5 - 5.2 g/dL 08/10/2025 3:12 PM EST [facility] AST, Plasma 14 10 - 35 U/L 08/10/2025 3:12 PM EST [facility] ALT, Plasma 15 10 - 35 U/L 08/10/2025 3:12 PM EST [facility] Alkaline Phosphatase, Plasma 68 46 - 142 U/L 08/10/2025 3:12 PM EST [facility] Total Bilirubin, Plasma 0.3 0.2 - 1.1 mg/dL 08/10/2025 3:12 PM EST [facility] eGFRcr 96.6 mL/min/1.7 3m*2 08/10/2025 3:12 PM EST [facility] Comment:Reported eGFRcr in m L/min/1.73m2 is based the CKD-EPI 2020 equation that does not use a race coefficient. Blood Venous blood specimen / Unknown Venipuncture / Unknown 08/10/2025 2:20 PM EST 08/10/2025 2:35 PM EST us Chente Sebastian MD LAB BLOOD ORDERABLES Final Res ult [facility] [address] [place] [address] * (ABNORMAL) CBC and differential (08/10/2025 2:20 PM EST) WBC Count 4.89 3.70 - 10.30 10*3/uL LAB HEMATOLOGY METHOD 08/10/2025 2:49 PM EST [facility] RBC Count 4.65 3.90 - 5.20 10*6/uL LAB HEMATOLOGY METHOD 08/10/2025 2:49 PM EST [facility] HGB 12.8 11.2 - 15.7 g/dL LAB HEMATOLOGY METHOD 08/10/2025 2:49 PM EST [facility] HCT 39.0 34.0 - 45.0 % LAB HEMATOLOGY METHOD 08/10/2025 2:49 PM EST [facility] Platelet Count 259 155 - 369 10*3/uL LAB HEMATOLOGY METHOD 08/10/2025 2:49 PM EST [facility] MCV 84 79 - 98 fL LAB HEMATOLOGY METHOD 08/10/2025 2:49 PM EST [facility] MCH 27.5 26.0 - 32.0 pg LAB HEMATOLOGY METHOD 08/10/2025 2:49 PM EST [facility] MCHC 32.8 30.7 - 35.5 g/dL LAB HEMATOLOGY METHOD 08/10/2025 2:49 PM EST [facility] RDW 14.2 11.5 - 14.5 % LAB HEMATOLOGY METHOD 08/10/2025 2:49 PM [facility] MPV 9.9 8.8 - 12.5 fL LAB HEMATOLOGY METHOD 08/10/2025 2:49 PM [facility] nRBC 0.0 <=0.0 per 100 WBCs LAB HEMATOLOGY METHOD 08/10/2025 2:49 PM [facility] Differential Type Automated LAB HEMATOLOGY METHOD 08/10/2025 2:49 PM [facility] Neutrophils % 75 % LAB HEMATOLOGY METHOD 08/10/2025 2:49 PM [facility] Lymphocytes % 14 % LAB HEMATOLOGY METHOD 08/10/2025 2:49 PM [facility] Monocytes % 9 % LAB HEMATOLOGY METHOD 08/10/2025 2:49 PM [facility] Eosinophils % 2 % LAB HEMATOLOGY METHOD 08/10/2025 2:49 PM [facility] Basophils % 0 % LAB HEMATOLOGY METHOD 08/10/2025 2:49 PM [facility] Immature Granulocytes % 0 % LAB HEMATOLOGY METHOD 08/10/2025 2:49 PM [facility] Neutrophils Absolute 3.59 1.60 - 6.10 10*3/uL LAB HEMATOLOGY METHOD 08/10/2025 2:49 PM [facility] Lymphocytes Absolute 0.69(L) 1.20 - 3.90 10*3/uL LAB HEMATOLOGY METHOD 08/10/2025 2:49 PM [facility] Monocytes Absolute 0.46 0.30 - 0.90 10*3/uL LAB HEMATOLOGY METHOD 08/10/2025 2:49 PM [facility] Eosinophils Absolute 0.11 0.00 - 0.50 10*3/uL LAB HEMATOLOGY METHOD 08/10/2025 2:49 PM [facility] Basophils Absolute 0.02 0.00 - 0.10 10*3/uL LAB HEMATOLOGY METHOD 08/10/2025 2:49 PM [facility] Immature Granulocytes Absolute 0.02 0.00 - 0.06 10*3/uL LAB HEMATOLOGY METHOD 08/10/2025 2:49 PM [facility] Blood Venous blood specimen / Unknown Venipuncture / Unknown 08/10/2025 2:20 PM EST 08/10/2025 2:39 PM EST Narrative [facility] - 08/10/2025 2:49 PM EST Therapeutic decision making should be based on absolute values, rather than percentages. us Chente Sebastian MD LAB BLOOD ORDERABLES Final Res ult [facility] [address] [place] [address] documented in this encounter Visit Diagnoses Diagnosis [...] documented as of this encounter Care Teams Licensed Loan Officer Relationship Specialty Start Date End Date System, Provider Not In, [address] [place] [id number] PCP - General Family Medicine 03/23/25 Miguel Perez MD [address] [place] [address] [address] [place] [address] Consulting Physician Radiation Oncology 04/09/25 Sherin Romero, RN None None Registered Nurse Medical Oncology 07/20/25 documented as of this encounter
--- OUTSIDE RECORDS SUMMARY | 2025-07-22 14:10 | XMS_ITS | Encounter Summary ---
Author Organization Healthcare Address [address] [place] [address] Care Team Providers Care Pastor Name Role Phone System, Provider Not In MD Primary Care Provider Unavailable Miguel Perez MD Unavailable [phone] Sherin Romero RN Unavailable Unavailable Reason for Visit * Episode Based Medications (Routine) - Authorized Specialty Diagnoses / Procedures Referred By Génesis t Referred To Contact Diagnoses Glioblastoma multiforme (CMS/HCC) Procedures [id number]: Pembrolizumab or Placebo + Optune Every 21 Days / Temozolomide Every 28 Days Chente Sebastian MD 800 [facility] Liy[address] Conde [address] [address] Phone: tel: fax: Chente Sebastian MD 800 [facility] [address] Conde [address] [address] Phone: tel: fax: Referral ID Status Reason Start Date Expiration Date V isits Requested Visits Authorized [id number] Authorized 05/29/2025 11/28/2026 1 1 Encounter Details Date Type Department Care Team (Latest Contact Info) Description 07/22/2025 2:10 PM EST - 07/22/2025 11:59 PM [facility] Hospital Encounter [facility] 800 [place] [phone] Glioblastoma multiforme (CMS/HCC) (Primary Dx) Discharge Disposition: [...] in the past 12 m [facility], were you homeless or [...] drink first t carroll in the morning (EYE-SEA AIR LAND OFFICER) to steady your nerves or to get [...] tablet by mouth daily. 06/01/2025 Ascorbic Acid 87938 MG/30ML solution Infuse 87.5 g into a [...] [facility] [address] [address] 08/31/2025 8:30 AM EST Office Visit [facility] [address] [address] Gabe Cifuentes, FEDERAL APPELLATE LAW CLERK 800 [facility] [address] [place] [address] 08/31/2025 10:00 AM EST Appointment [facility] 800 [place] [address] 09/21/2025 9:15 AM EST Clinical Support [facility] [address] [address] 09/21/2025 9:30 AM EST Office Visit [facility] [address] [address] Gabe Cifuentes, FEDERAL APPELLATE LAW CLERK 800 [facility] [address] [place] [address] 09/21/2025 11:00 AM EST Appointment [facility] 800 [place] [address] 10/05/2025 9:00 AM EST Office Visit [facility] [address], [facility] [place] [address] Sanchez Zaldivar MD [address] [place] [address] 10/05/2025 11:00 AM EST Consult [facility] [address], [facility] [place] [address] Shy Marquez, FEDERAL APPELLATE LAW CLERK [address] [place] [address] documented as of this encounter [...] documented as of this encounter Care Teams Pastor Relationship Specialty Start Date End Date System, Provider Not In, [place] [address] PCP - General Family Medicine 03/23/25 Miguel Perez MD [address] [place] [address] [address] [place] [address] Consulting Physician Radiation Oncology 04/09/25 Sherin Romero, RN None None Registered Nurse Medical Oncology 07/20/25 documented as of this encounter
--- OUTSIDE RECORDS SUMMARY | 2025-08-10 | XMS_ITS | Encounter Summary ---
Author Organization Healthcare Address [address] [place] [address] Care Team Providers Care Salesperson Driver Name Role Phone System, Provider Not In MD Primary Care Provider Unavailable Miguel Perez MD Unavailable [phone] Sherin Romero RN Unavailable Unavailable Encounter Details Date Type Department Care Team (Latest Contact Info) Description 08/10/2025 - 08/10/2025 7:55 AM [facility] Hospital Encounter Image Record Center [address] [place] [address] Glioblastoma multiforme (CMS/HCC); Exam for clinical research [...] any time in the past 12 m [facility], were you homeless or living in a [...] drink first t carroll in the morning (EYE-HIGH LIFT OPERATOR) to steady your nerves or to [...] tablet by mouth daily. 06/01/2025 Ascorbic Acid 48946 MG/30ML solution Infuse 87.5 g into a [...] [facility] [address] [address] 08/31/2025 8:30 AM EST Office Visit [facility] [address] [address] Gabe Cifuentes, WAREHOUSE ADMINISTRATOR [address] [address] 08/31/2025 10:00 AM EST Appointment [facility] [address] [place] [address] 09/21/2025 9:15 AM EST Clinical Support [facility] [address] [address] 09/21/2025 9:30 AM EST Office Visit [facility] [address] [address] Gabe Cifuentes, WAREHOUSE ADMINISTRATOR [address] [address] 09/21/2025 11:00 AM EST Appointment [facility] 800 [place] [address] 10/05/2025 9:00 AM EST Office Visit [facility] [address], 1st [place] [address] Sanchez Zaldivar MD [address] [place] [address] 10/05/2025 11:00 AM EST Consult [place] [facility] [address], [address] [place] [address] KrystalShy brice, WAREHOUSE ADMINISTRATOR [address] [place] [address] documented as of this encounter [...] Research Study Name: GBM-16 Name of the Community Health Director: Dr. Chente Sebastian Correspondence email: [email or web address] Was this trial started before Sep 10, 2022? [facility] Manual release only [2] Reason for preventing [...] documented as of this encounter Care Teams Salesperson Driver Relationship Specialty Start Date End Date System, Provider Not In, [address] [place] [address] PCP - General Family Medicine 03/23/25 Miguel Perez MD [address] [place] [address] [address] [place] [address] Consulting Physician Radiation Oncology 04/09/25 Sherin Romero RN None None Registered Nurse Medical Oncology 07/20/25 documented as of this encounter
--- OUTSIDE RECORDS SUMMARY | 2025-08-10 07:56 | XMS_ITS | Encounter Summary ---
Author Organization Healthcare Address [address] [place] [address] Care Team Providers Care Storage Worker Name Role Phone System, Provider Not In MD Primary Care Provider Unavailable Miguel Perez MD Unavailable [phone] Sherin Romero RN Unavailable Unavailable Reason for Referral * Imaging (Routine) - Closed Specialty Diagnoses / Procedures Referred By Contac t Referred To Contact Radiology Diagnoses Brain mass Glioblastoma multiforme (CMS/HCC) Procedures MR Head w and wo IV Contrast Olivia Etienne APRN, DNP [address] [address] Phone: tel: fax: Referral ID Status Reason Start Date Expiration Date Visits Re quested Visits Authorized [id number] Closed 06/05/2025 12/05/2026 1 1 Reason for Visit * Imaging (Routine) - Closed Specialty Diagnoses / Procedures Referred By Contac t Referred To Contact Radiology Diagnoses Brain mass Glioblastoma multiforme (CMS/HCC) Procedures MR Head w and wo IV Contrast Olivia Etienne APRN, DNP [address] [address] Phone: tel: fax: Referral ID Status Reason Start Date Expiration Date Visits Re quested Visits Authorized [id number] Closed 06/05/2025 12/05/2026 1 1 Encounter Details Date Type Department Care Team (Latest Contact Info) Description 08/10/2025 7:56 AM EST - 08/10/2025 2:59 PM EST Hospital Encounter [facility] [address] [place] [address] Brain mass; Glioblastoma multiforme (CMS/HCC) Discharge Disposition: [...] time in the past 12 m [facility], were you homeless or living in a senior care (including now)? No 03/23/2025 CAGE ASSESSMENT Answer [...] drink first t carroll in the morning (EYE-COVERAGE ANALYST) to steady your nerves or to get [...] tablet by mouth daily. 06/01/2025 Ascorbic Acid 59577 MG/30ML solution Infuse 87.5 g into a [...] [facility] 800 [facility], 2nd [place] [address] 08/31/2025 8:30 AM EST Office Visit [facility] 800 [facility], 2nd [place] [address] Gabe Cifuentes, GEOGRAPHY INSTRUCTOR 800 [facility] [address] [place] [address] 08/31/2025 10:00 AM EST Appointment [facility] Prec[facility] 800 [place] [address] 09/21/2025 9:15 AM EST Clinical Support [facility] 800 [facility], 2nd [place] [address] 09/21/2025 9:30 AM EST Office Visit [facility] 800 [facility], [address] [place] [phone] Gabe Cifuentes, GEOGRAPHY INSTRUCTOR 800 [facility] Amaya [facility] [address] [place] [address] 09/21/2025 11:00 AM EST Appointment [facility] Prec[facility] 800 [place] [phone] 10/05/2025 9:00 AM EST Office Visit [facility] [address], [address] [place] [address] Sanchez Zaldivar MD [address] [place] [address] 10/05/2025 11:00 AM EST Consult [facility] [address], [address] [place] [address] Shy Marquez, GEOGRAPHY INSTRUCTOR [address] [place] [address] documented as of this encounter [...] error, please notify the sender immediately at [phone] and permanently delete the original report and destroy any copies or printouts. Narrative 08/11/2025 7:33 AM EST [facility] - Phone Outpatient NAME: Herminia Murrell DATE OF EXAM: 08/10/2025 Patient No: [id number] Physician: Lowell^Olivia^Bethanie Date of : 1960 Past Medical/Surgical History (entered by technologist): Symptoms/Reason For Exam (entered by technologist): Brain/SENIOR PARALEGAL neoplasm, assess treatment response Tech Notes (entered [...] Murrell DATE OF EXAM: 08/10/2025 Patient No: [id number] Physician: Lowell^Olivia^Bethanie Date of : 1960 Past Medical/Surgical History (entered by technologist): Symptoms/Reason For Exam (entered by technologist): Brain/SENIOR PARALEGAL neoplasm,assess treatment response Tech Notes (entered by [...] in error, pleasenotify the sender immediately at [phone] and permanently delete theoriginal report and destroy any copies or printouts. Olivia Etienne APRN, [facility] IM MRI PROCEDURES Final Result documented in this [...] documented as of this encounter Care Teams Storage Worker Relationship Specialty Start Date End Date System, Provider Not In, 800 [place] [address] PCP - General Family Medicine 03/23/25 Miguel Perez MD [address] [place] [address] [address] [place] [address] Consulting Physician Radiation Oncology 04/09/25 Sherin Romero, SKY None None Registered Nurse Medical Oncology 07/20/25 documented as of this encounter
--- OUTSIDE RECORDS SUMMARY | 2025-08-10 13:45 | XMS_ITS | Encounter Summary ---
Author Organization Healthcare Address [address] [place] [address] Care Team Providers Care Carbon Dioxide Operator Name Role Phone System, Provider Not In MD Primary Care Provider Unavailable Miguel Perez MD Unavailable [phone] Sherin Romero RN Unavailable Unavailable Reason for Visit * Reason Comments Labs Encounter Details Date Type Department Care Team (Latest Contact Info) Description 08/10/2025 1:45 PM EST Clinical Support [facility] [address], 2nd [place] [phone] Glioblastoma multiforme (CMS/HCC); Exam for clinical research [...] were you homeless or living in a penitentiary (including now)? No 03/23/2025 CAGE ASSESSMENT Answer [...] drink first t carroll in the morning (EYE-DIGITAL MARKETER) to steady your nerves or to get [...] Head, Neck & Respiratory 800 [facility] [address]nd [place] [address] 08/31/2025 8:30 AM EST Office Visit [facility] [address] [address] Gabe Cifuentes, CHEESE SUPERVISOR 800 [facility] [address] [address] 08/31/2025 10:00 AM EST Appointment [facility] 800 [place] [address] 09/21/2025 9:15 AM EST Clinical Support [facility] [address] [address] 09/21/2025 9:30 AM EST Office Visit [facility] [address] [address] Gabe Cifuentes, CHEESE SUPERVISOR [address] [address] 09/21/2025 11:00 AM EST Appointment [facility] 800 [place] [address] 10/05/2025 9:00 AM EST [facility] [address], 1st [place] [address] Sanchez Zaldivar MD [address] [place] [address] 10/05/2025 11:00 AM EST Consult [place] [facility] [address], 1st [place] [address] Shy Marquez, CHEESE SUPERVISOR [address] [place] [address] documented as of this encounter Procedures Procedure [...] LAB COAGULATION METHOD 08/10/2025 3:07 PM EST [facility] INR 1.2(H) 0.9 - 1.1 LAB COAGULATION METHOD 08/10/2025 3:07 PM EST [facility] Blood Venous blood specimen / Unknown Venipuncture / Unknown 08/10/2025 2:20 PM EST 08/10/2025 2:35 PM EST Narrative [facility] - 08/10/2025 3:07 PM EST OPTIMAL INR RANGES FOR PATIENT ON ORAL ANTICOAGULANT THERAPY Prevention of venous thromboembolism INR 2.0 to 3.0 In patients with heart disease: Atrial fibrillation INR 2.0 to 3.0 Valvular heart disease INR 2.0 to 3.0 Tissue heart valves INR 2.0 to 3.0 Mechanical prosthetic valves INR 2.5 to 3.5 Prevention of recurrent [place] INR 2.5 to 3.5 us Chente Sebastian MD LAB BLOOD ORDERABLES Final Res ult Performing Organization Address City/[facility]/ZIP Co de Phone Number [facility] [address] [place] [address] * APTT (08/10/2025 2:20 PM EST) aPTT 27 25 - 35 sec LAB COAGULATION METHOD 08/10/2025 3:07 PM EST [facility] Blood Venous blood specimen / Unknown Venipuncture / Unknown 08/10/2025 2:20 PM EST 08/10/2025 2:35 PM EST us Chente Sebastian MD LAB BLOOD ORDERABLES Final Res ult Performing Organization Address [facility] Co de Phone Number [facility] [address] [place] [address] * (ABNORMAL) CBC and differential (08/10/2025 2:20 PM EST) WBC Count 4.89 3.70 - 10.30 10*3/uL LAB HEMATOLOGY METHOD 08/10/2025 2:49 PM EST [facility] RBC Count 4.65 3.90 - 5.20 10*6/uL LAB HEMATOLOGY METHOD 08/10/2025 2:49 PM EST [facility] HGB 12.8 11.2 - 15.7 g/dL LAB HEMATOLOGY METHOD 08/10/2025 2:49 PM EST [facility] HCT 39.0 34.0 - 45.0 % LAB HEMATOLOGY METHOD 08/10/2025 2:49 PM EST [facility] Platelet Count 259 155 - 369 10*3/uL LAB HEMATOLOGY METHOD 08/10/2025 2:49 PM [facility] MCV 84 79 - 98 fL LAB HEMATOLOGY METHOD 08/10/2025 2:49 PM [facility] MCH 27.5 26.0 - 32.0 pg LAB HEMATOLOGY METHOD 08/10/2025 2:49 PM [facility] MCHC 32.8 30.7 - 35.5 g/dL LAB HEMATOLOGY METHOD 08/10/2025 2:49 PM [facility] RDW 14.2 11.5 - 14.5 % LAB HEMATOLOGY METHOD 08/10/2025 2:49 PM [facility] MPV 9.9 8.8 - 12.5 fL LAB HEMATOLOGY METHOD 08/10/2025 2:49 PM [facility] nRBC 0.0 <=0.0 per 100 WBCs LAB HEMATOLOGY METHOD 08/10/2025 2:49 PM [facility] Differential Type Automated LAB HEMATOLOGY METHOD 08/10/2025 2:49 PM [facility] Neutrophils % 75 % LAB HEMATOLOGY METHOD 08/10/2025 2:49 PM [facility] Lymphocytes % 14 % LAB HEMATOLOGY METHOD 08/10/2025 2:49 PM [facility] Monocytes % 9 % LAB HEMATOLOGY METHOD 08/10/2025 2:49 PM [facility] Eosinophils % 2 % LAB HEMATOLOGY METHOD 08/10/2025 2:49 PM [facility] Basophils % 0 % LAB HEMATOLOGY METHOD 08/10/2025 2:49 PM [facility] Immature Granulocytes % 0 % LAB HEMATOLOGY METHOD 08/10/2025 2:49 PM [facility] Neutrophils Absolute 3.59 1.60 - 6.10 10*3/uL LAB HEMATOLOGY METHOD 08/10/2025 2:49 PM [facility] Lymphocytes Absolute 0.69(L) 1.20 - 3.90 10*3/uL LAB HEMATOLOGY METHOD 08/10/2025 2:49 PM [facility] Monocytes Absolute 0.46 0.30 - 0.90 10*3/uL LAB HEMATOLOGY METHOD 08/10/2025 2:49 PM [facility] Eosinophils Absolute 0.11 0.00 - 0.50 10*3/uL LAB HEMATOLOGY METHOD 08/10/2025 2:49 PM [facility] Basophils Absolute 0.02 0.00 - 0.10 10*3/uL LAB HEMATOLOGY METHOD 08/10/2025 2:49 PM EST [facility] Immature Granulocytes Absolute 0.02 0.00 - 0.06 10*3/uL LAB HEMATOLOGY METHOD 08/10/2025 2:49 PM EST [facility] Blood Venous blood specimen / Unknown Venipuncture / Unknown 08/10/2025 2:20 PM EST 08/10/2025 2:39 PM EST Narrative [facility] - 08/10/2025 2:49 PM EST Therapeutic decision making should be based on absolute values, rather than percentages. us Chente Sebastian MD LAB BLOOD ORDERABLES Final Res ult [facility] [address] [place] [address] * (ABNORMAL) Comprehensive metabolic panel (08/10/2025 2:20 PM EST) Glucose, Plasma 128(H) 74 - 99 mg/dL 08/10/2025 3:12 PM EST [facility] BUN, Plasma 12 8 - 23 mg/dL 08/10/2025 3:12 PM EST [facility] Creatinine, Plasma 0.65 0.60 - 1.10 mg/dL 08/10/2025 3:12 PM EST [facility] BUN/Creatinine Ratio 18 08/10/2025 3:12 PM EST [facility] Sodium, Plasma 140 136 - 145 mmol/L 08/10/2025 3:12 PM EST [facility] Potassium, Plasma 3.5(L) 3.6 - 4.9 mmol/L 08/10/2025 3:12 PM EST [facility] Chloride, Plasma 103 97 - 107 mmol/L 08/10/2025 3:12 PM EST [facility] CO2, Plasma 27 22 - 29 mmol/L 08/10/2025 3:12 PM EST [facility] Anion Gap 10 6 - 16 mmol/L 08/10/2025 3:12 PM EST [facility] Total Calcium, Plasma 9.3 8.9 - 10.2 mg/dL 08/10/2025 3:12 PM EST [facility] Total Protein 6.8 6.3 - 7.9 g/dL 08/10/2025 3:12 PM EST [facility] Albumin, Plasma 4.0 3.5 - 5.2 g/dL 08/10/2025 3:12 PM EST [facility] AST, Plasma 14 10 - 35 U/L 08/10/2025 3:12 PM EST [facility] ALT, Plasma 15 10 - 35 U/L 08/10/2025 3:12 PM EST [facility] Alkaline Phosphatase, Plasma 68 46 - 142 U/L 08/10/2025 3:12 PM EST [facility] Total Bilirubin, Plasma 0.3 0.2 - 1.1 mg/dL 08/10/2025 3:12 PM EST [facility] eGFRcr 96.6 mL/min/1.7 3m*2 08/10/2025 3:12 PM EST [facility] Comment:Reported eGFRcr in m L/min/1.73m2 is based the CKD-EPI 2020 equation that does not use a race coefficient. Blood Venous blood specimen / Unknown Venipuncture / Unknown 08/10/2025 2:20 PM EST 08/10/2025 2:35 PM EST us Chente Sebastian MD LAB BLOOD ORDERABLES Final Res ult [facility] [address] [place] [address] * TSH (08/10/2025 2:20 PM EST) Thyroid Stimulating Hormone, Plasma 2.20 0.40 - 4.20 uIU/mL 08/10/2025 3:12 PM EST [facility] Blood Venous blood specimen / Unknown Venipuncture / Unknown 08/10/2025 2:20 PM EST 08/10/2025 2:35 PM EST us Chente Sebastian MD LAB BLOOD ORDERABLES Final Res ult [facility] [address] [place] [address] * T3, Serum (08/10/2025 2:20 PM EST) T3, Serum 105 87 - 187 ng/dL 08/10/2025 3:12 PM EST [facility] Blood Venous blood specimen / Unknown Venipuncture / Unknown 08/10/2025 2:20 PM EST 08/10/2025 2:35 PM EST Chente Sebastian MD LAB BLOOD ORDERABLES Final Res ult [address] [address] * T4, free (08/10/2025 2:20 PM EST) Free T4, Plasma 1.2 0.8 - 1.7 ng/dL 08/10/2025 3:12 PM EST [facility] Blood Venous blood specimen / Unknown Venipuncture / Unknown 08/10/2025 2:20 PM EST 08/10/2025 2:35 PM EST Chente Sebastian MD LAB BLOOD ORDERABLES Final Res ult [address] [address] documented in this encounter Visit Diagnoses Diagnosis [...] documented as of this encounter Care Teams Carbon Dioxide Operator Relationship Specialty Start Date End Date System, Provider Not In, [address] [place] [id number] PCP - General Family Medicine 03/23/25 Miguel Perez MD [address] [place] [phone] Consulting Physician Radiation Oncology 04/09/25 Sherin Romero, RN None None Registered Nurse Medical Oncology 07/20/25 documented as of this encounter
--- OUTSIDE RECORDS SUMMARY | 2025-08-10 14:20 | XMS_ITS | Encounter Summary ---
Author Organization [facility] Address [address] [place] [address] Care Team Providers Care Oil Seal Assembler Name Role Phone System, Provider Not In MD Primary Care Provider Unavailable Miguel Perez MD Unavailable [phone] Sherin Romero RN Unavailable Unavailable Reason for Visit * Reason Comments Follow-up Encounter Details Date Type Department Care Team (Late st Contact Info) Description 08/10/2025 2:20 PM EST Office Visit [facility] Res[facility] [address] [facility], [address] [place] [address] Chente Sebastian MD 800 [facility] [address] [place] [address] Glioblastoma multiforme (CMS/HCC) (Primary Dx); Research study [...] drink first t carroll in the morning (EYE-LARD TUB WASHER) to steady your nerves or to get [...] [facility] 800 [facility] [phone] No referring provider defined for this encounter [...] Perez MD on 04/02/2025 Study Patient: Yes [id number]: A Phase 3, Randomized, Double-Blind, Placebo-Controlled Study [...] per GBM-16. TMZ maintenance supply received from [facility] for start of Cycle 1, scheduled for 06/08/25. Labs have been reviewed and are appropriate for treatment on 06/08. 07/01/25: Patient tolerated first adjuvant TMZ maintenance cycle. Labs have been reviewed and are appropriate for next cycle. Will increase TMZ to 200 mg/m2/dose with cycle 2 forward. Updated prescription sent to [facility] today. Labs appropriate for infusion [...] Head, Neck & Respiratory 800 [facility], [address] [place] [address] 08/31/2025 8:30 AM EST Office Visit [facility] [address] [phone] Gabe Cifuentes, RADIO PRODUCER 800 [facility] [address] [place] [address] 08/31/2025 10:00 AM EST Appointment [facility] [address] [place] [address] 09/21/2025 9:15 AM EST Clinical Support [facility] [address] [facility], [address] [place] [phone] 09/21/2025 9:30 AM EST Office Visit [facility] [address] [facility], [address] [place] [phone] aGbe Cifuentes, RADIO PRODUCER [address] [place] [address] 09/21/2025 11:00 AM EST Appointment [facility] [address] [place] [address] 10/05/2025 9:00 AM EST Office Visit [facility] [address], [address] [place] [address] Sanchez Zaldivar MD [address] [place] [address] 10/05/2025 11:00 AM EST Consult [facility] [address], [address] [place] [address] Shy Marquez, JEFFREY [address] [place] [address] Scheduled Orders Name Type Priority [...] documented as of this encounter Care Teams Oil Seal Assembler Relationship Specialty Start Date End Date System, Provider Not In, MD [place] [address] PCP - General Family Medicine 03/23/25 Miguel Perez MD [address] [place] [address] [address] [place] [address] Consulting Physician Radiation Oncology 04/09/25 Sherin Romero RN None None Registered Nurse Medical Oncology 07/20/25 documented as of this encounter
--- OUTSIDE RECORDS SUMMARY | 2025-08-10 15:00 | XMS_ITS | Encounter Summary ---
Author Organization Healthcare Address [address] [place] [address] Care Team Providers Care Plug Overwrap Machine Tender Name Role Phone System, Provider Not In MD Primary Care Provider Unavailable Miguel Perez MD Unavailable [phone] Sherin Romero RN Unavailable Unavailable Reason for Visit * Episode Based Medications (Routine) - Authorized Specialty Diagnoses / Procedures Referred By Génesis t Referred To Contact Diagnoses Glioblastoma multiforme (CMS/HCC) Procedures [id number]: Pembrolizumab or Placebo + Optune Every 21 Days / Temozolomide Every 28 Days Chente Sebastian MD 800 [facility] Liyah Conde [address] [address] Phone: tel: fax: Chente Sebastian MD 800 [facility] Liyah Conde [address] [address] Phone: tel: fax: Referral ID Status Reason Start Date Expiration Date V isits Requested Visits Authorized [id number] Authorized 05/29/2025 11/28/2026 1 1 Encounter Details Date Type Department Care Team (Latest Contact Info) Description 08/10/2025 3:00 PM EST - 08/10/2025 11:59 PM EST Hospital Encounter [facility] [address] [place] [phone] Glioblastoma multiforme (CMS/HCC) (Primary Dx) Discharge Disposition: [...] any time in the past 12 m [facility], were you homeless or [...] drink first t carroll in the morning (EYE-EQUIPMENT CLEANER AND TESTER) to steady your nerves or to [...] tablet by mouth daily. 06/01/2025 Ascorbic Acid 68122 MG/30ML solution Infuse 87.5 g into a [...] Upcoming Encounters Date Type Department Care Team ([facility] st Contact Info) Description 08/31/2025 8:15 AM EST Clinical Support [facility] 800 [facility], 2nd [place] [address] 08/31/2025 8:30 AM EST Office Visit [facility] 800 [facility] [address]nd [place] [address] Gabe Cifuentes, RUBY ON RAILS ENGINEER 800 [facility] [address] [address] 08/31/2025 10:00 AM EST Appointment [facility] [address] [place] [address] 09/21/2025 9:15 AM EST Clinical Support [facility] 800 [facility] [address] [place] [address] 09/21/2025 9:30 AM EST Office Visit [facility] [address] [address] Gabe Cifuentes, RUBY ON RAILS ENGINEER [address] [address] 09/21/2025 11:00 AM EST Appointment [facility] Prec[facility] Medicine [address] [address] 10/05/2025 9:00 AM EST Office Visit [facility] [address], 1st [place] [address] Sanchez Zaldivar MD [address] [place] [address] 10/05/2025 11:00 AM EST Consult [facility] [address], 1st [place] [address] Shy Marquez APRN [address] [place] [address] documented as of this encounter Visit Diagnoses [...] as of this encounter Care Teams Plug Overwrap Machine Tender Relationship Specialty Start Date End Date System, Provider Not In, [place] [address] PCP - General Family Medicine 03/23/25 Miguel Perez MD [address] [place] [address] [address] [place] [address] Consulting Physician Radiation Oncology 04/09/25 Sherin Romero, RN None None Registered Nurse Medical Oncology 07/20/25 documented as of this encounter
--- OUTSIDE RECORDS SUMMARY | 2025-08-23 13:22 | XMS_ITS | Encounter Summary ---
Author Organization Healthcare Address [address] [place] [address] Care Team Providers Care Tire Shop Mechanic Name Role Phone System, Provider Not In Primary Care Provider Unavailable Miguel Perez MD Unavailable [phone] Sherin Romero RN Unavailable Unavailable Encounter Details Date Type Department Care Team (Late st Contact Info) Description 07/22/2025 Telephone [place] [facility] [address], 1st [place] [address] System, Provider Not In, [address] [place] [address] Social History Tobacco Use Types Packs/Day Years [...] drink first t carroll in the morning (EYE-PATIENT APPOINTMENT COORDINATOR) to steady your nerves or to get [...] Upcoming Encounters Date Type Department Care Team ([facility] st Contact Info) Description 08/31/2025 8:15 AM EST Clinical Support [facility] 800 [facility], 2nd [place] [address] 08/31/2025 8:30 AM EST Office Visit [facility] [address] [address] Gabe Cifuentes, VOLLEYBALL REFEREE 800 [facility] [address] [address] 08/31/2025 10:00 AM EST Appointment [facility] 800 [place] [address] 09/21/2025 9:15 AM EST Clinical Support [facility] [address] [address] 09/21/2025 9:30 AM EST Office Visit [facility] [address] [address] Gabe Cifuentes, VOLLEYBALL REFEREE 800 [facility] [address] [address] 09/21/2025 11:00 AM EST Appointment [facility] 800 [place] [address] 10/05/2025 9:00 AM EST Office Visit [facility] [address], 1st [place] [address] Sanchez Zaldivar MD [address] [facility] [address] [place] [address] 10/05/2025 11:00 AM EST Consult [place] [facility] [address], 1st [place] [address] Shy Marquez, VOLLEYBALL REFEREE [address] [place] [address] documented as of this encounter [...] documented as of this encounter Care Teams Tire Shop Mechanic Relationship Specialty Start Date End Date System, Provider Not In, [address] [place] [address] PCP - General Family Medicine 03/23/25 Miguel Perez MD [address] [place] [address] [address] [place] [address] Consulting Physician Radiation Oncology 04/09/25 Sherin Romero, SKY None None Registered Nurse Medical Oncology 07/20/25 documented as of this encounter
--- OUTSIDE RECORDS SUMMARY | 2025-08-23 13:22 | XMS_ITS | Encounter Summary ---
Author Organization Healthcare Address [address] [place] [address] Care Team Providers Care Prepress Operator Name Role Phone System, Provider Not In Primary Care Provider Unavailable Miguel Perez MD Unavailable Sherin Romero RN Unavailable Unavailable Encounter Details Date Type Department Care Team (Late st Contact Info) Description 07/21/[address] [facility] [address], 1st [place] [address] System, Provider Not In, [address] [place] [address] Social History Tobacco Use Types Packs/Day Years [...] drink first t carroll in the morning (EYE-DISTRIBUTION CENTER MANAGER) to steady your nerves or to [...] & Respiratory 800 [facility], 2nd [place] [address] 08/31/2025 8:30 AM EST Office Visit [facility] [address] [address] Gabe Cifuentes, SPORTS PHYSIOTHERAPIST 800 [facility] [address] [address] 08/31/2025 10:00 AM EST Appointment [facility] 800 [place] [address] 09/21/2025 9:15 AM EST Clinical Support [facility] [address] [address] 09/21/2025 9:30 AM EST Office Visit [facility] [address] [address] Gabe Cifuentes, SPORTS PHYSIOTHERAPIST 800 [facility] [address] [address] 09/21/2025 11:00 AM EST Appointment [facility] 800 [place] [address] 10/05/2025 9:00 AM EST Office Visit [facility] [address], 1st [place] [address] Sanchez Zaldivar MD [address] [facility] [address] [place] [address] 10/05/2025 11:00 AM EST Consult [place] [facility] [address], 1st [place] [address] Shy Marquez, SPORTS PHYSIOTHERAPIST [address] [place] [address] documented as of this encounter [...] documented as of this encounter Care Teams Prepress Operator Relationship Specialty Start Date End Date System, Provider Not In, [address] [place] [address] PCP - General Family Medicine 03/23/25 Miguel Perez MD [address] [place] [address] [address] [place] [address] Consulting Physician Radiation Oncology 04/09/25 Sherin Romero, SKY None None Registered Nurse Medical Oncology 07/20/25 documented as of this encounter
--- OUTSIDE RECORDS SUMMARY | 2025-08-23 13:22 | XMS_ITS | Encounter Summary ---
Author Organization Healthcare Address [address] [place] [address] Care Team Providers Care Workers Compensation Administrator Name Role Phone System, Provider Not In MD Primary Care Provider Unavailable Miguel Perez MD Unavailable [phone] Sherin Romero RN Unavailable Unavailable Encounter Details [...] drink first t carroll in the morning (EYE-SLATE ROOFER) to steady your nerves or to get [...] [facility] Neck & Respiratory 800 [facility] 2nd [place] [address] 08/31/2025 8:30 AM EST Office Visit [facility] Res[facility] [address] [phone] Gabe Cifuentes, SCREW MACHINE ADJUSTER AUTOMATIC 800 [facility] Liyah Conde [facility] [address] [place] [address] 08/31/2025 10:00 AM EST Appointment [facility] 800 [place] [address] 09/21/2025 9:15 AM EST Clinical Support [facility] Res[facility] [address] [phone] 09/21/2025 9:30 AM EST Office Visit [facility] [address] [phone] Gabe Cifuentes, SCREW MACHINE ADJUSTER AUTOMATIC 800 [facility] Liyah Conde dg [address] [place] [address] 09/21/2025 11:00 AM EST Appointment [facility] 800 [place] [address] 10/05/2025 9:00 AM EST Office Visit [facility] [address], 1st [place] [address] Sanchez Zaldivar MD [address] [place] [address] 10/05/2025 11:00 AM EST Consult [facility] [address], 1st [place] [address] Shy Marquez, JEFFREY [address] [place] [address] documented as of this encounter Visit Diagnoses [...] documented as of this encounter Care Teams Workers Compensation Administrator Relationship Specialty Start Date End Date System, Provider Not In, [address] [place] [address] PCP - General Family Medicine 03/23/25 Miguel Perez MD [address] [place] [address] [address] [place] [address] Consulting Physician Radiation Oncology 04/09/25 Sherin Romero RN None None Registered Nurse Medical Oncology 07/20/25 documented as of this encounter
--- OUTSIDE RECORDS SUMMARY | 2025-08-23 13:22 | XMS_ITS | Encounter Summary ---
Author Organization Healthcare Address [address] [place] [address] Care Team Providers Care Rn Eligibility Name Role Phone System, Provider Not In MD Primary Care Provider Unavailable Miguel Perez MD Unavailable [phone] Sherin Romero RN Unavailable Unavailable Encounter Details [...] time in the past 12 m [facility], were you homeless or living in a [...] drink first t carroll in the morning (EYE-DIABETES PHYSICIAN) to steady your nerves or to get [...] [facility] Neck & Respiratory 800 [facility] 2nd [place] [address] 08/31/2025 8:30 AM EST Office Visit [facility] Res[facility] [address] [phone] Gabe Cifuentes, OXYACETYLENE WELDER 800 [facility] Liyah Conde [facility] [address] [place] [address] 08/31/2025 10:00 AM EST Appointment [facility] 800 [place] [address] 09/21/2025 9:15 AM EST Clinical Support [facility] Neck [facility] Respiratory [address] [phone] 09/21/2025 9:30 AM EST Office Visit [facility] Res[facility] [address] [phone] Gabe Cifuentes, OXYACETYLENE WELDER 800 [facility] Liyah Conde dg [address] [place] [address] 09/21/2025 11:00 AM EST Appointment [facility] 800 [place] [address] 10/05/2025 9:00 AM EST Office Visit [facility] [address], 1st [place] [address] Sanchez Zaldivar MD [address] [place] [address] 10/05/2025 11:00 AM EST Consult [facility] [address], 1st [place] [address] Shy Marquez, JEFFREY [address] [place] [address] documented as of this encounter Visit Diagnoses [...] documented as of this encounter Care Teams Rn Eligibility Relationship Specialty Start Date End Date System, Provider Not In, [address] [place] [address] PCP - General Family Medicine 03/23/25 Miguel Perez MD [address] [place] [address] [address] [place] [address] Consulting Physician Radiation Oncology 04/09/25 Sherin Romero RN None None Registered Nurse Medical Oncology 07/20/25 documented as of this encounter
--- OUTSIDE RECORDS SUMMARY | 2025-08-23 13:22 | XMS_ITS | Encounter Summary ---
Author Organization Healthcare Address [address] [place] [address] Care Team Providers Care Engraving Supervisor Name Role Phone System, Provider Not In MD Primary Care Provider Unavailable Miguel Perez MD Unavailable [phone] Sherin Romero RN Unavailable Unavailable Encounter Details Date Type Department Care Team (Late st Contact Info) Description 08/05/2025 Orders Only Pav [facility] Head[facility] Neck & Respiratory 800 [facility], 2nd [place] [address] Chente Sebastian MD 800 [facility] [address] [place] [address] Glioblastoma multiforme (CMS/HCC) (Primary Dx); Exam for [...] in a group home (including now)? No 03/23/2025 CAGE ASSESSMENT [...] drink first t carroll in the morning (EYE-GUEST ROOM ATTENDANT) to steady your nerves or to get [...] Neck & Respiratory 800 [facility] 2nd [place] [address] 08/31/2025 8:30 AM EST Office Visit [facility] Res[facility] [address] [address] Gabe Cifuentes, TIE PULLER [address] [address] 08/31/2025 10:00 AM EST Appointment [facility] 800 [place] [address] 09/21/2025 9:15 AM EST Clinical Support [facility] Res[facility] [address] [address] 09/21/2025 9:30 AM EST Office Visit [facility] Res[facility] [address] [address] Gabe Cifuentes, TIE PULLER [address] [address] 09/21/2025 11:00 AM EST Appointment [facility] 800 [place] [address] 10/05/2025 9:00 AM EST Office Visit [place] [facility] [address], 1st [place] [address] Sanchez Zaldivar MD [address] [place] [address] 10/05/2025 11:00 AM EST Consult [place] [facility] [address], [address]st [place] [address] Shy Marquez, TIE PULLER [address] [place] [address] documented as of this encounter Results * APTT (08/10/2025 2:20 PM EST) aPTT 27 25 - 35 sec LAB COAGULATION METHOD 08/10/2025 3:07 PM EST [facility] Blood Venous blood specimen / Unknown Venipuncture / Unknown 08/10/2025 2:20 PM EST 08/10/2025 2:35 PM EST Chente Sebastian MD LAB BLOOD ORDERABLES Final Res ult [facility] [address] [place] [address] * (ABNORMAL) Prothrombin Time/INR (08/10/2025 2:20 PM EST) Prothrombin Time 15.6(H) 12.0 - 14.3 sec LAB COAGULATION METHOD 08/10/2025 3:07 PM EST [facility] INR 1.2(H) 0.9 - 1.1 LAB COAGULATION METHOD 08/10/2025 3:07 PM EST [facility] Blood Venous blood specimen / Unknown Venipuncture / Unknown 08/10/2025 2:20 PM EST 08/10/2025 2:35 PM EST Narrative [facility] - 08/10/2025 3:07 PM EST OPTIMAL INR RANGES FOR PATIENT ON ORAL ANTICOAGULANT THERAPY Prevention of venous thromboembolism INR 2.0 to 3.0 In patients with heart disease: Atrial fibrillation INR 2.0 to 3.0 Valvular heart disease INR 2.0 to 3.0 Tissue heart valves INR 2.0 to 3.0 Mechanical prosthetic valves INR 2.5 to 3.5 Prevention of recurrent DE INR 2.5 to 3.5 us Chente Sebastian MD LAB BLOOD ORDERABLES Final Res ult [facility] [address] [place] [address] documented in this encounter Visit Diagnoses Diagnosis [...] documented as of this encounter Care Teams Engraving Supervisor Relationship Specialty Start Date End Date System, Provider Not In, [address] [place] [address] PCP - General Family Medicine 03/23/25 Miguel Perez MD [address] [place] [address] [address] [place] [address] Consulting Physician Radiation Oncology 04/09/25 Sherin Romero, RN None None Registered Nurse Medical Oncology 07/20/25 documented as of this encounter
--- OUTSIDE RECORDS SUMMARY | 2025-08-23 13:23 | XMS_ITS | Encounter Summary ---
Author Organization Healthcare Address [address] [place] [address] Care Team Providers Care Machinist 2Nd Shift Name Role Phone System, Provider Not In MD Primary Care Provider Unavailable Miguel Perez MD Unavailable [phone] Sherin Romero RN Unavailable Unavailable Encounter Details [...] living in a fci (including now)? No 03/23/2025 CAGE ASSESSMENT Answer [...] drink first t carroll in the morning (EYE-COAGULANT DIPPER) to steady your nerves or to get [...] Neck & Respiratory 800 [facility] 2nd [place] [address] 08/31/2025 8:30 AM EST Office Visit [facility] Ne[facility] Res[facility] [address] [phone] Gabe Cifuentes, BIZTALK SOFTWARE DEVELOPER 800 [facility] Liyah Conde [facility] [address] [place] [address] 08/31/2025 10:00 AM EST Appointment [facility] 800 [place] [address] 09/21/2025 9:15 AM EST Clinical Support [facility] Res[facility] [address] [phone] 09/21/2025 9:30 AM EST Office Visit [facility] Res[facility] [address] [phone] Gabe Cifuentes, BIZTALK SOFTWARE DEVELOPER 800 [facility] Liyah Conde [address] [place] [address] 09/21/2025 11:00 AM EST Appointment [facility] 800 [place] [address] 10/05/2025 9:00 AM EST Office Visit [facility] [address], 1st [place] [address] Sanchez Zaldivar MD [address] [place] [address] 10/05/2025 11:00 AM EST Consult [facility] [address], 1st [place] [address] Shy Marquez, JEFFREY [address] [place] [address] documented as of this encounter Visit Diagnoses [...] documented as of this encounter Care Teams Machinist 2Nd Shift Relationship Specialty Start Date End Date System, Provider Not In, [address] [place] [address] PCP - General Family Medicine 03/23/25 Miguel Perez MD [address] [place] [address] [address] [place] [address] Consulting Physician Radiation Oncology 04/09/25 Sherin Romero RN None None Registered Nurse Medical Oncology 07/20/25 documented as of this encounter
--- OUTSIDE RECORDS SUMMARY | 2025-08-23 13:23 | XMS_ITS | Encounter Summary ---
Author Organization Healthcare Address [address] [place] [address] Care Team Providers Care Extruder Operator Multiple Name Role Phone System, Provider Not In MD Primary Care Provider Unavailable Miguel Perez MD Unavailable [phone] Encounter Details Date Type Department Care Team [...] time in the past [address] [facility], were you homeless or living in [...] drink first t carroll in the morning (EYE-CMS EXPERT) to steady your nerves or to get [...] [facility] Res[facility] [address] [phone] 08/31/2025 8:30 AM EST Office Visit [facility] Neck [facility] Respiratory [address] [phone] Gabe Cifuentes, RUG SIZER 800 [facility] Liy[address] Conde [facility] 134 [place] [address] 08/31/2025 10:00 AM EST Appointment [facility] [address] [place] [phone] 09/21/2025 9:15 AM EST Clinical Support [facility] Neck [facility] Respiratory [address] [phone] 09/21/2025 9:30 AM EST Office Visit [facility] Res[facility] [address] [phone] Gabe Cifuentes, RUG SIZER 800 [facility] [address] [facility] [address] [place] [address] 09/21/2025 11:00 AM EST Appointment [facility] 800 [place] [address] 10/05/2025 9:00 AM EST Office Visit [facility] [address], 1st [place] [address] Sanchez Zaldivar MD [address] [place] [address] 10/05/2025 11:00 AM EST Consult [facility] [address], 1st [place] [address] Shy Marquez, RUG SIZER [address] [place] [address] documented as of this encounter [...] documented as of this encounter Care Teams Extruder Operator Multiple Relationship Specialty Start Date End Date System, Provider Not In, [place] [address] PCP - General Family Medicine 03/23/25 Miguel Perez MD [address] [place] [address] [address] [place] [address] Consulting Physician Radiation Oncology 04/09/25 documented as of this encounter
--- OUTSIDE RECORDS SUMMARY | 2025-08-23 13:23 | XMS_ITS | Encounter Summary ---
Author Organization Healthcare Address [address] [place] [address] Care Team Providers Care Funds Development Director Name Role Phone System, Provider Not In MD Primary Care Provider Unavailable Miguel Perez MD Unavailable [phone] Reason for Referral * Imaging (Urgent) - Closed Specialty Diagnoses / Procedures Referred By Génesis salgado Referred To Contact Cardiology Diagnoses Pain and swelling of lower extremity, unspecified laterality Procedures VAS US Venous Duplex Lower Extremity Bilateral Chente Sebastian MD 800 [facility] 134 [place] [address] Phone: tel: fax: Referral ID Status Reason Start Date Expiration Date V isits Requested Visits Authorized [id number] Closed Perform Procedure 07/01/2025 12/31/2026 1 1 Encounter Details Date Type Department Care Team (Late st Contact Info) Description 07/01/2025 Orders Only Pav [facility] Head[facility] Neck & Respiratory 800 [facility], 2nd [place] [address] Sherin Romero, RN None None [...] in the past 12 m [facility], were you homeless or living in a [...] drink first t carroll in the morning (EYE-PROCUREMENT OFFICER) to steady your nerves or to get rid of a hangover? 0 03/20/2025 CAGE Questionnaire Score 0 025 Utilities Answer Date Recorded In the past 12 months has e [employer], gas, oil, or water [employer] threatened to shut off services in your [...] CC Head, Neck & Respiratory [address] [address] 08/31/2025 8:30 AM EST Office Visit [facility] Res[facility] [address] [address] Gabe Cifuentes, DISASTER DIRECTOR [address] [place] [address] 08/31/2025 10:00 AM EST Appointment [facility] 800 [place] [address] 09/21/2025 9:15 AM EST Clinical Support [facility] Ne[facility] Res[facility] [address] [address] 09/21/2025 9:30 AM EST Office Visit [facility] Neck [facility] Respiratory [address] [address] Gabe Cifuentes, DISASTER DIRECTOR [address] [address] 09/21/2025 11:00 AM EST Appointment P[facility] [address] [place] [address] 10/05/2025 9:00 AM EST Office Visit [facility] [address], 1st [place] [address] Sanchez Zaldivar MD [address] [facility] [address] [place] [address] 10/05/2025 11:00 AM EST Consult [facility] [address], 1st [place] [address] Shy Marquez APRN [address] [facility] [address] [place] [address] documented as of this encounter [...] mid femoral and popliteal veins. Procedure Note Adirenne Muñoz MD - 07/01/2025 CLINICAL INDICATION: Acute [...] documented as of this encounter Care Teams Funds Development Director Relationship Specialty Start Date End Date System, Provider Not In, [place] [address] PCP - General Family Medicine 03/23/25 Miguel Perez MD [address] [place] [address] [address] [place] [address] Consulting Physician Radiation Oncology 04/09/25 documented as of this encounter
--- OUTSIDE RECORDS SUMMARY | 2025-08-23 13:23 | XMS_ITS | Encounter Summary ---
Author Organization Healthcare Address [address] [place] [address] Care Team Providers Care Crusher Tender Name Role Phone System, Provider Not In MD Primary Care Provider Unavailable Miguel Perez MD Unavailable [phone] Encounter Details Date Type Department Care Team [...] in the past 12 m [facility], were you homeless or [...] first t carroll in the morning (EYE-BUSINESS DATABASE ANALYST) to steady your nerves or to [...] CC Head, Neck & Respiratory [address] [phone] 08/31/2025 8:30 AM EST Office Visit [facility] Head[facility] Neck & Respiratory [address] [phone] Gabe Cifuentes, FOOD AND BEVERAGE ASSOCIATE 800 [facility] Liyah Conde [facility] [address] [place] [address] 08/31/2025 10:00 AM EST Appointment [facility] [address] [place] [phone] 09/21/2025 9:15 AM EST Clinical Support Pav [facility] Neck & Respiratory [address] [phone] 09/21/2025 9:30 AM EST Office Visit [facility] Head[facility] Neck & Respiratory [address] [phone] Gabe Cifuentes, FOOD AND BEVERAGE ASSOCIATE 800 [facility] Amaya [facility] [address] [place] [address] 09/21/2025 11:00 AM EST Appointment [facility] 800 [place] [address] 10/05/2025 9:00 AM EST Office Visit [facility] [address], 1st [place] [address] Sanchez Zaldivar MD [address] [place] [address] 10/05/2025 11:00 AM EST Consult [facility] [address], 1st [place] [address] Shy Marquez, FOOD AND BEVERAGE ASSOCIATE [address] [place] [address] documented as of this encounter [...] documented as of this encounter Care Teams Crusher Tender Relationship Specialty Start Date End Date System, Provider [place] In, [place] [address] PCP - General Family Medicine 03/23/25 Miguel Perez MD [address] [place] [address] [address] [place] [address] Consulting Physician Radiation Oncology 04/09/25 documented as of this encounter
--- OUTSIDE RECORDS SUMMARY | 2025-08-23 13:23 | XMS_ITS | Encounter Summary ---
Author Organization Healthcare Address [address] [place] [address] Care Team Providers Care Board Hammer Operator Name Role Phone System, Provider Not In MD Primary Care Provider Unavailable Miguel Perez MD Unavailable [phone] Sherin Romero RN Unavailable Unavailable Encounter Details Date Type Department Care Team (Late st Contact Info) Description 06/29/2025 Telephone [facility] [address] [place] [address] Pedro Jefferson, PharmD None None [...] first t carroll in the morning (EYE-MANAGER OPERATING) to steady your nerves or to get [...] [facility] 800 [facility] [address]nd [place] [address] 08/31/2025 8:30 AM EST Office Visit [facility] [address] [address] Gabe Cifuentes, FUR MIXER [address] [address] 08/31/2025 10:00 AM EST Appointment [facility] 800 [place] [address] 09/21/2025 9:15 AM EST Clinical Support [facility] [address] [address] 09/21/2025 9:30 AM EST Office Visit [facility] [address] [address] Gabe Cifuentes, FUR MIXER [address] [address] 09/21/2025 11:00 AM EST Appointment [facility] 800 [place] [address] 10/05/2025 9:00 AM EST Office Visit [place] [facility] [address], 1st [place] [address] Sanchez Zaldivar MD [address] [place] [address] 10/05/2025 11:00 AM EST [facility] [address], 1st [place] [address] Shy Marquez APRN [address] [place] [address] documented as of this encounter [...] documented as of this encounter Care Teams Board Hammer Operator Relationship Specialty Start Date End Date System, Provider Not In, [address] [place] [address] PCP - General Family Medicine 03/23/25 Miguel Perez MD [address] [place] [address] [address] [place] [address] Consulting Physician Radiation Oncology 04/09/25 Sherin Romero, RN None None Registered Nurse Medical Oncology 07/20/25 documented as of this encounter
--- OUTSIDE RECORDS SUMMARY | 2025-08-23 13:23 | XMS_ITS | Encounter Summary ---
Author Organization Healthcare Address [address] [place] [address] Care Team Providers Care Housekeeper Manager Name Role Phone System, Provider Not In MD Primary Care Provider Unavailable Miguel Perez MD Unavailable [phone] Reason for Visit * Reason Comments Resource Navigation Encounter Details Date Type Department Care Team (Late st Contact Info) Description 07/01/2025 Social Work Psych Oncology [address] [place] [address] Luisa Villafana Social History Tobacco Use Types [...] drink first t carroll in the morning (EYE-RECOVERER) to steady your nerves or to get [...] Visit Disease Status: Established Patient Clinic Location: [facility] Disease Type: Brain & Other Nervous System Services Provided: Gift / Gas Card Gift Card Type: [employer] Gift Card Amount: 100 Education Provided: Wigs/Headcoverings Intervention Level: 3 Units (1 unit = 15 minutes): 2 Narrative: CODING CLERKS SUPERVISOR met with pt per clinic request regarding wig resources. CODING CLERKS SUPERVISOR introduced self and nature of the visit. Pt was pleasant and engaging during the visit today. Pt disclosed that she found a wig and inquired of financial assistance. CODING CLERKS SUPERVISOR discussed with pt [employer] funds and limited assistance. CODING CLERKS SUPERVISOR additionally educated pt of psych onc wigs, [place] [employer], [employer], and [employer] wig options.Pt was understanding and was agreeable to financial assistance for the wig she has picked out. CODING CLERKS SUPERVISOR was able to provide pt with $100 [employer] to assist with purchase of wig. Pt was appreciative for the assistance and denied additional questions or needs at this time. CODING CLERKS SUPERVISOR provided pt with contact in formation for follow up should additional needs arise. CODING CLERKS SUPERVISOR remains available ongoing prn. Luisa Villafana HEMATOLOGY NURSE EDUCATOR, CODING CLERKS SUPERVISOR [phone] documented in this encounter Plan of Treatment Upcoming Encounters Date Type Department Care Team (Late st Contact Info) Description 08/31/2025 8:15 AM EST Clinical Support [facility] 800 [facility], 2nd [place] [address] 08/31/2025 8:30 AM EST Office Visit [facility] 800 [facility], 2nd [place] [address] Gabe Cifuentes, GAS BOOSTER ENGINEER 800 [facility] [address] Amaya [facility] [address] [place] [address] 08/31/2025 10:00 AM EST Appointment [facility] 800 [place] [address] 09/21/2025 9:15 AM EST Clinical Support [facility] 800 [facility], 2nd [place] [address] 09/21/2025 9:30 AM EST Office Visit [facility] 800 [facility], 2nd [place] [address] Gabe Cifuentes, GAS BOOSTER ENGINEER 800 [facility] [address] [place] [address] 09/21/2025 11:00 AM EST Appointment [facility] [address] [place] [address] 10/05/2025 9:00 AM EST Office Visit [facility] [address], 1st [place] [address] Sanchez Zaldivar MD [address] [facility] [address] [place] [address] 10/05/2025 11:00 AM EST Consult [facility] [address], 1st [place] [address] Shy Marquez, JEFFREY [address] [place] [address] documented as of this encounter Visit Diagnoses [...] documented as of this encounter Care Teams Housekeeper Manager Relationship Specialty Start Date End Date System, Provider Not In, [address] [place] [address] PCP - General Family Medicine 03/23/25 Miguel Perez MD 800 [facility] [address] [place] [address] Consulting Physician Radiation Oncology 04/09/25 documented as of this encounter
--- OUTSIDE RECORDS SUMMARY | 2025-08-23 13:23 | XMS_ITS | Clinical Summary ---
[facility] Address [address] [place] [address] Care Team Providers Care Sustain Engineer Name Role Phone Caroline Shultz CERTIFIED INCOME TAX PREPARER Primary Care Provider [phone] Social History Tobacco Use Types Packs/Day Years [...] HEPATITIS C SCREENING Completed 09/22/2024 Insurance [employer] Care Teams Sustain Engineer Relationship Specialty Start Date End Date Caroline Shultz APRN 12[address] [facility] [address] [place] [address] PCP - General Internal Medicine 09/15/24
--- OUTSIDE RECORDS SUMMARY | 2025-08-23 13:23 | XMS_ITS | Encounter Summary ---
Author Organization Healthcare Address [address] [place] [address] Care Team Providers Care Maintainer Operator Name Role Phone System, Provider Not In MD Primary Care Provider Unavailable Miguel Perez MD Unavailable [phone] Sherin Romero RN Unavailable Unavailable Encounter Details Date Type Department Care Team (Late st Contact Info) Description 08/22/2025 Telephone [facility] 800 [place] [address] Radha Coker MD 800 [facility] [address] [place] [address] Social History Tobacco Use Types Packs/Day Years [...] any time in the past 12 m [facility], were you homeless or [...] drink first t carroll in the morning (EYE-GOLF SALES ASSOCIATE) to steady your nerves or to get rid of a hangover? 0 03/20/2025 CAGE Questionnaire Score 0 025 Utilities Answer Date Recorded In the past 12 months has th e [employer], gas, oil, or water company threatened to shut off services in your home? No 03/23/2025 Comments No Sex and Gender Information Value Date Recorded Sex Assigned at Female 09/22/2024 11:47 AM EST Legal Sex Female 8:04 PM EDT Gender Identity Not on file Sexual Orientation Not on file documented as of this encounter Miscellaneous Notes * Telephone Encounter - Radha Coker MD - 08/22/2025 2:21 PM EST Called by outside hospital regarding patient ,65 yo F with GBM currently on clinical trial (TTFieldwith maintenance Temozolomide and Pembrolizumab versus Temozolomide and placebo). Pt presented withworsening N/V and is currently receiving hydration and having anti-emetic regimen optimized. Outside facility will attempt to avoid prolonged Dex use given possibility of immunotherapy in trial and will continue working on optimizing supportive care. Radha Coker MD Hand [facility]oner Hematology-Oncology documented in this encounter Plan of Treatment Upcoming Encounters Date Type Department Care Team (Late st Contact Info) Description 08/31/2025 8:15 AM EST Clinical Support [facility] [address] , 2nd [place] [address] 08/31/2025 8:30 AM EST Office Visit [facility] [address] , [address] [place] [address] Gabe Cifuentes, CAR WHACKER [address] [facility] [address] [place] [address] 08/31/2025 10:00 AM EST Appointment [facility] [address] [place] [address] 09/21/2025 9:15 AM EST Clinical Support [facility] [address] [place] [address] 09/21/2025 9:30 AM EST Office Visit [facility] [address] , 2nd [place] [address] Gabe Cifuentes, CAR WHACKER [address] [place] [address] 09/21/2025 11:00 AM EST Appointment [facility] [address] [place] [address] 10/05/2025 9:00 AM EST Office Visit [facility] [address], 1st [place] [address] Sanchez Zaldivar MD [address] [place] [address] 10/05/2025 11:00 AM EST Consult [facility] [address], [address]st [place] [address] Shy Marquez, JEFFREY [address] [facility] [address] [place] [address] documented as of this encounter [...] documented as of this encounter Care Teams Maintainer Operator Relationship Specialty Start Date End Date System, Provider Not In, [address] [place] [address] PCP - General Family Medicine 03/23/25 Miguel Perez MD [address] [email or web address] [address] [place] [address] Consulting Physician Radiation Oncology 04/09/25 Sherin Romero, RN None None Registered Nurse Medical Oncology 07/20/25 documented as of this encounter
--- OUTSIDE RECORDS SUMMARY | 2025-08-23 13:23 | XMS_ITS | Encounter Summary ---
Author Organization Healthcare Address [address] [place] [address] Care Team Providers Care Machine Assembler Name Role Phone System, Provider Not In Primary Care Provider Unavailable Miguel Perez MD Unavailable [phone] Reason for Visit * Reason Onset Date Comments [facility] Same Day Appt/Overbook Request 06/10/2025 Encounter Details Date Type Department Care Team (Late st Contact Info) Description 06/10/2025 Telephone [facility] [address] [place] [address] System, Provider Not In, [address] [place] [address] HCN Same Day Appt/Overbook Request Social History [...] in the past 12 m [facility], were you homeless or living [...] drink first t carroll in the morning (EYE-RAIL ENGINEER) to steady your nerves or to [...] states she only wants to talk to [place]. States she wants to be scheduled 06/11 at 3:45. * Telephone Encounter - Tea Gamez - 06/10/2025 3:47 PM EDT Status Update Call #3 3rd call regarding the status of the initial request. Best contact number: [phone] (mobile) Optimal time of day to reach [...] the initial request. Best contact number: Other: [phone] Optimal time of day to reach caller: [...] will receive notification of the communication/outcome via [employer]. * Telephone Encounter - Daniel Hunter - [...] double vision but blurry. Best contact number: [phone] (home) Optimal time of day to reach caller: ANYTIME Additional comments/information from caller: None Note: Please do not reply to this message. Follow-up communication and further actions as a result of this message need to be communicated with the patient directly, if the patient is not active onMyChart. If the patient is active on MyChart, they will receive notification of the communication/outcome via [employer]. documented in this encounter Plan of Treatment Upcoming Encounters Date Type Department Care Team (Late st Contact Info) Description 08/31/2025 8:15 AM EST Clinical Support [facility] [address] [phone] 08/31/2025 8:30 AM EST Office Visit [facility] [address] [address] Gabe Cifuentes, MENTALLY IMPAIRED TEACHER 800 [facility] Amaya [facility] [address] [place] [address] 08/31/2025 10:00 AM EST Appointment [facility] [address] [place] [address] 09/21/2025 9:15 AM EST Clinical Support [facility] [address] [address] 09/21/2025 9:30 AM EST Office Visit [facility] [address] [address] Gabe Cifuentes, MENTALLY IMPAIRED TEACHER 800 [facility] [address] [address] 09/21/2025 11:00 AM EST Appointment [facility] 800 [place] [address] 10/05/2025 9:00 AM EST Office Visit [facility] [address], 1st [place] [address] Sanchez Zaldivar MD [address] [place] [address] 10/05/2025 11:00 AM EST Consult [facility] [address], 1st [place] [address] Shy Marquez, MENTALLY IMPAIRED TEACHER [address] [place] [address] documented as of this encounter Visit Diagnoses [...] documented as of this encounter Care Teams Machine Assembler Relationship Specialty Start Date End Date System, Provider Not In, [place] [address] PCP - General Family Medicine 03/23/25 Miguel Perez MD [address] [place] [address] [address] [place] [address] Consulting Physician Radiation Oncology 04/09/25 documented as of this encounter
--- OUTSIDE RECORDS SUMMARY | 2025-08-23 13:23 | XMS_ITS | Encounter Summary ---
Author Organization Healthcare Address [address] [place] [address] Care Team Providers Care Impregnator And Drier Helper Name Role Phone System, Provider Not In MD Primary Care Provider Unavailable Migeul Perez MD Unavailable [phone] Encounter Details Date Type Department Care Team (Late st Contact Info) Description 06/12/2025 Telephone [facility] 800 [facility], 2nd [place] [address] Chente Sebastian MD 800 [facility] [address] [place] [address] Social History Tobacco Use Types [...] living in a retirement (including now)? No 03/23/2025 CAGE ASSESSMENT Answer [...] drink first t carroll in the morning (EYE-SENIOR MANAGER MMCOE) to steady your nerves or to get rid of a hangover? 0 03/20/2025 CAGE Questionnaire Score 0 025 Utilities Answer Date Recorded In the past 12 months has th e [employer], gas, oil, or water company threatened to [...] optimal time of day to reach caller:Sarahi [phone] Note: Please do not reply to this message. Follow-up communication and further actions as a result of this message need to be communicated with the patient directly, if the patient is not active onMyChart. If the patient is active on MyChart, they will receive notification of the communication/outcome via [employer]. documented in this encounter Plan of Treatment Upcoming Encounters Date Type Department Care Team ([facility] st Contact Info) Description 08/31/2025 8:15 AM EST Clinical Support [facility] [address] [address] 08/31/2025 8:30 AM EST Office Visit [facility] 800 [facility], [address]nd [place] [address] Gabe Cifuentes APRN 800 [facility] Liyah Conde [facility] [address] [place] [address] 08/31/2025 10:00 AM EST Appointment [facility] 800 [place] [address] 09/21/2025 9:15 AM EST Clinical Support [facility] 800 [facility], [address]nd [place] [address] 09/21/2025 9:30 AM EST Office Visit [facility] 800 [facility], 2nd [place] [address] Gabe Cifuentes, RECRUITING AND SELECTION CONSULTANT 800 [facility] [address] [place] [address] 09/21/2025 11:00 AM EST Appointment [facility] 800 [place] [address] 10/05/2025 9:00 AM EST Office Visit [facility] [address], 1st [place] [address] Sanchez Zaldivar MD [address] [facility] [address] [place] [address] 10/05/2025 11:00 AM EST Consult [facility] [address], [address]st [place] [address] Shy Marquez, RECRUITING AND SELECTION CONSULTANT [address] [facility] [address] [place] [address] documented as of this encounter Visit Diagnoses [...] documented as of this encounter Care Teams Impregnator And Drier Helper Relationship Specialty Start Date End Date System, Provider Not In, 800 [place] [address] PCP - General Family Medicine 03/23/25 Miguel Perez MD [address] [place] [address] [address] [place] [address] Consulting Physician Radiation Oncology 04/09/25 documented as of this encounter
--- OUTSIDE RECORDS SUMMARY | 2025-08-23 13:23 | XMS_ITS | Encounter Summary ---
Author Organization Healthcare Address [address] [place] [address] Care Team Providers Care Technical Data Analyst Name Role Phone System, Provider Not In MD Primary Care Provider Unavailable Miguel Perez MD Unavailable [phone] Encounter Details Date Type Department Care Team (Late st Contact Info) Description 07/01/2025 Orders Only [facility] [address] , 2nd [place] [address] Sherin Romero, RN None None Glioblastoma multiforme [...] time in the past 12 m [facility], were you homeless or living in [...] drink first t carroll in the morning (EYE-SURVEILLANCE MANAGER) to steady your nerves or to [...] Upcoming Encounters Date Type Department Care Team ([facility] st Contact Info) Description 08/31/2025 8:15 AM EST Clinical Support [facility] [address] [address] 08/31/2025 8:30 AM EST Office Visit [facility] [address] [address] Gabe Cifuentes, ASSOCIATE BRAND MANAGER 800 [facility] [address] [place] [address] 08/31/2025 10:00 AM EST Appointment [facility] [address] [place] [address] 09/21/2025 9:15 AM EST Clinical Support [facility] [address] [address] 09/21/2025 9:30 AM EST Office Visit [facility] [address] [address] aGbe Cifuentes, ASSOCIATE BRAND MANAGER 800 [facility] [address] [address] 09/21/2025 11:00 AM EST Appointment [facility] 800 [place] [address] 10/05/2025 9:00 AM EST Office Visit [place] [facility] [address], 1st [place] [address] Sanchez Zaldivar MD [address] [facility] [address] [place] [address] 10/05/2025 11:00 AM EST Consult [place] [facility] [address], [address] [place] [address] Shy Marquez, ASSOCIATE BRAND MANAGER [address] [place] [address] documented as of this encounter [...] as of this encounter Care Teams Technical Data Analyst Relationship Specialty Start Date End Date System, Provider Not In, [place] [address] PCP - General Family Medicine 03/23/25 Miguel Perez MD [address] [place] [address] [address] [place] [address] Consulting Physician Radiation Oncology 04/09/25 documented as of this encounter
--- OUTSIDE RECORDS SUMMARY | 2025-08-23 13:23 | XMS_ITS | Encounter Summary ---
Author Organization Healthcare Address [address] [place] [address] Care Team Providers Care Barrel Marker Name Role Phone System, Provider Not In MD Primary Care Provider Unavailable Miguel Perez MD Unavailable Sherin Romero RN Unavailable Unavailable Encounter Details Date Type Department Care Team (Late st Contact Info) Description 07/21/2025 Orders Only [facility] 800 [facility], 2nd [place] [address] Chente Sebastian MD 800 [facility] [address] [place] [address] Glioblastoma multiforme (CMS/HCC) (Primary Dx); Exam for [...] any time in the past 12 m [facility], were you homeless or living in a [...] drink first t carroll in the morning (EYE-FABRIC FINISHER) to steady your nerves or to get [...] [facility] Res[facility] 800 [facility] 2nd [place] [address] 08/31/2025 8:30 AM EST Office Visit [facility] [address] [address] Gabe Cifuentes, STEWARD DISHWASHER [address] [address] 08/31/2025 10:00 AM EST Appointment [facility] 800 [place] [address] 09/21/2025 9:15 AM EST Clinical Support [facility] [address] [address] 09/21/2025 9:30 AM EST Office Visit [facility] [address] [address] Gabe Cifuentes, STEWARD DISHWASHER [address] [address] 09/21/2025 11:00 AM EST Appointment [facility] 800 [place] [address] 10/05/2025 9:00 AM EST Office Visit [place] [facility] [address], 1st [place] [address] Sanchez Zaldivar MD [address] [place] [address] 10/05/2025 11:00 AM EST Consult [place] [facility] [address], [address]st [place] [address] Shy Marquez, STEWARD DISHWASHER [address] [place] [address] documented as of this encounter Results * APTT (07/22/2025 1:31 PM EST) aPTT 29 25 - 35 sec LAB COAGULATION METHOD 07/22/2025 2:15 PM EST [facility] Blood Venous blood specimen / Unknown Venipuncture / Unknown 07/22/2025 1:31 PM EST 07/22/2025 1:56 PM EST Chente Sebastian MD LAB BLOOD ORDERABLES Final Res ult [facility] [address] [place] [address] * (ABNORMAL) Prothrombin Time/INR (07/22/2025 1:31 PM EST) Prothrombin Time 15.2(H) 12.0 - 14.3 sec LAB COAGULATION METHOD 07/22/2025 2:15 PM EST [facility] INR 1.2(H) 0.9 - 1.1 LAB COAGULATION METHOD 07/22/2025 2:15 PM EST [facility] Blood Venous blood specimen / Unknown Venipuncture / Unknown 07/22/2025 1:31 PM EST 07/22/2025 1:56 PM EST Narrative [facility] - 07/22/2025 2:15 PM EST OPTIMAL [...] MD LAB BLOOD ORDERABLES Final Res ult [facility] [address] [place] [address] documented in this encounter Visit Diagnoses Diagnosis [...] documented as of this encounter Care Teams Barrel Marker Relationship Specialty Start Date End Date System, Provider Not In, [address] [place] [address] PCP - General Family Medicine 03/23/25 Miguel Perez MD [address] [place] [address] [address] [place] [address] Consulting Physician Radiation Oncology 04/09/25 Sherin Romero RN None None Registered Nurse Medical Oncology 07/20/25 documented as of this encounter
--- OUTSIDE RECORDS SUMMARY | 2025-08-23 13:23 | XMS_ITS | Encounter Summary ---
Author Organization Healthcare Address [address] [place] [address] Care Team Providers Care Tracer Powder Blender Name Role Phone System, Provider Not In MD Primary Care Provider Unavailable Miguel Perez MD Unavailable [phone] Encounter Details Date Type Department Care Team [...] drink first t carroll in the morning (EYE-FAMILY MANAGER) to steady your nerves or to [...] [facility] [address] [phone] 08/31/2025 8:30 AM EST Office Visit [facility] [address] [phone] Gabe Cifuentes, MARKER SHIPMENTS 800 [facility] Liyah Conde [facility] 134 [place] [address] 08/31/2025 10:00 AM EST Appointment [facility] [address] [place] [phone] 09/21/2025 9:15 AM EST Clinical Support Pav [facility] [address] [phone] 09/21/2025 9:30 AM EST Office Visit Pav [facility] [address] [phone] Gabe Cifuentes, MARKER SHIPMENTS 800 [facility] Amaya [facility] 134 [place] [address] 09/21/2025 11:00 AM EST Appointment [facility] 800 [place] [phone] 10/05/2025 9:00 AM EST Office Visit [facility] [address], 1st [place] [address] Sanchez Zaldivar MD [address] [place] [address] 10/05/2025 11:00 AM EST Consult [facility] [address], 1st [place] [address] Shy Marquez, MARKER SHIPMENTS [address] [place] [address] documented as of this encounter [...] documented as of this encounter Care Teams Tracer Powder Blender Relationship Specialty Start Date End Date System, Provider [place] In, [place] [address] PCP - General Family Medicine 03/23/25 Miguel Perez MD [address] [place] [address] [address] [place] [address] Consulting Physician Radiation Oncology 04/09/25 documented as of this encounter
--- OUTSIDE RECORDS SUMMARY | 2025-08-23 13:23 | XMS_ITS | Encounter Summary ---
Author Organization Healthcare Address [address] [place] [address] Care Team Providers Care Drug Abuse Technician Name Role Phone System, Provider Not In MD Primary Care Provider Unavailable Miguel Perez MD Unavailable [phone] Sherin Romero RN Unavailable Unavailable Encounter Details Date Type Department Care Team (Late st Contact Info) Description 07/14/2025 Telephone Pav [facility] Res[facility] 800 [facility], 2nd [place] [phone] Gabe Cifuentes, SOLAR PHOTOVOLTAIC SYSTEMS ENGINEER 800 [facility] Am[address] [place] [address] Social History Tobacco Use Types Packs/Day Years [...] any time in the past 12 m [facility], were you homeless or living [...] drink first t carroll in the morning (EYE-PEDIATRIC SOCIAL WORKER) to steady your nerves or to get rid of a hangover? 0 03/20/2025 CAGE Questionnaire Score 0 025 Utilities Answer Date Recorded In the past 12 months has th e [employer], [employer], oil, or water [employer] threatened to shut off services in your [...] 07/14/2025 4:28 PM EST Per call to [facility], infusion center needs an email address or contact agent regarding her infusions expected this week. Radha Del Rosario [phone] [email or web address] documented in this encounter Plan of Treatment Upcoming Encounters Date Type Department Care Team (Late st Contact Info) Description 08/31/2025 8:15 AM EST Clinical Support Pav [facility] 800 [facility], 2nd [place] [address] 08/31/2025 8:30 AM EST Office Visit Pav [facility] 800 [facility], 2nd [place] [address] Gabe Cifuentes, SOLAR PHOTOVOLTAIC SYSTEMS ENGINEER 800 [facility] Liyah Amaya [facility] [address] [place] [address] 08/31/2025 10:00 AM EST Appointment [facility] 800 [place] [address] 09/21/2025 9:15 AM EST Clinical Support Pav [facility] Res[facility] 800 [facility], 2nd [place] [address] 09/21/2025 9:30 AM EST Office Visit Pav [facility] Res[facility] 800 [facility], 2nd [place] [address] Gabe Cifuentes, SOLAR PHOTOVOLTAIC SYSTEMS ENGINEER 800 [facility] Li[address] [place] [address] 09/21/2025 11:00 AM EST Appointment [facility] Precision Medicine [address] [address] 10/05/2025 9:00 AM EST Office Visit [facility] [address], 1st [place] [address] Sanchez Zaldivar MD [address] [facility] [address] [place] [address] 10/05/2025 11:00 AM EST Consult [facility] [address], 1st [place] [address] Shy Marquez, SOLAR PHOTOVOLTAIC SYSTEMS ENGINEER [address] [facility] [address] [place] [address] documented as of this encounter Visit Diagnoses [...] documented as of this encounter Care Teams Drug Abuse Technician Relationship Specialty Start Date End Date System, Provider Not In, [address] [place] [address] PCP - General Family Medicine 03/23/25 Miguel Perez MD [address] [address] Consulting Physician Radiation Oncology 04/09/25 Sherin Romero, RN None None Registered Nurse Medical Oncology 07/20/25 documented as of this encounter
--- OUTSIDE RECORDS SUMMARY | 2025-08-23 13:23 | XMS_ITS | Encounter Summary ---
Author Organization Healthcare Address [address] [place] [address] Care Team Providers Care Sports Marketer Name Role Phone System, Provider Not In MD Primary Care Provider Unavailable Miguel Perez MD Unavailable [phone] Encounter Details Date Type Department Care Team [...] drink first t carroll in the morning (EYE-JEWEL INSPECTOR) to steady your nerves or to [...] Pav [facility] [address] [phone] 08/31/2025 8:30 AM EST Office Visit Pav [facility] [address] [phone] Gabe Cifuentes, COMPUTER NUMERICAL CONTROL OPERATOR 800 [facility] Liyah Conde [facility] 134 [place] [address] 08/31/2025 10:00 AM EST Appointment [facility] [address] [place] [phone] 09/21/2025 9:15 AM EST Clinical Support Pav [facility] [address] [phone] 09/21/2025 9:30 AM EST Office Visit [facility] [address] [phone] Gabe Cifuentes, COMPUTER NUMERICAL CONTROL OPERATOR 800 [facility] Amaya [facility] 134 [place] [address] 09/21/2025 11:00 AM EST Appointment [facility] 800 [place] [phone] 10/05/2025 9:00 AM EST Office Visit [facility] [address], 1st [place] [address] Sanchez Zaldivar MD [address] [place] [address] 10/05/2025 11:00 AM EST Consult [facility] [address], 1st [place] [address] Shy Marquez, COMPUTER NUMERICAL CONTROL OPERATOR [address] [place] [address] documented as of this encounter [...] documented as of this encounter Care Teams Sports Marketer Relationship Specialty Start Date End Date System, Provider [place] In, [place] [address] PCP - General Family Medicine 03/23/25 Miguel Perez MD [address] [place] [address] [address] [place] [address] Consulting Physician Radiation Oncology 04/09/25 documented as of this encounter
--- OUTSIDE RECORDS SUMMARY | 2025-08-23 13:23 | XMS_ITS | Encounter Summary ---
Author Organization Healthcare Address [address] [place] [address] Care Team Providers Care Histologic Technician Name Role Phone System, Provider Not In MD Primary Care Provider Unavailable Miguel Perez MD Unavailable [phone] Encounter Details Date Type Department Care Team (Late st Contact Info) Description 06/30/2025 Orders Only Pav [facility] Respiratory [address] , 2nd [place] [address] Ashlyn Irvin RN ```````````````````````` ```HOSP. OBSTETRICS, POST [...] any time in the past 12 m [facility], were you homeless or living in a [...] drink first t carroll in the morning (EYE-PLATING DEPARTMENT HELPER) to steady your nerves or to [...] Upcoming Encounters Date Type Department Care Team ([facility] st Contact Info) Description 08/31/2025 8:15 AM EST Clinical Support Pav [facility]ck [facility] Respiratory 800 [facility] 2nd [place] [address] 08/31/2025 8:30 AM EST Office Visit Pav [facility] [address] [address] Gabe Cifuentes, LASER PRINTING OPERATOR 800 [facility] Amaya [address] [address] 08/31/2025 10:00 AM EST Appointment [facility] 800 [place] [address] 09/21/2025 9:15 AM EST Clinical Support Pav [facility] [address] [address] 09/21/2025 9:30 AM EST Office Visit [facility] [address] [address] Gabe Cifuentes, LASER PRINTING OPERATOR 800 [facility] Liyah [address] [address] 09/21/2025 11:00 AM EST Appointment [facility] 800 [place] [address] 10/05/2025 9:00 AM EST Office Visit [place] [facility] [address], 1st [place] [address] Sanchez Zaldivar MD [address] [place] [address] 10/05/2025 11:00 AM EST Consult [place] [facility] [address], [address] [place] [address] Shy Marquez, LASER PRINTING OPERATOR [address] [place] [address] documented as of this encounter [...] documented as of this encounter Care Teams Histologic Technician Relationship Specialty Start Date End Date System, Provider Not In, [place] [address] PCP - General Family Medicine 03/23/25 Miguel Perez MD [address] [place] [address] [address] [place] [address] Consulting Physician Radiation Oncology 04/09/25 documented as of this encounter
--- OUTSIDE RECORDS SUMMARY | 2025-08-23 13:23 | XMS_ITS | Encounter Summary ---
Author Organization Healthcare Address [address] [place] [address] Care Team Providers Care Port Drier Name Role Phone System, Provider Not In MD Primary Care Provider Unavailable Miguel Perez MD Unavailable [phone] Encounter Details Date Type Department Care Team (Late st Contact Info) Description 07/02/2025 Orders Only Pav [facility] Head[facility] Neck & Respiratory 800 [facility], 2nd [place] [address] Chente Sebastian MD 800 [facility] [address] [place] [address] Social History Tobacco Use Types Packs/Day Years [...] any time in the past 12 m [facility], were you homeless or [...] drink first t carroll in the morning (EYE-CERTIFIED PHARMACY TECH) to steady your nerves or to get rid of a hangover? 0 03/20/2025 CAGE Questionnaire Score 0 025 Utilities Answer Date Recorded In the past 12 months has th e [employer], gas, oil, or water company threatened to shut off services in your home? No 03/23/2025 Comments No Sex and Gender Information Value Date Recorded Sex Assigned at Female 09/22/2024 11:47 AM EST Legal Sex Female 8:04 PM EDT Gender Identity Not on file Sexual Orientation Not on file documented as of this encounter Plan of Treatment Upcoming Encounters Date Type Department Care Team ([facility] st Contact Info) Description 08/31/2025 8:15 AM EST Clinical Support Pav [facility] [address] [address] 08/31/2025 8:30 AM EST Office Visit [facility] [address] [address] Gabe Cifuentes, NUT TIGHTENER 800 [facility] [address] [address] 08/31/2025 10:00 AM EST Appointment [facility] 800 [place] [address] 09/21/2025 9:15 AM EST Clinical Support Pav [facility] Res[facility] [address] [address] 09/21/2025 9:30 AM EST Office Visit [facility] [address] [address] Gabe Cifuentes, NUT TIGHTENER [address] [address] 09/21/2025 11:00 AM EST Appointment [facility] 800 [place] [address] 10/05/2025 9:00 AM EST Office Visit [place] [facility] [address], 1st [place] [address] Sanchez Zaldivar MD [address] [facility] [address] [place] [address] 10/05/2025 11:00 AM EST Consult [place] [facility] [address], 1st [place] [address] Jimmy Shy, NUT TIGHTENER [address] [place] [address] documented as of this encounter [...] documented as of this encounter Care Teams Port Drier Relationship Specialty Start Date End Date System, Provider Not In, [address] [place] [address] PCP - General Family Medicine 03/23/25 Miguel Perez MD [address] [place] [address] [address] [place] [address] Consulting Physician Radiation Oncology 04/09/25 documented as of this encounter
--- OUTSIDE RECORDS SUMMARY | 2025-08-23 13:23 | XMS_ITS | Encounter Summary ---
Author Organization Healthcare Address [address] [place] [address] Care Team Providers Care Treasury Analyst Name Role Phone System, Provider Not In MD Primary Care Provider Unavailable Miguel Perez MD Unavailable [phone] Sherin Romero RN Unavailable Unavailable Encounter Details Date Type Department Care Team (Late st Contact Info) Description 07/17/2025 Orders Only Pav [facility] Head[facility] Neck & Respiratory 800 [facility], 2nd [place] [phone] Chente Sebastian MD 800 [facility] [address] [place] [address] Social History Tobacco Use Types Packs/Day Years [...] any time in the past 12 m [facility], were you homeless or living [...] drink first t carroll in the morning (EYE-TECHNICAL SERVICES MANAGER) to steady your nerves or to get rid of a hangover? 0 03/20/2025 CAGE Questionnaire Score 0 025 Utilities Answer Date Recorded In the past 12 months has th e [employer], [employer], oil, or water [employer] threatened to shut off services in your [...] CC Head, Neck & Respiratory [address] [address] 08/31/2025 8:30 AM EST Office Visit Pav [facility] [address] [address] Gabe Cifuentes, AERIAL TRAM OPERATOR [address] [address] 08/31/2025 10:00 AM EST Appointment [facility] 800 [place] [address] 09/21/2025 9:15 AM EST Clinical Support Pav [facility] [address] [address] 09/21/2025 9:30 AM EST Office Visit [facility] [address] [address] Gabe Cifuentes, AERIAL TRAM OPERATOR [address] [address] 09/21/2025 11:00 AM EST Appointment [facility] 800 [place] [address] 10/05/2025 9:00 AM EST Office Visit [place] [facility] [address], 1st [place] [address] Sanchez Zaldivar MD [address] [place] [address] 10/05/2025 11:00 AM EST Consult [place] [facility] [address], 1st [place] [address] Shy Marquez, AERIAL TRAM OPERATOR [address] [place] [address] documented as of this encounter [...] documented as of this encounter Care Teams Treasury Analyst Relationship Specialty Start Date End Date System, Provider Not In, [address] [place] [address] PCP - General Family Medicine 03/23/25 Miguel Perez MD 800 [facility] [address] [place] [address] Consulting Physician Radiation Oncology 04/09/25 Sherin Romero, RN None None Registered Nurse Medical Oncology 07/20/25 documented as of this encounter
--- OUTSIDE RECORDS SUMMARY | 2025-08-23 13:23 | XMS_ITS | Encounter Summary ---
Author Organization Healthcare Address [address] [place] [address] Care Team Providers Care Item Processing Clerk Name Role Phone System, Provider Not In MD Primary Care Provider Unavailable Miguel Perez MD Unavailable [phone] Encounter Details Date Type Department Care Team (Late st Contact Info) Description 07/15/2025 Orders Only Pav [facility] 800 [facility], 2nd [place] [address] Rickie Wagner, PharmD 800 [facility] [address] [place] [address] Social History Tobacco Use Types Packs/Day Years [...] in the [facility] m [facility], were you homeless or living in [...] first t carroll in the morning (EYE-SENIOR AIR DIRECTOR) to steady your nerves or to get rid of a hangover? 0 03/20/2025 CAGE Questionnaire Score 0 025 Utilities Answer Date Recorded In the past 12 months has th e [employer], gas, oil, or water [employer] threatened to shut off services in your home? No 03/23/2025 Comments No Sex and Gender Information Value Date Recorded Sex Assigned at Female 09/22/2024 11:47 AM EST Legal Sex Female 8:04 PM EDT Gender Identity Not on file Sexual Orientation Not on file documented as of this encounter Plan of Treatment Upcoming Encounters Date Type Department Care Team ([facility] st Contact Info) Description 08/31/2025 8:15 AM EST Clinical Support Pav [facility] Head[facility] Neck & Respiratory 800 [facility] 2nd [place] [address] 08/31/2025 8:30 AM EST Office Visit Pav [facility] Respiratory [address] [address] Gabe Cifuentes, GM MOBILE 800 [facility] [address] [address] 08/31/2025 10:00 AM EST Appointment [facility] 800 [place] [address] 09/21/2025 9:15 AM EST Clinical Support Pav [facility] [address] [address] 09/21/2025 9:30 AM EST Office Visit [facility] [address] [address] Gabe Cifuentes, GM MOBILE [address] [address] 09/21/2025 11:00 AM EST Appointment [facility] 800 [place] [address] 10/05/2025 9:00 AM EST Office Visit [place] [facility] [address], 1st [place] [address] Sanchez Zaldivar MD [address] [place] [address] 10/05/2025 11:00 AM EST Consult [place] [facility] [address], [address] [place] [address] Krystalyuniel Shy, GM MOBILE [address] [place] [address] documented as [...] documented as of this encounter Care Teams Item Processing Clerk Relationship Specialty Start Date End Date System, Provider Not In, [address] [place] [address] PCP - General Family Medicine 03/23/25 Miguel Perez MD [address] [place] [address] [address] [place] [address] Consulting Physician Radiation Oncology 04/09/25 documented as of this encounter
--- OUTSIDE RECORDS SUMMARY | 2025-08-23 13:24 | XMS_ITS ---
Author Organization Healthcare Address [address] [place] [address] Care Team Providers Care Contact Center Rep Name Role Phone System, Provider Not In MD Primary Care Provider Unavailable Miguel Perez MD Unavailable [phone] Sherin Romero RN Unavailable Unavailable Active Problems [...] Normotensive - Sodium Goals: Normonatremia - recommend PT/OT/CELLULAR EQUIPMENT INSTALLER evaluation - No indication to obtain echo with most recently obtained on 09/2024 - follow-up [facility] in 8-12 weeks following [...] Normotensive - Sodium Goals: Normonatremia - recommend PT/OT/CELLULAR EQUIPMENT INSTALLER evaluation - No indication to obtain echo with most recently obtained [facility]2024 [facility] following [...] Normotensive - Sodium Goals: Normonatremia - recommend PT/OT/CELLULAR EQUIPMENT INSTALLER evaluation - No indication to obtain echo [...] would like to follow here at the [facility]. - final treatment planning pending [...] would like to follow here at the [facility]. - final treatment planning pending [...] would like to follow here at the [facility]. - final treatment planning pending [...] would like to follow here at the [facility]. - final treatment planning pending [...] to monitor Current Treatment and Therapy Plans [id number]: Pembrolizumab or Placebo + Optune Every 21 [...]
--- OUTSIDE RECORDS SUMMARY | 2025-08-23 13:24 | XMS_ITS | Encounter Summary ---
Author Organization Healthcare Address [address] [place] [address] Care Team Providers Care Database Report Writer Name Role Phone System, Provider Not In MD Primary Care Provider Unavailable Miguel Perez MD Unavailable [phone] Sherin Romero RN Unavailable Unavailable Encounter Details Date Type Department Care Team (Late st Contact Info) Description 08/13/2025 Orders Only Pav [facility] Head[facility] Neck & Respiratory 800 [facility], 2nd [place] [address] Chente Sebastian MD 800 [facility] [address] [place] [address] Social History Tobacco Use Types Packs/Day Years [...] first t carroll in the morning (EYE-SENIOR EMBEDDED SOFTWARE ENGINEER) to steady your nerves or to get rid of a hangover? 0 03/20/2025 CAGE Questionnaire Score 0 025 Utilities Answer Date Recorded In the past 12 months has th e [employer], [employer], oil, or water [employer] threatened to shut off services in your [...] CC Head, Neck & Respiratory [address] [address] 08/31/2025 8:30 AM EST Office Visit [facility] [address] [address] Gabe Cifuentes, SHAFTING CLEANER [address] [address] 08/31/2025 10:00 AM EST Appointment [facility] 800 [place] [address] 09/21/2025 9:15 AM EST Clinical Support Pav [facility] [address] [address] 09/21/2025 9:30 AM EST Office Visit [facility] [address] [address] Gabe Cifuentes, SHAFTING CLEANER [address] [address] 09/21/2025 11:00 AM EST Appointment [facility] 800 [place] [address] 10/05/2025 9:00 AM EST Office Visit [place] [facility] [address], 1st [place] [address] Sanchez Zaldivar MD [address] [place] [address] 10/05/2025 11:00 AM EST Consult [place] [facility] [address], 1[address] [place] [address] Shy Marquez, SHAFTING CLEANER [address] [place] [address] documented as of this encounter [...] documented as of this encounter Care Teams Database Report Writer Relationship Specialty Start Date End Date System, Provider Not In, [address] [place] [address] PCP - General Family Medicine 03/23/25 Miguel Perez MD [address] [place] [address] [address] [place] [address] Consulting Physician Radiation Oncology 04/09/25 Sherin Romero, RN None None Registered Nurse Medical Oncology 07/20/25 documented as of this encounter
--- OUTSIDE RECORDS SUMMARY | 2025-08-23 13:24 | XMS_ITS | Encounter Summary ---
Author Organization Healthcare Address [address] [place] [address] Care Team Providers Care Charge Machine Operator Name Role Phone System, Provider Not In MD Primary Care Provider Unavailable Miguel Perez MD Unavailable [phone] Sherin Romero RN Unavailable Unavailable Encounter Details Date Type Department Care Team (Late st Contact Info) Description 08/12/2025 Telephone [facility] Radiation [address] [facility]. [id number] [place] [address] Miguel Perez MD [address] [place] [address] Social History Tobacco Use Types [...] drink first t carroll in the morning (EYE-ALUMINUM POURER) to steady your nerves or to get rid of a hangover? 0 03/20/2025 CAGE Questionnaire Score 0 025 Utilities Answer Date Recorded In the past 12 months has th e [employer], gas, oil, or water company threatened to shut off services in your home? No 03/23/2025 Comments No Sex and Gender Information Value Date Recorded Sex Assigned at Female 09/22/2024 11:47 AM EST Legal Sex Female 8:04 PM EDT Gender Identity Not on file Sexual Orientation Not on file documented as of this encounter Plan of Treatment Upcoming Encounters Date Type Department Care Team ([facility] st Contact Info) Description 08/31/2025 8:15 AM EST Clinical Support [facility] Res[facility] [address] [address] 08/31/2025 8:30 AM EST Office Visit [facility] [address] [address] Gabe Cifuentes, BRANCH SPECIALIST 800 [facility] [address] [address] 08/31/2025 10:00 AM EST Appointment [facility] [address] [place] [phone] 09/21/2025 9:15 AM EST Clinical Support [facility] [address] [address] 09/21/2025 9:30 AM EST Office Visit [facility] [address] [address] Gabe Cifuentes, BRANCH SPECIALIST [address] [address] 09/21/2025 11:00 AM EST Appointment [facility] [address] [place] [address] 10/05/2025 9:00 AM EST Office Visit [place] [facility] [address], [address] [place] [address] Sanchez Zaldivar MD [address] [place] [phone] 10/05/2025 11:00 AM EST Consult [place] [facility] [address] [place] [address] KrystalShy brice, BRANCH SPECIALIST [address] [place] [address] documented as of this encounter [...] documented as of this encounter Care Teams Charge Machine Operator Relationship Specialty Start Date End Date System, Provider Not In, [address] [place] [address] PCP - General Family Medicine 03/23/25 Miguel Perez MD [address] [place] [address] [address] [place] [address] Consulting Physician Radiation Oncology 04/09/25 Sherin Romero RN None None Registered Nurse Medical Oncology 07/20/25 documented as of this encounter
--- OUTSIDE RECORDS SUMMARY | 2025-08-23 13:24 | XMS_ITS | Encounter Summary ---
Author Organization Healthcare Address [address] [place] [address] Care Team Providers Care Resin Remover Name Role Phone System, Provider Not In MD Primary Care Provider Unavailable Miguel Perez MD Unavailable Sherin Romero RN Unavailable Unavailable Encounter Details Date Type Department Care Team (Late st Contact Info) Description 08/13/2025 Telephone [facility] 800 [facility], [address]nd [place] [phone] Chente Sebastian MD 800 [facility] [address] [place] [address] Social History Tobacco Use Types Packs/Day Years [...] first t carroll in the morning (EYE-DIRECTOR GLOBAL MEDICAL AFFAIRS) to steady your nerves or to get rid of a hangover? 0 03/20/2025 CAGE Questionnaire Score 0 025 Utilities Answer Date Recorded In the past 12 months has th e [employer], gas, oil, or water [employer] threatened to shut off services in your [...] AM EST Per daughter Sarahi call to [facility], pt was seen on Friday 08/10 and per conversation wit provider was expecting a medication to be called in due to fatigue and to increase energy. Medication for fatigue: ritalin they think, unsure of dosage Preferred Pharmacy: [facility] [place] [address] [facility] [address] P: [phone] F: [phone] Sarahi documented in this encounter Plan of Treatment Upcoming Encounters Date Type Department Care Team (Late st Contact Info) Description 08/31/2025 8:15 AM EST Clinical Support [facility] 800 [facility], 2nd [place] [address] 08/31/2025 8:30 AM EST Office Visit [facility] [address] [facility], [address]nd [place] [address] Gabe Cifuentes APRN 800 [facility] [address] [place] [address] 08/31/2025 10:00 AM EST Appointment [facility] 800 [place] [address] 09/21/2025 9:15 AM EST Clinical Support [facility] 800 [facility], 2nd [place] [phone] 09/21/2025 9:30 AM EST Office Visit [facility] [address] [facility], 2nd [place] [phone] Gabe Cifuentes, SCREW MACHINE SETTER 800 [facility] [address] [place] [address] 09/21/2025 11:00 AM EST Appointment [facility] [address] [place] [phone] 10/05/2025 9:00 AM EST Office Visit [facility] [address], [address] [place] [address] Sanchez Zaldivar MD [address] [facility] [address] [place] [address] 10/05/2025 11:00 AM EST Consult [facility] [address], [address] [place] [address] Shy Marquez, SCREW MACHINE SETTER [address] [facility] [address] [place] [phone] documented as of this encounter Visit Diagnoses [...] documented as of this encounter Care Teams Resin Remover Relationship Specialty Start Date End Date System, Provider Not In, [address] [place] [id number] PCP - General Family Medicine 03/23/25 Miguel Perez MD [address] [place] [address] [address] [place] [address] Consulting Physician Radiation Oncology 04/09/25 Sherin Romero RN None None Registered Nurse Medical Oncology 07/20/25 documented as of this encounter
--- OUTSIDE RECORDS SUMMARY | 2025-08-23 13:24 | XMS_ITS | Clinical Summary ---
Author Organization [facility] Address [address] [place] [address] Care Team Providers Care Forensic Ballistics Expert Name Role Phone System, Provider Not In MD Primary Care Provider Unavailable Miguel Perez MD Unavailable [phone] Sherin Romero RN Unavailable Unavailable Allergies Active [...] 100 tablet 1 06/15/2025 Active Ascorbic Acid 35299 MG/30ML solution Infuse 87.5 g into a [...] Normotensive - Sodium Goals: Normonatremia - recommend PT/OT/LIVE IN HOUSEKEEPER NANNY evaluation - No indication to obtain echo with most recently obtained on 09/2024 - follow-up w/[facility] in [...] Normotensive - Sodium Goals: Normonatremia - recommend PT/OT/LIVE IN HOUSEKEEPER NANNY evaluation - No indication to obtain echo with most recently obtained on 09/2024 - follow-up w/[facility] Neurology Clinic in [...] Normotensive - Sodium Goals: Normonatremia - recommend PT/OT/LIVE IN HOUSEKEEPER NANNY evaluation - No indication to obtain echo [...] would like to follow here at the [facility]. - final treatment planning pending [...] would like to follow here at the [facility]. - final treatment planning pending [...] would like to follow here at the [facility]. - final treatment planning pending [...] would like to follow here at the [facility]. - final treatment planning pending [...] Encounters Date Type Department Care Team Description 08/22/2025 Telephone [facility] [address] [place] [address] Radha Coker MD 08/13/2025 Orders Only [facility] [address] [address] Chente Sebastian MD 08/13/2025 Telephone [facility] [address] [address] Chente Sebastian MD 08/12/2025 Telephone [facility] Radiation [address] [facility] [place] [address] [place] [address] Miguel Perez MD 08/11/2025 Orders Only [facility] [address] [address] Chente Sebastian MD Glioblastoma multiforme (CMS/HCC) (Primary Dx); Exam for clinical research 08/10/2025 3:00 PM EST - 08/10/2025 11:59 PM EST Hospital Encounter [facility] [address] [place] [address] Glioblastoma multiforme (CMS/HCC) (Primary Dx) Discharge Disposition: Home or Self Care 08/10/2025 2:20 PM EST Office Visit [facility] [address] [address] Chente Sebastian MD Glioblastoma multiforme (CMS/HCC) (Primary Dx); Research study patient 08/10/2025 1:45 PM EST Clinical Support [facility] [address] [place] [address] Glioblastoma multiforme (CMS/HCC); Exam for clinical research 08/10/2025 7:56 AM EST - 08/10/2025 2:59 PM EST Hospital Encounter [facility] MRI [address] [place] [address] Brain mass; Glioblastoma multiforme (CMS/HCC) Discharge Disposition: Home or Self Care 08/10/2025 - 08/10/2025 7:55 AM EST Hospital Encounter [facility] [address] [place] [phone] Glioblastoma multiforme (CMS/HCC); Exam for clinical research Discharge Disposition: Home or Self Care 08/10/2025 Travel 08/09/2025 Travel 08/05/2025 Orders Only [facility] [address] [facility], 2nd [place] [address] Chente Sebastian MD Glioblastoma multiforme (CMS/HCC) (Primary Dx); Exam for clinical research 07/22/2025 2:10 PM EST - 07/22/2025 11:59 PM EST Hospital Encounter [facility] [address] [place] [address] Glioblastoma multiforme (CMS/HCC) (Primary Dx) Discharge Disposition: Home or Self Care 07/22/2025 1:30 PM EST Office Visit [facility] [address] [place] [phone] Gabe Cifuentes APRN Glioblastoma multiforme (CMS/HCC) (Primary Dx); 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) 07/22/2025 1:15 PM EST Clinical Support [facility] [address] [place] [address] Glioblastoma multiforme (CMS/HCC); Exam for clinical research 07/22/2025 Travel 07/22/2025 Telephone [place] [facility] [address], [address] [place] [address] System, Provider Not In, 07/21/2025 Telephone [facility] [address], [address] [place] [address] System, Provider Not In, 07/21/2025 Orders Only [facility] [address] , [address] [place] [address] Chente Sebastian MD Glioblastoma multiforme (CMS/HCC) (Primary Dx); Exam for clinical research 07/17/2025 Orders Only [facility] [address] [place] [address] Chente Sebastian MD 07/15/2025 Travel 07/15/2025 Orders Only [facility] [address] [place] [address] Rickie Wagner, PharmD 07/14/2025 Telephone [facility] [address] [place] [address] Gabe Cifuentes, SEAM RUBBER 07/06/2025 9:30 AM EDT Office Visit [facility] [address], [address] [place] [address] Sanchez Zaldivar MD Glioblastoma multiforme (CMS/HCC) (Primary Dx); Expressive aphasia; Brain mass 07/06/2025 Travel 07/02/2025 Orders Only [facility] [address] [place] [address] Chente Sebastian MD 07/01/2025 11:00 AM EDT - 07/01/2025 11:59 PM EDT Hospital Encounter [facility] [address] [place] [address] Glioblastoma multiforme (CMS/HCC) (Primary Dx) Discharge Disposition: Home or Self Care 07/01/2025 10:21 AM EDT - 07/01/2025 10:59 AM EDT Hospital Encounter [facility] Vascular Lab [address] [facility] 5th Floor [address], [address] [place] [address] Pain and swelling of lower extremity, unspecified laterality Discharge Disposition: Home or Self Care 07/01/2025 9:40 AM EDT Office Visit [facility] [address] [facility], [address] [place] [address] Chente Sebastian MD Glioblastoma multiforme ([facility]) (Primary Dx) 07/01/2025 9:15 AM EDT Clinical Support [facility] 800 [facility] [address] [place] [address] Glioblastoma multiforme ([facility]/HCC) 07/01/2025 Social Work Psych Oncology [address] [place] [phone] Luisa Villafana 07/01/2025 Orders Only [facility] [address] [address] Sherin Romero, RN Glioblastoma multiforme ([facility]) (Primary Dx) 07/01/2025 Orders Only [facility] [address] [address] Sherin Romero, SKY Pain and swelling of lower extremity, unspecified laterality (Primary Dx) 07/01/2025 Travel 06/30/2025 Travel 06/30/2025 Orders Only [facility] [address] [phone] Ashlyn [place], RN 06/29/2025 Telephone [facility] [address] [place] [address] Pedro Jefferson, PharmD 06/17/2025 Refill [facility] [address] [address] Chente Sebastian MD Glioblastoma multiforme ([facility]/HCC) 06/14/2025 Refill [facility] [address] [address] Chente Sebastian MD 06/12/2025 Telephone [facility] [address] [facility], 2nd [place] [address] Chente Sebastian MD 06/11/2025 4:20 PM EDT Ancillary Procedure [facility] [address] [place] [address] 06/11/2025 4:15 PM EDT Ancillary Procedure [facility] [address] [place] [address] 06/11/2025 4:15 PM EDT Ancillary Procedure [facility] [address] [place] [address] 06/11/2025 3:45 PM EDT Office Visit [facility] [address] [address] Qamar Waller, OD Glioblastoma multiforme (CMS/HCC) (Primary Dx); Blurred vision, left eye; Age-related nuclear cataract of right eye; Combined forms of 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; Hyperopia of right eye; Hyperopia of left eye with astigmatism; Presbyopia of both eyes 06/11/2025 Travel 06/10/2025 Telephone [facility] [address] [place] [address] System, Provider Not In, MD ALEMAN Same Day Appt/Overbook Request 06/10/2025 Social Work Psych Oncology [address] [place] [phone] Luisa Villafana 06/08/2025 10:23 AM EDT - 06/08/2025 11:59 PM EDT Hospital Encounter [facility] [address] [place] [address] Glioblastoma multiforme (CMS/HCC) (Primary Dx) Discharge Disposition: Home or Self Care 06/08/2025 Travel 06/06/2025 Travel 06/05/2025 9:05 AM EDT - 06/05/2025 11:59 PM EDT Hospital Encounter [facility] CC Radiation [address] [facility]. [id number] [place] [address] Olivia Etienne, SEAM RUBBER, DNP Brain mass (Primary Dx); Glioblastoma multiforme (CMS/HCC) Discharge Disposition: Still a Patient 06/05/2025 Clinical Support [facility] [address] [place] [phone] Rickie Wagner PharmD Glioblastoma multiforme (CMS/HCC) (Primary Dx) 06/05/2025 Travel 06/01/2025 9:20 AM EDT Office Visit [facility] [address], [address] [place] [phone] Chente Sebastian MD Glioblastoma multiforme ([facility]/HCC) 06/01/2025 9:00 AM EDT Clinical Support [facility] [address], [address] [place] [address] 06/01/2025 Travel 05/29/2025 Refill [facility] [address] [place] [address] Chente Sebastian MD Glioblastoma multiforme (CMS/HCC) 05/29/2025 Orders Only [facility] [address] [place] [address] Chente Sebastian MD Glioblastoma multiforme ([facility]) (Primary Dx); Research exam 05/29/2025 Travel 05/27/2025 Telephone [facility] [address] [place] [address] Chente Sebastian MD 05/27/2025 Orders Only [facility] [address], [address] [place] [address] Rickie Wagner PharmD Glioblastoma multiforme (CMS/HCC) (Primary Dx) 05/26/2025 Telephone [facility] [address], [address] [place] [address] Chente Sebastian MD 05/26/2025 Travel 05/26/2025 Orders Only [facility] [address] [place] [address] Chente Sebastian MD Glioblastoma multiforme (CMS/HCC) (Primary Dx); Research study patient from Last [...] drink first t carroll in the morning (EYE-AIRCRAFT MAINTENANCE TECHNICIAN) to steady your nerves or to get rid of a hangover? 0 03/20/2025 CAGE Questionnaire Score 0 025 Utilities Answer Date Recorded In the past 12 months has th e [employer], gas, oil, or water [employer] threatened to shut off services in your [...] [facility] [address] [address] 08/31/2025 8:30 AM EST Office Visit [facility] [address] [address] Gabe Cifuentes, SEAM RUBBER [address] [facility] [address] [place] [address] 08/31/2025 10:00 AM EST Appointment [facility] [address] [place] [address] 09/21/2025 9:15 AM EST Clinical Support [facility] [address] [address] 09/21/2025 9:30 AM EST Office Visit [facility] [address] [address] Gabe Cifuentes, SEAM RUBBER [address] [facility] [address] [place] [address] 09/21/2025 11:00 AM EST Appointment [facility] [address] [place] [address] 10/05/2025 9:00 AM EST Office Visit [facility] [address], [facility] [place] [address] Sanchez Zaldivar MD [address] [place] [address] 10/05/2025 11:00 AM EST Consult [facility] [address], [facility] [place] [address] Shy Marquez, SEAM RUBBER [address] [place] [address] Health Maintenance Due Date Last Done Comments [...] UKY-Zoster Vaccines (2 of 2) 07/31/2018 06/05/2018 [id number] Vaccine ( - season) 2025 07/14/2021, 10/08/2020, 09/08/2020 UKY-Influenza Vaccine [...] this topic Medical Devices Implanted Type Area Deputy Program Manager Device Identifier Shelf Expiration Date Model / Serial / Lot Graft Dura Repair 2x2 [employer] - [id number] Implanted:Qty: 1 on 02/24/2025 by Sanchez Zaldivar MD at [id number] 09/09/2026 [id number] / / [id number] Cover, Neuro Eaton Lp 17mm - [id number] Implanted:Qty: 3 on 02/24/2025 by Sanchez Zaldivar MD at [id number] / / Plate, 2 Hole Low Profile - [id number] Implanted:Qty: 1 on 02/24/2025 by Sanchez Zaldivar MD at [facility] Focus [id number] / / Screw Ti Matrixneuro Selfdrill 4mm - [id number] Implanted:Qty: 15 on 02/24/2025 by Sanchez Zaldivar MD at [facility] Focus [id number] / / Procedures Procedure Name [...] - 187 ng/dL 08/10/2025 3:12 PM EST [facility] Blood Venous blood specimen / Unknown Venipuncture / Unknown 08/10/2025 2:20 PM EST 08/10/2025 2:35 PM EST Chente Sebastian MD LAB BLOOD ORDERABLES Final Res ult Performing Organization Address City/[facility] Co de Phone Number [facility] [address] [place] [address] * APTT (08/10/2025 2:20 PM EST) Only the most recent of3 resultswithin the time period is included. aPTT 27 25 - 35 sec LAB COAGULATION METHOD 08/10/2025 3:07 PM EST [facility] Blood Venous blood specimen / Unknown Venipuncture / Unknown 08/10/2025 2:20 PM EST 08/10/2025 2:35 PM EST Chente Sebastian MD LAB BLOOD ORDERABLES Final Res ult Performing Organization Address City/[facility] Co de Phone Number [facility] [address] [place] [address] * (ABNORMAL) Prothrombin Time/INR (08/10/2025 2:20 PM EST) Only the most recent of3 resultswithin the time period is included. Prothrombin Time 15.6(H) 12.0 - 14.3 sec LAB COAGULATION METHOD 08/10/2025 3:07 PM EST [facility] INR 1.2(H) 0.9 - 1.1 LAB COAGULATION METHOD 08/10/2025 3:07 PM EST [facility] Blood Venous blood specimen / Unknown Venipuncture / Unknown 08/10/2025 2:20 PM EST 08/10/2025 2:35 PM EST Narrative [facility] - 08/10/2025 3:07 PM EST OPTIMAL INR RANGES FOR PATIENT ON ORAL ANTICOAGULANT THERAPY Prevention of venous thromboembolism INR 2.0 to 3.0 In patients with heart disease: Atrial fibrillation INR 2.0 to 3.0 Valvular heart disease INR 2.0 to 3.0 Tissue heart valves INR 2.0 to 3.0 Mechanical prosthetic valves INR 2.5 to 3.5 Prevention of recurrent HI INR 2.5 to 3.5 us Chente Sebastian MD LAB BLOOD ORDERABLES Final Res ult [facility] [address] [place] [address] * (ABNORMAL) CBC and differential (08/10/2025 2:20 PM EST) Only the most recent of4 resultswithin the time period is included. WBC Count 4.89 3.70 - 10.30 10*3/uL LAB HEMATOLOGY METHOD 08/10/2025 2:49 PM EST [facility] RBC Count 4.65 3.90 - 5.20 10*6/uL LAB HEMATOLOGY METHOD 08/10/2025 2:49 PM EST [facility] HGB 12.8 11.2 - 15.7 g/dL LAB HEMATOLOGY METHOD 08/10/2025 2:49 PM EST [facility] HCT 39.0 34.0 - 45.0 % LAB HEMATOLOGY METHOD 08/10/2025 2:49 PM EST [facility] Platelet Count 259 155 - 369 10*3/uL LAB HEMATOLOGY METHOD 08/10/2025 2:49 PM EST [facility] MCV 84 79 - 98 fL LAB HEMATOLOGY METHOD 08/10/2025 2:49 PM EST [facility] MCH 27.5 26.0 - 32.0 pg LAB HEMATOLOGY METHOD 08/10/2025 2:49 PM EST [facility] MCHC 32.8 30.7 - 35.5 g/dL LAB HEMATOLOGY METHOD 08/10/2025 2:49 PM EST [facility] RDW 14.2 11.5 - 14.5 % LAB HEMATOLOGY METHOD 08/10/2025 2:49 PM EST [facility] MPV 9.9 8.8 - 12.5 fL LAB HEMATOLOGY METHOD 08/10/2025 2:49 PM EST [facility] nRBC 0.0 <=0.0 per 100 WBCs LAB HEMATOLOGY METHOD 08/10/2025 2:49 PM EST [facility] Differential Type Automated LAB HEMATOLOGY METHOD 08/10/2025 2:49 PM [facility] Neutrophils % 75 % LAB HEMATOLOGY METHOD 08/10/2025 2:49 PM EST [facility] Lymphocytes % 14 % LAB HEMATOLOGY METHOD 08/10/2025 2:49 PM EST [facility] Monocytes % 9 % LAB HEMATOLOGY METHOD 08/10/2025 2:49 PM EST [facility] Eosinophils % 2 % LAB HEMATOLOGY METHOD 08/10/2025 2:49 PM EST [facility] Basophils % 0 % LAB HEMATOLOGY METHOD 08/10/2025 2:49 PM EST [facility] Immature Granulocytes % 0 % LAB HEMATOLOGY METHOD 08/10/2025 2:49 PM EST [facility] Neutrophils Absolute 3.59 1.60 - 6.10 10*3/uL LAB HEMATOLOGY METHOD 08/10/2025 2:49 PM EST [facility] Lymphocytes Absolute 0.69(L) 1.20 - 3.90 10*3/uL LAB HEMATOLOGY METHOD 08/10/2025 2:49 PM EST [facility] Monocytes Absolute 0.46 0.30 - 0.90 10*3/uL LAB HEMATOLOGY METHOD 08/10/2025 2:49 PM [facility] Eosinophils Absolute 0.11 0.00 - 0.50 10*3/uL LAB HEMATOLOGY METHOD 08/10/2025 2:49 PM EST [facility] Basophils Absolute 0.02 0.00 - 0.10 10*3/uL LAB HEMATOLOGY METHOD 08/10/2025 2:49 PM EST [facility] Immature Granulocytes Absolute 0.02 0.00 - 0.06 10*3/uL LAB HEMATOLOGY METHOD 08/10/2025 2:49 PM [facility] Blood Venous blood specimen / Unknown Venipuncture / Unknown 08/10/2025 2:20 PM EST 08/10/2025 2:39 PM EST [facility] - 08/10/2025 2:49 PM EST Therapeutic decision making should be based on absolute values, rather than percentages. us Chente Sebastian MD LAB BLOOD ORDERABLES Final Res ult [facility] [address] [place] [address] * TSH (08/10/2025 2:20 PM EST) Only the most recent of3 resultswithin the time period is included. Thyroid Stimulating Hormone, Plasma 2.20 0.40 - 4.20 uIU/mL 08/10/2025 3:12 PM EST [facility] Blood Venous blood specimen / Unknown Venipuncture / Unknown 08/10/2025 2:20 PM EST 08/10/2025 2:35 PM EST us Chente Sebastian MD LAB BLOOD ORDERABLES Final Res ult Performing Organization Address [facility] Co de Phone Number [facility] [address] [place] [address] * T4, free (08/10/2025 2:20 PM EST) Only the most recent of3 resultswithin the time period is included. Free T4, Plasma 1.2 0.8 - 1.7 ng/dL 08/10/2025 3:12 PM EST [facility] Blood Venous blood specimen / Unknown Venipuncture / Unknown 08/10/2025 2:20 PM EST 08/10/2025 2:35 PM EST us Chente Sebastian MD LAB BLOOD ORDERABLES Final Res ult Performing Organization Address [facility] Co de Phone Number [facility] [address] [place] [address] * (ABNORMAL) Comprehensive metabolic panel (08/10/2025 2:20 PM EST) Only the most recent of4 resultswithin the time period is included. Glucose, Plasma 128(H) 74 - 99 mg/dL 08/10/2025 3:12 PM EST [facility] BUN, Plasma 12 8 - 23 mg/dL 08/10/2025 3:12 PM EST [facility] Creatinine, Plasma 0.65 0.60 - 1.10 mg/dL 08/10/2025 3:12 PM EST [facility] BUN/Creatinine Ratio 18 08/10/2025 3:12 PM EST [facility] Sodium, Plasma 140 136 - 145 mmol/L 08/10/2025 3:12 PM [facility] Potassium, Plasma 3.5(L) 3.6 - 4.9 mmol/L 08/10/2025 3:12 PM EST [facility] Chloride, Plasma 103 97 - 107 mmol/L 08/10/2025 3:12 PM [facility] CO2, Plasma 27 22 - 29 mmol/L 08/10/2025 3:12 PM EST [facility] Anion Gap 10 6 - 16 mmol/L 08/10/2025 3:12 PM EST [facility] Total Calcium, Plasma 9.3 8.9 - 10.2 mg/dL 08/10/2025 3:12 PM [facility] Total Protein 6.8 6.3 - 7.9 g/dL 08/10/2025 3:12 PM [facility] Albumin, Plasma 4.0 3.5 - 5.2 g/dL 08/10/2025 3:12 PM EST [facility] AST, Plasma 14 10 - 35 U/L 08/10/2025 3:12 PM EST [facility] ALT, Plasma 15 10 - 35 U/L 08/10/2025 3:12 PM [facility] Alkaline Phosphatase, Plasma 68 46 - 142 U/L 08/10/2025 3:12 PM [facility] Total Bilirubin, Plasma 0.3 0.2 - 1.1 mg/dL 08/10/2025 3:12 PM EST [facility] eGFRcr 96.6 mL/min/1.7 3m*2 08/10/2025 3:12 PM EST [facility] Comment:Reported eGFRcr in m L/min/1.73m2 is based the CKD-EPI 2020 equation that does not use a race coefficient. Blood Venous blood specimen / Unknown Venipuncture / Unknown 08/10/2025 2:20 PM EST 08/10/2025 2:35 PM EST us Chente Sebastian MD LAB BLOOD ORDERABLES Final Res ult [facility] [address] [place] [id number] * MR Head w and wo IV [...] error, please notify the sender immediately at [phone] and permanently delete the original report and destroy any copies or printouts. Narrative 08/11/2025 7:33 AM EST [facility] - Phone Outpatient NAME: Herminia Murrell DATE OF EXAM: 08/10/2025 Patient No: [id number] Physician: Lowell^Olivia^Bethanie Date of : 1960 Past Medical/Surgical History (entered by technologist): Symptoms/Reason For Exam (entered by technologist): Brain/TALENT ACQUISITION MANAGER neoplasm, assess treatment response Tech Notes [...] Murrell DATE OF EXAM: 08/10/2025 Patient No: [id number] Physician: Lowell^Olivia^Bethanie Date of : 1960 Past Medical/Surgical History (entered by technologist): Symptoms/Reason For Exam (entered by technologist): Brain/TALENT ACQUISITION MANAGER neoplasm,assess treatment response Tech Notes (entered [...] in error, pleasenotify the sender immediately at [phone] and permanently delete theoriginal report and destroy any copies or printouts. Olivia Etienne APRN, [facility] MRI PROCEDURES Final Result * Radiology Research [...] Research Study Name: [id number] Name of the Employee Development Specialist: Dr. Chente Sebastian Correspondence email: [email or web address] Was this trial started before Sep 10, 2022? [facility] Manual release only [2] Reason for preventing [...] report qualifies as a Simple research read. us Chente Sebastian MD IMG RESEARCH ORDERABLES Final [...] Both Eyes (06/11/2025 4:11 PM EDT) Pathologist [facility] Average RNFL Today (OS) 98 um OPHTHALMOLOGY [...] include superior arcuate defect, inferior arcuate defect. Result [facility] Qamar Lucero Waller OD OPHTH VISUAL FIELD Final Re sult * COMPLETE METABOLIC PROFILE (CMP) (06/01/2025 9:54 AM EDT) Result [facility] Historical Provider LAB BLOOD ORDERABLES Final R esult * CBC W/DIFF (06/01/2025 9:54 AM EDT) Historical Provider LAB BLOOD ORDERABLES Final R [...] Adults <6.0% Children and Adolescents <7.5% Source: [place] [employer]. Standards of medical care in diabetes,2017. Diabetes Care.2017:40 (suppl 1):S1-S135. Result [facility] Anaya Felton APRN LAB BLOOD ORDERABLES Final R esult [facility] [address] [place] [address] * Hepatitis C Antibody - ED (09/22/2024 10:51 AM EST) Hepatitis C Antibody Negative Negative 09/22/2024 11:45 AM EST [facility] Blood Venous blood specimen / Unknown Venipuncture / Unknown 09/22/2024 10:51 AM EST 09/22/2024 11:04 AM EST us Kamitammy Amin DO LAB BLOOD ORDERABLES Final Re sult [facility] [address] [place] [address] from Last 3 Months or Most Recently Relevant to Health Maintenance Insurance [facility] [place] [address] Advance Directives * Full Code (Latest Code [...] Patient has decision-making capacity? Yes Care Teams Forensic Ballistics Expert Relationship Specialty Start Date End Date System, Provider Not In, [address] [place] [address] PCP - General Family Medicine 03/23/25 Miguel Perez MD [address] [address] [id number] [place] [address] Consulting Physician Radiation Oncology 04/09/25 Sherin Romero, RN None None Registered Nurse Medical Oncology 07/20/25
--- OUTSIDE RECORDS SUMMARY | 2025-08-23 13:24 | XMS_ITS | Encounter Summary ---
Author Organization Healthcare Address [address] [place] [address] Care Team Providers Care Cathead Operator Name Role Phone System, Provider Not In MD Primary Care Provider Unavailable Miguel Perez MD Unavailable [phone] Sherin Romero RN Unavailable Unavailable Encounter Details Date Type Department Care Team (Late st Contact Info) Description 08/11/2025 Orders Only Pav [facility] Head, Neck & Respiratory 800 [facility], [address]nd [place] [phone] Chente Sebastian MD 800 [facility] [address] [place] [address] Glioblastoma multiforme (CMS/HCC) (Primary Dx); Exam for [...] the past 12 m [facility], were you homeless or living in a [...] drink first t carroll in the morning (EYE-GAME DESIGN INSTRUCTOR) to steady your nerves or to get [...] CC Head, Neck & Respiratory 800 [facility] [address] [place] [address] 08/31/2025 8:30 AM EST Office Visit Pav [facility] Head[facility] Ne[facility] Respiratory [address] [address] Gabe Cifuentes, MECHANICAL PLANNER [address] [address] 08/31/2025 10:00 AM EST Appointment [facility] [address] [place] [address] 09/21/2025 9:15 AM EST Clinical Support Pav [facility] Head[facility] Ne[facility] Res[facility] [address] [address] 09/21/2025 9:30 AM EST Office Visit [facility] [address] [address] Gabe Cifuentes, MECHANICAL PLANNER [address] [address] 09/21/2025 11:00 AM EST Appointment [facility] [address] [place] [address] 10/05/2025 9:00 AM EST Office Visit [place] [facility] [address], [address] [place] [address] Sanchez Zaldivar MD [address] [place] [address] 10/05/2025 11:00 AM EST Consult [place] [facility] [address], [address] [place] [address] Shy Marquez, MECHANICAL PLANNER [address] [place] [address] documented as of this encounter [...] Research Study Name: [id number] Name of the Clerk Rating: Dr. Chente Sebastian Correspondence email: [email or web address] Was this trial started before Sep 10, 2022? [facility] Manual release only [2] Reason for [...] documented as of this encounter Care Teams Cathead Operator Relationship Specialty Start Date End Date System, Provider Not In, [address] [place] [address] PCP - General Family Medicine 03/23/25 Miguel Perez MD [address] [place] [address] [address] [place] [address] Consulting Physician Radiation Oncology 04/09/25 Sherin Romero, RN None None Registered Nurse Medical Oncology 07/20/25 documented as of this encounter
[2025-08-23 13:25] LABS: Adenovirus F 40/41, stool Not Detected (NotDetected); Clostridium Difficile A/B, PCR Not Detected (NotDetected); Cyclospora Cayetanesis Not Detected (NotDetected); Plesimonas Shigalloides, PCR Not Detected (NotDetected); Salmonella, PCR Not Detected (NotDetected); Shiga-like toxin E coli Not Detected (NotDetected); Shigella Enterovasive E coli Not Detected (NotDetected); Vibrio, PCR Not Detected (NotDetected); Yersinia Entercolitica, PCR Not Detected (NotDetected)
== END 2025-08-23 23:59 | disposition home or self-care (01) ==
LOC: LAB.DROPOF 13:20
PROVIDERS: PCP Internal Medicine; Visit Provider Internal Medicine Adolescent Medicine
DX: R19.7 Diarrhea, unspecified (principal)
CPT/HCPCS: 87507

== ENCOUNTER 2025-09-02 10:30 | Emergency (ER) | payer OTHER, MEDICARE, SELFPAY ==
--- OUTSIDE RECORDS SUMMARY | 2025-07-06 08:30 | XMS_ITS | Encounter Summary ---
Author Organization Healthcare Address [address] [place] [address] Care Team Providers Care Automotive Professional Name Role Phone System, Provider Not In MD Primary Care Provider Unavailable Miguel Perez MD Unavailable [phone] Encounter Details Date Type Department Care Team (Late st Contact Info) Description 07/06/2025 9:30 AM EDT Office Visit [place] [facility] [address], [address] [place] [address] Sanchez Zaldivar MD [address] [place] [address] Glioblastoma multiforme (CMS/HCC) (Primary Dx); [...] any time in the past 12 m [facility], were you homeless or living in a [...] drink first t carroll in the morning (EYE-ADHESION TESTER) to steady your nerves or to get rid of a hangover? 0 03/20/2025 CAGE Questionnaire Score 0 025 Utilities Answer Date Recorded In the past 12 months has [facility] [employer], gas, oil, or water [employer] threatened to shut off services in your [...] 9:55 AM EDT documented in this encounter Functional Status * BP Answer Date of Assessment Author 134/90 07/06/2025 9:55 AM Kamari Kohli * Height Answer Date of Assessment Author 66 07/06/2025 9:55 AM Kamari Kohli * Weight Answer Date of Assessment Author 3632 07/06/2025 9:55 AM Kamari Kohli * BMI (Calculated) Answer Date of Assessment Author 36.7 07/06/2025 9:55 AM Kamari Kohli * Percent Excess Weight Loss Answer Date of Assessment Author 0 07/06/2025 9:55 AM Kamari Kohli * Total Weight Change Percent Answer Date of Assessment Author 2222 07/06/2025 9:55 AM Kamari Kohli * Weight Change Since Preop Answer Date of Assessment Author 102.94 07/06/2025 9:55 AM Kamari Kohli * Initial Excess Weight Answer Date of Assessment Author -58.97 07/06/2025 9:55 AM Kamari Kohli * IBW in lbs (Bariatric) Answer Date of Assessment Author 130 07/06/2025 9:55 AM Kamari Kohli * Weight Change Since Last Visit Answer Date of Assessment Author 102.94 07/06/2025 9:55 AM Kamrai Kohli * IBW in kg (Bariatric) Answer Date of Assessment Author 58.97 07/06/2025 9:55 AM Kamari Kohli * Percent of IBW Answer Date of Assessment Author 6,159.06 07/06/2025 9:55 AM Kamari Kohli * EBW (kg) Answer Date of Assessment Author 3,630.33 07/06/2025 9:55 AM Kamari Kohli * EBW (lbs) Answer Date of Assessment Author 3,623.88 07/06/2025 9:55 AM Kamari Kohli * Weight Change 24 hrs Answer Date of Assessment Author -.133 07/06/2025 9:55 AM Kamari Kohli * Depression Screening Question Answer Date of Assessment Author Will the patient answer the depression risk questions? No 07/06/2025 9:58 AM Kamari Kohli * BSA (Calculated - sq m) Answer Date of Assessment Author 2.19 07/06/2025 9:55 AM Kamari Kohli * BMI (Calculated) Answer Date of Assessment Author 36.66 07/06/2025 9:55 AM Kamari Kohli * IBW/kg (Calculated) Male Answer Date of Assessment Author 63.8 07/06/2025 9:55 AM Kamari Kohli * IBW/kg (Calculated) Female Answer Date of Assessment Author 59.3 07/06/2025 9:55 AM Kamari Kohli * IBW/kg (Calculated) Answer Date of Assessment Author 59.3 07/06/2025 9:55 AM Kamari Kohli * Weight in (lb) to have BMI = 25 Answer Date of Assessment Author 154.6 07/06/2025 9:55 AM Kamari Kohli * BMI (Calculated) Answer Date of Assessment Author 36.7 07/06/2025 9:55 AM Kamari Kohli * Percent Excess Weight Loss Answer Date of Assessment Author 0 07/06/2025 9:55 AM Kamari Kohli * Weight Change Since Preop Answer Date of Assessment Author 102.97 07/06/2025 9:55 AM Kaamri Kohli * Initial Excess Weight Answer Date of Assessment Author -58.97 07/06/2025 9:55 AM Kamari Kohli * IBW in kg (Bariatric) Answer Date of Assessment Author 58.97 07/06/2025 9:55 AM Kamari Kohli * IBW in lb (Bariatric) Answer Date of Assessment Author 130 07/06/2025 9:55 AM Kamari Kohli * Weight Change Since Last Visit Answer Date of Assessment Author 102.97 07/06/2025 9:55 AM Kamari Kohli * Percent of IBW Answer Date of Assessment Author 174.62 07/06/2025 9:55 AM Kamari Kohli * EBW (kg) Answer Date of Assessment Author 43.97 07/06/2025 9:55 AM Kamari Kohli * EBW (lb) Answer Date of Assessment Author 97 07/06/2025 9:55 AM Kamari Kohli * Difference in Weight Since Last Visit Answer Date of Assessment Author -0.13 07/06/2025 9:55 AM Kamari Omalley * IBW/kg (Calculated) Answer Date of Assessment Author 59.3 07/06/2025 9:55 AM Kamari Kohli * Adult Low Range Vt 6mL/kg Answer Date of Assessment Author 355.8 07/06/2025 9:55 AM Kamari Kohli * Adult Moderate Range Vt 8mL/kg Answer Date of Assessment Author 474.4 07/06/2025 9:55 AM Kamari Kohli * Adult High Range Vt 10mL/kg Answer Date of Assessment Author 593 07/06/2025 9:55 AM Kamari Kohli * Pain Score Answer Date of Assessment Author 4 07/06/2025 9:57 AM Kamari Kohli * Pain Screening/Additional Assessments Question Answer Date of Assessment Author Pain Screening/Assessments Pain Screening 07/06/2025 9 :57 AM Kamari Kohli * Pain Screening Answer Date of Assessment Author 0-10 07/06/2025 9:57 AM Kamari Kohli * BP Answer Date of Assessment Author 134/90 07/06/2025 9:55 AM Kamari Kohli * Height Answer Date of Assessment Author 66 07/06/2025 9:55 AM Kamari Kohli * Weight Answer Date of Assessment Author 3632 07/06/2025 9:55 AM Kamari Kohli * BSA (Calculated - sq m) Answer Date of Assessment Author 2.19 07/06/2025 9:55 AM EDT Kamari Lopez * BMI (Calculated) Answer Date of Assessment Author 36.66 07/06/2025 9:55 AM EDT Kamari Lopez * Weight in (lb) to have BMI = 25 Answer Date of Assessment Author 154.6 07/06/2025 9:55 AM VISHALT Kamari Lopez * Pain Score Answer Date of Assessment Author 4 07/06/2025 9:57 AM Kamari Kohli documented as of this encounter Mental Status * BP Answer Entry Date Author 134/90 07/06/2025 9:55 AM EDKamari Aldana * Height Answer Entry Date Author 66 07/06/2025 9:55 AM VISHALT Kamari Lopez * Weight Answer Entry Date Author 3632 07/06/2025 9:55 AM Kamari Kohli * BMI (Calculated) Answer Entry Date Author 36.7 07/06/2025 9:55 AM Kamari Kohli * Percent Excess Weight Loss Answer Entry Date Author 0 07/06/2025 9:55 AM Kamari Kohli * Total Weight Change Percent Answer Entry Date Author 2222 07/06/2025 9:55 AM EDKamari Aldana * Weight Change Since Preop Answer Entry Date Author 102.94 07/06/2025 9:55 AM Kamari Kohli * Initial Excess Weight Answer Entry Date Author -58.97 07/06/2025 9:55 AM Kamari Kohli * IBW in lbs (Bariatric) Answer Entry Date Author 130 07/06/2025 9:55 AM Kamari Kohli * Weight Change Since Last Visit Answer Entry Date Author 102.94 07/06/2025 9:55 AM Kamari Kohli * IBW in kg (Bariatric) Answer Entry Date Author 58.97 07/06/2025 9:55 AM Kamari Kohli * Percent of IBW Answer Entry Date Author 6,159.06 07/06/2025 9:55 AM Kamari Kohli * EBW (kg) Answer Entry Date Author 3,630.33 07/06/2025 9:55 AM Kamari Kohli * EBW (lbs) Answer Entry Date Author 3,623.88 07/06/2025 9:55 AM Kamari Kohli * Weight Change 24 hrs Answer Entry Date Author -.133 07/06/2025 9:55 AM Kamari Kohli * Depression Screening Question Answer Entry Date Author Will the patient answer the depression risk questions? No 07/06/2025 9:58 AM Kamari Kohli * BSA (Calculated - sq m) Answer Entry Date Author 2.19 07/06/2025 9:55 AM Kamari Kohli * BMI (Calculated) Answer Entry Date Author 36.66 07/06/2025 9:55 AM Kamari Kohli * IBW/kg (Calculated) Male Answer Entry Date Author 63.8 07/06/2025 9:55 AM Kamari Kohli * IBW/kg (Calculated) Female Answer Entry Date Author 59.3 07/06/2025 9:55 AM Kamari Kohli * IBW/kg (Calculated) Answer Entry Date Author 59.3 07/06/2025 9:55 AM Kamari Kohli * Restart Pain Assessment Timer Answer Entry Date Author Yes 07/06/2025 9:57 AM Kamari Kohli * Weight in (lb) to have BMI = 25 Answer Entry Date Author 154.6 07/06/2025 9:55 AM Kamari Kohli * BMI (Calculated) Answer Entry Date Author 36.7 07/06/2025 9:55 AM Kamari Kohli * Percent Excess Weight Loss Answer Entry Date Author 0 07/06/2025 9:55 AM Kamari Kohli * Weight Change Since Preop Answer Entry Date Author 102.97 07/06/2025 9:55 AM Kamari Kohli * Initial Excess Weight Answer Entry Date Author -58.97 07/06/2025 9:55 AM Kamari Kohli * IBW in kg (Bariatric) Answer Entry Date Author 58.97 07/06/2025 9:55 AM Kamari Kohli * IBW in lb (Bariatric) Answer Entry Date Author 130 07/06/2025 9:55 AM Kamari Kohli * Weight Change Since Last Visit Answer Entry Date Author 102.97 07/06/2025 9:55 AM Kamari Kohli * Percent of IBW Answer Entry Date Author 174.62 07/06/2025 9:55 AM EDT Kamari Lopez * EBW (kg) Answer Entry Date Author 43.97 07/06/2025 9:55 AM EDT Kamari Lopez * EBW (lb) Answer Entry Date Author 97 07/06/2025 9:55 AM EDT Kamari Lopez * Difference in Weight Since Last Visit Answer Entry Date Author -0.13 07/06/2025 9:55 AM EDT Kamari Lopez * IBW/kg (Calculated) Answer Entry Date Author 59.3 07/06/2025 9:55 AM EDT Kamari Lopez * Adult Low Range Vt 6mL/kg Answer Entry Date Author 355.8 07/06/2025 9:55 AM EDT Kamari Lopez * Adult Moderate Range Vt 8mL/kg Answer Entry Date Author 474.4 07/06/2025 9:55 AM EDT Kamari Lopez * Adult High Range Vt 10mL/kg Answer Entry Date Author 593 07/06/2025 9:55 AM EDT Kamari Lopez * Pain Score Answer Entry Date Author 4 07/06/2025 9:57 AM EDT Kamari Lopez * Pain Screening Answer Entry Date Author 0-10 07/06/2025 9:57 AM EDT Kamari Lopez documented in this encounter Miscellaneous Notes * Addendum Note - Sanchez Zaldivar MD - 07/06/2025 9:30 AM EDTAddended by: SANCHEZ ZALDIVAR on: 07/06/2025 06:21 PM Modules accepted: Level of Service * Progress Notes - Yessenia Goel, NETWORK SECURITY ARCHITECT, DNP - 07/06/2025 9:30 AM EDT We [...] a left insular mass after presenting to [facility] with neurologic symptoms. Patient proceeded to [...] today's clinic appointment. Yessenia Goel APRN, DNP, ADAPTED PHYSICAL EDUCATION AIDE-C Deparment of Neurosurgery [facility] -- Sanchez Zaldivar MD, FAANS Director Of Public Health Epilepsy Surgery, Neuro-Oncology & Skull Base, Pediatric Neurosurgery Director, Adult & Pediatric Epilepsy Surgery, Comprehensive Epilepsy Program Dept. of Neurological Surgery, [facility] ([facility]), [address], [facility], [place] [address] - Email: [email or web address] [1] Family History Problem Relation Name Age of Onset Stroke Father 67 [2] Current Outpatient Medications Medication Sig Dispense Refill Acetaminophen Extra Strength 500 MG tablet TAKE TWO TABLETS BY MOUTH EVERY 6 HOURS NEEDED FOR PAIN 100 tablet 1 ascorbic acid (Vitamin C) 500 MG tablet Take 1 tablet by mouth daily. Ascorbic Acid 43479 MG/30ML solution Infuse 87.5 g into a [...] saw and evaluated the patient with the resident/fellow/NETWORK SECURITY ARCHITECT. I discussed the case with the resident/fellow/NETWORK SECURITY ARCHITECT and agree with the findings and plan as documented. documented in this encounter Plan of Treatment Upcoming Encounters Date Type Department Care Team (Late st Contact Info) Description 09/21/2025 9:15 AM EST Clinical Support Pav [facility] Res[facility] [address] [facility], [address] [place] [address] 09/21/2025 9:30 AM EST Office Visit Pav [facility] Respiratory [address] [facility], [address] [place] [address] Gabe Cifuentes, NETWORK SECURITY ARCHITECT [address] [facility] [address] [place] [address] 09/21/2025 11:00 AM EST Appointment [facility] [address] [place] [address] 10/05/2025 9:00 AM EST Office Visit [facility] [address], [address]st [place] [address] Sanchez Zaldivar MD [address] [place] [address] 10/05/2025 11:00 AM EST Consult [facility] [address], [address] [place] [address] Shy Marquez, NETWORK SECURITY ARCHITECT [address] [place] [address] 10/12/2025 8:30 AM EST Appointment [facility] S Radiology [address], [address] [place] [address] documented as of this encounter Visit Diagnoses [...] documented as of this encounter Care Teams Automotive Professional Relationship Specialty Start Date End Date System, Provider Not In, [address] [place] [address] PCP - General Family Medicine 03/23/25 Miguel Perez MD [address] [place] [address] [address] [place] [address] Consulting Physician Radiation Oncology 04/09/25 documented as of this encounter
--- OUTSIDE RECORDS SUMMARY | 2025-07-22 13:15 | XMS_ITS | Encounter Summary ---
Author Organization Healthcare Address [address] [place] [address] Care Team Providers Care Tennis Racket Repairer Name Role Phone System, Provider Not In MD Primary Care Provider Unavailable Miguel Perez MD Unavailable Sherin Romero RN Unavailable Unavailable Reason for Visit * Reason Comments Labs Encounter Details Date Type Department Care Team (Latest Contact Info) Description 07/22/2025 1:15 PM EST Clinical Support Pav [facility] [address] [place] [phone] Glioblastoma multiforme (CMS/HCC); Exam for clinical research Social History Tobacco Use Types Packs/Day Years [...] living in a jail (including now)? No 03/23/2025 CAGE ASSESSMENT Answer [...] drink first t carroll in the morning (EYE-INTEGRATION LEAD) to steady your nerves or to get [...] on file documented as of this encounter Mental Status * Patient reported weight Answer Entry Date Author 242 07/15/2025 9:58 AM EST Mychart, Generic * Patient reported height Answer Entry Date Author 5'6 07/15/2025 9:58 AM EST Mychart, Generic * Patient reported weight one month ago Answer Entry Date Author 242 07/15/2025 9:58 AM EST Mychart, Generic * Patient reported weight six months ago Answer Entry Date Author 250 07/15/2025 9:58 AM EST Mychart, Generic * During the past two weeks my weight has Answer Entry Date Author not changed 07/15/2025 9:58 AM EST Mychart, Generic * Food Intake Answer Entry Date Author less than usual 07/15/2025 9:58 AM EST Mychart, Generic * No problems eating Answer Entry Date Author No 07/15/2025 9:58 AM EST Mychart, Generic * Other symptoms Answer Entry Date Author No 07/15/2025 9:58 AM EST Mychart, Generic * Patient rates activity and functions over past month as Answer Entry Date Author not my normal self, but able to be up and about with fairly normal activities 07/15/2025 9:58 AM EST Mychart, Generic * Weight change % 6 months Answer Entry Date Author -3.2 07/15/2025 9:58 AM EST Mychart, Generic * Weight change % 1 month Answer Entry Date Author 0 07/15/2025 9:58 AM EST Mychart, Generic * Box 1 Answer Entry Date Author 0 07/15/2025 9:58 AM EST Mychart, Generic * Box 2 Answer Entry Date Author 1 07/15/2025 9:58 AM EST Mychart, Generic * Scoring Weight Loss Answer Entry Date Author 0 07/15/2025 9:58 AM EST Mychart, Generic * Box 3 Answer Entry Date Author 7 07/15/2025 9:58 AM EST Mychart, Generic * Box 4 Answer Entry Date Author 1 07/15/2025 9:58 AM EST Mychart, Generic * PG-SGA (SF) -(Additive Score box 1-4) Answer Entry Date Author 9 07/15/2025 9:58 AM EST Mychart, Generic * No appetite, just did not feel like eating Answer Entry Date Author Yes 07/15/2025 9:58 AM EST Mychart, Generic * Nausea Answer Entry Date Author No 07/15/2025 9:58 AM EST Mychart, Generic * Constipation Answer Entry Date Author No 07/15/2025 9:58 AM EST Mychart, Generic * Mouth sores Answer Entry Date Author No 07/15/2025 9:58 AM EST Mychart, Generic * Things taste funny or have no taste Answer Entry Date Author Yes 07/15/2025 9:58 AM EST Mychart, Generic * Problems swallowing Answer Entry Date Author No 07/15/2025 9:58 AM EST Mychart, Generic * Pain Answer Entry Date Author No 07/15/2025 9:58 AM EST Mychart, Generic * Diarrhea Answer Entry Date Author No 07/15/2025 9:58 AM EST Mychart, Generic * Dry mouth Answer Entry Date Author No 07/15/2025 9:58 AM EST Mychart, Generic * Smells bother me Answer Entry Date Author Yes 07/15/2025 9:58 AM EST Mychart, Generic * Feel full quickly Answer Entry Date Author Yes 07/15/2025 9:58 AM EST Mychart, Generic * Fatigue Answer Entry Date Author Yes 07/15/2025 9:58 AM EST Mychart, Generic * kg/cm or lbs/ft ? Answer Entry Date Author lbs/ft 07/15/2025 9:58 AM EST Mychart, Generic * Box 1 (A) Answer Entry Date Author 0 07/15/2025 9:58 AM EST Mychart, Generic * Global Assessment Score (Box 1 + Box 2 + Box 3 + Box 4 + Worksheet 4) Answer Entry Date Author 9 07/15/2025 9:58 AM EST Mychart, Generic * PG-SGA Categorical Stage Answer Entry Date Author B 07/15/2025 9:58 AM EST Mychart, Generic documented in this encounter Plan of Treatment Upcoming Encounters Date Type Department Care Team ([facility] st Contact Info) Description 09/21/2025 9:15 AM EST Clinical Support Pav [facility] [address], [address] [place] [phone] 09/21/2025 9:30 AM EST Office Visit Pav [facility] Res[facility] 800 [facility], [address]nd [place] [phone] Gabe Cifuentes, BIOCHEMISTRY PROFESSOR 800 [facility] [address] [place] [phone] 09/21/2025 11:00 AM EST Appointment [facility] [address] [place] [phone] 10/05/2025 9:00 AM EST Office Visit [facility] [address], [address] [place] [address] Sanchez Zaldivar MD [address] [facility] [address] [place] [address] 10/05/2025 11:00 AM EST Consult [facility] [address], [address] [place] [address] Shy Marquez, BIOCHEMISTRY PROFESSOR [address] [place] [address] 10/12/2025 8:30 AM EST Appointment PAV S Radiology [address], [address] [place] [address] documented as of this encounter Procedures Procedure Name Priority Date/Time Associated Diagnosis Comments APTT Routine 07/22/2025 1:31 PM EST Glioblastoma multiforme (CMS/HCC) Exam for clinical research PROTHROMBIN TIME(PT) / INR Routine 07/22/2025 1:31 PM EST Glioblastoma multiforme (CMS/HCC) Exam for clinical research CBC WITH AUTO DIFFERENTIAL Routine 07/22/2025 1:31 PM EST Glioblastoma multiforme (CMS/HCC) COMPREHENSIVE METABOLIC PANEL, PLASMA Routine 07/22/2025 1:31 PM EST Glioblastoma multiforme (CMS/HCC) documented in this encounter Results * APTT (07/22/2025 1:31 PM EST) aPTT 29 25 - 35 sec LAB COAGULATION METHOD 07/22/2025 2:15 PM EST [facility] Blood Venous blood specimen / Unknown Venipuncture / Unknown 07/22/2025 1:31 PM EST 07/22/2025 1:56 PM EST us Chente Sebastian MD LAB BLOOD ORDERABLES Final Res ult Performing Organization Address [facility] Co de Phone Number [facility] [place] [address] [place] [address] * (ABNORMAL) Prothrombin Time/INR (07/22/2025 1:31 PM EST) Prothrombin Time 15.2(H) 12.0 - 14.3 sec LAB COAGULATION METHOD 07/22/2025 2:15 PM EST [facility] INR 1.2(H) 0.9 - 1.1 LAB COAGULATION METHOD 07/22/2025 2:15 PM EST [facility] Blood Venous blood specimen / Unknown Venipuncture / Unknown 07/22/2025 1:31 PM EST 07/22/2025 1:56 PM EST Narrative [facility] - 07/22/2025 2:15 PM EST OPTIMAL INR RANGES FOR PATIENT ON ORAL ANTICOAGULANT THERAPY Prevention of venous thromboembolism INR 2.0 to 3.0 In patients with heart disease: Atrial fibrillation INR 2.0 to 3.0 Valvular heart disease INR 2.0 to 3.0 Tissue heart valves INR 2.0 to 3.0 Mechanical prosthetic valves INR 2.5 to 3.5 Prevention of recurrent GA INR 2.5 to 3.5 us Chente Sebastian MD LAB BLOOD ORDERABLES Final Res ult Performing Organization Address City/[facility]/ZIP Co de Phone Number [facility] [address] [place] [address] * (ABNORMAL) Comprehensive metabolic panel (07/22/2025 1:31 PM EST) Glucose, Plasma 109(H) 74 - 99 mg/dL 07/22/2025 2:27 PM [facility] BUN, Plasma 16 8 - 23 mg/dL 07/22/2025 2:27 PM [facility] Creatinine, Plasma 0.66 0.60 - 1.10 mg/dL 07/22/2025 2:27 PM [facility] BUN/Creatinine Ratio 24 07/22/2025 2:27 PM [facility] Sodium, Plasma 140 136 - 145 mmol/L 07/22/2025 2:27 PM [facility] Potassium, Plasma 3.9 3.6 - 4.9 mmol/L 07/22/2025 2:27 PM [facility] Chloride, Plasma 103 97 - 107 mmol/L 07/22/2025 2:27 PM [facility] CO2, Plasma 24 22 - 29 mmol/L 07/22/2025 2:27 PM [facility] Anion Gap 13 6 - 16 mmol/L 07/22/2025 2:27 PM [facility] Total Calcium, Plasma 9.5 8.9 - 10.2 mg/dL 07/22/2025 2:27 PM [facility] Total Protein 7.1 6.3 - 7.9 g/dL 07/22/2025 2:27 PM [facility] Albumin, Plasma 4.4 3.5 - 5.2 g/dL 07/22/2025 2:27 PM [facility] AST, Plasma 16 10 - 35 U/L 07/22/2025 2:27 PM [facility] ALT, Plasma 17 10 - 35 U/L 07/22/2025 2:27 PM [facility] Alkaline Phosphatase, Plasma 82 46 - 142 U/L 07/22/2025 2:27 PM [facility] Total Bilirubin, Plasma 0.5 0.2 - 1.1 mg/dL 07/22/2025 2:27 PM [facility] eGFRcr 96.3 mL/min/1.7 3m*2 07/22/2025 2:27 PM EST [facility] Comment:Reported eGFRcr in m L/min/1.73m2 is based the CKD-EPI 2020 equation that does not use a race coefficient. Blood Venous blood specimen / Unknown Venipuncture / Unknown 07/22/2025 1:31 PM EST 07/22/2025 1:56 PM EST us Chente Sebastian MD LAB BLOOD ORDERABLES Final Res ult [facility] [address] [place] [address] * (ABNORMAL) CBC and differential (07/22/2025 1:31 PM EST) WBC Count 5.79 3.70 - 10.30 10*3/uL LAB HEMATOLOGY METHOD 07/22/2025 2:05 PM EST [facility] RBC Count 4.87 3.90 - 5.20 10*6/uL LAB HEMATOLOGY METHOD 07/22/2025 2:05 PM EST [facility] HGB 13.2 11.2 - 15.7 g/dL LAB HEMATOLOGY METHOD 07/22/2025 2:05 PM EST [facility] HCT 41.4 34.0 - 45.0 % LAB HEMATOLOGY METHOD 07/22/2025 2:05 PM EST [facility] Platelet Count 266 155 - 369 10*3/uL LAB HEMATOLOGY METHOD 07/22/2025 2:05 PM EST [facility] MCV 85 79 - 98 fL LAB HEMATOLOGY METHOD 07/22/2025 2:05 PM EST [facility] MCH 27.1 26.0 - 32.0 pg LAB HEMATOLOGY METHOD 07/22/2025 2:05 PM EST [facility] MCHC 31.9 30.7 - 35.5 g/dL LAB HEMATOLOGY METHOD 07/22/2025 2:05 PM EST [facility] RDW 14.5 11.5 - 14.5 % LAB HEMATOLOGY METHOD 07/22/2025 2:05 PM EST [facility] MPV 10.2 8.8 - 12.5 fL LAB HEMATOLOGY METHOD 07/22/2025 2:05 PM EST [facility] nRBC 0.0 <=0.0 per 100 WBCs LAB HEMATOLOGY METHOD 07/22/2025 2:05 PM [facility] Differential Type Automated LAB HEMATOLOGY METHOD 07/22/2025 2:05 PM [facility] Neutrophils % 70 % LAB HEMATOLOGY METHOD 07/22/2025 2:05 PM [facility] Lymphocytes % 18 % LAB HEMATOLOGY METHOD 07/22/2025 2:05 PM [facility] Monocytes % 9 % LAB HEMATOLOGY METHOD 07/22/2025 2:05 PM [facility] Eosinophils % 3 % LAB HEMATOLOGY METHOD 07/22/2025 2:05 PM [facility] Basophils % 0 % LAB HEMATOLOGY METHOD 07/22/2025 2:05 PM [facility] Immature Granulocytes % 0 % LAB HEMATOLOGY METHOD 07/22/2025 2:05 PM [facility] Neutrophils Absolute 4.05 1.60 - 6.10 10*3/uL LAB HEMATOLOGY METHOD 07/22/2025 2:05 PM [facility] Lymphocytes Absolute 1.05(L) 1.20 - 3.90 10*3/uL LAB HEMATOLOGY METHOD 07/22/2025 2:05 PM [facility] Monocytes Absolute 0.50 0.30 - 0.90 10*3/uL LAB HEMATOLOGY METHOD 07/22/2025 2:05 PM [facility] Eosinophils Absolute 0.16 0.00 - 0.50 10*3/uL LAB HEMATOLOGY METHOD 07/22/2025 2:05 PM [facility] Basophils Absolute 0.01 0.00 - 0.10 10*3/uL LAB HEMATOLOGY METHOD 07/22/2025 2:05 PM [facility] Immature Granulocytes Absolute 0.02 0.00 - 0.06 10*3/uL LAB HEMATOLOGY METHOD 07/22/2025 2:05 PM [facility] Blood Venous blood specimen / Unknown Venipuncture / Unknown 07/22/2025 1:31 PM EST 07/22/2025 1:56 PM EST [facility] - 07/22/2025 2:05 PM EST Therapeutic decision making should be based on absolute values, rather than percentages. us Chente Sebastian MD LAB BLOOD ORDERABLES Final Res ult [facility] [address] [place] [address] documented in this encounter Visit Diagnoses Diagnosis Glioblastoma multiforme (CMS/HCC) Malignant neoplasm of brain, unspecified site Exam for clinical research documented in this encounter Additional Health Concerns Assessment Noted Time PHQ-9 Depression Total Score: 6 10/08/19 2:13 PM EST A fall risk assessment has been complete d for the patient 07/22/2025 2:14 PM EST A Body Mass Index follow-up plan has been documented for the patient 07/06/2025 10:36 AM EDT documented as of this encounter Care Teams Tennis Racket Repairer Relationship Specialty Start Date End Date System, Provider Not In, [address] [place] [address] PCP - General Family Medicine 03/23/25 Miguel Perez MD 800 [facility] [address] [place] [address] Consulting Physician Radiation Oncology 04/09/25 Sherin Romero, RN None None Registered Nurse Medical Oncology 07/20/25 documented as of this encounter
--- OUTSIDE RECORDS SUMMARY | 2025-07-22 13:30 | XMS_ITS | Encounter Summary ---
Author Organization Healthcare Address [address] [place] [address] Care Team Providers Care Cone Examiner Name Role Phone System, Provider Not In MD Primary Care Provider Unavailable Miguel Perez MD Unavailable [phone] Sherin Romero RN Unavailable Unavailable Reason for Visit * Reason Comments Follow-up Encounter Details Date Type Department Care Team (Late st Contact Info) Description 07/22/2025 1:30 PM EST Office Visit Pav [facility] [address] , [address] [place] [address] Gabe Cifuentes, MAINTENANCE AND REPAIR WORKER [address] [facility] [address] [place] [address] Glioblastoma multiforme (CMS/HCC) (Primary Dx); 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) Social History Tobacco Use Types Packs/Day Years Used Date Smoking Tobacco: Never Passive Smoke Exposure: Never Smokeless Tobacco: Never Tobacco Cessation:Counseling Given: No Alcohol Use Standard Drinks/Week Comments Never 0 [...] time in the past 12 m [facility], were you homeless or living in a fpc (including now)? No 03/23/2025 CAGE ASSESSMENT Answer [...] drink first t carroll in the morning (EYE-BUSINESS REPORTER) to steady your nerves or to get [...] Sign Reading Time Taken Comments Blood Pressure 145/78 07/22/2025 1:22 PM EST Pulse 71 07/22/2025 1:22 PM EST Temperature 36.4 C (97.5 F) 07/22/2025 1:22 PM EST Respiratory Rate 12 07/22/2025 1:22 PM EST Oxygen Saturation 95% 07/22/2025 1:22 PM EST Inhaled Oxygen Concentration - - Weight 101 kg (221 lb 9 oz) 07/22/2025 1:[address] Height - - Body Mass Index 35.76 07/06/2025 9:55 AM EDT documented in this encounter Functional Status * BP Answer Date of Assessment Author 145/78 07/22/2025 1:22 PM EST Seven Pierson negro * Temp Answer Date of Assessment Author 97.5 07/22/2025 1:22 PM EST Seven Pierson negro * Pulse Answer Date of Assessment Author 71 07/22/2025 1:22 PM EST Seven Pierson negro * Resp Answer Date of Assessment Author 12 07/22/2025 1:22 PM EST Seven Pierson negro * SpO2 Answer Date of Assessment Author 95 07/22/2025 1:22 PM EST Seven Pierson negro * Weight Answer Date of Assessment Author 3545 07/22/2025 1:22 PM EST Seven Pierson negro * Total Weight Change Percent Answer Date of Assessment Author 222107/22/2025 1:22 PM EST Seven Pierson negro * Weight Change Since Preop Answer Date of Assessment Author 100.48 07/22/2025 1:22 PM EST Seven Pierson negro * Weight Change Since Last Visit Answer Date of Assessment Author 100.48 07/22/2025 1:22 PM EST Pierson, Br negro * Weight Change 24 hrs Answer Date of Assessment Author -2.467 07/22/2025 1:22 PM EST Pierson, Br negro * BSA (Calculated - sq m) Answer Date of Assessment Author 2.16 07/22/2025 1:22 PM EST Pierson, Br negro * BMI (Calculated) Answer Date of Assessment Author 35.78 07/22/2025 1:22 PM EST Pierson, Br negro * Restart Vitals Timer Answer Date of Assessment Author Yes 07/22/2025 1:22 PM EST Pierson, Br negro * Weight Change Since Preop Answer Date of Assessment Author 100.5 07/22/2025 1:22 PM EST Pierson, Br negro * Weight Change Since Last Visit Answer Date of Assessment Author -2.6 07/22/2025 1:22 PM EST Pierson, Br negro * Difference in Weight Since Last Visit Answer Date of Assessment Author -2.47 07/22/2025 1:22 PM EST Pierson, Br negro * Temp (in Celsius) for [place] IV Answer Date of Assessment Author 36.4 07/22/2025 1:22 PM EST Pierson, Br negro * Pain Score Answer Date of Assessment Author 4 07/22/2025 1:22 PM EST Pierson, Br negro * Vitals Timer Question Answer Date of Assessment Author Restart Vitals Timer Yes 07/22/2025 1:22 PM E Wade Carree * Pain Screening/Additional Assessments Question Answer Date of Assessment Author Pain Screening/Assessments Pain Screening 07/22/2025 1 :22 PM DARREN Pierson Ariana * Pain Screening Answer Date of Assessment Author 0-10 07/22/2025 1:22 PM EST Pierson, Br negro * BP Answer Date of Assessment Author 145/78 07/22/2025 1:22 PM EST Pierson, Br negro * Temp Answer Date of Assessment Author 97.5 07/22/2025 1:22 PM EST Pierson, Br negro * Pulse Answer Date of Assessment Author 71 07/22/2025 1:22 PM EST Pierson, Br negro * Resp Answer Date of Assessment Author 12 07/22/2025 1:22 PM EST Pierson, Br negro * SpO2 Answer Date of Assessment Author 95 07/22/2025 1:22 PM EST Pierson, Br negro * Weight Answer Date of Assessment Author 3545 07/22/2025 1:22 PM EST Dangelo Br negro * BSA (Calculated - sq m) Answer Date of Assessment Author 2.16 07/22/2025 1:22 PM EST Dangelo Br negro * BMI (Calculated) Answer Date of Assessment Author 35.78 07/22/2025 1:22 PM DARREN Pierson Br negro * Restart Vitals Timer Answer Date of Assessment Author Yes 07/22/2025 1:22 PM EST Dangelo Br negro * Pain Score Answer Date of Assessment Author 4 07/22/2025 1:22 PM DARREN Pierson Br negro * Learning Needs Screening Question Answer Date of Assessment Author Are there things (barriers) that make it harder for this patient to learn? No Barriers 07/22/2025 1:24 PM Ariana De La Vega What is the best language to use for teaching this patient about his/her health? Uzbek 07/22/2025 1:24 PM Ariana De La Vega What format does this patient think is most helpful for learning? Listening;Reading;Demon stration 07/22/2025 1:24 PM Ariana De La Vega Primary Learner Patient 07/22/2025 1:24 PM Ariana Hernandez ams * Readiness to Learn Question Answer Date of Assessment Author Readiness Acceptance 07/22/2025 1:24 PM Ariana De La Vega documented as of this encounter Mental Status * BP Answer Entry Date Author 145/78 07/22/2025 1:22 PM Seven De La Vega negro * Temp Answer Entry Date Author 97.5 07/22/2025 1:22 PM Seven De La Vega negro * Pulse Answer Entry Date Author 71 07/22/2025 1:22 PM EST Dangelo Br negro * Resp Answer Entry Date Author 12 07/22/2025 1:22 PM EST Seven Pierson negro * SpO2 Answer Entry Date Author 95 07/22/2025 1:22 PM EST Seven Pierson negro * Weight Answer Entry Date Author 35407/22/2025 1:22 PM EST Dangelo Br negro * Total Weight Change Percent Answer Entry Date Author 222107/22/2025 1:22 PM EST Dangelo Br negro * Weight Change Since Preop Answer Entry Date Author 100.48 07/22/2025 1:22 PM EST Dangelo Br negro * Weight Change Since Last Visit Answer Entry Date Author 100.48 07/22/2025 1:22 PM EST Seven Pierson negro * Weight Change 24 hrs Answer Entry Date Author -2.467 07/22/2025 1:22 PM EST Seven Pierson negro * Patient reported weight Answer Entry Date [...] B 07/15/2025 9:58 AM EST Mychart, Generic * BSA (Calculated - sq m) Answer Entry Date Author 2.16 07/22/2025 1:22 PM EST Pierson, Br negro * BMI (Calculated) Answer Entry Date Author 35.78 07/22/2025 1:22 PM EST Pierson, Br negro * Restart Vitals Timer Answer Entry Date Author Yes 07/22/2025 1:22 PM EST Pierson, Br negro * Restart Pain Assessment Timer Answer Entry Date Author Yes 07/22/2025 1:22 PM EST Pierson, Br negro * Weight Change Since Preop Answer Entry Date Author 100.5 07/22/2025 1:22 PM EST Pierson, Br negro * Weight Change Since Last Visit Answer Entry Date Author -2.6 07/22/2025 1:22 PM EST Pierson, Br negro * Difference in Weight Since Last Visit Answer Entry Date Author -2.47 07/22/2025 1:22 PM EST Pierson, Br negro * Temp (in Celsius) for [place] IV Answer Entry Date Author 36.4 07/22/2025 1:22 PM EST Pierson, Br negro * Pain Score Answer Entry Date Author 4 07/22/2025 1:22 PM EST Pierson, Br negro * Vitals Timer Question Answer Entry Date Author Restart Vitals Timer Yes 07/22/2025 1:[address] Dangelo, Ariana * Pain Screening Answer Entry Date Author 0-10 07/22/2025 1:22 PM EST Pierson, Br negro documented in this encounter Miscellaneous Notes * Progress Notes - Gabe Cifuentes, MAINTENANCE AND REPAIR WORKER - 07/22/2025 1:30 PM EST NEURO ONCOLOGY FOLLOW-UP NOTE Patient Information Patient Name: Herminia Murrell Date of : 1960 Encounter Date: 07/22/25 Treatment Diagnosis: GBM, with EGFR amplification, TERT [...] 07/01/25 TMZ maintenance C1: 06/08-06/12/25 C2: 07/06-07/10/25 Today, reports visual changes with near vision, no longer able to read close up but still able to drive. No seizures or fevers. Reports ongoing loose stools 1-4 times per day since last infusion. Balance stable. No HARPER. Past Medical, Surgical, Family and Social History Reviewed in this encounter by me personally Subjective Review of Systems: Rest of 14 point organ based review of system was conducted and pertinent negatives and positives are placed in the HPI. Objective Performance Status 80% Visit Vitals BP (!) 145/78 Pulse 71 Temp 36.4 ??C (97.5 ??F) Resp 12 EXAM Physical Exam Constitutional: Appearance: She is [...] personally Lab Results Component Value Date BUN 16 07/22/2025 CL 103 07/22/2025 NA 140 07/22/2025 K 3.9 07/22/2025 TP 7.1 07/22/2025 AST 16 07/22/2025 ALT 17 07/22/2025 @NEUTOPHILPCT@ Lab Results Component Value Date WBC 5.79 07/22/2025 HGB 13.2 07/22/2025 HCT 41.4 07/22/2025 MCV 85 07/22/2025 PLT 266 07/22/2025 Assessment/Plan Herminia Murrell is a 65 y.o. [...] (today) TMZ maintenance C1: 06/08-06/12/25 C2: 07/06-07/10/25 MRI Brain last on 05-22-25; images reviewed [...] well and will con't with study therapy #Right LE DVT -Positive US 07/01/25 -continue eliquis #Diarrhea -G1, not likely IO induced -instructed to call if frequency worsens Decreased appetite. Reports decreased appetite and some weight loss, with clothes not fitting as well. Currently consuming one Ensure drink daily and trying to eat healthier, including a keto diet. Offered the option ofconsulting with a dietitian or using an appetite stimulant, but prefers to try improving diet first. If appetite does not improve, further interventions will be considered. Gabe Cifuentes DNP, [facility] [address] [facility] [address] No referring provider defined for this encounter * Progress Notes - Rickie Wagner, PharmD - 07/22/2025 1:30 PM EST Pharmacy Hematology/Oncology Treatment Note Herminia Murrell is a 65 y.o. female with GBM (MGMT+, IDH wt) Cancer Staging Glioblastoma multiforme (CMS/HCC) Staging form: High Grade Glioma - Clinical stage from 04/02/2025: Histology: Glioblastoma multiforme, Location: Temporal lobe - Signed by Miguel Perez MD on 04/02/2025 Study Patient: Yes [id number]: A Phase 3, Randomized, Double-Blind, Placebo-Controlled Study of Optune?? (TTFields, 200 kHz) Concomitant with Maintenance Temozolomide and Pembrolizumab Versus Optune?? Concomitant with Maintenance Temozolomide and Placebo for the Treatment of Newly Diagnosed Glioblastoma (EF-41/KEYNOTE D58) Treatment Plan reviewed for GBM-16 Pembrolizumab or Placebo Every 21 Days / Temozolomide maintenance Every 28 Days [x] Follow-Up Clinical Review for Cycle 3 Pembro or Placebo [x] Follow-Up Clinical Review for Cycle 3 TMZ maintenance Interval History: Patient is s/p [...] per GBM-16. TMZ maintenance supply received from [facility] for start of Cycle 1, scheduled for 06/08/25. Labs have been reviewed and are appropriate for treatment on 06/08. 07/01/25: Patient tolerated first adjuvant TMZ maintenance cycle. Labs have been reviewed and are appropriate for next cycle. Will increase TMZ to 200 mg/m2/dose with cycle 2 forward. Updated prescription sent to [facility] today. Labs appropriate for infusion today. Today's Wt: Wt Readings from Last 1 Encounters: 07/22/25 100 kg (221 lb 1.9 oz) Dosing Wt: 103 kg Dosing Ht: 167.6 cm DosingBSA: 2.11 m2 Recent Labs: Lab Results Component Value Date WBC 5.79 07/22/2025 NEUTROABS 4.05 07/22/2025 LYMPHSABS 1.05 (L) 07/22/2025 HGB 13.2 07/22/2025 PLT 266 07/22/2025 Lab Results Component Value Date GLUCOSE 109 (H) 07/22/2025 CALCIUM 9.5 07/22/2025 NA 140 07/22/2025 K 3.9 07/22/2025 CO2 24 07/22/2025 CL 103 07/22/2025 BUN 16 07/22/2025 CREATININE 0.66 07/22/2025 Lab Results Component Value Date ALT 17 07/22/2025 AST 16 07/22/2025 ALKPHOS 82 07/22/2025 BILITOT 0.5 07/22/2025 Vitals: Visit Vitals BP (!) 145/78 Pulse 71 Temp 36.4 ??C (97.5 ??F) Resp 12 Other Relevant Monitoring: none Treatment/Therapy Plan: Pembrolizumab 200 mg [flat dose] or Placebo IV on day 1 Every 21 Days + TTFields/Optune Device + Temozolomide 420 mg (140 mg cap x 3; ~199 mg/m2/dose) orally once nightly on days 1-5 Every 28 Days [x] No dose adjustments made Rx sent to: [facility] Refills due: if continued beyond 12 maintenance cycles Current Treatment Plan History: GBM-16 Pembro or Placebo C1: 06/08/25 C2: 07/01/25 C3: 07/22/25 TMZ maintenance C1: 06/08-06/12/25 C2: 07/06-07/10/25 C3: 08/03-08/07/25 Prior Treatment History: Concurrent TMZ+XRT (03/30-05/08/25) Plan: Patient will return to clinic in 3 weeks with next infusion. Will follow-up at that time. Pharmacist Attestation: Rickie Wagner, Velma Clinical Oncology Pharmacist documented in this encounter Plan of Treatment Upcoming Encounters Date Type Department Care Team (Late st Contact Info) Description 09/21/2025 9:15 AM EST Clinical Support Pav [facility] Res[facility] [address] [facility], [address]nd [place] [address] 09/21/2025 9:30 AM EST Office Visit Pav [facility] Head[facility] Neck [facility] Respiratory [address] [facility], [address]nd [place] [address] Gabe Cifuentes, MAINTENANCE AND REPAIR WORKER [address] [facility] [address] [place] [address] 09/21/2025 11:00 AM EST Appointment [facility] [address] [place] [address] 10/05/2025 9:00 AM EST Office Visit [facility] [address], [address] [place] [id number] Sanchez Zaldivar MD [address] [place] [address] 10/05/2025 11:00 AM EST Consult [facility] [address], [address] [place] [address] Shy Marquez, MAINTENANCE AND REPAIR WORKER [address] [place] [address] 10/12/2025 8:30 AM EST Appointment P[facility] S Radiology [address] [place] [address] documented as of this encounter Results * T4, free (08/10/2025 2:20 PM EST) Free T4, Plasma 1.2 0.8 - 1.7 ng/dL 08/10/2025 3:12 PM EST [facility] Blood Venous blood specimen / Unknown Venipuncture / Unknown 08/10/2025 2:20 PM EST 08/10/2025 2:35 PM EST us Chente Sebastian MD LAB BLOOD ORDERABLES Final Res ult [facility] [address] [place] [address] * T3, Serum (08/10/2025 2:20 PM EST) T3, Serum 105 87 - 187 ng/dL 08/10/2025 3:12 PM EST [facility] Blood Venous blood specimen / Unknown Venipuncture / Unknown 08/10/2025 2:20 PM EST 08/10/2025 2:35 PM EST us Chente Sebastian MD LAB BLOOD ORDERABLES Final Res ult Performing Organization Address City/[facility]/[place] [address] * TSH (08/10/2025 2:20 PM EST) Thyroid Stimulating Hormone, Plasma 2.20 0.40 - 4.20 uIU/mL 08/10/2025 3:[address] [facility] Blood Venous blood specimen / Unknown Venipuncture / Unknown 08/10/2025 2:20 PM EST 08/10/2025 2:35 PM EST us Chente Sebastian MD LAB BLOOD ORDERABLES Final Res ult Performing Organization Address City/[facility]/ZIP Co de Phone Number [facility] [address] [place] [address] * (ABNORMAL) Comprehensive metabolic panel (08/10/2025 2:20 PM EST) Glucose, Plasma 128(H) 74 - 99 mg/dL 08/10/2025 3:12 PM [facility] BUN, Plasma 12 8 - 23 mg/dL 08/10/2025 3:12 PM [facility] Creatinine, Plasma 0.65 0.60 - 1.10 mg/dL 08/10/2025 3:12 PM [facility] BUN/Creatinine Ratio 18 08/10/2025 3:12 PM [facility] Sodium, Plasma 140 136 - 145 mmol/L 08/10/2025 3:12 PM [facility] Potassium, Plasma 3.5(L) 3.6 - 4.9 mmol/L 08/10/2025 3:12 PM [facility] Chloride, Plasma 103 97 - 107 mmol/L 08/10/2025 3:12 PM [facility] CO2, Plasma 27 22 - 29 mmol/L 08/10/2025 3:12 PM [facility] Anion Gap 10 6 - 16 mmol/L 08/10/2025 3:12 PM [facility] Total Calcium, Plasma 9.3 8.9 - 10.2 mg/dL 08/10/2025 3:12 PM [facility] Total Protein 6.8 6.3 - 7.9 g/dL 08/10/2025 3:12 PM [facility] Albumin, Plasma 4.0 3.5 - 5.2 g/dL 08/10/2025 3:12 PM [facility] AST, Plasma 14 10 - 35 U/L 08/10/2025 3:12 PM [facility] ALT, Plasma 15 10 - 35 U/L 08/10/2025 3:12 PM [facility] Alkaline Phosphatase, Plasma 68 46 - 142 U/L 08/10/2025 3:12 PM [facility] Total Bilirubin, Plasma 0.3 0.2 - 1.1 mg/dL 08/10/2025 3:12 PM [facility] eGFRcr 96.6 mL/min/1.7 3m*2 08/10/2025 3:12 PM [facility] Comment:Reported eGFRcr in m L/min/1.73m2 is based the CKD-EPI 2020 equation that does not use a race coefficient. Blood Venous blood specimen / Unknown Venipuncture / Unknown 08/10/2025 2:20 PM EST 08/10/2025 2:35 PM EST us Chente Sebastian MD LAB BLOOD ORDERABLES Final Res ult [facility] [address] [place] [address] * (ABNORMAL) CBC and differential (08/10/2025 2:20 PM EST) WBC Count 4.89 3.70 - 10.30 10*3/uL LAB HEMATOLOGY METHOD 08/10/2025 2:49 PM EST [facility] RBC Count 4.65 3.90 - 5.20 10*6/uL LAB HEMATOLOGY METHOD 08/10/2025 2:49 PM EST [facility] HGB 12.8 11.2 - 15.7 g/dL LAB HEMATOLOGY METHOD 08/10/2025 2:49 PM EST [facility] HCT 39.0 34.0 - 45.0 % LAB HEMATOLOGY METHOD 08/10/2025 2:49 PM EST [facility] Platelet Count 259 155 - 369 10*3/uL LAB HEMATOLOGY METHOD 08/10/2025 2:49 PM EST [facility] MCV 84 79 - 98 fL LAB HEMATOLOGY METHOD 08/10/2025 2:49 PM EST [facility] MCH 27.5 26.0 - 32.0 pg LAB HEMATOLOGY METHOD 08/10/2025 2:49 PM EST [facility] MCHC 32.8 30.7 - 35.5 g/dL LAB HEMATOLOGY METHOD 08/10/2025 2:49 PM EST [facility] RDW 14.2 11.5 - 14.5 % LAB HEMATOLOGY METHOD 08/10/2025 2:49 PM EST [facility] MPV 9.9 8.8 - 12.5 fL LAB HEMATOLOGY METHOD 08/10/2025 2:49 PM EST [facility] nRBC 0.0 <=0.0 per 100 WBCs LAB HEMATOLOGY METHOD 08/10/2025 2:49 PM EST [facility] Differential Type Automated LAB HEMATOLOGY METHOD 08/10/2025 2:49 PM EST [facility] Neutrophils % 75 % LAB HEMATOLOGY METHOD 08/10/2025 2:49 PM EST [facility] Lymphocytes % 14 % LAB HEMATOLOGY METHOD 08/10/2025 2:49 PM EST [facility] Monocytes % 9 % LAB HEMATOLOGY METHOD 08/10/2025 2:49 PM EST [facility] Eosinophils % 2 % LAB HEMATOLOGY METHOD 08/10/2025 2:49 PM EST [facility] Basophils % 0 % LAB HEMATOLOGY METHOD 08/10/2025 2:49 PM EST [facility] Immature Granulocytes % 0 % LAB HEMATOLOGY METHOD 08/10/2025 2:49 PM EST [facility] Neutrophils Absolute 3.59 1.60 - 6.10 10*3/uL LAB HEMATOLOGY METHOD 08/10/2025 2:49 PM EST [facility] Lymphocytes Absolute 0.69(L) 1.20 - 3.90 10*3/uL LAB HEMATOLOGY METHOD 08/10/2025 2:49 PM EST [facility] Monocytes Absolute 0.46 0.30 - 0.90 10*3/uL LAB HEMATOLOGY METHOD 08/10/2025 2:49 PM EST [facility] Eosinophils Absolute 0.11 0.00 - 0.50 10*3/uL LAB HEMATOLOGY METHOD 08/10/2025 2:49 PM EST [facility] Basophils Absolute 0.02 0.00 - 0.10 10*3/uL LAB HEMATOLOGY METHOD 08/10/2025 2:49 PM EST [facility] Immature Granulocytes Absolute 0.02 0.00 - 0.06 10*3/uL LAB HEMATOLOGY METHOD 08/10/2025 2:49 PM EST [facility] Blood Venous blood specimen / Unknown Venipuncture / Unknown 08/10/2025 2:20 PM EST 08/10/2025 2:39 PM EST [facility] - 08/10/2025 2:49 PM EST Therapeutic decision making should be based on absolute values, rather than percentages. us Chente Sebastian MD LAB BLOOD ORDERABLES Final Res ult [facility] [address] [place] [address] documented in this encounter Visit Diagnoses Diagnosis Glioblastoma multiforme (CMS/HCC)- Primary Malignant neoplasm of brain, unspecified site 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) documented in this encounter Additional Health Concerns Assessment Noted Time PHQ-9 Depression Total Score: 6 10/08/19 2:13 PM EST A fall risk assessment has been complete d for the patient 07/22/2025 2:14 PM EST A Body Mass Index follow-up plan has been documented for the patient 07/06/2025 10:36 AM EDT documented as of this encounter Care Teams Cone Examiner Relationship Specialty Start Date End Date System, Provider Not In, [address] [place] [id number] PCP - General Family Medicine 03/23/25 Miguel Perez MD [address] [place] [address] [id number] [place] [address] Consulting Physician Radiation Oncology 04/09/25 Sherin Romero RN None None Registered Nurse Medical Oncology 07/20/25 documented as of this encounter
--- OUTSIDE RECORDS SUMMARY | 2025-07-22 14:10 | XMS_ITS | Encounter Summary ---
Author Organization Healthcare Address [address] [place] [address] Care Team Providers Care Arcade Game Technician Name Role Phone System, Provider Not In MD Primary Care Provider Unavailable Miguel Perez MD Unavailable [phone] Sherin Romero RN Unavailable Unavailable Reason for Visit * Episode Based Medications (Routine) - Authorized Specialty Diagnoses / Procedures Referred By Génesis t Referred To Contact Diagnoses Glioblastoma multiforme (CMS/HCC) Procedures [id number]: Pembrolizumab or Placebo + Optune Every 21 Days / Temozolomide Every 28 Days Chente Sebastian MD 800 [facility] [address] [address] Phone: tel: fax: Chente Sebastian MD 800 [facility] [address] [address] Phone: tel: fax: Referral ID Status Reason Start Date Expiration Date V isits Requested Visits Authorized [id number] Authorized 05/29/2025 11/28/2026 1 1 Encounter Details Date Type Department Care Team (Latest Contact Info) Description 07/22/2025 2:10 PM EST - 07/22/2025 11:59 PM [facility] Hospital Encounter [facility] 800 [place] [phone] Glioblastoma multiforme (CMS/HCC) (Primary Dx) Discharge Disposition: [...] time in the past 12 m [facility], were you homeless or living in a [...] drink first t carroll in the morning (EYE-NEGATIVE DEVELOPER) to steady your nerves or to get [...] 2:14 PM EST documented in this encounter Functional Status * BP Answer Date of Assessment Author 131/82 07/22/2025 2:14 PM EST Yessenia Crum * Temp Answer Date of Assessment Author 98.1 07/22/2025 2:14 PM EST Yessenia Crum * Temp src Answer Date of Assessment Author Oral 07/22/2025 2:14 PM EST Yessenia Crum * Pulse Answer Date of Assessment Author 72 07/22/2025 2:14 PM EST Yessenia Crum * Resp Answer Date of Assessment Author 18 07/22/2025 2:14 PM EST Yessenia Crum * SpO2 Answer Date of Assessment Author 95 07/22/2025 2:14 PM EST Yessenia Crum * Height Answer Date of Assessment Author 66 07/22/2025 2:14 PM EST Yessenia Crum * Weight Answer Date of Assessment Author 3537.94 07/22/2025 2:14 PM EST Yessenia Crum * BMI (Calculated) Answer Date of Assessment Author 35.8 07/22/2025 2:14 PM EST Yessenia Crum * Percent Excess Weight Loss Answer Date of Assessment Author 0 07/22/2025 2:14 PM EST Yessenia Crum * Total Weight Change Percent Answer Date of Assessment Author 2222 07/22/2025 2:14 PM EST Yessenia Crum * Weight Change Since Preop Answer Date of Assessment Author 100.28 07/22/2025 2:14 PM EST Yessenia Crum * Initial Excess Weight Answer Date of Assessment Author -58.97 07/22/2025 2:14 PM EST Yessenia Crum * IBW in lbs (Bariatric) Answer Date of Assessment Author 130 07/22/2025 2:14 PM EST Yessenia Crum * Weight Change Since Last Visit Answer Date of Assessment Author 100.28 07/22/2025 2:14 PM EST Yessenia Crum * IBW in kg (Bariatric) Answer Date of Assessment Author 58.97 07/22/2025 2:14 PM EST Yessenia Crum * Percent of IBW Answer Date of Assessment Author 5,999.56 07/22/2025 2:14 PM EST Yessenia Crum * EBW (kg) Answer Date of Assessment Author 3,536.27 07/22/2025 2:14 PM EST Yessenia Crum * EBW (lbs) Answer Date of Assessment Author 3,529.82 07/22/2025 2:14 PM EST Yessenia Crum * Weight Change 24 hrs Answer Date of Assessment Author -2.667 07/22/2025 2:14 PM EST Yessenia Crum * BSA (Calculated - sq m) Answer Date of Assessment Author 2.16 07/22/2025 2:14 PM EST Yessenia Crum * BMI (Calculated) Answer Date of Assessment Author 35.71 07/22/2025 2:14 PM EST Yessenia Crum * IBW/kg (Calculated) Male Answer Date of Assessment Author 63.8 07/22/2025 2:14 PM EST Yessenia Crum * IBW/kg (Calculated) Female Answer Date of Assessment Author 59.3 07/22/2025 2:14 PM EST Yessenia Crum * Chemotherapy Nursing Assessment Question Answer Date of Assessment Author Progress Note Infusion completed, no s/s of distress noted. Stable at this time of discharge. 07/22/2025 3:48 PM EST Alma Yusuf, RN * Restart Vitals Timer Answer Date of Assessment Author Yes 07/22/2025 2:14 PM EST Yessenia Crum * IBW/kg (Calculated) Answer Date of Assessment Author 59.3 07/22/2025 2:14 PM EST Yessenia Crum * Weight in (lb) to have BMI = 25 Answer Date of Assessment Author 154.6 07/22/2025 2:14 PM EST Yessenia Crum * BMI (Calculated) Answer Date of Assessment Author 35.8 07/22/2025 2:14 PM EST Yessenia Crum * Percent Excess Weight Loss Answer Date of Assessment Author 0 07/22/2025 2:14 PM EST Yessenia Crum * Weight Change Since Preop Answer Date of Assessment Author 100.3 07/22/2025 2:14 PM EST Yessenia Crum * Initial Excess Weight Answer Date of Assessment Author -58.97 07/22/2025 2:14 PM EST Yessenia Crum * IBW in kg (Bariatric) Answer Date of Assessment Author 58.97 07/22/2025 2:14 PM EST Yessenia Crum * IBW in lb (Bariatric) Answer Date of Assessment Author 130 07/22/2025 2:14 PM EST Yessenia Crum * Weight Change Since Last Visit Answer Date of Assessment Author -0.2 07/22/2025 2:14 PM EST Yessenia Crum * Percent of IBW Answer Date of Assessment Author 170.09 07/22/2025 2:14 PM EST Yessenia Crum * EBW (kg) Answer Date of Assessment Author 41.31 07/22/2025 2:14 PM EST Yessenia Crum * EBW (lb) Answer Date of Assessment Author 91.12 07/22/2025 2:14 PM EST Yessenia Crum * Difference in Weight Since Last Visit Answer Date of Assessment Author -0.2 07/22/2025 2:14 PM EST Yessenia Crum * Temp (in Celsius) for VENETIE IV Answer Date of Assessment Author 36.7 07/22/2025 2:14 PM EST Yessenia Crum * IBW/kg (Calculated) Answer Date of Assessment Author 59.3 07/22/2025 2:14 PM EST Yessenia Crum * Adult Low Range Vt 6mL/kg Answer Date of Assessment Author 355.8 07/22/2025 2:14 PM EST Yessenia Crum * Adult Moderate Range Vt 8mL/kg Answer Date of Assessment Author 474.4 07/22/2025 2:14 PM EST Yessenia Crum * Adult High Range Vt 10mL/kg Answer Date of Assessment Author 593 07/22/2025 2:14 PM EST Yessenia Crum * Pain Score Answer Date of Assessment Author 4 07/22/2025 2:14 PM EST Yessenia Crum * Vitals Timer Question Answer Date of Assessment Author Restart Vitals Timer Yes 07/22/2025 2:[address] Yessenia Crum * Pain Screening/Additional Assessments Question Answer Date of Assessment Author Pain Screening/Assessments Pain Screening 07/22/2025 2 :14 PM EST Yessenia Crum * Pain Screening Answer Date of Assessment Author 0-10 07/22/2025 2:14 PM EST Yessenia Crum * BP Answer Date of Assessment Author 131/82 07/22/2025 2:14 PM EST Yessenia Crum * Temp Answer Date of Assessment Author 98.1 07/22/2025 2:14 PM EST Yessenia Crum * Temp src Answer Date of Assessment Author Oral 07/22/2025 2:14 PM EST Yessenia Crum * Pulse Answer Date of Assessment Author 72 07/22/2025 2:14 PM EST Yessenia Crum * Resp Answer Date of Assessment Author 18 07/22/2025 2:14 PM EST Yessenia Crum * SpO2 Answer Date of Assessment Author 95 07/22/2025 2:14 PM EST Yessenia Crum * Height Answer Date of Assessment Author 66 07/22/2025 2:14 PM EST Yessenia Crum * Weight Answer Date of Assessment Author 3537.94 07/22/2025 2:14 PM EST Yessenia Crum * BSA (Calculated - sq m) Answer Date of Assessment Author 2.16 07/22/2025 2:14 PM EST Yessenia Crum * BMI (Calculated) Answer Date of Assessment Author 35.71 07/22/2025 2:14 PM EST Yessenia Crum * Restart Vitals Timer Answer Date of Assessment Author Yes 07/22/2025 2:14 PM EST Yessenia Crum * Weight in (lb) to have BMI = 25 Answer Date of Assessment Author 154.6 07/22/2025 2:14 PM EST Yessenia Crum * Pain Score Answer Date of Assessment Author 4 07/22/2025 2:14 PM Yessenia Ridley documented as of this encounter Mental Status * BP Answer Entry Date Author 131/82 07/22/2025 2:14 PM EST Yessenia Crum * Temp Answer Entry Date Author 98.1 07/22/2025 2:14 PM EST Yessenia Crum * Temp src Answer Entry Date Author Oral 07/22/2025 2:14 PM EST Yessenia Crum * Pulse Answer Entry Date Author 72 07/22/2025 2:14 PM EST Yessenia Crum * Resp Answer Entry Date Author 18 07/22/2025 2:14 PM EST Yessenia Crum * SpO2 Answer Entry Date Author 95 07/22/2025 2:14 PM EST Yessenia Crum * Height Answer Entry Date Author 66 07/22/2025 2:14 PM EST Yessenia Crum * Weight Answer Entry Date Author 3537.94 07/22/2025 2:14 PM EST Yessenia Crum * BMI (Calculated) Answer Entry Date Author 35.8 07/22/2025 2:14 PM EST Yessenia Crum * Percent Excess Weight Loss Answer Entry Date Author 0 07/22/2025 2:14 PM EST Yessenia Crum * Total Weight Change Percent Answer Entry Date Author 2222 07/22/2025 2:14 PM EST Yessenia Crum * Weight Change Since Preop Answer Entry Date Author 100.28 07/22/2025 2:14 PM EST Yessenia Crum * Initial Excess Weight Answer Entry Date Author -58.97 07/22/2025 2:14 PM EST Yessenia Crum * IBW in lbs (Bariatric) Answer Entry Date Author 130 07/22/2025 2:14 PM EST Yessenia Crum * Weight Change Since Last Visit Answer Entry Date Author 100.28 07/22/2025 2:14 PM EST Yessenia Crum * IBW in kg (Bariatric) Answer Entry Date Author 58.97 07/22/2025 2:14 PM EST Yessenia Crum * Percent of IBW Answer Entry Date Author 5,999.56 07/22/2025 2:14 PM EST Yessenia Crum * EBW (kg) Answer Entry Date Author 3,536.27 07/22/2025 2:14 PM EST Yessenia Crum * EBW (lbs) Answer Entry Date Author 3,529.82 07/22/2025 2:14 PM EST Yessenia Crum * Weight Change 24 hrs Answer Entry Date Author -2.667 07/22/2025 2:14 PM EST Yessenia Crum * BSA (Calculated - sq m) Answer Entry Date Author 2.16 07/22/2025 2:14 PM EST Yessenia Crum * BMI (Calculated) Answer Entry Date Author 35.71 07/22/2025 2:14 PM EST Yessenia Crum * IBW/kg (Calculated) Male Answer Entry Date Author 63.8 07/22/2025 2:14 PM EST Yessenia Crum * IBW/kg (Calculated) Female Answer Entry Date Author 59.3 07/22/2025 2:14 PM EST Yessenia Crum * Restart Vitals Timer Answer Entry Date Author Yes 07/22/2025 2:14 PM EST Yessenia Crum * IBW/kg (Calculated) Answer Entry Date Author 59.3 07/22/2025 2:14 PM EST Yessenia Crum * Restart Pain Assessment Timer Answer Entry Date Author Yes 07/22/2025 2:14 PM Yessenia Ridley * Weight in (lb) to have BMI = 25 Answer Entry Date Author 154.6 07/22/2025 2:14 PM EST Yessenia Crum * BMI (Calculated) Answer Entry Date Author 35.8 07/22/2025 2:14 PM EST Yessenia Crum * Percent Excess Weight Loss Answer Entry Date Author 0 07/22/2025 2:14 PM Yessenia Ridley * Weight Change Since Preop Answer Entry Date Author 100.3 07/22/2025 2:14 PM Yessenia Ridley * Initial Excess Weight Answer Entry Date Author -58.97 07/22/2025 2:14 PM Yessenia Ridley * IBW in kg (Bariatric) Answer Entry Date Author 58.97 07/22/2025 2:14 PM EST Yessenia Crum * IBW in lb (Bariatric) Answer Entry Date Author 130 07/22/2025 2:14 PM Yessenia Ridley * Weight Change Since Last Visit Answer Entry Date Author -0.2 07/22/2025 2:14 PM Yessenia Ridley * Percent of IBW Answer Entry Date Author 170.09 07/22/2025 2:14 PM EST Yessenia Crum * EBW (kg) Answer Entry Date Author 41.31 07/22/2025 2:14 PM Yessenia Ridley * EBW (lb) Answer Entry Date Author 91.12 07/22/2025 2:14 PM EST Yessenia Crum * Difference in Weight Since Last Visit Answer Entry Date Author -0.2 07/22/2025 2:14 PM Yessenia Ridley * Temp (in Celsius) for VENETIE IV Answer Entry Date Author 36.7 07/22/2025 2:14 PM EST Yessenia Crum * IBW/kg (Calculated) Answer Entry Date Author 59.3 07/22/2025 2:14 PM Yessenia Ridley * Adult Low Range Vt 6mL/kg Answer Entry Date Author 355.8 07/22/2025 2:14 PM Yessenia Ridley * Adult Moderate Range Vt 8mL/kg Answer Entry Date Author 474.4 07/22/2025 2:14 PM Yessenia Ridley * Adult High Range Vt 10mL/kg Answer Entry Date Author 593 07/22/2025 2:14 PM Yessenia Ridley * Pain Score Answer Entry Date Author 4 07/22/2025 2:14 PM Yessenia Ridley * Vitals Timer Question Answer Entry Date Author Restart Vitals Timer Yes 07/22/2025 2:14 PM E Yessenia Rouse * Pain Screening Answer Entry Date Author 0-10 07/22/2025 2:14 PM Yessenia Ridley documented in this encounter Medications at Time of Discharge Acetaminophen Extra Strength 500 MG tablet TAKE TWO TABLETS BY MOUTH EVERY 6 HOURS NEEDED FOR PAIN 100 tablet 1 06/15/2025 ascorbic acid (Vitamin C) 500 MG tablet Take 1 tablet by mouth daily. 06/01/2025 Ascorbic Acid 14763 MG/30ML solution Infuse 87.5 g into a [...] every 28 days 15 capsule 10 07/01/2025 08/25/2025 documented as of this encounter Plan of Treatment Upcoming Encounters Date Type Department Care Team (Late st Contact Info) Description 09/21/2025 9:15 AM EST Clinical Support [facility] 800 [facility] [address] [place] [address] 09/21/2025 9:30 AM EST Office Visit [facility] 800 [facility], [address]nd [place] [address] Gabe Cifuentes, JEFFREY 800 [facility] Liy[address] Conde [facility] [address] [place] [address] 09/21/2025 11:00 AM EST Appointment [facility] 800 [place] [address] 10/05/2025 9:00 AM EST Office Visit [place] [facility] [address], [address] [place] [address] Sanchez Zaldivar MD [address] [facility] [address] [place] [address] 10/05/2025 11:00 AM EST Consult [place] [facility] [address], [address] [place] [address] Shy Marquez, DUST PULLER [address] [place] [address] 10/12/2025 8:30 AM EST Appointment [facility] S Radiology [address]st [place] [address] documented as of this encounter Visit [...] documented as of this encounter Care Teams Arcade Game Technician Relationship Specialty Start Date End Date System, Provider Not In, [place] [address] PCP - General Family Medicine 03/23/25 Miguel Perez MD [address] [facility] [address] [place] [address] Consulting Physician Radiation Oncology 04/09/25 Sherin Romero, SKY None None Registered Nurse Medical Oncology 07/20/25 documented as of this encounter
--- OUTSIDE RECORDS SUMMARY | 2025-08-10 | XMS_ITS | Encounter Summary ---
Author Organization Healthcare Address [address] [place] [address] Care Team Providers Care Brimmer Blocker Name Role Phone System, Provider Not In MD Primary Care Provider Unavailable Miguel Perez MD Unavailable [phone] Sherin Romero RN Unavailable Unavailable Encounter Details Date Type Department Care Team (Latest Contact Info) Description 08/10/2025 - 08/10/2025 7:55 AM [facility] Hospital Encounter Image Record Center [address] [place] [address] Glioblastoma multiforme (CMS/HCC); Exam for clinical research [...] living in a half-way (including now)? No 03/23/2025 CAGE ASSESSMENT Answer [...] drink first t carroll in the morning (EYE-SALES INTERN) to steady your nerves or to get [...] tablet by mouth daily. 06/01/2025 Ascorbic Acid 57315 MG/30ML solution Infuse 87.5 g into a [...] [facility] [address] [phone] 09/21/2025 9:30 AM EST Office Visit [facility] 800 [facility], [address] [place] [address] Gabe Cifuentes, WOODWORKING BENCH CARPENTER 800 [facility] Liyah Conde [facility] [address] [place] [address] 09/21/2025 11:00 AM EST Appointment [facility] 800 [place] [address] 10/05/2025 9:00 AM EST Office Visit [facility] [address], [address] [place] [address] Sanchez Zaldivar MD [address] [facility] [address] [place] [address] 10/05/2025 11:00 AM EST Consult [facility] [address] [place] [address] Shy Marquez, JFEFREY [address] [facility] [address] [place] [address] 10/12/2025 8:30 AM EST Appointment [facility] [address] [place] [address] documented as of this encounter Procedures Procedure Name Priority Date/Time Associated Diagnosis Comments RADIOLOGY RESEARCH REPORT REQUEST Routine 08/10/2025 12:00 AM EST Glioblastoma multiforme (CMS/HCC) Exam for clinical research documented in this encounter Results * Radiology Research Report Request Other; RANO 2.0 (08/10/2025 12:00 AM EST) Anatomical Region Laterality Modality Other Addenda Addendum by Tanner Stubbs MD on 08/31/2025 10:21 AM EST The new adjacent enhancement is non-mass enhancement along the surgical resection tract and is considered non-target at this time. Narrative 08/19/2025 9:17 AM EST Research read for Date: 08/10/2025 Study: MRI Head with/without contrast Original exam date: 08/10/2025 Type of specific read needed: Other Specific instructions: RANO 2.0 Is this a baseline or follow-up research? Follow-up Research Study Name: GBM-16 Name of the Fur Mixer Operator: Dr. Chente Sebastian Correspondence email: [email or web address] Was this trial started before Sep 10, 2022? [facility] release only [2] Reason for preventing [...] a Simple research read. Chente Sebastian MD [facility] RESEARCH ORDERABLES Edited Result - Final documented in this encounter Visit Diagnoses Diagnosis [...] documented as of this encounter Care Teams Brimmer Blocker Relationship Specialty Start Date End Date System, Provider Not In, [address] [place] [address] PCP - General Family Medicine 03/23/25 Miguel Perez MD [address] [place] [address] [address] [place] [address] Consulting Physician Radiation Oncology 04/09/25 Sherin Romero, RN None None Registered Nurse Medical Oncology 07/20/25 documented as of this encounter
--- OUTSIDE RECORDS SUMMARY | 2025-08-10 07:56 | XMS_ITS | Encounter Summary ---
Author Organization Healthcare Address [address] [place] [address] Care Team Providers Care Medical Library Assistant Name Role Phone System, Provider Not In MD Primary Care Provider Unavailable Miguel Perez MD Unavailable [phone] Sherin Romero RN Unavailable Unavailable Reason for Referral * Imaging (Routine) - Closed Specialty Diagnoses / Procedures Referred By Contac t Referred To Contact Radiology Diagnoses Brain mass Glioblastoma multiforme (CMS/HCC) Procedures MR Head w and wo IV Contrast Olivia Etienne APRN, DNP [address] [address] Phone: tel: fax: Referral ID Status Reason Start Date Expiration Date Visits Re quested Visits Authorized [id number] Closed 06/05/2025 12/05/2026 1 1 Reason for Visit * Imaging (Routine) - Closed Specialty Diagnoses / Procedures Referred By Contac t Referred To Contact Radiology Diagnoses Brain mass Glioblastoma multiforme (CMS/HCC) Procedures MR Head w and wo IV Contrast Olivia Etienne APRN, DNP [address] [address] Phone: tel: fax: Referral ID Status Reason Start Date Expiration Date Visits Re quested Visits Authorized [id number] Closed 06/05/2025 12/05/2026 1 1 Encounter Details Date Type Department Care Team (Latest Contact Info) Description 08/10/2025 7:56 AM EST - 08/10/2025 2:59 PM EST Hospital Encounter [facility] [address] [place] [address] Brain mass; Glioblastoma multiforme (CMS/HCC) Discharge Disposition: Home or Self Care Social [...] drink first t carroll in the morning (EYE-BEATER WORKER HELPER) to steady your nerves or to [...] tablet by mouth daily. 06/01/2025 Ascorbic Acid 77274 MG/30ML solution Infuse 87.5 g into a [...] [facility] 800 [facility], [address] [place] [address] 09/21/2025 9:30 AM EST Office Visit [facility] 800 [facility], 2nd [place] [address] Gabe Cifuentes, WEAPONS ENGINEER [address] [place] [address] 09/21/2025 11:00 AM EST Appointment [facility] [address] [place] [address] 10/05/2025 9:00 AM EST Office Visit [facility] [address], [address] [place] [address] Sanchez Zaldivar MD [address] [place] [address] 10/05/2025 11:00 AM EST Consult [facility] [address], [address] [place] [address] Shy Marquez, WEAPONS ENGINEER [address] [place] [address] 10/12/2025 8:30 AM EST Appointment [facility] [address] [place] [address] documented as of this encounter Procedures Procedure Name Priority Date/Time Associated Diagnosis Comments MR HEAD W AND WO IV CONTRAST Routine 08/10/2025 8:39 AM EST Brain mass Glioblastoma multiforme (CMS/HCC) documented in this encounter Results * MR Head w and wo IV Contrast (08/10/2025 8:39 AM EST) Anatomical Region Laterality Modality Head Magnetic Resonan ce Impressions 08/11/2025 7:33 AM EST Prior left temporal craniotomy. Nodular and thick peripheral enhancement surrounding the resection cavity in the left temporal and parietal operculum/insula with a smaller adjacent area of enhancement in the left temporal lobe, similar in size when compared to the prior exam. Surrounding T2/FLAIR hyperintensity has increased when compared to the prior exam possibly posttreatment changes however progression could potentially have this appearance. Case finalized on 08/11/25 07:33 MARYAM Hart M.D. This report has been electronically signed and verified by the Radiologist whose name is printed above. This report contains privileged and confidential information and is intended solely for the use of the individual or entity to which it is addressed. If you are not the intended recipient of this report, you are hereby notified that any copying, distribution, dissemination or action taken in relation to the contents of this report is strictly prohibited and may be unlawful. If you have received this report in error, please notify the sender immediately at [phone] and permanently delete the original report and destroy any copies or printouts. 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 Expected postsurgical changes with dural thickening deep to the craniotomy site and small extra-axial collection deep to the craniotomy site measuring 2 mm in thickness. There is nodular peripheral enhancement surrounding the resection cavity in the left temporal and parietal operculum. This focus measures approximately 3.6 x 2.8 cm, not significantly changed. Smaller adjacent area of enhancement in the left temporal lobe measuring 0.8 cm, unchanged. No new areas of abnormal enhancement. There is surrounding T2/FLAIR hyperintensity as well as extending into the subinsular region, left thalamus, left temporal lobe. This has increased when compared to the prior exam, extending along the left temporal horn as well as more confluent in the left frontal and parietal ordaz radiata. Mild periventricular T2/FLAIR hyperintensities, unchanged. Ventricles are unchanged in size. Intracranial flow voids are maintained. Extracranial structures are unchanged. Procedure Note Yadira Hart MD - 08/11/2025 [facility] - Phone Outpatient NAME: Herminia Murrell DATE OF EXAM: 08/10/2025 Patient No: [id number] Physician: Lowell^Olivia^Bethanie Date of : 1960 Past Medical/Surgical History (entered by technologist): Symptoms/Reason For Exam (entered by technologist): Brain/BREAKFAST MANAGER neoplasm,assess treatment response Tech Notes (entered by technologist): 9.1 ml Gadavist Given Additional History (per [facility]): Exam: MRI brain without and with contrast Indication: Neoplasm Comparison: MRI brain 05/22/2025 Technique: Multiplanar multisequence MRI of the brain obtained without andwith intravenous contrast, 9.1 mL Gadavist IV FINDINGS: Prior left temporal craniotomy. Expected postsurgical changes with duralthickening deep to the craniotomy site and small extra-axial collectiondeep to the craniotomy site measuring 2 mm in thickness. There is nodular peripheral enhancement surrounding the resection cavityin the left temporal and parietal operculum. This focus measuresapproximately 3.6 x 2.8 cm, not significantly changed. Smaller adjacentarea of enhancement in the left temporal lobe measuring 0.8 cm, unchanged.No new areas of abnormal enhancement. There is surrounding T2/FLAIR hyperintensity as well as extending into thesubinsular region, left thalamus, left temporal lobe. This has increasedwhen compared to the prior exam, extending along the left temporal horn aswell as more confluent in the left frontal and parietal ordaz radiata. Mild periventricular T2/FLAIR hyperintensities, unchanged. Ventricles are unchanged in size. Intracranial flow voids aremaintained. Extracranial structures are unchanged. IMPRESSION: Prior left temporal craniotomy. Nodular and thick peripheral enhancementsurrounding the resection cavity in the left temporal and parietaloperculum/insula with a smaller adjacent area of enhancement in the lefttemporal lobe, similar in size when compared to the prior exam. Surrounding T2/FLAIR hyperintensity has increased when compared to theprior exam possibly posttreatment changes however progression couldpotentially have this appearance. Case finalized on 08/11/25 07:33 EDT Yadira Hart M.D. This report has been electronically signed and verified by the Radiologistwhose name is printed above. This report contains privileged and confidential information and isintended solely for the use of the individual or entity to which it isaddressed. If you are not the intended recipient of this report, you arehereby notified that any copying, distribution, dissemination or actiontaken in relation to the contents of this report is strictly prohibitedand may be unlawful. If you have received this report in error, pleasenotify the sender immediately at [phone] and permanently delete theoriginal report and destroy any copies or printouts. Olivia Etienne APRN, [facility] IMG MRI PROCEDURES Final Result documented in this encounter Visit Diagnoses Diagnosis Brain mass Unspecified condition of brain Glioblastoma multiforme (CMS/HCC) Malignant neoplasm of brain, unspecified site documented in this encounter Administered Medications Inactive Administered Medications - up to 3 most recent administrations Medication Order MAR Action Action Date Dose Rate Site gadobutrol (Gadavist) injection 9.1 mL 9.1 mL (rounded from 9.07 mL = 0.1 mL/kg 90.7 kg), Intravenous, Once in imaging, 1 dose, Starting on Sun08/10/25 at 0803, Until Sun08/10/25 at 0823, Routine, Imaging Protocol Orders Given 08/10/2025 8:23 AM EST 9.1 mL Left Antecubital documented in this encounter Additional Health Concerns Assessment Noted Time PHQ-9 Depression Total Score: 6 10/08/19 2:13 PM EST A fall risk assessment has been complete d for the patient 08/10/2025 3:20 PM EST A Body Mass Index follow-up plan has been documented for the patient 07/06/2025 10:36 AM EDT documented as of this encounter Care Teams Medical Library Assistant Relationship Specialty Start Date End Date System, Provider Not In, [place] [address] PCP - General Family Medicine 03/23/25 Miguel Perez MD [address] [place] [address] [address] [place] [address] Consulting Physician Radiation Oncology 04/09/25 Sherin Romero RN None None Registered Nurse Medical Oncology 07/20/25 documented as of this encounter
--- OUTSIDE RECORDS SUMMARY | 2025-08-10 13:45 | XMS_ITS | Encounter Summary ---
Author Organization Healthcare Address [address] [place] [address] Care Team Providers Care Master At Arms Name Role Phone System, Provider Not In MD Primary Care Provider Unavailable Miguel Perez MD Unavailable [phone] Sherin Romero RN Unavailable Unavailable Reason for Visit * Reason Comments Labs Encounter Details Date Type Department Care Team (Latest Contact Info) Description 08/10/2025 1:45 PM EST Clinical Support [facility] [address], [address]nd [place] [phone] Glioblastoma multiforme (CMS/HCC); Exam for clinical research [...] drink first t carroll in the morning (EYE-RELEASE OF INFORMATION SPECIALIST) to steady your nerves or to [...] & Respiratory 800 [facility], 2nd [place] [address] 09/21/2025 9:30 AM EST Office Visit [facility] 800 [facility], 2nd [place] [address] Gabe Cifuentes, MEDIA CENTER DIRECTOR SCHOOL 800 [facility] [address] [place] [address] 09/21/2025 11:00 AM EST Appointment [facility] 800 [place] [address] 10/05/2025 9:00 AM EST Office Visit [facility] [address], 1st [place] [address] Sanchez Zaldivar MD [address] [place] [address] 10/05/2025 11:00 AM EST Consult [facility] [address], 1st [place] [address] Shy Maqruez, MEDIA CENTER DIRECTOR SCHOOL [address] [place] [address] 10/12/2025 8:30 AM EST Appointment [facility] [address], [address] [place] [phone] documented as of this encounter Procedures Procedure Name Priority Date/Time Associated Diagnosis Comments T3 Routine 08/10/2025 2:20 PM EST Glioblastoma multiforme (CMS/HCC) APTT Routine 08/10/2025 2:20 PM EST Glioblastoma multiforme (CMS/HCC) Exam for clinical research PROTHROMBIN TIME(PT) / INR Routine 08/10/2025 2:20 PM EST Glioblastoma multiforme (CMS/HCC) Exam for clinical research CBC WITH AUTO DIFFERENTIAL Routine 08/10/2025 2:20 PM EST Glioblastoma multiforme (CMS/HCC) TSH Routine 08/10/2025 2:20 PM EST Glioblastoma multiforme (CMS/HCC) FREE T4, PLASMA Routine 08/10/2025 2:20 PM EST Glioblastoma multiforme (CMS/HCC) COMPREHENSIVE METABOLIC PANEL, PLASMA Routine 08/10/2025 2:20 PM EST Glioblastoma multiforme (CMS/HCC) documented in this encounter Results * (ABNORMAL) Prothrombin Time/INR (08/10/2025 2:20 PM EST) Prothrombin Time 15.6(H) 12.0 - 14.3 sec LAB COAGULATION METHOD 08/10/2025 3:07 PM EST [facility] INR 1.2(H) 0.9 - 1.1 LAB COAGULATION METHOD 08/10/2025 3:07 PM EST [facility] Blood Venous blood specimen / Unknown Venipuncture / Unknown 08/10/2025 2:20 PM EST 08/10/2025 2:35 PM EST Narrative [facility] - 08/10/2025 3:07 PM EST OPTIMAL INR RANGES FOR PATIENT ON ORAL ANTICOAGULANT THERAPY Prevention of venous thromboembolism INR 2.0 to 3.0 In patients with heart disease: Atrial fibrillation INR 2.0 to 3.0 Valvular heart disease INR 2.0 to 3.0 Tissue heart valves INR 2.0 to 3.0 Mechanical prosthetic valves INR 2.5 to 3.5 Prevention of recurrent FL INR 2.5 to 3.5 us Chente Sebastian MD LAB BLOOD ORDERABLES Final Res ult [facility] [address] [place] [address] * APTT (08/10/2025 2:20 PM EST) aPTT 27 25 - 35 sec LAB COAGULATION METHOD 08/10/2025 3:07 PM EST [facility] Blood Venous blood specimen / Unknown Venipuncture / Unknown 08/10/2025 2:20 PM EST 08/10/2025 2:35 PM EST Chente Sebastian MD LAB BLOOD ORDERABLES Final Res ult Performing Organization Address City/[facility] Co de Phone Number [facility] [address] [place] [address] * (ABNORMAL) CBC and differential (08/10/2025 2:20 PM EST) WBC Count 4.89 3.70 - 10.30 10*3/uL LAB HEMATOLOGY METHOD 08/10/2025 2:49 PM EST [facility] RBC Count 4.65 3.90 - 5.20 10*6/uL LAB HEMATOLOGY METHOD 08/10/2025 2:49 PM EST [facility] HGB 12.8 11.2 - 15.7 g/dL LAB HEMATOLOGY METHOD 08/10/2025 2:49 PM EST [facility] HCT 39.0 34.0 - 45.0 % LAB HEMATOLOGY METHOD 08/10/2025 2:49 PM EST [facility] Platelet Count 259 155 - 369 10*3/uL LAB HEMATOLOGY METHOD 08/10/2025 2:49 PM EST [facility] MCV 84 79 - 98 fL LAB HEMATOLOGY METHOD 08/10/2025 2:49 PM EST [facility] MCH 27.5 26.0 - 32.0 pg LAB HEMATOLOGY METHOD 08/10/2025 2:49 PM EST [facility] MCHC 32.8 30.7 - 35.5 g/dL LAB HEMATOLOGY METHOD 08/10/2025 2:49 PM EST [facility] RDW 14.2 11.5 - 14.5 % LAB HEMATOLOGY METHOD 08/10/2025 2:49 PM [facility] MPV 9.9 8.8 - 12.5 fL LAB HEMATOLOGY METHOD 08/10/2025 2:49 PM [facility] nRBC 0.0 <=0.0 per 100 WBCs LAB HEMATOLOGY METHOD 08/10/2025 2:49 PM [facility] Differential Type Automated LAB HEMATOLOGY METHOD 08/10/2025 2:49 PM [facility] Neutrophils % 75 % LAB HEMATOLOGY METHOD 08/10/2025 2:49 PM [facility] Lymphocytes % 14 % LAB HEMATOLOGY METHOD 08/10/2025 2:49 PM [facility] Monocytes % 9 % LAB HEMATOLOGY METHOD 08/10/2025 2:49 PM [facility] Eosinophils % 2 % LAB HEMATOLOGY METHOD 08/10/2025 2:49 PM [facility] Basophils % 0 % LAB HEMATOLOGY METHOD 08/10/2025 2:49 PM [facility] Immature Granulocytes % 0 % LAB HEMATOLOGY METHOD 08/10/2025 2:49 PM [facility] Neutrophils Absolute 3.59 1.60 - 6.10 10*3/uL LAB HEMATOLOGY METHOD 08/10/2025 2:49 PM [facility] Lymphocytes Absolute 0.69(L) 1.20 - 3.90 10*3/uL LAB HEMATOLOGY METHOD 08/10/2025 2:49 PM [facility] Monocytes Absolute 0.46 0.30 - 0.90 10*3/uL LAB HEMATOLOGY METHOD 08/10/2025 2:49 PM [facility] Eosinophils Absolute 0.11 0.00 - 0.50 10*3/uL LAB HEMATOLOGY METHOD 08/10/2025 2:49 PM [facility] Basophils Absolute 0.02 0.00 - 0.10 10*3/uL LAB HEMATOLOGY METHOD 08/10/2025 2:49 PM [facility] Immature Granulocytes Absolute 0.02 0.00 - 0.06 10*3/uL LAB HEMATOLOGY METHOD 08/10/2025 2:49 PM [facility] Blood Venous blood specimen / Unknown Venipuncture / Unknown 08/10/2025 2:20 PM EST 08/10/2025 2:39 PM EST Narrative [facility] - 08/10/2025 2:49 PM EST Therapeutic decision making should be based on absolute values, rather than percentages. us Chente Sebastian MD LAB BLOOD ORDERABLES Final Res ult [facility] [address] [place] [address] * (ABNORMAL) Comprehensive metabolic panel (08/10/2025 2:20 PM EST) Glucose, Plasma 128(H) 74 - 99 mg/dL 08/10/2025 3:12 PM EST [facility] BUN, Plasma 12 8 - 23 mg/dL 08/10/2025 3:12 PM EST [facility] Creatinine, Plasma 0.65 0.60 - 1.10 mg/dL 08/10/2025 3:12 PM EST [facility] BUN/Creatinine Ratio 18 08/10/2025 3:12 PM EST [facility] Sodium, Plasma 140 136 - 145 mmol/L 08/10/2025 3:12 PM EST [facility] Potassium, Plasma 3.5(L) 3.6 - 4.9 mmol/L 08/10/2025 3:12 PM EST [facility] Chloride, Plasma 103 97 - 107 mmol/L 08/10/2025 3:12 PM EST [facility] CO2, Plasma 27 22 - 29 mmol/L 08/10/2025 3:12 PM EST [facility] Anion Gap 10 6 - 16 mmol/L 08/10/2025 3:12 PM EST [facility] Total Calcium, Plasma 9.3 8.9 - 10.2 mg/dL 08/10/2025 3:12 PM EST [facility] Total Protein 6.8 6.3 - 7.9 g/dL 08/10/2025 3:12 PM EST [facility] Albumin, Plasma 4.0 3.5 - 5.2 g/dL 08/10/2025 3:12 PM EST [facility] AST, Plasma 14 10 - 35 U/L 08/10/2025 3:12 PM EST [facility] ALT, Plasma 15 10 - 35 U/L 08/10/2025 3:12 PM EST [facility] Alkaline Phosphatase, Plasma 68 46 - 142 U/L 08/10/2025 3:12 PM EST [facility] Total Bilirubin, Plasma 0.3 0.2 - 1.1 mg/dL 08/10/2025 3:12 PM EST [facility] eGFRcr 96.6 mL/min/1.7 3m*2 08/10/2025 3:12 PM EST [facility] Comment:Reported eGFRcr in m L/min/1.73m2 is based the CKD-EPI 2020 equation that does not use a race coefficient. Blood Venous blood specimen / Unknown Venipuncture / Unknown 08/10/2025 2:20 PM EST 08/10/2025 2:35 PM EST us Chente Sebastian MD LAB BLOOD ORDERABLES Final Res ult Performing Organization Address City/[facility] Co de Phone Number [facility] [address] [place] [address] * TSH (08/10/2025 2:20 PM EST) Thyroid Stimulating Hormone, Plasma 2.20 0.40 - 4.20 uIU/mL 08/10/2025 3:12 PM EST [facility] Blood Venous blood specimen / Unknown Venipuncture / Unknown 08/10/2025 2:20 PM EST 08/10/2025 2:35 PM EST us Chente Sebastian MD LAB BLOOD ORDERABLES Final Res ult [facility] [address] [place] [address] * T3, Serum (08/10/2025 2:20 PM EST) T3, Serum 105 87 - 187 ng/dL 08/10/2025 3:12 PM EST [facility] Blood Venous blood specimen / Unknown Venipuncture / Unknown 08/10/2025 2:20 PM EST 08/10/2025 2:35 PM EST us Chente Sebastian MD LAB BLOOD ORDERABLES Final Res ult [facility] [address] [place] [address] * T4, free (08/10/2025 2:20 PM EST) Free T4, Plasma 1.2 0.8 - 1.7 ng/dL 08/10/2025 3:12 PM EST [facility] Blood Venous blood specimen / Unknown Venipuncture / Unknown 08/10/2025 2:20 PM EST 08/10/2025 2:35 PM EST Chente Sebastian MD LAB BLOOD ORDERABLES Final Res ult Performing Organization Address City/[facility]/ZIP Co de Phone Number [facility] [address] [place] [address] documented in this encounter Visit Diagnoses Diagnosis [...] documented as of this encounter Care Teams Master At Arms Relationship Specialty Start Date End Date System, Provider Not In, [address] [place] [address] PCP - General Family Medicine 03/23/25 Miguel Perez MD [address] [place] [address] [address] [place] [address] Consulting Physician Radiation Oncology 04/09/25 Sherin Romero, RN None None Registered Nurse Medical Oncology 07/20/25 documented as of this encounter
--- OUTSIDE RECORDS SUMMARY | 2025-08-10 14:20 | XMS_ITS | Encounter Summary ---
Author Organization [facility] Address [address] [place] [address] Care Team Providers Care Provider Relations Specialist Name Role Phone System, Provider Not In MD Primary Care Provider Unavailable Miguel Perez MD Unavailable [phone] Sherin Romero RN Unavailable Unavailable Reason for Visit * Reason Comments Follow-up Encounter Details Date Type Department Care Team (Late st Contact Info) Description 08/10/2025 2:20 PM EST Office Visit Pav CC Head, Neck & Respiratory [address] [facility], [address]nd [place] [address] Chente Sebastian MD [address] [facility] [address] [place] [address] Glioblastoma multiforme (CMS/HCC) (Primary Dx); Research study [...] drink first t carroll in the morning ([employer]) to steady your nerves or to get [...] * BP Answer Date of Assessment Author 125/78 08/10/2025 2:14 PM EST Meneses, C rystal * Temp Answer Date of Assessment Author 98.2 08/10/2025 2:14 PM EST Meneses, C rystal * Temp src Answer Date of Assessment Author Oral 08/10/2025 2:14 PM EST Meneses, C rystal * Pulse Answer Date of Assessment Author 75 08/10/2025 2:14 PM EST Meneses, C rystal * Resp Answer Date of Assessment Author 16 08/10/2025 2:14 PM EST Meneses, C rystal * SpO2 Answer Date of Assessment Author 95 08/10/2025 2:14 PM EST Meneses, C rystal * Height Answer Date of Assessment Author 66 08/10/2025 2:14 PM EST Meneses, C rystal * Weight Answer Date of Assessment Author 3456.81 08/10/2025 2:14 PM EST Meneses, C rystal * BMI (Calculated) Answer Date of Assessment Author 34.9 08/10/2025 2:14 PM EST Meneses, C rystal * Percent Excess Weight Loss Answer Date of Assessment Author 0 08/10/2025 2:14 PM EST Meneses, C rystal * Total Weight Change Percent Answer Date of Assessment Author 2222 08/10/2025 2:14 PM EST Meneses, C rystal * Weight Change Since Preop Answer Date of Assessment Author 97.98 08/10/2025 2:14 PM EST Meneses, C rystal * Initial Excess Weight Answer Date of Assessment Author -58.97 08/10/2025 2:14 PM EST Meneses, C rystal * IBW in lbs (Bariatric) Answer Date of Assessment Author 130 08/10/2025 2:14 PM EST Meneses, C rystal * Weight Change Since Last Visit Answer Date of Assessment Author 97.98 08/10/2025 2:14 PM EST Meneses, C rystal * IBW in kg (Bariatric) Answer Date of Assessment Author 58.97 08/10/2025 2:14 PM EST Meneses, C rystal * Percent of IBW Answer Date of Assessment Author 5,861.98 08/10/2025 2:14 PM EST Meneses, C rystal * EBW (kg) Answer Date of Assessment Author 3,455.14 08/10/2025 2:14 PM EST Meneses, C rystal * EBW (lbs) Answer Date of Assessment Author 3,448.69 08/10/2025 2:14 PM EST Meneses, C rystal * Weight Change 24 hrs Answer Date of Assessment Author -2.3 08/10/2025 2:14 PM EST Meneses, C rystal * BSA (Calculated - sq m) Answer Date of Assessment Author 2.14 08/10/2025 2:14 PM EST Meneses, C rystal * BMI (Calculated) Answer Date of Assessment Author 34.89 08/10/2025 2:14 PM EST Meneses, C rystal * BP Location Answer Date of Assessment Author Left arm 08/10/2025 2:14 PM EST Meneses, C rystal * IBW/kg (Calculated) Male Answer Date of Assessment Author 63.8 08/10/2025 2:14 PM EST Meneses, C rystal * IBW/kg (Calculated) Female Answer Date of Assessment Author 59.3 08/10/2025 2:14 PM EST Meneses, C rystal * Restart Vitals Timer Answer Date of Assessment Author Yes 08/10/2025 2:14 PM EST Meneses, C rystal * IBW/kg (Calculated) Answer Date of Assessment Author 59.3 08/10/2025 2:14 PM EST Meneses, C rystal * Weight in (lb) to have BMI = 25 Answer Date of Assessment Author 154.6 08/10/2025 2:14 PM EST Meneses, C rystal * BMI (Calculated) Answer Date of Assessment Author 34.9 08/10/2025 2:14 PM EST Meneses, C rystal * Percent Excess Weight Loss Answer Date of Assessment Author 0 08/10/2025 2:14 PM EST Meneses, C rystal * Weight Change Since Preop Answer Date of Assessment Author 98 08/10/2025 2:14 PM EST Meneses, C rystal * Initial Excess Weight Answer Date of Assessment Author -58.97 08/10/2025 2:14 PM EST Meneses, C rystal * IBW in kg (Bariatric) Answer Date of Assessment Author 58.97 08/10/2025 2:14 PM EST Meneses, C rystal * IBW in lb (Bariatric) Answer Date of Assessment Author 130 08/10/2025 2:14 PM EST Meneses, Crystal * Weight Change Since Last Visit Answer Date of Assessment Author 7.28 08/10/2025 2:14 PM EST Meneses, C rystal * Percent of IBW Answer Date of Assessment Author 166.19 08/10/2025 2:14 PM EST Meneses, C rystal * EBW (kg) Answer Date of Assessment Author 39.01 08/10/2025 2:14 PM EST Meneses, C rystal * EBW (lb) Answer Date of Assessment Author 86.05 08/10/2025 2:14 PM EST Meneses, C rystal * Difference in Weight Since Last Visit Answer Date of Assessment Author 7.28 08/10/2025 2:14 PM EST Meneses, C rystal * Temp (in Celsius) for TONAWANDA IV Answer Date of Assessment Author 36.8 08/10/2025 2:14 PM EST Meneses, C rystal * IBW/kg (Calculated) Answer Date of Assessment Author 59.3 08/10/2025 2:14 PM EST Meneses, C rystal * Adult Low Range Vt 6mL/kg Answer Date of Assessment Author 355.8 08/10/2025 2:14 PM EST Meneses, C rystal * Adult Moderate Range Vt 8mL/kg Answer Date of Assessment Author 474.4 08/10/2025 2:14 PM EST Meneses, C rystal * Adult High Range Vt 10mL/kg Answer Date of Assessment Author 593 08/10/2025 2:14 PM EST Meneses, C rystal * Pain Score Answer Date of Assessment Author 4 08/10/2025 2:14 PM EST Meneses, C rystal * Vitals Timer Question Answer Date of Assessment Author Restart Vitals Timer Yes 08/10/2025 2:[address] Meneses, Crystal * Patient Position Answer Date of Assessment Author Sitting 08/10/2025 2:14 PM EST Meneses, C rystal * Pain Screening/Additional Assessments Question Answer Date of Assessment Author Pain Screening/Assessments Pain Screening 08/10/2025 2 :14 PM EST Meneses, Crystal * Pain Screening Answer Date of Assessment Author 0-10 08/10/2025 2:14 PM EST Meneses, C rystal * BP Answer Date of Assessment Author 125/78 08/10/2025 2:14 PM EST Meneses, C rystal * Temp Answer Date of Assessment Author 98.2 08/10/2025 2:14 PM EST Meneses, C rystal * Temp src Answer Date of Assessment Author Oral 08/10/2025 2:14 PM EST Meneses, C rystal * Pulse Answer Date of Assessment Author 75 08/10/2025 2:14 PM EST Meneses, C rystal * Resp Answer Date of Assessment Author 16 08/10/2025 2:14 PM EST Meneses, C rystal * SpO2 Answer Date of Assessment Author 95 08/10/2025 2:14 PM EST Meneses, C rystal * Height Answer Date of Assessment Author 66 08/10/2025 2:14 PM EST Meneses, C rystal * Weight Answer Date of Assessment Author 3456.81 08/10/2025 2:14 PM EST Meneses, C rystal * BSA (Calculated - sq m) Answer Date of Assessment Author 2.14 08/10/2025 2:14 PM EST Meneses, C rystal * BMI (Calculated) Answer Date of Assessment Author 34.89 08/10/2025 2:14 PM EST Meneses, C rystal * BP Location Answer Date of Assessment Author Left arm 08/10/2025 2:14 PM EST Meneses, C rystal * Restart Vitals Timer Answer Date of Assessment Author Yes 08/10/2025 2:14 PM EST Meneses, C rystal * Weight in (lb) to have BMI = 25 Answer Date of Assessment Author 154.6 08/10/2025 2:14 PM EST Meneses, C rystal * Pain Score Answer Date of Assessment Author 4 08/10/2025 2:14 PM EST Meneses, C rystal * Patient Position Answer Date of Assessment Author Sitting 08/10/2025 2:14 PM EST Meneses, C rystal documented as of this encounter Mental Status * BP Answer Entry Date Author 125/78 08/10/2025 2:14 PM EST Meneses, C rystal * Temp Answer Entry Date Author 98.2 08/10/2025 2:14 PM EST Meneses, C rystal * Temp src Answer Entry Date Author Oral 08/10/2025 2:14 PM EST Meneses, C rystal * Pulse Answer Entry Date Author 75 08/10/2025 2:14 PM EST Meneses, C rystal * Resp Answer Entry Date Author 16 08/10/2025 2:14 PM EST Meneses, C rystal * SpO2 Answer Entry Date Author 95 08/10/2025 2:14 PM EST Meneses, C rystal * Height Answer Entry Date Author 66 08/10/2025 2:14 PM EST Meneses, C rystal * Weight Answer Entry Date Author 3456.81 08/10/2025 2:14 PM EST Meneses, C rystal * BMI (Calculated) Answer Entry Date Author 34.9 08/10/2025 2:14 PM EST Meneses, C rystal * Percent Excess Weight Loss Answer Entry Date Author 0 08/10/2025 2:14 PM EST Meneses, C rystal * Total Weight Change Percent Answer Entry Date Author 2222 08/10/2025 2:14 PM EST Meneses, C rystal * Weight Change Since Preop Answer Entry Date Author 97.98 08/10/2025 2:14 PM EST Meneses, C rystal * Initial Excess Weight Answer Entry Date Author -58.97 08/10/2025 2:14 PM EST Meneses, C rystal * IBW in lbs (Bariatric) Answer Entry Date Author 130 08/10/2025 2:14 PM EST Meneses, C rystal * Weight Change Since Last Visit Answer Entry Date Author 97.98 08/10/2025 2:14 PM EST Meneses, C rystal * IBW in kg (Bariatric) Answer Entry Date Author 58.97 08/10/2025 2:14 PM EST Meneses, C rystal * Percent of IBW Answer Entry Date Author 5,861.98 08/10/2025 2:14 PM EST Meneses, C rystal * EBW (kg) Answer Entry Date Author 3,455.14 08/10/2025 2:14 PM EST Meneses, C rystal * EBW (lbs) Answer Entry Date Author 3,448.69 08/10/2025 2:14 PM EST Meneses, C rystal * Weight Change 24 hrs Answer Entry Date Author -2.3 08/10/2025 2:14 PM EST Meneses, C rystal * BSA (Calculated - sq m) Answer Entry Date Author 2.14 08/10/2025 2:14 PM EST Meneses, C rystal * BMI (Calculated) Answer Entry Date Author 34.89 08/10/2025 2:14 PM EST Meneses, C rystal * BP Location Answer Entry Date Author Left arm 08/10/2025 2:14 PM EST Meneses, C rystal * IBW/kg (Calculated) Male Answer Entry Date Author 63.8 08/10/2025 2:14 PM EST Meneses, C rystal * IBW/kg (Calculated) Female Answer Entry Date Author 59.3 08/10/2025 2:14 PM EST Meneses, C rystal * Restart Vitals Timer Answer Entry Date Author Yes 08/10/2025 2:14 PM EST Meneses, C rystal * IBW/kg (Calculated) Answer Entry Date Author 59.3 08/10/2025 2:14 PM EST Meneses, C rystal * Restart Pain Assessment Timer Answer Entry Date Author Yes 08/10/2025 2:14 PM EST Meneses, C rystal * Weight in (lb) to have BMI = 25 Answer Entry Date Author 154.6 08/10/2025 2:14 PM EST Meneses, C rystal * BMI (Calculated) Answer Entry Date Author 34.9 08/10/2025 2:14 PM EST Meneses, C rystal * Percent Excess Weight Loss Answer Entry Date Author 0 08/10/2025 2:14 PM EST Meneses, C rystal * Weight Change Since Preop Answer Entry Date Author 98 08/10/2025 2:14 PM EST Meneses, C rystal * Initial Excess Weight Answer Entry Date Author -58.97 08/10/2025 2:14 PM EST Meneses, C rystal * IBW in kg (Bariatric) Answer Entry Date Author 58.97 08/10/2025 2:14 PM EST Meneses, C rystal * IBW in lb (Bariatric) Answer Entry Date Author 130 08/10/2025 2:14 PM EST Meneses, C rystal * Weight Change Since Last Visit Answer Entry Date Author 7.28 08/10/2025 2:14 PM EST Meneses, C rystal * Percent of IBW Answer Entry Date Author 166.19 08/10/2025 2:14 PM EST Meneses, C rystal * EBW (kg) Answer Entry Date Author 39.01 08/10/2025 2:14 PM EST Meneses, C rystal * EBW (lb) Answer Entry Date Author 86.05 08/10/2025 2:14 PM EST Meneses, C rystal * Difference in Weight Since Last Visit Answer Entry Date Author 7.28 08/10/2025 2:14 PM EST Meneses, C rystal * Temp (in Celsius) for TONAWANDA IV Answer Entry Date Author 36.8 08/10/2025 2:14 PM EST Meneses, C rystal * IBW/kg (Calculated) Answer Entry Date Author 59.3 08/10/2025 2:14 PM EST Meneses, C rystal * Adult Low Range Vt 6mL/kg Answer Entry Date Author 355.8 08/10/2025 2:14 PM EST Meneses, C rystal * Adult Moderate Range Vt 8mL/kg Answer Entry Date Author 474.4 08/10/2025 2:14 PM EST Meneses, C rystal * Adult High Range Vt 10mL/kg Answer Entry Date Author 593 08/10/2025 2:14 PM EST Meneses, C rystal * Pain Score Answer Entry Date Author 4 08/10/2025 2:14 PM EST Meneses, C rystal * BP Cuff Size Answer Entry Date Author Adult 08/10/2025 2:14 PM EST Meneses, C rystal * Vitals Timer Question Answer Entry Date Author Restart Vitals Timer Yes 08/10/2025 2:[address] Meneses, Crystal * Patient Position Answer Entry Date Author Sitting 08/10/2025 2:14 PM EST Meneses, C rystal * Pain Screening Answer Entry Date Author 0-10 08/10/2025 2:14 PM EST Meneses, C rystal documented in this encounter Miscellaneous Notes * [...] P[facility] HEAD, [facility]ECK & RESPIRATORY [address] [facility] [address] No referring provider defined for this encounter Cosigned by Chente Sebastian MD at 08/19/2025 8:12 PM EST Associated attestation - Chente Sebastian MD - 08/19/2025 8:12 PM EST I saw and evaluated the patient with the resident/fellow. I discussed the case with the resident/fellow and agree with the findings and plan as documented. * Progress Notes - Rickie Wagner, PharmD - 08/10/2025 2:20 PM EST Pharmacy Hematology/Oncology Treatment Note Herminia Murrell is a 65 y.o. female with GBM (MGMT+, IDH wt) Cancer Staging Glioblastoma multiforme (CMS/HCC) Staging form: High Grade Glioma - Clinical stage from 04/02/2025: Histology: Glioblastoma multiforme, Location: Temporal lobe - Signed by Miguel Perez MD on 04/02/2025 Study Patient: Yes [id number]: A Phase 3, Randomized, Double-Blind, Placebo-Controlled Study [...] per GBM-16. TMZ maintenance supply received from [facility] for start of Cycle 1, scheduled [...] Pav CC Head, Neck & Respiratory [address] [facility], [address]nd [place] [address] 09/21/2025 9:30 AM EST Office Visit Pav CC Head, Neck & Respiratory [address] [facility], [address] [place] [address] Gabe Cifuentes, DOCUMENT CLERK [address] [facility] [address] [facility] [address] [place] [address] 09/21/2025 11:00 AM EST Appointment [facility] [address] [place] [address] 10/05/2025 9:00 AM EST Office Visit [facility] [address], [address] [place] [address] Sanchez Zaldivar MD [address] [facility] [address] [place] [address] 10/05/2025 11:00 AM EST Consult [facility] [address], [address] [place] [address] Shy Marquez APRN [address] [place] [address] 10/12/2025 8:30 AM EST Appointment [facility] [address], [address] [place] [phone] Scheduled Orders Name Type Priority Associated Diagnoses Orde r Schedule Comprehensive Metabolic Panel, Plasma Lab Routine Glioblastoma [...] Expires: 02/13/2027 documented as of this encounter Results * (ABNORMAL) Comprehensive metabolic panel (08/31/2025 8:36 AM EST) Glucose, Plasma 96 74 - 99 mg/dL 08/31/2025 9:27 AM [facility] BUN, Plasma 10 8 - 23 mg/dL 08/31/2025 9:27 AM [facility] Creatinine, Plasma 0.59(L) 0.60 - 1.10 mg/dL 08/31/2025 9:27 AM [facility] BUN/Creatinine Ratio 17 08/31/2025 9:27 AM [facility] Sodium, Plasma 140 136 - 145 mmol/L 08/31/2025 9:27 AM [facility] Potassium, Plasma 3.3(L) 3.6 - 4.9 mmol/L 08/31/2025 9:27 AM [facility] Chloride, Plasma 105 97 - 107 mmol/L 08/31/2025 9:27 AM [facility] CO2, Plasma 25 22 - 29 mmol/L 08/31/2025 9:27 AM [facility] Anion Gap 10 6 - 16 mmol/L 08/31/2025 9:27 AM [facility] Total Calcium, Plasma 9.3 8.9 - 10.2 mg/dL 08/31/2025 9:27 AM [facility] Total Protein 6.5 6.3 - 7.9 g/dL 08/31/2025 9:27 AM [facility] Albumin, Plasma 3.9 3.5 - 5.2 g/dL 08/31/2025 9:27 AM [facility] AST, Plasma 14 10 - 35 U/L 08/31/2025 9:27 AM [facility] ALT, Plasma 11 10 - 35 U/L 08/31/2025 9:27 AM [facility] Alkaline Phosphatase, Plasma 59 46 - 142 U/L 08/31/2025 9:27 AM [facility] Total Bilirubin, Plasma 0.5 0.2 - 1.1 mg/dL 08/31/2025 9:27 AM [facility] eGFRcr 98.9 mL/min/1.7 3m*2 08/31/2025 9:27 AM EST [facility] Comment:Reported eGFRcr in m L/min/1.73m2 is based the CKD-EPI 2020 equation that does not use a race coefficient. Blood Venous blood specimen / Unknown Venipuncture / Unknown 08/31/2025 8:36 AM EST 08/31/2025 8:57 AM EST us Chente Sebastian MD LAB BLOOD ORDERABLES Final Res ult [facility] [address] [place] [address] * (ABNORMAL) CBC and differential (08/31/2025 8:36 AM EST) WBC Count 4.63 3.70 - 10.30 10*3/uL LAB HEMATOLOGY METHOD 08/31/2025 9:23 AM EST [facility] RBC Count 4.11 3.90 - 5.20 10*6/uL LAB HEMATOLOGY METHOD 08/31/2025 9:23 AM EST [facility] HGB 11.6 11.2 - 15.7 g/dL LAB HEMATOLOGY METHOD 08/31/2025 9:23 AM EST [facility] HCT 35.0 34.0 - 45.0 % LAB HEMATOLOGY METHOD 08/31/2025 9:23 AM EST [facility] Platelet Count 193 155 - 369 10*3/uL LAB HEMATOLOGY METHOD 08/31/2025 9:23 AM EST [facility] MCV 85 79 - 98 fL LAB HEMATOLOGY METHOD 08/31/2025 9:23 AM EST [facility] MCH 28.2 26.0 - 32.0 pg LAB HEMATOLOGY METHOD 08/31/2025 9:23 AM EST [facility] MCHC 33.1 30.7 - 35.5 g/dL LAB HEMATOLOGY METHOD 08/31/2025 9:23 AM EST [facility] RDW 14.6(H) 11.5 - 14.5 % LAB HEMATOLOGY METHOD 08/31/2025 9:23 AM EST [facility] MPV 9.8 8.8 - 12.5 fL LAB HEMATOLOGY METHOD 08/31/2025 9:23 AM EST [facility] nRBC 0.0 <=0.0 per 100 WBCs LAB HEMATOLOGY METHOD 08/31/2025 9:23 AM EST [facility] Differential Type Automated LAB HEMATOLOGY METHOD 08/31/2025 9:23 AM [facility] Neutrophils % 69 % LAB HEMATOLOGY METHOD 08/31/2025 9:23 AM EST [facility] Lymphocytes % 16 % LAB HEMATOLOGY METHOD 08/31/2025 9:23 AM EST [facility] Monocytes % 12 % LAB HEMATOLOGY METHOD 08/31/2025 9:23 AM EST [facility] Eosinophils % 3 % LAB HEMATOLOGY METHOD 08/31/2025 9:23 AM EST [facility] Basophils % 0 % LAB HEMATOLOGY METHOD 08/31/2025 9:23 AM [facility] Immature Granulocytes % 0 % LAB HEMATOLOGY METHOD 08/31/2025 9:23 AM [facility] Neutrophils Absolute 3.13 1.60 - 6.10 10*3/uL LAB HEMATOLOGY METHOD 08/31/2025 9:23 AM EST [facility] Lymphocytes Absolute 0.76(L) 1.20 - 3.90 10*3/uL LAB HEMATOLOGY METHOD 08/31/2025 9:23 AM [facility] Monocytes Absolute 0.56 0.30 - 0.90 10*3/uL LAB HEMATOLOGY METHOD 08/31/2025 9:23 AM [facility] Eosinophils Absolute 0.15 0.00 - 0.50 10*3/uL LAB HEMATOLOGY METHOD 08/31/2025 9:23 AM [facility] Basophils Absolute 0.02 0.00 - 0.10 10*3/uL LAB HEMATOLOGY METHOD 08/31/2025 9:23 AM [facility] Immature Granulocytes Absolute 0.01 0.00 - 0.06 10*3/uL LAB HEMATOLOGY METHOD 08/31/2025 9:23 AM [facility] Blood Venous blood specimen / Unknown Venipuncture / Unknown 08/31/2025 8:36 AM EST 08/31/2025 9:16 AM [facility] 08/31/2025 9:23 AM EST Therapeutic decision making should be based on absolute values, rather than percentages. us Chente Sebastian MD LAB BLOOD ORDERABLES Final Res ult [facility] [address] [place] [id number] documented in this encounter Visit Diagnoses Diagnosis [...] documented as of this encounter Care Teams Provider Relations Specialist Relationship Specialty Start Date End Date System, Provider Not In, [address] [place] [id number] PCP - General Family Medicine 03/23/25 Miguel Perez MD [address] [place] [address] [id number] [place] [address] Consulting Physician Radiation Oncology 04/09/25 Sherin Romero RN None None Registered Nurse Medical Oncology 07/20/25 documented as of this encounter
--- OUTSIDE RECORDS SUMMARY | 2025-08-10 15:00 | XMS_ITS | Encounter Summary ---
Author Organization Healthcare Address [address] [place] [address] Care Team Providers Care Interlibrary Loan Services Librarian Name Role Phone System, Provider Not In MD Primary Care Provider Unavailable Miguel Perez MD Unavailable [phone] Sherin Romero RN Unavailable Unavailable Reason for Visit * Episode Based Medications (Routine) - Authorized Specialty Diagnoses / Procedures Referred By Génesis t Referred To Contact Diagnoses Glioblastoma multiforme (CMS/HCC) Procedures [id number]: Pembrolizumab or Placebo + Optune Every 21 Days / Temozolomide Every 28 Days Chente Sebastian MD 800 [facility] Liyah Conde [address] [address] Phone: tel: fax: Chente Sebastian MD [address] [facility] Liyah Conde [address] [address] Phone: tel: fax: Referral ID Status Reason Start Date Expiration Date V isits Requested Visits Authorized [id number] Authorized 05/29/2025 11/28/2026 1 1 Encounter Details Date Type Department Care Team (Latest Contact Info) Description 08/10/2025 3:00 PM EST - 08/10/2025 11:59 PM EST Hospital Encounter [facility] [address] [place] [phone] Glioblastoma multiforme (CMS/HCC) (Primary Dx) Discharge Disposition: [...] living in a detention (including now)? No 03/23/2025 CAGE ASSESSMENT Answer [...] drink first t carroll in the morning (EYE-INDUSTRIAL ACCOUNTANT) to steady your nerves or to get [...] 3:21 PM EST documented in this encounter Functional Status * BP Answer Date of Assessment Author 136/82 08/10/2025 3:21 PM EST Yessenia Crum * Temp Answer Date of Assessment Author 98.5 08/10/2025 3:21 PM EST Yessenia Crum * Temp src Answer Date of Assessment Author Oral 08/10/2025 3:21 PM EST Yessenia Crum * Pulse Answer Date of Assessment Author 70 08/10/2025 3:21 PM EST Yessenia rCum * Resp Answer Date of Assessment Author 18 08/10/2025 3:21 PM EST Yessenia Crum * SpO2 Answer Date of Assessment Author 96 08/10/2025 3:21 PM EST Yessenia Crum * Height Answer Date of Assessment Author 66 08/10/2025 3:21 PM EST Yessenia Crum * Weight Answer Date of Assessment Author 3467.39 08/10/2025 3:21 PM EST Yessenia Crum * BMI (Calculated) Answer Date of Assessment Author 35.1 08/10/2025 3:21 PM EST Yessenia Crum * Percent Excess Weight Loss Answer Date of Assessment Author 0 08/10/2025 3:21 PM EST Yessenia Crum * Total Weight Change Percent Answer Date of Assessment Author 2222 08/10/2025 3:21 PM EST Yessenia Crum * Weight Change Since Preop Answer Date of Assessment Author 98.28 08/10/2025 3:21 PM EST Yessenia Crum * Initial Excess Weight Answer Date of Assessment Author -58.97 08/10/2025 3:21 PM EST Yessenia Crum * IBW in lbs (Bariatric) Answer Date of Assessment Author 130 08/10/2025 3:21 PM Yessenia Ridley * Weight Change Since Last Visit Answer Date of Assessment Author 98.28 08/10/2025 3:21 PM Yessenia Ridley * IBW in kg (Bariatric) Answer Date of Assessment Author 58.97 08/10/2025 3:21 PM EST Yessenia Crum * Percent of IBW Answer Date of Assessment Author 5,879.92 08/10/2025 3:21 PM EST Yessenia Crum * EBW (kg) Answer Date of Assessment Author 3,465.72 08/10/2025 3:21 PM EST Yessenia Crum * EBW (lbs) Answer Date of Assessment Author 3,459.27 08/10/2025 3:21 PM EST Yessenia Crum * Weight Change 24 hrs Answer Date of Assessment Author -2 08/10/2025 3:21 PM Yessenia Ridley * BSA (Calculated - sq m) Answer Date of Assessment Author 2.14 08/10/2025 3:21 PM EST Yessenia Crum * BMI (Calculated) Answer Date of Assessment Author 34.99 08/10/2025 3:21 PM Yessenia Ridley * IBW/kg (Calculated) Male Answer Date of Assessment Author 63.8 08/10/2025 3:21 PM Yessenia Ridley * IBW/kg (Calculated) Female Answer Date of Assessment Author 59.3 08/10/2025 3:21 PM Yessenia Ridley * Nutrition / Metabolic /Skin Question Answer Date of Assessment Author Fever None 08/10/2025 3:47 PM Elizabeth Rankin RN Diet Solid 08/10/2025 3:47 PM Elizabeth Rankin RN Nausea transient, medication required 08/10/2025 3:47 PM Elizabeth Rankin RN Vomiting 1 episode in 24 hours 08/10/2025 3:47 PM Elizabeth Rankin RN Edema None 08/10/2025 3:47 PM Elizabeth Rankin RN Skin (rash) None 08/10/2025 3:47 PM Elizabeth Rankin RN * Activity / Exercise / Respiratory Question Answer Date of Assessment Author Activity Level Limited self-care confined to bed or chair > 50% of time 08/10/2025 3:47 PM Elizabeth Rankin RN Fatigue Severe loss of abili ty to perform some activities 08/10/2025 3:47 PM Elizabeth Rankin RN Shortness of Breath Dyspnea with ADL 08/10/2025 3:47 P M Elizabeth Rankin RN Cough None 08/10/2025 3:47 PM Elizabeth Rankin RN Activity / Exercise / Respiratory (WDL) X 08/10/2025 3:47 PM Elizabeth Rankin RN * Sensory / Coping / Reproduction Question Answer Date of Assessment Author Sensory Continual numbness tingling interfering with function 08/10/2025 3:47 PM Elizabeth Rankin RN Comments Uses wheelchair 08/10/2025 3:47 PM Elizabeth Mckeon Iv RN Sensory / Coping /Reproduction X 08/10/2025 3:47 PM Elizabeth Rankin RN * Elimination Question Answer Date of Assessment Author Constipation None 08/10/2025 3:47 PM Elizabeth Rankin RN Diarrhea Increase of <4 stool s/day,mild increae in ostomy output 08/10/2025 3:47 PM Elizabeth Rankin RN Urinary Usual urinary pattern 08/10/2025 3:47 PM Elizabeth Rankin RN Elimination X 08/10/2025 3:47 PM Elizabeth Rankin RN * Chemotherapy Nursing Assessment Question Answer Date of Assessment Author Progress Note Heidi. well Pembro.D/C WC w/ family. 08/10/2025 5:09 PM Elizabeth Rankin RN * Restart Vitals Timer Answer Date of Assessment Author Yes 08/10/2025 3:21 PM EST Yessenia Crum * IBW/kg (Calculated) Answer Date of Assessment Author 59.3 08/10/2025 3:21 PM EST Yessenia Crum * Weight in (lb) to have BMI = 25 Answer Date of Assessment Author 154.6 08/10/2025 3:21 PM EST Yessenia Crum * BMI (Calculated) Answer Date of Assessment Author 35.1 08/10/2025 3:21 PM Yessenia Ridley * Percent Excess Weight Loss Answer Date of Assessment Author 0 08/10/2025 3:21 PM EST Yessenia Crum * Weight Change Since Preop Answer Date of Assessment Author 98.3 08/10/2025 3:21 PM EST eYssenia Crum * Initial Excess Weight Answer Date of Assessment Author -58.97 08/10/2025 3:21 PM EST Yessenia Crum * IBW in kg (Bariatric) Answer Date of Assessment Author 58.97 08/10/2025 3:21 PM EST Yessenia Crum * IBW in lb (Bariatric) Answer Date of Assessment Author 130 08/10/2025 3:21 PM Yessenia Ridley * Weight Change Since Last Visit Answer Date of Assessment Author 0.3 08/10/2025 3:21 PM Yessenia Ridley * Percent of IBW Answer Date of Assessment Author 166.7 08/10/2025 3:21 PM EST Yessenia Crum * EBW (kg) Answer Date of Assessment Author 39.31 08/10/2025 3:21 PM EST Yessenia Crum * EBW (lb) Answer Date of Assessment Author 86.71 08/10/2025 3:21 PM EST Yessenia Crum * Difference in Weight Since Last Visit Answer Date of Assessment Author 0.3 08/10/2025 3:21 PM EST Yessenia Crum * Temp (in Celsius) for SNOQUALMIE IV Answer Date of Assessment Author 36.9 08/10/2025 3:21 PM EST Yessenia Crum * Pain Assessment Question Answer Date of Assessment Author Pain Location Generalized 08/10/2025 3:47 PM Elizabeth Rankin RN * IBW/kg (Calculated) Answer Date of Assessment Author 59.3 08/10/2025 3:21 PM EST Yessenia Crum * Adult Low Range Vt 6mL/kg Answer Date of Assessment Author 355.8 08/10/2025 3:21 PM EST Yessenia Crum * Adult Moderate Range Vt 8mL/kg Answer Date of Assessment Author 474.4 08/10/2025 3:21 PM EST Yessenia Crum * Adult High Range Vt 10mL/kg Answer Date of Assessment Author 593 08/10/2025 3:21 PM EST Yessenia Crum * Pain Score Answer Date of Assessment Author 4 08/10/2025 3:21 PM EST Yessenia Crum * Vitals Timer Question Answer Date of Assessment Author Restart Vitals Timer Yes 08/10/2025 3:[address] Yessenia Crum * Pain Screening/Additional Assessments Question Answer Date of Assessment Author Pain Screening/Assessments Pain Screening 08/10/2025 3 :21 PM EST Yessenia Crum * Pain Screening Answer Date of Assessment Author 0-10 08/10/2025 3:21 PM EST Yessenia Crum * BP Answer Date of Assessment Author 136/82 08/10/2025 3:21 PM EST Yessenia Crum * Temp Answer Date of Assessment Author 98.5 08/10/2025 3:21 PM EST Yessenia Crum * Temp src Answer Date of Assessment Author Oral 08/10/2025 3:21 PM EST Yessenia Crum * Pulse Answer Date of Assessment Author 70 08/10/2025 3:21 PM EST Yessenia Crum * Resp Answer Date of Assessment Author 18 08/10/2025 3:21 PM EST Yessenia Crum * SpO2 Answer Date of Assessment Author 96 08/10/2025 3:21 PM EST Yessenia Crum * Height Answer Date of Assessment Author 66 08/10/2025 3:21 PM EST Yessenia Crum * Weight Answer Date of Assessment Author 3467.39 08/10/2025 3:21 PM EST Yessenia Crum * BSA (Calculated - sq m) Answer Date of Assessment Author 2.14 08/10/2025 3:21 PM EST Yessenia Crum * BMI (Calculated) Answer Date of Assessment Author 34.99 08/10/2025 3:21 PM EST Yessenia Crum * Restart Vitals Timer Answer Date of Assessment Author Yes 08/10/2025 3:21 PM EST Yessenia Crum * Weight in (lb) to have BMI = 25 Answer Date of Assessment Author 154.6 08/10/2025 3:21 PM EST Yessenia Crum * Pain Assessment Question Answer Date of Assessment Author Pain Location Generalized 08/10/2025 3:47 PM EST Elizabeth Garcia RN * Pain Score Answer Date of Assessment Author 4 08/10/2025 3:21 PM EST Yessenia Crum documented as of this encounter Mental Status * BP Answer Entry Date Author 136/82 08/10/2025 3:21 PM EST Yessenia Crum * Temp Answer Entry Date Author 98.5 08/10/2025 3:21 PM EST Yessenia Crum * Temp src Answer Entry Date Author Oral 08/10/2025 3:21 PM EST Yessenia Crum * Pulse Answer Entry Date Author 70 08/10/2025 3:21 PM EST Yessenia Crum * Resp Answer Entry Date Author 18 08/10/2025 3:21 PM EST Yessenia Crum * SpO2 Answer Entry Date Author 96 08/10/2025 3:21 PM EST Yessenia Crum * Height Answer Entry Date Author 66 08/10/2025 3:21 PM EST Yessenia Crum * Weight Answer Entry Date Author 3467.39 08/10/2025 3:21 PM EST Yessenia Crum * BMI (Calculated) Answer Entry Date Author 35.1 08/10/2025 3:21 PM EST Yessenia Crum * Percent Excess Weight Loss Answer Entry Date Author 0 08/10/2025 3:21 PM EST Yessenia Crum * Total Weight Change Percent Answer Entry Date Author 2222 08/10/2025 3:21 PM EST Yessenia Crum * Weight Change Since Preop Answer Entry Date Author 98.28 08/10/2025 3:21 PM EST Yessenia Crum * Initial Excess Weight Answer Entry Date Author -58.97 08/10/2025 3:21 PM EST Yessenia Crum * IBW in lbs (Bariatric) Answer Entry Date Author 130 08/10/2025 3:21 PM EST Yessenia Crum * Weight Change Since Last Visit Answer Entry Date Author 98.28 08/10/2025 3:21 PM EST Yessenia Crum * IBW in kg (Bariatric) Answer Entry Date Author 58.97 08/10/2025 3:21 PM EST Yessenia Crum * Percent of IBW Answer Entry Date Author 5,879.92 08/10/2025 3:21 PM EST Yessenia Crum * EBW (kg) Answer Entry Date Author 3,465.72 08/10/2025 3:21 PM EST Yessenia Crum * EBW (lbs) Answer Entry Date Author 3,459.27 08/10/2025 3:21 PM EST Yessenia Crum * Weight Change 24 hrs Answer Entry Date Author -2 08/10/2025 3:21 PM EST Yessenia Crum * BSA (Calculated - sq m) Answer Entry Date Author 2.14 08/10/2025 3:21 PM EST Yessenia Crum * BMI (Calculated) Answer Entry Date Author 34.99 08/10/2025 3:21 PM EST Yessenia Crum * IBW/kg (Calculated) Male Answer Entry Date Author 63.8 08/10/2025 3:21 PM EST Yessenia Crum * IBW/kg (Calculated) Female Answer Entry Date Author 59.3 08/10/2025 3:21 PM EST Yessenia Crum * Restart Vitals Timer Answer Entry Date Author Yes 08/10/2025 3:21 PM EST Yessenia Crum * IBW/kg (Calculated) Answer Entry Date Author 59.3 08/10/2025 3:21 PM EST Yessenia Crum * Restart Pain Assessment Timer Answer Entry Date Author Yes 08/10/2025 3:21 PM EST Yessenia Crum * Weight in (lb) to have BMI = 25 Answer Entry Date Author 154.6 08/10/2025 3:21 PM EST Yessenia Crum * BMI (Calculated) Answer Entry Date Author 35.1 08/10/2025 3:21 PM EST Yessenia Crum * Percent Excess Weight Loss Answer Entry Date Author 0 08/10/2025 3:21 PM Yessenia Ridley * Weight Change Since Preop Answer Entry Date Author 98.3 08/10/2025 3:21 PM EST Yessenia Crum * Initial Excess Weight Answer Entry Date Author -58.97 08/10/2025 3:21 PM EST Yessenia Crum * IBW in kg (Bariatric) Answer Entry Date Author 58.97 08/10/2025 3:21 PM EST Yessenia Crum * IBW in lb (Bariatric) Answer Entry Date Author 130 08/10/2025 3:21 PM Yessenia Ridley * Weight Change Since Last Visit Answer Entry Date Author 0.3 08/10/2025 3:21 PM EST Yessenia Crum * Percent of IBW Answer Entry Date Author 166.7 08/10/2025 3:21 PM EST Yessenia Crum * EBW (kg) Answer Entry Date Author 39.31 08/10/2025 3:21 PM EST Yessenia Crum * EBW (lb) Answer Entry Date Author 86.71 08/10/2025 3:21 PM EST Yessenia Crum * Difference in Weight Since Last Visit Answer Entry Date Author 0.3 08/10/2025 3:21 PM EST Yessenia Crum * Temp (in Celsius) for SNOQUALMIE IV Answer Entry Date Author 36.9 08/10/2025 3:21 PM EST Yessenia Crum * Pain Assessment Question Answer Entry Date Author Pain Location Generalized 08/10/2025 3:47 PM EST Elizabeth Garcia, SKY * IBW/kg (Calculated) Answer Entry Date Author 59.3 08/10/2025 3:21 PM EST Yessenia Crum * Adult Low Range Vt 6mL/kg Answer Entry Date Author 355.8 08/10/2025 3:21 PM EST Yessenia Crum * Adult Moderate Range Vt 8mL/kg Answer Entry Date Author 474.4 08/10/2025 3:21 PM EST Yessenia Crum * Adult High Range Vt 10mL/kg Answer Entry Date Author 593 08/10/2025 3:21 PM Yessenia Ridley * Pain Score Answer Entry Date Author 4 08/10/2025 3:21 PM Yessenia Ridley * Vitals Timer Question Answer Entry Date Author Restart Vitals Timer Yes 08/10/2025 3:21 PM E Yessenia Rouse * Pain Screening Answer Entry Date Author 0-10 08/10/2025 3:21 PM Yessenia Ridley documented in this encounter Medications at Time of Discharge Acetaminophen Extra Strength 500 MG tablet TAKE TWO TABLETS BY MOUTH EVERY 6 HOURS NEEDED FOR PAIN 100 tablet 1 06/15/2025 ascorbic acid (Vitamin C) 500 MG tablet Take 1 tablet by mouth daily. 06/01/2025 Ascorbic Acid 65788 MG/30ML solution Infuse 87.5 g into a [...] [facility] [address] [facility], [address]nd [place] [address] 09/21/2025 9:30 AM EST Office Visit [facility] [address] [facility], [address] [place] [address] Gabe Cifuentes, METAL BONDING PRESS OPERATOR [address] [facility] [address] [place] [address] 09/21/2025 11:00 AM EST Appointment [facility] [address] [place] [address] 10/05/2025 9:00 AM EST Office Visit [facility] [address], [address] [place] [address] Sanchez Zaldivar MD [address] [facility] [place] [address] 10/05/2025 11:00 AM EST Consult [facility] [address], [address] [place] [address] Shy Marquez APRN [address] [facility] [place] [address] 10/12/2025 8:30 AM EST Appointment [facility] [address] [place] [address] documented as of this encounter [...] documented as of this encounter Care Teams Interlibrary Loan Services Librarian Relationship Specialty Start Date End Date System, Provider Not In, [address] [place] [address] PCP - General Family Medicine 03/23/25 Miguel Perez MD [address] [place] [address] [address] [place] [address] Consulting Physician Radiation Oncology 04/09/25 Sherin Romero, RN None None Registered Nurse Medical Oncology 07/20/25 documented as of this encounter
--- OUTSIDE RECORDS SUMMARY | 2025-08-31 08:15 | XMS_ITS | Encounter Summary ---
Author Organization Healthcare Address [address] [place] [address] Care Team Providers Care Silica Filter Operator Name Role Phone System, Provider Not In MD Primary Care Provider Unavailable Miguel ePrez MD Unavailable [phone] Sherin Romero RN Unavailable Unavailable Reason for Visit * Reason Comments Labs Encounter Details Date Type Department Care Team (Latest Contact Info) Description 08/31/2025 8:15 AM EST Clinical Support Pav [facility] Head[facility] Neck [facility] Respiratory [address], [address] [place] [phone] Glioblastoma multiforme (CMS/HCC) Social History Tobacco Use [...] drink first t carroll in the morning (EYE-SCAFFOLDER) to steady your nerves or to get [...] Patient reported weight Answer Entry Date Author 222 08/31/2025 12:15 AM EST Mychart, Generic * Patient reported height Answer Entry Date Author 5'6'' 08/31/2025 12:15 AM EST Mychart, Generic * Patient reported weight one month ago Answer Entry Date Author 222 08/31/2025 12:15 AM EST Mychart, Generic * Patient reported weight six months ago Answer Entry Date Author 250 08/31/2025 12:15 AM EST Mychart, Generic * During the past two weeks my weight has Answer Entry Date Author not changed 08/31/2025 12:15 AM EST Mychart, Generic * Food Intake Answer Entry Date Author unchanged 08/31/2025 12:15 AM EST Mychart, Generic * No problems eating Answer Entry Date Author No 08/31/2025 12:15 AM EST Mychart, Generic * Other symptoms Answer Entry Date Author No 08/31/2025 12:15 AM EST Mychart, Generic * Patient rates activity and functions over past month as Answer Entry Date Author not my normal self, but able to be up and about with fairly normal activities 08/31/2025 12:15 AM EST Mychart, Generic * Weight change % 6 months Answer Entry Date Author -11.2 08/31/2025 12:15 AM EST Mychart, Generic * Weight change % 1 month Answer Entry Date Author 0 08/31/2025 12:15 AM EST Mychart, Generic * Box 1 Answer Entry Date Author 0 08/31/2025 12:15 AM EST Mychart, Generic * Box 2 Answer Entry Date Author 1 08/31/2025 12:15 AM EST Mychart, Generic * Scoring Weight Loss Answer Entry Date Author 0 08/31/2025 12:15 AM EST Mychart, Generic * Box 3 Answer Entry Date Author 9 08/31/2025 12:15 AM EST Mychart, Generic * Box 4 Answer Entry Date Author 1 08/31/2025 12:15 AM EST Mychart, Generic * PG-SGA (SF) -(Additive Score box 1-4) Answer Entry Date Author 11 08/31/2025 12:15 AM EST Mychart, Generic * No appetite, just did not feel like eating Answer Entry Date Author No 08/31/2025 12:15 AM EST Mychart, Generic * Nausea Answer Entry Date Author Yes 08/31/2025 12:15 AM EST Mychart, Generic * Constipation Answer Entry Date Author No 08/31/2025 12:15 AM EST Mychart, Generic * Mouth sores Answer Entry Date Author No 08/31/2025 12:15 AM EST Mychart, Generic * Things taste funny or have no taste Answer Entry Date Author Yes 08/31/2025 12:15 AM EST Mychart, Generic * Problems swallowing Answer Entry Date Author No 08/31/2025 12:15 AM EST Mychart, Generic * Pain Answer Entry Date Author No 08/31/2025 12:15 AM EST Mychart, Generic * Diarrhea Answer Entry Date Author Yes 08/31/2025 12:15 AM EST Mychart, Generic * Dry mouth Answer Entry Date Author No 08/31/2025 12:15 AM EST Mychart, Generic * Smells bother me Answer Entry Date Author No 08/31/2025 12:15 AM EST Mychart, Generic * Feel full quickly Answer Entry Date Author Yes 08/31/2025 12:15 AM EST Mychart, Generic * Fatigue Answer Entry Date Author No 08/31/2025 12:15 AM EST Mychart, Generic * kg/cm or lbs/ft ? Answer Entry Date Author lbs/ft 08/31/2025 12:15 AM EST Mychart, Generic * Box 1 (A) Answer Entry Date Author 0 08/31/2025 12:15 AM EST Mychart, Generic * Global Assessment Score (Box 1 + Box 2 + Box 3 + Box 4 + Worksheet 4) Answer Entry Date Author 11 08/31/2025 12:15 AM EST Mychart, Generic * PG-SGA Categorical Stage Answer Entry Date Author B 08/31/2025 12:15 AM EST Mychart, Generic documented in this encounter Plan of Treatment Upcoming Encounters Date Type Department Care Team ([facility] st Contact Info) Description 09/21/2025 9:15 AM EST Clinical Support Pav [facility] Head[facility] Neck [facility] Respiratory 800 [facility], [address]nd [place] [address] 09/21/2025 9:30 AM EST Office Visit Pav CC Head, Neck & Respiratory 800 [facility], [address]nd [place] [phone] Gabe Cifuentes, RESIDENTIAL CONCIERGE 800 [facility] [address] [place] [address] 09/21/2025 11:00 AM EST Appointment [facility] [address] [place] [phone] 10/05/2025 9:00 AM EST Office Visit [facility] [address], [address] [place] [address] Sanchez Zaldivar MD [address] [place] [address] 10/05/2025 11:00 AM EST Consult [facility] [address], [address] [place] [address] Shy Marquez, RESIDENTIAL CONCIERGE [address] [place] [address] 10/12/2025 8:30 AM EST Appointment PAV S Radiology [address], [address] [place] [phone] documented as of this encounter Procedures Procedure Name Priority Date/Time Associated Diagnosis Comments CBC WITH AUTO DIFFERENTIAL Routine 08/31/2025 8:36 AM EST Glioblastoma multiforme (CMS/HCC) COMPREHENSIVE METABOLIC PANEL, PLASMA Routine 08/31/2025 8:36 AM EST Glioblastoma multiforme (CMS/HCC) documented in this encounter Results * (ABNORMAL) CBC and differential (08/31/2025 8:36 AM EST) WBC Count 4.63 3.70 - 10.30 10*3/uL LAB HEMATOLOGY METHOD 08/31/2025 9:23 AM EST [facility] RBC Count 4.11 3.90 - 5.20 10*6/uL LAB HEMATOLOGY METHOD 08/31/2025 9:23 AM EST [facility] HGB 11.6 11.2 - 15.7 g/dL LAB HEMATOLOGY METHOD 08/31/2025 9:23 AM EST [facility] HCT 35.0 34.0 - 45.0 % LAB HEMATOLOGY METHOD 08/31/2025 9:23 AM EST [facility] Platelet Count 193 155 - 369 10*3/uL LAB HEMATOLOGY METHOD 08/31/2025 9:23 AM EST [facility] MCV 85 79 - 98 fL LAB HEMATOLOGY METHOD 08/31/2025 9:23 AM [facility] MCH 28.2 26.0 - 32.0 pg LAB HEMATOLOGY METHOD 08/31/2025 9:23 AM [facility] MCHC 33.1 30.7 - 35.5 g/dL LAB HEMATOLOGY METHOD 08/31/2025 9:23 AM [facility] RDW 14.6(H) 11.5 - 14.5 % LAB HEMATOLOGY METHOD 08/31/2025 9:23 AM [facility] MPV 9.8 8.8 - 12.5 fL LAB HEMATOLOGY METHOD 08/31/2025 9:23 AM [facility] nRBC 0.0 <=0.0 per 100 WBCs LAB HEMATOLOGY METHOD 08/31/2025 9:23 AM [facility] Differential Type Automated LAB HEMATOLOGY METHOD 08/31/2025 9:23 AM [facility] Neutrophils % 69 % LAB HEMATOLOGY METHOD 08/31/2025 9:23 AM [facility] Lymphocytes % 16 % LAB HEMATOLOGY METHOD 08/31/2025 9:23 AM EST [facility] Monocytes % 12 % LAB HEMATOLOGY METHOD 08/31/2025 9:23 AM [facility] Eosinophils % 3 % LAB HEMATOLOGY METHOD 08/31/2025 9:23 AM EST [facility] Basophils % 0 % LAB HEMATOLOGY METHOD 08/31/2025 9:23 AM EST [facility] Immature Granulocytes % 0 % LAB HEMATOLOGY METHOD 08/31/2025 9:23 AM EST [facility] Neutrophils Absolute 3.13 1.60 - 6.10 10*3/uL LAB HEMATOLOGY METHOD 08/31/2025 9:23 AM EST [facility] Lymphocytes Absolute 0.76(L) 1.20 - 3.90 10*3/uL LAB HEMATOLOGY METHOD 08/31/2025 9:23 AM EST [facility] Monocytes Absolute 0.56 0.30 - 0.90 10*3/uL LAB HEMATOLOGY METHOD 08/31/2025 9:23 AM EST [facility] Eosinophils Absolute 0.15 0.00 - 0.50 10*3/uL LAB HEMATOLOGY METHOD 08/31/2025 9:23 AM EST [facility] Basophils Absolute 0.02 0.00 - 0.10 10*3/uL LAB HEMATOLOGY METHOD 08/31/2025 9:23 AM EST [facility] Immature Granulocytes Absolute 0.01 0.00 - 0.06 10*3/uL LAB HEMATOLOGY METHOD 08/31/2025 9:23 AM EST [facility] Blood Venous blood specimen / Unknown Venipuncture / Unknown 08/31/2025 8:36 AM EST 08/31/2025 9:16 AM EST Narrative [facility] - 08/31/2025 9:23 AM EST Therapeutic decision making should be based on absolute values, rather than percentages. us Chente Sebastian MD LAB BLOOD ORDERABLES Final Res ult [facility] [address] [place] [address] * (ABNORMAL) Comprehensive metabolic panel (08/31/2025 8:36 AM EST) Glucose, Plasma 96 74 - 99 mg/dL 08/31/2025 9:27 AM EST [facility] BUN, Plasma 10 8 - 23 mg/dL 08/31/2025 9:27 AM EST [facility] Creatinine, Plasma 0.59(L) 0.60 - 1.10 mg/dL 08/31/2025 9:27 AM EST [facility] BUN/Creatinine Ratio 17 08/31/2025 9:27 AM EST [facility] Sodium, Plasma 140 136 - 145 mmol/L 08/31/2025 9:27 AM EST [facility] Potassium, Plasma 3.3(L) 3.6 - 4.9 mmol/L 08/31/2025 9:27 AM EST [facility] Chloride, Plasma 105 97 - 107 mmol/L 08/31/2025 9:27 AM EST [facility] CO2, Plasma 25 22 - 29 mmol/L 08/31/2025 9:27 AM EST [facility] Anion Gap 10 6 - 16 mmol/L 08/31/2025 9:27 AM EST [facility] Total Calcium, Plasma 9.3 8.9 - 10.2 mg/dL 08/31/2025 9:27 AM EST [facility] Total Protein 6.5 6.3 - 7.9 g/dL 08/31/2025 9:27 AM EST [facility] Albumin, Plasma 3.9 3.5 - 5.2 g/dL 08/31/2025 9:27 AM EST [facility] AST, Plasma 14 10 - 35 U/L 08/31/2025 9:27 AM EST [facility] ALT, Plasma 11 10 - 35 U/L 08/31/2025 9:27 AM EST [facility] Alkaline Phosphatase, Plasma 59 46 - 142 U/L 08/31/2025 9:27 AM EST [facility] Total Bilirubin, Plasma 0.5 0.2 - 1.1 mg/dL 08/31/2025 9:27 AM EST [facility] eGFRcr 98.9 mL/min/1.7 3m*2 08/31/2025 9:27 AM EST [facility] Comment:Reported eGFRcr in m L/min/1.73m2 is based the CKD-EPI 2020 equation that does not use a race coefficient. Blood Venous blood specimen / Unknown Venipuncture / Unknown 08/31/2025 8:36 AM EST 08/31/2025 8:57 AM EST us Chente Sebastian MD LAB BLOOD ORDERABLES Final Res ult [facility] [address] [place] [address] documented in this encounter Visit Diagnoses Diagnosis Glioblastoma multiforme (CMS/HCC) Malignant neoplasm of brain, unspecified site documented in this encounter Additional Health Concerns Assessment Noted Time PHQ-9 Depression Total Score: 6 10/08/19 2:13 PM EST A fall risk assessment has been complete d for the patient 08/31/2025 9:10 AM EST A Body Mass Index follow-up plan has been documented for the patient 07/06/2025 10:36 AM EDT documented as of this encounter Care Teams Silica Filter Operator Relationship Specialty Start Date End Date System, Provider Not In, [address] [place] [id number] PCP - General Family Medicine 03/23/25 Miguel Perez MD [address] [place] [phone] Consulting Physician Radiation Oncology 04/09/25 Sherin Romero RN None None Registered Nurse Medical Oncology 07/20/25 documented as of this encounter
--- OUTSIDE RECORDS SUMMARY | 2025-08-31 08:30 | XMS_ITS | Encounter Summary ---
Author Organization Healthcare Address [address] [place] [address] Care Team Providers Care Lawn Care Technician Name Role Phone System, Provider Not In MD Primary Care Provider Unavailable Miguel Perez MD Unavailable Sherin Romero RN Unavailable Unavailable Reason for Visit * Reason Comments Follow-up * Episode Based Medications (Routine) - Authorized Specialty Diagnoses / Procedures Referred By Contguerline t Referred To Contact Diagnoses Glioblastoma multiforme (CMS/HCC) Procedures [id number]: Pembrolizumab or Placebo + Optune Every 21 Days / Temozolomide Every 28 Days Chente Sebastian MD [address] [address] Phone: tel: fax: Chente Sebastian MD [address] [facility] [address] [address] Phone: tel: fax: Referral ID Status Reason Start Date Expiration Date V isits Requested Visits Authorized [id number] Authorized 05/29/2025 11/28/2026 1 1 Encounter Details Date Type Department Care Team (Nora Contact Info) Description 08/31/2025 8:30 AM EST Office Visit [facility] [address] [place] [id number] Gabe Cifuentes, DIRECTOR DIVERSITY [address] [place] [address] Glioblastoma multiforme (CMS/HCC) (Primary Dx); Research study [...] any time in the past 12 m [facility], were you homeless or living [...] drink first t carroll in the morning (EYE-BUFFER NICKEL) to steady your nerves or to get rid of a hangover? 0 03/20/2025 CAGE Questionnaire Score 0 025 Utilities Answer Date Recorded In the past 12 months has th [employer], gas, oil, or water [employer] threatened to shut off services in your home? No 03/23/2025 Comments No Sex and Gender Information Value Date Recorded Sex Assigned at Female 09/22/2024 11:47 AM EST Legal Sex Female 8:04 PM EDT Gender Identity Not on file Sexual Orientation Not on file documented as of this encounter Last Filed Vital Signs Vital Sign Reading Time Taken Comments Blood Pressure 140/82 08/31/2025 8:31 AM EST Pulse 76 08/31/2025 8:31 AM EST Temperature 36.3 C (97.4 F) 08/31/2025 8:31 AM EST Respiratory Rate 16 08/31/2025 8:31 AM EST Oxygen Saturation 97% 08/31/2025 8:31 AM EST Inhaled Oxygen Concentration - - Weight 96.2 kg (212 lb 1.3 oz) 08/31/2025 8:31 A M EST Height 167.6 cm (5' 6 ) 08/31/2025 8:31 AM EST Body Mass Index 34.23 08/31/2025 8:31 AM EST documented in this encounter Functional Status * BP Answer Date of Assessment Author 140/82 08/31/2025 8:31 AM EST Meneses, C rystal * Temp Answer Date of Assessment Author 97.4 08/31/2025 8:31 AM EST Meneses, C rystal * Temp src Answer Date of Assessment Author Oral 08/31/2025 8:31 AM EST Meneses, C rystal * Pulse Answer Date of Assessment Author 76 08/31/2025 8:31 AM EST Meneses, C rystal * Resp Answer Date of Assessment Author 16 08/31/2025 8:31 AM EST Meneses, C rystal * SpO2 Answer Date of Assessment Author 97 08/31/2025 8:31 AM EST Meneses, C rystal * Height Answer Date of Assessment Author 66 08/31/2025 8:31 AM EST Meneses, C rystal * Weight Answer Date of Assessment Author 3393.32 08/31/2025 8:31 AM EST Meneses, C rystal * BMI (Calculated) Answer Date of Assessment Author 34.3 08/31/2025 8:31 AM EST Meneses, C rystal * Percent Excess Weight Loss Answer Date of Assessment Author 0 08/31/2025 8:31 AM EST Meneses, C rystal * Total Weight Change Percent Answer Date of Assessment Author 2222 08/31/2025 8:31 AM EST Meneses, C rystal * Weight Change Since Preop Answer Date of Assessment Author 96.18 08/31/2025 8:31 AM EST Meneses, C rystal * Initial Excess Weight Answer Date of Assessment Author -58.97 08/31/2025 8:31 AM EST Meneses, C rystal * IBW in lbs (Bariatric) Answer Date of Assessment Author 130 08/31/2025 8:31 AM EST Meneses, C rystal * Weight Change Since Last Visit Answer Date of Assessment Author 96.18 08/31/2025 8:31 AM EST Meneses, C rystal * IBW in kg (Bariatric) Answer Date of Assessment Author 58.97 08/31/2025 8:31 AM EST Meneses, C rystal * Percent of IBW Answer Date of Assessment Author 5,754.32 08/31/2025 8:31 AM EST Meneses, C rystal * EBW (kg) Answer Date of Assessment Author 3,391.65 08/31/2025 8:31 AM EST Meneses, C rystal * EBW (lbs) Answer Date of Assessment Author 3,385.2 08/31/2025 8:31 AM EST [facility] * Appointment Type Answer Date of Assessment Author Surveillance appointment 08/31/2025 12:18 AM EST Mychart, Generic * Based on the past week, please select the number that best describes how much distress you have had. 0 being none and 10 being the most extreme. Answer Date of Assessment Author 2 08/31/2025 12:18 AM EST Mychart, Generic * Taking care of myself Answer Date of Assessment Author 0 08/31/2025 12:18 AM EST Mychart, Generic * Housing Answer Date of Assessment Author 0 08/31/2025 12:18 AM EST Mychart, Generic * Finances Answer Date of Assessment Author 0 08/31/2025 12:18 AM EST Mychart, Generic * Transportation Answer Date of Assessment Author 0 08/31/2025 12:18 AM EST Mychart, Generic * Work Answer Date of Assessment Author 1 08/31/2025 12:18 AM EST Mychart, Generic * Treatment Decisions Answer Date of Assessment Author 0 08/31/2025 12:18 AM EST Mychart, Generic * Relationship with children Answer Date of Assessment Author 0 08/31/2025 12:18 AM EST Mychart, Generic * Relationship with spouse or partner Answer Date of Assessment Author 0 08/31/2025 12:18 AM EST Mychart, Generic * Ability to have children Answer Date of Assessment Author 0 08/31/2025 12:18 AM EST Mychart, Generic * Sadness or Depression Answer Date of Assessment Author 0 08/31/2025 12:18 AM EST Mychart, Generic * Fear Answer Date of Assessment Author 0 08/31/2025 12:18 AM EST Mychart, Generic * Worry or anxiety Answer Date of Assessment Author 0 08/31/2025 12:18 AM EST Mychart, Generic * Loss of interest or enjoyment Answer Date of Assessment Author 0 08/31/2025 12:18 AM EST Mychart, Generic * Changes in eating Answer Date of Assessment Author 0 08/31/2025 12:18 AM EST Mychart, Generic * Fatigue Answer Date of Assessment Author 0 08/31/2025 12:18 AM EST Mychart, Generic * Memory/Concentration Answer Date of Assessment Author 0 08/31/2025 12:18 AM EST Mychart, Generic * Pain Answer Date of Assessment Author 1 08/31/2025 12:18 AM EST Mychart, Generic * Sexual health Answer Date of Assessment Author 0 08/31/2025 12:18 AM EST Mychart, Generic * Sleep Answer Date of Assessment Author 1 08/31/2025 12:18 AM EST Mychart, Generic * Substance use Answer Date of Assessment Author 0 08/31/2025 12:18 AM EST Mychart, Generic * Weight Change 24 hrs Answer Date of Assessment Author -2.1 08/31/2025 8:31 AM EST [facility] * Taking care of others Answer Date of Assessment Author 0 08/31/2025 12:18 AM EST Mychart, Generic * School Answer Date of Assessment Author No 08/31/2025 12:18 AM EST Mychart, Generic * Insurance Answer Date of Assessment Author 0 08/31/2025 12:18 AM EST Mychart, Generic * foster care worker Answer Date of Assessment Author 0 08/31/2025 12:18 AM EST Mychart, Generic * Having enough food Answer Date of Assessment Author 0 08/31/2025 12:18 AM EST Mychart, Generic * Access to medicine Answer Date of Assessment Author 0 08/31/2025 12:18 AM EST Mychart, Generic * Tobacco use Answer Date of Assessment Author 0 08/31/2025 12:18 AM EST Mychart, Generic * Loss or change of physical abilities Answer Date of Assessment Author 0 08/31/2025 12:18 AM EST Mychart, Generic * Grief or loss Answer Date of Assessment Author 0 08/31/2025 12:18 AM EST Mychart, Generic * Loneliness Answer Date of Assessment Author 0 08/31/2025 12:18 AM EST Mychart, Generic * Anger Answer Date of Assessment Author 0 08/31/2025 12:18 AM EST Mychart, Generic * Changes in appearance Answer Date of Assessment Author 0 08/31/2025 12:18 AM EST Mychart, Generic * Feelings of worthlessness or being a burden Answer Date of Assessment Author 0 08/31/2025 12:18 AM EST Mychart, Generic * Relationship with family members Answer Date of Assessment Author 0 08/31/2025 12:18 AM EST Mychart, Generic * Communication with health care team Answer Date of Assessment Author 0 08/31/2025 12:18 AM EST Mychart, Generic * Relationship with friends or coworkers Answer Date of Assessment Author 0 08/31/2025 12:18 AM EST Mychart, Generic * Sense of meaning or purpose Answer Date of Assessment Author 0 08/31/2025 12:18 AM EST Mychart, Generic * Change in ena or beliefs Answer Date of Assessment Author 0 08/31/2025 12:18 AM EST Mychart, Generic * , dying or afterlife Answer Date of Assessment Author 0 08/31/2025 12:18 AM EST Mychart, Generic * Conflict between beliefs and cancer treatments Answer Date of Assessment Author 0 08/31/2025 12:18 AM EST Mychart, Generic * Relationship with the sacred Answer Date of Assessment Author 0 08/31/2025 12:18 AM EST Mychart, Generic * Ritual or dietary needs Answer Date of Assessment Author 0 08/31/2025 12:18 AM EST Mychart, Generic * BSA (Calculated - sq m) Answer Date of Assessment Author 2.12 08/31/2025 8:31 AM EST Meneses, C rystal * BMI (Calculated) Answer Date of Assessment Author 34.25 08/31/2025 8:31 AM EST Meneses, C rystal * BP Location Answer Date of Assessment Author Left arm 08/31/2025 8:31 AM EST Meneses, C rystal * IBW/kg (Calculated) Male Answer Date of Assessment Author 63.8 08/31/2025 8:31 AM EST Meneses, C rystal * IBW/kg (Calculated) Female Answer Date of Assessment Author 59.3 08/31/2025 8:31 AM EST Meneses, C rystal * Restart Vitals Timer Answer Date of Assessment Author Yes 08/31/2025 8:31 AM EST Meneses, C rystal * IBW/kg (Calculated) Answer Date of Assessment Author 59.3 08/31/2025 8:31 AM EST Meneses, C rystal * Weight in (lb) to have BMI = 25 Answer Date of Assessment Author 154.6 08/31/2025 8:31 AM EST Meneses, C rystal * BMI (Calculated) Answer Date of Assessment Author 34.3 08/31/2025 8:31 AM EST Meneses, C rystal * Percent Excess Weight Loss Answer Date of Assessment Author 0 08/31/2025 8:31 AM EST Meneses, C rystal * Weight Change Since Preop Answer Date of Assessment Author 96.2 08/31/2025 8:31 AM EST Meneses, C rystal * Initial Excess Weight Answer Date of Assessment Author -58.97 08/31/2025 8:31 AM EST Meneses, C rystal * IBW in kg (Bariatric) Answer Date of Assessment Author 58.97 08/31/2025 8:31 AM EST Meneses, C rystal * IBW in lb (Bariatric) Answer Date of Assessment Author 130 08/31/2025 8:31 AM EST Meneses, C rystal * Weight Change Since Last Visit Answer Date of Assessment Author -2.1 08/31/2025 8:31 AM EST Meneses, C rystal * Percent of IBW Answer Date of Assessment Author 163.14 08/31/2025 8:31 AM EST Meneses, C rystal * EBW (kg) Answer Date of Assessment Author 37.21 08/31/2025 8:31 AM EST Meneses, C rystal * EBW (lb) Answer Date of Assessment Author 82.08 08/31/2025 8:31 AM EST Meneses, C rystal * Difference in Weight Since Last Visit Answer Date of Assessment Author -2.1 08/31/2025 8:31 AM EST Meneses, C rystal * Temp (in Celsius) for [place] IV Answer Date of Assessment Author 36.3 08/31/2025 8:31 AM EST Meneses, C rystal * IBW/kg (Calculated) Answer Date of Assessment Author 59.3 08/31/2025 8:31 AM EST Meneses, C rystal * Adult Low Range Vt 6mL/kg Answer Date of Assessment Author 355.8 08/31/2025 8:31 AM EST Meneses, C rystal * Adult Moderate Range Vt 8mL/kg Answer Date of Assessment Author 474.4 08/31/2025 8:31 AM EST Meneses, C rystal * Adult High Range Vt 10mL/kg Answer Date of Assessment Author 593 08/31/2025 8:31 AM EST Meneses, C rystal * Pain Score Answer Date of Assessment Author 3 08/31/2025 8:31 AM EST Meneses, C rystal * Vitals Timer Question Answer Date of Assessment Author Restart Vitals Timer Yes 08/31/2025 8:[address] Meneses, Crystal * Patient Position Answer Date of Assessment Author Sitting 08/31/2025 8:31 AM EST Meneses, C rystal * Pain Screening/Additional Assessments Question Answer Date of Assessment Author Pain Screening/Assessments Pain Screening 08/31/2025 8 :31 AM EST Meneses, Crystal * Pain Screening Answer Date of Assessment Author 0-10 08/31/2025 8:31 AM EST Meneses, C rystal * BP Answer Date of Assessment Author 140/82 08/31/2025 8:31 AM EST Meneses, C rystal * Temp Answer Date of Assessment Author 97.4 08/31/2025 8:31 AM EST Meneses, C rystal * Temp src Answer Date of Assessment Author Oral 08/31/2025 8:31 AM EST Meneses, C rystal * Pulse Answer Date of Assessment Author 76 08/31/2025 8:31 AM EST Meneses, C rystal * Resp Answer Date of Assessment Author 16 08/31/2025 8:31 AM EST Meneses, C rystal * SpO2 Answer Date of Assessment Author 97 08/31/2025 8:31 AM EST Meneses, C rystal * Height Answer Date of Assessment Author 66 08/31/2025 8:31 AM EST Meneses, C rystal * Weight Answer Date of Assessment Author 3393.32 08/31/2025 8:31 AM EST Meneses, C rystal * Appointment Type Answer Date of Assessment Author Surveillance appointment 08/31/2025 12:18 AM EST Mychart, Generic * Based on the past week, please select the number that best describes how much distress you have had. 0 being none and 10 being the most extreme. Answer Date of Assessment Author 2 08/31/2025 12:18 AM EST Mychart, Generic * Taking care of myself Answer Date of Assessment Author 0 08/31/2025 12:18 AM EST Mychart, Generic * Housing Answer Date of Assessment Author 0 08/31/2025 12:18 AM EST Mychart, Generic * Finances Answer Date of Assessment Author 0 08/31/2025 12:18 AM EST Mychart, Generic * Transportation Answer Date of Assessment Author 0 08/31/2025 12:18 AM EST Mychart, Generic * Work Answer Date of Assessment Author 1 08/31/2025 12:18 AM EST Mychart, Generic * Treatment Decisions Answer Date of Assessment Author 0 08/31/2025 12:18 AM EST Mychart, Generic * Relationship with children Answer Date of Assessment Author 0 08/31/2025 12:18 AM EST Mychart, Generic * Relationship with spouse or partner Answer Date of Assessment Author 0 08/31/2025 12:18 AM EST Mychart, Generic * Ability to have children Answer Date of Assessment Author 0 08/31/2025 12:18 AM EST Mychart, Generic * Sadness or Depression Answer Date of Assessment Author 0 08/31/2025 12:18 AM EST Mychart, Generic * Fear Answer Date of Assessment Author 0 08/31/2025 12:18 AM EST Mychart, Generic * Worry or anxiety Answer Date of Assessment Author 0 08/31/2025 12:18 AM EST Mychart, Generic * Loss of interest or enjoyment Answer Date of Assessment Author 0 08/31/2025 12:18 AM EST Mychart, Generic * Changes in eating Answer Date of Assessment Author 0 08/31/2025 12:18 AM EST Mychart, Generic * Fatigue Answer Date of Assessment Author 0 08/31/2025 12:18 AM EST Mychart, Generic * Memory/Concentration Answer Date of Assessment Author 0 08/31/2025 12:18 AM EST Mychart, Generic * Pain Answer Date of Assessment Author 1 08/31/2025 12:18 AM EST Mychart, Generic * Sexual health Answer Date of Assessment Author 0 08/31/2025 12:18 AM EST Mychart, Generic * Sleep Answer Date of Assessment Author 1 08/31/2025 12:18 AM EST Mychart, Generic * Substance use Answer Date of Assessment Author 0 08/31/2025 12:18 AM EST Mychart, Generic * Taking care of others Answer Date of Assessment Author 0 08/31/2025 12:18 AM EST Mychart, Generic * School Answer Date of Assessment Author No 08/31/2025 12:18 AM EST Mychart, Generic * Insurance Answer Date of Assessment Author 0 08/31/2025 12:18 AM EST Mychart, Generic * foster care worker Answer Date of Assessment Author 0 08/31/2025 12:18 AM EST Mychart, Generic * Having enough food Answer Date of Assessment Author 0 08/31/2025 12:18 AM EST Mychart, Generic * Access to medicine Answer Date of Assessment Author 0 08/31/2025 12:18 AM EST Mychart, Generic * Tobacco use Answer Date of Assessment Author 0 08/31/2025 12:18 AM EST Mychart, Generic * Loss or change of physical abilities Answer Date of Assessment Author 0 08/31/2025 12:18 AM EST Mychart, Generic * Grief or loss Answer Date of Assessment Author 0 08/31/2025 12:18 AM EST Mychart, Generic * Loneliness Answer Date of Assessment Author 0 08/31/2025 12:18 AM EST Mychart, Generic * Anger Answer Date of Assessment Author 0 08/31/2025 12:18 AM EST Mychart, Generic * Changes in appearance Answer Date of Assessment Author 0 08/31/2025 12:18 AM EST Mychart, Generic * Feelings of worthlessness or being a burden Answer Date of Assessment Author 0 08/31/2025 12:18 AM EST Mychart, Generic * Relationship with family members Answer Date of Assessment Author 0 08/31/2025 12:18 AM EST Mychart, Generic * Communication with health care team Answer Date of Assessment Author 0 08/31/2025 12:18 AM EST Mychart, Generic * Relationship with friends or coworkers Answer Date of Assessment Author 0 08/31/2025 12:18 AM EST Mychart, Generic * Sense of meaning or purpose Answer Date of Assessment Author 0 08/31/2025 12:18 AM EST Mychart, Generic * Change in ena or beliefs Answer Date of Assessment Author 0 08/31/2025 12:18 AM EST Mychart, Generic * , dying or afterlife Answer Date of Assessment Author 0 08/31/2025 12:18 AM EST Mychart, Generic * Conflict between beliefs and cancer treatments Answer Date of Assessment Author 0 08/31/2025 12:18 AM EST Mychart, Generic * Relationship with the sacred Answer Date of Assessment Author 0 08/31/2025 12:18 AM EST Mychart, Generic * Ritual or dietary needs Answer Date of Assessment Author 0 08/31/2025 12:18 AM EST Mychart, Generic * BSA (Calculated - sq m) Answer Date of Assessment Author 2.12 08/31/2025 8:31 AM EST Meneses, C rystal * BMI (Calculated) Answer Date of Assessment Author 34.25 08/31/2025 8:31 AM EST Meneses, C rystal * BP Location Answer Date of Assessment Author Left arm 08/31/2025 8:31 AM EST Meneses, C rystal * Restart Vitals Timer Answer Date of Assessment Author Yes 08/31/2025 8:31 AM EST Meneses, C rystal * Weight in (lb) to have BMI = 25 Answer Date of Assessment Author 154.6 08/31/2025 8:31 AM EST Meneses, C rystal * Pain Score Answer Date of Assessment Author 3 08/31/2025 8:31 AM EST Meneses, C rystal * Patient Position Answer Date of Assessment Author Sitting 08/31/2025 8:31 AM EST Meneses, C rystal documented as of this encounter Mental Status * BP Answer Entry Date Author 140/82 08/31/2025 8:31 AM EST Meneses, C rystal * Temp Answer Entry Date Author 97.4 08/31/2025 8:31 AM EST Meneses, C rystal * Temp src Answer Entry Date Author Oral 08/31/2025 8:31 AM EST Meneses, C rystal * Pulse Answer Entry Date Author 76 08/31/2025 8:31 AM EST Meneses, C rystal * Resp Answer Entry Date Author 16 08/31/2025 8:31 AM EST Meneses, C rystal * SpO2 Answer Entry Date Author 97 08/31/2025 8:31 AM EST Meneses, C rystal * Height Answer Entry Date Author 66 08/31/2025 8:31 AM EST Meneses, C rystal * Weight Answer Entry Date Author 3393.32 08/31/2025 8:31 AM EST Meneses, C rystal * BMI (Calculated) Answer Entry Date Author 34.3 08/31/2025 8:31 AM EST Meneses, C rystal * Percent Excess Weight Loss Answer Entry Date Author 0 08/31/2025 8:31 AM EST Meneses, C rystal * Total Weight Change Percent Answer Entry Date Author 2222 08/31/2025 8:31 AM EST Meneses, C rystal * Weight Change Since Preop Answer Entry Date Author 96.18 08/31/2025 8:31 AM EST Meneses, C rystal * Initial Excess Weight Answer Entry Date Author -58.97 08/31/2025 8:31 AM EST Meneses, C rystal * IBW in lbs (Bariatric) Answer Entry Date Author 130 08/31/2025 8:31 AM EST Meneses, C rystal * Weight Change Since Last Visit Answer Entry Date Author 96.18 08/31/2025 8:31 AM EST Meneses, C rystal * IBW in kg (Bariatric) Answer Entry Date Author 58.97 08/31/2025 8:31 AM EST Meneses, C rystal * Percent of IBW Answer Entry Date Author 5,754.32 08/31/2025 8:31 AM EST Meneses, C rystal * EBW (kg) Answer Entry Date Author 3,391.65 08/31/2025 8:31 AM EST Meneses, C rystal * EBW (lbs) Answer Entry Date Author 3,385.2 08/31/2025 8:31 AM EST Meneses, C rystal * Appointment Type Answer Entry Date Author Surveillance appointment 08/31/2025 12:18 AM EST Mychart, Generic * Based on the past week, please select the number that best describes how much distress you have had. 0 being none and 10 being the most extreme. Answer Entry Date Author 2 08/31/2025 12:18 AM EST Mychart, Generic * Taking care of myself Answer Entry Date Author 0 08/31/2025 12:18 AM EST Mychart, Generic * Housing Answer Entry Date Author 0 08/31/2025 12:18 AM EST Mychart, Generic * Finances Answer Entry Date Author 0 08/31/2025 12:18 AM EST Mychart, Generic * Transportation Answer Entry Date Author 0 08/31/2025 12:18 AM EST Mychart, Generic * Work Answer Entry Date Author 1 08/31/2025 12:18 AM EST Mychart, Generic * Treatment Decisions Answer Entry Date Author 0 08/31/2025 12:18 AM EST Mychart, Generic * Relationship with children Answer Entry Date Author 0 08/31/2025 12:18 AM EST Mychart, Generic * Relationship with spouse or partner Answer Entry Date Author 0 08/31/2025 12:18 AM EST Mychart, Generic * Ability to have children Answer Entry Date Author 0 08/31/2025 12:18 AM EST Mychart, Generic * Sadness or Depression Answer Entry Date Author 0 08/31/2025 12:18 AM EST Mychart, Generic * Fear Answer Entry Date Author 0 08/31/2025 12:18 AM EST Mychart, Generic * Worry or anxiety Answer Entry Date Author 0 08/31/2025 12:18 AM EST Mychart, Generic * Loss of interest or enjoyment Answer Entry Date Author 0 08/31/2025 12:18 AM EST Mychart, Generic * Changes in eating Answer Entry Date Author 0 08/31/2025 12:18 AM EST Mychart, Generic * Fatigue Answer Entry Date Author 0 08/31/2025 12:18 AM EST Mychart, Generic * Memory/Concentration Answer Entry Date Author 0 08/31/2025 12:18 AM EST Mychart, Generic * Pain Answer Entry Date Author 1 08/31/2025 12:18 AM EST Mychart, Generic * Sexual health Answer Entry Date Author 0 08/31/2025 12:18 AM EST Mychart, Generic * Sleep Answer Entry Date Author 1 08/31/2025 12:18 AM EST Mychart, Generic * Substance use Answer Entry Date Author 0 08/31/2025 12:18 AM EST Mychart, Generic * Weight Change 24 hrs Answer Entry Date Author -2.1 08/31/2025 8:31 AM EST [facility] * Taking care of others Answer Entry Date Author 0 08/31/2025 12:18 AM EST Mychart, Generic * School Answer Entry Date Author No 08/31/2025 12:18 AM EST Mychart, Generic * Insurance Answer Entry Date Author 0 08/31/2025 12:18 AM EST Mychart, Generic * foster care worker Answer Entry Date Author 0 08/31/2025 12:18 AM EST Mychart, Generic * Having enough food Answer Entry Date Author 0 08/31/2025 12:18 AM EST Mychart, Generic * Access to medicine Answer Entry Date Author 0 08/31/2025 12:18 AM EST Mychart, Generic * Tobacco use Answer Entry Date Author 0 08/31/2025 12:18 AM EST Mychart, Generic * Loss or change of physical abilities Answer Entry Date Author 0 08/31/2025 12:18 AM EST Mychart, Generic * Grief or loss Answer Entry Date Author 0 08/31/2025 12:18 AM EST Mychart, Generic * Loneliness Answer Entry Date Author 0 08/31/2025 12:18 AM EST Mychart, Generic * Anger Answer Entry Date Author 0 08/31/2025 12:18 AM EST Mychart, Generic * Changes in appearance Answer Entry Date Author 0 08/31/2025 12:18 AM EST Mychart, Generic * Feelings of worthlessness or being a burden Answer Entry Date Author 0 08/31/2025 12:18 AM EST Mychart, Generic * Relationship with family members Answer Entry Date Author 0 08/31/2025 12:18 AM EST Mychart, Generic * Communication with health care team Answer Entry Date Author 0 08/31/2025 12:18 AM EST Mychart, Generic * Relationship with friends or coworkers Answer Entry Date Author 0 08/31/2025 12:18 AM EST Mychart, Generic * Sense of meaning or purpose Answer Entry Date Author 0 08/31/2025 12:18 AM EST Mychart, Generic * Change in ena or beliefs Answer Entry Date Author 0 08/31/2025 12:18 AM EST Mychart, Generic * , dying or afterlife Answer Entry Date Author 0 08/31/2025 12:18 AM EST Mychart, Generic * Conflict between beliefs and cancer treatments Answer Entry Date Author 0 08/31/2025 12:18 AM EST Mychart, Generic * Relationship with the sacred Answer Entry Date Author 0 08/31/2025 12:18 AM EST Mychart, Generic * Ritual or dietary needs Answer Entry Date Author 0 08/31/2025 12:18 AM EST Mychart, Generic * Patient reported weight Answer Entry Date [...] B 08/31/2025 12:15 AM EST Mychart, Generic * BSA (Calculated - sq m) Answer Entry Date Author 2.12 08/31/2025 8:31 AM EST Meneses, C rystal * BMI (Calculated) Answer Entry Date Author 34.25 08/31/2025 8:31 AM EST Meneses, C rystal * BP Location Answer Entry Date Author Left arm 08/31/2025 8:31 AM EST Meneses, C rystal * IBW/kg (Calculated) Male Answer Entry Date Author 63.8 08/31/2025 8:31 AM EST Meneses, C rystal * IBW/kg (Calculated) Female Answer Entry Date Author 59.3 08/31/2025 8:31 AM EST Meneses, C rystal * Restart Vitals Timer Answer Entry Date Author Yes 08/31/2025 8:31 AM EST Meneses, C rystal * IBW/kg (Calculated) Answer Entry Date Author 59.3 08/31/2025 8:31 AM EST Meneses, C rystal * Restart Pain Assessment Timer Answer Entry Date Author Yes 08/31/2025 8:31 AM EST Meneses, C rystal * Weight in (lb) to have BMI = 25 Answer Entry Date Author 154.6 08/31/2025 8:31 AM EST Meneses, C rystal * BMI (Calculated) Answer Entry Date Author 34.3 08/31/2025 8:31 AM EST Meneses, C rystal * Percent Excess Weight Loss Answer Entry Date Author 0 08/31/2025 8:31 AM EST Meneses, C rystal * Weight Change Since Preop Answer Entry Date Author 96.2 08/31/2025 8:31 AM EST Meneses, C rystal * Initial Excess Weight Answer Entry Date Author -58.97 08/31/2025 8:31 AM EST Meneses, C rystal * IBW in kg (Bariatric) Answer Entry Date Author 58.97 08/31/2025 8:31 AM EST Meneses, C rystal * IBW in lb (Bariatric) Answer Entry Date Author 130 08/31/2025 8:31 AM EST Meneses, C rystal * Weight Change Since Last Visit Answer Entry Date Author -2.1 08/31/2025 8:31 AM EST Meneses, C rystal * Percent of IBW Answer Entry Date Author 163.14 08/31/2025 8:31 AM EST Meneses, C rystal * EBW (kg) Answer Entry Date Author 37.21 08/31/2025 8:31 AM EST Meneses, C rystal * EBW (lb) Answer Entry Date Author 82.08 08/31/2025 8:31 AM EST Meneses, C rystal * Difference in Weight Since Last Visit Answer Entry Date Author -2.1 08/31/2025 8:31 AM EST Meneses, C rystal * Temp (in Celsius) for [place] IV Answer Entry Date Author 36.3 08/31/2025 8:31 AM EST Meneses, C rystal * IBW/kg (Calculated) Answer Entry Date Author 59.3 08/31/2025 8:31 AM EST Meneses, C rystal * Adult Low Range Vt 6mL/kg Answer Entry Date Author 355.8 08/31/2025 8:31 AM EST Meneses, C rystal * Adult Moderate Range Vt 8mL/kg Answer Entry Date Author 474.4 08/31/2025 8:31 AM EST Meneses, C rystal * Adult High Range Vt 10mL/kg Answer Entry Date Author 593 08/31/2025 8:31 AM EST Meneses, C rystal * Pain Score Answer Entry Date Author 3 08/31/2025 8:31 AM EST Meneses, C rystal * BP Cuff Size Answer Entry Date Author Adult 08/31/2025 8:31 AM EST Meneses, C rystal * Vitals Timer Question Answer Entry Date Author Restart Vitals Timer Yes 08/31/2025 8:31 AM Bailey Liang * Patient Position Answer Entry Date Author Sitting 08/31/2025 8:31 AM EST Meneses, C rystal * Pain Screening Answer Entry Date Author 0-10 08/31/2025 8:31 AM EST Zaira C rystal documented in this encounter Miscellaneous Notes * Progress Notes - Gabe Cifuentes, DIRECTOR DIVERSITY - 08/31/2025 8:30 AM EST NEURO ONCOLOGY FOLLOW-UP NOTE Patient Information Patient Name: Herminia Murrell Date of : 1960 Encounter Date: 08/31/25 Verbal consent was obtained to use ambient listening technology to assist in the documentation of the encounter: yes Treatment Diagnosis: GBM, with EGFR amplification, TERT [...] 06/08-06/12/25 C2: 07/06-07/10/25 C3: 08/03-08/07/25 C4: 08/31-09/04/25 History of Present Illness The patient is a 65-year-old female who presents today for continuation of her clinical trial. She reports a significant improvement in her condition following a brief hospital stay, during which she underwent a body cleanse with IV hydration. She no longer experiences nausea or bowel issues and has not had a fever. Her bowel movements have returned to normal as of yesterday. She recalls an episode of waking up in the middle of the night with a sensation of impending vomiting, which prompted her to seek immediate medical attention at the hospital around 4:30 or 4:45 AM. She was discharged the following day at approximately 10:00 AM. It is believed that she may have contracted a virus. She has been able to resume her daily activities, including grocery shopping and running errands. She has made dietary modifications, eliminating coffee and dairy products, which she believes have contributed to her improved health. She has also identified certain foods that are palatable to her, such as bananas with a small amount of peanut butter on bread. She does not require any medication refills at this time. Hospitalized at local facility 2/ n/v. Received IVF and anti emetics. Past Medical, Surgical, Family and Social History Reviewed in this encounter by me personally Subjective Review of Systems: Rest of 14 point organ based review of system was conducted and pertinent negatives and positives are placed in the HPI. Objective Performance Status 80% Visit Vitals BP (!) 140/82 (BP Location: Left arm, Patient Position: Sitting, BP Cuff Size: Adult) Pulse 76 Temp 36.3 ??C (97.4 ??F) (Oral) Resp 16 EXAM Physical Exam Constitutional: Appearance: She is normal weight. Comments: Patient is ambulating independently HENT: Head: Comments: Right sided post-operative scar healing Cardiovascular: Rate and Rhythm: Normal rate. Pulmonary: Effort: Pulmonary effort is normal. Abdominal: General: Abdomen is flat. Skin: General: Skin is warm and dry. Ext: R lower ext with swelling Neurological: Mental Status: She is alert. Coordination: Coordination normal. Gait: Gait normal. Comments: Word difficulty is resolved; fluent speech Psychiatric: Mood and Affect: Mood normal. Behavior: Behavior normal. LABORATORIES AND STUDIES: reviewed by me personally Lab Results Component Value Date BUN 10 08/31/2025 CL 105 08/31/2025 NA 140 08/31/2025 K 3.3 (L) 08/31/2025 TP 6.5 08/31/2025 AST 14 08/31/2025 ALT 11 08/31/2025 @NEUTOPHILPCT@ Lab Results Component Value Date WBC 4.63 08/31/2025 HGB 11.6 08/31/2025 HCT 35.0 08/31/2025 MCV 85 08/31/2025 PLT 193 08/31/2025 Assessment/Plan Herminia Murrell is a 65 y.o. [...] 06/08-06/12/25 C2: 07/06-07/10/25 C3: 08/03-08/07/25 C4: 08/31-09/04/25 Plan: Enrolled: GBM 16 (EF-41): A Phase 3, Randomized, Double-Blind, Placebo- Controlled Study of Optune?? (TTFields, 200 kHz) Concomitant with Maintenance Temozolomide and Pembrolizumab Versus Optune?? Concomitant with Maintenance Temozolomide and Placebo for the Treatment of Newly Diagnosed Glioblastoma Clinically well and will con't with study therapy RTC 09/21/25 -replace K today #Right LE DVT -Positive US 07/01/25 -continue eliquis #Diarrhea- resolved -G1, not likely IO induced -instructed to call if frequency worsens Gabe Cifuentes DNP, [facility] [address] [facility] [phone] No referring provider defined for this encounter * Progress Notes - Rickie Wagner, Velma - 08/31/2025 8:30 AM EST Pharmacy Hematology/Oncology Treatment Note Herminia Murrell is a 65 y.o. female with GBM (MGMT+, IDH wt) Cancer Staging Glioblastoma multiforme (CMS/HCC) Staging form: High Grade Glioma - Clinical stage from 04/02/2025: Histology: Glioblastoma multiforme, Location: Temporal lobe - Signed by Miguel Perez MD on 04/02/2025 Study Patient: Yes [id number]: A Phase 3, Randomized, Double-Blind, Placebo-Controlled Study of Optune?? (TTFields, 200 kHz) Concomitant with Maintenance Temozolomide and Pembrolizumab Versus Optune?? Concomitant with Maintenance Temozolomide and Placebo for the Treatment of Newly Diagnosed Glioblastoma (EF-41/KEYNOTE D58) Treatment Plan reviewed for GBM-16 Pembrolizumab or Placebo Every 21 Days / Temozolomide maintenance Every 28 Days [x] Follow-Up Clinical Review for Cycle 5 Pembro or Placebo [x] Follow-Up Clinical Review [...] per GBM-16. TMZ maintenance supply received from [email or web address] for start of Cycle 1, scheduled for 06/08/25. Labs have been reviewed and are appropriate for treatment on 06/08. 07/01/25: Patient tolerated first adjuvant TMZ maintenance cycle. Labs have been reviewed and are appropriate for next cycle. Will increase TMZ to 200 mg/m2/dose with cycle 2 forward. Updated prescription sent to [facility] today. Labs appropriate for infusion today. 08/31/25: Patient had a recent brief acute care admission with nausea, for which she received IV hydration and anti-emetics. Consideration was given to decrease TMZ maintenance dose, but the nausea episode may have been d/t a viral illness and has now completely resolved. Plan to continue TMZ maintenance cycle 4 at current dose of 420 mg (200 mg/m2/dose), which is scheduled to start tonight. Willreassess prior to cycle 5. Today's labs have been reviewed and are appropriate to proceed with infusion. Today's Wt: Wt Readings from Last 1 Encounters: 08/31/25 96.5 kg (212 lb 11.9 oz) Dosing Wt: 103 kg Dosing Ht: 167.6 cm DosingBSA: 2.11 m2 Recent Labs: Lab Results Component Value Date WBC 4.63 08/31/2025 NEUTROABS 3.13 08/31/2025 LYMPHSABS 0.76 (L) 08/31/2025 HGB 11.6 08/31/2025 PLT 193 08/31/2025 Lab Results Component Value Date GLUCOSE 96 08/31/2025 CALCIUM 9.3 08/31/2025 NA 140 08/31/2025 K 3.3 (L) 08/31/2025 CO2 25 08/31/2025 CL 105 08/31/2025 BUN 10 08/31/2025 CREATININE 0.59 (L) 08/31/2025 Lab Results Component Value Date ALT 11 08/31/2025 AST 14 08/31/2025 ALKPHOS 59 08/31/2025 BILITOT 0.5 08/31/2025 Vitals: Visit Vitals BP (!) 140/82 (BP Location: Left arm, Patient Position: Sitting, BP Cuff Size: Adult) Pulse 76 Temp 36.3 ??C (97.4 ??F) (Oral) Resp 16 Other Relevant Monitoring: none Treatment/Therapy Plan: Pembrolizumab 200 mg [flat dose] or Placebo IV on day 1 Every 21 Days + TTFields/Optune Device + Temozolomide 420 mg (140 mg cap x 3; ~199 mg/m2/dose) orally once nightly on days 1-5 Every 28 Days [x] No dose adjustments made Rx sent to: [email or web address] Refills due: if continued beyond 12 maintenance cycles Current Treatment Plan History: Concurrent TMZ+XRT (03/30-05/08/25) GBM-16 Pembro or Placebo C1: 06/08/25 C2: 07/01/25 C3: 07/22/25 C4: 08/10/25 C5: 08/31/25 TMZ maintenance C1: 06/08-06/12/25 C2: 07/06-07/10/25 C3: 08/03-08/07/25 C4: 08/31-09/04/25 Prior Treatment History: none Plan: Patient will return to clinic in 3 weeks with next infusion. Will follow-up at that time. Pharmacist Attestation: Rickie Wagner PharmD Clinical Oncology Pharmacist documented in this encounter Plan of Treatment Upcoming Encounters Date Type Department Care Team ([facility] st Contact Info) Description 09/21/2025 9:15 AM EST Clinical Support [facility] [address] [facility] [place] [address] 09/21/2025 9:30 AM EST Office Visit [facility] [address] [facility] [place] [address] Gabe Cifuentes, DIRECTOR DIVERSITY [address] [facility] [address] [place] [address] 09/21/2025 11:00 AM EST Appointment [facility] [address] [place] [address] 10/05/2025 9:00 AM EST Office Visit [facility] [address] [place] [address] Sanchez Zaldivar MD [address] [place] [address] 10/05/2025 11:00 AM EST Consult [facility] [address] [place] [address] Shy Marquez, JEFFREY [address] [place] [address] 10/12/2025 8:30 AM EST Appointment [facility] [address] [place] [address] Scheduled Orders Name Type Priority Associated Diagnoses Orde r Schedule CBC and differential Lab Routine Glioblastoma multiforme (CMS/HCC) Expected: 09/21/2025, Expires: 09/21/2026 Comprehensive metabolic panel Lab Routine Glioblastoma multiforme (CMS/HCC) Expected: 09/21/2025, Expires: 09/21/2026 TSH Lab Routine Glioblastoma multiforme (CMS/HCC) Expected: 09/21/2025, Expires: 09/21/2026 T3, Serum Lab Routine Glioblastoma multiforme (CMS/HCC) Expected: 09/21/2025, Expires: 09/21/2026 T4, free Lab Routine Glioblastoma multiforme (CMS/HCC) Expected: 09/21/2025, Expires: 09/21/2026 documented as of this encounter Visit Diagnoses [...] documented as of this encounter Care Teams Lawn Care Technician Relationship Specialty Start Date End Date System, Provider Not In, [address] [place] [address] PCP - General Family Medicine 03/23/25 Miguel Perez MD [address] [facility] [address] [place] [address] Consulting Physician Radiation Oncology 04/09/25 Sherin Romero, RN None None Registered Nurse Medical Oncology 07/20/25 documented as of this encounter
--- OUTSIDE RECORDS SUMMARY | 2025-08-31 09:08 | XMS_ITS | Encounter Summary ---
Author Organization Healthcare Address [address] [place] [address] Care Team Providers Care Bill Recapitulation Clerk Name Role Phone System, Provider Not In MD Primary Care Provider Unavailable Miguel Perez MD Unavailable [phone] Sherin Romero RN Unavailable Unavailable Reason for Visit * Episode Based Medications (Routine) - Authorized Specialty Diagnoses / Procedures Referred By Génesis t Referred To Contact Diagnoses Glioblastoma multiforme (CMS/HCC) Procedures [id number]: Pembrolizumab or Placebo + Optune Every 21 Days / Temozolomide Every 28 Days Chente Sebastian MD [facility] [address] [address] Phone: tel: fax: Chente Sebastian MD [facility] [address] [address] Phone: tel: fax: Referral ID Status Reason Start Date Expiration Date V isits Requested Visits Authorized [id number] Authorized 05/29/2025 11/28/2026 1 1 Encounter Details Date Type Department Care Team (Latest Contact Info) Description 08/31/2025 9:08 AM EST - 08/31/2025 11:59 PM [facility] Hospital Encounter [facility] [address] [place] [phone] Glioblastoma multiforme (CMS/HCC) (Primary Dx) Discharge Disposition: [...] drink first t carroll in the morning (EYE-CLINIC OFFICE COORDINATOR) to steady your nerves or to get rid of a hangover? 0 03/20/2025 CAGE Questionnaire Score 0 025 Utilities Answer Date Recorded In the past 12 months has th e [employer], gas, oil, or water company threatened [...] Sign Reading Time Taken Comments Blood Pressure 139/85 08/31/2025 9:10 AM EST Pulse 74 08/31/2025 9:10 AM EST Temperature - - Respiratory Rate 18 08/31/2025 9:10 AM EST Oxygen Saturation 97% 08/31/2025 9:10 AM EST Inhaled Oxygen Concentration - - Weight 96.5 kg (212 lb 11.9 oz) 08/31/2025 9:10 AM EST Height 167.6 cm (5' 6 ) 08/31/2025 9:10 AM EST Body Mass Index 34.34 08/31/2025 9:10 AM EST documented in this encounter Functional Status * BP Answer Date of Assessment Author 139/85 08/31/2025 9:10 AM EST Yessenia Crum * Pulse Answer Date of Assessment Author 74 08/31/2025 9:10 AM EST Yessenia Crum * Resp Answer Date of Assessment Author 18 08/31/2025 9:10 AM EST Yessenia Crum * SpO2 Answer Date of Assessment Author 97 08/31/2025 9:10 AM Yessenia Ridley * Height Answer Date of Assessment Author 66 08/31/2025 9:10 AM EST Yessenia Crum * Weight Answer Date of Assessment Author 3403.9 08/31/2025 9:10 AM Yessenia Ridley * BMI (Calculated) Answer Date of Assessment Author 34.4 08/31/2025 9:10 AM Yessenia Ridley * Percent Excess Weight Loss Answer Date of Assessment Author 0 08/31/2025 9:10 AM Yessenia Ridley * Total Weight Change Percent Answer Date of Assessment Author 2222 08/31/2025 9:10 AM Yessenia Ridley * Weight Change Since Preop Answer Date of Assessment Author 96.48 08/31/2025 9:10 AM Yessenia Ridley * Initial Excess Weight Answer Date of Assessment Author -58.97 08/31/2025 9:10 AM Yessenia Ridley * IBW in lbs (Bariatric) Answer Date of Assessment Author 130 08/31/2025 9:10 AM Yessenia Ridley * Weight Change Since Last Visit Answer Date of Assessment Author 96.48 08/31/2025 9:10 AM Yessenia Ridley * IBW in kg (Bariatric) Answer Date of Assessment Author 58.97 08/31/2025 9:10 AM Yessenia Ridley * Percent of IBW Answer Date of Assessment Author 5,772.26 08/31/2025 9:10 AM Yessenia Ridley * EBW (kg) Answer Date of Assessment Author 3,402.23 08/31/2025 9:10 AM Yessenia Ridley * EBW (lbs) Answer Date of Assessment Author 3,395.78 08/31/2025 9:10 AM Yessenia Ridley * Weight Change 24 hrs Answer Date of Assessment Author -1.8 08/31/2025 9:10 AM Yessenia Ridley * BSA (Calculated - sq m) Answer Date of Assessment Author 2.12 08/31/2025 9:10 AM Yessenia Ridley * BMI (Calculated) Answer Date of Assessment Author 34.35 08/31/2025 9:10 AM Yessenia Ridley * IBW/kg (Calculated) Male Answer Date of Assessment Author 63.8 08/31/2025 9:10 AM Yessenia Ridley * IBW/kg (Calculated) Female Answer Date of Assessment Author 59.3 08/31/2025 9:10 AM Yessenia Ridley * Nutrition / Metabolic /Skin Question Answer Date of Assessment Author Fever None 08/31/2025 9:15 AM Tiara Choi RN Appetite 75% normal 08/31/2025 9:15 AM Tiara Choi RN Diet Solid 08/31/2025 9:15 AM Tiara Choi RN Nausea none 08/31/2025 9:15 AM Tiara Choi RN Vomiting none 08/31/2025 9:15 AM Tiara Choi RN Stomatitis none 08/31/2025 9:15 AM Tiara Choi RN Edema None 08/31/2025 9:15 AM Tiara Choi RN Skin (rash) None 08/31/2025 9:15 AM Tiara Choi RN Nutrition / Metabolic / Skin X 08/31/2025 9 :15 AM Tiara [place] RN * Activity / Exercise / Respiratory Question Answer Date of Assessment Author Activity Level Ambulatory able to d o sedentary work. Restricted in strenuous activity 08/31/2025 9:15 AM Tiara [place] RN Fatigue Moderate fatigue or difficulty performing some ADL's 08/31/2025 9:15 AM Tiara [place] RN Shortness of Breath None 08/31/2025 9:15 AM ES T Tiara Cid RN Activity / Exercise / Respiratory (WDL) X 08/31/2025 9:15 AM Tiara [place] R N * Sensory / Coping / Reproduction Question Answer Date of Assessment Author Sensory / Coping /Reproduction WDL 08/31/2025 9:15 AM Tiara [place] RN * Interventions Question Answer Date of Assessment Author Interventions Patient/Family educa ophelia on fall prevention, then documented their understanding;Confirm that Call Don't Fall signs are posted in patient areas;Encourage patients/families to call for assistance when needed;Check to confirm that the call light is working properly, is within reach of the patient;Answer call lights promptly;Secure locks on beds, stretchers, and chairs 08/31/2025 9:15 AM Tiara [place], SKY * Elimination Question Answer Date of Assessment Author Elimination WDL 08/31/2025 9:15 AM Tiara Choi RN * Chemotherapy Nursing Assessment Question Answer Date of Assessment Author Progress Note DC'd per ambulation w/Dtr- Status stable 08/31/2025 11:15 AM Tiara [place] RN * Restart Vitals Timer Answer Date of Assessment Author Yes 08/31/2025 9:10 AM EST Yessenia Crum * IBW/kg (Calculated) Answer Date of Assessment Author 59.3 08/31/2025 9:10 AM Yessenia Ridley * Weight in (lb) to have BMI = 25 Answer Date of Assessment Author 154.6 08/31/2025 9:10 AM Yessenia Ridley * BMI (Calculated) Answer Date of Assessment Author 34.4 08/31/2025 9:10 AM Yessenia Ridley * Percent Excess Weight Loss Answer Date of Assessment Author 0 08/31/2025 9:10 AM EST Yessenia Crum * Weight Change Since Preop Answer Date of Assessment Author 96.5 08/31/2025 9:10 AM Yessenia Ridley * Initial Excess Weight Answer Date of Assessment Author -58.97 08/31/2025 9:10 AM Yessenia Ridley * IBW in kg (Bariatric) Answer Date of Assessment Author 58.97 08/31/2025 9:10 AM EST Yessenia Crum * IBW in lb (Bariatric) Answer Date of Assessment Author 130 08/31/2025 9:10 AM EST Yessenia Crum * Weight Change Since Last Visit Answer Date of Assessment Author 0.3 08/31/2025 9:10 AM Yessenia Ridley * Percent of IBW Answer Date of Assessment Author 163.65 08/31/2025 9:10 AM Yessenia Ridley * EBW (kg) Answer Date of Assessment Author 37.51 08/31/2025 9:10 AM Yessenia Ridley * EBW (lb) Answer Date of Assessment Author 82.74 08/31/2025 9:10 AM Yessenia Ridley * Difference in Weight Since Last Visit Answer Date of Assessment Author 0.3 08/31/2025 9:10 AM Yessenia Ridley * Pain Assessment Question Answer Date of Assessment Author Pain Location Leg 08/31/2025 9:15 AM EST [place] etTiara salgado RN Pain Orientation Right 08/31/2025 9:15 AM EST P ucTiara montelongo RN Pain Descriptors Numbness;Tingling 08/31/2025 9:15 AM EST iTara Cid RN Pain Frequency Constant/continuous 08/31/2025 9:15 AM Tiara [place] RN Pain Type Acute pain 08/31/2025 9:15 AM EST Tiara Hein RN Pain Score 3 08/31/2025 9:15 AM Tiara Choi RN Pain Assessment 0-10 (Adult DVPRS/Pe ds 0-10) 08/31/2025 9:15 AM Tiara Vaelncia RN * IBW/kg (Calculated) Answer Date of Assessment Author 59.3 08/31/2025 9:10 AM Yessenia Ridley * Adult Low Range Vt 6mL/kg Answer Date of Assessment Author 355.8 08/31/2025 9:10 AM Yessenia Ridley * Adult Moderate Range Vt 8mL/kg Answer Date of Assessment Author 474.4 08/31/2025 9:10 AM Yessenia Ridley * Adult High Range Vt 10mL/kg Answer Date of Assessment Author 593 08/31/2025 9:10 AM Yessenia Ridley * Pain Screening/Additional Assessments Question Answer Date of Assessment Author Pain Screening/Assessments Pain Screening 08/31/2025 9 :10 AM Yessenia Ridley * Pain Screening Answer Date of Assessment Author 0-10 08/31/2025 9:10 AM Yessenia Ridley * BP Answer Date of Assessment Author 139/85 08/31/2025 9:10 AM Yessenia Ridley * Pulse Answer Date of Assessment Author 74 08/31/2025 9:10 AM Yessenia Ridley * Resp Answer Date of Assessment Author 18 08/31/2025 9:10 AM EST Yessenia Crum * SpO2 Answer Date of Assessment Author 97 08/31/2025 9:10 AM EST Yessenia Crum * Height Answer Date of Assessment Author 66 08/31/2025 9:10 AM EST Yessenia Crum * Weight Answer Date of Assessment Author 3403.9 08/31/2025 9:10 AM EST Yessenia Crum * BSA (Calculated - sq m) Answer Date of Assessment Author 2.12 08/31/2025 9:10 AM EST Yessenia Crum * BMI (Calculated) Answer Date of Assessment Author 34.35 08/31/2025 9:10 AM Yessenia Ridley * Restart Vitals Timer Answer Date of Assessment Author Yes 08/31/2025 9:10 AM Yessenia Ridley * Weight in (lb) to have BMI = 25 Answer Date of Assessment Author 154.6 08/31/2025 9:10 AM Yessenia Ridley * Pain Assessment Question Answer Date of Assessment Author Pain Location Leg 08/31/2025 9:15 AM EST Tiara Benavides RN Pain Orientation Right 08/31/2025 9:15 AM EST P ucTiara montelongo RN Pain Descriptors Numbness;Tingling 08/31/2025 9:15 AM Tiara [place] RN Pain Frequency Constant/continuous 08/31/2025 9:15 AM Tiara [place] RN Pain Type Acute pain 08/31/2025 9:15 AM Tiara Choi RN Pain Score 3 08/31/2025 9:15 AM Tiara Choi RN Pain Assessment 0-10 (Adult DVPRS/Pe ds 0-10) 08/31/2025 9:15 AM Tiara [place] RN documented as of this encounter Mental Status * BP Answer Entry Date Author 139/85 08/31/2025 9:10 AM Yessenia Ridley * Pulse Answer Entry Date Author 74 08/31/2025 9:10 AM EST Yessenia Crum * Resp Answer Entry Date Author 18 08/31/2025 9:10 AM EST Yessenia Crum * SpO2 Answer Entry Date Author 97 08/31/2025 9:10 AM EST Yessenia Crum * Height Answer Entry Date Author 66 08/31/2025 9:10 AM EST Yessenia Crum * Weight Answer Entry Date Author 3403.9 08/31/2025 9:10 AM EST Yessenia Crum * BMI (Calculated) Answer Entry Date Author 34.4 08/31/2025 9:10 AM Yessenia Ridley * Percent Excess Weight Loss Answer Entry Date Author 0 08/31/2025 9:10 AM Yessenia Ridley * Total Weight Change Percent Answer Entry Date Author 2222 08/31/2025 9:10 AM Yessenia Ridley * Weight Change Since Preop Answer Entry Date Author 96.48 08/31/2025 9:10 AM EST Yessenia Crum * Initial Excess Weight Answer Entry Date Author -58.97 08/31/2025 9:10 AM Yessenia Ridley * IBW in lbs (Bariatric) Answer Entry Date Author 130 08/31/2025 9:10 AM Yessenia Ridley * Weight Change Since Last Visit Answer Entry Date Author 96.48 08/31/2025 9:10 AM Yessenia Ridley * IBW in kg (Bariatric) Answer Entry Date Author 58.97 08/31/2025 9:10 AM Yessenia Ridley * Percent of IBW Answer Entry Date Author 5,772.26 08/31/2025 9:10 AM Yessenia Ridley * EBW (kg) Answer Entry Date Author 3,402.23 08/31/2025 9:10 AM Yessenia Ridley * EBW (lbs) Answer Entry Date Author 3,395.78 08/31/2025 9:10 AM Yessenia Ridley * Weight Change 24 hrs Answer Entry Date Author -1.8 08/31/2025 9:10 AM Yessenia Ridley * BSA (Calculated - sq m) Answer Entry Date Author 2.12 08/31/2025 9:10 AM Yessenia Ridley * BMI (Calculated) Answer Entry Date Author 34.35 08/31/2025 9:10 AM Yessenia Ridley * IBW/kg (Calculated) Male Answer Entry Date Author 63.8 08/31/2025 9:10 AM EST Yessenia Crum * IBW/kg (Calculated) Female Answer Entry Date Author 59.3 08/31/2025 9:10 AM EST Yessenia Crum * Restart Vitals Timer Answer Entry Date Author Yes 08/31/2025 9:10 AM EST Yessenia Crum * IBW/kg (Calculated) Answer Entry Date Author 59.3 08/31/2025 9:10 AM EST Yessenia Crum * Restart Pain Assessment Timer Answer Entry Date Author Yes 08/31/2025 9:15 AM EST Tiara Cid RN * Weight in (lb) to have BMI = 25 Answer Entry Date Author 154.6 08/31/2025 9:10 AM EST Yessenia Crum * BMI (Calculated) Answer Entry Date Author 34.4 08/31/2025 9:10 AM EST Yessenia Crum * Percent Excess Weight Loss Answer Entry Date Author 0 08/31/2025 9:10 AM Yessenia Ridley * Weight Change Since Preop Answer Entry Date Author 96.5 08/31/2025 9:10 AM Yessenia Ridley * Initial Excess Weight Answer Entry Date Author -58.97 08/31/2025 9:10 AM EST Yessenia Crum * IBW in kg (Bariatric) Answer Entry Date Author 58.97 08/31/2025 9:10 AM EST Yessenia Crum * IBW in lb (Bariatric) Answer Entry Date Author 130 08/31/2025 9:10 AM Yessenia Ridley * Weight Change Since Last Visit Answer Entry Date Author 0.3 08/31/2025 9:10 AM Yessenia Ridley * Percent of IBW Answer Entry Date Author 163.65 08/31/2025 9:10 AM EST Yessenia Crum * EBW (kg) Answer Entry Date Author 37.51 08/31/2025 9:10 AM EST Yessenia Crum * EBW (lb) Answer Entry Date Author 82.74 08/31/2025 9:10 AM EST Yessenia Crum * Difference in Weight Since Last Visit Answer Entry Date Author 0.3 08/31/2025 9:10 AM Yessenia Ridley * Pain Assessment Question Answer Entry Date Author Pain Location Leg 08/31/2025 9:15 AM EST Tiara Benavides RN Pain Orientation Right 08/31/2025 9:15 AM EST Tiara Malone RN Pain Descriptors Numbness;Tingling 08/31/2025 9:15 AM Tiara [place] RN Pain Frequency Constant/continuous 08/31/2025 9:15 AM Tiara [place] RN Pain Type Acute pain 08/31/2025 9:15 AM EST Tiara Hein RN Pain Score 3 08/31/2025 9:15 AM Tiara Choi RN Pain Assessment 0-10 (Adult DVPRS/Pe ds 0-10) 08/31/2025 9:15 AM EST Tiara Cid RN * IBW/kg (Calculated) Answer Entry Date Author 59.3 08/31/2025 9:10 AM Yessenia Ridley * Adult Low Range Vt 6mL/kg Answer Entry Date Author 355.8 08/31/2025 9:10 AM EST Yessenia Crum * Adult Moderate Range Vt 8mL/kg Answer Entry Date Author 474.4 08/31/2025 9:10 AM Yessenia Ridley * Adult High Range Vt 10mL/kg Answer Entry Date Author 593 08/31/2025 9:10 AM Yessenia Ridley * Pain Screening Answer Entry Date Author 0-10 08/31/2025 9:10 AM Yessenia Ridley documented in this encounter Medications at Time of Discharge Acetaminophen Extra Strength 500 MG tablet TAKE TWO TABLETS BY MOUTH EVERY 6 HOURS NEEDED FOR PAIN 100 tablet 1 06/15/2025 ascorbic acid (Vitamin C) 500 MG tablet Take 1 tablet by mouth daily. 06/01/2025 Ascorbic Acid 69216 MG/30ML solution Infuse 87.5 g into a [...] times a day. 180 tablet 11 02/27/2025 methylphenidate (Ritalin) 20 MG tablet Take 1 tablet by mouth 2 times a day. 60 tablet 08/13/2025 6 methylphenidate (Ritalin) 20 MG tablet Take 1 tablet by mouth 2 times a day. 60 tablet 08/14/2025 OLANZapine zydis (ZyPREXA) 5 MG disintegrating tablet DISSOLVE ONE TABLET BY MOUTH EVERY 8 HOURS NEEDED FOR NAUSEA AND VOMITING 08/24/2025 omeprazole (PriLOSEC) [address] capsule Take 1 capsule by mouth every morning. Do not crush or chew. ondansetron (Zofran) 8 MG tabletIndications:Gl ioblastoma multiforme (CMS/HCC) Take 1 tab (8mg) by mouth daily 30 minutes prior to temozolomide, then up to every 8 hours (max: 3/day) as needed for nausea/vomitin g 90 tablet 1 05/29/2025 polyethylene glycol (Miralax) 17 g packet Take 17 g by mouth daily. 30 packet 5 04/27/2025 prochlorperazine (Compazine) 10 MG tabletIndications:Gl ioblastoma multiforme (CMS/HCC) Take 1 tablet by mouth [...] (50 mg tablet + 25 mg tablet) documented as of this encounter Plan of Treatment Upcoming Encounters Date Type Department Care Team (Nora st Contact Info) Description 09/21/2025 9:15 AM EST Clinical Support [facility] [address] [facility] [place] [address] 09/21/2025 9:30 AM EST Office Visit [facility] [address] [facility], [address] [place] [phone] Gabe Cifuentes, LABEL TACKER [facility] [address] [place] [phone] 09/21/2025 11:00 AM EST Appointment [facility] [address] [place] [phone] 10/05/2025 9:00 AM EST Office Visit [facility] [address], [address] [place] [address] Sanchez Zaldivar MD [address] [place] [address] 10/05/2025 11:00 AM EST Consult [facility] [address], [address] [place] [address] Shy Marquez, LABEL TACKER [address] [place] [address] 10/12/2025 8:30 AM EST Appointment [facility] [address], [address] [place] [address] documented as of this encounter Visit Diagnoses Diagnosis Glioblastoma multiforme (CMS/HCC)- Primary Malignant neoplasm of brain, unspecified site documented in this encounter Administered Medications Inactive Administered Medications - up to 3 most recent administrations Medication Order MAR Action Action Date Dose Rate Site potassium chloride CR (Klor-Con) ER tablet 40 mEq 40 mEq, Oral, Once, 1 dose, On Sun08/31/25 at 1000, Routine Given 08/31/2025 9:43 AM EST 40 mEq RES - pembrolizumab or placebo (Keytruda) 200 mg in sodium chloride 0.9 % 100 mL IVPB 200 mg, Intravenous, at 276 mL/hr, Administer over 30 Minutes, Once, Administer over 25-40 minutes HAZARDOUS - Handle with care Attach a separate 0.2 micron, low protein binding filter. Infuse through dedicated line., On 08/31/25 at 1000, For 1 dose, NS 100mLIndications:Glioblastoma multiforme (CMS/HCC) New Bag 08/31/2025 10:34 AM EST 200 mg 276 mL/hr documented in this encounter Additional Health Concerns Assessment Noted Time PHQ-9 Depression Total Score: 6 10/08/19 2:13 PM EST A fall risk assessment has been complete d for the patient 08/31/2025 9:10 AM EST A Body Mass Index follow-up plan has been documented for the patient 07/06/2025 10:36 AM EDT documented as of this encounter Care Teams Bill Recapitulation Clerk Relationship Specialty Start Date End Date System, Provider Not In, [address] [place] [id number] PCP - General Family Medicine 03/23/25 Miguel Perez MD [address] [place] [address] [address] [place] [address] Consulting Physician Radiation Oncology 04/09/25 Sherin Romero, RN None None Registered Nurse Medical Oncology 07/20/25 documented as of this encounter
[2025-09-02] VITALS (13 sets, daily range): BP systolic 173–215; BP diastolic 78–97; PULSE 79–100; RESP 11–20; TEMP 36.7–37.1; O2SAT 91–98; BMI 32.3
--- OUTSIDE RECORDS SUMMARY | 2025-09-02 10:44 | XMS_ITS | Encounter Summary ---
Author Organization Healthcare Address [address] [place] [address] Care Team Providers Care Track Grinder Operator Name Role Phone System, Provider Not In MD Primary Care Provider Unavailable Miguel Perez MD Unavailable [phone] Sherin Romreo RN Unavailable Unavailable Encounter Details Date Type Department Care Team (Late st Contact Info) Description 08/05/2025 Orders Only [facility] [address] [facility], [address] [place] [phone] Chente Sebastian MD [address] [facility] [address] [place] [address] Glioblastoma multiforme (CMS/HCC) (Primary Dx); Exam for [...] any time in the past 12 m [facility], were you homeless or living in [...] drink first t carroll in the morning (EYE-INVENTORY SPECIALIST) to steady your nerves or to [...] [facility] [address] [facility] [place] [address] 09/21/2025 9:30 AM EST Office Visit [facility] [address] [facility], [address] [place] [address] Gabe Cifuentes, SLABBING MACHINE OPERATOR [address] [facility] [address] [place] [address] 09/21/2025 11:00 AM EST Appointment [facility] [address] [place] [address] 10/05/2025 9:00 AM EST [facility] Visit [facility] [address], [address] [place] [address] Sanchez Zaldivar MD [address] [facility] [address] [place] [address] 10/05/2025 11:00 AM EST Consult [facility] [address], [address] [place] [address] Shy Marquez, SLABBING MACHINE OPERATOR [address] [place] [address] 10/12/2025 8:30 AM EST Appointment [facility] [address], [address] [place] [address] documented as of this encounter Results * APTT (08/10/2025 2:20 PM EST) aPTT 27 25 - 35 sec LAB COAGULATION METHOD 08/10/2025 3:07 PM EST [facility] Blood Venous blood specimen / Unknown Venipuncture / Unknown 08/10/2025 2:20 PM EST 08/10/2025 2:35 PM EST Chente Sebastian MD LAB BLOOD ORDERABLES Final Res ult Performing Organization Address City/[facility]/ZIP Co de Phone Number [facility] [address] [phone] * (ABNORMAL) Prothrombin Time/INR (08/10/2025 2:20 PM EST) Prothrombin Time 15.6(H) 12.0 - 14.3 sec LAB COAGULATION METHOD 08/10/2025 3:07 PM EST [facility] INR 1.2(H) 0.9 - 1.1 LAB COAGULATION METHOD 08/10/2025 3:07 PM EST [facility] Blood Venous blood specimen / Unknown Venipuncture / Unknown 08/10/2025 2:20 PM EST 08/10/2025 2:35 PM EST Narrative [facility] - 08/10/2025 3:07 PM EST [...] MD LAB BLOOD ORDERABLES Final Res ult [facility][1] [address] [place] [address] documented in this encounter Visit Diagnoses Diagnosis [...] documented as of this encounter Care Teams Track Grinder Operator Relationship Specialty Start Date End Date System, Provider Not In, [address] [place] [address] PCP - General Family Medicine 03/23/25 Miguel Perez MD [address] [place] [address] [address] [place] [address] Consulting Physician Radiation Oncology 04/09/25 Sherin Romero RN None None Registered Nurse Medical Oncology 07/20/25 documented as of this encounter
--- OUTSIDE RECORDS SUMMARY | 2025-09-02 10:44 | XMS_ITS | Encounter Summary ---
Author Organization Healthcare Address [address] [place] [address] Care Team Providers Care Custom Clothier Name Role Phone System, Provider Not In [...] drink first t carroll in the morning (EYE-CINDER PITMAN) to steady your nerves or to get [...] as of this encounter Functional Status * Travel Screening Question Answer Date of Assessment Author Have you traveled internatio sandra or domestically in the last month? No 08/09/2025 10:32 PM EST Mych art, Generic documented as of this encounter Mental Status * Travel Screening Question Answer Entry Date Author Have you traveled internatio sandra or domestically in the last month? No 08/09/2025 10:32 PM EST Mych art, Generic documented in this encounter Plan of Treatment Upcoming Encounters Date Type Department Care Team (Late st Contact Info) Description 09/21/2025 9:15 AM EST Clinical Support Pav [facility] Res[facility] 800 [facility], [address]nd [place] [address] 09/21/2025 9:30 AM EST Office Visit Pav [facility] Respiratory 800 [facility], [address] [place] [address] Gabe Cifuentes, CONSTITUTIONAL LAW PROFESSOR 800 [facility] [address] [place] [address] 09/21/2025 11:00 AM EST Appointment [facility] 800 [place] [address] 10/05/2025 9:00 AM EST Office Visit [place] [facility] [address], 1st [place] [address] Sanchez Zaldivar MD [address] [place] [address] 10/05/2025 11:00 AM EST Consult [place] [facility] [address], 1st [place] [address] Shy Marquez, CONSTITUTIONAL LAW PROFESSOR [address] [place] [address] 10/12/2025 8:30 AM EST Appointment PAV S Radiology [address], [address]st [place] [address] documented as of this encounter Visit Diagnoses [...] documented as of this encounter Care Teams Custom Clothier Relationship Specialty Start Date End Date System, Provider Not In, [address] [place] [address] PCP - General Family Medicine 03/23/25 Miguel Perez MD [address] [place] [address] [address] [place] [address] Consulting Physician Radiation Oncology 04/09/25 Sherin Romero, RN None None Registered Nurse Medical Oncology 07/20/25 documented as of this encounter
--- OUTSIDE RECORDS SUMMARY | 2025-09-02 10:44 | XMS_ITS | Encounter Summary ---
Author Organization Healthcare Address [address] [place] [address] Care Team Providers Care Beef Cattle Farm Worker Name Role Phone System, Provider Not In MD Primary Care Provider Unavailable Miguel Perez MD Unavailable [phone] Sherin Romero RN Unavailable Unavailable Encounter Details Date Type Department Care Team (Late st Contact Info) Description 07/14/2025 Telephone Pav [facility] Head[facility] Neck & Respiratory 800 [facility], 2nd [place] [address] Gabe Cifuentes, BED SPRING MAKER 800 [facility] [address] [place] [address] Social History Tobacco Use Types Packs/Day Years [...] any time in the past 12 m [facility], were you homeless or living in [...] drink first t carroll in the morning (EYE-LICENSE ISSUER) to steady your nerves or to get rid of a hangover? 0 03/20/2025 CAGE Questionnaire Score 0 025 Utilities Answer Date Recorded In the past 12 months has th e [employer], oil, or water [employer] threatened to shut off services in your [...] 07/14/2025 4:28 PM EST Per call to [facility], infusion center needs an email address or photoresist contact printer regarding her infusions expected this week. Radha Del Rosario [phone] [email or web address] documented in this encounter Plan of Treatment Upcoming Encounters Date Type Department Care Team (Late st Contact Info) Description 09/21/2025 9:15 AM EST Clinical Support Pav [facility] Head[facility] Neck & Respiratory 800 [facility], 2nd [place] [address] 09/21/2025 9:30 AM EST Office Visit Pav [facility] Head[facility] Neck & Respiratory [address] , 2nd [place] [address] Gabe Cifuentes, JEFFREY 800 [facility] Liyah Amaya [facility] [address] [place] [address] 09/21/2025 11:00 AM EST Appointment [facility] 800 [place] [address] 10/05/2025 9:00 AM EST Office Visit [facility] [address], 1st [place] [address] Sanchez Zaldivar MD [address] [facility] [address] [place] [address] 10/05/2025 11:00 AM EST Consult [facility] [address], 1st [place] [address] Shy Marquez APRN [address] [facility] [address] [place] [address] 10/12/2025 8:30 AM EST Appointment PAV S Radiology [address], 1st [place] [address] documented as of this encounter Visit Diagnoses [...] documented as of this encounter Care Teams Beef Cattle Farm Worker Relationship Specialty Start Date End Date System, Provider Not In, 800 [place] [address] PCP - General Family Medicine 03/23/25 Miguel Perez MD 800 [facility] [address] [place] [address] Consulting Physician Radiation Oncology 04/09/25 Sherin Romero, RN None None Registered Nurse Medical Oncology 07/20/25 documented as of this encounter
--- OUTSIDE RECORDS SUMMARY | 2025-09-02 10:44 | XMS_ITS | Encounter Summary ---
Author Organization Healthcare Address [address] [place] [address] Care Team Providers Care Pharmacy Operations Manager Name Role Phone System, Provider Not In MD Primary Care Provider Unavailable Miguel Perez MD Unavailable [phone] Encounter Details Date Type Department Care Team [...] drink first t carroll in the morning (EYE-INFORMATION TECHNOLOGY SECURITY ANALYST) to steady your nerves or to [...] as of this encounter Functional Status * Communicable Disease Screening Question Answer Date of Assessment Author Have you been in contact wit h someone who was sick? No / Unsure 07/06/2025 9:18 AM EDT Vivien Christian Do you have any of the following new or worsening symptoms? None of these 07/06/2025 9:18 AM EDT Vivien Christian * Travel Screening Question Answer Date of Assessment Author Have you traveled internatio sandra or domestically in the last month? No 07/06/2025 9:18 AM Vivien Burroughs documented as of this encounter Mental Status * Communicable Disease Screening Question Answer Entry Date Author Have you been in contact wit h someone who was sick? No / Unsure 07/06/2025 9:18 AM VISHALT Vivien Christian Do you have any of the following new or worsening symptoms? None of these 07/06/2025 9:18 AM EDT Vivien Christian * Travel Screening Question Answer Entry Date Author Have you traveled internatio sandra or domestically in the last month? No 07/06/2025 9:18 AM Vivien Burroughs documented in this encounter Plan of Treatment Upcoming Encounters Date Type Department Care Team (Late st Contact Info) Description 09/21/2025 9:15 AM EST Clinical Support Pav [facility] Head[facility] Neck & Respiratory 800 [facility] 2nd [place] [address] 09/21/2025 9:30 AM EST Office Visit Pav CC Head, Neck & Respiratory 800 [facility], 2nd [place] [address] Gabe Cifuentes, SECURE SOFTWARE ASSESSOR 800 [facility] Liyah Amaya [facility] [address] [place] [address] 09/21/2025 11:00 AM EST Appointment [facility] 800 [place] [address] 10/05/2025 9:00 AM EST Office Visit [place] [facility] [address], 1st [place] [address] Sanchez Zaldivar MD [address] [facility] [address] [place] [address] 10/05/2025 11:00 AM EST Consult [place] [facility] [address], 1st [place] [address] Shy Marquez, SECURE SOFTWARE ASSESSOR [address] [place] [address] 10/12/2025 8:30 AM EST Appointment PAV S Radiology [address], 1st [place] [address] documented as of this encounter [...] documented as of this encounter Care Teams Pharmacy Operations Manager Relationship Specialty Start Date End Date System, Provider Not In, [place] [address] PCP - General Family Medicine 03/23/25 Miguel Perez MD [address] [place] [address] [address] [place] [address] Consulting Physician Radiation Oncology 04/09/25 documented as of this encounter
--- OUTSIDE RECORDS SUMMARY | 2025-09-02 10:44 | XMS_ITS | Encounter Summary ---
Author Organization Healthcare Address [address] [place] [address] Care Team Providers Care Steel Erector Name Role Phone System, Provider Not In MD Primary Care Provider Unavailable Miguel Perez MD Unavailable [phone] Encounter Details Date Type Department Care Team (Late st Contact Info) Description 07/02/2025 Orders Only Pav CC Head, Neck & Respiratory 800 [facility], 2nd [place] [address] Chente Sebastian MD 800 [facility] [address] [place] [address] Social History Tobacco Use Types Packs/Day Years [...] time in the past 12 m [facility], were you homeless or living [...] drink first t carroll in the morning (EYE-SCALE AGENT) to steady your nerves or to get rid of a hangover? 0 03/20/2025 CAGE Questionnaire Score 0 025 Utilities Answer Date Recorded In the past 12 months has th e [employer], gas, oil, or water company threatened to [...] ([facility] st Contact Info) Description 09/21/2025 9:15 AM EST Clinical Support Pav CC Head[facility] Neck & Respiratory 800 [facility], 2nd [place] [address] 09/21/2025 9:30 AM EST Office Visit Pav CC Head[facility] Neck & Respiratory 800 [facility], 2nd [place] [address] Gabe Cifuentes, SEED ANALYST 800 [facility] [address] [place] [address] 09/21/2025 11:00 AM EST Appointment [facility] 800 [place] [address] 10/05/2025 9:00 AM EST Office Visit [place] [facility] Clinic [address], 1st [place] [address] Sanchez Zaldivar MD [address] [place] [address] 10/05/2025 11:00 AM EST Consult [place] [facility] Clinic [address], [address]st [place] [address] Shy Marquez, SEED ANALYST [address] [place] [address] 10/12/2025 8:30 AM EST Appointment PAV S Radiology [address], [address]st [place] [address] documented as of this encounter Visit Diagnoses [...] documented as of this encounter Care Teams Steel Erector Relationship Specialty Start Date End Date System, Provider Not In, [place] [address] PCP - General Family Medicine 03/23/25 Miguel Perez MD [address] [place] [address] [address] [place] [address] Consulting Physician Radiation Oncology 04/09/25 documented as of this encounter
--- OUTSIDE RECORDS SUMMARY | 2025-09-02 10:44 | XMS_ITS | Encounter Summary ---
Author Organization Healthcare Address [address] [place] [address] Care Team Providers Care Plumber'S Helper Name Role Phone System, Provider Not In MD Primary Care Provider Unavailable Miguel Perez MD Unavailable Encounter Details Date Type Department Care [...] drink first t carroll in the morning (EYE-CREDIT CARD CLERK) to steady your nerves or to get [...] or domestically in the last month? No 07/15/2025 10:00 AM EST Mych art, Generic documented as of this encounter Mental Status * Travel Screening Question Answer Entry Date Author Have you traveled internatio sandra or domestically in the last month? No 07/15/2025 10:00 AM EST Mych art, Generic documented in this encounter Plan of Treatment Upcoming Encounters Date Type Department Care Team ([facility] st Contact Info) Description 09/21/2025 9:15 AM EST Clinical Support Pav CC Head, Neck & Respiratory 800 [facility], [address]nd [place] [address] 09/21/2025 9:30 AM EST Office Visit Pav CC Head, Neck & Respiratory 800 [facility], [address]nd [place] [address] Gabe Cifuentes, MACHINE SIGN WRITER 800 [facility] [address] [place] [address] 09/21/2025 11:00 AM EST Appointment [facility] 800 [place] [address] 10/05/2025 9:00 AM EST Office Visit [place] [facility] [address], 1st [place] [address] Sanchez Zaldivar MD [address] [place] [address] 10/05/2025 11:00 AM EST Consult [place] [facility] [address], 1st [place] [address] Shy Marquez, MACHINE SIGN WRITER [address] [place] [address] 10/12/2025 8:30 AM EST Appointment PAV S Radiology [address], [address] [place] [address] documented as of this encounter Visit Diagnoses [...] documented as of this encounter Care Teams Plumber'S Helper Relationship Specialty Start Date End Date System, Provider Not In, [address] [place] [address] PCP - General Family Medicine 03/23/25 Miguel Perez MD [address] [place] [address] [address] [place] [address] Consulting Physician Radiation Oncology 04/09/25 documented as of this encounter
--- OUTSIDE RECORDS SUMMARY | 2025-09-02 10:44 | XMS_ITS | Encounter Summary ---
Author Organization Healthcare Address [address] [place] [address] Care Team Providers Care Securities Adviser Name Role Phone System, Provider Not In MD Primary Care Provider Unavailable Miguel Perez MD Unavailable [phone] Sherin Romero RN Unavailable Unavailable Encounter Details Date Type Department Care Team (Late st Contact Info) Description 07/17/2025 Orders Only Pav CC Head, Neck & Respiratory 800 [facility], 2nd [place] [address] Chente Sebastian MD 800 [facility] [address] [place] [address] Social History Tobacco Use Types Packs/Day Years [...] drink first t carroll in the morning (EYE-STAFF MIDWIFE/APPRENTICESHIP DIRECTOR) to steady your nerves or to get rid of a hangover? 0 03/20/2025 CAGE Questionnaire Score 0 025 Utilities Answer Date Recorded In the past 12 months has th e [employer], [employer], oil, or water [employer] threatened to shut off services in your [...] CC Head, Neck & Respiratory 800 [facility], [address]nd [place] [address] 09/21/2025 9:30 AM EST Office Visit Pav CC Head, Neck & Respiratory 800 [facility], [address]nd [place] [address] Gabe Cifuentes, STOREROOM KEEPER 800 [facility] [address] [place] [address] 09/21/2025 11:00 AM EST Appointment [facility] 800 [place] [address] 10/05/2025 9:00 AM EST Office Visit [place] [facility] [address], 1st [place] [address] Sanchez Zaldivar MD [address] [facility] [address] [place] [address] 10/05/2025 11:00 AM EST Consult [place] [facility] [address], 1st [place] [address] Shy Marquez, STOREROOM KEEPER [address] [place] [address] 10/12/2025 8:30 AM EST Appointment PAV S Radiology [address], [address] [place] [phone] documented as of this encounter Visit Diagnoses [...] documented as of this encounter Care Teams Securities Adviser Relationship Specialty Start Date End Date System, Provider Not In, 800 [place] [address] PCP - General Family Medicine 03/23/25 Miguel Perez MD [address] [place] [address] [address] [place] [address] Consulting Physician Radiation Oncology 04/09/25 Sherin Romero, RN None None Registered Nurse Medical Oncology 07/20/25 documented as of this encounter
--- OUTSIDE RECORDS SUMMARY | 2025-09-02 10:44 | XMS_ITS | Encounter Summary ---
Author Organization Healthcare Address [address] [place] [address] Care Team Providers Care Engineering Specialist Name Role Phone System, Provider Not In MD Primary Care Provider Unavailable Miguel Perez MD Unavailable [phone] Sherin Romero RN Unavailable Unavailable Encounter Details [...] were you homeless or living in a long-term (including now)? No 03/23/2025 CAGE ASSESSMENT Answer [...] drink first t carroll in the morning (EYE-TRAINING AND DEVELOPMENT DIRECTOR) to steady your nerves or to [...] Assessment Author Have you been in contact with someone who was sick? No / Unsure 07/22/2025 1:17 PM Brooke Jonesie Lucero Do you have any of the following new or worsening symptoms? None of these 07/22/2025 1:17 PM Brooke Jones * Travel Screening Question Answer Date of Assessment Author Have you traveled internatio sandra or domestically in the last month? No 07/22/2025 1:17 PM Brooke Jones documented as of this encounter Mental Status * Communicable Disease Screening Question Answer Entry Date Author Have you been in contact with someone who was sick? No / Unsure 07/22/2025 1:17 PM Deysi Jones Do you have any of the following new or worsening symptoms? None of these 07/22/2025 1:17 PM Brooke Jones * Travel Screening Question Answer Entry Date Author Have you traveled internatio sandra or domestically in the last month? No 07/22/2025 1:17 PM Brooke Jones documented in this encounter Plan of Treatment Upcoming Encounters Date Type Department Care Team (Late st Contact Info) Description 09/21/2025 9:15 AM EST Clinical Support Pav CC Head, Neck & Respiratory 800 [facility] 2nd [place] [address] 09/21/2025 9:30 AM EST Office Visit Pav CC Head, Neck & Respiratory 800 [facility], 2nd [place] [address] Gabe Cifuentes, HOME COMPANION 800 [facility] [address] [place] [address] 09/21/2025 11:00 AM EST Appointment [facility] 800 [place] [address] 10/05/2025 9:00 AM EST Office Visit [place] [facility] [address], [address]st [place] [address] Sanchez Zaldivar MD [address] [facility] [address] [place] [address] 10/05/2025 11:00 AM EST Consult [place] [facility] [address], 1st [place] [address] Shy Marquez, HOME COMPANION [address] [place] [address] 10/12/2025 8:30 AM EST Appointment PAV S Radiology [address], 1st [place] [address] documented as of this encounter [...] documented as of this encounter Care Teams Engineering Specialist Relationship Specialty Start Date End Date System, Provider Not In, 800 [place] [address] PCP - General Family Medicine 03/23/25 Miguel Perez MD [address] [place] [address] [address] [place] [address] Consulting Physician Radiation Oncology 04/09/25 Sherin Romero, RN None None Registered Nurse Medical Oncology 07/20/25 documented as of this encounter
--- OUTSIDE RECORDS SUMMARY | 2025-09-02 10:44 | XMS_ITS | Encounter Summary ---
Author Organization Healthcare Address [address] [place] [address] Care Team Providers Care Fire Fighter Airport Name Role Phone System, Provider Not In MD Primary Care Provider Unavailable Miguel Perez MD Unavailable Encounter Details Date Type Department Care Team (Late st Contact Info) Description 07/15/2025 Orders Only Pav CC Head, Neck & Respiratory 800 [facility], 2nd [place] [address] Rickie Wagner, PharmD 800 [facility] [address] [place] [address] Social History Tobacco Use Types Packs/Day Years [...] any time in the past 12 m [facility], were you homeless or living in a [...] drink first t carroll in the morning (EYE-FINANCIAL SALES ASSOCIATE) to steady your nerves or to get rid of a hangover? 0 03/20/2025 CAGE Questionnaire Score 0 025 Utilities Answer Date Recorded In the past 12 months has th e [employer], gas, oil, or water [employer] threatened to shut off services in your home? No 03/23/2025 Comments No Sex and Gender Information Value Date Recorded Sex Assigned at Female 09/22/2024 11:47 AM EST Legal Sex Female 8:04 PM EDT Gender Identity Not on file Sexual Orientation Not on file documented as of this encounter Plan of Treatment Upcoming Encounters Date Type Department Care Team ([facility] st Contact Info) Description 09/21/2025 9:15 AM EST Clinical Support Pav CC Head, Neck & Respiratory 800 [facility], 2nd [place] [address] 09/21/2025 9:30 AM EST Office Visit Pav CC Head, Neck & Respiratory 800 [facility], 2nd [place] [address] Gabe Cifuentes, PREFORMER IMPREGNATED FABRICS 800 [facility] [address] [place] [address] 09/21/2025 11:00 AM EST Appointment [facility] 800 [place] [address] 10/05/2025 9:00 AM EST Office Visit [place] [facility] Clinic [address], [address]st [place] [address] Sanchez Zaldivar MD [address] [facility] [address] [place] [address] 10/05/2025 11:00 AM EST Consult [place] [facility] [address], [address] [place] [address] Shy Marquez, PREFORMER IMPREGNATED FABRICS [address] [place] [address] 10/12/2025 8:30 AM EST Appointment PAV S Radiology [address], [address]st [place] [address] documented as of this encounter Visit Diagnoses [...] as of this encounter Care Teams Fire Fighter Airport Relationship Specialty Start Date End Date System, Provider Not In, [place] [address] PCP - General Family Medicine 03/23/25 Miguel Perez MD [address] [place] [address] [address] [place] [address] Consulting Physician Radiation Oncology 04/09/25 documented as of this encounter
--- OUTSIDE RECORDS SUMMARY | 2025-09-02 10:44 | XMS_ITS | Encounter Summary ---
Author Organization Healthcare Address [address] [place] [address] Care Team Providers Care Buyers' Agent Name Role Phone System, Provider Not In Primary Care Provider Unavailable Miguel Perez MD Unavailable [phone] Sherin Romero RN Unavailable Unavailable Encounter Details Date Type Department Care Team (Late st Contact Info) Description 07/21/2025 Telephone [place] [facility] [address], 1st [place] [address] System, Provider Not In, [address] [place] [address] Social History Tobacco Use Types Packs/Day Years [...] drink first t carroll in the morning (EYE-CUPOLA MELTING SUPERVISOR) to steady your nerves or to get [...] Upcoming Encounters Date Type Department Care Team ([facility] st Contact Info) Description 09/21/2025 9:15 AM EST Clinical Support Pav [facility] Respiratory 800 [facility], 2nd [place] [address] 09/21/2025 9:30 AM EST Office Visit Pav [facility] Head[facility] Neck & Respiratory [address] [facility], [address]nd [place] [address] Gabe Cifuentes, SALES RESEARCH ANALYST 800 [facility] Liyah Conde [facility] [address] [place] [address] 09/21/2025 11:00 AM EST Appointment [facility] [address] [place] [address] 10/05/2025 9:00 AM EST Office Visit [place] [facility] [address], 1st [place] [address] Sanchez Zaldivar MD [address] [place] [address] 10/05/2025 11:00 AM EST Consult [facility] [address], 1st [place] [address] Shy Marquez, SALES RESEARCH ANALYST [address] [place] [address] 10/12/2025 8:30 AM EST Appointment PAV S Radiology [address], [address] [place] [address] documented as of this encounter Visit Diagnoses [...] documented as of this encounter Care Teams Buyers' Agent Relationship Specialty Start Date End Date System, Provider Not In, [place] [address] PCP - General Family Medicine 03/23/25 Miguel Perez MD [address] [place] [address] [address] [place] [address] Consulting Physician Radiation Oncology 04/09/25 Sherin Romero, RN None None Registered Nurse Medical Oncology 07/20/25 documented as of this encounter
--- OUTSIDE RECORDS SUMMARY | 2025-09-02 10:44 | XMS_ITS | Encounter Summary ---
Author Organization Healthcare Address [address] [place] [address] Care Team Providers Care Skid Machine Operator Name Role Phone System, Provider Not In MD Primary Care Provider Unavailable Miguel Perez MD Unavailable [phone] Encounter Details Date Type Department Care Team (Late st Contact Info) Description 06/30/2025 Orders Only Pav CC Head, Neck & Respiratory [address] , [address]nd [place] [address] Ashlyn Irvin RN ```````````````````````` ```HOSP. OBSTETRICS, POST [...] living in a mcc (including now)? No 03/23/2025 CAGE ASSESSMENT Answer [...] drink first t carroll in the morning (EYE-FIELD SALES AGENT) to steady your nerves or [...] Upcoming Encounters Date Type Department Care Team ([facility] st Contact Info) Description 09/21/2025 9:15 AM EST Clinical Support Pav CC Head, Neck & Respiratory 800 [facility], 2nd [place] [address] 09/21/2025 9:30 AM EST Office Visit Pav CC Head, Neck & Respiratory 800 [facility], 2nd [place] [address] Gabe Cifuentes, WELL HEAD PUMPER 800 [facility] Liyah Conde [facility] [address] [place] [address] 09/21/2025 11:00 AM EST Appointment [facility] [address] [place] [address] 10/05/2025 9:00 AM EST Office Visit [place] [facility] [address], 1st [place] [address] Sanchez Zaldivar MD [address] [facility] [address] [place] [address] 10/05/2025 11:00 AM EST Consult [place] [facility] [address], [address]st [facility] [place] [address] Shy Marquez, WELL HEAD PUMPER [address] [place] [address] 10/12/2025 8:30 AM EST Appointment PAV S Radiology [address], [address]st [place] [address] documented as of this encounter Visit Diagnoses [...] documented as of this encounter Care Teams Skid Machine Operator Relationship Specialty Start Date End Date System, Provider Not In, [facility] [place] [address] PCP - General Family Medicine 03/23/25 Miguel Perez MD [address] [place] [address] [address] [place] [address] Consulting Physician Radiation Oncology 04/09/25 documented as of this encounter
--- OUTSIDE RECORDS SUMMARY | 2025-09-02 10:44 | XMS_ITS | Encounter Summary ---
Author Organization Healthcare Address [address] [place] [address] Care Team Providers Care Paper Feeder Name Role Phone System, Provider Not In Primary Care Provider Unavailable Miguel Perez MD Unavailable [phone] Sherin Romero RN Unavailable Unavailable Encounter Details Date Type Department Care Team (Late st Contact Info) Description 07/22/2025 Telephone [place] [facility] [address], 1st [place] [address] System, Provider Not In, [address] [place] [address] Social History Tobacco Use Types Packs/Day Years [...] any time in the past 12 m [facility], were you homeless or living [...] drink first t carroll in the morning (EYE-RADIO ENGINEERING TEACHER) to steady your nerves or to get [...] Upcoming Encounters Date Type Department Care Team ([facility] st Contact Info) Description 09/21/2025 9:15 AM EST Clinical Support Pav CC Head, Neck & Respiratory 800 [facility], 2nd [place] [address] 09/21/2025 9:30 AM EST Office Visit Pav CC Head, Neck & Respiratory 800 [facility], 2nd [place] [address] Gabe Cifuentes, OLIVER FILTER OPERATOR 800 [facility] Liyah Conde [address] [place] [address] 09/21/2025 11:00 AM EST Appointment [facility] [address] [place] [address] 10/05/2025 9:00 AM EST Office Visit [place] [facility] [address], 1st [place] [address] Sanchez Zaldivar MD [address] [place] [address] 10/05/2025 11:00 AM EST Consult [facility] [address], 1st [place] [address] Shy Marquez, OLIVER FILTER OPERATOR [address] [place] [address] 10/12/2025 8:30 AM EST Appointment P[facility] S Radiology [address], [address]st [place] [address] documented as of this encounter Visit Diagnoses [...] documented as of this encounter Care Teams Paper Feeder Relationship Specialty Start Date End Date System, Provider Not In, [place] [address] PCP - General Family Medicine 03/23/25 Miguel Perez MD [address] [place] [address] [address] [place] [address] Consulting Physician Radiation Oncology 04/09/25 Sherin Romero, RN None None Registered Nurse Medical Oncology 07/20/25 documented as of this encounter
--- OUTSIDE RECORDS SUMMARY | 2025-09-02 10:44 | XMS_ITS | Encounter Summary ---
Author Organization Healthcare Address [address] [place] [address] Care Team Providers Care Paper Products Printer Name Role Phone System, Provider Not In MD Primary Care Provider Unavailable Miguel Perez MD Unavailable [phone] Sherin Romero RN Unavailable Unavailable Encounter Details Date Type Department Care Team (Late st Contact Info) Description 07/21/2025 Orders Only Pav CC Head, Neck & Respiratory 800 [facility], 2nd [place] [address] Chente Sebastian MD 800 [facility] [address] [place] [address] Glioblastoma multiforme (CMS/HCC) (Primary Dx); Exam for [...] any time in the past 12 m [facility], were you homeless or living [...] drink first t carroll in the morning (EYE-LABORER YARD) to steady your nerves or to get [...] Respiratory 800 [facility], 2nd [place] [address] 09/21/2025 9:30 AM EST Office Visit Pav CC Head, Neck & Respiratory 800 [facility], [address]nd [place] [address] Gabe Cifuentes, SECURITY PROFESSIONAL 800 [facility] Liyah Conde d[address] [place] [address] 09/21/2025 11:00 AM EST Appointment [facility] [address] [place] [address] 10/05/2025 9:00 AM EST Office Visit [place] [facility] Clinic [address], 1st [place] [address] Sanchez Zaldivar MD [address] [facility] [address] [place] [address] 10/05/2025 11:00 AM EST Consult [place] [facility] Clinic [address], 1st [place] [address] Shy Marquez, SECURITY PROFESSIONAL [address] [place] [address] 10/12/2025 8:30 AM EST Appointment P[facility] S Radiology [address], [address]st [place] [address] documented as of this encounter Results * APTT (07/22/2025 1:31 PM EST) aPTT 29 25 - 35 sec LAB COAGULATION METHOD 07/22/2025 2:15 PM EST [facility] Blood Venous blood specimen / Unknown Venipuncture / Unknown 07/22/2025 1:31 PM EST 07/22/2025 1:56 PM EST Chente Sebastian MD LAB BLOOD ORDERABLES Final Res ult Performing Organization Address City/[facility]/ZIP Co de Phone Number [facility] [address] [place] [address] * (ABNORMAL) Prothrombin Time/INR (07/22/2025 1:31 PM EST) Prothrombin Time 15.2(H) 12.0 - 14.3 sec LAB COAGULATION METHOD 07/22/2025 2:15 PM EST [facility] INR 1.2(H) 0.9 - 1.1 LAB COAGULATION METHOD 07/22/2025 2:15 PM EST [facility] Blood Venous blood specimen / Unknown Venipuncture / Unknown 07/22/2025 1:31 PM EST 07/22/2025 1:56 PM EST Narrative [facility] - 07/22/2025 2:15 PM EST [...] of recurrent DE INR 2.5 to 3.5 Chente Sebastian MD LAB BLOOD ORDERABLES Final Res ult [facility] [address] [place] [address] documented in this encounter Visit Diagnoses Diagnosis [...] as of this encounter Care Teams Paper Products Printer Relationship Specialty Start Date End Date System, Provider Not In, [address] [place] [address] PCP - General Family Medicine 03/23/25 Miguel Perez MD [address] [place] [address] [address] [place] [address] Consulting Physician Radiation Oncology 04/09/25 Sherin Romero RN None None Registered Nurse Medical Oncology 07/20/25 documented as of this encounter
--- OUTSIDE RECORDS SUMMARY | 2025-09-02 10:44 | XMS_ITS | Encounter Summary ---
Author Organization Healthcare Address [address] [place] [address] Care Team Providers Care Treasury Accountant Name Role Phone System, Provider Not In MD Primary Care Provider Unavailable Miguel Perez MD Unavailable [phone] Sherin Romero RN Unavailable Unavailable Encounter Details Date Type Department Care Team (Late st Contact Info) Description 06/29/2025 Telephone [facility] [address] [place] [address] Pedro Jefferson, PharmD None None [...] drink first t carroll in the morning (EYE-UNMANNED AIRCRAFT SYSTEMS ROBOTICIST) to steady your nerves or to get [...] CC Head, Neck & Respiratory 800 [facility], 2nd [place] [address] 09/21/2025 9:30 AM EST Office Visit Pav CC Head, Neck & Respiratory 800 [facility], 2nd [place] [address] Gabe Cifuentes, FARMWORKER LIVESTOCK 800 [facility] Liyah Conde [facility] [address] [place] [address] 09/21/2025 11:00 AM EST Appointment [facility] [address] [place] [address] 10/05/2025 9:00 AM EST Office Visit [facility] [address], 1st [place] [address] Sanchez Zaldivar MD [address] [facility] [address] [place] [address] 10/05/2025 11:00 AM EST Consult [facility] [address], 1st [place] [address] Shy Marquez, JEFFREY [address] [place] [address] 10/12/2025 8:30 AM EST Appointment P[facility] S Radiology [address], 1st [place] [address] documented as of this encounter Visit Diagnoses [...] as of this encounter Care Teams Treasury Accountant Relationship Specialty Start Date End Date System, Provider [place] In, [place] [address] PCP - General Family Medicine 03/23/25 Miguel Perez MD [address] [place] [address] [address] [place] [address] Consulting Physician Radiation Oncology 04/09/25 Sherin Romero RN None None Registered Nurse Medical Oncology 07/20/25 documented as of this encounter
--- OUTSIDE RECORDS SUMMARY | 2025-09-02 10:45 | XMS_ITS | Encounter Summary ---
Author Organization Healthcare Address [address] [place] [address] Care Team Providers Care Instrumentation Designer Name Role Phone System, Provider Not In [...] drink first t carroll in the morning (EYE-PAWN BROKER) to steady your nerves or to get [...] someone who was sick? No / Unsure 08/10/2025 7:55 AM Cuca Hernadez Do you have any of the follo wing new or worsening symptoms? None of these 08/10/2025 7:55 AM Gissell Hernadez * Travel Screening Question Answer Date of Assessment Author Have you traveled intern[place] sand[place] or domestically in the last month? No 08/10/2025 7:55 AM Cuca Hernadez documented as of this encounter Mental Status * Communicable Disease Screening Question Answer Entry Date Author Have you been in contact wit h someone who was sick? No / Unsure 08/10/2025 7:55 AM Cuca Hernadez Do you have any of the follo wing new or worsening symptoms? None of these 08/10/2025 7:55 AM Gissell Hernadez L * Travel Screening Question Answer Entry Date Author Have you traveled internatio sandra or domestically in the last month? No 08/10/2025 7:55 AM Cuca Hernadez documented in this encounter Plan of Treatment Upcoming Encounters Date Type Department Care Team (Late st Contact Info) Description 09/21/2025 9:15 AM EST Clinical Support Pav CC Head, Neck & Respiratory 800 [facility] 2nd [place] [address] 09/21/2025 9:30 AM EST Office Visit Pav CC Head, Neck & Respiratory 800 [facility], 2nd [place] [address] Gabe Cifuentes, POWER CRANE OPERATOR 800 [facility] Liyah Amaya [facility] [address] [place] [address] 09/21/2025 11:00 AM EST Appointment [facility] [address] [place] [address] 10/05/2025 9:00 AM EST Office Visit [place] [facility] [address], 1st [place] [address] Sanchez Zaldivar MD [address] [facility] [address] [place] [address] 10/05/2025 11:00 AM EST Consult [place] [facility] [address], 1st [place] [address] Shy Marquez, POWER CRANE OPERATOR [address] [place] [address] 10/12/2025 8:30 AM EST Appointment PAV S Radiology [address], 1st [place] [address] documented as of this encounter [...] documented as of this encounter Care Teams Instrumentation Designer Relationship Specialty Start Date End Date System, Provider Not In, [address] [place] [address] PCP - General Family Medicine 03/23/25 Miguel Perez MD [address] [place] [address] [address] [place] [address] Consulting Physician Radiation Oncology 04/09/25 Sherin Romero RN None None Registered Nurse Medical Oncology 07/20/25 documented as of this encounter
--- OUTSIDE RECORDS SUMMARY | 2025-09-02 10:45 | XMS_ITS | Encounter Summary ---
Author Organization Healthcare Address [address] [place] [address] Care Team Providers Care Access Lead Name Role Phone System, Provider Not In MD Primary Care Provider Unavailable Miguel Perez MD Unavailable [phone] Sherin Romero RN Unavailable Unavailable Encounter Details Date Type Department Care Team (Late st Contact Info) Description 08/28/2025 Telephone Pav CC Head, Neck & Respiratory 800 [facility], 2nd [place] [address] Chente Sebastian MD 800 [facility] [address] [place] [address] Social History Tobacco Use Types Packs/Day Years [...] any time in the past 12 m [facility], were you homeless or living in [...] drink first t carroll in the morning (EYE-FERRYBOAT HELPER) to steady your nerves or to get rid of a hangover? 0 03/20/2025 CAGE Questionnaire Score 0 025 Utilities Answer Date Recorded In the past 12 months has th e [employer], gas, oil, or water [employer] threatened to shut off services in your home? No 03/23/2025 Comments No Sex and Gender Information Value Date Recorded Sex Assigned at Female 09/22/2024 11:47 AM EST Legal Sex Female 8:04 PM EDT Gender Identity Not on file Sexual Orientation Not on file documented as of this encounter Miscellaneous Notes * Telephone Encounter - Rickie Wagner PharmD - 08/31/2025 12:44 PM EST Returned call to [facility] and clarified prescription. Rickie Wagner PharmD documented in this encounter Plan of Treatment Upcoming Encounters Date Type Department Care Team (Late st Contact Info) Description 09/21/2025 9:15 AM EST Clinical Support Pav CC Head, Neck & Respiratory 800 [facility], 2nd [place] [address] 09/21/2025 9:30 AM EST Office Visit Pav CC Head, Neck & Respiratory 800 [facility], 2nd [place] [address] Gabe Cifuentes, CERTIFIED SHORTHAND REPORTER [address] [place] [address] 09/21/2025 11:00 AM EST Appointment [facility] [address] [place] [address] 10/05/2025 9:00 AM EST Office Visit [facility] [address], 1st [place] [address] Sanchez Zaldivar MD [address] [place] [address] 10/05/2025 11:00 AM EST Consult [facility] [address], 1st [place] [address] Shy Marquez, CERTIFIED SHORTHAND REPORTER [address] [place] [address] 10/12/2025 8:30 AM EST Appointment PAV S Radiology [address], 1st [place] [address] documented as of this encounter [...] documented as of this encounter Care Teams Access Lead Relationship Specialty Start Date End Date System, Provider Not In, [place] [address] PCP - General Family Medicine 03/23/25 Miguel Perez MD [address] [place] [address] [address] [place] [address] Consulting Physician Radiation Oncology 04/09/25 Sherin Romero, RN None None Registered Nurse Medical Oncology 07/20/25 documented as of this encounter
--- OUTSIDE RECORDS SUMMARY | 2025-09-02 10:45 | XMS_ITS | Encounter Summary ---
Author Organization Healthcare Address [address] [place] [address] Care Team Providers Care Reflesher Name Role Phone System, Provider Not In MD Primary Care Provider Unavailable Miguel Perez MD Unavailable [phone] Sherin Romero RN Unavailable Unavailable Encounter Details Date Type Department Care Team (Late st Contact Info) Description 08/13/2025 Telephone Pav CC Head, Neck & Respiratory 800 [facility], 2nd [place] [address] Chente Sebastian MD [address] [facility] [address] [place] [address] Social History Tobacco Use Types Packs/Day Years [...] drink first t carroll in the morning (EYE-HOUSING INSPECTORS) to steady your nerves or to get rid of a hangover? 0 03/20/2025 CAGE Questionnaire Score 0 025 Utilities Answer Date Recorded In the past 12 months has th e [employer], gas, oil, or water [employer] threatened to shut off services in your [...] AM EST Per daughter Sarahi call to [facility], pt was seen on Friday 08/10 and per conversation wit provider was expecting a medication to be called in due to fatigue and to increase energy. Medication for fatigue: ritalin they think, unsure of dosage Preferred Pharmacy: [facility] [place] [facility] [address] [address] [facility] [address] P: [phone] F: [phone] Sarahi documented in this encounter Plan of Treatment Upcoming Encounters Date Type Department Care Team (Late st Contact Info) Description 09/21/2025 9:15 AM EST Clinical Support Pav CC Head[facility] Neck & Respiratory 800 [facility], 2nd [place] [address] 09/21/2025 9:30 AM EST Office Visit Pav CC Head, Neck & Respiratory [address] [facility], 2nd [place] [address] Gabe Cifuentes APRN 800 [facility] Liyah Conde [facility] [address] [place] [address] 09/21/2025 11:00 AM EST Appointment [facility] 800 [place] [address] 10/05/2025 9:00 AM EST Office Visit [facility] [address], 1st [place] [address] Sanchez Zaldivar MD [address] [place] [address] 10/05/2025 11:00 AM EST Consult [facility] [address], [address]st [place] [address] GloriamartínezShy briceJEFFREY [address] [facility] [address] [place] [address] 10/12/2025 8:30 AM EST Appointment PAV S Radiology [address], 1st [place] [address] documented as of this encounter [...] documented as of this encounter Care Teams Reflesher Relationship Specialty Start Date End Date System, Provider Not In, [address] [place] [address] PCP - General Family Medicine 03/23/25 Miguel Perez MD 800 [facility] [address] [place] [address] Consulting Physician Radiation Oncology 04/09/25 Sherin Romero, RN None None Registered Nurse Medical Oncology 07/20/25 documented as of this encounter
--- OUTSIDE RECORDS SUMMARY | 2025-09-02 10:45 | XMS_ITS | Encounter Summary ---
Author Organization Healthcare Address [address] [place] [address] Care Team Providers Care Strawhat Blocking Operator Name Role Phone System, Provider Not In MD Primary Care Provider Unavailable Miguel Perez MD Unavailable [phone] Sherin Romero RN Unavailable Unavailable Encounter Details Date Type Department Care Team (Late st Contact Info) Description 08/27/2025 Telephone Pav [facility] Head, Neck & Respiratory 800 [facility], 2nd [place] [address] Chente Sebastian MD 800 [facility] [address] [place] [address] Social History Tobacco Use Types Packs/Day Years [...] drink first t carroll in the morning (EYE-PANELBEATER) to steady your nerves or to get rid of a hangover? 0 03/20/2025 CAGE Questionnaire Score 0 025 Utilities Answer Date Recorded In the past 12 months has th e [employer], gas, oil, or water [employer] threatened to shut off services in your [...] Pav CC Head, Neck & Respiratory 800 [facility], [address] [place] [address] 09/21/2025 9:30 AM EST Office Visit Pav [facility] Head, Neck & Respiratory 800 [facility], [address] [place] [address] Gabe Cifuentes, PRODUCT MARKETING SPECIALIST 800 [facility] [address] [place] [address] 09/21/2025 11:00 AM EST Appointment [facility] 800 [place] [address] 10/05/2025 9:00 AM EST Office Visit [place] [facility] [address], 1st [place] [address] Sanchez Zaldivar MD [address] [facility] [address] [place] [address] 10/05/2025 11:00 AM EST Consult [place] [facility] [address], 1st [place] [address] Shy Marquez, PRODUCT MARKETING SPECIALIST [address] [place] [address] 10/12/2025 8:30 AM EST Appointment PAV S Radiology [address], [address] [place] [address] documented as of this encounter Visit Diagnoses [...] documented as of this encounter Care Teams Strawhat Blocking Operator Relationship Specialty Start Date End Date System, Provider Not In, 800 [place] [address] PCP - General Family Medicine 03/23/25 Miguel Perez MD [address] [place] [address] [address] [place] [address] Consulting Physician Radiation Oncology 04/09/25 Sherin Romeor RN None None Registered Nurse Medical Oncology 07/20/25 documented as of this encounter
--- OUTSIDE RECORDS SUMMARY | 2025-09-02 10:45 | XMS_ITS | Encounter Summary ---
Author Organization Healthcare Address [address] [place] [address] Care Team Providers Care Slab Polisher Name Role Phone System, Provider Not In MD Primary Care Provider Unavailable Miguel Perez MD Unavailable [phone] Sherin Romero RN Unavailable Unavailable Encounter Details Date Type Department Care Team (Late st Contact Info) Description 08/31/2025 Orders Only Pav CC Head, Neck & Respiratory 800 [facility], 2nd [place] [address] Chente Sebastian MD 800 [facility] [address] [place] [address] Social History Tobacco Use Types Packs/Day Years [...] in the past 12 m [facility], were you homeless or living in [...] drink first t carroll in the morning (EYE-ADVISOR TO COMMAND IN COMBAT) to steady your nerves or to get rid of a hangover? 0 03/20/2025 CAGE Questionnaire Score 0 025 Utilities Answer Date Recorded In the past 12 months has th e [employer], [employer], oil, or water [employer] threatened to shut off services in your [...] & Respiratory 800 [facility], [address] [place] [address] 09/21/2025 9:30 AM EST Office Visit Pav CC Head, Neck & Respiratory 800 [facility], [address] [place] [address] Gabe Cifuentes, CONSULTING PRACTICE DIRECTOR 800 [facility] [address] [place] [address] 09/21/2025 11:00 AM EST Appointment [facility] 800 [place] [address] 10/05/2025 9:00 AM EST Office Visit [place] [facility] [address], 1st [place] [address] Sanchez Zaldivar MD [address] [facility] [address] [place] [address] 10/05/2025 11:00 AM EST Consult [place] [facility] [address], 1st [place] [address] Shy Marquez, CONSULTING PRACTICE DIRECTOR [address] [place] [address] 10/12/2025 8:30 AM EST Appointment PAV S Radiology [address], [address] [place] [phone] documented as of this encounter Visit Diagnoses [...] documented as of this encounter Care Teams Slab Polisher Relationship Specialty Start Date End Date System, Provider Not In, 800 [place] [address] PCP - General Family Medicine 03/23/25 Miguel Perez MD [address] [place] [address] [address] [place] [address] Consulting Physician Radiation Oncology 04/09/25 Sherin Romero, SKY None None Registered Nurse Medical Oncology 07/20/25 documented as of this encounter
--- OUTSIDE RECORDS SUMMARY | 2025-09-02 10:45 | XMS_ITS | Encounter Summary ---
Author Organization Healthcare Address [address] [place] [address] Care Team Providers Care Cold Meat Chef Name Role Phone System, Provider Not In Primary Care Provider Unavailable Miguel Perez MD Unavailable [phone] Reason for Visit * Reason Onset Date Comments [facility] Same Day Appt/Overbook Request 06/10/2025 Encounter Details Date Type Department Care Team (Late st Contact Info) Description 06/10/2025 Telephone [facility] [address] [place] [address] System, Provider Not In, [address] [place] [address] [facility] Same Day Appt/Overbook Request Social History [...] drink first t carroll in the morning (EYE-SPRAYER INSECTICIDE) to steady your nerves or to get [...] states she only wants to talk to [place]. States she wants to be scheduled 06/11 at 3:45. * Telephone Encounter - Tea Gamez - 06/10/2025 3:47 PM EDT Status Update Call #3 3rd call regarding the status of the initial request. Best contact number: [phone] (mobile) Optimal time of day to reach [...] the initial request. Best contact number: Other: [phone] Optimal time of day to reach caller: [...] will receive notification of the communication/outcome via ContentRealtimehart. * Telephone Encounter - Daniel Hunter - [...] double vision but blurry. Best contact number: [phone] (home) Optimal time of day to reach caller: ANYTIME Additional comments/information from caller: None Note: Please do not reply to this message. Follow-up communication and further actions as a result of this message need to be communicated with the patient directly, if the patient is not active onMyChart. If the patient is active on MyChart, they will receive notification of the communication/outcome via ContentRealtimehart. documented in this encounter Plan of Treatment Upcoming Encounters Date Type Department Care Team (Late st Contact Info) Description 09/21/2025 9:15 AM EST Clinical Support Pav [facility] Head, Neck & Respiratory 800 [facility], 2nd [place] [address] 09/21/2025 9:30 AM EST Office Visit Pav [facility] Head, Neck & Respiratory 800 [facility], 2nd [place] [address] Gabe Cifuentes, QUICK MIXER OPERATOR 800 [facility] [address] [place] [address] 09/21/2025 11:00 AM EST Appointment [facility] 800 [place] [address] 10/05/2025 9:00 AM EST Office Visit [facility] [address], 1st [place] [address] Sanchez Zaldivar MD [address] [place] [address] 10/05/2025 11:00 AM EST Consult [facility] [address], 1st [place] [address] Shy Marquez, QUICK MIXER OPERATOR [address] [place] [address] 10/12/2025 8:30 AM EST Appointment PAV S Radiology [address], 1st [place] [address] documented as of this encounter Visit Diagnoses [...] documented as of this encounter Care Teams Cold Meat Chef Relationship Specialty Start Date End Date System, Provider Not In, [address] [place] [address] PCP - General Family Medicine 03/23/25 Miguel Perez MD [address] [facility] [address] [place] [address] Consulting Physician Radiation Oncology 04/09/25 documented as of this encounter
--- OUTSIDE RECORDS SUMMARY | 2025-09-02 10:45 | XMS_ITS | Encounter Summary ---
Author Organization Healthcare Address [address] [place] [address] Care Team Providers Care Head Neck Surgeon Name Role Phone System, Provider Not In MD Primary Care Provider Unavailable Miguel Perez MD Unavailable [phone] Encounter Details Date Type Department Care Team (Late st Contact Info) Description 06/12/2025 Telephone Pav [facility] Head, Neck & Respiratory 800 [facility], 2nd [place] [address] Chente Sebastian MD 800 [facility] [address] [place] [address] Social History Tobacco Use Types [...] drink first t carroll in the morning (EYE-CUSTOMER SPECIALIST) to steady your nerves or to get rid of a hangover? 0 03/20/2025 CAGE Questionnaire Score 0 025 Utilities Answer Date Recorded In the past 12 months has th e [employer], gas, oil, or water company threatened to [...] optimal time of day to reach caller:Sarahi [phone] Note: Please do not reply to this message. Follow-up communication and further actions as a result of this message need to be communicated with the patient directly, if the patient is not active onMyChart. If the patient is active on MyChart, they will receive notification of the communication/outcome via [employer]. documented in this encounter Plan of Treatment Upcoming Encounters Date Type Department Care Team (Late st Contact Info) Description 09/21/2025 9:15 AM EST Clinical Support Pav [facility] Head, Neck & Respiratory 800 [facility], 2nd [place] [address] 09/21/2025 9:30 AM EST Office Visit [facility] Head, Neck & Respiratory 800 [facility], 2nd [place] [address] Gabe Cifuentes, JEFFREY 800 [facility] [address] [place] [address] 09/21/2025 11:00 AM EST Appointment [facility] 800 [place] [address] 10/05/2025 9:00 AM EST Office Visit [place] [facility] [address], 1st [place] [address] Sanchez Zaldivar MD [address] [place] [address] 10/05/2025 11:00 AM EST Consult [place] [facility] [address], [address] [place] [address] Shy Marquez APRN [address] [place] [address] 10/12/2025 8:30 AM EST Appointment PAV S Radiology [address], 1st [place] [address] documented as of this encounter [...] documented as of this encounter Care Teams Head Neck Surgeon Relationship Specialty Start Date End Date System, Provider Not In, [place] [address] PCP - General Family Medicine 03/23/25 Miguel Perez MD [facility] [address] [place] [address] Consulting Physician Radiation Oncology 04/09/25 documented as of this encounter
--- OUTSIDE RECORDS SUMMARY | 2025-09-02 10:45 | XMS_ITS | Encounter Summary ---
Author Organization Healthcare Address [address] [place] [address] Care Team Providers Care Outside Installation Machinist Name Role Phone System, Provider Not In MD Primary Care Provider Unavailable Miguel Perez MD Unavailable [phone] Sherin Romero RN Unavailable Unavailable Encounter Details Date Type Department Care Team (Late st Contact Info) Description 08/25/2025 Telephone Pav CC Head, Neck & Respiratory 800 [facility], 2nd [place] [address] Chente Sebastian MD 800 [facility] [address] [place] [address] Social History Tobacco Use Types Packs/Day Years [...] time in the past 12 m [facility], were you homeless or living [...] drink first t carroll in the morning (EYE-CONTRACT NEGOTIATOR) to steady your nerves or to get rid of a hangover? 0 03/20/2025 CAGE Questionnaire Score 0 025 Utilities Answer Date Recorded In the past 12 months has th e [employer], gas, oil, or water [employer] threatened to shut off services in your [...] Pav CC Head, Neck & Respiratory 800 [facility], [address]nd [place] [address] 09/21/2025 9:30 AM EST Office Visit Pav CC Head, Neck & Respiratory 800 [facility], [address]nd [place] [address] Gabe Cifuentes, DISC RECORDIST 800 [facility] [address] [place] [address] 09/21/2025 11:00 AM EST Appointment [facility] 800 [place] [address] 10/05/2025 9:00 AM EST Office Visit [place] [facility] [address], 1st [place] [address] Sanchez Zaldivar MD [address] [facility] [address] [place] [address] 10/05/2025 11:00 AM EST Consult [place] [facility] [address], [address]st [place] [address] Shy Marquez, DISC RECORDIST [address] [place] [address] 10/12/2025 8:30 AM EST Appointment PAV S Radiology [address], [address] [place] [address] documented as of this encounter Visit Diagnoses [...] documented as of this encounter Care Teams Outside Installation Machinist Relationship Specialty Start Date End Date System, Provider Not In, 800 [place] [address] PCP - General Family Medicine 03/23/25 Miguel Perez MD [address] [place] [address] [address] [place] [address] Consulting Physician Radiation Oncology 04/09/25 Sherin Romero RN None None Registered Nurse Medical Oncology 07/20/25 documented as of this encounter
--- OUTSIDE RECORDS SUMMARY | 2025-09-02 10:45 | XMS_ITS | Encounter Summary ---
Author Organization Healthcare Address [address] [place] [address] Care Team Providers Care Ssas Developer Name Role Phone System, Provider Not In MD Primary Care Provider Unavailable Miguel Perez MD Unavailable [phone] Sherin Romero RN Unavailable Unavailable Encounter Details Date Type Department Care Team (Late st Contact Info) Description 08/22/2025 Telephone [facility] Oncology Clinic 800 [place] [address] Radha Coker MD 800 [facility] [address] [place] [address] Social History Tobacco Use Types Packs/Day Years [...] drink first t carroll in the morning (EYE-SAS DEVELOPER) to steady your nerves or to get rid of a hangover? 0 03/20/2025 CAGE Questionnaire Score 0 025 Utilities Answer Date Recorded In the past 12 months has th e [employer], gas, oil, or water company threatened to [...] on optimizing supportive care. Radha Coker MD [employer] Cafeteria Head Cook Hematology-Oncology documented in this encounter Plan of Treatment Upcoming Encounters Date Type Department Care Team (Late st Contact Info) Description 09/21/2025 9:15 AM EST Clinical Support Pav CC Head, Neck & Respiratory 800 [facility], 2nd [place] [address] 09/21/2025 9:30 AM EST Office Visit Pav CC Head, Neck & Respiratory 800 [facility], 2nd [place] [address] Gabe Cifuentes, ART GLASS DESIGNER 800 [facility] [address] [place] [address] 09/21/2025 11:00 AM EST Appointment [facility] [address] [place] [address] 10/05/2025 9:00 AM EST Office Visit [place] [facility] [address], 1st [place] [address] Sanchez Zaldivar MD [address] [place] [address] 10/05/2025 11:00 AM EST Consult [place] [facility] [address], 1st [place] [address] Shy Marquez, JEFFREY [address] [place] [address] 10/12/2025 8:30 AM EST Appointment PAV S Radiology [address], 1st [place] [address] documented as of this encounter [...] documented as of this encounter Care Teams Ssas Developer Relationship Specialty Start Date End Date System, Provider Not In, [address] [place] [address] PCP - General Family Medicine 03/23/25 Miguel Perez MD [address] [place] [address] [address] [place] [address] Consulting Physician Radiation Oncology 04/09/25 Sherin Romero, RN None None Registered Nurse Medical Oncology 07/20/25 documented as of this encounter
--- OUTSIDE RECORDS SUMMARY | 2025-09-02 10:45 | XMS_ITS | Encounter Summary ---
Author Organization Healthcare Address [address] [place] [address] Care Team Providers Care Global Marketing Operations Manager Name Role Phone System, Provider Not In MD Primary Care Provider Unavailable Miguel Perez MD Unavailable [phone] Sherin Romero RN Unavailable Unavailable Encounter Details Date Type Department Care Team (Late st Contact Info) Description 08/25/2025 Orders Only Pav CC Head, Neck & Respiratory 800 [facility], 2nd [place] [address] Rickie Wagner, PharmD 800 [facility] [address] [place] [address] Glioblastoma multiforme (CMS/HCC) (Primary Dx) Social History [...] drink first t carroll in the morning (EYE-DEPUTY PROBATION OFFICER) to steady your nerves or to get rid of a hangover? 0 03/20/2025 CAGE Questionnaire Score 0 025 Utilities Answer Date Recorded In the past 12 months has th e [employer], gas, oil, or water [employer] threatened to shut off services in your [...] CC Head, Neck & Respiratory 800 [facility], [address]nd [place] [address] 09/21/2025 9:30 AM EST Office Visit Pav CC Head, Neck & Respiratory 800 [facility], [address]nd [place] [address] Gabe Cifuentes, SEGMENT BLOCK LAYER 800 [facility] [address] [place] [address] 09/21/2025 11:00 AM EST Appointment [facility] 800 [place] [address] 10/05/2025 9:00 AM EST Office Visit [place] [facility] Clinic [address], 1st [place] [address] Sanchez Zaldivar MD [address] [facility] [address] [place] [address] 10/05/2025 11:00 AM EST Consult [place] [facility] Clinic [address], [address]st [place] [address] Shy Marquez, SEGMENT BLOCK LAYER [address] [place] [address] 10/12/2025 8:30 AM EST Appointment PAV S Radiology [address], [address] [place] [address] documented as of this encounter Visit Diagnoses [...] documented as of this encounter Care Teams Global Marketing Operations Manager Relationship Specialty Start Date End Date System, Provider [place] In, [place] [address] PCP - General Family Medicine 03/23/25 Miguel Perez MD [address] [place] [address] [address] [place] [address] Consulting Physician Radiation Oncology 04/09/25 Sherin Romero RN None None Registered Nurse Medical Oncology 07/20/25 documented as of this encounter
--- OUTSIDE RECORDS SUMMARY | 2025-09-02 10:45 | XMS_ITS | Encounter Summary ---
Author Organization Healthcare Address [address] [place] [address] Care Team Providers Care Transportation Planning Engineer Name Role Phone System, Provider Not In MD Primary Care Provider Unavailable Miguel Perez MD Unavailable [phone] Sherin Romero RN Unavailable Unavailable Encounter Details Date Type Department Care Team (Late st Contact Info) Description 08/11/2025 Orders Only Pav CC Head, Neck & Respiratory 800 [facility], 2nd [place] [address] Chente Sebastian MD 800 [facility] [address] [place] [address] Glioblastoma multiforme (CMS/HCC) (Primary Dx); Exam for [...] drink first t carroll in the morning (EYE-ADVANCE AGENT) to steady your nerves or to [...] Pav CC Head, Neck & Respiratory 800 [facility], 2nd [place] [address] 09/21/2025 9:30 AM EST Office Visit Pav CC Head, Neck & Respiratory 800 [facility], [address]nd [place] [address] Gabe Cifuentes, ACADEMIC ADVISING DIRECTOR 800 [facility] [address] [place] [address] 09/21/2025 11:00 AM EST Appointment [facility] 800 [place] [address] 10/05/2025 9:00 AM EST Office Visit [place] [facility] [address], 1st [place] [address] Sanchez Zaldivar MD [address] [facility] [address] [place] [address] 10/05/2025 11:00 AM EST Consult [place] [facility] [address], 1st [place] [address] Shy Marquez, ACADEMIC ADVISING DIRECTOR [address] [place] [address] 10/12/2025 8:30 AM EST Appointment PAV S Radiology [address], [address] [place] [address] documented as of this encounter Results * [...] Research Study Name: [id number] Name of the Um Specialist: Dr. Chente Sebastian Correspondence email: [email or web address] Was this trial started before Sep 10, 2022? After [facility]: Manual release only [2] Reason for preventing [...] a Simple research read. Chente Sebastian MD [facility] RESEARCH ORDERABLES Edited Result - Final documented [...] documented as of this encounter Care Teams Transportation Planning Engineer Relationship Specialty Start Date End Date System, Provider Not In, [address] [place] [address] PCP - General Family Medicine 03/23/25 Miguel Perez MD 800 [facility] [address] [place] [address] Consulting Physician Radiation Oncology 04/09/25 Sherin Romero, RN None None Registered Nurse Medical Oncology 07/20/25 documented as of this encounter
--- OUTSIDE RECORDS SUMMARY | 2025-09-02 10:45 | XMS_ITS | Encounter Summary ---
Author Organization Healthcare Address [address] [place] [address] Care Team Providers Care Road Freight Brake Coupler Name Role Phone System, Provider Not In MD Primary Care Provider Unavailable Miguel Perez MD Unavailable [phone] Sherin Romero RN Unavailable Unavailable Encounter Details Date Type Department Care Team (Latest Contact Info) Description 08/31/2025 Travel Social History Tobacco Use Types Packs/Day [...] drink first t carroll in the morning (EYE-BALANCE RECESSER) to steady your nerves or to get [...] someone who was sick? No / Unsure 08/31/2025 8:15 AM Cuca Berman Do you have any of the follo wing new or worsening symptoms? None of these 08/31/2025 8:15 AM Me joe Berman * Travel Screening Question Answer Date of Assessment Author Have you traveled internatio sandra or domestically in the last month? No 08/31/2025 8:15 AM Cuca Valenzuela documented as of this encounter Mental Status * Communicable Disease Screening Question Answer Entry Date Author Have you been in contact wit h someone who was sick? No / Unsure 08/31/2025 8:15 AM Cuca Berman Do you have any of the follo wing new or worsening symptoms? None of these 08/31/2025 8:15 AM Me joe Berman * Travel Screening Question Answer Entry Date Author Have you traveled internatio sandra or domestically in the last month? No 08/31/2025 8:15 AM Cuca Valenzuela documented in this encounter Plan of Treatment Upcoming Encounters Date Type Department Care Team (Late st Contact Info) Description 09/21/2025 9:15 AM EST Clinical Support [facility] Neck & Respiratory 800 [facility] [address]nd [place] [address] 09/21/2025 9:30 AM EST Office Visit Pav [facility] Head, Neck & Respiratory 800 [facility], 2nd [place] [phone] Gabe Cifuentes, CASING FINISHER AND STUFFER 800 [facility] [address] [place] [address] 09/21/2025 11:00 AM EST Appointment [facility] 800 [place] [address] 10/05/2025 9:00 AM EST Office Visit [place] [facility] [address], 1st [place] [address] Sanchez Zaldivar MD [address] [facility] [address] [place] [address] 10/05/2025 11:00 AM EST Consult [place] [facility] [address], 1st [place] [address] Shy Marquez, CASING FINISHER AND STUFFER [address] [place] [address] 10/12/2025 8:30 AM EST Appointment PAV S Radiology [address], 1st [place] [address] documented as of this encounter [...] documented as of this encounter Care Teams Road Freight Brake Coupler Relationship Specialty Start Date End Date System, Provider Not In, 800 [place] [address] PCP - General Family Medicine 03/23/25 Miguel Perez MD [address] [place] [address] [address] [place] [address] Consulting Physician Radiation Oncology 04/09/25 Sherin Romero RN None None Registered Nurse Medical Oncology 07/20/25 documented as of this encounter
--- OUTSIDE RECORDS SUMMARY | 2025-09-02 10:45 | XMS_ITS | Encounter Summary ---
Author Organization Healthcare Address [address] [place] [address] Care Team Providers Care Conservation Science Officer Name Role Phone System, Provider Not In MD Primary Care Provider Unavailable Miguel Perez MD Unavailable [phone] Sherin Romero RN Unavailable Unavailable Encounter Details Date Type Department Care Team (Late st Contact Info) Description 08/12/2025 Telephone PAV CC Radiation 800 [facility]. [address] [place] [address] Miguel Perez MD [address] [place] [address] Social History Tobacco Use Types [...] drink first t carroll in the morning (EYE-QUALITY ASSURANCE ANALYST) to steady your nerves or to get rid of a hangover? 0 03/20/2025 CAGE Questionnaire Score 0 025 Utilities Answer Date Recorded In the past 12 months has th e [employer], gas, oil, or water company threatened to shut off services in your home? No 03/23/2025 Comments No Sex and Gender Information Value Date Recorded Sex Assigned at Female 09/22/2024 11:47 AM EST Legal Sex Female 8:04 PM EDT Gender Identity Not on file Sexual Orientation Not on file documented as of this encounter Plan of Treatment Upcoming Encounters Date Type Department Care Team ([facility] st Contact Info) Description 09/21/2025 9:15 AM EST Clinical Support Pav [facility] Head, Neck & Respiratory 800 [facility], 2nd [place] [address] 09/21/2025 9:30 AM EST Office Visit Pav CC Head, Neck & Respiratory 800 [facility], 2nd [place] [address] Gabe Cifuentes, ACCOUNTS PAYABLE ASSOCIATE 800 [facility] [address] [place] [address] 09/21/2025 11:00 AM EST Appointment [facility] 800 [place] [address] 10/05/2025 9:00 AM EST Office Visit [place] [facility] [address], 1st [place] [address] Sanchez Zaldivar MD [address] [place] [address] 10/05/2025 11:00 AM EST Consult [place] [facility] [address], 1st [place] [phone] Shy Marquez, ACCOUNTS PAYABLE ASSOCIATE [address] [place] [address] 10/12/2025 8:30 AM EST Appointment PAV S Radiology [address], [address]st [place] [address] documented as of this encounter Visit Diagnoses [...] documented as of this encounter Care Teams Conservation Science Officer Relationship Specialty Start Date End Date System, Provider Not In, [address] [place] [address] PCP - General Family Medicine 03/23/25 Miguel Perez MD [address] [place] [address] [address] [place] [address] Consulting Physician Radiation Oncology 04/09/25 Sherin Romero RN None None Registered Nurse Medical Oncology 07/20/25 documented as of this encounter
--- OUTSIDE RECORDS SUMMARY | 2025-09-02 10:45 | XMS_ITS | Clinical Summary ---
[facility] [address] [place] [address] Care Team Providers Care Medication Aide Name Role Phone Caroline Shultz LIFE COACH Primary Care Provider [phone] Social History Tobacco Use Types Packs/Day Years [...] SCREENING Completed 09/22/2024 Insurance [employer] Care Teams Medication Aide Relationship Specialty Start Date End Date Caroline Shultz APRN [address] [facility] [address] [place] [address] PCP - General Internal Medicine 09/15/24
--- OUTSIDE RECORDS SUMMARY | 2025-09-02 10:45 | XMS_ITS | Encounter Summary ---
Author Organization Healthcare Address [address] [place] [address] Care Team Providers Care Senior Patient Account Representative Name Role Phone System, Provider Not In MD Primary Care Provider Unavailable Miguel Perez MD Unavailable [phone] Sherin Romero RN Unavailable Unavailable Encounter Details Date Type Department Care Team (Late st Contact Info) Description 08/13/2025 Orders Only Pav CC Head, Neck & Respiratory 800 [facility], 2nd [place] [address] Chente Sebastian MD 800 [facility] [address] [place] [address] Social History Tobacco Use Types Packs/Day Years [...] time in the past [address] [facility], were you homeless or living in [...] drink first t carroll in the morning (EYE-COMMUNICATION COORDINATOR) to steady your nerves or to get rid of a hangover? 0 03/20/2025 CAGE Questionnaire Score 0 025 Utilities Answer Date Recorded In the past 12 months has th e [employer], [employer], oil, or water [employer] threatened to shut off services in your [...] Respiratory 800 [facility], 2nd [place] [address] 09/21/2025 9:30 AM EST Office Visit Pav [facility] Head, Neck & Respiratory [address] [facility], 2nd [place] [address] aGbe Cifuentes, BIODIESEL PRODUCTION TECHNICIAN 800 [facility] [address] [place] [address] 09/21/2025 11:00 AM EST Appointment [facility] 800 [place] [address] 10/05/2025 9:00 AM EST Office Visit [place] [facility] [address], 1st [place] [address] Sanchez Zaldivar MD [address] [facility] [address] [place] [address] 10/05/2025 11:00 AM EST Consult [place] [facility] [address], 1st [place] [address] Shy Marquez, BIODIESEL PRODUCTION TECHNICIAN [address] [place] [address] 10/12/2025 8:30 AM EST Appointment PAV S Radiology [address], [address] [place] [phone] documented as of this encounter Visit Diagnoses [...] as of this encounter Care Teams Senior Patient Account Representative Relationship Specialty Start Date End Date System, Provider Not In, 800 [place] [address] PCP - General Family Medicine 03/23/25 Miguel Perez MD [address] [place] [address] [address] [place] [address] Consulting Physician Radiation Oncology 04/09/25 Sherin Romero, SKY None None Registered Nurse Medical Oncology 07/20/25 documented as of this encounter
--- OUTSIDE RECORDS SUMMARY | 2025-09-02 10:45 | XMS_ITS | Encounter Summary ---
Author Organization Healthcare Address [address] [place] [address] Care Team Providers Care Insurance Defense Paralegal Name Role Phone System, Provider Not In MD Primary Care Provider Unavailable Miguel Perez MD Unavailable [phone] Sherin Romero RN Unavailable Unavailable Encounter Details Date Type Department Care Team (Late st Contact Info) Description 08/25/2025 Orders Only Pav CC Head, Neck & Respiratory 800 [facility], 2nd [place] [address] Rickie Wagner, PharmD 800 [facility] [address] [place] [address] Glioblastoma multiforme (CMS/HCC) (Primary Dx) Social History [...] any time in the past 12 m [facility], were you homeless or [...] drink first t carroll in the morning (EYE-PAYABLE MANAGER) to steady your nerves or to get rid of a hangover? 0 03/20/2025 CAGE Questionnaire Score 0 025 Utilities Answer Date Recorded In the past 12 months has th e electric, gas, oil, or water [employer] threatened to shut off services in your [...] & Respiratory 800 [facility], 2nd [place] [address] 09/21/2025 9:30 AM EST Office Visit Pav CC Head, Neck & Respiratory 800 [facility], 2nd [place] [address] Gabe Cifuentes, CUSTOMS IMPORT SPECIALIST 800 [facility] [address] [place] [address] 09/21/2025 11:00 AM EST Appointment [facility] 800 [place] [address] 10/05/2025 9:00 AM EST Office Visit [place] [facility] [address], 1st [place] [address] Sanchez Zaldivar MD [address] [facility] [address] [place] [address] 10/05/2025 11:00 AM EST Consult [place] Clinic [facility] [address], 1st [place] [address] Shy Marquez, CUSTOMS IMPORT SPECIALIST [address] [place] [address] 10/12/2025 8:30 AM EST Appointment PAV S Radiology [address], 1st [place] [address] documented as of this encounter Visit Diagnoses [...] documented as of this encounter Care Teams Insurance Defense Paralegal Relationship Specialty Start Date End Date System, Provider [place] In, [place] [address] PCP - General Family Medicine 03/23/25 Miguel Perez MD [address] [place] [address] [address] [place] [address] Consulting Physician Radiation Oncology 04/09/25 Sherin Romero RN None None Registered Nurse Medical Oncology 07/20/25 documented as of this encounter
--- OUTSIDE RECORDS SUMMARY | 2025-09-02 10:46 | XMS_ITS | Encounter Summary ---
Author Organization Healthcare Address [address] [place] [address] Care Team Providers Care Punch Press Feeder Name Role Phone System, Provider Not In MD Primary Care Provider Unavailable Miguel Perez MD Unavailable [phone] Sherin Romero RN Unavailable Unavailable Encounter Details Date Type Department Care Team (Late st Contact Info) Description 08/31/2025 Orders Only Pav CC Head, Neck & Respiratory 800 [facility], 2nd [place] [address] Rickie Wagner, PharmD 800 [facility] [address] [place] [address] Social History Tobacco Use Types Packs/Day Years [...] drink first t carroll in the morning (EYE-INCOME TAX EXPERT) to steady your nerves or to get rid of a hangover? 0 03/20/2025 CAGE Questionnaire Score 0 025 Utilities Answer Date Recorded In the past 12 months has th e [employer], [employer], oil, or water company threatened to shut [...] Pav CC Head, Neck & Respiratory 800 [facility], 2nd [place] [address] 09/21/2025 9:30 AM EST Office Visit Pav CC Head, Neck & Respiratory 800 [facility], [address]nd [place] [address] Gabe Cifuentes, PATIENT CARRIER 800 [facility] [address] [place] [address] 09/21/2025 11:00 AM EST Appointment [facility] 800 [place] [address] 10/05/2025 9:00 AM EST Office Visit [place] [facility] [address], 1st [place] [address] Sanchez Zaldivar MD [address] [facility] [address] [place] [address] 10/05/2025 11:00 AM EST Consult [place] [facility] [address], 1st [place] [address] Shy Marquez, PATIENT CARRIER [address] [place] [address] 10/12/2025 8:30 AM EST Appointment PAV S Radiology [address], [address] [place] [phone] documented as of this encounter Visit Diagnoses [...] documented as of this encounter Care Teams Punch Press Feeder Relationship Specialty Start Date End Date System, Provider Not In, 800 [place] [address] PCP - General Family Medicine 03/23/25 Miguel Perez MD 800 [facility] [address] [place] [address] Consulting Physician Radiation Oncology 04/09/25 Sherin Romero, RN None None Registered Nurse Medical Oncology 07/20/25 documented as of this encounter
--- OUTSIDE RECORDS SUMMARY | 2025-09-02 10:46 | XMS_ITS | Encounter Summary ---
Author Organization Healthcare Address [address] [place] [address] Care Team Providers Care Data Management Specialist Name Role Phone System, Provider Not In MD Primary Care Provider Unavailable Miguel Perez MD Unavailable [phone] Sherin Romero RN Unavailable Unavailable Reason for Referral * Imaging (Routine) - Pending Review Specialty Diagnoses / Procedures Referred By Génesis salgado Referred To Contact Radiology Diagnoses Glioblastoma multiforme (CMS/HCC) Research study patient Procedures MR Head w and wo IV Contrast Chente Sebastian MD 800 [facility] [address] [place] [address] Phone: tel: fax: Referral ID Status Reason Start Date Expiration Date V isits Requested Visits Authorized [id number] Pending Review 09/01/2025 03/03/2027 1 1 Encounter Details Date Type Department Care Team (Late st Contact Info) Description 09/01/2025 Orders Only Pav CC Head, Neck & Respiratory 800 [facility], 2nd [place] [address] Sherin Romero, RN None None Glioblastoma multiforme (CMS/HCC) (Primary Dx); Research study [...] max number of drinks Not on file 07/11/ 2025 Cage Beverages a week Not on file 03/20/2025 Have you ever felt you should CUT down on your d rinking? 0 03/20/2025 Have you been ANNOYED by people criticizing your drinking? 0 03/20/2025 Have you felt GUILTY about your drinking? 0 03/20/2025 Have you had a drink first t carroll in the morning (EYE-BOARD DESIGN ENGINEER) to steady your nerves or to get rid of a hangover? 0 03/20/2025 CAGE Questionnaire Score 0 025 Utilities Answer Date Recorded In the past 12 months has th e [employer], gas, oil, or water [employer] threatened to shut off services in your [...] CC Head, Neck & Respiratory 800 [facility], 2nd [place] [address] 09/21/2025 9:30 AM EST Office Visit Pav CC Head, Neck & Respiratory 800 [facility], 2nd [place] [phone] Gabe Cifuentes, JEFFREY 800 [facility] Liyah Montoyason [facility] [address] [place] [address] 09/21/2025 11:00 AM EST Appointment [facility] 800 [place] [address] 10/05/2025 9:00 AM EST Office Visit [facility] [address], 1st [place] [address] Sanchez Zaldivar MD [address] [facility] [address] [place] [address] 10/05/2025 11:00 AM EST Consult [place] [facility] [address], 1st [place] [address] AnthonyShy hyde, WASTE OIL PUMPER [address] [place] [address] 10/12/2025 8:30 AM EST Appointment PAV S Radiology [address], 1st [place] [address] Scheduled Orders Name Type Priority Associated Diagnoses Orde r Schedule MR Head w and wo IV Contrast Imaging Routine Glioblastoma multiforme (CMS/HCC) Research study patient Expected: 10/12/2025, Expires: 03/05/2027 documented as of this encounter Visit Diagnoses [...] documented as of this encounter Care Teams Data Management Specialist Relationship Specialty Start Date End Date System, Provider Not In, [address] [place] [address] PCP - General Family Medicine 03/23/25 Miguel Perez MD [address] [place] [address] [address] [place] [address] Consulting Physician Radiation Oncology 04/09/25 Sherin Romero, RN None None Registered Nurse Medical Oncology 07/20/25 documented as of this encounter
--- OUTSIDE RECORDS SUMMARY | 2025-09-02 10:46 | XMS_ITS ---
Author Organization Healthcare Address [address] [place] [address] Care Team Providers Care Therapy Tech Name Role Phone System, Provider Not In MD Primary Care Provider Unavailable Miguel Perez MD Unavailable [phone] Sherin Romero RN Unavailable Unavailable Active Problems [...] Normotensive - Sodium Goals: Normonatremia - recommend PT/OT/DIRECTOR OF COMPLIANCE evaluation - No indication to obtain echo with most recently obtained on 09/2024 - follow-up [facility] in 8-12 weeks following [...] Normotensive - Sodium Goals: Normonatremia - recommend PT/OT/DIRECTOR OF COMPLIANCE evaluation - No indication to obtain echo with most recently [facility]2024 [facility] following [...] Normotensive - Sodium Goals: Normonatremia - recommend PT/OT/DIRECTOR OF COMPLIANCE evaluation - No indication to obtain echo [...] would like to follow here at the [facility]. - final treatment planning pending [...] would like to follow here at the [facility]. - final treatment planning pending [...] would like to follow here at the [facility]. - final treatment planning pending [...] would like to follow here at the [facility]. - final treatment planning pending [...] to monitor Current Treatment and Therapy Plans [id number]: Pembrolizumab or Placebo + Optune Every 21 Days / Temozolomide Every 28 Days* Plan Start Date:05/28/2025 Plan Provider:Chente Sebastian MD Linked Problems Glioblastoma multiforme (CMS /HCC) Treatment Medications Current Day (Day 1 , Cycle 6 - Planned for 09/21/2025) Next Day (Day 1, Cycle 7 - Planned for 10/12/2025) RES - pembrolizumab or place sharla IVPBtemozolomide [...]
--- OUTSIDE RECORDS SUMMARY | 2025-09-02 10:46 | XMS_ITS | Encounter Summary ---
Author Organization Healthcare Address [address] [place] [address] Care Team Providers Care Security Shift Manager Name Role Phone System, Provider Not In MD Primary Care Provider Unavailable Miguel Perez MD Unavailable [phone] Sherin Romero RN Unavailable Unavailable Encounter Details Date Type Department Care Team (Late st Contact Info) Description 08/31/2025 Orders Only Pav CC Head, Neck & Respiratory 800 [facility], 2nd [place] [phone] Heena Carroll Social History Tobacco Use Types Packs/Day Years [...] drink first t carroll in the morning (EYE-PANEL INSTRUMENT REPAIRER) to steady your nerves or to get [...] [facility], 2nd [place] [address] 09/21/2025 9:30 AM EST Office Visit Pav CC Head, Neck & Respiratory 800 [facility], 2nd [place] [address] Gabe Cifuentes, FIRE EXTINGUISHER INSTALLER 800 [facility] [address] [place] [address] 09/21/2025 11:00 AM EST Appointment [facility] 800 [place] [address] 10/05/2025 9:00 AM EST Office Visit [facility] [address], 1st [place] [address] Sanchez Zaldivar MD [address] [place] [address] 10/05/2025 11:00 AM EST Consult [facility] [address], 1st [place] [address] Shy Marquez, FIRE EXTINGUISHER INSTALLER [address] [place] [address] 10/12/2025 8:30 AM EST Appointment PAV S Radiology [address], [address] [place] [address] documented as of this encounter Visit [...] documented as of this encounter Care Teams Security Shift Manager Relationship Specialty Start Date End Date System, Provider Not In, [address] [place] [address] PCP - General Family Medicine 03/23/25 Miguel Perez MD [address] [place] [address] [address] [place] [address] Consulting Physician Radiation Oncology 04/09/25 Sherin Romero, RN None None Registered Nurse Medical Oncology 07/20/25 documented as of this encounter
--- OUTSIDE RECORDS SUMMARY | 2025-09-02 10:46 | XMS_ITS | Clinical Summary ---
Author Organization [facility] Address [address] [place] [address] Care Team Providers Care Patternmaker Plaster Name Role Phone System, Provider Not In MD Primary Care Provider Unavailable Miguel Perez MD Unavailable [phone] Sherin Romero RN Unavailable Unavailable Allergies Active [...] mouth 2 times a day. 180 tablet 025 2025 Active prochlorperazine (Compazine) 10 MG tabletIndications :Glioblastoma multiforme (CMS/HCC) Take 1 tablet by mouth every 6 hours as needed for nausea or vomiting. 30 tablet 5 025 Active senna (Senokot) 8.6 MG tablet Take 2 tablets by mouth nightly. 30 tablet 5 025 Active Eliquis 5 MG tablet Take 1 tablet by mouth 2 times a day. 025 Active polyethylene glycol (Miralax) 17 g packet Take 17 g by mouth daily. 30 packet 5 08/18/2 025 Active sertraline (Zoloft) 25 MG tablet Take 1 tablet by mouth daily. Total dose of 75 mg daily (50 mg tablet + 25 mg tablet) Active ondansetron (Zofran) 8 MG tabletIndications :Glioblastoma multiforme (CMS/HCC) Take 1 tab (8mg) by mouth daily 30 minutes prior to temozolomide, then up to every 8 hours (max: 3/day) as needed for nausea/vomiting 90 tablet 1 Active ascorbic acid (Vitamin C) 500 MG tablet Take 1 tablet by mouth daily. Active cholecalciferol (Vitamin D-3) 25 MCG (1000 UT) tablet Take 1 tablet by mouth daily. Active Acetaminophen Extra Strength 500 MG tablet TAKE TWO TABLETS BY MOUTH EVERY 6 HOURS NEEDED FOR PAIN 100 tablet 1 Active Ascorbic Acid 74716 MG/30ML solution Infuse 87.5 g into a venous catheter 2 times a week. 175 mL 10 Active lisinopril (Prinivil) 20 MG tablet Take 1 tablet by mouth daily. 30 tablet 3 Active methylphenidate (Ritalin) 20 MG tablet Take 1 tablet by mouth 2 times a day. 60 tablet 025 2025 Active methylphenidate (Ritalin) 20 MG tablet Take 1 tablet by mouth 2 times a day. 60 tablet 025 2025 Active OLANZapine zydis (ZyPREXA) 5 MG disintegrating tablet DISSOLVE ONE TABLET BY MOUTH EVERY 8 HOURS NEEDED FOR NAUSEA AND VOMITING Active temozolomide (Temodar) 140 MG chemo capsuleIndication s:Glioblastoma multiforme (CMS/HCC) Take 3 capsules (420 mg total) by mouth nightly. Take on Days 1-5 every 28 days 15 capsule 10 025 2024 Discontinued temozolomide (Temodar) 20 MG chemo capsuleIndication s:Glioblastoma multiforme (CMS/HCC) Take 3 capsules (60 mg total) by mouth daily. Total dose consists of temozolomide 250 mg cap x 1 + 20 mg caps x 3 for total nightly dose of 310 mg. 15 capsule 8 025 2024 Discontinued temozolomide (Temodar) 250 MG chemo capsuleIndication s:Glioblastoma multiforme (CMS/HCC) Take 1 capsule (250 mg total) by mouth daily. Total dose consists of temozolomide 250 mg cap x 1 + 20 mg caps x 3 for total nightly dose of 310 mg. 5 capsule 8 025 2024 Discontinued temozolomide (Temodar) 100 MG chemo capsuleIndication s:Glioblastoma multiforme (CMS/HCC) Take 3 capsules (300 mg total) by mouth nightly. Take on Days 1-5 every 28 days (5 days on followed by 23 days off). Total nightly dose consists of temozolomide 100 mg caps x 3 for total of 300 mg. 15 capsule 8 025 2024 Discontinued Active Problems Problem Noted Date [...] Normotensive - Sodium Goals: Normonatremia - recommend PT/OT/YARD DRIVER evaluation - No indication to obtain echo [...] Normotensive - Sodium Goals: Normonatremia - recommend PT/OT/YARD DRIVER evaluation - No indication to obtain echo with most recently obtained on 09/2024 - follow-up /[facility] in 8-12 weeks following [...] Normotensive - Sodium Goals: Normonatremia - recommend PT/OT/YARD DRIVER evaluation - No indication to obtain echo [...] [facility]. - final treatment planning pending [...] Medicine consulted, recommendations from 02/22 - Since -September 2024 sodium has ranged from 127-134 - [...] would like to follow here at the [facility]. - final treatment planning pending [...] would like to follow here at the [facility]. - final treatment planning pending [...] would like to follow here at the [facility]. - final treatment planning pending [...] Encounters Date Type Department Care Team Description 09/01/2025 Orders Only [facility] [address] [place] [address] Sherin Romero, RN Glioblastoma multiforme (CMS/HCC) (Primary Dx); Research study patient 08/31/2025 9:08 AM EST - 08/31/2025 11:59 PM EST Hospital Encounter [facility] [address] [place] [address] Glioblastoma multiforme (CMS/HCC) (Primary Dx) Discharge Disposition: Home or Self Care 08/31/2025 8:30 AM EST Office Visit [facility] [address], [address] [place] [address] Gabe Cifuentes APRN Glioblastoma multiforme (CMS/HCC) (Primary Dx); Research study patient 08/31/2025 8:15 AM EST Clinical Support [facility] [address], [address] [place] [address] Glioblastoma multiforme (CMS/HCC) 08/31/2025 Orders Only [facility] [address], [address] [place] [address] Heena Carroll 08/31/2025 Orders Only [facility] [address], [address] [place] [address] Rickie Wagner, PharmDee 08/31/2025 Orders Only [facility] [address], [address] [place] [address] Chente Sebastian MD 08/31/2025 Travel 08/28/2025 Telephone [facility] [address], [address] [place] [address] Chente Sebastian MD 08/27/2025 Telephone [facility] [address], [address] [place] [address] Chente Sebastian MD 08/25/2025 Telephone [facility] [address], [address] [place] [address] Chente Sebastian MD 08/25/2025 Orders Only [facility] [address], [address] [place] [address] Rickie Wagner, PharmD Glioblastoma multiforme (CMS/HCC) (Primary Dx) 08/25/2025 Orders Only [facility] [address], [address]nd [place] [address] Rickie Wagner, Velma Glioblastoma multiforme (CMS/HCC) (Primary Dx) 08/22/2025 Telephone [facility] [address] [place] [address] Radha Coker MD 08/13/2025 Orders Only [facility] [address] [address] Chente Sebastian MD 08/13/2025 Telephone [facility] [address] [address] Chente Sebastian MD 08/12/2025 Telephone [facility]iation [address] [id number] [place] [phone] Miguel Perez MD 08/11/2025 Orders Only [facility] [address] [address] Chente Sebastian MD Glioblastoma multiforme (CMS/HCC) (Primary Dx); Exam for clinical research 08/10/2025 3:00 PM EST - 08/10/2025 11:59 PM EST Hospital Encounter [facility] [address] [place] [address] Glioblastoma multiforme (CMS/HCC) (Primary Dx) Discharge Disposition: Home or Self Care 08/10/2025 2:20 PM EST Office Visit [facility] [address] [address] Chente Sebastian MD Glioblastoma multiforme (CMS/HCC) (Primary Dx); Research study patient 08/10/2025 1:45 PM EST Clinical Support [facility] [address] [address] Glioblastoma multiforme (CMS/HCC); Exam for clinical research 08/10/2025 7:56 AM EST - 08/10/2025 2:59 PM EST Hospital Encounter [facility] MRI [address] [place] [id number] Brain mass; Glioblastoma multiforme (CMS/HCC) Discharge Disposition: Home or Self Care 08/10/2025 - 08/10/2025 7:55 AM EST Hospital Encounter [facility] [address] [place] [address] Glioblastoma multiforme (CMS/HCC); Exam for clinical research Discharge Disposition: Home or Self Care 08/10/2025 Travel 08/09/2025 Travel 08/05/2025 Orders Only [facility] [address] [facility], [address] [place] [address] Chente Sebastian MD Glioblastoma multiforme (CMS/HCC) (Primary Dx); Exam for clinical research 07/22/2025 2:10 PM EST - 07/22/2025 11:59 PM EST Hospital Encounter [facility] [address] [place] [address] Glioblastoma multiforme (CMS/HCC) (Primary Dx) Discharge Disposition: Home or Self Care 07/22/2025 1:30 PM EST Office Visit [facility] [address] [facility], [address] [place] [address] Gabe Cifuenets APRN Glioblastoma multiforme (CMS/HCC) (Primary Dx); 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) 07/22/2025 1:15 PM EST Clinical Support [facility] [address] [facility], [address] [place] [address] Glioblastoma multiforme (CMS/HCC); Exam for clinical research 07/22/2025 Travel 07/22/2025 Telephone [facility] [address], [address] [place] [phone] System, Provider Not InMD 07/21/2025 Telephone [facility] [address], [address] [place] [phone] System, Provider Not In, 07/21/2025 Orders Only [facility] [address] [facility], [address] [place] [address] Chente Sebastian MD Glioblastoma multiforme (CMS/HCC) (Primary Dx); Exam for clinical research 07/17/2025 Orders Only [facility] [address] [place] [address] Chente Sebastian MD 07/15/2025 Travel 07/15/2025 Orders Only [facility] [address] [place] [address] Rickie Wagner, PharmD 07/14/2025 Telephone [facility] [address] , [address] [place] [address] Gabe Cifuentes, RAILROAD ENGINEER 07/06/2025 9:30 AM EDT Office Visit [facility] [address], [address] [place] [address] Sanchez Zaldivar MD Glioblastoma multiforme ([facility]/HCC) (Primary Dx); Expressive aphasia; Brain mass 07/06/2025 Travel 07/02/2025 Orders Only [facility] [address] [place] [address] Chente Sebastian MD 07/01/2025 11:00 AM EDT - 07/01/2025 11:59 PM EDT Hospital Encounter [facility] [address] [place] [address] Glioblastoma multiforme (CMS/HCC) (Primary Dx) Discharge Disposition: Home or Self Care 07/01/2025 10:21 AM EDT - 07/01/2025 10:59 AM EDT Hospital Encounter [facility] [address] [place] [address] Pain and swelling of lower extremity, unspecified laterality Discharge Disposition: Home or Self Care 07/01/2025 9:40 AM EDT Office Visit [facility] [address] [place] [address] hCente Sebastian MD Glioblastoma multiforme (CMS/HCC) (Primary Dx) 07/01/2025 9:15 AM EDT Clinical Support [facility] [address] [address] Glioblastoma multiforme ([facility]/HCC) 07/01/2025 Social Work Psych Oncology [address] [place] [address] Luisa Villafana 07/01/2025 Orders Only [facility] [address] [address] Sherin Romero, RN Glioblastoma multiforme ([facility]) (Primary Dx) 07/01/2025 Orders Only [facility] [address] [address] Sherin Romero, RN Pain and swelling of lower extremity, unspecified laterality (Primary Dx) 07/01/2025 Travel 06/30/2025 Travel 06/30/2025 Orders Only [facility] [address] [address] Ashlyn Irvin, SKY 06/29/2025 Telephone [facility] [address] [place] [address] Pedro Jefferson, PharmD 06/17/2025 Refill [facility] [address] [address] Chente Sebastian MD Glioblastoma multiforme ([facility]) 06/14/2025 Refill [facility] [address] [phone] Chente Sebastian MD 06/12/2025 Telephone [facility] [address] [phone] Chente Sebastian MD 06/11/2025 4:20 PM EDT Ancillary Procedure [facility] [address] [place] [address] 06/11/2025 4:15 PM EDT Ancillary Procedure [facility] [address] [place] [address] 06/11/2025 4:15 PM EDT Ancillary Procedure [facility] [address] [place] [address] 06/11/2025 3:45 PM EDT Office Visit [facility] [address] [place] [address] Qamar Waller, OD Glioblastoma multiforme (CMS/HCC) (Primary Dx); Blurred vision, left eye; Age-related nuclear cataract of right eye; Combined forms of 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; Hyperopia of right eye; Hyperopia of left eye with astigmatism; Presbyopia of both eyes 06/11/2025 Travel 06/10/2025 Telephone [facility] [address] [place] [address] System, Provider Not In, HCMariah Same Day Appt/Overbook Request 06/10/2025 Social Work Psych Oncology [address] [place] [address] Luisa Villafana 06/08/2025 10:23 AM EDT - 06/08/2025 11:59 PM EDT Hospital Encounter [facility] [address] [place] [address] Glioblastoma multiforme (CMS/HCC) (Primary Dx) Discharge Disposition: Home or Self Care 06/08/2025 Travel 06/06/2025 Travel 06/05/2025 9:05 AM EDT - 06/05/2025 11:59 PM EDT Hospital Encounter [facility] [address] [facility]. [address] [place] [phone] Olivia Etienne, RAILROAD ENGINEER, DNP Brain mass (Primary Dx); Glioblastoma multiforme (CMS/HCC) Discharge Disposition: Still a Patient 06/05/2025 Clinical Support [facility] [address] [facility], [address]nd [place] [address] Rickie Wagner, PharmD Glioblastoma multiforme (CMS/HCC) (Primary Dx) 06/05/2025 Travel from Last 3 Months Immunizations Immunization [...] No 03/23/2025 Housing Stability Vital Sign Answer Rtip e Recorded In the last 12 months, [...] drink first t carroll in the morning (EYE-CHIEF MEDICAL PHYSICIST) to steady your nerves or to get [...] Pulse 74 08/31/2025 9:10 AM EST Temperature 36.3 C (97.4 F) 08/31/2025 8:31 AM EST Respiratory Rate 18 08/31/2025 9:10 AM EST Oxygen Saturation 97% 08/31/2025 9:10 AM EST Inhaled Oxygen Concentration - - Weight 96.5 kg (212 lb 11.9 oz) 08/31/2025 9:10 AM EST Height 167.6 cm (5' 6 ) 08/31/2025 9:10 AM EST Body Mass Index 34.34 08/31/2025 9:10 AM EST Plan of Treatment Upcoming Encounters Date Type Department Care Team ([facility] Contact Info) Description 09/21/2025 9:15 AM EST Clinical Support [facility] [address] [facility], [address]nd [place] [address] 09/21/2025 9:30 AM EST Office Visit [facility] [address] [facility], [address]nd [place] [address] Gabe Cifuentes, RAILROAD ENGINEER [address] [facility] [address] [place] [address] 09/21/2025 11:00 AM EST Appointment [facility] [address] [place] [address] 10/05/2025 9:00 AM EST Office Visit [place] [facility] [address], [address] [place] [address] Sanchez Zaldivar MD [address] [place] [address] 10/05/2025 11:00 AM EST Consult [facility] [address], [address] [place] [address] Shy Marquez, RAILROAD ENGINEER [address] [place] [address] 10/12/2025 8:30 AM EST Appointment [facility] Radiology [address], [address] [place] [phone] Health Maintenance Due Date Last Done Comments [...] UKY-Zoster Vaccines (2 of 2) 07/31/2018 06/05/2018 PSR-AMVXR-16 Vaccine ( - season) 2025 07/14/2021, 10/08/2020, [...] this topic Medical Devices Implanted Type Area Java Spring Developer Device Identifier Shelf Expiration Date Model / Serial / Lot Graft Dura Repair 2x2 Synthe[employer] - [id number] Implanted:Qty: 1 on 02/24/2025 by Sanchez Zaldivar MD at [facility] [email or web address] [facility]-[id number] 09/09/2026 [id number] / / [id number] Cover, Neuro Azalea Lp 17mm - [id number] Implanted:Qty: 3 on 02/24/2025 by Sanchez Zaldivar MD at [facility] [email or web address] [facility]-[id number] / / Plate, 2 Hole Low Profile - [id number] Implanted:Qty: 1 on 02/24/2025 by Sanchez Zaldivar MD at [facility]-[id number] / / Screw Ti Matrixneuro Selfdrill 4mm - [id number] Implanted:Qty: 15 on 02/24/2025 by Sanchez Zaldivar MD at [facility] [id number] / / Procedures Procedure Name Priority Date/Time Associated Diagnosis Comments CBC WITH AUTO DIFFERENTIAL Routine 08/31/2025 8:36 AM EST Glioblastoma multiforme (CMS/HCC) COMPREHENSIVE METABOLIC PANEL, PLASMA Routine 08/31/2025 8:36 AM EST Glioblastoma multiforme (CMS/HCC) PROTHROMBIN TIME(PT) / INR Routine 08/10/2025 2:20 [...] 4:11 PM EDT Blurred vision, left eye HEMOGLOBIN A1C Routine 02/19/2025 4:17 PM EDT HEPATITIS C ANTIBODY - ED W/REFLEX TO HCV QUANT PCR STAT 09/22/2024 10:51 AM EST from Last 3 Months or Most Recently Relevant to Health Maintenance Results * (ABNORMAL) CBC and differential (08/31/2025 8:36 AM EST) Only the most recent of4 resultswithin the time period is included. WBC Count 4.63 3.70 - 10.30 10*3/uL LAB HEMATOLOGY METHOD 08/31/2025 9:23 AM EST [facility] RBC Count 4.11 3.90 - 5.20 10*6/uL LAB HEMATOLOGY METHOD 08/31/2025 9:23 AM EST [facility] HGB 11.6 11.2 - 15.7 g/dL LAB HEMATOLOGY METHOD 08/31/2025 9:23 AM EST [facility] HCT 35.0 34.0 - 45.0 % LAB HEMATOLOGY METHOD 08/31/2025 9:23 AM EST [facility] Platelet Count 193 155 - 369 10*3/uL LAB HEMATOLOGY METHOD 08/31/2025 9:23 AM EST [facility] MCV 85 79 - 98 fL LAB HEMATOLOGY METHOD 08/31/2025 9:23 AM EST [facility] MCH 28.2 26.0 - 32.0 pg LAB HEMATOLOGY METHOD 08/31/2025 9:23 AM EST [facility] MCHC 33.1 30.7 - 35.5 g/dL LAB HEMATOLOGY METHOD 08/31/2025 9:23 AM EST [facility] RDW 14.6(H) 11.5 - 14.5 % LAB HEMATOLOGY METHOD 08/31/2025 9:23 AM EST [facility] MPV 9.8 8.8 - 12.5 fL LAB HEMATOLOGY METHOD 08/31/2025 9:23 AM EST [facility] nRBC 0.0 <=0.0 per 100 WBCs LAB HEMATOLOGY METHOD 08/31/2025 9:23 AM EST [facility] Differential Type Automated LAB HEMATOLOGY METHOD 08/31/2025 9:23 AM [facility] Neutrophils % 69 % LAB HEMATOLOGY METHOD 08/31/2025 9:23 AM EST [facility] Lymphocytes % 16 % LAB HEMATOLOGY METHOD 08/31/2025 9:23 AM EST [facility] Monocytes % 12 % LAB HEMATOLOGY METHOD 08/31/2025 9:23 AM EST [facility] Eosinophils % 3 % LAB HEMATOLOGY METHOD 08/31/2025 9:23 AM EST [facility] Basophils % 0 % LAB HEMATOLOGY METHOD 08/31/2025 9:23 AM EST [facility] Immature Granulocytes % 0 % LAB HEMATOLOGY METHOD 08/31/2025 9:23 AM EST [facility] Neutrophils Absolute 3.13 1.60 - 6.10 10*3/uL LAB HEMATOLOGY METHOD 08/31/2025 9:23 AM EST [facility] Lymphocytes Absolute 0.76(L) 1.20 - 3.90 10*3/uL LAB HEMATOLOGY METHOD 08/31/2025 9:23 AM EST [facility] Monocytes Absolute 0.56 0.30 - 0.90 10*3/uL LAB HEMATOLOGY METHOD 08/31/2025 9:23 AM EST [facility] Eosinophils Absolute 0.15 0.00 - 0.50 10*3/uL LAB HEMATOLOGY METHOD 08/31/2025 9:23 AM EST [facility] Basophils Absolute 0.02 0.00 - 0.10 10*3/uL LAB HEMATOLOGY METHOD 08/31/2025 9:23 AM [facility] Immature Granulocytes Absolute 0.01 0.00 - 0.06 10*3/uL LAB HEMATOLOGY METHOD 08/31/2025 9:23 AM EST [facility] Blood Venous blood specimen / Unknown Venipuncture / Unknown 08/31/2025 8:36 AM EST 08/31/2025 9:16 AM EST Narrative [facility] - 08/31/2025 9:23 AM EST Therapeutic decision making should be based on absolute values, rather than percentages. us Chente Sebastian MD LAB BLOOD ORDERABLES Final Res ult [facility] [address] [place] [address] * (ABNORMAL) Comprehensive metabolic panel (08/31/2025 8:36 AM [facility]) Only the most recent of4 resultswithin the time period is included. Glucose, Plasma 96 74 - 99 mg/dL 08/31/2025 9:27 AM [facility] BUN, Plasma 10 8 - 23 mg/dL 08/31/2025 9:27 AM [facility] Creatinine, Plasma 0.59(L) 0.60 - 1.10 mg/dL 08/31/2025 9:27 AM [facility] BUN/Creatinine Ratio 17 08/31/2025 9:27 AM [facility] Sodium, Plasma 140 136 - 145 mmol/L 08/31/2025 9:27 AM [facility] Potassium, Plasma 3.3(L) 3.6 - 4.9 mmol/L 08/31/2025 9:27 AM [facility] Chloride, Plasma 105 97 - 107 mmol/L 08/31/2025 9:27 AM [facility] CO2, Plasma 25 22 - 29 mmol/L 08/31/2025 9:27 AM [facility] Anion Gap 10 6 - 16 mmol/L 08/31/2025 9:27 AM [facility] Total Calcium, Plasma 9.3 8.9 - 10.2 mg/dL 08/31/2025 9:27 AM [facility] Total Protein 6.5 6.3 - 7.9 g/dL 08/31/2025 9:27 AM [facility] Albumin, Plasma 3.9 3.5 - 5.2 g/dL 08/31/2025 9:27 AM [facility] AST, Plasma 14 10 - 35 U/L 08/31/2025 9:27 AM [facility] ALT, Plasma 11 10 - 35 U/L 08/31/2025 9:27 AM [facility] Alkaline Phosphatase, Plasma 59 46 - 142 U/L 08/31/2025 9:27 AM [facility] Total Bilirubin, Plasma 0.5 0.2 - 1.1 mg/dL 08/31/2025 9:27 AM [facility] eGFRcr 98.9 mL/min/1.7 3m*2 08/31/2025 9:27 AM EST [facility] Comment:Reported eGFRcr in m L/min/1.73m2 is based the CKD-EPI 2020 equation that does not use a race coefficient. Blood Venous blood specimen / Unknown Venipuncture / Unknown 08/31/2025 8:36 AM EST 08/31/2025 8:57 AM EST us Chente Sebastian MD LAB BLOOD ORDERABLES Final Res ult Performing Organization Address City/[facility]/ZIP Co de Phone Number [facility] [address] [place] [address] * T3, Serum (08/10/2025 2:20 PM EST) Only the most recent of2 resultswithin the time period is included. T3, Serum 105 87 - 187 ng/dL 08/10/2025 3:12 PM EST [facility] Blood Venous blood specimen / Unknown Venipuncture / Unknown 08/10/2025 2:20 PM EST 08/10/2025 2:35 PM EST us Chente Sebastian MD LAB BLOOD ORDERABLES Final Res ult Performing Organization Address [facility] de Phone Number [facility] [address] [place] [address] * APTT (08/10/2025 2:20 PM EST) Only the most recent of2 resultswithin the time period is included. aPTT 27 25 - 35 sec LAB COAGULATION METHOD 08/10/2025 3:07 PM EST [facility] Blood Venous blood specimen / Unknown Venipuncture / Unknown 08/10/2025 2:20 PM EST 08/10/2025 2:35 PM EST us Chente Sebastian MD LAB BLOOD ORDERABLES Final Res ult Performing Organization Address City/[facility] Co de Phone Number [facility] [address] [place] [address] * (ABNORMAL) Prothrombin Time/INR (08/10/2025 2:20 PM EST) Only the most recent of2 resultswithin the time period is included. Prothrombin Time 15.6(H) 12.0 - 14.3 sec LAB COAGULATION METHOD 08/10/2025 3:07 PM EST [facility] [facility] INR 1.2(H) 0.9 - 1.1 LAB COAGULATION METHOD 08/10/2025 3:07 PM EST [facility] Blood Venous blood specimen / Unknown Venipuncture / Unknown 08/10/2025 2:20 PM EST 08/10/2025 2:35 PM EST Narrative [facility] - 08/10/2025 3:07 PM EST OPTIMAL INR RANGES FOR PATIENT ON ORAL ANTICOAGULANT THERAPY Prevention of venous thromboembolism INR 2.0 to 3.0 In patients with heart disease: Atrial fibrillation INR 2.0 to 3.0 Valvular heart disease INR 2.0 to 3.0 Tissue heart valves INR 2.0 to 3.0 Mechanical prosthetic valves INR 2.5 to 3.5 Prevention of recurrent [place] INR 2.5 to 3.5 us Chente Sebastian MD LAB BLOOD ORDERABLES Final Res ult Performing Organization Address City/[facility]/ZIP Co de Phone Number [facility] [address] [place] [address] * TSH (08/10/2025 2:20 PM EST) Only the most recent of2 resultswithin the time period is included. Thyroid Stimulating Hormone, Plasma 2.20 0.40 - 4.20 uIU/mL 08/10/2025 3:12 PM EST [facility] Blood Venous blood specimen / Unknown Venipuncture / Unknown 08/10/2025 2:20 PM EST 08/10/2025 2:35 PM EST Chente Sebastian MD LAB BLOOD ORDERABLES Final Res ult [facility] [address] [place] [address] * T4, free (08/10/2025 2:20 PM EST) Only the most recent of2 resultswithin the time period is included. Free T4, Plasma 1.2 0.8 - 1.7 ng/dL 08/10/2025 3:12 PM EST [facility] Blood Venous blood specimen / Unknown Venipuncture / Unknown 08/10/2025 2:20 PM EST 08/10/2025 2:35 PM EST us Chente Sebastian MD LAB BLOOD ORDERABLES Final Res ult [facility] [address] [place] [address] * MR Head w and wo IV [...] error, please notify the sender immediately at [phone] and permanently delete the original report and destroy any copies or printouts. Narrative 08/11/2025 7:33 AM EST [facility] - Phone Outpatient NAME: Herminia Murrell DATE OF EXAM: 08/10/2025 Patient No: [id number] Physician: Lowell^Olivia^Bethanie Date of : 1960 Past Medical/Surgical History (entered by technologist): Symptoms/Reason For Exam (entered by technologist): Brain/BOX CUTTER neoplasm, assess treatment response Tech Notes (entered [...] Murrell DATE OF EXAM: 08/10/2025 Patient No: [id number] Physician: Lowell^Olivia^Bethanie Date of : 1960 Past Medical/Surgical History (entered by technologist): Symptoms/Reason For Exam (entered by technologist): Brain/BOX CUTTER neoplasm,assess treatment response Tech Notes (entered by [...] in error, pleasenotify the sender immediately at [phone] and permanently delete theoriginal report and destroy any copies or printouts. us Olivia Etienne APRN, [facility] MRI PROCEDURES Final Result * Radiology Research Report Request Other; ELAINEO 2.0 (08/10/2025 12:00 AM EST) Anatomical Region [...] Research Study Name: [id number] Name of the Cathead Operator: Dr. Chente Sebastian Correspondence email: [email or web address] Was this trial started before Sep 10, 2022? [facility] Manual release only [2] Reason [...] a Simple research read. Chente Sebastian MD [facility] RESEARCH ORDERABLES Edited Result - Final * VAS US Venous Duplex Lower Extremity [...] - Both Eyes (06/11/2025 4:11 PM EDT) Average RNFL Today (OS) 98 um OPHTHALMOLOGY [...] OPHTH VISUAL FIELD Final Re sult * (ABNORMAL) Hemoglobin A1c (02/19/2025 4:17 PM EDT) Hemoglobin A1c 5.7(H) <5.7 % 02/19/2025 5:20 PM EDT [facility] Blood Venous blood specimen / Unknown Venipuncture / Unknown 02/19/2025 4:17 PM EDT 02/19/2025 4:49 PM EDT Narrative [facility] - 02/19/2025 5:20 PM EDT HA1C Interpretive Data: Diagnosis of Diabetes: Diabetic > or = 6.5% Pre-diabetic 5.7 to 6.4% Non-diabetic < or = 5.6% Glycemic Targets for Type I and Type II Diabetics: Non- Adults <7.0% Adults <6.0% Children and Adolescents <7.5% Source: [place] [employer]. Standards of medical care in diabetes,2017. Diabetes Care.2017:40 (suppl 1):S1-S135. Anaya Felton RAILROAD ENGINEER LAB BLOOD ORDERABLES Final R esult [facility] [address] [place] [address] * Hepatitis C Antibody - ED (09/22/2024 10:51 AM EST) Hepatitis C Antibody Negative Negative 09/22/2024 11:45 AM EST [facility] Blood Venous blood specimen / Unknown Venipuncture / Unknown 09/22/2024 10:51 AM EST 09/22/2024 11:04 AM EST us Kami Amin DO LAB BLOOD ORDERABLES Final Re sult [facility] [address] [place] [address] from Last 3 Months or Most Recently Relevant to Health Maintenance Insurance [facility] MEDIC[facility] Advance Directives * Full Code (Latest [...] Patient has decision-making capacity? 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
--- NOTE | 2025-09-02 10:55 | CT_ITS ---
FINAL REPORT TECHNIQUE: IV contrast enhanced exam This study was performed with techniques to keep radiation doses as low as reasonably achievable, (ALARA). Individualized dose reduction techniques using automated exposure control or adjustment of mA and/or kV according to the patient''s size were employed. CLINICAL HISTORY: abdominal pain COMPARISON: 08/22/2025 FINDINGS: Abdomen: No acute density is seen within the lung bases. The gallbladder is unremarkable. Solid abdominal organs are unremarkable. No bowel obstruction is present. There is no evidence of bowel wall thickening. There is questionable wall thickening of the distal transverse colon and left colon, could represent colitis versus pseudo wall thickening from under distention. Lack of contrast limits assessment. There is no free air. No fluid collection is seen. There is no adenopathy. Pelvis: There is a tiny umbilical hernia containing fat. The appendix is normal. There is wall thickening of the descending colon extending to involve the sigmoid colon. The uterus and ovaries are unremarkable. There is no free fluid. No pelvic mass is seen. IMPRESSION: No evidence of bowel obstruction. Questionable wall thickening of the left colon versus under distention. Mild colitis is not excluded. Reviewed, Interpreted and Dictated by Norman Hurley MD Transcribed by Aleyda Herrera Authenticated and [facility]
--- NOTE | 2025-09-02 11:09 | ED_ITS ---
<Statement entered by Joey Hdz MD - 09/02/25 15:49> Joey Hdz MD: I was consulted by the JJ, and we discussed the complexity of the problems being addressed. I approve the treatment and management plan for this patient's care in the emergency department, thus performing a substantive portion of the medical decision making. Discharge Plan Disposition Chief Complaint: Nausea/Vomiting/Diarrhea Prescriptions Prescriptions: No Action levetiracetam 500 mg tablet 500 mg PO BID atorvastatin 40 mg tablet 40 mg PO DAILY methylphenidate HCl 20 mg tablet 20 mg PO BID temozolomide 140 mg capsule PO dicyclomine 10 mg capsule 10 mg PO BID Qty: 60 2RF ondansetron HCl 8 mg tablet 8 mg PO TIDP PRN (Reason: Nausea And Vomiting) Eliquis 5 mg tablet 5 mg PO BID sertraline 25 mg tablet 25 mg PO DAILY Qty: 90 3RF Rx Instructions: to be taken with the 50mg dose lisinopril 20 mg tablet 20 mg PO DAILY omeprazole 20 mg capsule,delayed release(DR/EC) 20 mg PO HS sertraline 50 mg tablet 50 mg PO DAILY Rx Instructions: TO BE TAKEN WITH 25 MG TABLET olanzapine 5 mg Tablet,Disintegrating 5 mg sublingual Q8HP PRN (Reason: Nausea And Vomiting) 5 Days Qty: 10 0RF Referrals Follow up/Referrals: Mike Shaffer DO [Primary Care Provider, Family Practice] - See instructions Instructions Patient Instructions: DI for Diarrhea and Traveler's Diarrhea in Adults, DI for Diarrhea and Traveler's Diarrhea in Children, DI for Nausea in Adults, DI for Nausea in Children Print Language Print Language: Occitan Discharge ED Provider: Joey Hdz General Adult HPI General Chief complaint: Nausea/Vomiting/Diarrhea Stated complaint: vomiting abd pain Time Seen by Provider: 09/02/25 10:38 Mode of Arrival: Ambulatory Source of Information: Patient and Relative Description of Symptoms (Recalled from ER Triage Doc. by RN): pt is a brain cancer patient that gets treatment at and is here today for n/v and abd pain that started last night and she has been unable to get it under control with po zofran History of Present Illness HPI narrative: 65-year-old female presents to the ED today for complaint of nausea, vomiting and abdominal pain. She has been unable to get her vomiting under control since about midnight. She says abdominal pain also started about then. She has taken Zofran at 1 and still continues to vomit. She has history of brain cancer that she has currently getting treatment at for. She gets Keytruda at this time. She does have blood clots in her right arm and leg currently she has no current fevers. According to chart review she has a glioblastoma which she has surgery for. Related Data Home Medications ?Medication ?Instructions ?Recorded ?Confirmed levetiracetam 500 mg tablet 500 mg PO BID 10/01/24 apixaban 5 mg tablet (Eliquis) 5 mg PO BID 06/05/25 ondansetron HCl 8 mg tablet 8 mg PO TIDP PRN Nausea An d 06/05/25 08/27/25 Vomiting lisinopril 20 mg tablet 20 mg PO DAILY 08/22/2508/10 omeprazole 20 mg capsule,delayed 20 mg PO HS 08/22/25 08/27/25 release sertraline 50 mg tablet 50 mg PO DAILY 08/22/2508/10 atorvastatin 40 mg tablet 40 mg PO DAILY 08/27/2508/10 methylphenidate HCl 20 mg tablet 20 mg PO BID 08/27/25 08/27/25 temozolomide 140 mg capsule mg PO 08/27/25 08/27/25 Previous Rx's ?Medication ?Instructions ?Recorded sertraline 25 mg tablet 25 mg PO DAILY #90 tabs 11/04 olanzapine 5 mg disintegrating 5 mg sublingual Q8HP VT N Nausea 08/23/25 tablet And Vomiting 5 days #10 tabs dicyclomine 10 mg capsule 10 mg PO BID #60 caps Allergies Allergy/AdvReac Type Severity Reaction Status Date / Time codeine (CODEINE) Allergy Mild Other Verified 08/27/25 15:36 [facility] Disclaimer: The information contained in this section may have been updated after the patient was seen, as this information can be updated by other users. Medical History DVT (deep venous thrombosis) Tinnitus of both ears Tinnitus Calcaneal spur of both feet History of fracture of right ankle Acquired pes planus of both feet Primary osteoarthritis of both feet Foot pain Surgical History H/O breast biopsy Family History Other Family history of stroke Social History Smoking Status: Never smoker second hand exposure: No alcohol intake: current alcohol intake frequency: 0-2 drinks per day substance use type: denies use current occupational status: other Travel in the last 8 weeks?: None household members: none housing: house current occupation: [employer] current occupational exposures/hazards: No caffeine: Yes Have you lived/traveled outside US in past 30 days?: No Contact w/someone who lives/traveled outside US past 30 days?: No Exposure to someone with infectious disease in past 14 days?: No Do you have a fever (greater than 100.4 F or 38 C)?: No Have you tested positive for COVID-19?: No Exposed to someone with COVID-19 in past 14 days?: No Do you have a sore throat?: No Do you have a cough?: No Do you have any weakness?: Yes Do you have any diarrhea?: No Are you experiencing any unusual bleeding?: No Do you have any muscle aches/pain?: No Do you have any abdominal pain?: Yes Are you experiencing loss of taste or smell?: No Other Medical History Have you received the Flu Vaccine for this season: No Have you received the Pneumonia Vaccine: Yes ROS Obtained: Yes Systems reviewed as appropriate & no additional complaints except as documented Constitutional Constitutional: Reports as per HPI Physical Exam General General appearance: alert and in distress Head Head exam: normocephalic Eye Eye exam: Present PERRL and EOMI ENT ENT exam: Present mucous membranes dry Neck Neck exam: Present full ROM Respiratory Respiratory exam: Present normal lung sounds bilaterally Cardiovascular Cardiovascular exam: Present regular rate and normal rhythm Abdominal Exam Abdominal exam: Present soft and normal bowel sounds Extremities Exam Extremities exam: Present full ROM Neurological Exam Neurological exam: Present alert and oriented X3 Skin Skin exam: Present warm and dry Medical Decision Making Medical Records Screening: Per USPSTF and CDC recommendations, given the prevalence of disease in our region, it is our hospital?s policy to screen for HIV and viral Hepatitis for all patients aged 18 and over and those with ongoing risk factors. Timmy Inquiry Pt receiving controlled substance: No Timmy was queried for this patient: No Vital Signs: 09/02/25 10:31 09/02/25 10:40 09/02/25 11:00 Temperature 98.7 F Temperature Source Oral Pulse Rate 82 79 Pulse Rate [Left Radial] 84 Respiratory Rate 20 Blood Pressure 173/88 H 184/83 H Blood Pressure [Right Arm] 173/88 H Blood Pressure Mean Blood Pressure Mean [Right Arm] 116 02 Sat by Pulse Oximetry 96 94 L 95 Oxygen Delivery Method Room Air 09/02/25 12:00 09/02/25 12:45 09/02/25 13:00 Temperature Temperature Source Pulse Rate 79 84 90 Pulse Rate [Left Radial] Respiratory Rate 16 17 17 Blood Pressure 192/89 H 203/83 H 192/86 H Blood Pressure [Right Arm] Blood Pressure Mean Blood Pressure Mean [Right Arm] 02 Sat by Pulse Oximetry 97 96 97 Oxygen Delivery Method Room Air 09/02/25 13:30 09/02/25 13:54 09/02/25 14:00 Temperature Temperature Source Pulse Rate 95 H 100 H 85 Pulse Rate [Left Radial] Respiratory Rate 18 16 16 Blood Pressure 215/90 H 177/78 H 182/85 H Blood Pressure [Right Arm] Blood Pressure Mean 118 111 121 Blood Pressure Mean [Right Arm] 02 Sat by Pulse Oximetry 96 96 96 Oxygen Delivery Method Room Air Room Air Room Air Lab Data Lab Results 09/02/25 11:30: WBC 6.6, RBC 4.25, Hgb 12.1 L, Hct 36.6 L, MCV 86.1, MCH 28.5, MCHC 33.1, RDW 14.5, Plt Count 204, MPV 9.5, Neut % (Auto) 91.1 H, Lymph % (Auto) 6.3 L, Thurston % (Auto) 2.0, Eos % (Auto) 0.0 L, Baso % (Auto) 0.3, Neut # (Auto) 6.0, Lymph # (Auto) 0.4 L, Thurston # (Auto) 0.1, Eos # (Auto) 0.0, Baso # (Auto) 0.0, Total Counted 100, Neutrophils % (Manual) 92 H, Lymphocytes % (Manual) 6 L, Monocytes % (Manual) 2, Platelet Estimate Normal, RBC Morphology Normal, Sodium 139, Potassium 4.3, Chloride 105, Carbon Dioxide 21 L, Anion Gap 17.3 H, BUN 8, Creatinine 0.70, Estimated Creat Clear 78, Estimated GFR 83, Est GFR ( Amer) 101, Glucose 133 H, Calcium 9.3, Magnesium 1.8, Total Bilirubin 0.9, AST 44 H, ALT 18, Alkaline Phosphatase 74, Total Protein 7.6 D, Albumin 4.6, Globulin 3.0, Albumin/Globulin Ratio 1.5, Lipase 46 09/02/25 11:30 09/02/25 11:30 Orders (Tests/Meds): ED MEDICATIONS Discontinued Medications Generic Name Dose Route Start Last Admin Trade Name Freq PRN Reason Stop Dose Admin Diphenhydramine HCl 50 mg 09/02/25 13:27 09/02/25 13:48 Diphenhydramine 50mg/Ml Vial IV 09/02/25 13:28 50 mg ONCE ONE Administration Droperidol 2.5 mg 09/02/25 10:47 09/02/25 11:32 Droperidol 5mg/2ml Vial IV 09/02/25 10:48 2.5 mg ONCE ONE Administration Sodium Chloride 1,000 mls @ 999 mls/hr 09/02/25 10:47 09/02/25 13:54 Sod Chlor 0.9% 1000ml Bag IV 09/02/25 11:47 Infused .Q1H1M ONE Infusion Sodium Chloride 1,000 mls @ 999 mls/hr 09/02/25 14:30 09/02/25 15:06 Sod Chlor 0.9% 1000ml Bag IV 09/02/25 15:30 999 mls/hr .Q1H1M ONE Administration Lisinopril 20 mg 09/03/25 09:00 09/02/25 13:58 Lisinopril 10mg Tablet PO 10/03/25 08:59 20 mg DAILY RAJ Administration Olanzapine 5 mg 09/02/25 12:45 09/02/25 12:45 Olanzapine 5 Mg Odt Tablet SL 09/02/25 12:46 5 mg ONCE ONE Administration Prochlorperazine Edisylate 5 mg 09/02/25 13:27 09/02/25 13:48 Prochlorperazine 10mg/2ml Vial IV 09/02/25 13:28 5 mg ONCE ONE Administration ORDERS Category Date Time Status CT abdomen pelvis wo con Stat Cat Scan 09/02/25 10:55 Completed CBC [Complete Blood Count Auto Diff] Stat Lab 09/02/25 11:30 Completed Comprehensive Metabolic Panel Stat Lab 09/02/25 11:30 Completed Lipase Stat Lab 09/02/25 11:30 Completed Magnesium Stat Lab 09/02/25 11:30 Completed Urinalysis and Microscopic Stat Lab 09/02/25 10:55 Ordered Medical Decision Narrative: patient is a 65-year-old female presenting to the emergency department for evaluation of nausea vomiting and abdominal pain. Patient is hemodynamically stable and nontoxic-appearing upon arrival, afebrile. Differential diagnosis includes intractable nausea vomiting related to cancer, obstruction, among others. Workup will be conducted with hematologic labs, specific imaging, provocative tests. Initial inventions include crystalloid bolus, analgesics. Initial workup reviewed by me hematologic labs are remarkable for . 6.6 white count hemoglobin 12.1, hematocrit 36.6, potassium was 4.3, BUN 8 creatinine was 0.70, mag was 1.8. CT scan showed colitis read by radiology. Patient is dry heaving when I go in the room. She has already had Zyprexa and droperidol. I just ordered Benadryl and Compazine. Critical Care Critical Care Time Critical Care Time: No
--- NOTE | 2025-09-02 11:15 | ECG_ITS ---
APPROVED REPORT Exam: Resting ECG HR:80 bpm ECG Measurements Heart Rate 80 AXES GA 182 P 34 QRSd 79 QRS 30 QT 356 T 29 QTc 392 Conclusion SINUS RHYTHM NORMAL ECG UNCONFIRMED REPORT Normal sinus rhythm. No STEMI Electronically signed by : NAVEED CARCAMO, 09/02/2025 15:59:26
[2025-09-02] MEDS: 0.9 % SODIUM CHLORIDE 1000ML 1,000 ML 999 ML IV ×2 (11:31→15:06)
[2025-09-02] MEDS: droPERidol 5MG/2ML VIAL 2.5 MG IV (11:32)
[2025-09-02 11:39] LABS: Hematocrit 36.6 % (37.0-47.0); Hemoglobin 12.1 g/dL (12.2-16.2); Immature Granulocytes % 0.3 %; Mean Corpuscular HGB Conc 33.1 g/dL (31.8-35.4); Mean Corpuscular Hemoglobin 28.5 pg (27.0-31.2); Mean Corpuscular Volume 86.1 fl (81-99); Nucleated Red Blood Cells % 0 %; Platelet Count 204 K/mm3 (142-424); Red Blood Count 4.25 M/mm3 (4.20-5.40); Red Cell Distribution Width-SD 45.4 fL; White Blood Count 6.6 K/mm3 (4.8-10.8)
[2025-09-02 11:41] LABS: Albumin Level 4.6 g/dl (3.5-5.0); Chloride 105 mmol/L (98-107)
[2025-09-02 11:42] LABS: Potassium 4.3 mmoL/L (3.5-5.1); Sodium 139 mmol/L (136-145)
[2025-09-02 11:44] LABS: Alanine Aminotransferase 18 U/L (12-78); Alkaline Phosphatase 74 U/L (38-126); Anion Gap 17.3 mEq/L (5-15); Aspartate Amino Transferase 44 U/L (14-36); Bilirubin,Total 0.9 mg/dl (0.2-1.3); Blood Urea Nitrogen 8 mg/dl (7-17); Carbon Dioxide 21 mmol/L (22.0-30.0); Creatinine Clearance Estimated 78 mL/min (50-200); Creatinine,Serum 0.70 mg/dl (0.52-1.04); Estimated Glomerular Filt Rate 83 ml/min (>60); GFR (African American) 101 ML/MIN (>60)
[2025-09-02 11:45] LABS: Albumin/Globulin Ratio 1.5 (1.1-1.8); Calcium 9.3 mg/dl (8.4-10.2); Globulin 3.0 g/dL (1.3-3.2); Glucose 133 mg/dl (74-100); Lipase 46 U/L (23-300); Magnesium 1.8 mg/dl (1.6-2.3); Total Protein,Serum 7.6 g/dl (6.3-8.2)
[2025-09-02 12:40] LABS: RBC Morphology Normal; Total Cells Counted 100
[2025-09-02] MEDS: OLANZapine 5 MG ODT TABLET SL (12:45)
[2025-09-02] MEDS: PROCHLORPERAZINE 10MG/2ML VIAL 5 MG IV (13:48)
[2025-09-02] MEDS: LISINOPRIL 10MG TABLET 20 MG PO (13:58)
--- NOTE | 2025-09-02 16:32 | ED_ITS ---
<Statement entered by Joey Hdz MD - 09/04/25 07:01> Joey Hdz MD: I was consulted by the JJ, and we discussed the complexity of the problems being addressed. I approve the treatment and management plan for this patient's care in the emergency department, thus performing a substantive portion of the medical decision making. Discharge Plan Disposition Chief Complaint: Nausea/Vomiting/Diarrhea Prescriptions Prescriptions: No Action levetiracetam 500 mg tablet 500 mg PO BID atorvastatin 40 mg tablet 40 mg PO DAILY methylphenidate HCl 20 mg tablet 20 mg PO BID temozolomide 140 mg capsule PO dicyclomine 10 mg capsule 10 mg PO BID Qty: 60 2RF ondansetron HCl 8 mg tablet 8 mg PO TIDP PRN (Reason: Nausea And Vomiting) Eliquis 5 mg tablet 5 mg PO BID sertraline 25 mg tablet 25 mg PO DAILY Qty: 90 3RF Rx Instructions: to be taken with the 50mg dose lisinopril 20 mg tablet 20 mg PO DAILY omeprazole 20 mg capsule,delayed release(DR/EC) 20 mg PO HS sertraline 50 mg tablet 50 mg PO DAILY Rx Instructions: TO BE TAKEN WITH 25 MG TABLET olanzapine 5 mg Tablet,Disintegrating 5 mg sublingual Q8HP PRN (Reason: Nausea And Vomiting) 5 Days Qty: 10 0RF Referrals Follow up/Referrals: Mike Shaffer DO [Primary Care Provider, Family Practice] - See instructions Instructions Patient Instructions: DI for Diarrhea and Traveler's Diarrhea in Adults, DI for Diarrhea and Traveler's Diarrhea in Children, DI for Nausea in Adults, DI for Nausea in Children Print Language Print Language: Welsh Discharge ED Provider: Joey Hdz General Adult HPI General Chief complaint: Nausea/Vomiting/Diarrhea Stated complaint: vomiting abd pain Time Seen by Provider: 09/02/25 10:38 Mode of Arrival: Ambulatory Source of Information: Patient and Relative Description of Symptoms (Recalled from ER Triage Doc. by RN): pt is a brain cancer patient that gets treatment at and is here today for n/v and abd pain that started last night and she has been unable to get it under control with po zofran History of Present Illness HPI narrative: 65-year-old female presents to the ED for complaint of nausea, vomiting and abdominal pain that started about midnight. She has been unable to get it under control with her Zofran that she has at home. She is receiving treatment via a . She has DVTs in her right arm and leg. Related Data Home Medications ?Medication ?Instructions ?Recorded ?Confirmed levetiracetam 500 mg tablet 500 mg PO BID 10/01/24 apixaban 5 mg tablet (Eliquis) 5 mg PO BID 06/05/25 ondansetron HCl 8 mg tablet 8 mg PO TIDP PRN Nausea An d 06/05/25 08/27/25 Vomiting lisinopril 20 mg tablet 20 mg PO DAILY 08/22/2508/10 omeprazole 20 mg capsule,delayed 20 mg PO HS 08/22/25 08/27/25 release sertraline 50 mg tablet 50 mg PO DAILY 08/22/2508/10 atorvastatin 40 mg tablet 40 mg PO DAILY 08/27/2508/10 methylphenidate HCl 20 mg tablet 20 mg PO BID 08/27/25 08/27/25 temozolomide 140 mg capsule mg PO 08/27/25 08/27/25 Previous Rx's ?Medication ?Instructions ?Recorded sertraline 25 mg tablet 25 mg PO DAILY #90 tabs 11/04 olanzapine 5 mg disintegrating 5 mg sublingual Q8HP TX N Nausea 08/23/25 tablet And Vomiting 5 days #10 tabs dicyclomine 10 mg capsule 10 mg PO BID #60 caps Allergies Allergy/AdvReac Type Severity Reaction Status Date / Time codeine (CODEINE) Allergy Mild Other Verified 08/27/25 15:36 [facility] Disclaimer: The information contained in this section may have been updated after the patient was seen, as this information can be updated by other users. Medical History DVT (deep venous thrombosis) Tinnitus of both ears Tinnitus Calcaneal spur of both feet History of fracture of right ankle Acquired pes planus of both feet Primary osteoarthritis of both feet Foot pain Surgical History H/O breast biopsy Family History Other Family history of stroke Social History Smoking Status: Never smoker second hand exposure: No alcohol intake: current alcohol intake frequency: 0-2 drinks per day substance use type: denies use current occupational status: other Travel in the last 8 weeks?: None household members: none housing: house current occupation: [employer] current occupational exposures/hazards: No caffeine: Yes Have you lived/traveled outside [place] in past 30 days?: No Contact w/someone who lives/traveled outside [place] past 30 days?: No Exposure to someone with infectious disease in past 14 days?: No Do you have a fever (greater than 100.4 F or 38 C)?: No Have you tested positive for COVID-19?: No Exposed to someone with COVID-19 in past 14 days?: No Do you have a sore throat?: No Do you have a cough?: No Do you have any weakness?: Yes Do you have any diarrhea?: No Are you experiencing any unusual bleeding?: No Do you have any muscle aches/pain?: No Do you have any abdominal pain?: Yes Are you experiencing loss of taste or smell?: No Other Medical History Have you received the Flu Vaccine for this season: No Have you received the Pneumonia Vaccine: Yes ROS Obtained: Yes Systems reviewed as appropriate & no additional complaints except as documented Constitutional Constitutional: Reports as per HPI Physical Exam General General appearance: alert and in distress Head Head exam: normocephalic Eye Eye exam: Present PERRL and EOMI ENT ENT exam: Present mucous membranes dry Respiratory Respiratory exam: Present normal lung sounds bilaterally Cardiovascular Cardiovascular exam: Present regular rate Abdominal Exam Abdominal exam: Present soft and normal bowel sounds Extremities Exam Extremities exam: Present full ROM Neurological Exam Neurological exam: Present alert and oriented X3 Skin Skin exam: Present warm and dry Medical Decision Making Medical Records Screening: Per USPSTF and CDC recommendations, given the prevalence of disease in our region, it is our hospital?s policy to screen for HIV and viral Hepatitis for all patients aged 18 and over and those with ongoing risk factors. Timmy Inquiry Pt receiving controlled substance: No Timmy was queried for this patient: No Vital Signs: 09/02/25 10:31 09/02/25 10:40 09/02/25 11:00 Temperature 98.7 F Temperature Source Oral Pulse Rate 82 79 Pulse Rate [Left Radial] 84 Respiratory Rate 20 Blood Pressure 173/88 H 184/83 H Blood Pressure [Right Arm] 173/88 H Blood Pressure Mean Blood Pressure Mean [Right Arm] 116 02 Sat by Pulse Oximetry 96 94 L 95 Oxygen Delivery Method Room Air 09/02/25 12:00 09/02/25 12:45 09/02/25 13:00 Temperature Temperature Source Pulse Rate 79 84 90 Pulse Rate [Left Radial] Respiratory Rate 16 17 17 Blood Pressure 192/89 H 203/83 H 192/86 H Blood Pressure [Right Arm] Blood Pressure Mean Blood Pressure Mean [Right Arm] 02 Sat by Pulse Oximetry 97 96 97 Oxygen Delivery Method Room Air 09/02/25 13:30 09/02/25 13:54 09/02/25 14:00 Temperature Temperature Source Pulse Rate 95 H 100 H 85 Pulse Rate [Left Radial] Respiratory Rate 18 16 16 Blood Pressure 215/90 H 177/78 H 182/85 H Blood Pressure [Right Arm] Blood Pressure Mean 118 111 121 Blood Pressure Mean [Right Arm] 02 Sat by Pulse Oximetry 96 96 96 Oxygen Delivery Method Room Air Room Air Room Air Lab Data Lab Results 09/02/25 11:30: WBC 6.6, RBC 4.25, Hgb 12.1 L, Hct 36.6 L, MCV 86.1, MCH 28.5, MCHC 33.1, RDW 14.5, Plt Count 204, MPV 9.5, Neut % (Auto) 91.1 H, Lymph % (Auto) 6.3 L, [place] % (Auto) 2.0, Eos % (Auto) 0.0 L, Baso % (Auto) 0.3, Neut # (Auto) 6.0, Lymph # (Auto) 0.4 L, [place] # (Auto) 0.1, Eos # (Auto) 0.0, Baso # (Auto) 0.0, Total Counted 100, Neutrophils % (Manual) 92 H, Lymphocytes % (Manual) 6 L, Monocytes % (Manual) 2, Platelet Estimate Normal, RBC Morphology Normal, Sodium 139, Potassium 4.3, Chloride 105, Carbon Dioxide 21 L, Anion Gap 17.3 H, BUN 8, Creatinine 0.70, Estimated Creat Clear 78, Estimated GFR 83, Est GFR ( Amer) 101, Glucose 133 H, Calcium 9.3, Magnesium 1.8, Total Bilirubin 0.9, AST 44 H, ALT 18, Alkaline Phosphatase 74, Total Protein 7.6 D, Albumin 4.6, Globulin 3.0, Albumin/Globulin Ratio 1.5, Lipase 46 09/02/25 11:30 09/02/25 11:30 Orders (Tests/Meds): ED MEDICATIONS Discontinued Medications Generic Name Dose Route Start Last Admin Trade Name Matiq PRN Reason Stop Dose Admin Diphenhydramine HCl 50 mg 09/02/25 13:27 09/02/25 13:48 Diphenhydramine 50mg/Ml Vial IV 09/02/25 13:28 50 mg ONCE ONE Administration Droperidol 2.5 mg 09/02/25 10:47 09/02/25 11:32 Droperidol 5mg/2ml Vial IV 09/02/25 10:48 2.5 mg ONCE ONE Administration Sodium Chloride 1,000 mls @ 999 mls/hr 09/02/25 10:47 09/02/25 13:54 Sod Chlor 0.9% 1000ml Bag IV 09/02/25 11:47 Infused .Q1H1M ONE Infusion Sodium Chloride 1,000 mls @ 999 mls/hr 09/02/25 14:30 09/02/25 15:06 Sod Chlor 0.9% 1000ml Bag IV 09/02/25 15:30 999 mls/hr .Q1H1M ONE Administration Lisinopril 20 mg 09/03/25 09:00 09/02/25 13:58 Lisinopril 10mg Tablet PO 10/03/25 08:59 20 mg DAILY RAJ Administration Olanzapine 5 mg 09/02/25 12:45 09/02/25 12:45 Olanzapine 5 Mg Odt Tablet SL 09/02/25 12:46 5 mg ONCE ONE Administration Prochlorperazine Edisylate 5 mg 09/02/25 13:27 09/02/25 13:48 Prochlorperazine 10mg/2ml Vial IV 09/02/25 13:28 5 mg ONCE ONE Administration ORDERS Category Date Time Status CT abdomen pelvis wo con Stat Cat Scan 09/02/25 10:55 Completed CBC [Complete Blood Count Auto Diff] Stat Lab 09/02/25 11:30 Completed Comprehensive Metabolic Panel Stat Lab 09/02/25 11:30 Completed Lipase Stat Lab 09/02/25 11:30 Completed Magnesium Stat Lab 09/02/25 11:30 Completed Urinalysis and Microscopic Stat Lab 09/02/25 10:55 Ordered Medical Decision Narrative: patient is a 65-year-old female presenting to the emergency department for evaluation of nausea and vomiting secondary to cancer treatment. Patient is hemodynamically stable and unwell upon arrival, afebrile. Differential diagnosis includes nausea and vomiting due to cancer treatment, colitis, gastroenteritis, flu COVID among others. Workup will be conducted with hematologic labs, specific imaging. Initial inventions include crystalloid bolus, analgesics. Initial workup reviewed by me hematologic labs are remarkable for 6.6 white count, H&H were 12.1 and 36, potassium was 4.3, BUN was 8, creatinine 0.70 mag was 1.8, imaging showed CT scan of her abdomen pelvis showed no evidence of bowel obstruction and mild colitis. Patient has gotten 2 L of IV fluids, Compazine, Benadryl, droperidol, Zofran. She does feel improved after those medications. Patient is safe for discharge home. I discussed with family return precautions. Patient safe for discharge home Critical Care Critical Care Time Critical Care Time: No
== END 2025-09-02 17:22 | disposition home or self-care (01) ==
PROVIDERS: Nurse Practitioner; Emergency Provider Student in an Organized Health Care Education/Training Program; PCP Internal Medicine
DX: R10.9 Unspecified abdominal pain (principal); R11.2 Nausea with vomiting, unspecified; T45.1X5A Adverse effect of antineoplastic and immunosuppressive drugs, initial encounter; C71.9 Malignant neoplasm of brain, unspecified; Z86.718 Personal history of other venous thrombosis and embolism; Z79.01 Long term (current) use of anticoagulants; Z92.25 Personal history of immunosuppression therapy
CPT/HCPCS: 74176; 80053; 83690; 83735; 85007; 85025; 93005; 96361; 96374; 96375; 99285; J0780; J1200; J1790; J7030